=== PATIENT | male | born 1950 | race Caucasian/White ===

== ENCOUNTER 2016-10-09 10:40 | Inpatient (IN) | payer OTHER ==
[~2016-10-09] VITALS: Ht 177.8 cm; Wt 94.7 kg
[~2016-10-09 10:40] MED LIST: ALBUAER2 INH
[2016-10-09] MEDS ORDERED: FURO-85 PO (10:58)
[2016-10-09] MEDS ORDERED: MAGN400T6 PO (10:58)
[2016-10-09] MEDS ORDERED: ATEN-173 PO (10:58)
[2016-10-09] MEDS ORDERED: SIMV5TAB2 PO (10:58)
[2016-10-09] MEDS ORDERED: FENTANYL CITRATE INJ 50 MCG/1 ML 2 ML VIAL IV STA ×2 (11:09→13:35)
[2016-10-09 11:56] LABS: POINT OF CARE TROPONIN I < 0.030 ng/ml (0-0.045)
[2016-10-09 12:09] LABS: BASO % 0.2 %; BASO ABS # 0.02 K/uL (0-0.2); COMPLETE YES; IG% 0.2 %; LYMPH % 12.8 %; LYMPH ABS # 1.29 K/uL (1.2-3.4); MEAN CELL VOLUME 97.2 fL (80-100); MEAN CORPUSCULAR HEMOGLOBIN 29.9 pg (25-34); MEAN CORPUSCULAR HGB CONC 30.7 g/dl (32-36); MEAN PLATELET VOLUME 9.1 fL (7.4-10.4); MONO % 9.9 %; NEUT % 75.9 %; PLATELET COUNT 262 K/uL (130-400); RED BLOOD COUNT 4.32 M/uL (4.7-6.1); WHITE BLOOD COUNT 10.08 K/uL (4.8-10.8)
--- NOTE | 2016-10-09 12:13 | DIAGNOSTIC IMAGING REPORT ---
RIGHT RIBS UNILATERAL WITH PA CHEST CLINICAL HISTORY: ] Pain status post trauma COMPARISON STUDY: Chest x-ray dated 08/17/2009 FINDINGS: The erect chest reveals no pneumothorax. There is mild right hilar fullness. There are multiple bilateral pulmonary nodules. CT scanning is recommended in follow-up. No acute fractures are visualized. There is an old deformity the right sixth rib anteriorly. IMPRESSION: 1. No acute rib fractures identified 2. No evidence of pneumothorax 3. Multiple bilateral pulmonary nodules. CT scanning is recommended in follow-up. Electronically signed by: Sam Bradley M.D. 10/09/2016 12:12 PM Dictated Date/Time: 10/09/2016 12:08 PM
[2016-10-09 12:18] LABS: INR 1.2 (0.9-1.1); PARTIAL THROMBOPLASTIN RATIO 1.2; PROTHROMBIN TIME (PATIENT) 12.4 SECONDS (9.0-12.0)
[2016-10-09 12:42] LABS: CREATININE 0.58 mg/dl (0.60-1.40)
[2016-10-09 12:43] LABS: BUN/CREATININE RATIO 27.9 (10-20); CALCIUM 9.6 mg/dl (8.5-10.1); POTASSIUM 4.3 mmol/L (3.5-5.1)
[2016-10-09] MEDS ORDERED: OPTIRAY 320 IV PRN (12:45)
--- NOTE | 2016-10-09 15:14 | DIAGNOSTIC IMAGING REPORT ---
CT ANGIOGRAM OF THE CHEST CLINICAL HISTORY: Dyspnea. Fall with right-sided chest pain. COMPARISON STUDY: Chest CT dated 05/02/2010. TECHNIQUE: Following the IV administration of 93 cc of Optiray 320, CT angiogram of the chest was performed from the upper abdomen to the thoracic inlet utilizing the pulmonary embolus protocol. Images are reviewed in the axial, sagittal, and coronal planes. 3-D MIPS images are created and assessed. IV contrast was administered without complication. CT DOSE: 568.43 mGy.cm FINDINGS: Thyroid: Imaged portions of the thyroid gland are normal in size and attenuation. Thoracic aorta: There is atherosclerotic calcification of the thoracic aorta, which is normal in caliber and demonstrates standard 3-vessel arch anatomy. No dissection is seen. Pulmonary vasculature: The pulmonary trunk is markedly dilated, measuring 4.6 cm in diameter. This suggests pulmonary artery hypertension. There are filling defects within the left lower lobar pulmonary artery which extend in the segmental and subsegmental branches. This is consistent with pulmonary embolus. Segmental pulmonary emboli are also seen in the right lower lobe pulmonary artery on image #103. Heart: The heart is enlarged and without pericardial effusion. The coronary arteries are densely calcified. Lungs and pleural spaces: Emphysema is noted. Patchy airspace opacities are present in the left lower lobe. No pleural effusion is identified. Minimal secretions are seen in the trachea. There are numerous (greater than 30) irregular pulmonary and pleural-based nodules consistent with multifocal pulmonary metastatic disease. The largest lesion is present in the anterior right upper lobe adjacent to the pleura on image #209. This measures 3.8 x 1.9 cm adnexa appears to extend through the pleura. A pleural based lesion in the right upper lobe on image #217 measures 2.7 cm. Mediastinum: There are mildly enlarged mediastinal lymph nodes. The largest is seen in the AP window on image #193 and measures up to 1.3 cm in short axis. Annette: A right hilar lymph node/mass is seen on image #172 and measures 4.6 x 3.1 cm. No left hilar adenopathy is seen. Lower neck: There is no supraclavicular lymphadenopathy. Axillae: There is no axillary lymphadenopathy. Upper abdomen: A 1.9 cm cyst is seen in the upper pole of the right kidney. 1.5 cm cyst is seen in the upper pole of the left kidney. There is mild nodularity of the left adrenal gland. Skeletal structures: The skeletal structures are osteopenic. Degenerative changes seen throughout the thoracic spine. There is a permeative osteolytic lesion identified in the body of T5 with a mild pathologic fracture at this site. Tumor extends posteriorly from the T5 vertebral body and causes acquired compromise of the central canal. Osteolytic lesion is seen within the left transverse process of L1. There are osteolytic lesions with pathologic fracture seen involving the right posterior 11th rib and the left lateral 8th rib. Additional smaller osteolytic lesions are seen. IMPRESSION: 1. Findings are positive for pulmonary embolus. Small pulmonary emboli are seen within the distal left lower lobar pulmonary artery extending into segmental branches. A segmental pulmonary embolus is also seen within a branch of the right lower lobe pulmonary artery. 2. Cardiomegaly and advanced emphysema with evidence of pulmonary artery hypertension. 3. There are patchy airspace opacities at the left lung base. This could represent atelectasis versus a mild infectious/inflammatory pneumonitis. Clinical correlation will be required. 4. There are numerous (greater than 30) pulmonary and pleural-based lesions as above. The appearance is consistent with multifocal metastatic disease. 5. There is a 4.6 cm right hilar lymph node/perihilar mass. This could represent metastatic disease or a primary lesion. 6. Mildly enlarged mediastinal nodes are identified. 7. There are multiple osteolytic lesions identified consistent with metastatic disease. 8. A permeative osteolytic lesion is identified within the posterior aspect of T5. There is a mild pathologic compression fracture of T5, and tumor extends posteriorly from the T5 vertebral body with encroachment upon the central canal. 9. There are pathologic fractures of the right posterior 11th and the left lateral 8th ribs. 10. Additional findings as above. Electronically signed by: Marquez Cha M.D. 10/09/2016 3:13 PM Dictated Date/Time: 10/09/2016 2:52 PM
--- NOTE | 2016-10-09 17:02 | DIAGNOSTIC IMAGING REPORT ---
ULTRASOUND BILATERAL LOWER EXTREMITY VENOUS CLINICAL HISTORY: Hypoxia. COMPARISON STUDY: No priors. TECHNIQUE: Real-time, grayscale, and color Doppler sonography of the deep veins of the right and left lower extremity was performed from the inguinal crease to the calf. Compression and augmentation were utilized. FINDINGS: There is no sonographic evidence of acute deep venous thrombosis identified in the right or left lower extremity. Trace echogenic chronic thrombus is identified within the common femoral vein bilaterally. The common femoral, superficial femoral, and popliteal veins are patent and normally compressible bilaterally. The greater saphenous vein and the profunda femoris vein at the junction with the common femoral vein are clear in both legs. The visualized calf veins are patent bilaterally. There is a multiloculated popliteal cyst on the right. The loculations measure 3.6 x 1.6 x 3.3 cm and 3.1 x 1.5 x 2.4 cm. IMPRESSION: 1. There is no sonographic evidence of acute deep venous thrombosis identified in the right or left lower extremity. 2. Trace echogenic chronic thrombus is seen within the common femoral vein bilaterally. 3. Multiloculated right popliteal cyst. Electronically signed by: Marquez Cha M.D. 10/09/2016 5:01 PM Dictated Date/Time: 10/09/2016 4:59 PM
[2016-10-09] MEDS ORDERED: ONDANSETRON INJ 2 MG/ML 2 ML VIAL IV PRN (17:45)
[2016-10-09] MEDS ORDERED: ALUMINUM/MAGNESIUM/SIMETH (MAALOX MAX) 30 ML UDC PO PRN (17:45)
[2016-10-09] MEDS ORDERED: MAGNESIUM HYDROXIDE SUSP 30 ML UDC PO PRN (17:45)
[2016-10-09] MEDS ORDERED: POLYETHYLENE (MIRALAX) 17 GM PACK PO PRN (17:45)
[2016-10-09] MEDS ORDERED: ACETAMINOPHEN 325 MG TAB PO PRN (17:45)
[2016-10-09 17:51] VITALS: BP 131/80; PULSE 81; TEMP 36.9; O2SAT 87
--- NOTE | 2016-10-09 17:52 | EMERGENCY ROOM VISIT NOTE ---
History Report prepared by Elayneibdavid: Essie Wesley Under the Supervision of: Dr. Moo Aleman M.D. First contact with patient: 11:00 Chief Complaint: CHEST INJURY Stated Complaint: FELL-CHEST INJURIES, BREATHING/LOW OXYGEN History of Present Illness The patient is a 66 year old male who presents to the Emergency Room with complaints of constant right sided rib pain beginning a month and a half ago. The patient states that he fell a month and a half ago ago and hit his right side and his ribs on the wooden armrest of a love seat. The patient notes that the rib pain started right after the fall and it worsens when he moves. He states that 1 week ago he saw his doctor and had X-Rays that revealed no fractures. He reports that it did show early stage pneumonia in his left lung and he was put on Azithromycin. He complains of a productive cough with white phlegm that is sometimes yellow or green and labored breathing that he reports is secondary to rib pain. He denies any fever, chest tightness, chest pain, abdominal pain, vomiting, leg swelling, and leg pain. The patient states that he is on oxygen at home for COPD. Source of History: patient Onset: 1.5 months ago Position: other (right sided ribs) Timing: constant Modifying Factors (Worsening): movement Associated Symptoms: + cough, No fevers, No chest pain, No vomiting, No abdominal pain Note: He complains of labored breathing that he reports is secondary to rib pain. He denies any leg swelling, and leg pain. Review of Systems See HPI for pertinent positives & negatives. A total of 10 systems reviewed and were otherwise negative. Past Medical & Surgical Medical Problems: (1) COPD (chronic obstructive pulmonary disease) (2) Pneumonia (3) Pulmonary embolism, bilateral Family History No pertinent family history stated. Social History Smoking Status: Former Smoker Marital Status: Housing Status: lives with significant other Occupation Status: employed Current/Historical Medications Scheduled Atenolol (Tenormin), Unknown Dose PO DAILY Furosemide (Lasix), Unknown Dose PO DAILY Magnesium Oxide (Mag-Ox), 400 MG PO DAILY Simvastatin (Zocor), Unknown Dose PO DAILY Allergies Coded Allergies: No Known Allergies (Verified , 10/09/16) Physical Exam Vital Signs Date Time Temp Pulse Resp B/P (MAP) Pulse Ox O2 Delivery O2 Flow Rate FiO2 10/09/16 14:45 69 18 116/47 91 Nasal Cannula 4.0 10/09/16 13:49 71 18 101/67 91 Nasal Cannula 3.0 10/09/16 13:33 67 10/09/16 13:18 67 18 115/64 93 Nasal Cannula 3.0 10/09/16 11:30 95 Nasal Cannula 3.0 10/09/16 11:30 96 10/09/16 10:46 36.7 95 20 91/59 99 Nasal Cannula 3.0 Physical Exam Constitutional: Vital signs reviewed. Eyes: Pupils are equal round reactive to light. Conjunctiva are noninjected. ENT: Pharynx is clear without erythema or exudate. Mucous membranes are moist. Neck supple without meningeal signs. Respiratory: Clear to auscultation bilaterally. Breath sounds are equal bilaterally. Cardiovascular: Regular rate and rhythm. No rubs or gallops. GI: Soft, nondistended and nontender. Bowel sounds are present. Musculoskeletal: No peripheral edema. No lower extremity tenderness. Right lower anterior rib tenderness, no crepitus or flail segment. Integumentary: No cyanosis. Neurological: The patient is awake and alert. No focal deficits. Psychiatric: Normal affect. Medical Decision & Procedures ER Provider Diagnostic Interpretation: Radiology results as stated below per my review and the radiologist's interpretation: RIGHT RIBS UNILATERAL WITH PA CHEST FINDINGS: The erect chest reveals no pneumothorax. There is mild right hilar fullness. There are multiple bilateral pulmonary nodules. CT scanning is recommended in follow-up. No acute fractures are visualized. There is an old deformity the right sixth rib anteriorly. IMPRESSION: 1. No acute rib fractures identified 2. No evidence of pneumothorax 3. Multiple bilateral pulmonary nodules. CT scanning is recommended in follow-up. Electronically signed by: Sam Bradley M.D. 10/09/2016 12:12 PM Dictated Date/Time: 10/09/2016 12:[address] ANGIOGRAM OF THE CHEST FINDINGS: Thyroid: Imaged portions of the thyroid gland are normal in size and attenuation. Thoracic aorta: There is atherosclerotic calcification of the thoracic aorta, which is normal in caliber and demonstrates standard 3-vessel arch anatomy. No dissection is seen. Pulmonary vasculature: The pulmonary trunk is markedly dilated, measuring 4.6 cm in diameter. This suggests pulmonary artery hypertension. There are filling defects within the left lower lobar pulmonary artery which extend in the segmental and subsegmental branches. This is consistent with pulmonary embolus. Segmental pulmonary emboli are also seen in the right lower lobe pulmonary artery on image #103. Heart: The heart is enlarged and without pericardial effusion. The coronary arteries are densely calcified. Lungs and pleural spaces: Emphysema is noted. Patchy airspace opacities are present in the left lower lobe. No pleural effusion is identified. Minimal secretions are seen in the trachea. There are numerous (greater than 30) irregular pulmonary and pleural-based nodules consistent with multifocal pulmonary metastatic disease. The largest lesion is present in the anterior right upper lobe adjacent to the pleura on image #209. This measures 3.8 x 1.9 cm adnexa appears to extend through the pleura. A pleural based lesion in the right upper lobe on image #217 measures 2.7 cm. Mediastinum: There are mildly enlarged mediastinal lymph nodes. The largest is seen in the AP window on image #193 and measures up to 1.3 cm in short axis. Annette: A right hilar lymph node/mass is seen on image #172 and measures 4.6 x 3.1 cm. No left hilar adenopathy is seen. Lower neck: There is no supraclavicular lymphadenopathy. Axillae: There is no axillary lymphadenopathy. Upper abdomen: A 1.9 cm cyst is seen in the upper pole of the right kidney. 1.5 cm cyst is seen in the upper pole of the left kidney. There is mild nodularity of the left adrenal gland. Skeletal structures: The skeletal structures are osteopenic. Degenerative changes seen throughout the thoracic spine. There is a permeative osteolytic lesion identified in the body of T5 with a mild pathologic fracture at this site. Tumor extends posteriorly from the T5 vertebral body and causes acquired compromise of the central canal. Osteolytic lesion is seen within the left transverse process of L1. There are osteolytic lesions with pathologic fracture seen involving the right posterior 11th rib and the left lateral 8th rib. Additional smaller osteolytic lesions are seen. IMPRESSION: 1. Findings are positive for pulmonary embolus. Small pulmonary emboli are seen within the distal left lower lobar pulmonary artery extending into segmental branches. A segmental pulmonary embolus is also seen within a branch of the right lower lobe pulmonary artery. 2. Cardiomegaly and advanced emphysema with evidence of pulmonary artery hypertension. 3. There are patchy airspace opacities at the left lung base. This could represent atelectasis versus a mild infectious/inflammatory pneumonitis. Clinical correlation will be required. 4. There are numerous (greater than 30) pulmonary and pleural-based lesions as above. The appearance is consistent with multifocal metastatic disease. 5. There is a 4.6 cm right hilar lymph node/perihilar mass. This could represent metastatic disease or a primary lesion. 6. Mildly enlarged mediastinal nodes are identified. 7. There are multiple osteolytic lesions identified consistent with metastatic disease. 8. A permeative osteolytic lesion is identified within the posterior aspect of T5. There is a mild pathologic compression fracture of T5, and tumor extends posteriorly from the T5 vertebral body with encroachment upon the central canal. 9. There are pathologic fractures of the right posterior 11th and the left lateral 8th ribs. 10. Additional findings as above. Electronically signed by: Marquez Cha M.D. 10/09/2016 3:13 PM Dictated Date/Time: 10/09/2016 2:52 PM ULTRASOUND BILATERAL LOWER EXTREMITY VENOUS TECHNIQUE: Real-time, grayscale, and color Doppler sonography of the deep veins of the right and left lower extremity was performed from the inguinal crease to the calf. Compression and augmentation were utilized. FINDINGS: There is no sonographic evidence of acute deep venous thrombosis identified in the right or left lower extremity. Trace echogenic chronic thrombus is identified within the common femoral vein bilaterally. The common femoral, superficial femoral, and popliteal veins are patent and normally compressible bilaterally. The greater saphenous vein and the profunda femoris vein at the junction with the common femoral vein are clear in both legs. The visualized calf veins are patent bilaterally. There is a multiloculated popliteal cyst on the right. The loculations measure 3.6 x 1.6 x 3.3 cm and 3.1 x 1.5 x 2.4 cm. IMPRESSION: 1. There is no sonographic evidence of acute deep venous thrombosis identified in the right or left lower extremity. 2. Trace echogenic chronic thrombus is seen within the common femoral vein bilaterally. 3. Multiloculated right popliteal cyst. Electronically signed by: Marquez Cha M.D. 10/09/2016 5:01 PM Dictated Date/Time: 10/09/2016 4:59 PM Laboratory Results 10/09/16 11:30 Red Blood Count 4.32, Mean Corpuscular Volume 97.2, Mean Corpuscular Hemoglobin 29.9, Mean Corpuscular Hemoglobin Concent 30.7, Mean Platelet Volume 9.1, Neutrophils (%) (Auto) 75.9, Lymphocytes (%) (Auto) 12.8, Monocytes (%) (Auto) 9.9, Eosinophils (%) (Auto) 1.0, Basophils (%) (Auto) 0.2, Neutrophils # (Auto) 7.65, Lymphocytes # (Auto) 1.29, Monocytes # (Auto) 1.00, Eosinophils # (Auto) 0.10, Basophils # (Auto) 0.02 10/09/16 11:30 Test 10/09/16 11:30 10/09/16 11:37 10/09/16 13:22 White Blood Count 10.08 K/uL (4.8-10.8) Red Blood Count 4.32 M/uL (4.7-6.1) Hemoglobin 12.9 g/dL (14.0-18.0) Hematocrit 42.0 % (42-52) Mean Corpuscular Volume 97.2 fL (80-100) Mean Corpuscular Hemoglobin 29.9 pg (25-34) Mean Corpuscular Hemoglobin Concent 30.7 g/dl (32-36) Platelet Count 262 K/uL (130-400) Mean Platelet Volume 9.1 fL (7.4-10.4) Neutrophils (%) (Auto) 75.9 % Lymphocytes (%) (Auto) 12.8 % Monocytes (%) (Auto) 9.9 % Eosinophils (%) (Auto) 1.0 % Basophils (%) (Auto) 0.2 % Neutrophils # (Auto) 7.65 K/uL (1.4-6.5) Lymphocytes # (Auto) 1.29 K/uL (1.2-3.4) Monocytes # (Auto) 1.00 K/uL (0.11-0.59) Eosinophils # (Auto) 0.10 K/uL (0-0.5) Basophils # (Auto) 0.02 K/uL (0-0.2) RDW Standard Deviation 46.2 fL (36.4-46.3) RDW Coefficient of Variation 13.0 % (11.5-14.5) Immature Granulocyte % (Auto) 0.2 % Immature Granulocyte # (Auto) 0.02 K/uL (0.00-0.02) Prothrombin Time 12.4 SECONDS (9.0-12.0) Prothromb Time International Ratio 1.2 (0.9-1.1) Activated Partial Thromboplast Time 31.7 SECONDS (21.0-31.0) Partial Thromboplastin Ratio 1.2 Anion Gap 5.0 mmol/L (3-11) Est Creatinine Clear Calc Drug Dose 147.4 ml/min Estimated GFR () 123.1 Estimated GFR (Non- 106.2 BUN/Creatinine Ratio 27.9 (10-20) Calcium Level 9.6 mg/dl (8.5-10.1) Prostate Specific Antigen 1.450 ng/ml (0.000-4.000) Bedside D-Dimer > 450 ng/mlFEU (0-450) Bedside Troponin I < 0.030 ng/ml (0-0.045) Laboratory results as reviewed by me. Medications Administered Medications (Trade) Dose Ordered Sig/Abbi Route Start Time Stop Time Status Last Admin Dose Admin Fentanyl Citrate (Fentanyl Inj) 50 mcg NOW STAT IV 10/09/16 11:09 10/09/16 11:12 DC 10/09/16 11:36 50 MCG Fentanyl Citrate (Fentanyl Inj) 50 mcg NOW STAT IV 10/09/16 13:35 10/09/16 13:36 DC 10/09/16 13:51 50 MCG ECG Indication: other (chest injury) Rate (beats per minute): 67 Rhythm: sinus rhythm Findings: PAC, T-wave inversion (V1-V4), ST elevation (<1mm in the inferior leads) Comparison ECG Date: 08/17/09 Change: T wave inversion present on previous. EKG#2: Sinus Rhythm, 68, PAC, Persistent T wave inversions, Minimal ST elevation in inferior leads ED Course 1100: The patient was evaluated in room A2. A complete history and physical exam was performed. 1109: Fentanyl Inj 50mcg IV. 1211: I reevaluated the patient. He states that his ribs are feeling better after the pain medications. He denies having any chest discomfort other than the rib pain and has no pressure or tightness. I discussed his test results. 1330: I reevaluated the patient. He would like more pain medication. 1335: Fentanyl Inj 50mcg IV. 1540: I discussed the test results with the patient. 1544: [place] [facility] [place] discussed the patient and his results. The patient will be further evaluated by Dr. Palacios. He would like to hold off on Heparin and he requested that the patient gets a doppler. Medical Decision This is a 66-year-old male presents with chest pain and shortness of breath after a fall. Differential diagnosis includes rib fracture, contusion, pneumothorax, hemothorax, pulmonary embolism, [place]. I did perform a limited focused review of portions of the patient's old chart on the electronic medical record. The patient has had no recent pertinent visits to this hospital. Medication Reconciliation: I attest that I have personally reviewed the patient' s current medication list. Blood Pressure Screening: Patient was found to have hypotensive blood pressure on screening and does not require follow-up. I did evaluate the patient as noted above. He is presenting with right-sided rib pain after falling several weeks ago. He has persistent pain and increased shortness of breath despite being on antibiotics recently for presumed pneumonia. IV access was established. The patient was placed on a continuous rn cardiac rehab. He is slightly hypotensive but his pressure improved without any direct intervention. He was given IV fentanyl for his pain. I did order and personally review the patient's 12-lead EKG and chest x-ray as described above. His 12-lead EKG was concerning for some slight ST elevations in the inferior leads. He does not complain of any worrisome chest pain to suggest acute ischemia. His pain is sharp and reproducible on the right side. I did repeat another twelve-lead EKG which continues to show the slight ST elevations. I did order and review the patient's blood work as noted in the electronic medical record. Troponin is negative 2. I was concerned about a pulmonary embolism and ordered a d-dimer which was elevated. I did order a CT of the chest. I did review the images myself as well as the radiology report as described above. Unfortunately he has bilateral PEs as well as what appears to be metastatic disease to his lungs and his thoracic spine and ribs. I did discuss the test results with the patient and his and offered my condolences. I did recommend admission and treatment with IV blood thinners. I did discuss the case with Dr. Kaur and the case management assistant. He did wish for me to hold off on the anticoagulation at this time. He did request Dopplers of lower extremities which I ordered. He was admitted to the hospital. Vital signs remained stable in the emergency department. Consults Time Called: 1544 Consulting Physician: Dr. Palac[place] [facility] [place]ed Call: [address] [place]ac[place] of [facility] [place] We discussed the patient and his results. The patient will be further evaluated by Dr. Palacios. He would like to hold off on Heparin and he requested that the patient gets a doppler. Impression Primary Impression: Bilateral pulmonary embolism Additional Impressions: Pathological fracture of rib of right side Non-traumatic compression fracture of T5 thoracic vertebra Osteolytic 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 Pulmonary nodules Mediastinal lymphadenopathy Scribe Attestation The scribe's documentation has been prepared under my direct and personally reviewed by me in its entirety. I confirm that the note above accurately reflects all work, treatment, procedures, and medical decision making performed by me. Departure Information Dispostion Being Evaluated By Hospitalist Ann Gordon M.D. (PCP) Patient Instructions My [facility] Problem Qualifiers Additional Impressions: Non-traumatic compression fracture of T5 thoracic vertebra Encounter type: initial encounter Qualified Codes: M48.54XA - Collapsed vertebra, not elsewhere classified, thoracic region, initial encounter for fracture
[2016-10-09 17:53] VITALS: BP 131/80; PULSE 81; TEMP 36.9; O2SAT 89; Ht 177.8 cm; Wt 94.7 kg
[2016-10-09] MEDS ORDERED: SODIUM CHLORIDE 0.9% 1000ML 1,000 ML IV SCH (18:00)
[2016-10-09] MEDS ORDERED: CEFTRIAXONE SOD INJ 1,000 MG in DEXTROSE 5% 50ML 50 ML IV SCH (18:30)
[2016-10-09] MEDS ORDERED: HEPARIN IV BOLUS 6,000 UNIT in SYRINGE 0 ML IV ONE (18:45)
--- NOTE | 2016-10-09 18:47 | History and Physical ---
History & Physical Date & Time of Service: Oct 09, 2016 at 18:13 Chief Complaint: Pulmonary Embolism, Bilateral Primary Care Physician: Ann Olivas M.D. History of Present Illness Source: patient, spouse, hospital records This is a 66 y/o male with a history of COPD, NJ s/p stents (3), HLD, and CHF who presented to the ED on 10/09 with right rib pain and shortness of breath. Patient states that he fell on the armrest of a love seat back in August, hurting his right side. Patient has complained of right rib pain ever since the fall. He saw his primary care provider 1 week ago and obtained a chest x- ray that apparently did not show any fractures but did show pneumonia. Patient was treated with a Z-Rubén which he has since completed, although he still complains of productive cough and shortness of breath. The patient states that the pain in his right lateral ribs is constant. He rates the pain as 6 or 7 out of 10 dull pain at rest, and the pain becomes more severe and sharp with certain movements, deep breaths, or coughing. The pain radiates anteriorly towards the center of his chest. The patient denies fevers, chills, sweats, palpitations, claudication, wheezing, nausea, vomiting, abdominal pain, dysuria , hematuria, urinary retention, paralysis, weakness, numbness and tingling. Past Medical/Surgical History Medical Problems: (1) COPD (chronic obstructive pulmonary disease) Status: Chronic H/o NJ s/p stents. Pt had 1 stent placed at time of NJ, then later 2 additional stents in same artery during repeat cath. Pt unsure of which artery or what year this occurred. CHF HLD Family History Cancer Social History Smoking Status: Former Smoker (quit 2 years ago, smoked for about 40 years, about 1-1.5 packs a day) Smokeless Tobacco Use: No Alcohol Use: occasionally Drug Use: none Marital Status: Housing status: lives with significant other Occupational Status: employed Immunizations History of Influenza Vaccine: No History of Tetanus Vaccine?: No History of Pneumococcal: No History of Hepatitis B Vaccine: No Multi-Drug Resistant Organisms History of MDRO: No Allergies Coded Allergies: No Known Allergies (Verified , 10/09/16) Home Medications Scheduled Atenolol (Tenormin), Unknown Dose PO DAILY Furosemide (Lasix), Unknown Dose PO DAILY Magnesium Oxide (Mag-Ox), 400 MG PO DAILY Simvastatin (Zocor), Unknown Dose PO DAILY Review of Systems Constitutional: No fever, No chills, No sweats Eyes: No worsening of vision, No eye pain, No diplopia ENT: No hearing loss, No sore throat, No trouble swallowing Respiratory: + cough, + sputum, + shortness of breath, No wheezing Cardiovascular: + chest pain, No claudication, No palpitations Abdomen: No pain, No nausea, No vomiting Musculoskeletal: + joint pain (right lateral ribs), No muscle pain, No calf pain Genitourinary - Male: No hematuria, No dysuria, No urinary retention Neurologic: No paralysis, No weakness, No numbness/tingling Integumentary: No rash, No itch, No color change Physical Exam Vital Signs Date Time Temp Pulse Resp B/P (MAP) Pulse Ox O2 Delivery O2 Flow Rate FiO2 10/09/16 17:51 36.9 81 21 131/80 (97) 87 Nasal Cannula 3.0 10/09/16 17:25 73 16 114/57 92 Nasal Cannula 3.0 10/09/16 16:40 72 19 102/55 90 Room Air 3.0 10/09/16 14:45 69 18 116/47 91 Nasal Cannula 4.0 10/09/16 13:49 71 18 101/67 91 Nasal Cannula 3.0 10/09/16 13:33 67 10/09/16 13:18 67 18 115/64 93 Nasal Cannula 3.0 10/09/16 11:30 95 Nasal Cannula 3.0 10/09/16 11:30 96 10/09/16 10:46 36.7 95 20 91/59 99 Nasal Cannula 3.0 General appearance: Well-developed, well-nourished, no apparent distress Head: Normocephalic, atraumatic Eyes: Normal inspection, PERRL, EOMI ENT: Normal ENT inspection, hearing grossly normal, pharynx normal Neck: Supple, no JVD, trachea midline Respiratory/Chest: +Diminished breath sounds throughout. wheezing in bases. Lungs clear to auscultation, no respiratory distress Cardiovascular: Regular rate & rhythm, no gallop, no murmur Abdomen/GI: Normal bowel sounds, non-tender, soft Extremities/Musculoskeletal: +Chronic venous stasis changes. No calf tenderness, no pedal edema Neurological/Psych: Alert, normal mood/affect, oriented x 3 Skin: Normal color, warm/dry, no rash Diagnostics Laboratory Results Results Past 24 Hours Test 10/09/16 11:30 10/09/16 11:37 10/09/16 13:22 Range/Units White Blood Count 10.08 4.8-10.8 K/uL Red Blood Count 4.32 4.7-6.1 M/uL Hemoglobin 12.9 14.0-18.0 g/dL Hematocrit 42.0 42-52 % Mean Corpuscular Volume 97.2 80-100 fL Mean Corpuscular Hemoglobin 29.9 25-34 pg Mean Corpuscular Hemoglobin Concent 30.7 32-36 g/dl Platelet Count 262 130-400 K/uL Mean Platelet Volume 9.1 7.4-10.4 fL Neutrophils (%) (Auto) 75.9 % Lymphocytes (%) (Auto) 12.8 % Monocytes (%) (Auto) 9.9 % Eosinophils (%) (Auto) 1.0 % Basophils (%) (Auto) 0.2 % Neutrophils # (Auto) 7.65 1.4-6.5 K/uL Lymphocytes # (Auto) 1.29 1.2-3.4 K/uL Monocytes # (Auto) 1.00 0.11-0.59 K/uL Eosinophils # (Auto) 0.10 0-0.5 K/uL Basophils # (Auto) 0.02 0-0.2 K/uL RDW Standard Deviation 46.2 36.4-46.3 fL RDW Coefficient of Variation 13.0 11.5-14.5 % Immature Granulocyte % (Auto) 0.2 % Immature Granulocyte # (Auto) 0.02 0.00-0.02 K/uL Prothrombin Time 12.4 9.0-12.0 SECONDS Prothromb Time International Ratio 1.2 0.9-1.1 Activated Partial Thromboplast Time 31.7 21.0-31.0 SECONDS Partial Thromboplastin Ratio 1.2 Sodium Level 138 136-145 mmol/L Potassium Level 4.3 3.5-5.1 mmol/L Chloride Level 92 98-107 mmol/L Carbon Dioxide Level 41 21-32 mmol/L Anion Gap 5.0 3-11 mmol/L Blood Urea Nitrogen 16 7-18 mg/dl Creatinine 0.58 0.60-1.40 mg/dl Est Creatinine Clear Calc Drug Dose 147.4 ml/min Estimated GFR () 123.1 Estimated GFR (Non- 106.2 BUN/Creatinine Ratio 27.9 10-20 Random Glucose 93 70-99 mg/dl Calcium Level 9.6 8.5-10.1 mg/dl Prostate Specific Antigen 1.450 0.000-4.000 ng/ml Bedside D-Dimer > 450 0-450 ng/mlFEU Bedside Troponin I < 0.030 < 0.030 0-0.045 ng/ml Diagnostic Radiology Reviewed the following studies and agree with interpretation as follows: Patient Name: CHELSEA LEVY Unit Number: [id number] Dictated: 10/09/161207 Transcribed: 10/09/161207 ARG Printed Date/Time: [~ rep prt dt]/[~ rep prt tm] [~ rep ct labl] - [~ rep ct ivnm] [facility] Radiology Department [place] [id number] Dictated: 10/09/161207 Transcribed: 10/09/161207 ARG Printed Date/Time: [~ rep prt dt]/[~ rep prt tm] [~ rep ct labl] - [~ rep ct ivnm] Patient: CHELSEA LEVY Address1: [address] [place] [address] Rec: [id number] Address2: Acct ID: [id number] [facility] Zip: [place] [address] Date: 1950 Sex: M Room/Bed: Ref Phy: Ann Olivas M.D. SC: ROXANN Sousa Phy: Report #: [id number] Collette Phy: Ann Olivas M.D. Test: [facility] Admit Phy: [employer] Repairer: TEODORA Interpreting Phy: Sam Bradley M.D. Diagnosis: FELL-CHEST INJURIES, BREATHING/LOW OXYGEN Ordering Phy: Moo Aleman MD Service Date: 10/09/16 Admit Date: 10/09/16 MNE: PWRSCRIBE CONF: DICTATED BY: Sam Bradley M.D.]] CC: Moo Aleman M.D. Ann Olivas M.D. Endcc: [~ rep ct add3]] RIGHT RIBS UNILATERAL WITH PA CHEST CLINICAL HISTORY: ] Pain status post trauma COMPARISON STUDY: Chest x-ray dated 08/17/2009 FINDINGS: The erect chest reveals no pneumothorax. There is mild right hilar fullness. There are multiple bilateral pulmonary nodules. CT scanning is recommended in follow-up. No acute fractures are visualized. There is an old deformity the right sixth rib anteriorly. IMPRESSION: 1. No acute rib fractures identified 2. No evidence of pneumothorax 3. Multiple bilateral pulmonary nodules. CT scanning is recommended in follow-up. Electronically signed by: Sam Bradley M.D. 10/09/2016 12:12 PM Dictated Date/Time: 10/09/2016 12:08 PM The status of this report is Signed. Draft = Not yet reviewed or approved by Radiologist. Signed = Reviewed and approved by Radiologist. <AttendingPhy></AttendingPhy> <FamilyPhy>Ann Olivas M.D.</FamilyPhy> <PrimaryPhy>Ann Olivas M.D.</PrimaryPhy> <UnitNumber>[id number]</ UnitNumber> <VisitNumber>[id number]</VisitNumber> <PatientName>CHELSEA LEVY </PatientName> <DateOfBirth>1950</DateOfBirth> <Location>[facility]</Location> <ServiceDate>10/09/16</ServiceDate> <MNE>ESINDI</MNE> <OrderingPhy>Moo Aleman MD</OrderingPhy> <OrderingPhyMNE>f rep ord dr harper</OrderingPhyMNE> < DictatingPhyMNE>f rep dict dr harper</DictatingPhyMNE> <CCListMNE>f rep ct mne</ CCListMNE> <AdmittingPhyMNE>f pt admit dr harper</AdmittingPhyMNE> <AttendingPhyMNE >f pt attend dr harper</AttendingPhyMNE> <ConsultingPhyMNE>f pt consult dr harper</ConsultingPhyMNE> <FamilyPhyMNE>f pt fam dr harper</FamilyPhyMNE> <OtherPhyMNE>f pt other dr harper</OtherPhyMNE> < PrimaryPhyMNE>f pt prim care dr harper</PrimaryPhyMNE> <ReferringPhyMNE>f pt referring dr harper</ReferringPhyMNE> Patient Name: CHELSEA LEVY Unit Number: [id number] Dictated: 10/09/161451 Transcribed: 10/09/161451 EV Printed Date/Time: [~ rep prt dt]/[~ rep prt tm] [~ rep ct labl] - [~ rep ct ivnm] [facility] [place] [address] Dictated: 10/09/161451 Transcribed: 10/09/161451 EV Printed Date/Time: [~ rep prt dt]/[~ rep prt tm] [~ rep ct labl] - [~ rep ct ivnm] Patient: CHELSEA LEVY Address1: [address] [place] [address] Rec: [id number] Address2: Acct ID: [id number] [facility] Zip: [place] [address] Date: 1950 Sex: M Room/Bed: Ref Phy: Ann Olivas M.D. SC: ROXANN Sousa Phy: Report #: [id number] Collette Phy: Ann Olivas M.D. Test: [facility] Admit Phy: [employer] Repairer: ELIZABETH Interpreting Phy: Marquez Cha M.D. Diagnosis: FELL-CHEST INJURIES, BREATHING/LOW OXYGEN Ordering Phy: Moo Aleman MD Service Date: 10/09/16 Admit Date: 10/09/16 MNE: PWRSCRIBE CONF: DICTATED BY: Marquez Cah M.D.]] CC: Moo Aleman M.D. Delozier, Jennifer L., M.D. Endcc: [~ rep ct add3]] CT ANGIOGRAM OF THE CHEST CLINICAL HISTORY: Dyspnea. Fall with right-sided chest pain. COMPARISON STUDY: Chest CT dated 05/02/2010. TECHNIQUE: Following the IV administration of 93 cc of Optiray 320, CT angiogram of the chest was performed from the upper abdomen to the thoracic inlet utilizing the pulmonary embolus protocol. Images are reviewed in the axial, sagittal, and coronal planes. 3-D MIPS images are created and assessed. IV contrast was administered without complication. CT DOSE: 568.43 mGy.cm FINDINGS: Thyroid: Imaged portions of the thyroid gland are normal in size and attenuation. Thoracic aorta: There is atherosclerotic calcification of the thoracic aorta, which is normal in caliber and demonstrates standard 3-vessel arch anatomy. No dissection is seen. Pulmonary vasculature: The pulmonary trunk is markedly dilated, measuring 4.6 cm in diameter. This suggests pulmonary artery hypertension. There are filling defects within the left lower lobar pulmonary artery which extend in the segmental and subsegmental branches. This is consistent with pulmonary embolus. Segmental pulmonary emboli are also seen in the right lower lobe pulmonary artery on image #103. Heart: The heart is enlarged and without pericardial effusion. The coronary arteries are densely calcified. Lungs and pleural spaces: Emphysema is noted. Patchy airspace opacities are present in the left lower lobe. No pleural effusion is identified. Minimal secretions are seen in the trachea. There are numerous (greater than 30) irregular pulmonary and pleural-based nodules consistent with multifocal pulmonary metastatic disease. The largest lesion is present in the anterior right upper lobe adjacent to the pleura on image #209. This measures 3.8 x 1.9 cm adnexa appears to extend through the pleura. A pleural based lesion in the right upper lobe on image #217 measures 2.7 cm. Mediastinum: There are mildly enlarged mediastinal lymph nodes. The largest is seen in the AP window on image #193 and measures up to 1.3 cm in short axis. Annette: A right hilar lymph node/mass is seen on image #172 and measures 4.6 x 3.1 cm. No left hilar adenopathy is seen. Lower neck: There is no supraclavicular lymphadenopathy. Axillae: There is no axillary lymphadenopathy. Upper abdomen: A 1.9 cm cyst is seen in the upper pole of the right kidney. 1.5 cm cyst is seen in the upper pole of the left kidney. There is mild nodularity of the left adrenal gland. Skeletal structures: The skeletal structures are osteopenic. Degenerative changes seen throughout the thoracic spine. There is a permeative osteolytic lesion identified in the body of T5 with a mild pathologic fracture at this site. Tumor extends posteriorly from the T5 vertebral body and causes acquired compromise of the central canal. Osteolytic lesion is seen within the left transverse process of L1. There are osteolytic lesions with pathologic fracture seen involving the right posterior 11th rib and the left lateral 8th rib. Additional smaller osteolytic lesions are seen. IMPRESSION: 1. Findings are positive for pulmonary embolus. Small pulmonary emboli are seen within the distal left lower lobar pulmonary artery extending into segmental branches. A segmental pulmonary embolus is also seen within a branch of the right lower lobe pulmonary artery. 2. Cardiomegaly and advanced emphysema with evidence of pulmonary artery hypertension. 3. There are patchy airspace opacities at the left lung base. This could represent atelectasis versus a mild infectious/inflammatory pneumonitis. Clinical correlation will be required. 4. There are numerous (greater than 30) pulmonary and pleural-based lesions as above. The appearance is consistent with multifocal metastatic disease. 5. There is a 4.6 cm right hilar lymph node/perihilar mass. This could represent metastatic disease or a primary lesion. 6. Mildly enlarged mediastinal nodes are identified. 7. There are multiple osteolytic lesions identified consistent with metastatic disease. 8. A permeative osteolytic lesion is identified within the posterior aspect of T5. There is a mild pathologic compression fracture of T5, and tumor extends posteriorly from the T5 vertebral body with encroachment upon the central canal. 9. There are pathologic fractures of the right posterior 11th and the left lateral 8th ribs. 10. Additional findings as above. Electronically signed by: Marquez Cha M.D. 10/09/2016 3:13 PM Dictated Date/Time: 10/09/2016 2:52 PM The status of this report is Signed. Draft = Not yet reviewed or approved by Radiologist. Signed = Reviewed and approved by Radiologist. <AttendingPhy></AttendingPhy> <FamilyPhy>Ann Olivas M.D.</FamilyPhy> <PrimaryPhy>Ann Olivas M.D.</PrimaryPhy> <UnitNumber>[id number]</ UnitNumber> <VisitNumber>[id number]</VisitNumber> <PatientName>CHELSEA LEVY </PatientName> <DateOfBirth>1950</DateOfBirth> <Location>[facility]</Location> <ServiceDate>10/09/16</ServiceDate> <MNE>ESINDI</MNE> <OrderingPhy>Moo Aleman MD</OrderingPhy> <OrderingPhyMNE>f rep ord dr harper</OrderingPhyMNE> < DictatingPhyMNE>f rep dict dr harper</DictatingPhyMNE> <CCListMNE>f rep ct mne</ CCListMNE> <AdmittingPhyMNE>f pt admit dr harper</AdmittingPhyMNE> <AttendingPhyMNE >f pt attend dr harper</AttendingPhyMNE> <ConsultingPhyMNE>f pt consult dr harper</ConsultingPhyMNE> <FamilyPhyMNE>f pt fam dr harper</FamilyPhyMNE> <OtherPhyMNE>f pt other dr harper</OtherPhyMNE> < PrimaryPhyMNE>f pt prim care dr harper</PrimaryPhyMNE> <ReferringPhyMNE>f pt referring dr harper</ReferringPhyMNE> Patient Name: CHELSEA LEVY Unit Number: [id number] Dictated: 10/09/161658 Transcribed: 10/09/161658 EV Printed Date/Time: [~ rep prt dt]/[~ rep prt tm] [~ rep ct labl] - [~ rep ct ivnm] [facility] [place] [address] Dictated: 10/09/161658 Transcribed: 10/09/161658 EV Printed Date/Time: [~ rep prt dt]/[~ rep prt tm] [~ rep ct labl] - [~ rep ct ivnm] Patient: CHELSEA LEVY Address1: [address] [facility] [facility] Rec: [id number] Address2: Acct ID: [id number] [facility] Zip: [place] [address] Date: 1950 Sex: M Room/Bed: Ref Phy: Ann Olivas M.D. SC: ROXANN Att Phy: Report #: [id number] Collette Phy: Ann Olivas M.D. Test: [facility] Admit Phy: [employer]ed [employer] Repairer: DORIS Interpreting Phy: Marquez Cha M.D. Diagnosis: FELL-CHEST INJURIES, BREATHING/LOW OXYGEN Ordering Phy: Moo Aleman MD Service Date: 10/09/16 Admit Date: 10/09/16 MNE: PWRSCRIBE CONF: DICTATED BY: Marquez Cha M.D.]] CC: Moo Aleman M.D. Delozier, Jennifer L., M.D. Endcc: [~ rep ct add3]] ULTRASOUND BILATERAL LOWER EXTREMITY VENOUS CLINICAL HISTORY: Hypoxia. COMPARISON STUDY: No priors. TECHNIQUE: Real-time, grayscale, and color Doppler sonography of the deep veins of the right and left lower extremity was performed from the inguinal crease to the calf. Compression and augmentation were utilized. FINDINGS: There is no sonographic evidence of acute deep venous thrombosis identified in the right or left lower extremity. Trace echogenic chronic thrombus is identified within the common femoral vein bilaterally. The common femoral, superficial femoral, and popliteal veins are patent and normally compressible bilaterally. The greater saphenous vein and the profunda femoris vein at the junction with the common femoral vein are clear in both legs. The visualized calf veins are patent bilaterally. There is a multiloculated popliteal cyst on the right. The loculations measure 3.6 x 1.6 x 3.3 cm and 3.1 x 1.5 x 2.4 cm. IMPRESSION: 1. There is no sonographic evidence of acute deep venous thrombosis identified in the right or left lower extremity. 2. Trace echogenic chronic thrombus is seen within the common femoral vein bilaterally. 3. Multiloculated right popliteal cyst. Electronically signed by: Marquez Cha M.D. 10/09/2016 5:01 PM Dictated Date/Time: 10/09/2016 4:59 PM The status of this report is Signed. Draft = Not yet reviewed or approved by Radiologist. Signed = Reviewed and approved by Radiologist. <AttendingPhy></AttendingPhy> <FamilyPhy>Ann Olivas M.D.</FamilyPhy> <PrimaryPhy>Ann Olivas M.D.</PrimaryPhy> <UnitNumber>[id number]</ UnitNumber> <VisitNumber>[id number]</VisitNumber> <PatientName>CHELSEA LEVY </PatientName> <DateOfBirth>1950</DateOfBirth> <Location>[facility]</Location> <ServiceDate>10/09/16</ServiceDate> <MNE>ESINDI</MNE> <OrderingPhy>Moo Aleman MD</OrderingPhy> <OrderingPhyMNE>f rep ord dr harper</OrderingPhyMNE> < DictatingPhyMNE>f rep dict dr harper</DictatingPhyMNE> <CCListMNE>f rep ct sulye</ CCListMNE> <AdmittingPhyMNE>f pt admit dr harper</AdmittingPhyMNE> <AttendingPhyMNE >f pt attend dr harper</AttendingPhyMNE> <ConsultingPhyMNE>f pt consult dr harper</ConsultingPhyMNE> <FamilyPhyMNE>f pt fam dr harper</FamilyPhyMNE> <OtherPhyMNE>f pt other dr harper</OtherPhyMNE> < PrimaryPhyMNE>f pt prim care dr harper</PrimaryPhyMNE> <ReferringPhyMNE>f pt referring dr harper</ReferringPhyMNE> EKG Reviewed EKG and agree with interpretation as follows: 67 bpm, sinus rhythm, PACs, T wave inversions V1-V4 (old), inferior ST elevations Impression Assessment and Plan 66 y/o male with a history of COPD, NJ s/p stents (3), HLD, and CHF who presented to the ED on 10/09 with right rib pain and shortness of breath. Patient is not a tachycardia and hypertension. D-dimer check which was elevated. CTA revealed bilateral PEs, LLL pneumonia, pathological rib fractures and other findings that are concerning for metastatic disease. Venous doppler of lower extremities showed no acute DVTs however there is a chronic thrombus in the common femoral vein bilaterally. EKG showed persistent T-wave inversions and inferior ST elevations. POC troponin negative x 2. Bilateral PE -Admit to telemetry -Heparin drip -O2 by protocol -ST elevations likely secondary to heart strain due to PE. Troponins negative -Repeat 3rd troponin in 8 hours -EKG prn with chest pain and q am LLL PNA -Rocephin 1 gm IV qd and azithromycin 500 mg IV qd -Duonebs QIDR and q2h prn SOB/wheezing Hypotension -IVF with NSS at 125 cc/hr x 1 liter. Use IVF with caution due to h/o CHF. Lung/bone metastasis, unknown primary -Consult pulmonary, appreciate recs -PSA WNL -Check liver profile -Check CT abdomen/pelvis to look for primary source COPD--pt uses 3L NC continuous oxygen at home -O2 by protocol H/o NJ and stents -Continue atenolol 25 mg PO qd. Pt is unsure of dosage. No pharmacy listed and could not access outpt records ([facility]). Meds will need reconciliation. will bring in pill bottles tomorrow HLD -Continue simvastatin 5 mg PO qd. Pt is unsure of dosage, needs rec as above CHF, unknown systolic vs diastolic -Hold Lasix for now DVT prophylaxis -Heparin drip Code Status -Level I, FULL RESUSCITATION STATUS Level of Care Telemetry Resuscitation Status FULL RESUSCITATION VTE Prophylaxis VTE Risk Assessment Done? Y/N: Yes Risk Level: Moderate Given or contraindicated: Other Anticoagulation (heparin drip) Assessment and Plan Attending Addendum: I have physically seen and examined this patient, directed their medical care, supervised the Physician Medical Insurance Coding Specialist's activity, and agree with the H&P as noted above, with the following changes: NONE.
[2016-10-09] MEDS ORDERED: AZITHROMYCIN IV 500 MG in DEXTROSE 5% 250ML 250 ML IV SCH (19:00)
[2016-10-09 19:17] VITALS: BP_SYST 108; BP_SYST 110; BP_DIAS 41; BP_DIAS 67; PULSE 78; TEMP 36.9; O2SAT 92
[2016-10-09] MEDS: HEPARIN 25,000 UNIT/500ML D5W 500 ML IV PRN (19:27)
[2016-10-09] MEDS: MoRPHine SULFATE 2 MG/ML CARP IV PRN ×2 (19:53→23:50)
[2016-10-09] MEDS: ALBUT/IPRATROP 3MG/0.5MG NEB 3 ML VIAL INH SCH (20:00)
[2016-10-09 20:36] VITALS: PULSE 80; O2SAT 95
[2016-10-09] MEDS: SIMVASTATIN 5 MG TAB PO SCH (20:51)
[2016-10-09] MEDS: MAGNESIUM OXIDE 400 MG TAB PO SCH (20:51)
[2016-10-09 23:29] VITALS: BP 109/64; PULSE 67; TEMP 36.8; O2SAT 91
[2016-10-10] VITALS (10 sets, daily range): BP systolic 100–131; BP diastolic 48–72; PULSE 58–88; TEMP 36.4–36.8; O2SAT 90–99
[2016-10-10 01:54] LABS: PARTIAL THROMBOPLASTIN RATIO 1.9
[2016-10-10] MEDS: MoRPHine SULFATE 2 MG/ML CARP IV PRN (05:38)
[2016-10-10 05:52] LABS: HEMATOCRIT 35.3 % (42-52); MEAN CELL VOLUME 97.5 fL (80-100); MEAN CORPUSCULAR HEMOGLOBIN 30.9 pg (25-34); MEAN CORPUSCULAR HGB CONC 31.7 g/dl (32-36); PLATELET COUNT 198 K/uL (130-400); RED BLOOD COUNT 3.62 M/uL (4.7-6.1); WHITE BLOOD COUNT 8.97 K/uL (4.8-10.8)
[2016-10-10 06:27] LABS: BUN/CREATININE RATIO 29.7 (10-20); CALCIUM 8.7 mg/dl (8.5-10.1); CREATININE 0.43 mg/dl (0.60-1.40); POTASSIUM 3.9 mmol/L (3.5-5.1)
[2016-10-10] MEDS: ALBUT/IPRATROP 3MG/0.5MG NEB 3 ML VIAL INH SCH ×4 (07:01→19:17)
[2016-10-10] MEDS: METHYLPREDNISOLONE IV 40 MG in SYRINGE 0 ML IV SCH ×2 (09:53→13:16)
[2016-10-10] MEDS: MoRPHine SULFATE 4 MG/ML 1 ML CARP\\VIAL IV PRN ×5 (09:54→20:58)
[2016-10-10] MEDS: HEPARIN 25,000 UNIT/500ML D5W 500 ML IV PRN (11:19)
[2016-10-10] MEDS ORDERED: OPTIRAY 320 IV PRN (12:00)
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
[2016-10-10] MEDS ORDERED: ENOXAPARIN 1 MG/KG SQ SCH (15:00)
[2016-10-10] MEDS: KETOROLAC TROMETHAMINE 15 MG/ML VIAL IV. SCH ×2 (15:29→22:16)
[2016-10-10] MEDS: ENOXAPARIN 100 MG/1ML SYR SQ SCH (15:33)
[2016-10-10] MEDS: LEVOFLOXACIN 750 MG TAB PO SCH (15:33)
[2016-10-10] MEDS ORDERED: ALBUAER INH (15:58)
[2016-10-10] MEDS ORDERED: ALBUAER2 INH (15:58)
[2016-10-10] MEDS ORDERED: SYMIN/8045 INH (16:00)
[2016-10-10] MEDS ORDERED: ASPI81TA28 PO (16:00)
[2016-10-10] MEDS ORDERED: SYMIN160 INH (16:01)
--- NOTE | 2016-10-10 17:01 | Radiation Oncology Consult ---
Radiation Oncology Consult Date / Reason Oct 10, 2016. Dr. Moo Breaux has been kind enough to ask us to see his patient Mr. Hagan for evaluation and discussion of the role of palliative radiation. History of Present Illness Mr. Hagan is a 66-year-old male who has a one to one and a half pack smoking history for 40 years. He quit smoking 2 years ago. He has a history of chronic obstructive pulmonary disease and is on chronic oxygen. On August 21 the patient fell in his house and his right ribs hit the wooden arm of a loveseat causing right sided rib pain. This pain has gradually increased and was worsened by cough or deep respiration. Because of a attempt to avoid deep respiration the patient is also noted increasing shortness of breath. Approximate 1 week ago the patient presented to the [facility] with these complaints. A chest x-ray was reportedly taken which did not show any fractures but did show pneumonia. The patient was treated with a Z-Rubén which was completed. Unfortunately the patient continued to have cough and shortness of breath. The pain was in the right side of his chest and ribs and was constant. He rated the pain as a 6-7 out of 10. More recently the pain has become more severe and more sharp especially with certain movements or breathing patterns. The pain occasionally radiated towards the center of his chest. He therefore again presented to the [facility] yesterday and spoke with the a nurse practitioner who recommended the patient go to the emergency department. In the emergency department he underwent x-rays of the right ribs. No acute fractures were identified, no evidence of pneumothorax were noted. However multiple pulmonary nodules were appreciated and CT scan was recommended. Patient therefore underwent a CT angiogram of the chest. There were filling defects within the left lower lobe pulmonary artery which extended into the segmental and subsegmental bronchi. This was consistent with pulmonary embolus. A segmental pulmonary embolus was also seen in the right lower lobe pulmonary artery. Emphysema was noted in the lungs with no pleural effusion. There were numerous (greater than 30) irregular pulmonary and pleural-based nodules consistent with multifocal pulmonary metastatic disease. The largest lesion was present in the anterior right upper lobe adjacent to the pleura measuring 3.8 x 1.9 cm and appears to extend through the pleura. A pleural- based lesion was noted in the right upper lobe measuring 2.7 cm. In the mediastinum there were mildly enlarged mediastinal lymph nodes. The largest was in the AP window measuring 1.3 cm. A right hilar lymph node/mass was seen measuring 4.6 x 3.1 cm with no left hilar adenopathy. There was no axillary or supraclavicular adenopathy. The skeletal structures were osteopenic with degenerative changes seen throughout the thoracic spine. There was a permeative osteolytic lesion identified in the body of T5 with a mild pathologic fracture at this site. The tumor extended posteriorly from the T5 vertebral body and caused mild compromise of the central canal. Osteolytic lesion was also seen within the left transverse process of L1. There were osteolytic lesions with pathologic fractures seen involving the right posterior 11th rib and the left lateral eighth rib. Additional smaller osteolytic lesions are seen. Dr. Moo Breaux was called to see the patient in referral and he discussed the CT findings with the patient. He will evaluate the role of pathologic verification of what clearly appears to be a lung primary with metastatic disease. He also suggested that we see this patient in referral for evaluation and discussion of role of palliative radiation to the area of painful bony metastatic site. It is for this reason the patient was seen in referral. Past History Past Medical/Surgical History: [place], Angioplasty/Stent, Pulmonary Emboli, Cancer , CHF, COPD Social History Smoking Status: Former Smoker (quit 2 years ago, smoked for about 40 years, about 1-1.5 packs a day) Hx Tobacco Use In Past Year?: No (quit 2 years ago ) Do You Dip or Chew Tobacco: No Hx Alcohol Use: Yes (occasionally ) Hx Substance Use : No Allergies Coded Allergies: No Known Allergies (Verified , 10/09/16) Home Medications Scheduled Aspirin (Aspirin Ec), 81 MG PO DAILY Atenolol (Tenormin), Unknown Dose PO DAILY Budesonide/Formoterol Fumarate (Symbicort 160/4.5 Inhaler ), 2 PUFFS INH BID Furosemide (Lasix), Unknown Dose PO DAILY Magnesium Oxide (Mag-Ox), 400 MG PO DAILY Simvastatin (Zocor), Unknown Dose PO DAILY Scheduled PRN Albuterol Sulfate (Proventil Hfa), 2 PUFFS INH QID PRN for Wheezing Review of Systems Ear/Hearing: Ear Side: Bilateral Hearing Ability: Normal Hearing Aid: None Edema: Present?: Yes Location Body Site Modifier: Bilateral Type: Pitting Degree: Trace Pain Management Side: Right Pain Location: Chest Patient Preferred Pain Scale: 0 - 10 (patient states the pain is a level V but with certain movement or cough can be up to a level X.) Initial Pain Intensity: 50.0 Pain Description: Dull, Sharp Physical Exam Height: 5 (Feet) 10.00 (Inches) 177.8 (Centimeters) 1.7780 (Meters) Weight: 205 (Pounds) 7.5 (Ounces) 93.200 (Kilograms) 89878.000 (Grams) Date Time Temp Pulse Resp B/P (MAP) Pulse Ox O2 Delivery O2 Flow Rate FiO2 10/10/16 15:37 36.8 61 18 101/54 (70) 90 Nasal Cannula 3.0 10/10/16 15:17 88 16 90 Nasal Cannula 3.0 10/10/16 12:18 36.7 60 18 129/66 (87) 99 10/10/16 12:00 Nasal Cannula 3.0 10/10/16 11:24 58 16 90 Nasal Cannula 3.0 10/10/16 08:00 Nasal Cannula 3.0 10/10/16 07:56 36.8 68 18 131/64 (86) 96 10/10/16 07:02 78 16 92 Nasal Cannula 3.0 10/10/16 04:06 36.6 65 17 120/72 (88) 93 Nasal Cannula 3.0 10/10/16 04:00 Nasal Cannula 3.0 10/10/16 00:00 Nasal Cannula 3.0 10/09/16 23:29 36.8 67 20 109/64 (79) 91 Nasal Cannula 3.0 10/09/16 20:36 80 16 95 Nasal Cannula 3.0 10/09/16 20:00 Nasal Cannula 3.0 10/09/16 19:17 36.9 78 20 110/41 (64) 92 Nasal Cannula 3.0 108/67 (81) 10/09/16 17:53 36.9 81 21 131/80 89 Nasal Cannula 4.0 10/09/16 17:51 36.9 81 21 131/80 (97) 87 Nasal Cannula 3.0 10/09/16 17:25 73 16 114/57 92 Nasal Cannula 3.0 10/09/16 16:40 72 19 102/55 90 Room Air 3.0 General Appearance: + mild distress Head: normocephalic, atraumatic Eyes: normal inspection ENT: normal ENT inspection Neck: supple, no adenopathy Respiratory/Chest: + decreased breath sounds, + rhonchi, + pertinent finding ( there was tenderness to percussion and palpation of the right anterior lateral ribs.) Cardiovascular: regular rate, rhythm, no murmur Abdomen/GI: non tender, soft, no organomegaly Back: normal inspection, no CVA tenderness Extremities: normal inspection, no calf tenderness Neurologic/Psych: patrol guard II-XII nml as tested, no motor/sensory deficits, alert, normal mood/affect, oriented x 3 Skin: normal color Lymphatic: no adenopathy Imaging Imaging Comments ULTRASOUND BILATERAL LOWER EXTREMITY VENOUS CLINICAL HISTORY: Hypoxia. COMPARISON STUDY: No priors. TECHNIQUE: Real-time, grayscale, and color Doppler sonography of the deep veins of the right and left lower extremity was performed from the inguinal crease to the calf. Compression and augmentation were utilized. FINDINGS: There is no sonographic evidence of acute deep venous thrombosis identified in the right or left lower extremity. Trace echogenic chronic thrombus is identified within the common femoral vein bilaterally. The common femoral, superficial femoral, and popliteal veins are patent and normally compressible bilaterally. The greater saphenous vein and the profunda femoris vein at the junction with the common femoral vein are clear in both legs. The visualized calf veins are patent bilaterally. There is a multiloculated popliteal cyst on the right. The loculations measure 3.6 x 1.6 x 3.3 cm and 3.1 x 1.5 x 2.4 cm. IMPRESSION: 1. There is no sonographic evidence of acute deep venous thrombosis identified in the right or left lower extremity. 2. Trace echogenic chronic thrombus is seen within the common femoral vein bilaterally. 3. Multiloculated right popliteal cyst. CT ANGIOGRAM OF THE CHEST CLINICAL HISTORY: Dyspnea. Fall with right-sided chest pain. COMPARISON STUDY: Chest CT dated 05/02/2010. TECHNIQUE: Following the IV administration of 93 cc of Optiray 320, CT angiogram of the chest was performed from the upper abdomen to the thoracic inlet utilizing the pulmonary embolus protocol. Images are reviewed in the axial, sagittal, and coronal planes. 3-D MIPS images are created and assessed. IV contrast was administered without complication. CT DOSE: 568.43 mGy.cm FINDINGS: Thyroid: Imaged portions of the thyroid gland are normal in size and attenuation. Thoracic aorta: There is atherosclerotic calcification of the thoracic aorta, which is normal in caliber and demonstrates standard 3-vessel arch anatomy. No dissection is seen. Pulmonary vasculature: The pulmonary trunk is markedly dilated, measuring 4.6 cm in diameter. This suggests pulmonary artery hypertension. There are filling defects within the left lower lobar pulmonary artery which extend in the segmental and subsegmental branches. This is consistent with pulmonary embolus. Segmental pulmonary emboli are also seen in the right lower lobe pulmonary artery on image #103. Heart: The heart is enlarged and without pericardial effusion. The coronary arteries are densely calcified. Lungs and pleural spaces: Emphysema is noted. Patchy airspace opacities are present in the left lower lobe. No pleural effusion is identified. Minimal secretions are seen in the trachea. There are numerous (greater than 30) irregular pulmonary and pleural-based nodules consistent with multifocal pulmonary metastatic disease. The largest lesion is present in the anterior right upper lobe adjacent to the pleura on image #209. This measures 3.8 x 1.9 cm adnexa appears to extend through the pleura. A pleural based lesion in the right upper lobe on image #217 measures 2.7 cm. Mediastinum: There are mildly enlarged mediastinal lymph nodes. The largest is seen in the AP window on image #193 and measures up to 1.3 cm in short axis. Annette: A right hilar lymph node/mass is seen on image #172 and measures 4.6 x 3.1 cm. No left hilar adenopathy is seen. Lower neck: There is no supraclavicular lymphadenopathy. Axillae: There is no axillary lymphadenopathy. Upper abdomen: A 1.9 cm cyst is seen in the upper pole of the right kidney. 1.5 cm cyst is seen in the upper pole of the left kidney. There is mild nodularity of the left adrenal gland. Skeletal structures: The skeletal structures are osteopenic. Degenerative changes seen throughout the thoracic spine. There is a permeative osteolytic lesion identified in the body of T5 with a mild pathologic fracture at this site. Tumor extends posteriorly from the T5 vertebral body and causes acquired compromise of the central canal. Osteolytic lesion is seen within the left transverse process of L1. There are osteolytic lesions with pathologic fracture seen involving the right posterior 11th rib and the left lateral 8th rib. Additional smaller osteolytic lesions are seen. IMPRESSION: 1. Findings are positive for pulmonary embolus. Small pulmonary emboli are seen within the distal left lower lobar pulmonary artery extending into segmental branches. A segmental pulmonary embolus is also seen within a branch of the right lower lobe pulmonary artery. 2. Cardiomegaly and advanced emphysema with evidence of pulmonary artery hypertension. 3. There are patchy airspace opacities at the left lung base. This could represent atelectasis versus a mild infectious/inflammatory pneumonitis. Clinical correlation will be required. 4. There are numerous (greater than 30) pulmonary and pleural-based lesions as above. The appearance is consistent with multifocal metastatic disease. 5. There is a 4.6 cm right hilar lymph node/perihilar mass. This could represent metastatic disease or a primary lesion. 6. Mildly enlarged mediastinal nodes are identified. 7. There are multiple osteolytic lesions identified consistent with metastatic disease. 8. A permeative osteolytic lesion is identified within the posterior aspect of T5. There is a mild pathologic compression fracture of T5, and tumor extends posteriorly from the T5 vertebral body with encroachment upon the central canal. 9. There are pathologic fractures of the right posterior 11th and the left lateral 8th ribs. 10. Additional findings as above. Treatment Options I discussed the following treatment options with Mr. Hagan. 1. I discussed the need for histologic verification of his presumed cancer. I will discuss this with Dr. Breaux the best method to obtain verification of cancer and histologic subtyping. 2. I discussed palliative radiation to the 2 pleural based lesions in the right chest wall that appeared to be the source of his pain. I also discussed palliative radiation to the T5 vertebral body. I included the vertebral body due to the extension of the disease causing compromise of the central canal. 3. I would recommend an MRI of the brain for staging purposes. 4. I would recommend medical oncology consultation for discussion of the role of palliative systemic chemotherapy. 5. I would recommend histologic verification of malignancy. Assessment & Recommendations In summary Mr. Hagan is a 66-year-old male who smoke for 40 years from 1-1-1/ 2 pack per day. He quit 2 years ago. He has a history of chronic obstructive pulmonary disease and is on baseline oxygen at home. Recently he fell at home hitting his ribs on a piece of furniture. He has had rib pain since then. Because this was causing pain with deep breathing he also developed progressive shortness of breath. He was seen in the [facility] approximate 1 week ago with complaint of progressive pain. Chest x-rays reportedly showed a pneumonia and antibiotics were started. When these did not improve his status he returned and was counseled to go to the emergency department. He presented there recently. A CT angiogram showed evidence of pulmonary emboli along with innumerable lung nodules consistent with metastatic pulmonary disease. There was also enlarged mediastinal and right hilar adenopathy as well as 2 pleural based nodules involving the right second and right third rib causing bony rib destruction. There were other areas of metastatic bony disease in the ribs and a lesion in the T5 vertebral body posteriorly causing compromise of the central canal. In discussion with the patient his pain has a pleuritic component and is exacerbated by movement, deep breath or cough. It is also elicited with percussion over the area of the ribs. He does not appear to have pain related to his T5 vertebral body as there is no radiating pain around his chest bilateral and there is no pain to percussion over the T5 vertebral body. I spoke with the patient about the need to obtain histologic verification of his cancer diagnosis. I also suggested that we proceed with a CT simulation necessary prior to starting palliative radiation. I suggested that we treat the 2 pleural based areas as well as the T5 vertebral body. Although I do not believe this is causing symptoms if there is evidence of canal compromise and thus is likely to cause symptoms in the near future if left untreated. I reviewed with the patient briefly the anticipated course of treatment. The patient verbally agreed to come down for a simulation which we will schedule for tomorrow. The patient will also be seen by medical oncology and will undoubtedly undergo systemic chemotherapy for palliation. I will discuss this with Dr. Breaux and with medical oncology prior to initiation of therapy. Thank you for allowing us to participate in the care of this patient. This chart was completed in part utilizing [employer] Speech Voice Recognition software. Attempts were made to minimize the grammatical errors, random word insertions, pronoun errors and incomplete sentences. Any formal questions or concerns about the content, text or information contained within the body of this dictation should be directly addressed to the provider for clarification. Sam Her MD Department of Radiation Oncology [facility] Total Time In Consultation I spent 20 minutes in examination and discussion of the role of radiation with this patient and 30 minutes reviewing his x-rays and discussion with his referring physicians and preparation of this document. YANETH Copy To Rey Yanez D.O.; Ann Olivas M.D.; Justin Palacios M.D.; Moo Breaux MD
--- NOTE | 2016-10-10 17:38 | Family Medicine Progress Note ---
Progress Note Date of Service Oct 10, 2016. Subjective Pt evaluation today including: conversation w/ patient, physical exam, chart review, lab review Pain: Right rib pain PO Intake: Good Voiding: no voiding problems, no incontinence Notes right rib pain per h&P 40-60 pack year smoker; denies occupational exposure Never had CT chest before, [facility]; notes he saw [facility] in [facility] but records are not available to us. No other issues since admission. Additional Comments: A 10 point review of systems was negative unless stated above. Medications Current Inpatient Medications Medications (Trade) Dose Ordered Sig/Abbi Route Start Time Stop Time Status Last Admin Dose Admin Ioversol (Optiray 320) 100 ml UD PRN IV 10/09/16 12:45 10/13/16 12:44 Acetaminophen (Tylenol Tab) 650 mg Q4H PRN PO 10/09/16 17:45 11/08/16 17:44 Al Hydrox/Mg Hydrox/Simethicone (Maalox Max Susp) 15 ml Q4H PRN PO 10/09/16 17:45 11/08/16 17:44 Magnesium Hydroxide (Milk Of Magnesia Susp) 30 ml Q12H PRN PO 10/09/16 17:45 11/08/16 17:44 Ondansetron HCl (Zofran Inj) 4 mg Q6H PRN IV 10/09/16 17:45 11/08/16 17:44 Polyethylene (Miralax Powder Packet) 17 gm DAILY PRN PO 10/09/16 17:45 11/08/16 17:44 Magnesium Oxide (Mag-Ox Tab) 400 mg DAILY PO 10/10/16 09:00 11/09/16 08:59 10/09/16 20:51 400 MG Atenolol (Tenormin Tab) 25 mg DAILY PO 10/10/16 09:00 11/09/16 08:59 10/09/16 20:51 25 MG Simvastatin (Zocor Tab) 5 mg DAILY PO 10/10/16 09:00 11/09/16 08:59 10/09/16 20:51 5 MG Albuterol/ Ipratropium (Duoneb) 3 ml QIDR INH 10/09/16 20:00 11/08/16 19:59 10/10/16 15:16 3 ML Morphine Sulfate (MoRPHine SULFATE INJ) 4 mg Q2H PRN IV 10/10/16 08:52 10/23/16 19:44 10/10/16 15:25 4 MG Ioversol (Optiray 320) 100 ml UD PRN IV 10/10/16 12:00 10/14/16 11:59 Ketorolac Tromethamine (Toradol Inj) 15 mg Q6H IV. 10/10/16 16:00 10/13/16 15:59 10/10/16 15:29 15 MG Levofloxacin (Levaquin Tab) 750 mg DAILY@11 PO 10/10/16 16:00 10/17/16 15:59 10/10/16 15:33 750 MG Budesonide/ Formoterol Fumarate (Symbicort 160/ 4.5 Inh) 2 puffs BID INH 10/10/16 21:00 11/09/16 20:59 Tiotropium [place] (Spiriva Handihaler Inhaler) 1 puff QAM INH 10/11/16 09:00 11/10/16 08:59 Enoxaparin Sodium (Lovenox Inj) 90 mg Q12@0600,1800 SQ 10/10/16 16:00 11/09/16 15:59 10/10/16 15:33 90 MG Objective Vital Signs Date Time Temp Pulse Resp B/P (MAP) Pulse Ox O2 Delivery O2 Flow Rate FiO2 10/10/16 16:00 Nasal Cannula 3.0 10/10/16 15:37 36.8 61 18 101/54 (70) 90 Nasal Cannula 3.0 10/10/16 15:17 88 16 90 Nasal Cannula 3.0 10/10/16 12:18 36.7 60 18 129/66 (87) 99 10/10/16 12:00 Nasal Cannula 3.0 10/10/16 11:24 58 16 90 Nasal Cannula 3.0 10/10/16 08:00 Nasal Cannula 3.0 10/10/16 07:56 36.8 68 18 131/64 (86) 96 10/10/16 07:02 78 16 92 Nasal Cannula 3.0 10/10/16 04:06 36.6 65 17 120/72 (88) 93 Nasal Cannula 3.0 10/10/16 04:00 Nasal Cannula 3.0 10/10/16 00:00 Nasal Cannula 3.0 10/09/16 23:29 36.8 67 20 109/64 (79) 91 Nasal Cannula 3.0 10/09/16 20:36 80 16 95 Nasal Cannula 3.0 10/09/16 20:00 Nasal Cannula 3.0 10/09/16 19:17 36.9 78 20 110/41 (64) 92 Nasal Cannula 3.0 108/67 (81) 10/09/16 17:53 36.9 81 21 131/80 89 Nasal Cannula 4.0 10/09/16 17:51 36.9 81 21 131/80 (97) 87 Nasal Cannula 3.0 Physical Exam General Appearance: WD/WN, no apparent distress Eyes: normal inspection, EOMI ENT: hearing grossly normal, pharynx normal Neck: supple, no adenopathy, no JVD Respiratory/Chest: + pertinent finding (coarse breath sounds with wheezing; right chest wall tenderness) Cardiovascular: regular rate, rhythm, no gallop, no murmur Abdomen: normal bowel sounds, non tender, soft Extremities: non-tender, no pedal edema 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: alert, normal mood/affect, oriented x 3 Laboratory Results Last 24 Hours Test 10/09/16 21:35 10/10/16 01:33 10/10/16 05:32 Troponin I < 0.015 ng/ml Activated Partial Thromboplast Time 50.2 SECONDS Partial Thromboplastin Ratio 1.9 White Blood Count 8.97 K/uL Red Blood Count 3.62 M/uL Hemoglobin 11.2 g/dL Hematocrit 35.3 % Mean Corpuscular Volume 97.5 fL Mean Corpuscular Hemoglobin 30.9 pg Mean Corpuscular Hemoglobin Concent 31.7 g/dl RDW Standard Deviation 47.3 fL RDW Coefficient of Variation 13.2 % Platelet Count 198 K/uL Mean Platelet Volume 9.0 fL Sodium Level 137 mmol/L Potassium Level 3.9 mmol/L Chloride Level 95 mmol/L Carbon Dioxide Level 39 mmol/L Anion Gap 3.0 mmol/L Blood Urea Nitrogen 13 mg/dl Creatinine 0.43 mg/dl Est Creatinine Clear Calc Drug Dose 192.3 ml/min Estimated GFR () 139.3 Estimated GFR (Non- 120.2 BUN/Creatinine Ratio 29.7 Random Glucose 87 mg/dl Calcium Level 8.7 mg/dl Assessment and Plan 66 year old male with history of COPD. Presenting with bilateral PE and right rib pain 2/2 pathological fracture from suspected metastatic malignancy. Primary source is currently being determined. Our plan for him is as follows: Bilateral PE - Suspected 2/2 malignancy - Started on heparin infusion; changed to Therapeutic Lovenox 1 mg/kg BID - Goal Sat with Hx of COPD > 88-90% Metastatic Malignancy of Unknown Primary - Multiple pulmonary and pleural based nodules on CT - Pulmonary consulted for recommendations for possible bronchoscopic evaluation - Tissue required for definitive identification - CT abdomen/pelvis ordered on admission; result pending Pneumonia vs Pneumonitis - Infiltrate on CXR suspected to be reactive to nodule rather than infection - IV antibiotics de-escalated to PO Levaquin x 5 days COPD - Exacerbation unlikely at this time - Nebulizers Discontinued - Resume home meds: Symbicort and Spiriva - Duoneb PRN Coronary Artery Disease - Continue ASA in case patient to go for procedure - Continue Atenolol and Simvastatin Pathological Right Rib Fracture - Morphine 4 mg q 4h - Toradol QID - Will monitor pain needs overnight titrate to minimal narcs balancing patient comfort DVT prophylaxis - Lovenox - SCD Disposition - Med/Surg Resident Physician Supervision Note: I was present with PGY2 Dr. Duane Chawla during the history and exam. I discussed the case with the resident and agree with the findings and plan as documented in the note. Any exceptions or clarifications are listed here: none. Pt anxious about everything that has been told to him. He understands that his clinical picture is c/w met cancer. Denies back pain. Continues with right chest wall pain - pleuritic in nature. Some cough, no fever. Tele stable. VSS O2 sats acceptable gen - NAD neck - no JVD heart - RRR lungs - diffuse wheezing b/l, course BS with crackle LLL abd - soft, NT, no masses ext - no edema CTA chest reviewed venous dopplers reviewed A/P: 1. b/l pulmonary emboli likely due to metastatic cancer 2. right-sided rib fractures - pathologic 3. T5 compression fracture - pathologic 4. LLL pneumonia 5. widespread apparent metastatic cancer 6. COPD with possible exacerbation pain control - may need fentanyl patch with prn meds for breakthrough; consider lidoderm for rib fractures continue steroids/abx for #4 and #6 agree with pulmonary consultation agree with rad onc and heme/onc consultations agree he needs tissue dx will need lovenox 1mg/kg q12h at discharge; would continue heparin for ease of stopping such for procedures updated Documented By: Awais Griffin MD Continued [facility] stay due to: abnormal vital signs Discharge planning: uncertain
[2016-10-10] MEDS: BUDESONIDE/FORMOTEROL FUMARATE 160/4.5 60 PUFFS/INHALER INH SCH (19:18)
[2016-10-11] VITALS (11 sets, daily range): BP systolic 97–118; BP diastolic 45–65; PULSE 48–77; TEMP 36.4–36.8; O2SAT 91–99
[2016-10-11] MEDS: MoRPHine SULFATE 4 MG/ML 1 ML CARP\\VIAL IV PRN ×6 (00:20→18:29)
[2016-10-11] MEDS: KETOROLAC TROMETHAMINE 15 MG/ML VIAL IV. SCH ×4 (03:43→22:08)
[2016-10-11] MEDS: ENOXAPARIN 100 MG/1ML SYR SQ SCH ×2 (05:52→16:16)
[2016-10-11 06:12] LABS: HEMATOCRIT 35.4 % (42-52); MEAN CELL VOLUME 94.7 fL (80-100); MEAN CORPUSCULAR HEMOGLOBIN 29.7 pg (25-34); MEAN CORPUSCULAR HGB CONC 31.4 g/dl (32-36); MEAN PLATELET VOLUME 8.7 fL (7.4-10.4); PLATELET COUNT 214 K/uL (130-400); RED BLOOD COUNT 3.74 M/uL (4.7-6.1); WHITE BLOOD COUNT 9.06 K/uL (4.8-10.8)
[2016-10-11 06:28] LABS: PARTIAL THROMBOPLASTIN RATIO 1.3
--- NOTE | 2016-10-11 06:36 | Clinical Documentation Query ---
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 Patient maintains a significant smoking history and diagnosis of COPD. H&P notes the use of 3L NC continuously at home. As appropriate, consider clarification as suggested below. In your clinical opinion is this patient being managed for: ( x ) Chronic respiratory failure with hypoxia ( ) Other explanation of clinical findings (Please Explain) ( ) Unable to determine (Please Define) ( ) Need to Discuss ( ) Not Agree The medical record reflects the following clinical findings, treatment, and risk factors. Clinical Indicators: As above Treatment: Supplemental O2 Risk Factors: COPD, smoking history QUERY 2 OF 2 H&P notes a history of CHF, stated as "unknown if systolic vs diastolic". Per prior echo: Cardiac Echo (11/2009) LV: EF=60-65%, LVH RV: moderately dilated, mild RVH, mildly reduced systolic function RA: mild dilation --Possible PH In your clinical opinion is this patient being managed for: ( ) Chronic systolic CHF (x ) Other explanation of clinical findings (Please Explain) - chronic cor pumonale / chronic pulmonary HTN ( ) Unable to determine (Please Define) ( ) Need to Discuss ( ) Not Agree The medical record reflects the following clinical findings, treatment, and risk factors. Clinical Indicators: As above Treatment: Home regimen includes Lasix, supplemental O2, Atenolol. Risk Factors: COPD, smoking, pulmonary hypertension Please clarify and document your clinical opinion in the progress notes and discharge summary. Terms such as "probable", "suspected", "likely", "questionable", "possible", or "still to be ruled out" are acceptable. IF IN AGREEMENT, YOU MUST DOCUMENT ABOVE DIAGNOSTIC STATEMENT IN DAILY PROGRESS NOTES AND DISCHARGE SUMMARY. This document is not part of the patient's record. Thank You, Magan Fiore, RN [phone]
[2016-10-11 06:39] LABS: BUN/CREATININE RATIO 35.4 (10-20); CREATININE 0.7 mg/dl (0.60-1.40); POTASSIUM 4.3 mmol/L (3.5-5.1)
[2016-10-11 06:46] LABS: CALCIUM 9.2 mg/dl (8.5-10.1)
[2016-10-11] MEDS: ALBUT/IPRATROP 3MG/0.5MG NEB 3 ML VIAL INH SCH ×4 (07:12→19:07)
--- NOTE | 2016-10-11 07:51 | Clinical Documentation Query ---
Dr. 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 Patient maintains a significant smoking history and diagnosis of COPD. H&P notes the use of 3L NC continuously at home. As appropriate, consider clarification as suggested below. In your clinical opinion is this patient being managed for: ( ) Chronic respiratory failure with hypoxia ( ) Other explanation of clinical findings (Please Explain) ( ) Unable to determine (Please Define) ( ) Need to Discuss ( ) Not Agree The medical record reflects the following clinical findings, treatment, and risk factors. Clinical Indicators: As above Treatment: Supplemental O2 Risk Factors: COPD, smoking history QUERY 2 OF 2 H&P notes a history of CHF, stated as "unknown if systolic vs diastolic". Per prior echo: Cardiac Echo (11/2009) LV: EF=60-65%, LVH RV: moderately dilated, mild RVH, mildly reduced systolic function RA: mild dilation --Possible PH In your clinical opinion is this patient being managed for: ( ) Chronic systolic CHF ( ) Other explanation of clinical findings (Please Explain) ( ) Unable to determine (Please Define) ( ) Need to Discuss ( ) Not Agree The medical record reflects the following clinical findings, treatment, and risk factors. Clinical Indicators: As above Treatment: Home regimen includes Lasix, supplemental O2, Atenolol. Risk Factors: COPD, smoking, pulmonary hypertension Please clarify and document your clinical opinion in the progress notes and discharge summary. Terms such as "probable", "suspected", "likely", "questionable", "possible", or "still to be ruled out" are acceptable. IF IN AGREEMENT, YOU MUST DOCUMENT ABOVE DIAGNOSTIC STATEMENT IN DAILY PROGRESS NOTES AND DISCHARGE SUMMARY. This document is not part of the patient's record. Thank You, Magan Fiore, RN [phone]
[2016-10-11] MEDS: TIOTROPIUM BROMIDE 5 PUFF/90 MCG INH INH SCH (08:19)
[2016-10-11] MEDS: BUDESONIDE/FORMOTEROL FUMARATE 160/4.5 60 PUFFS/INHALER INH SCH ×2 (08:19→20:20)
[2016-10-11] MEDS: MAGNESIUM OXIDE 400 MG TAB PO SCH (08:20)
[2016-10-11] MEDS: SIMVASTATIN 5 MG TAB PO SCH (08:20)
--- NOTE | 2016-10-11 09:44 | Progress Note ---
Progress Note Date of Service Oct 11, 2016. Progress Note Mr. Hagan was brought to our department today for a CT simulation. We are planning to treat the painful areas on his ribs and the T5 vertebral body. When he placed the patient on the CT simulator table the brought his arms above his head. This exacerbated the chest wall pain on the right. The patient was unable to maintain this position. We got him off the table. I spoke to him about obtaining pain medication and after an appropriate interval to attempt a repeat simulation. The patient did not wish to wait in the department. I then offered to bring him down later in the day after appropriate premedication. He again deferred. We therefore will plan to bring him down if possible this Friday for CT simulation after appropriate premedication. I also spoke to the patient about the need for an MRI of the brain to complete his staging workup. He stated he has tried MRIs in the past and is unable to perform this study due to anxiety. I asked him if he thought he could undergo the procedure with appropriate premedication. He said this is been tried in the past and has been unsuccessful. It would therefore be reasonable to proceed with a CT scan of the head with IV contrast as an alternative. Sam Her M.D.
[2016-10-11] MEDS: LIDODERM (LIDOCAINE) PATCH 5% TD SCH (09:48)
[2016-10-11] MEDS: OXYCODONE/ACETAMINOPHEN 5-325 TAB PO PRN ×2 (09:54→18:30)
[2016-10-11] MEDS: LEVOFLOXACIN 750 MG TAB PO SCH (09:55)
--- NOTE | 2016-10-11 10:09 | CONSULTATION REPORT ---
DATE OF CONSULTATION: 10/11/2016 DATE OF CONSULTATION: 10/11/2016. Plan of care discussed with Dr. Padilla. CHIEF COMPLAINT: Right lateral and anterior chest wall x6 weeks. HISTORY OF PRESENT ILLNESS: Mr. Hagan is a 66-year-old white male who was admitted secondary to right-sided chest wall pain with discovery of bilateral pulmonary embolism. The patient is reporting pain in the right lateral and anterior chest wall x6 weeks' duration. The patient reported a fall striking his right chest wall on a chair approximately 6 weeks prior at the time of onset. The patient indicates the pain is episodic but constant at a 4/10 escalating to an 8-9/10 with deep breathing, coughing, sneezing or movements. He reports the pain is at that time episodic and sharp. He has also been experiencing difficulties with coughing with mucous and some progressive shortness of breath. The patient at this time denies midline axial back pain or a true thoracic radicular component to his symptoms. The patient denies pain elsewhere at this time. PAST MEDICAL HISTORY: 1. History of UT, status post stent placement. 2. Congestive heart failure. 3. Dyslipidemia. 4. Chronic obstructive pulmonary disease. 5. History of chronic tobacco use -- quit in 2014. PAST SURGICAL HISTORY: 1. Lumbar spine surgery. 2. Stent placement. SOCIAL HISTORY: The patient is a former smoker, quitting approximately 2 years ago. The patient has a 40-60 pack year history. The patient reports occasional alcohol consumption. He denies illicit drug use. The patient is , currently living with significant other. The patient is employed. FAMILY HISTORY: Cancer -- unknown type. ALLERGIES: No known drug allergies. CURRENT MEDICATIONS: Refer to EHR for current listing. REVIEW OF SYSTEMS: The patient denies complaints related to cardiac, pulmonary, GI, , endocrine, neurologic, hepatic, renal, ENT, dermatologic other than described above in the HPI. PHYSICAL EXAMINATION: VITAL SIGNS: Temperature 36.7 degree Celsius, pulse 53, respirations 16, BP 97/57, pulse ox 91 on 3 liters of oxygen via nasal cannula. GENERAL: Mr. Hagan is sleeping upon entering the room. He was awakened and arousable. His speech and thought process are appropriate. His cognition was intact. CHEST: The patient has no visible abnormalities. The patient is tender over the right lateral and anterior chest wall with AP as well as lateral compression. The patient is tender to palpation in the intercostal space between the 4th-5th versus 5th-6th rib extending from the posterior axillary line through the mid clavicular line. He has no palpable abnormalities along the rib. He has no evidence of allodynia, hyperpathia, or hyperalgesic response. There is no evidence of skin rash or breakdown. ABDOMEN: Soft and nondistended. BACK AND SPINE: Loss of lordosis. He has a well-healed midline surgical incision status post prior lumbar laminectomy. He has no limitations of range of motion, although range of motion is guarded over the thoracolumbar spine. He has normal thoracic kyphosis. He is nontender over the midline to palpation or percussion. LOWER EXTREMITIES: Strength 5/5 and equal with dorsiflexion, plantar flexion and hip flexion/extension. Sensation intact without deficit. NEUROLOGIC: Cranial nerves grossly intact. Ambulatory function was not witnessed. IMAGING: Chest/thoracic CTA revealed positive for pulmonary embolism. Small pulmonary emboli are seen within the distal left lower pulmonary artery extending into segmental branches. A segmental pulmonary embolus is also seen within the branch of the right lower lobe artery. Cardiomegaly and advanced emphysema with evidence of pulmonary artery hypertension. There are patchy airspace opacities at the left lung base. This could represent atelectasis versus a mild infectious/inflammatory pneumonitis. There are numerous greater than 30 pulmonary and pleural-based lesions consistent with multifocal metastatic disease. There is a 4.6 cm right hilar lymph node/perihilar mass. This could represent metastatic disease of a primary lesion. Mildly enlarged mediastinal lymph nodes are identified. Multiple osteolytic lesions identified consistent with metastatic disease. A permeative osteolytic lesion is identified within the posterior aspect of T5. There is mild pathologic compression fracture of T5 and tumor extends posteriorly from T5 vertebral body with encroachment upon the central canal. There are pathologic fractures of the right posterior 11th and left lateral 8th ribs. Right rib unilateral with PA chest 10/09/2016 no acute rib fracture identified. No evidence of pneumothorax. Multiple bilateral pulmonary nodules. Venous Doppler dated 10/09/2016 revealed no sonographic evidence of acute DVT in the right or left lower extremity. Trace echogenic chronic thrombus is seen within the common femoral vein. Multiloculated right popliteal cysts. ASSESSMENT: 1. Right pleuritic chest pain. 2. Pulmonary embolism. 3. Emphysema. 4. Pathologic compression fracture of T5 with tumor extending posteriorly from T5 vertebral body with encroachment upon the central canal. 5. Pathologic fracture of the right posterior 11th and left lateral 8th ribs. 6. 4.6 cm right hilar lymph node/perihilar mass. 7. Advanced emphysema. 8. Cardiomegaly. TREATMENT AND RECOMMENDATIONS: 1. We discussed the potential etiologies of the right chest wall pain of pleuritic nature relating to costochondritis versus intercostal neuralgia. The patient is currently a poor candidate for a diagnostic intercostal nerve block due to his anticoagulation status, uncertain status regarding cancer as well as infection. The patient may be a candidate in the future for intercostal nerve block with persisting pain complaints. 2. Would recommend a dedicated MRI of the thoracic spine, which is currently nonurgent to evaluate the T5 mass to determine potential impact on the spinal cord region. 3. There appears to be no correlation with his current pain and the findings of osteolytic pathological fractures of the ribs/chest wall. 4. Will initiate Percocet 5/325 one tablet p.o. q. 6 on a p.r.n. basis for breakthrough pain to assess efficacy. The patient may continue with IV morphine for breakthrough pain not well controlled with Percocet. 5. Will initiate gabapentin 300 mg at bedtime progressing to t.i.d. over the next 3 days. 6. Will initiate Lidoderm patch to apply to the right lateral and anterior chest wall location on for 12 hours and off for 12 hours daily. 7. Further recommendations will be made pending response. 8. Will continue to follow during inpatient hospital stay. Thank you for consultation on Mr. Hagan. ALDAIR
--- NOTE | 2016-10-11 14:57 | Pulmonology Progress Note ---
Pulmonary Progress Note Date of Service Oct 11, 2016. Attending Dr. Breaux Subjective The patient continues to note pleurisy as well as back pain. No acute respiratory insufficiency. Objective Patient is doing well able to sit in bed complete full sentences no signs of respiratory insufficiency Vital signs: Stable on 2-3 L nasal cannula Respiratory: Minimal rhonchi appreciated bilaterally Cardiac: S1 and S2 distant heart sounds regular rate and rhythm Abdomen: Positive bowel sounds soft nontender Thorax: Notable tenderness to palpation especially on the sternal region Back: Notable tenderness to palpation of the thoracic region Assessment & Plan 6-year-old gentleman admitted with bilateral pulmonary nodule/hilar adenopathy, COPD and bilateral pulmonary emboli: #1 Pulmonary Emboli: As this patient's pulmonary emboli are most likely secondary to carcinoma continuation on Lovenox is appropriate at this time. #2 COPD: Continue on current oxygen support, inhaler regimen and nebulizers. This is not a COPD exacerbation. #3 Acute Bronchitis: Patient with possible bronchitis continue on Levaquin 750 mg daily for total of 5 days. #4 Pain: The pain management team is currently involved with a further management. I do agree with radiation oncology that introduction of radiation to the patient's plan would greatly benefit his discomfort. #5 Pulmonary Nodules: Patient is high likelihood of having underlying carcinoma but is unable to be fully worked up at this time is is notably in tremendous discomfort. I agree with aggressive pain management and then further evaluation and workup on Friday if possible. I've spoken to interventional radiology Dr. Cha, he feels that is possible to transthoracic needle for biopsy confirmation. This patient is a poor candidate for bronchoscopy as he is signs of pulmonary hypertension and recent pulmonary emboli requiring anticoagulation at this time. If interventional radiology is unable to obtain a sample within we 'll proceed forward with bronchoscopy for diagnosis. Data Medications: Current Inpatient Medications Medications (Trade) Dose Ordered Sig/Abbi Route Start Time Stop Time Status Last Admin Dose Admin Ioversol (Optiray 320) 100 ml UD PRN IV 10/09/16 12:45 10/13/16 12:44 Acetaminophen (Tylenol Tab) 650 mg Q4H PRN PO 10/09/16 17:45 11/08/16 17:44 Al Hydrox/Mg Hydrox/Simethicone (Maalox Max Susp) 15 ml Q4H PRN PO 10/09/16 17:45 11/08/16 17:44 Magnesium Hydroxide (Milk Of Magnesia Susp) 30 ml Q12H PRN PO 10/09/16 17:45 11/08/16 17:44 Ondansetron HCl (Zofran Inj) 4 mg Q6H PRN IV 10/09/16 17:45 11/08/16 17:44 Polyethylene (Miralax Powder Packet) 17 gm DAILY PRN PO 10/09/16 17:45 11/08/16 17:44 Magnesium Oxide (Mag-Ox Tab) 400 mg DAILY PO 10/10/16 09:00 11/09/16 08:59 10/11/16 08:20 400 MG Atenolol (Tenormin Tab) 25 mg DAILY PO 10/10/16 09:00 11/09/16 08:59 10/09/16 20:51 25 MG Simvastatin (Zocor Tab) 5 mg DAILY PO 10/10/16 09:00 11/09/16 08:59 10/11/16 08:20 5 MG Albuterol/ Ipratropium (Duoneb) 3 ml QIDR INH 10/09/16 20:00 11/08/16 19:59 10/11/16 11:30 3 ML Morphine Sulfate (MoRPHine SULFATE INJ) 4 mg Q2H PRN IV 10/10/16 08:52 10/23/16 19:44 10/11/16 14:23 4 MG Ioversol (Optiray 320) 100 ml UD PRN IV 10/10/16 12:00 10/14/16 11:59 Ketorolac Tromethamine (Toradol Inj) 15 mg Q6H IV. 10/10/16 16:00 10/13/16 15:59 10/11/16 09:50 15 MG Levofloxacin (Levaquin Tab) 750 mg DAILY@11 PO 10/10/16 16:00 10/17/16 15:59 10/11/16 09:55 750 MG Budesonide/ Formoterol Fumarate (Symbicort 160/ 4.5 Inh) 2 puffs BID INH 10/10/16 21:00 11/09/16 20:59 10/11/16 08:19 2 PUFFS Tiotropium [place] (Spiriva Handihaler Inhaler) 1 puff QAM INH 10/11/16 09:00 11/10/16 08:59 10/11/16 08:19 1 PUFF Enoxaparin Sodium (Lovenox Inj) 90 mg Q12@0600,1800 SQ 10/10/16 16:00 11/09/16 15:59 10/11/16 05:52 90 MG Oxycodone/ Acetaminophen (Percocet 5-325mg Tab) 1 tab Q4H PRN PO 10/11/16 08:30 10/25/16 08:29 10/11/16 09:54 1 TAB Gabapentin (Neurontin Cap) 300 mg Taper BID PO 10/12/16 09:00 11/12/16 08:59 Lidocaine (Lidoderm Patch 5%) 1 patch QAM TD 10/11/16 09:00 11/10/16 08:59 10/11/16 09:48 1 PATCH Miscellaneous (Remove Lidoderm Patch) 1 ea DAILY@21 N/A 10/11/16 21:00 11/10/16 20:59 Gabapentin (Neurontin Cap) 300 mg HS PO 10/11/16 21:00 10/11/16 21:01 I & O: 24-Hour Column 10/12/16 08:00 Output Total 300 ml Balance -300 ml Vital Signs: Date Time Temp Pulse Resp B/P (MAP) Pulse Ox O2 Delivery O2 Flow Rate FiO2 10/11/16 12:00 Nasal Cannula 3.0 10/11/16 11:33 36.4 50 20 100/57 (71) 99 3.0 10/11/16 11:30 77 12 94 Nasal Cannula 2.0 10/11/16 08:00 Nasal Cannula 3.0 10/11/16 07:36 36.7 53 16 97/57 (70) 91 10/11/16 07:13 74 16 96 Nasal Cannula 4.0 10/11/16 03:38 36.6 68 17 105/56 (72) 91 Nasal Cannula 3.0 10/11/16 00:00 Room Air 10/10/16 23:05 36.6 60 18 104/58 (73) 92 Nasal Cannula 2.0 10/10/16 20:00 Nasal Cannula 3.0 10/10/16 19:58 36.4 67 18 100/48 (65) 90 Nasal Cannula 3.0 10/10/16 19:17 62 16 93 Nasal Cannula 3.0 10/10/16 16:00 Nasal Cannula 3.0 10/10/16 15:37 36.8 61 18 101/54 (70) 90 Nasal Cannula 3.0 10/10/16 15:17 88 16 90 Nasal Cannula 3.0 Laboratory Results: Last 24 Hours Test 10/11/16 05:55 White Blood Count 9.06 K/uL Red Blood Count 3.74 M/uL Hemoglobin 11.1 g/dL Hematocrit 35.4 % Mean Corpuscular Volume 94.7 fL Mean Corpuscular Hemoglobin 29.7 pg Mean Corpuscular Hemoglobin Concent 31.4 g/dl RDW Standard Deviation 44.3 fL RDW Coefficient of Variation 12.8 % Platelet Count 214 K/uL Mean Platelet Volume 8.7 fL Activated Partial Thromboplast Time 33.3 SECONDS Partial Thromboplastin Ratio 1.3 Sodium Level 139 mmol/L Potassium Level 4.3 mmol/L Chloride Level 97 mmol/L Carbon Dioxide Level 38 mmol/L Anion Gap 4.0 mmol/L Blood Urea Nitrogen 25 mg/dl Creatinine 0.70 mg/dl Est Creatinine Clear Calc Drug Dose 119.0 ml/min Estimated GFR () 114.0 Estimated GFR (Non- 98.3 BUN/Creatinine Ratio 35.4 Random Glucose 126 mg/dl Calcium Level 9.2 mg/dl
--- NOTE | 2016-10-11 18:58 | Family Medicine Progress Note ---
Progress Note Date of Service Oct 11, 2016. Subjective Pt evaluation today including: conversation w/ patient, physical exam, chart review, lab review Pain: Right rib pain, improving with Morphine PO Intake: Good Voiding: no voiding problems, no incontinence Pain slightly improved Did not tolerate getting CT abdomen done yesterday; notes that he wasn't able to get arms of his head No issues overnight otherwise Patient states he would like to move forward with diagnostic work-up as he would want to see what treatment options are available Additional Comments: A 10 point review of systems was negative unless stated above. Medications Current Inpatient Medications Medications (Trade) Dose Ordered Sig/Abbi Route Start Time Stop Time Status Last Admin Dose Admin Ioversol (Optiray 320) 100 ml UD PRN IV 10/09/16 12:45 10/13/16 12:44 Acetaminophen (Tylenol Tab) 650 mg Q4H PRN PO 10/09/16 17:45 11/08/16 17:44 Al Hydrox/Mg Hydrox/Simethicone (Maalox Max Susp) 15 ml Q4H PRN PO 10/09/16 17:45 11/08/16 17:44 Magnesium Hydroxide (Milk Of Magnesia Susp) 30 ml Q12H PRN PO 10/09/16 17:45 11/08/16 17:44 Ondansetron HCl (Zofran Inj) 4 mg Q6H PRN IV 10/09/16 17:45 11/08/16 17:44 Polyethylene (Miralax Powder Packet) 17 gm DAILY PRN PO 10/09/16 17:45 11/08/16 17:44 Magnesium Oxide (Mag-Ox Tab) 400 mg DAILY PO 10/10/16 09:00 11/09/16 08:59 10/11/16 08:20 400 MG Atenolol (Tenormin Tab) 25 mg DAILY PO 10/10/16 09:00 11/09/16 08:59 10/09/16 20:51 25 MG Simvastatin (Zocor Tab) 5 mg DAILY PO 10/10/16 09:00 11/09/16 08:59 10/11/16 08:20 5 MG Albuterol/ Ipratropium (Duoneb) 3 ml QIDR INH 10/09/16 20:00 11/08/16 19:59 10/11/16 15:27 3 ML Morphine Sulfate (MoRPHine SULFATE INJ) 4 mg Q2H PRN IV 10/10/16 08:52 10/23/16 19:44 10/11/16 18:29 4 MG Ioversol (Optiray 320) 100 ml UD PRN IV 10/10/16 12:00 10/14/16 11:59 Ketorolac Tromethamine (Toradol Inj) 15 mg Q6H IV. 10/10/16 16:00 10/13/16 15:59 10/11/16 16:16 15 MG Levofloxacin (Levaquin Tab) 750 mg DAILY@11 PO 10/10/16 16:00 10/17/16 15:59 10/11/16 09:55 750 MG Budesonide/ Formoterol Fumarate (Symbicort 160/ 4.5 Inh) 2 puffs BID INH 10/10/16 21:00 11/09/16 20:59 10/11/16 08:19 2 PUFFS Tiotropium [place] (Spiriva Handihaler Inhaler) 1 puff QAM INH 10/11/16 09:00 11/10/16 08:59 10/11/16 08:19 1 PUFF Enoxaparin Sodium (Lovenox Inj) 90 mg Q12@0600,1800 SQ 10/10/16 16:00 11/09/16 15:59 10/11/16 16:16 90 MG Oxycodone/ Acetaminophen (Percocet 5-325mg Tab) 1 tab Q4H PRN PO 10/11/16 08:30 10/25/16 08:29 10/11/16 18:30 1 TAB Gabapentin (Neurontin Cap) 300 mg Taper BID PO 10/12/16 09:00 11/12/16 08:59 Lidocaine (Lidoderm Patch 5%) 1 patch QAM TD 10/11/16 09:00 11/10/16 08:59 10/11/16 09:48 1 PATCH Miscellaneous (Remove Lidoderm Patch) 1 ea DAILY@21 N/A 10/11/16 21:00 11/10/16 20:59 Gabapentin (Neurontin Cap) 300 mg HS PO 10/11/16 21:00 10/11/16 21:01 Objective Vital Signs Date Time Temp Pulse Resp B/P (MAP) Pulse Ox O2 Delivery O2 Flow Rate FiO2 10/11/16 16:00 Nasal Cannula 3.0 10/11/16 15:28 36.7 48 18 117/62 (80) 95 Nasal Cannula 3.0 10/11/16 15:28 50 16 95 Nasal Cannula 3.0 10/11/16 12:00 Nasal Cannula 3.0 10/11/16 11:33 36.4 50 20 100/57 (71) 99 3.0 10/11/16 11:30 77 12 94 Nasal Cannula 2.0 10/11/16 08:00 Nasal Cannula 3.0 10/11/16 07:36 36.7 53 16 97/57 (70) 91 10/11/16 07:13 74 16 96 Nasal Cannula 4.0 10/11/16 03:38 36.6 68 17 105/56 (72) 91 Nasal Cannula 3.0 10/11/16 00:00 Room Air 10/10/16 23:05 36.6 60 18 104/58 (73) 92 Nasal Cannula 2.0 10/10/16 20:00 Nasal Cannula 3.0 10/10/16 19:58 36.4 67 18 100/48 (65) 90 Nasal Cannula 3.0 10/10/16 19:17 62 16 93 Nasal Cannula 3.0 Physical Exam General Appearance: WD/WN, no apparent distress Eyes: normal inspection, EOMI ENT: hearing grossly normal, pharynx normal Neck: supple, no adenopathy, no JVD Respiratory/Chest: + pertinent finding (rigth chest wall tenderness; coarse breath sounds bilaterally mild expiratory wheezing) Cardiovascular: regular rate, rhythm, no gallop, no murmur Abdomen: normal bowel sounds, non tender, soft Extremities: non-tender, no pedal edema 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: alert, normal mood/affect, oriented x 3 Skin: normal color, warm/dry, no rash Lymphatic: no adenopathy Laboratory Results Last 24 Hours Test 10/11/16 05:55 White Blood Count 9.06 K/uL Red Blood Count 3.74 M/uL Hemoglobin 11.1 g/dL Hematocrit 35.4 % Mean Corpuscular Volume 94.7 fL Mean Corpuscular Hemoglobin 29.7 pg Mean Corpuscular Hemoglobin Concent 31.4 g/dl RDW Standard Deviation 44.3 fL RDW Coefficient of Variation 12.8 % Platelet Count 214 K/uL Mean Platelet Volume 8.7 fL Activated Partial Thromboplast Time 33.3 SECONDS Partial Thromboplastin Ratio 1.3 Sodium Level 139 mmol/L Potassium Level 4.3 mmol/L Chloride Level 97 mmol/L Carbon Dioxide Level 38 mmol/L Anion Gap 4.0 mmol/L Blood Urea Nitrogen 25 mg/dl Creatinine 0.70 mg/dl Est Creatinine Clear Calc Drug Dose 119.0 ml/min Estimated GFR () 114.0 Estimated GFR (Non- 98.3 BUN/Creatinine Ratio 35.4 Random Glucose 126 mg/dl Calcium Level 9.2 mg/dl Assessment and Plan 66 year old male with history of COPD and new PE, 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 Currently attempting to work-up for primary site, but still is in too much pain. Discussed case with pulmonary who recommends pleural biopsy via CT guidance. Evidence of pulmonary hypertension contra-indicates EBUS/ bronchoscopic approach. Our plan for him is as follows: Bilateral PE - Suspected 2/2 malignancy; work up for primary source as below - Continue Therapeutic Lovenox - Goal Sat with Hx of COPD > 88-90% Pulmonary Metastatic Malignancy of Unknown Primary - Multiple pulmonary and pleural based nodules on CT - Pulmonary recommendations appreciated - Tissue required for definitive identification; will aim for CT guided pleural biopsy; radiology consultation placed - CT abdomen/pelvis ordered but patient did not tolerate due to positioning - Pain management consulted; recommendations appreciated - Patient needs to have adequate pain management in order to have any pleural biopsy done Pneumonia vs Pneumonitis - Levaquin day 2/5 COPD - Exacerbation unlikely at this time - Resume home meds: Symbicort and Spiriva - Duoneb PRN Coronary Artery Disease - Continue ASA in case patient to go for procedure - Continue Atenolol and Simvastatin Pathological Right Rib Fracture - Morphine 4 mg q 4h - Pain management recommendations appreciated Gabapentin 300 TID Lidoderm patch Toradol 15 mg q6h DVT prophylaxis - Lovenox - SCD Disposition - Transfer to Med/Surg today Resident Physician Supervision Note: I was present with PGY2 Dr. Duane Chawla during the history and exam. I discussed the case with the resident and agree with the findings and plan as documented in the note. Any exceptions or clarifications are listed here: none. Pt still with considerable pain in chest, especially on right. Cough/breathing more comfortable today. Eating ok. at bedside. VSS O2 sats acceptable gen - NAD neck - no JVD heart - RRR lungs - wheezing much improved today, mild fine rales both bases abd - soft, NT, no masses ext - no edema CBC, BMP stable A/P: 1. b/l pulmonary emboli likely due to metastatic cancer 2. right-sided rib fractures - pathologic 3. T5 compression fracture - pathologic 4. LLL pneumonia vs atelectasis - pulmonary favoring latter 5. widespread apparent metastatic cancer 6. COPD with possible exacerbation - resolved 7. significant chest wall/musculoskeletal pain pain control - may need fentanyl patch with prn meds for breakthrough appreciate pain management consult - lidoderm patches & gabapentin initiated steroids stopped abx now PO appreciate pulmonary consultation appreciate rad onc consultation agree he needs tissue dx agree with d/c of heparin and changing to lovenox 1mg/kg q12h for PEs updated once again to med/surg today Documented By: Awais Griffin MD Continued [facility] stay due to: other (needs biopsy) Discharge planning: uncertain
[2016-10-11] MEDS ORDERED: GABAPENTIN 300 MG CAP PO SCH (21:00)
[2016-10-12] VITALS (7 sets, daily range): BP systolic 108–136; BP diastolic 58–64; PULSE 49–85; TEMP 36.5–36.9; O2SAT 95–96
[2016-10-12] MEDS: MoRPHine SULFATE 4 MG/ML 1 ML CARP\\VIAL IV PRN ×6 (00:12→23:21)
[2016-10-12] MEDS: KETOROLAC TROMETHAMINE 15 MG/ML VIAL IV. SCH ×4 (03:45→22:00)
[2016-10-12] MEDS: ENOXAPARIN 100 MG/1ML SYR SQ SCH ×2 (05:42→18:03)
[2016-10-12] MEDS: ALBUT/IPRATROP 3MG/0.5MG NEB 3 ML VIAL INH SCH ×2 (06:49→10:57)
[2016-10-12 07:10] LABS: HEMATOCRIT 35.3 % (42-52); MEAN CELL VOLUME 96.2 fL (80-100); MEAN CORPUSCULAR HEMOGLOBIN 28.6 pg (25-34); MEAN CORPUSCULAR HGB CONC 29.7 g/dl (32-36); MEAN PLATELET VOLUME 8.7 fL (7.4-10.4); PLATELET COUNT 220 K/uL (130-400); RED BLOOD COUNT 3.67 M/uL (4.7-6.1); WHITE BLOOD COUNT 10.08 K/uL (4.8-10.8)
[2016-10-12] MEDS: TIOTROPIUM BROMIDE 5 PUFF/90 MCG INH INH SCH (07:35)
[2016-10-12] MEDS: BUDESONIDE/FORMOTEROL FUMARATE 160/4.5 60 PUFFS/INHALER INH SCH ×2 (07:35→20:09)
[2016-10-12] MEDS: SIMVASTATIN 5 MG TAB PO SCH (07:36)
[2016-10-12] MEDS: MAGNESIUM OXIDE 400 MG TAB PO SCH (07:36)
[2016-10-12] MEDS: LIDODERM (LIDOCAINE) PATCH 5% TD SCH (07:40)
[2016-10-12 07:44] LABS: CALCIUM 8.8 mg/dl (8.5-10.1); CREATININE 0.64 mg/dl (0.60-1.40); POTASSIUM 3.9 mmol/L (3.5-5.1)
--- NOTE | 2016-10-12 09:14 | Family Medicine Progress Note ---
Progress Note Date of Service Oct 12, 2016. Subjective Pt evaluation today including: conversation w/ patient, conversation w/ family Pain: 5/10 pain, localized right lateral chest PO Intake: Good appetite. Tolerating diet Voiding: no voiding problems Patient denies acute overnight events. Says that pain has improved somewhat, but is ongoing. He is getting some scheduled pain meds, but still requiring PRN morphine quite frequently. His breathing is well on supplemental oxygen. He is keen on trying to ambulate today, although he is currently on fall precautions. Constitutional: No fever, No chills Respiratory: No cough, No wheezing, No shortness of breath Cardiovascular: No chest pain, No orthopnea, No PND, No palpitations Abdomen: + constipation, No pain, No nausea, No vomiting, No diarrhea Musculoskeletal: + problem reported (Right-sided chest wall pain) Male : No dysuria, No hematuria Skin: No rash, No itch, No new/changing skin lesions Objective Vital Signs Date Time Temp Pulse Resp B/P (MAP) Pulse Ox O2 Delivery O2 Flow Rate FiO2 10/12/16 07:41 62 10/12/16 07:25 36.5 85 20 136/58 (84) 95 10/12/16 06:49 58 16 95 Nasal Cannula 3.0 10/12/16 00:00 Nasal Cannula 3.0 10/11/16 23:33 36.8 48 20 115/56 (75) 98 Nasal Cannula 3.0 10/11/16 21:29 36.7 54 16 118/65 (82) 91 Nasal Cannula 3.0 10/11/16 20:45 36.7 52 20 96 3.0 10/11/16 20:00 96 Nasal Cannula 10/11/16 19:27 36.7 52 20 101/45 (63) 96 Nasal Cannula 3.0 10/11/16 19:07 57 16 97 Nasal Cannula 3.0 10/11/16 16:00 Nasal Cannula 3.0 10/11/16 15:28 36.7 48 18 117/62 (80) 95 Nasal Cannula 3.0 10/11/16 15:28 50 16 95 Nasal Cannula 3.0 10/11/16 12:00 Nasal Cannula 3.0 10/11/16 11:33 36.4 50 20 100/57 (71) 99 3.0 10/11/16 11:30 77 12 94 Nasal Cannula 2.0 Physical Exam General Appearance: WD/WN, no apparent distress Eyes: normal inspection ENT: hearing grossly normal, TMs normal Neck: supple, no adenopathy, no JVD Respiratory/Chest: no respiratory distress, no accessory muscle use, + crackles (bibasilar), + pertinent finding (Chest wall tendermess on right lateral chest and axillary region worsens with palpation) Cardiovascular: regular rate, rhythm, no edema, no murmur Abdomen: normal bowel sounds, non tender, soft Extremities: normal inspection, no pedal edema, no calf tenderness, + pertinent finding (ROM in right shoulder reduced in flexion due to pain) 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: alert, normal mood/affect, oriented x 3 Skin: normal color, warm/dry, no rash Laboratory Results Results Past 24 Hours Test 10/12/16 06:17 Range/Units White Blood Count 10.08 4.8-10.8 K/uL Red Blood Count 3.67 4.7-6.1 M/uL Hemoglobin 10.5 14.0-18.0 g/dL Hematocrit 35.3 42-52 % Mean Corpuscular Volume 96.2 80-100 fL Mean Corpuscular Hemoglobin 28.6 25-34 pg Mean Corpuscular Hemoglobin Concent 29.7 32-36 g/dl RDW Standard Deviation 45.7 36.4-46.3 fL RDW Coefficient of Variation 13.2 11.5-14.5 % Platelet Count 220 130-400 K/uL Mean Platelet Volume 8.7 7.4-10.4 fL Sodium Level 142 136-145 mmol/L Potassium Level 3.9 3.5-5.1 mmol/L Chloride Level 101 98-107 mmol/L Carbon Dioxide Level 35 21-32 mmol/L Anion Gap 6.0 3-11 mmol/L Blood Urea Nitrogen 30 7-18 mg/dl Creatinine 0.64 0.60-1.40 mg/dl Est Creatinine Clear Calc Drug Dose 130.1 ml/min Estimated GFR () 118.3 Estimated GFR (Non- 102.0 BUN/Creatinine Ratio 47.0 10-20 Random Glucose 77 70-99 mg/dl Calcium Level 8.8 8.5-10.1 mg/dl Assessment and Plan 66 year old male with history of COPD admitted with dyspnea and R rib pain 2/2 trauma 1 month ago, and found to have new PE and pathological rib fractures, 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 Currently attempting to work-up for primary site, but still is in too much pain. Case has been discussed with pulmonology, radiology, radiation oncology. General plan includes pain management prior to transthoracic biopsy ideally via CT guidance, since evidence of pulmonary hypertension contra-indicates EBUS/ bronchoscopic approach Bilateral PE - Noted on CXR and chest CT. Suspected 2/2 malignancy; work up for primary source as below. - Continue therapeutic Lovenox for today. (Will hold on Friday for possible procedure on Friday.) - Supplemental oxygen, aiming sats > 88-90% given h/o COPD Pulmonary Metastatic Malignancy of Unknown Primary - Multiple pulmonary and pleural based nodules on CT - Pulmonary consulted, recommendations appreciated - Tissue required for definitive identification; will aim for CT guided pleural biopsy; radiology consulted - CT abdomen/pelvis ordered but patient did not tolerate due to positioning - Pain management consulted; recommendations appreciated - Patient needs to have adequate pain management in order to have any pleural biopsy done Pain management - Morphine 4 mg q 4h - Pain management recommendations appreciated Gabapentin 300 TID Lidoderm patch Toradol 15 mg q6h - Added fentanyl patch 12mcg Pneumonia vs Pneumonitis - Levaquin day 3 COPD - Exacerbation unlikely at this time - Continue home meds: Symbicort and Spiriva - Duoneb PRN Coronary Artery Disease - ASA held since 10/10/16 in view of potential procedure - Continue Atenolol and Simvastatin DVT prophylaxis - Lovenox - SCD Disposition - Med/Surg FULL RESUSCITATION Resident Physician Supervision Note: I was present with PGY1 Dr. Sabine Daniel during the history and exam. I discussed the case with the resident and agree with the findings and plan as documented in the note. Any exceptions or clarifications are listed here: none. Pt still with considerable pain in chest, especially on right. Eating is normal. Still no BM. VSS O2 sats acceptable gen - NAD neck - no JVD heart - RRR lungs - mild fine rales both bases; scant scattered wheeze b/l abd - soft, NT, no masses ext - no edema CBC, BMP stable A/P: 1. b/l pulmonary emboli likely due to metastatic cancer 2. right-sided rib fractures - pathologic 3. T5 compression fracture - pathologic 4. LLL pneumonia vs atelectasis - pulmonary team favoring latter 5. widespread apparent metastatic cancer 6. COPD with possible exacerbation - resolved 7. significant chest wall/musculoskeletal pain pain control - add fentanyl patch with prn meds for breakthrough appreciate pain management consult - lidoderm patches & gabapentin initiated finish abx course for bronchitis/COPD appreciate pulmonary consultation appreciate rad onc consultation agree he needs tissue dx cont lovenox 1mg/kg q12h for PEs Awais Griffin MD Continued [facility] stay due to: inadequate oral pain control, ambulation difficulties Discharge planning: uncertain Resident Tracking Resident Involvement: Resident Care Provided Care Provided: Adult Hospital Medicine
[2016-10-12] MEDS: LEVOFLOXACIN 750 MG TAB PO SCH (10:16)
[2016-10-12] MEDS ORDERED: BISACODYL 5 MG TABEC PO PRN (12:45)
[2016-10-12] MEDS: FENTANYL 12 MCG/HR TDSY TD SCH (13:48)
[2016-10-12] MEDS: IPRATROPIUM BROMIDE/ALBUTEROL respimat INH INH SCH ×2 (15:53→20:09)
[2016-10-12] MEDS: CHECK FENTANYL PATCH PLACEMENT SCH ×2 (15:56→23:23)
[2016-10-12] MEDS: GABAPENTIN 300 MG CAP PO SCH (20:10)
[2016-10-12] MEDS: DOCUSATE SODIUM 100 MG CAP PO SCH (20:10)
[2016-10-13] MEDS: KETOROLAC TROMETHAMINE 15 MG/ML VIAL IV. SCH ×2 (04:26→10:11)
[2016-10-13 07:02] VITALS: BP 114/67; PULSE 55; TEMP 36.7; O2SAT 92
[2016-10-13] MEDS: IPRATROPIUM BROMIDE/ALBUTEROL respimat INH INH SCH ×4 (07:19→19:31)
[2016-10-13] MEDS: MoRPHine SULFATE 4 MG/ML 1 ML CARP\\VIAL IV PRN ×2 (07:19→14:34)
[2016-10-13] MEDS: BUDESONIDE/FORMOTEROL FUMARATE 160/4.5 60 PUFFS/INHALER INH SCH ×2 (07:20→19:31)
[2016-10-13] MEDS: CHECK FENTANYL PATCH PLACEMENT SCH ×2 (07:20→16:00)
[2016-10-13] MEDS: SIMVASTATIN 5 MG TAB PO SCH (07:20)
[2016-10-13] MEDS: TIOTROPIUM BROMIDE 5 PUFF/90 MCG INH INH SCH (07:20)
[2016-10-13] MEDS: POLYETHYLENE (MIRALAX) 17 GM PACK PO SCH (07:21)
[2016-10-13] MEDS: DOCUSATE SODIUM 100 MG CAP PO SCH ×2 (07:21→19:31)
[2016-10-13] MEDS: GABAPENTIN 300 MG CAP PO SCH ×3 (07:21→19:32)
[2016-10-13] MEDS: MAGNESIUM OXIDE 400 MG TAB PO SCH (07:21)
[2016-10-13] MEDS: LIDODERM (LIDOCAINE) PATCH 5% TD SCH (07:22)
--- NOTE | 2016-10-13 08:54 | Family Medicine Progress Note ---
Progress Note Date of Service Oct 13, 2016. Subjective Pt evaluation today including: conversation w/ patient Patient denies acute overnight events. Says that pain has improved somewhat, but is ongoing. He rates severity as 4/10. Along with scheduled Toradol and the fentanyl patch, patient is requiring regular morphine q4h. There is hope that morphine frequency will diminish as fentanyl bioavailability increases. He is breathing is well on supplemental oxygen. He is keen on trying to ambulate today , although he is currently on fall precautions. Awaiting OT and PT evaluation. All Other Systems: Reviewed and Negative Objective Vital Signs Date Time Temp Pulse Resp B/P (MAP) Pulse Ox O2 Delivery O2 Flow Rate FiO2 10/13/16 07:02 36.7 55 18 114/67 (83) 92 Room Air 10/12/16 23:59 Nasal Cannula 3.0 10/12/16 23:44 36.9 53 18 117/60 (79) 96 Nasal Cannula 3.0 10/12/16 19:38 36.6 49 18 116/64 (81) 96 Nasal Cannula 3.0 10/12/16 16:03 36.8 49 20 108/58 (75) 95 10/12/16 16:00 Nasal Cannula 3.0 10/12/16 10:58 53 16 95 Nasal Cannula 3.0 Physical Exam General Appearance: WD/WN, no apparent distress Eyes: normal inspection ENT: hearing grossly normal, pharynx normal Neck: supple, no adenopathy, no JVD Respiratory/Chest: no respiratory distress, no accessory muscle use, + rales, + pertinent finding (right lateral chest wall tenderness on palpation) Cardiovascular: regular rate, rhythm, no edema, no murmur Abdomen: normal bowel sounds, non tender, soft Extremities: normal inspection, no pedal edema, no calf tenderness 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: alert, normal mood/affect, oriented x 3 Skin: normal color, warm/dry, no rash Assessment and Plan 66 year old male with history of COPD admitted with dyspnea and R rib pain 2/2 trauma 1 month ago, and found to have new PE and pathological rib fractures, 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 Currently attempting to work-up for primary site, but still is in too much pain. Case has been discussed with pulmonology, radiology, radiation oncology. General plan includes pain management prior to transthoracic biopsy ideally via CT guidance, since evidence of pulmonary hypertension contra-indicates EBUS/ bronchoscopic approach Bilateral PE - Noted on CXR and chest CT. Suspected 2/2 malignancy; work up for primary source as below. -Therapeutic Lovenox for today in view of procedure tomorrow. - Supplemental oxygen, aiming sats > 88-90% given h/o COPD Pulmonary Metastatic Malignancy of Unknown Primary - Multiple pulmonary and pleural based nodules on CT. Patient needs to have adequate pain management in order to have any diagnostic testing done. Pain management consulted; recommendations appreciated - Pulmonary consulted, recommendations appreciated - Tissue required for definitive identification; will aim for CT guided transthoracic pleural biopsy; radiology consulted - Lovenox held and patient NPO after midnight. Restart therapeutic dosing and diet as appropriate post biopsy on 10/14/16. - CT abdomen/pelvis ordered but patient did not tolerate due to positioning - Aiming to re-try attaining CT scans on 10/14/16 Pain management - Morphine 4 mg q4h PRN pain - Pain management recommendations appreciated Gabapentin 300 TID Lidoderm patch Toradol 15 mg q6h - discontinue in view of reaching 5 days, switched to topical Voltaren gel - Added long-acting fentanyl patch 12mcg Pneumonia vs Pneumonitis - Levaquin day 4/ COPD - Exacerbation unlikely at this time - Continue home meds: Symbicort and Spiriva - Duoneb PRN Coronary Artery Disease - ASA held since 10/10/16 in view of potential procedure - Continue Atenolol and Simvastatin DVT prophylaxis - Lovenox (held temporarily) - SCD Disposition - Med/Surg FULL RESUSCITATION Resident Physician Supervision Note: I was present with PGY1 Dr. Sabine Daniel during the history and exam. I discussed the case with the resident and agree with the findings and plan as documented in the note. Any exceptions or clarifications are listed here: none. Pt still with considerable pain in chest, especially on right, despite toradol IV, recent addition of fentanyl patch, copious morphine IV prn, and gabapentin. He has been refusing lidoderm because "I don't see that it helps." he was quite frustrated during my visit - he "can't understand why he hurts so much." Eating is normal. Still no BM. VSS O2 sats acceptable gen - NAD neck - no JVD heart - RRR lungs - mild fine rales both bases abd - soft, NT, no masses ext - no edema A/P: 1. b/l pulmonary emboli likely due to metastatic cancer 2. right-sided rib fractures - pathologic - with severe pain from such 3. T5 compression fracture - pathologic - no symptoms, but imaging showed central canal compromise 4. LLL pneumonia vs atelectasis - pulmonary team favoring latter, but finishing course of antibiotics for possible pneumonia 5. widespread apparent metastatic cancer 6. COPD with possible exacerbation - resolved 7. significant chest wall/musculoskeletal pain pain control - cont fentanyl patch; cont gabapentin; approaching 5 days of toradol use; stop such - change to voltaren gel qid topically (he is refusing lidoderms) change IV morphine to dilaudid IV prn to see if this helps him more consider increasing fentanyl patch to 25mcg in a few days if needed finish abx course for bronchitis/COPD appreciate pulmonary consultation appreciate rad onc consultation - T5 radiation to occur in the near future agree he needs tissue dx - plan for lung bx by radiology on FRIDAY cont lovenox 1mg/kg q12h for PEs but hold tonight in anticipation of bx tomorrow supportive therapy given to patient in light of his numerous problems and 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
[2016-10-13] MEDS: LEVOFLOXACIN 750 MG TAB PO SCH (10:11)
[2016-10-13 15:55] VITALS: BP 120/62; PULSE 62; TEMP 37; O2SAT 91
[2016-10-13] MEDS: OXYCODONE/ACETAMINOPHEN 5-325 TAB PO PRN (16:02)
[2016-10-13] MEDS: DICLOFENAC SOD 1% GEL 100 GM TUBE EXT SCH ×3 (17:03→21:27)
[2016-10-13 19:36] VITALS: BP 146/72; PULSE 77; TEMP 36.9; O2SAT 91
[2016-10-13 23:06] VITALS: BP 130/74; PULSE 71; TEMP 36.9; O2SAT 91
[2016-10-14] MEDS: CHECK FENTANYL PATCH PLACEMENT SCH ×4 (00:15→23:03)
[2016-10-14] MEDS: HYDROmorphone INJ 1 MG/ML SYR IV PRN ×4 (00:15→15:12)
[2016-10-14 04:00] VITALS: BP 138/77; PULSE 71; TEMP 36.9; O2SAT 92
[2016-10-14 06:00] LABS: HEMATOCRIT 42.2 % (42-52); MEAN CORPUSCULAR HEMOGLOBIN 29.9 pg (25-34); MEAN CORPUSCULAR HGB CONC 30.8 g/dl (32-36); MEAN PLATELET VOLUME 8.8 fL (7.4-10.4); PLATELET COUNT 230 K/uL (130-400); RED BLOOD COUNT 4.35 M/uL (4.7-6.1)
[2016-10-14 06:08] LABS: PARTIAL THROMBOPLASTIN RATIO 1.2
[2016-10-14 06:39] LABS: BUN/CREATININE RATIO 26.2 (10-20); CALCIUM 9.3 mg/dl (8.5-10.1); CREATININE 0.65 mg/dl (0.60-1.40); POTASSIUM 4.2 mmol/L (3.5-5.1)
[2016-10-14 07:28] VITALS: BP 105/65; PULSE 73; TEMP 36.9; O2SAT 93
--- NOTE | 2016-10-14 07:44 | Family Medicine Progress Note ---
Progress Note Date of Service Oct 14, 2016. Subjective Pt evaluation today including: conversation w/ patient, physical exam, chart review, lab review The patient was seen and examined at bedside. Pt could not tolerate palliative radiation therapy. Will order 2mg IV Dilautid PRN for pleural biopsy tomorrow. Pt did not want to try again. The difficulty is raising the arms above the head. Patient is eating and urinating well. Plan of care was described to the patient and all questions were answered. ROS: No fevers, no chest pain, no SOB, no rash, good appetite, no diarrhea. Objective Physical Exam Notes: General Appearance: WD/WN, no apparent distress Respiratory/Chest: lungs clear, normal breath sounds, no respiratory distress, no accessory muscle use, + pertinent finding (chest is tender to palpation in the right axial area) Cardiovascular: regular rate, rhythm, no edema, no gallop, no JVD, no murmur Abdomen: normal bowel sounds, non tender, soft, no organomegaly, no pulsatile mass Extremities: non-tender, no pedal edema, no calf tenderness Assessment and Plan 66M with history of COPD admitted with dyspnea and R rib pain 2/2 trauma 1 month ago, and found to have new PE and pathological rib fractures, suspected 2/ 2 metastatic carcinoma of unknown primary source. Currently attempting to work-up for primary site, but still is in too much pain. Case has been discussed with pulmonology, radiology, radiation oncology. General plan includes pain management prior to transthoracic biopsy ideally via CT guidance, since evidence of pulmonary hypertension contra-indicates EBUS/ bronchoscopic approach Bilateral PE - Noted on CXR and chest CT. Suspected 2/2 malignancy; work up for primary source as below. - Therapeutic Lovenox for today in view of procedure tomorrow. - Supplemental oxygen, aiming sats > 88-90% given h/o COPD Pulmonary Metastatic Malignancy of Unknown Primary - Multiple pulmonary and pleural based nodules on CT. Patient needs to have adequate pain management in order to have any diagnostic testing done. Pain management consulted; recommendations appreciated - Pulmonary consulted, recommendations appreciated - Tissue required for definitive identification; will aim for CT guided transthoracic pleural biopsy; radiology consulted - One dose of Lovenox 90mg given today, will put on 2mg IV Dilautid prior to procedure in hopes of controlling pt's pain. Restart therapeutic dosing and diet as appropriate post biopsy. - CT abdomen/pelvis ordered but patient did not tolerate due to positioning - Aiming to re-try attaining CT scans on 10/15/16 Pain management - c/w Morphine 4 mg q4h PRN pain - Pain management recommendations appreciated Gabapentin 300 TID Lidoderm patch Toradol 15 mg q6h - discontinue in view of reaching 5 days, switched to topical Voltaren gel - Added long-acting fentanyl patch 12mcg Pneumonia vs Pneumonitis - Levaquin day 09/06 COPD - Exacerbation unlikely at this time - Continue home meds: Symbicort and Spiriva - Duoneb PRN Coronary Artery Disease - ASA held since 10/10/16 in view of potential procedure - Continue Atenolol and Simvastatin DVT prophylaxis - Lovenox (held temporarily) - SCD Disposition - Med/Surg FULL RESUSCITATION Resident Physician Supervision Note: I interviewed and examined the patient. Discussed with Dr. Bernabe and agree with findings and plan as documented in the note. Any exceptions or clarifications are listed here: None Documented By: Santiago Benitez pain with reaching up above head - couldnt do for XRT, doesn't want to for bx yet ROS otherwise negative except for as above vitals noted nad breathing unlabored no pallor or icterus metastatic malignancy - pain control, supportive care, work towards definitive dx PE - lovenox otherwise as above Resident Involvement: Resident Care Provided Care Provided: Adult Hospital Medicine
[2016-10-14] MEDS: DICLOFENAC SOD 1% GEL 100 GM TUBE EXT SCH ×4 (07:53→20:05)
[2016-10-14] MEDS: BUDESONIDE/FORMOTEROL FUMARATE 160/4.5 60 PUFFS/INHALER INH SCH ×2 (07:53→20:05)
[2016-10-14] MEDS: IPRATROPIUM BROMIDE/ALBUTEROL respimat INH INH SCH ×4 (07:53→20:06)
[2016-10-14] MEDS: MAGNESIUM OXIDE 400 MG TAB PO SCH (07:54)
[2016-10-14] MEDS: TIOTROPIUM BROMIDE 5 PUFF/90 MCG INH INH SCH (07:54)
[2016-10-14] MEDS: DOCUSATE SODIUM 100 MG CAP PO SCH ×2 (07:54→20:05)
[2016-10-14] MEDS: GABAPENTIN 300 MG CAP PO SCH ×3 (07:54→20:05)
[2016-10-14] MEDS: SIMVASTATIN 5 MG TAB PO SCH (07:55)
[2016-10-14] MEDS: LIDODERM (LIDOCAINE) PATCH 5% TD SCH (07:55)
[2016-10-14] MEDS: POLYETHYLENE (MIRALAX) 17 GM PACK PO SCH (07:56)
[2016-10-14] MEDS: OXYCODONE/ACETAMINOPHEN 5-325 TAB PO PRN (08:06)
[2016-10-14 08:30] VITALS: O2SAT 93
[2016-10-14] MEDS: LEVOFLOXACIN 750 MG TAB PO SCH (10:59)
--- NOTE | 2016-10-14 11:32 | PULMONARY PROGRESS NOTE ---
DATE: 10/14/2016 TIME: 10:40 a.m. SUBJECTIVE: The patient continues to have significant pain. This morning he states he was sent to the CAT scan Department, where they attempted to do another CAT scan. He had too much pain when he had to lift his arms above shoulder length. He was unable to complete the CAT scan. He is uncertain if he is having a biopsy of the chest today. He has not had significant shortness of breath. His breathing at rest is fairly comfortable. The biggest issue for the patient is the pain. The patient relates that he really felt well until he started with the pain in the chest about 6 weeks ago. He did not notice any significant problems before that. OBJECTIVE: GENERAL: The patient was comfortable appearing at rest. VITAL SIGNS: Temperature is 36.9. Respiratory rate was 18 breaths per minute. Saturations were 93% on 3 liters. Blood pressure this morning 105/65. HEENT: His pupils were reactive to light and equal in size. Mouth exam showed no acute findings. NECK: Palpation of the neck reveals no lymph nodes or masses. CHEST: Normal expansion and development. HEART: Heart rate was 73. Occasional extrasystoles were heard. LUNGS: Auscultation of the lung clay reveals mild wheeze on inspiration and expiration bilaterally. He was in no distress with this. ABDOMEN: Soft. Bowel sounds were normal. There was no tenderness to palpation. EXTREMITIES: Reveals brown skin discoloration of both lower extremities. There was no cyanosis, clubbing or edema. LABORATORY DATA: White count today was 11.9. Hemoglobin is 13. Platelets are 230,000. PTT today was 31.7. Electrolytes show sodium 137, potassium 4.2, chloride 98, bicarb 36. The elevated CO2 on the lights could well suggest elevation of pCO2. His BUN was 17 with a creatinine of 0.65. Blood sugar was 90. Calcium was 9.3. ASSESSMENT: 1. Pulmonary embolism-bilaterally. 2. Mass, right upper lobe-likely malignant. 3. Multiple lung nodules likely representing metastatic disease. 4. Right hilar adenopathy-likely malignant. 5. Emphysema. 6. Metastatic disease to T5 and L1. 7. Metastatic disease to the right 11th rib and left 8th rib. COMMENTS AND RECOMMENDATIONS: The patient needs optimum pain management such that he could tolerate having a biopsy done as well as further CAT scans. Pain management apparently is involved. He may well need to have some IV Dilaudid just prior to the procedure or CAT scan. The patient's respiratory status seems stable, although he has some wheezes on exam and he has an elevated pCO2 on his electrolytes. For now, he is receiving Combivent Respimat as well as tiotropium and Symbicort. He does not complain of dyspnea even though he has findings that were abnormal. The biopsy needs to be done obviously for planning his treatment. The decision will need to be made about his biopsy, so that the Lovenox could be resumed if he is not going to have it.
[2016-10-14 11:44] VITALS: BP 100/52; PULSE 63; TEMP 36.8; O2SAT 94
[2016-10-14] MEDS ORDERED: HYDROmorphone INJ 2 MG/ML SYR/VIAL IV PRN (13:00)
[2016-10-14] MEDS ORDERED: ENOXAPARIN 1 MG/KG SQ SCH (13:45)
[2016-10-14] MEDS ORDERED: ENOXAPARIN 100 MG/1ML SYR SQ STA (14:06)
[2016-10-14 15:37] VITALS: BP 101/64; PULSE 74; TEMP 37.1; O2SAT 92
[2016-10-14 20:25] VITALS: BP 100/61; PULSE 69; TEMP 36.9; O2SAT 91
[2016-10-15 00:09] VITALS: BP 111/65; PULSE 69; TEMP 36.9; O2SAT 91
[2016-10-15] MEDS: HYDROmorphone INJ 1 MG/ML SYR IV PRN ×3 (03:06→23:11)
[2016-10-15 05:51] LABS: HEMATOCRIT 37.1 % (42-52); MEAN CELL VOLUME 96.9 fL (80-100); MEAN CORPUSCULAR HEMOGLOBIN 30.8 pg (25-34); MEAN CORPUSCULAR HGB CONC 31.8 g/dl (32-36); MEAN PLATELET VOLUME 8.9 fL (7.4-10.4); PLATELET COUNT 196 K/uL (130-400); RED BLOOD COUNT 3.83 M/uL (4.7-6.1)
[2016-10-15 06:23] LABS: CALCIUM 8.9 mg/dl (8.5-10.1); CREATININE 0.53 mg/dl (0.60-1.40); POTASSIUM 4.2 mmol/L (3.5-5.1)
--- NOTE | 2016-10-15 07:16 | Family Medicine Progress Note ---
Progress Note Date of Service Oct 15, 2016. Subjective Pt evaluation today including: conversation w/ patient, physical exam, chart review, lab review Pt was seen and examined at bedside. NPO for pleural guided biopsy today. Will be premedicated with Dilautid 2mg IV before procedure. Possible radiology imaging afterwards with proper premedication. Pt reports continued left rib pain. Otherwise no new complaints. ROS: Denies SOB, denies chest pain, denies ankle pian, pt was ambulating well with OT and PT. Pt understands plan and goals of care. Objective Physical Exam General Appearance: WD/WN, no apparent distress Respiratory/Chest: chest non-tender, lungs clear, normal breath sounds, no respiratory distress, no accessory muscle use Cardiovascular: no JVD, no murmur, + irregularly irregular Abdomen: normal bowel sounds, non tender, soft, no organomegaly Extremities: normal range of motion, non-tender, normal inspection, no pedal edema, no calf tenderness, + pertinent finding (Tenderness over right chest, pt cannot put hands over head w extended period of time while supine. ) 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: alert, normal mood/affect, oriented x [address] OF THE ABDOMEN AND PELVIS WITH CONTRAST CLINICAL HISTORY: Lung metastases. Unknown primary. COMPARISON STUDY: None. TECHNIQUE: Following IV administration of 118 mL of Optiray-320, axial images of the abdomen and pelvis were obtained from the lung bases to the proximal femurs. Images were reviewed in the axial, sagittal, and coronal planes. IV contrast was administered without complication. CT DOSE: 1051.42 mGycm FINDINGS: Visualized portions of the lower chest demonstrate interval development of near complete right lower lobe collapse with a trace right pleural effusion. Left lower lobe atelectasis is present. There are extensive secretions within visualized portions of the right tracheobronchial tree. Innumerable nodules are noted within visualized portions of the lungs. Note is made of a 2.3 cm segment 4/8 hepatic lesion and a 1.5 cm segment 4 lesion. These are consistent with metastases. The spleen, adrenal glands and pancreas are unremarkable. There is no biliary or pancreatic ductal dilatation. Numerous water attenuation renal lesions reflect cysts. There are numerous subcentimeter renal lesions which are too small to characterize. There is no abdominal or pelvic lymphadenopathy. There is a moderate amount of stool within the colon. Images of the pelvis are degraded by streak artifact from right hip arthroplasty. There is a colonic diverticulosis without evidence for acute diverticulitis. Note is made of a saccular 3.5 x 2.4 cm infrarenal abdominal aortic aneurysm with plaque. There is extensive atherosclerotic plaque within the abdominal aorta. There are numerous lytic lesions within visualized skeletal structures, including a 2.8 cm lesion within the medial left iliac bone. There are numerous lumbar spine lytic lesions. There is also a 2.7 cm lesion within the intertrochanteric portion of the right femur adjacent to a right hip arthroplasty. IMPRESSION: 1. Findings consistent with extensive metastatic disease with several liver metastases, innumerable pulmonary nodules and numerous lytic skeletal lesions, including lumbar spine metastases and a 2.7 cm right femoral intertrochanteric lesion adjacent to the right hip arthroplasty. 2. 3.5 x 2.4 cm infrarenal saccular abdominal aortic aneurysm. 3. Interval development of near complete right lower lobe collapse with extensive secretions within visualized portions of the tracheobronchial tree. HEAD CT NONCONTRAST CT DOSE: 788.63 mGycm HISTORY: Metastases and focal neurologic findings (weakness) TECHNIQUE: Multiaxial CT images of the head were performed without the use of intravenous contrast. Automated exposure control was utilized for this study. Of note, there is residual contrast within the brain from the recent abdomen and pelvis CT. Comparison: None. Findings: The paranasal sinuses and mastoid air cells are clear. The calvarium and skull base are intact. The ventricles and sulci are within normal limits. There is no mass, hematoma, midline shift, or acute infarct. No abnormal enhancement identified. There are few small hypodense foci within the periventricular white matter. This suggests mild microvascular ischemic change. Impression: No acute intracranial abnormality. No evidence for intracranial metastatic disease. ULTRASOUND BILATERAL LOWER EXTREMITY VENOUS CLINICAL HISTORY: Hypoxia. COMPARISON STUDY: No priors. TECHNIQUE: Real-time, grayscale, and color Doppler sonography of the deep veins of the right and left lower extremity was performed from the inguinal crease to the calf. Compression and augmentation were utilized. FINDINGS: There is no sonographic evidence of acute deep venous thrombosis identified in the right or left lower extremity. Trace echogenic chronic thrombus is identified within the common femoral vein bilaterally. The common femoral, superficial femoral, and popliteal veins are patent and normally compressible bilaterally. The greater saphenous vein and the profunda femoris vein at the junction with the common femoral vein are clear in both legs. The visualized calf veins are patent bilaterally. There is a multiloculated popliteal cyst on the right. The loculations measure 3.6 x 1.6 x 3.3 cm and 3.1 x 1.5 x 2.4 cm. IMPRESSION: 1. There is no sonographic evidence of acute deep venous thrombosis identified in the right or left lower extremity. 2. Trace echogenic chronic thrombus is seen within the common femoral vein bilaterally. 3. Multiloculated right popliteal cyst. CT ANGIOGRAM OF THE CHEST CLINICAL HISTORY: Dyspnea. Fall with right-sided chest pain. COMPARISON STUDY: Chest CT dated 05/02/2010. TECHNIQUE: Following the IV administration of 93 cc of Optiray 320, CT angiogram of the chest was performed from the upper abdomen to the thoracic inlet utilizing the pulmonary embolus protocol. Images are reviewed in the axial, sagittal, and coronal planes. 3-D MIPS images are created and assessed. IV contrast was administered without complication. CT DOSE: 568.43 mGy.cm FINDINGS: Thyroid: Imaged portions of the thyroid gland are normal in size and attenuation. Thoracic aorta: There is atherosclerotic calcification of the thoracic aorta, which is normal in caliber and demonstrates standard 3-vessel arch anatomy. No dissection is seen. Pulmonary vasculature: The pulmonary trunk is markedly dilated, measuring 4.6 cm in diameter. This suggests pulmonary artery hypertension. There are filling defects within the left lower lobar pulmonary artery which extend in the segmental and subsegmental branches. This is consistent with pulmonary embolus. Segmental pulmonary emboli are also seen in the right lower lobe pulmonary artery on image #103. Heart: The heart is enlarged and without pericardial effusion. The coronary arteries are densely calcified. Lungs and pleural spaces: Emphysema is noted. Patchy airspace opacities are present in the left lower lobe. No pleural effusion is identified. Minimal secretions are seen in the trachea. There are numerous (greater than 30) irregular pulmonary and pleural-based nodules consistent with multifocal pulmonary metastatic disease. The largest lesion is present in the anterior right upper lobe adjacent to the pleura on image #209. This measures 3.8 x 1.9 cm adnexa appears to extend through the pleura. A pleural based lesion in the right upper lobe on image #217 measures 2.7 cm. Mediastinum: There are mildly enlarged mediastinal lymph nodes. The largest is seen in the AP window on image #193 and measures up to 1.3 cm in short axis. Annette: A right hilar lymph node/mass is seen on image #172 and measures 4.6 x 3.1 cm. No left hilar adenopathy is seen. Lower neck: There is no supraclavicular lymphadenopathy. Axillae: There is no axillary lymphadenopathy. Upper abdomen: A 1.9 cm cyst is seen in the upper pole of the right kidney. 1.5 cm cyst is seen in the upper pole of the left kidney. There is mild nodularity of the left adrenal gland. Skeletal structures: The skeletal structures are osteopenic. Degenerative changes seen throughout the thoracic spine. There is a permeative osteolytic lesion identified in the body of T5 with a mild pathologic fracture at this site. Tumor extends posteriorly from the T5 vertebral body and causes acquired compromise of the central canal. Osteolytic lesion is seen within the left transverse process of L1. There are osteolytic lesions with pathologic fracture seen involving the right posterior 11th rib and the left lateral 8th rib. Additional smaller osteolytic lesions are seen. IMPRESSION: 1. Findings are positive for pulmonary embolus. Small pulmonary emboli are seen within the distal left lower lobar pulmonary artery extending into segmental branches. A segmental pulmonary embolus is also seen within a branch of the right lower lobe pulmonary artery. 2. Cardiomegaly and advanced emphysema with evidence of pulmonary artery hypertension. 3. There are patchy airspace opacities at the left lung base. This could represent atelectasis versus a mild infectious/inflammatory pneumonitis. Clinical correlation will be required. 4. There are numerous (greater than 30) pulmonary and pleural-based lesions as above. The appearance is consistent with multifocal metastatic disease. 5. There is a 4.6 cm right hilar lymph node/perihilar mass. This could represent metastatic disease or a primary lesion. 6. Mildly enlarged mediastinal nodes are identified. 7. There are multiple osteolytic lesions identified consistent with metastatic disease. 8. A permeative osteolytic lesion is identified within the posterior aspect of T5. There is a mild pathologic compression fracture of T5, and tumor extends posteriorly from the T5 vertebral body with encroachment upon the central canal. 9. There are pathologic fractures of the right posterior 11th and the left lateral 8th ribs. 10. Additional findings as above. Assessment and Plan 66M with history of COPD admitted with dyspnea and R rib pain 2/2 trauma 1 month ago, and found to have new PE and pathological rib fractures, suspected 2/ 2 metastatic carcinoma of unknown primary source. CT Abdo and Pelvis w contrast today showed extensive mets, pleural biopsy today, CT Head w/o contrast showed no brain mets. Pt is on schedule for 2:30pm radiology staging today. Bilateral PE - Requires oxygen when supine for extended periods, otherwise in room air and asymptomatic. - Lovenox 1gm/kg BID. Restarted after pleural biopsy. Pulmonary Metastatic Malignancy of Unknown Primary - CT guided pleural biopsy today. Awaiting results. CT Abdo and Pelvis showed extensive mets. - f/u Pulm recs tomorrow. - Radiological staging. - Adequate PO Pain control is the goal so pt can follow up with Heme/Onc as outpatient. Pain management - Will discuss PO pain meds with Dr. Marquis. - Pain management recs: Dilautid 1mg Q4 PRN Percocet PRN Q4H PRN - Long-acting fentanyl patch 24mcg Pneumonia vs Pneumonitis - s/p 5 days of Levaquin COPD - Exacerbation unlikely at this time - Continue home meds: Symbicort and Spiriva - Duoneb PRN Coronary Artery Disease - Resuming Aspirin 81mg daily. - Continue Atenolol and Simvastatin DVT prophylaxis - Lovenox as above. Disposition - Med/Surg FULL RESUSCITATION Resident Physician Supervision Note: I interviewed and examined the patient. Discussed with Dr. Nguyễn and agree with findings and plan as documented in the note. Any exceptions or clarifications are listed here: None Documented By: Santiago Marquis feeling better overall but still too much pain to put arms above head, able to lay down a ltitle more. still definitely having a decent amount of pain, though. ROS otherwise negative except for as above vitals noted nad breathing unlabored no pallor or icterus metastatic lung CA - bx obtained, working on getting XRT started - pain control is an issue. increase fentanyl, percocet prn breakthrough, dilauded if needed for severe/refractory. anticipate home once pain better controlled w ongoing close f/u and treatment as outpt PE - lovenox Resident Involvement: Resident Care Provided Care Provided: Adult Hospital Medicine
[2016-10-15 08:04] VITALS: BP 103/64; PULSE 52; TEMP 36.6; O2SAT 94
[2016-10-15] MEDS: DICLOFENAC SOD 1% GEL 100 GM TUBE EXT SCH ×4 (08:14→19:39)
[2016-10-15] MEDS: BUDESONIDE/FORMOTEROL FUMARATE 160/4.5 60 PUFFS/INHALER INH SCH ×2 (08:14→19:38)
[2016-10-15] MEDS: IPRATROPIUM BROMIDE/ALBUTEROL respimat INH INH SCH ×4 (08:14→19:38)
[2016-10-15] MEDS: TIOTROPIUM BROMIDE 5 PUFF/90 MCG INH INH SCH (08:15)
[2016-10-15] MEDS: LIDODERM (LIDOCAINE) PATCH 5% TD SCH (08:15)
[2016-10-15] MEDS: CHECK FENTANYL PATCH PLACEMENT SCH ×3 (08:16→23:29)
[2016-10-15 08:42] LABS: INR 1.1 (0.9-1.1); PROTHROMBIN TIME (PATIENT) 12.2 SECONDS (9.0-12.0)
[2016-10-15] MEDS: SIMVASTATIN 5 MG TAB PO SCH (09:05)
[2016-10-15] MEDS: MAGNESIUM OXIDE 400 MG TAB PO SCH (09:05)
[2016-10-15] MEDS: LEVOFLOXACIN 750 MG TAB PO SCH (09:06)
[2016-10-15] MEDS: DOCUSATE SODIUM 100 MG CAP PO SCH ×2 (09:06→19:40)
[2016-10-15] MEDS: GABAPENTIN 300 MG CAP PO SCH ×3 (09:06→19:40)
[2016-10-15] MEDS: POLYETHYLENE (MIRALAX) 17 GM PACK PO SCH (09:06)
--- NOTE | 2016-10-15 10:16 | Pulmonology Progress Note ---
Pulmonary Progress Note Date of Service Oct 15, 2016. Attending Dr Denia James Just returned from CT and biopsy. Reports pain is controlled at this time. Some minimal cough. Denies any dyspnea. Objective 66-yo male admitted through [facility] ER 10/09/16 with 6-week h/o right sided rib/ chest pain and dyspnea describing s/p h/o fall and recent dx left sided pneumonia. Prior records were reviewed. PMHx includes: O2-dependent COPD, CAD s/p PTCA/BMS RCA, CHF. Former tobacco: 1-1.5ppd x 40-years, quit - 2014. In the ER CXR consistent with multiple bilateral pulmonary nodules. CTA notable for bilateral pulmonary emboli and findings concerning for metastatic process through the chest with bony involvement (as below). He was treated with anticoagulation/enoxaparin, levafloxacin, and pain control. Radiation/oncology and pain management were consulted. He was felt to be a poor candidate for EBUS /Bronchoscopy with preference for IR biposy completed of the 11th right rib . CTA 10/09/16 Impression: 1. findings consistent with pulmonary emboli in distal left lower lobar pulmonary artery extending into segmental branches. A segmental pulmonary embolus is also seen within a branch of the RLL pulmonary artery 2. Cardiomegaly and advanced emphysema with evidence of pulmonary artery hypertension. 3. Patchy airspace opacities in the left lung base. 4. Numerous > 30 pulmonary and pleural - based lesions. Appearance consistent with multifocal metastatic disease 5. 4.6cm right hilar lymph node/perihilar mass. 6. Mildly enlarged mediastinal nodes identified 7. Multiple osteolytic lesions consistent with metastatic disease 8. Permeative osteolytic lesion within the posterior aspect of T5 with encroachment on the central canal 9. Pathologic fractures of the right posterior 11th and left lateral 8th ribs 10/09/16: Bilateral LE doppler: No DVT bilaterally. Trace echogenic chronic thrombus in the common femoral vein bilaterally. Multiloculated right popliteal cyst. Today: - 91-94% - 3LPM O2, afebrile - Levaquin 750 day #8 - WBC: 10, Hgb/Hct/Plts: 11.8/37.1/196 - Co2: 33, Cr: 0.53 - CT guided IR biopsy of Rib #11 completed today - preliminary with malignant cells - CT abd/pelvis and head: pending Physical Exam: Constitutional: Well developed, well nourished male sitting in bed. No acute distress. Head: + facial symmetry Eyes: EOMi, PERRLA, no conjunctival injection Mouth: Moist mucous membranes No erythema, exudate, or post nasal gtt Neck: Trachea midline. No adenopathy or masses Respiratory: Non-labored respirations. Absent BS right base. No wheeze. Band- Aid posterior chest on the right. Cardiovascular: RRR, no MRG. +2 radial pulses. <1s capillary refill. Abdomen: soft, active bowel sounds Integumentary: no rashes, or ecchymosis MSK/Extremities: Moving and developed symmetrically. No peripheral edema. No calf tenderness. Venous stasis changes bilaterally Neurologic: A&O, data recall in-tact. Appropriate affect. Assessment & Plan 66-year-old gentleman admitted with bilateral pulmonary nodule/hilar adenopathy , COPD and bilateral pulmonary emboli: 1. Pulmonary Emboli in setting of suspected malignancy: - Continue enoxaparin as prescribed 2. O2- dependent COPD: - O2 titration: 89-94% - Continue Symbicort, Spiriva and Q-6-hour PRN albuterol-ipratropium either in the form of Combivent vs nebulizer 3. Acute Bronchitis: - Levofloxacin day #6 - discontinue after tomorrow's dose - CT abd/pelvis today - review captured lung clay in the setting of abnormal physical exam. 4. Pulmonary Nodules and hilar adenopathy with osteolytic lesions: - Per IR and pain management for biopsy - today, pathology pending Data Medications: Current Inpatient Medications Medications (Trade) Dose Ordered Sig/Abbi Route Start Time Stop Time Status Last Admin Dose Admin Acetaminophen (Tylenol Tab) 650 mg Q4H PRN PO 10/09/16 17:45 11/08/16 17:44 Al Hydrox/Mg Hydrox/Simethicone (Maalox Max Susp) 15 ml Q4H PRN PO 10/09/16 17:45 11/08/16 17:44 Magnesium Hydroxide (Milk Of Magnesia Susp) 30 ml Q12H PRN PO 10/09/16 17:45 11/08/16 17:44 10/13/16 20:02 30 ML Ondansetron HCl (Zofran Inj) 4 mg Q6H PRN IV 10/09/16 17:45 11/08/16 17:44 Polyethylene (Miralax Powder Packet) 17 gm DAILY PRN PO 10/09/16 17:45 11/08/16 17:44 Magnesium Oxide (Mag-Ox Tab) 400 mg DAILY PO 10/10/16 09:00 11/09/16 08:59 10/15/16 09:05 400 MG Atenolol (Tenormin Tab) 25 mg DAILY PO 10/10/16 09:00 11/09/16 08:59 10/15/16 09:06 25 MG Simvastatin (Zocor Tab) 5 mg DAILY PO 10/10/16 09:00 11/09/16 08:59 10/15/16 09:05 5 MG Levofloxacin (Levaquin Tab) 750 mg DAILY@11 PO 10/10/16 16:00 10/17/16 15:59 10/15/16 09:06 750 MG Budesonide/ Formoterol Fumarate (Symbicort 160/ 4.5 Inh) 2 puffs BID INH 10/10/16 21:00 11/09/16 20:59 10/15/16 08:14 2 PUFFS Tiotropium [place] (Spiriva Handihaler Inhaler) 1 puff QAM INH 10/11/16 09:00 11/10/16 08:59 10/15/16 08:15 1 PUFF Enoxaparin Sodium (Lovenox Inj) 90 mg Q12@0600,1800 SQ 10/10/16 16:00 11/09/16 15:59 Future Hold 10/12/16 18:03 90 MG Oxycodone/ Acetaminophen (Percocet 5-325mg Tab) 1 tab Q4H PRN PO 10/11/16 08:30 10/25/16 08:29 10/14/16 08:06 1 TAB Gabapentin (Neurontin Cap) 300 mg Taper TID PO 10/12/16 08:00 11/12/16 08:59 10/15/16 09:06 300 MG Lidocaine (Lidoderm Patch 5%) 1 patch QAM TD 10/11/16 09:00 11/10/16 08:59 10/15/16 08:15 1 PATCH Miscellaneous (Remove Lidoderm Patch) 1 ea DAILY@21 N/A 10/11/16 21:00 11/10/16 20:59 10/11/16 20:20 1 EA Albuterol/ Ipratropium (Combivent Respimat Inh) 1 puffs QIDR INH 10/12/16 16:00 11/11/16 15:59 10/15/16 08:14 1 PUFFS Fentanyl (Duragesic Patch) 12 mcg Q72H TD 10/12/16 13:00 10/26/16 12:59 10/12/16 13:48 12 MCG Miscellaneous (Fentanyl Patch Remove & Waste) 1 ea Q3D N/A 10/15/16 12:59 11/14/16 12:58 Miscellaneous Information (Check Fentanyl Patch Placement) 1 ea QS N/A 10/12/16 16:00 11/11/16 15:59 10/15/16 08:16 1 EA Docusate Sodium (coLACE CAP) 100 mg BID PO 10/12/16 20:00 11/11/16 19:59 10/15/16 09:06 100 MG Polyethylene (Miralax Powder Packet) 17 gm DAILY PO 10/13/16 08:00 11/12/16 07:59 10/15/16 09:06 17 GM Bisacodyl (Dulcolax Tab) 5 mg BID PRN PO 10/12/16 12:45 11/11/16 12:44 Diclofenac Sodium (Voltaren 1% Top Gel) 1 appln QID EXT 10/13/16 17:00 11/12/16 16:59 10/15/16 08:14 1 APPLN Hydromorphone HCl (Dilaudid Inj) 1 mg Q4H PRN IV 10/13/16 19:45 10/27/16 19:44 10/15/16 08:13 0.25 MG Hydromorphone HCl (Dilaudid Inj) 2 mg DAILY PRN IV 10/14/16 13:00 10/28/16 12:59 Vital Signs: Date Time Temp Pulse Resp B/P (MAP) Pulse Ox O2 Delivery O2 Flow Rate FiO2 10/15/16 08:50 Nasal Cannula 3.0 10/15/16 08:04 36.6 52 18 103/64 (77) 94 2.0 10/15/16 03:54 10/15/16 00:09 36.9 69 18 111/65 (80) 91 Nasal Cannula 3.0 10/15/16 00:00 Nasal Cannula 3.0 10/14/16 20:25 36.9 69 18 100/61 (74) 91 Nasal Cannula 3.0 10/14/16 20:15 Nasal Cannula 3.0 10/14/16 16:00 Nasal Cannula 3.0 10/14/16 15:37 37.1 74 18 101/64 (76) 92 Nasal Cannula 3.0 10/14/16 11:44 36.8 63 18 100/52 (68) 94 Nasal Cannula 3.0 Laboratory Results: Last 24 Hours Test 10/15/16 05:20 10/15/16 08:24 White Blood Count 10.00 K/uL Red Blood Count 3.83 M/uL Hemoglobin 11.8 g/dL Hematocrit 37.1 % Mean Corpuscular Volume 96.9 fL Mean Corpuscular Hemoglobin 30.8 pg Mean Corpuscular Hemoglobin Concent 31.8 g/dl RDW Standard Deviation 47.9 fL RDW Coefficient of Variation 13.5 % Platelet Count 196 K/uL Mean Platelet Volume 8.9 fL Sodium Level 138 mmol/L Potassium Level 4.2 mmol/L Chloride Level 99 mmol/L Carbon Dioxide Level 33 mmol/L Anion Gap 6.0 mmol/L Blood Urea Nitrogen 17 mg/dl Creatinine 0.53 mg/dl Est Creatinine Clear Calc Drug Dose 159.4 ml/min Estimated GFR () 127.8 Estimated GFR (Non- 110.3 BUN/Creatinine Ratio 32.0 Random Glucose 99 mg/dl Calcium Level 8.9 mg/dl Prothrombin Time 12.2 SECONDS Prothromb Time International Ratio 1.1
[2016-10-15] MEDS ORDERED: OPTIRAY 320 IV PRN (10:30)
--- NOTE | 2016-10-15 10:34 | DIAGNOSTIC IMAGING REPORT ---
CT GUIDED FINE NEEDLE ASPIRATION OF RIGHT POSTERIOR 11TH RIB L[address] DOSE: 367.16 mGycm CLINICAL HISTORY: Multiple thoracic lesions. Request for biopsy. COMPARISON STUDY: Chest CT October 09 2016. PROCEDURE: The procedure, risks and benefits were discussed with the patient including the risk of bleeding, infection and pneumothorax. The patient agreed to the procedure and informed written consent was obtained. The procedure was performed by Dr. Casanova following a timeout. The patient was placed on the CT scanner in the left lateral decubitus position. The pathologic right 11th rib fracture with associated lesion was targeted. Skin was prepped and draped in sterile fashion and local anesthesia was achieved with 1% lidocaine. Under intermittent CT guidance, two 22-gauge fine needle aspirations utilizing Lakesha needles were performed within the right 11th rib lesion. Malignant cells were noted on preliminary pathology. The patient tolerated the procedure well and no immediate complications were evident. IMPRESSION: CT-guided fine needle aspiration of the right 11th rib lesion. Electronically signed by: Thom Casanova M.D. 10/15/2016 10:33 AM Dictated Date/Time: 10/15/2016 10:30 AM
--- NOTE | 2016-10-15 10:49 | DIAGNOSTIC IMAGING REPORT ---
HEAD CT NONCONTRAST CT DOSE: 788.63 mGycm HISTORY: Metastases and focal neurologic findings (weakness) TECHNIQUE: Multiaxial CT images of the head were performed without the use of intravenous contrast. Automated exposure control was utilized for this study. Of note, there is residual contrast within the brain from the recent abdomen and pelvis CT. Comparison: None. Findings: The paranasal sinuses and mastoid air cells are clear. The calvarium and skull base are intact. The ventricles and sulci are within normal limits. There is no mass, hematoma, midline shift, or acute infarct. No abnormal enhancement identified. There are few small hypodense foci within the periventricular white matter. This suggests mild microvascular ischemic change. Impression: No acute intracranial abnormality. No evidence for intracranial metastatic disease. Electronically signed by: Josue Peterson M.D. 10/15/2016 10:48 AM Dictated Date/Time: 10/15/2016 10:45 AM
--- NOTE | 2016-10-15 10:54 | DIAGNOSTIC IMAGING REPORT ---
CT OF THE ABDOMEN AND PELVIS WITH CONTRAST CLINICAL HISTORY: Lung metastases. Unknown primary. COMPARISON STUDY: None. TECHNIQUE: Following IV administration of 118 mL of Optiray-320, axial images of the abdomen and pelvis were obtained from the lung bases to the proximal femurs. Images were reviewed in the axial, sagittal, and coronal planes. IV contrast was administered without complication. CT DOSE: 1051.42 mGycm FINDINGS: Visualized portions of the lower chest demonstrate interval development of near complete right lower lobe collapse with a trace right pleural effusion. Left lower lobe atelectasis is present. There are extensive secretions within visualized portions of the right tracheobronchial tree. Innumerable nodules are noted within visualized portions of the lungs. Note is made of a 2.3 cm segment 4/8 hepatic lesion and a 1.5 cm segment 4 lesion. These are consistent with metastases. The spleen, adrenal glands and pancreas are unremarkable. There is no biliary or pancreatic ductal dilatation. Numerous water attenuation renal lesions reflect cysts. There are numerous subcentimeter renal lesions which are too small to characterize. There is no abdominal or pelvic lymphadenopathy. There is a moderate amount of stool within the colon. Images of the pelvis are degraded by streak artifact from right hip arthroplasty. There is a colonic diverticulosis without evidence for acute diverticulitis. Note is made of a saccular 3.5 x 2.4 cm infrarenal abdominal aortic aneurysm with plaque. There is extensive atherosclerotic plaque within the abdominal aorta. There are numerous lytic lesions within visualized skeletal structures, including a 2.8 cm lesion within the medial left iliac bone. There are numerous lumbar spine lytic lesions. There is also a 2.7 cm lesion within the intertrochanteric portion of the right femur adjacent to a right hip arthroplasty. IMPRESSION: 1. Findings consistent with extensive metastatic disease with several liver metastases, innumerable pulmonary nodules and numerous lytic skeletal lesions, including lumbar spine metastases and a 2.7 cm right femoral intertrochanteric lesion adjacent to the right hip arthroplasty. 2. 3.5 x 2.4 cm infrarenal saccular abdominal aortic aneurysm. 3. Interval development of near complete right lower lobe collapse with extensive secretions within visualized portions of the tracheobronchial tree. Electronically signed by: Thom Casanova M.D. 10/15/2016 10:53 AM Dictated Date/Time: 10/15/2016 10:38 AM
[2016-10-15] MEDS ORDERED: ENOXAPARIN 1 MG/KG SQ SCH (11:15)
[2016-10-15 11:44] VITALS: BP 95/56; PULSE 90; TEMP 36.8; O2SAT 92
[2016-10-15] MEDS: FENTANYL 12 MCG/HR TDSY TD SCH (12:19)
[2016-10-15] MEDS ORDERED: FENTANYL PATCH REMOVE & WASTE SCH (12:59)
[2016-10-15] MEDS ORDERED: FENTANYL 12 MCG/HR TDSY TD STA (13:14)
[2016-10-15] MEDS ORDERED: HYDROmorphone INJ 2 MG/ML SYR/VIAL IV PRN (13:15)
[2016-10-15] MEDS: ENOXAPARIN 100 MG/1ML SYR SQ SCH ×2 (13:49→23:04)
[2016-10-15 16:03] VITALS: BP 91/55; PULSE 63; TEMP 36.5; O2SAT 93
[2016-10-15] MEDS: OXYCODONE/ACETAMINOPHEN 5-325 TAB PO PRN (19:37)
[2016-10-15 20:20] VITALS: BP 97/57; PULSE 62; TEMP 36.5; O2SAT 90
[2016-10-15 23:26] VITALS: BP 93/59; PULSE 56; TEMP 37.1; O2SAT 92
[2016-10-16] VITALS (7 sets, daily range): BP systolic 95–106; BP diastolic 54–61; PULSE 50–92; TEMP 36.5–36.8; O2SAT 90–94
[2016-10-16] MEDS: HYDROmorphone INJ 1 MG/ML SYR IV PRN ×2 (03:10→11:00)
[2016-10-16 06:18] LABS: HEMATOCRIT 38.5 % (42-52); MEAN CORPUSCULAR HGB CONC 30.9 g/dl (32-36); MEAN PLATELET VOLUME 8.8 fL (7.4-10.4); PLATELET COUNT 239 K/uL (130-400); RED BLOOD COUNT 3.97 M/uL (4.7-6.1)
[2016-10-16 07:02] LABS: BUN/CREATININE RATIO 27.5 (10-20); CREATININE 0.57 mg/dl (0.60-1.40); POTASSIUM 4.1 mmol/L (3.5-5.1)
[2016-10-16] MEDS: OXYCODONE/ACETAMINOPHEN 5-325 TAB PO PRN ×2 (07:39→14:12)
[2016-10-16] MEDS: DICLOFENAC SOD 1% GEL 100 GM TUBE EXT SCH ×2 (07:40→14:08)
[2016-10-16] MEDS: DOCUSATE SODIUM 100 MG CAP PO SCH (07:41)
[2016-10-16] MEDS: CHECK FENTANYL PATCH PLACEMENT SCH ×2 (07:41→16:41)
[2016-10-16] MEDS: GABAPENTIN 300 MG CAP PO SCH ×2 (07:42→14:09)
[2016-10-16] MEDS: SIMVASTATIN 5 MG TAB PO SCH (07:45)
[2016-10-16] MEDS: IPRATROPIUM BROMIDE/ALBUTEROL respimat INH INH SCH ×2 (07:46→14:08)
[2016-10-16] MEDS: BUDESONIDE/FORMOTEROL FUMARATE 160/4.5 60 PUFFS/INHALER INH SCH (07:46)
[2016-10-16] MEDS: MAGNESIUM OXIDE 400 MG TAB PO SCH (07:47)
[2016-10-16] MEDS: LIDODERM (LIDOCAINE) PATCH 5% TD SCH (07:47)
[2016-10-16] MEDS: POLYETHYLENE (MIRALAX) 17 GM PACK PO SCH (07:48)
[2016-10-16] MEDS ORDERED: ASPIRIN 81 MG ECTAB PO SCH (08:00)
[2016-10-16] MEDS: TIOTROPIUM BROMIDE 5 PUFF/90 MCG INH INH SCH (09:10)
[2016-10-16] MEDS ORDERED: OXYC-59 PO (10:37)
[2016-10-16] MEDS ORDERED: DRGTP12 TD (10:37)
--- NOTE | 2016-10-16 10:42 | Discharge Instructions ---
Discharge Instructions Date of Service Oct 16, 2016. Admission Reason for Admission: Pulmonary Embolism, Bilateral Discharge Discharge Diagnosis / Problem: Metastatic Cancer Discharge Goals Goal(s): Decrease discomfort, Improve function, Increase independence, Improve disease control, Improve nutritional status, Learn about illness Activity Recommendations Activity Limitations: resume your previous activity . Instructions / Follow-Up Instructions / Follow-Up Someone from our hematology oncology and our radiation oncology department will contact you for follow appointments. This will likely happen next week as we are awaiting the results of your pathology (biopsy) report. If you do not hear from our cancer center within the next 2-3 days please give us a call. [phone] You have been prescribed Percocet Tablets for pain. Take one tablet every 4 hours as needed for pain. You have also been given a prescription for Lovenox. You are to take this medication every 12 hours. It is a blood thinners and it is to treat the blood clots that have developed in your lung. This medication is an injection medication. Please follow up with your Primary Care Doctor within one week for your pain control. Our renal social worker will try to arrange this appointment for you. If you do not hear from Dr. Ramesh's office within the next 1-2 days please give her office a call. You have also been prescribed transdermal Fentanyl patches. You are to change these patches every day days. Current Hospital Diet Patient's current hospital diet: AHA Diet (Heart Healthy) Discharge Diet Recommended Diet: Regular Diet Pending Studies Studies pending at discharge: no Medical Emergencies . Who to Call and When: Medical Emergencies: If at any time you feel your situation is an emergency, please call 911 immediately. . Non-Emergent Contact Non-Emergency issues call your: Primary Care Provider, Oncologist . . "Provider Documentation" section prepared by Colby Bernabe. . VTE Core Measure Inpt VTE Proph given/why not?: Other Anticoagulation (heparin drip) Resident Involvement: Resident Care Provided Care Provided: Adult Hospital Medicine
[2016-10-16] MEDS: ENOXAPARIN 100 MG/1ML SYR SQ SCH (10:56)
[2016-10-16] MEDS: LEVOFLOXACIN 750 MG TAB PO SCH (10:56)
[2016-10-16] MEDS ORDERED: LVNIS100 SQ (11:36)
[2016-10-16] MEDS ORDERED: ENOXAPARIN 100 MG/1ML SYR SQ SCH (12:15)
--- NOTE | 2016-10-16 15:13 | Discharge Summary ---
Discharge Summary Date of Service Oct 16, 2016. (Colby Bernabe M.D.) Discharge Summary Admission Date: Oct 09, 2016 at 16:17 Discharge Date: Oct 16, 2016 Discharge Disposition: Home Principal Diagnosis: Metastatic Cancer Immunizations: Have You Had Influenza Vaccine: No History of Tetanus Vaccine?: No History of Pneumococcal: No History of Hepatitis B Vaccine: No Procedures: CT OF THE ABDOMEN AND PELVIS WITH CONTRAST CLINICAL HISTORY: Lung metastases. Unknown primary. COMPARISON STUDY: None. TECHNIQUE: Following IV administration of 118 mL of Optiray-320, axial images of the abdomen and pelvis were obtained from the lung bases to the proximal femurs. Images were reviewed in the axial, sagittal, and coronal planes. IV contrast was administered without complication. CT DOSE: 1051.42 mGycm FINDINGS: Visualized portions of the lower chest demonstrate interval development of near complete right lower lobe collapse with a trace right pleural effusion. Left lower lobe atelectasis is present. There are extensive secretions within visualized portions of the right tracheobronchial tree. Innumerable nodules are noted within visualized portions of the lungs. Note is made of a 2.3 cm segment 4/8 hepatic lesion and a 1.5 cm segment 4 lesion. These are consistent with metastases. The spleen, adrenal glands and pancreas are unremarkable. There is no biliary or pancreatic ductal dilatation. Numerous water attenuation renal lesions reflect cysts. There are numerous subcentimeter renal lesions which are too small to characterize. There is no abdominal or pelvic lymphadenopathy. There is a moderate amount of stool within the colon. Images of the pelvis are degraded by streak artifact from right hip arthroplasty. There is a colonic diverticulosis without evidence for acute diverticulitis. Note is made of a saccular 3.5 x 2.4 cm infrarenal abdominal aortic aneurysm with plaque. There is extensive atherosclerotic plaque within the abdominal aorta. There are numerous lytic lesions within visualized skeletal structures, including a 2.8 cm lesion within the medial left iliac bone. There are numerous lumbar spine lytic lesions. There is also a 2.7 cm lesion within the intertrochanteric portion of the right femur adjacent to a right hip arthroplasty. IMPRESSION: 1. Findings consistent with extensive metastatic disease with several liver metastases, innumerable pulmonary nodules and numerous lytic skeletal lesions, including lumbar spine metastases and a 2.7 cm right femoral intertrochanteric lesion adjacent to the right hip arthroplasty. 2. 3.5 x 2.4 cm infrarenal saccular abdominal aortic aneurysm. 3. Interval development of near complete right lower lobe collapse with extensive secretions within visualized portions of the tracheobronchial tree. HEAD CT NONCONTRAST CT DOSE: 788.63 mGycm HISTORY: Metastases and focal neurologic findings (weakness) TECHNIQUE: Multiaxial CT images of the head were performed without the use of intravenous contrast. Automated exposure control was utilized for this study. Of note, there is residual contrast within the brain from the recent abdomen and pelvis CT. Comparison: None. Findings: The paranasal sinuses and mastoid air cells are clear. The calvarium and skull base are intact. The ventricles and sulci are within normal limits. There is no mass, hematoma, midline shift, or acute infarct. No abnormal enhancement identified. There are few small hypodense foci within the periventricular white matter. This suggests mild microvascular ischemic change. Impression: No acute intracranial abnormality. No evidence for intracranial metastatic disease. ULTRASOUND BILATERAL LOWER EXTREMITY VENOUS CLINICAL HISTORY: Hypoxia. COMPARISON STUDY: No priors. TECHNIQUE: Real-time, grayscale, and color Doppler sonography of the deep veins of the right and left lower extremity was performed from the inguinal crease to the calf. Compression and augmentation were utilized. FINDINGS: There is no sonographic evidence of acute deep venous thrombosis identified in the right or left lower extremity. Trace echogenic chronic thrombus is identified within the common femoral vein bilaterally. The common femoral, superficial femoral, and popliteal veins are patent and normally compressible bilaterally. The greater saphenous vein and the profunda femoris vein at the junction with the common femoral vein are clear in both legs. The visualized calf veins are patent bilaterally. There is a multiloculated popliteal cyst on the right. The loculations measure 3.6 x 1.6 x 3.3 cm and 3.1 x 1.5 x 2.4 cm. IMPRESSION: 1. There is no sonographic evidence of acute deep venous thrombosis identified in the right or left lower extremity. 2. Trace echogenic chronic thrombus is seen within the common femoral vein bilaterally. 3. Multiloculated right popliteal cyst. CT ANGIOGRAM OF THE CHEST CLINICAL HISTORY: Dyspnea. Fall with right-sided chest pain. COMPARISON STUDY: Chest CT dated 05/02/2010. TECHNIQUE: Following the IV administration of 93 cc of Optiray 320, CT angiogram of the chest was performed from the upper abdomen to the thoracic inlet utilizing the pulmonary embolus protocol. Images are reviewed in the axial, sagittal, and coronal planes. 3-D MIPS images are created and assessed. IV contrast was administered without complication. CT DOSE: 568.43 mGy.cm FINDINGS: Thyroid: Imaged portions of the thyroid gland are normal in size and attenuation. Thoracic aorta: There is atherosclerotic calcification of the thoracic aorta, which is normal in caliber and demonstrates standard 3-vessel arch anatomy. No dissection is seen. Pulmonary vasculature: The pulmonary trunk is markedly dilated, measuring 4.6 cm in diameter. This suggests pulmonary artery hypertension. There are filling defects within the left lower lobar pulmonary artery which extend in the segmental and subsegmental branches. This is consistent with pulmonary embolus. Segmental pulmonary emboli are also seen in the right lower lobe pulmonary artery on image #103. Heart: The heart is enlarged and without pericardial effusion. The coronary arteries are densely calcified. Lungs and pleural spaces: Emphysema is noted. Patchy airspace opacities are present in the left lower lobe. No pleural effusion is identified. Minimal secretions are seen in the trachea. There are numerous (greater than 30) irregular pulmonary and pleural-based nodules consistent with multifocal pulmonary metastatic disease. The largest lesion is present in the anterior right upper lobe adjacent to the pleura on image #209. This measures 3.8 x 1.9 cm adnexa appears to extend through the pleura. A pleural based lesion in the right upper lobe on image #217 measures 2.7 cm. Mediastinum: There are mildly enlarged mediastinal lymph nodes. The largest is seen in the AP window on image #193 and measures up to 1.3 cm in short axis. Annette: A right hilar lymph node/mass is seen on image #172 and measures 4.6 x 3.1 cm. No left hilar adenopathy is seen. Lower neck: There is no supraclavicular lymphadenopathy. Axillae: There is no axillary lymphadenopathy. Upper abdomen: A 1.9 cm cyst is seen in the upper pole of the right kidney. 1.5 cm cyst is seen in the upper pole of the left kidney. There is mild nodularity of the left adrenal gland. Skeletal structures: The skeletal structures are osteopenic. Degenerative changes seen throughout the thoracic spine. There is a permeative osteolytic lesion identified in the body of T5 with a mild pathologic fracture at this site. Tumor extends posteriorly from the T5 vertebral body and causes acquired compromise of the central canal. Osteolytic lesion is seen within the left transverse process of L1. There are osteolytic lesions with pathologic fracture seen involving the right posterior 11th rib and the left lateral 8th rib. Additional smaller osteolytic lesions are seen. IMPRESSION: 1. Findings are positive for pulmonary embolus. Small pulmonary emboli are seen within the distal left lower lobar pulmonary artery extending into segmental branches. A segmental pulmonary embolus is also seen within a branch of the right lower lobe pulmonary artery. 2. Cardiomegaly and advanced emphysema with evidence of pulmonary artery hypertension. 3. There are patchy airspace opacities at the left lung base. This could represent atelectasis versus a mild infectious/inflammatory pneumonitis. Clinical correlation will be required. 4. There are numerous (greater than 30) pulmonary and pleural-based lesions as above. The appearance is consistent with multifocal metastatic disease. 5. There is a 4.6 cm right hilar lymph node/perihilar mass. This could represent metastatic disease or a primary lesion. 6. Mildly enlarged mediastinal nodes are identified. 7. There are multiple osteolytic lesions identified consistent with metastatic disease. 8. A permeative osteolytic lesion is identified within the posterior aspect of T5. There is a mild pathologic compression fracture of T5, and tumor extends posteriorly from the T5 vertebral body with encroachment upon the central canal. 9. There are pathologic fractures of the right posterior 11th and the left lateral 8th ribs. 10. Additional findings as above. (Colby Bernabe M.D.) Medication Reconciliation New Medications: Oxycodone/Acetaminophen 10MG/325MG (Percocet 10MG/325MG) 1 Tab Tab 1 TAB PO QID for 30 Days, #120 TAB Enoxaparin (Enoxaparin Sodium) 100 Mg/Ml Inj 90 MG SQ Q12 for 30 Days, #60 PEN Fentanyl (Fentanyl) 12 Mcg Tdsy 25 MCG TD Q72H for 30 Days, #10 Change patch every 3 days. Next change is 10/17/16. Continued Medications: Albuterol Sulfate (Proventil Hfa) 108 Mcg/Act Aer 2 PUFFS INH QID PRN for Wheezing Aspirin (Aspirin Ec) 81 Mg Tab 81 MG PO DAILY Atenolol (Tenormin) 25 Mg Tab Unknown Dose PO DAILY, TAB Budesonide/Formoterol Fumarate (Symbicort 160/4.5 Inhaler ) Aero 2 PUFFS INH BID, INHALER Furosemide (Lasix) 20 Mg Tab Unknown Dose PO DAILY, TAB Magnesium Oxide (Mag-Ox) 400 Mg Tab 400 MG PO DAILY, TAB Simvastatin (Zocor) 5 Mg Tab Unknown Dose PO DAILY, TAB Discharge Exam Subjective Pt evaluation today including: conversation w/ patient, physical exam, chart review, lab review Pt was seen and examined at bedside. Pt was doing well. Discharge instructions were reviewed with patient. Patient had 4/10 pain in upper chest after moving. Physical Exam General Appearance: WD/WN, no apparent distress Respiratory/Chest: chest non-tender, lungs clear, normal breath sounds, no respiratory distress, no accessory muscle use Cardiovascular: no JVD, no murmur, + irregularly irregular Abdomen: normal bowel sounds, non tender, soft, no organomegaly Extremities: normal range of motion, non-tender, normal inspection, no pedal edema, no calf tenderness, + pertinent finding (Tenderness over right chest, pt cannot put hands over head w extended period of time while supine. ) 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: alert, normal mood/affect, oriented x 3 (Colby Bernabe M.D.) Hospital Course 66M with history of COPD admitted with dyspnea and R rib pain 2/2 trauma 1 month ago, and found to have new PE and pathological rib fractures, suspected 2/ 2 metastatic carcinoma of unknown primary source. CT Abdo and Pelvis w contrast showed extensive mets, pleural biopsy while in hospital, CT Head w/o contrast showed no brain mets. Bilateral PE - Lovenox 1gm/kg BID. Restarted after pleural biopsy. Discharged with an Rx for 30 days. Pulmonary Metastatic Malignancy of Unknown Primary - Pending pathology result. [facility] Center will follow up with patient as outpatient. Pain management Discharged on Percocet 10mg/325mg, 1 tab Q4H PRN , 120 tabs. Fentanyl 25mcg patch Q3days. Other home meds were resume on discharged. Total Time Spent: Greater than 30 minutes This includes examination of the patient, discharge planning, medication reconciliation, and communication with other providers. (Colby Bernabe M.D.) Resident Physician Supervision Note: I interviewed and examined the patient. Discussed with Dr. Benrabe and agree with findings and plan as documented in the note. Any exceptions or clarifications are listed here: None Documented By: Santiago Marquis feeling better pain better controlled answered all questions to best of our ability and to pt's satisfaction stable for home ROS otherwise negative except for as above vitals noted nad breathing unlabored no appearance of pain no pallor or icterus new dx metastatic lung CA - pain controlled, bx obtained, for close outpt f/u and treatment w heme/onc and rads/onc. stable for home (Santiago Marquis, D.O.) Discharge Instructions Please refer to the electronic Patient Visit Report (Discharge Instructions) for additional information. (Colby Bernabe M.D.) Additional Copies To Ann Olivas M.D.; Roberto Ball D.O.; Veeral. Terrazas MD Resident Involvement: Resident Care Provided Care Provided: [facility] (Colby Bernabe M.D.)
[2016-10-18] MEDS ORDERED: FENTANYL PATCH REMOVE & WASTE ONE (13:30)
[2016-10-28] MEDS ORDERED: IPRA1AER2 INH (19:19)
[2016-11-19] MEDS ORDERED: IPRA1AER2 INH (06:55)
[2016-12-18] MEDS ORDERED: ONDA8TAB6 PO (15:38)
[2016-12-18] MEDS ORDERED: ACET-1311 PO (15:39)
[2016-12-18] MEDS ORDERED: ENOX30IN4 SQ (16:12)
[2016-12-18] MEDS ORDERED: FENT100D10 TOP (16:12)
[2017-01-03] MEDS ORDERED: ENOX80IN SQ (07:35)
[2017-01-15] MEDS ORDERED: KFL500 PO (10:19)
[2017-01-15] MEDS ORDERED: FLM4 PO (10:19)
[2017-04-04] MEDS ORDERED: LVQ750 PO (09:51)
[2017-04-04] MEDS ORDERED: PRED10TA PO (09:51)
== END 2016-10-16 17:25 | disposition home or self-care (01) | DRG 180 ==
LOC: C.EDB 10:41 → C.2T 16:17 → ENRESERV 17:05 → C.4E 10-11 21:25
PROVIDERS: ADMIT Hospitalist; ATTEND Family Medicine
DX: C78.00 Secondary malignant neoplasm of unspecified lung (principal); I26.99 Other pulmonary embolism without acute cor pulmonale; J18.9 Pneumonia, unspecified organism; C79.51 Secondary malignant neoplasm of bone; M84.58XA Pathological fracture in neoplastic disease, other specified site, initial encounter for fracture; J96.11 Chronic respiratory failure with hypoxia; J44.0 Chronic obstructive pulmonary disease with (acute) lower respiratory infection; J44.9 Chronic obstructive pulmonary disease, unspecified; E78.5 Hyperlipidemia, unspecified; I50.9 Heart failure, unspecified; Z79.899 Other long term (current) drug therapy; Z99.81 Dependence on supplemental oxygen; J20.9 Acute bronchitis, unspecified; I25.2 Old myocardial infarction; Z95.5 Presence of coronary angioplasty implant and graft; Z87.891 Personal history of nicotine dependence; I25.10 Atherosclerotic heart disease of native coronary artery without angina pectoris; I87.8 Other specified disorders of veins; I95.9 Hypotension, unspecified; I27.2 Other secondary pulmonary hypertension; Z96.643 Presence of artificial hip joint, bilateral

== ENCOUNTER 2016-10-31 13:36 | Emergency (ER) | payer OTHER ==
[~2016-10-31] VITALS: Ht 177.8 cm; Wt 89.0 kg
[~2016-10-31 13:36] MED LIST changes: +ALBUAER INH; -ALBUAER2 INH; +ASPI81TA28 PO; +ATEN-173 PO; +DRGTP12 TD; +FURO-85 PO; +IPRA1AER2 INH; +LVNIS100 SQ; +MAGN400T6 PO; +OXYC-59 PO; +SYMIN160 INH
[2016-10-31 13:38] VITALS: TEMP 36.7; Ht 177.8 cm; Wt 89.0 kg
--- NOTE | 2016-10-31 14:17 | EMERGENCY ROOM VISIT NOTE ---
History First contact with patient: 13:53 Chief Complaint: HEMATURIA Stated Complaint: BLOOD IN URINE-COUMADIN PATIENT History of Present Illness The patient is a 66 year old male who presents to the Emergency Room with complaints of hematuria. He was recently admitted from to 16 October for new onset bilateral pulmonary embolisms with a new diagnosis of metastatic adenocarcinoma with unknown primary. He was discharged on Lovenox 90mg Q12H. He first noticed a brown tinge intermittently of his urine over the last 2 days but at the time thought nothing of it. This afternoon he first noticed red blood in his urine. He is currently undergoing radiation to his spine and lung metastatic disease by Dr Terrazas which started this Friday. His last dose of Lovenox was this morning around 5am. He denies any light headedness, chest pain or new shortness of breath. He constantly feels somewhat short of breath, but actually feels this is a little better since radiation treatments. He is on 3L O2 at baseline due to COPD. Review of Systems See HPI for pertinent positives & negatives. A total of 10 systems reviewed and were otherwise negative. Past Medical/Surgical History Medical Problems: (1) Adenocarcinoma of unknown primary (2) COPD (chronic obstructive pulmonary disease) (3) Coronary artery disease (4) Pneumonia (5) Pulmonary embolism, bilateral Surgical Problems: (1) History of total replacement of right hip Family History Cancer Social History Smoking Status: Former Smoker Smokeless Tobacco Use: No Drug Use: none Marital Status: Housing Status: lives with significant other Occupation Status: employed Current/Historical Medications Scheduled Aspirin (Aspirin Ec), 81 MG PO DAILY Atenolol (Tenormin), Unknown Dose PO DAILY Budesonide/Formoterol Fumarate (Symbicort 160/4.5 Inhaler ), 2 PUFFS INH BID Enoxaparin (Enoxaparin Sodium), 90 MG SQ Q12 Fentanyl (Fentanyl), 75 MCG TD Q72H Furosemide (Lasix), Unknown Dose PO DAILY Ipratropium-Albuterol (Combivent Respimat), 1 PUFFS INH QID Magnesium Oxide (Mag-Ox), 400 MG PO DAILY Scheduled PRN Albuterol Sulfate (Proventil Hfa), 2 PUFFS INH QID PRN for Wheezing Oxycodone Ir (Roxicodone Ir), 10 MG PO Q6H PRN for Pain Allergies Coded Allergies: No Known Allergies (Verified , 6/29/17) Physical Exam Vital Signs Date Time Temp Pulse Resp B/P (MAP) Pulse Ox O2 Delivery O2 Flow Rate FiO2 10/31/16 19:10 78 20 128/57 95 Nasal Cannula 3.0 10/31/16 17:56 85 20 114/72 94 Nasal Cannula 3.0 10/31/16 17:54 78 10/31/16 16:05 74 20 116/59 99 Nasal Cannula 6.0 10/31/16 14:02 93 10/31/16 13:38 36.7 86 18 94/55 78 Nasal Cannula 3.0 Physical Exam VITAL SIGNS: were reviewed as above GENERAL: no acute distress SKIN: Warm dry and pink, subcutaneous hematoma due to Lovenox injections on lower abdomen HEAD: Normocephalic and atraumatic EYES: Extraocular muscles intact, pupils equal and reactive to light OROPHARYNX: non erythematous, clear and moist NECK: Supple, no adenopathy or meningismus LUNGS: No respiratory distress, bilateral coarse crackles throughout (worse on left side), no accessory muscle use HEART: Regular rate and rhythm, heart sounds 1+2, soft systolic murmur ABDOMEN: Soft and nontender (specifically no suprapubic tenderness or bladder distension), bowel sounds normal, subcutaneous hematoma noted over abdominal wall BACK: no CVA tenderness EXTREMITIES: Warm and well perfused, no calf tenderness/swelling, b/l 1+ pedal edema at ankles. NEUROLOGICALLY: Awake alert and oriented without focal deficit. Cranial nerves 2 -12 intact. Cerebellar testing is within normal limits. There is no nystagmus. There is no facial droop. Speech is clear. Vision is grossly normal. Upper and lower extremity motor and sensory examination normal. MUSCULOSKELETAL: Good muscle tone. No evidence of trauma Medical Decision & Procedures ER Provider Diagnostic Interpretation: SINGLE VIEW CHEST CLINICAL HISTORY: Dyspnea. FINDINGS: An AP, portable, upright chest radiograph is compared to study dated 08/17/2009. Correlation is made with chest CT dated 10/09/2016. The examination is degraded by portable technique and patient rotation. The heart is enlarged and there is atherosclerotic calcification of the thoracic aorta. Pulmonary vasculature is noncongested. Emphysema and chronic interstitial thickening are similar to previous. Numerous foci of pulmonary and pleural-based metastatic disease are again noted. There is right hilar adenopathy. No superimposed airspace consolidation or pleural effusion is identified. No pneumothorax is seen. The skeletal structures are osteopenic. Degenerative change is noted throughout the thoracic spine. Calcific tendinopathy is noted in the right shoulder. IMPRESSION: 1. Cardiomegaly and emphysema. 2. Multifocal pulmonary and pleural-based metastatic disease is again noted. This was better characterized on the 10/09/[address] 3. There is no evidence of superimposed airspace consolidation or pleural effusion. Electronically signed by: Marquez Cha M.D. 10/31/2016 2:54 PM Dictated Date/Time: 10/31/2016 2:52 PM RENAL ULTRASOUND HISTORY: hematuria ?cause ?obstruction COMPARISON: Abdomen and pelvis CT 10/15/2016. FINDINGS: Right kidney: 12.5 cm. No hydronephrosis. A few small cysts with the largest in the upper pole measuring 2.5 cm. Left kidney: 12.2 cm. No hydronephrosis. A few cysts with the largest measuring 1.5 cm. Medial to the left kidney there is a 5.4 cm indeterminate cystic focus. This was not present on the 10/15/[address] Bladder: No bladder wall thickening. The bilateral ureteral jets were identified. IMPRESSION: 1. Bilateral renal cysts. 2. No hydronephrosis. 3. Medial to the left kidney there is a 5.4 cm indeterminate cystic focus. This was not present on the prior examination. This could represent an adjacent bowel loop or small fluid collection. Consider CT for further evaluation. Electronically signed by: Josue Peterson M.D. 10/31/2016 5:05 PM Dictated Date/Time: 10/31/2016 5:02 PM Laboratory Results 10/31/16 14:12 10/31/16 14:12 Test 10/31/16 14:12 10/31/16 17:33 Red Blood Count 3.84 M/uL (4.7-6.1) Mean Corpuscular Volume 92.7 fL (80-100) Mean Corpuscular Hemoglobin 29.7 pg (25-34) Mean Corpuscular Hemoglobin Concent 32.0 g/dl (32-36) RDW Standard Deviation 45.5 fL (36.4-46.3) RDW Coefficient of Variation 13.4 % (11.5-14.5) Mean Platelet Volume 8.4 fL (7.4-10.4) Prothrombin Time 12.1 SECONDS (9.0-12.0) Prothromb Time International Ratio 1.1 (0.9-1.1) Activated Partial Thromboplast Time 38.1 SECONDS (21.0-31.0) Partial Thromboplastin Ratio 1.5 Anion Gap 9.0 mmol/L (3-11) Est Creatinine Clear Calc Drug Dose 111.8 ml/min Estimated GFR () 112.0 Estimated GFR (Non- 96.7 BUN/Creatinine Ratio 28.4 (10-20) Calcium Level 9.9 mg/dl (8.5-10.1) Total Bilirubin 0.2 mg/dl (0.2-1) Aspartate Amino Transf (AST/SGOT) 15 U/L (15-37) Alanine Aminotransferase (ALT/SGPT) 17 U/L (12-78) Alkaline Phosphatase 153 U/L (45-117) Total Protein 7.9 gm/dl (6.4-8.2) Albumin 2.6 gm/dl (3.4-5.0) Globulin 5.3 gm/dl (2.5-4.0) Albumin/Globulin Ratio 0.5 (0.9-2) Urine Color RED Urine Appearance TURBID (CLEAR) Urine pH 6.0 (4.5-7.5) Urine Specific Herod 1.025 (1.000-1.030) Urine Protein 2+ (NEG) Urine Glucose (UA) NEG (NEG) Urine Ketones NEG (NEG) Urine Occult Blood 3+ (NEG) Urine Nitrite NEG (NEG) Urine Bilirubin NEG (NEG) Urine Urobilinogen NEG (NEG) Urine Leukocyte Esterase NEG (NEG) Urine RBC >30 /hpf (0-4) Urine WBC 1-5 /hpf (0-5) Urine Epithelial Cells 0-5 /lpf (0-5) Urine Bacteria NEG (NEG) Medications Administered Medications (Trade) Dose Ordered Sig/Abbi Route Start Time Stop Time Status Last Admin Dose Admin Oxycodone HCl (Roxicodone Immediate Rel Tab) 10 mg NOW STAT PO 10/31/16 17:41 10/31/16 17:42 DC 10/31/16 17:55 10 MG ED Course 13:56 Complete history and physical performed 14:50 The patient was discussed with Dr Pond who separately performed history and physical, recommended US retroperitoneal to rule out obstruction 17:30 Patient was reassessed, given US findings discussed getting a CT A/P to assess cystic structure further 18:23 Patient was reassessed unable to undergo CT scan due to shortness of breath. Discussed benefits and risks of continuing aspirin and Lovenox and reasons for returning to ER. Demonstrated understanding. Medical Decision Prior records/ancillary studies reviewed. Triage Nursing notes reviewed. Additional history obtained from the patient and his . The patient's history was concerning for hematuria. Differential diagnosis: Etiologies such as bladder cancer, hemorrhagic cystitis, radiation induced cystitis, infection (UTI, pyelonephritis), bleeding diathesis, urethral trauma, urinary retention as well as others were entertained. Physical exam: As above. The patients vital signs showed hypoxia and hypotension in triage. ER treatment provided: Oxycodone 10mg PO On reassessment the patient felt better. Diagnostics interpreted by me: The labs revealed mild anemia (stable Hgb since discharge) Imaging studies: CXR no acute pathology US renal as above - no sign of obstruction. Multiple cysts, including one adjacent to his kidney (possible bowel loop or fluid collection). CT was attempted but the patient was unable to tolerate the investigation due to shortness of breath with pain. 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 The cause for his hematuria is unspecified at this time but he has plenty of reasons to have this given treatment dose Lovenox and aspirin use with recent radiation and metastatic disease. By the evaluation outlined above emergent etiologies such as infections and urinary obstruction as well as others were deemed relatively unlikely. His hypoxia and hypotension in triage resolved without treatment to his baseline. He was asymptomatic with the hypotension. His hypoxia was likely related to his exertion on coming to the ER as he does become short of breath on exertion, however this is not an acute issue and he actually feels this is improving. The patient and his were informed about the findings as listed above. All questions were answered and they were pleased with the treatment. Return instructions were outlined and the patient was discharged in stable condition. The importance of returning for increased bleeding, symptoms of urinary retention or symptoms of anemia were stressed to the patient and his . He was recommended to continue with his Lovenox and aspirin at this present time given his anemia is mild, no sign of urinary obstruction and the risk of discontinuing in terms of coronary artery disease and pulmonary embolism outweighs that of the benefit of stopping. Referral: The patient was referred back to their primary care physician for follow-up in 2 to 3 days for a recheck of the current condition. Recommended repeating his H& H at this appointment. Impression Primary Impression: Hematuria Additional Impression: Anemia Departure Information Dispostion Home / Self-Care Condition FAIR Referrals Ann Olivas M.D. (PCP) Patient Instructions My [facility] Additional Instructions You were evaluated today for blood in your urine. Your doctor did not find any serious cause to warrant an admission to the hospital. It is not uncommon for minor bleeding to be discharged for outpatient testing and follow up visits. You were not found to be significantly anemic. The risks and benefits of continued anticoagulation were discussed and it is recommended you continue the Lovenox at this time. Ultrasound did not show any obstruction. Continue current medications. Return to the ER immediately for abdominal pain, back pain, worsening hematuria , passing out or feeling like you may pass out, vomiting, fevers, chest pains, increased difficulty breathing, worsening of your condition, or as needed. Follow up with your primary physician's office in the next 2-3 days for a recheck of your current condition and consideration of referral to urology if persistent. Resident Tracking Resident Involvement: Resident Care Provided Care Provided: Adult ED Problem Qualifiers Additional Impression: Anemia Anemia type: unspecified type Qualified Codes: D64.9 - Anemia, unspecified
[2016-10-31 14:27] LABS: HEMATOCRIT 35.6 % (42-52); MEAN CELL VOLUME 92.7 fL (80-100); MEAN CORPUSCULAR HEMOGLOBIN 29.7 pg (25-34); MEAN PLATELET VOLUME 8.4 fL (7.4-10.4); PLATELET COUNT 300 K/uL (130-400); RED BLOOD COUNT 3.84 M/uL (4.7-6.1); WHITE BLOOD COUNT 9.43 K/uL (4.8-10.8)
[2016-10-31] MEDS ORDERED: OXYC1TAB3 PO (14:31)
[2016-10-31] MEDS ORDERED: FENT75DI2 TD (14:31)
[2016-10-31 14:40] LABS: INR 1.1 (0.9-1.1); PARTIAL THROMBOPLASTIN RATIO 1.5; PROTHROMBIN TIME (PATIENT) 12.1 SECONDS (9.0-12.0)
[2016-10-31 14:41] LABS: BUN/CREATININE RATIO 28.4 (10-20); CALCIUM 9.9 mg/dl (8.5-10.1); CREATININE 0.73 mg/dl (0.60-1.40); POTASSIUM 3.9 mmol/L (3.5-5.1)
[2016-10-31 14:44] LABS: ALB/GLOB RATIO 0.5 (0.9-2)
--- NOTE | 2016-10-31 14:55 | DIAGNOSTIC IMAGING REPORT ---
SINGLE VIEW CHEST CLINICAL HISTORY: Dyspnea. FINDINGS: An AP, portable, upright chest radiograph is compared to study dated 08/17/2009. Correlation is made with chest CT dated 10/09/2016. The examination is degraded by portable technique and patient rotation. The heart is enlarged and there is atherosclerotic calcification of the thoracic aorta. Pulmonary vasculature is noncongested. Emphysema and chronic interstitial thickening are similar to previous. Numerous foci of pulmonary and pleural-based metastatic disease are again noted. There is right hilar adenopathy. No superimposed airspace consolidation or pleural effusion is identified. No pneumothorax is seen. The skeletal structures are osteopenic. Degenerative change is noted throughout the thoracic spine. Calcific tendinopathy is noted in the right shoulder. IMPRESSION: 1. Cardiomegaly and emphysema. 2. Multifocal pulmonary and pleural-based metastatic disease is again noted. This was better characterized on the 10/09/[address] 3. There is no evidence of superimposed airspace consolidation or pleural effusion. Electronically signed by: Marquez Cha M.D. 10/31/2016 2:54 PM Dictated Date/Time: 10/31/2016 2:52 PM
--- NOTE | 2016-10-31 17:06 | DIAGNOSTIC IMAGING REPORT ---
RENAL ULTRASOUND HISTORY: hematuria ?cause ?obstruction COMPARISON: Abdomen and pelvis CT 10/15/2016. FINDINGS: Right kidney: 12.5 cm. No hydronephrosis. A few small cysts with the largest in the upper pole measuring 2.5 cm. Left kidney: 12.2 cm. No hydronephrosis. A few cysts with the largest measuring 1.5 cm. Medial to the left kidney there is a 5.4 cm indeterminate cystic focus. This was not present on the 10/15/[address] Bladder: No bladder wall thickening. The bilateral ureteral jets were identified. IMPRESSION: 1. Bilateral renal cysts. 2. No hydronephrosis. 3. Medial to the left kidney there is a 5.4 cm indeterminate cystic focus. This was not present on the prior examination. This could represent an adjacent bowel loop or small fluid collection. Consider CT for further evaluation. Electronically signed by: Josue Peterson M.D. 10/31/2016 5:05 PM Dictated Date/Time: 10/31/2016 5:02 PM
[2016-10-31] MEDS ORDERED: OXYCODONE HCL IR 5 MG TAB (IMMEDIATE RELEASE) PO STA (17:41)
[2016-10-31] MEDS ORDERED: OPTIRAY 320 IV PRN (17:45)
[2016-10-31 17:49] LABS: MANUAL MICROSCOPIC REQUIRED? YES; URINE APPEARANCE TURBID (CLEAR); URINE COLOR RED; URINE NITRITE NEG (NEG); URINE SPECIFIC GRAVITY 1.025 (1.000-1.030); UROBILINOGEN NEG (NEG)
[2016-10-31 17:50] LABS: REVIEW REQ? NO; URINE BILIRUBIN NEG (NEG)
[2016-10-31 17:53] LABS: URINE BACTERIA NEG (NEG); URINE RBC >30 /hpf (0-4); ZZUR CULT IF INDIC CLEAN CATCH NO
[2016-10-31 19:10] VITALS: BP 128/57; PULSE 78; O2SAT 95
--- NOTE | 2016-10-31 20:22 | EMERGENCY ROOM VISIT NOTE ---
ED Visit Note First contact with patient: 13:45 Resident Physician Supervision Note: I interviewed and examined the patient. Discussed with Dr. Subramanian and agree with findings and plan as documented in the note. Any exceptions or clarifications are listed here: [None] Patient was evaluated and seemed to be in no significant distress. He is urinating without difficulty. Ultrasound was performed and is read as a medial to the left kidney there is a 5.4 cm indeterminate cystic focus. A follow-up CT scan was ordered however the patient was unable to lie flat secondary to his difficulty breathing and rib pain. The patient was discharged follow-up with PCP and possibly urology for evaluation. Bleeding is likely secondary to his aspirin and Lovenox therapy. Please see Dr. Subramanian's notes for further details. Documented By: Ema Pond
[2016-11-19] MEDS ORDERED: IPRA1AER2 INH (06:55)
[2016-12-18] MEDS ORDERED: ONDA8TAB6 PO (15:38)
[2016-12-18] MEDS ORDERED: ACET-1311 PO (15:39)
[2016-12-18] MEDS ORDERED: ENOX30IN4 SQ (16:12)
[2016-12-18] MEDS ORDERED: FENT100D10 TOP (16:12)
[2017-01-03] MEDS ORDERED: ENOX80IN SQ (07:35)
[2017-01-15] MEDS ORDERED: KFL500 PO (10:19)
[2017-01-15] MEDS ORDERED: FLM4 PO (10:19)
== END 2016-10-31 19:28 | disposition home or self-care (01) ==
LOC: C.EDB 13:38 → C.EDC 19:28
DX: R31.9 Hematuria, unspecified (principal); D64.9 Anemia, unspecified; J44.9 Chronic obstructive pulmonary disease, unspecified; I25.10 Atherosclerotic heart disease of native coronary artery without angina pectoris; Z87.891 Personal history of nicotine dependence; Z79.82 Long term (current) use of aspirin

== ENCOUNTER 2016-11-12 18:11 | Inpatient (IN) | payer OTHER ==
[~2016-11-12] VITALS: Ht 177.8 cm; Wt 91.3 kg
[~2016-11-12 18:11] MED LIST changes: -DRGTP12 TD; +FENT75DI2 TD; -OXYC-59 PO; +OXYC1TAB3 PO
[2016-11-12] MEDS ORDERED: ALBUT/IPRATROP 3MG/0.5MG NEB 3 ML VIAL INH STA (18:29)
[2016-11-12] MEDS ORDERED: SODIUM CHLORIDE 0.9% 1000ML 2,000 ML IV STA (18:29)
[2016-11-12] MEDS ORDERED: METHYLPREDNISOLONE 125 MG VIAL IV STA (18:29)
[2016-11-12] MEDS ORDERED: ACETAMINOPHEN 500 MG TAB PO STA (18:29)
--- NOTE | 2016-11-12 18:52 | EMERGENCY ROOM VISIT NOTE ---
History Report prepared by Deo: Win Tadeo Under the Supervision of: Dr. Domo Mendenhall M.D. First contact with patient: 18:25 Chief Complaint: FEVER Stated Complaint: FEVER- LUNG CA History of Present Illness The patient is a 66 year old male who presents to the Emergency Room with complaints of chest congestion beginning a few days ago. The patient states that he sometimes coughs up yellow mucous. He reports that he has had a decreased appetite, chest pain, and fevers. The patient notes that he is on 3L of oxygen at home, and his O2Sat was 75% en route to the ED. He states that he uses inhalers at home, and he has a history of COPD. He reports that he has stopped taken Tylenol because it had him experience hematuria. The patient denies edema to his legs, abdominal pain, and a history of liver problems. The patient's states that he has been confused lately. The patient's records note he is being treated with radiation for lung cancer. Source of History: patient Onset: few days ago Position: chest Quality: other (congestion) Timing: constant Associated Symptoms: + fevers, + chest pain, No abdominal pain Note: Associated symptoms: decreased appetite and confusion The patient denies edema to his legs and a history of liver problems. Review of Systems See HPI for pertinent positives & negatives. A total of 10 systems reviewed and were otherwise negative. Past Medical & Surgical Medical Problems: (1) Adenocarcinoma of unknown primary (2) COPD (chronic obstructive pulmonary disease) (3) Coronary artery disease (4) Pneumonia (5) Pulmonary embolism, bilateral Surgical Problems: (1) History of total replacement of right hip Family History Cancer Social History Smoking Status: Former Smoker Drug Use: none Marital Status: Housing Status: lives with significant other Occupation Status: employed Current/Historical Medications Scheduled Aspirin (Aspirin Ec), 81 MG PO DAILY Atenolol (Tenormin), Unknown Dose PO DAILY Budesonide/Formoterol Fumarate (Symbicort 160/4.5 Inhaler ), 2 PUFFS INH BID Enoxaparin (Enoxaparin Sodium), 90 MG SQ Q12 Fentanyl (Fentanyl), 75 MCG TD Q72H Furosemide (Lasix), Unknown Dose PO DAILY Ipratropium-Albuterol (Combivent Respimat), 1 PUFFS INH QID Magnesium Oxide (Mag-Ox), 400 MG PO DAILY Scheduled PRN Albuterol Sulfate (Proventil Hfa), 2 PUFFS INH QID PRN for Wheezing Oxycodone Ir (Roxicodone Ir), 10 MG PO Q6H PRN for Pain Allergies Coded Allergies: No Known Allergies (Verified , 11/12/16) Physical Exam Vital Signs Date Time Temp Pulse Resp B/P (MAP) Pulse Ox O2 Delivery O2 Flow Rate FiO2 11/12/16 23:15 71 11/12/16 22:32 78 22 105/53 92 Nasal Cannula 4.0 11/12/16 21:22 82 22 106/53 94 Nasal Cannula 4.0 11/12/16 19:59 97 24 103/57 94 Nasal Cannula 4.0 11/12/16 19:19 105 11/12/16 18:27 87 Nasal Cannula 3.0 11/12/16 18:19 38.3 110 20 90/60 75 Nasal Cannula 3.0 Physical Exam GENERAL: Patient is ill appearing and in no acute distress. Dehydrated appearing. HEENT: No acute trauma, normocephalic atraumatic, mucous membranes moist, no nasal congestion, no scleral icterus. NECK: No stridor, no adenopathy, no meningismus, trachea is midline. LUNGS: Dyspneic. Tachypneic. Decreased breath sounds to auscultation throughout. HEART: Regular rate and rhythm. No murmurs, rubs, gallops appreciated. ABDOMEN: Soft, nontender, bowel sounds positive, no masses appreciated, no peritonitis. BACK: No midline tenderness, no CVA tenderness EXTREMITIES: Normal motion all extremities, no cyanosis, no edema. NEUROLOGIC: Alert and oriented, no acute motor or sensory deficits, no focal weakness, cranial nerves grossly intact. SKIN: No rash, no jaundice, no diaphoresis. Medical Decision & Procedures ER Provider Diagnostic Interpretation: X ray results are stated below per my interpretation and the radiologist's interpretation. CHEST ONE VIEW PORTABLE CLINICAL HISTORY: Fever. Lung cancer. COMPARISON STUDY: Chest CT October 09, 2016 and chest radiograph October 31, 2016. FINDINGS: There is no pneumothorax or pleural effusion. Cardiomediastinal silhouette is stable. Right hilar enlargement is unchanged. Innumerable pulmonary nodules are again noted, as shown on prior chest CT of October 09, 2016. Several of these have likely increased in size. Linear left basilar opacities are suggestive of atelectasis. There is no consolidation to suggest pneumonia. A small lytic lesion within the proximal shaft of the right humerus may reflect a metastasis. Several pleural-based metastases are again noted. IMPRESSION: 1. Suspected increase in size of numerous pulmonary metastases since prior exam. Redemonstration of right hilar enlargement, better depicted on prior chest CT. 2. Linear bibasilar opacities which favor atelectasis. No lobar consolidation. Electronically signed by: Thom Casanova M.D. 11/12/2016 7:24 PM Dictated Date/Time: 11/12/2016 7:19 PM Laboratory Results 11/12/16 18:55 Red Blood Count 3.55, Mean Corpuscular Volume 93.8, Mean Corpuscular Hemoglobin 29.6, Mean Corpuscular Hemoglobin Concent 31.5, Mean Platelet Volume 8.3, Neutrophils (%) (Auto) 78.0, Lymphocytes (%) (Auto) 10.4, Monocytes (%) (Auto) 10.3, Eosinophils (%) (Auto) 0.9, Basophils (%) (Auto) 0.1, Neutrophils # (Auto ) 5.47, Lymphocytes # (Auto) 0.73, Monocytes # (Auto) 0.72, Eosinophils # (Auto ) 0.06, Basophils # (Auto) 0.01 11/12/16 18:55 Test 11/12/16 18:55 11/12/16 19:02 11/12/16 23:00 White Blood Count 7.01 K/uL (4.8-10.8) Red Blood Count 3.55 M/uL (4.7-6.1) Hemoglobin 10.5 g/dL (14.0-18.0) Hematocrit 33.3 % (42-52) Mean Corpuscular Volume 93.8 fL (80-100) Mean Corpuscular Hemoglobin 29.6 pg (25-34) Mean Corpuscular Hemoglobin Concent 31.5 g/dl (32-36) Platelet Count 216 K/uL (130-400) Mean Platelet Volume 8.3 fL (7.4-10.4) Neutrophils (%) (Auto) 78.0 % Lymphocytes (%) (Auto) 10.4 % Monocytes (%) (Auto) 10.3 % Eosinophils (%) (Auto) 0.9 % Basophils (%) (Auto) 0.1 % Neutrophils # (Auto) 5.47 K/uL (1.4-6.5) Lymphocytes # (Auto) 0.73 K/uL (1.2-3.4) Monocytes # (Auto) 0.72 K/uL (0.11-0.59) Eosinophils # (Auto) 0.06 K/uL (0-0.5) Basophils # (Auto) 0.01 K/uL (0-0.2) RDW Standard Deviation 46.3 fL (36.4-46.3) RDW Coefficient of Variation 13.5 % (11.5-14.5) Immature Granulocyte % (Auto) 0.3 % Immature Granulocyte # (Auto) 0.02 K/uL (0.00-0.02) Prothrombin Time 12.1 SECONDS (9.0-12.0) Prothromb Time International Ratio 1.1 (0.9-1.1) Anion Gap 7.0 mmol/L (3-11) Est Creatinine Clear Calc Drug Dose 104.1 ml/min Estimated GFR () 109.0 Estimated GFR (Non- 94.1 BUN/Creatinine Ratio 23.8 (10-20) Calcium Level 9.8 mg/dl (8.5-10.1) Magnesium Level 1.8 mg/dl (1.8-2.4) Total Bilirubin 0.3 mg/dl (0.2-1) Direct Bilirubin 0.1 mg/dl (0-0.2) Aspartate Amino Transf (AST/SGOT) 15 U/L (15-37) Alanine Aminotransferase (ALT/SGPT) 13 U/L (12-78) Alkaline Phosphatase 130 U/L (45-117) Total Creatine Kinase 19 U/L (39-308) Creatine Kinase MB < 0.5 ng/ml (0.5-3.6) Creatine Kinase MB Ratio (0-3.0) Troponin I < 0.015 ng/ml (0-0.045) Total Protein 7.9 gm/dl (6.4-8.2) Albumin 2.4 gm/dl (3.4-5.0) Bedside Lactic Acid Venous 1.78 mmol/L (0.90-1.70) Lactic Acid Level 0.8 mmol/L (0.4-2.0) Laboratory results as reviewed by me. Medications Administered Medications (Trade) Dose Ordered Sig/Abbi Route Start Time Stop Time Status Last Admin Dose Admin Sodium Chloride 2,000 ml @ 999 mls/hr Q2H1M STAT IV 11/12/16 18:29 11/12/16 20:29 DC 11/12/16 19:10 999 MLS/HR Acetaminophen (Tylenol Tab) 1,000 mg NOW STAT PO 11/12/16 18:29 11/12/16 18:31 DC 11/12/16 18:38 1,000 MG Albuterol/ Ipratropium (Duoneb) 3 ml NOW STAT INH 11/12/16 18:29 11/12/16 18:31 DC 11/12/16 18:39 3 ML Methylprednisolone Sodium Succinate (Solu-Medrol IV) 125 mg NOW STAT IV 11/12/16 18:29 11/12/16 18:31 DC 11/12/16 19:10 125 MG Levofloxacin (Levaquin / D5W) 500 mg NOW ONCE IV 11/12/16 19:30 11/12/16 19:31 DC 11/12/16 19:49 500 MG Cefepime HCl 1000 mg/Dextrose 111.3 ml @ 200 mls/hr NOW STAT IV 11/12/16 19:25 11/12/16 19:58 DC 11/12/16 20:17 200 MLS/HR Vancomycin HCl 2200 mg/Sodium Chloride 544 ml @ 200 mls/hr 1925 IV 11/12/16 19:25 11/12/16 22:09 DC 11/12/16 19:15 200 MLS/HR Sodium Chloride 1,000 ml @ 750 mls/hr Q1H20M STAT IV 11/12/16 19:58 11/12/16 21:17 DC 11/12/16 20:07 750 MLS/HR Hydromorphone HCl (Dilaudid Inj) 1 mg NOW STAT IV 11/12/16 19:58 11/12/16 19:59 DC 11/12/16 20:16 1 MG Oxycodone HCl (Roxicodone Immediate Rel Tab) 10 mg Q6H PRN PO 11/12/16 23:15 11/26/16 23:14 11/13/16 01:10 10 MG ECG Indication: chest pain Rate (beats per minute): 106 Rhythm: sinus tachycardia Findings: nonspecific-ST abn, no ectopy, other (No STEMI) ED Course 1824: The patient was evaluated in room A02. A complete history and physical exam was performed. 1828: Ordered Solu-Medrol IV 125 mg IV, Duoneb 3 ml INH, Tylenol Tab 1000 mg PO , Sodium Chloride 2000 ml @ 999 mls/hr IV 1924: Ordered Vancomycin HCl 2200 mg/Sodium Chloride 544 ml @ 200 mls/hr IV, Cefepime HCl 1000 mg/Dextrose 111.3 ml @ 200 mls/hr IV 1929: Ordered Levofloxacin 500 mg IV 1949: I reevaluated the patient, and he is breathing better. He received 2L of fluid and says he is feeling better. The patient reports that he is having pain and wants medication. 1957: Ordered Dilaudid Inj 1 mg IV, Sodium Chloride 1000 ml @ 750 mls/hr IV 2024: I discussed the patient's case with Dr. Palacios [facility] Hospitalist. He will evaluated the patient for further treatment. Medical Decision Differential: Viral, Pharyngitis, Cellulitis, Pneumonia, Influenza, Meningitis, Sepsis, Bacteremia, UTI/Pyelonephritis, Endocrine, Toxicologic, amongst other pathologies entertained. Medication Reconciliation: I attest that I have personally reviewed the patient 's current medication list. 66 yr old male arrives with complaint of shortness of breath and weakness. Tachycardic, hypoxic, mildly hypotensive and febrile on arrival even on his base [place] O2. Sepsis protocol with total 30ml/kg fluid (reassessed after half way ) and broad spectrum abx begun. CXR, cultures obtained. CXR with diffuse increase in cancer though I suspect much of this may be pneumonia. Labs remarkable for his mild bump in bicarb consistent with respiratory issues. Steroids/duoneb given as well. Dilaudid for cancer pain. Multiple re- evaluations of patient and doing better. Will come in for further treatment and evaluation on hospitalist service. Consults Time Called: 2022 Consulting Physician: Dr. Palacios [facility] Hospitalist Returned Call: 2024 I discussed the patient's case with Dr. Palacios [facility] Hospitalist. He will evaluated the patient for further treatment. Impression Primary Impression: Sepsis Additional Impressions: Pneumonia Lung cancer Hypoxia Critical Care I have personally spent greater than 45 minutes of critical care time in the direct management of this patient. This was a life/limb threatening event. This includes time spent evaluating patient, direct bedside care, chart review, placing orders, interpretation of diagnostic studies, discussion with consultants, patient, and family members, as well as other required patient management activities. This 45 minutes is in excess of all separately billable procedures. Scribe Attestation The scribe's documentation has been prepared under my direction and personally reviewed by me in its entirety. I confirm that the note above accurately reflects all work, treatment, procedures, and medical decision making performed by me. Departure Information Dispostion Being Evaluated By Hospitalist Ann Gordon M.D. (PCP) Patient Instructions My [facility] Problem Qualifiers
[2016-11-12 19:18] LABS: BASO % 0.1 %; BASO ABS # 0.01 K/uL (0-0.2); COMPLETE YES; EOS % 0.9 %; HEMATOCRIT 33.3 % (42-52); IG% 0.3 %; LYMPH % 10.4 %; LYMPH ABS # 0.73 K/uL (1.2-3.4); MEAN CELL VOLUME 93.8 fL (80-100); MEAN CORPUSCULAR HEMOGLOBIN 29.6 pg (25-34); MEAN CORPUSCULAR HGB CONC 31.5 g/dl (32-36); MEAN PLATELET VOLUME 8.3 fL (7.4-10.4); MONO % 10.3 %; PLATELET COUNT 216 K/uL (130-400); RED BLOOD COUNT 3.55 M/uL (4.7-6.1); WHITE BLOOD COUNT 7.01 K/uL (4.8-10.8)
[2016-11-12 19:24] LABS: INR 1.1 (0.9-1.1); PROTHROMBIN TIME (PATIENT) 12.1 SECONDS (9.0-12.0)
[2016-11-12] MEDS ORDERED: CEFEPIME IV 1,000 MG in DEXTROSE 5% 100ML 100 ML IV STA (19:25)
[2016-11-12] MEDS ORDERED: VANCOMYCIN INJ 2,200 MG in SODIUM CHLORIDE 0.9% 250ML 250 ML IV STA (19:25)
[2016-11-12] MEDS ORDERED: VANCOMYCIN INJ 2,200 MG in SODIUM CHLORIDE 0.9% 500ML 500 ML IV SCH (19:25)
--- NOTE | 2016-11-12 19:25 | DIAGNOSTIC IMAGING REPORT ---
CHEST ONE VIEW PORTABLE CLINICAL HISTORY: Fever. Lung cancer. COMPARISON STUDY: Chest CT October 09, 2016 and chest radiograph October 31, 2016. FINDINGS: There is no pneumothorax or pleural effusion. Cardiomediastinal silhouette is stable. Right hilar enlargement is unchanged. Innumerable pulmonary nodules are again noted, as shown on prior chest CT of October 09, 2016. Several of these have likely increased in size. Linear left basilar opacities are suggestive of atelectasis. There is no consolidation to suggest pneumonia. A small lytic lesion within the proximal shaft of the right humerus may reflect a metastasis. Several pleural-based metastases are again noted. IMPRESSION: 1. Suspected increase in size of numerous pulmonary metastases since prior exam. Redemonstration of right hilar enlargement, better depicted on prior chest CT. 2. Linear bibasilar opacities which favor atelectasis. No lobar consolidation. Electronically signed by: Thom Casanova M.D. 11/12/2016 7:24 PM Dictated Date/Time: 11/12/2016 7:19 PM
[2016-11-12] MEDS ORDERED: LEVAQUIN 500MG / 100ML D5W IV ONE (19:30)
[2016-11-12 19:41] LABS: ALT/SGPT 13 U/L (12-78); BLOOD UREA NITROGEN 19 mg/dl (7-18); BUN/CREATININE RATIO 23.8 (10-20); CALCIUM 9.8 mg/dl (8.5-10.1); CARBON DIOXIDE 38 mmol/L (21-32); CHLORIDE 89 mmol/L (98-107); CREATININE 0.78 mg/dl (0.60-1.40); GLUCOSE 111 mg/dl (70-99); MAGNESIUM 1.8 mg/dl (1.8-2.4); POTASSIUM 4.3 mmol/L (3.5-5.1); SODIUM 134 mmol/L (136-145)
[2016-11-12 19:47] LABS: ALKALINE PHOSPHATASE 130 U/L (45-117); AST/SGOT 15 U/L (15-37)
[2016-11-12] MEDS ORDERED: HYDROmorphone INJ 1 MG/ML SYR IV STA (19:58)
[2016-11-12] MEDS ORDERED: SODIUM CHLORIDE 0.9% 1000ML 1,000 ML IV STA (19:58)
[2016-11-12] MEDS ORDERED: ACETAMINOPHEN 325 MG TAB PO PRN (23:15)
[2016-11-12] MEDS ORDERED: ONDANSETRON INJ 2 MG/ML 2 ML VIAL IV PRN (23:15)
[2016-11-12] MEDS ORDERED: LEVALBUTEROL/IPRATROPIUM NEB INH PRN (23:15)
[2016-11-12] MEDS ORDERED: POLYETHYLENE (MIRALAX) 17 GM PACK PO PRN (23:15)
[2016-11-12] MEDS ORDERED: NON-FORMULARY MEDICATION (Fentanyl 75 MCG) TD SCH (23:15)
--- NOTE | 2016-11-12 23:25 | History and Physical ---
History & Physical Date & Time of Service: Nov 12, 2016 at 23:24 Chief Complaint: Fever- Lung Ca Primary Care Physician: Ann Olivas M.D. History of Present Illness 66-year-old male with past medical history of unknown primary adenocarcinoma with pulmonary metastasis, COPD, coronary artery disease, bilateral pulmonary emboli presented to the ER with complaints of chest congestion with started about a day ago. He also complained of a cough with yellowish sputum and had fevers, chills and sweats at night. He has a history of COPD and uses 3 L of oxygen continuously. He was scheduled for radiation therapy this morning and and his sats had dropped to the 70s. He was recommended to go to the ER. Denies any chest pain, palpitations. Past Medical/Surgical History Medical Problems: (1) Adenocarcinoma of unknown primary Permanent Comment: Metastatic disease to bone, liver, lungs Status: Chronic (2) COPD (chronic obstructive pulmonary disease) Status: Chronic (3) Coronary artery disease Status: Chronic (4) Pulmonary embolism, bilateral Status: Chronic Family History Cancer Social History Smoking Status: Former Smoker Drug Use: none Marital Status: Housing status: lives with significant other Occupational Status: employed Immunizations History of Influenza Vaccine: No History of Tetanus Vaccine?: No History of Pneumococcal: No History of Hepatitis B Vaccine: No Multi-Drug Resistant Organisms History of MDRO: No Allergies Coded Allergies: No Known Allergies (Verified , 11/12/16) Home Medications Scheduled Aspirin (Aspirin Ec), 81 MG PO DAILY Atenolol (Tenormin), Unknown Dose PO DAILY Budesonide/Formoterol Fumarate (Symbicort 160/4.5 Inhaler ), 2 PUFFS INH BID Enoxaparin (Enoxaparin Sodium), 90 MG SQ Q12 Fentanyl (Fentanyl), 75 MCG TD Q72H Fentanyl (Fentanyl), 100 MCG TD Q3D@0530 Furosemide (Lasix), Unknown Dose PO DAILY Ipratropium-Albuterol (Combivent Respimat), 1 PUFFS INH QID Levofloxacin (Levofloxacin), 750 MG PO DAILY@11 Magnesium Oxide (Mag-Ox), 400 MG PO DAILY Prednisone (Prednisone), 20 MG PO DIRECTED Sulfamethoxazole-Trimethoprim (Smz-Tmp Ds), 1 TAB PO Q12 Scheduled PRN Albuterol Sulfate (Proventil Hfa), 2 PUFFS INH QID PRN for Wheezing Oxycodone Ir (Roxicodone Ir), 10 MG PO Q6H PRN for Pain Review of Systems Constitutional: + fever, + chills, + sweats Eyes: No worsening of vision ENT: No hearing loss Respiratory: + cough, + sputum, + shortness of breath Cardiovascular: No chest pain Abdomen: No pain, No nausea, No vomiting Musculoskeletal: No joint pain Neurologic: No memory loss Psychiatric: No depression symptoms Endocrine: No fatigue Hematologic / Lymphatic: No abnormal bleeding/bruising Physical Exam Vital Signs Date Time Temp Pulse Resp B/P (MAP) Pulse Ox O2 Delivery O2 Flow Rate FiO2 11/12/16 23:15 71 11/12/16 22:32 78 22 105/53 92 Nasal Cannula 4.0 11/12/16 21:22 82 22 106/53 94 Nasal Cannula 4.0 11/12/16 19:59 97 24 103/57 94 Nasal Cannula 4.0 11/12/16 19:19 105 11/12/16 18:27 87 Nasal Cannula 3.0 11/12/16 18:19 38.3 110 20 90/60 75 Nasal Cannula 3.0 General Appearance: WD/WN, no apparent distress Head: normocephalic Eyes: normal inspection ENT: hearing grossly normal Neck: supple Respiratory/Chest: chest non-tender, + crackles (especially at the bases) Cardiovascular: regular rate, rhythm Abdomen/GI: normal bowel sounds, non tender, soft Extremities/Musculoskelatal: no pedal edema Neurologic/Psych: alert, normal mood/affect, oriented x 3 Diagnostics Laboratory Results Results Past 24 Hours Test 11/12/16 18:55 11/12/16 19:02 11/12/16 23:00 Range/Units White Blood Count 7.01 4.8-10.8 K/uL Red Blood Count 3.55 4.7-6.1 M/uL Hemoglobin 10.5 14.0-18.0 g/dL Hematocrit 33.3 42-52 % Mean Corpuscular Volume 93.8 80-100 fL Mean Corpuscular Hemoglobin 29.6 25-34 pg Mean Corpuscular Hemoglobin Concent 31.5 32-36 g/dl Platelet Count 216 130-400 K/uL Mean Platelet Volume 8.3 7.4-10.4 fL Neutrophils (%) (Auto) 78.0 % Lymphocytes (%) (Auto) 10.4 % Monocytes (%) (Auto) 10.3 % Eosinophils (%) (Auto) 0.9 % Basophils (%) (Auto) 0.1 % Neutrophils # (Auto) 5.47 1.4-6.5 K/uL Lymphocytes # (Auto) 0.73 1.2-3.4 K/uL Monocytes # (Auto) 0.72 0.11-0.59 K/uL Eosinophils # (Auto) 0.06 0-0.5 K/uL Basophils # (Auto) 0.01 0-0.2 K/uL RDW Standard Deviation 46.3 36.4-46.3 fL RDW Coefficient of Variation 13.5 11.5-14.5 % Immature Granulocyte % (Auto) 0.3 % Immature Granulocyte # (Auto) 0.02 0.00-0.02 K/uL Prothrombin Time 12.1 9.0-12.0 SECONDS Prothromb Time International Ratio 1.1 0.9-1.1 Sodium Level 134 136-145 mmol/L Potassium Level 4.3 3.5-5.1 mmol/L Chloride Level 89 98-107 mmol/L Carbon Dioxide Level 38 21-32 mmol/L Anion Gap 7.0 3-11 mmol/L Blood Urea Nitrogen 19 7-18 mg/dl Creatinine 0.78 0.60-1.40 mg/dl Est Creatinine Clear Calc Drug Dose 104.1 ml/min Estimated GFR () 109.0 Estimated GFR (Non- 94.1 BUN/Creatinine Ratio 23.8 10-20 Random Glucose 111 70-99 mg/dl Calcium Level 9.8 8.5-10.1 mg/dl Magnesium Level 1.8 1.8-2.4 mg/dl Total Bilirubin 0.3 0.2-1 mg/dl Direct Bilirubin 0.1 0-0.2 mg/dl Aspartate Amino Transf (AST/SGOT) 15 15-37 U/L Alanine Aminotransferase (ALT/SGPT) 13 12-78 U/L Alkaline Phosphatase 130 45-117 U/L Total Creatine Kinase 19 39-308 U/L Creatine Kinase MB < 0.5 0.5-3.6 ng/ml Creatine Kinase MB Ratio 0-3.0 Troponin I < 0.015 0-0.045 ng/ml Total Protein 7.9 6.4-8.2 gm/dl Albumin 2.4 3.4-5.0 gm/dl Bedside Lactic Acid Venous 1.78 0.90-1.70 mmol/L Microbiology Results 11/12/16 Blood Culture, Received Pending 11/12/16 Blood Culture, Received Pending Diagnostic Radiology CHEST ONE VIEW PORTABLE CLINICAL HISTORY: Fever. Lung cancer. COMPARISON STUDY: Chest CT October 09, 2016 and chest radiograph October 31, 2016. FINDINGS: There is no pneumothorax or pleural effusion. Cardiomediastinal silhouette is stable. Right hilar enlargement is unchanged. Innumerable pulmonary nodules are again noted, as shown on prior chest CT of October 09, 2016. Several of these have likely increased in size. Linear left basilar opacities are suggestive of atelectasis. There is no consolidation to suggest pneumonia. A small lytic lesion within the proximal shaft of the right humerus may reflect a metastasis. Several pleural-based metastases are again noted. IMPRESSION: 1. Suspected increase in size of numerous pulmonary metastases since prior exam. Redemonstration of right hilar enlargement, better depicted on prior chest CT. 2. Linear bibasilar opacities which favor atelectasis. No lobar consolidation. Electronically signed by: Thom Casanova M.D. 11/12/2016 7:24 PM Dictated Date/Time: 11/12/2016 7:19 PM EKG Sinus tachycardia Possible Left atrial enlargement Incomplete right bundle branch block Right ventricular hypertrophy with repolarization abnormality Possible Inferior infarct , age undetermined Abnormal ECG When compared with ECG of 11-OCT-2016 06:41, [place] interval has decreased Vent. rate has increased BY 57 BPM Incomplete right bundle branch block is now Present ... Impression Assessment and Plan 66-year-old male with past medical history of unknown primary adenocarcinoma with pulmonary metastasis, COPD, coronary artery disease, bilateral pulmonary emboli presented to the ER with complaints of chest congestion with started about a day ago. He also complained of a cough with yellowish sputum and had fevers, chills and sweats at night. Sepsis likely secondary to pneumonia: meets criteria with tachycardia, fever, hypotension - Chest x-ray:1. Suspected increase in size of numerous pulmonary metastases since prior exam. Redemonstration of right hilar enlargement, better depicted on prior chest CT. 2. Linear bibasilar opacities which favor atelectasis. No lobar consolidation. - Lactic acid initially at 1.78, recheck lactic acid - Continue vancomycin, Zosyn, Levaquin Respiratory distress with underlying history of COPD: - Likely secondary to pneumonia - Continue oxygen per protocol - Received 125 mg of Solu-Medrol in the ER - Continue Solu-Medrol 60 mg every 6 hours - Xopenex/Atrovent every 6 hours, every 3 hours when necessary - Continue home inhalers - Was scheduled for bronchoscopy next week for biopsy of suspected lesion in lungs - Pulmonology consult Pulmonary metastases, pathological rib fractures suspected to be secondary to metastases - Unknown primary - Follows with Dr. Biggs - Consider oncology consult - Undergoes radiation therapy for spine metastases- consult radiation oncology History of pulmonary embolism - Continue Lovenox DVT prophylaxis: Lovenox Full code Disposition: Admitted to telemetry Attending Addendum: I physically seen and examined this patient, have supervised the medical residents activities, and agree with the H&P as noted above with the following exceptions: NONE The patient is awake, well-developed and adequately nourished, alert and oriented 3, normocephalic and atraumatic, lying in bed and in mild acute distress. HEENT--PERRL, EOMI, mucous membranes and oropharynx dry. Neck--supple, no JVD or bruits, thyroid normal, trachea midline, no adenopathy. Heart--normal S1 and S2, no extra beats, no murmurs, rubs or gallops. Lungs--coarse rhonchi bilaterally, mild respiratory distress, no accessory muscle use. Abdomen--normal bowel sounds and soft, nontender and nondistended, no hernias or masses, no organomegaly. Extremities--no cyanosis, clubbing or edema. There are good distal pulses b/l. Dermatologic--normal skin turgor, normal color, warm and dry, no abnormal lymph nodes, no rash. Neurologic--cranial nerves II through XII grossly intact. Rheumatologic--normal range of motion. Psychiatric--normal affect. Assessment and Plan: 1. Pneumonia/SIRS/respiratory distress--the patient will be admitted to monitored bed. Place on Solu-Medrol 60 mg IV every 6 hours. Vancomycin IV per renal dosing, Zosyn 3.375 mg IV every 8 hours, and levofloxacin 500 mg IV daily. Xopenex/Atrovent nebulizers every 6 hours while awake and every 2 hours when necessary. Nasal cannula 2 L of oxygen, titrate to keep pulse ox greater than or equal to 92%. Consult pulmonology earlier bronchoscopy as he was scheduled next week. Unknown primary adenocarcinoma with pulmonary metastases-bronchoscopy as above, consult his oncologist Dr. Biggs. Level of Care Telemetry Resuscitation Status FULL RESUSCITATION VTE Prophylaxis VTE Risk Assessment Done? Y/N: Yes Risk Level: Moderate Given or contraindicated: Enoxaparin (Lovenox)SQ
[2016-11-13] VITALS (13 sets, daily range): BP systolic 103–113; BP diastolic 56–64; PULSE 64–93; TEMP 36.5–37.2; O2SAT 90–96; Ht 177.8 cm; Wt 91.3 kg
[2016-11-13] MEDS ORDERED: IPRATROPIUM BROMIDE NEB SOLN 0.02% 2.5 ML VIAL INH PRN (00:15)
[2016-11-13] MEDS ORDERED: LEVALBUTEROL 1.25MG/0.5ML NEB INH PRN (00:15)
[2016-11-13] MEDS: OXYCODONE HCL IR 5 MG TAB (IMMEDIATE RELEASE) PO PRN ×2 (01:10→07:32)
[2016-11-13] MEDS: METHYLPREDNISOLONE IV 60 MG in SYRINGE 0 ML IV SCH ×4 (01:34→19:43)
[2016-11-13] MEDS: IPRATROPIUM BROMIDE NEB SOLN 0.02% 2.5 ML VIAL INH SCH ×4 (01:40→18:44)
[2016-11-13] MEDS: LEVALBUTEROL 1.25MG/0.5ML NEB INH SCH ×4 (01:40→18:44)
[2016-11-13] MEDS ORDERED: NURSING VERBAL MED ORDER ONE ×3 (02:30→17:45)
[2016-11-13] MEDS ORDERED: MoRPHine SULFATE 2 MG/ML CARP IV STA (02:34)
[2016-11-13] MEDS ORDERED: LEVALBUTEROL/IPRATROPIUM NEB INH SCH (03:00)
[2016-11-13 05:45] LABS: HEMATOCRIT 31.3 % (42-52); MEAN CELL VOLUME 93.7 fL (80-100); MEAN CORPUSCULAR HEMOGLOBIN 29.3 pg (25-34); MEAN CORPUSCULAR HGB CONC 31.3 g/dl (32-36); MEAN PLATELET VOLUME 8.5 fL (7.4-10.4); PLATELET COUNT 214 K/uL (130-400); RED BLOOD COUNT 3.34 M/uL (4.7-6.1)
[2016-11-13 06:03] LABS: CREATININE 0.61 mg/dl (0.60-1.40)
[2016-11-13] MEDS: FUROSEMIDE 20 MG TAB PO SCH (08:14)
[2016-11-13] MEDS: MAGNESIUM OXIDE 400 MG TAB PO SCH (08:14)
[2016-11-13] MEDS: ENOXAPARIN 100 MG/1ML SYR SQ SCH ×2 (08:14→19:44)
[2016-11-13] MEDS: BUDESONIDE/FORMOTEROL FUMARATE 160/4.5 60 PUFFS/INHALER INH SCH ×2 (08:15→19:43)
[2016-11-13] MEDS: ASPIRIN 81 MG ECTAB PO SCH (08:15)
[2016-11-13] MEDS: CHECK FENTANYL PATCH PLACEMENT SCH ×2 (08:26→16:25)
--- NOTE | 2016-11-13 08:35 | Oncology Consultation ---
Oncology/Heme Consultation Date of Consultation: Nov 13, 2016. Attending Physician: Justin Palacios M.D. Reason for Consultation: Continuum of care for this pleasant 66-year-old gentleman with metastatic adenocarcinoma primary unclear. History of Present Illness Mr. Camp is a very pleasant but unfortunate 66-year-old gentleman who is currently under the care of Dr. Gaudencio Biggs with a diagnosis of metastatic adenocarcinoma primary unknown. He was first evaluated by Dr. Biggs back on 22/07/2016. Apparently he suffers from multiple comorbid issues and suffered a fall back in August 2016 which resulted in no acute right chest wall pain. He did not seek medical attention for several weeks but after developing shortness breath presented to the ER in early October 2016. CT scan done at that time revealed widespread metastatic disease particularly a large right hilar mass. He underwent CT-guided biopsy of a right-sided rib lesion on 613 which revealed adenocarcinoma. Unfortunately the specimen was limited and therefore primary could not be identified. He was receiving palliative radiation therapy to the chest wall at the time of his admission. Apparently over the past 2448 hrs. developed low-grade fever and on admission temperature was 102. Chest x-ray was performed revealing disease progression. No definitive evidence of pneumonia. Blood cultures have been drawn and are currently pending. According to Kevin, Dr. Biggs had considered further diagnostics including bronchoscopy to confirm diagnosis in essence to establish a therapeutic plan for salvage chemotherapy. Specifically CT scan results dated 10/09/16 revealed bilateral pulmonary emboli, and irregular pulmonary and pleural-based nodules very dominant right hilar mass 4.6 x 3.1 cm and an osteolytic lesion involving T5 as well as osteolytic lesions of the right posterior 11th and left lateral eighth ribs. Past Medical/Surgical History Medical Problems: (1) Anemia Status: Acute (2) Bilateral pulmonary embolism Status: Acute (3) Hematuria Status: Acute (4) Hypoxia Status: Acute (5) Lung cancer Status: Acute (6) Mediastinal lymphadenopathy Status: Acute (7) Non-traumatic compression fracture of T5 thoracic vertebra Status: Acute (8) Osteolytic 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 Status: Acute (9) Pathological fracture of rib of right side Status: Acute (10) Pulmonary nodules Status: Acute (11) Sepsis Status: Acute Family History Cancer Mother had undetermined metastatic disease and succumbed to [employer] metastatic type unknown Social History Retired, reformed smoker, nondrinker. Smoking Status: Former Smoker Drug Use: none Marital Status: Housing Status: lives with significant other Occupation Status: employed Allergies Coded Allergies: No Known Allergies (Verified , 11/12/16) Home Medications Scheduled Aspirin (Aspirin Ec), 81 MG PO DAILY Atenolol (Tenormin), Unknown Dose PO DAILY Budesonide/Formoterol Fumarate (Symbicort 160/4.5 Inhaler ), 2 PUFFS INH BID Enoxaparin (Enoxaparin Sodium), 90 MG SQ Q12 Fentanyl (Fentanyl), 75 MCG TD Q72H Furosemide (Lasix), Unknown Dose PO DAILY Ipratropium-Albuterol (Combivent Respimat), 1 PUFFS INH QID Magnesium Oxide (Mag-Ox), 400 MG PO DAILY Scheduled PRN Albuterol Sulfate (Proventil Hfa), 2 PUFFS INH QID PRN for Wheezing Oxycodone Ir (Roxicodone Ir), 10 MG PO Q6H PRN for Pain Current Inpatient Medications Current Inpatient Medications Medications (Trade) Dose Ordered Sig/Abbi Route Start Time Stop Time Status Last Admin Dose Admin Acetaminophen (Tylenol Tab) 650 mg Q4H PRN PO 11/12/16 23:15 12/12/16 23:14 Ondansetron HCl (Zofran Inj) 4 mg Q6H PRN IV 11/12/16 23:15 12/12/16 23:14 Polyethylene (Miralax Powder Packet) 17 gm DAILY PRN PO 11/12/16 23:15 12/12/16 23:14 Methylprednisolone Sodium Succinate 60 mg/Syringe 0.96 ml @ 1.5 mls/min Q6H IV 11/13/16 02:00 12/13/16 01:59 11/13/16 07:33 1.5 MLS/MIN Aspirin (Ecotrin Tab) 81 mg DAILY PO 11/13/16 09:00 12/13/16 08:59 Budesonide/ Formoterol Fumarate (Symbicort 160/ 4.5 Inh) 2 puffs BID INH 11/13/16 09:00 12/13/16 08:59 Enoxaparin Sodium (Lovenox Inj) 90 mg Q12 SQ 11/13/16 09:00 12/13/16 08:59 Furosemide (Lasix Tab) 20 mg DAILY PO 11/13/16 09:00 12/13/16 08:59 Magnesium Oxide (Mag-Ox Tab) 400 mg DAILY PO 11/13/16 09:00 12/13/16 08:59 Oxycodone HCl (Roxicodone Immediate Rel Tab) 10 mg Q6H PRN PO 11/12/16 23:15 11/26/16 23:14 11/13/16 07:32 10 MG Atenolol (Tenormin Tab) 25 mg DAILY PO 11/13/16 09:00 12/13/16 08:59 Ipratropium [place] (Atrovent 0.02% 0.5MG/2.5ML Neb) 0.5 mg Q6R INH 11/13/16 03:00 12/13/16 02:59 11/13/16 07:04 0.5 MG Levalbuterol (Xopenex 1.25MG/ 0.5ML Neb) 1.25 mg Q6R INH 11/13/16 03:00 12/13/16 02:59 11/13/16 07:04 1.25 MG Ipratropium [place] (Atrovent 0.02% 0.5MG/2.5ML Neb) 0.5 mg Q3H PRN INH 11/13/16 00:15 12/13/16 00:14 Levalbuterol (Xopenex 1.25MG/ 0.5ML Neb) 1.25 mg Q3H PRN INH 11/13/16 00:15 12/13/16 00:14 Fentanyl (Duragesic Patch) 75 mcg Q3D TD 11/15/16 05:30 11/29/16 05:29 Miscellaneous (Fentanyl Patch Remove & Waste) 1 ea Q3D N/A 11/15/16 05:29 12/15/16 05:28 Miscellaneous Information (Check Fentanyl Patch Placement) 1 ea QS N/A 11/13/16 08:00 12/13/16 07:59 Review of Systems Constitutional: + fever, + chills Eyes: No worsening of vision, No eye pain, No redness, No discharge, No diplopia, No problem reported ENT: No hearing loss, No unusual epistaxis, No nasal symptoms, No sore throat, No tinnitus, No dental problems, No trouble swallowing, No problem reported Respiratory: + shortness of breath Cardiovascular: No chest pain, No orthopnea, No PND, No edema, No claudication , No palpitations, No problem reported Abdomen: No pain, No nausea, No vomiting, No diarrhea, No constipation, No GI bleeding, No problem reported Musculoskeletal: + problem reported (chronic pain secondary to metastatic disease currently receiving palliative radiation therapy to right chest wall.) Genitourinary - Male: No hematuria, No dysuria, No urinary frequency, No urinary urgency, No urinary hesitancy, No urinary retention, No urinary incontinence, No penile discharge, No lesions, No impotence, No problem reported Psychiatric: No depression symptoms, No anhedonism, No anxiety, No insomnia, No substance abuse, No problem reported Endocrine: No fatigue, No excessive thirst, No excessive urination, No problem reported Hematologic / Lymphatic: No abnormal bleeding/bruising, No clotting problems, No swollen lymph nodes, No night sweats, No problem reported Integumentary: No rash, No itch, No new/changing skin lesions, No color change , No bleeding, No problem reported Physical Exam Date Time Temp Pulse Resp B/P (MAP) Pulse Ox O2 Delivery O2 Flow Rate FiO2 11/13/16 07:29 36.6 69 22 113/64 (80) 91 Nasal Cannula 3.0 11/13/16 07:04 64 18 95 Nasal Cannula 4.0 11/13/16 04:00 93 Nasal Cannula 4.0 11/13/16 04:00 37.2 68 110/57 (74) 93 Nasal Cannula 4.0 11/13/16 01:40 71 18 92 Nasal Cannula 4.0 11/13/16 00:52 36.5 79 112/60 95 Nasal Cannula 4.0 11/13/16 00:17 36.7 64 18 111/53 95 Nasal Cannula 4.0 11/12/16 23:15 71 11/12/16 22:32 78 22 105/53 92 Nasal Cannula 4.0 11/12/16 21:22 82 22 106/53 94 Nasal Cannula 4.0 11/12/16 19:59 97 24 103/57 94 Nasal Cannula 4.0 11/12/16 19:19 105 11/12/16 18:27 87 Nasal Cannula 3.0 11/12/16 18:19 38.3 110 20 90/60 75 Nasal Cannula 3.0 General Appearance: WD/WN Head: normocephalic, atraumatic Eyes: normal inspection, PERRL, EOMI ENT: normal ENT inspection Neck: supple Respiratory/Chest: + rhonchi (right posterior base.) Cardiovascular: regular rate, rhythm, no JVD, no murmur Abdomen/GI: normal bowel sounds, non tender, soft Extremities/Musculoskelatal: normal inspection, no calf tenderness, no pedal edema 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 Skin: normal color, warm/dry, no rash Laboratory Results Last 24 Hours Test 11/12/16 18:55 11/12/16 19:02 11/12/16 23:00 11/13/16 05:20 White Blood Count 7.01 K/uL 4.10 K/uL Red Blood Count 3.55 M/uL 3.34 M/uL Hemoglobin 10.5 g/dL 9.8 g/dL Hematocrit 33.3 % 31.3 % Mean Corpuscular Volume 93.8 fL 93.7 fL Mean Corpuscular Hemoglobin 29.6 pg 29.3 pg Mean Corpuscular Hemoglobin Concent 31.5 g/dl 31.3 g/dl Platelet Count 216 K/uL 214 K/uL Mean Platelet Volume 8.3 fL 8.5 fL Neutrophils (%) (Auto) 78.0 % Lymphocytes (%) (Auto) 10.4 % Monocytes (%) (Auto) 10.3 % Eosinophils (%) (Auto) 0.9 % Basophils (%) (Auto) 0.1 % Neutrophils # (Auto) 5.47 K/uL Lymphocytes # (Auto) 0.73 K/uL Monocytes # (Auto) 0.72 K/uL Eosinophils # (Auto) 0.06 K/uL Basophils # (Auto) 0.01 K/uL RDW Standard Deviation 46.3 fL 47.0 fL RDW Coefficient of Variation 13.5 % 13.7 % Immature Granulocyte % (Auto) 0.3 % Immature Granulocyte # (Auto) 0.02 K/uL Prothrombin Time 12.1 SECONDS Prothromb Time International Ratio 1.1 Sodium Level 134 mmol/L 137 mmol/L Potassium Level 4.3 mmol/L 4.0 mmol/L Chloride Level 89 mmol/L 97 mmol/L Carbon Dioxide Level 38 mmol/L 34 mmol/L Anion Gap 7.0 mmol/L 6.0 mmol/L Blood Urea Nitrogen 19 mg/dl 17 mg/dl Creatinine 0.78 mg/dl 0.61 mg/dl Est Creatinine Clear Calc Drug Dose 104.1 ml/min 135.3 ml/min Estimated GFR () 109.0 120.6 Estimated GFR (Non- 94.1 104.1 BUN/Creatinine Ratio 23.8 28.0 Random Glucose 111 mg/dl 142 mg/dl Calcium Level 9.8 mg/dl 9.0 mg/dl Magnesium Level 1.8 mg/dl Total Bilirubin 0.3 mg/dl Direct Bilirubin 0.1 mg/dl Aspartate Amino Transf (AST/SGOT) 15 U/L Alanine Aminotransferase (ALT/SGPT) 13 U/L Alkaline Phosphatase 130 U/L Total Creatine Kinase 19 U/L Creatine Kinase MB < 0.5 ng/ml Creatine Kinase MB Ratio Troponin I < 0.015 ng/ml Total Protein 7.9 gm/dl Albumin 2.4 gm/dl Bedside Lactic Acid Venous 1.78 mmol/L Lactic Acid Level 0.8 mmol/L Assessment & Plan 1. fever etiology unclear. 2. Metastatic adenocarcinoma primary unknown. 3. Chronic pain syndrome secondary to osseous metastatic disease. In summary, Kevin is a very pleasant but unfortunate 66-year-old gentleman with metastatic carcinoma primary unknown. He was diagnosed back in early October is currently under the care of Dr. Genaro Biggs. Dr. Biggs's initial consultation from 10/25/2016 outlines plans to confirm diagnosis. He had suggested consulting pulmonary specifically Dr. Breaux to attempt bronchoscopy to biopsy the dominant right hilar mass. Obviously, with potential infectious issues would hold off on any such procedure until patient is medically stable. Suggest consulting radiation oncology for continuity of care. Agree with current medical management and have nothing further to add. Dr. Biggs is aware of the patient's admission to hospital and will ensure appropriate outpatient follow-up is scheduled prior to patient's discharge. Thank you for assisting us in the care of this very pleasant gentleman.
[2016-11-13] MEDS ORDERED: MoRPHine SULFATE 2 MG/ML CARP IV SCH (09:35)
--- NOTE | 2016-11-13 11:34 | Family Medicine Progress Note ---
Progress Note Date of Service Nov 13, 2016. Subjective Pt evaluation today including: conversation w/ patient, conversation w/ family , conversation w/ advertising consultant, review of inpatient medication list Pain: moderate 6/10 PO Intake: poor Voiding: no voiding problems Patient says that systemic symptoms have subsided including fevers, chills and sweats. Still having some pleuritic chest pain with deep breath he is feeling fatigued but his appetite is improving this morning Constitutional: + fatigue, No fever, No chills, No sweats Respiratory: + cough, + sputum, + dyspnea on exertion, No wheezing, No dyspnea at rest Cardiovascular: + chest pain, No palpitations Abdomen: No pain, No nausea, No vomiting, No diarrhea Musculoskeletal: + joint pain, + muscle pain (back) Medications Current Inpatient Medications Medications (Trade) Dose Ordered Sig/Abbi Route Start Time Stop Time Status Last Admin Dose Admin Acetaminophen (Tylenol Tab) 650 mg Q4H PRN PO 11/12/16 23:15 12/12/16 23:14 Ondansetron HCl (Zofran Inj) 4 mg Q6H PRN IV 11/12/16 23:15 12/12/16 23:14 Polyethylene (Miralax Powder Packet) 17 gm DAILY PRN PO 11/12/16 23:15 12/12/16 23:14 Methylprednisolone Sodium Succinate 60 mg/Syringe 0.96 ml @ 1.5 mls/min Q6H IV 11/13/16 02:00 12/13/16 01:59 11/13/16 07:33 1.5 MLS/MIN Aspirin (Ecotrin Tab) 81 mg DAILY PO 11/13/16 09:00 12/13/16 08:59 11/13/16 08:15 81 MG Budesonide/ Formoterol Fumarate (Symbicort 160/ 4.5 Inh) 2 puffs BID INH 11/13/16 09:00 12/13/16 08:59 11/13/16 08:15 2 PUFFS Enoxaparin Sodium (Lovenox Inj) 90 mg Q12 SQ 11/13/16 09:00 12/13/16 08:59 11/13/16 08:14 90 MG Furosemide (Lasix Tab) 20 mg DAILY PO 11/13/16 09:00 12/13/16 08:59 11/13/16 08:14 20 MG Magnesium Oxide (Mag-Ox Tab) 400 mg DAILY PO 11/13/16 09:00 12/13/16 08:59 11/13/16 08:14 400 MG Oxycodone HCl (Roxicodone Immediate Rel Tab) 10 mg Q6H PRN PO 11/12/16 23:15 11/26/16 23:14 11/13/16 07:32 10 MG Atenolol (Tenormin Tab) 25 mg DAILY PO 11/13/16 09:00 12/13/16 08:59 11/13/16 08:15 25 MG Ipratropium [place] (Atrovent 0.02% 0.5MG/2.5ML Neb) 0.5 mg Q6R INH 11/13/16 03:00 12/13/16 02:59 11/13/16 07:04 0.5 MG Levalbuterol (Xopenex 1.25MG/ 0.5ML Neb) 1.25 mg Q6R INH 11/13/16 03:00 12/13/16 02:59 11/13/16 07:04 1.25 MG Ipratropium [place] (Atrovent 0.02% 0.5MG/2.5ML Neb) 0.5 mg Q3H PRN INH 11/13/16 00:15 12/13/16 00:14 Levalbuterol (Xopenex 1.25MG/ 0.5ML Neb) 1.25 mg Q3H PRN INH 11/13/16 00:15 12/13/16 00:14 Fentanyl (Duragesic Patch) 75 mcg Q3D TD 11/15/16 05:30 11/29/16 05:29 Miscellaneous (Fentanyl Patch Remove & Waste) 1 ea Q3D N/A 11/15/16 05:29 12/15/16 05:28 Miscellaneous Information (Check Fentanyl Patch Placement) 1 ea QS N/A 11/13/16 08:00 12/13/16 07:59 11/13/16 08:26 1 EA Objective Vital Signs Date Time Temp Pulse Resp B/P (MAP) Pulse Ox O2 Delivery O2 Flow Rate FiO2 11/13/16 08:00 Nasal Cannula 4.0 11/13/16 07:29 36.6 69 22 113/64 (80) 91 Nasal Cannula 3.0 11/13/16 07:04 64 18 95 Nasal Cannula 4.0 11/13/16 04:00 93 Nasal Cannula 4.0 11/13/16 04:00 37.2 68 110/57 (74) 93 Nasal Cannula 4.0 11/13/16 01:40 71 18 92 Nasal Cannula 4.0 11/13/16 00:52 36.5 79 112/60 95 Nasal Cannula 4.0 11/13/16 00:17 36.7 64 18 111/53 95 Nasal Cannula 4.0 11/12/16 23:15 71 11/12/16 22:32 78 22 105/53 92 Nasal Cannula 4.0 11/12/16 21:22 82 22 106/53 94 Nasal Cannula 4.0 11/12/16 19:59 97 24 103/57 94 Nasal Cannula 4.0 11/12/16 19:19 105 11/12/16 18:27 87 Nasal Cannula 3.0 11/12/16 18:19 38.3 110 20 90/60 75 Nasal Cannula 3.0 Physical Exam General Appearance: WD/WN, no apparent distress ENT: hearing grossly normal, pharynx normal Neck: no JVD, no carotid bruits, + pertinent finding (submandibular lymphadenopathy) Respiratory/Chest: chest non-tender, no respiratory distress, no accessory muscle use, + crackles (LLL crackles) Cardiovascular: regular rate, rhythm, + systolic murmur (3/6 systolic murmur radiating to carotids) Abdomen: normal bowel sounds, non tender, soft Extremities: non-tender, no calf tenderness, normal capillary refill 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: no motor/sensory deficits, normal mood/affect, oriented x 3 Laboratory Results Results Past 24 Hours Test 11/12/16 18:55 11/12/16 19:02 11/12/16 23:00 11/13/16 05:20 Range/Units White Blood Count 7.01 4.10 4.8-10.8 K/uL Red Blood Count 3.55 3.34 4.7-6.1 M/uL Hemoglobin 10.5 9.8 14.0-18.0 g/dL Hematocrit 33.3 31.3 42-52 % Mean Corpuscular Volume 93.8 93.7 80-100 fL Mean Corpuscular Hemoglobin 29.6 29.3 25-34 pg Mean Corpuscular Hemoglobin Concent 31.5 31.3 32-36 g/dl Platelet Count 216 214 130-400 K/uL Mean Platelet Volume 8.3 8.5 7.4-10.4 fL Neutrophils (%) (Auto) 78.0 % Lymphocytes (%) (Auto) 10.4 % Monocytes (%) (Auto) 10.3 % Eosinophils (%) (Auto) 0.9 % Basophils (%) (Auto) 0.1 % Neutrophils # (Auto) 5.47 1.4-6.5 K/uL Lymphocytes # (Auto) 0.73 1.2-3.4 K/uL Monocytes # (Auto) 0.72 0.11-0.59 K/uL Eosinophils # (Auto) 0.06 0-0.5 K/uL Basophils # (Auto) 0.01 0-0.2 K/uL RDW Standard Deviation 46.3 47.0 36.4-46.3 fL RDW Coefficient of Variation 13.5 13.7 11.5-14.5 % Immature Granulocyte % (Auto) 0.3 % Immature Granulocyte # (Auto) 0.02 0.00-0.02 K/uL Prothrombin Time 12.1 9.0-12.0 SECONDS Prothromb Time International Ratio 1.1 0.9-1.1 Sodium Level 134 137 136-145 mmol/L Potassium Level 4.3 4.0 3.5-5.1 mmol/L Chloride Level 89 97 98-107 mmol/L Carbon Dioxide Level 38 34 21-32 mmol/L Anion Gap 7.0 6.0 3-11 mmol/L Blood Urea Nitrogen 19 17 7-18 mg/dl Creatinine 0.78 0.61 0.60-1.40 mg/dl Est Creatinine Clear Calc Drug Dose 104.1 135.3 ml/min Estimated GFR () 109.0 120.6 Estimated GFR (Non- 94.1 104.1 BUN/Creatinine Ratio 23.8 28.0 10-20 Random Glucose 111 142 70-99 mg/dl Calcium Level 9.8 9.0 8.5-10.1 mg/dl Magnesium Level 1.8 1.8-2.4 mg/dl Total Bilirubin 0.3 0.2-1 mg/dl Direct Bilirubin 0.1 0-0.2 mg/dl Aspartate Amino Transf (AST/SGOT) 15 15-37 U/L Alanine Aminotransferase (ALT/SGPT) 13 12-78 U/L Alkaline Phosphatase 130 45-117 U/L Total Creatine Kinase 19 39-308 U/L Creatine Kinase MB < 0.5 0.5-3.6 ng/ml Creatine Kinase MB Ratio 0-3.0 Troponin I < 0.015 0-0.045 ng/ml Total Protein 7.9 6.4-8.2 gm/dl Albumin 2.4 3.4-5.0 gm/dl Bedside Lactic Acid Venous 1.78 0.90-1.70 mmol/L Lactic Acid Level 0.8 0.4-2.0 mmol/L Microbiology Results 11/12/16 Blood Culture, Received Pending 11/12/16 Blood Culture, Received Pending Assessment and Plan 66-year-old male with past medical history of unknown primary adenocarcinoma with pulmonary metastasis, COPD, coronary artery disease, bilateral pulmonary emboli presented to the ER with complaints of chest congestion with started about a day ago. He also complained of a cough with yellowish sputum and had fevers, chills and sweats at night. Sepsis likely secondary to pneumonia: meets criteria with tachycardia, fever, hypotension - Chest x-ray with LLL consolidation and increase in size of pulm nodules - Lactic acid initially at 1.78, and 0.8 on recheck - Continue vancomycin, Zosyn, Levaquin Respiratory distress with underlying history of COPD: - Likely secondary to pneumonia - Continue oxygen per protocol - Continue Solu-Medrol 60 mg every 6 hours - Xopenex/Atrovent every 6 hours, every 3 hours when necessary - Continue home inhalers - Was scheduled for bronchoscopy next week for biopsy of suspected lesion in lungs - Will defer bronchoscopy until patients is feeling better and hemodynamically stable Pulmonary metastases, pathological rib fractures suspected to be secondary to metastases - Unknown primary - Follows with Dr. Biggs - Seen by oncology this morning and will f/u patient as outpatient when he is better - Undergoes radiation therapy for spine metastases- consult radiation oncology- will get radiation today History of pulmonary embolism - Continue Lovenox DVT prophylaxis: Lovenox Full code Disposition: stable for transfer to med/surg Resident Physician Supervision Note: I interviewed and examined the patient. Discussed with Dr. Denney and agree with findings and plan as documented in the note. Any exceptions or clarifications are listed here: None Documented By: Santiago Marquis feeling better no f/c/s. breathing improving. uses O2 at home as well all other ROS otherwise negative except for as above vitals noted nad breathing unlabored L base rales, R base harsh wheeze HAP - improving - hypoxia improving as well. has baseline chronic respiratory failure. streamline abx to vanco and levaquin. stable for med surg, home if ongoing improvement Continued [facility] stay due to: multiple IV medications needed
--- NOTE | 2016-11-13 13:14 | Radiation Oncology Follow-Up ---
Radiation Oncology Follow-Up Date of Visit Nov 13, 2016. (Kristi Ibanez PA-C) Reason For Visit Currently an inpatient. Admitted with pneumonia and sepsis. Has been receiving radiation therapy for palliation of pain. He had received 8 of a planned 10 fractions of treatment prior to his admission. 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 Hagan is a 66-year-old male who has a one to one and a half pack smoking history for 40 years. He quit smoking 2 years ago. He has a history of chronic obstructive pulmonary disease and is on chronic oxygen. On August 21 the patient fell in his house and his right ribs hit the wooden arm of a loveseat causing right sided rib pain. This pain has gradually increased and was worsened by cough or deep respiration. Because of a attempt to avoid deep respiration the patient is also noted increasing shortness of breath. Approximate 1 week ago the patient presented to the [facility] with these complaints. A chest x-ray was reportedly taken which did not show any fractures but did show pneumonia. The patient was treated with a Z-Rubén which was completed. Unfortunately the patient continued to have cough and shortness of breath. The pain was in the right side of his chest and ribs and was constant. He rated the pain as a 6-7 out of 10. More recently the pain has become more severe and more sharp especially with certain movements or breathing patterns. The pain occasionally radiated towards the center of his chest. He therefore again presented to the [facility] clinic yesterday and spoke with the a nurse practitioner who recommended the patient go to the emergency department. In the emergency department he underwent x-rays of the right ribs. No acute fractures were identified, no evidence of pneumothorax were noted. However multiple pulmonary nodules were appreciated and CT scan was recommended. Patient therefore underwent a CT angiogram of the chest. There were filling defects within the left lower lobe pulmonary artery which extended into the segmental and subsegmental bronchi. This was consistent with pulmonary embolus. A segmental pulmonary embolus was also seen in the right lower lobe pulmonary artery. Emphysema was noted in the lungs with no pleural effusion. There were numerous (greater than 30) irregular pulmonary and pleural-based nodules consistent with multifocal pulmonary metastatic disease. The largest lesion was present in the anterior right upper lobe adjacent to the pleura measuring 3.8 x 1.9 cm and appears to extend through the pleura. A pleural- based lesion was noted in the right upper lobe measuring 2.7 cm. In the mediastinum there were mildly enlarged mediastinal lymph nodes. The largest was in the AP window measuring 1.3 cm. A right hilar lymph node/mass was seen measuring 4.6 x 3.1 cm with no left hilar adenopathy. There was no axillary or supraclavicular adenopathy. The skeletal structures were osteopenic with degenerative changes seen throughout the thoracic spine. There was a permeative osteolytic lesion identified in the body of T5 with a mild pathologic fracture at this site. The tumor extended posteriorly from the T5 vertebral body and caused mild compromise of the central canal. Osteolytic lesion was also seen within the left transverse process of L1. There were osteolytic lesions with pathologic fractures seen involving the right posterior 11th rib and the left lateral eighth rib. Additional smaller osteolytic lesions are seen. Dr. Moo Breaux was called to see the patient in referral and he discussed the CT findings with the patient. He will evaluate the role of pathologic verification of what clearly appears to be a lung primary with metastatic disease. He also suggested that we see this patient in referral for evaluation and discussion of role of palliative radiation to the area of painful bony metastatic site. It is for this reason the patient was seen in referral. (Kristi Ibanez PA-C) Interim History He underwent CT simulation and began radiation therapy. He has received a total of 8 fractions of a planned 10 treatments. He was seen yesterday for his on treatment visit. He had a temperature of 102. He had been having fever and chills. He had a cough which is productive of yellow sputum. He had noticed wheezing and increasing shortness of breath. He has had a response to treatment in that his pain level has decreased. Initially his pain level was 7. At his on treatment visit yesterday the pain level was 5. Due to his symptoms it was recommended that he presented to the emergency room. He was evaluated and admitted with a working diagnosis of pneumonia and sepsis. (Kristi Ibanez PA-C) Allergies Coded Allergies: No Known Allergies (Verified , 11/12/16) Home Medications Scheduled Aspirin (Aspirin Ec), 81 MG PO DAILY Atenolol (Tenormin), Unknown Dose PO DAILY Budesonide/Formoterol Fumarate (Symbicort 160/4.5 Inhaler ), 2 PUFFS INH BID Enoxaparin (Enoxaparin Sodium), 90 MG SQ Q12 Fentanyl (Fentanyl), 75 MCG TD Q72H Furosemide (Lasix), Unknown Dose PO DAILY Ipratropium-Albuterol (Combivent Respimat), 1 PUFFS INH QID Magnesium Oxide (Mag-Ox), 400 MG PO DAILY Scheduled PRN Albuterol Sulfate (Proventil Hfa), 2 PUFFS INH QID PRN for Wheezing Oxycodone Ir (Roxicodone Ir), 10 MG PO Q6H PRN for Pain Physical Exam Vital Signs Date Time Temp Pulse Resp B/P (MAP) Pulse Ox O2 Delivery O2 Flow Rate FiO2 11/13/16 12:00 Nasal Cannula 4.0 11/13/16 11:27 36.6 93 20 107/63 (78) 93 Nasal Cannula 3.0 11/13/16 08:00 Nasal Cannula 4.0 11/13/16 07:29 36.6 69 22 113/64 (80) 91 Nasal Cannula 3.0 11/13/16 07:04 64 18 95 Nasal Cannula 4.0 11/13/16 04:00 93 Nasal Cannula 4.0 11/13/16 04:00 37.2 68 110/57 (74) 93 Nasal Cannula 4.0 11/13/16 01:40 71 18 92 Nasal Cannula 4.0 11/13/16 00:52 36.5 79 112/60 95 Nasal Cannula 4.0 11/13/16 00:17 36.7 64 18 111/53 95 Nasal Cannula 4.0 11/12/16 23:15 71 11/12/16 22:32 78 22 105/53 92 Nasal Cannula 4.0 11/12/16 21:22 82 22 106/53 94 Nasal Cannula 4.0 11/12/16 19:59 97 24 103/57 94 Nasal Cannula 4.0 11/12/16 19:19 105 11/12/16 18:27 87 Nasal Cannula 3.0 11/12/16 18:19 38.3 110 20 90/60 75 Nasal Cannula 3.0 Pain: Side: Right Patient Pain Scale: 0 - 10 Initial Pain Intensity: 6.0 Pain Description: Sharp Fatigue: None General Appearance: no apparent distress Eyes: normal inspection, EOMI ENT: normal ENT inspection, hearing grossly normal Neck: no adenopathy, thyroid normal Respiratory/Chest: no respiratory distress, no accessory muscle use, + decreased breath sounds, + wheezing (lung sounds are improved compared to yesterday. There is less congestion and wheezing.) Cardiovascular: regular rate, rhythm, no gallop, no murmur Abdomen: non tender Extremities: no pedal edema 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: no motor/sensory deficits, alert, normal mood/affect Skin: warm/dry (Kristi Ibanez PA-C) Laboratory Studies Test 10/09/16 11:30 10/09/16 11:37 10/09/16 13:22 10/09/16 21:35 Immature Granulocyte % (Auto) 0.2 % White Blood Count 10.08 K/uL (4.8-10.8) Red Blood Count 4.32 M/uL (4.7-6.1) Hemoglobin 12.9 g/dL (14.0-18.0) Hematocrit 42.0 % (42-52) Mean Corpuscular Volume 97.2 fL (80-100) Mean Corpuscular Hemoglobin 29.9 pg (25-34) Mean Corpuscular Hemoglobin Concent 30.7 g/dl (32-36) Platelet Count 262 K/uL (130-400) Mean Platelet Volume 9.1 fL (7.4-10.4) Neutrophils (%) (Auto) 75.9 % Lymphocytes (%) (Auto) 12.8 % Monocytes (%) (Auto) 9.9 % Eosinophils (%) (Auto) 1.0 % Basophils (%) (Auto) 0.2 % Neutrophils # (Auto) 7.65 K/uL (1.4-6.5) Lymphocytes # (Auto) 1.29 K/uL (1.2-3.4) Monocytes # (Auto) 1.00 K/uL (0.11-0.59) Eosinophils # (Auto) 0.10 K/uL (0-0.5) Basophils # (Auto) 0.02 K/uL (0-0.2) Immature Granulocyte # (Auto) 0.02 K/uL (0.00-0.02) Direct Bilirubin 0.1 mg/dl (0-0.2) Prostate Specific Antigen 1.450 ng/ml (0.000-4.000) Hepatitis C Antibody Screen NEG (NEG) POC D-Dimer > 450 ng/mlFEU (0-450) POC Troponin I < 0.030 ng/ml (0-0.045) < 0.030 ng/ml (0-0.045) Troponin I < 0.015 ng/ml (0-0.045) Test 10/14/16 05:20 10/31/16 14:12 10/31/16 17:33 11/12/16 18:55 PTT 31.7 SECONDS (21.0-31.0) 38.1 SECONDS (21.0-31.0) Partial Thromboplastin Ratio 1.2 1.5 Prothrombin Time 12.1 SECONDS (9.0-12.0) 12.1 SECONDS (9.0-12.0) Prothrombin Time INR 1.1 (0.9-1.1) 1.1 (0.9-1.1) Total Bilirubin 0.2 mg/dl (0.2-1) 0.3 mg/dl (0.2-1) Aspartate Amino Transferase (AST) 15 U/L (15-37) 15 U/L (15-37) Alanine Aminotransferase (ALT) 17 U/L (12-78) 13 U/L (12-78) Alkaline Phosphatase 153 U/L (45-117) 130 U/L (45-117) Total Protein 7.9 gm/dl (6.4-8.2) 7.9 gm/dl (6.4-8.2) Albumin 2.6 gm/dl (3.4-5.0) 2.4 gm/dl (3.4-5.0) Globulin 5.3 gm/dl (2.5-4.0) Albumin/Globulin Ratio 0.5 (0.9-2) Urine Color RED Urine Appearance TURBID (CLEAR) Urine pH 6.0 (4.5-7.5) Urine Specific [place] 1.025 (1.000-1.030) Urine Protein 2+ (NEG) Urine Glucose (UA) NEG (NEG) Urine Ketones NEG (NEG) Urine Occult Blood 3+ (NEG) Urine Nitrite NEG (NEG) Urine Bilirubin NEG (NEG) Urine Urobilinogen NEG (NEG) Urine Leukocyte Esterase NEG (NEG) Urine RBC >30 /hpf (0-4) Urine WBC 1-5 /hpf (0-5) Urine Epithelial Cells 0-5 /lpf (0-5) Urine Bacteria NEG (NEG) White Blood Count 7.01 K/uL (4.8-10.8) Red Blood Count 3.55 M/uL (4.7-6.1) Hemoglobin 10.5 g/dL (14.0-18.0) Hematocrit 33.3 % (42-52) Mean Corpuscular Volume 93.8 fL (80-100) Mean Corpuscular Hemoglobin 29.6 pg (25-34) Mean Corpuscular Hemoglobin Concent 31.5 g/dl (32-36) Platelet Count 216 K/uL (130-400) Mean Platelet Volume 8.3 fL (7.4-10.4) Neutrophils (%) (Auto) 78.0 % Lymphocytes (%) (Auto) 10.4 % Monocytes (%) (Auto) 10.3 % Eosinophils (%) (Auto) 0.9 % Basophils (%) (Auto) 0.1 % Neutrophils # (Auto) 5.47 K/uL (1.4-6.5) Lymphocytes # (Auto) 0.73 K/uL (1.2-3.4) Monocytes # (Auto) 0.72 K/uL (0.11-0.59) Eosinophils # (Auto) 0.06 K/uL (0-0.5) Basophils # (Auto) 0.01 K/uL (0-0.2) RDW Standard Deviation 46.3 fL (36.4-46.3) RDW Coefficient of Variation 13.5 % (11.5-14.5) Immature Granulocyte % (Auto) 0.3 % Immature Granulocyte # (Auto) 0.02 K/uL (0.00-0.02) Sodium Level 134 mmol/L (136-145) Potassium Level 4.3 mmol/L (3.5-5.1) Chloride Level 89 mmol/L (98-107) Carbon Dioxide Level 38 mmol/L (21-32) Anion Gap 7.0 mmol/L (3-11) Blood Urea Nitrogen 19 mg/dl (7-18) Creatinine 0.78 mg/dl (0.60-1.40) Est Creatinine Clear Calc Drug Dose 104.1 ml/min Estimated GFR () 109.0 Estimated GFR (Non- 94.1 BUN/Creatinine Ratio 23.8 (10-20) Random Glucose 111 mg/dl (70-99) Calcium Level 9.8 mg/dl (8.5-10.1) Magnesium Level 1.8 mg/dl (1.8-2.4) Direct Bilirubin 0.1 mg/dl (0-0.2) Total Creatine Kinase 19 U/L (39-308) Creatine Kinase MB < 0.5 ng/ml (0.5-3.6) Creatine Kinase MB Ratio (0-3.0) Troponin I < 0.015 ng/ml (0-0.045) Test 11/12/16 19:02 11/12/16 23:00 11/13/16 05:20 POC Lactic Acid Venous 1.78 mmol/L (0.90-1.70) Lactic Acid Level 0.8 mmol/L (0.4-2.0) White Blood Count 4.10 K/uL (4.8-10.8) Red Blood Count 3.34 M/uL (4.7-6.1) Hemoglobin 9.8 g/dL (14.0-18.0) Hematocrit 31.3 % (42-52) Mean Corpuscular Volume 93.7 fL (80-100) Mean Corpuscular Hemoglobin 29.3 pg (25-34) Mean Corpuscular Hemoglobin Concent 31.3 g/dl (32-36) RDW Standard Deviation 47.0 fL (36.4-46.3) RDW Coefficient of Variation 13.7 % (11.5-14.5) Platelet Count 214 K/uL (130-400) Mean Platelet Volume 8.5 fL (7.4-10.4) Sodium Level 137 mmol/L (136-145) Potassium Level 4.0 mmol/L (3.5-5.1) Chloride Level 97 mmol/L (98-107) Carbon Dioxide Level 34 mmol/L (21-32) Anion Gap 6.0 mmol/L (3-11) Blood Urea Nitrogen 17 mg/dl (7-18) Creatinine 0.61 mg/dl (0.60-1.40) Est Creatinine Clear Calc Drug Dose 135.3 ml/min Estimated GFR () 120.6 Estimated GFR (Non- 104.1 BUN/Creatinine Ratio 28.0 (10-20) Random Glucose 142 mg/dl (70-99) Calcium Level 9.0 mg/dl (8.5-10.1) (Kristi Ibanez PA-C) Additional Studies CHEST ONE VIEW PORTABLE CLINICAL HISTORY: Fever. Lung cancer. COMPARISON STUDY: Chest CT October 09, 2016 and chest radiograph October 31, 2016. FINDINGS: There is no pneumothorax or pleural effusion. Cardiomediastinal silhouette is stable. Right hilar enlargement is unchanged. Innumerable pulmonary nodules are again noted, as shown on prior chest CT of October 09, 2016. Several of these have likely increased in size. Linear left basilar opacities are suggestive of atelectasis. There is no consolidation to suggest pneumonia. A small lytic lesion within the proximal shaft of the right humerus may reflect a metastasis. Several pleural-based metastases are again noted. IMPRESSION: 1. Suspected increase in size of numerous pulmonary metastases since prior exam. Redemonstration of right hilar enlargement, better depicted on prior chest CT. 2. Linear bibasilar opacities which favor atelectasis. No lobar consolidation. Electronically signed by: Thom Casanova M.D. 11/12/2016 7:24 PM (Kristi Ibanez PA-C) Assessment & Plan Blood cultures are pending. He is undergoing treatment with antibiotics, steroids, and respiratory treatments. He does feel improved today compared to yesterday. Vital signs show that the temperature is remaining normal. Dr. Her spoke with the hospitalist. Kadeem reviewed his case and was felt the patient could come down today for his 9th treatment. He will complete radiation therapy tomorrow. Patient is in agreement and would like to be treated today and continue his radiation therapy. We will continue to follow his information in the electronic medical record. (Kristi Ibanez PA-C) Total Time In Follow-Up I spent 20 minutes speaking to the patient performing examination. I spent 15 minutes reviewing information in completing this note. (Kristi Ibanez PA-C) Copy To Ann Olivas M.D.; Genaro Biggs MD
--- NOTE | 2016-11-13 14:34 | Pulmonary Consultation ---
History General Date of Service: Nov 13, 2016. Stated Complaint: Pneumonia, Sepsis HPI The patient is a 66 year old male who presents to [facility] with complaints of Pneumonia, Sepsis. The patient's primary care provider is Ann Olivas M.D.. Mr. 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 He was recently diagnosed s/p FNA of right 11th rib on 10/15/2016 s/p recent hospitalization after a fall. Patient states that was at scheduled for radiation therapy yesterday, but had episode of desaturation to the 70's and labored breathing that was associated with documented fever of 102. He was transferred to the [facility] for further evaluation. On further questioning, he has had generalized fatigue, subjective fever and chills associated with infrequent cough and yellowish productive sputum. He denies any chest pain or palpitations. He states that he has chronic anterior rib pain on the right and left back pain. He states that he has orthopnea and usually sleeps in chair. His ET is about 50 feet. Patient has been following with [facility] with Drs. Pulido and Saeid, who had scheduled a bronchoscopy on 11/19--to obtain more tissue for immunochemistry as patient has right hilar enlargement, which would make him a candidate for EBUS. His pulmonary medications include symbicort 160/4.5 2 puffs BID, Lovenox 90mg SQ Q12h, Combivent Respimat Q4h and proventil 2 puffs q4h prn. Initial VS were significant for T 38.3, P 110, RR 20, SaO2 75% on 3L NC which improved to 92-94% on 4L. CT chest was done that showed increased in sized of pulmonary metastases since prior exam on 11/08/2016. Left linear based opacities suggestive of atelectasis, and several pleural based metastates are were seen. He was admitted to the medical floor for Sepsis secondary to pneumonia. He was started on vancomycin, cefipime and Levaquin for empiric antibiotic coverage. He has been evaluated by hematology and oncology and s/p / radiation treatments. Historian: patient Onset: just prior to arrival Severity: moderate Complaint Status: intermittent Quality of Pain: aching Modifying Factors: exertion, pain medication Review of Systems Constitutional: reports: as stated in HPI, chills, diaphoresis, fever, malaise , weakness Eyes: reports: no symptoms ENT: reports: no symptoms Cardiovascular: reports: no symptoms Respiratory: reports: as stated in HPI, cough, orthopnea, shortness of breath, sputum production, cyanosis, TSE, denies: stridor, wheezing, PND, hemoptysis Gastrointestinal: reports: no symptoms Musculoskeletal: reports: back pain, other (rib pain) Integumentary: reports: dryness (erythema on ears) Neurologic: reports: no symptoms Psychiatric: reports: no symptoms, as stated in HPI Endocrine: no symptoms Hematologic / Lymphatic: no symptoms Allergic / Immunologic: no symptoms Past Medical History Past Medical History: Adenocarcinoma with unknown primary Pulmonary metastatic disease COPD on LTOT VTE on lovenox CAD Past Surgical History: s/p biopsy of 11th left rib Family History Cancer Social History Hx Tobacco Use In Past Year?: No Smoking Status: Former Smoker (40 pk year history; quit to years ago) Marital status: Housing status: lives with significant other Occupational Status: employed Immunizations History of Influenza Vaccine: No History of Tetanus Vaccine?: No History of Pneumococcal: No History of Hepatitis B Vaccine: No History of MDRO History of MDRO: No Allergies Coded Allergies: No Known Allergies (Verified , 11/12/16) Current Medications Reported Home Medications Medications Dose Route/Sig Max Daily Dose Days Date Category Fentanyl 75 Mcg/Hr Dis 75 Mcg TD Q72H 10/31/16 Reported Roxicodone Ir (Oxycodone HCl) 5 Mg Tab 10 Mg PO Q6H PRN 10/31/16 Reported Combivent Respimat (Ipratropium-Albuterol) 1 Aer Aer 1 Puffs INH QID 10/28/16 Reported Enoxaparin Sodium (Enoxaparin) 100 Mg/Ml Inj 90 Mg SQ Q12 30 10/16/16 Rx Symbicort 160/4.5 Inhaler (Budesonide/Formoterol Fumarate) Aero 2 Puffs INH BID 10/10/16 Reported Aspirin Ec (Aspirin) 81 Mg Tab 81 Mg PO DAILY 10/10/16 Reported Proventil Hfa (Albuterol Sulfate) 108 Mcg/Act Aer 2 Puffs INH QID PRN 10/10/16 Reported Mag-Ox (Magnesium Oxide) 400 Mg Tab 400 Mg PO DAILY 10/09/16 Reported Tenormin (Atenolol) 25 Mg Tab Unknown Dose PO DAILY 10/09/16 Reported Lasix (Furosemide) 20 Mg Tab Unknown Dose PO DAILY 10/09/16 Reported Physical Physical Exam Vital Signs: Date Time Temp Pulse Resp B/P (MAP) Pulse Ox O2 Delivery O2 Flow Rate FiO2 11/13/16 12:00 Nasal Cannula 4.0 11/13/16 11:27 36.6 93 20 107/63 (78) 93 Nasal Cannula 3.0 11/13/16 08:00 Nasal Cannula 4.0 11/13/16 07:29 36.6 69 22 113/64 (80) 91 Nasal Cannula 3.0 11/13/16 07:04 64 18 95 Nasal Cannula 4.0 11/13/16 04:00 93 Nasal Cannula 4.0 11/13/16 04:00 37.2 68 110/57 (74) 93 Nasal Cannula 4.0 11/13/16 01:40 71 18 92 Nasal Cannula 4.0 11/13/16 00:52 36.5 79 112/60 95 Nasal Cannula 4.0 11/13/16 00:17 36.7 64 18 111/53 95 Nasal Cannula 4.0 11/12/16 23:15 71 11/12/16 22:32 78 22 105/53 92 Nasal Cannula 4.0 11/12/16 21:22 82 22 106/53 94 Nasal Cannula 4.0 11/12/16 19:59 97 24 103/57 94 Nasal Cannula 4.0 11/12/16 19:19 105 11/12/16 18:27 87 Nasal Cannula 3.0 11/12/16 18:19 38.3 110 20 90/60 75 Nasal Cannula 3.0 General Appearance: WELL-APPEARING, NO APPARENT DISTRESS Head: NORMOCEPHALIC, ATRAUMATIC Eyes: PERRLA, NO DISCHARGE, EOMI ENT: NORMAL EAR EXAM, other (erythema of ears) Neck: NORMAL RANGE OF MOTION, NO TENDERNESS, TRACHEA MIDLINE, NO STRIDOR, SUPPLE Respiratory: NO RESPIRATORY DISTRESS, other (bibasilar crackes, good air entry bilaterally.) Cardiovasular: REGULAR RATE/RHYTHM, NORMAL S1S2, NORMAL PERIPHERAL PULSES Abdomen: NON TENDER, NORMAL BOWEL SOUNDS, NO REBOUND, NO GUARDING Back: NORMAL INSPECTION, NO MIDLINE TENDERNESS Upper Extremities: NO EDEMA Lower Extremities: NO EDEMA Neuro: ALERT, ORIENTED x 3, NORMAL MOTOR EXAM, NORMAL SENSATION Psychiatric: NORMAL AFFECT, NO SUICIDAL IDEATION Diagnostics Labs Results Past 24 Hours Test 11/12/16 18:55 11/12/16 19:02 11/12/16 23:00 11/13/16 05:20 Range/Units White Blood Count 7.01 4.10 4.8-10.8 K/uL Red Blood Count 3.55 3.34 4.7-6.1 M/uL Hemoglobin 10.5 9.8 14.0-18.0 g/dL Hematocrit 33.3 31.3 42-52 % Mean Corpuscular Volume 93.8 93.7 80-100 fL Mean Corpuscular Hemoglobin 29.6 29.3 25-34 pg Mean Corpuscular Hemoglobin Concent 31.5 31.3 32-36 g/dl Platelet Count 216 214 130-400 K/uL Mean Platelet Volume 8.3 8.5 7.4-10.4 fL Neutrophils (%) (Auto) 78.0 % Lymphocytes (%) (Auto) 10.4 % Monocytes (%) (Auto) 10.3 % Eosinophils (%) (Auto) 0.9 % Basophils (%) (Auto) 0.1 % Neutrophils # (Auto) 5.47 1.4-6.5 K/uL Lymphocytes # (Auto) 0.73 1.2-3.4 K/uL Monocytes # (Auto) 0.72 0.11-0.59 K/uL Eosinophils # (Auto) 0.06 0-0.5 K/uL Basophils # (Auto) 0.01 0-0.2 K/uL RDW Standard Deviation 46.3 47.0 36.4-46.3 fL RDW Coefficient of Variation 13.5 13.7 11.5-14.5 % Immature Granulocyte % (Auto) 0.3 % Immature Granulocyte # (Auto) 0.02 0.00-0.02 K/uL Prothrombin Time 12.1 9.0-12.0 SECONDS Prothromb Time International Ratio 1.1 0.9-1.1 Sodium Level 134 137 136-145 mmol/L Potassium Level 4.3 4.0 3.5-5.1 mmol/L Chloride Level 89 97 98-107 mmol/L Carbon Dioxide Level 38 34 21-32 mmol/L Anion Gap 7.0 6.0 3-11 mmol/L Blood Urea Nitrogen 19 17 7-18 mg/dl Creatinine 0.78 0.61 0.60-1.40 mg/dl Est Creatinine Clear Calc Drug Dose 104.1 135.3 ml/min Estimated GFR () 109.0 120.6 Estimated GFR (Non- 94.1 104.1 BUN/Creatinine Ratio 23.8 28.0 10-20 Random Glucose 111 142 70-99 mg/dl Calcium Level 9.8 9.0 8.5-10.1 mg/dl Magnesium Level 1.8 1.8-2.4 mg/dl Total Bilirubin 0.3 0.2-1 mg/dl Direct Bilirubin 0.1 0-0.2 mg/dl Aspartate Amino Transf (AST/SGOT) 15 15-37 U/L Alanine Aminotransferase (ALT/SGPT) 13 12-78 U/L Alkaline Phosphatase 130 45-117 U/L Total Creatine Kinase 19 39-308 U/L Creatine Kinase MB < 0.5 0.5-3.6 ng/ml Creatine Kinase MB Ratio 0-3.0 Troponin I < 0.015 0-0.045 ng/ml Total Protein 7.9 6.4-8.2 gm/dl Albumin 2.4 3.4-5.0 gm/dl Bedside Lactic Acid Venous 1.78 0.90-1.70 mmol/L Lactic Acid Level 0.8 0.4-2.0 mmol/L Microbiology Results 11/12/16 Blood Culture, Received Pending 11/12/16 Blood Culture, Received Pending Diagnostic Radiology CT chest: 11/12/2016 FINDINGS: There is no pneumothorax or pleural effusion. Cardiomediastinal silhouette is stable. Right hilar enlargement is unchanged. Innumerable pulmonary nodules are again noted, as shown on prior chest CT of October 09, 2016. Several of these have likely increased in size. Linear left basilar opacities are suggestive of atelectasis. There is no consolidation to suggest pneumonia. A small lytic lesion within the proximal shaft of the right humerus may reflect a metastasis. Several pleural-based metastases are again noted. IMPRESSION: 1. Suspected increase in size of numerous pulmonary metastases since prior exam. Redemonstration of right hilar enlargement, better depicted on prior chest CT. 2. Linear bibasilar opacities which favor atelectasis. No lobar consolidation. Impression Assessment and Plan 66 year old male for acute on chronic hypoxic respiratory failure. Problems: Hypoxia Pneumonia COPD on LTOT Metastatic cancer with metastatis to bone, liver and lungs VTE -Agree with empiric abx -obtain sputum cx -c/w O2 to maintain SaO2 btw 88-92% -use incentive spirometry to assist with atelectasis -continue with bronchodilators, inhaled corticosteroids -Taper solumedrol as tolerated. -Patient was scheduled for bronchoscopy as an outpatient for 11/19. Will hold off on doing inpatient until patient is medically optimized respiratory status is more stable. Patient has pleural based nodule that may possible biopsied by radiology under CT guidance. -Patient is being followed Oncology and Radiation oncology while inpatient. Scheduled for last dose or RT -Continue with Lovenox for VTE treatment -Recommend palliative care consult to discuss goals of care as patient's declining and likely to spiral with this terminal disease. I appreciate the consult.
[2016-11-13] MEDS ORDERED: VANCOMYCIN CONSULT ACTIVE PRN (14:45)
--- NOTE | 2016-11-13 15:47 | Pharmacy Progress Note ---
Pharmacy Abx Initial Consult Date of Service Nov 13, 2016. Pharmacy Dosing Scope Date of Consult: 11/13/16 Consultation requested by: Dr. Domo Denney Pharmacy is consulted to initiate Vancomycin IV dosing therapy, order appropriate labs and adjust drug dose/frequency. Subjective The patient is a 66 year old male admitted on Nov 12, 2016 at 23:24. * For possible LLL pneumonia * Empirically starting broad spectrum antibiotics. Objective Height (Feet): 5 Height (Inches): 10.00 Weight (Kilograms): 91.300 Vital Signs (Past 12Hrs) Vital Signs Past 12 Hours Date Time Temp Pulse Resp B/P (MAP) Pulse Ox O2 Delivery O2 Flow Rate FiO2 11/13/16 14:49 64 16 96 Nasal Cannula 4.0 11/13/16 14:29 64 18 96 Nasal Cannula 4.0 11/13/16 12:00 Nasal Cannula 4.0 11/13/16 11:27 36.6 93 20 107/63 (78) 93 Nasal Cannula 3.0 11/13/16 08:00 Nasal Cannula 4.0 11/13/16 07:29 36.6 69 22 113/64 (80) 91 Nasal Cannula 3.0 11/13/16 07:04 64 18 95 Nasal Cannula 4.0 11/13/16 04:00 93 Nasal Cannula 4.0 11/13/16 04:00 37.2 68 110/57 (74) 93 Nasal Cannula 4.0 Lab Results (24Hrs) Laboratory Tests (24 Hours) Test 11/12/16 18:55 11/12/16 23:00 11/13/16 05:20 White Blood Count 7.01 K/uL (4.8-10.8) 4.10 K/uL (4.8-10.8) L Red Blood Count 3.55 M/uL (4.7-6.1) L Hemoglobin 10.5 g/dL (14.0-18.0) L Hematocrit 33.3 % (42-52) L Mean Corpuscular Volume 93.8 fL (80-100) Mean Corpuscular Hemoglobin 29.6 pg (25-34) Mean Corpuscular Hemoglobin Concent 31.5 g/dl (32-36) L Platelet Count 216 K/uL (130-400) Mean Platelet Volume 8.3 fL (7.4-10.4) Neutrophils (%) (Auto) 78.0 % Lymphocytes (%) (Auto) 10.4 % Monocytes (%) (Auto) 10.3 % Eosinophils (%) (Auto) 0.9 % Basophils (%) (Auto) 0.1 % Neutrophils # (Auto) 5.47 K/uL (1.4-6.5) Lymphocytes # (Auto) 0.73 K/uL (1.2-3.4) L Monocytes # (Auto) 0.72 K/uL (0.11-0.59) H Eosinophils # (Auto) 0.06 K/uL (0-0.5) Basophils # (Auto) 0.01 K/uL (0-0.2) Total Creatine Kinase 19 U/L (39-308) L Lactic Acid Level 0.8 mmol/L (0.4-2.0) Micro Results Date/Time Source Procedure Growth Status 11/12/16 19:15 Blood Blood Culture Pending Received 11/12/16 18:55 Blood Blood Culture Pending Received Risk Factors for Resistance * Immunocompromised (oncology radiation therapy) Assessment & Plan Assessment 66 year old male admitted 11/12/16 via emergency room visit. Patient received empiric antibiotic therapy in the emergency department with levaquin 500mg, cefepime 1 gram, and a loading dose of vancomycin 2,200mg (24mg/kg). Patient has a recent diagnosis of lung cancer. Plan Patient admitted for treatment of possible LLL pneumonia. Vancomycin IV * Modified Loading dose: 2000 mg (22 mg/kg) today @ 16:00. Second load given since approximately 17 hours since loading dose provided in ED. * Maintenance dose: 1350 mg IV (15 mg/kg) every 8 hours to begin 11/14/16 @ 04: 00 * Goal trough level for pulmonary : 15 to 20 mcg/mL * Trough level ordered for 11/15/16 @03:30 Pharmacy will continue to follow and will adjust dose/frequency as necessary. Thank you.
[2016-11-13] MEDS ORDERED: VANCOMYCIN INJ 2,000 MG in SODIUM CHLORIDE 0.9% 500ML 500 ML IV ONE (16:00)
[2016-11-13] MEDS ORDERED: MoRPHine SULFATE 2 MG/ML CARP IV PRN (17:00)
[2016-11-13] MEDS ORDERED: LEVOFLOXACIN / D5W 750 MG in PREMIXED IN D5W 150 ML IV SCH (20:00)
[2016-11-13] MEDS: MoRPHine SULFATE 2 MG/ML CARP IV PRN (22:52)
[2016-11-14] VITALS (8 sets, daily range): BP systolic 99–110; BP diastolic 58–69; PULSE 59–91; TEMP 36.4–36.6; O2SAT 92–96
[2016-11-14] MEDS: CHECK FENTANYL PATCH PLACEMENT SCH ×4 (00:25→23:39)
[2016-11-14] MEDS: IPRATROPIUM BROMIDE NEB SOLN 0.02% 2.5 ML VIAL INH SCH ×4 (01:57→19:12)
[2016-11-14] MEDS: LEVALBUTEROL 1.25MG/0.5ML NEB INH SCH ×4 (01:57→19:12)
[2016-11-14] MEDS: METHYLPREDNISOLONE IV 60 MG in SYRINGE 0 ML IV SCH ×3 (02:56→14:08)
[2016-11-14] MEDS: VANCOMYCIN INJ 1,350 MG in SODIUM CHLORIDE 0.9% 250ML 250 ML IV SCH ×2 (03:08→12:14)
[2016-11-14 05:39] LABS: COMPLETE YES; HEMATOCRIT 28.8 % (42-52); IG% 0.4 %; LYMPH % 3.7 %; LYMPH ABS # 0.29 K/uL (1.2-3.4); MEAN CELL VOLUME 91.7 fL (80-100); MEAN CORPUSCULAR HEMOGLOBIN 29.3 pg (25-34); MEAN CORPUSCULAR HGB CONC 31.9 g/dl (32-36); MEAN PLATELET VOLUME 8.2 fL (7.4-10.4); MONO % 4.9 %; PLATELET COUNT 212 K/uL (130-400); RED BLOOD COUNT 3.14 M/uL (4.7-6.1)
[2016-11-14 05:51] LABS: INR 1.2 (0.9-1.1); PROTHROMBIN TIME (PATIENT) 12.6 SECONDS (9.0-12.0)
[2016-11-14 06:32] LABS: ALB/GLOB RATIO 0.5 (0.9-2); BUN/CREATININE RATIO 26.7 (10-20); CREATININE 0.58 mg/dl (0.60-1.40); POTASSIUM 3.3 mmol/L (3.5-5.1)
[2016-11-14] MEDS ORDERED: POTASSIUM CHLORIDE 10 MEQ TABCR PO ONE (09:00)
[2016-11-14] MEDS: FUROSEMIDE 20 MG TAB PO SCH (09:20)
[2016-11-14] MEDS: BUDESONIDE/FORMOTEROL FUMARATE 160/4.5 60 PUFFS/INHALER INH SCH ×2 (09:21→20:09)
[2016-11-14] MEDS: MAGNESIUM OXIDE 400 MG TAB PO SCH (09:21)
[2016-11-14] MEDS: ASPIRIN 81 MG ECTAB PO SCH (09:21)
[2016-11-14] MEDS: ENOXAPARIN 100 MG/1ML SYR SQ SCH ×2 (09:22→20:09)
[2016-11-14] MEDS: MoRPHine SULFATE 2 MG/ML CARP IV PRN ×3 (09:29→23:40)
--- NOTE | 2016-11-14 15:11 | Family Medicine Progress Note ---
Progress Note Date of Service Nov 14, 2016. Subjective Pt evaluation today including: conversation w/ patient, physical exam Pain: minimal PO Intake: improved Patient feeling much better today. Shortness of breath improved Appetite improved No fevers, night sweats or productive cough overnight Morphine has helped with pain of cancer Constitutional: No fever, No chills Respiratory: + cough (dry), + dyspnea on exertion, No shortness of breath Cardiovascular: No chest pain, No palpitations Abdomen: No pain, No nausea, No diarrhea, No constipation Skin: + rash, + itch, + new/changing skin lesions Medications Current Inpatient Medications Medications (Trade) Dose Ordered Sig/Abbi Route Start Time Stop Time Status Last Admin Dose Admin Acetaminophen (Tylenol Tab) 650 mg Q4H PRN PO 11/12/16 23:15 12/12/16 23:14 Ondansetron HCl (Zofran Inj) 4 mg Q6H PRN IV 11/12/16 23:15 12/12/16 23:14 Polyethylene (Miralax Powder Packet) 17 gm DAILY PRN PO 11/12/16 23:15 12/12/16 23:14 Aspirin (Ecotrin Tab) 81 mg DAILY PO 11/13/16 09:00 12/13/16 08:59 11/14/16 09:21 81 MG Budesonide/ Formoterol Fumarate (Symbicort 160/ 4.5 Inh) 2 puffs BID INH 11/13/16 09:00 12/13/16 08:59 11/14/16 09:21 2 PUFFS Enoxaparin Sodium (Lovenox Inj) 90 mg Q12 SQ 11/13/16 09:00 12/13/16 08:59 11/14/16 09:22 90 MG Furosemide (Lasix Tab) 20 mg DAILY PO 11/13/16 09:00 12/13/16 08:59 11/14/16 09:20 20 MG Magnesium Oxide (Mag-Ox Tab) 400 mg DAILY PO 11/13/16 09:00 12/13/16 08:59 11/14/16 09:21 400 MG Oxycodone HCl (Roxicodone Immediate Rel Tab) 10 mg Q6H PRN PO 11/12/16 23:15 11/26/16 23:14 11/13/16 07:32 10 MG Atenolol (Tenormin Tab) 25 mg DAILY PO 11/13/16 09:00 12/13/16 08:59 11/14/16 09:21 25 MG Ipratropium [place] (Atrovent 0.02% 0.5MG/2.5ML Neb) 0.5 mg Q6R INH 11/13/16 03:00 12/13/16 02:59 11/14/16 14:26 0.5 MG Levalbuterol (Xopenex 1.25MG/ 0.5ML Neb) 1.25 mg Q6R INH 11/13/16 03:00 12/13/16 02:59 11/14/16 14:26 1.25 MG Ipratropium [place] (Atrovent 0.02% 0.5MG/2.5ML Neb) 0.5 mg Q3H PRN INH 11/13/16 00:15 12/13/16 00:14 Levalbuterol (Xopenex 1.25MG/ 0.5ML Neb) 1.25 mg Q3H PRN INH 11/13/16 00:15 12/13/16 00:14 Fentanyl (Duragesic Patch) 75 mcg Q3D TD 11/15/16 05:30 11/29/16 05:29 Miscellaneous (Fentanyl Patch Remove & Waste) 1 ea Q3D N/A 11/15/16 05:29 12/15/16 05:28 Miscellaneous Information (Check Fentanyl Patch Placement) 1 ea QS N/A 11/13/16 08:00 12/13/16 07:59 11/14/16 09:23 1 EA Morphine Sulfate (MoRPHine SULFATE INJ) 2 mg Q4H PRN IV 11/13/16 21:30 11/27/16 21:29 11/14/16 14:08 2 MG Prednisone (PredniSONE TAB) 60 mg DAILY PO 11/15/16 08:00 12/15/16 07:59 Trimethoprim/ Sulfamethoxazole (Septra Ds 800/ 160MG Tab) 1 tab Q12 PO 11/14/16 21:00 11/21/16 20:59 Levofloxacin (Levaquin Tab) 750 mg DAILY@11 PO 11/14/16 16:00 11/21/16 15:59 Objective Vital Signs Date Time Temp Pulse Resp B/P (MAP) Pulse Ox O2 Delivery O2 Flow Rate FiO2 11/14/16 09:15 Nasal Cannula 3.0 11/14/16 08:09 36.5 59 20 110/58 (75) 94 Nasal Cannula 3.0 11/14/16 07:09 72 18 94 Nasal Cannula 3.0 11/14/16 01:58 72 18 95 Nasal Cannula 3.0 11/14/16 00:00 95 Nasal Cannula 3.0 11/14/16 00:00 36.6 60 20 103/66 (78) 95 2.0 11/13/16 20:00 95 Nasal Cannula 3.0 11/13/16 18:44 68 18 95 Nasal Cannula 3.0 11/13/16 17:57 Nasal Cannula 3.0 11/13/16 16:32 36.8 67 18 92 2.0 11/13/16 16:25 36.8 67 18 103/56 (72) 92 Nasal Cannula 2.0 11/13/16 16:00 Nasal Cannula 3.0 11/13/16 15:23 36.6 65 16 106/61 (76) 90 Nasal Cannula 3.0 Physical Exam Notes: General Appearance: WD/WN, no apparent distress ENT: hearing grossly normal, pharynx normal Neck: no JVD, no carotid bruits, + pertinent finding (submandibular lymphadenopathy) Respiratory/Chest: chest non-tender, no respiratory distress, RLL wheezing, no accessory muscle use, + crackles (LLL crackles improved since yesterday) Cardiovascular: regular rate, rhythm, + systolic murmur (3/6 systolic murmur radiating to carotids) Abdomen: normal bowel sounds, non tender, soft Extremities: non-tender, no calf tenderness, normal capillary refill 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: no motor/sensory deficits, normal mood/affect, oriented x 3 Laboratory Results Results Past 24 Hours Test 11/14/16 05:12 Range/Units White Blood Count 7.90 4.8-10.8 K/uL Red Blood Count 3.14 4.7-6.1 M/uL Hemoglobin 9.2 14.0-18.0 g/dL Hematocrit 28.8 42-52 % Mean Corpuscular Volume 91.7 80-100 fL Mean Corpuscular Hemoglobin 29.3 25-34 pg Mean Corpuscular Hemoglobin Concent 31.9 32-36 g/dl Platelet Count 212 130-400 K/uL Mean Platelet Volume 8.2 7.4-10.4 fL Neutrophils (%) (Auto) 91.0 % Lymphocytes (%) (Auto) 3.7 % Monocytes (%) (Auto) 4.9 % Eosinophils (%) (Auto) 0.0 % Basophils (%) (Auto) 0.0 % Neutrophils # (Auto) 7.19 1.4-6.5 K/uL Lymphocytes # (Auto) 0.29 1.2-3.4 K/uL Monocytes # (Auto) 0.39 0.11-0.59 K/uL Eosinophils # (Auto) 0.00 0-0.5 K/uL Basophils # (Auto) 0.00 0-0.2 K/uL RDW Standard Deviation 44.9 36.4-46.3 fL RDW Coefficient of Variation 13.5 11.5-14.5 % Immature Granulocyte % (Auto) 0.4 % Immature Granulocyte # (Auto) 0.03 0.00-0.02 K/uL Prothrombin Time 12.6 9.0-12.0 SECONDS Prothromb Time International Ratio 1.2 0.9-1.1 Sodium Level 141 136-145 mmol/L Potassium Level 3.3 3.5-5.1 mmol/L Chloride Level 102 98-107 mmol/L Carbon Dioxide Level 35 21-32 mmol/L Anion Gap 4.0 3-11 mmol/L Blood Urea Nitrogen 16 7-18 mg/dl Creatinine 0.58 0.60-1.40 mg/dl Est Creatinine Clear Calc Drug Dose 142.3 ml/min Estimated GFR () 123.1 Estimated GFR (Non- 106.2 BUN/Creatinine Ratio 26.7 10-20 Random Glucose 130 70-99 mg/dl Calcium Level 9.0 8.5-10.1 mg/dl Total Bilirubin 0.2 0.2-1 mg/dl Aspartate Amino Transf (AST/SGOT) 14 15-37 U/L Alanine Aminotransferase (ALT/SGPT) 14 12-78 U/L Alkaline Phosphatase 98 45-117 U/L Total Protein 6.6 6.4-8.2 gm/dl Albumin 2.1 3.4-5.0 gm/dl Globulin 4.5 2.5-4.0 gm/dl Albumin/Globulin Ratio 0.5 0.9-2 Microbiology Results 11/14/16 Gram Stain, Received Pending 11/14/16 Sputum Culture, Received Pending Assessment and Plan 66-year-old male with past medical history of unknown primary adenocarcinoma with pulmonary metastasis, COPD, coronary artery disease, bilateral pulmonary emboli presented to the ER with complaints of chest congestion with started about a day ago. He also complained of a cough with yellowish sputum and had fevers, chills and sweats at night. Sepsis likely secondary to pneumonia: - Chest x-ray with LLL consolidation and increase in size of pulm nodules - Switch to levaquin, and bactrim PO Respiratory distress with underlying history of COPD: - Likely secondary to pneumonia - Continue oxygen per protocol - decrease oxygen to 40 mg prednisone q12 PO - Xopenex/Atrovent every 6 hours, every 3 hours when necessary - Addition of incentive spirometry and sputum cultures ordered - Continue home inhalers - Was scheduled for bronchoscopy next week for biopsy of suspected lesion in lungs - Will defer bronchoscopy until patients is feeling better and hemodynamically stable Pulmonary metastases, pathological rib fractures suspected to be secondary to metastases - Unknown primary - Follows with Dr. Biggs - Seen by oncology this morning and will f/u patient as outpatient when he is better - Undergoes radiation therapy for spine metastases- consult radiation oncology- will get radiation today History of pulmonary embolism - Continue Lovenox DVT prophylaxis: Lovenox Full code Disposition: Resident Physician Supervision Note: I interviewed and examined the patient. Discussed with Dr. Denney and agree with findings and plan as documented in the note. Any exceptions or clarifications are listed here: None Documented By: Santiago Marquis feeling better breathing better present wonders if he had the ssame pneumonia for the last month explained that pneumonias tend to almost always be very acute illnesses that more likely suppressed immune system and poor lungs are why he's having repeated pneumonias all other ROS otherwise negative except for as above vitals noted nad breathing unlabored no pallor or icterus HAP w acute on chronic hypoxic respiratory failure on admission - improving. transition to PO abx, hopefully home tomorrow Continued [facility] stay due to: multiple IV medications needed
[2016-11-14] MEDS: LEVOFLOXACIN 750 MG TAB PO SCH (17:06)
[2016-11-14] MEDS: SULFAMETHOXAZOLE/TRIMETHOPRIM DS 800/160MG TAB PO SCH (20:08)
[2016-11-15] MEDS: IPRATROPIUM BROMIDE NEB SOLN 0.02% 2.5 ML VIAL INH SCH ×3 (01:46→14:38)
[2016-11-15] MEDS: LEVALBUTEROL 1.25MG/0.5ML NEB INH SCH ×3 (01:47→14:38)
[2016-11-15] MEDS ORDERED: VANCOMYCIN TROUGH SCH (03:30)
[2016-11-15] MEDS ORDERED: FENTANYL PATCH REMOVE & WASTE SCH (05:29)
[2016-11-15] MEDS ORDERED: FENTANYL 75 MCG/HR TDSY TD SCH (05:30)
[2016-11-15 05:59] LABS: COMPLETE YES; HEMATOCRIT 30.4 % (42-52); IG% 0.5 %; LYMPH ABS # 0.57 K/uL (1.2-3.4); MEAN CELL VOLUME 93.5 fL (80-100); MEAN CORPUSCULAR HEMOGLOBIN 29.2 pg (25-34); MEAN CORPUSCULAR HGB CONC 31.3 g/dl (32-36); MEAN PLATELET VOLUME 8.5 fL (7.4-10.4); MONO % 5.4 %; NEUT % 88.1 %; PLATELET COUNT 201 K/uL (130-400); RED BLOOD COUNT 3.25 M/uL (4.7-6.1); WHITE BLOOD COUNT 9.55 K/uL (4.8-10.8)
[2016-11-15 06:06] LABS: INR 1.2 (0.9-1.1); PROTHROMBIN TIME (PATIENT) 12.5 SECONDS (9.0-12.0)
[2016-11-15] MEDS: MoRPHine SULFATE 2 MG/ML CARP IV PRN (06:37)
[2016-11-15 06:38] LABS: BUN/CREATININE RATIO 38.2 (10-20); CALCIUM 9.4 mg/dl (8.5-10.1); CREATININE 0.55 mg/dl (0.60-1.40)
[2016-11-15 06:41] LABS: ALB/GLOB RATIO 0.5 (0.9-2)
[2016-11-15 07:24] VITALS: PULSE 56; O2SAT 98
[2016-11-15 07:35] VITALS: BP 120/74; PULSE 58; TEMP 36.7; O2SAT 94
[2016-11-15] MEDS: SULFAMETHOXAZOLE/TRIMETHOPRIM DS 800/160MG TAB PO SCH (09:11)
[2016-11-15] MEDS: FUROSEMIDE 20 MG TAB PO SCH (09:11)
[2016-11-15] MEDS: BUDESONIDE/FORMOTEROL FUMARATE 160/4.5 60 PUFFS/INHALER INH SCH (09:12)
[2016-11-15] MEDS: ENOXAPARIN 100 MG/1ML SYR SQ SCH (09:12)
[2016-11-15] MEDS: MAGNESIUM OXIDE 400 MG TAB PO SCH (09:12)
[2016-11-15] MEDS: ASPIRIN 81 MG ECTAB PO SCH (09:12)
[2016-11-15] MEDS: CHECK FENTANYL PATCH PLACEMENT SCH ×2 (09:13→16:04)
[2016-11-15] MEDS: LEVOFLOXACIN 750 MG TAB PO SCH (10:59)
[2016-11-15] MEDS: OXYCODONE/ACETAMINOPHEN 10/325MG TAB PO PRN ×2 (10:59→16:03)
[2016-11-15] MEDS ORDERED: FENTANYL 25 MCG/HR TDSY TD SCH (11:00)
--- NOTE | 2016-11-15 11:24 | Discharge Instructions ---
Discharge Instructions Date of Service Nov 15, 2016. Admission Reason for Admission: Pneumonia, Sepsis Discharge Discharge Diagnosis / Problem: Pneumonia Discharge Goals Goal(s): Improve disease control Activity Recommendations Activity Limitations: per Instructions/Follow-up section . Instructions / Follow-Up Instructions / Follow-Up You were diagnosed with a pneumonia while you were in the hospital We will be sending you home with antibiotics and we will be making changes to your pain medications. Please see your PCP on Friday If you have any worsening shortness of breath, chest pain or fevers then please come back to the emergency department Current Hospital Diet Patient's current hospital diet: Regular Diet Discharge Diet Recommended Diet: Regular Diet Pending Studies Studies pending at discharge: no Medical Emergencies . Who to Call and When: Medical Emergencies: If at any time you feel your situation is an emergency, please call 911 immediately. . Non-Emergent Contact Non-Emergency issues call your: Primary Care Provider, Oncologist . . "Provider Documentation" section prepared by Domo Denney. . VTE Core Measure Inpt VTE Proph given/why not?: Enoxaparin (Lovenox)SQ
[2016-11-15] MEDS ORDERED: LVQ750 PO (13:28)
[2016-11-15] MEDS ORDERED: SULF-183 PO (13:28)
[2016-11-15] MEDS ORDERED: DRGTP100 TD (13:28)
[2016-11-15] MEDS ORDERED: PRD20 PO (13:30)
[2016-11-15 14:28] VITALS: BP 120/74; TEMP 36.7; O2SAT 94
[2016-11-15 14:40] VITALS: PULSE 65; O2SAT 98
--- NOTE | 2016-11-15 16:26 | Pulmonology Progress Note ---
Pulmonary Progress Note Date of Service Nov 15, 2016. Attending Dr. Mccarty Subjective Patient seen and examined today. States shes feeling much better. He is about to go home. She denies any further episodes of fevers, chills, or shortness of breath. Objective Vital signs: Afebrile, blood pressure 124/74, pulse 65, respiratory rate 18, and pulse ox 98% on 3 L nasal cannula. General: Awake, alert and oriented 3, no acute respiratory distress, speaking in full sentences. CVS: S1,S2, regular rate and rhythm Lungs: Good air entry bilaterally, bibasilar crackles Abdomen: Soft, nontender, bowel sounds positive Extremities: No edema bilaterally, no cyanosis, no clubbing Laboratory data and most recent imaging was reviewed. Assessment & Plan Acute on chronic hypoxemic respiratory failure Lung cancer COPD Pneumonia Bilateral pulmonary embolism Continue with oxygen to maintain SaO2 between 88-92%. Continue with prednisone taper. Continue with antibiotics to complete a total of 7 days. Continue with continue with inhaled bronchodilator and inhaled corticosteroids. Patient can follow up as outpatient pulmonology for repeat imaging in 4-6 weeks as well as bronchoscopy for more tissue sampling. Continue with full dose anticoagulation. Appreciate the consult. Data Medications: Current Inpatient Medications Medications (Trade) Dose Ordered Sig/Abbi Route Start Time Stop Time Status Last Admin Dose Admin Acetaminophen (Tylenol Tab) 650 mg Q4H PRN PO 11/12/16 23:15 12/12/16 23:14 Ondansetron HCl (Zofran Inj) 4 mg Q6H PRN IV 11/12/16 23:15 12/12/16 23:14 Polyethylene (Miralax Powder Packet) 17 gm DAILY PRN PO 11/12/16 23:15 12/12/16 23:14 Aspirin (Ecotrin Tab) 81 mg DAILY PO 11/13/16 09:00 12/13/16 08:59 11/15/16 09:12 81 MG Budesonide/ Formoterol Fumarate (Symbicort 160/ 4.5 Inh) 2 puffs BID INH 11/13/16 09:00 12/13/16 08:59 11/15/16 09:12 2 PUFFS Enoxaparin Sodium (Lovenox Inj) 90 mg Q12 SQ 11/13/16 09:00 12/13/16 08:59 11/15/16 09:12 90 MG Furosemide (Lasix Tab) 20 mg DAILY PO 11/13/16 09:00 12/13/16 08:59 11/15/16 09:11 20 MG Magnesium Oxide (Mag-Ox Tab) 400 mg DAILY PO 11/13/16 09:00 12/13/16 08:59 11/15/16 09:12 400 MG Atenolol (Tenormin Tab) 25 mg DAILY PO 11/13/16 09:00 12/13/16 08:59 11/15/16 09:12 25 MG Ipratropium [place] (Atrovent 0.02% 0.5MG/2.5ML Neb) 0.5 mg Q6R INH 11/13/16 03:00 12/13/16 02:59 11/15/16 14:38 0.5 MG Levalbuterol (Xopenex 1.25MG/ 0.5ML Neb) 1.25 mg Q6R INH 11/13/16 03:00 12/13/16 02:59 11/15/16 14:38 1.25 MG Ipratropium [place] (Atrovent 0.02% 0.5MG/2.5ML Neb) 0.5 mg Q3H PRN INH 11/13/16 00:15 12/13/16 00:14 Levalbuterol (Xopenex 1.25MG/ 0.5ML Neb) 1.25 mg Q3H PRN INH 11/13/16 00:15 12/13/16 00:14 Fentanyl (Duragesic Patch) 75 mcg Q3D TD 11/15/16 05:30 11/18/16 02:00 11/15/16 05:59 75 MCG Miscellaneous (Fentanyl Patch Remove & Waste) 1 ea Q3D N/A 11/15/16 05:29 12/15/16 05:28 11/15/16 05:58 1 EA Miscellaneous Information (Check Fentanyl Patch Placement) 1 ea QS N/A 11/13/16 08:00 12/13/16 07:59 11/15/16 16:04 1 EA Morphine Sulfate (MoRPHine SULFATE INJ) 2 mg Q4H PRN IV 11/13/16 21:30 11/27/16 21:29 11/15/16 06:37 2 MG Prednisone (PredniSONE TAB) 60 mg DAILY PO 11/15/16 08:00 12/15/16 07:59 11/15/16 09:11 60 MG Trimethoprim/ Sulfamethoxazole (Septra Ds 800/ 160MG Tab) 1 tab Q12 PO 11/14/16 21:00 11/21/16 20:59 11/15/16 09:11 1 TAB Levofloxacin (Levaquin Tab) 750 mg DAILY@11 PO 11/14/16 16:00 11/21/16 15:59 11/15/16 10:59 750 MG Fentanyl (Duragesic Patch) 100 mcg Q3D@0530 TD 11/18/16 05:30 12/02/16 05:29 Oxycodone/ Acetaminophen (Percocet 10-325MG Tab) 1 tab Q4H PRN PO 11/15/16 10:45 11/29/16 10:44 11/15/16 16:03 1 TAB Fentanyl (Duragesic Patch) 25 mcg Q3D@1100 TD 11/15/16 11:00 11/18/16 02:00 11/15/16 10:54 25 MCG I & O: 24-Hour Column 11/16/16 08:00 Intake Total 720 ml Output Total 450 ml Balance 270 ml Vital Signs: Date Time Temp Pulse Resp B/P (MAP) Pulse Ox O2 Delivery O2 Flow Rate FiO2 11/15/16 14:40 65 18 98 Nasal Cannula 3.0 11/15/16 14:28 36.7 58 18 94 Nasal Cannula 11/15/16 09:00 Nasal Cannula 3.0 11/15/16 07:35 36.7 58 18 120/74 (89) 94 3.0 11/15/16 07:24 56 18 98 Nasal Cannula 3.0 11/15/16 00:00 Nasal Cannula 3.0 11/14/16 22:38 36.6 90 16 110/69 (83) 93 Nasal Cannula 1.0 11/14/16 19:12 91 18 96 Nasal Cannula 3.0 11/14/16 16:27 36.4 88 20 99/62 (74) 92 3.0 Laboratory Results: Last 24 Hours Test 11/15/16 05:30 White Blood Count 9.55 K/uL Red Blood Count 3.25 M/uL Hemoglobin 9.5 g/dL Hematocrit 30.4 % Mean Corpuscular Volume 93.5 fL Mean Corpuscular Hemoglobin 29.2 pg Mean Corpuscular Hemoglobin Concent 31.3 g/dl Platelet Count 201 K/uL Mean Platelet Volume 8.5 fL Neutrophils (%) (Auto) 88.1 % Lymphocytes (%) (Auto) 6.0 % Monocytes (%) (Auto) 5.4 % Eosinophils (%) (Auto) 0.0 % Basophils (%) (Auto) 0.0 % Neutrophils # (Auto) 8.41 K/uL Lymphocytes # (Auto) 0.57 K/uL Monocytes # (Auto) 0.52 K/uL Eosinophils # (Auto) 0.00 K/uL Basophils # (Auto) 0.00 K/uL RDW Standard Deviation 47.5 fL RDW Coefficient of Variation 13.9 % Immature Granulocyte % (Auto) 0.5 % Immature Granulocyte # (Auto) 0.05 K/uL Prothrombin Time 12.5 SECONDS Prothromb Time International Ratio 1.2 Sodium Level 140 mmol/L Potassium Level 4.0 mmol/L Chloride Level 101 mmol/L Carbon Dioxide Level 33 mmol/L Anion Gap 6.0 mmol/L Blood Urea Nitrogen 21 mg/dl Creatinine 0.55 mg/dl Est Creatinine Clear Calc Drug Dose 150.1 ml/min Estimated GFR () 125.9 Estimated GFR (Non- 108.6 BUN/Creatinine Ratio 38.2 Random Glucose 108 mg/dl Calcium Level 9.4 mg/dl Total Bilirubin 0.2 mg/dl Aspartate Amino Transf (AST/SGOT) 17 U/L Alanine Aminotransferase (ALT/SGPT) 16 U/L Alkaline Phosphatase 95 U/L Total Protein 6.4 gm/dl Albumin 2.2 gm/dl Globulin 4.2 gm/dl Albumin/Globulin Ratio 0.5
--- NOTE | 2016-11-15 17:19 | Discharge Summary ---
Discharge Summary Date of Service Nov 15, 2016. (Domo Denney MD) Discharge Summary Admission Date: Nov 12, 2016 at 23:24 Discharge Date: Nov 15, 2016 Discharge Disposition: Home Principal Diagnosis: Hospital Acquired Pneumonia Immunizations: Have You Had Influenza Vaccine: No History of Tetanus Vaccine?: No History of Pneumococcal: No History of Hepatitis B Vaccine: No Consultations: Pulm Haem Oncology Radiation Oncology (Domo Denney MD) Medication Reconciliation New Medications: Fentanyl (Fentanyl) 100 Mcg Tdsy 100 MCG TD Q3D@0530 for 30 Days, #30 Levofloxacin (Levofloxacin) 750 Mg Tab 750 MG PO DAILY@11 for 5 Days, #5 TAB Prednisone (Prednisone) 20 Mg Tab 20 MG PO DIRECTED, #12 TAB take 3 pills for day 1 and 2 take 2 pills for day 3 an 4 take 1 pill for day 5 and 6 Sulfamethoxazole-Trimethoprim (Smz-Tmp Ds) 1 Tab Tab 1 TAB PO Q12 for 5 Days, #11 TAB Continued Medications: Albuterol Sulfate (Proventil Hfa) 108 Mcg/Act Aer 2 PUFFS INH QID PRN for Wheezing Aspirin (Aspirin Ec) 81 Mg Tab 81 MG PO DAILY Atenolol (Tenormin) 25 Mg Tab Unknown Dose PO DAILY, TAB Budesonide/Formoterol Fumarate (Symbicort 160/4.5 Inhaler ) Aero 2 PUFFS INH BID, INHALER Enoxaparin (Enoxaparin Sodium) 100 Mg/Ml Inj 90 MG SQ Q12 for 30 Days, #60 PEN Fentanyl (Fentanyl) 75 Mcg/Hr Dis 75 MCG TD Q72H Furosemide (Lasix) 20 Mg Tab Unknown Dose PO DAILY, TAB Ipratropium-Albuterol (Combivent Respimat) 1 Aer Aer 1 PUFFS INH QID, INH Magnesium Oxide (Mag-Ox) 400 Mg Tab 400 MG PO DAILY, TAB Oxycodone Ir (Roxicodone Ir) 5 Mg Tab 10 MG PO Q6H PRN for Pain, TAB Discharge Exam Patient having some pain across his ribs. Otherwise feeling much better. Discussed that he was planning on increasing the dose of his fentanyl patch to 100mcg as outpatient Review of Systems: Constitutional: No fever, No chills, No sweats Respiratory: + cough (dry), No sputum, No wheezing, No shortness of breath Cardiovascular: No chest pain Abdomen: No pain, No nausea, No vomiting, No diarrhea, No constipation Physical Exam: General Appearance: WD/WN, no apparent distress Respiratory/Chest: no respiratory distress, no accessory muscle use, + crackles (left lower lobe), + wheezing (bilateral wheeze) Cardiovascular: no edema, no murmur, normal peripheral pulses, + irregularly irregular Abdomen / GI: normal bowel sounds, non tender, soft (Domo Denney MD) Hospital Course Mr. 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 He was recently diagnosed s/p FNA of right 11th rib on 10/15/2016 s/p recent hospitalization after a fall. Patient was scheduled for radiation treatment however he says that he started having labored breathing, had his sats in the 70's and a fever of 102. He then came to the hospital for further evaluation. In the hospital he said he had been having fevers and chills with cough and yellow sputum production On further questioning, he has had generalized fatigue, subjective fever and chills associated with infrequent cough and yellowish productive sputum. He denies any chest pain or palpitations. He states that he has chronic anterior rib pain on the right and left back pain. Initial VS were significant for T 38.3, P 110, RR 20, SaO2 75% on 3L NC which improved to 92-94% on 4L. CT chest was done that showed increased in sized of pulmonary metastases since prior exam on 11/08/2016. Left linear based opacities suggestive of atelectasis, and several pleural based metastates were seen. He was admitted to the medical floor for Sepsis secondary to pneumonia. He was started on vancomycin, cefipime and Levaquin for empiric antibiotic coverage. Pulmonology, Haem Onc and Radiation Oncology were consulted on the patient. While on the inpatient service he was started on methylprednisolone IV, pulmonary toilet and on 11/14 he was transitioned to PO antibiotics of levaquin and bactrim. During his hospital stay he continued his radiation treatments. On 11/15 he was hemodynamically stable for discharge and was discharged on PO levaquin and bactrim for 5 more days to finish and 7 day course and he was also discharged on a 6 day taper of PO steroids. He plans to have his bronchoscopy on Friday therefore we stopped his aspirin and lovenox until after his procedure. He was also having worsening rib pain while in the hospital so we therefore increased his fentanyl dose to 100mcg. He is to follow with his PCP next week for further management Total Time Spent: Less than 30 minutes This includes examination of the patient, discharge planning, medication reconciliation, and communication with other providers. (Domo Denney MD) Resident Physician Supervision Note: I interviewed and examined the patient. Discussed with Dr. Denney and agree with findings and plan as documented in the note. Any exceptions or clarifications are listed here: None Documented By: Santiago Marquis feeling better pain better controlled wants to go home. breathing better. all other ROS otherwise negative except for as above vitals noted nad breathing unlabored no pallor or icterus healthcare associated pneumonia w acute on chronic hypoxia -- improving. stable for home metastatic malignancy w uncontrolled pain - increase fentanyl, add APAP to oxycodone - PCP will then transition Rx to percocet (teacher education director coordinated with [facility]) safe/stable for home Total Time Spent: Less than 30 minutes (Santiago Marquis, D.Lester.) Discharge Instructions Please refer to the electronic Patient Visit Report (Discharge Instructions) for additional information. (Domo Denney MD) Additional Copies To Ann Olivas M.D.
[2016-11-18] MEDS ORDERED: FENTANYL 100 MCG/HR TDSY TD SCH (05:30)
[2016-11-19] MEDS ORDERED: IPRA1AER2 INH (06:55)
== END 2016-11-15 16:45 | disposition home or self-care (01) | DRG 871 ==
LOC: C.EDB 18:12 → C.2T 23:24 → ENRESERV 11-13 00:11 → CANRESERV 11-13 15:04 → ENRESERV 11-13 15:25 → C.4E 11-13 16:23
PROVIDERS: ADMIT Family Medicine; ATTEND Family Medicine
DX: A41.9 Sepsis, unspecified organism (principal); J18.9 Pneumonia, unspecified organism; J96.21 Acute and chronic respiratory failure with hypoxia; C78.00 Secondary malignant neoplasm of unspecified lung; C79.51 Secondary malignant neoplasm of bone; M84.48XA Pathological fracture, other site, initial encounter for fracture; C80.1 Malignant (primary) neoplasm, unspecified; G89.3 Neoplasm related pain (acute) (chronic); J44.9 Chronic obstructive pulmonary disease, unspecified; I25.10 Atherosclerotic heart disease of native coronary artery without angina pectoris; Z79.82 Long term (current) use of aspirin; Z79.899 Other long term (current) drug therapy; Z86.711 Personal history of pulmonary embolism; Z87.891 Personal history of nicotine dependence; Z92.3 Personal history of irradiation; X58.XXXA Exposure to other specified factors, initial encounter

== ENCOUNTER → 2016-11-19 | Day surgery (SDC) | payer OTHER ==
[2016-11-19] VITALS (7 sets, daily range): BP systolic 98–114; BP diastolic 34–56; PULSE 66–73; TEMP 36.6–37; O2SAT 93–95; Ht 177.8 cm; Wt 87.7 kg
[~2016-11-19] VITALS: Ht 177.8 cm; Wt 87.7 kg
[~2016-11-19] MED LIST changes: +ACET-1311 PO; +ACETAMINOPHEN 325 MG TAB PO PRN; +DRGTP100 TD; +ENOX30IN4 SQ; +ENOX80IN SQ; +FENT100D10 TOP; +FLM4 PO; +KFL500 PO; +LVQ750 PO; +MRP15 PO; +NF656 TOP; +NURSING VERBAL MED ORDER ONE; +ONDA8TAB6 PO; +OXYCODONE HCL 10 MG TABCR (OXYCONTIN) PO ONE; +PRD20 PO; +PRS5 PO; +SULF-183 PO
[2016-11-19 09:47] LABS: INR 1.1 (0.9-1.1); PARTIAL THROMBOPLASTIN RATIO 1.2; PROTHROMBIN TIME (PATIENT) 11.8 SECONDS (9.0-12.0)
--- NOTE | 2016-11-19 11:15 | History & Physical Bridge Note ---
H&P Re-Evaluation Bridge Note: I have examined the patient, reviewed the History & Physical and in the interval since the performance of the History & Physical I have noted the following changes of clinical significance: No changes noted Patient was examined and recent history was reviewed. Patient was hospitalized from 11/12/2016 to 11/15/2016 and was seen by Dr. Yane Mccarty from Pulmonary Medicine. Patient was felt to be septic and presented hypotensive in moderate respiratory distress. The decision was made to stabilize patient and if additional tissue for genomic markers were needed then a CT-guided needle biopsy of the most anterior sternal lytic lesion was advisable. That procedure was deferred and patient arrived today schedule for fiberoptic bronchoscopy. He was hypotensive with a systolic blood pressure in the 90s and in mild respiratory distress at rest. I determined that the risk of conscious sedation and for patient to undergo fiberoptic bronchoscopy with transbronchial biopsy with significant and I arranged for patient to undergo CT-guided needle biopsy/ core biopsy of the sternal lesion with Radiology. Patient's Lovenox has been on hold since yesterday morning and has normal coagulation profile. He will be recovered in same-day surgery following the procedure and a palliative medicine consult with Mary Skinner has been placed. Patient's pain is not under good control despite the use of 100 mcg daily of fentanyl supplemented with OxyContin for breakthrough pain. There is no break through pain according to the patient as he has pain across his sternum continually. Bronchoscopy has been canceled. Test 11/19/16 09:23 Prothrombin Time 11.8 Prothrombin Time INR 1.1 PTT 31.7 Partial Thromboplastin Ratio 1.2
--- NOTE | 2016-11-19 13:07 | Discharge Instructions ---
Discharge Instructions Procedure Procedure Date: Nov 19, 2016. Reason for visit: Pe, Lung Ca, Copd. Discharge Discharge Date: Nov 19, 2016. Discharge Diagnosis: Successful lung biopsy of right anterior lung nodule. Medications Restart Stopped Medication(s): Resume home meds Instructions Activity Recommendations: No limitations Return to School/Work: no limitations Recommended Home Diet: No Limitations Provider Instructions: CT guided needle biopsy Performed of [right anterior subcostal pulmonary ] lesion with [ 18G core] needle x 2 passes. Allergies Coded Allergies: No Known Allergies (Verified , 11/19/16) Kevin Dealrosa Recommendations: Call your doctor if: * Temperature above 101 degrees * Pain not relieved by pain medicine ordered * There is increased drainage or redness from any incision * You have any unanswered questions or concerns. Your Doctors Instructions noted above were prepared by provider Db Sibley. Patient Signature Section: Patient Instructions Signature Page Kevin Hagan Patient (or Guardian) Signature/Date: I have read and understand the instructions given to me by my caregivers. Caregiver/RN/Doctor Signature/Date: The above-named patient and/or guardian has received patient instructions on this date. + Original Patient Signature Page (only) stays with chart. Please make copy for patient.
--- NOTE | 2016-11-19 13:14 | DIAGNOSTIC IMAGING REPORT ---
GUIDANCE NEEDLE PLACEMENT CLINICAL HISTORY: 66 years-old Male presenting with lung nodule, need for additional tissue for treatment planning. TECHNIQUE: Multidetector CT guided biopsy of the chest was performed without the use of intravenous contrast. IV contrast: None. COMPARISON: CT from 10/15/2016. CT DOSE: The estimated cumulative dose is 779.09 mGycm. FINDINGS: [facility] topogram: Right anterior chest wall marker in place. PROCEDURE: The risks, benefits, and alternatives were discussed and informed consent was obtained. Patient was positioned supine on the CT table. The right anterior chest wall was prepped and draped in the usual aseptic fashion. [place] Protocol steps were performed to confirm the patient's identity, planned procedure(s), and all personnel in the room. After local anesthesia was administered with Lidocaine 1%, the right anterior subcostal pulmonary nodule was targeted using an 18-gauge core biopsy needle with a 1 cm throw. 2 passes were made. A touch prep was performed to confirm adequate sample. The core biopsy needle was removed and postprocedural imaging demonstrated no pneumothorax. No new pulmonary opacity to suggest hemorrhage. The patient tolerated the procedure well and was maintained on 3 to 4 L of oxygen by nasal cannula throughout. There were no immediate complications. IMPRESSION: Successful CT-guided right lung biopsy. Electronically signed by: Db Sibley M.D. 11/19/2016 1:13 PM Dictated Date/Time: 11/19/2016 1:08 PM
--- NOTE | 2016-11-19 13:58 | Palliative Care Consultation ---
Consultation Date of Consultation: Nov 19, 2016. Requesting Physician: Dr. 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 Patient recently admitted in October 2016 for right rib pain/ fractures after a fall he sustained in August, which is when his widespread metastatic disease was discovered. Today, the bronchoscopy could not be performed due to risk of procedure and patient's increased pain. He is currently undergoing XRT. Tissue biopsy is needed to confirm cancer diagnosis in order to plan for systemic therapy, so patient went for needle biopsy today in radiology department. Palliative care consulted to help with pain management. I met with the patient and his in [place] [facility] in [facility]. Patient awake alert and oriented x4. He currently c/o pain 6-7/10 in his right chest wall at the axillary line at the 4-5th intercostal space, radiating the whole way across his chest and to his back right under left scapula. He describes the pain as constant and sharp. The pain gets so severe when he is moving or trying to walk that he becomes short of breath and is unable to tolerate much activity. He has a 100mcg/hr fentanyl patch and takes oxycodone IR 10mg q6h PRN- takes it regularly. Patient said the pain did improve slightly after the increase in fentanyl patch, and briefly improved from 7 to 5 after radiation treatments. In the last couple weeks, though, pain has increased again. Patient states, "The oxy doesn't even touch the pain." He stated when he was here in the beginning of November that morphine worked quite well for him. I looked back in old record and saw that patient received 2mg IV morphine x4 doses in 24 hour period and his pain was well controlled. I will recommend switching to PO morphine. See plan below. Past Medical/Surgical History Medical History: CAD COPD PE, bilateral Metastatic carcinoma to liver, lungs, spine and ribs Social History Smoking Status: Former Smoker History of Alcohol Use: Yes (moderate a couple a week) Drug Use: none Marital Status: Housing Status: lives with significant other Occupation Status: employed Review of Systems Constitutional: + problem reported (activity intolverance due to pain and SOB) , No weakness ENT: No trouble swallowing Respiratory: + dyspnea on exertion, No cough, No wheezing, No dyspnea at rest Cardiac: + edema (BLE), No chest pain Abdomen: No pain, No nausea, No vomiting Psychiatric: No depression symptoms, No anxiety Allergies Coded Allergies: No Known Allergies (Verified , 11/19/16) Medications Current Inpatient Medications Medications (Trade) Dose Ordered Sig/Abbi Route Start Time Stop Time Status Last Admin Dose Admin Acetaminophen (Tylenol Tab) 1,000 mg Q6H PRN PO 11/19/16 13:15 12/19/16 13:14 UNV Physical Exam Date Time Temp Pulse Resp B/P (MAP) Pulse Ox O2 Delivery O2 Flow Rate FiO2 11/19/16 13:04 66 20 114/45 93 Nasal Cannula 3 11/19/16 12:21 37 68 20 98/56 93 Nasal Cannula 3 11/19/16 08:09 36.6 71 22 99/34 Nasal Cannula 3.0 11/19/16 08:03 Room Air 11/19/16 06:56 36.6 71 22 99/34 (55) 95 Nasal Cannula 3 General Appearance: WD/WN, no apparent distress ENT: hearing grossly normal Neck: supple, no JVD Respiratory: no respiratory distress, no accessory muscle use, + decreased breath sounds (bilateral bases), + pertinent finding (right chest wall tender) Cardiovascular: regular rate, rhythm, + normal peripheral pulses, + pertinent finding (trace BLE extremity pitting edema) Abdomen: normal bowel sounds, non tender, soft 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: alert, normal mood/affect, oriented x 3 Skin: normal color Laboratory Results Last 24 Hours Test 11/19/16 09:23 Prothrombin Time 11.8 SECONDS Prothromb Time International Ratio 1.1 Activated Partial Thromboplast Time 31.7 SECONDS Partial Thromboplastin Ratio 1.2 Assessment & Plan Problem list: Pain- right lateral chest wall, radiating to left side and to left posterior rib cage. Dyspnea on exertion Metastatic adenocarcinoma, unknown primary, with mets to ribs, spine and lungs. S/p needle biopsy today 11/19/2016 Palliative care recommendations: -Discontinue Oxycodone IR 10mg Q6. -Start morphine extended release 15mg PO BID scheduled. -Encouraged patient to continue to use Lidoderm patches as he reported they do help. We talked about ways to get them to stick better. -Continue fentanyl 100mcg/hr TD Q72h. Can increased to 125mcg if needed. -Patient denies any other symptoms at this time. Should be on bowel regimen. Thank you for allowing me to participate in the care of this patient. Please contact me with any further palliative care needs.
--- NOTE | 2016-11-19 14:13 | DIAGNOSTIC IMAGING REPORT ---
INSPIRATION AND EXPIRATION CHEST RADIOGRAPHS CLINICAL HISTORY: Lung cancer post biopsy. COMPARISON STUDY: Chest radiograph November 12, 2016. FINDINGS: No pneumothorax is identified. Asymmetric right hilar fullness is due to the mass/adenopathy shown on prior exam. Innumerable pulmonary nodules are noted. Cardiomediastinal silhouette is stable. IMPRESSION: 1. No pneumothorax following biopsy. 2. Redemonstration of the right hilar mass/adenopathy and innumerable pulmonary nodules. Electronically signed by: Thom Casanova M.D. 11/19/2016 2:11 PM Dictated Date/Time: 11/19/2016 2:08 PM
== END | disposition home or self-care (01) ==
LOC: C.ACU 06:21
PROVIDERS: ATTEND Internal Medicine Pulmonary Disease
DX: C80.1 Malignant (primary) neoplasm, unspecified (principal); C78.7 Secondary malignant neoplasm of liver and intrahepatic bile duct; C78.00 Secondary malignant neoplasm of unspecified lung; C78.01 Secondary malignant neoplasm of right lung; C78.02 Secondary malignant neoplasm of left lung; C79.51 Secondary malignant neoplasm of bone; Z87.891 Personal history of nicotine dependence; I25.10 Atherosclerotic heart disease of native coronary artery without angina pectoris; J44.9 Chronic obstructive pulmonary disease, unspecified; Z86.711 Personal history of pulmonary embolism; R06.02 Shortness of breath

== ENCOUNTER 2016-11-29 14:33 | Emergency (ER) | payer OTHER ==
[~2016-11-29] VITALS: Ht 177.8 cm; Wt 86.0 kg
[~2016-11-29 14:33] MED LIST changes: -ACET-1311 PO; -ACETAMINOPHEN 325 MG TAB PO PRN; -ENOX30IN4 SQ; -ENOX80IN SQ; -FENT100D10 TOP; -FENT75DI2 TD; -FLM4 PO; -KFL500 PO; -MRP15 PO; -NF656 TOP; -NURSING VERBAL MED ORDER ONE; -ONDA8TAB6 PO; -OXYCODONE HCL 10 MG TABCR (OXYCONTIN) PO ONE; -PRS5 PO
[2016-11-29 14:38] VITALS: TEMP 37.1; Ht 177.8 cm; Wt 86.0 kg
[2016-11-29 14:47] VITALS: O2SAT 95
[2016-11-29] MEDS ORDERED: SODIUM CHLORIDE 0.9% 1000ML 1,000 ML IV STA ×2 (14:50→14:57)
--- NOTE | 2016-11-29 15:07 | EMERGENCY ROOM VISIT NOTE ---
History Report prepared by Deo: Henrique Cutler Under the Supervision of: Dr. Domo Mendenhall M.D. First contact with patient: 14:36 Chief Complaint: HYPOTENSION Stated Complaint: LOW BLOOD PRESSURE History of Present Illness The patient is a 66 year old male who presents to the Emergency Room with complaints of constant hypotension for the past week. The patient states that he was at the cancer center this morning for his lung cancer, and they noticed his blood pressure was 82/52. He states that he does not have any current symptoms. He states that he has fell two days ago onto his left side, and he is having left sided pain. Additionally, the patient was having intermittent fevers a few days ago, and Tylenol helped. The patient states that he is short of breath, though this is chronic. The patient states that he is not on antibiotics or chemotherapy. Source of History: patient Onset: a week ago Position: other (global) Quality: other (hypotension) Timing: constant Associated Symptoms: + fevers, + SOB Note: Associated symptoms: Left sided pain Review of Systems See HPI for pertinent positives & negatives. A total of 10 systems reviewed and were otherwise negative. Past Medical & Surgical Medical Problems: (1) Adenocarcinoma of unknown primary (2) COPD (chronic obstructive pulmonary disease) (3) Coronary artery disease (4) Hypoxia (5) Pneumonia (6) Pulmonary embolism, bilateral (7) Sepsis Surgical Problems: (1) History of total replacement of right hip Family History Cancer Social History Smoking Status: Former Smoker Drug Use: none Marital Status: Housing Status: lives with significant other Occupation Status: employed Current/Historical Medications Scheduled Budesonide/Formoterol Fumarate (Symbicort 160/4.5 Inhaler ), 2 PUFFS INH BID Enoxaparin (Enoxaparin Sodium), 90 MG SQ Q12 Fentanyl (Fentanyl), 100 MCG TD Q3D@0530 Ipratropium-Albuterol (Combivent Respimat), 1 PUFFS INH QID Lidocaine (Lidoderm Patch 5%), 1 PATCH TOP Q12 Morphine Sulfate (Morphine Sulfate), 15 MG PO BID Scheduled PRN Albuterol Sulfate (Proventil Hfa), 2 PUFFS INH QID PRN for Wheezing Allergies Coded Allergies: No Known Allergies (Verified , 11/29/16) Physical Exam Vital Signs Date Time Temp Pulse Resp B/P (MAP) Pulse Ox O2 Delivery O2 Flow Rate FiO2 11/29/16 18:02 98 20 136/52 94 11/29/16 17:49 98 20 136/52 94 Nasal Cannula 2.0 11/29/16 17:03 97 18 128/53 95 Nasal Cannula 3.0 11/29/16 15:19 96 11/29/16 14:47 95 Nasal Cannula 3.0 11/29/16 14:47 97 20 103/60 95 Nasal Cannula 3.0 11/29/16 14:38 37.1 85 20 80/46 92 Nasal Cannula 3.0 Physical Exam GENERAL: Patient is chronically unwell appearing. Dehydrated HEENT: No acute trauma, normocephalic atraumatic, mucous membranes dry, no nasal congestion, no scleral icterus. NECK: No stridor, no adenopathy, no meningismus, trachea is midline. LUNGS: Diffuse crackles in all lung clay. No dyspnea. No wheeze, no rhonchi. HEART: Regular rate and rhythm. No murmurs, rubs, gallops appreciated. ABDOMEN: Tenderness to paplpation over the left lower ribs. Abdomen is soft, nontender, bowel sounds positive, no masses appreciated, no peritonitis. BACK: No midline tenderness, no CVA tenderness EXTREMITIES: Normal motion all extremities, no cyanosis, no edema. NEUROLOGIC: Alert and oriented, no acute motor or sensory deficits, no focal weakness, cranial nerves grossly intact. SKIN: Poor turgor. Fentanyl patch on the left chest. Lidocaine patch on the left lower chest. No rash, no jaundice, no diaphoresis. Medical Decision & Procedures ER Provider Diagnostic Interpretation: Radiology results and stated below per my review and radiologist interpretation: CHEST ONE VIEW PORTABLE HISTORY: 66 years-old Male acute fever and hypotension. Right chest wall mass. COMPARISON: Chest radiographs 11/19/2016, TECHNIQUE: Portable upright AP view of the chest FINDINGS: Right hilar mass and/or adenopathy is again seen. Innumerable pulmonary nodules throughout the bilateral lungs are redemonstrated. There is no pneumothorax. There is blunting of the bilateral costophrenic angles suggesting small pleural effusions with bibasilar consolidation which appears slightly progressed. Cardiac silhouette is within normal limits. There is atherosclerosis of the aorta. Calcifications about the left shoulder suggest calcific tendinosis or alternatively calcific bursitis. IMPRESSION: 1. Redemonstration of right hilar mass and/or adenopathy with multiple bilateral pulmonary nodules. 2. Unchanged small bilateral pleural effusions with slightly progressive bibasilar consolidations suggesting atelectasis or pneumonia. The above report was generated using voice recognition software. It may contain grammatical, syntax or spelling errors. Electronically signed by: Jesus Tomlinson M.D. 11/29/2016 3:30 PM Dictated Date/Time: 11/29/2016 3:27 PM (CHEST) THORAX WITH HISTORY: 66 years-old Male fall, left chest/abdominal pain with hypotension on lovenox . History of pulmonary and bony metastatic disease. Prior pathologic fractures of T5 as well as the right 11th and left eighth ribs. COMPARISON: CT abdomen and pelvis of same day, CTA of the chest 10/09/2016, CT guided right chest wall mass biopsy 11/19/2016 TECHNIQUE: Multiple axial CT images of the chest were obtained following the intravenous administration of 94 mL Optiray 320. A dose lowering technique was used consistent with the principals of HECTOR. FINDINGS: Thyroid is homogeneous. There is a 4.2 x 2.4 cm spiculated right hilar mass again seen, unchanged. No new thoracic adenopathy identified. There is moderate atherosclerosis of the aorta. There is dilation of the pulmonary artery compatible with pulmonary arterial hypertension. The previously noted pulmonary emboli within the left lower lobe are not clearly seen on today's study. Heart is mildly enlarged with coronary arterial calcifications. There is no pneumothorax. Advanced upper lobe predominant paraseptal and centrilobular emphysematous changes are noted. No large pleural effusion. There is mild bibasilar atelectasis. Innumerable pulmonary metastasis are again seen throughout the lungs bilaterally. Additionally, there are multiple pleural metastasis seen including the recently biopsied anterior right pleural metastases extending into the chest wall, 3.1 x 1.5 cm. Most of the metastasis measuring the 10 to 15 mm range. Appearance of the diffuse metastatic foci appears similar from comparison. Scattered areas of low attenuation throughout the hepatic parenchyma compatible with metastasis. Multifocal lytic metastasis again seen with pathologic compression deformity redemonstrated involving the T5 vertebral body. Metastatic lesion extends into the posterior elements at this interspace. Additional pathologic fracture involves the left eighth rib, unchanged as well as the right 11th rib. There is an acute nondisplaced fracture of the left ninth rib laterally. IMPRESSION: 1. Acute nondisplaced fracture of the lateral left ninth rib. 2. Pathologic fractures of the right 11th and left eighth ribs are redemonstrated along with pathologic compression deformity of T5. These are secondary to the diffuse lytic osseous metastatic foci as previously described. 3. Innumerable pulmonary and pleural metastatic lesions are again seen as well as right hilar mass and probable hepatic metastasis. 4. Evidence of pulmonary arterial hypertension. 5. No pneumothorax. The above report was generated using voice recognition software. It may contain grammatical, syntax or spelling errors. Electronically signed by: Jesus Tomlinson M.D. 11/29/2016 5:20 PM Dictated Date/Time: 11/29/2016 5:06 PM ABD/PELVIS IV CONTRAST ONLY CT DOSE: HISTORY: Trauma fall, left chest/abdominal pain with hypotension on Lovenox TECHNIQUE: Multiaxial CT images of the abdomen and pelvis were performed following the use of intravenous contrast. A dose lowering technique was utilized adhering to the principles of ALARA. COMPARISON STUDY: 10/15/2016 FINDINGS: Improved aeration of the lung bases compared to the prior study. Multiple pulmonary nodules again noted consistent with metastatic disease. These potentially are somewhat progressive. Hepatic metastatic disease considered generally stable to slightly progressive. Right renal cyst unchanged. Several small bilateral subcentimeter renal cysts also stable. Bilateral hip arthroplasties considered unchanged. Bony metastatic change is stable to slightly progressive. Unchanged aneurysmal dilatation of the distal abdominal aorta. No evidence for a vertebral compression deformity. Nondisplaced cortical fracture left ninth rib.. IMPRESSION: 1. Nondisplaced cortical fracture left ninth rib. 2. Metastatic change throughout the abdomen and pelvis mildly progressive from the prior exam. 3. Improved bibasilar pleural effusions with no significant residual. 4. Unchanging aneurysm of the distal abdominal aorta. The above report was generated using voice recognition software. It may contain grammatical, syntax or spelling errors. Electronically signed by: Colby Martinez M.D. 11/29/2016 5:10 PM Dictated Date/Time: 11/29/2016 5:04 PM Laboratory Results 11/29/16 15:38 Red Blood Count 3.55, Mean Corpuscular Volume 93.8, Mean Corpuscular Hemoglobin 29.3, Mean Corpuscular Hemoglobin Concent 31.2, Mean Platelet Volume 8.7, Neutrophils (%) (Auto) 83.7, Lymphocytes (%) (Auto) 7.3, Monocytes (%) (Auto) 7.7, Eosinophils (%) (Auto) 0.9, Basophils (%) (Auto) 0.1, Neutrophils # (Auto) 6.64, Lymphocytes # (Auto) 0.58, Monocytes # (Auto) 0.61, Eosinophils # (Auto) 0.07, Basophils # (Auto) 0.01 11/29/16 15:38 Test 11/29/16 15:38 11/29/16 15:50 11/29/16 15:52 White Blood Count 7.93 K/uL (4.8-10.8) Red Blood Count 3.55 M/uL (4.7-6.1) Hemoglobin 10.4 g/dL (14.0-18.0) Hematocrit 33.3 % (42-52) Mean Corpuscular Volume 93.8 fL (80-100) Mean Corpuscular Hemoglobin 29.3 pg (25-34) Mean Corpuscular Hemoglobin Concent 31.2 g/dl (32-36) Platelet Count 204 K/uL (130-400) Mean Platelet Volume 8.7 fL (7.4-10.4) Neutrophils (%) (Auto) 83.7 % Lymphocytes (%) (Auto) 7.3 % Monocytes (%) (Auto) 7.7 % Eosinophils (%) (Auto) 0.9 % Basophils (%) (Auto) 0.1 % Neutrophils # (Auto) 6.64 K/uL (1.4-6.5) Lymphocytes # (Auto) 0.58 K/uL (1.2-3.4) Monocytes # (Auto) 0.61 K/uL (0.11-0.59) Eosinophils # (Auto) 0.07 K/uL (0-0.5) Basophils # (Auto) 0.01 K/uL (0-0.2) RDW Standard Deviation 49.2 fL (36.4-46.3) RDW Coefficient of Variation 14.2 % (11.5-14.5) Immature Granulocyte % (Auto) 0.3 % Immature Granulocyte # (Auto) 0.02 K/uL (0.00-0.02) Prothrombin Time 11.9 SECONDS (9.0-12.0) Prothromb Time International Ratio 1.1 (0.9-1.1) Est Creatinine Clear Calc Drug Dose 127.2 ml/min Estimated GFR () 122.3 Estimated GFR (Non- 105.5 BUN/Creatinine Ratio 25.1 (10-20) Calcium Level 9.5 mg/dl (8.5-10.1) Magnesium Level 1.8 mg/dl (1.8-2.4) Total Bilirubin 0.3 mg/dl (0.2-1) Direct Bilirubin 0.1 mg/dl (0-0.2) Aspartate Amino Transf (AST/SGOT) 16 U/L (15-37) Alanine Aminotransferase (ALT/SGPT) 14 U/L (12-78) Alkaline Phosphatase 209 U/L (45-117) Troponin I < 0.015 ng/ml (0-0.045) Total Protein 7.1 gm/dl (6.4-8.2) Albumin 2.2 gm/dl (3.4-5.0) Bedside Hemoglobin 11.2 g/dl (14.0-18.0) Bedside Hematocrit 33 % (42-52) Bedside Sodium 134 mEq/L (135-144) Bedside Potassium 3.8 mEq/L (3.3-5.0) Bedside Chloride 89 mEq/L (101-112) Bedside Total CO2 35 mEq/l (24-31) Anion Gap 15.0 mmol/L (16-25) Bedside Blood Urea Nitrogen 16 mg/dl (7-18) Bedside Creatinine 0.7 mg/dl (0.6-1.3) Bedside Glucose (other) 104 mg/dl (70-99) Bedside Ionized Calcium (Cat) 1.17 mmol/l (1.12-1.32) Bedside Lactic Acid Venous 0.88 mmol/L (0.90-1.70) Laboratory results as reviewed by me. Medications Administered Medications (Trade) Dose Ordered Sig/Abbi Route Start Time Stop Time Status Last Admin Dose Admin Sodium Chloride 1,000 ml @ 999 mls/hr Q1H1M STAT IV 11/29/16 14:50 11/29/16 15:50 DC 11/29/16 15:43 999 MLS/HR Sodium Chloride 1,000 ml @ 999 mls/hr Q1H1M STAT IV 11/29/16 14:57 11/29/16 15:57 DC 11/29/16 15:43 999 MLS/HR ECG Indication: other (hypotension) Rate (beats per minute): 86 Rhythm: normal sinus Findings: no acute ischemic change, no ectopy ED Course 1436: The patient was evaluated in room C5. A complete history and physical exam was performed. 1450: Sodium Chloride 1000 ml @ 999 mls/hr IV 1457: Sodium Chloride 1000 ml @ 999 mls/hr IV 1740: I reevaluated the patient, and he states that he is feeling much better. His blood pressure improved, and he has better color in his face. He wishes to go home. Medical Decision Differential: Sepsis, Infectious (UTI/Pneumonia/Meningitis/etc), Metabolic/ Electrolyte Abnormality, Cardiac, Hepatic, Endocrine, Toxicologic, Neurologic, amongst other pathologies entertained. 66 yr old male known to me from a few weeks ago when admitted for sepsis ( likely pulm source). He has known diagnosis metastatic lung CA though not yet on Chemo due to poor health status thus far. He and admit he essentially has not been eating over the last few weeks due to lack of appetite and inability to force himself to eat. Was at Onc appt and noted to be hypotensive thus sent to ED for furhter evaluation. Clearly dehydrated by examination. No clear evidence infection. Given recent sepsis I did opt to do cultures though I feel that his poor nutrition/hydration status is cause of hypotension. BP vastly improved with IV fluids and patient clearly looks much improved. Patient with clear TTP over left lower ribs and with being on blood thinner, hypotension and recent fall I felt no option other than to do imaging to rule out any bleed which fortunately CT showing 9th rib fracture as sole acute injury. However CT does reveal diffuse cancer which was known. I had long discussion with pt/ regarding imaging. I did voice my concerns that he has quite severe disease. I made it clear that if at any time they feel he requires further evaluation, pain control or other concerns the ED is always available to them. Medication Reconcilliation Current Medication List: was personally reviewed by me Blood Pressure Screening Patient's blood pressure: Low blood pressure Impression Primary Impression: Hypotension Additional Impressions: Dehydration Generalized weakness Metastatic lung cancer (metastasis from lung to other site) Left rib fracture Scribe Attestation The scribe's documentation has been prepared under my direction and personally reviewed by me in its entirety. I confirm that the note above accurately reflects all work, treatment, procedures, and medical decision making performed by me. Departure Information Dispostion Home / Self-Care Referrals Ann Olivas M.D. (PCP) Forms HOME CARE DOCUMENTATION FORM, IMPORTANT VISIT INFORMATION Patient Instructions Dehydration, ED Fx Rib, My [facility] Health Problem Qualifiers
[2016-11-29] MEDS ORDERED: OPTIRAY 320 IV PRN (15:30)
--- NOTE | 2016-11-29 15:31 | DIAGNOSTIC IMAGING REPORT ---
CHEST ONE VIEW PORTABLE HISTORY: 66 years-old Male acute fever and hypotension. Right chest wall mass. COMPARISON: Chest radiographs 11/19/2016, TECHNIQUE: Portable upright AP view of the chest FINDINGS: Right hilar mass and/or adenopathy is again seen. Innumerable pulmonary nodules throughout the bilateral lungs are redemonstrated. There is no pneumothorax. There is blunting of the bilateral costophrenic angles suggesting small pleural effusions with bibasilar consolidation which appears slightly progressed. Cardiac silhouette is within normal limits. There is atherosclerosis of the aorta. Calcifications about the left shoulder suggest calcific tendinosis or alternatively calcific bursitis. IMPRESSION: 1. Redemonstration of right hilar mass and/or adenopathy with multiple bilateral pulmonary nodules. 2. Unchanged small bilateral pleural effusions with slightly progressive bibasilar consolidations suggesting atelectasis or pneumonia. The above report was generated using voice recognition software. It may contain grammatical, syntax or spelling errors. Electronically signed by: Jesus Tomlinson M.D. 11/29/2016 3:30 PM Dictated Date/Time: 11/29/2016 3:27 PM
[2016-11-29] MEDS ORDERED: MRP15 PO (15:32)
[2016-11-29] MEDS ORDERED: NF656 TOP (15:32)
[2016-11-29 16:02] LABS: ISTAT CREATININE 0.7 mg/dl (0.6-1.3); ISTAT HEMOGLOBIN 11.2 g/dl (14.0-18.0); ISTAT IONIZED CALCIUM 1.17 mmol/l (1.12-1.32)
[2016-11-29 16:08] LABS: BASO % 0.1 %; BASO ABS # 0.01 K/uL (0-0.2); COMPLETE YES; EOS % 0.9 %; HEMATOCRIT 33.3 % (42-52); IG% 0.3 %; LYMPH % 7.3 %; LYMPH ABS # 0.58 K/uL (1.2-3.4); MEAN CELL VOLUME 93.8 fL (80-100); MEAN CORPUSCULAR HEMOGLOBIN 29.3 pg (25-34); MEAN CORPUSCULAR HGB CONC 31.2 g/dl (32-36); MEAN PLATELET VOLUME 8.7 fL (7.4-10.4); MONO % 7.7 %; NEUT % 83.7 %; PLATELET COUNT 204 K/uL (130-400); RED BLOOD COUNT 3.55 M/uL (4.7-6.1); WHITE BLOOD COUNT 7.93 K/uL (4.8-10.8)
[2016-11-29 16:14] LABS: INR 1.1 (0.9-1.1); PROTHROMBIN TIME (PATIENT) 11.9 SECONDS (9.0-12.0)
[2016-11-29 16:32] LABS: ALT/SGPT 14 U/L (12-78); AST/SGOT 16 U/L (15-37); BLOOD UREA NITROGEN 15 mg/dl (7-18); BUN/CREATININE RATIO 25.1 (10-20); CALCIUM 9.5 mg/dl (8.5-10.1); CARBON DIOXIDE 37 mmol/L (21-32); CHLORIDE 94 mmol/L (98-107); CREATININE 0.59 mg/dl (0.60-1.40); GLUCOSE 98 mg/dl (70-99); MAGNESIUM 1.8 mg/dl (1.8-2.4); POTASSIUM 3.8 mmol/L (3.5-5.1); SODIUM 135 mmol/L (136-145)
[2016-11-29 16:40] LABS: ALKALINE PHOSPHATASE 209 U/L (45-117)
--- NOTE | 2016-11-29 17:11 | DIAGNOSTIC IMAGING REPORT ---
ABD/PELVIS IV CONTRAST ONLY CT DOSE: HISTORY: Trauma fall, left chest/abdominal pain with hypotension on Lovenox TECHNIQUE: Multiaxial CT images of the abdomen and pelvis were performed following the use of intravenous contrast. A dose lowering technique was utilized adhering to the principles of ALARA. COMPARISON STUDY: 10/15/2016 FINDINGS: Improved aeration of the lung bases compared to the prior study. Multiple pulmonary nodules again noted consistent with metastatic disease. These potentially are somewhat progressive. Hepatic metastatic disease considered generally stable to slightly progressive. Right renal cyst unchanged. Several small bilateral subcentimeter renal cysts also stable. Bilateral hip arthroplasties considered unchanged. Bony metastatic change is stable to slightly progressive. Unchanged aneurysmal dilatation of the distal abdominal aorta. No evidence for a vertebral compression deformity. Nondisplaced cortical fracture left ninth rib.. IMPRESSION: 1. Nondisplaced cortical fracture left ninth rib. 2. Metastatic change throughout the abdomen and pelvis mildly progressive from the prior exam. 3. Improved bibasilar pleural effusions with no significant residual. 4. Unchanging aneurysm of the distal abdominal aorta. The above report was generated using voice recognition software. It may contain grammatical, syntax or spelling errors. Electronically signed by: Colby Martinez M.D. 11/29/2016 5:10 PM Dictated Date/Time: 11/29/2016 5:04 PM
--- NOTE | 2016-11-29 17:21 | DIAGNOSTIC IMAGING REPORT ---
(CHEST) THORAX WITH HISTORY: 66 years-old Male fall, left chest/abdominal pain with hypotension on lovenox . History of pulmonary and bony metastatic disease. Prior pathologic fractures of T5 as well as the right 11th and left eighth ribs. COMPARISON: CT abdomen and pelvis of same day, CTA of the chest 10/09/2016, CT guided right chest wall mass biopsy 11/19/2016 TECHNIQUE: Multiple axial CT images of the chest were obtained following the intravenous administration of 94 mL Optiray 320. A dose lowering technique was used consistent with the principals of HECTOR. FINDINGS: Thyroid is homogeneous. There is a 4.2 x 2.4 cm spiculated right hilar mass again seen, unchanged. No new thoracic adenopathy identified. There is moderate atherosclerosis of the aorta. There is dilation of the pulmonary artery compatible with pulmonary arterial hypertension. The previously noted pulmonary emboli within the left lower lobe are not clearly seen on today's study. Heart is mildly enlarged with coronary arterial calcifications. There is no pneumothorax. Advanced upper lobe predominant paraseptal and centrilobular emphysematous changes are noted. No large pleural effusion. There is mild bibasilar atelectasis. Innumerable pulmonary metastasis are again seen throughout the lungs bilaterally. Additionally, there are multiple pleural metastasis seen including the recently biopsied anterior right pleural metastases extending into the chest wall, 3.1 x 1.5 cm. Most of the metastasis measuring the 10 to 15 mm range. Appearance of the diffuse metastatic foci appears similar from comparison. Scattered areas of low attenuation throughout the hepatic parenchyma compatible with metastasis. Multifocal lytic metastasis again seen with pathologic compression deformity redemonstrated involving the T5 vertebral body. Metastatic lesion extends into the posterior elements at this interspace. Additional pathologic fracture involves the left eighth rib, unchanged as well as the right 11th rib. There is an acute nondisplaced fracture of the left ninth rib laterally. IMPRESSION: 1. Acute nondisplaced fracture of the lateral left ninth rib. 2. Pathologic fractures of the right 11th and left eighth ribs are redemonstrated along with pathologic compression deformity of T5. These are secondary to the diffuse lytic osseous metastatic foci as previously described. 3. Innumerable pulmonary and pleural metastatic lesions are again seen as well as right hilar mass and probable hepatic metastasis. 4. Evidence of pulmonary arterial hypertension. 5. No pneumothorax. The above report was generated using voice recognition software. It may contain grammatical, syntax or spelling errors. Electronically signed by: Jesus Tomlinson M.D. 11/29/2016 5:20 PM Dictated Date/Time: 11/29/2016 5:06 PM
[2016-11-29 18:02] VITALS: BP 136/52; PULSE 98; O2SAT 94
[2016-12-18] MEDS ORDERED: ONDA8TAB6 PO (15:38)
[2016-12-18] MEDS ORDERED: ACET-1311 PO (15:39)
[2016-12-18] MEDS ORDERED: ENOX30IN4 SQ (16:12)
[2016-12-18] MEDS ORDERED: FENT100D10 TOP (16:12)
[2017-01-03] MEDS ORDERED: ENOX80IN SQ (07:35)
[2017-01-15] MEDS ORDERED: KFL500 PO (10:19)
[2017-01-15] MEDS ORDERED: FLM4 PO (10:19)
== END 2016-11-29 18:02 | disposition home or self-care (01) ==
LOC: C.EDB 14:35 → C.EDC 18:02
DX: I10 Essential (primary) hypertension (principal); E86.0 Dehydration; R42 Dizziness and giddiness; C34.90 Malignant neoplasm of unspecified part of unspecified bronchus or lung; S22.32XA Fracture of one rib, left side, initial encounter for closed fracture; X58.XXXA Exposure to other specified factors, initial encounter; J44.9 Chronic obstructive pulmonary disease, unspecified; I25.10 Atherosclerotic heart disease of native coronary artery without angina pectoris; R09.02 Hypoxemia; Z87.891 Personal history of nicotine dependence

== ENCOUNTER → 2016-12-23 | Day surgery (SDC) | payer OTHER ==
[2016-12-18 15:40] VITALS: BMI 26.0
[~2016-12-23] VITALS: Ht 177.8 cm; Wt 81.8 kg
[~2016-12-23] MED LIST changes: +ACET-1311 PO; +ALBUT/IPRATROP 3MG/0.5MG NEB 3 ML VIAL INH ONE; -ASPI81TA28 PO; -ATEN-173 PO; +ATROPINE SULFATE 0.1 MG/ML 5ML SYR IV PRN; +CEFAZOLIN 2000 MG/60 ML D5W IV SCH; +CEFAZOLIN SOD 1 GM VIAL ONE; -DRGTP100 TD; +ENOX30IN4 SQ; +ENOX80IN SQ; +EpHEDrine SULFATE INJ 50 MG/ML AMP IV PRN; +FENT100D10 TOP; +FENTANYL CITRATE INJ 50 MCG/1 ML 2 ML VIAL IV PRN; +FENTANYL CITRATE INJ 50 MCG/1 ML 2 ML VIAL ONE; +FLM4 PO; +FLUMAZENIL 0.1 MG/1 ML 10 ML VIAL IV PRN; -FURO-85 PO; +HEPARIN SOD (PORCINE) 1000 UNIT/ML 10 ML VIAL ONE; +HYDROCODONE/ACETAMOPHEN 5/325MG TAB PO PRN; +HYDROmorphone INJ 2 MG/ML SYR/VIAL IV PRN; -IPRA1AER2 INH; +KFL500 PO; +LABETALOL HCL IV 5 MG/ML 20ML IV PRN; +LACTATED RINGER'S 1000ML 1,000 ML IV SCH; +LIDOCAINE HCL 1% 20 ML VIAL ONE; +LIDOCAINE HCL 2% 2 ML VIAL (20MG/ML) ONE; -LVNIS100 SQ; -LVQ750 PO; -MAGN400T6 PO; +MEPERIDINE HCL 25 MG/ML CARP IV PRN; +MIDAZOLAM HCL 1 MG/ML 2ML VIAL ONE; +MRP15 PO; +MoRPHine SULFATE 2 MG/ML CARP IV PRN; +NALOXONE HCL 0.4 MG/1 ML VIAL/CARP IV PRN; +NF656 TOP; +ONDA8TAB6 PO; +ONDANSETRON INJ 2 MG/ML 2 ML VIAL IV PRN; -OXYC1TAB3 PO; +OXYCODONE/ACETAMINOPHEN 5-325 TAB PO PRN; +PHENYLEPHRINE 100MCG/ML 5ML SYR IV PRN; -PRD20 PO; +PROPOFOL IV EMULSION 10 MG/ML 20 ML VIAL IV ONE; +PRS5 PO; -SULF-183 PO; +THROMBIN FOR SOLN 20000 UNIT KIT ONE
[2016-12-23 07:34] VITALS: BP 107/58; PULSE 100; TEMP 37.5; O2SAT 97; Ht 177.8 cm; Wt 81.8 kg
--- NOTE | 2016-12-23 08:18 | History & Physical Bridge Note ---
H&P Re-Evaluation Bridge Note: I have examined the patient, reviewed the History & Physical and in the interval since the performance of the History & Physical I have noted the following changes of clinical significance: No changes noted
[2016-12-23 08:27] VITALS: PULSE 93; O2SAT 94
--- NOTE | 2016-12-23 08:51 | Discharge Instructions ---
Discharge Instructions Date of Service Dec 23, 2016. Visit Reason for Visit: Lung Adenocarcinoma Discharge Discharge Diagnosis / Problem: A-port placement Discharge Goals Goal(s): Improve disease control Activity Recommendations Activity Limitations: as noted below Shower/Bathe: keep incision dry (for 2 days) Driving or Machine Use: resume 1 day after discharge Anesthesia . Post Anesthesia Instructions: If you have had General Anesthesia or IV Sedation: * Do not drive today. * Resume driving when surgeon permits. * Do not make important decisions or sign legal documents today. * Call surgeon for: 1. Temperature elevations greater than 101 degrees F. 2. Uncontrollable pain. 3. Excessive bleeding. 4. Persistent nausea and vomiting. 5. Medication intolerance (nausea, vomiting or rash). * For nausea and vomiting use only clear liquids such as: tea, soda, bouillon until nausea subsides, then gradually increase diet as tolerated. * If you have any concerns or questions, call your surgeon's office. If physician is unavailable and it is an emergency, call 911 or go to the nearest emergency room. . Instructions / Follow-Up Instructions / Follow-Up Dr. Patton's office in 2 weeks for suture removal, [phone] Restart Lovenox Friday per Dr. Patton's instructions Diet Recommendations Recommended Home Diet: no limitations Pending Studies Studies pending at discharge: no Medical Emergencies . Who to Call and When: Medical Emergencies: If at any time you feel your situation is an emergency, please call 911 immediately. . Non-Emergent Contact Non-Emergency issues call your: Surgeon Call Non-Emergent contact if: you have a fever, temperature is above 101.5, your pain is not controlled, wound has increased redness . . "Provider Documentation" section prepared by Geovanny Camp. .
--- NOTE | 2016-12-23 09:33 | [facility] Operative Report ---
Operative Report Operative Date Dec 23, 2016. Pre-Operative Diagnosis Lung Adenocarcinoma Post-Operative Diagnosis Lung Adenocarcinoma Procedure(s) Performed Insertion of A-port Surgeon Dr. Patton Technical Account Executive Surgeon(s) Eileen Lakhani, MS3 Findings placed via Lt cephalic vein Specimens None per surgeon Anesthesia local/ sedation Complication(s) None Disposition Recovery Room / PACU I attest to the content of the Intraoperative Record and any orders documented therein. Any exceptions are noted below.
--- NOTE | 2016-12-23 10:02 | OPERATIVE REPORT ---
DATE OF OPERATION: 12/23/2016 NAME OF OPERATION: Port placement. PREOPERATIVE DIAGNOSIS: Lung cancer. POSTOPERATIVE DIAGNOSIS: Same. STAFF SURGEON: Dr. Patton. ANESTHESIA: 1% plain lidocaine with sedation. PROCEDURE: The patient was brought in the operating room and placed on the operating table in supine position. His left chest was prepped and draped in usual fashion. Using 1% plain lidocaine, skin and subcutaneous tissue over the left deltopectoral groove were anesthetized. Incision made carrying dissection down identifying the cephalic vein which was ligated distally then opened. A catheter was passed into the distal superior vena cava under fluoroscopy, positioned in place, aspirated and flushed with heparinized solution and then secured using 2-0 silk suture. A pocket was fashioned in the chest wall. The port was attached to the catheter, placed into the pocket and secured to the chest wall using 3-0 Prolene suture. The port was aspirated and flushed with heparinized solution. The wound was irrigated with antibiotic solution and the subcutaneous tissue was reapproximated using 2-0 chromic catgut suture then the skin reapproximated using 4-0 nylon suture. Dressing was applied and the patient transferred to recovery room in stable condition. I attest to the content of the Intraoperative Record and any orders documented therein. Any exception s are noted below.
--- NOTE | 2016-12-23 10:08 | DIAGNOSTIC IMAGING REPORT ---
CHEST ONE VIEW PORTABLE CLINICAL HISTORY: 66 years-old Male presenting with port placement. TECHNIQUE: Portable upright AP view of the chest was obtained. COMPARISON: Chest x-ray from 11/29/[address] from 11/29/2016. FINDINGS: Left subclavian Mediport terminates at the superior cavoatrial junction. Density over the right hilar region consistent with known mass. Multifocal bilateral ulnar nodules with a mid to basilar predominance are best visualized on chest CT, although several of the larger nodules are apparent. Persistent bandlike opacities at the right base and left mid to lower lung. No new infiltrate. No large effusion. Possible trace left apical pneumothorax. Degenerative changes of the right glenohumeral joint. Cortical irregularity of the right anterolateral sixth rib may suggest prior fracture. Upper abdomen normal. IMPRESSION: 1. Interval placement of left subclavian Mediport. Trace left apical pneumothorax may be present. Follow-up right lateral decubitus could be obtained for further confirmation. 2. No significant change in the appearance of the right hilar mass and bilateral pulmonary nodules. 3. Persistent bibasilar atelectasis or scarring. No new infiltrate. Electronically signed by: Db Sibley M.D. 12/23/2016 10:07 AM Dictated Date/Time: 12/23/2016 10:02 AM
--- NOTE | 2016-12-23 10:09 | Anesthesiology Progress Note ---
Anesthesia Post Op Note Date & Time Dec 23, 2016 at 10:08 Vital Signs Pain Intensity: 0 Vital Signs Past 12 Hours Date Time Temp Pulse Resp B/P (MAP) Pulse Ox O2 Delivery O2 Flow Rate FiO2 12/23/16 10:00 92 24 12/23/16 10:00 92 24 106/54 97 12/23/16 10:00 36.6 91 20 105/47 98 Nasal Cannula 4 12/23/16 09:56 105/47 12/23/16 09:55 89 20 12/23/16 09:55 95 20 97 12/23/16 09:51 93/52 12/23/16 09:50 100 18 100 12/23/16 09:50 95 18 12/23/16 09:45 100 23 81 12/23/16 09:45 96 23 12/23/16 09:40 95 22 107/64 99 12/23/16 09:40 92 22 12/23/16 09:35 98 25 12/23/16 09:35 97 25 108/66 97 12/23/16 09:33 102/55 12/23/16 09:33 36.5 99 16 102/55 98 Mask 10 12/23/16 08:27 93 18 94 Nasal Cannula 3.0 12/23/16 07:34 37.5 100 20 107/58 (74) 97 Nasal Cannula 4 Notes Mental Status: alert / awake / arousable, participated in evaluation Pt Amnestic to Procedure: Yes Nausea / Vomiting: adequately controlled Pain: adequately controlled Airway Patency, RR, SpO2: stable & adequate BP & HR: stable & adequate Hydration State: stable & adequate Anesthetic Complications: no major complications apparent The patient has had L chest pain since his rib fracture. He ran out of morphine several days ago and was having a lot of pain prior to the procedure. He feels better now in PACU then he did preoperatively.
[2016-12-23 10:10] VITALS: BP 90/55; PULSE 85; TEMP 37.3; O2SAT 97
[2016-12-23 10:40] VITALS: BP 95/48; PULSE 94; TEMP 37; O2SAT 98
== END | disposition home or self-care (01) ==
LOC: C.ACU 06:41
PROVIDERS: ATTEND Surgery
DX: C34.90 Malignant neoplasm of unspecified part of unspecified bronchus or lung (principal); I25.10 Atherosclerotic heart disease of native coronary artery without angina pectoris; I50.9 Heart failure, unspecified; I25.2 Old myocardial infarction; Z86.711 Personal history of pulmonary embolism; Z96.649 Presence of unspecified artificial hip joint

== ENCOUNTER 2017-01-10 13:55 | Inpatient (IN) | payer OTHER ==
[~2017-01-10] VITALS: Ht 177.8 cm; Wt 80.5 kg
[~2017-01-10 13:55] MED LIST changes: -ALBUT/IPRATROP 3MG/0.5MG NEB 3 ML VIAL INH ONE; -ATROPINE SULFATE 0.1 MG/ML 5ML SYR IV PRN; -CEFAZOLIN 2000 MG/60 ML D5W IV SCH; -CEFAZOLIN SOD 1 GM VIAL ONE; -ENOX30IN4 SQ; -EpHEDrine SULFATE INJ 50 MG/ML AMP IV PRN; -FENTANYL CITRATE INJ 50 MCG/1 ML 2 ML VIAL IV PRN; -FENTANYL CITRATE INJ 50 MCG/1 ML 2 ML VIAL ONE; -FLM4 PO; -FLUMAZENIL 0.1 MG/1 ML 10 ML VIAL IV PRN; -HEPARIN SOD (PORCINE) 1000 UNIT/ML 10 ML VIAL ONE; -HYDROCODONE/ACETAMOPHEN 5/325MG TAB PO PRN; -HYDROmorphone INJ 2 MG/ML SYR/VIAL IV PRN; -KFL500 PO; -LABETALOL HCL IV 5 MG/ML 20ML IV PRN; -LACTATED RINGER'S 1000ML 1,000 ML IV SCH; -LIDOCAINE HCL 1% 20 ML VIAL ONE; -LIDOCAINE HCL 2% 2 ML VIAL (20MG/ML) ONE; -MEPERIDINE HCL 25 MG/ML CARP IV PRN; -MIDAZOLAM HCL 1 MG/ML 2ML VIAL ONE; -MoRPHine SULFATE 2 MG/ML CARP IV PRN; -NALOXONE HCL 0.4 MG/1 ML VIAL/CARP IV PRN; -NF656 TOP; -ONDANSETRON INJ 2 MG/ML 2 ML VIAL IV PRN; -OXYCODONE/ACETAMINOPHEN 5-325 TAB PO PRN; -PHENYLEPHRINE 100MCG/ML 5ML SYR IV PRN; -PROPOFOL IV EMULSION 10 MG/ML 20 ML VIAL IV ONE; -PRS5 PO; -THROMBIN FOR SOLN 20000 UNIT KIT ONE
[2017-01-10] MEDS ORDERED: SODIUM CHLORIDE 0.9% 1000ML 500 ML IV STA (14:10)
--- NOTE | 2017-01-10 14:18 | EMERGENCY ROOM VISIT NOTE ---
History Report prepared by Deo: Win Tadeo Under the Supervision of: Dr. Marquez Barnes M.D. First contact with patient: 14:06 Chief Complaint: URINARY SYMPTOMS Stated Complaint: UTI ISSUES,BLOOD IN URINE History of Present Illness The patient is a 66 year old male who presents to the Emergency Room with complaints of intermittent urinary retention beginning a few days ago. The patient states that for the past couple days, he has not been able to void easily, and when he does, he experiences hematuria and dysuria. He reports that it feels like he is able to empty his bladder, but it takes a long time. The patient denies a history of a UTIs, bladder issues, and prostate issues. He notes that he received his second dose of chemotherapy three days ago for metastatic lung and bone cancer. The patient states he does not know the source of the cancer. He reports that he has not had urinary symptoms before with the chemotherapy. The patient notes that he has a history of COPD and is on 3-4L of oxygen at home. He denies vomiting, fevers, new shortness of breath, and bladder pain. The patient states that he is currently taking Lovenox injections for a history of a PE. He notes that his blood pressure occasionally runs low. Source of History: patient Onset: few days ago Position: other (bladder) Quality: other (urinary retention) Timing: intermittent Associated Symptoms: No fevers, No SOB (new), No vomiting Note: Associated symptoms: hematuria and dysuria Denies: bladder pain Review of Systems See HPI for pertinent positives & negatives. A total of 10 systems reviewed and were otherwise negative. Past Medical & Surgical Medical Problems: (1) Adenocarcinoma of unknown primary (2) COPD (chronic obstructive pulmonary disease) (3) Coronary artery disease (4) History of metastatic neoplastic disease (5) Hypoxia (6) Pneumonia (7) Pulmonary embolism, bilateral (8) Sepsis Surgical Problems: (1) History of total replacement of right hip Family History Cancer Social History Smoking Status: Never Smoker Drug Use: none Marital Status: Housing Status: lives with significant other Occupation Status: employed Current/Historical Medications Scheduled Acetaminophen (Tylenol), 650 MG PO PRN Budesonide/Formoterol Fumarate (Symbicort 160/4.5 Inhaler ), 2 PUFFS INH BID Enoxaparin (Lovenox), 80 MG SQ Q12H Fentanyl (Duragesic), 100-112 MCG TOP Q72HRS Scheduled PRN Albuterol Sulfate (Proventil Hfa), 2 PUFFS INH QID PRN for Wheezing Morphine Sulfate (Morphine Sulfate), 15 MG PO Q4H PRN for Pain Ondansetron Hcl (Zofran), 8 MG PO PRN PRN for Nausea Allergies Coded Allergies: No Known Allergies (Verified , 12/23/16) Physical Exam Vital Signs Date Time Temp Pulse Resp B/P (MAP) Pulse Ox O2 Delivery O2 Flow Rate FiO2 01/10/17 18:23 88 20 116/56 99 01/10/17 17:31 95 20 107/65 98 Nasal Cannula 3.0 01/10/17 15:44 85 20 116/50 97 Nasal Cannula 3.0 01/10/17 14:37 98 01/10/17 14:36 87 20 98/50 97 Nasal Cannula 3.0 99 87/45 01/10/17 14:30 95 Nasal Cannula 3.0 01/10/17 13:59 36.8 99 20 90/55 94 Nasal Cannula 3.0 Physical Exam GENERAL: Patient is in no acute distress. HEENT: No acute trauma, normocephalic atraumatic, mucous membranes dry, no nasal congestion, no scleral icterus. NECK: No stridor, no adenopathy, no meningismus, trachea is midline. LUNGS: Scattered crackles with diminished breath sounds bilaterally, breath sounds equal, no wheezing. HEART: 3/6 systolic murmur with an occasional extra beat, normal rate. ABDOMEN: Soft, nontender, bowel sounds positive, no hernias, no peritonitis. EXTREMITIES: No cyanosis or edema, full range of motion of all the joints without pain or difficulty, no signs for acute trauma. NEUROLOGIC: Oriented x 3, no acute motor or sensory deficits, no focal weakness. SKIN: No rash, no jaundice, no diaphoresis. Medical Decision & Procedures Laboratory Results 01/10/17 14:30 Red Blood Count 3.19, Mean Corpuscular Volume 91.8, Mean Corpuscular Hemoglobin 28.2, Mean Corpuscular Hemoglobin Concent 30.7, Mean Platelet Volume 8.1, Neutrophils (%) (Auto) 89.3, Lymphocytes (%) (Auto) 9.1, Monocytes (%) (Auto) 1.3, Eosinophils (%) (Auto) 0.0, Basophils (%) (Auto) 0.1, Neutrophils # (Auto) 7.53, Lymphocytes # (Auto) 0.77, Monocytes # (Auto) 0.11, Eosinophils # (Auto) 0.00, Basophils # (Auto) 0.01 01/10/17 14:30 Test 01/10/17 14:30 01/10/17 15:40 White Blood Count 8.44 K/uL (4.8-10.8) Red Blood Count 3.19 M/uL (4.7-6.1) Hemoglobin 9.0 g/dL (14.0-18.0) Hematocrit 29.3 % (42-52) Mean Corpuscular Volume 91.8 fL (80-100) Mean Corpuscular Hemoglobin 28.2 pg (25-34) Mean Corpuscular Hemoglobin Concent 30.7 g/dl (32-36) Platelet Count 234 K/uL (130-400) Mean Platelet Volume 8.1 fL (7.4-10.4) Neutrophils (%) (Auto) 89.3 % Lymphocytes (%) (Auto) 9.1 % Monocytes (%) (Auto) 1.3 % Eosinophils (%) (Auto) 0.0 % Basophils (%) (Auto) 0.1 % Neutrophils # (Auto) 7.53 K/uL (1.4-6.5) Lymphocytes # (Auto) 0.77 K/uL (1.2-3.4) Monocytes # (Auto) 0.11 K/uL (0.11-0.59) Eosinophils # (Auto) 0.00 K/uL (0-0.5) Basophils # (Auto) 0.01 K/uL (0-0.2) RDW Standard Deviation 52.8 fL (36.4-46.3) RDW Coefficient of Variation 16.2 % (11.5-14.5) Immature Granulocyte % (Auto) 0.2 % Immature Granulocyte # (Auto) 0.02 K/uL (0.00-0.02) Prothrombin Time 12.0 SECONDS (9.0-12.0) Prothromb Time International Ratio 1.1 (0.9-1.1) Activated Partial Thromboplast Time 38.6 SECONDS (21.0-31.0) Partial Thromboplastin Ratio 1.5 Anion Gap 4.0 mmol/L (3-11) Est Creatinine Clear Calc Drug Dose 153.1 ml/min Estimated GFR () 132.0 Estimated GFR (Non- 113.9 BUN/Creatinine Ratio 25.2 (10-20) Calcium Level 8.7 mg/dl (8.5-10.1) Total Bilirubin 0.4 mg/dl (0.2-1) Aspartate Amino Transf (AST/SGOT) 20 U/L (15-37) Alanine Aminotransferase (ALT/SGPT) 18 U/L (12-78) Alkaline Phosphatase 182 U/L (45-117) Total Protein 6.4 gm/dl (6.4-8.2) Albumin 2.1 gm/dl (3.4-5.0) Globulin 4.3 gm/dl (2.5-4.0) Albumin/Globulin Ratio 0.5 (0.9-2) Urine Color YELLOW Urine Appearance CLEAR (CLEAR) Urine pH 7.0 (4.5-7.5) Urine Specific [place] 1.013 (1.000-1.030) Urine Protein TRACE (NEG) Urine Glucose (UA) NEG (NEG) Urine Ketones NEG (NEG) Urine Occult Blood 3+ (NEG) Urine Nitrite NEG (NEG) Urine Bilirubin NEG (NEG) Urine Urobilinogen NEG (NEG) Urine Leukocyte Esterase NEG (NEG) Urine WBC (Auto) 5-10 /hpf (0-5) Urine RBC (Auto) >30 /hpf (0-4) Urine Hyaline Casts (Auto) 1-5 /lpf (0-5) Urine Epithelial Cells (Auto) >30 /lpf (0-5) Urine Bacteria (Auto) NEG (NEG) Urine Renal Epithelial Cells 0-5 /lpf (0-5) Laboratory results reviewed by me. Medications Administered Medications (Trade) Dose Ordered Sig/Abbi Route Start Time Stop Time Status Last Admin Dose Admin Sodium Chloride 500 ml @ 999 mls/hr Q31M STAT IV 01/10/17 14:10 01/10/17 14:40 DC 01/10/17 14:30 999 MLS/HR Sodium Chloride 500 ml @ 999 mls/hr Q31M STAT IV 01/10/17 16:54 01/10/17 17:24 DC 01/10/17 16:54 999 MLS/HR Sodium Chloride 1,000 ml @ 125 mls/hr Q8H STAT IV 01/10/17 16:54 01/10/17 19:36 DC 01/10/17 16:54 125 MLS/HR Sodium Chloride 1,000 ml @ 75 mls/hr [id number] IV 01/10/17 18:00 02/09/17 17:59 01/10/17 19:40 75 MLS/HR ED Course 1407: The patient was evaluated in room A09B. A complete history and physical exam was performed. Orthostatic vital signs show a drop in blood pressure slightly. 1410: Ordered Sodium Chloride 500 ml @ 999 mls/hr IV 1602: Bladder scan post-void showed 83 mL of fluid, no significant retention. 1648: Upon reexamination the patient is still hypotensive. I discussed results and treatment plan with the patient. He verbalizes agreement and understanding. The patient will be evaluated for further management. 1654: Ordered Sodium Chloride 1000 ml @ 125 mls/hr IV, Sodium Chloride 500 ml @ 999 mls/hr IV 1700: I discussed the patient's case with Dr. Abdalla, [facility] Hospitalist. The patient will be evaluated for further management. Medical Decision The patient is a 66 year old male who presents to the ED with complaints of urinary symptoms. Differential diagnoses considered include urinary retention, renal failure, dehydration, neutropenia, electrolyte imbalance, prostatitis. There is no leukocytosis. The patient is anemic and his values today are lower than they have been in the past-hemoglobin was 9. No significant electrolyte abnormality or kidney failure. No hepatitis. Bladder scan shows some mild urinary retention, nothing requiring a Mccarty catheter placement. Urinalysis shows some hematuria, no obvious infection. Urine culture and blood cultures are pending. Orthostatic vital signs did show a drop in the blood pressure. The patient received IV saline, he remains hypotensive. I do think he is somewhat dehydrated. His presentation today may be related to dehydration, his chemotherapy, certainly, a prostate infection is a possible compounding factor. Given the hypotension that is persisting, I did think a hospital stay was warranted. I spoke to the patient and the casework supervisor. The on-call hospitalist was consulted. Medication Reconcilliation Current Medication List: was personally reviewed by me Blood Pressure Screening Patient's blood pressure: Low blood pressure Monitored by hospitalist Consults Time Called: 1656 Consulting Physician: Dr. Abdalla, [facility] Hospitalist Returned Call: 1700 I discussed the patient's case with Dr. Abdalla [facility] Hospitalist. The patient will be evaluated for further management. Impression Primary Impression: Hypotension Additional Impressions: Dehydration Dysuria Hematuria Scribe Attestation The scribe's documentation has been prepared under my direction and personally reviewed by me in its entirety. I confirm that the note above accurately reflects all work, treatment, procedures, and medical decision making performed by me. Departure Information Dispostion Being Evaluated By Hospitalist Referrals Ann Olivas M.D. (PCP) Patient Instructions My [facility] Problem Qualifiers
[2017-01-10 15:00] LABS: BASO % 0.1 %; BASO ABS # 0.01 K/uL (0-0.2); COMPLETE YES; HEMATOCRIT 29.3 % (42-52); IG% 0.2 %; LYMPH % 9.1 %; LYMPH ABS # 0.77 K/uL (1.2-3.4); MEAN CELL VOLUME 91.8 fL (80-100); MEAN CORPUSCULAR HEMOGLOBIN 28.2 pg (25-34); MEAN CORPUSCULAR HGB CONC 30.7 g/dl (32-36); MEAN PLATELET VOLUME 8.1 fL (7.4-10.4); MONO % 1.3 %; NEUT % 89.3 %; PLATELET COUNT 234 K/uL (130-400); RED BLOOD COUNT 3.19 M/uL (4.7-6.1); WHITE BLOOD COUNT 8.44 K/uL (4.8-10.8)
[2017-01-10 15:08] LABS: INR 1.1 (0.9-1.1); PARTIAL THROMBOPLASTIN RATIO 1.5
[2017-01-10 15:13] LABS: BUN/CREATININE RATIO 25.2 (10-20); CALCIUM 8.7 mg/dl (8.5-10.1); CREATININE 0.49 mg/dl (0.60-1.40); POTASSIUM 4.2 mmol/L (3.5-5.1)
[2017-01-10 15:15] LABS: ALB/GLOB RATIO 0.5 (0.9-2)
[2017-01-10 15:54] LABS: URINE APPEARANCE CLEAR (CLEAR); URINE BILIRUBIN NEG (NEG); URINE COLOR YELLOW; URINE EPITHELIAL CELL AUTO >30 /lpf (0-5); URINE NITRITE NEG (NEG); URINE SPECIFIC GRAVITY 1.013 (1.000-1.030); UROBILINOGEN NEG (NEG); ZZUR CULT IF INDIC CLEAN CATCH NO
[2017-01-10 16:15] LABS: MANUAL MICROSCOPIC REQUIRED? NO; REVIEW REQ? YES
[2017-01-10] MEDS ORDERED: SODIUM CHLORIDE 0.9% 1000ML 1,000 ML IV STA (16:54)
[2017-01-10] MEDS ORDERED: SODIUM CHLORIDE 0.9% 500ML 500 ML IV STA (16:54)
[2017-01-10] MEDS ORDERED: MAGNESIUM HYDROXIDE SUSP 30 ML UDC PO PRN (17:45)
[2017-01-10] MEDS ORDERED: ALUMINUM/MAGNESIUM/SIMETH (MAALOX MAX) 30 ML UDC PO PRN (17:45)
[2017-01-10] MEDS ORDERED: ONDANSETRON INJ 2 MG/ML 2 ML VIAL IV PRN (17:45)
[2017-01-10] MEDS ORDERED: ENOXAPARIN 80 MG/0.8 ML SYR SQ SCH (18:00)
[2017-01-10] MEDS ORDERED: ALBUTEROL HFA 8 GM INHALER INH PRN (18:00)
[2017-01-10] MEDS ORDERED: ONDANSETRON 8 MG TAB PO PRN (18:00)
--- NOTE | 2017-01-10 18:27 | History and Physical ---
History & Physical Date & Time of Service: Jan 10, 2017 at 18:02 Chief Complaint: Uti Issues,Blood In Urine Primary Care Physician: Ann Olivas M.D. History of Present Illness Source: patient, family, clinic records, hospital records This is a 66 yo m currently being treated for chemo for adenocarcinoma of unknown source and a h/o FL with stent placement x 3, CAD, PE ( recent and currently on lovenox), CHF and presenting to us with dysuria and hematuria x 2 days. The patient notes that approx 2 days prior he started to suffer from acute onset difficulty with urination. He states that he even has to bear down to urinate and it will only be a dribble. He is also suffering from frequency. He grew concerned today when he started to suffer from some hematuria. He called the cancer centre and their recommendation was evaluation in the ED. He was found to have positive blood in the UA but no gross blood. He was also hypotensive and received 2L of NSS in the ED. He had recently underwent chemotherapy for his adenocarcinoma. This was on Jan 07 2017 and this was the second round of chemo. He is being followed by Dr Lester Ray and chemo is done with Carboplatin and Pemetrexed. He also received radiation of the chest prior to receiving chemo. He was diagnosed a few months prior. He does have a history of COPD and does use 3 L of oxygen on a regular basis. He also had a recent diagnosis of PE in Oct and has been on lovenox 80 mg bid Past Medical/Surgical History Medical Problems: (1) Adenocarcinoma of unknown primary Permanent Comment: Metastatic disease to bone, liver, lungs Status post completion of radiation therapy to T5, right second and third ribs. Completed 11/14/2016. He received 3000 cGy. Status: Chronic (2) COPD (chronic obstructive pulmonary disease) Status: Chronic (3) Coronary artery disease Status: Chronic (4) Hypoxia Status: Chronic (5) Pulmonary embolism, bilateral Status: Chronic (6) Sepsis Status: Resolved Family History Cancer Social History Smoking Status: Former Smoker (40 pack year, quit 2 year prior) Smokeless Tobacco Use: No Alcohol Use: socially Drug Use: none Marital Status: Housing status: lives with significant other Occupational Status: retired Immunizations History of Influenza Vaccine: No History of Tetanus Vaccine?: No History of Pneumococcal: No History of Hepatitis B Vaccine: No Multi-Drug Resistant Organisms History of MDRO: No Allergies Coded Allergies: No Known Allergies (Verified , 12/23/16) Home Medications Scheduled Acetaminophen (Tylenol), 650 MG PO PRN Budesonide/Formoterol Fumarate (Symbicort 160/4.5 Inhaler ), 2 PUFFS INH BID Enoxaparin (Lovenox), 80 MG SQ Q12H Fentanyl (Duragesic), 100-112 MCG TOP Q72HRS Scheduled PRN Albuterol Sulfate (Proventil Hfa), 2 PUFFS INH QID PRN for Wheezing Morphine Sulfate (Morphine Sulfate), 15 MG PO Q4H PRN for Pain Ondansetron Hcl (Zofran), 8 MG PO PRN PRN for Nausea Review of Systems Constitutional: No fever Eyes: No worsening of vision ENT: No hearing loss Respiratory: No cough, No sputum, No wheezing, No shortness of breath, No dyspnea on exertion, No dyspnea at rest Cardiovascular: No chest pain Abdomen: No pain, No nausea, No vomiting, No diarrhea, No constipation Musculoskeletal: No joint pain, No muscle pain Genitourinary - Male: + hematuria, + dysuria, + urinary frequency, + urinary urgency Neurologic: + weakness, No numbness/tingling, No balance problems Psychiatric: No depression symptoms Endocrine: + fatigue Hematologic / Lymphatic: No abnormal bleeding/bruising Integumentary: No rash Physical Exam Vital Signs Date Time Temp Pulse Resp B/P (MAP) Pulse Ox O2 Delivery O2 Flow Rate FiO2 01/10/17 17:31 95 20 107/65 98 Room Air 01/10/17 15:44 85 20 116/50 97 Room Air 01/10/17 14:37 98 01/10/17 14:36 87 20 98/50 97 Room Air 99 87/45 01/10/17 14:30 95 Room Air 01/10/17 13:59 36.8 99 20 90/55 94 Nasal Cannula 3.0 General Appearance: no apparent distress, + cachetic Head: normocephalic, atraumatic Eyes: normal inspection ENT: normal ENT inspection Neck: supple Respiratory/Chest: + decreased breath sounds (very quiet breath sounds throughout), + pertinent finding (no wheezing noted no crackles at bases, uses abdominal muscles to breath) Cardiovascular: regular rate, rhythm, no murmur, normal peripheral pulses Abdomen/GI: normal bowel sounds, non tender, soft Genitourinary - Male: + pertinent finding (no prostate enlargement or tenderness) Back: normal inspection, + pertinent finding (scar from discectomy noted on lower back) Extremities/Musculoskelatal: normal inspection, no calf tenderness, normal capillary refill, no pedal edema Neurologic/Psych: alert, normal mood/affect, oriented x 3 Skin: normal color, warm/dry, no rash Lymphatic: no adenopathy Diagnostics Laboratory Results Results Past 24 Hours Test 01/10/17 14:30 01/10/17 15:40 Range/Units White Blood Count 8.44 4.8-10.8 K/uL Red Blood Count 3.19 4.7-6.1 M/uL Hemoglobin 9.0 14.0-18.0 g/dL Hematocrit 29.3 42-52 % Mean Corpuscular Volume 91.8 80-100 fL Mean Corpuscular Hemoglobin 28.2 25-34 pg Mean Corpuscular Hemoglobin Concent 30.7 32-36 g/dl Platelet Count 234 130-400 K/uL Mean Platelet Volume 8.1 7.4-10.4 fL Neutrophils (%) (Auto) 89.3 % Lymphocytes (%) (Auto) 9.1 % Monocytes (%) (Auto) 1.3 % Eosinophils (%) (Auto) 0.0 % Basophils (%) (Auto) 0.1 % Neutrophils # (Auto) 7.53 1.4-6.5 K/uL Lymphocytes # (Auto) 0.77 1.2-3.4 K/uL Monocytes # (Auto) 0.11 0.11-0.59 K/uL Eosinophils # (Auto) 0.00 0-0.5 K/uL Basophils # (Auto) 0.01 0-0.2 K/uL RDW Standard Deviation 52.8 36.4-46.3 fL RDW Coefficient of Variation 16.2 11.5-14.5 % Immature Granulocyte % (Auto) 0.2 % Immature Granulocyte # (Auto) 0.02 0.00-0.02 K/uL Prothrombin Time 12.0 9.0-12.0 SECONDS Prothromb Time International Ratio 1.1 0.9-1.1 Activated Partial Thromboplast Time 38.6 21.0-31.0 SECONDS Partial Thromboplastin Ratio 1.5 Sodium Level 134 136-145 mmol/L Potassium Level 4.2 3.5-5.1 mmol/L Chloride Level 93 98-107 mmol/L Carbon Dioxide Level 37 21-32 mmol/L Anion Gap 4.0 3-11 mmol/L Blood Urea Nitrogen 12 7-18 mg/dl Creatinine 0.49 0.60-1.40 mg/dl Est Creatinine Clear Calc Drug Dose 153.1 ml/min Estimated GFR () 132.0 Estimated GFR (Non- 113.9 BUN/Creatinine Ratio 25.2 10-20 Random Glucose 97 70-99 mg/dl Calcium Level 8.7 8.5-10.1 mg/dl Total Bilirubin 0.4 0.2-1 mg/dl Aspartate Amino Transf (AST/SGOT) 20 15-37 U/L Alanine Aminotransferase (ALT/SGPT) 18 12-78 U/L Alkaline Phosphatase 182 45-117 U/L Total Protein 6.4 6.4-8.2 gm/dl Albumin 2.1 3.4-5.0 gm/dl Globulin 4.3 2.5-4.0 gm/dl Albumin/Globulin Ratio 0.5 0.9-2 Urine Color YELLOW Urine Appearance CLEAR CLEAR Urine pH 7.0 4.5-7.5 Urine Specific [place] 1.013 1.000-1.030 Urine Protein TRACE NEG Urine Glucose (UA) NEG NEG Urine Ketones NEG NEG Urine Occult Blood 3+ NEG Urine Nitrite NEG NEG Urine Bilirubin NEG NEG Urine Urobilinogen NEG NEG Urine Leukocyte Esterase NEG NEG Urine WBC (Auto) 5-10 0-5 /hpf Urine RBC (Auto) >30 0-4 /hpf Urine Hyaline Casts (Auto) 1-5 0-5 /lpf Urine Epithelial Cells (Auto) >30 0-5 /lpf Urine Bacteria (Auto) NEG NEG Urine Renal Epithelial Cells 0-5 0-5 /lpf Microbiology Results 01/10/17 Blood Culture, Received Pending 01/10/17 Blood Culture, Ordered Pending 01/10/17 Urine Culture, Received Pending EKG NSR rate 86 QTc 426 Impression Assessment and Plan This is a 66 yo m with a h/o adenocarcinoma of unknown origin, COPD, CAD, FL, CHF, distal AAA that is presenting to us with hematuria and dysuria while on lovenox for recently diagnosed PE Hematuria with a history of PE on lovenox and possible UTI (abnormal UA) - No gross hematuria in the ED however will hold Lovenox overnight - if remains without hematuria to restart lovenox in the am - Repeat HH in am - Treat empirically with Rocephin - Prostate was not enlarged and post void in the ED was 83 cc - consider addition of tamsulosin if no improvement in urine stream Anemia, possibly of chronic disease? - BL seems to be approx 10, has been slowly lowering from 12 - Will check Iron levels in the am - Will check Vit B12 and Folate in the am Hyponatremia - NSS @ 80cc/h - did receive 2 L in the ED and unsure of current CHF status Adenocarcinoma of unknown origin - Stable at this time so will hold on Hem/ onc consult - Continue pain control with morphine and fentanyl COPD with chronic hypoxic/ hypercapnic resp failure - continue albuterol PRN - continue Symbicort - consider addition of anticholinergic such as Spiriva - BL O2 3L CAD/ H/O FL/ diastolic CHF Echo last done was in 2009 - EF 60-65% - Mild LVH - RV mod dilated with mod RV hypertrophy - Intake and outpt - daily weights DVT Prophylaxis SCD and currently on Lovenox Full code Level of Care Med/Surg Resuscitation Status FULL RESUSCITATION VTE Prophylaxis VTE Risk Assessment Done? Y/N: Yes Risk Level: High Given or contraindicated: Enoxaparin (Lovenox)SQ, SCD's Social Service Consult Cancer Patient Under [place] Note Total Time: Critical Care 30 - 74 minutes Additional Copies To Ann Olivas M.D. Reviewed: Pt Seen/Exam by Me History Pt states decreased UOP, straining, dysuria, and hematuria are new issues for him. He also states he had a blood transfusion last Friday, but that there was no urinary bleeding at that time. It was assumed at that time that his decreased Hb was related to chemo. He has a poor appetite on chemo, but tolerates what he does manage. feels he is not eating and drinking enough. Agree with HPI/ROS as noted. General Appearance: WD/WN, no apparent distress Respiratory: no respiratory distress, wheezing (expiratory) Cardiovascular: normal peripheral pulses, regular rate, rhythm Gastrointestinal: non tender, soft Extremities: non-tender, no pedal edema 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: alert, oriented x 3 Skin Characteristics: normal color, warm/dry Assessment/Plan Agree with plan as outlined above Gross hematuria with decreased UOP and dysuria, UA + only for blood Urine cx pending Bladder US pending Resident prostate exam neg for enlarged prostate, holding of flomax for now, but t/c if ongoing issues Monitor h/h Mild wheezing in an O2 dependent COPD pt, will add nebs but can hold on steroids
[2017-01-10 19:30] VITALS: BP 119/68; PULSE 90; TEMP 36.8; O2SAT 96
[2017-01-10] MEDS: SODIUM CHLORIDE 0.9% 1000ML 1,000 ML IV SCH (19:40)
[2017-01-10] MEDS ORDERED: IV FLUIDS COMPLETED PRN (20:00)
[2017-01-10] MEDS: FENTANYL PATCH REMOVE & WASTE SCH (20:44)
[2017-01-10] MEDS: FENTANYL 100 MCG/HR TDSY TD SCH (20:48)
[2017-01-10 20:49] VITALS: BP 119/68; PULSE 90; TEMP 36.8; Ht 177.8 cm; Wt 80.5 kg
[2017-01-10] MEDS: CEFTRIAXONE SOD INJ 1 GM in DEXTROSE 5% ADD-VANTAGE 50ML 50 ML IV SCH (20:57)
[2017-01-10 21:24] VITALS: O2SAT 96
[2017-01-10] MEDS: BUDESONIDE/FORMOTEROL FUMARATE 160/4.5 60 PUFFS/INHALER INH SCH (22:04)
[2017-01-11] VITALS (11 sets, daily range): BP systolic 93–119; BP diastolic 56–68; PULSE 66–98; TEMP 36.6–37.3; O2SAT 89–97
[2017-01-11] MEDS ORDERED: NURSING VERBAL MED ORDER ONE (00:45)
--- NOTE | 2017-01-11 05:44 | DIAGNOSTIC IMAGING REPORT ---
([facility]) [facility] CLINICAL HISTORY: hematuria TECHNIQUE: Ultrasound COMPARISON STUDY: None FINDINGS: Normal appearance to the bladder. Post void residual was not obtained as patient was unable to void. IMPRESSION: Negative study The above report was generated using voice recognition software. It may contain grammatical, syntax or spelling errors. Electronically signed by: Colby Martinez M.D. 01/11/2017 5:42 AM Dictated Date/Time: 01/11/2017 5:41 AM
[2017-01-11 06:02] LABS: IG% 0.4 %; LYMPH % 10.1 %; LYMPH ABS # 0.79 K/uL (1.2-3.4); MEAN CORPUSCULAR HEMOGLOBIN 27.2 pg (25-34); MEAN CORPUSCULAR HGB CONC 29.3 g/dl (32-36); MEAN PLATELET VOLUME 8.4 fL (7.4-10.4); MONO % 1.1 %; NEUT % 88.4 %; PLATELET COUNT 191 K/uL (130-400); RED BLOOD COUNT 3.01 M/uL (4.7-6.1); WHITE BLOOD COUNT 7.84 K/uL (4.8-10.8)
[2017-01-11 06:08] LABS: INR 1.1 (0.9-1.1); PARTIAL THROMBOPLASTIN RATIO 1.4; PROTHROMBIN TIME (PATIENT) 11.9 SECONDS (9.0-12.0)
[2017-01-11 06:25] LABS: BUN/CREATININE RATIO 25.1 (10-20); CALCIUM 8.5 mg/dl (8.5-10.1); CREATININE 0.41 mg/dl (0.60-1.40); POTASSIUM 3.9 mmol/L (3.5-5.1)
[2017-01-11 06:32] LABS: ALB/GLOB RATIO 0.5 (0.9-2); FERRITIN 1108.4 ng/ml (8.0-388.0)
[2017-01-11] MEDS: SODIUM CHLORIDE 0.9% 1000ML 1,000 ML IV SCH ×2 (06:34→19:28)
[2017-01-11 06:44] LABS: COMPLETE YES
[2017-01-11] MEDS: ALBUT/IPRATROP 3MG/0.5MG NEB 3 ML VIAL INH SCH ×4 (07:21→19:11)
--- NOTE | 2017-01-11 07:37 | Progress Note ---
Subjective Date of Service: Jan 11, 2017. Subjective Patient has persistent problems avoiding voiding lower amounts but his post void residuals have been acceptable his pain is mostly suprapubic and he is not exhibiting any gross hematuria since admission and attempted Mccarty catheterization Problem List Medical Problems: (1) Anemia Status: Acute (2) Bilateral pulmonary embolism Status: Acute (3) Dehydration Status: Acute (4) Dehydration Status: Acute (5) Dysuria Status: Acute (6) Generalized weakness Status: Acute (7) Hematuria Status: Acute (8) Hematuria Status: Acute (9) Hypotension Status: Acute (10) Hypotension Status: Acute (11) Hypoxia Status: Chronic (12) Left rib fracture Status: Acute (13) Lung cancer Status: Acute (14) Mediastinal lymphadenopathy Status: Acute (15) Metastatic lung cancer (metastasis from lung to other site) Status: Acute (16) Non-traumatic compression fracture of T5 thoracic vertebra Status: Acute (17) Osteolytic 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 Status: Acute (18) Pathological fracture of rib of right side Status: Acute (19) Pulmonary nodules Status: Acute (20) SVT (supraventricular tachycardia) Status: Acute Review of Systems Constitutional: No fever, No chills Cardiac: No chest pain, No orthopnea Abdomen: + pain, No nausea Male : + dysuria, + hematuria Objective Vital Signs Date Time Temp Pulse Resp B/P (MAP) Pulse Ox O2 Delivery O2 Flow Rate FiO2 01/11/17 07:27 86 20 110/56 (74) 89 Nasal Cannula 2.0 01/11/17 03:59 36.6 66 18 119/68 (85) 95 Nasal Cannula 3.0 01/11/17 00:05 96 Nasal Cannula 3.0 01/10/17 21:24 96 Nasal Cannula 3.0 01/10/17 20:49 36.8 90 18 119/68 01/10/17 19:30 36.8 90 18 119/68 (85) 96 Nasal Cannula 3.0 01/10/17 18:23 88 20 116/56 99 01/10/17 17:31 95 20 107/65 98 Nasal Cannula 3.0 01/10/17 15:44 85 20 116/50 97 Nasal Cannula 3.0 01/10/17 14:37 98 01/10/17 14:36 87 20 98/50 97 Nasal Cannula 3.0 99 87/45 01/10/17 14:30 95 Nasal Cannula 3.0 01/10/17 13:59 36.8 99 20 90/55 94 Nasal Cannula 3.0 Physical Exam General Appearance: WD/WN, + moderate distress Neck: supple, no JVD Respiratory/Chest: chest non-tender, lungs clear, normal breath sounds Cardiovascular: regular rate, rhythm, no murmur Abdomen: normal bowel sounds, no organomegaly, + tenderness Extremities: no pedal edema, no calf tenderness 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: alert, oriented x 3 Laboratory Results Last 24 Hours Test 01/10/17 14:30 01/10/17 15:40 01/11/17 05:34 White Blood Count 8.44 K/uL 7.84 K/uL Red Blood Count 3.19 M/uL 3.01 M/uL Hemoglobin 9.0 g/dL 8.2 g/dL Hematocrit 29.3 % 28.0 % Mean Corpuscular Volume 91.8 fL 93.0 fL Mean Corpuscular Hemoglobin 28.2 pg 27.2 pg Mean Corpuscular Hemoglobin Concent 30.7 g/dl 29.3 g/dl Platelet Count 234 K/uL 191 K/uL Mean Platelet Volume 8.1 fL 8.4 fL Neutrophils (%) (Auto) 89.3 % 88.4 % Lymphocytes (%) (Auto) 9.1 % 10.1 % Monocytes (%) (Auto) 1.3 % 1.1 % Eosinophils (%) (Auto) 0.0 % 0.0 % Basophils (%) (Auto) 0.1 % 0.0 % Neutrophils # (Auto) 7.53 K/uL 6.93 K/uL Lymphocytes # (Auto) 0.77 K/uL 0.79 K/uL Monocytes # (Auto) 0.11 K/uL 0.09 K/uL Eosinophils # (Auto) 0.00 K/uL 0.00 K/uL Basophils # (Auto) 0.01 K/uL 0.00 K/uL RDW Standard Deviation 52.8 fL 54.4 fL RDW Coefficient of Variation 16.2 % 16.3 % Immature Granulocyte % (Auto) 0.2 % 0.4 % Immature Granulocyte # (Auto) 0.02 K/uL 0.03 K/uL Prothrombin Time 12.0 SECONDS 11.9 SECONDS Prothromb Time International Ratio 1.1 1.1 Activated Partial Thromboplast Time 38.6 SECONDS 36.6 SECONDS Partial Thromboplastin Ratio 1.5 1.4 Sodium Level 134 mmol/L 136 mmol/L Potassium Level 4.2 mmol/L 3.9 mmol/L Chloride Level 93 mmol/L 96 mmol/L Carbon Dioxide Level 37 mmol/L 36 mmol/L Anion Gap 4.0 mmol/L 4.0 mmol/L Blood Urea Nitrogen 12 mg/dl 10 mg/dl Creatinine 0.49 mg/dl 0.41 mg/dl Est Creatinine Clear Calc Drug Dose 153.1 ml/min 183.0 ml/min Estimated GFR () 132.0 142.0 Estimated GFR (Non- 113.9 122.5 BUN/Creatinine Ratio 25.2 25.1 Random Glucose 97 mg/dl 89 mg/dl Calcium Level 8.7 mg/dl 8.5 mg/dl Total Bilirubin 0.4 mg/dl 0.3 mg/dl Aspartate Amino Transf (AST/SGOT) 20 U/L 15 U/L Alanine Aminotransferase (ALT/SGPT) 18 U/L 14 U/L Alkaline Phosphatase 182 U/L 160 U/L Total Protein 6.4 gm/dl 5.8 gm/dl Albumin 2.1 gm/dl 1.9 gm/dl Globulin 4.3 gm/dl 3.9 gm/dl Albumin/Globulin Ratio 0.5 0.5 Urine Color YELLOW Urine Appearance CLEAR Urine pH 7.0 Urine Specific [place] 1.013 Urine Protein TRACE Urine Glucose (UA) NEG Urine Ketones NEG Urine Occult Blood 3+ Urine Nitrite NEG Urine Bilirubin NEG Urine Urobilinogen NEG Urine Leukocyte Esterase NEG Urine WBC (Auto) 5-10 /hpf Urine RBC (Auto) >30 /hpf Urine Hyaline Casts (Auto) 1-5 /lpf Urine Epithelial Cells (Auto) >30 /lpf Urine Bacteria (Auto) NEG Urine Renal Epithelial Cells 0-5 /lpf Red Blood Cell Morphology Unremarkable Iron Level 143 mcg/dl Total Iron Binding Capacity 140 mcg/dl Transferrin 108 mg/dl Transferrin % Saturation 95 % Ferritin 1108.4 ng/ml Assessment and Plan This is a 66 yo m with a h/o adenocarcinoma of unknown origin, COPD, CAD, [place], CHF, distal AAA that is presenting to us with hematuria and dysuria while on lovenox for recently diagnosed PE Hematuria with a history of PE on lovenox and possible UTI (abnormal UA), hold Lovenox overnight iv rocephin, add flomax, offered urology consult pt wishes to milla Anemia, of chronic disease Adenocarcinoma, stable at this point but maybe nearing jose from chemo Hyponatremia COPD with chronic hypoxic/ hypercapnic resp failure, seems stable, Symbicort O2 3L CAD/ H/O [place]/ diastolic CHF EF 60-65% DVT Prophylaxis SCD Full code
[2017-01-11] MEDS: BUDESONIDE/FORMOTEROL FUMARATE 160/4.5 60 PUFFS/INHALER INH SCH ×2 (09:04→20:25)
[2017-01-11] MEDS: CHECK FENTANYL PATCH PLACEMENT SCH ×4 (09:05→23:39)
[2017-01-11] MEDS ORDERED: TAMSULOSIN HCL 0.4 MG CAP PO ONE (15:00)
[2017-01-11] MEDS: MoRPHine SULFATE IR 15 MG TAB (IMMEDIATE RELEASE) PO PRN (16:29)
[2017-01-11] MEDS: TAMSULOSIN HCL 0.4 MG CAP PO SCH (20:25)
[2017-01-11] MEDS: CEFTRIAXONE SOD INJ 1 GM in DEXTROSE 5% ADD-VANTAGE 50ML 50 ML IV SCH (20:25)
[2017-01-12] VITALS (9 sets, daily range): BP systolic 98–112; BP diastolic 57–63; PULSE 64–97; TEMP 36–37.1; O2SAT 94–97
[2017-01-12] MEDS: ALBUT/IPRATROP 3MG/0.5MG NEB 3 ML VIAL INH SCH ×4 (07:23→20:00)
[2017-01-12] MEDS: BUDESONIDE/FORMOTEROL FUMARATE 160/4.5 60 PUFFS/INHALER INH SCH ×2 (08:39→19:55)
[2017-01-12] MEDS: CHECK FENTANYL PATCH PLACEMENT SCH ×2 (08:41→15:01)
[2017-01-12] MEDS: SODIUM CHLORIDE 0.9% 1000ML 1,000 ML IV SCH ×2 (08:42→22:25)
[2017-01-12] MEDS: MoRPHine SULFATE IR 15 MG TAB (IMMEDIATE RELEASE) PO PRN (08:42)
--- NOTE | 2017-01-12 16:09 | Progress Note ---
Subjective Date of Service: Jan 12, 2017. Subjective this pt is concerned about continued dysuria, he has had less hematuria and is also worried about his lower bp that maybe encouraged by the flomax Problem List Medical Problems: (1) Anemia Status: Acute (2) Bilateral pulmonary embolism Status: Acute (3) Dehydration Status: Acute (4) Dehydration Status: Acute (5) Dysuria Status: Acute (6) Generalized weakness Status: Acute (7) Hematuria Status: Acute (8) Hematuria Status: Acute (9) Hypotension Status: Acute (10) Hypotension Status: Acute (11) Hypoxia Status: Chronic (12) Left rib fracture Status: Acute (13) Lung cancer Status: Acute (14) Mediastinal lymphadenopathy Status: Acute (15) Metastatic lung cancer (metastasis from lung to other site) Status: Acute (16) Non-traumatic compression fracture of T5 thoracic vertebra Status: Acute (17) Osteolytic 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 Status: Acute (18) Pathological fracture of rib of right side Status: Acute (19) Pulmonary nodules Status: Acute (20) SVT (supraventricular tachycardia) Status: Acute Review of Systems Constitutional: No fever, No chills Cardiac: No chest pain, No orthopnea Male : + dysuria, + slowing stream, No incontinence, No hematuria Objective Vital Signs Date Time Temp Pulse Resp B/P (MAP) Pulse Ox O2 Delivery O2 Flow Rate FiO2 01/12/17 15:06 82 16 96 Nasal Cannula 3.0 01/12/17 15:03 Nasal Cannula 3.0 01/12/17 11:51 36.8 64 18 99/63 (75) 97 01/12/17 11:24 85 16 96 Nasal Cannula 3.0 01/12/17 08:40 Nasal Cannula 3.0 01/12/17 07:23 80 16 96 Nasal Cannula 3.0 01/12/17 07:21 36.7 89 18 99/58 (72) 96 3.0 01/12/17 04:16 36.5 67 18 112/62 (79) 95 01/12/17 00:00 Nasal Cannula 3.0 01/11/17 23:19 36.9 68 18 112/64 (80) 96 Nasal Cannula 3.0 01/11/17 20:00 Nasal Cannula 3.0 01/11/17 19:11 94 16 96 Nasal Cannula 3.0 01/11/17 19:10 36.6 89 18 105/59 (74) 96 01/11/17 16:38 Nasal Cannula 3.0 Physical Exam General Appearance: WD/WN, + mild distress Eyes: PERRL, EOMI Respiratory/Chest: chest non-tender, lungs clear, normal breath sounds Cardiovascular: regular rate, rhythm, no murmur Abdomen: normal bowel sounds, non tender, soft Extremities: no pedal edema, no calf tenderness 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: alert, oriented x 3 Assessment and Plan This is a 66 yo m with a h/o adenocarcinoma of unknown origin, COPD, CAD, CT, CHF, distal AAA that is presenting to us with hematuria and dysuria while on lovenox for recently diagnosed PE, he had a traumatic attempt at hoffmann insertion that likely exacerbated his dysuria Hematuria with a history of PE on lovenox and possible UTI (abnormal UA), held Lovenox urine cleared, restarted in [place] of 01/12, if hematuria returns will need Urology consult continue iv rocephin but culture is negative ( it was collected after antibiotics started) , added flomax that maybe lowering blood pressure Anemia, of chronic disease stable Adenocarcinoma, follow as is s/p recent chemo, no leukopenia, or platelet issues Hyponatremia resolved as was minor COPD with chronic hypoxic/ hypercapnic resp failure, seems stable, Symbicort O2 3L CAD/ H/O CT/ diastolic CHF EF 60-65% DVT Prophylaxis SCD restarting lovenox Full code
[2017-01-12] MEDS: ENOXAPARIN 80 MG/0.8 ML SYR SQ SCH (19:55)
[2017-01-12] MEDS: CEFTRIAXONE SOD INJ 1 GM in DEXTROSE 5% ADD-VANTAGE 50ML 50 ML IV SCH (19:55)
[2017-01-12] MEDS: TAMSULOSIN HCL 0.4 MG CAP PO SCH (19:56)
[2017-01-13] VITALS (21 sets, daily range): BP systolic 98–122; BP diastolic 55–72; PULSE 78–97; TEMP 36.4–38.1; O2SAT 80–99
[2017-01-13] MEDS: CHECK FENTANYL PATCH PLACEMENT SCH ×4 (00:46→23:24)
[2017-01-13] MEDS: ALBUT/IPRATROP 3MG/0.5MG NEB 3 ML VIAL INH SCH ×4 (07:15→20:10)
[2017-01-13] MEDS: BUDESONIDE/FORMOTEROL FUMARATE 160/4.5 60 PUFFS/INHALER INH SCH ×2 (08:32→21:06)
[2017-01-13] MEDS: ACETAMINOPHEN 325 MG TAB PO PRN (08:33)
[2017-01-13] MEDS: ENOXAPARIN 80 MG/0.8 ML SYR SQ SCH ×2 (08:33→21:06)
[2017-01-13 08:44] LABS: BLOOD UREA NITROGEN 9 mg/dl (7-18); BUN/CREATININE RATIO 32.7 (10-20); CALCIUM 8.6 mg/dl (8.5-10.1); CARBON DIOXIDE 34 mmol/L (21-32); CHLORIDE 98 mmol/L (98-107); CREATININE 0.26 mg/dl (0.60-1.40); GLUCOSE 89 mg/dl (70-99); POTASSIUM 3.7 mmol/L (3.5-5.1); SODIUM 135 mmol/L (136-145)
[2017-01-13 08:53] LABS: MEAN CELL VOLUME 90.9 fL (80-100); MEAN CORPUSCULAR HGB CONC 30.8 g/dl (32-36); MEAN PLATELET VOLUME 8.6 fL (7.4-10.4); PLATELET COUNT 113 K/uL (130-400); RED BLOOD COUNT 2.64 M/uL (4.7-6.1); WHITE BLOOD COUNT 3.58 K/uL (4.8-10.8)
--- NOTE | 2017-01-13 10:30 | Clinical Documentation Query ---
Dr. CORDERO SOCORRO : CLINICAL DOCUMENTATION QUERIES QUERY 1 OF 2 Patient is a 66 year old male admitted with hematuria in the setting of Lovenox therapy for history of PE. Lovenox was held and the urine cleared. Documentation includes "Hematuria with a history of PE on lovenox". As clinically appropriate, consider clarification as suggested below. That is, if you feel the hematuria was or likely was DUE TO Lovenox therapy. Thank you. In your clinical opinion is this patient being managed for: (x ) Hematuria, (likely/possibly) due to Lovenox therapy ( ) Not Agree ( ) Other explanation of clinical findings (Please Explain) ( ) Unable to determine (Please Define) ( ) Need to Discuss The medical record reflects the following clinical findings, treatment, and risk factors. Clinical Indicators: As above Treatment: Hold Lovenox, serial hematology Risk Factors: Lovenox therapy QUERY 2 OF 2 Patient with known adenocarcinoma of unknown origin. Second round of chemotherapy with Carboplatin and Pemetrexed recieved on 01/07/17. Pancytopenia noted on a.m. labs. Please clarify as clinically appropriate. In your clinical opinion is this patient being managed for: ( x ) Chemotherapy induced pancytopenia ( ) Not Agree ( ) Other explanation of clinical findings (Please Explain) ( ) Unable to determine (Please Define) ( ) Need to Discuss The medical record reflects the following clinical findings, treatment, and risk factors. Clinical Indicators: As above Treatment: Serial hematology Risk Factors: Chemotherapy administration Please clarify and document your clinical opinion in the progress notes and discharge summary. Terms such as "probable", "suspected", "likely", "questionable", "possible", or "still to be ruled out" are acceptable. IF IN AGREEMENT, YOU MUST DOCUMENT ABOVE DIAGNOSTIC STATEMENT IN DAILY PROGRESS NOTES AND DISCHARGE SUMMARY. This document is not part of the patient's record. Thank You, Magan Fiore, RN [phone]
[2017-01-13] MEDS: SODIUM CHLORIDE 0.9% 1000ML 1,000 ML IV SCH (11:13)
--- NOTE | 2017-01-13 15:08 | Progress Note ---
Subjective Date of Service: Jan 13, 2017. Subjective Pt evaluation today including: conversation w/ patient, conversation w/ corporate consultant Pt feeling overall improved from [employer]TER, but still having burning with urination. No further bleeding. Still with decreased stream but improved. Pt denies fever, SOB, chest pain, abd pain, n/v/c/d, LE pain or swelling. Tolerating PO without issue. Problem List Medical Problems: (1) Anemia Status: Acute (2) Bilateral pulmonary embolism Status: Acute (3) Dehydration Status: Acute (4) Dehydration Status: Acute (5) Dysuria Status: Acute (6) Generalized weakness Status: Acute (7) Hematuria Status: Acute (8) Hematuria Status: Acute (9) Hypotension Status: Acute (10) Hypotension Status: Acute (11) Hypoxia Status: Chronic (12) Left rib fracture Status: Acute (13) Lung cancer Status: Acute (14) Mediastinal lymphadenopathy Status: Acute (15) Metastatic lung cancer (metastasis from lung to other site) Status: Acute (16) Non-traumatic compression fracture of T5 thoracic vertebra Status: Acute (17) Osteolytic 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 Status: Acute (18) Pathological fracture of rib of right side Status: Acute (19) Pulmonary nodules Status: Acute (20) SVT (supraventricular tachycardia) Status: Acute Review of Systems All Other Systems: Reviewed and Negative Objective Vital Signs Date Time Temp Pulse Resp B/P (MAP) Pulse Ox O2 Delivery O2 Flow Rate FiO2 01/13/17 11:41 Nasal Cannula 3.0 01/13/17 11:27 36.4 78 20 98/59 (72) 96 Nasal Cannula 3.0 01/13/17 11:14 36.4 01/13/17 11:12 88 16 96 Nasal Cannula 3.0 01/13/17 07:18 38.1 79 20 113/71 (85) 95 01/13/17 07:17 79 16 80 Room Air 01/13/17 04:30 36.5 90 18 112/69 (83) 94 Nasal Cannula 3.0 01/13/17 00:00 Nasal Cannula 3.0 01/12/17 23:34 36.6 95 16 103/63 (76) 95 Nasal Cannula 3.0 01/12/17 20:00 Nasal Cannula 3.0 01/12/17 19:54 37.1 97 18 100/63 (75) 95 Nasal Cannula 3.0 01/12/17 16:00 36.0 96 18 98/57 (71) 94 Nasal Cannula 3.0 01/12/17 15:06 82 16 96 Nasal Cannula 3.0 Physical Exam General Appearance: WD/WN, no apparent distress Eyes: normal inspection, EOMI ENT: hearing grossly normal Respiratory/Chest: normal breath sounds, no respiratory distress Cardiovascular: regular rate, rhythm, no edema Abdomen: non tender, soft Extremities: non-tender, no pedal edema 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: alert, normal mood/affect, oriented x 3 Skin: normal color, warm/dry Laboratory Results Last 24 Hours Test 01/13/17 08:15 White Blood Count 3.58 K/uL Red Blood Count 2.64 M/uL Hemoglobin 7.4 g/dL Hematocrit 24.0 % Mean Corpuscular Volume 90.9 fL Mean Corpuscular Hemoglobin 28.0 pg Mean Corpuscular Hemoglobin Concent 30.8 g/dl RDW Standard Deviation 52.7 fL RDW Coefficient of Variation 16.1 % Platelet Count 113 K/uL Mean Platelet Volume 8.6 fL Sodium Level 135 mmol/L Potassium Level 3.7 mmol/L Chloride Level 98 mmol/L Carbon Dioxide Level 34 mmol/L Anion Gap 3.0 mmol/L Blood Urea Nitrogen 9 mg/dl Creatinine 0.26 mg/dl Est Creatinine Clear Calc Drug Dose 288.6 ml/min Estimated GFR () > 150.0 Estimated GFR (Non- 147.8 BUN/Creatinine Ratio 32.7 Random Glucose 89 mg/dl Calcium Level 8.6 mg/dl Assessment and Plan This is a 66 yo m with a h/o adenocarcinoma of unknown origin, COPD, CAD, [place], CHF, distal AAA that is presenting to us with hematuria and dysuria while on lovenox for recently diagnosed PE, he had a traumatic attempt at hoffmann insertion that likely exacerbated his dysuria Hematuria with a history of PE on lovenox and possible UTI (abnormal UA) held Lovenox and urine cleared, now restarted in [place] of 01/12--bleeding has not restarted, however Hb has dropped Transfuse 2 units PRBC If hematuria returns will need Urology consult continue iv rocephin but culture is negative ( it was collected after antibiotics started) added flomax, likely lowering blood pressure Pt 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
--- NOTE | 2017-01-13 16:33 | Oncology Consultation ---
Oncology/Heme Consultation Date of Consultation: Jan 13, 2017. Attending Physician: Diane Abdalla DO Reason for Consultation: Adenocarcinoma of unknown primary Anemia History of Present Illness Mr. Hagan is a delightful 66-year-old gentleman that presented in August of this year with pain in his right chest wall with x-rays that revealed bilateral pulmonary emboli as well as irregular pulmonary and pleural-based nodules in the right hilar mass. In mid October he underwent a CT-guided FNA of the right 11th rib mass and it revealed findings consistent with metastatic adenocarcinoma. In addition CT scans of the abdomen and pelvis revealed several hypodense liver lesions and numerous lytic skeletal lesions. He has received palliative radiation therapy to the 11th rib as well as the thoracic spine at T5. Bronchoscopy done in mid November revealed a subpleural right upper lobe mass that revealed biopsies consistent with poorly differential showed adenocarcinoma. This tumor is biomarker negative. He has received pemetrexed with carboplatinum now on 2 occasions with the last treatment being last Friday. He presents now after having difficulty urinating. He has been on Lovenox for pulmonary emboli. He is now able to urinate. It was felt that perhaps he may have had blockage secondary to urinary hemorrhage from a traumatic catheter placement. He states he is able to urinate now. Along the way however his hemoglobin was noted to be drifting down and we are asked to comment concerning that. He is currently being transfused. Past Medical/Surgical History Medical Problems: (1) Anemia Status: Acute (2) Bilateral pulmonary embolism Status: Acute (3) Dehydration Status: Acute (4) Dehydration Status: Acute (5) Dysuria Status: Acute (6) Generalized weakness Status: Acute (7) Hematuria Status: Acute (8) Hematuria Status: Acute (9) Hypotension Status: Acute (10) Hypotension Status: Acute (11) Hypoxia Status: Chronic (12) Left rib fracture Status: Acute (13) Lung cancer Status: Acute (14) Mediastinal lymphadenopathy Status: Acute (15) Metastatic lung cancer (metastasis from lung to other site) Status: Acute (16) Non-traumatic compression fracture of T5 thoracic vertebra Status: Acute (17) Osteolytic 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 Status: Acute (18) Pathological fracture of rib of right side Status: Acute (19) Pulmonary nodules Status: Acute (20) SVT (supraventricular tachycardia) Status: Acute Family History Cancer Social History Smoking Status: Never Smoker Smokeless Tobacco Use: No Alcohol Use: socially Drug Use: none Marital Status: Housing Status: lives with significant other Occupation Status: retired Allergies Coded Allergies: No Known Allergies (Verified , 12/23/16) Home Medications Scheduled Acetaminophen (Tylenol), 650 MG PO PRN Budesonide/Formoterol Fumarate (Symbicort 160/4.5 Inhaler ), 2 PUFFS INH BID Enoxaparin (Lovenox), 80 MG SQ Q12H Fentanyl (Duragesic), 100-112 MCG TOP Q72HRS Scheduled PRN Albuterol Sulfate (Proventil Hfa), 2 PUFFS INH QID PRN for Wheezing Morphine Sulfate (Morphine Sulfate), 15 MG PO Q4H PRN for Pain Ondansetron Hcl (Zofran), 8 MG PO PRN PRN for Nausea Current Inpatient Medications Current Inpatient Medications Medications (Trade) Dose Ordered Sig/Abbi Route Start Time Stop Time Status Last Admin Dose Admin Acetaminophen (Tylenol Tab) 650 mg Q4H PRN PO 01/10/17 17:45 02/09/17 17:44 01/13/17 08:33 650 MG Al Hydrox/Mg Hydrox/Simethicone (Maalox Max Susp) 15 ml Q4H PRN PO 01/10/17 17:45 02/09/17 17:44 Magnesium Hydroxide (Milk Of Magnesia Susp) 30 ml Q6H PRN PO 01/10/17 17:45 02/09/17 17:44 Ondansetron HCl (Zofran Inj) 4 mg Q6H PRN IV 01/10/17 17:45 02/09/17 17:44 Albuterol (Ventolin Hfa Inhaler) 2 puffs QID PRN INH 01/10/17 18:00 02/09/17 17:59 Budesonide/ Formoterol Fumarate (Symbicort 160/ 4.5 Inh) 2 puffs BID INH 01/10/17 20:00 02/09/17 20:59 01/13/17 08:32 2 PUFFS Fentanyl (Duragesic Patch) 100 mcg Q3D@1999 TD 01/10/17 20:00 01/24/17 19:59 01/10/17 20:48 100 MCG Morphine Sulfate (MoRPHine SULFATE IR TAB) 15 mg Q4H PRN PO 01/10/17 18:00 01/24/17 17:59 01/12/17 08:42 15 MG Ondansetron HCl (Zofran Tab) 8 mg PRN PRN PO 01/10/17 18:00 02/09/17 17:59 Sodium Chloride 1,000 ml @ 75 mls/hr [id number] IV 01/10/17 18:00 02/09/17 17:59 01/13/17 11:13 75 MLS/HR Ceftriaxone Sodium 1 gm/ Dextrose 50 ml @ 100 mls/hr Q24H IV 01/10/17 20:00 01/20/17 19:59 01/12/17 19:55 100 MLS/HR Miscellaneous (Fentanyl Patch Remove & Waste) 1 ea Q3D@1959 N/A 01/10/17 19:59 02/09/17 19:58 01/10/17 20:44 1 EA Miscellaneous Information (Check Fentanyl Patch Placement) 1 ea QS N/A 01/11/17 00:00 02/10/17 00:00 01/13/17 08:32 1 EA Miscellaneous (Iv Fluids Completed) 1 ea PRN PRN N/A 01/10/17 20:00 01/10/18 19:59 Albuterol/ Ipratropium (Duoneb) 3 ml QIDR INH 01/11/17 08:00 02/10/17 07:59 01/13/17 15:27 3 ML Heparin Sodium (Porcine) (Heparin 100 Unit/ml 5ml Flush) 5 ml PRN PRN IV 01/11/17 00:30 02/10/17 00:29 Tamsulosin HCl (Flomax Cap) 0.4 mg HS PO 01/11/17 21:00 02/10/17 20:59 01/12/17 19:56 0.4 MG Enoxaparin Sodium (Lovenox Inj) 80 mg Q12H SQ 01/12/17 20:00 02/11/17 19:59 01/13/17 08:33 80 MG Review of Systems Constitutional: Negative for weight loss, night sweats, or fever Eyes: Negative for event change of vision ENT: Negative for epistaxis, nasal discharge, sore throat, or deafness Cardiovascular: Negative for chest pain, palpitations, dizziness, diaphoresis Respiratory: Negative for new shortness of breath,hemoptysis, or purulent cough Gastrointestinal: Negative for diarrhea, hematemesis, melena, nausea, vomiting , or dyspepsia Integumentary (skin): Negative for rash or jaundice discoloration Genitourinary: Negative for urinary frequency, he has had hematuria but he states that has resolved Neurological: Negative for weakness, seizure activity, headache, or dizziness Lymphatic/Hematologic: Negative for petechiae, bleeding or new adenopathy Musculoskeletal: Negative for new joint or back pain Allergic/Immunologic: Negative for unusual rash or pruritis. Physical Exam Date Time Temp Pulse Resp B/P (MAP) Pulse Ox O2 Delivery O2 Flow Rate FiO2 01/13/17 15:54 85 16 96 Nasal Cannula 3.0 01/13/17 15:09 36.6 92 18 118/64 (82) 96 Nasal Cannula 3.0 01/13/17 15:00 36.6 92 18 118/64 01/13/17 11:41 Nasal Cannula 3.0 01/13/17 11:27 36.4 78 20 98/59 (72) 96 Nasal Cannula 3.0 01/13/17 11:14 36.4 01/13/17 11:12 88 16 96 Nasal Cannula 3.0 01/13/17 07:18 38.1 79 20 113/71 (85) 95 01/13/17 07:17 79 16 80 Room Air 01/13/17 04:30 36.5 90 18 112/69 (83) 94 Nasal Cannula 3.0 01/13/17 00:00 Nasal Cannula 3.0 01/12/17 23:34 36.6 95 16 103/63 (76) 95 Nasal Cannula 3.0 01/12/17 20:00 Nasal Cannula 3.0 01/12/17 19:54 37.1 97 18 100/63 (75) 95 Nasal Cannula 3.0 Constitutional: vitals are stable. Eyes: Eyes are EVE EOMI without conjuctival erythema or icterus. ENT: External examination was negative for masses. Neck: Negative for masses or palpable thyromegaly Respiratory: Lung sounds were generally clear bilaterally but with decreased sounds bilaterally. Cardiovascular: Heart was RRR without significant murmur, gallops aoe rubs Gastrointestinal: No palpable hepatic or splenomegaly. The abdomen was soft with normal bowel sounds. Lymphatic system: there was no palpable peripheral lymphadenopathy Musculoskeletal System: The musculoskeletal system seemed concordant with age. Skin: The skin was negative for jaundice. Neurologic exam: The exam was negative for any focal findings. Deep tendon reflexes were equal and symmetrical. Psychiatric exam: Was essentially negative with normal mood and effect. Extremities: Negative for edema erythema Laboratory Results Last 24 Hours Test 01/13/17 08:15 White Blood Count 3.58 K/uL Red Blood Count 2.64 M/uL Hemoglobin 7.4 g/dL Hematocrit 24.0 % Mean Corpuscular Volume 90.9 fL Mean Corpuscular Hemoglobin 28.0 pg Mean Corpuscular Hemoglobin Concent 30.8 g/dl RDW Standard Deviation 52.7 fL RDW Coefficient of Variation 16.1 % Platelet Count 113 K/uL Mean Platelet Volume 8.6 fL Sodium Level 135 mmol/L Potassium Level 3.7 mmol/L Chloride Level 98 mmol/L Carbon Dioxide Level 34 mmol/L Anion Gap 3.0 mmol/L Blood Urea Nitrogen 9 mg/dl Creatinine 0.26 mg/dl Est Creatinine Clear Calc Drug Dose 288.6 ml/min Estimated GFR () > 150.0 Estimated GFR (Non- 147.8 BUN/Creatinine Ratio 32.7 Random Glucose 89 mg/dl Calcium Level 8.6 mg/dl Assessment & Plan There is been no overt bleeding recently. His abdomen is soft. I suspect the hemoglobin drifting down is a result of hydration along with the effects of recent chemotherapy. His platelet count has also drifted 113,000. He is currently being transfused. I do suspect that his marrow is also involved with this disease. Subsequently marrow recovery may be somewhat sluggish. I also suspect that since he is now urinating and back on anticoagulation that he can probably be discharged in the very near future.
[2017-01-13] MEDS: FENTANYL PATCH REMOVE & WASTE SCH (19:59)
[2017-01-13] MEDS: FENTANYL 100 MCG/HR TDSY TD SCH (21:06)
[2017-01-13] MEDS: CEFTRIAXONE SOD INJ 1 GM in DEXTROSE 5% ADD-VANTAGE 50ML 50 ML IV SCH (21:06)
[2017-01-13] MEDS: TAMSULOSIN HCL 0.4 MG CAP PO SCH (21:07)
[2017-01-14] VITALS (9 sets, daily range): BP systolic 103–110; BP diastolic 56–67; PULSE 70–91; TEMP 36.4–38.4; O2SAT 91–97
[2017-01-14] MEDS: SODIUM CHLORIDE 0.9% 1000ML 1,000 ML IV SCH ×2 (03:21→15:39)
[2017-01-14 06:17] LABS: HEMATOCRIT 26.3 % (42-52)
[2017-01-14] MEDS: ALBUT/IPRATROP 3MG/0.5MG NEB 3 ML VIAL INH SCH ×2 (07:09→11:03)
[2017-01-14] MEDS: CHECK FENTANYL PATCH PLACEMENT SCH ×2 (08:17→15:40)
[2017-01-14] MEDS: BUDESONIDE/FORMOTEROL FUMARATE 160/4.5 60 PUFFS/INHALER INH SCH ×2 (08:18→19:48)
[2017-01-14] MEDS: ENOXAPARIN 80 MG/0.8 ML SYR SQ SCH ×2 (08:38→19:53)
[2017-01-14 14:56] LABS: HEMATOCRIT 25.7 % (42-52)
[2017-01-14] MEDS ORDERED: ALBUT/IPRATROP 3MG/0.5MG NEB 3 ML VIAL INH PRN (16:15)
--- NOTE | 2017-01-14 17:10 | Progress Note ---
Subjective Date of Service: Jan 14, 2017. Subjective Pt evaluation today including: conversation w/ patient Pt feels his stream continues to improve. Ongoing burning with urination. No further bleeding. Tolerating PO without issue. Pt denies fever, SOB, chest pain, abd pain, n/v/c/d, LE pain or swelling. Problem List Medical Problems: (1) Anemia Status: Acute (2) Bilateral pulmonary embolism Status: Acute (3) Dehydration Status: Acute (4) Dehydration Status: Acute (5) Dysuria Status: Acute (6) Generalized weakness Status: Acute (7) Hematuria Status: Acute (8) Hematuria Status: Acute (9) Hypotension Status: Acute (10) Hypotension Status: Acute (11) Hypoxia Status: Chronic (12) Left rib fracture Status: Acute (13) Lung cancer Status: Acute (14) Mediastinal lymphadenopathy Status: Acute (15) Metastatic lung cancer (metastasis from lung to other site) Status: Acute (16) Non-traumatic compression fracture of T5 thoracic vertebra Status: Acute (17) Osteolytic 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 Status: Acute (18) Pathological fracture of rib of right side Status: Acute (19) Pulmonary nodules Status: Acute (20) SVT (supraventricular tachycardia) Status: Acute Review of Systems All Other Systems: Reviewed and Negative Objective Vital Signs Date Time Temp Pulse Resp B/P (MAP) Pulse Ox O2 Delivery O2 Flow Rate FiO2 01/14/17 16:00 Nasal Cannula 3.0 01/14/17 15:32 88 97 01/14/17 15:20 82 18 95 Nasal Cannula 3.0 01/14/17 15:07 36.4 74 20 103/64 (77) 96 Nasal Cannula 3.0 01/14/17 11:03 87 16 96 Nasal Cannula 3.0 01/14/17 08:41 91 Nasal Cannula 3.0 01/14/17 08:14 36.8 86 16 105/56 (72) 95 Nasal Cannula 3.0 01/14/17 07:10 79 16 94 Nasal Cannula 3.0 01/14/17 04:21 37.0 70 18 110/62 (78) 97 Nasal Cannula 3.0 01/13/17 23:35 36.9 90 20 111/65 (80) 94 Nasal Cannula 3.0 01/13/17 23:29 Nasal Cannula 3.0 01/13/17 20:15 84 16 94 Nasal Cannula 3.0 01/13/17 19:00 37.3 97 18 109/56 01/13/17 18:30 36.7 93 18 122/58 01/13/17 18:15 36.4 87 18 115/66 01/13/17 18:00 36.7 85 18 114/63 01/13/17 17:59 36.7 85 18 119/63 99 3.5 01/13/17 17:30 37.3 89 18 112/65 Physical Exam Comments: General Appearance: WD/WN, no apparent distress Eyes: normal inspection, EOMI ENT: hearing grossly normal Respiratory/Chest: normal breath sounds, no respiratory distress Cardiovascular: regular rate, rhythm, no edema Abdomen: non tender, soft Extremities: non-tender, no pedal edema 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: alert, normal mood/affect, oriented x 3 Skin: normal color, warm/dry Laboratory Results Last 24 Hours Test 01/14/17 05:52 01/14/17 14:41 Hemoglobin 8.2 g/dL 8.4 g/dL Hematocrit 26.3 % 25.7 % Assessment and Plan This is a 66 yo m with a h/o adenocarcinoma of unknown origin, COPD, CAD, [place], CHF, distal AAA that is presenting to us with hematuria and dysuria while on lovenox for recently diagnosed PE, he had a traumatic attempt at hoffmann insertion that likely exacerbated his dysuria Hematuria with a history of PE on lovenox and possible UTI (abnormal UA) held Lovenox and urine cleared, now restarted in [place] of 01/12--bleeding has not restarted Transfuse 2 units PRBC 01/13 If hematuria returns will need Urology consult Rocephin but culture is negative ( it was collected after antibiotics started ) -> keflex added flomax, likely lowering blood pressure 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 Hem/onc feels bone marrow is slow to respond given underlying cancer process Stool pending for heme Hx of PE: 10/2016 Will need ongoing lovenox, which is likely exacerbating hematuria Anemia, of chronic disease stable Likely chemo induced pancytopenia Slight improvement this AM and again this afternoon, however not as much as anticipated Repeat in AM and if ongoing improvement, will likely be able to d/c home Adenocarcinoma, follow as is s/p recent chemo, no leukopenia, or platelet issues Hyponatremia resolved as was minor COPD with chronic hypoxic/ hypercapnic resp failure, seems stable, Symbicort O2 3L CAD/ H/O [place]/ diastolic CHF EF 60-65% DVT Prophylaxis SCD, lovenox Full code
[2017-01-14] MEDS: ACETAMINOPHEN 325 MG TAB PO PRN (19:47)
[2017-01-14] MEDS: IPRATROPIUM BROMIDE/ALBUTEROL respimat INH INH SCH (19:49)
[2017-01-14] MEDS: CEPHALEXIN MONOHYDRATE 500 MG CAP PO SCH (19:52)
[2017-01-14] MEDS: TAMSULOSIN HCL 0.4 MG CAP PO SCH (21:08)
[2017-01-15] MEDS: CHECK FENTANYL PATCH PLACEMENT SCH ×2 (00:13→08:30)
[2017-01-15 01:03] VITALS: BP 109/67; PULSE 70; TEMP 36.7; O2SAT 97
[2017-01-15 04:35] VITALS: BP 108/58; PULSE 86; TEMP 36.4; O2SAT 97
[2017-01-15 06:43] LABS: BLOOD UREA NITROGEN 10 mg/dl (7-18); BUN/CREATININE RATIO 31.6 (10-20); CALCIUM 8.4 mg/dl (8.5-10.1); CARBON DIOXIDE 36 mmol/L (21-32); CHLORIDE 97 mmol/L (98-107); CREATININE 0.31 mg/dl (0.60-1.40); GLUCOSE 84 mg/dl (70-99); POTASSIUM 3.7 mmol/L (3.5-5.1); SODIUM 136 mmol/L (136-145)
[2017-01-15 07:15] VITALS: BP 111/66; PULSE 77; TEMP 36.3; O2SAT 96
[2017-01-15 07:21] LABS: HEMATOCRIT 26.2 % (42-52); MEAN CELL VOLUME 88.2 fL (80-100); MEAN CORPUSCULAR HEMOGLOBIN 27.9 pg (25-34); MEAN CORPUSCULAR HGB CONC 31.7 g/dl (32-36); MEAN PLATELET VOLUME 8.2 fL (7.4-10.4); PLATELET COUNT 51 K/uL (130-400); RED BLOOD COUNT 2.97 M/uL (4.7-6.1); WHITE BLOOD COUNT 0.88 K/uL (4.8-10.8)
[2017-01-15 07:22] LABS: PLT ESTIMATE DECREASED
[2017-01-15 08:07] VITALS: O2SAT 96
[2017-01-15] MEDS: CEPHALEXIN MONOHYDRATE 500 MG CAP PO SCH (08:27)
[2017-01-15] MEDS: IPRATROPIUM BROMIDE/ALBUTEROL respimat INH INH SCH (08:28)
[2017-01-15] MEDS: ENOXAPARIN 80 MG/0.8 ML SYR SQ SCH (08:28)
[2017-01-15] MEDS: BUDESONIDE/FORMOTEROL FUMARATE 160/4.5 60 PUFFS/INHALER INH SCH (08:29)
[2017-01-15 08:56] LABS: HEMATOCRIT 26.4 % (42-52); MEAN CELL VOLUME 89.2 fL (80-100); MEAN CORPUSCULAR HEMOGLOBIN 28.7 pg (25-34); MEAN CORPUSCULAR HGB CONC 32.2 g/dl (32-36); MEAN PLATELET VOLUME 7.9 fL (7.4-10.4); PLATELET COUNT 47 K/uL (130-400); RED BLOOD COUNT 2.96 M/uL (4.7-6.1); WHITE BLOOD COUNT 0.89 K/uL (4.8-10.8)
[2017-01-15] MEDS ORDERED: KFL500 PO (10:19)
[2017-01-15] MEDS ORDERED: FLM4 PO (10:19)
--- NOTE | 2017-01-15 10:21 | Discharge Instructions ---
Discharge Instructions Date of Service Jan 15, 2017. Admission Reason for Admission: Hematuria, History Of Metastatic Neoplastic Discharge Discharge Diagnosis / Problem: Hematuria Discharge Goals Goal(s): Decrease discomfort, Improve function, Increase independence Activity Recommendations Activity Limitations: resume your previous activity . Instructions / Follow-Up Instructions / Follow-Up You were started on flomax to help with your urinary retention and this can cause your blood pressure to drop. You should check your blood pressure if you feel dizzy or lightheaded. You should be seen by the cancer center if you develop a fever. Dr. Olivas in [address] Biggs in 2 weeks as scheduled prior Current Hospital Diet Patient's current hospital diet: Regular Diet Discharge Diet Recommended Diet: Regular Diet Pending Studies Studies pending at discharge: no Work Instructions Return To Work: 1 day Medical Emergencies . Who to Call and When: Medical Emergencies: If at any time you feel your situation is an emergency, please call 911 immediately. . Non-Emergent Contact Non-Emergency issues call your: Primary Care Provider, Oncologist . . "Provider Documentation" section prepared by Diane Abdalla. . VTE Core Measure Inpt VTE Proph given/why not?: Enoxaparin (Lovenox)SQ, SCD's
--- NOTE | 2017-01-15 10:24 | Discharge Summary ---
Discharge Summary Date of Service Jan 15, 2017. Discharge Summary Admission Date: Jan 10, 2017 at 18:39 Discharge Date: Jan 15, 2017 Discharge Disposition: Home Principal Diagnosis: Hematuria Problems/Secondary Diagnoses: Metastatic cancer with unknown primary, currently undergoing chemo COPD, home O2 3L at baseline PE 10/2016, on lovenox CAD Immunizations: Have You Had Influenza Vaccine: No History of Tetanus Vaccine?: No History of Pneumococcal: No History of Hepatitis B Vaccine: No Consultations: Hem/onc Medication Reconciliation New Medications: Cephalexin Monohydrate (Cephalexin) 500 Mg Cap 500 MG PO TID for 9 Days, #27 CAP Tamsulosin HCl (Tamsulosin HCl) 0.4 Mg Cap 0.4 MG PO HS for 30 Days, #30 CAP Continued Medications: Acetaminophen (Tylenol) 325 Mg Tab 650 MG PO PRN, TAB Albuterol Sulfate (Proventil Hfa) 108 Mcg/Act Aer 2 PUFFS INH QID PRN for Wheezing Budesonide/Formoterol Fumarate (Symbicort 160/4.5 Inhaler ) Aero 2 PUFFS INH BID, INHALER Enoxaparin (Lovenox) 80 Mg/0.8 Ml Inj 80 MG SQ Q12H, SYR Fentanyl (Duragesic) 100 Mcg/Hr Dis 100-112 MCG TOP Q72HRS Morphine Sulfate (Morphine Sulfate) 15 Mg Tab 15 MG PO Q4H PRN for Pain, TAB Ondansetron Hcl (Zofran) 8 Mg Tab 8 MG PO PRN PRN for Nausea, TAB Discharge Exam Pt is doing well. No further blood in his urine. 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 Still with burning with urination. Tolerating PO without issue. Pt denies fever, SOB, chest pain, abd pain, n/v/c/d, LE pain or swelling. Physical Exam: General Appearance: WD/WN, no apparent distress Respiratory/Chest: normal breath sounds, no respiratory distress Cardiovascular: regular rate, rhythm, no edema Abdomen / GI: non tender, soft Extremities: no calf tenderness, no pedal edema 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: alert, normal mood/affect, oriented x 3 Skin: normal color, warm/dry Hospital Course This is a 66 yo m with a h/o adenocarcinoma of unknown origin, COPD, CAD, [place], CHF, distal AAA that is presenting to us with hematuria and dysuria while on lovenox for recently diagnosed PE, he had a traumatic attempt at hoffmann insertion that likely exacerbated his dysuria Hematuria with a history of PE on lovenox and possible UTI (abnormal UA) held Lovenox and urine cleared, now restarted in [place] of 01/12--bleeding has not restarted Transfuse 2 units PRBC 01/13 If hematuria returns will need Urology consult Rocephin but culture is negative ( it was collected after antibiotics started ) -> keflex added flomax, likely lowering blood pressure and advised to get a BP cuff. 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 Hem/onc feels bone marrow is slow to respond given underlying cancer process Burning is ongoing and likely related to trauma Hx of PE: 10/2016 Ongoing lovenox, which is likely exacerbating hematuria Advised that bleeding could recur and likely that lovenox caused bleeding, but cannot stop lovenox due recent dx and further risk due to cancer Anemia, of chronic disease stable Likely chemo induced pancytopenia Hb stable Drop in WBC and platelets discussed with oncology who feel this is to be expected given timing related to last chemo tx Will monitor as outpt as needed Adenocarcinoma, follow as is s/p recent chemo, no leukopenia, or platelet issues Hyponatremia resolved as was minor COPD with chronic hypoxic/ hypercapnic resp failure, seems stable, Symbicort Stable on baseline home O2 3L CAD/ H/O [place]/ diastolic CHF EF 60-65% Total Time Spent: Greater than 30 minutes This includes examination of the patient, discharge planning, medication reconciliation, and communication with other providers. Discharge Instructions Please refer to the electronic Patient Visit Report (Discharge Instructions) for additional information. Follow-Up Dr. Olivas in [address] Biggs in 2 weeks as scheduled prior Additional Copies To Ann Olivas M.D.
[2017-01-15 10:55] VITALS: BP 105/61; PULSE 80; TEMP 36.7; O2SAT 94
[2017-01-15 11:03] VITALS: BP 105/61; PULSE 80; TEMP 36.7; O2SAT 94
== END 2017-01-15 12:20 | disposition home or self-care (01) | DRG 813 ==
LOC: C.EDB 13:58 → ENRESERV 18:05 → C.4E 18:39
PROVIDERS: ADMIT Family Medicine; ATTEND Family Medicine
DX: D68.32 Hemorrhagic disorder due to extrinsic circulating anticoagulants (principal); T45.515A Adverse effect of anticoagulants, initial encounter; D61.810 Antineoplastic chemotherapy induced pancytopenia; C79.51 Secondary malignant neoplasm of bone; C78.00 Secondary malignant neoplasm of unspecified lung; E87.1 Hypo-osmolality and hyponatremia; J96.11 Chronic respiratory failure with hypoxia; J96.12 Chronic respiratory failure with hypercapnia; I50.32 Chronic diastolic (congestive) heart failure; N39.0 Urinary tract infection, site not specified; S37.30XA Unspecified injury of urethra, initial encounter; R31.9 Hematuria, unspecified; N99.89 Other postprocedural complications and disorders of genitourinary system; C80.1 Malignant (primary) neoplasm, unspecified; J44.9 Chronic obstructive pulmonary disease, unspecified; I25.10 Atherosclerotic heart disease of native coronary artery without angina pectoris; I25.2 Old myocardial infarction; Z79.899 Other long term (current) drug therapy; Z79.01 Long term (current) use of anticoagulants; Z79.891 Long term (current) use of opiate analgesic; Z86.711 Personal history of pulmonary embolism; Z99.81 Dependence on supplemental oxygen; Z87.891 Personal history of nicotine dependence; Y84.6 Urinary catheterization as the cause of abnormal reaction of the patient, or of later complication, without mention of misadventure at the time of the procedure

== ENCOUNTER 2017-01-18 17:02 | Inpatient (IN) | payer OTHER ==
[~2017-01-18] VITALS: Ht 177.8 cm; Wt 80.9 kg
[~2017-01-18 17:02] MED LIST changes: +FLM4 PO; +KFL500 PO
[2017-01-18] MEDS ORDERED: SODIUM CHLORIDE 0.9% 1000ML 250 ML IV STA (17:26)
[2017-01-18] MEDS ORDERED: SODIUM CHLORIDE 0.9% 1000ML 1,000 ML IV STA (17:26)
--- NOTE | 2017-01-18 17:32 | EMERGENCY ROOM VISIT NOTE ---
History Report prepared by Deo: Ahsan Short Under the Supervision of: Dr. Magan Felix M.D. First contact with patient: 17:12 Chief Complaint: HEMATURIA Stated Complaint: HEMATURIA History of Present Illness The patient is a 66 year old male who presents to the Emergency Room with complaints of hematuria that occurred again yesterday. He was recently treated as an inpatient at [facility] 7 days ago for hematuria and inability to void. He was discharged 3 days ago without any symptoms. Over his hospital stay , he received multiple Mccarty catheters to relieve his bladder. Yesterday morning , he noticed blood in his urine again. He denies any urinary burning at this time. He is not passing clots. He called his PCP today and told him that he should stop taking his blood thinner and to go to the ER. He denies any fevers, chest pain, shortness of breath, back pain, neck pain, melena, diarrhea, or hematochezia. He has a current medical history of lung, liver, and bone cancer. His most recent chemotherapy was 2 weeks ago. Source of History: patient Onset: yesterday morning Position: other () Symptom Intensity: moderate Quality: other (Hematuria) Timing: intermittent Modifying Factors (Worsening): urination Associated Symptoms: No fevers, No chest pain, No SOB, No back pain, No melena, No hematochezia, No diarrhea Review of Systems See HPI for pertinent positives & negatives. A total of 10 systems reviewed and were otherwise negative. Past Medical & Surgical Medical Problems: (1) Adenocarcinoma of unknown primary (2) COPD (chronic obstructive pulmonary disease) (3) Coronary artery disease (4) Hematuria (5) History of metastatic neoplastic disease (6) Hypoxia (7) Pneumonia (8) Pulmonary embolism, bilateral (9) Sepsis Surgical Problems: (1) History of total replacement of right hip Old medical records were reviewed. Nurse's notes were reviewed and I agree with. Family History Cancer Social History Smoking Status: Never Smoker Smokeless Tobacco Use: No Drug Use: none Marital Status: Housing Status: lives with significant other Occupation Status: retired Current/Historical Medications Scheduled Acetaminophen (Tylenol), 650 MG PO PRN Budesonide/Formoterol Fumarate (Symbicort 160/4.5 Inhaler ), 2 PUFFS INH BID Enoxaparin (Lovenox), 80 MG SQ Q12H Fentanyl (Duragesic), 100-112 MCG TOP Q72HRS Tamsulosin HCl (Tamsulosin HCl), 0.4 MG PO HS Scheduled PRN Albuterol Sulfate (Proventil Hfa), 2 PUFFS INH QID PRN for Wheezing Morphine Sulfate (Morphine Sulfate), 15 MG PO Q4H PRN for Pain Ondansetron Hcl (Zofran), 8 MG PO PRN PRN for Nausea Allergies Coded Allergies: No Known Allergies (Verified , 01/18/17) Physical Exam Vital Signs Date Time Temp Pulse Resp B/P (MAP) Pulse Ox O2 Delivery O2 Flow Rate FiO2 01/18/17 19:07 87 22 106/60 98 Nasal Cannula 3.0 01/18/17 17:05 36.8 82 18 124/78 98 Room Air Physical Exam General: Non-ill appearing older male, well developed well nourished in no acute distress, on baseline supplemental oxygen. Normal speech HEENT: Normal cephalic atraumatic. Pupils are equal round and reactive to light. Extraocular movements are intact. Oropharynx is pink with moist mucous membranes. No swelling of the mouth lips or tongue. Neck: Supple with a midline trachea. No meningeal signs or stiffness, no JVD or bruits. No Stridor. Chest: Clear to auscultation bilaterally. No wheezes or rhonchi. No increased work of breathing. Heart: regular rate and rhythm. Abdomen: Soft nontender, nondistended without rebound guarding or rigidity. Extremities: No cyanosis clubbing or edema. No calf tenderness or assymetry Spine/Back. Non tender to palpation. No CVA tenderness Skin: Good turgor without rashes. Neurologic exam: Cranial nerves two through 12 are intact. Motor and sensation are intact and symmetrical throughout. Medical Decision & Procedures Laboratory Results 01/18/17 18:00 Test 01/18/17 18:00 Immature Granulocyte % (Auto) 0.0 % White Blood Count 0.61 K/uL (4.8-10.8) Red Blood Count 2.91 M/uL (4.7-6.1) Hemoglobin 8.3 g/dL (14.0-18.0) Hematocrit 25.7 % (42-52) Mean Corpuscular Volume 88.3 fL (80-100) Mean Corpuscular Hemoglobin 28.5 pg (25-34) Mean Corpuscular Hemoglobin Concent 32.3 g/dl (32-36) Platelet Count 16 K/uL (130-400) Mean Platelet Volume 9.3 fL (7.4-10.4) Neutrophils (%) (Auto) 14.8 % Lymphocytes (%) (Auto) 67.2 % Monocytes (%) (Auto) 18.0 % Eosinophils (%) (Auto) 0.0 % Basophils (%) (Auto) 0.0 % Neutrophils # (Auto) 0.09 K/uL (1.4-6.5) Lymphocytes # (Auto) 0.41 K/uL (1.2-3.4) Monocytes # (Auto) 0.11 K/uL (0.11-0.59) Eosinophils # (Auto) 0.00 K/uL (0-0.5) Basophils # (Auto) 0.00 K/uL (0-0.2) Immature Granulocyte # (Auto) 0.00 K/uL (0.00-0.02) Platelet Estimate SIGNIFIC DECREASED Red Blood Cell Morphology Unremarkable Prothrombin Time 11.4 SECONDS (9.0-12.0) Prothromb Time International Ratio 1.1 (0.9-1.1) Activated Partial Thromboplast Time 40.7 SECONDS (21.0-31.0) Partial Thromboplastin Ratio 1.6 Anion Gap 3.0 mmol/L (3-11) Estimated GFR () > 150.0 Estimated GFR (Non- 137.4 BUN/Creatinine Ratio 43.9 (10-20) Calcium Level 9.3 mg/dl (8.5-10.1) Total Bilirubin 0.4 mg/dl (0.2-1) Direct Bilirubin 0.2 mg/dl (0-0.2) Aspartate Amino Transf (AST/SGOT) 22 U/L (15-37) Alanine Aminotransferase (ALT/SGPT) 29 U/L (12-78) Alkaline Phosphatase 180 U/L (45-117) Total Protein 6.6 gm/dl (6.4-8.2) Albumin 2.3 gm/dl (3.4-5.0) Lipase 60 U/L (73-393) Laboratory studies as stated above per my review. Medications Administered Medications (Trade) Dose Ordered Sig/Abbi Route Start Time Stop Time Status Last Admin Dose Admin Sodium Chloride 250 ml @ 999 mls/hr Q16M STAT IV 01/18/17 17:26 01/18/17 17:41 DC 01/18/17 17:26 999 MLS/HR Sodium Chloride 1,000 ml @ 100 mls/hr Q10H STAT IV 01/18/17 17:26 01/19/17 03:25 01/18/17 17:26 100 MLS/HR ED Course 171: Past medical records reviewed. The patient was evaluated in room B7, and a complete history and physical examination were performed. 172: Ordered Sodium Chloride 1000 ml @ 100 mls/hr IV, Sodium Chloride 250 ml @ 999 mls/hr IV 1856: I spoke with Dr. Biggs of Oncology at this time. We discussed the patient's case. He agrees with the plan to give the patient platelets and for him to be evaluated as an inpatient for further care and management. 190: Upon reevaluation, the patient is resting. I discussed the results and treatment plan with the patient. He verbalized agreement of the treatment plan. The patient will be evaluated by Dr. Feng HILL, for further management. 1916: The patient consented to receive platelets. Medical Decision Differentials include, but are not limited to; hematuria, infection, cancer complication, thrombocytopenia, and PE. This patient comes in as described above. He has had some hematuria last 2 days. He's had this before. He is on Lovenox for a PE history. He also has a history of being pancytopenic related to chemotherapy. He seems to be passing urine. He says he does not have any obstructive symptoms. I did order bladder scan. IV access established was hydrated with IV normal saline. Blood work was obtained. He was reassessed frequently. He is afebrile and normotensive. His platelets came back significantly low at 17,000. He has chronic anemia with a stable hemoglobin of 8.3. He was also found to be neutropenic however he is not febrile. We did put him on neutropenic precautions. He has no acute electrolyte or metabolic abnormalities. Given the fact that he is passing urine and has low platelets, I do not think he needs a catheter immediately. I did discuss the case with Dr. Biggs who is his on for oncology. He did recommend giving him platelets which I did order and the patient consented. I ordered irradiated platelets. I do think he needs to be admitted for monitoring of his hematologic parameters as well as his hematuria and urologic consult as well. I did consult Dr. Novak who saw him in the ER and will admit him for these measures., Medication Reconcilliation Current Medication List: was personally reviewed by me Blood Pressure Screening Patient's blood pressure: Normal blood pressure Blood pressure disposition: Did not require urgent referral Consults Time Called: 1849 Consulting Physician: Dr. Biggs - Oncology Returned Call: [phone] We discussed the patient's case at this time. He agrees with the plan to give the patient platelets and to having him evaluated as an inpatient for further management and care. Additional Consults: Time Called: 1904 Consulted Physician: Dr. Toney - [facility] [place] Returned Call: 1908 Additional Comments: Discussed the patient's case. The patient will be evaluated for further management. Impression Primary Impression: Hematuria Additional Impressions: Thrombocytopenia Neutropenia Scribe Attestation The scribe's documentation has been prepared under my direction and personally reviewed by me in its entirety. I confirm that the note above accurately reflects all work, treatment, procedures, and medical decision making performed by me. Departure Information Dispostion Being Evaluated By Hospitalist Ann Gordon M.D. (PCP) Patient Instructions My [facility] Problem Qualifiers
[2017-01-18 18:23] LABS: INR 1.1 (0.9-1.1); PARTIAL THROMBOPLASTIN RATIO 1.6; PROTHROMBIN TIME (PATIENT) 11.4 SECONDS (9.0-12.0)
[2017-01-18 18:29] LABS: ALT/SGPT 29 U/L (12-78); AST/SGOT 22 U/L (15-37); BLOOD UREA NITROGEN 14 mg/dl (7-18); BUN/CREATININE RATIO 43.9 (10-20); CALCIUM 9.3 mg/dl (8.5-10.1); CARBON DIOXIDE 36 mmol/L (21-32); CHLORIDE 95 mmol/L (98-107); CREATININE 0.31 mg/dl (0.60-1.40); GLUCOSE 93 mg/dl (70-99); POTASSIUM 4.2 mmol/L (3.5-5.1); SODIUM 134 mmol/L (136-145)
[2017-01-18 18:32] LABS: ALKALINE PHOSPHATASE 180 U/L (45-117)
[2017-01-18 18:36] LABS: HEMATOCRIT 25.7 % (42-52); MEAN CELL VOLUME 88.3 fL (80-100); MEAN CORPUSCULAR HEMOGLOBIN 28.5 pg (25-34); MEAN CORPUSCULAR HGB CONC 32.3 g/dl (32-36); MEAN PLATELET VOLUME 9.3 fL (7.4-10.4); PLATELET COUNT 16 K/uL (130-400); RED BLOOD COUNT 2.91 M/uL (4.7-6.1); WHITE BLOOD COUNT 0.61 K/uL (4.8-10.8)
[2017-01-18 18:46] LABS: COMPLETE YES; LYMPH % 67.2 %; LYMPH ABS # 0.41 K/uL (1.2-3.4); NEUT % 14.8 %
[2017-01-18 18:49] LABS: PLT ESTIMATE SIGNIFIC DECREASED
[2017-01-18] MEDS ORDERED: MAGNESIUM HYDROXIDE SUSP 30 ML UDC PO PRN (19:30)
[2017-01-18] MEDS ORDERED: MoRPHine SULFATE 2 MG/ML CARP IV PRN (19:30)
[2017-01-18] MEDS ORDERED: POLYETHYLENE (MIRALAX) 17 GM PACK PO PRN (19:30)
[2017-01-18] MEDS ORDERED: ZOLPIDEM TARTRATE 5 MG TAB PO PRN (19:30)
[2017-01-18] MEDS ORDERED: ONDANSETRON INJ 2 MG/ML 2 ML VIAL IV PRN (19:30)
[2017-01-18] MEDS ORDERED: ALUMINUM/MAGNESIUM/SIMETH (MAALOX MAX) 30 ML UDC PO PRN (19:30)
[2017-01-18] MEDS ORDERED: ACETAMINOPHEN 325 MG TAB PO PRN (19:30)
[2017-01-18] MEDS ORDERED: IV FLUIDS COMPLETED PRN (20:00)
[2017-01-18 20:02] VITALS: BP 93/57; PULSE 88; TEMP 37.6; O2SAT 96
--- NOTE | 2017-01-18 20:49 | History and Physical ---
History & Physical Date & Time of Service: Jan 18, 2017 at 20:43 Chief Complaint: Hematuria Primary Care Physician: Ann Olivas M.D. 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 Currently receiving chemo with Pemetrexed and Carboplatinum. Pt recently placed on Lovenox for PEs. Presents with a primary complaint of hematuria. Initial labs reveal severe pancytopenia - platelet count of 16, WBC .61. Denies fevers, CP, SOB. Admits to weakness which is chronic. Past Medical/Surgical History Medical Problems: (1) Adenocarcinoma of unknown primary Permanent Comment: Metastatic disease to bone, liver, lungs - current chemotherapy - pemetrexed with Carboplatinum Status post completion of radiation therapy to T5, right second and third ribs. Completed 11/14/2016. He received 3000 cGy. Status: Chronic (2) COPD (chronic obstructive pulmonary disease) Status: Chronic (3) Coronary artery disease Status: Chronic (4) Pulmonary emboli b/l 5) SVT Family History Cancer Social History Smoking Status: Former Smoker Smokeless Tobacco Use: No Drug Use: none Marital Status: Housing status: lives with significant other Occupational Status: retired Immunizations History of Influenza Vaccine: No History of Tetanus Vaccine?: No History of Pneumococcal: No History of Hepatitis B Vaccine: No Multi-Drug Resistant Organisms History of MDRO: No Allergies Coded Allergies: No Known Allergies (Verified , 01/18/17) Home Medications Scheduled Acetaminophen (Tylenol), 650 MG PO PRN Budesonide/Formoterol Fumarate (Symbicort 160/4.5 Inhaler ), 2 PUFFS INH BID Enoxaparin (Lovenox), 80 MG SQ Q12H Fentanyl (Duragesic), 100-112 MCG TOP Q72HRS Tamsulosin HCl (Tamsulosin HCl), 0.4 MG PO HS Scheduled PRN Albuterol Sulfate (Proventil Hfa), 2 PUFFS INH QID PRN for Wheezing Morphine Sulfate (Morphine Sulfate), 15 MG PO Q4H PRN for Pain Ondansetron Hcl (Zofran), 8 MG PO PRN PRN for Nausea Review of Systems Constitutional: + weakness, + fatigue, No fever, No chills, No sweats Eyes: No worsening of vision ENT: No hearing loss, No nasal symptoms Respiratory: No cough, No sputum, No wheezing, No shortness of breath Cardiovascular: No chest pain, No orthopnea, No PND Abdomen: No pain, No nausea Musculoskeletal: No joint pain Genitourinary - Male: + hematuria, No dysuria Neurologic: No memory loss, No paralysis, No weakness Psychiatric: No depression symptoms Endocrine: + fatigue Hematologic / Lymphatic: + abnormal bleeding/bruising Integumentary: No rash Allergic / Immunologic: No environmental allergies Physical Exam Vital Signs Date Time Temp Pulse Resp B/P (MAP) Pulse Ox O2 Delivery O2 Flow Rate FiO2 01/18/17 20:02 37.6 88 20 93/57 96 3.0 01/18/17 19:07 87 22 106/60 98 Nasal Cannula 3.0 01/18/17 17:05 36.8 82 18 124/78 98 Room Air General Appearance: WD/WN, no apparent distress, + thin Head: normocephalic Eyes: normal inspection ENT: normal ENT inspection, hearing grossly normal Neck: supple, no JVD Respiratory/Chest: chest non-tender, lungs clear, normal breath sounds Cardiovascular: regular rate, rhythm Abdomen/GI: normal bowel sounds, non tender, soft Back: normal inspection, no CVA tenderness, no muscle spasm Extremities/Musculoskelatal: normal inspection, no calf tenderness 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, no motor/sensory deficits, alert, oriented x 3 Skin: normal color, warm/dry, no rash, + pallor Diagnostics Laboratory Results Results Past 24 Hours Test 01/18/17 18:00 01/18/17 20:41 Range/Units White Blood Count 0.61 4.8-10.8 K/uL Red Blood Count 2.91 4.7-6.1 M/uL Hemoglobin 8.3 14.0-18.0 g/dL Hematocrit 25.7 42-52 % Mean Corpuscular Volume 88.3 80-100 fL Mean Corpuscular Hemoglobin 28.5 25-34 pg Mean Corpuscular Hemoglobin Concent 32.3 32-36 g/dl Platelet Count 16 130-400 K/uL Mean Platelet Volume 9.3 7.4-10.4 fL Neutrophils (%) (Auto) 14.8 % Lymphocytes (%) (Auto) 67.2 % Monocytes (%) (Auto) 18.0 % Eosinophils (%) (Auto) 0.0 % Basophils (%) (Auto) 0.0 % Neutrophils # (Auto) 0.09 1.4-6.5 K/uL Lymphocytes # (Auto) 0.41 1.2-3.4 K/uL Monocytes # (Auto) 0.11 0.11-0.59 K/uL Eosinophils # (Auto) 0.00 0-0.5 K/uL Basophils # (Auto) 0.00 0-0.2 K/uL RDW Standard Deviation 46.8 36.4-46.3 fL RDW Coefficient of Variation 14.6 11.5-14.5 % Immature Granulocyte % (Auto) 0.0 % Immature Granulocyte # (Auto) 0.00 0.00-0.02 K/uL Platelet Estimate SIGNIFIC DECREASED Red Blood Cell Morphology Unremarkable Prothrombin Time 11.4 9.0-12.0 SECONDS Prothromb Time International Ratio 1.1 0.9-1.1 Activated Partial Thromboplast Time 40.7 21.0-31.0 SECONDS Partial Thromboplastin Ratio 1.6 Sodium Level 134 136-145 mmol/L Potassium Level 4.2 3.5-5.1 mmol/L Chloride Level 95 98-107 mmol/L Carbon Dioxide Level 36 21-32 mmol/L Anion Gap 3.0 3-11 mmol/L Blood Urea Nitrogen 14 7-18 mg/dl Creatinine 0.31 0.60-1.40 mg/dl Estimated GFR () > 150.0 Estimated GFR (Non- 137.4 BUN/Creatinine Ratio 43.9 10-20 Random Glucose 93 70-99 mg/dl Calcium Level 9.3 8.5-10.1 mg/dl Total Bilirubin 0.4 0.2-1 mg/dl Direct Bilirubin 0.2 0-0.2 mg/dl Aspartate Amino Transf (AST/SGOT) 22 15-37 U/L Alanine Aminotransferase (ALT/SGPT) 29 12-78 U/L Alkaline Phosphatase 180 45-117 U/L Total Protein 6.6 6.4-8.2 gm/dl Albumin 2.3 3.4-5.0 gm/dl Lipase 60 73-393 U/L Impression Assessment and Plan 66 y/o M 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 Currently receiving chemo with Pemetrexed and Carboplatinum. Pt recently placed on Lovenox for PEs. Presents with a primary complaint of hematuria. Initial labs reveal severe pancytopenia - platelet count of 16, WBC .61. Denies fevers, CP, SOB. Admits to weakness which is chronic. 1) Hematuria - likely related to his low platelet count although he should follow-up with urology considering his met disease. Pt is receiving a platelet transfusion and Lovenox is held. 2) Pancytopenia - Pt receiving platelets and scheduled to receive a unit of PRBCs - will consult heme/onc reg Neupogen use and trend CBC. 3) PEs - As Lovenox is held, we will start IV Heparin AM if hematuria has resolved - can go back on Lovenox if his bleeding martino not recur, otherwise we may need an inpatient urology consult. 4) CODP - no evidence of exacerbation - cont inhalers as prescribed. 5) CAD - No evidence of ACS - no related treatment at present. 6) Met CA - f/u with heme onc Full code - SCDs Total time for this admit including review of labs, meds, imaging, records - discussion with pt and ER attending - 39 min Level of Care Telemetry Resuscitation Status FULL RESUSCITATION VTE Prophylaxis VTE Risk Assessment Done? Y/N: Yes Risk Level: High Given or contraindicated: SCD's
[2017-01-18 20:55] VITALS: BP 118/63; PULSE 94; TEMP 36.9; O2SAT 96; Ht 177.8 cm; Wt 80.9 kg
[2017-01-18 20:59] LABS: URINE APPEARANCE CLOUDY (CLEAR); URINE BILIRUBIN NEG (NEG); URINE EPITHELIAL CELL AUTO >30 /lpf (0-5); URINE NITRITE NEG (NEG); URINE SPECIFIC GRAVITY 1.018 (1.000-1.030); UROBILINOGEN NEG (NEG)
[2017-01-18 21:00] VITALS: BP 118/63; PULSE 93; TEMP 36.9; O2SAT 96
[2017-01-18 21:16] LABS: MANUAL MICROSCOPIC REQUIRED? NO; REVIEW REQ? YES; URINE COLOR DARK YELLOW
[2017-01-18 21:17] LABS: SULFASALICYLIC ACID NEG (NEG)
[2017-01-18 21:18] LABS: URINE MUCUS PRESENT (NONE PRSENT)
[2017-01-18 21:58] LABS: HEMATOCRIT 22.6 % (42-52); MEAN CORPUSCULAR HGB CONC 31.4 g/dl (32-36); MEAN PLATELET VOLUME 9.1 fL (7.4-10.4); PLATELET COUNT 87 K/uL (130-400); RED BLOOD COUNT 2.54 M/uL (4.7-6.1); WHITE BLOOD COUNT 0.71 K/uL (4.8-10.8)
[2017-01-18] MEDS ORDERED: NURSING VERBAL MED ORDER ONE (22:45)
[2017-01-18 23:09] VITALS: BP 111/66; PULSE 90; TEMP 38.9; O2SAT 96
[2017-01-18 23:28] VITALS: BP_SYST 112; BP_SYST 116; BP_DIAS 60; BP_DIAS 65; PULSE 83; PULSE 84
[2017-01-19] VITALS (12 sets, daily range): BP systolic 91–125; BP diastolic 52–71; PULSE 59–89; TEMP 36.8–36.9; O2SAT 95–99
[2017-01-19] MEDS ORDERED: ALBUT/IPRATROP 3MG/0.5MG NEB 3 ML VIAL INH SCH (03:00)
[2017-01-19] MEDS ORDERED: NURSING VERBAL MED ORDER ONE (03:45)
[2017-01-19] MEDS ORDERED: ALBUT/IPRATROP 3MG/0.5MG NEB 3 ML VIAL INH PRN (04:00)
[2017-01-19 06:29] LABS: HEMATOCRIT 24.4 % (42-52); MEAN CELL VOLUME 87.8 fL (80-100); MEAN CORPUSCULAR HEMOGLOBIN 28.8 pg (25-34); MEAN CORPUSCULAR HGB CONC 32.8 g/dl (32-36); MEAN PLATELET VOLUME 9.4 fL (7.4-10.4); PLATELET COUNT 55 K/uL (130-400); RED BLOOD COUNT 2.78 M/uL (4.7-6.1); WHITE BLOOD COUNT 0.71 K/uL (4.8-10.8)
[2017-01-19] MEDS ORDERED: HEPARIN IV LOW DOSE NO BOLUS SCH (07:00)
--- NOTE | 2017-01-19 08:14 | Family Medicine Progress Note ---
Progress Note Date of Service Jan 19, 2017. Subjective Pt evaluation today including: conversation w/ patient, physical exam, chart review, lab review, review of studies, conversation w/ marine engineering consultant, review of inpatient medication list Patient well currently. Denies any symptoms of anemia - no dizziness, chest pain, dyspnea, palpitations, weakness. He does state he has shortness of breath on exertion and does wear 3 L oxygen via nasal cannula at home at baseline. He states he was admitted for hematuria last week and sent home 2 days ago with mild improvement in hematuria, however the symptoms have recurred and he was advised by Dr. Biggs to return to hospital for further evaluation. Patient denies symptoms of UTI - no dysuria, urgency, frequency, Foul-smelling urine. He notes that he has blood in his urine upon initiating voiding, and some hematuria noted at the end. He denies any clots in his urine this time. He has been having regular bowel movements and not noted any blood or dark tarry stools. He also denies any bruising. He has been taking Lovenox for his pulmonary embolisms since October without issue. ROS unremarkable except as noted above. Objective Vital Signs Date Time Temp Pulse Resp B/P (MAP) Pulse Ox O2 Delivery O2 Flow Rate FiO2 01/19/17 07:46 36.9 77 16 112/60 (77) 99 01/19/17 05:04 Room Air 01/19/17 03:44 73 101/58 01/19/17 02:44 86 119/52 01/19/17 02:14 77 114/67 01/19/17 02:03 83 16 98 Nasal Cannula 3.0 01/19/17 01:56 36.9 81 16 122/55 97 3.0 01/19/17 01:28 80 125/71 99 01/19/17 00:28 88 116/65 97 01/18/17 23:59 Room Air 01/18/17 23:28 84 116/65 01/18/17 23:28 83 112/60 01/18/17 23:09 38.9 90 16 111/66 96 01/18/17 21:00 36.9 93 18 118/63 96 01/18/17 20:59 113/63 01/18/17 20:55 36.9 94 16 118/63 96 Nasal Cannula 3.0 01/18/17 20:02 37.6 88 20 93/57 96 3.0 01/18/17 19:07 87 22 106/60 98 Nasal Cannula 3.0 01/18/17 17:05 36.8 82 18 124/78 98 Room Air Physical Exam General Appearance: WD/WN, no apparent distress Eyes: normal inspection ENT: hearing grossly normal Neck: supple, no adenopathy Respiratory/Chest: lungs clear, normal breath sounds, no respiratory distress, no accessory muscle use Cardiovascular: regular rate, rhythm, no murmur, + normal peripheral pulses Abdomen: normal bowel sounds, non tender, soft Extremities: normal inspection, no pedal edema, no calf tenderness, normal capillary refill 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: alert, normal mood/affect, oriented x 3 Skin: normal color, warm/dry, no rash Laboratory Results Results Past 24 Hours Test 01/19/17 05:46 Range/Units White Blood Count 0.71 4.8-10.8 K/uL Red Blood Count 2.78 4.7-6.1 M/uL Hemoglobin 8.0 14.0-18.0 g/dL Hematocrit 24.4 42-52 % Mean Corpuscular Volume 87.8 80-100 fL Mean Corpuscular Hemoglobin 28.8 25-34 pg Mean Corpuscular Hemoglobin Concent 32.8 32-36 g/dl RDW Standard Deviation 46.5 36.4-46.3 fL RDW Coefficient of Variation 14.7 11.5-14.5 % Platelet Count 55 130-400 K/uL Mean Platelet Volume 9.4 7.4-10.4 fL Assessment and Plan 66 year old male with PMHx metastatic non small cell lung cancer (mets to liver , bone) currently receiving chemo with Pemetrexed and Carboplatinum, with pancytopenia, bilateral PEs with Lovenox treatment ongoing since October, SVT, AAA , COPD, CAD. Presents with a primary complaint of hematuria. Initial labs reveal severe pancytopenia - platelet count of 16, WBC 0.61. Hematuria - Likely related to low platelet count. - Hold enoxaparin - s/p transfusion of 2 units platelets, with some improvement in platelets - Urology consulted, believe hematuria related to prostate. Recommend starting finasteride to current tamsulosin regimen, and outpatient cystoscopy and cytology in 1 week. Pancytopenia - Likely secondary to chemotherapy - s/p transfusion of 1 unit pRBC, with some improvement in WBC - Heme/onc consulted regarding Neupogen use, recs appreciated - Trend CBC PEs - Lovenox is held. - Given no current urology interventions, and improvement in hematuria, low dose heparin without bolus started - Heme/onc consulted, home management to be discussed/determined. Metastatic non-small cell lung cancer - Management as per heme/onc COPD - No evidence of exacerbation, continue home inhalers as prescribed. CAD - No evidence of ACS - no related treatment at present. VTE PPx - SCDs - Trial heparin drip Full code Continued [facility] stay due to: other Resident Tracking Resident Involvement: Resident Care Provided Care Provided: Adult Hospital Medicine History Resident Physician Supervision Note: I was present with Dr. Daniel during the history and exam. I discussed the case with the resident and agree with the findings and plan as documented in the note. Any exceptions or clarifications are listed here. Pt seen and examined at bedside. Reports gradual improvement of hematuria to presently at start and termination of urination. Reports no bleeding/bruising otherwise, lightheadedness, melena, hematochezia, nausea. General Appearance: no apparent distress, thin Respiratory: chest non-tender, lungs clear, normal breath sounds, no respiratory distress Cardiovascular: normal peripheral pulses, regular rate, rhythm, systolic murmur (06/10) Assessment/Plan 66 y/o male h/o adenocarcinoma w/ recent admission for hematuria presents w/ hematuria and pancytopenia Hematuria - resolving, urology consulted - s/p 2U platelets - likely source prostate - start finasteride atop tamsulosin Anemia - s/p 1U PRBC, source hematuria/pancytopenia - daily CBC Pancytopenia - hematology consulted, recommendations appreciated - daily CBC PE - continue heparin, d/w heme/onc in AM Metastatic non-small cell lung cancer - hematology/oncology consulted COPD - continue present regimen h/o CAD
[2017-01-19] MEDS ORDERED: ACETAMINOPHEN 325 MG TAB PO SCH (10:45)
[2017-01-19] MEDS ORDERED: MoRPHine SULFATE IR 15 MG TAB (IMMEDIATE RELEASE) PO PRN (10:45)
[2017-01-19] MEDS ORDERED: ALBUTEROL HFA 8 GM INHALER INH PRN (10:45)
[2017-01-19] MEDS ORDERED: ONDANSETRON 8 MG TAB PO PRN (10:45)
--- NOTE | 2017-01-19 10:52 | Oncology Consultation ---
Oncology/Heme Consultation Date of Consultation: Jan 19, 2017. Attending Physician: Brayan Treviño MD Reason for Consultation: Metastatic non-small cell lung cancer Pancytopenia Hematuria History of Present Illness Mr. Hagan is a 66 year old man with metastatic lung cancer. He received his second dose of palliative carboplatin/pemetrexed on 01/07/17. He was admitted here from 01/10 - 01/15 for gross hematuria with urinary retention. It eventually improved and he was discharged, though he was not seen by urology and a definitive explanation was not found. He called me yesterday afternoon noting that the bleeding had resumed, though he denied any urinary retention or difficulty starting his stream. Given that we did not know why he was bleeding, I directed him back to the ER. There, he was found to be pancytopenic (WBC 0.6, Hbg 8.6, Plts 16). He was transfused platelets and his count is up to ~50K today. His hematuria also resolved when his platelets were replaced. He does not recall a prior history of hematuria and denies any flank pain, fevers, chills, or sweats. Past Medical/Surgical History Medical Problems: (1) Anemia Status: Acute (2) Bilateral pulmonary embolism Status: Acute (3) Dehydration Status: Acute (4) Dehydration Status: Acute (5) Dysuria Status: Acute (6) Generalized weakness Status: Acute (7) Hematuria Status: Acute (8) Hematuria Status: Acute (9) Hematuria Status: Acute (10) Hypotension Status: Acute (11) Hypotension Status: Acute (12) Hypoxia Status: Chronic (13) Left rib fracture Status: Acute (14) Lung cancer Status: Acute (15) Mediastinal lymphadenopathy Status: Acute (16) Metastatic lung cancer (metastasis from lung to other site) Status: Acute (17) Neutropenia Status: Acute (18) Non-traumatic compression fracture of T5 thoracic vertebra Status: Acute (19) Osteolytic 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 Status: Acute (20) Pathological fracture of rib of right side Status: Acute (21) Pulmonary nodules Status: Acute (22) SVT (supraventricular tachycardia) Status: Acute (23) Thrombocytopenia Status: Acute Family History Cancer Social History Smoking Status: Former Smoker Smokeless Tobacco Use: No Drug Use: none Marital Status: Housing Status: lives with significant other Occupation Status: retired Allergies Coded Allergies: No Known Allergies (Verified , 01/18/17) Home Medications Scheduled Acetaminophen (Tylenol), 650 MG PO PRN Budesonide/Formoterol Fumarate (Symbicort 160/4.5 Inhaler ), 2 PUFFS INH BID Enoxaparin (Lovenox), 80 MG SQ Q12H Fentanyl (Duragesic), 100-112 MCG TOP Q72HRS Tamsulosin HCl (Tamsulosin HCl), 0.4 MG PO HS Scheduled PRN Albuterol Sulfate (Proventil Hfa), 2 PUFFS INH QID PRN for Wheezing Morphine Sulfate (Morphine Sulfate), 15 MG PO Q4H PRN for Pain Ondansetron Hcl (Zofran), 8 MG PO PRN PRN for Nausea Current Inpatient Medications Current Inpatient Medications Medications (Trade) Dose Ordered Sig/Abbi Route Start Time Stop Time Status Last Admin Dose Admin Acetaminophen (Tylenol Tab) 650 mg Q4H PRN PO 01/18/17 19:30 02/17/17 19:29 Al Hydrox/Mg Hydrox/Simethicone (Maalox Max Susp) 15 ml Q4H PRN PO 01/18/17 19:30 02/17/17 19:29 Magnesium Hydroxide (Milk Of Magnesia Susp) 30 ml Q12H PRN PO 01/18/17 19:30 02/17/17 19:29 Zolpidem Tartrate (Ambien Tab) 5 mg HSZ PRN PO 01/18/17 19:30 02/17/17 19:29 Ondansetron HCl (Zofran Inj) 4 mg Q6H PRN IV 01/18/17 19:30 02/17/17 19:29 Morphine Sulfate (MoRPHine SULFATE INJ) 2 mg Q30M PRN IV 01/18/17 19:30 02/01/17 19:29 Polyethylene (Miralax Powder Packet) 17 gm DAILY PRN PO 01/18/17 19:30 02/17/17 19:29 Miscellaneous (Iv Fluids Completed) 1 ea PRN PRN N/A 01/18/17 20:00 01/18/18 19:59 Albuterol/ Ipratropium (Duoneb) 3 ml Q6R PRN INH 01/19/17 04:00 02/18/17 03:59 Heparin Sodium (Porcine) (Heparin 100 Unit/ml 5ml Flush) 5 ml PRN PRN IV 01/19/17 04:15 02/18/17 04:14 Acetaminophen (Tylenol Tab) 650 mg PRN PO 01/19/17 10:45 02/18/17 10:44 UNV Albuterol (Ventolin Hfa Inhaler) 2 puffs QID PRN INH 01/19/17 10:45 02/18/17 10:44 UNV Budesonide/ Formoterol Fumarate (Symbicort 160/ 4.5 Inh) 2 puffs BID INH 01/19/17 21:00 02/18/17 20:59 UNV Fentanyl (Duragesic Patch) 100 mcg Q72H TD 01/19/17 10:45 02/02/17 10:44 UNV Morphine Sulfate (MoRPHine SULFATE IR TAB) 15 mg Q4H PRN PO 01/19/17 10:45 02/02/17 10:44 UNV Ondansetron HCl (Zofran Tab) 8 mg PRN PRN PO 01/19/17 10:45 02/18/17 10:44 UNV Tamsulosin HCl (Flomax Cap) 0.4 mg HS PO 01/19/17 21:00 02/18/17 20:59 UNV Miscellaneous (Fentanyl Patch Remove & Waste) 1 ea Q3D N/A 01/22/17 10:45 02/21/17 10:44 UNV Miscellaneous Information (Check Fentanyl Patch Placement) 1 ea QS N/A 01/19/17 16:00 02/18/17 15:59 UNV Review of Systems Constitutional: No fever, No chills, No sweats ENT: No unusual epistaxis Respiratory: No cough, No hemoptysis Cardiovascular: No chest pain Abdomen: No pain, No nausea, No GI bleeding Musculoskeletal: No joint pain, No muscle pain Genitourinary - Male: + hematuria, + dysuria, No urinary hesitancy Hematologic / Lymphatic: No abnormal bleeding/bruising Physical Exam Date Time Temp Pulse Resp B/P (MAP) Pulse Ox O2 Delivery O2 Flow Rate FiO2 01/19/17 08:00 Nasal Cannula 01/19/17 07:46 36.9 77 16 112/60 (77) 99 01/19/17 05:04 Room Air 01/19/17 03:44 73 101/58 01/19/17 02:44 86 119/52 01/19/17 02:14 77 114/67 01/19/17 02:03 83 16 98 Nasal Cannula 3.0 01/19/17 01:56 36.9 81 16 122/55 97 3.0 01/19/17 01:28 80 125/71 99 01/19/17 00:28 88 116/65 97 01/18/17 23:59 Room Air 01/18/17 23:28 84 116/65 01/18/17 23:28 83 112/60 01/18/17 23:09 38.9 90 16 111/66 96 01/18/17 21:00 36.9 93 18 118/63 96 01/18/17 20:59 113/63 01/18/17 20:55 36.9 94 16 118/63 96 Nasal Cannula 3.0 01/18/17 20:02 37.6 88 20 93/57 96 3.0 01/18/17 19:07 87 22 106/60 98 Nasal Cannula 3.0 01/18/17 17:05 36.8 82 18 124/78 98 Room Air General Appearance: WD/WN, no apparent distress Eyes: EOMI, sclerae normal (anicteric) ENT: pharynx normal, + pertinent finding (no purpura) Respiratory/Chest: lungs clear Cardiovascular: regular rate, rhythm Abdomen/GI: non tender, soft Extremities/Musculoskelatal: no pedal edema Neurologic/Psych: alert, oriented x 3 Skin: no rash Laboratory Results Last 24 Hours Test 01/18/17 18:00 01/18/17 20:45 01/18/17 21:26 01/19/17 05:46 White Blood Count 0.61 K/uL 0.71 K/uL 0.71 K/uL Red Blood Count 2.91 M/uL 2.54 M/uL 2.78 M/uL Hemoglobin 8.3 g/dL 7.1 g/dL 8.0 g/dL Hematocrit 25.7 % 22.6 % 24.4 % Mean Corpuscular Volume 88.3 fL 89.0 fL 87.8 fL Mean Corpuscular Hemoglobin 28.5 pg 28.0 pg 28.8 pg Mean Corpuscular Hemoglobin Concent 32.3 g/dl 31.4 g/dl 32.8 g/dl Platelet Count 16 K/uL 87 K/uL 55 K/uL Mean Platelet Volume 9.3 fL 9.1 fL 9.4 fL Neutrophils (%) (Auto) 14.8 % Lymphocytes (%) (Auto) 67.2 % Monocytes (%) (Auto) 18.0 % Eosinophils (%) (Auto) 0.0 % Basophils (%) (Auto) 0.0 % Neutrophils # (Auto) 0.09 K/uL Lymphocytes # (Auto) 0.41 K/uL Monocytes # (Auto) 0.11 K/uL Eosinophils # (Auto) 0.00 K/uL Basophils # (Auto) 0.00 K/uL RDW Standard Deviation 46.8 fL 47.9 fL 46.5 fL RDW Coefficient of Variation 14.6 % 14.8 % 14.7 % Immature Granulocyte % (Auto) 0.0 % Immature Granulocyte # (Auto) 0.00 K/uL Platelet Estimate SIGNIFIC DECREASED Red Blood Cell Morphology Unremarkable Prothrombin Time 11.4 SECONDS Prothromb Time International Ratio 1.1 Activated Partial Thromboplast Time 40.7 SECONDS Partial Thromboplastin Ratio 1.6 Sodium Level 134 mmol/L Potassium Level 4.2 mmol/L Chloride Level 95 mmol/L Carbon Dioxide Level 36 mmol/L Anion Gap 3.0 mmol/L Blood Urea Nitrogen 14 mg/dl Creatinine 0.31 mg/dl Estimated GFR () > 150.0 Estimated GFR (Non- 137.4 BUN/Creatinine Ratio 43.9 Random Glucose 93 mg/dl Calcium Level 9.3 mg/dl Total Bilirubin 0.4 mg/dl Direct Bilirubin 0.2 mg/dl Aspartate Amino Transf (AST/SGOT) 22 U/L Alanine Aminotransferase (ALT/SGPT) 29 U/L Alkaline Phosphatase 180 U/L Total Protein 6.6 gm/dl Albumin 2.3 gm/dl Lipase 60 U/L Urine Color DARK YELLOW Urine Appearance CLOUDY Urine pH 8.0 Urine Specific [place] 1.018 Urine Protein NEG Urine Glucose (UA) NEG Urine Ketones NEG Urine Occult Blood 3+ Urine Nitrite NEG Urine Bilirubin NEG Urine Urobilinogen NEG Urine Leukocyte Esterase TRACE Urine WBC (Auto) 5-10 /hpf Urine RBC (Auto) >30 /hpf Urine Hyaline Casts (Auto) 5-10 /lpf Urine Epithelial Cells (Auto) >30 /lpf Urine Bacteria (Auto) 1+ Urine Renal Epithelial Cells /lpf Urine Mucus PRESENT Assessment & Plan Mr. Hagan's counts are lower than I would have anticipated at this point in his cycle. He's nearly 2 weeks out from treatment and should be on the uptrend by now. While spontaneous mucosal bleeding is certainly possible with a platelet count below 20K, given that this is the second presentation for gross hematuria and that his platelets were totally normal during the last stay, I would favor him being evaluated by urology during this stay. His platelet count should be adequate for a cystoscopy if one is indicated. If they fall again, which I anticipate they might (platelets do not last long in circulation), we could give him another transfusion prior to a procedure. I would not give him any GCSF or a PRBC transfusion at this point. We will definitely need to lower his doses of chemo moving forward.
[2017-01-19] MEDS ORDERED: FENTANYL PATCH REMOVE & WASTE ONE (11:59)
[2017-01-19] MEDS ORDERED: FENTANYL 100 MCG/HR TDSY TD SCH (12:00)
--- NOTE | 2017-01-19 14:23 | GENITOURINARY CONSULTATION ---
DATE OF CONSULTATION: 01/19/2017 REASON FOR THE CONSULT: Gross hematuria. 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 He was admitted a week ago after having some hematuria and then transiently some difficulty voiding. While in the Emergency Room, three attempts were made by the nursing staff to place a catheter because he was unable to void, but after these attempts, which were painful, the patient was able to void and has been able to void since then. He has been placed on an alpha chandrika, tamsulosin and has been voiding slightly better. Prior to this, the patient had nocturia 2-3 times, slightly decreased flow, did have a history in the past of a urinary tract infection. During his last admission, he had a bladder ultrasound because the CT scan is difficult to interpret his bladder because of hip surgery. The bladder ultrasound did not show any wall abnormalities. His prostate is moderately enlarged. He had a normal PSA of 1.45 in October of 2016. Denies ever having seen an urologist before. Denies having hematuria in the past. The patient was discharged 3-4 days ago and came back yesterday with recurrent gross hematuria. He is not having clots. His urine has cleared today. The patient states that when he sees the blood, it is usually bloody in the beginning and then clears during the middle and then may be a little bit of trickle of blood at the end. This sounds consistent with blood from the prostate and/or urethral area. PAST MEDICAL HISTORY: Medical problems include adenocarcinoma, primary unknown, getting chemotherapy Currently; COPD, the patient does have a long history of smoking, but quit 2 years ago; coronary artery disease; and history of pulmonary emboli. ALLERGIES: The patient has no known drug allergies. MEDICATIONS: Include Lovenox, Duragesic, tamsulosin, Symbicort, Tylenol, and also takes p.r.n. morphine, albuterol and Zofran. REVIEW OF SYSTEMS: Please refer to the admission review of systems. There has been no change since he is hospitalized. PHYSICAL EXAMINATION: GENERAL APPEARANCE: The patient is a pale, thin male in no apparent distress. He is wearing oxygen. HEAD: Within normal limits. EYES: Normal. ENT: Grossly normal. NECK: Without obvious abnormality. ABDOMEN: Benign. The abdomen is soft and nontender. BACK: Normal. No CVA tenderness. MUSCULOSKELETAL: Normal. PSYCHOLOGICAL: Normal. GENITOURINARY: Normal male phallus. Testes are normal. Prostate exam is 40 grams and benign. NEUROLOGIC: He is alert and oriented without obvious focal or sensory deficits. LABORATORY DATA: The patient has a low white blood cell count on admission. His platelet count was 16. His PTT was 40. ASSESSMENT AND PLAN: The patient's urine has cleared since he has been admitted. He has not had problems with clot retention except for the questionable admission 10 days ago. Discussed the issue with the patient. We would start the patient on finasteride. He also needs to have an outpatient cystoscopy and a cytology. Do not suspect that the patient has significant bladder cancer, although he could have a small bladder tumor, suspect this is probably from the prostate. He could have a stricture given that the difficulty placing the catheter. Trauma from the catheter did not help, but given his low platelet count and Lovenox use, hopefully starting him on finasteride will begin to help. Obviously, his other problems far outweigh these problems with hematuria . No reason to emergently address this situation today given that there is no gross hematuria at this time and given that his low platelet count and coagulation make addressing a tumor impossible. We will again assess as an outpatient. I reassured them that small amount of bleeding is not significantly a problem, although with his low hematocrit if he has ongoing bleeding, will have to be monitored. Assumed that because he is getting chemotherapy, his blood counts are being monitored on a regular basis. Again without significant hematuria throughout his entire stream with clots, I do not think that it is likely that the hematuria is going to cause worsening of his anemia. I would be glad to see the patient further, but otherwise we will have him call our office on Friday to arrange a cystoscopy in the next week to 10 days. ALDAIR
[2017-01-19] MEDS: CHECK FENTANYL PATCH PLACEMENT SCH ×2 (16:00→21:44)
[2017-01-19] MEDS: BUDESONIDE/FORMOTEROL FUMARATE 160/4.5 60 PUFFS/INHALER INH SCH (19:19)
[2017-01-19] MEDS: FINASTERIDE 5 MG TAB PO SCH (21:22)
[2017-01-19] MEDS: TAMSULOSIN HCL 0.4 MG CAP PO SCH (21:44)
[2017-01-20] VITALS (9 sets, daily range): BP systolic 98–113; BP diastolic 52–69; PULSE 67–88; TEMP 36.5–37.2; O2SAT 96–98
[2017-01-20] MEDS ORDERED: NURSING VERBAL MED ORDER ONE (05:15)
[2017-01-20 06:43] LABS: INR 1.1 (0.9-1.1); PARTIAL THROMBOPLASTIN RATIO 1.5; PROTHROMBIN TIME (PATIENT) 11.7 SECONDS (9.0-12.0)
[2017-01-20 06:49] LABS: HEMATOCRIT 25.1 % (42-52); MEAN CELL VOLUME 89.6 fL (80-100); MEAN CORPUSCULAR HEMOGLOBIN 28.6 pg (25-34); MEAN CORPUSCULAR HGB CONC 31.9 g/dl (32-36); MEAN PLATELET VOLUME 8.8 fL (7.4-10.4); PLATELET COUNT 50 K/uL (130-400); WHITE BLOOD COUNT 0.75 K/uL (4.8-10.8)
[2017-01-20 07:05] LABS: BLOOD UREA NITROGEN 11 mg/dl (7-18); BUN/CREATININE RATIO 40.3 (10-20); CALCIUM 8.9 mg/dl (8.5-10.1); CARBON DIOXIDE 35 mmol/L (21-32); CHLORIDE 97 mmol/L (98-107); CREATININE 0.27 mg/dl (0.60-1.40); GLUCOSE 85 mg/dl (70-99); POTASSIUM 3.8 mmol/L (3.5-5.1); SODIUM 136 mmol/L (136-145)
[2017-01-20] MEDS: HEPARIN IV LOW DOSE NO BOLUS SCH (07:36)
[2017-01-20 08:14] LABS: COMPLETE YES; LYMPH ABS # 0.56 K/uL (1.2-3.4)
[2017-01-20] MEDS: FINASTERIDE 5 MG TAB PO SCH (08:26)
[2017-01-20] MEDS: BUDESONIDE/FORMOTEROL FUMARATE 160/4.5 60 PUFFS/INHALER INH SCH ×2 (08:26→19:44)
[2017-01-20] MEDS: CHECK FENTANYL PATCH PLACEMENT SCH ×3 (08:27→23:52)
--- NOTE | 2017-01-20 08:48 | Progress Note ---
Subjective Date of Service: Jan 20, 2017. Subjective Pt evaluation today including: conversation w/ patient, chart review, lab review 66 yo male with metastatic lung cancer to prostate. Admitted with gross hematuria. Pt reports a small amount of blood at start of stream this morning, but urine has remained mostly clear. Denies difficulty voiding. UC&S preliminarily negative. Urine cytology pending. H&H stable. Problem List Medical Problems: (1) Anemia Status: Acute (2) Bilateral pulmonary embolism Status: Acute (3) Dehydration Status: Acute (4) Dehydration Status: Acute (5) Dysuria Status: Acute (6) Generalized weakness Status: Acute (7) Hematuria Status: Acute (8) Hematuria Status: Acute (9) Hematuria Status: Acute (10) Hypotension Status: Acute (11) Hypotension Status: Acute (12) Hypoxia Status: Chronic (13) Left rib fracture Status: Acute (14) Lung cancer Status: Acute (15) Mediastinal lymphadenopathy Status: Acute (16) Metastatic lung cancer (metastasis from lung to other site) Status: Acute (17) Neutropenia Status: Acute (18) Non-traumatic compression fracture of T5 thoracic vertebra Status: Acute (19) Osteolytic 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 Status: Acute (20) Pathological fracture of rib of right side Status: Acute (21) Pulmonary nodules Status: Acute (22) SVT (supraventricular tachycardia) Status: Acute (23) Thrombocytopenia Status: Acute Review of Systems Constitutional: No fever, No chills Respiratory: No shortness of breath Cardiac: No chest pain Abdomen: No pain, No nausea, No vomiting Male : No hematuria Heme: No abnormal bleeding/bruising Objective Vital Signs Date Time Temp Pulse Resp B/P (MAP) Pulse Ox O2 Delivery O2 Flow Rate FiO2 01/20/17 08:07 36.8 67 17 98/52 (67) 97 Nasal Cannula 3.0 01/20/17 04:00 Room Air 01/20/17 03:50 36.8 71 20 106/58 (74) 97 Nasal Cannula 3.0 01/20/17 00:00 Room Air 01/20/17 00:00 37.1 84 18 102/53 (69) 96 Room Air 01/19/17 20:00 Room Air 01/19/17 19:40 36.8 68 18 91/53 (66) 95 01/19/17 19:32 59 16 98 Nasal Cannula 3.0 01/19/17 16:12 36.9 89 16 101/59 (73) 96 01/19/17 16:00 Nasal Cannula 01/19/17 12:00 Nasal Cannula 01/19/17 11:30 36.8 81 16 98/57 (71) 96 Physical Exam General Appearance: no apparent distress Eyes: normal inspection ENT: hearing grossly normal Neck: no JVD Respiratory/Chest: no respiratory distress, no accessory muscle use, + pertinent finding (nasal cannula O2 in place) Cardiovascular: no JVD Extremities: normal inspection 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: alert, normal mood/affect, oriented x 3 Skin: normal color Laboratory Results Last 24 Hours Test 01/20/17 05:49 White Blood Count 0.75 K/uL Red Blood Count 2.80 M/uL Hemoglobin 8.0 g/dL Hematocrit 25.1 % Mean Corpuscular Volume 89.6 fL Mean Corpuscular Hemoglobin 28.6 pg Mean Corpuscular Hemoglobin Concent 31.9 g/dl RDW Standard Deviation 47.5 fL RDW Coefficient of Variation 14.6 % Platelet Count 50 K/uL Mean Platelet Volume 8.8 fL Neutrophils % (Manual) 15.0 % Lymphocytes % (Manual) 74.0 % Monocytes % (Manual) 11.0 % Neutrophils # (Manual) 0.11 K/uL Total Absolute Neutrophils 0.11 K/uL Lymphocytes # (Manual) 0.56 K/uL Total Absolute Lymphocytes 0.56 K/uL Monocytes # (Manual) 0.08 K/uL Prothrombin Time 11.7 SECONDS Prothromb Time International Ratio 1.1 Activated Partial Thromboplast Time 38.1 SECONDS Partial Thromboplastin Ratio 1.5 Sodium Level 136 mmol/L Potassium Level 3.8 mmol/L Chloride Level 97 mmol/L Carbon Dioxide Level 35 mmol/L Anion Gap 4.0 mmol/L Blood Urea Nitrogen 11 mg/dl Creatinine 0.27 mg/dl Est Creatinine Clear Calc Drug Dose 277.9 ml/min Estimated GFR () > 150.0 Estimated GFR (Non- 145.5 BUN/Creatinine Ratio 40.3 Random Glucose 85 mg/dl Calcium Level 8.9 mg/dl Assessment and Plan A/P: Gross hematuria Hematuria improved. Continue tamsulosin and finasteride. Will plan for outpatient cysto with Dr. Shepherd in the next 10 days. No further management at this time. Recall PRN issues. Thank you for allowing us to participate in this pt's care. Continued [facility] stay due to: other
--- NOTE | 2017-01-20 11:44 | Hematology/Oncology Prog Note ---
Hematology/Onc Progress Note Date of Service Jan 20, 2017. Diagnoses metastatic adenocarcinoma probable lung primary Pancytopenia presumably secondary to chemotherapy Medications Medications Administered Medications (Trade) Dose Ordered Sig/Abbi Route Start Time Stop Time Status Last Admin Dose Admin Sodium Chloride 250 ml @ 999 mls/hr Q16M STAT IV 01/18/17 17:26 01/18/17 17:41 DC 01/18/17 17:26 999 MLS/HR Sodium Chloride 1,000 ml @ 100 mls/hr Q10H STAT IV 01/18/17 17:26 01/19/17 03:25 DC 01/18/17 17:26 100 MLS/HR Albuterol/ Ipratropium (Duoneb) 3 ml Q6R INH 01/19/17 03:00 01/19/17 03:49 DC 01/19/17 02:03 3 ML Albuterol/ Ipratropium (Duoneb) 3 ml Q6R PRN INH 01/19/17 04:00 02/18/17 03:59 01/19/17 19:32 3 ML Budesonide/ Formoterol Fumarate (Symbicort 160/ 4.5 Inh) 2 puffs BID INH 01/19/17 21:00 02/18/17 20:59 01/20/17 08:26 2 PUFFS Tamsulosin HCl (Flomax Cap) 0.4 mg HS PO 01/19/17 21:00 02/18/17 20:59 01/19/17 21:44 0.4 MG Miscellaneous Information (Check Fentanyl Patch Placement) 1 ea QS N/A 01/19/17 16:00 02/18/17 15:59 01/20/17 08:27 1 EA Finasteride (Proscar Tab) 5 mg QAM PO 01/20/17 09:00 02/19/17 08:59 01/20/17 08:26 5 MG Subjective Seems to be doing fairly well. Has a history of pulmonary emboli. Currently is off anticoagulation as his platelets are recovering. Today's platelet number is 50,000. There has been no overt bleeding that he can see. The urine that he states that he had this morning seem to be free of blood. He Remains afebrile. Review of Systems: Constitutional: Negative for weight loss, night sweats, or fever Eyes: Negative for event change of vision ENT: Negative for epistaxis, nasal discharge, sore throat, or deafness Cardiovascular: Negative for chest pain, palpitations, dizziness, diaphoresis Respiratory: Negative for new shortness of breath,hemoptysis, or purulent cough Gastrointestinal: Negative for diarrhea, hematemesis, melena, nausea, vomiting , or dyspepsia Integumentary (skin): Negative for rash or jaundice discoloration Genitourinary: Negative for urinary frequency, hematuria today, or dysuria Neurological: Negative for weakness, seizure activity, headache, or dizziness Lymphatic/Hematologic: Negative for petechiae, bleeding or new adenopathy Musculoskeletal: Negative for new joint or back pain Allergic/Immunologic: Negative for unusual rash or pruritis. Vital Signs Vital Signs Past 12 Hours Date Time Temp Pulse Resp B/P (MAP) Pulse Ox O2 Delivery O2 Flow Rate FiO2 01/20/17 11:20 36.9 81 18 109/60 (76) 96 Nasal Cannula 2.0 01/20/17 08:07 36.8 67 17 98/52 (67) 97 Nasal Cannula 3.0 01/20/17 08:00 Room Air 01/20/17 04:00 Room Air 01/20/17 03:50 36.8 71 20 106/58 (74) 97 Nasal Cannula 3.0 01/20/17 00:00 Room Air 01/20/17 00:00 37.1 84 18 102/53 (69) 96 Room Air Physical Exam Constitutional: vitals are stable. Eyes: Eyes are EVE EOMI without conjuctival erythema or icterus. ENT: External examination was negative for masses. Neck: Negative for masses or palpable thyromegaly Respiratory: Lung sounds were generally clear bilaterally Cardiovascular: Heart was RRR without significant murmur, gallops aoe rubs Gastrointestinal: No palpable hepatic or splenomegaly. The abdomen was soft with normal bowel sounds. Lymphatic system: there was no palpable peripheral lymphadenopathy Musculoskeletal System: The musculoskeletal system seemed concordant with age. Skin: The skin was negative for jaundice. Neurologic exam: The exam was negative for any focal findings. Deep tendon reflexes were equal and symmetrical. Psychiatric exam: Was essentially negative with normal mood and effect. Laboratory Last 24 Hours Test 01/20/17 05:49 White Blood Count 0.75 K/uL Red Blood Count 2.80 M/uL Hemoglobin 8.0 g/dL Hematocrit 25.1 % Mean Corpuscular Volume 89.6 fL Mean Corpuscular Hemoglobin 28.6 pg Mean Corpuscular Hemoglobin Concent 31.9 g/dl RDW Standard Deviation 47.5 fL RDW Coefficient of Variation 14.6 % Platelet Count 50 K/uL Mean Platelet Volume 8.8 fL Neutrophils % (Manual) 15.0 % Lymphocytes % (Manual) 74.0 % Monocytes % (Manual) 11.0 % Neutrophils # (Manual) 0.11 K/uL Total Absolute Neutrophils 0.11 K/uL Lymphocytes # (Manual) 0.56 K/uL Total Absolute Lymphocytes 0.56 K/uL Monocytes # (Manual) 0.08 K/uL Prothrombin Time 11.7 SECONDS Prothromb Time International Ratio 1.1 Activated Partial Thromboplast Time 38.1 SECONDS Partial Thromboplastin Ratio 1.5 Sodium Level 136 mmol/L Potassium Level 3.8 mmol/L Chloride Level 97 mmol/L Carbon Dioxide Level 35 mmol/L Anion Gap 4.0 mmol/L Blood Urea Nitrogen 11 mg/dl Creatinine 0.27 mg/dl Est Creatinine Clear Calc Drug Dose 277.9 ml/min Estimated GFR () > 150.0 Estimated GFR (Non- 145.5 BUN/Creatinine Ratio 40.3 Random Glucose 85 mg/dl Calcium Level 8.9 mg/dl Assessment & Plan Hopefully his blood counts are recovering now. White cell number is climbing albeit slowly. At this juncture I believe we could avoid G-CSF. Platelet count is 50,000 today. We not transfuse the platelets or begin Lovenox just yet. Let us see what tomorrow's counts are. If greater than 50,000 then I believe Lovenox can be resumed. We will continue to follow along with you. He is aware that a cystoscopy as an outpatient would be warranted.
--- NOTE | 2017-01-20 14:23 | Family Medicine Progress Note ---
Progress Note Date of Service Jan 20, 2017. Subjective Pt evaluation today including: conversation w/ patient, physical exam, chart review, lab review, conversation w/ application consultant, review of inpatient medication list Pain: none PO Intake: good Voiding: no voiding problems Patient with very minimal hematuria at the beginning of urination Denies any fevers, night sweats or chills Denies any bleeding elsewhere on his body Constitutional: No fever, No chills, No sweats Respiratory: No cough, No sputum, No shortness of breath Cardiovascular: No chest pain, No edema, No palpitations Abdomen: No pain, No nausea, No vomiting, No diarrhea Male : + hematuria, No dysuria Heme: No abnormal bleeding/bruising Medications Current Inpatient Medications Medications (Trade) Dose Ordered Sig/Abbi Route Start Time Stop Time Status Last Admin Dose Admin Acetaminophen (Tylenol Tab) 650 mg Q4H PRN PO 01/18/17 19:30 02/17/17 19:29 Al Hydrox/Mg Hydrox/Simethicone (Maalox Max Susp) 15 ml Q4H PRN PO 01/18/17 19:30 02/17/17 19:29 Magnesium Hydroxide (Milk Of Magnesia Susp) 30 ml Q12H PRN PO 01/18/17 19:30 02/17/17 19:29 Zolpidem Tartrate (Ambien Tab) 5 mg HSZ PRN PO 01/18/17 19:30 02/17/17 19:29 Ondansetron HCl (Zofran Inj) 4 mg Q6H PRN IV 01/18/17 19:30 02/17/17 19:29 Morphine Sulfate (MoRPHine SULFATE INJ) 2 mg Q30M PRN IV 01/18/17 19:30 02/01/17 19:29 Polyethylene (Miralax Powder Packet) 17 gm DAILY PRN PO 01/18/17 19:30 02/17/17 19:29 Miscellaneous (Iv Fluids Completed) 1 ea PRN PRN N/A 01/18/17 20:00 01/18/18 19:59 Albuterol/ Ipratropium (Duoneb) 3 ml Q6R PRN INH 01/19/17 04:00 02/18/17 03:59 01/19/17 19:32 3 ML Heparin Sodium (Porcine) (Heparin 100 Unit/ml 5ml Flush) 5 ml PRN PRN IV 01/19/17 04:15 02/18/17 04:14 Albuterol (Ventolin Hfa Inhaler) 2 puffs QID PRN INH 01/19/17 10:45 02/18/17 10:44 Budesonide/ Formoterol Fumarate (Symbicort 160/ 4.5 Inh) 2 puffs BID INH 01/19/17 21:00 02/18/17 20:59 01/20/17 08:26 2 PUFFS Morphine Sulfate (MoRPHine SULFATE IR TAB) 15 mg Q4H PRN PO 01/19/17 10:45 02/02/17 10:44 Tamsulosin HCl (Flomax Cap) 0.4 mg HS PO 01/19/17 21:00 02/18/17 20:59 01/19/17 21:44 0.4 MG Miscellaneous Information (Check Fentanyl Patch Placement) 1 ea QS N/A 01/19/17 16:00 02/18/17 15:59 01/20/17 08:27 1 EA Miscellaneous (Fentanyl Patch Remove & Waste) 1 ea Q3D@0859 N/A 01/21/17 08:59 02/20/17 08:58 Fentanyl (Duragesic Patch) 100 mcg Q3D@0900 TD 01/21/17 09:00 02/04/17 08:59 Finasteride (Proscar Tab) 5 mg QAM PO 01/20/17 09:00 02/19/17 08:59 01/20/17 08:26 5 MG Heparin Sodium/ Dextrose 1 ea Q15M N/A 01/20/17 04:02 02/19/17 04:01 Future Hold Objective Vital Signs Date Time Temp Pulse Resp B/P (MAP) Pulse Ox O2 Delivery O2 Flow Rate FiO2 01/20/17 12:00 Room Air 01/20/17 11:20 36.9 81 18 109/60 (76) 96 Nasal Cannula 2.0 01/20/17 08:07 36.8 67 17 98/52 (67) 97 Nasal Cannula 3.0 01/20/17 08:00 Room Air 01/20/17 04:00 Room Air 01/20/17 03:50 36.8 71 20 106/58 (74) 97 Nasal Cannula 3.0 01/20/17 00:00 Room Air 01/20/17 00:00 37.1 84 18 102/53 (69) 96 Room Air 01/19/17 20:00 Room Air 01/19/17 19:40 36.8 68 18 91/53 (66) 95 01/19/17 19:32 59 16 98 Nasal Cannula 3.0 01/19/17 16:12 36.9 89 16 101/59 (73) 96 01/19/17 16:00 Nasal Cannula Physical Exam General Appearance: WD/WN, no apparent distress Neck: supple, no JVD, no carotid bruits Respiratory/Chest: lungs clear, no respiratory distress, no accessory muscle use Cardiovascular: regular rate, rhythm, no JVD, no murmur Abdomen: normal bowel sounds, non tender, soft Extremities: non-tender, no calf tenderness, normal capillary refill, + pertinent finding (chronic venous changes in both extremities bilaterally, good peripheral pulses) 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: alert, normal mood/affect, oriented x 3 Skin: normal color, warm/dry, no rash Laboratory Results Results Past 24 Hours Test 01/20/17 05:49 Range/Units White Blood Count 0.75 4.8-10.8 K/uL Red Blood Count 2.80 4.7-6.1 M/uL Hemoglobin 8.0 14.0-18.0 g/dL Hematocrit 25.1 42-52 % Mean Corpuscular Volume 89.6 80-100 fL Mean Corpuscular Hemoglobin 28.6 25-34 pg Mean Corpuscular Hemoglobin Concent 31.9 32-36 g/dl RDW Standard Deviation 47.5 36.4-46.3 fL RDW Coefficient of Variation 14.6 11.5-14.5 % Platelet Count 50 130-400 K/uL Mean Platelet Volume 8.8 7.4-10.4 fL Neutrophils % (Manual) 15.0 % Lymphocytes % (Manual) 74.0 % Monocytes % (Manual) 11.0 % Neutrophils # (Manual) 0.11 1.4-6.5 K/uL Total Absolute Neutrophils 0.11 1.4-6.5 K/uL Lymphocytes # (Manual) 0.56 1.2-3.4 K/uL Total Absolute Lymphocytes 0.56 1.2-3.4 K/uL Monocytes # (Manual) 0.08 0.11-0.59 K/uL Prothrombin Time 11.7 9.0-12.0 SECONDS Prothromb Time International Ratio 1.1 0.9-1.1 Activated Partial Thromboplast Time 38.1 21.0-31.0 SECONDS Partial Thromboplastin Ratio 1.5 Sodium Level 136 136-145 mmol/L Potassium Level 3.8 3.5-5.1 mmol/L Chloride Level 97 98-107 mmol/L Carbon Dioxide Level 35 21-32 mmol/L Anion Gap 4.0 3-11 mmol/L Blood Urea Nitrogen 11 7-18 mg/dl Creatinine 0.27 0.60-1.40 mg/dl Est Creatinine Clear Calc Drug Dose 277.9 ml/min Estimated GFR () > 150.0 Estimated GFR (Non- 145.5 BUN/Creatinine Ratio 40.3 10-20 Random Glucose 85 70-99 mg/dl Calcium Level 8.9 8.5-10.1 mg/dl Assessment and Plan 66 year old male with PMHx metastatic non small cell lung cancer (mets to liver , bone) currently receiving chemo with Pemetrexed and Carboplatinum, with pancytopenia, bilateral PEs with Lovenox treatment ongoing since October, SVT, AAA , COPD, CAD. Presents with a primary complaint of hematuria. Initial labs reveal severe pancytopenia Hematuria - Likely related to low platelet count---> continues to trend down - s/p transfusion of 2 units platelets, with some improvement in platelets - No further bleeding - Urology consulted, believe hematuria related to prostate. Recommend starting finasteride to current tamsulosin regimen, and outpatient cystoscopy and cytology in 1 week. - Will continue to follow daily cbc and start enoxaparin when platelet count stable - Hold enoxaparin for now Pancytopenia - Likely secondary to chemotherapy - s/p transfusion of 1 unit pRBC, with some improvement in WBC - Heme/onc consulted regarding Neupogen use--> decided to hold off on neupogen for now - Trend CBC Hx of PEs - Lovenox is held. - Given no current urology interventions, and improvement in hematuria, low dose heparin without bolus started - Heme/onc consulted, home management to be discussed/determined. Metastatic non-small cell lung cancer - Management as per heme/onc COPD - No evidence of exacerbation, continue home inhalers as prescribed. CAD - No evidence of ACS - no related treatment at present. VTE PPx - SCDs - Trial heparin drip Full code Continued [facility] stay due to: multiple IV medications needed Reviewed: Pt Seen/Exam by Me History no blood in urine Constitutional: denies: fever Respiratory: negative: short of breath Cardiovascular: denies chest pain General Appearance: no apparent distress Respiratory: lungs clear, no respiratory distress Cardiovascular: regular rate, rhythm 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: alert, oriented x 3 Assessment/Plan Resident Physician Supervision Note: I was present with Dr. Denney in bedside. I verified the thurman history and physical, reviewed labs and image studies, discussed the case with the resident and agree with the findings and care plan.
[2017-01-20] MEDS: TAMSULOSIN HCL 0.4 MG CAP PO SCH (19:32)
[2017-01-21] VITALS (8 sets, daily range): BP systolic 89–118; BP diastolic 49–73; PULSE 66–85; TEMP 36.7–36.9; O2SAT 94–98
[2017-01-21 06:46] LABS: BLOOD UREA NITROGEN 9 mg/dl (7-18); BUN/CREATININE RATIO 27.5 (10-20); CALCIUM 8.9 mg/dl (8.5-10.1); CARBON DIOXIDE 36 mmol/L (21-32); CHLORIDE 97 mmol/L (98-107); CREATININE 0.33 mg/dl (0.60-1.40); GLUCOSE 87 mg/dl (70-99); POTASSIUM 3.8 mmol/L (3.5-5.1); SODIUM 137 mmol/L (136-145)
[2017-01-21 06:54] LABS: HEMATOCRIT 25.7 % (42-52); MEAN CELL VOLUME 89.5 fL (80-100); MEAN CORPUSCULAR HEMOGLOBIN 28.6 pg (25-34); MEAN CORPUSCULAR HGB CONC 31.9 g/dl (32-36); MEAN PLATELET VOLUME 9.5 fL (7.4-10.4); PLATELET COUNT 57 K/uL (130-400); RED BLOOD COUNT 2.87 M/uL (4.7-6.1); WHITE BLOOD COUNT 0.99 K/uL (4.8-10.8)
[2017-01-21 07:40] LABS: COMPLETE YES; LYMPH % 63.6 %; LYMPH ABS # 0.63 K/uL (1.2-3.4); MONO % 25.3 %; NEUT % 9.1 %
[2017-01-21] MEDS: BUDESONIDE/FORMOTEROL FUMARATE 160/4.5 60 PUFFS/INHALER INH SCH ×2 (08:38→20:15)
[2017-01-21] MEDS: CHECK FENTANYL PATCH PLACEMENT SCH ×3 (08:38→23:43)
[2017-01-21] MEDS: FINASTERIDE 5 MG TAB PO SCH (08:39)
[2017-01-21] MEDS ORDERED: FENTANYL PATCH REMOVE & WASTE SCH (08:59)
[2017-01-21] MEDS ORDERED: FENTANYL 100 MCG/HR TDSY TD SCH (09:00)
--- NOTE | 2017-01-21 10:00 | Hematology/Oncology Prog Note ---
Hematology/Onc Progress Note Date of Service Jan 21, 2017. Diagnoses metastatic adenocarcinoma probable lung primary Pancytopenia presumably secondary to chemotherapy Medications Medications Administered Medications (Trade) Dose Ordered Sig/Abbi Route Start Time Stop Time Status Last Admin Dose Admin Sodium Chloride 250 ml @ 999 mls/hr Q16M STAT IV 01/18/17 17:26 01/18/17 17:41 DC 01/18/17 17:26 999 MLS/HR Sodium Chloride 1,000 ml @ 100 mls/hr Q10H STAT IV 01/18/17 17:26 01/19/17 03:25 DC 01/18/17 17:26 100 MLS/HR Albuterol/ Ipratropium (Duoneb) 3 ml Q6R INH 01/19/17 03:00 01/19/17 03:49 DC 01/19/17 02:03 3 ML Albuterol/ Ipratropium (Duoneb) 3 ml Q6R PRN INH 01/19/17 04:00 02/18/17 03:59 01/19/17 19:32 3 ML Heparin Sodium (Porcine) (Heparin 100 Unit/ml 5ml Flush) 5 ml PRN PRN IV 01/19/17 04:15 02/18/17 04:14 01/21/17 05:46 5 ML Budesonide/ Formoterol Fumarate (Symbicort 160/ 4.5 Inh) 2 puffs BID INH 01/19/17 21:00 02/18/17 20:59 01/21/17 08:38 2 PUFFS Tamsulosin HCl (Flomax Cap) 0.4 mg HS PO 01/19/17 21:00 02/18/17 20:59 01/20/17 19:32 0.4 MG Miscellaneous Information (Check Fentanyl Patch Placement) 1 ea QS N/A 01/19/17 16:00 02/18/17 15:59 01/21/17 08:38 1 EA Miscellaneous (Fentanyl Patch Remove & Waste) 1 ea Q3D@0859 N/A 01/21/17 08:59 02/20/17 08:58 01/21/17 08:49 1 EA Fentanyl (Duragesic Patch) 100 mcg Q3D@0900 TD 01/21/17 09:00 02/04/17 08:59 01/21/17 08:48 100 MCG Finasteride (Proscar Tab) 5 mg QAM PO 01/20/17 09:00 02/19/17 08:59 01/21/17 08:39 5 MG Subjective Seems to be doing well. Remains afebrile. Does not see or report of any further evidence of hematuria. Review of Systems: Constitutional: Negative for night sweats, or fever Eyes: Negative for event change of vision ENT: Negative for epistaxis, nasal discharge, sore throat, or deafness Cardiovascular: Negative for chest pain, palpitations, dizziness, diaphoresis Respiratory: Negative for new shortness of breath,hemoptysis, or purulent cough Gastrointestinal: Negative for diarrhea, hematemesis, melena, nausea, vomiting , or dyspepsia Integumentary (skin): Negative for rash or jaundice discoloration Genitourinary: Negative for urinary frequency, hematuria, or dysuria Neurological: Negative for weakness, seizure activity, headache, or dizziness Lymphatic/Hematologic: Negative for petechiae, bleeding or new adenopathy Musculoskeletal: Negative for new joint or back pain Allergic/Immunologic: Negative for unusual rash or pruritis. Vital Signs Vital Signs Past 12 Hours Date Time Temp Pulse Resp B/P (MAP) Pulse Ox O2 Delivery O2 Flow Rate FiO2 01/21/17 09:00 Nasal Cannula 3.0 01/21/17 08:30 98 Nasal Cannula 2.0 01/21/17 06:37 36.7 66 18 108/67 (81) 96 Nasal Cannula 3.0 01/21/17 00:26 36.9 77 18 106/69 (81) 95 Room Air 01/21/17 00:00 Nasal Cannula 3.0 Physical Exam Constitutional: vitals are stable. Eyes: Eyes are EVE EOMI without conjuctival erythema or icterus. ENT: External examination was negative for masses. Neck: Negative for masses or palpable thyromegaly Respiratory: Lung sounds were generally clear bilaterally Cardiovascular: Heart was RRR without significant murmur, gallops aoe rubs Gastrointestinal: No palpable hepatic or splenomegaly. The abdomen was soft with normal bowel sounds. Lymphatic system: there was no palpable peripheral lymphadenopathy Musculoskeletal System: The musculoskeletal system seemed concordant with age. Skin: The skin was negative for jaundice. Neurologic exam: The exam was negative for any focal findings. Deep tendon reflexes were equal and symmetrical. Psychiatric exam: Was essentially negative with normal mood and effect. Extremities: Negative for edema erythema Assessment & Plan Platelet count of 57,000 and absolute granulocyte number improving. I believe it safe now to begin therapeutic doses of Lovenox with his history of pulmonary emboli at 1 mg/kg subcu twice daily or 1.5 mg/kg subcu daily. I would hold onto them 1 more day with check of tomorrow's CBC. If all is well tomorrow that I suspect he can be discharged and we will arrange for follow-up in our clinic. Thank you for all your help
--- NOTE | 2017-01-21 10:54 | Family Medicine Progress Note ---
Progress Note Date of Service Jan 21, 2017. Subjective Pt evaluation today including: conversation w/ patient, physical exam, chart review, conversation w/ data integrity consultant, review of inpatient medication list Pain: none PO Intake: good Voiding: no voiding problems Patient without any hematuria overnight Patient with no other complaints. feels well and [place] [address] and will restart lovenox today with plan to monitor for bleeding and continue to monitor CBC Constitutional: No fever, No chills, No sweats Respiratory: No cough, No sputum, No shortness of breath Cardiovascular: No chest pain, No edema, No palpitations Abdomen: No pain, No nausea, No vomiting, No diarrhea, No constipation Male : No dysuria, No urinary frequency, No hematuria Heme: No abnormal bleeding/bruising Medications Current Inpatient Medications Medications (Trade) Dose Ordered Sig/Abbi Route Start Time Stop Time Status Last Admin Dose Admin Acetaminophen (Tylenol Tab) 650 mg Q4H PRN PO 01/18/17 19:30 02/17/17 19:29 Al Hydrox/Mg Hydrox/Simethicone (Maalox Max Susp) 15 ml Q4H PRN PO 01/18/17 19:30 02/17/17 19:29 Magnesium Hydroxide (Milk Of Magnesia Susp) 30 ml Q12H PRN PO 01/18/17 19:30 02/17/17 19:29 Zolpidem Tartrate (Ambien Tab) 5 mg HSZ PRN PO 01/18/17 19:30 02/17/17 19:29 Ondansetron HCl (Zofran Inj) 4 mg Q6H PRN IV 01/18/17 19:30 02/17/17 19:29 Morphine Sulfate (MoRPHine SULFATE INJ) 2 mg Q30M PRN IV 01/18/17 19:30 02/01/17 19:29 Polyethylene (Miralax Powder Packet) 17 gm DAILY PRN PO 01/18/17 19:30 02/17/17 19:29 Miscellaneous (Iv Fluids Completed) 1 ea PRN PRN N/A 01/18/17 20:00 01/18/18 19:59 Albuterol/ Ipratropium (Duoneb) 3 ml Q6R PRN INH 01/19/17 04:00 02/18/17 03:59 01/19/17 19:32 3 ML Heparin Sodium (Porcine) (Heparin 100 Unit/ml 5ml Flush) 5 ml PRN PRN IV 01/19/17 04:15 02/18/17 04:14 01/21/17 05:46 5 ML Albuterol (Ventolin Hfa Inhaler) 2 puffs QID PRN INH 01/19/17 10:45 02/18/17 10:44 Budesonide/ Formoterol Fumarate (Symbicort 160/ 4.5 Inh) 2 puffs BID INH 01/19/17 21:00 02/18/17 20:59 01/21/17 08:38 2 PUFFS Morphine Sulfate (MoRPHine SULFATE IR TAB) 15 mg Q4H PRN PO 01/19/17 10:45 02/02/17 10:44 Tamsulosin HCl (Flomax Cap) 0.4 mg HS PO 01/19/17 21:00 02/18/17 20:59 01/20/17 19:32 0.4 MG Miscellaneous Information (Check Fentanyl Patch Placement) 1 ea QS N/A 01/19/17 16:00 02/18/17 15:59 01/21/17 08:38 1 EA Miscellaneous (Fentanyl Patch Remove & Waste) 1 ea Q3D@0859 N/A 01/21/17 08:59 02/20/17 08:58 01/21/17 08:49 1 EA Fentanyl (Duragesic Patch) 100 mcg Q3D@0900 TD 01/21/17 09:00 02/04/17 08:59 01/21/17 08:48 100 MCG Finasteride (Proscar Tab) 5 mg QAM PO 01/20/17 09:00 02/19/17 08:59 01/21/17 08:39 5 MG Heparin Sodium/ Dextrose 1 ea Q15M N/A 01/20/17 04:02 02/19/17 04:01 Future Hold Objective Vital Signs Date Time Temp Pulse Resp B/P (MAP) Pulse Ox O2 Delivery O2 Flow Rate FiO2 01/21/17 09:00 Nasal Cannula 3.0 01/21/17 08:30 98 Nasal Cannula 2.0 01/21/17 06:37 36.7 66 18 108/67 (81) 96 Nasal Cannula 3.0 01/21/17 00:26 36.9 77 18 106/69 (81) 95 Room Air 01/21/17 00:00 Nasal Cannula 3.0 01/20/17 20:00 Nasal Cannula 3.0 01/20/17 19:30 37.0 82 18 107/69 (82) 98 Nasal Cannula 3.0 01/20/17 17:21 37.2 77 20 98 2.0 01/20/17 16:50 36.5 88 20 112/63 (79) 98 Nasal Cannula 3.0 01/20/17 16:40 98 Nasal Cannula 2.0 01/20/17 16:10 37.2 77 20 113/55 (74) 98 Nasal Cannula 2.0 01/20/17 16:00 Room Air 01/20/17 12:00 Room Air 01/20/17 11:20 36.9 81 18 109/60 (76) 96 Nasal Cannula 2.0 Physical Exam General Appearance: WD/WN, no apparent distress, + pertinent finding (on nasal cannula) ENT: hearing grossly normal Neck: supple, no JVD, no carotid bruits Respiratory/Chest: lungs clear, no respiratory distress, no accessory muscle use Cardiovascular: no murmur Abdomen: normal bowel sounds, non tender, soft Extremities: no pedal edema, no calf tenderness, normal capillary refill, + pertinent finding (chronic venous changes in lower extremities bilaterally) 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: alert, normal mood/affect, oriented x 3 Skin: normal color, warm/dry, no rash Laboratory Results Results Past 24 Hours Test 01/21/17 05:45 Range/Units White Blood Count 0.99 4.8-10.8 K/uL Red Blood Count 2.87 4.7-6.1 M/uL Hemoglobin 8.2 14.0-18.0 g/dL Hematocrit 25.7 42-52 % Mean Corpuscular Volume 89.5 80-100 fL Mean Corpuscular Hemoglobin 28.6 25-34 pg Mean Corpuscular Hemoglobin Concent 31.9 32-36 g/dl Platelet Count 57 130-400 K/uL Mean Platelet Volume 9.5 7.4-10.4 fL Neutrophils (%) (Auto) 9.1 % Lymphocytes (%) (Auto) 63.6 % Monocytes (%) (Auto) 25.3 % Eosinophils (%) (Auto) 1.0 % Basophils (%) (Auto) 0.0 % Neutrophils # (Auto) 0.09 1.4-6.5 K/uL Lymphocytes # (Auto) 0.63 1.2-3.4 K/uL Monocytes # (Auto) 0.25 0.11-0.59 K/uL Eosinophils # (Auto) 0.01 0-0.5 K/uL Basophils # (Auto) 0.00 0-0.2 K/uL RDW Standard Deviation 47.1 36.4-46.3 fL RDW Coefficient of Variation 14.4 11.5-14.5 % Immature Granulocyte % (Auto) 1.0 % Immature Granulocyte # (Auto) 0.01 0.00-0.02 K/uL Red Blood Cell Morphology Unremarkable Sodium Level 137 136-145 mmol/L Potassium Level 3.8 3.5-5.1 mmol/L Chloride Level 97 98-107 mmol/L Carbon Dioxide Level 36 21-32 mmol/L Anion Gap 4.0 3-11 mmol/L Blood Urea Nitrogen 9 7-18 mg/dl Creatinine 0.33 0.60-1.40 mg/dl Est Creatinine Clear Calc Drug Dose 227.4 ml/min Estimated GFR () > 150.0 Estimated GFR (Non- 134.0 BUN/Creatinine Ratio 27.5 10-20 Random Glucose 87 70-99 mg/dl Calcium Level 8.9 8.5-10.1 mg/dl Assessment and Plan 66 year old male with PMHx metastatic non small cell lung cancer (mets to liver , bone) currently receiving chemo with Pemetrexed and Carboplatinum, with pancytopenia, bilateral PEs with Lovenox treatment ongoing since October, SVT, AAA , COPD, CAD. Presents with a primary complaint of hematuria. Initial labs reveaed pancytopenia Hematuria - Likely related to low platelet count---> [place] [address] - s/p transfusion of 2 units platelets, with some improvement in platelets - No further bleeding - Urology consulted, believe hematuria related to prostate. Recommend starting finasteride to current tamsulosin regimen, and outpatient cystoscopy and cytology in 1 week. - Will start enoxaparin today at 1mg/kg bid. Will monitor for bleeding and follow platelet count Pancytopenia - Likely secondary to chemotherapy - s/p transfusion of 1 unit pRBC, with some improvement in WBC - Heme/onc consulted regarding Neupogen use--> decided to hold off on neupogen for now - Trend CBC Hx of PEs - Resume lovenox today - Given no current urology interventions, and improvement in hematuria, low dose heparin without bolus started - Heme/onc consulted, home management to be discussed/determined. Metastatic non-small cell lung cancer - Management as per heme/onc - follow up as outpatient. Dr. Yanez following patient COPD - No evidence of exacerbation, continue home inhalers as prescribed. CAD - No evidence of ACS - no related treatment at present. VTE PPx - SCDs - resume lovenox Full code Continued [facility] stay due to: other Reviewed: Pt Seen/Exam by Me History no new concerns Constitutional: denies: fever Gastrointestinal/Abdominal: negative: abdominal pain Genitourinary: negative hematuria General Appearance: no apparent distress Respiratory: no respiratory distress 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: alert, oriented x 3 Skin Characteristics: warm/dry Assessment/Plan Resident Physician Supervision Note: I was present with Dr. Denney in bedside. I verified the thurman history and physical, reviewed labs and image studies, discussed the case with the resident and agree with the findings and care plan.
[2017-01-21] MEDS: ENOXAPARIN 80 MG/0.8 ML SYR SQ SCH ×2 (12:05→22:20)
[2017-01-21] MEDS: TAMSULOSIN HCL 0.4 MG CAP PO SCH (20:15)
[2017-01-22] VITALS (11 sets, daily range): BP systolic 92–113; BP diastolic 53–70; PULSE 68–80; TEMP 36.4–36.9; O2SAT 96–99
[2017-01-22 06:05] LABS: CREATININE 0.38 mg/dl (0.60-1.40)
[2017-01-22 06:17] LABS: HEMATOCRIT 24.4 % (42-52); MEAN CELL VOLUME 88.7 fL (80-100); MEAN CORPUSCULAR HGB CONC 31.6 g/dl (32-36); MEAN PLATELET VOLUME 8.5 fL (7.4-10.4); PLATELET COUNT 62 K/uL (130-400); RED BLOOD COUNT 2.75 M/uL (4.7-6.1); WHITE BLOOD COUNT 0.98 K/uL (4.8-10.8)
[2017-01-22 06:20] LABS: COMPLETE YES; LYMPH % 63.3 %; LYMPH ABS # 0.62 K/uL (1.2-3.4); MONO % 26.5 %; NEUT % 10.2 %
[2017-01-22] MEDS: HEPARIN IV LOW DOSE NO BOLUS SCH ×2 (07:44→07:45)
[2017-01-22] MEDS: FINASTERIDE 5 MG TAB PO SCH (08:00)
[2017-01-22] MEDS: BUDESONIDE/FORMOTEROL FUMARATE 160/4.5 60 PUFFS/INHALER INH SCH (08:01)
[2017-01-22] MEDS: CHECK FENTANYL PATCH PLACEMENT SCH ×2 (08:01→15:48)
--- NOTE | 2017-01-22 09:20 | Hematology/Oncology Prog Note ---
Hematology/Onc Progress Note Date of Service Jan 22, 2017. Diagnoses metastatic adenocarcinoma probable lung primary Pancytopenia presumably secondary to chemotherapy Medications Medications Administered Medications (Trade) Dose Ordered Sig/Abbi Route Start Time Stop Time Status Last Admin Dose Admin Sodium Chloride 250 ml @ 999 mls/hr Q16M STAT IV 01/18/17 17:26 01/18/17 17:41 DC 01/18/17 17:26 999 MLS/HR Sodium Chloride 1,000 ml @ 100 mls/hr Q10H STAT IV 01/18/17 17:26 01/19/17 03:25 DC 01/18/17 17:26 100 MLS/HR Albuterol/ Ipratropium (Duoneb) 3 ml Q6R INH 01/19/17 03:00 01/19/17 03:49 DC 01/19/17 02:03 3 ML Albuterol/ Ipratropium (Duoneb) 3 ml Q6R PRN INH 01/19/17 04:00 02/18/17 03:59 01/19/17 19:32 3 ML Heparin Sodium (Porcine) (Heparin 100 Unit/ml 5ml Flush) 5 ml PRN PRN IV 01/19/17 04:15 02/18/17 04:14 01/22/17 05:20 5 ML Budesonide/ Formoterol Fumarate (Symbicort 160/ 4.5 Inh) 2 puffs BID INH 01/19/17 21:00 02/18/17 20:59 01/22/17 08:01 2 PUFFS Tamsulosin HCl (Flomax Cap) 0.4 mg HS PO 01/19/17 21:00 02/18/17 20:59 01/21/17 20:15 0.4 MG Miscellaneous Information (Check Fentanyl Patch Placement) 1 ea QS N/A 01/19/17 16:00 02/18/17 15:59 01/22/17 08:01 1 EA Miscellaneous (Fentanyl Patch Remove & Waste) 1 ea Q3D@0859 N/A 01/21/17 08:59 02/20/17 08:58 01/21/17 08:49 1 EA Fentanyl (Duragesic Patch) 100 mcg Q3D@0900 TD 01/21/17 09:00 02/04/17 08:59 01/21/17 08:48 100 MCG Finasteride (Proscar Tab) 5 mg QAM PO 01/20/17 09:00 02/19/17 08:59 01/22/17 08:00 5 MG Enoxaparin Sodium (Lovenox Inj) 80 mg Q12H SQ 01/21/17 11:00 02/20/17 10:59 01/21/17 22:20 80 MG Subjective Seems to be doing well. Remains afebrile. Again no further hematuria. Lovenox has begun. Platelet count is 62,000. Hemoglobin 7.7. White cell number is also recovering although slowly. Review of Systems: Constitutional: Negative for night sweats, or fever Eyes: Negative for event change of vision ENT: Negative for epistaxis, nasal discharge, sore throat, or deafness Cardiovascular: Negative for chest pain, palpitations, dizziness, diaphoresis Respiratory: Negative for new shortness of breath,hemoptysis, or purulent cough Gastrointestinal: Negative for diarrhea, hematemesis, melena, nausea, vomiting , or dyspepsia Integumentary (skin): Negative for rash or jaundice discoloration Genitourinary: Negative for urinary frequency, hematuria, or dysuria Neurological: Negative for weakness, seizure activity, headache, or dizziness Lymphatic/Hematologic: Negative for petechiae, bleeding or new adenopathy Musculoskeletal: Negative for new joint or back pain Allergic/Immunologic: Negative for unusual rash or pruritis. Vital Signs Vital Signs Past 12 Hours Date Time Temp Pulse Resp B/P (MAP) Pulse Ox O2 Delivery O2 Flow Rate FiO2 01/22/17 08:00 Nasal Cannula 3.0 01/22/17 07:32 36.6 73 17 113/70 (84) 97 Nasal Cannula 3.0 01/22/17 04:05 36.6 68 18 98/56 (70) 99 Nasal Cannula 3.0 01/22/17 00:01 Nasal Cannula 3.0 01/21/17 23:27 36.7 76 20 106/66 (79) 98 Nasal Cannula 3.0 Physical Exam Constitutional: vitals are stable.O2 ongoing Eyes: Eyes are EVE EOMI without conjuctival erythema or icterus. ENT: External examination was negative for masses. Neck: Negative for masses or palpable thyromegaly Respiratory: Lung sounds were generally clear bilaterally Cardiovascular: Heart was RRR without significant murmur, gallops aoe rubs Gastrointestinal: No palpable hepatic or splenomegaly. The abdomen was soft with normal bowel sounds. Lymphatic system: there was no palpable peripheral lymphadenopathy Musculoskeletal System: The musculoskeletal system seemed concordant with age. Skin: The skin was negative for jaundice. Neurologic exam: The exam was negative for any focal findings. Deep tendon reflexes were equal and symmetrical. Psychiatric exam: Was essentially negative with normal mood and effect. Extremities: Negative for edema erythema Assessment & Plan Seems to be doing well on Lovenox with no further hematuria and platelet count of 62,000. Hemoglobin is 7.7 and perhaps another unit of red blood cells prior to discharge would be warranted. He has a follow-up in our clinic on January 27. Again thank you for your help.
[2017-01-22] MEDS: ENOXAPARIN 80 MG/0.8 ML SYR SQ SCH (10:32)
[2017-01-22] MEDS ORDERED: FENTANYL PATCH REMOVE & WASTE SCH (11:59)
[2017-01-22] MEDS ORDERED: PRS5 PO (13:40)
--- NOTE | 2017-01-22 13:45 | Discharge Instructions ---
Discharge Instructions Date of Service Jan 22, 2017. Admission Reason for Admission: Hematuria Discharge Discharge Diagnosis / Problem: Hematuria / Pancytopenia Discharge Goals Goal(s): Learn about illness, Prevent Disease Progression Activity Recommendations Activity Limitations: per Instructions/Follow-up section . Instructions / Follow-Up Instructions / Follow-Up You presented to the hospital due to the fact that there was blood in your urine. Your blood counts were low and this is the likely reason you were bleeding. Urology came to see you and they started a medication called finasteride. You can pick this up from your pharmacy. They suggested that you follow up with them in their office in 1 week in order to get a cystoscopy to have a look into your bladder. We continued to monitor your blood levels which slowly jewel through your hospital stay. They were deemed to be at a safe enough level to restart your lovenox. We did this and you did not continue to have significant bleeding. You will need to follow up with Dr. Yanez next week for further management of your cancer. If you experience any worsening bleeding, fevers/chills or severe fatigue then please come back to the emergency department Current Hospital Diet Patient's current hospital diet: AHA Diet (Heart Healthy) Discharge Diet Recommended Diet: AHA Diet (Heart Healthy) Pending Studies Studies pending at discharge: no Medical Emergencies . Who to Call and When: Medical Emergencies: If at any time you feel your situation is an emergency, please call 911 immediately. . Non-Emergent Contact Non-Emergency issues call your: Primary Care Provider, Oncologist . . "Provider Documentation" section prepared by Domo Denney. . VTE Core Measure Inpt VTE Proph given/why not?: SCD's
--- NOTE | 2017-01-22 13:54 | Discharge Summary ---
Discharge Summary Date of Service Jan 22, 2017. (Domo Denney MD) Discharge Summary Admission Date: Jan 18, 2017 at 19:40 Discharge Date: Jan 22, 2017 Discharge Disposition: Home Principal Diagnosis: Hematuria Problems/Secondary Diagnoses: (1) Hypoxia Status: Chronic Immunizations: Have You Had Influenza Vaccine: No History of Tetanus Vaccine?: No History of Pneumococcal: No History of Hepatitis B Vaccine: No Consultations: Haem/Onc (Domo Denney MD) Medication Reconciliation New Medications: Finasteride (Finasteride) 5 Mg Tab 5 MG PO QAM for 14 Days, #14 TAB Continued Medications: Acetaminophen (Tylenol) 325 Mg Tab 650 MG PO PRN, TAB Albuterol Sulfate (Proventil Hfa) 108 Mcg/Act Aer 2 PUFFS INH QID PRN for Wheezing Budesonide/Formoterol Fumarate (Symbicort 160/4.5 Inhaler ) Aero 2 PUFFS INH BID, INHALER Enoxaparin (Lovenox) 80 Mg/0.8 Ml Inj 80 MG SQ Q12H, SYR Fentanyl (Duragesic) 100 Mcg/Hr Dis 100-112 MCG TOP Q72HRS Morphine Sulfate (Morphine Sulfate) 15 Mg Tab 15 MG PO Q4H PRN for Pain, TAB Ondansetron Hcl (Zofran) 8 Mg Tab 8 MG PO PRN PRN for Nausea, TAB Tamsulosin HCl (Tamsulosin HCl) 0.4 Mg Cap 0.4 MG PO HS for 30 Days, #30 CAP Discharge Exam Patient feeling well and without any complaints overnight Had very minimal bleeding during urination, no blood in stool, no coughing up of blood, no vomiting of blood, no fevers, chills or sweats Review of Systems: Constitutional: No fever, No chills, No sweats Respiratory: No cough, No hemoptysis Cardiovascular: No chest pain, No palpitations Abdomen: No pain, No nausea, No vomiting, No diarrhea, No constipation, No GI bleeding Genitourinary - Male: No hematuria, No dysuria Hematologic / Lymphatic: No abnormal bleeding/bruising, No clotting problems Integumentary: No rash, No new/changing skin lesions Physical Exam: General Appearance: WD/WN, no apparent distress, + pertinent finding (nasal cannula in place) Eyes: normal inspection Respiratory/Chest: lungs clear, no respiratory distress, no accessory muscle use Cardiovascular: regular rate, rhythm, no murmur, normal peripheral pulses Abdomen / GI: normal bowel sounds, non tender, soft Extremities: no calf tenderness, no pedal edema, non-tender, + pertinent finding (chronic venous changes in both legs bilaterally) 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: alert, normal mood/affect, oriented x 3 (Domo Denney MD) Review of Systems: Constitutional: No fever Respiratory: No shortness of breath Cardiovascular: No chest pain Abdomen: No pain Genitourinary - Male: No hematuria Physical Exam: General Appearance: no apparent distress Respiratory/Chest: lungs clear, no respiratory distress Cardiovascular: regular rate, rhythm Abdomen / GI: normal bowel sounds, non tender, soft 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: alert, oriented x 3 Skin: warm/dry (Tracy Howard M.D.) Hospital Course 66 year old male with PMHx metastatic non small cell lung cancer (mets to liver , bone) currently receiving chemo with Pemetrexed and Carboplatinum, with pancytopenia, bilateral PEs with Lovenox treatment ongoing since October, SVT, AAA , COPD, CAD. Presents with a primary complaint of hematuria. Initial labs reveaed pancytopenia Hematuria - Likely related to low platelet count---> [place] [address] - s/p transfusion of 2 units platelets, with some improvement in platelets - No further bleeding - Urology consulted, believe hematuria related to prostate. Recommend starting finasteride to current tamsulosin regimen, and outpatient cystoscopy and cytology in 1 week. - Restarted enoxaparin yesterday and patient with minimal haematuria Pancytopenia - Likely secondary to chemotherapy - s/p transfusion of 1 unit pRBC, with some improvement in WBC - Patient received another unit of PRBC prior to discharge; therefore 2 units total in hospital - Heme/onc consulted regarding Neupogen use--> decided to hold off on neupogen for now - Will follow heme/onc as outpatient Hx of PEs - Resume lovenox yesterday Metastatic non-small cell lung cancer - Management as per heme/onc - follow up as outpatient. Dr. Yanez following patient COPD - No evidence of exacerbation, continue home inhalers as prescribed. CAD - No evidence of ACS - no related treatment at present. VTE PPx - resume lovenox Total Time Spent: Less than 30 minutes This includes examination of the patient, discharge planning, medication reconciliation, and communication with other providers. (Domo Denney MD) Resident Physician Supervision Note: I was present with Dr. Denney in bedside. I verified the thurman history and physical, reviewed labs and image studies, discussed the case with the resident and agree with the findings and care plan. Total Time Spent: Greater than 30 minutes (35) (Tracy Howard M.D.) Discharge Instructions Please refer to the electronic Patient Visit Report (Discharge Instructions) for additional information. (Domo Denney MD) Additional Copies To Ann Olivas M.D.
== END 2017-01-22 17:32 | disposition home or self-care (01) | DRG 695 ==
LOC: C.EDB 17:02 → C.2E 19:40 → OBSVTOIN 19:40 → ENRESERV 20:05 → C.4E 01-20 16:42
PROVIDERS: ADMIT Internal Medicine; ATTEND Family Medicine
DX: R31.0 Gross hematuria (principal); D61.810 Antineoplastic chemotherapy induced pancytopenia; C79.51 Secondary malignant neoplasm of bone; C78.7 Secondary malignant neoplasm of liver and intrahepatic bile duct; C78.00 Secondary malignant neoplasm of unspecified lung; C80.1 Malignant (primary) neoplasm, unspecified; J44.9 Chronic obstructive pulmonary disease, unspecified; I25.10 Atherosclerotic heart disease of native coronary artery without angina pectoris; Z79.01 Long term (current) use of anticoagulants; Z79.899 Other long term (current) drug therapy; Z92.3 Personal history of irradiation; Z86.711 Personal history of pulmonary embolism; Z87.891 Personal history of nicotine dependence; Z99.81 Dependence on supplemental oxygen

== ENCOUNTER → 2017-03-18 | Outpatient (CLI) | payer OTHER ==
[~2017-03-18] MED LIST changes: -ENOX80IN SQ; -KFL500 PO; +OPTIRAY 320 IV PRN; +PRS5 PO
--- NOTE | 2017-03-18 10:22 | DIAGNOSTIC IMAGING REPORT ---
CT OF THE CHEST WITH IV CONTRAST CLINICAL HISTORY: LUNG ADENOCARCINOMA COMPARISON STUDY: 11/29/2016 TECHNIQUE: Following the IV administration of 94 mL of Optiray-320, CT of the thorax was performed from the thoracic inlet to the lung bases. Images are reviewed in the axial, sagittal, and coronal planes. IV contrast was administered without complication. A dose lowering technique was utilized adhering to the principles of ALARA. CT DOSE: 1572.44 mGy.cm FINDINGS: Thyroid: Imaged portions of the thyroid gland are normal in appearance. Thoracic aorta: The thoracic aorta is normal in course and caliber, noting standard 3-vessel arch anatomy. No aneurysm or dissection is seen. Pulmonary vasculature: The pulmonary trunk is normal in caliber. There are no central filling defects identified to suggest pulmonary embolus. Note that this examination was not protocoled for the evaluation of pulmonary emboli. HEART: There are mild to moderate coronary artery calcifications present. Lungs and pleural spaces: There is pulmonary emphysema. There are multiple bilateral pulmonary nodules. These nodules have decreased in size when compared the preceding examination. For example a 9 mm nodule within the superior segment of the right lower lobe, previously measured 14 mm. Mediastinum: There is no mediastinal lymphadenopathy. Annette: There is been interval decrease in the size the right hilar mass which currently measures 26 mm. Axilla: There is no evidence of pathologic axillary lymphadenopathy Upper abdomen: Bilateral renal hypodensities likely represent cysts. Skeletal structures: There are extensive mixed lytic and blastic skeletal lesions, consistent with metastatic disease. These appear progressive. There is a severe T5 compression fracture. IMPRESSION: 1. Interval decrease in the size the right hilar mass which currently measures 26 mm 2. Interval decrease in the size of the multiple bilateral pulmonary nodules consistent with metastatic disease 3. Emphysema 4. Progressive skeletal metastasis Electronically signed by: Sam Bradley M.D. 03/18/2017 10:20 AM Dictated Date/Time: 03/18/2017 10:12 AM
--- NOTE | 2017-03-18 10:33 | DIAGNOSTIC IMAGING REPORT ---
ABDOMEN AND PELVIS CT WITH IV AND ORAL CONTRAST HISTORY: Follow-up study in a patient with lung adenocarcinoma. Subsequent treatment strategy LUNG ADENOCARCINOMA history of metastatic disease within the liver and bones. TECHNIQUE: Multiaxial CT images of the abdomen and pelvis were performed following the use of intravenous and oral contrast. 94 mL Optiray 320 IV contrast was administered. A dose lowering technique was utilized adhering to the principles of ALARA. COMPARISON STUDY: CT abdomen and pelvis 11/29/2016, CT chest of same day. FINDINGS: Exam is limited secondary to beam hardening artifact from patient arm placement. There are multiple spiculated pulmonary nodules throughout the lung bases bilaterally, largest measuring up to approximate 7 mm. These findings are compatible with metastatic disease and appear slightly decreased in size from comparison CT abdomen 11/29/2016. For example, 10 mm nodule of the right lower lobe on image 11 series 7 previously measured 1.6 cm. A millimeter nodule of the medial segment right middle lobe previously measured 1.3 cm. There is no pneumoperitoneum identified. Imaged inferior cardiac chambers are mildly enlarged. Coronary arterial calcifications are present. There is mild bilateral gynecomastia. Multiple ill-defined areas of low-attenuation throughout the hepatic parenchyma are again seen compatible with metastatic disease. Subserosal lesion within segment 4A of the liver on image 24 series 5 measures 1.4 x 0.9 cm the previously 2.6 x 2.2 cm. 11 mm ill-defined low attenuating lesion is seen within segment IVb of the liver. Spleen, pancreas, gallbladder and adrenal glands are unremarkable. Multiple low attenuating lesions of the kidneys bilaterally suggests renal cysts, largest of which measures 1.6 cm within the superior pole left kidney. Mild nonspecific bilateral perinephric stranding. Ureters are unremarkable. Pelvic structures are not well seen secondary to streak artifact from bilateral hip arthroplasty. Urinary bladder appears to be partially collapsed. There is moderate mixed plaquing of the abdominal aorta. There is mild fusiform aneurysmal dilation of the infrarenal abdominal aorta, 2.7 x 3.6 cm for a length of 3.0 cm. No bulky adenopathy identified. There is no bowel obstruction or focal bowel wall thickening identified. Colonic diverticulosis without CT evidence of acute diverticulitis. The appendix appears normal. Soft tissue nodularity of the subcutaneous anterior abdominal wall at level the pelvis is seen with areas of nodularity measuring up to 1.7 cm, appearing similar from prior study suggesting injection granulomas. Multiple lytic metastasis are again seen throughout. Additionally, there is increased sclerotic lesions diffusely. Metastatic lesions are seen throughout the spine, pelvis and also within multiple ribs. Multiple healing rib fractures are seen on the left. IMPRESSION: 1. Decreased size of metastatic pulmonary nodules throughout the lung bases as above, further described on comparison CT of same day. Metastatic hepatic lesions have also slightly decreased in size. 2. Multiple sclerotic metastatic foci seen diffusely throughout the bones may reflect healing sclerosis with positive treatment response, however progressive mixed lytic and blastic metastatic disease is an additional differential consideration. Attention at follow-up recommended. 3. No acute intra-abdominal or intrapelvic abnormality identified. 4. Fusiform aneurysmal dilation of the infrarenal abdominal aorta, 2.7 x 3.6 cm for a length of 3.0 cm. 5. Colonic diverticulosis without diverticulitis. Electronically signed by: Jesus Tomlinson M.D. 03/18/2017 10:31 AM Dictated Date/Time: 03/18/2017 10:11 AM
== END | disposition home or self-care (01) ==
LOC: C.CTS 09:49
PROVIDERS: ATTEND Nurse Practitioner Family
DX: C34.80 Malignant neoplasm of overlapping sites of unspecified bronchus and lung (principal)

== ENCOUNTER 2017-03-31 11:13 | Inpatient (IN) | payer OTHER ==
[~2017-03-31] VITALS: Ht 177.8 cm; Wt 83.2 kg
[~2017-03-31 11:13] MED LIST changes: -OPTIRAY 320 IV PRN
[2017-03-31] MEDS ORDERED: LEVAQUIN 750MG / 150ML D5W IV STA (11:29)
[2017-03-31] MEDS ORDERED: SODIUM CHLORIDE 0.9% 1000ML 1,000 ML IV STA (11:29)
[2017-03-31] MEDS ORDERED: ALBUT/IPRATROP 3MG/0.5MG NEB 3 ML VIAL INH STA (11:29)
[2017-03-31] MEDS ORDERED: METHYLPREDNISOLONE 125 MG VIAL IV STA (11:29)
--- NOTE | 2017-03-31 11:55 | DIAGNOSTIC IMAGING REPORT ---
CHEST ONE VIEW PORTABLE CLINICAL HISTORY: EVALUATE RESPIRATORY DISTRESS.DYSPNEA dyspnea COMPARISON STUDY: 12/23/2016 FINDINGS: Mild Baseline emphysematous change. Central catheter in superior vena cava. Interstitial change throughout both hemithoraces stable to slightly diminished from the prior study. Improving basilar atelectasis. Fullness stable from the prior exam. IMPRESSION: Chronic and postprocedural change. Moderate emphysematous change. No new or acute process. The above report was generated using voice recognition software. It may contain grammatical, syntax or spelling errors. Electronically signed by: Colby Martinez M.D. 03/31/2017 11:54 AM Dictated Date/Time: 03/31/2017 11:53 AM
[2017-03-31] MEDS ORDERED: OPTIRAY 320 IV PRN (12:00)
[2017-03-31] MEDS ORDERED: ENOX80IN SQ (12:04)
[2017-03-31] MEDS ORDERED: FENT75DI2 TD (12:04)
[2017-03-31 12:40] LABS: INR 1.1 (0.9-1.1); PARTIAL THROMBOPLASTIN RATIO 1.3; PROTHROMBIN TIME (PATIENT) 12.1 SECONDS (9.0-12.0)
[2017-03-31 12:49] LABS: ALT/SGPT 15 U/L (12-78); BLOOD UREA NITROGEN 20 mg/dl (7-18); BUN/CREATININE RATIO 51.5 (10-20); CARBON DIOXIDE 39 mmol/L (21-32); CHLORIDE 94 mmol/L (98-107); CREATININE 0.39 mg/dl (0.60-1.40); GLUCOSE 94 mg/dl (70-99); POTASSIUM 4.4 mmol/L (3.5-5.1); SODIUM 136 mmol/L (136-145)
[2017-03-31 12:54] LABS: ALB/GLOB RATIO 0.7 (0.9-2); ALKALINE PHOSPHATASE 105 U/L (45-117); AST/SGOT 18 U/L (15-37)
[2017-03-31 13:08] LABS: HEMATOCRIT 26.1 % (42-52); MEAN CORPUSCULAR HEMOGLOBIN 32.4 pg (25-34); MEAN CORPUSCULAR HGB CONC 31.8 g/dl (32-36); MEAN PLATELET VOLUME 9.3 fL (7.4-10.4); PLATELET COUNT 41 K/uL (130-400); RED BLOOD COUNT 2.56 M/uL (4.7-6.1); WHITE BLOOD COUNT 1.41 K/uL (4.8-10.8)
[2017-03-31 13:10] LABS: ANISOCYTOSIS PRESENT; DOHLE BODIES 1+; GIANT PLATELETS 1+; HYPERSEGMENTED POLYS 1+; HYPOCHROMIA PRESENT; PLT ESTIMATE DECREASED; STOMATOCYTE 1+; TOXIC GRANULATION 1+
[2017-03-31 13:11] LABS: BASO ABS # 0.02 K/uL (0-0.2); BASOPHIL % 1.7 % (0-2); COMPLETE YES; EOSINOPHIL % 0.9 %; LYMPH ABS # 0.29 K/uL (1.2-3.4); LYMPHOCYTE % 20.9 %; MYELOCYTE % 0.9 %; NEUTROPHILS % 66.9 %
--- NOTE | 2017-03-31 14:12 | DIAGNOSTIC IMAGING REPORT ---
(CHEST FOR PE) ANGIO WITH CT DOSE: 628.74 mGy.cm HISTORY: 66 years-old Male presents with acute respiratory distress. History of lung adenocarcinoma with pulmonary and skeletal metastasis. TECHNIQUE: Multiple CTA images of the chest were obtained after the intravenous administration of 96 ml Optiray 320. Coronal and sagittal MIPS were obtained from the axial data set and were submitted for review. A dose lowering technique was utilized adhering to the principles of ALARA. COMPARISON: Chest CT 03/18/2017, CT abdomen and pelvis 03/18/2017. FINDINGS: CTA: Mild cardiomegaly without pericardial effusion. Coronary arterial calcifications are noted. There is moderate atherosclerotic plaquing of the thoracic aorta. Imaged proximal great vessels are patent. There is no aortic dissection or aneurysm identified. There is unchanged mild dilation of the aortic isthmus, 3.2 centers transversely. There is dilation of the main pulmonary artery, 3.6 cm. No focal filling defects identified within the pulmonary arterial tree to suggest pulmonary thromboembolic disease. The distal segmental and subsegmental branches however are not well-seen secondary to respiratory motion. No central pulmonary embolus. CT CHEST: No dominant thyroid nodule identified. Multiple nonenlarged AP window and paratracheal lymph nodes are seen which are nonspecific. 2.5 x 1.6 cm right hilar lesion is unchanged from prior study as seen on image 166 series 4. No pneumothorax or pleural effusion. Mild to moderate upper lobe predominant paraseptal and centrilobular emphysematous changes redemonstrated. No pneumothorax or pleural effusion. Linear subsegmental bibasilar opacities suggest areas of atelectasis and/or scarring. Bilateral bronchial wall thickening is also noted suggesting bronchitis. Multiple bilateral multilobar pulmonary metastasis redemonstrated index metastatic lesion measuring 7 mm is seen on image 121 series 4, previously 7 mm. 10 mm metastatic lesion of the left lower lobe on image 108 series 4. The measured 10 mm. No acute abnormality of the imaged upper abdomen. Nonspecific stranding is again seen adjacent to the bilateral adrenal glands. Extensive mixed lytic and sclerotic metastatic lesions of the spine, bilateral ribs and shoulders redemonstrated. Severe compression deformity of T5 redemonstrated. IMPRESSION: 1. No evidence of pulmonary thromboembolic disease. 2. Stable appearance of the right hilar mass with multiple bilateral multilobar pulmonary metastasis which also appears stable. 3. Extensive mixed lytic and sclerotic skeletal metastasis redemonstrated. 4. Emphysema with suggested pulmonary arterial hypertension. The above report was generated using voice recognition software. It may contain grammatical, syntax or spelling errors. Electronically signed by: Jesus Tomlinson M.D. 03/31/2017 2:11 PM Dictated Date/Time: 03/31/2017 2:00 PM
[2017-03-31] MEDS ORDERED: PIPERACILLIN/TAZOBACTAM 4.5 GM/100ML D5W IV STA (14:13)
[2017-03-31 14:40] VITALS: BP 100/49; PULSE 88; TEMP 37; O2SAT 94; Ht 177.8 cm; Wt 83.2 kg
[2017-03-31] MEDS ORDERED: MAGNESIUM HYDROXIDE SUSP 30 ML UDC PO PRN (15:15)
[2017-03-31] MEDS ORDERED: ALUMINUM/MAGNESIUM/SIMETH (MAALOX MAX) 30 ML UDC PO PRN (15:15)
[2017-03-31] MEDS ORDERED: MoRPHine SULFATE IR 15 MG TAB (IMMEDIATE RELEASE) PO PRN (15:15)
[2017-03-31] MEDS ORDERED: POLYETHYLENE (MIRALAX) 17 GM PACK PO PRN (15:15)
[2017-03-31] MEDS ORDERED: ALBUT/IPRATROP 3MG/0.5MG NEB 3 ML VIAL INH PRN (15:15)
[2017-03-31] MEDS ORDERED: ONDANSETRON INJ 2 MG/ML 2 ML VIAL IV PRN (15:15)
[2017-03-31] MEDS ORDERED: ACETAMINOPHEN 325 MG TAB PO PRN (15:15)
[2017-03-31] MEDS ORDERED: CEFEPIME IV 2,000 MG in DEXTROSE 5% 100ML 100 ML IV SCH (15:15)
--- NOTE | 2017-03-31 15:23 | History and Physical ---
History & Physical Date & Time of Service: Mar 31, 2017 at 15:15 Chief Complaint: Lungs Sound Bad, [place] Primary Care Physician: Ann Olivas M.D. History of Present Illness Source: patient Mr. 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 Patient reports a gradual onset of a productive cough of clear to white sputum with occasional green sputum. He does not report a chronic cough with his COPD. He also associates a sore throat and rhinorrhea, however his sore throat has resolved. He reports chest tightness and congestion. He also complains of progressive shortness of breath and generalized fatigue. He has noticed vague chills but no fever. He has tried [id number] medications such as Mucinex and cold medicine without relief. He wears 3 L of oxygen at baseline. at bedside reports that she recently had a URI that is resolving. He is undergoing chemotherapy with last treatment on 03/25. He is currently on Lovenox due to a PE in October. He has had intermittent issues with hematuria and was stopped on Lovenox during his previous admission. He states he resumed the Lovenox but stopped this 2 days ago due to further hematuria. He does associate mild burning on urination however states this has been present since starting chemotherapy. He also has issues with urinary retention. He denies fever, chest pain, nausea/vomiting, abdominal pain, diarrhea, or melena/hematochezia. Past Medical/Surgical History Medical Problems: (1) Adenocarcinoma of unknown primary Permanent Comment: Metastatic disease to bone, liver, lungs Status post completion of radiation therapy to T5, right second and third ribs. Completed 11/14/2016. He received 3000 cGy. Status: Chronic (2) COPD (chronic obstructive pulmonary disease) Status: Chronic (3) Coronary artery disease Status: Chronic (4) Hypoxia Status: Chronic (5) Pulmonary embolism, bilateral Status: Chronic (6) Sepsis Status: Resolved Family History Cancer Social History Smoking Status: Former Smoker Smokeless Tobacco Use: No Alcohol Use: none Drug Use: none Marital Status: in relationship Housing status: lives with significant other Occupational Status: retired Immunizations History of Influenza Vaccine: No History of Tetanus Vaccine?: No History of Pneumococcal: No History of Hepatitis B Vaccine: No Multi-Drug Resistant Organisms History of MDRO: No Allergies Coded Allergies: No Known Allergies (Verified , 03/31/17) Home Medications Scheduled Budesonide/Formoterol Fumarate (Symbicort 160/4.5 Inhaler ), 2 PUFFS INH BID Enoxaparin (Lovenox), 80 MG SQ Q12H Fentanyl (Fentanyl), 75 MCG TD [id number] Finasteride (Finasteride), 5 MG PO QAM Tamsulosin HCl (Tamsulosin HCl), 0.4 MG PO HS Scheduled PRN Albuterol Sulfate (Proventil Hfa), 2 PUFFS INH QID PRN for Wheezing Morphine Sulfate (Morphine Sulfate), 15 MG PO Q4H PRN for Pain Review of Systems Constitutional: + chills, + weakness, + fatigue, No fever, No sweats ENT: + nasal symptoms (rhinorrhea), + sore throat (RESOLVED - 2 days ago) Respiratory: + cough, + sputum (clear to white, occasionally green), + shortness of breath, No hemoptysis Cardiovascular: No chest pain Abdomen: No pain, No nausea, No vomiting, No diarrhea, No constipation Musculoskeletal: No swelling, No calf pain Genitourinary - Male: + hematuria, + dysuria, + urinary retention Hematologic / Lymphatic: No abnormal bleeding/bruising Integumentary: + rash (right mid back 2/2 scratching), + itch (right mid back) Physical Exam Vital Signs Date Time Temp Pulse Resp B/P (MAP) Pulse Ox O2 Delivery O2 Flow Rate FiO2 03/31/17 14:54 89 16 100/49 92 Nasal Cannula 5.0 03/31/17 14:40 37.0 88 15 100/49 94 Nasal Cannula 3.0 03/31/17 13:23 89 Nasal Cannula 4.0 03/31/17 13:15 87 15 102/40 88 Nasal Cannula 3.0 03/31/17 12:18 90 23 105/56 98 Room Air 3.0 03/31/17 12:11 92 03/31/17 11:35 85 Nasal Cannula 3.0 03/31/17 11:35 85 Nasal Cannula 3.0 03/31/17 11:30 Nasal Cannula 3.0 85 03/31/17 11:18 37.0 92 24 96/57 83 Nasal Cannula 3.0 General Appearance: no apparent distress, + thin Head: normocephalic, atraumatic Eyes: sclerae normal ENT: hearing grossly normal, + pharyngeal erythema (mild without exudates) Neck: supple, no JVD, trachea midline Respiratory/Chest: no respiratory distress, no accessory muscle use, + wheezing (diffuse bilateral), + pertinent finding (poor airflow diffusely) Cardiovascular: regular rate, rhythm, no gallop, no murmur Abdomen/GI: normal bowel sounds, non tender, soft Extremities/Musculoskelatal: no calf tenderness, no pedal edema Neurologic/Psych: alert, oriented x 3 Skin: warm/dry, + pallor, + pertinent finding (pruritus of right mid back with mild erythema due to scratching with no evidence of breaks in skin) Diagnostics Laboratory Results Results Past 24 Hours Test 03/31/17 12:10 Range/Units White Blood Count 1.41 4.8-10.8 K/uL Red Blood Count 2.56 4.7-6.1 M/uL Hemoglobin 8.3 14.0-18.0 g/dL Hematocrit 26.1 42-52 % Mean Corpuscular Volume 102.0 80-100 fL Mean Corpuscular Hemoglobin 32.4 25-34 pg Mean Corpuscular Hemoglobin Concent 31.8 32-36 g/dl Platelet Count 41 130-400 K/uL Mean Platelet Volume 9.3 7.4-10.4 fL RDW Standard Deviation 72.1 36.4-46.3 fL RDW Coefficient of Variation 19.5 11.5-14.5 % Neutrophils % (Manual) 66.9 % Lymphocytes % (Manual) 20.9 % Monocytes % (Manual) 8.7 % Eosinophils % (Manual) 0.9 % Basophils % (Manual) 1.7 0-2 % Myelocytes % 0.9 % Neutrophils # (Manual) 0.94 1.4-6.5 K/uL Total Absolute Neutrophils 0.94 1.4-6.5 K/uL Lymphocytes # (Manual) 0.29 1.2-3.4 K/uL Total Absolute Lymphocytes 0.29 1.2-3.4 K/uL Monocytes # (Manual) 0.12 0.11-0.59 K/uL Eosinophils # (Manual) 0.01 0-0.5 K/uL Basophils # (Manual) 0.02 0-0.2 K/uL Myelocytes # 0.01 0-0 K/uL Hypersegmented Polys 1+ Toxic Granulation 1+ Dohle Bodies 1+ Platelet Estimate DECREASED Giant Platelets 1+ Hypochromasia PRESENT Anisocytosis PRESENT Macrocytosis PRESENT Stomatocytes 1+ Prothrombin Time 12.1 9.0-12.0 SECONDS Prothromb Time International Ratio 1.1 0.9-1.1 Activated Partial Thromboplast Time 35.0 21.0-31.0 SECONDS Partial Thromboplastin Ratio 1.3 Sodium Level 136 136-145 mmol/L Potassium Level 4.4 3.5-5.1 mmol/L Chloride Level 94 98-107 mmol/L Carbon Dioxide Level 39 21-32 mmol/L Anion Gap 4.0 3-11 mmol/L Blood Urea Nitrogen 20 7-18 mg/dl Creatinine 0.39 0.60-1.40 mg/dl Est Creatinine Clear Calc Drug Dose 192.4 ml/min Estimated GFR () 145.0 Estimated GFR (Non- 125.1 BUN/Creatinine Ratio 51.5 10-20 Random Glucose 94 70-99 mg/dl Calcium Level 9.0 8.5-10.1 mg/dl Total Bilirubin 0.4 0.2-1 mg/dl Aspartate Amino Transf (AST/SGOT) 18 15-37 U/L Alanine Aminotransferase (ALT/SGPT) 15 12-78 U/L Alkaline Phosphatase 105 45-117 U/L Troponin I < 0.015 0-0.045 ng/ml Pro-B-Type Natriuretic Peptide 299 0-900 pg/ml Total Protein 6.6 6.4-8.2 gm/dl Albumin 2.8 3.4-5.0 gm/dl Globulin 3.8 2.5-4.0 gm/dl Albumin/Globulin Ratio 0.7 0.9-2 Diagnostic Radiology (CHEST FOR PE) ANGIO WITH FINDINGS: CTA: Mild cardiomegaly without pericardial effusion. Coronary arterial calcifications are noted. There is moderate atherosclerotic plaquing of the thoracic aorta. Imaged proximal great vessels are patent. There is no aortic dissection or aneurysm identified. There is unchanged mild dilation of the aortic isthmus, 3.2 centers transversely. There is dilation of the main pulmonary artery, 3.6 cm. No focal filling defects identified within the pulmonary arterial tree to suggest pulmonary thromboembolic disease. The distal segmental and subsegmental branches however are not well-seen secondary to respiratory motion. No central pulmonary embolus. CT CHEST: No dominant thyroid nodule identified. Multiple nonenlarged AP window and paratracheal lymph nodes are seen which are nonspecific. 2.5 x 1.6 cm right hilar lesion is unchanged from prior study as seen on image 166 series 4. No pneumothorax or pleural effusion. Mild to moderate upper lobe predominant paraseptal and centrilobular emphysematous changes redemonstrated. No pneumothorax or pleural effusion. Linear subsegmental bibasilar opacities suggest areas of atelectasis and/or scarring. Bilateral bronchial wall thickening is also noted suggesting bronchitis. Multiple bilateral multilobar pulmonary metastasis redemonstrated index metastatic lesion measuring 7 mm is seen on image 121 series 4, previously 7 mm. 10 mm metastatic lesion of the left lower lobe on image 108 series 4. The measured 10 mm. No acute abnormality of the imaged upper abdomen. Nonspecific stranding is again seen adjacent to the bilateral adrenal glands. Extensive mixed lytic and sclerotic metastatic lesions of the spine, bilateral ribs and shoulders redemonstrated. Severe compression deformity of T5 redemonstrated. IMPRESSION: 1. No evidence of pulmonary thromboembolic disease. 2. Stable appearance of the right hilar mass with multiple bilateral multilobar pulmonary metastasis which also appears stable. 3. Extensive mixed lytic and sclerotic skeletal metastasis redemonstrated. 4. Emphysema with suggested pulmonary arterial hypertension. EKG Sinus rhythm with Premature supraventricular complexes Right ventricular hypertrophy with repolarization abnormality ST & T wave abnormality, consider lateral ischemia Prolonged QT Abnormal ECG When compared with ECG of 04-MAR-2017 18:16, ST now depressed in Anterior leads Impression Assessment and Plan Mr. 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 Acute on Chronic Hypoxic Respiratory Failure 2/2 COPD Exacerbation: Baseline O2 of 3 L - Admit to telemetry and obtain serial cardiac enzymes - Cefepime 2 g IV Q12H and Levaquin 750 mg IV daily - Methylprednisolone 60 mg IV Q8H - Mucinex 1200 mg BID - Duo nebs ANNE-MARIE and PRN with Symbicort 2 puffs BID - NSS at 80 mL/hr Hematuria: Likely from Thrombocytopenia and Lovenox: - Patient has stopped Lovenox x 2 days due to hematuria - will resume if hematuria resolved Neutropenia and Pancytopenia 2/2 Chemotherapy: - Neutropenic precautions - Hemoglobin at 8.3 with baseline around 7.5-9.2 - will repeat on next troponin Metastatic Adenocarcinoma of Lung (Liver and Bone Mets): Follows with Dr. Kory Ray/Beau - Pain management with Fentanyl patch 75 mcg Q72H and morphine 15 mg Q4H PRN - Poor appetite due to chemotherapy - consult nutrition for dietary recommendations -- Will place regular diet to allow more tasteful options CAD S/P LA and S/P Stents: STABLE - Denies anginal symptoms - echo from 2009 with normal EF H/O Pulmonary Embolism: - Currently on Lovenox however has not taken 2 days due to hematuria - Discussed risks of holding Lovenox treatment to include risk of pulmonary embolism that could ultimately lead to - patient plans to resume Lovenox when hematuria resolves - patient does have thrombocytopenia with platelets of 41 that will have an element of protection HLD: No current medications Urinary Retention/BPH: - Finasteride 5 mg daily and Flomax 0.4 mg daily - Bladder scan and straight cath when necessary - patient reports if difficulty with [place] placement in the past DVT Prophylaxis: SCDs - Hold chemical prophylaxis at this time due to thrombocytopenia and reported hematuria Code Status: FULL RESUSCITATION Disposition: - From home - If stable on monitor overnight - likely transfer to Med/Surg tomorrow Level of Care Telemetry Advanced Directives Existing Living Will: No Existing Power of Tower Cleaner: No Resuscitation Status FULL RESUSCITATION VTE Prophylaxis VTE Risk Assessment Done? Y/N: Yes Risk Level: Moderate Given or contraindicated: SCD's Social Service Consult Cancer Patient Under [place]
[2017-03-31 16:26] LABS: URINE APPEARANCE CLEAR (CLEAR); URINE BILIRUBIN NEG (NEG); URINE COLOR YELLOW; URINE EPITHELIAL CELL AUTO 20-30 /lpf (0-5); URINE NITRITE NEG (NEG); URINE PH 6.5 (4.5-7.5); URINE SPECIFIC GRAVITY 1.041 (1.000-1.030); UROBILINOGEN NEG (NEG)
[2017-03-31 16:31] LABS: REVIEW REQ? NO
[2017-03-31 16:32] LABS: MANUAL MICROSCOPIC REQUIRED? NO
[2017-03-31] MEDS: SODIUM CHLORIDE 0.9% 1000ML 1,000 ML IV SCH (16:37)
[2017-03-31 16:40] VITALS: BP 106/52; PULSE 88; TEMP 36.9; O2SAT 94
[2017-03-31] MEDS: FENTANYL PATCH REMOVE & WASTE SCH (17:32)
[2017-03-31] MEDS: FENTANYL 75 MCG/HR TDSY TD SCH (17:32)
[2017-03-31] MEDS: METHYLPREDNISOLONE IV 60 MG in SYRINGE 0 ML IV SCH (17:34)
[2017-03-31 18:28] LABS: HEMATOCRIT 25.6 % (42-52)
--- NOTE | 2017-03-31 19:05 | EMERGENCY ROOM VISIT NOTE ---
History Report prepared by Deo: Ahsan Short Under the Supervision of: Dr. Santiago Gregory D.O. First contact with patient: 11:21 Chief Complaint: RESPIRATORY PROBLEMS Stated Complaint: LUNGS SOUND BAD, PNUMIA History of Present Illness The patient is a 66 year old male who presents to the Emergency Room with complaints of respiratory problems that began four days ago. He has a history of COPD, PE's, and metastatic lung cancer with metastasis to his bones and liver. He denies any history of asthma. He is on 3L of oxygen at all times. His most recent chemotherapy treatment was 6 days ago. A couple of days ago, the patient began to have a cough, rhinorrhea, chest tightness, and chest congestion. He is having an increased difficulty breathing as well as fatigue. He notes that he is having some mild burning with urination as well. Pt denies headache, change in vision, fevers, chest pain, nausea, vomiting, abdominal pain , diarrhea, and melena. He was taken off of his Lovenox two days ago and notes that he did not miss any dosages prior to that. He denies any recent steroid use. Source of History: patient Onset: four days ago Position: other (Respiratory problems) Symptom Intensity: moderate Quality: other (Shortness of breath) Timing: constant Associated Symptoms: + cough, + urinary symptoms (burning with urination), + fatigue, No fevers, No chest pain, No nausea, No vomiting, No abdominal pain, No diarrhea Review of Systems See HPI for pertinent positives & negatives. A total of 10 systems reviewed and were otherwise negative. Past Medical & Surgical Medical Problems: (1) Acute on chronic respiratory failure with hypoxia (2) Adenocarcinoma of unknown primary (3) COPD (chronic obstructive pulmonary disease) (4) Coronary artery disease (5) Hematuria (6) History of metastatic neoplastic disease (7) Hypoxia (8) Pancytopenia (9) Pneumonia (10) Pulmonary embolism, bilateral (11) Sepsis Surgical Problems: (1) History of total replacement of right hip Family History Cancer Social History Smoking Status: Former Smoker Drug Use: none Marital Status: in relationship Housing Status: lives with significant other Occupation Status: retired Current/Historical Medications Scheduled Budesonide/Formoterol Fumarate (Symbicort 160/4.5 Inhaler ), 2 PUFFS INH BID Enoxaparin (Lovenox), 80 MG SQ Q12H Fentanyl (Fentanyl), 75 MCG TD [id number] Finasteride (Finasteride), 5 MG PO QAM Tamsulosin HCl (Tamsulosin HCl), 0.4 MG PO HS Scheduled PRN Albuterol Sulfate (Proventil Hfa), 2 PUFFS INH QID PRN for Wheezing Morphine Sulfate (Morphine Sulfate), 15 MG PO Q4H PRN for Pain Allergies Coded Allergies: No Known Allergies (Verified , 03/31/17) Physical Exam Vital Signs Date Time Temp Pulse Resp B/P (MAP) Pulse Ox O2 Delivery O2 Flow Rate FiO2 03/31/17 14:54 89 16 100/49 92 Nasal Cannula 5.0 03/31/17 14:40 37.0 88 15 100/49 94 Nasal Cannula 3.0 03/31/17 13:23 89 Nasal Cannula 4.0 03/31/17 13:15 87 15 102/40 88 Nasal Cannula 3.0 03/31/17 12:18 90 23 105/56 98 Room Air 3.0 03/31/17 12:11 92 03/31/17 11:35 85 Nasal Cannula 3.0 03/31/17 11:35 85 Nasal Cannula 3.0 03/31/17 11:30 Nasal Cannula 3.0 85 03/31/17 11:18 37.0 92 24 96/57 83 Nasal Cannula 3.0 Physical Exam GENERAL: Sitting up in bed, alert, ill appearing, well nourished, moderate distress, non-toxic, dyspneic with conversation. EYE EXAM: normal conjunctiva. OROPHARYNX: no exudate, no erythema, lips, buccal mucosa, and tongue normal and mucous membranes are moist NECK: supple, no nuchal rigidity, no adenopathy, non-tender LUNGS: Diffuse wheezing bilaterally. HEART: no murmurs, S1 normal and S2 normal ABDOMEN: abdomen soft, non-tender, normo-active bowel sounds, no masses, no rebound or guarding. BACK: Back is symmetrical on inspection and there is no deformity, no midline tenderness, no CVA tenderness. SKIN: no rashes and no bruising UPPER EXTREMITIES: upper extremities are grossly normal. LOWER EXTREMITIES: Calves are equal bilaterally. NEURO EXAM: Normal sensorium, cranial nerves II-XII grossly intact, normal speech, no gross weakness of arms, no gross weakness of legs. Medical Decision & Procedures ER Provider Diagnostic Interpretation: Radiology results as stated below per my review and the radiologist's interpretation: (CHEST FOR PE) ANGIO WITH CT DOSE: 628.74 mGy.cm HISTORY: 66 years-old Male presents with acute respiratory distress. History of lung adenocarcinoma with pulmonary and skeletal metastasis. TECHNIQUE: Multiple CTA images of the chest were obtained after the intravenous administration of 96 ml Optiray 320. Coronal and sagittal MIPS were obtained from the axial data set and were submitted for review. A dose lowering technique was utilized adhering to the principles of ALARA. COMPARISON: Chest CT 03/18/2017, CT abdomen and pelvis 03/18/2017. FINDINGS: CTA: Mild cardiomegaly without pericardial effusion. Coronary arterial calcifications are noted. There is moderate atherosclerotic plaquing of the thoracic aorta. Imaged proximal great vessels are patent. There is no aortic dissection or aneurysm identified. There is unchanged mild dilation of the aortic isthmus, 3.2 centers transversely. There is dilation of the main pulmonary artery, 3.6 cm. No focal filling defects identified within the pulmonary arterial tree to suggest pulmonary thromboembolic disease. The distal segmental and subsegmental branches however are not well-seen secondary to respiratory motion. No central pulmonary embolus. CT CHEST: No dominant thyroid nodule identified. Multiple nonenlarged AP window and paratracheal lymph nodes are seen which are nonspecific. 2.5 x 1.6 cm right hilar lesion is unchanged from prior study as seen on image 166 series 4. No pneumothorax or pleural effusion. Mild to moderate upper lobe predominant paraseptal and centrilobular emphysematous changes redemonstrated. No pneumothorax or pleural effusion. Linear subsegmental bibasilar opacities suggest areas of atelectasis and/or scarring. Bilateral bronchial wall thickening is also noted suggesting bronchitis. Multiple bilateral multilobar pulmonary metastasis redemonstrated index metastatic lesion measuring 7 mm is seen on image 121 series 4, previously 7 mm. 10 mm metastatic lesion of the left lower lobe on image 108 series 4. The measured 10 mm. No acute abnormality of the imaged upper abdomen. Nonspecific stranding is again seen adjacent to the bilateral adrenal glands. Extensive mixed lytic and sclerotic metastatic lesions of the spine, bilateral ribs and shoulders redemonstrated. Severe compression deformity of T5 redemonstrated. IMPRESSION: 1. No evidence of pulmonary thromboembolic disease. 2. Stable appearance of the right hilar mass with multiple bilateral multilobar pulmonary metastasis which also appears stable. 3. Extensive mixed lytic and sclerotic skeletal metastasis redemonstrated. 4. Emphysema with suggested pulmonary arterial hypertension. The above report was generated using voice recognition software. It may contain grammatical, syntax or spelling errors. Electronically signed by: Jesus Tomlinson M.D. 03/31/2017 2:11 PM Dictated Date/Time: 03/31/2017 2:00 PM CHEST ONE VIEW PORTABLE CLINICAL HISTORY: EVALUATE RESPIRATORY DISTRESS.DYSPNEA dyspnea COMPARISON STUDY: 12/23/2016 FINDINGS: Mild Baseline emphysematous change. Central catheter in superior vena cava. Interstitial change throughout both hemithoraces stable to slightly diminished from the prior study. Improving basilar atelectasis. Fullness stable from the prior exam. IMPRESSION: Chronic and postprocedural change. Moderate emphysematous change. No new or acute process. The above report was generated using voice recognition software. It may contain grammatical, syntax or spelling errors. Electronically signed by: Colby Martinez M.D. 03/31/2017 11:54 AM Dictated Date/Time: 03/31/2017 11:53 AM Laboratory Results 03/31/17 12:10 Red Blood Count 2.56, Mean Corpuscular Volume 102.0, Mean Corpuscular Hemoglobin 32.4, Mean Corpuscular Hemoglobin Concent 31.8, Mean Platelet Volume 9.3 03/31/17 12:10 Test 03/31/17 00:00 03/31/17 12:10 Urine Color YELLOW Urine Appearance CLEAR (CLEAR) Urine pH 6.5 (4.5-7.5) Urine Specific [place] 1.041 (1.000-1.030) Urine Protein TRACE (NEG) Urine Glucose (UA) NEG (NEG) Urine Ketones NEG (NEG) Urine Occult Blood TRACE (NEG) Urine Nitrite NEG (NEG) Urine Bilirubin NEG (NEG) Urine Urobilinogen NEG (NEG) Urine Leukocyte Esterase NEG (NEG) Urine WBC (Auto) 1-5 /hpf (0-5) Urine RBC (Auto) 5-10 /hpf (0-4) Urine Hyaline Casts (Auto) 1-5 /lpf (0-5) Urine Epithelial Cells (Auto) 20-30 /lpf (0-5) Urine Bacteria (Auto) NEG (NEG) White Blood Count 1.41 K/uL (4.8-10.8) Red Blood Count 2.56 M/uL (4.7-6.1) Hemoglobin 8.3 g/dL (14.0-18.0) Hematocrit 26.1 % (42-52) Mean Corpuscular Volume 102.0 fL (80-100) Mean Corpuscular Hemoglobin 32.4 pg (25-34) Mean Corpuscular Hemoglobin Concent 31.8 g/dl (32-36) Platelet Count 41 K/uL (130-400) Mean Platelet Volume 9.3 fL (7.4-10.4) RDW Standard Deviation 72.1 fL (36.4-46.3) RDW Coefficient of Variation 19.5 % (11.5-14.5) Neutrophils % (Manual) 66.9 % Lymphocytes % (Manual) 20.9 % Monocytes % (Manual) 8.7 % Eosinophils % (Manual) 0.9 % Basophils % (Manual) 1.7 % (0-2) Myelocytes % 0.9 % Neutrophils # (Manual) 0.94 K/uL (1.4-6.5) Total Absolute Neutrophils 0.94 K/uL (1.4-6.5) Lymphocytes # (Manual) 0.29 K/uL (1.2-3.4) Total Absolute Lymphocytes 0.29 K/uL (1.2-3.4) Monocytes # (Manual) 0.12 K/uL (0.11-0.59) Eosinophils # (Manual) 0.01 K/uL (0-0.5) Basophils # (Manual) 0.02 K/uL (0-0.2) Myelocytes # 0.01 K/uL (0-0) Hypersegmented Polys 1+ Toxic Granulation 1+ Dohle Bodies 1+ Platelet Estimate DECREASED Giant Platelets 1+ Hypochromasia PRESENT Anisocytosis PRESENT Macrocytosis PRESENT Stomatocytes 1+ Prothrombin Time 12.1 SECONDS (9.0-12.0) Prothromb Time International Ratio 1.1 (0.9-1.1) Activated Partial Thromboplast Time 35.0 SECONDS (21.0-31.0) Partial Thromboplastin Ratio 1.3 Anion Gap 4.0 mmol/L (3-11) Est Creatinine Clear Calc Drug Dose 192.4 ml/min Estimated GFR () 145.0 Estimated GFR (Non- 125.1 BUN/Creatinine Ratio 51.5 (10-20) Calcium Level 9.0 mg/dl (8.5-10.1) Total Bilirubin 0.4 mg/dl (0.2-1) Aspartate Amino Transf (AST/SGOT) 18 U/L (15-37) Alanine Aminotransferase (ALT/SGPT) 15 U/L (12-78) Alkaline Phosphatase 105 U/L (45-117) Pro-B-Type Natriuretic Peptide 299 pg/ml (0-900) Total Protein 6.6 gm/dl (6.4-8.2) Albumin 2.8 gm/dl (3.4-5.0) Globulin 3.8 gm/dl (2.5-4.0) Albumin/Globulin Ratio 0.7 (0.9-2) Laboratory results per my review. Medications Administered Medications (Trade) Dose Ordered Sig/Abbi Route Start Time Stop Time Status Last Admin Dose Admin Albuterol/ Ipratropium (Duoneb) 3 ml NOW STAT INH 03/31/17 11:29 03/31/17 11:32 DC 03/31/17 12:14 3 ML Levofloxacin (Levaquin / D5W) 750 mg NOW STAT IV 03/31/17 11:29 03/31/17 11:32 DC 03/31/17 12:14 750 MG Methylprednisolone Sodium Succinate (Solu-Medrol IV) 125 mg NOW STAT IV 03/31/17 11:29 03/31/17 11:32 DC 03/31/17 12:14 125 MG Sodium Chloride 1,000 ml @ 999 mls/hr Q1H1M STAT IV 03/31/17 11:29 03/31/17 12:29 DC 03/31/17 12:18 999 MLS/HR Piperacillin Sod/ Tazobactam Sod (Zosyn Iv) 4.5 gm NOW STAT IV 03/31/17 14:13 03/31/17 14:14 DC 03/31/17 16:05 4.5 GM ECG Indication: SOB/dyspnea Rate (beats per minute): 88 Rhythm: sinus rhythm Findings: ST depression (Anterior), ST elevation (Inferior) Comparison ECG Date: 04 March 2017 Change: no significant change ED Course ED COURSE: Vital signs were reviewed and showed hypoxia and hypertension. The patients medical record was reviewed The above diagnostic studies were performed and reviewed. ED treatments and interventions as stated above. 1121: The patient was evaluated in room C9. A complete history and physical examination was performed. 1129: Ordered Sodium Chloride 1000 ml @ 999 mls/hr IV, Solu-Medrol IV 125 mg IV , Levofloxacin 750 mg IV, DuoNeb 3 ml INH 1218: The patient feels a little better at this time. They are trying to get a blood draw. 1413: Ordered Zosyn Iv 4.5 gm IV 1417: Upon reevaluation, the patient is resting. I discussed my findings with the patient and he understands and agrees with the treatment plan. Based on the patients age, coexisting illnesses, exam and lab findings the decision to treat as an inpatient was made. The patient remained stable while under my care. The patient will be evaluated by Dr. Rebekah HILL, for further management. Medical Decision Differential diagnoses includes but is not limited to pneumonia, bronchitis, COPD/Asthma exacerbation, pneumothorax, pulmonary embolism, congestive heart failure, acute coronary syndrome. Patient is a 66-year-old male who presents to ER for shortness of breath which has been worsening over the past 24 hours. He was referred in by oncology. Last chemotherapy was Friday. He did stop taking Lovenox this past Friday. CBC shows a pancytopenia with a mild neutropenia. BMP all LFTs, troponin was unremarkable. UA was negative. INR was normal. CT of the chest shows no acute PEs. Chest x-ray was unremarkable. EKG looked fairly unchanged from previous although there was elevations. Symptoms to improve with nasal cannula. He was admitted to internal medicine following nebulizer treatment, steroids and antibiotics. I favor this is likely a combination of COPD and bronchitis. Medication Reconcilliation Current Medication List: was personally reviewed by me Blood Pressure Screening Patient's blood pressure: Low blood pressure Consults Time Called: 1412 Consulting Physician: Dr. Rebekah HILL Returned Call: [phone] I reviewed the patient's case with him. He will evaluate the patient for further management. Impression Primary Impression: Hypoxia Additional Impressions: Pancytopenia Neutropenia Bronchitis Scribe Attestation The scribe's documentation has been prepared under my direction and personally reviewed by me in its entirety. I confirm that the note above accurately reflects all work, treatment, procedures, and medical decision making performed by me. Departure Information Dispostion Being Evaluated By Hospitalist Referrals Ann Olivas M.D. (PCP) Patient Instructions My [facility] Problem Qualifiers Additional Impressions: Neutropenia Neutropenia type: unspecified Qualified Codes: D70.9 - Neutropenia, unspecified
[2017-03-31 19:19] VITALS: BP 119/54; PULSE 65; TEMP 36.9; O2SAT 94
[2017-03-31 20:00] VITALS: O2SAT 94
[2017-03-31 20:49] VITALS: PULSE 70; O2SAT 94
[2017-03-31] MEDS: ALBUT/IPRATROP 3MG/0.5MG NEB 3 ML VIAL NEB SCH (20:49)
[2017-03-31] MEDS: CEFEPIME IV 2,000 MG in SYRINGE 7.5 ML IV SCH (20:58)
[2017-03-31] MEDS: BUDESONIDE/FORMOTEROL FUMARATE 160/4.5 60 PUFFS/INHALER INH SCH (20:59)
[2017-03-31] MEDS: TAMSULOSIN HCL 0.4 MG CAP PO SCH (21:00)
[2017-03-31] MEDS: GUAIFENESIN 600 MG TABCR PO SCH (21:01)
[2017-03-31 23:33] VITALS: BP 102/56; PULSE 72; TEMP 36.4; O2SAT 97
[2017-04-01] VITALS (21 sets, daily range): BP systolic 93–119; BP diastolic 47–65; PULSE 58–80; TEMP 36.3–37; O2SAT 91–97
[2017-04-01] MEDS: METHYLPREDNISOLONE IV 60 MG in SYRINGE 0 ML IV SCH ×3 (01:21→16:38)
[2017-04-01] MEDS: ALBUT/IPRATROP 3MG/0.5MG NEB 3 ML VIAL NEB SCH ×4 (02:18→19:13)
[2017-04-01] MEDS: SODIUM CHLORIDE 0.9% 1000ML 1,000 ML IV SCH (05:56)
[2017-04-01] MEDS: FINASTERIDE 5 MG TAB PO SCH (07:43)
[2017-04-01] MEDS: BUDESONIDE/FORMOTEROL FUMARATE 160/4.5 60 PUFFS/INHALER INH SCH ×2 (07:44→20:47)
[2017-04-01] MEDS: CHECK FENTANYL PATCH PLACEMENT SCH ×3 (07:44→15:37)
[2017-04-01] MEDS: GUAIFENESIN 600 MG TABCR PO SCH ×2 (07:44→20:48)
[2017-04-01] MEDS: CEFEPIME IV 2,000 MG in SYRINGE 7.5 ML IV SCH ×2 (07:54→20:48)
[2017-04-01 08:21] LABS: BUN/CREATININE RATIO 37.6 (10-20); CREATININE 0.51 mg/dl (0.60-1.40); MAGNESIUM 1.4 mg/dl (1.8-2.4); POTASSIUM 4.2 mmol/L (3.5-5.1)
[2017-04-01 08:22] LABS: MEAN CELL VOLUME 99.1 fL (80-100); MEAN CORPUSCULAR HEMOGLOBIN 31.9 pg (25-34); MEAN CORPUSCULAR HGB CONC 32.2 g/dl (32-36); MEAN PLATELET VOLUME 8.5 fL (7.4-10.4); PLATELET COUNT 24 K/uL (130-400); RED BLOOD COUNT 2.32 M/uL (4.7-6.1)
[2017-04-01 08:26] LABS: ANISOCYTOSIS PRESENT; COMPLETE YES; DOHLE BODIES 1+; IG% 1.8 %; LYMPH % 16.4 %; LYMPH ABS # 0.18 K/uL (1.2-3.4); MONO % 10.9 %; NEUT % 70.9 %; PLT ESTIMATE DECREASED; TOXIC GRANULATION 1+
[2017-04-01] MEDS ORDERED: ACETAMINOPHEN 325 MG TAB PO STA (09:05)
--- NOTE | 2017-04-01 09:12 | Clinical Documentation Query ---
CLINICAL VALIDATION QUERY Dr. CHAVARRIA, Thank you for the documentation of Acute on Chronic respiratory failure noted on 03/31/17 in the H/P. Due to recent RAC audit denials and stringent requirements passed on by our coding department, clear clinical indicators and treatment must be present. Please include the clinical support and treatment in your next progress note. Our coding department is requiring at least 2 of the indicators below or they will not code this diagnosis: Acute Respiratory Failure indicators include: * Respirations >28 or tachypnea * Air hunger * Use of accessory muscles of respiration * Inability to speak in full sentences *Cyanosis * Pulse ox <90% RA or <95% on O2 In your clinical opinion is this patient being managed for: ( x ) Acute and chronic hypoxic respiratory failure evidenced by tachypnea and O2 sat of 83% on 3L ( ) Not Agree ( ) Other explanation of clinical findings (Please Explain) ( ) Unable to determine (Please Define) ( ) Need to Discuss Please clarify and document your clinical opinion in the progress notes and discharge summary. Terms such as "probable", "suspected", "likely", "questionable", "possible", or "still to be ruled out" are acceptable. IF IN AGREEMENT, YOU MUST DOCUMENT ABOVE DIAGNOSTIC STATEMENT IN DAILY PROGRESS NOTES AND DISCHARGE SUMMARY. This document is not part of the patient's record. Thank You, Iman Ovalles RN [phone]
[2017-04-01] MEDS: MAGNESIUM SULFATE 1GM / D5W 1 GM in PREMIXED IN D5W 100 ML IV SCH ×2 (09:41→10:54)
--- NOTE | 2017-04-01 10:41 | Hospitalist Progress Note ---
Hospitalist Progress Note Date of Service Apr 01, 2017. Subjective Pt evaluation today including: conversation w/ patient, conversation w/ solutions architect consultant (Oncology) Pt feels his breathing is a bit better than yesterday, still TSE and not back to baseline. Coughgin excess sputum but not able to bring it all the way up. When he does, it's yellow-green, no hemoptysis. Denies any further hematuria since 2 days ago, no urinary retention Constitutional: No fever, No chills Abdomen: No diarrhea, No constipation All Other Systems: Reviewed and Negative Objective Vital Signs Date Time Temp Pulse Resp B/P (MAP) Pulse Ox O2 Delivery O2 Flow Rate FiO2 04/01/17 08:36 70 16 93 Nasal Cannula 4.0 04/01/17 08:00 93 Nasal Cannula 4.0 04/01/17 07:56 37.0 65 16 100/48 (65) 93 Nasal Cannula 4.5 04/01/17 04:00 97 Nasal Cannula 5.0 04/01/17 03:45 36.5 71 22 111/54 (73) 96 Nasal Cannula 5.0 04/01/17 00:01 97 Nasal Cannula 5.0 03/31/17 23:33 36.4 72 22 102/56 (71) 97 Nasal Cannula 5.0 03/31/17 20:49 70 16 94 Nasal Cannula 5.0 03/31/17 20:00 94 Nasal Cannula 03/31/17 19:19 36.9 65 21 119/54 (75) 94 Nasal Cannula 5.0 03/31/17 16:40 36.9 88 22 106/52 (70) 94 Nasal Cannula 5.0 03/31/17 16:06 83 22 109/61 96 Nasal Cannula 03/31/17 14:54 89 16 100/49 92 Nasal Cannula 5.0 03/31/17 14:40 37.0 88 15 100/49 94 Nasal Cannula 3.0 03/31/17 13:23 89 Nasal Cannula 4.0 03/31/17 13:15 87 15 102/40 88 Nasal Cannula 3.0 03/31/17 12:18 90 23 105/56 98 Room Air 3.0 03/31/17 12:11 92 03/31/17 11:35 85 Nasal Cannula 3.0 03/31/17 11:35 85 Nasal Cannula 3.0 03/31/17 11:30 Nasal Cannula 3.0 85 03/31/17 11:18 37.0 92 24 96/57 83 Nasal Cannula 3.0 Physical Exam General Appearance: WD/WN, no apparent distress Eyes: sclerae normal, + pertinent finding (pale conjunctiva) ENT: hearing grossly normal, pharynx normal (no thrush) Neck: supple, trachea midline Respiratory/Chest: no respiratory distress, no accessory muscle use, + wheezing (diffusely, +scattered rhonchi) Cardiovascular: regular rate, rhythm, no edema, no murmur Abdomen: normal bowel sounds, non tender, soft, no organomegaly Extremities: non-tender, normal inspection, no pedal edema, no calf tenderness 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: alert, normal mood/affect, oriented x 3 Skin: warm/dry, no rash, + pallor Lymphatic: no adenopathy Laboratory Results Last 24 Hours Test 03/31/17 12:10 03/31/17 18:10 04/01/17 00:25 04/01/17 07:35 White Blood Count 1.41 K/uL 1.10 K/uL Red Blood Count 2.56 M/uL 2.32 M/uL Hemoglobin 8.3 g/dL 8.1 g/dL 7.4 g/dL Hematocrit 26.1 % 25.6 % 23.0 % Mean Corpuscular Volume 102.0 fL 99.1 fL Mean Corpuscular Hemoglobin 32.4 pg 31.9 pg Mean Corpuscular Hemoglobin Concent 31.8 g/dl 32.2 g/dl Platelet Count 41 K/uL 24 K/uL Mean Platelet Volume 9.3 fL 8.5 fL RDW Standard Deviation 72.1 fL 68.7 fL RDW Coefficient of Variation 19.5 % 19.0 % Neutrophils % (Manual) 66.9 % Lymphocytes % (Manual) 20.9 % Monocytes % (Manual) 8.7 % Eosinophils % (Manual) 0.9 % Basophils % (Manual) 1.7 % Myelocytes % 0.9 % Neutrophils # (Manual) 0.94 K/uL Total Absolute Neutrophils 0.94 K/uL Lymphocytes # (Manual) 0.29 K/uL Total Absolute Lymphocytes 0.29 K/uL Monocytes # (Manual) 0.12 K/uL Eosinophils # (Manual) 0.01 K/uL Basophils # (Manual) 0.02 K/uL Myelocytes # 0.01 K/uL Hypersegmented Polys 1+ Toxic Granulation 1+ 1+ Dohle Bodies 1+ 1+ Platelet Estimate DECREASED DECREASED Giant Platelets 1+ Hypochromasia PRESENT Anisocytosis PRESENT PRESENT Macrocytosis PRESENT Stomatocytes 1+ Prothrombin Time 12.1 SECONDS Prothromb Time International Ratio 1.1 Activated Partial Thromboplast Time 35.0 SECONDS Partial Thromboplastin Ratio 1.3 Sodium Level 136 mmol/L 136 mmol/L Potassium Level 4.4 mmol/L 4.2 mmol/L Chloride Level 94 mmol/L 96 mmol/L Carbon Dioxide Level 39 mmol/L 39 mmol/L Anion Gap 4.0 mmol/L 1.0 mmol/L Blood Urea Nitrogen 20 mg/dl 19 mg/dl Creatinine 0.39 mg/dl 0.51 mg/dl Est Creatinine Clear Calc Drug Dose 192.4 ml/min 147.1 ml/min Estimated GFR () 145.0 129.8 Estimated GFR (Non- 125.1 112.0 BUN/Creatinine Ratio 51.5 37.6 Random Glucose 94 mg/dl 136 mg/dl Calcium Level 9.0 mg/dl 9.0 mg/dl Total Bilirubin 0.4 mg/dl Aspartate Amino Transf (AST/SGOT) 18 U/L Alanine Aminotransferase (ALT/SGPT) 15 U/L Alkaline Phosphatase 105 U/L Troponin I < 0.015 ng/ml < 0.015 ng/ml < 0.015 ng/ml Pro-B-Type Natriuretic Peptide 299 pg/ml Total Protein 6.6 gm/dl Albumin 2.8 gm/dl Globulin 3.8 gm/dl Albumin/Globulin Ratio 0.7 Neutrophils (%) (Auto) 70.9 % Lymphocytes (%) (Auto) 16.4 % Monocytes (%) (Auto) 10.9 % Eosinophils (%) (Auto) 0.0 % Basophils (%) (Auto) 0.0 % Neutrophils # (Auto) 0.78 K/uL Lymphocytes # (Auto) 0.18 K/uL Monocytes # (Auto) 0.12 K/uL Eosinophils # (Auto) 0.00 K/uL Basophils # (Auto) 0.00 K/uL Immature Granulocyte % (Auto) 1.8 % Immature Granulocyte # (Auto) 0.02 K/uL Magnesium Level 1.4 mg/dl Assessment and Plan Mr. Hagan is a 66 y/o male with PMHx of Metastatic Adenocarcinoma of Lung ( Liver and Bone), COPD, CAD S/P [place] and S/P Stents, PE (October 2016), hematuria, HLD , and Urinary Retention who presents to the ED c/o SOB and cold-like symptoms x 4 days. No PNA on CT, here with acute COPD exacerbation/acute bronchitis and pancytopenia Acute on Chronic Hypoxic Respiratory Failure 2/2 Acute COPD Exacerbation: Baseline O2 of 3 L, currently requiring 4-5LNC. Continues with wheezing, increased sputum production, remains afebrile. CT no PNA but has lung mets No events on tele -ok to transfer to medical after blood transfusion today - continue Cefepime 2 g IV Q12H and Levaquin 750 mg IV daily while neutropenic and recent hospital stay for broad coverage - continue Methylprednisolone 60 mg IV Q8H and taper down when improving - continue Mucinex 1200 mg BID -continue Duo nebs ANNE-MARIE and PRN with Symbicort 2 puffs BID -continue supplemental O2 and wean back to home O2 as able to Gross Hematuria/H/o urinary retention: Likely from Thrombocytopenia and Lovenox. Was seen by Urol and offered cystoscopy in past but declined. 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 No difficulty with urinary retention so far - continue ot hold Lovenox given hematuria and thrombocytopenia -declines further Urology eval at this time -continue FLomax and finasteride -bladder scan prn Neutropenia and Pancytopenia 2/2 Chemotherapy: ANC 780 today, plts down to 24k, Hgb down to 7.4, no evidence of bleeding currently - Neutropenic precautions -d/w Oncology--> transfuse 1 unit PRBCs today -no plt transfusion for now as no active bleeding -continue to hold Lovenox -follow CBC with diff Metastatic Adenocarcinoma of Lung (Liver and Bone Mets): Follows with Dr. Kory Ray, has received XRT and currently on chemo - Pain management with Fentanyl patch 75 mcg Q72H and morphine 15 mg Q4H PRN for pain - Poor appetite due to chemotherapy - consult nutrition for dietary recommendations -d/w Oncology-plan is no more chemo for now due to repeated hospitalizations and low counts -f/u Oncology after dc CAD S/P [place] and S/P Stents: STABLE. 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
[2017-04-01] MEDS: LEVOFLOXACIN / D5W 750 MG in PREMIXED IN D5W 150 ML IV SCH (16:38)
--- NOTE | 2017-04-01 16:57 | Oncology Consultation ---
Oncology/Heme Consultation Date of Consultation: Apr 01, 2017. Attending Physician: Domo Welch MD, PhD Reason for Consultation: Pancytopenia Metastatic NSCLC History of Present Illness Mr. Hagan is a 66 year old gentleman well-known to me with metastatic NSCLC. He's been receiving chemotherapy for the last few months, which has been complicated by multiple admissions for low blood counts and hematuria. He contacted my office yesterday due to shortness of breath. He came in and was hypoxic to the high 80s on his usual 3L nasal cannula, so we sent him to the ER. There, he was found to have a COPD exacerbation. He is now on steroids and antibiotics and is improving. However, his counts are falling. He had a couple episodes of scant hematuria, but is not bleeding now. He denies any hemoptysis or pain. He has no other infectious symptoms, but has increased sputum production. Past Medical/Surgical History Medical Problems: (1) Anemia Status: Acute (2) Bilateral pulmonary embolism Status: Acute (3) Bronchitis Status: Acute (4) Dehydration Status: Acute (5) Dehydration Status: Acute (6) Dysuria Status: Acute (7) Generalized weakness Status: Acute (8) Hematuria Status: Acute (9) Hematuria Status: Acute (10) Hematuria Status: Acute (11) Hypotension Status: Acute (12) Hypotension Status: Acute (13) Hypoxia Status: Chronic (14) Hypoxia Status: Acute (15) Left rib fracture Status: Acute (16) Lung cancer Status: Acute (17) Mediastinal lymphadenopathy Status: Acute (18) Metastatic lung cancer (metastasis from lung to other site) Status: Acute (19) Neutropenia Status: Acute (20) Neutropenia Status: Acute (21) Non-traumatic compression fracture of T5 thoracic vertebra Status: Acute (22) Osteolytic 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 Status: Acute (23) Pathological fracture of rib of right side Status: Acute (24) Pulmonary nodules Status: Acute (25) SVT (supraventricular tachycardia) Status: Acute (26) Thrombocytopenia Status: Acute Family History Cancer Social History Smoking Status: Former Smoker Smokeless Tobacco Use: No Alcohol Use: none Drug Use: none Marital Status: in relationship Housing Status: lives with significant other Occupation Status: retired Allergies Coded Allergies: No Known Allergies (Verified , 03/31/17) Home Medications Scheduled Budesonide/Formoterol Fumarate (Symbicort 160/4.5 Inhaler ), 2 PUFFS INH BID Enoxaparin (Lovenox), 80 MG SQ Q12H Fentanyl (Fentanyl), 75 MCG TD [id number] Finasteride (Finasteride), 5 MG PO QAM Tamsulosin HCl (Tamsulosin HCl), 0.4 MG PO HS Scheduled PRN Albuterol Sulfate (Proventil Hfa), 2 PUFFS INH QID PRN for Wheezing Morphine Sulfate (Morphine Sulfate), 15 MG PO Q4H PRN for Pain Current Inpatient Medications Current Inpatient Medications Medications (Trade) Dose Ordered Sig/Abbi Route Start Time Stop Time Status Last Admin Dose Admin Ioversol (Optiray 320) 100 ml UD PRN IV 03/31/17 12:00 04/04/17 11:59 Acetaminophen (Tylenol Tab) 650 mg Q6H PRN PO 03/31/17 15:15 04/30/17 15:14 Al Hydrox/Mg Hydrox/Simethicone (Maalox Max Susp) 15 ml Q4H PRN PO 03/31/17 15:15 04/30/17 15:14 Magnesium Hydroxide (Milk Of Magnesia Susp) 30 ml Q12H PRN PO 03/31/17 15:15 04/30/17 15:14 Ondansetron HCl (Zofran Inj) 4 mg Q6H PRN IV 03/31/17 15:15 04/30/17 15:14 Polyethylene (Miralax Powder Packet) 17 gm DAILY PRN PO 03/31/17 15:15 04/30/17 15:14 Albuterol/ Ipratropium (Duoneb) 3 ml Q6R NEB 03/31/17 21:00 04/30/17 20:59 04/01/17 14:02 3 ML Albuterol/ Ipratropium (Duoneb) 3 ml Q2H PRN INH 03/31/17 15:15 04/30/17 15:14 Budesonide/ Formoterol Fumarate (Symbicort 160/ 4.5 Inh) 2 puffs BID INH 03/31/17 21:00 04/30/17 20:59 04/01/17 07:44 2 PUFFS Finasteride (Proscar Tab) 5 mg QAM PO 04/01/17 09:00 05/01/17 08:59 04/01/17 07:43 5 MG Morphine Sulfate (MoRPHine SULFATE IR TAB) 15 mg Q4H PRN PO 03/31/17 15:15 04/14/17 15:14 Tamsulosin HCl (Flomax Cap) 0.4 mg HS PO 03/31/17 21:00 04/30/17 20:59 03/31/17 21:00 0.4 MG Fentanyl (Duragesic Patch) 75 mcg Q3D TD 03/31/17 16:46 04/14/17 16:45 03/31/17 17:32 75 MCG Levofloxacin 750 mg/Prmx 150 ml @ 100 mls/hr Q24H IV 04/01/17 12:00 04/08/17 11:59 04/01/17 16:38 100 MLS/HR Methylprednisolone Sodium Succinate 60 mg/Syringe 0.96 ml @ 1.5 mls/min Q8H IV 03/31/17 17:00 04/30/17 16:59 04/01/17 16:38 1.5 MLS/MIN Guaifenesin (Mucinex Contr Rel Tab) 1,200 mg Q12 PO 03/31/17 21:00 04/30/17 20:59 04/01/17 07:44 1,200 MG Cefepime HCl 2000 mg/Syringe 20 ml @ 5 mls/min Q12H IV 03/31/17 20:00 04/07/17 19:59 04/01/17 07:54 5 MLS/MIN Miscellaneous (Fentanyl Patch Remove & Waste) 1 ea Q72H N/A 03/31/17 16:45 04/30/17 16:44 03/31/17 17:32 1 EA Miscellaneous Information (Check Fentanyl Patch Placement) 1 ea QS N/A 04/01/17 00:00 05/01/17 00:00 04/01/17 15:37 1 EA Review of Systems Constitutional: + weakness, + fatigue, No fever, No chills ENT: No unusual epistaxis Respiratory: + cough, + sputum, + wheezing, + shortness of breath Cardiovascular: No chest pain Abdomen: No pain, No nausea, No vomiting Musculoskeletal: No joint pain, No muscle pain Genitourinary - Male: + hematuria, No dysuria Hematologic / Lymphatic: No abnormal bleeding/bruising Integumentary: No rash Physical Exam Date Time Temp Pulse Resp B/P (MAP) Pulse Ox O2 Delivery O2 Flow Rate FiO2 04/01/17 16:02 Nasal Cannula 4.0 04/01/17 15:08 36.8 61 16 110/56 04/01/17 14:27 36.7 65 16 99/49 04/01/17 14:02 65 16 92 Nasal Cannula 4.0 04/01/17 13:24 36.8 80 16 93/56 93 4.0 04/01/17 12:47 36.3 61 16 102/49 04/01/17 12:24 36.9 66 18 103/53 92 4.0 04/01/17 12:00 93 Nasal Cannula 4.0 04/01/17 11:56 36.7 73 18 107/47 93 4.0 04/01/17 11:54 () 04/01/17 11:54 04/01/17 11:52 37.0 63 14 110/54 (72) 92 Nasal Cannula 4.5 04/01/17 11:40 36.7 73 20 109/53 91 4.0 04/01/17 08:36 70 16 93 Nasal Cannula 4.0 04/01/17 08:00 93 Nasal Cannula 4.0 04/01/17 07:56 37.0 65 16 100/48 (65) 93 Nasal Cannula 4.5 04/01/17 04:00 97 Nasal Cannula 5.0 04/01/17 03:45 36.5 71 22 111/54 (73) 96 Nasal Cannula 5.0 04/01/17 00:01 97 Nasal Cannula 5.0 03/31/17 23:33 36.4 72 22 102/56 (71) 97 Nasal Cannula 5.0 03/31/17 20:49 70 16 94 Nasal Cannula 5.0 03/31/17 20:00 94 Nasal Cannula 03/31/17 19:19 36.9 65 21 119/54 (75) 94 Nasal Cannula 5.0 General Appearance: no apparent distress, + pertinent finding (chronically ill and weak appearing) Eyes: EOMI ENT: pharynx normal (no bleeding) Respiratory/Chest: no accessory muscle use, + wheezing (in all clay) Cardiovascular: regular rate, rhythm Abdomen/GI: non tender, soft Extremities/Musculoskelatal: no calf tenderness, no pedal edema Neurologic/Psych: alert, oriented x 3 Skin: no rash Laboratory Results Last 24 Hours Test 03/31/17 18:10 04/01/17 00:25 04/01/17 07:35 Hemoglobin 8.1 g/dL 7.4 g/dL Hematocrit 25.6 % 23.0 % Troponin I < 0.015 ng/ml < 0.015 ng/ml White Blood Count 1.10 K/uL Red Blood Count 2.32 M/uL Mean Corpuscular Volume 99.1 fL Mean Corpuscular Hemoglobin 31.9 pg Mean Corpuscular Hemoglobin Concent 32.2 g/dl Platelet Count 24 K/uL Mean Platelet Volume 8.5 fL Neutrophils (%) (Auto) 70.9 % Lymphocytes (%) (Auto) 16.4 % Monocytes (%) (Auto) 10.9 % Eosinophils (%) (Auto) 0.0 % Basophils (%) (Auto) 0.0 % Neutrophils # (Auto) 0.78 K/uL Lymphocytes # (Auto) 0.18 K/uL Monocytes # (Auto) 0.12 K/uL Eosinophils # (Auto) 0.00 K/uL Basophils # (Auto) 0.00 K/uL RDW Standard Deviation 68.7 fL RDW Coefficient of Variation 19.0 % Immature Granulocyte % (Auto) 1.8 % Immature Granulocyte # (Auto) 0.02 K/uL Toxic Granulation 1+ Dohle Bodies 1+ Platelet Estimate DECREASED Anisocytosis PRESENT Sodium Level 136 mmol/L Potassium Level 4.2 mmol/L Chloride Level 96 mmol/L Carbon Dioxide Level 39 mmol/L Anion Gap 1.0 mmol/L Blood Urea Nitrogen 19 mg/dl Creatinine 0.51 mg/dl Est Creatinine Clear Calc Drug Dose 147.1 ml/min Estimated GFR () 129.8 Estimated GFR (Non- 112.0 BUN/Creatinine Ratio 37.6 Random Glucose 136 mg/dl Calcium Level 9.0 mg/dl Magnesium Level 1.4 mg/dl Assessment & Plan Mr. Hagan is pancytopenic from chemotherapy. His last dose was a week ago, so this is appropriate timing for his jose (usually days 7-10). His hemoglobin is in the 7s, so I would give him one unit of PRBCs. His platelets are in the 20s, but he is not actively bleeding. Platelets have a short half-life and so, unless he is actively bleeding, I would not transfuse him platelets. We will plan on stopping his chemotherapy, as his counts are clearly not tolerating treatment. I would continue other supportive care for his pulmonary issues as indicated.
[2017-04-01] MEDS: TAMSULOSIN HCL 0.4 MG CAP PO SCH (20:48)
[2017-04-02] VITALS (11 sets, daily range): BP systolic 97–111; BP diastolic 40–64; PULSE 49–85; TEMP 36.6–37.1; O2SAT 90–98
[2017-04-02] MEDS: ALBUT/IPRATROP 3MG/0.5MG NEB 3 ML VIAL NEB SCH ×5 (01:23→19:26)
[2017-04-02] MEDS: METHYLPREDNISOLONE IV 60 MG in SYRINGE 0 ML IV SCH ×3 (01:38→16:35)
[2017-04-02] MEDS: CHECK FENTANYL PATCH PLACEMENT SCH ×3 (01:45→16:00)
[2017-04-02] MEDS: CEFEPIME IV 2,000 MG in SYRINGE 7.5 ML IV SCH ×2 (08:01→20:28)
[2017-04-02] MEDS: BUDESONIDE/FORMOTEROL FUMARATE 160/4.5 60 PUFFS/INHALER INH SCH ×2 (08:01→20:28)
[2017-04-02] MEDS: FINASTERIDE 5 MG TAB PO SCH (08:02)
[2017-04-02 08:41] LABS: BUN/CREATININE RATIO 38.9 (10-20); CALCIUM 9.1 mg/dl (8.5-10.1); CREATININE 0.5 mg/dl (0.60-1.40); MAGNESIUM 1.6 mg/dl (1.8-2.4); POTASSIUM 4.3 mmol/L (3.5-5.1)
[2017-04-02 08:46] LABS: ANISOCYTOSIS PRESENT; COMPLETE YES; DOHLE BODIES 1+; HEMATOCRIT 25.5 % (42-52); LYMPH ABS # 0.32 K/uL (1.2-3.4); LYMPHOCYTE % 7.9 %; MEAN CELL VOLUME 97.3 fL (80-100); MEAN CORPUSCULAR HEMOGLOBIN 32.1 pg (25-34); MEAN CORPUSCULAR HGB CONC 32.9 g/dl (32-36); NEUTROPHILS % 81.6 %; PLATELET COUNT 22 K/uL (130-400); PLT ESTIMATE SIGNIFIC DECREASED; RED BLOOD COUNT 2.62 M/uL (4.7-6.1); TOXIC GRANULATION 1+; WHITE BLOOD COUNT 4.04 K/uL (4.8-10.8)
[2017-04-02] MEDS ORDERED: MAGNESIUM SULFATE 1GM / D5W 1 GM in PREMIXED IN D5W 100 ML IV STA (08:52)
[2017-04-02] MEDS: GUAIFENESIN 600 MG TABCR PO SCH ×2 (08:54→20:29)
[2017-04-02] MEDS: LEVOFLOXACIN / D5W 750 MG in PREMIXED IN D5W 150 ML IV SCH (12:12)
--- NOTE | 2017-04-02 14:44 | Progress Note ---
Subjective Date of Service: Apr 02, 2017. Subjective Pt evaluation today including: conversation w/ patient, physical exam, chart review, lab review, review of studies, review of inpatient medication list Pt resting in bed comfortably States still not at baseline Dry cough at this time No acute events overnight Problem List Medical Problems: (1) Anemia Status: Acute (2) Bilateral pulmonary embolism Status: Acute (3) Bronchitis Status: Acute (4) Dehydration Status: Acute (5) Dehydration Status: Acute (6) Dysuria Status: Acute (7) Generalized weakness Status: Acute (8) Hematuria Status: Acute (9) Hematuria Status: Acute (10) Hematuria Status: Acute (11) Hypotension Status: Acute (12) Hypotension Status: Acute (13) Hypoxia Status: Chronic (14) Hypoxia Status: Acute (15) Left rib fracture Status: Acute (16) Lung cancer Status: Acute (17) Mediastinal lymphadenopathy Status: Acute (18) Metastatic lung cancer (metastasis from lung to other site) Status: Acute (19) Neutropenia Status: Acute (20) Neutropenia Status: Acute (21) Non-traumatic compression fracture of T5 thoracic vertebra Status: Acute (22) Osteolytic 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 Status: Acute (23) Pathological fracture of rib of right side Status: Acute (24) Pulmonary nodules Status: Acute (25) SVT (supraventricular tachycardia) Status: Acute (26) Thrombocytopenia Status: Acute Review of Systems Constitutional: No fever, No chills, No sweats, No weight loss Eyes: No worsening of vision, No eye pain, No redness, No discharge ENT: No hearing loss, No unusual epistaxis, No nasal symptoms, No sore throat Respiratory: + cough, + shortness of breath, + dyspnea at rest, No sputum, No wheezing, No dyspnea on exertion Cardiac: No chest pain, No orthopnea, No PND, No edema Abdomen: No pain, No nausea, No vomiting, No diarrhea, No constipation Musculoskeletal: No joint pain, No muscle pain, No swelling, No calf pain Male : No dysuria, No urinary frequency, No incontinence, No nocturia more than once/night, No slowing stream Neurologic: No memory loss, No paralysis, No weakness, No numbness/tingling Psychiatric: No depression symptoms, No anhedonism, No anxiety, No insomnia Endo: No fatigue, No excessive thirst Skin: No rash, No itch Objective Vital Signs Date Time Temp Pulse Resp B/P (MAP) Pulse Ox O2 Delivery O2 Flow Rate FiO2 04/02/17 14:11 58 16 95 Nasal Cannula 3.0 04/02/17 09:44 94 Nasal Cannula 4.0 04/02/17 09:00 Nasal Cannula 4.0 04/02/17 07:26 37.0 61 20 111/64 (80) 96 Nasal Cannula 3.0 04/02/17 07:19 60 16 92 Nasal Cannula 3.0 04/02/17 04:21 36.7 55 18 97/45 (62) 93 Nasal Cannula 3.0 04/02/17 03:16 Nasal Cannula 4.0 04/02/17 02:17 54 16 98 Nasal Cannula 4.0 04/01/17 23:14 37.0 58 18 104/53 (70) 96 Nasal Cannula 4.0 04/01/17 21:00 Nasal Cannula 4.0 04/01/17 19:13 71 16 93 Nasal Cannula 4.0 04/01/17 18:49 37.0 77 18 119/55 (76) 93 Nasal Cannula 4.0 04/01/17 17:24 36.8 61 16 92 4.0 04/01/17 16:02 Nasal Cannula 4.0 04/01/17 15:08 36.8 61 16 110/56 Physical Exam General Appearance: WD/WN, no apparent distress Eyes: normal inspection, PERRL, EOMI, sclerae normal Neck: supple, no adenopathy, thyroid normal, no JVD Respiratory/Chest: chest non-tender, no accessory muscle use, + decreased breath sounds, + wheezing Cardiovascular: no edema, no gallop, no JVD Abdomen: normal bowel sounds, non tender, soft, no organomegaly Extremities: normal range of motion, non-tender, normal inspection, no pedal edema 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: no motor/sensory deficits, alert, normal mood/affect, oriented x 3 Skin: normal color, warm/dry, no rash Lymphatic: no adenopathy Laboratory Results Last 24 Hours Test 04/02/17 07:48 White Blood Count 4.04 K/uL Red Blood Count 2.62 M/uL Hemoglobin 8.4 g/dL Hematocrit 25.5 % Mean Corpuscular Volume 97.3 fL Mean Corpuscular Hemoglobin 32.1 pg Mean Corpuscular Hemoglobin Concent 32.9 g/dl Platelet Count 22 K/uL Mean Platelet Volume 9.0 fL RDW Standard Deviation 67.2 fL RDW Coefficient of Variation 19.0 % Neutrophils % (Manual) 81.6 % Lymphocytes % (Manual) 7.9 % Monocytes % (Manual) 10.5 % Neutrophils # (Manual) 3.30 K/uL Total Absolute Neutrophils 3.30 K/uL Lymphocytes # (Manual) 0.32 K/uL Total Absolute Lymphocytes 0.32 K/uL Monocytes # (Manual) 0.42 K/uL Toxic Granulation 1+ Dohle Bodies 1+ Platelet Estimate SIGNIFIC DECREASED Anisocytosis PRESENT Sodium Level 136 mmol/L Potassium Level 4.3 mmol/L Chloride Level 97 mmol/L Carbon Dioxide Level 35 mmol/L Anion Gap 4.0 mmol/L Blood Urea Nitrogen 20 mg/dl Creatinine 0.50 mg/dl Est Creatinine Clear Calc Drug Dose 150.1 ml/min Estimated GFR () 130.9 Estimated GFR (Non- 112.9 BUN/Creatinine Ratio 38.9 Random Glucose 119 mg/dl Calcium Level 9.1 mg/dl Magnesium Level 1.6 mg/dl Assessment and Plan Mr. 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 No PNA on CT, here with acute COPD exacerbation/acute bronchitis and pancytopenia Acute on Chronic Hypoxic Respiratory Failure 2/2 Acute COPD Exacerbation: Baseline O2 of 3 L, currently requiring 4-5LNC. Continues with wheezing, increased sputum production, remains afebrile. CT no PNA but has lung mets No events on tele - continue Cefepime 2 g IV Q12H and Levaquin 750 mg IV daily, neutropenia resolved - continue Methylprednisolone 60 mg IV Q8H - continue Mucinex 1200 mg BID, start on tessalon perles as well -continue Duo nebs ANNE-MARIE and PRN with Symbicort 2 puffs BID -continue supplemental O2 and wean back to home O2 as able to Gross Hematuria/H/o urinary retention: Likely from Thrombocytopenia and Lovenox. Was seen by Urol and offered cystoscopy in past but declined. Says prior to admission, it was just a scant amount, none further since stopping his Lovenox 2 days [employer]. No difficulty with urinary retention so far - continue to hold Lovenox given hematuria and thrombocytopenia -declines further Urology eval at this time -continue Flomax and finasteride -bladder scan prn Neutropenia and Pancytopenia 2/2 Chemotherapy: <o evidence of bleeding currently - Neutropenic precautions can be dced as resolved - s/p 1 unit PRBC transfusion on 04/01 - no plt transfusion for now as no active bleeding - continue to hold Lovenox - follow CBC with diff Metastatic Adenocarcinoma of Lung (Liver and Bone Mets): Follows with Dr. Kory Ray, has received XRT and currently on chemo - Pain management with Fentanyl patch 75 mcg Q72H and morphine 15 mg Q4H PRN for pain - Poor appetite due to chemotherapy - consult nutrition for dietary recommendations -d/w Oncology-plan is no more chemo for now due to repeated hospitalizations and low counts -f/u Oncology after dc CAD S/P AK and S/P Stents: STABLE. Troponin neg x 3 - Denies anginal symptoms - echo from 2009 with normal EF -on no meds for this (no ASA, statin,beta chandrika) H/O Pulmonary Embolism 10/2016: - Currently on Lovenox however has not taken 2 days [employer] due to hematuria - Discussed risks of holding Lovenox treatment to include risk of pulmonary embolism that could ultimately lead to - patient plans to resume Lovenox when hematuria resolves - patient does have thrombocytopenia as wlel -resume Lovenox when plts improve and if remains without bleeding HLD: No current medications DVT Prophylaxis: SCDs - Hold chemical prophylaxis at this time due to thrombocytopenia and reported hematuria Code Status: FULL RESUSCITATION
[2017-04-02] MEDS: TAMSULOSIN HCL 0.4 MG CAP PO SCH (20:29)
[2017-04-03] VITALS (10 sets, daily range): BP systolic 105–122; BP diastolic 47–64; PULSE 56–85; TEMP 36.6–37.3; O2SAT 90–99
[2017-04-03] MEDS: CHECK FENTANYL PATCH PLACEMENT SCH ×3 (00:12→15:44)
[2017-04-03] MEDS: METHYLPREDNISOLONE IV 60 MG in SYRINGE 0 ML IV SCH ×2 (00:12→08:14)
[2017-04-03] MEDS: ALBUT/IPRATROP 3MG/0.5MG NEB 3 ML VIAL NEB SCH ×4 (02:11→19:27)
[2017-04-03 06:35] LABS: CREATININE 0.58 mg/dl (0.60-1.40)
[2017-04-03 06:36] LABS: BUN/CREATININE RATIO 37.8 (10-20); CALCIUM 9.1 mg/dl (8.5-10.1); MAGNESIUM 1.7 mg/dl (1.8-2.4); POTASSIUM 3.9 mmol/L (3.5-5.1)
[2017-04-03 06:53] LABS: MEAN CORPUSCULAR HGB CONC 32.7 g/dl (32-36)
[2017-04-03 07:12] LABS: ANISOCYTOSIS PRESENT; BASO % 0.1 %; BASO ABS # 0.01 K/uL (0-0.2); COMPLETE YES; HEMATOCRIT 27.5 % (42-52); LYMPH % 2.6 %; MEAN CORPUSCULAR HEMOGLOBIN 32.7 pg (25-34); MONO % 4.5 %; NEUT % 91.8 %; PLATELET COUNT 19 K/uL (130-400); PLT ESTIMATE SIGNIFIC DECREASED; RED BLOOD COUNT 2.75 M/uL (4.7-6.1); TOXIC GRANULATION 1+; WHITE BLOOD COUNT 10.94 K/uL (4.8-10.8)
[2017-04-03] MEDS: BUDESONIDE/FORMOTEROL FUMARATE 160/4.5 60 PUFFS/INHALER INH SCH ×2 (08:13→20:32)
[2017-04-03] MEDS: FINASTERIDE 5 MG TAB PO SCH (08:14)
[2017-04-03] MEDS: GUAIFENESIN 600 MG TABCR PO SCH ×2 (08:14→20:32)
[2017-04-03] MEDS: BENZONATATE 100MG CAP PO SCH ×3 (08:18→20:32)
[2017-04-03] MEDS: CEFEPIME IV 2,000 MG in SYRINGE 7.5 ML IV SCH ×2 (08:18→20:32)
[2017-04-03] MEDS ORDERED: LEVOFLOXACIN 750 MG TAB PO SCH (13:00)
[2017-04-03] MEDS: FENTANYL PATCH REMOVE & WASTE SCH (15:45)
[2017-04-03] MEDS: FENTANYL 75 MCG/HR TDSY TD SCH (16:47)
[2017-04-03] MEDS: METHYLPREDNISOLONE IV 40 MG in SYRINGE 0 ML IV SCH (17:02)
--- NOTE | 2017-04-03 18:06 | Progress Note ---
Subjective Date of Service: Apr 03, 2017. Subjective Pt evaluation today including: conversation w/ patient, physical exam, chart review, lab review, review of studies, review of inpatient medication list Reports feeling slightly better Still not at baseline Dry cough No events overnight Problem List Medical Problems: (1) Anemia Status: Acute (2) Bilateral pulmonary embolism Status: Acute (3) Bronchitis Status: Acute (4) Dehydration Status: Acute (5) Dehydration Status: Acute (6) Dysuria Status: Acute (7) Generalized weakness Status: Acute (8) Hematuria Status: Acute (9) Hematuria Status: Acute (10) Hematuria Status: Acute (11) Hypotension Status: Acute (12) Hypotension Status: Acute (13) Hypoxia Status: Chronic (14) Hypoxia Status: Acute (15) Left rib fracture Status: Acute (16) Lung cancer Status: Acute (17) Mediastinal lymphadenopathy Status: Acute (18) Metastatic lung cancer (metastasis from lung to other site) Status: Acute (19) Neutropenia Status: Acute (20) Neutropenia Status: Acute (21) Non-traumatic compression fracture of T5 thoracic vertebra Status: Acute (22) Osteolytic 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 Status: Acute (23) Pathological fracture of rib of right side Status: Acute (24) Pulmonary nodules Status: Acute (25) SVT (supraventricular tachycardia) Status: Acute (26) Thrombocytopenia Status: Acute Review of Systems Constitutional: No see HPI, No fever, No chills, No sweats, No weight loss, No weakness, No fatigue, No problem reported ENT: No see HPI, No hearing loss, No unusual epistaxis, No nasal symptoms, No sore throat, No tinnitus, No dental problems, No trouble swallowing, No problem reported Respiratory: + cough, + shortness of breath, + dyspnea at rest, No see HPI, No sputum, No wheezing, No dyspnea on exertion, No hemoptysis, No problem reported Cardiac: No see HPI, No chest pain, No orthopnea, No PND, No edema, No claudication, No palpitations, No problem reported Abdomen: No see HPI, No pain, No nausea, No vomiting, No diarrhea, No constipation, No GI bleeding, No problem reported Musculoskeletal: No see HPI, No joint pain, No muscle pain, No swelling, No calf pain, No problem reported Male : No see HPI, No dysuria, No urinary frequency, No incontinence, No nocturia more than once/night, No slowing stream, No hematuria, No sexual dysfunction, No problem reported Neurologic: No see HPI, No memory loss, No paralysis, No weakness, No numbness/ tingling, No vertigo, No balance problems, No problem reported Psychiatric: No see HPI, No depression symptoms, No anhedonism, No anxiety, No insomnia, No substance abuse, No problem reported Skin: No see HPI, No rash, No itch, No new/changing skin lesions, No color change, No bleeding, No problem reported Objective Vital Signs Date Time Temp Pulse Resp B/P (MAP) Pulse Ox O2 Delivery O2 Flow Rate FiO2 04/03/17 16:00 92 Nasal Cannula 4.0 04/03/17 15:11 37.3 63 16 105/54 (71) 92 Nasal Cannula 4.0 04/03/17 14:29 70 14 95 Nasal Cannula 4.0 04/03/17 11:18 36.6 62 14 108/55 (72) 92 Room Air 4.0 04/03/17 09:00 85 16 90 Nasal Cannula 3.0 04/03/17 08:15 Nasal Cannula 4.0 04/03/17 07:29 36.9 56 16 115/62 (79) 99 Nasal Cannula 4.0 04/03/17 04:06 36.7 57 18 113/64 (80) 98 Nasal Cannula 4.0 04/03/17 00:00 Nasal Cannula 4.0 04/02/17 23:42 36.9 71 20 105/53 (70) 91 Nasal Cannula 4.0 04/02/17 19:38 37.1 67 18 103/40 (61) 90 Nasal Cannula 3.0 04/02/17 19:26 85 16 90 Nasal Cannula 3.0 Physical Exam General Appearance: WD/WN, no apparent distress Eyes: normal inspection, PERRL, EOMI, sclerae normal Neck: supple, no adenopathy, thyroid normal, no JVD Respiratory/Chest: chest non-tender, no accessory muscle use, + decreased breath sounds, + wheezing Cardiovascular: regular rate, rhythm, no edema, no gallop, no JVD, no murmur Abdomen: normal bowel sounds, non tender, soft, no organomegaly, no pulsatile mass Extremities: normal range of motion, non-tender, normal inspection, no pedal edema 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: no motor/sensory deficits, alert, normal mood/affect, oriented x 3 Skin: normal color, warm/dry, no rash Lymphatic: no adenopathy Laboratory Results Last 24 Hours Test 04/03/17 05:29 White Blood Count 10.94 K/uL Red Blood Count 2.75 M/uL Hemoglobin 9.0 g/dL Hematocrit 27.5 % Mean Corpuscular Volume 100.0 fL Mean Corpuscular Hemoglobin 32.7 pg Mean Corpuscular Hemoglobin Concent 32.7 g/dl Platelet Count 19 K/uL Mean Platelet Volume 10.0 fL Neutrophils (%) (Auto) 91.8 % Lymphocytes (%) (Auto) 2.6 % Monocytes (%) (Auto) 4.5 % Eosinophils (%) (Auto) 0.0 % Basophils (%) (Auto) 0.1 % Neutrophils # (Auto) 10.53 K/uL Lymphocytes # (Auto) 0.30 K/uL Monocytes # (Auto) 0.52 K/uL Eosinophils # (Auto) 0.00 K/uL Basophils # (Auto) 0.01 K/uL RDW Standard Deviation 69.4 fL RDW Coefficient of Variation 19.2 % Immature Granulocyte % (Auto) 1.0 % Immature Granulocyte # (Auto) 0.12 K/uL Toxic Granulation 1+ Platelet Estimate SIGNIFIC DECREASED Anisocytosis PRESENT Sodium Level 135 mmol/L Potassium Level 3.9 mmol/L Chloride Level 97 mmol/L Carbon Dioxide Level 40 mmol/L Anion Gap -2.0 mmol/L Blood Urea Nitrogen 22 mg/dl Creatinine 0.58 mg/dl Est Creatinine Clear Calc Drug Dose 129.4 ml/min Estimated GFR () 123.1 Estimated GFR (Non- 106.2 BUN/Creatinine Ratio 37.8 Random Glucose 118 mg/dl Calcium Level 9.1 mg/dl Magnesium Level 1.7 mg/dl Assessment and Plan Mr. 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 No PNA on CT, here with acute COPD exacerbation/acute bronchitis and pancytopenia Acute on Chronic Hypoxic Respiratory Failure 2/2 Acute COPD Exacerbation: Baseline O2 of 3 L, currently requiring 4-5LNC. Continues with wheezing, increased sputum production, remains afebrile. CT no PNA but has lung mets No events on tele - continue Cefepime 2 g IV Q12H and Levaquin 750 mg IV daily, neutropenia resolved - continue Methylprednisolone 60 mg IV Q8H - continue Mucinex 1200 mg BID, start on tessalon perles as well -continue Duo nebs ANNE-MARIE and PRN with Symbicort 2 puffs BID -continue supplemental O2 and wean back to home O2 as able to Gross Hematuria/H/o urinary retention: Likely from Thrombocytopenia and Lovenox. Was seen by Urol and offered cystoscopy in past but declined. 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 No difficulty with urinary retention so far - continue to hold Lovenox given hematuria and thrombocytopenia -declines further Urology eval at this time -continue Flomax and finasteride -bladder scan prn Neutropenia and Pancytopenia 2/2 Chemotherapy: <o evidence of bleeding currently - Neutropenic precautions can be dced as resolved - s/p 1 unit PRBC transfusion on 04/01 - no plt transfusion for now as no active bleeding - continue to hold Lovenox - follow CBC with diff Metastatic Adenocarcinoma of Lung (Liver and Bone Mets): Follows with Dr. Kory Ray, has received XRT and currently on chemo - Pain management with Fentanyl patch 75 mcg Q72H and morphine 15 mg Q4H PRN for pain - Poor appetite due to chemotherapy - consult nutrition for dietary recommendations -d/w Oncology-plan is no more chemo for now due to repeated hospitalizations and low counts -f/u Oncology after dc CAD S/P [place] and S/P Stents: STABLE. 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
[2017-04-03] MEDS: TAMSULOSIN HCL 0.4 MG CAP PO SCH (20:32)
[2017-04-04] MEDS: METHYLPREDNISOLONE IV 40 MG in SYRINGE 0 ML IV SCH ×2 (00:12→08:56)
[2017-04-04] MEDS: CHECK FENTANYL PATCH PLACEMENT SCH ×2 (00:12→09:13)
[2017-04-04] MEDS: ALBUT/IPRATROP 3MG/0.5MG NEB 3 ML VIAL NEB SCH ×2 (01:45→07:15)
[2017-04-04 04:06] VITALS: BP 111/48; PULSE 65; TEMP 36.7; O2SAT 97
[2017-04-04 07:15] VITALS: BP 126/65; PULSE 57; PULSE 64; TEMP 37.3; O2SAT 92; O2SAT 97
[2017-04-04 08:00] VITALS: O2SAT 92
[2017-04-04] MEDS: CEFEPIME IV 2,000 MG in SYRINGE 7.5 ML IV SCH (08:56)
[2017-04-04] MEDS: BENZONATATE 100MG CAP PO SCH (08:56)
[2017-04-04] MEDS: FINASTERIDE 5 MG TAB PO SCH (08:57)
[2017-04-04] MEDS: GUAIFENESIN 600 MG TABCR PO SCH (08:57)
[2017-04-04] MEDS: BUDESONIDE/FORMOTEROL FUMARATE 160/4.5 60 PUFFS/INHALER INH SCH (08:57)
[2017-04-04] MEDS ORDERED: LVQ750 PO (09:51)
[2017-04-04] MEDS ORDERED: PRED10TA PO (09:51)
--- NOTE | 2017-04-04 11:09 | Discharge Instructions ---
Discharge Instructions Date of Service Apr 04, 2017. Admission Reason for Admission: Acute On Chronic Respiratory Failure W/ Hypoxia Discharge Discharge Diagnosis / Problem: COPD exacerbation Discharge Goals Goal(s): Decrease discomfort Activity Recommendations Activity Limitations: resume your previous activity Exercise/Sports Limitations: as tolerated . Instructions / Follow-Up Instructions / Follow-Up Patient to be discharged home Admitted with COPD exacerbation Will need to be discharged with antibiotic levaquin to take once daily for 5 more days in addition to prednisone (sterapred) taper to take as directed If worsening fevers, shortness of breath please report to ER Follow up with Ann Olivas in 1-2 weeks Current Hospital Diet Patient's current hospital diet: Regular Diet Discharge Diet Recommended Diet: Regular Diet Pending Studies Studies pending at discharge: no Medical Emergencies . Who to Call and When: Medical Emergencies: If at any time you feel your situation is an emergency, please call 911 immediately. . Non-Emergent Contact Non-Emergency issues call your: Primary Care Provider Call Non-Emergent contact if: you have a fever, you have any medication questions . . "Provider Documentation" section prepared by Dirk Toney. . VTE Core Measure Inpt VTE Proph given/why not?: SCD's
[2017-04-04 11:11] VITALS: BP 126/65; PULSE 64; TEMP 37.3; O2SAT 92
--- NOTE | 2017-04-04 15:00 | Discharge Summary ---
Discharge Summary Date of Service Apr 04, 2017. Discharge Summary Admission Date: Mar 31, 2017 at 15:13 Discharge Date: Apr 04, 2017 Discharge Disposition: Home Principal Diagnosis: COPD exacerbation Problems/Secondary Diagnoses: (1) Hypoxia Status: Chronic Immunizations: Have You Had Influenza Vaccine: No History of Tetanus Vaccine?: No History of Pneumococcal: No History of Hepatitis B Vaccine: No Medication Reconciliation New Medications: Prednisone (Prednisone) 10 Mg Tab 0 PO UD, #1 PKT STERAPRED 10MG 12 DAY Levofloxacin (Levofloxacin) 750 Mg Tab 750 MG PO DAILY@1300 for 5 Days, #5 TAB Continued Medications: Albuterol Sulfate (Proventil Hfa) 108 Mcg/Act Aer 2 PUFFS INH QID PRN for Wheezing Budesonide/Formoterol Fumarate (Symbicort 160/4.5 Inhaler ) Aero 2 PUFFS INH BID, INHALER Enoxaparin (Lovenox) 80 Mg/0.8 Ml Inj 80 MG SQ Q12H, SYR Fentanyl (Fentanyl) 75 Mcg/Hr Dis 75 MCG TD [id number] Finasteride (Finasteride) 5 Mg Tab 5 MG PO QAM for 14 Days, #14 TAB Morphine Sulfate (Morphine Sulfate) 15 Mg Tab 15 MG PO Q4H PRN for Pain, TAB Tamsulosin HCl (Tamsulosin HCl) 0.4 Mg Cap 0.4 MG PO HS for 30 Days, #30 CAP Discharge Exam Review of Systems: Constitutional: No fever, No chills, No sweats, No weight loss, No weakness ENT: No hearing loss, No unusual epistaxis, No nasal symptoms, No sore throat Respiratory: + cough, No sputum, No wheezing, No shortness of breath, No dyspnea on exertion, No dyspnea at rest Cardiovascular: No chest pain, No orthopnea, No PND, No edema Abdomen: No pain, No nausea, No vomiting, No diarrhea Musculoskeletal: No joint pain, No muscle pain, No swelling, No calf pain Genitourinary - Female: No dysuria, No urinary frequency, No urinary urgency , No urinary incontinence Neurologic: No memory loss, No paralysis, No weakness, No numbness/tingling Psychiatric: No depression symptoms, No anhedonism, No anxiety, No insomnia Endocrine: No fatigue, No excessive thirst, No excessive urination Integumentary: No rash, No itch Physical Exam: General Appearance: WD/WN, no apparent distress Eyes: normal inspection, PERRL, EOMI, sclerae normal Neck: supple, no adenopathy, thyroid normal, no JVD Respiratory/Chest: chest non-tender, no accessory muscle use, + decreased breath sounds, + wheezing Cardiovascular: regular rate, rhythm, no edema, no gallop, no JVD Abdomen / GI: normal bowel sounds, non tender, soft, no organomegaly 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: no motor/sensory deficits, alert, normal mood/affect , oriented x 3 Skin: normal color, warm/dry, no rash Lymphatic: no adenopathy Hospital Course Mr. Hagan is a 66 y/o male with PMHx of Metastatic Adenocarcinoma of Lung ( Liver and Bone), COPD, CAD S/P [place] and S/P Stents, PE (October 2016), hematuria, HLD , and Urinary Retention who presents to the ED c/o SOB and cold-like symptoms x 4 days. No PNA on CT, here with acute COPD exacerbation/acute bronchitis and pancytopenia Acute on Chronic Hypoxic Respiratory Failure 2/2 Acute COPD Exacerbation: Baseline O2 of 3 L, currently requiring 4-5LNC. Continues with wheezing, increased sputum production, remains afebrile. CT no PNA but has lung mets No events on tele - continue Cefepime 2 g IV Q12H and Levaquin 750 mg IV daily, DC on levaquin for 5 more days in addition to sterapred taper - continue Methylprednisolone 60 mg IV Q8H - continue Mucinex 1200 mg BID, start on tessalon perles as well -continue Duo nebs ANNE-MARIE and PRN with Symbicort 2 puffs BID -continue supplemental O2 and wean back to home O2 as able to Gross Hematuria/H/o urinary retention: Likely from Thrombocytopenia and Lovenox. Was seen by Urol and offered cystoscopy in past but declined. 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 No difficulty with urinary retention so far - continue to hold Lovenox given hematuria and thrombocytopenia -declines further Urology eval at this time -continue Flomax and finasteride -bladder scan prn Neutropenia and Pancytopenia 2/2 Chemotherapy: <o evidence of bleeding currently - Neutropenic precautions can be dced as resolved - s/p 1 unit PRBC transfusion on 04/01 - no plt transfusion for now as no active bleeding - continue to hold Lovenox - follow CBC with diff Metastatic Adenocarcinoma of Lung (Liver and Bone Mets): Follows with Dr. Kory Ray, has received XRT and currently on chemo - Pain management with Fentanyl patch 75 mcg Q72H and morphine 15 mg Q4H PRN for pain - Poor appetite due to chemotherapy - consult nutrition for dietary recommendations -d/w Oncology-plan is no more chemo for now due to repeated hospitalizations and low counts -f/u Oncology after dc CAD S/P [place] and S/P Stents: STABLE. 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 - Discussed risks of holding Lovenox treatment to include risk of pulmonary embolism that could ultimately lead to - patient plans to resume Lovenox when hematuria resolves - patient does have thrombocytopenia as wlel -resume Lovenox when plts improve and if remains without bleeding HLD: No current medications DVT Prophylaxis: SCDs - Hold chemical prophylaxis at this time due to thrombocytopenia and reported hematuria Code Status: FULL RESUSCITATION Total Time Spent: Greater than 30 minutes This includes examination of the patient, discharge planning, medication reconciliation, and communication with other providers. Discharge Instructions Please refer to the electronic Patient Visit Report (Discharge Instructions) for additional information. Additional Copies To Ann Olivas M.D.
== END 2017-04-04 12:22 | disposition home or self-care (01) | DRG 189 ==
LOC: C.EDB 11:16 → C.2T 15:13 → ENRESERV 15:36 → C.4E 04-01 18:39
PROVIDERS: ADMIT Hospitalist; ATTEND Hospitalist
DX: J96.21 Acute and chronic respiratory failure with hypoxia (principal); J44.0 Chronic obstructive pulmonary disease with (acute) lower respiratory infection; J44.1 Chronic obstructive pulmonary disease with (acute) exacerbation; C34.90 Malignant neoplasm of unspecified part of unspecified bronchus or lung; C78.7 Secondary malignant neoplasm of liver and intrahepatic bile duct; C79.51 Secondary malignant neoplasm of bone; D61.810 Antineoplastic chemotherapy induced pancytopenia; T45.515A Adverse effect of anticoagulants, initial encounter; J20.9 Acute bronchitis, unspecified; Z86.711 Personal history of pulmonary embolism; Z99.81 Dependence on supplemental oxygen; I25.10 Atherosclerotic heart disease of native coronary artery without angina pectoris; Z87.891 Personal history of nicotine dependence; I25.2 Old myocardial infarction; R31.9 Hematuria, unspecified; Y92.009 Unspecified place in unspecified non-institutional (private) residence as the place of occurrence of the external cause; Z92.3 Personal history of irradiation; Z79.01 Long term (current) use of anticoagulants

== ENCOUNTER 2017-04-15 06:34 | Inpatient (IN) | payer OTHER ==
[2017-04-15] VITALS (26 sets, daily range): BP systolic 86–130; BP diastolic 32–62; PULSE 57–113; TEMP 36.7–37.4; O2SAT 92–99; Ht 177.8 cm; Wt 82.9 kg
[~2017-04-15] VITALS: Ht 177.8 cm; Wt 82.9 kg
[~2017-04-15 06:34] MED LIST changes: -ACET-1311 PO; +ENOX80IN SQ; -FENT100D10 TOP; +FENT75DI2 TD; +LVQ750 PO; -ONDA8TAB6 PO; +PRED10TA PO
[2017-04-15] MEDS ORDERED: ALBUT/IPRATROP 3MG/0.5MG NEB 3 ML VIAL INH STA (07:07)
[2017-04-15] MEDS ORDERED: ACETAMINOPHEN 325 MG TAB PO STA (07:10)
[2017-04-15] MEDS ORDERED: SODIUM CHLORIDE 0.9% 250ML 250 ML IV STA (07:10)
[2017-04-15] MEDS ORDERED: SODIUM CHLORIDE 0.9% 1000ML 1,000 ML IV STA (07:10)
[2017-04-15] MEDS ORDERED: PIPERACILLIN/TAZOBACTAM 4.5 GM/100ML D5W IV STA (07:15)
[2017-04-15] MEDS ORDERED: VANCOMYCIN INJ 2,000 MG in SODIUM CHLORIDE 0.9% 500ML 500 ML IV STA (07:24)
--- NOTE | 2017-04-15 07:25 | EMERGENCY ROOM VISIT NOTE ---
History Report prepared by Deo: Pebbles Vaz Under the Supervision of: Dr. Ema Pond M.D. First contact with patient: 06:55 Chief Complaint: SHORTNESS OF BREATH Stated Complaint: OXYGEN LEVEL VERY LOW History of Present Illness The patient is a 66 year old male who presents to the Emergency Room with complaints of persistent difficulty breathing that began prior to arrival. The patient reports a history of metastatic lung cancer to his bone and liver. He additionally reports a history of COPD, 3 stents, DVTs, and PEs. The patient states that he is chronically on 3.5 liters of nasal cannula oxygen at home. He states that his pulse ox was in the 70s at home on the nasal cannula oxygen. The patient states that he has had difficulty catching his breath and chest pain. He denies any fever. The patient denies getting a flu shot this year. He states that he is on Lovenox shots. He states that is currently on antibiotics. Source of History: patient Onset: prior to arrival Position: other (global) Quality: other (difficulty breathing) Timing: other (persistent) Associated Symptoms: + chest pain, No fevers Review of Systems See HPI for pertinent positives & negatives. A total of 10 systems reviewed and were otherwise negative. Past Medical & Surgical Medical Problems: (1) Acute on chronic respiratory failure with hypoxia (2) Adenocarcinoma of unknown primary (3) COPD (chronic obstructive pulmonary disease) (4) Coronary artery disease (5) Hematuria (6) History of metastatic neoplastic disease (7) Hypoxia (8) Pancytopenia (9) Pneumonia (10) Pulmonary embolism, bilateral (11) Sepsis Surgical Problems: (1) History of total replacement of right hip Family History Cancer Social History Smoking Status: Former Smoker Drug Use: none Marital Status: in relationship Housing Status: lives with significant other Occupation Status: retired Current/Historical Medications Scheduled Budesonide/Formoterol Fumarate (Symbicort 160/4.5 Inhaler ), 2 PUFFS INH BID Enoxaparin (Lovenox), 80 MG SQ Q12H Fentanyl (Fentanyl), 75 MCG TD [id number] Finasteride (Finasteride), 5 MG PO QAM Levofloxacin (Levofloxacin), 750 MG PO DAILY@1300 Prednisone (Prednisone), 0 PO UD Tamsulosin HCl (Tamsulosin HCl), 0.4 MG PO HS Scheduled PRN Albuterol Sulfate (Proventil Hfa), 2 PUFFS INH QID PRN for Wheezing Ipratropium-Albuterol (Combivent Respimat), 1 PUFFS INH QID PRN for SOB/Wheezing Allergies Coded Allergies: No Known Allergies (Verified , 04/15/17) Physical Exam Vital Signs Date Time Temp Pulse Resp B/P (MAP) Pulse Ox O2 Delivery O2 Flow Rate FiO2 04/15/17 10:31 76 18 103/47 96 Nasal Cannula 4.0 04/15/17 10:12 73 04/15/17 09:57 105/46 04/15/17 09:45 99 Mask 6.0 04/15/17 09:41 04/15/17 09:36 82 15 96 Mask 6.0 04/15/17 09:31 95/37 04/15/17 09:06 83 18 99 Mask 6.0 04/15/17 09:01 109/42 04/15/17 08:36 85 17 94 Mask 6.0 04/15/17 08:31 37.1 84 16 109/47 04/15/17 08:19 79 13 98 Mask 6.0 04/15/17 08:14 97 Mask 04/15/17 08:09 97 Mask 04/15/17 08:04 91 15 95 Mask 6.0 04/15/17 08:01 103/36 04/15/17 07:34 99 18 96 Mask 6.0 04/15/17 07:32 116/47 04/15/17 07:04 89 12 97 Mask 6.0 04/15/17 07:01 111/54 04/15/17 06:53 78 22 111/55 96 Mask 6.0 04/15/17 06:53 96 Room Air 6.0 04/15/17 06:52 112/49 04/15/17 06:52 102 04/15/17 06:48 96 Mask 6.0 04/15/17 06:47 89 Nasal Cannula 4.0 04/15/17 06:41 37.8 110 28 96/57 74 Nasal Cannula 4.0 Physical Exam Vital signs reviewed. General: Chronically ill-appearing male, in no significant distress. HEENT: No scleral icterus, PERRLA, neck supple. Atraumatic. Cardiovascular: Regular rate and rhythm, no extra sounds. Pulmonary: Diffuse rhonchi throughout, moist cough. Abdomen: Soft, nontender, nondistended, positive bowel sounds. Musculoskeletal: Atraumatic, no peripheral edema. Neurologic: Patient awake alert and oriented x 3, full strength in all 4 extremities. Cranial nerves 2 through 12 grossly intact. Skin: Warm, dry, no rash. Cyanotic to lips and ears. Medical Decision & Procedures ER Provider Diagnostic Interpretation: X-ray results as stated below per interpretation by me and the radiologist: CHEST ONE VIEW PORTABLE CLINICAL HISTORY: 66 years-old Male presenting with SOB, COPD, Lung CA. TECHNIQUE: Portable upright AP view of the chest was obtained. COMPARISON: 03/31/2017. FINDINGS: Left subclavian Mediport has been accessed and terminates in the lower SVC. Atherosclerosis of the aortic arch. Cardiac silhouette mildly enlarged allowing for AP technique. Prominence of the main pulmonary artery. Prominence of the right hilum consistent with known right hilar mass. Multifocal nodular and patchy opacities in the lungs bilaterally consistent with known pulmonary metastases, however, these have overall increased in prominence most pronounced in the left mid to lower lung. Trace pleural effusions may be present. No pneumothorax. Degenerative changes of the thoracic spine. Known osseous metastatic disease better demonstrated on prior CT from 03/31/2017. Upper abdomen normal. IMPRESSION: 1. Interval increase in nodular and patchy bilateral pulmonary opacities most pronounced in the left mid and lower lung. This could represent progression of known pulmonary metastatic disease versus a superimposed infectious etiology. 2. Right hilar mass. 3. Evidence of pulmonary hypertension. Electronically signed by: Db Sibley M.D. 04/15/2017 7:34 AM Dictated Date/Time: 04/15/2017 7:30 AM Laboratory Results Test 04/15/17 07:05 04/15/17 07:12 04/15/17 07:13 04/15/17 07:29 RDW Standard Deviation 78.2 fL (36.4-46.3) RDW Coefficient of Variation 20.0 % (11.5-14.5) White Blood Count 14.39 K/uL (4.8-10.8) Red Blood Count 2.50 M/uL (4.7-6.1) Hemoglobin 8.7 g/dL (14.0-18.0) Hematocrit 27.2 % (42-52) Mean Corpuscular Volume 108.8 fL (80-100) Mean Corpuscular Hemoglobin 34.8 pg (25-34) Mean Corpuscular Hemoglobin Concent 32.0 g/dl (32-36) Platelet Count 56 K/uL (130-400) Mean Platelet Volume 9.9 fL (7.4-10.4) Neutrophils (%) (Auto) 87.6 % Lymphocytes (%) (Auto) 4.0 % Monocytes (%) (Auto) 7.9 % Eosinophils (%) (Auto) 0.1 % Basophils (%) (Auto) 0.0 % Neutrophils # (Auto) 12.61 K/uL (1.4-6.5) Lymphocytes # (Auto) 0.57 K/uL (1.2-3.4) Monocytes # (Auto) 1.13 K/uL (0.11-0.59) Eosinophils # (Auto) 0.02 K/uL (0-0.5) Basophils # (Auto) 0.00 K/uL (0-0.2) Immature Granulocyte % (Auto) 0.4 % Immature Granulocyte # (Auto) 0.06 K/uL (0.00-0.02) Anisocytosis PRESENT Prothrombin Time 11.7 SECONDS (9.0-12.0) Prothromb Time International Ratio 1.1 (0.9-1.1) Activated Partial Thromboplast Time 36.3 SECONDS (21.0-31.0) Partial Thromboplastin Ratio 1.4 Total Bilirubin 0.6 mg/dl (0.2-1) Direct Bilirubin 0.1 mg/dl (0-0.2) Aspartate Amino Transf (AST/SGOT) 9 U/L (15-37) Alanine Aminotransferase (ALT/SGPT) 16 U/L (12-78) Alkaline Phosphatase 81 U/L (45-117) Total Creatine Kinase 23 U/L (39-308) Creatine Kinase MB 0.9 ng/ml (0.5-3.6) Creatine Kinase MB Ratio 3.9 (0-3.0) Total Protein 6.2 gm/dl (6.4-8.2) Albumin 2.7 gm/dl (3.4-5.0) Bedside Lactic Acid Venous 0.79 mmol/L (0.90-1.70) Bedside Troponin I < 0.030 ng/ml (0-0.045) Influenza Type A (RT-PCR) Neg for Influ A (NEG) Influenza Type B (RT-PCR) Neg for Influ B (NEG) Laboratory results per my review. Medications Administered Medications (Trade) Dose Ordered Sig/Abbi Route Start Time Stop Time Status Last Admin Dose Admin Albuterol/ Ipratropium (Duoneb) 3 ml NOW STAT INH 04/15/17 07:07 04/15/17 07:10 DC 04/15/17 07:29 3 ML Acetaminophen (Tylenol Tab) 650 mg NOW STAT PO 04/15/17 07:10 04/15/17 07:11 DC 04/15/17 07:28 650 MG Sodium Chloride 250 ml @ 999 mls/hr Q16M STAT IV 04/15/17 07:10 04/15/17 07:25 DC 04/15/17 07:29 999 MLS/HR Sodium Chloride 1,000 ml @ 125 mls/hr Q8H STAT IV 04/15/17 07:10 04/15/17 13:04 DC 04/15/17 07:29 125 MLS/HR Piperacillin Sod/ Tazobactam Sod (Zosyn Iv) 4.5 gm NOW STAT IV 04/15/17 07:15 04/15/17 07:17 DC 04/15/17 07:29 4.5 GM Vancomycin HCl 2000 mg/Sodium Chloride 540 ml @ 200 mls/hr ONE STAT IV 04/15/17 07:24 04/15/17 10:05 DC 04/15/17 08:01 200 MLS/HR Sodium Chloride 500 ml @ 999 mls/hr Q31M STAT IV 04/15/17 09:42 04/15/17 10:12 DC 04/15/17 10:00 999 MLS/HR ECG Indication: SOB/dyspnea Rate (beats per minute): 100 Rhythm: sinus rhythm Findings: nonspecific-ST abn (Anterolateral), other (fusion complex vs PAC, RVH ) Comparison ECG Date: 04/01/17 Change: When compared to EKG done on 04/01/17, ST changes in inferior and anterior leads are not significantly changed. ED Course 0713: Past medical records reviewed. The patient was evaluated in room A2. A complete history and physical examination was performed. 0707: Ordered DuoNeb 3 ml INH. 0710: Ordered Sodium Chloride 1000 ml @ 125 mls/hr IV, Sodium Chloride 250 ml @ 999 mls/hr IV, Tylenol Tab 650 mg PO. 15: Ordered Zosyn IV 4.5 gm IV. 24: Ordered Vancomycin HCl 2000 mg/Sodium Chloride 540 ml @ 200 mls/hr IV. 44: I discussed the patient's case with SERGIO Joseph. He is going to evaluate the patient for further treatment. 0950: I reevaluated the patient and he is resting comfortably. I discussed the test results with him and I discussed the treatment plan. He verbalized complete understanding and agreement. He is going to be evaluated for further treatment. Medical Decision Differential diagnosis: Etiologies such as infections, reactive airway disease, pneumonia, pneumothorax , COPD, CHF, cardiac ischemia, pulmonary embolism, musculoskeletal, gastrointestinal, as well as others were entertained. This patient was evaluated and appeared to be in no significant distress. IV access was obtained and laboratory work was drawn. Patient was given a DuoNeb treatment. Chest x-ray was performed and reveals changes as described above. Patient does have metastatic lung cancer therefore it is difficult to interpret. Patient is noted to have a low-grade temp, blood cultures were performed. Lactic acid is normal. He was hydrated with normal saline solution due to a relative hypotension. He was given IV Zosyn and vancomycin as he is currently taking Levaquin. There is concern over a postobstructive pneumonia. He did seem to feel improved after the above interventions. Case was discussed with the hospitalist service will evaluate the patient for further management. Medication Reconcilliation Current Medication List: was personally reviewed by me Blood Pressure Screening Patient's blood pressure: Normal blood pressure Blood pressure disposition: Did not require urgent referral Consults Time Called: [phone] Consulting Physician: SERGIO Joseph Returned Call: [phone] I discussed the patient's case with SREGIO Joseph. He is going to evaluate the patient for further treatment. Impression Primary Impression: Pneumonia Additional Impression: Hypoxia Scribe Attestation The scribe's documentation has been prepared under my direction and personally reviewed by me in its entirety. I confirm that the note above accurately reflects all work, treatment, procedures, and medical decision making performed by me. Departure Information Dispostion Being Evaluated By Hospitalist Referrals Ann Olivas M.D. (PCP) Problem Qualifiers
[2017-04-15 07:27] LABS: HEMATOCRIT 27.2 % (42-52); MEAN CELL VOLUME 108.8 fL (80-100); MEAN CORPUSCULAR HEMOGLOBIN 34.8 pg (25-34); WHITE BLOOD COUNT 14.39 K/uL (4.8-10.8)
--- NOTE | 2017-04-15 07:36 | DIAGNOSTIC IMAGING REPORT ---
CHEST ONE VIEW PORTABLE CLINICAL HISTORY: 66 years-old Male presenting with SOB, COPD, Lung CA. TECHNIQUE: Portable upright AP view of the chest was obtained. COMPARISON: 03/31/2017. FINDINGS: Left subclavian Mediport has been accessed and terminates in the lower SVC. Atherosclerosis of the aortic arch. Cardiac silhouette mildly enlarged allowing for AP technique. Prominence of the main pulmonary artery. Prominence of the right hilum consistent with known right hilar mass. Multifocal nodular and patchy opacities in the lungs bilaterally consistent with known pulmonary metastases, however, these have overall increased in prominence most pronounced in the left mid to lower lung. Trace pleural effusions may be present. No pneumothorax. Degenerative changes of the thoracic spine. Known osseous metastatic disease better demonstrated on prior CT from 03/31/2017. Upper abdomen normal. IMPRESSION: 1. Interval increase in nodular and patchy bilateral pulmonary opacities most pronounced in the left mid and lower lung. This could represent progression of known pulmonary metastatic disease versus a superimposed infectious etiology. 2. Right hilar mass. 3. Evidence of pulmonary hypertension. Electronically signed by: Db Sibley M.D. 04/15/2017 7:34 AM Dictated Date/Time: 04/15/2017 7:30 AM
[2017-04-15 07:44] LABS: ALT/SGPT 16 U/L (12-78); BLOOD UREA NITROGEN 17 mg/dl (7-18); BUN/CREATININE RATIO 47.8 (10-20); CALCIUM 8.4 mg/dl (8.5-10.1); CARBON DIOXIDE 40 mmol/L (21-32); CHLORIDE 91 mmol/L (98-107); CREATININE 0.35 mg/dl (0.60-1.40); GLUCOSE 96 mg/dl (70-99); MAGNESIUM 1.4 mg/dl (1.8-2.4); SODIUM 135 mmol/L (136-145)
[2017-04-15 07:47] LABS: MEAN PLATELET VOLUME 9.9 fL (7.4-10.4); PLATELET COUNT 56 K/uL (130-400)
[2017-04-15 07:49] LABS: ALKALINE PHOSPHATASE 81 U/L (45-117); AST/SGOT 9 U/L (15-37); CKMB/CK RATIO 3.9 (0-3.0)
[2017-04-15 07:50] LABS: ANISOCYTOSIS PRESENT; COMPLETE YES; EOS % 0.1 %; IG% 0.4 %; LYMPH ABS # 0.57 K/uL (1.2-3.4); MONO % 7.9 %; NEUT % 87.6 %
[2017-04-15 07:52] LABS: INR 1.1 (0.9-1.1); PARTIAL THROMBOPLASTIN RATIO 1.4; PROTHROMBIN TIME (PATIENT) 11.7 SECONDS (9.0-12.0)
[2017-04-15] MEDS ORDERED: SODIUM CHLORIDE 0.9% 500ML 500 ML IV STA (09:42)
[2017-04-15 09:44] LABS: INFLUENZA A PCR Neg for Influ A (NEG); INFLUENZA B PCR Neg for Influ B (NEG)
[2017-04-15] MEDS ORDERED: IPRA1AER2 INH (10:51)
[2017-04-15] MEDS ORDERED: MAGNESIUM HYDROXIDE SUSP 30 ML UDC PO PRN (11:00)
[2017-04-15] MEDS ORDERED: LEVOFLOXACIN / D5W 750 MG in PREMIXED IN D5W 150 ML IV SCH (11:00)
[2017-04-15] MEDS ORDERED: ONDANSETRON INJ 2 MG/ML 2 ML VIAL IV PRN (11:00)
[2017-04-15] MEDS ORDERED: ACETAMINOPHEN 325 MG TAB PO PRN (11:00)
[2017-04-15] MEDS ORDERED: ALUMINUM/MAGNESIUM/SIMETH (MAALOX MAX) 30 ML UDC PO PRN (11:00)
[2017-04-15] MEDS ORDERED: POLYETHYLENE (MIRALAX) 17 GM PACK PO PRN (11:00)
--- NOTE | 2017-04-15 11:27 | History and Physical ---
History & Physical Date & Time of Service: Apr 15, 2017 at 10:59 Chief Complaint: Oxygen Level Very Low Primary Care Physician: Ann Olivas M.D. History of Present Illness Source: patient, spouse ( at bedside), clinic records, hospital records This is a 66 y/o male with a history of metastatic lung cancer to liver and bone , COPD, CAD, h/o NC s/p stents x3, HLD, h/o PE, and h/o urinary retention who presented to the ED on 04/15 with worsening shortness of breath and hypoxia. The patient was recently admitted to [facility] on 03/31 with acute on chronic respiratory. He was diagnosed with a COPD exacerbation and discharged with Prednisone and Levaquin, which the patient is still taking now. The patient's breathing had been feeling better on discharge, but starting around 04/11 he began to again develop worsening shortness of breath and dyspnea on exertion. 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 The patient had previously been on 3L chronically, but last admission this was increased to 4L. Despite the oxygen, the patient's O2 sats at home have been fluctuating between 64 and 92%. The patient denies cough but does admit to wheezing as well as generalized weakness and fatigue. The patient states he felt feverish on arrival with alternating chills and sweats. The patient denies chest pain, palpitations, claudication, cough, nausea, vomiting, abdominal pain, dysuria, hematuria, urinary retention, paralysis, weakness, numbness and tingling. Past Medical/Surgical History Medical Problems: (1) Adenocarcinoma of unknown primary Permanent Comment: Metastatic disease to bone, liver, lungs Status post completion of radiation therapy to T5, right second and third ribs. Completed 11/14/2016. He received 3000 cGy. Status: Chronic (2) COPD (chronic obstructive pulmonary disease) Status: Chronic (3) Coronary artery disease Status: Chronic (4) Hypoxia Status: Chronic (5) Pulmonary embolism, bilateral Status: Chronic (6) Sepsis Status: Resolved H/o NC s/p stents x 3 HLD Family History CABG Cancer Social History Smoking Status: Former Smoker (quit 2014) Smokeless Tobacco Use: No Alcohol Use: none Drug Use: none Marital Status: Housing status: lives with significant other Occupational Status: retired Immunizations History of Influenza Vaccine: No History of Tetanus Vaccine?: No History of Pneumococcal: No History of Hepatitis B Vaccine: No Multi-Drug Resistant Organisms History of MDRO: No Allergies Coded Allergies: No Known Allergies (Verified , 04/15/17) Home Medications Scheduled Budesonide/Formoterol Fumarate (Symbicort 160/4.5 Inhaler ), 2 PUFFS INH BID Enoxaparin (Lovenox), 80 MG SQ Q12H Fentanyl (Fentanyl), 75 MCG TD [id number] Finasteride (Finasteride), 5 MG PO QAM Levofloxacin (Levofloxacin), 750 MG PO DAILY@1300 Prednisone (Prednisone), 0 PO UD Tamsulosin HCl (Tamsulosin HCl), 0.4 MG PO HS Scheduled PRN Albuterol Sulfate (Proventil Hfa), 2 PUFFS INH QID PRN for Wheezing Ipratropium-Albuterol (Combivent Respimat), 1 PUFFS INH QID PRN for SOB/Wheezing Review of Systems Constitutional: +Fever, chills, sweats. Trouble sleeping Eyes: No worsening of vision, No eye pain, No diplopia ENT: No hearing loss, No nasal symptoms, No trouble swallowing Respiratory: +Wheezing, SOB, TSE. No cough Cardiovascular: No chest pain, No claudication, No palpitations Abdomen: No pain, No nausea, No vomiting Musculoskeletal: No joint pain, No muscle pain, No swelling Genitourinary - Male: No dysuria, No urinary retention, No hematuria Neurologic: +Confusion. No paralysis, No weakness, No numbness/tingling Integumentary: No rash, No itch, No color change Physical Exam Vital Signs Date Time Temp Pulse Resp B/P (MAP) Pulse Ox O2 Delivery O2 Flow Rate FiO2 04/15/17 10:12 73 04/15/17 09:57 105/46 04/15/17 09:45 99 Mask 6.0 04/15/17 09:41 04/15/17 09:36 82 15 96 Mask 6.0 04/15/17 09:31 95/37 04/15/17 09:06 83 18 99 Mask 6.0 04/15/17 09:01 109/42 04/15/17 08:36 85 17 94 Mask 6.0 04/15/17 08:31 37.1 84 16 109/47 04/15/17 08:19 79 13 98 Mask 6.0 04/15/17 08:14 97 Mask 04/15/17 08:09 97 Mask 04/15/17 08:04 91 15 95 Mask 6.0 04/15/17 08:01 103/36 04/15/17 07:34 99 18 96 Mask 6.0 04/15/17 07:32 116/47 04/15/17 07:04 89 12 97 Mask 6.0 04/15/17 07:01 111/54 04/15/17 06:53 78 22 111/55 96 Mask 6.0 04/15/17 06:53 96 Room Air 6.0 04/15/17 06:52 112/49 04/15/17 06:52 102 04/15/17 06:48 96 Mask 6.0 04/15/17 06:47 89 Nasal Cannula 4.0 04/15/17 06:41 37.8 110 28 96/57 74 Nasal Cannula 4.0 General appearance: +Appears fatigued, chronically ill. Well-developed, well- nourished, no apparent distress Head: Normocephalic, atraumatic Eyes: Normal inspection, PERRL, EOMI ENT: Normal ENT inspection, hearing grossly normal, pharynx normal Neck: Supple, no JVD, trachea midline Respiratory/Chest: +Wheezing heard anteriorly but not posteriorly. Decreased breath sounds. Fine crackles in bases. No respiratory distress Cardiovascular: Regular rate & rhythm, no gallop, no murmur Abdomen/GI: Normal bowel sounds, non-tender, soft Extremities/Musculoskeletal: Normal inspection, no calf tenderness, no pedal edema Neurological/Psych: Alert, normal mood/affect, oriented x 3 Skin: +Damp, pt broke sweats few minutes prior to my exam. Normal color, warm/ dry, no rash Diagnostics Laboratory Results Results Past 24 Hours Test 04/15/17 07:05 04/15/17 07:12 04/15/17 07:13 04/15/17 07:29 Range/Units White Blood Count 14.39 4.8-10.8 K/uL Red Blood Count 2.50 4.7-6.1 M/uL Hemoglobin 8.7 14.0-18.0 g/dL Hematocrit 27.2 42-52 % Mean Corpuscular Volume 108.8 80-100 fL Mean Corpuscular Hemoglobin 34.8 25-34 pg Mean Corpuscular Hemoglobin Concent 32.0 32-36 g/dl Platelet Count 56 130-400 K/uL Mean Platelet Volume 9.9 7.4-10.4 fL Neutrophils (%) (Auto) 87.6 % Lymphocytes (%) (Auto) 4.0 % Monocytes (%) (Auto) 7.9 % Eosinophils (%) (Auto) 0.1 % Basophils (%) (Auto) 0.0 % Neutrophils # (Auto) 12.61 1.4-6.5 K/uL Lymphocytes # (Auto) 0.57 1.2-3.4 K/uL Monocytes # (Auto) 1.13 0.11-0.59 K/uL Eosinophils # (Auto) 0.02 0-0.5 K/uL Basophils # (Auto) 0.00 0-0.2 K/uL RDW Standard Deviation 78.2 36.4-46.3 fL RDW Coefficient of Variation 20.0 11.5-14.5 % Immature Granulocyte % (Auto) 0.4 % Immature Granulocyte # (Auto) 0.06 0.00-0.02 K/uL Anisocytosis PRESENT Prothrombin Time 11.7 9.0-12.0 SECONDS Prothromb Time International Ratio 1.1 0.9-1.1 Activated Partial Thromboplast Time 36.3 21.0-31.0 SECONDS Partial Thromboplastin Ratio 1.4 Sodium Level 135 136-145 mmol/L Potassium Level 4.0 3.5-5.1 mmol/L Chloride Level 91 98-107 mmol/L Carbon Dioxide Level 40 21-32 mmol/L Anion Gap 4.0 3-11 mmol/L Blood Urea Nitrogen 17 7-18 mg/dl Creatinine 0.35 0.60-1.40 mg/dl Est Creatinine Clear Calc Drug Dose 214.4 ml/min Estimated GFR () > 150.0 Estimated GFR (Non- 130.8 BUN/Creatinine Ratio 47.8 10-20 Random Glucose 96 70-99 mg/dl Calcium Level 8.4 8.5-10.1 mg/dl Magnesium Level 1.4 1.8-2.4 mg/dl Total Bilirubin 0.6 0.2-1 mg/dl Direct Bilirubin 0.1 0-0.2 mg/dl Aspartate Amino Transf (AST/SGOT) 9 15-37 U/L Alanine Aminotransferase (ALT/SGPT) 16 12-78 U/L Alkaline Phosphatase 81 45-117 U/L Total Creatine Kinase 23 39-308 U/L Creatine Kinase MB 0.9 0.5-3.6 ng/ml Creatine Kinase MB Ratio 3.9 0-3.0 Total Protein 6.2 6.4-8.2 gm/dl Albumin 2.7 3.4-5.0 gm/dl Bedside Lactic Acid Venous 0.79 0.90-1.70 mmol/L Bedside Troponin I < 0.030 0-0.045 ng/ml Influenza Type A (RT-PCR) Neg for Influ A NEG Influenza Type B (RT-PCR) Neg for Influ B NEG Microbiology Results 04/15/17 Blood Culture, Received Pending 04/15/17 Blood Culture, Received Pending Diagnostic Radiology Reviewed the following studies and agree with interpretation as follows: CHEST ONE VIEW PORTABLE CLINICAL HISTORY: 66 years-old Male presenting with SOB, COPD, Lung CA. TECHNIQUE: Portable upright AP view of the chest was obtained. COMPARISON: 03/31/2017. FINDINGS: Left subclavian Mediport has been accessed and terminates in the lower SVC. Atherosclerosis of the aortic arch. Cardiac silhouette mildly enlarged allowing for AP technique. Prominence of the main pulmonary artery. Prominence of the right hilum consistent with known right hilar mass. Multifocal nodular and patchy opacities in the lungs bilaterally consistent with known pulmonary metastases, however, these have overall increased in prominence most pronounced in the left mid to lower lung. Trace pleural effusions may be present. No pneumothorax. Degenerative changes of the thoracic spine. Known osseous metastatic disease better demonstrated on prior CT from 03/31/2017. Upper abdomen normal. IMPRESSION: 1. Interval increase in nodular and patchy bilateral pulmonary opacities most pronounced in the left mid and lower lung. This could represent progression of known pulmonary metastatic disease versus a superimposed infectious etiology. 2. Right hilar mass. 3. Evidence of pulmonary hypertension. EKG Reviewed EKG and agree with interpretation as follows: 100 bpm, sinus rhythm with fusion complexes, anterior TWI Impression Assessment and Plan 66 y/o male with a history of metastatic lung cancer to liver and bone, COPD, CAD, h/o NC s/p stents x3, HLD, h/o PE, and h/o urinary retention who presented to the ED on 04/15 with worsening shortness of breath and hypoxia. Pt with low grade temp of 37.8 on arrival with chills and sweats. Pt also tachycardic, tachypneic and hypotensive on arrival and hypoxic with pulse ox of 74% on 4L. Temperature improved with Tylenol in ED. Pt also received total of 1.25L NSS boluses in ED and BP improving. No longer tachycardic. CXR shows left PNA vs progressive of metastatic lung disease. EKG with anterior TWI, pt denies CP and trop negative. WBC 14.39. POC lactic acid negative. Sepsis/septic shock secondary to HCAP -Admit to telemetry -O2 by protocol -Check ABG, may need BiPAP if hypercarbic -Blood cultures pending -Vancomycin and Zosyn IV. Hold off on Levaquin as pt has been taking full course outpt -DuoNebs QIDR and q2h prn SOB/wheezing -NSS at 100 cc/hr -Pt remains hypotensive despite receiving around 3L NSS. Will transfer to ICU and start Levophed -Recently on Prednisone. Start stress dose steroids hydrocortisone 100 mg IV q8h Hypomagnesemia -Magnesium 1.4 on admission -Mg sulfate 1 gm IV x 1 now Metastatic lung cancer to liver and bone, anemia -Check noncontrast head CT to r/o brain mets as cause of recent confusion -Hgb 8.7 on arrival, around baseline -Finished last chemo about 3 weeks ago, currently no active tx -Continue fentanyl patch 75 mcg TD q72h COPD--no acute exacerbation -Hold off on steroids for now -Nebs as above -Continue Symbicort BID CAD, h/o NC s/p stents x 3, HLD--stable -TWI on EKG but denies CP -Trend troponin q8h x 3, first negative H/o PE -Continue Lovenox 80 mg SC q12h H/o urinary retention -Continue Proscar 5 mg PO qd and Flomax 0.4 mg PO hs DVT prophylaxis -Enoxaparin 80 mg SC q12h -VIGNESH Broderick Code Status -Level I, FULL RESUSCITATION STATUS Level of Care Telemetry Advanced Directives Existing Living Will: No Existing 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 Y/N: Yes Risk Level: High Given or contraindicated: Enoxaparin (Lovenox)SQ, T.E.D. Stockings, SCD's Note Attending Admission note & attestation: Pt seen/examined, chart reviewed, care plan d/w DANETTE Dalton. I agree w/ the thurman components of her documentation. 66yo male with chronic hypoxic/hypercarbic respiratory failure on home O2, COPD , stage 4 lung cancer with extensive metastatic disease (bones, liver, etc), and DVT/PE on lovenox who presented with worsening dyspnea, cough, wheezing, poor appetite, fatigue, and fever/chills. At presentation today had mildly low BP, borderline fever of 37.8, and chest x-ray showing probable pneumonia with likely progression of lung ca. Received 30cc/kg fluid bolus in ER along with blood cx's/broad-spectrum IV antibiotic therapy. During my assessment on the telemetry unit his SBP was about 110 and he was eating lunch. However, over the course of the early afternoon - despite ongoing hydration - his systolic BPs were 80s/low 90s at best. Additional fluid bolus was given for such. In light of ongoing hypotension presumably from septic shock we contacted the ICU and initiated ICU status with institution of pressors & IV hydrocortisone. PMH, PSH, allergies, meds, sochx, famhx, ros - reviewed vitals - hypotensive, HRs nl, afebrile now, RR nl, O2 sats low 90s on supplemental NC O2 gen - chronically ill appearing, NAD, ashen color neck - no JVD mouth - MMM heart - RRR, s1, s2 lungs - crackles b/l, worse on right, with decreased BS bases, no respiratory distress abd - soft, NT, ND, BS+ ext - no edema, pulses 2+ b/l labs - WBC 14 Hb 8.7 platelets 50s Cr 0.3 mag 1.4 trop 0 alb 2.7 cxr - right hilar mass, b/l infiltrates lactate normal A/P: 1. septic shock - likely source is pneumonia. Cannot rule out element of adrenal insufficiency contributing to shock. 2. acute/chronic hypoxic/hypercarbic resp failure - acute component already better after Rx in the ER. 3. anemia of chronic disease. 4. thrombocytopenia - chronic. 5. severe protein calorie malnutrition with weight loss of 40 pounds in the last few months. 6. COPD with probable exacerbation. 7. stage 4 lung cancer - progressive. 8. h/o DVT/PE on chronic lovenox Rx. change tele status to ICU status. start levophed - titrate to keep MAP>65. Hydrocortisone 100mg IV q8h. Cortisol level wouldn't be helpful since he was just on steroids in the last few weeks. recheck lactate. replace mag. u/a, urine cx. follow cx's. sputum cx if able. broad-spectrum IV abx (cefepime/vanco for now); defer on levaquin - just completed full course of such prior to admission. copious hydration. care d/w DANETTE Domínguez and DANETTE Javier (ICU). critical care time about 75 minutes. pt is level 1 full code - in light of advanced stage 4 lung ca and progressive health issues need to address Awais Griffin MD
[2017-04-15 11:31] LABS: ARTERIAL BLD GAS O2 SATURATION 94.4 % (90-95); ARTERIAL BLOOD GAS BASE EXCESS 12.7 mEq/L (-9-1.8); ARTERIAL BLOOD GAS HCO3 40 mmol/L (19-24); ARTERIAL BLOOD GAS PO2 86 mm/Hg (80-95); ARTERIAL BLOOD GAS pH 7.36 (7.35-7.45)
[2017-04-15 11:32] LABS: ALLEN TEST POS (POS); O2 ADMINISTRATION 6 L
[2017-04-15] MEDS: ALBUT/IPRATROP 3MG/0.5MG NEB 3 ML VIAL INH SCH ×3 (12:00→19:07)
[2017-04-15] MEDS ORDERED: PIPERACILL/TAZOBAC IV 3.375 GM in DEXTROSE 5% 100ML 100 ML IV SCH (12:00)
[2017-04-15] MEDS ORDERED: VANCOMYCIN CONSULT ACTIVE PRN (12:45)
[2017-04-15] MEDS ORDERED: CEFEPIME CONSULT ACTIVE PRN ×2 (12:45)
[2017-04-15] MEDS: FENTANYL PATCH REMOVE & WASTE SCH (13:29)
[2017-04-15] MEDS ORDERED: MAGNESIUM SULFATE 1GM / D5W 1 GM in PREMIXED IN D5W 100 ML IV ONE (13:30)
[2017-04-15] MEDS: SODIUM CHLORIDE 0.9% 1000ML 1,000 ML IV SCH ×2 (13:58→16:36)
[2017-04-15] MEDS: FENTANYL 75 MCG/HR TDSY TD SCH (13:59)
[2017-04-15] MEDS ORDERED: SODIUM CHLORIDE 0.9% 1000ML 1,000 ML IV SCH (14:00)
[2017-04-15] MEDS ORDERED: CEFEPIME IV 2,000 MG in SYRINGE 7.5 ML IV STA (14:17)
--- NOTE | 2017-04-15 14:50 | Pharmacy Progress Note ---
Pharmacy Abx Dose Short Note Date of Service Apr 15, 2017. Assessment & Plan Assessment 66 year old male receiving Vancomycin/cefepime for treatment of HAP. Unsure is serum creatinine is falsely low. Will get a level early to ensure this dose isn' t overshooting. Day # 05/14 of antimicrobial therapy. Plan Vancomycin * 2000mg load given in ED * Initiate dose of 1000 mg IV every 8 hours * Goal trough level for: 15 to 20 mcg/mL * Trough or random level ordered for: 04/16/17 @0730 Pharmacy will continue to follow and will adjust dose/frequency as necessary. Thank you.
[2017-04-15] MEDS: CHECK FENTANYL PATCH PLACEMENT SCH ×2 (15:32→23:33)
[2017-04-15] MEDS: ENOXAPARIN 80 MG/0.8 ML SYR SQ SCH ×2 (15:51→20:32)
[2017-04-15] MEDS ORDERED: NOREPINEPHRINE BIT INJ 8 MG in DEXTROSE 5% 500ML 500 ML IV PRN (15:56)
[2017-04-15] MEDS ORDERED: HYDROCORTISONE IV 100 MG in SYRINGE 0 ML IV SCH ×2 (16:00→16:15)
[2017-04-15] MEDS: VANCOMYCIN INJ 1,000 MG in SODIUM CHLORIDE 0.9% 250ML 250 ML IV SCH ×2 (16:00→23:29)
[2017-04-15 16:58] LABS: C-REACTIVE PROTEIN 9.69 mg/dl (0-0.29); MAGNESIUM 1.6 mg/dl (1.8-2.4)
[2017-04-15] MEDS: MAGNESIUM SULFATE 1GM / D5W 1 GM in PREMIXED IN D5W 100 ML IV SCH ×2 (17:19→18:22)
[2017-04-15 17:26] LABS: URINE APPEARANCE CLEAR (CLEAR); URINE BILIRUBIN NEG (NEG); URINE COLOR YELLOW; URINE NITRITE NEG (NEG); UROBILINOGEN NEG (NEG)
[2017-04-15 17:29] LABS: MANUAL MICROSCOPIC REQUIRED? NO; REVIEW REQ? NO
[2017-04-15] MEDS: BUDESONIDE/FORMOTEROL FUMARATE 160/4.5 60 PUFFS/INHALER INH SCH (20:32)
[2017-04-15] MEDS: TAMSULOSIN HCL 0.4 MG CAP PO SCH (20:32)
[2017-04-15] MEDS ORDERED: VANCOMYCIN INJ 1,000 MG in SODIUM CHLORIDE 0.9% 250ML 250 ML IV SCH (21:00)
--- NOTE | 2017-04-15 21:36 | Critical Care Consultation ---
Critical Care Consultation Date of Consultation: Apr 15, 2017. Attending Physician: Awais Griffin MD Reason for Consultation: Sepsis. History of Present Illness Dear Dr. Griffin: Thank you for your kind referral of Mr. Camp to critical care service. This is 66-year-old gentleman with a history of severe COPD, home O2 dependent, Gold level III, history of non-small cell lung CA stage IV status post chemotherapy and SBRT, has been in his usual status of health however his course was complicated with sepsis after each round of chemotherapy. The patient was at home when he noted increasing shortness of breath and cough with sputum production. The patient presented to the hospital where he was started empirically on broad-spectrum antibiotic. The patient blood pressure was borderline and was admitted to the ICU started on norepinephrine drip. Patient has increasing shortness of breath accompanied with wheezing. His exercise capacity less than 50 feet. He denies using a walker but he uses oxygen all the time. At home he measured his oxygen level which showed 70% on 3 L and did not respond to increasing his flow rates. Benign to review the patient, he denies any dizziness, he is mentating very well , he denies any chest pain, no nausea or vomiting reported recently. He does have purulent looking sputum. No increased swelling in his ankles. And no weight loss. The rest of his review of system was unremarkable. Past Medical/Surgical History As above, in addition the patient has history of PE, coronary artery disease status post stent placement recently. Family History CABG Cancer Social History Smoking Status: Former Smoker (quit 2014) Smokeless Tobacco Use: No Alcohol Use: none Drug Use: none Marital Status: Housing Status: lives with significant other Occupation Status: retired Allergies Coded Allergies: No Known Allergies (Verified , 04/15/17) Home Medications Scheduled Budesonide/Formoterol Fumarate (Symbicort 160/4.5 Inhaler ), 2 PUFFS INH BID Enoxaparin (Lovenox), 80 MG SQ Q12H Fentanyl (Fentanyl), 75 MCG TD [id number] Finasteride (Finasteride), 5 MG PO QAM Levofloxacin (Levofloxacin), 750 MG PO DAILY@1300 Prednisone (Prednisone), 0 PO UD Tamsulosin HCl (Tamsulosin HCl), 0.4 MG PO HS Scheduled PRN Albuterol Sulfate (Proventil Hfa), 2 PUFFS INH QID PRN for Wheezing Ipratropium-Albuterol (Combivent Respimat), 1 PUFFS INH QID PRN for SOB/Wheezing Current Inpatient Medications Current Inpatient Medications Medications (Trade) Dose Ordered Sig/Abbi Route Start Time Stop Time Status Last Admin Dose Admin Acetaminophen (Tylenol Tab) 650 mg Q4H PRN PO 04/15/17 11:00 05/15/17 10:59 Al Hydrox/Mg Hydrox/Simethicone (Maalox Max Susp) 15 ml Q4H PRN PO 04/15/17 11:00 05/15/17 10:59 Magnesium Hydroxide (Milk Of Magnesia Susp) 30 ml Q12H PRN PO 04/15/17 11:00 05/15/17 10:59 Ondansetron HCl (Zofran Inj) 4 mg Q6H PRN IV 04/15/17 11:00 05/15/17 10:59 Polyethylene (Miralax Powder Packet) 17 gm DAILY PRN PO 04/15/17 11:00 05/15/17 10:59 Budesonide/ Formoterol Fumarate (Symbicort 160/ 4.5 Inh) 2 puffs BID INH 04/15/17 21:00 05/15/17 20:59 04/15/17 20:32 2 PUFFS Enoxaparin Sodium (Lovenox Inj) 80 mg Q12 SQ 04/15/17 13:30 05/15/17 13:29 04/15/17 20:32 80 MG Finasteride (Proscar Tab) 5 mg QAM PO 04/16/17 09:00 05/16/17 08:59 Tamsulosin HCl (Flomax Cap) 0.4 mg HS PO 04/15/17 21:00 05/15/17 20:59 04/15/17 20:32 0.4 MG Fentanyl (Duragesic Patch) 75 mcg Q3D@0900 TD 04/15/17 13:30 04/29/17 13:29 04/15/17 13:59 75 MCG Albuterol/ Ipratropium (Duoneb) 3 ml QIDR INH 04/15/17 12:00 05/15/17 11:59 04/15/17 19:07 3 ML Sodium Chloride 1,000 ml @ 100 mls/hr Q10H IV 04/15/17 12:30 05/15/17 12:29 04/15/17 16:36 100 MLS/HR Cefepime HCl (Consult) 1 ea UD PRN N/A 04/15/17 12:45 05/15/17 12:44 Vancomycin HCl (Consult) 1 ea UD PRN N/A 04/15/17 12:45 05/15/17 12:44 Miscellaneous (Fentanyl Patch Remove & Waste) 1 ea Q3D@0859 N/A 04/15/17 13:29 05/15/17 13:28 04/15/17 13:29 1 EA Miscellaneous Information (Check Fentanyl Patch Placement) 1 ea QS N/A 04/15/17 16:00 05/15/17 15:59 04/15/17 15:32 1 EA Cefepime HCl 2000 mg/Syringe 20 ml @ 5 mls/min Q8@0600,1400,2200 IV 04/15/17 22:00 04/22/17 21:59 Vancomycin HCl 1000 mg/Sodium Chloride 270 ml @ 125 mls/hr Q8H IV 04/15/17 16:00 04/22/17 15:59 04/15/17 16:00 125 MLS/HR Norepinephrine Bitartrate 8 mg/ Dextrose 508 ml @ 0 mls/hr Q0M PRN IV 04/15/17 15:56 05/15/17 15:55 04/15/17 16:39 15.4 MLS/HR Hydrocortisone Sodium Succinate 100 mg/Syringe 2 ml @ 4 mls/min Q8H IV 04/15/17 16:00 05/15/17 15:59 04/15/17 16:25 4 MLS/MIN Review of Systems Constitutional: + fever, + chills ENT: No hearing loss, No unusual epistaxis, No nasal symptoms, No sore throat, No tinnitus, No dental problems, No trouble swallowing, No problem reported Respiratory: + cough, + sputum, + wheezing, + shortness of breath Cardiovascular: No chest pain, No orthopnea, No PND, No edema, No claudication , No palpitations, No problem reported Abdomen: No pain, No nausea, No vomiting, No diarrhea, No constipation, No GI bleeding, No problem reported Musculoskeletal: No joint pain, No muscle pain, No swelling, No calf pain, No problem reported Genitourinary - Male: No hematuria, No dysuria, No urinary frequency, No urinary urgency, No urinary hesitancy, No urinary retention, No urinary incontinence, No penile discharge, No lesions, No impotence, No problem reported Psychiatric: No depression symptoms, No anhedonism, No anxiety, No insomnia, No substance abuse, No problem reported Hematologic / Lymphatic: No abnormal bleeding/bruising, No clotting problems, No swollen lymph nodes, No night sweats, No problem reported Allergic / Immunologic: No environmental allergies, No seasonal allergies, No pet sensitivities, No food allergies, No hives, No frequent infections, No poor healing, No prolonged convalescence, No problem reported Physical Exam Date Time Temp Pulse Resp B/P (MAP) Pulse Ox O2 Delivery O2 Flow Rate FiO2 04/15/17 21:01 87 26 111/54 (73) 94 04/15/17 20:31 82 19 97/44 (61) 94 04/15/17 20:01 37.4 89 15 107/53 (71) 94 04/15/17 20:00 94 Nasal Cannula 4.0 04/15/17 19:07 77 22 93 Nasal Cannula 4.0 04/15/17 19:01 74 19 126/45 (72) 94 04/15/17 18:46 76 20 124/46 (72) 94 04/15/17 17:46 69 17 116/55 (75) 96 04/15/17 17:31 83 14 107/62 (77) 95 04/15/17 17:16 57 18 113/46 (68) 93 04/15/17 17:16 92 23 113/46 (68) 04/15/17 17:15 63 15 04/15/17 17:02 83 21 105/39 (61) 92 04/15/17 17:00 76 18 04/15/17 16:52 98 Nasal Cannula 4.0 04/15/17 16:47 113 27 110/49 (69) 04/15/17 16:45 100 26 04/15/17 16:36 70 18 101/32 (55) 93 04/15/17 16:30 90 13 04/15/17 16:00 Nasal Cannula 04/15/17 15:52 86/39 (55) 04/15/17 15:26 72 98 Nasal Cannula 4.0 04/15/17 14:58 37.3 66 18 89/45 (60) 97 Nasal Cannula 5.0 100/47 (64) 04/15/17 12:42 37.1 64 15 99/42 99 04/15/17 12:31 99/42 04/15/17 12:06 64 15 99 Mask 6.0 04/15/17 12:01 99/43 Mask 6.0 04/15/17 11:36 62 19 93 Mask 6.0 04/15/17 11:31 94/42 04/15/17 11:27 61 16 93 Nasal Cannula 4.0 04/15/17 11:22 61 17 94/42 96 Nasal Cannula 4.0 04/15/17 11:02 106 20 103/42 94 Nasal Cannula 4.0 04/15/17 10:31 76 18 103/47 96 Nasal Cannula 4.0 04/15/17 10:12 73 04/15/17 09:57 105/46 04/15/17 09:45 99 Mask 6.0 04/15/17 09:41 04/15/17 09:36 82 15 96 Mask 6.0 04/15/17 09:31 95/37 04/15/17 09:06 83 18 99 Mask 6.0 04/15/17 09:01 109/42 04/15/17 08:36 85 17 94 Mask 6.0 04/15/17 08:31 37.1 84 16 109/47 04/15/17 08:19 79 13 98 Mask 6.0 04/15/17 08:14 97 Mask 04/15/17 08:09 97 Mask 04/15/17 08:04 91 15 95 Mask 6.0 04/15/17 08:01 103/36 04/15/17 07:34 99 18 96 Mask 6.0 04/15/17 07:32 116/47 04/15/17 07:04 89 12 97 Mask 6.0 04/15/17 07:01 111/54 04/15/17 06:53 78 22 111/55 96 Mask 6.0 04/15/17 06:53 96 Room Air 6.0 04/15/17 06:52 112/49 04/15/17 06:52 102 04/15/17 06:48 96 Mask 6.0 04/15/17 06:47 89 Nasal Cannula 4.0 04/15/17 06:41 37.8 110 28 96/57 74 Nasal Cannula 4.0 General Appearance: uncomfortable Eyes: PERRLA, EOMI ENT: normal mouth exam Neck: no tenderness, trachea midline Respiratory: rhonchi, wheezing Cardiovasular: regular rate/rhythm, normal S1S2, no M/G/R, no murmur Abdomen: non tender, normal bowel sounds, no rebound Upper Extremities: no edema Lower Extremities: no edema Neuro: alert, oriented x 3, normal motor exam, normal sensation Psychiatric: normal affect Laboratory Results Last 24 Hours Test 04/15/17 07:05 04/15/17 07:12 04/15/17 07:13 04/15/17 07:29 White Blood Count 14.39 K/uL Red Blood Count 2.50 M/uL Hemoglobin 8.7 g/dL Hematocrit 27.2 % Mean Corpuscular Volume 108.8 fL Mean Corpuscular Hemoglobin 34.8 pg Mean Corpuscular Hemoglobin Concent 32.0 g/dl Platelet Count 56 K/uL Mean Platelet Volume 9.9 fL Neutrophils (%) (Auto) 87.6 % Lymphocytes (%) (Auto) 4.0 % Monocytes (%) (Auto) 7.9 % Eosinophils (%) (Auto) 0.1 % Basophils (%) (Auto) 0.0 % Neutrophils # (Auto) 12.61 K/uL Lymphocytes # (Auto) 0.57 K/uL Monocytes # (Auto) 1.13 K/uL Eosinophils # (Auto) 0.02 K/uL Basophils # (Auto) 0.00 K/uL RDW Standard Deviation 78.2 fL RDW Coefficient of Variation 20.0 % Immature Granulocyte % (Auto) 0.4 % Immature Granulocyte # (Auto) 0.06 K/uL Anisocytosis PRESENT Prothrombin Time 11.7 SECONDS Prothromb Time International Ratio 1.1 Activated Partial Thromboplast Time 36.3 SECONDS Partial Thromboplastin Ratio 1.4 Sodium Level 135 mmol/L Potassium Level 4.0 mmol/L Chloride Level 91 mmol/L Carbon Dioxide Level 40 mmol/L Anion Gap 4.0 mmol/L Blood Urea Nitrogen 17 mg/dl Creatinine 0.35 mg/dl Est Creatinine Clear Calc Drug Dose 214.4 ml/min Estimated GFR () > 150.0 Estimated GFR (Non- 130.8 BUN/Creatinine Ratio 47.8 Random Glucose 96 mg/dl Calcium Level 8.4 mg/dl Magnesium Level 1.4 mg/dl Total Bilirubin 0.6 mg/dl Direct Bilirubin 0.1 mg/dl Aspartate Amino Transf (AST/SGOT) 9 U/L Alanine Aminotransferase (ALT/SGPT) 16 U/L Alkaline Phosphatase 81 U/L Total Creatine Kinase 23 U/L Creatine Kinase MB 0.9 ng/ml Creatine Kinase MB Ratio 3.9 Total Protein 6.2 gm/dl Albumin 2.7 gm/dl Bedside Lactic Acid Venous 0.79 mmol/L Bedside Troponin I < 0.030 ng/ml Influenza Type A (RT-PCR) Neg for Influ A Influenza Type B (RT-PCR) Neg for Influ B Test 04/15/17 11:21 04/15/17 15:12 04/15/17 16:07 04/15/17 17:05 Arterial Blood pH 7.36 Arterial Blood Partial Pressure CO2 72 mmHg Arterial Blood Partial Pressure O2 86 mm/Hg Arterial Blood HCO3 40 mmol/L Arterial Blood Oxygen Saturation 94.4 % Arterial Blood Base Excess 12.7 mEq/L Arterial Blood Gas Delivery 6 L [place] Test POS Troponin I < 0.015 ng/ml Erythrocyte Sedimentation Rate 18 mm/hr Lactic Acid Level 0.8 mmol/L Magnesium Level 1.6 mg/dl C-Reactive Protein 9.69 mg/dl Procalcitonin 0.11 ng/ml Urine Color YELLOW Urine Appearance CLEAR Urine pH 6.0 Urine Specific [place] 1.020 Urine Protein NEG Urine Glucose (UA) NEG Urine Ketones NEG Urine Occult Blood NEG Urine Nitrite NEG Urine Bilirubin NEG Urine Urobilinogen NEG Urine Leukocyte Esterase NEG Test 04/15/17 18:00 Bedside Glucose 149 mg/dl Diagnostic Results Chest x-ray showed increased infiltrate in the right lower lobe, hyperinflated lungs, borderline increased cardiac silhouette. Assessment & Plan #1 sepsis, not in septic shock. #2 acute exacerbation of COPD. #3 right lower lobe pneumonia. Likely in immunocompromised patient with multiple admissions to the hospital representing healthcare acquired pneumonia. #4 history of PE. #5 pulmonary hypertension. #6 history of coronary artery disease. #7 history of peripheral arterial disease, it'll be difficult to accomplish map of 65. Plan: #1 change hydrocortisone to Solu-Medrol 40 mg IV every 8 hours. #2 continue broad-spectrum antibiotics. #3 agree with bronchodilators on standing basis. Including short-acting and long-acting beta agonist. #4 the patient is a small dose of norepinephrine which can be stopped. #5 IV fluid. Caution should be paid to the presence of pulmonary hypertension. #6 continue Lovenox for PE. #7 agree with aggressive management. Discussed with the patient, the staff, critical care time spent with the patient was 35 minutes.
[2017-04-15] MEDS: CEFEPIME IV 2,000 MG in SYRINGE 7.5 ML IV SCH (22:06)
[2017-04-15] MEDS: METHYLPREDNISOLONE IV 40 MG in SYRINGE 0 ML IV SCH (22:06)
[2017-04-15] MEDS ORDERED: GLUCAGON FOR INJ 1 MG VIAL SQ PRN (22:45)
[2017-04-15] MEDS ORDERED: ICU PROTOCOL FOR HYPERGLYCEMIA PRN (22:45)
[2017-04-15] MEDS ORDERED: GLUCOSE 10 TABS/TUBE PO PRN (22:45)
[2017-04-15] MEDS ORDERED: GLUCOSE 40% GEL 15 GM TUBE PO PRN (22:45)
[2017-04-15] MEDS ORDERED: DEXTROSE 50% 50 ML SYR IV PRN (22:45)
[2017-04-15] MEDS ORDERED: PHARMACY GLYCEMIC MGMT CONSULT PRN (22:59)
[2017-04-15] MEDS ORDERED: INSULIN ASPART 100 UNITS/ML 3 ML PEN SC STA (23:09)
[2017-04-15] MEDS ORDERED: LANTUS PER UNIT CHARGE SQ STA (23:10)
[2017-04-16] VITALS (37 sets, daily range): BP systolic 98–128; BP diastolic 40–58; PULSE 50–100; TEMP 36.5–37.3; O2SAT 91–100
[2017-04-16] MEDS ORDERED: INSULIN ASPART 100 UNITS/ML 3 ML PEN SC SCH (02:00)
[2017-04-16] MEDS: CEFEPIME IV 2,000 MG in SYRINGE 7.5 ML IV SCH ×3 (05:43→20:43)
[2017-04-16] MEDS: METHYLPREDNISOLONE IV 40 MG in SYRINGE 0 ML IV SCH ×3 (05:43→20:43)
[2017-04-16] MEDS: SODIUM CHLORIDE 0.9% 1000ML 1,000 ML IV SCH ×2 (05:43→13:33)
[2017-04-16] MEDS: ALBUT/IPRATROP 3MG/0.5MG NEB 3 ML VIAL INH SCH ×4 (06:23→18:58)
[2017-04-16] MEDS ORDERED: VANCOMYCIN TROUGH ONE (07:30)
[2017-04-16] MEDS: INSULIN ASPART 100 UNITS/ML 3 ML PEN SC SCH ×4 (08:02→20:24)
[2017-04-16] MEDS: BUDESONIDE/FORMOTEROL FUMARATE 160/4.5 60 PUFFS/INHALER INH SCH ×2 (08:03→19:18)
[2017-04-16] MEDS: CHECK FENTANYL PATCH PLACEMENT SCH ×2 (08:04→15:27)
[2017-04-16] MEDS: FINASTERIDE 5 MG TAB PO SCH (08:04)
[2017-04-16] MEDS: ENOXAPARIN 80 MG/0.8 ML SYR SQ SCH ×2 (08:04→19:17)
[2017-04-16] MEDS: VANCOMYCIN INJ 1,000 MG in SODIUM CHLORIDE 0.9% 250ML 250 ML IV SCH (08:28)
[2017-04-16 08:33] LABS: HEMATOCRIT 24.3 % (42-52); MEAN CELL VOLUME 106.1 fL (80-100); MEAN CORPUSCULAR HEMOGLOBIN 34.9 pg (25-34); MEAN CORPUSCULAR HGB CONC 32.9 g/dl (32-36); RED BLOOD COUNT 2.29 M/uL (4.7-6.1); WHITE BLOOD COUNT 9.89 K/uL (4.8-10.8)
[2017-04-16 08:34] LABS: MEAN PLATELET VOLUME 9.5 fL (7.4-10.4); PLATELET COUNT 42 K/uL (130-400)
[2017-04-16 09:08] LABS: BUN/CREATININE RATIO 30.3 (10-20); CALCIUM 8.4 mg/dl (8.5-10.1); CREATININE 0.42 mg/dl (0.60-1.40); MAGNESIUM 1.7 mg/dl (1.8-2.4); POTASSIUM 3.2 mmol/L (3.5-5.1)
[2017-04-16 09:24] LABS: ESTIMATED AVERAGE GLUCOSE 100 mg/dl; HA1C FLAG Normal (Normal)
[2017-04-16] MEDS ORDERED: POTASSIUM CHLORIDE 20 MEQ TABCR PO ONE (09:45)
--- NOTE | 2017-04-16 09:49 | Hospitalist Progress Note ---
Hospitalist Progress Note Date of Service Apr 16, 2017. (Cady Dalton ., DANETTE-C) Subjective Pt evaluation today including: conversation w/ patient, physical exam, chart review, lab review, review of inpatient medication list Pain: None PO Intake: Tolerating PO diet Voiding: no voiding problems The patient reports feeling a little bit better today. He denies any shortness of breath at rest but still complains of dyspnea with any minimal activity. He also reports a wet but non-productive cough and wheezing. His weakness and fatigue is a little bit improved. His chills and sweats have also improved, and he has not experienced either of those so far today, but did have a lot of sweats last night. The patient denies fevers, chest pain, palpitations, claudication, nausea, vomiting, abdominal pain, dysuria, hematuria, urinary retention, paralysis, weakness, numbness and tingling. Additional Comments: See HPI for pertinent positives and negatives. All other systems reviewed and negative. (Cady Dalton ., DANETTE-C) Objective Vital Signs Date Time Temp Pulse Resp B/P (MAP) Pulse Ox O2 Delivery O2 Flow Rate FiO2 04/16/17 09:00 123/53 (76) 04/16/17 08:30 124/51 (75) 04/16/17 08:29 108/52 (70) 04/16/17 08:05 36.8 80 22 110/52 (71) 96 Nasal Cannula 4.0 04/16/17 06:23 50 22 100 Nasal Cannula 4.0 04/16/17 06:02 86 17 116/42 (66) 94 Nasal Cannula 4.0 04/16/17 05:01 36.6 56 14 104/54 (71) 97 Nasal Cannula 4.0 04/16/17 04:01 60 17 99/50 (66) 97 Nasal Cannula 4.0 04/16/17 04:00 94 Nasal Cannula 4.0 04/16/17 03:31 58 14 98/49 (65) 97 Nasal Cannula 4.0 04/16/17 03:01 57 13 112/58 (76) 100 Nasal Cannula 4.0 04/16/17 02:01 100 18 99/55 (70) 96 Nasal Cannula 4.0 04/16/17 01:01 70 15 100/50 (67) 95 Nasal Cannula 4.0 04/16/17 00:01 68 13 102/51 (68) 96 Nasal Cannula 4.0 04/15/17 23:59 94 Nasal Cannula 5.0 04/15/17 23:01 36.7 77 18 109/44 (65) 96 Nasal Cannula 4.0 04/15/17 22:31 86 24 108/51 (70) 96 Nasal Cannula 4.0 04/15/17 22:01 88 20 130/56 (80) 96 Nasal Cannula 4.0 04/15/17 21:01 87 26 111/54 (73) 94 04/15/17 20:31 82 19 97/44 (61) 94 04/15/17 20:01 37.4 89 15 107/53 (71) 94 04/15/17 20:00 94 Nasal Cannula 4.0 04/15/17 19:07 77 22 93 Nasal Cannula 4.0 04/15/17 19:01 74 19 126/45 (72) 94 04/15/17 18:46 76 20 124/46 (72) 94 04/15/17 17:46 69 17 116/55 (75) 96 04/15/17 17:31 83 14 107/62 (77) 95 04/15/17 17:16 57 18 113/46 (68) 93 04/15/17 17:16 92 23 113/46 (68) 04/15/17 17:15 63 15 04/15/17 17:02 83 21 105/39 (61) 92 04/15/17 17:00 76 18 04/15/17 16:52 98 Nasal Cannula 4.0 04/15/17 16:47 113 27 110/49 (69) 04/15/17 16:45 100 26 04/15/17 16:36 70 18 101/32 (55) 93 04/15/17 16:30 90 13 04/15/17 16:00 Nasal Cannula 04/15/17 15:52 86/39 (55) 04/15/17 15:26 72 98 Nasal Cannula 4.0 04/15/17 14:58 37.3 66 18 89/45 (60) 97 Nasal Cannula 5.0 100/47 (64) 04/15/17 12:42 37.1 64 15 99/42 99 04/15/17 12:31 99/42 04/15/17 12:06 64 15 99 Mask 6.0 04/15/17 12:01 99/43 Mask 6.0 04/15/17 11:36 62 19 93 Mask 6.0 04/15/17 11:31 94/42 04/15/17 11:27 61 16 93 Nasal Cannula 4.0 04/15/17 11:22 61 17 94/42 96 Nasal Cannula 4.0 04/15/17 11:02 106 20 103/42 94 Nasal Cannula 4.0 04/15/17 10:31 76 18 103/47 96 Nasal Cannula 4.0 04/15/17 10:12 73 04/15/17 09:57 105/46 04/15/17 09:45 99 Mask 6.0 04/15/17 09:41 (Cady Dalton ., PA-C) Physical Exam Notes: General appearance: +Appears fatigued, chronically ill. Well-developed, well- nourished, no apparent distress Head: Normocephalic, atraumatic Eyes: Normal inspection, PERRL, EOMI ENT: Normal ENT inspection, hearing grossly normal, pharynx normal Neck: Supple, no JVD, trachea midline Respiratory/Chest: +Wheezing. Decreased breath sounds. Fine crackles in bases. No respiratory distress Cardiovascular: Regular rate & rhythm, no gallop, no murmur Abdomen/GI: Normal bowel sounds, non-tender, soft Extremities/Musculoskeletal: Normal inspection, no calf tenderness, no pedal edema Neurological/Psych: Alert, normal mood/affect, oriented x 3 Skin: Normal color, warm/dry, no rash (Cady Dalton ., PA-C) Laboratory Results Last 24 Hours Test 04/15/17 11:21 04/15/17 15:12 04/15/17 16:07 04/15/17 17:05 Arterial Blood pH 7.36 Arterial Blood Partial Pressure CO2 72 mmHg Arterial Blood Partial Pressure O2 86 mm/Hg Arterial Blood HCO3 40 mmol/L Arterial Blood Oxygen Saturation 94.4 % Arterial Blood Base Excess 12.7 mEq/L Arterial Blood Gas Delivery 6 L [place] Test POS Troponin I < 0.015 ng/ml Erythrocyte Sedimentation Rate 18 mm/hr Lactic Acid Level 0.8 mmol/L Magnesium Level 1.6 mg/dl C-Reactive Protein 9.69 mg/dl Procalcitonin 0.11 ng/ml Urine Color YELLOW Urine Appearance CLEAR Urine pH 6.0 Urine Specific [place] 1.020 Urine Protein NEG Urine Glucose (UA) NEG Urine Ketones NEG Urine Occult Blood NEG Urine Nitrite NEG Urine Bilirubin NEG Urine Urobilinogen NEG Urine Leukocyte Esterase NEG Test 04/15/17 18:00 04/15/17 21:54 04/15/17 22:56 04/15/17 23:26 Bedside Glucose 149 mg/dl 197 mg/dl 167 mg/dl Troponin I < 0.015 ng/ml Test 04/16/17 01:56 04/16/17 08:22 Bedside Glucose 151 mg/dl Sodium Level 139 mmol/L Potassium Level 3.2 mmol/L Chloride Level 97 mmol/L Carbon Dioxide Level 37 mmol/L Anion Gap 5.0 mmol/L Blood Urea Nitrogen 13 mg/dl Creatinine 0.42 mg/dl Est Creatinine Clear Calc Drug Dose 178.6 ml/min Estimated GFR () 140.6 Estimated GFR (Non- 121.3 BUN/Creatinine Ratio 30.3 Random Glucose 209 mg/dl Estimated Average Glucose 100 mg/dl Hemoglobin A1c 5.1 % Calcium Level 8.4 mg/dl Magnesium Level 1.7 mg/dl Vancomycin Level Trough 13.3 mcg/ml (Cady Dalton ., PAOfeliaC) Assessment and Plan 66 y/o male with a history of metastatic lung cancer to liver and bone, COPD, CAD, h/o MD s/p stents x3, HLD, h/o PE, and h/o urinary retention who presented to the ED on 04/15 with worsening shortness of breath and hypoxia. Pt with low grade temp of 37.8 on arrival with chills and sweats. Pt also tachycardic, tachypneic and hypotensive on arrival and hypoxic with pulse ox of 74% on 4L. Temperature improved with Tylenol in ED. Pt also received total of 1.25L NSS boluses in ED and BP improving. No longer tachycardic. CXR shows left PNA vs progressive of metastatic lung disease. EKG with anterior TWI, pt denies CP and trop negative. WBC 14.39. POC lactic acid negative. Sepsis/septic shock secondary to HCAP -Admit to telemetry, transferred to ICU soon after due to persistent hypotension despite IVF. Pt largely in SR overnight but did flip in and out of a-flutter. Pt had 2.3s pause around 23:30. -Blood pressure improving, will wean off Levophed and see if BP remains stable. If stable off Levophed can transfer back to [facility] status -Hydrocortisone changed to Solu-Medrol 40 mg IV q8h per ICU -ESR and CRP elevated at 18 and 9.69 respectively. Procalcitonin WNL. Lactic acid negative. -O2 by protocol. Pt currently on baseline 4L -ABG shows compensated hypercarbia likely due to COPD -Blood cultures pending -Vancomycin and Zosyn IV. Hold off on Levaquin as pt has been taking full course outpt -DuoNebs QIDR and q2h prn SOB/wheezing -NSS at 100 cc/hr Hypomagnesemia, hypokalemia--ongoing -Magnesium 1.4 on admission -Received 2 gm mg sulfate yesterday. Mag 1.7 on 04/16 -Mg sulfate 1 gm IV x 1 now -Pt flipping in and out of a-flutter last night, goal mg >2, goal K+ >4 -Potassium 3.2 on 04/16. KCl 40 mEq PO and 40 mEq IV Metastatic lung cancer to liver and bone, anemia -Check noncontrast head CT to r/o brain mets as cause of recent confusion -Hgb 8.7 on arrival, around baseline -Finished last chemo about 3 weeks ago, currently no active tx -Continue fentanyl patch 75 mcg TD q72h COPD--possible exacerbation vs PNA, wheezing on exam -IV steroids as above -Nebs as above -Continue Symbicort BID CAD, h/o MD s/p stents x 3, HLD--stable -Troponin negative x 3 -EKG this am shows possible inferior ST elevations, however I do not believe these truly meet criteria. Anterior TWI persist. H/o PE -Continue Lovenox 80 mg SC q12h H/o urinary retention -Continue Proscar 5 mg PO qd and Flomax 0.4 mg PO hs DVT prophylaxis -Enoxaparin 80 mg SC q12h -VIGNESH Broderick Code Status -Level I, FULL RESUSCITATION STATUS -Attempted to speak to pt about code status and possible palliative care consult , but pt is not receptive to either right now and did not want to discuss either topic. He would rather discuss this at a later time, perhaps when he is feeling better from his current acute illness. (Cady Dalton ., PAOfeliaC) Attending Attestation: Pt seen/examined, chart reviewed, care plan d/w DANETTE Dalton. I agree w/ the thurman components of her documentation. Tele overnight - runs of a fib/flutter. O/w NSR with ectopy. Feels "a little better" today with improved appetite. Cough/dyspnea unchanged. No obvious melena - last stool yesterday. Levophed weaned this AM. BPs stable overnight afebrile O2 sats acceptable gen - chronically ill-appearing, no distress neck - no JVD mouth - MMM heart - RRR, extra beats, s1, s2 lungs - extensive wheezing all segments, no distress abd - soft ext - no edema Hb 8 Cr <1 Mag/K low platelets <50 A/P: 1. septic shock - improved. Levophed weaned off this AM. Cont fluids, broad-spectrum IV abx, IV steroids, etc. 2. acute/chronic anemia - check hemoccult. Tx 2 units PRBCs. CBC in am. Was folate deficient earlier this fall - recheck AM. 3. acute/chronic hypoxic/hypercarbic resp failure 4. post-obstructive pneumonia - covering for gram negatives. 5. advanced, progressive stage 4 lung ca 6. thrombocytopenia - chronic - no indication for platelet Tx unless there is active bleeding, procedure, or <20,000 7. COPD w/ exacerbation - steroids, abx, nebs, etc 8. h/o DVT/PE - lovenox 1mg/kg q12h need to address code status, long-term care plan in light of poor prognosis, etc Awais Griffin MD (Awais Griffin MD)
[2017-04-16] MEDS ORDERED: MAGNESIUM SULFATE 1GM / D5W 1 GM in PREMIXED IN D5W 100 ML IV ONE (10:00)
--- NOTE | 2017-04-16 10:30 | Pharmacy Progress Note ---
Pharmacy Abx Dose Short Note Date of Service Apr 16, 2017. Assessment & Plan Assessment 66 year old male receiving vanco/cefepime for treatment of HAP Day # 2 of antimicrobial therapy. Plan Vancomycin * Trough level of 13.3 mcg/mL is slightly subtherapeutic * Change to 1250 mg IV every 8 hours * Goal trough level for : 15 to 20 mcg/mL * Trough or random level ordered for: 04/17/17 @0730 Pharmacy will continue to follow and will adjust dose/frequency as necessary. Thank you.
[2017-04-16] MEDS: POTASSIUM CHLR 10 MEQ / WTR 10 MEQ in PREMIXED WATER 100 ML IV SCH ×4 (10:45→14:32)
[2017-04-16] MEDS ORDERED: INSULIN GLARGINE SOLOSTAR 100 UNITS/ML 3 ML PEN SC ONE (11:45)
--- NOTE | 2017-04-16 13:51 | Pharmacy Progress Note ---
Glycemic Control Intl Consult Date of Service Apr 16, 2017. Scope Glycemic Pharmacist consulted by Contreras Cunha PA-C on 04/15/17 for glycemic control and to write orders per [facility] inpatient glycemic control protocol Objective Weight (Kilograms): 82.500 Accuchecks BSG (last 24hrs): Test 04/15/17 18:00 04/15/17 21:54 04/15/17 23:26 04/16/17 01:56 Bedside Glucose 149 mg/dl (70-99) 197 mg/dl (70-99) 167 mg/dl (70-99) 151 mg/dl (70-99) Test 04/16/17 06:32 04/16/17 08:22 04/16/17 11:16 Bedside Glucose 130 mg/dl (70-99) 212 mg/dl (70-99) Random Glucose 209 mg/dl (70-99) Laboratory Data (last 24hrs) Test 04/16/17 08:22 Anion Gap 5.0 mmol/L BUN/Creatinine Ratio 30.3 Blood Urea Nitrogen 13 mg/dl Creatinine 0.42 mg/dl Hemoglobin A1c 5.1 % Potassium Level 3.2 mmol/L Sodium Level 139 mmol/L White Blood Count 9.89 K/uL HbA1c Test 04/16/17 08:22 Hemoglobin A1c 5.1 % (4.5-5.6) Recent Pertinent Medications Outpatient Anti-diabetic Regimen: * N/A The patient is currently receiving: * Basal insulin: Lantus 14 units yesterday evening * Correctional Insulin: Novolog Correction per scale ACHS Goal Range: Low 140 mg/dL - High 180 mg/dL Correction Factor: 30 mg/dL/unit * Prandial insulin: Per carb ratio of 1 unit per 10 grams CHO consumed Risk Factors for Insulin Resistance: * Steroids: Solu-Medrol 40 mg IV q8 hours * Infection: COPD exacerbation on vancomycin and Zosyn * Pressors: Levophed - attempting to wean off * IVF: NS @ 100 cc/hr * Diet: type 2 diabetic diet Assessment & Plan ASSESSMENT: * ADA & AACE recommend a goal blood sugar range 140-180 mg/dl for the majority of critically ill & non-critically ill patients. However, more stringent targets may be selected in individual cases. Will utilize more stringent goal of 110-140mg/dl based on patient age & comorbidities. Additionally, tighter glycemic control is warranted to facilitate infection healing. * Mr Hagan is a 66 y/o M with a PMH of severe COPD and metastatic lung CA who is attempted with pneumonia. He is currently receiving high dose steroids. Overnight, the patient received Lantus 14 units and then no coverage. His fasting blood sugar was 130 mg/dL. This increased to 212 mg/dL at lunch. The patient is not a diabetic. * Started weight-based stress of 3 parameters for Novolog after lunch (slightly looser than stress of 3 at breakfast) secondary to the dose of Solu-Medrol. For Lantus, dosing was held off due to the decrease in blood sugars from yesterday evening to this morning. However, with the lunch blood sugar, a weight-based stress of 2 was started this morning with a scale available in the evening. PLAN FOR INPATIENT GLYCEMIC CONTROL: * Basal insulin with LANTUS 14 units SQ x 1 then 14-20 units SQ BID based on blood sugars * Correctional Insulin with NOVOLOG / REGULAR per scale ACHS or Q6hrs while NPO * Goal Range: Low 110 mg/dL - High 140 mg/dL * Correction Factor: 20 mg/dL/unit * Nutritional / Prandial insulin per carb ratio of 1 unit per 7 grams CHO consumed * Please note that the plan above was derived based on current level of insulin resistance and hospital stress. These recommendations are appropriate for inpatient admission only. Plan of care upon discharge will need to be reassessed to avoid potential outpatient hypo/hyperglycemia. Thank you.
[2017-04-16] MEDS: VANCOMYCIN INJ 1,250 MG in SODIUM CHLORIDE 0.9% 250ML 250 ML IV SCH (15:12)
[2017-04-16 16:17] LABS: HEMATOCRIT 22.2 % (42-52); MEAN CELL VOLUME 106.7 fL (80-100); MEAN CORPUSCULAR HEMOGLOBIN 34.6 pg (25-34); MEAN CORPUSCULAR HGB CONC 32.4 g/dl (32-36); RED BLOOD COUNT 2.08 M/uL (4.7-6.1); WHITE BLOOD COUNT 6.76 K/uL (4.8-10.8)
[2017-04-16 16:24] LABS: MEAN PLATELET VOLUME 9.9 fL (7.4-10.4); PLATELET COUNT 35 K/uL (130-400)
--- NOTE | 2017-04-16 16:28 | Critical Care Progress Note ---
Critical Care Progress Note Date of Service Apr 16, 2017. Attending Dr. Arreola Subjective The patient feels better today, he denies any chest pain, shortness of breath has been better. The patient slept throughout the night. Continue to have cough mainly in the morning. Sputum production is persistent as well. Wheezing also diminished but remains audible on the left side. Objective No events overnight. Current SOFA Score SOFA Score Response (Comments) Value PaO2/FiO2 (mmHg) < 400 1 SaO2 / FIO2 221 - 301 1 Platelets (x10) > 150 0 Bilirubin (mg/dL) < 1.2 0 Gal Coma Score 15 0 Level of Hypotension MAP less than 70 1 Creatinine (mg/dL) < 1.2 0 Total 3 Assessment & Plan #1 healthcare acquired pneumonia. Right lower lobe. #2 non-small cell lung CA status post chemoradiation, stage IV. #3 COPD exacerbation. #4 PE. #5 peripheral arterial disease. #6 resolving sepsis. Plan: #1 continue current antibiotics. #2 continue Lovenox. #3 titrates norepinephrine to systolic blood pressure of 90 rather than map of 65. The patient has peripheral arterial disease which will make it difficult to control his pulse pressure. #4 continue steroids and taper accordingly as a patient improves. #5 bronchodilators. #6 palliative care, address CODE STATUS. Thank you. Case discussed with the staff on rounds and details. Consults & Procedures Consultants: Pulmonary and oncology. Procedures: None Data Medications: Current Inpatient Medications Medications (Trade) Dose Ordered Sig/Abbi Route Start Time Stop Time Status Last Admin Dose Admin Acetaminophen (Tylenol Tab) 650 mg Q4H PRN PO 04/15/17 11:00 05/15/17 10:59 Al Hydrox/Mg Hydrox/Simethicone (Maalox Max Susp) 15 ml Q4H PRN PO 04/15/17 11:00 05/15/17 10:59 Magnesium Hydroxide (Milk Of Magnesia Susp) 30 ml Q12H PRN PO 04/15/17 11:00 05/15/17 10:59 Ondansetron HCl (Zofran Inj) 4 mg Q6H PRN IV 04/15/17 11:00 05/15/17 10:59 Polyethylene (Miralax Powder Packet) 17 gm DAILY PRN PO 04/15/17 11:00 05/15/17 10:59 Budesonide/ Formoterol Fumarate (Symbicort 160/ 4.5 Inh) 2 puffs BID INH 04/15/17 21:00 05/15/17 20:59 04/16/17 08:03 2 PUFFS Enoxaparin Sodium (Lovenox Inj) 80 mg Q12 SQ 04/15/17 13:30 05/15/17 13:29 04/16/17 08:04 80 MG Finasteride (Proscar Tab) 5 mg QAM PO 04/16/17 09:00 05/16/17 08:59 04/16/17 08:04 5 MG Tamsulosin HCl (Flomax Cap) 0.4 mg HS PO 04/15/17 21:00 05/15/17 20:59 04/15/17 20:32 0.4 MG Fentanyl (Duragesic Patch) 75 mcg Q3D@0900 TD 04/15/17 13:30 04/29/17 13:29 04/15/17 13:59 75 MCG Albuterol/ Ipratropium (Duoneb) 3 ml QIDR INH 04/15/17 12:00 05/15/17 11:59 04/16/17 15:17 3 ML Sodium Chloride 1,000 ml @ 100 mls/hr Q10H IV 04/15/17 12:30 05/15/17 12:29 04/16/17 13:33 100 MLS/HR Cefepime HCl (Consult) 1 ea UD PRN N/A 04/15/17 12:45 05/15/17 12:44 Vancomycin HCl (Consult) 1 ea UD PRN N/A 04/15/17 12:45 05/15/17 12:44 Miscellaneous (Fentanyl Patch Remove & Waste) 1 ea Q3D@0859 N/A 04/15/17 13:29 05/15/17 13:28 04/15/17 13:29 1 EA Miscellaneous Information (Check Fentanyl Patch Placement) 1 ea QS N/A 04/15/17 16:00 05/15/17 15:59 04/16/17 15:27 1 EA Cefepime HCl 2000 mg/Syringe 20 ml @ 5 mls/min Q8@0600,1400,2200 IV 04/15/17 22:00 04/22/17 21:59 04/16/17 13:33 5 MLS/MIN Methylprednisolone Sodium Succinate 40 mg/Syringe 0.64 ml @ 1.5 mls/min Q8H IV 04/15/17 22:00 05/15/17 21:59 04/16/17 13:33 1.5 MLS/MIN Miscellaneous Information (Icu Protocol For Hyperglycemia) 1 ea PRN PRN N/A 04/15/17 22:45 04/17/17 22:44 Insulin Aspart (novoLOG ASPART) SLIDING SCALE If C... ACHS SC 04/16/17 07:00 05/16/17 06:59 04/16/17 11:36 10 UNITS Glucose (Glucose 40% Gel) 15-30 GRAMS 15 GRAMS... UD PRN PO 04/15/17 22:45 05/15/17 22:44 Glucose (Glucose Chew Tab) 4-8 Tablets 4 Tabl... UD PRN PO 04/15/17 22:45 05/15/17 22:44 Dextrose (Dextrose 50% 50ML Syringe) 25-50ML OF 50% DW IV FOR... UD PRN IV 04/15/17 22:45 05/15/17 22:44 Glucagon (Glucagon Inj) 1 mg UD PRN SQ 04/15/17 22:45 05/15/17 22:44 Miscellaneous Information (Consult Glycemic Management Pharmacy) 1 ea DAILY PRN N/A 04/15/17 22:59 05/15/17 22:58 Heparin Sodium (Porcine) (Heparin 100 Unit/ml 5ml Flush) 5 ml PRN PRN IV 04/16/17 01:45 05/16/17 01:44 Vancomycin HCl 1250 mg/Sodium Chloride 275 ml @ 125 mls/hr Q8H IV 04/16/17 16:00 04/23/17 15:59 04/16/17 15:12 125 MLS/HR Insulin Glargine (Lantus Solostar Pen) SEE PROTOCOL TEXT BID SC 04/16/17 21:00 05/16/17 20:59 I & O: 24-Hour Column 04/17/17 07:59 Intake Total 2503 ml Balance 2503 ml Vital Signs: Date Time Temp Pulse Resp B/P (MAP) Pulse Ox O2 Delivery O2 Flow Rate FiO2 04/16/17 16:00 Room Air 04/16/17 15:19 70 18 96 Nasal Cannula 4.0 04/16/17 15:07 36.8 69 18 99/47 (64) 94 Nasal Cannula 4.0 04/16/17 13:37 74 107/52 (70) 96 Nasal Cannula 4.0 04/16/17 12:20 84 101/49 (66) 94 Nasal Cannula 4.0 04/16/17 12:00 Nasal Cannula 4.0 04/16/17 11:23 50 18 98 Nasal Cannula 4.0 04/16/17 11:18 36.8 88 22 106/40 (62) 95 Nasal Cannula 4.0 04/16/17 11:00 128/50 (76) 04/16/17 10:30 107/49 (68) 04/16/17 10:00 64 109/49 (69) 04/16/17 09:30 74 113/47 (69) 04/16/17 09:00 123/53 (76) 04/16/17 08:30 124/51 (75) 04/16/17 08:29 108/52 (70) 04/16/17 08:05 36.8 80 22 110/52 (71) 96 Nasal Cannula 4.0 04/16/17 08:00 Nasal Cannula 4.0 04/16/17 08:00 Nasal Cannula 04/16/17 06:23 50 22 100 Nasal Cannula 4.0 04/16/17 06:02 86 17 116/42 (66) 94 Nasal Cannula 4.0 04/16/17 05:01 36.6 56 14 104/54 (71) 97 Nasal Cannula 4.0 04/16/17 04:01 60 17 99/50 (66) 97 Nasal Cannula 4.0 04/16/17 04:00 94 Nasal Cannula 4.0 04/16/17 03:31 58 14 98/49 (65) 97 Nasal Cannula 4.0 04/16/17 03:01 57 13 112/58 (76) 100 Nasal Cannula 4.0 04/16/17 02:01 100 18 99/55 (70) 96 Nasal Cannula 4.0 04/16/17 01:01 70 15 100/50 (67) 95 Nasal Cannula 4.0 04/16/17 00:01 68 13 102/51 (68) 96 Nasal Cannula 4.0 04/15/17 23:59 94 Nasal Cannula 5.0 04/15/17 23:01 36.7 77 18 109/44 (65) 96 Nasal Cannula 4.0 04/15/17 22:31 86 24 108/51 (70) 96 Nasal Cannula 4.0 04/15/17 22:01 88 20 130/56 (80) 96 Nasal Cannula 4.0 04/15/17 21:01 87 26 111/54 (73) 94 04/15/17 20:31 82 19 97/44 (61) 94 04/15/17 20:01 37.4 89 15 107/53 (71) 94 04/15/17 20:00 94 Nasal Cannula 4.0 04/15/17 19:07 77 22 93 Nasal Cannula 4.0 04/15/17 19:01 74 19 126/45 (72) 94 04/15/17 18:46 76 20 124/46 (72) 94 04/15/17 17:46 69 17 116/55 (75) 96 04/15/17 17:31 83 14 107/62 (77) 95 04/15/17 17:16 57 18 113/46 (68) 93 04/15/17 17:16 92 23 113/46 (68) 04/15/17 17:15 63 15 04/15/17 17:02 83 21 105/39 (61) 92 04/15/17 17:00 76 18 04/15/17 16:52 98 Nasal Cannula 4.0 04/15/17 16:47 113 27 110/49 (69) 04/15/17 16:45 100 26 04/15/17 16:36 70 18 101/32 (55) 93 04/15/17 16:30 90 13 Laboratory Results: Last 24 Hours Test 04/15/17 17:05 04/15/17 18:00 04/15/17 21:54 04/15/17 22:56 Urine Color YELLOW Urine Appearance CLEAR Urine pH 6.0 Urine Specific [place] 1.020 Urine Protein NEG Urine Glucose (UA) NEG Urine Ketones NEG Urine Occult Blood NEG Urine Nitrite NEG Urine Bilirubin NEG Urine Urobilinogen NEG Urine Leukocyte Esterase NEG Bedside Glucose 149 mg/dl 197 mg/dl Troponin I < 0.015 ng/ml Test 04/15/17 23:26 04/16/17 01:56 04/16/17 06:32 04/16/17 08:22 Bedside Glucose 167 mg/dl 151 mg/dl 130 mg/dl White Blood Count 9.89 K/uL Red Blood Count 2.29 M/uL Hemoglobin 8.0 g/dL Hematocrit 24.3 % Mean Corpuscular Volume 106.1 fL Mean Corpuscular Hemoglobin 34.9 pg Mean Corpuscular Hemoglobin Concent 32.9 g/dl RDW Standard Deviation 75.8 fL RDW Coefficient of Variation 19.5 % Platelet Count 42 K/uL Mean Platelet Volume 9.5 fL Nucleated RBC Absolute Count (auto) 0.00 K/uL Nucleated Red Blood Cells % 0.0 % Sodium Level 139 mmol/L Potassium Level 3.2 mmol/L Chloride Level 97 mmol/L Carbon Dioxide Level 37 mmol/L Anion Gap 5.0 mmol/L Blood Urea Nitrogen 13 mg/dl Creatinine 0.42 mg/dl Est Creatinine Clear Calc Drug Dose 178.6 ml/min Estimated GFR () 140.6 Estimated GFR (Non- 121.3 BUN/Creatinine Ratio 30.3 Random Glucose 209 mg/dl Estimated Average Glucose 100 mg/dl Hemoglobin A1c 5.1 % Calcium Level 8.4 mg/dl Magnesium Level 1.7 mg/dl Vancomycin Level Trough 13.3 mcg/ml Test 04/16/17 11:16 04/16/17 15:56 04/16/17 15:57 Bedside Glucose 212 mg/dl 78 mg/dl White Blood Count 6.76 K/uL Red Blood Count 2.08 M/uL Hemoglobin 7.2 g/dL Hematocrit 22.2 % Mean Corpuscular Volume 106.7 fL Mean Corpuscular Hemoglobin 34.6 pg Mean Corpuscular Hemoglobin Concent 32.4 g/dl RDW Standard Deviation 76.8 fL RDW Coefficient of Variation 19.8 %
[2017-04-16] MEDS: TAMSULOSIN HCL 0.4 MG CAP PO SCH (19:18)
[2017-04-16] MEDS: INSULIN GLARGINE SOLOSTAR 100 UNITS/ML 3 ML PEN SC SCH (20:46)
[2017-04-16] MEDS ORDERED: INSULIN GLARGINE SOLOSTAR 100 UNITS/ML 3 ML PEN SC SCH (21:00)
[2017-04-17] VITALS (13 sets, daily range): BP systolic 95–166; BP diastolic 54–82; PULSE 54–89; TEMP 36.5–37; O2SAT 91–96
[2017-04-17] MEDS: VANCOMYCIN INJ 1,250 MG in SODIUM CHLORIDE 0.9% 250ML 250 ML IV SCH ×4 (01:00→23:36)
[2017-04-17] MEDS ORDERED: TRAMADOL HCL 50 MG TAB PO STA (02:44)
[2017-04-17 05:43] LABS: BLOOD UREA NITROGEN 15 mg/dl (7-18); BUN/CREATININE RATIO 46.6 (10-20); CALCIUM 8.6 mg/dl (8.5-10.1); CARBON DIOXIDE 37 mmol/L (21-32); CHLORIDE 101 mmol/L (98-107); CREATININE 0.33 mg/dl (0.60-1.40); GLUCOSE 111 mg/dl (70-99); MAGNESIUM 1.6 mg/dl (1.8-2.4); POTASSIUM 3.8 mmol/L (3.5-5.1); SODIUM 139 mmol/L (136-145)
[2017-04-17] MEDS: CEFEPIME IV 2,000 MG in SYRINGE 7.5 ML IV SCH ×3 (06:35→22:16)
[2017-04-17 06:36] LABS: HEMATOCRIT 24.3 % (42-52); MEAN CELL VOLUME 101.3 fL (80-100); MEAN CORPUSCULAR HEMOGLOBIN 33.8 pg (25-34); MEAN CORPUSCULAR HGB CONC 33.3 g/dl (32-36); MEAN PLATELET VOLUME 9.9 fL (7.4-10.4); PLATELET COUNT 39 K/uL (130-400); WHITE BLOOD COUNT 8.85 K/uL (4.8-10.8)
[2017-04-17] MEDS: METHYLPREDNISOLONE IV 40 MG in SYRINGE 0 ML IV SCH ×3 (06:36→22:16)
[2017-04-17] MEDS: ALBUT/IPRATROP 3MG/0.5MG NEB 3 ML VIAL INH SCH ×4 (06:58→19:06)
[2017-04-17] MEDS ORDERED: VANCOMYCIN TROUGH ONE (07:30)
[2017-04-17] MEDS: MAGNESIUM SULFATE 1GM / D5W 1 GM in PREMIXED IN D5W 100 ML IV SCH ×2 (07:34→08:36)
[2017-04-17] MEDS: CHECK FENTANYL PATCH PLACEMENT SCH ×4 (07:35→23:36)
[2017-04-17] MEDS: FINASTERIDE 5 MG TAB PO SCH (07:35)
[2017-04-17] MEDS: ENOXAPARIN 80 MG/0.8 ML SYR SQ SCH ×2 (07:35→19:59)
[2017-04-17] MEDS: BUDESONIDE/FORMOTEROL FUMARATE 160/4.5 60 PUFFS/INHALER INH SCH ×2 (07:36→21:46)
[2017-04-17] MEDS: INSULIN ASPART 100 UNITS/ML 3 ML PEN SC SCH ×4 (07:38→21:00)
[2017-04-17] MEDS: INSULIN GLARGINE SOLOSTAR 100 UNITS/ML 3 ML PEN SC SCH ×2 (07:38→20:00)
[2017-04-17] MEDS ORDERED: POTASSIUM CHLORIDE 20 MEQ TABCR PO ONE (08:45)
[2017-04-17] MEDS: PANTOprazole SOD 40 MG TAB PO SCH (09:22)
--- NOTE | 2017-04-17 09:54 | Pharmacy Progress Note ---
Pharmacy Glycemic Short Note 2 Date of Service Apr 17, 2017. OUTPATIENT ANTIDIABETIC REGIMEN: * N/A ASSESSMENT: * Mr Hagan is a 66 y/o M with a complicated PMH who presents with HAP currently on vancomycin and cefepime. He continues to received Solu-Medrol 40 mg IV [id number]. Yesterday, he received 36 units of insulin (22 units of basal) - his blood sugars ranged from 78-212 mg/dL. Currently, his fasting blood sugar was 117 mg/dL (decreased from 136 mg/dL last night). Patient may require higher doses of Lantus in the morning and less or none in the evening as the patient retains the ability to correct overnight. * For post-prandial blood sugars, weight-based stress of 3 appeared to be too effective after lunch (decreased from 212 mg/dL to 78 mg/dL then increased to 136 mg/dL at bedtime. I believe this would have been lower had the pre-dinner lunch blood sugar been higher). Loosened slightly today to slightly looser then weight-based stress of 3. This should provide more consistent blood sugars. PLAN FOR INPATIENT GLYCEMIC CONTROL: * Basal insulin * Lantus 8 units SQ BID if blood sugar greater than 120 mg/dL * Bolus insulin * NovoLog per scale ACHS or Q6hrs while NPO * Goal Range: Low 110 mg/dL - High 140 mg/dL * Correction Factor: 25 mg/dL/unit * Nutritional / Prandial insulin per carb ratio of 1 unit per 9 grams CHO consumed PLAN FOR DISCHARGE: * If steroids are not continued at discharge, it is reasonable for patient to not have any insulin or diabetes medications at that time.
--- NOTE | 2017-04-17 11:07 | Hospitalist Progress Note ---
Hospitalist Progress Note Date of Service Apr 17, 2017. (Cady Dalton ., LINOC) Subjective Pt evaluation today including: conversation w/ patient, physical exam, chart review, lab review, review of inpatient medication list Pain: None PO Intake: Tolerating PO diet Voiding: no voiding problems Patient reports that his breathing feels somewhat improved but is still short of breath and dyspneic on exertion. He is still coughing and this is sometimes productive. He also reports wheezing. He denies any hematochezia, melena or conor bleeding. The patient denies fevers, chills, sweats, chest pain, palpitations, claudication, nausea, vomiting, abdominal pain, dysuria, hematuria , urinary retention, paralysis, weakness, numbness and tingling. Additional Comments: See HPI for pertinent positives and negatives. All other systems reviewed and negative. (Cady Dalton ., DANETTE-C) Objective Vital Signs Date Time Temp Pulse Resp B/P (MAP) Pulse Ox O2 Delivery O2 Flow Rate FiO2 04/17/17 08:00 Nasal Cannula 3.0 04/17/17 07:59 36.7 54 19 102/61 (75) 95 3.0 04/17/17 06:59 55 14 96 Nasal Cannula 3.0 04/17/17 04:00 Nasal Cannula 2.0 04/17/17 02:57 36.7 59 20 95/56 (69) 96 Humidified Air 3.0 04/17/17 00:55 36.6 58 22 117/56 94 2.0 04/17/17 00:46 36.6 60 18 125/57 91 2.0 04/16/17 23:59 Nasal Cannula 2.0 04/16/17 23:45 37.3 74 18 99/48 93 2.0 04/16/17 22:45 36.5 60 20 107/50 95 04/16/17 22:20 36.8 62 20 105/50 92 3.0 04/16/17 22:01 61 18 102/54 94 3.0 04/16/17 21:52 36.8 63 20 104/54 97 04/16/17 21:43 71 98/56 04/16/17 21:25 36.7 67 113/53 95 04/16/17 20:30 71 20 113/50 95 04/16/17 20:00 Room Air 04/16/17 19:45 36.9 73 18 104/51 92 04/16/17 19:15 36.9 76 18 102/50 93 4.0 04/16/17 19:00 68 20 103/52 95 04/16/17 19:00 77 14 94 Nasal Cannula 4.0 04/16/17 18:50 36.8 83 20 113/56 95 4.0 04/16/17 17:50 74 20 112/40 (64) 91 Nasal Cannula 4.0 04/16/17 16:00 Room Air 04/16/17 15:19 70 18 96 Nasal Cannula 4.0 04/16/17 15:07 36.8 69 18 99/47 (64) 94 Nasal Cannula 4.0 04/16/17 13:37 74 107/52 (70) 96 Nasal Cannula 4.0 04/16/17 12:20 84 101/49 (66) 94 Nasal Cannula 4.0 04/16/17 12:00 Nasal Cannula 4.0 04/16/17 11:23 50 18 98 Nasal Cannula 4.0 04/16/17 11:18 36.8 88 22 106/40 (62) 95 Nasal Cannula 4.0 04/16/17 11:00 128/50 (76) (Cady Dalton ., PA-C) Physical Exam Notes: General appearance: +Appears fatigued, chronically ill. Well-developed, well- nourished, no apparent distress Head: Normocephalic, atraumatic Eyes: Normal inspection, PERRL, EOMI ENT: Normal ENT inspection, hearing grossly normal, pharynx normal Neck: Supple, no JVD, trachea midline Respiratory/Chest: +Wheezing, poor air movement. Decreased breath sounds. No respiratory distress Cardiovascular: Regular rate & rhythm, no gallop, no murmur Abdomen/GI: Normal bowel sounds, non-tender, soft Extremities/Musculoskeletal: Normal inspection, no calf tenderness, no pedal edema Neurological/Psych: Alert, normal mood/affect, oriented x 3 Skin: Normal color, warm/dry, no rash (Cady Dalton ., PA-C) Laboratory Results Last 24 Hours Test 04/16/17 11:16 04/16/17 15:56 04/16/17 15:57 04/16/17 19:59 Bedside Glucose 212 mg/dl 78 mg/dl 136 mg/dl White Blood Count 6.76 K/uL Red Blood Count 2.08 M/uL Hemoglobin 7.2 g/dL Hematocrit 22.2 % Mean Corpuscular Volume 106.7 fL Mean Corpuscular Hemoglobin 34.6 pg Mean Corpuscular Hemoglobin Concent 32.4 g/dl RDW Standard Deviation 76.8 fL RDW Coefficient of Variation 19.8 % Platelet Count 35 K/uL Mean Platelet Volume 9.9 fL Test 04/17/17 04:56 04/17/17 05:24 04/17/17 07:51 White Blood Count 8.85 K/uL Red Blood Count 2.40 M/uL Hemoglobin 8.1 g/dL Hematocrit 24.3 % Mean Corpuscular Volume 101.3 fL Mean Corpuscular Hemoglobin 33.8 pg Mean Corpuscular Hemoglobin Concent 33.3 g/dl RDW Standard Deviation 84.1 fL RDW Coefficient of Variation 23.1 % Platelet Count 39 K/uL Mean Platelet Volume 9.9 fL Sodium Level 139 mmol/L Potassium Level 3.8 mmol/L Chloride Level 101 mmol/L Carbon Dioxide Level 37 mmol/L Anion Gap 1.0 mmol/L Blood Urea Nitrogen 15 mg/dl Creatinine 0.33 mg/dl Est Creatinine Clear Calc Drug Dose 227.4 ml/min Estimated GFR () > 150.0 Estimated GFR (Non- 134.0 BUN/Creatinine Ratio 46.6 Random Glucose 111 mg/dl Calcium Level 8.6 mg/dl Magnesium Level 1.6 mg/dl Folate 2.35 ng/mL Bedside Glucose 117 mg/dl Vancomycin Level Trough 19.5 mcg/ml (Cady Dalton ., PA-C) Assessment and Plan 66 y/o male with a history of metastatic lung cancer to liver and bone, COPD, CAD, h/o TN s/p stents x3, HLD, h/o PE, and h/o urinary retention who presented to the ED on 04/15 with worsening shortness of breath and hypoxia. Pt with low grade temp of 37.8 on arrival with chills and sweats. Pt also tachycardic, tachypneic and hypotensive on arrival and hypoxic with pulse ox of 74% on 4L. Temperature improved with Tylenol in ED. Pt also received total of 1.25L NSS boluses in ED and BP improving. No longer tachycardic. CXR shows left PNA vs progressive of metastatic lung disease. EKG with anterior TWI, pt denies CP and trop negative. WBC 14.39. POC lactic acid negative. Sepsis/septic shock secondary to HCAP--improving -Admit to telemetry, transferred to ICU soon after due to persistent hypotension despite IVF. Pt in sinus rhythm/sinus bradycardia overnight with HR 50s-60s -Levophed stopped 04/16, BP remaining stable. Transferred to [facility] status -Hydrocortisone changed to Solu-Medrol 40 mg IV q8h per ICU -ESR and CRP elevated at 18 and 9.69 respectively. Procalcitonin WNL. Lactic acid negative. -O2 by protocol. Pt currently on 3L, less than his home requirement -ABG shows compensated hypercarbia likely due to COPD -Blood cultures NGTD x2 -Vancomycin and Zosyn IV. Day #3 of abx. Hold off on Levaquin as pt has been taking full course outpt. -DuoNebs QIDR and q2h prn SOB/wheezing -D/C IVF Acute on chronic anemia, concern for acute blood loss -Hgb down to 7.2, received 2 units PRBC on 04/16 -Hgb only up to 8.1 on 04/17. Recheck CBC at 1100 -Check fecal occult blood -Folate low, start folic acid 1 mg PO qd, one dose now -Start Protonix 40 mg PO qd Hypomagnesemia, hypokalemia--improving -Magnesium 1.4 on admission -Magnesium 1.6 on 04/17, give mg sulfate 1 gm IV -Potassium 3.8 on 04/17, up from 3.2. Give KCl 20 mEq PO x 1. No a-flutter last night Metastatic lung cancer to liver and bone -Check noncontrast head CT to r/o brain mets as cause of recent confusion -Finished last chemo about 3 weeks ago, currently no active tx -Continue fentanyl patch 75 mcg TD q72h COPD--possible exacerbation vs PNA, wheezing on exam -IV steroids as above -Nebs as above -Continue Symbicort BID CAD, h/o TN s/p stents x 3, HLD--stable -Troponin negative x 3 -EKG this am shows possible inferior ST elevations, however I do not believe these truly meet criteria. Anterior TWI persist. H/o PE -Continue Lovenox 80 mg SC q12h H/o urinary retention -Continue Proscar 5 mg PO qd and Flomax 0.4 mg PO hs DVT prophylaxis -Enoxaparin 80 mg SC q12h -VIGNESH ton and SCDs Code Status -Level I, FULL RESUSCITATION STATUS -Attempted to speak to pt about code status and possible palliative care consult , but pt is not receptive to either right now and did not want to discuss either topic. He would rather discuss this at a later time, perhaps when he is feeling better from his current acute illness. (Cady Dalton ., PAOfeliaC) Attending Attestation: Pt seen/examined, chart reviewed, care plan d/w DANETTE Dalton. I agree w/ the thurman components of her documentation. Pt reports he gets anxious at night-time when he has dyspnea. The dyspnea sometimes wakes him at night. He also has night-time cough that wakes him. He requests after d/c to have the small, portable O2 tank that is in a purse ( rather than large green tank on wheels). BPs stable overnight afebrile gen - chronically ill-appearing, no distress neck - no JVD mouth - MMM; slight early thrush heart - RRR, extra beats, s1, s2 lungs - extensive wheezing all segments, no distress, slight rales bases abd - soft ext - no edema Hb 8.1 Cr <1 platelets <34 A/P: 1. septic shock -resolved. Presumed 2nd to pulmonary source. 2. acute/chronic anemia - check hemoccult. Tx 2 units PRBCs yesterday with only mild improvement; repeat CBC later today for stability. CBC in am. Folate def may be playing a role as well. 3. acute/chronic hypoxic/hypercarbic resp failure 4. post-obstructive pneumonia - covering for gram negatives. day #3 of broad- spectrum IV abx therapy. 5. advanced, progressive stage 4 lung ca 6. thrombocytopenia - chronic - no indication for platelet Tx unless there is active bleeding, procedure, or <20,000; he remains on lovenox 1mg/kg q12h and if platelets worsen need to weigh benefits of lovenox vs risks CBC in am 7. COPD w/ exacerbation - steroids, abx, nebs, etc; consider wean steroids tomorrow 8. h/o DVT/PE - lovenox 1mg/kg q12h; see above 9. thrush - nystatin 10. anxiety - ativan 0.25mg q8h prn 11. night-time cough - schedule tessalon 100mg at HS 12. folic acid def - 1mg daily supplementation Dr. Biggs, his primary oncologist, spoke with patient today. he encouraged him to think about code status and overall care plan in light of declining status. Pt at this time is full code despite his chemo being stopped earlier this fall ( was stopped due to intolerance to chemo) ok to go to med/surg Awais Griffin MD (Awais Griffin MD)
[2017-04-17 12:18] LABS: HEMATOCRIT 26.3 % (42-52); MEAN CELL VOLUME 101.2 fL (80-100); MEAN CORPUSCULAR HEMOGLOBIN 33.1 pg (25-34); MEAN CORPUSCULAR HGB CONC 32.7 g/dl (32-36); WHITE BLOOD COUNT 8.83 K/uL (4.8-10.8)
[2017-04-17 12:25] LABS: MEAN PLATELET VOLUME 9.4 fL (7.4-10.4); PLATELET COUNT 34 K/uL (130-400)
--- NOTE | 2017-04-17 14:40 | Pharmacy Progress Note ---
Pharmacy Abx Dose Short Note Date of Service Apr 17, 2017. Assessment & Plan Assessment 66 year old male receiving vanc/cefepime for treatment of HAP Day # 3 of antimicrobial therapy. Plan Vancomycin * Trough level of 19.5 mcg/mL is therapeutic. * Continue dose of 1250 mg IV every 8 hours, may consider dropping dose to 1250mg q10 in anticpiation of accumulation if to continue * Goal trough level : 15 to 20 mcg/mL * Trough or random level ordered as clinically indicated. Pharmacy will continue to follow and will adjust dose/frequency as necessary. Thank you.
[2017-04-17] MEDS ORDERED: LORAZEPAM 0.5 MG TAB PO PRN (17:00)
[2017-04-17] MEDS: BENZONATATE 100MG CAP PO SCH (19:58)
[2017-04-17] MEDS: TAMSULOSIN HCL 0.4 MG CAP PO SCH (19:59)
[2017-04-17] MEDS: NYSTATIN SUSP 500,000 U/5 ML UDC PO SCH (21:11)
[2017-04-17] MEDS ORDERED: LORAZEPAM 2 MG/ML 1 ML VIAL IV STA (23:13)
[2017-04-17] MEDS ORDERED: LORAZEPAM INJ 0.5 MG in SYRINGE 0.75 ML IV STA (23:15)
[2017-04-18] VITALS (11 sets, daily range): BP systolic 107–142; BP diastolic 51–71; PULSE 50–74; TEMP 36.2–36.8; O2SAT 92–100
[2017-04-18 05:48] LABS: HEMATOCRIT 25.8 % (42-52); MEAN CORPUSCULAR HEMOGLOBIN 32.8 pg (25-34); MEAN CORPUSCULAR HGB CONC 32.2 g/dl (32-36); RED BLOOD COUNT 2.53 M/uL (4.7-6.1); WHITE BLOOD COUNT 7.81 K/uL (4.8-10.8)
[2017-04-18 05:50] LABS: MEAN PLATELET VOLUME 9.5 fL (7.4-10.4); PLATELET COUNT 30 K/uL (130-400)
[2017-04-18] MEDS: CEFEPIME IV 2,000 MG in SYRINGE 7.5 ML IV SCH ×3 (06:19→23:38)
[2017-04-18] MEDS: METHYLPREDNISOLONE IV 40 MG in SYRINGE 0 ML IV SCH ×2 (06:19→20:56)
[2017-04-18 06:22] LABS: BUN/CREATININE RATIO 35.9 (10-20); CALCIUM 8.6 mg/dl (8.5-10.1); CREATININE 0.51 mg/dl (0.60-1.40); MAGNESIUM 1.7 mg/dl (1.8-2.4)
[2017-04-18] MEDS: ALBUT/IPRATROP 3MG/0.5MG NEB 3 ML VIAL INH SCH ×4 (07:09→18:57)
[2017-04-18] MEDS: INSULIN GLARGINE SOLOSTAR 100 UNITS/ML 3 ML PEN SC SCH (08:00)
[2017-04-18] MEDS: NYSTATIN SUSP 500,000 U/5 ML UDC PO SCH ×4 (08:22→21:06)
[2017-04-18] MEDS: BUDESONIDE/FORMOTEROL FUMARATE 160/4.5 60 PUFFS/INHALER INH SCH ×2 (08:22→20:56)
[2017-04-18] MEDS: FINASTERIDE 5 MG TAB PO SCH (08:23)
[2017-04-18] MEDS: PANTOprazole SOD 40 MG TAB PO SCH (08:23)
[2017-04-18] MEDS: CHECK FENTANYL PATCH PLACEMENT SCH ×3 (08:26→23:38)
[2017-04-18] MEDS: ENOXAPARIN 80 MG/0.8 ML SYR SQ SCH ×2 (08:27→21:06)
[2017-04-18] MEDS: INSULIN ASPART 100 UNITS/ML 3 ML PEN SC SCH ×4 (08:31→21:00)
[2017-04-18] MEDS ORDERED: MAGNESIUM SULFATE 1GM / D5W 1 GM in PREMIXED IN D5W 100 ML IV ONE (09:00)
[2017-04-18] MEDS: VANCOMYCIN INJ 1,250 MG in SODIUM CHLORIDE 0.9% 250ML 250 ML IV SCH (09:09)
[2017-04-18] MEDS: FENTANYL 75 MCG/HR TDSY TD SCH (09:16)
[2017-04-18] MEDS: FENTANYL PATCH REMOVE & WASTE SCH (09:19)
--- NOTE | 2017-04-18 11:36 | Pharmacy Progress Note ---
Pharmacy Glycemic Short Note 2 Date of Service Apr 18, 2017. OUTPATIENT ANTIDIABETIC REGIMEN: * N/A - normal A1c ASSESSMENT: * 66yo male (no diabetes) with steroid induced hyperglycemia * AM fasting BSGs are in range at 117 yesterday, 112 today. No basal insulin needed * Pt is receiving NovoLog per scale for post-prandial hyperglycemia secondary to steroids, levophed, infection * Levophed stopped 2 days ago * Infection is being adequately treated * Steroid dose tapered from Q8hrs to Q12hrs * Likely aggressive insulin dosing not needed with improvement in patient status and step down in steroid dosing - will decrease/loosen regimen accordingly PLAN FOR INPATIENT GLYCEMIC CONTROL: * Basal insulin * None Needed * Bolus insulin: loosen parameters * NovoLog per scale ACHS or Q6hrs while NPO * Goal Range: Low 110 mg/dL - High 140 mg/dL * Correction Factor: 25 mg/dL/unit * Nutritional / Prandial insulin per carb ratio of 1 unit per 15 grams CHO consumed PLAN FOR DISCHARGE: * A1c = 5.1% * this is normal * no changes/antidiabetic medications needed at discharge.
--- NOTE | 2017-04-18 11:58 | Hospitalist Progress Note ---
Hospitalist Progress Note Date of Service Apr 18, 2017. (Cady Dalton ., MAKSIM) Subjective Pt evaluation today including: conversation w/ patient, physical exam, chart review, lab review, review of inpatient medication list Pain: None PO Intake: Tolerating PO diet, reports fair appetite Voiding: no voiding problems Patient reports feeling a bit better. Still complains of shortness of breath, dyspnea on exertion, and wheezing. He has a cough that is sometimes productive. He feels weak and fatigued. The patient denies fevers, chills, sweats, chest pain, palpitations, claudication, nausea, vomiting, abdominal pain , dysuria, hematuria, urinary retention, paralysis, weakness, numbness and tingling. Additional Comments: See HPI for pertinent positives and negatives. All other systems reviewed and negative. (Cady Dalton ., LINOC) Objective Vital Signs Date Time Temp Pulse Resp B/P (MAP) Pulse Ox O2 Delivery O2 Flow Rate FiO2 04/18/17 11:13 69 16 97 Nasal Cannula 3.0 04/18/17 11:13 36.7 71 20 107/51 (69) 92 04/18/17 08:30 100 Nasal Cannula 3.0 04/18/17 07:38 36.2 53 18 118/66 (83) 100 04/18/17 07:09 66 16 97 Nasal Cannula 3.0 04/18/17 04:58 60 04/18/17 04:37 36.4 50 18 142/58 (86) 98 Nasal Cannula 3.0 04/18/17 00:00 Nasal Cannula 4.0 04/17/17 23:11 36.5 60 18 114/63 (80) 95 Nasal Cannula 3.0 04/17/17 20:00 Nasal Cannula 4.0 04/17/17 19:12 69 16 96 Nasal Cannula 3.0 04/17/17 16:30 95 Nasal Cannula 4.0 04/17/17 15:50 36.9 65 14 4.0 04/17/17 15:01 65 14 95 Nasal Cannula 3.0 04/17/17 14:55 36.9 61 20 102/54 (70) 95 Nasal Cannula 4.0 04/17/17 12:00 Nasal Cannula 3.0 04/17/17 11:46 36.9 58 20 123/54 (77) 91 Nasal Cannula 3.0 (Cady Dalton ., PA-C) Physical Exam Notes: General appearance: +Appears fatigued, chronically ill. Well-developed, well- nourished, no apparent distress Head: Normocephalic, atraumatic Eyes: Normal inspection, PERRL, EOMI ENT: Normal ENT inspection, hearing grossly normal, pharynx normal Neck: Supple, no JVD, trachea midline Respiratory/Chest: +Wheezing throughout although less tight than yesterday. Fine crackles in bases. No respiratory distress Cardiovascular: Regular rate & rhythm, no gallop, no murmur Abdomen/GI: Normal bowel sounds, non-tender, soft Extremities/Musculoskeletal: Normal inspection, no calf tenderness, no pedal edema Neurological/Psych: Alert, normal mood/affect, oriented x 3 Skin: Normal color, warm/dry, no rash (Cady Dalton ., PA-C) Laboratory Results Last 24 Hours Test 04/17/17 11:53 04/17/17 16:02 04/17/17 21:04 04/18/17 05:23 White Blood Count 8.83 K/uL 7.81 K/uL Red Blood Count 2.60 M/uL 2.53 M/uL Hemoglobin 8.6 g/dL 8.3 g/dL Hematocrit 26.3 % 25.8 % Mean Corpuscular Volume 101.2 fL 102.0 fL Mean Corpuscular Hemoglobin 33.1 pg 32.8 pg Mean Corpuscular Hemoglobin Concent 32.7 g/dl 32.2 g/dl RDW Standard Deviation 85.4 fL 81.0 fL RDW Coefficient of Variation 23.4 % 22.4 % Platelet Count 34 K/uL 30 K/uL Mean Platelet Volume 9.4 fL 9.5 fL Bedside Glucose 88 mg/dl 103 mg/dl Sodium Level 141 mmol/L Potassium Level 4.0 mmol/L Chloride Level 101 mmol/L Carbon Dioxide Level 37 mmol/L Anion Gap 3.0 mmol/L Blood Urea Nitrogen 18 mg/dl Creatinine 0.51 mg/dl Est Creatinine Clear Calc Drug Dose 147.1 ml/min Estimated GFR () 129.8 Estimated GFR (Non- 112.0 BUN/Creatinine Ratio 35.9 Random Glucose 93 mg/dl Calcium Level 8.6 mg/dl Magnesium Level 1.7 mg/dl Test 04/18/17 07:43 12/15/17 11:27 Bedside Glucose 112 mg/dl 140 mg/dl (Cady Dalton ., MAKSIM) Assessment and Plan 66 y/o male with a history of metastatic lung cancer to liver and bone, COPD, CAD, h/o CO s/p stents x3, HLD, h/o PE, and h/o urinary retention who presented to the ED on 04/15 with worsening shortness of breath and hypoxia. Pt with low grade temp of 37.8 on arrival with chills and sweats. Pt also tachycardic, tachypneic and hypotensive on arrival and hypoxic with pulse ox of 74% on 4L. Temperature improved with Tylenol in ED. Pt also received total of 1.25L NSS boluses in ED and BP improving. No longer tachycardic. CXR shows left PNA vs progressive of metastatic lung disease. EKG with anterior TWI, pt denies CP and trop negative. WBC 14.39. POC lactic acid negative. Sepsis/septic shock secondary to HCAP--improving -Admit to telemetry, transferred to ICU soon after due to persistent hypotension despite IVF. -Levophed stopped 04/16, BP remaining stable. Hgb also stable, transferred to med/surg 04/17 -Decrease steroids to Solu-Medrol 40 mg IV q12h -ESR and CRP elevated at 18 and 9.69 respectively. Procalcitonin WNL. Lactic acid negative. -O2 by protocol. Pt currently on 3L, less than his home requirement -ABG shows compensated hypercarbia likely due to COPD -Blood cultures NGTD x2 -Vancomycin and Zosyn IV. Day #4 of abx. Hold off on Levaquin as pt has been taking full course outpt. -DuoNebs QIDR and q2h prn SOB/wheezing Acute on chronic anemia, concern for acute blood loss--improving -Hgb down to 7.2, received 2 units PRBC on 04/16 -Hgb 8.3 on 04/18 -Fecal occult blood negative -Folate low, start folic acid 1 mg PO qd -Start Protonix 40 mg PO qd Hypomagnesemia, hypokalemia--improving -Magnesium 1.4 on admission -Magnesium 1.7 on 04/18, give mg sulfate 1 gm IV -Potassium 4.0 on 04/18 Metastatic lung cancer to liver and bone -Check noncontrast head CT to r/o brain mets as cause of recent confusion -Finished last chemo about 3 weeks ago, currently no active tx -Continue fentanyl patch 75 mcg TD q72h COPD exacerbation--ongoing -Taper IV steroids as above -Nebs as above -Continue Symbicort BID CAD, h/o CO s/p stents x 3, HLD--stable -Troponin negative x 3 -EKG this am shows possible inferior ST elevations, however I do not believe these truly meet criteria. Anterior TWI persist. H/o PE -Continue Lovenox 80 mg SC q12h H/o urinary retention -Continue Proscar 5 mg PO qd and Flomax 0.4 mg PO hs DVT prophylaxis -Enoxaparin 80 mg SC q12h -VIGNESH camilo and DEVONs Code Status -Level I, FULL RESUSCITATION STATUS -Attempted to speak to pt about code status and possible palliative care consult , but pt is not receptive to either right now and did not want to discuss either topic. He would rather discuss this at a later time, perhaps when he is feeling better from his current acute illness. Dr. Biggs spoke to pt encouraging him to think about code status. Dispo -From home, reports weakness -PT/OT evaluate and treat (Cady Dalton ., PA-C) PA Physician Supervision Note: I interviewed and examined the patient. Discussed with Cady Dalton PAC and agree with findings and plan as documented in the note. Any exceptions or clarifications are listed here: None 66 y/o male with a history of metastatic lung cancer to liver and bone, presented to the ER with concerns for sepsis as a CXR shows left PNA vs progressive of metastatic lung disease. pt states he feels improved from admission but not near his baseline is having issues sleeping due to concerns for feeling SOB vitals show continued need for oxygen supplementation Sepsis/septic shock secondary to HCAP--concern for gram negative organisms brief ICU stay and need for levaphed -Blood cultures NGTD x2 -Vancomycin and Zosyn IV. -DuoNebs QIDR and q2h prn SOB/wheezing Acute on chronic anemia, concern for acute blood loss, stable after transfusion of 2 units PRBC on 04/16 -Started Protonix 40 mg PO qd Hypomagnesemia, hypokalemia--replete Metastatic lung cancer to liver and bone last chemo about 3 weeks ago, currently no active tx -Continue fentanyl patch 75 mcg TD q72h for pain control from shiraz metastasis COPD exacerbation, improved taper steroids as able -Nebs Symbicort BID CAD, h/o [place] s/p stents x 3, HLD--stable -Troponin negative x 3, ecg non acute H/o PE Lovenox 80 mg SC q12h H/o urinary retention Proscar 5 mg PO qd and Flomax 0.4 mg PO hs DVT prophylaxis-Enoxaparin 80 mg SC q12h Code Status -Level I, FULL RESUSCITATION STATUS Documented By: Moo Anne (Moo Anne M.D.)
[2017-04-18] MEDS ORDERED: LORAZEPAM 2 MG/ML 1 ML VIAL IV PRN (16:30)
[2017-04-18] MEDS ORDERED: LORAZEPAM 0.5 MG TAB PO PRN (16:30)
[2017-04-18] MEDS ORDERED: VANCOMYCIN INJ 1,250 MG in SODIUM CHLORIDE 0.9% 250ML 250 ML IV SCH (18:00)
[2017-04-18] MEDS ORDERED: QUETIAPINE FUMARATE 25 MG TAB PO SCH (21:00)
[2017-04-18] MEDS: TAMSULOSIN HCL 0.4 MG CAP PO SCH (21:01)
[2017-04-18] MEDS: BENZONATATE 100MG CAP PO SCH (21:03)
[2017-04-19] VITALS (10 sets, daily range): BP systolic 113–151; BP diastolic 60–80; PULSE 55–76; TEMP 36.4–36.7; O2SAT 93–98
[2017-04-19 06:02] LABS: HEMATOCRIT 25.5 % (42-52); MEAN CELL VOLUME 102.8 fL (80-100); MEAN CORPUSCULAR HEMOGLOBIN 33.9 pg (25-34); MEAN CORPUSCULAR HGB CONC 32.9 g/dl (32-36); MEAN PLATELET VOLUME 9.2 fL (7.4-10.4); PLATELET COUNT 26 K/uL (130-400); RED BLOOD COUNT 2.48 M/uL (4.7-6.1); WHITE BLOOD COUNT 6.64 K/uL (4.8-10.8)
[2017-04-19] MEDS: CEFEPIME IV 2,000 MG in SYRINGE 7.5 ML IV SCH ×3 (06:03→22:14)
[2017-04-19 06:26] LABS: BLOOD UREA NITROGEN 17 mg/dl (7-18); BUN/CREATININE RATIO 49.9 (10-20); CALCIUM 8.7 mg/dl (8.5-10.1); CARBON DIOXIDE 40 mmol/L (21-32); CHLORIDE 100 mmol/L (98-107); CREATININE 0.35 mg/dl (0.60-1.40); GLUCOSE 97 mg/dl (70-99); MAGNESIUM 1.6 mg/dl (1.8-2.4); POTASSIUM 4.1 mmol/L (3.5-5.1); SODIUM 141 mmol/L (136-145)
[2017-04-19] MEDS: ALBUT/IPRATROP 3MG/0.5MG NEB 3 ML VIAL INH SCH ×4 (07:13→19:13)
[2017-04-19] MEDS ORDERED: FONDAPARINUX 2.5 MG/0.5 ML SYR SQ SCH (08:00)
[2017-04-19] MEDS: INSULIN ASPART 100 UNITS/ML 3 ML PEN SC SCH ×4 (08:09→20:19)
[2017-04-19] MEDS ORDERED: MAGNESIUM SULFATE 1GM / D5W 1 GM in PREMIXED IN D5W 100 ML IV ONE (08:15)
[2017-04-19] MEDS: FINASTERIDE 5 MG TAB PO SCH (08:28)
[2017-04-19] MEDS: PANTOprazole SOD 40 MG TAB PO SCH (08:28)
[2017-04-19] MEDS: METHYLPREDNISOLONE IV 40 MG in SYRINGE 0 ML IV SCH ×2 (08:28→20:23)
[2017-04-19] MEDS: BUDESONIDE/FORMOTEROL FUMARATE 160/4.5 60 PUFFS/INHALER INH SCH ×2 (08:28→19:44)
[2017-04-19] MEDS: FONDAPARINUX 2.5 MG/0.5 ML SYR SQ SCH (08:28)
[2017-04-19] MEDS: NYSTATIN SUSP 500,000 U/5 ML UDC PO SCH ×4 (08:29→19:44)
[2017-04-19] MEDS: CHECK FENTANYL PATCH PLACEMENT SCH ×2 (08:54→16:00)
--- NOTE | 2017-04-19 12:56 | Pharmacy Progress Note ---
Pharmacy Glycemic Sign Off Nt Date of Service Apr 19, 2017. Assessment & Plan ASSESSMENT: * Pharmacy was consulted by Dr Blanton on 04/15/17 for glycemic control and to write orders per [facility] inpatient glycemic control protocol. * Major changes made by pharmacy include: * Initiating weight based SQ basal bolus insulin regimen for stress/infection/ steroid induced hyperglycemia on 04/15 - 04/17 * Have been tapering regimen over the last 24hrs (04/18-04/19) as patient is not a diabetic and steroids/stress tapering. * Patient has been receiving/requiring 0 units of insulin per day for adequate glycemic control * BSGs ranging 92 - 140 mg/dl * Regimen has only required minor adjustments over the past 48hrs to achieve this level of control PLAN FOR INPATIENT GLYCEMIC CONTROL: No changes needed to current regimen. * No basal insulin needed * Continue NovoLog per scale ACHS/Q6hrs while NPO * Goal range = 110 - 140 mg/dl * CF = 40 mg/dl/unit * CR = 1 unit for ever -- g CHO consumed * Pharmacy is signing off of glycemic consult and will no longer be making adjustments to inpatient regimen. Please feel free to re-consult if needed. Thank you. DISCHARGE RECOMMENDATIONS: * A1c 5.1 % on 04/16/17 * This is normal. Pt is not diabetic. Hyperglycemia secondary to stress/ infection/steroids. Now resolved.
--- NOTE | 2017-04-19 16:13 | Progress Note ---
Subjective Date of Service: Apr 19, 2017. Subjective pt states he is feeling somewhat improved, he has no physical signs of thrombocytopenia. His breathing is improved, still feeling ativan works best for sleep, cough not yet productive Problem List Medical Problems: (1) Anemia Status: Acute (2) Bilateral pulmonary embolism Status: Acute (3) Bronchitis Status: Acute (4) Dehydration Status: Acute (5) Dehydration Status: Acute (6) Dysuria Status: Acute (7) Generalized weakness Status: Acute (8) Hematuria Status: Acute (9) Hematuria Status: Acute (10) Hematuria Status: Acute (11) Hypotension Status: Acute (12) Hypotension Status: Acute (13) Hypoxia Status: Chronic (14) Hypoxia Status: Acute (15) Hypoxia Status: Acute (16) Left rib fracture Status: Acute (17) Lung cancer Status: Acute (18) Mediastinal lymphadenopathy Status: Acute (19) Metastatic lung cancer (metastasis from lung to other site) Status: Acute (20) Neutropenia Status: Acute (21) Neutropenia Status: Acute (22) Non-traumatic compression fracture of T5 thoracic vertebra Status: Acute (23) Osteolytic 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 Status: Acute (24) Pathological fracture of rib of right side Status: Acute (25) Pulmonary nodules Status: Acute (26) SVT (supraventricular tachycardia) Status: Acute (27) Thrombocytopenia Status: Acute Review of Systems Constitutional: + weakness, No fever, No chills Respiratory: + cough, + shortness of breath, + dyspnea on exertion, No sputum Cardiac: No chest pain, No edema Abdomen: No pain, No nausea, No vomiting, No constipation Musculoskeletal: No joint pain, No muscle pain Male : No dysuria, No urinary frequency Psychiatric: + depression symptoms, No anhedonism Objective Vital Signs Date Time Temp Pulse Resp B/P (MAP) Pulse Ox O2 Delivery O2 Flow Rate FiO2 04/19/17 11:50 66 16 95 Nasal Cannula 3.0 04/19/17 11:49 36.5 70 18 121/71 (88) 94 3.0 04/19/17 09:30 Nasal Cannula 3.0 04/19/17 07:33 36.4 59 18 124/72 (89) 96 2.0 04/19/17 07:13 68 16 98 Nasal Cannula 3.0 04/19/17 03:39 36.7 60 18 130/67 (88) 94 Room Air 04/19/17 00:00 93 Nasal Cannula 4.0 04/18/17 23:02 36.7 74 20 136/71 (92) 92 Nasal Cannula 2.0 04/18/17 18:57 65 14 93 Nasal Cannula 3.0 04/18/17 18:56 36.6 65 19 125/61 (82) 93 Nasal Cannula 2.0 Physical Exam General Appearance: WD/WN, + mild distress Eyes: normal inspection, sclerae normal Neck: supple, no JVD Respiratory/Chest: + decreased breath sounds, + accessory muscle use, + rhonchi Cardiovascular: regular rate, rhythm, no murmur Abdomen: normal bowel sounds, non tender, soft Extremities: no pedal edema, no calf tenderness 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: alert, oriented x 3 Laboratory Results Last 24 Hours Test 04/18/17 16:13 04/18/17 20:49 04/19/17 05:44 04/19/17 07:41 Bedside Glucose 124 mg/dl 101 mg/dl 92 mg/dl White Blood Count 6.64 K/uL Red Blood Count 2.48 M/uL Hemoglobin 8.4 g/dL Hematocrit 25.5 % Mean Corpuscular Volume 102.8 fL Mean Corpuscular Hemoglobin 33.9 pg Mean Corpuscular Hemoglobin Concent 32.9 g/dl RDW Standard Deviation 79.0 fL RDW Coefficient of Variation 21.4 % Platelet Count 26 K/uL Mean Platelet Volume 9.2 fL Sodium Level 141 mmol/L Potassium Level 4.1 mmol/L Chloride Level 100 mmol/L Carbon Dioxide Level 40 mmol/L Anion Gap 0.0 mmol/L Blood Urea Nitrogen 17 mg/dl Creatinine 0.35 mg/dl Est Creatinine Clear Calc Drug Dose 214.4 ml/min Estimated GFR () > 150.0 Estimated GFR (Non- 130.8 BUN/Creatinine Ratio 49.9 Random Glucose 97 mg/dl Calcium Level 8.7 mg/dl Magnesium Level 1.6 mg/dl Test 04/19/17 08:36 04/19/17 11:47 Heparin-PF4 Antibody Screen NEG Bedside Glucose 99 mg/dl Assessment and Plan 66M with metastatic cancer, here with sepsis, pneumonia, anemia and thrombocytopenia Sepsis/septic shock secondary to HCAP--concern for gram negative organisms brief ICU stay and need for levaphed -Blood cultures negative-Vancomycin and cefipime IV. will deescalate to just cefipime 04/19 -DuoNebs QIDR and q2h prn SOB/wheezing Acute on chronic anemia, concern for acute blood loss, remains stable after transfusion of 2 units PRBC on 04/16 -Started Protonix 40 mg PO qd, Hypomagnesemia, hypokalemia--replete Metastatic lung cancer to liver and bone last chemo about 3 weeks ago, currently no active tx -Continue fentanyl patch 75 mcg TD q72h for pain control from shiraz metastasis COPD exacerbation, improved taper steroids as able -Nebs Symbicort BID CAD, h/o [place] s/p stents x 3, HLD--stable -Troponin negative x 3, ecg non acute H/o PE diagnosed 10/09/16, with low platelets did stop Lovenox 80 mg SC q12h, changed to prophylactic fondaparinux, but hit screen is negative, will keep fondaparinux H/o urinary retention no current symptoms Proscar 5 mg PO qd and Flomax 0.4 mg PO hs DVT prophylaxis-fondaparinux 2.5 mg sc daily Code Status -Level I, FULL RESUSCITATION STATUS
[2017-04-19] MEDS ORDERED: LORAZEPAM 1 MG TAB PO PRN (16:30)
[2017-04-19] MEDS: TAMSULOSIN HCL 0.4 MG CAP PO SCH (20:19)
[2017-04-19] MEDS: BENZONATATE 100MG CAP PO SCH (20:19)
[2017-04-19] MEDS ORDERED: TRAMADOL HCL 50 MG TAB PO ONE (20:30)
[2017-04-19] MEDS: LORAZEPAM INJ 0.5 MG in SYRINGE 0.75 ML IV PRN (22:14)
[2017-04-20] VITALS (11 sets, daily range): BP systolic 113–146; BP diastolic 63–81; PULSE 58–75; TEMP 36.3–36.8; O2SAT 93–100
[2017-04-20] MEDS: CEFEPIME IV 2,000 MG in SYRINGE 7.5 ML IV SCH ×3 (05:50→21:54)
[2017-04-20 06:27] LABS: BUN/CREATININE RATIO 37.7 (10-20); CALCIUM 8.4 mg/dl (8.5-10.1); CREATININE 0.44 mg/dl (0.60-1.40); MAGNESIUM 1.5 mg/dl (1.8-2.4)
[2017-04-20 06:30] LABS: HEMATOCRIT 27.7 % (42-52); MEAN CELL VOLUME 104.1 fL (80-100); MEAN CORPUSCULAR HEMOGLOBIN 33.5 pg (25-34); MEAN CORPUSCULAR HGB CONC 32.1 g/dl (32-36); MEAN PLATELET VOLUME 10.4 fL (7.4-10.4); PLATELET COUNT 27 K/uL (130-400); RED BLOOD COUNT 2.66 M/uL (4.7-6.1); WHITE BLOOD COUNT 6.12 K/uL (4.8-10.8)
[2017-04-20] MEDS: ALBUT/IPRATROP 3MG/0.5MG NEB 3 ML VIAL INH SCH ×4 (07:41→19:14)
[2017-04-20] MEDS: NYSTATIN SUSP 500,000 U/5 ML UDC PO SCH ×4 (08:13→20:13)
[2017-04-20] MEDS: METHYLPREDNISOLONE IV 40 MG in SYRINGE 0 ML IV SCH (08:13)
[2017-04-20] MEDS: FINASTERIDE 5 MG TAB PO SCH (08:13)
[2017-04-20] MEDS: PANTOprazole SOD 40 MG TAB PO SCH (08:13)
[2017-04-20] MEDS: BUDESONIDE/FORMOTEROL FUMARATE 160/4.5 60 PUFFS/INHALER INH SCH ×2 (08:13→20:13)
[2017-04-20] MEDS: FONDAPARINUX 2.5 MG/0.5 ML SYR SQ SCH (08:14)
[2017-04-20] MEDS: CHECK FENTANYL PATCH PLACEMENT SCH ×4 (08:19→23:06)
[2017-04-20] MEDS: INSULIN ASPART 100 UNITS/ML 3 ML PEN SC SCH ×4 (08:19→20:13)
--- NOTE | 2017-04-20 11:51 | Progress Note ---
Subjective Date of Service: Apr 20, 2017. Subjective Pt states he feels about 50% back to normal, has some martino and weakness with some cough, sleeping is better. Problem List Medical Problems: (1) Anemia Status: Acute (2) Bilateral pulmonary embolism Status: Acute (3) Bronchitis Status: Acute (4) Dehydration Status: Acute (5) Dehydration Status: Acute (6) Dysuria Status: Acute (7) Generalized weakness Status: Acute (8) Hematuria Status: Acute (9) Hematuria Status: Acute (10) Hematuria Status: Acute (11) Hypotension Status: Acute (12) Hypotension Status: Acute (13) Hypoxia Status: Chronic (14) Hypoxia Status: Acute (15) Hypoxia Status: Acute (16) Left rib fracture Status: Acute (17) Lung cancer Status: Acute (18) Mediastinal lymphadenopathy Status: Acute (19) Metastatic lung cancer (metastasis from lung to other site) Status: Acute (20) Neutropenia Status: Acute (21) Neutropenia Status: Acute (22) Non-traumatic compression fracture of T5 thoracic vertebra Status: Acute (23) Osteolytic 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 Status: Acute (24) Pathological fracture of rib of right side Status: Acute (25) Pulmonary nodules Status: Acute (26) SVT (supraventricular tachycardia) Status: Acute (27) Thrombocytopenia Status: Acute Review of Systems Constitutional: + weakness, + fatigue, No fever, No chills Respiratory: + cough, + sputum, + shortness of breath, + dyspnea on exertion Cardiac: No chest pain, No PND, No edema Abdomen: No pain, No nausea, No vomiting, No diarrhea Male : No dysuria, No urinary frequency Objective Vital Signs Date Time Temp Pulse Resp B/P (MAP) Pulse Ox O2 Delivery O2 Flow Rate FiO2 04/20/17 11:12 66 16 94 Nasal Cannula 3.0 04/20/17 11:06 36.6 69 16 118/68 (85) 95 Nasal Cannula 3.0 04/20/17 09:00 Nasal Cannula 3.0 04/20/17 07:41 60 16 93 Nasal Cannula 3.0 04/20/17 07:15 36.3 72 18 146/81 (102) 100 Nasal Cannula 3.0 04/20/17 04:44 36.5 58 19 117/72 (87) 98 Nasal Cannula 3.0 04/20/17 00:00 Nasal Cannula 3.0 04/19/17 23:20 36.7 76 20 151/80 (103) 94 Nasal Cannula 3.0 04/19/17 19:41 36.7 55 18 117/60 (79) 97 Nasal Cannula 4.0 04/19/17 19:15 68 16 96 Nasal Cannula 3.0 04/19/17 16:00 36.7 67 18 113/62 (79) 93 Nasal Cannula 4.0 04/19/17 16:00 93 Nasal Cannula 3.0 04/19/17 11:50 66 16 95 Nasal Cannula 3.0 04/19/17 11:49 36.5 70 18 121/71 (88) 94 3.0 Physical Exam General Appearance: WD/WN, + mild distress Eyes: normal inspection, sclerae normal Neck: supple, no JVD Respiratory/Chest: chest non-tender, + decreased breath sounds, + rhonchi Cardiovascular: regular rate, rhythm, no murmur Abdomen: normal bowel sounds, non tender, soft Extremities: no pedal edema, no calf tenderness 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: alert, oriented x 3 Laboratory Results Last 24 Hours Test 04/19/17 16:31 04/19/17 19:59 04/20/17 05:35 04/20/17 07:38 Bedside Glucose 139 mg/dl 113 mg/dl 83 mg/dl White Blood Count 6.12 K/uL Red Blood Count 2.66 M/uL Hemoglobin 8.9 g/dL Hematocrit 27.7 % Mean Corpuscular Volume 104.1 fL Mean Corpuscular Hemoglobin 33.5 pg Mean Corpuscular Hemoglobin Concent 32.1 g/dl RDW Standard Deviation 77.6 fL RDW Coefficient of Variation 20.9 % Platelet Count 27 K/uL Mean Platelet Volume 10.4 fL Sodium Level 136 mmol/L Potassium Level 4.0 mmol/L Chloride Level 95 mmol/L Carbon Dioxide Level 41 mmol/L Anion Gap 0.0 mmol/L Blood Urea Nitrogen 17 mg/dl Creatinine 0.44 mg/dl Est Creatinine Clear Calc Drug Dose 170.5 ml/min Estimated GFR () 137.9 Estimated GFR (Non- 119.0 BUN/Creatinine Ratio 37.7 Random Glucose 113 mg/dl Calcium Level 8.4 mg/dl Magnesium Level 1.5 mg/dl Assessment and Plan 66M with metastatic cancer, here with sepsis, pneumonia, anemia and thrombocytopenia Sepsis/septic shock secondary to HCAP--concern for gram negative organisms brief ICU stay and need for levaphed -Blood cultures negative-Vancomycin and Cefepime IV. will deescalate to just Cefepime 04/19 -DuoNebs QIDR and q2h prn SOB/wheezing Acute on chronic anemia, initial concern for acute blood loss, transfusion of 2 units PRBC on 04/16, hgb is hovering in the high 8's with lower platelets also but no active signs of bleeding -Started Protonix 40 mg PO qd, Thrombocytopenia concern for bone marrow involvement, will follow counts Hypomagnesemia additional iv repletion 04/20, hypokalemia--replete Metastatic lung cancer to liver and bone last chemo about 3 weeks ago, currently no active tx -Continue fentanyl patch 75 mcg TD q72h for pain control from shiraz metastasis COPD exacerbation,continue to taper steroids as able -Nebs Symbicort BID CAD, h/o [place] s/p stents x 3, HLD--stable -Troponin negative x 3, ecg non acute H/o PE diagnosed 10/09/16, with low platelets did stop Lovenox 80 mg SC q12h, changed to prophylactic fondaparinux, but hit screen is negative, will keep fondaparinux H/o urinary retention no current symptoms Proscar 5 mg PO qd and Flomax 0.4 mg PO hs DVT prophylaxis-fondaparinux 2.5 mg sc daily Code Status -Level I, FULL RESUSCITATION STATUS
[2017-04-20] MEDS ORDERED: TRAMADOL HCL 50 MG TAB PO PRN (14:00)
[2017-04-20] MEDS: TAMSULOSIN HCL 0.4 MG CAP PO SCH (20:13)
[2017-04-20] MEDS: BENZONATATE 100MG CAP PO SCH (20:13)
[2017-04-20] MEDS: LORAZEPAM INJ 0.5 MG in SYRINGE 0.75 ML IV PRN (23:06)
[2017-04-21] VITALS (7 sets, daily range): BP systolic 100–137; BP diastolic 61–75; PULSE 61–75; TEMP 36.3–36.6; O2SAT 92–100
[2017-04-21] MEDS: CEFEPIME IV 2,000 MG in SYRINGE 7.5 ML IV SCH (06:01)
[2017-04-21] MEDS: ALBUT/IPRATROP 3MG/0.5MG NEB 3 ML VIAL INH SCH ×2 (06:55→11:11)
[2017-04-21] MEDS ORDERED: ARXIS25 SQ (07:37)
[2017-04-21] MEDS ORDERED: PRED10TA PO (07:37)
[2017-04-21] MEDS ORDERED: ATV1 PO (07:37)
[2017-04-21] MEDS ORDERED: ULT50X PO (07:37)
[2017-04-21] MEDS ORDERED: CEFU500T16 PO (07:37)
--- NOTE | 2017-04-21 07:38 | Discharge Instructions ---
Discharge Instructions Date of Service Apr 21, 2017. Admission Reason for Admission: Acute On Chronic Respiratory Failure With.. Discharge Discharge Diagnosis / Problem: pneumonia, sepsis, copd Discharge Goals Goal(s): Diagnostic testing, Therapeutic intervention Activity Recommendations Activity Limitations: as noted below Lifting Limitations: gradually increase as tolerated . Current Hospital Diet Patient's current hospital diet: Diabetes Type 2 Diet Discharge Diet Recommended Diet: Regular Diet Pending Studies Studies pending at discharge: no Laboratory Results Hemoglobin A1c Test 04/16/17 08:22 Range/Units Estimated Average Glucose 100 mg/dl Hemoglobin A1c 5.1 4.5-5.6 % Medical Emergencies . Who to Call and When: Medical Emergencies: If at any time you feel your situation is an emergency, please call 911 immediately. . Non-Emergent Contact Non-Emergency issues call your: Primary Care Provider Call Non-Emergent contact if: temperature is above 101, your pain is unusual for you . . "Provider Documentation" section prepared by Moo Anne. . VTE Core Measure Inpt VTE Proph given/why not?: Other Anticoagulation, T.E.D. Stockings, SCD's
[2017-04-21] MEDS: NYSTATIN SUSP 500,000 U/5 ML UDC PO SCH ×2 (07:55→11:40)
[2017-04-21] MEDS: FONDAPARINUX 2.5 MG/0.5 ML SYR SQ SCH (07:55)
[2017-04-21] MEDS: PANTOprazole SOD 40 MG TAB PO SCH (07:55)
[2017-04-21] MEDS: BUDESONIDE/FORMOTEROL FUMARATE 160/4.5 60 PUFFS/INHALER INH SCH (07:55)
[2017-04-21] MEDS: FINASTERIDE 5 MG TAB PO SCH (07:55)
[2017-04-21] MEDS: CHECK FENTANYL PATCH PLACEMENT SCH (07:56)
[2017-04-21] MEDS: INSULIN ASPART 100 UNITS/ML 3 ML PEN SC SCH ×2 (08:01→11:32)
[2017-04-21] MEDS: FENTANYL 75 MCG/HR TDSY TD SCH (08:01)
[2017-04-21] MEDS: MAGNESIUM SULFATE 1GM / D5W 1 GM in PREMIXED IN D5W 100 ML IV SCH ×2 (08:09→09:00)
[2017-04-21 08:18] LABS: HEMATOCRIT 27.5 % (42-52); MEAN CELL VOLUME 104.6 fL (80-100); MEAN CORPUSCULAR HEMOGLOBIN 33.1 pg (25-34); MEAN CORPUSCULAR HGB CONC 31.6 g/dl (32-36); RED BLOOD COUNT 2.63 M/uL (4.7-6.1)
[2017-04-21 08:20] LABS: MEAN PLATELET VOLUME 10.9 fL (7.4-10.4); PLATELET COUNT 30 K/uL (130-400)
[2017-04-21 08:36] LABS: ANISOCYTOSIS PRESENT; EOS % 0.2 %; IG% 0.7 %; LARGE PLATELETS 1+; LYMPH % 6.1 %; LYMPH ABS # 0.37 K/uL (1.2-3.4); MONO % 6.7 %; NEUT % 86.3 %
[2017-04-21 08:37] LABS: COMPLETE YES
[2017-04-21] MEDS: FENTANYL PATCH REMOVE & WASTE SCH (08:41)
--- NOTE | 2017-04-21 09:07 | Discharge Instructions ---
Discharge Instructions Date of Service Apr 21, 2017. Admission Reason for Admission: Acute On Chronic Respiratory Failure With.. Discharge Discharge Diagnosis / Problem: pneumonia, sepsis, thrombocytopenia Discharge Goals Goal(s): Diagnostic testing, Therapeutic intervention Activity Recommendations Activity Limitations: as noted below Lifting Limitations: gradually increase as tolerated . Current Hospital Diet Patient's current hospital diet: Diabetes Type 2 Diet Discharge Diet Recommended Diet: Regular Diet Pending Studies Studies pending at discharge: no Laboratory Results Hemoglobin A1c Test 04/16/17 08:22 Range/Units Estimated Average Glucose 100 mg/dl Hemoglobin A1c 5.1 4.5-5.6 % Medical Emergencies . Who to Call and When: Medical Emergencies: If at any time you feel your situation is an emergency, please call 911 immediately. . Non-Emergent Contact Non-Emergency issues call your: Primary Care Provider, Oncologist Call Non-Emergent contact if: temperature is above 101, your pain is unusual for you . . "Provider Documentation" section prepared by Moo Anne. . VTE Core Measure Inpt VTE Proph given/why not?: Enoxaparin (Lovenox)SQ, Other Anticoagulation, T.E.D. Stockings, SCD's
--- NOTE | 2017-04-21 09:11 | Discharge Summary ---
Discharge Summary Date of Service Apr 21, 2017. Discharge Summary Admission Date: Apr 15, 2017 at 10:59 Discharge Date: Apr 21, 2017 Discharge Disposition: Home with services (follow up pneumonia and low platelet counts) Principal Diagnosis: pneumonia, sepsis, thrombocytopenia, metastatic adenocarcinoma of lung Problems/Secondary Diagnoses: (1) Hypoxia Status: Chronic Immunizations: Have You Had Influenza Vaccine: No History of Tetanus Vaccine?: No History of Pneumococcal: No History of Hepatitis B Vaccine: No Medication Reconciliation New Medications: Cefuroxime Axetil (Ceftin) 500 Mg Tab 500 MG PO BID, #10 TAB Enoxaparin (Lovenox) 40 Mg/0.4 Ml Inj 0.4 ML SQ DAILY for 365 Days, #30 SYR Prednisone Tab (Prednisone) 10 Mg Tab 10 MG PO UD, #42 TAB 4 a day x 4 days then 3 a day x 4 days then 2 a day x 4 days then 1 a day Lorazepam (Lorazepam) 1 Mg Tab 1 MG PO HS PRN for insomnia/anxiety, #30 TAB Tramadol HCl (Tramadol HCl) 50 Mg Tab 50 MG PO Q4H PRN for Pain, #20 TAB Continued Medications: Albuterol Sulfate (Proventil Hfa) 108 Mcg/Act Aer 2 PUFFS INH QID PRN for Wheezing Budesonide/Formoterol Fumarate (Symbicort 160/4.5 Inhaler ) Aero 2 PUFFS INH BID, INHALER Fentanyl (Fentanyl) 75 Mcg/Hr Dis 75 MCG TD CQ72HR Finasteride (Finasteride) 5 Mg Tab 5 MG PO QAM for 14 Days, #14 TAB Ipratropium-Albuterol (Combivent Respimat) 1 Aer Aer 1 PUFFS INH QID PRN for SOB/Wheezing, INH Tamsulosin HCl (Tamsulosin HCl) 0.4 Mg Cap 0.4 MG PO HS for 30 Days, #30 CAP Discontinued Medications: Enoxaparin (Lovenox) 80 Mg/0.8 Ml Inj 80 MG SQ Q12H, SYR Levofloxacin (Levofloxacin) 750 Mg Tab 750 MG PO DAILY@1300 for 5 Days, #5 TAB Prednisone (Prednisone) 10 Mg Tab 0 PO UD, #1 PKT STERAPRED 10MG 12 DAY Discharge Exam Review of Systems: Constitutional: No fever, No chills Respiratory: + cough, + sputum, + dyspnea on exertion, No wheezing, No shortness of breath, No dyspnea at rest Cardiovascular: No chest pain, No orthopnea, No edema Abdomen: No pain, No nausea, No diarrhea Physical Exam: General Appearance: WD/WN, + mild distress Eyes: normal inspection, sclerae normal Respiratory/Chest: chest non-tender, + rhonchi (few at bases that clear with cough) Cardiovascular: regular rate, rhythm, no murmur 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: alert, oriented x 3 Hospital Course 66M with metastatic cancer, here with sepsis, pneumonia, anemia and thrombocytopenia Sepsis/septic shock secondary to HCAP--concern for gram negative organisms brief ICU stay and need for levaphed -Blood cultures negative-Vancomycin and Cefepime IV.did deescalate to just Cefepime 04/19, has been improving will go home on ceftin bid -DuoNebs QIDR and q2h prn SOB/wheezing Acute on chronic anemia, initial concern for acute blood loss, transfusion of 2 units PRBC on 04/16, hgb is hovering in the high 8's with lower platelets also but no active signs of bleeding -Started Protonix 40 mg PO qd, Thrombocytopenia concern for bone marrow involvement, changed to prophylactic dose of fondoparinaux in the hospital but did not prove to be HIT, since is >6 months from PE but does have hypercoagulability of malignancy I phoned the pt to inform him to reduce lovenox to 40 mg a day once we could not Rx fondaparinux as an outpt. He will see Dr romano 04/22 and discuss Hypomagnesemia additional iv repletion, hypokalemia--replete Metastatic lung cancer to liver and bone last chemo about 3 weeks ago, currently no active tx -Continue fentanyl patch 75 mcg TD q72h for pain control from shiraz metastasis COPD exacerbation,continue to taper steroids as able -Nebs Symbicort BID CAD, h/o SD s/p stents x 3, HLD--stable -Troponin negative x 3, ecg non acute H/o PE diagnosed 10/09/16, with low platelets did stop Lovenox 80 mg SC q12h, changed to prophylactic fondaparinux, but hit screen is negative, will keep fondaparinux H/o urinary retention no current symptoms Proscar 5 mg PO qd and Flomax 0.4 mg PO hs DVT prophylaxis-fondaparinux 2.5 mg sc daily, pt states he gives injections at home -Level I, FULL RESUSCITATION STATUS Total Time Spent: Greater than 30 minutes This includes examination of the patient, discharge planning, medication reconciliation, and communication with other providers. Discharge Instructions Please refer to the electronic Patient Visit Report (Discharge Instructions) for additional information.
[2017-04-21] MEDS ORDERED: ENOX40IN SQ (18:30)
== END 2017-04-21 12:56 | disposition home health service (06) | DRG 871 ==
LOC: C.EDB 06:35 → C.2E 10:59 → ENRESERV 11:20 → EDBEDREQ 04-16 14:39 → CMPBEDREQ 04-16 14:47 → EDBEDREQ 04-17 14:12 → ENRESERV 04-17 14:46 → C.4E 04-17 16:30
PROVIDERS: ADMIT Internal Medicine; ATTEND Internal Medicine
DX: A41.9 Sepsis, unspecified organism (principal); J18.9 Pneumonia, unspecified organism; J96.21 Acute and chronic respiratory failure with hypoxia; J96.22 Acute and chronic respiratory failure with hypercapnia; E43 Unspecified severe protein-calorie malnutrition; J44.1 Chronic obstructive pulmonary disease with (acute) exacerbation; C34.90 Malignant neoplasm of unspecified part of unspecified bronchus or lung; D62 Acute posthemorrhagic anemia; C78.7 Secondary malignant neoplasm of liver and intrahepatic bile duct; C79.51 Secondary malignant neoplasm of bone; I25.10 Atherosclerotic heart disease of native coronary artery without angina pectoris; I25.2 Old myocardial infarction; E78.5 Hyperlipidemia, unspecified; Z86.718 Personal history of other venous thrombosis and embolism; Z87.891 Personal history of nicotine dependence; Z95.1 Presence of aortocoronary bypass graft; Z79.01 Long term (current) use of anticoagulants; Z79.52 Long term (current) use of systemic steroids; E83.42 Hypomagnesemia; Z95.5 Presence of coronary angioplasty implant and graft; D63.8 Anemia in other chronic diseases classified elsewhere; D69.6 Thrombocytopenia, unspecified; Z82.49 Family history of ischemic heart disease and other diseases of the circulatory system; I27.20 Pulmonary hypertension, unspecified; E87.6 Hypokalemia

== ENCOUNTER 2017-05-12 15:18 | Inpatient (IN) | payer OTHER ==
[2017-05-12] VITALS (7 sets, daily range): BP systolic 101–126; BP diastolic 50–60; PULSE 82–94; TEMP 36.7; O2SAT 93–95; BMI 26.6
[~2017-05-12] VITALS: Ht 177.8 cm; Wt 84.7 kg
[~2017-05-12 15:18] MED LIST changes: +ATV1 PO; +ENOX40IN SQ; -ENOX80IN SQ; +IPRA1AER2 INH; -LVQ750 PO; -MRP15 PO; +ULT50X PO
[2017-05-12] MEDS ORDERED: LEVALBUTEROL 1.25MG/3ML NEB INH ONE (16:00)
[2017-05-12] MEDS ORDERED: CEFEPIME IV 2,000 MG in DEXTROSE 5% 100ML 100 ML IV ONE (16:00)
[2017-05-12] MEDS ORDERED: LEVALBUTEROL 1.25MG/0.5ML NEB INH ONE ×2 (16:14→17:47)
--- NOTE | 2017-05-12 16:22 | EMERGENCY ROOM VISIT NOTE ---
History First contact with patient: 15:26 Chief Complaint: RESPIRATORY PROBLEMS Stated Complaint: CONGESTION, RESP. ISSUES Nursing Triage Summary: pt c/o sob and feeling congested. states he was here over Beti for PNA. pt states he is feeling foggy. per ALS, pt was dx w/ sepsis this Beti. History of Present Illness The patient is a 67 year old male who presents to the Emergency Room with complaints of fatigue, lethargy, shortness of breath and a cough. He has a history of metastatic lung cancer to his liver and bones, COPD, and CHF. His reported he was just admitted to the hospital a few weeks ago for pneumonia and finished his antibiotics and prednisone taper on Friday. She reports he was doing well on these medications, but over the weekend, he declined substantially. He states he feels short of breath, and has a cough, but states he is unable to bring up much phlegm, but denies the presence of blood in his phlegm. He is chronically on 3-3.5L of oxygen at home, and is generally able to ambulate and carry out ADLs by himself at baseline. He denies fever, chills, but states he has felt hot/cold over the last few days. He denies chest pain, n/v, leg swelling. He generally sleeps in a recliner as he is SOB lying flat. With regards to his lung cancer, he is not currently receiving chemotherapy. His last chemo was 1.5 months ago, and they stopped treating him because his hemoglobin and WCC counts would drop too low. He has had 3 stents placed in his heart in the past and has a history of CHF. Review of Systems See HPI for pertinent positives & negatives. A total of 10 systems reviewed and were otherwise negative. Past Medical/Surgical History Medical Problems: (1) Acute on chronic respiratory failure with hypoxia (2) Adenocarcinoma of unknown primary (3) COPD (chronic obstructive pulmonary disease) (4) Coronary artery disease (5) Hematuria (6) History of metastatic neoplastic disease (7) Hypoxia (8) Pancytopenia (9) Pneumonia (10) Pulmonary embolism, bilateral (11) Sepsis Surgical Problems: (1) History of total replacement of right hip Family History CABG Cancer Social History Smoking Status: Former Smoker Drug Use: none Marital Status: Housing Status: lives with significant other Occupation Status: retired Current/Historical Medications Scheduled Budesonide/Formoterol Fumarate (Symbicort 160/4.5 Inhaler ), 2 PUFFS INH BID Enoxaparin (Lovenox), 0.4 ML SQ DAILY Fentanyl (Fentanyl), 75 MCG TD CQ72HR Finasteride (Finasteride), 5 MG PO QAM Tamsulosin HCl (Tamsulosin HCl), 0.4 MG PO HS Scheduled PRN Albuterol Sulfate (Proventil Hfa), 2 PUFFS INH QID PRN for Wheezing Ipratropium-Albuterol (Combivent Respimat), 1 PUFFS INH QID PRN for SOB/Wheezing Lorazepam (Lorazepam), 1 MG PO HS PRN for insomnia/anxiety Tramadol HCl (Tramadol HCl), 50 MG PO Q4H PRN for Pain Physical Exam Vital Signs Date Time Temp Pulse Resp B/P (MAP) Pulse Ox O2 Delivery O2 Flow Rate FiO2 05/12/17 21:01 71 26 138/52 94 BiPAP 05/12/17 20:59 89 93 05/12/17 20:42 76 05/12/17 19:39 82 17 115/59 90 BiPAP 05/12/17 19:24 79 18 88 BiPAP 40 05/12/17 18:54 80 05/12/17 18:06 92 16 124/51 92 BiPAP 05/12/17 18:05 84 93 05/12/17 17:55 91 20 93 Nasal Cannula 3.0 05/12/17 17:48 93 Nasal Cannula 4.0 05/12/17 16:56 37.0 85 20 117/47 99 Oxymask 6.0 05/12/17 16:20 82 20 95 Mask 6.0 05/12/17 15:32 90 Oxymask 6.0 05/12/17 15:32 37.0 102 18 116/47 90 Oxymask 6.0 05/12/17 15:29 92 05/12/17 15:29 95 Oxymask 6.0 Physical Exam General: Ill appearing, on 6L of oxygen via oxymask HEENT: Head - normocephalic and atraumatic. Pupils are equal, round, and reactive to light. Extraocular eye muscles are intact and sclera are anicteric. Ears - bilaterally patent canals with noninjected tympanic membranes and no evidence of hemotympanum. Nose - moist nasal mucosa without discharge. Mouth - moist buccal mucosa. Oropharynx is nonerythematous and there is no tonsillar exudate or edema noted. Neck: Supple; no JVD, nuchal rigidity, cervical lymphadenopathy, or auscultated bruits. Heart: Regular rate and rhythm. There is a normal S1 and S2 with no murmurs, clicks, or gallops appreciated. Port present on left side of chest. Lungs: Decreased breath sounds bilaterally with rhonchi and wheezing present.. Abdomen: Soft, completely nontender, nondistended, with good bowel sounds. There is no guarding, rigidity, or rebound noted. Extremities: No evidence of cyanosis, clubbing, or edema. There are easily palpable peripheral pulses. Neuro:The patient is awake and alert, oriented to day, time, and place. Medical Decision & Procedures ER Provider Diagnostic Interpretation: SINGLE VIEW CHEST CLINICAL HISTORY: Cough. History of lung cancer. FINDINGS: 2 AP, portable, upright chest radiographs are compared to study dated 04/15/2017. Correlation is made with chest CT dated 03/31/2017. The examination is degraded by portable technique and patient rotation. A left subclavian central venous infusion port is unchanged in position. The heart is enlarged and there is atherosclerotic calcification of the thoracic aorta. The pulmonary vasculature is noncongested. Emphysema and chronic interstitial thickening are similar to previous. Numerous foci of pulmonary and pleural-based metastatic disease are again noted. 4 cine right hilum suggests adenopathy. No superimposed airspace consolidation or pleural effusion is identified. No pneumothorax is seen. The skeletal structures are osteopenic. Degenerative change is noted throughout the thoracic spine. Calcific tendinopathy is present in the right shoulder. IMPRESSION: 1. Cardiomegaly and emphysema. 2. Multifocal pulmonary and pleural-based metastatic disease is again noted. This was better characterized on the 03/31/[address] 3. There is no evidence of superimposed airspace consolidation or pleural effusion. Laboratory Results 05/12/17 16:30 Red Blood Count 2.53, Mean Corpuscular Volume 111.9, Mean Corpuscular Hemoglobin 34.8, Mean Corpuscular Hemoglobin Concent 31.1, Mean Platelet Volume 8.9, Neutrophils (%) (Auto) 62.8, Lymphocytes (%) (Auto) 14.9, Monocytes (%) ( Auto) 22.0, Eosinophils (%) (Auto) 0.0, Basophils (%) (Auto) 0.0, Neutrophils # (Auto) 2.06, Lymphocytes # (Auto) 0.49, Monocytes # (Auto) 0.72, Eosinophils # ( Auto) 0.00, Basophils # (Auto) 0.00 05/12/17 16:30 Test 05/12/17 16:30 05/12/17 18:17 05/12/17 20:25 White Blood Count 3.28 K/uL (4.8-10.8) Red Blood Count 2.53 M/uL (4.7-6.1) Hemoglobin 8.8 g/dL (14.0-18.0) Hematocrit 28.3 % (42-52) Mean Corpuscular Volume 111.9 fL (80-100) Mean Corpuscular Hemoglobin 34.8 pg (25-34) Mean Corpuscular Hemoglobin Concent 31.1 g/dl (32-36) Platelet Count 57 K/uL (130-400) Mean Platelet Volume 8.9 fL (7.4-10.4) Neutrophils (%) (Auto) 62.8 % Lymphocytes (%) (Auto) 14.9 % Monocytes (%) (Auto) 22.0 % Eosinophils (%) (Auto) 0.0 % Basophils (%) (Auto) 0.0 % Neutrophils # (Auto) 2.06 K/uL (1.4-6.5) Lymphocytes # (Auto) 0.49 K/uL (1.2-3.4) Monocytes # (Auto) 0.72 K/uL (0.11-0.59) Eosinophils # (Auto) 0.00 K/uL (0-0.5) Basophils # (Auto) 0.00 K/uL (0-0.2) RDW Standard Deviation 69.5 fL (36.4-46.3) RDW Coefficient of Variation 17.0 % (11.5-14.5) Immature Granulocyte % (Auto) 0.3 % Immature Granulocyte # (Auto) 0.01 K/uL (0.00-0.02) Platelet Estimate DECREASED Macrocytosis PRESENT Stomatocytes 2+ Prothrombin Time 11.1 SECONDS (9.0-12.0) Prothromb Time International Ratio 1.1 (0.9-1.1) Activated Partial Thromboplast Time 33.1 SECONDS (21.0-31.0) Partial Thromboplastin Ratio 1.3 Anion Gap -1.0 mmol/L (3-11) Est Creatinine Clear Calc Drug Dose 246.7 ml/min Estimated GFR () > 150.0 Estimated GFR (Non- 138.3 BUN/Creatinine Ratio 50.2 (10-20) Lactic Acid Level 0.3 mmol/L (0.4-2.0) Calcium Level 9.1 mg/dl (8.5-10.1) Total Bilirubin 0.4 mg/dl (0.2-1) Aspartate Amino Transf (AST/SGOT) 13 U/L (15-37) Alanine Aminotransferase (ALT/SGPT) 21 U/L (12-78) Alkaline Phosphatase 91 U/L (45-117) Troponin I < 0.015 ng/ml (0-0.045) Total Protein 6.4 gm/dl (6.4-8.2) Albumin 2.8 gm/dl (3.4-5.0) Globulin 3.6 gm/dl (2.5-4.0) Albumin/Globulin Ratio 0.8 (0.9-2) Influenza Type A Antigen Neg for Influ A (NEG) Influenza Type B Antigen Neg for Influ B (NEG) Arterial Blood pH 7.27 (7.35-7.45) Arterial Blood Partial Pressure CO2 104 mmHg (35-46) Arterial Blood Partial Pressure O2 54 mm/Hg (80-95) Arterial Blood HCO3 47 mmol/L (19-24) Arterial Blood Oxygen Saturation 83.0 % (90-95) Arterial Blood Base Excess 17.1 mEq/L (-9-1.8) Arterial Blood Gas Delivery 30% [place] Test POS (POS) Pass Blood Gas Sample Site R Radial Bedside Blood Gas pH (LAB) 7.26 (7.35-7.45) Bedside Blood Gas pCO2 (LAB) > 115 mmHg (35-46) Bedside Blood Gas pO2 (LAB) 60 mmHg (80-95) Bedside Blood Gas HCO3 (LAB) 53 meq/L (19-24) Bedside Blood Gas Total CO2 < 5 mEq/l (24-31) Bedside Blood Gas Base Excess (LAB) 26.0 meq/L (-9-1.8) Bedside Blood Gas O2 Saturation 83.0 % (90-95) Oxygen Delivery Device BIPAP Bedside Oxygen Rate (breaths/min) 12 Bedside FiO2 40 % Blood Gas IPAP 12 Medications Administered Medications (Trade) Dose Ordered Sig/Abbi Route Start Time Stop Time Status Last Admin Dose Admin Cefepime HCl 2000 mg/Dextrose 112.5 ml @ 200 mls/hr NOW ONCE IV 05/12/17 16:00 05/12/17 16:33 DC 05/12/17 16:59 200 MLS/HR Levalbuterol (Xopenex 1.25MG/ 3ML Neb) 1.25 mg ONE ONCE INH 05/12/17 16:00 05/12/17 16:01 DC 05/12/17 16:19 1.25 MG Levalbuterol (Xopenex 1.25MG/ 0.5ML Neb) 1.25 mg STK-MED ONCE INH 05/12/17 17:47 05/12/17 17:48 DC 05/12/17 17:55 1.25 MG ECG Indication: SOB/dyspnea Rate (beats per minute): 93 Rhythm: normal sinus Findings: no acute ischemic change ED Course 15:35: The patient was evaluated in room C2. A complete history and physical exam was performed. 15:50: The case was discussed with the attending, Dr. Barnes. 16:00: 2g IV cefepime and Xopenex nebulizers ordered 16:45: The patient was reassessed. He reports his breathing is slightly better after the nebulizers. 17:20: The patient was reassessed. He is stable. 17:45: I discussed the case with Dr. Cerrato, [facility] hospitalist who will evaluate the patient for admission. Medical Decision Etiologies such as pneumonia, COPD, bronchitis, CHF, cardiac ischemia, pneumothorax, infections, as well as others were entertained. Mr. Hagan is a 67 year old male with a history of metastatic lung cancer, COPD , and CHF who presents to the Emergency Room with complaints of fatigue, lethargy, shortness of breath and a cough. He received IV cefepime, Xopenex nebulizers, and was placed on 6L of oxygen via oxymask as his oxygen saturations dropped to 70s when on his regular home dose of 3L of oxygen. He did develop confusion whilst in the ED, and this resolved once he was placed on bipap and his oxygen level was titrated to 88-92%. His acute confusion was likely secondary to his chronic CO2 retention and over-oxygenation compared to his baseline. His acute on chronic hypoxic respiratory failure is likely multifactorial, related to his cancer, COPD, and possibly a viral bronchitis as well. He warrants admission and this was discussed with him and his . They were both in agreement. Impression Primary Impression: Acute on chronic respiratory failure with hypoxia Additional Impressions: Acute bronchitis Weakness Departure Information Dispostion Being Evaluated By Hospitalist Referrals Ann Olivas M.D. (PCP) Patient Instructions My [facility] Resident Tracking Resident Involvement: Resident Care Provided Care Provided: Adult ED Problem Qualifiers Additional Impressions: Acute bronchitis Bronchitis organism: unspecified organism Qualified Codes: J20.9 - Acute bronchitis, unspecified
--- NOTE | 2017-05-12 16:27 | EMERGENCY ROOM VISIT NOTE ---
History Report prepared by Deo: Eli Grimaldo Under the Supervision of: Dr. Marquez Barnes M.D. First contact with patient: 15:26 Chief Complaint: RESPIRATORY PROBLEMS Stated Complaint: CONGESTION, RESP. ISSUES Nursing Triage Summary: pt c/o sob and feeling congested. states he was here over Bet[facility] for PNA. pt states he is feeling foggy. per ALS, pt was dx w/ sepsis this Beti. History of Present Illness The patient is a 67 year old male who presents to the Emergency Room with complaints of worsening SOB starting 3 days ago. He presents to the ED by EMS. He had a duoneb on the way in. The patient has a history of lung cancer with metastases to the liver and brain. He was treated for pneumonia 2 weeks ago. He finished the antibiotics and prednisone 3 days ago. Since then, he has been declining. He seems confused and tired. He has been coughing and wheezing. He reports alternating between feeling hot and cold. He denies any hemoptysis, nausea, vomiting, abdominal pain, leg swelling, fever, or chills. He is normally on 3-3.5 L of oxygen at home. He is usually able to ambulate, but has been unable to recently. He is sleeping in a recliner due to his SOB. He has a history of COPD, CHF, and PE. He has 3 stents in his heart. He did not have a flu shot this year. He denies any history of arrhythmia. He currently is not on chemo. Of note, the patient was noted to be hypoxic by our nurses with his typical 3 L of O2. He was placed on a mask to supplement his low O2 value. Source of History: patient, spouse/significant other Onset: 3 days ago Position: other (global) Quality: other (SOB) Timing: worsening Associated Symptoms: + cough, + fatigue, No fevers, No chills, No nausea, No vomiting, No abdominal pain Note: Pt is confused, wheezing. Pt denies hemoptysis, leg swelling. Review of Systems See HPI for pertinent positives & negatives. A total of 10 systems reviewed and were otherwise negative. Past Medical & Surgical Medical Problems: (1) Acute on chronic respiratory failure with hypoxia (2) Adenocarcinoma of unknown primary (3) COPD (chronic obstructive pulmonary disease) (4) Coronary artery disease (5) Hematuria (6) History of metastatic neoplastic disease (7) Hypoxia (8) Pancytopenia (9) Pneumonia (10) Pulmonary embolism, bilateral (11) Sepsis Surgical Problems: (1) History of total replacement of right hip Family History CABG Cancer Social History Smoking Status: Former Smoker Drug Use: none Marital Status: Housing Status: lives with significant other Occupation Status: retired Current/Historical Medications Scheduled Budesonide/Formoterol Fumarate (Symbicort 160/4.5 Inhaler ), 2 PUFFS INH BID Enoxaparin (Lovenox), 0.4 ML SQ DAILY Fentanyl (Fentanyl), 75 MCG TD [id number] Finasteride (Finasteride), 5 MG PO QAM Tamsulosin HCl (Tamsulosin HCl), 0.4 MG PO HS Scheduled PRN Albuterol Sulfate (Proventil Hfa), 2 PUFFS INH QID PRN for Wheezing Ipratropium-Albuterol (Combivent Respimat), 1 PUFFS INH QID PRN for SOB/Wheezing Lorazepam (Lorazepam), 1 MG PO HS PRN for insomnia/anxiety Tramadol HCl (Tramadol HCl), 50 MG PO Q4H PRN for Pain Allergies Coded Allergies: No Known Allergies (Verified , 05/12/17) Physical Exam Vital Signs Date Time Temp Pulse Resp B/P (MAP) Pulse Ox O2 Delivery O2 Flow Rate FiO2 05/12/17 19:24 79 18 88 BiPAP 40 05/12/17 18:54 80 05/12/17 18:06 92 16 124/51 92 BiPAP 05/12/17 18:05 84 93 05/12/17 17:55 91 20 93 Nasal Cannula 3.0 05/12/17 17:48 93 Nasal Cannula 4.0 05/12/17 16:56 37.0 85 20 117/47 99 Oxymask 6.0 05/12/17 16:20 82 20 95 Mask 6.0 05/12/17 15:32 90 Oxymask 6.0 05/12/17 15:32 37.0 102 18 116/47 90 Oxymask 6.0 05/12/17 15:29 92 05/12/17 15:29 95 Oxymask 6.0 Physical Exam GENERAL: Patient is in no acute distress. HEENT: No acute trauma, normocephalic atraumatic, mucous membranes moist, no nasal congestion, no scleral icterus. NECK: No stridor, no adenopathy, no meningismus, trachea is midline. LUNGS: Significantly diminished breath sounds bilaterally, breath sounds equal, wheezing and rhonchi bilaterally. HEART: 3/6 systolic murmur with a slightly irregular rhythm and normal rate. ABDOMEN: Soft, nontender, bowel sounds positive, no hernias, no peritonitis. EXTREMITIES: No cyanosis or edema, full range of motion of all the joints without pain or difficulty, no signs for acute trauma. NEUROLOGIC: Oriented x 3, no acute motor or sensory deficits, no focal weakness. SKIN: No rash, no jaundice, no diaphoresis. Medical Decision & Procedures ER Provider Diagnostic Interpretation: X-ray results as stated below per interpretation by me and the radiologist: SINGLE VIEW CHEST CLINICAL HISTORY: Cough. History of lung cancer. FINDINGS: 2 AP, portable, upright chest radiographs are compared to study dated 04/15/2017. Correlation is made with chest CT dated 03/31/2017. The examination is degraded by portable technique and patient rotation. A left subclavian central venous infusion port is unchanged in position. The heart is enlarged and there is atherosclerotic calcification of the thoracic aorta. The pulmonary vasculature is noncongested. Emphysema and chronic interstitial thickening are similar to previous. Numerous foci of pulmonary and pleural-based metastatic disease are again noted. 4 cine right hilum suggests adenopathy. No superimposed airspace consolidation or pleural effusion is identified. No pneumothorax is seen. The skeletal structures are osteopenic. Degenerative change is noted throughout the thoracic spine. Calcific tendinopathy is present in the right shoulder. IMPRESSION: 1. Cardiomegaly and emphysema. 2. Multifocal pulmonary and pleural-based metastatic disease is again noted. This was better characterized on the 03/31/[address] 3. There is no evidence of superimposed airspace consolidation or pleural effusion. Electronically signed by: Marquez Cha M.D. 05/12/2017 4:29 PM Dictated Date/Time: 05/12/2017 4:27 PM Laboratory Results 05/12/17 16:30 Red Blood Count 2.53, Mean Corpuscular Volume 111.9, Mean Corpuscular Hemoglobin 34.8, Mean Corpuscular Hemoglobin Concent 31.1, Mean Platelet Volume 8.9, Neutrophils (%) (Auto) 62.8, Lymphocytes (%) (Auto) 14.9, Monocytes (%) ( Auto) 22.0, Eosinophils (%) (Auto) 0.0, Basophils (%) (Auto) 0.0, Neutrophils # (Auto) 2.06, Lymphocytes # (Auto) 0.49, Monocytes # (Auto) 0.72, Eosinophils # ( Auto) 0.00, Basophils # (Auto) 0.00 05/12/17 16:30 Test 05/12/17 16:30 05/12/17 18:17 White Blood Count 3.28 K/uL (4.8-10.8) Red Blood Count 2.53 M/uL (4.7-6.1) Hemoglobin 8.8 g/dL (14.0-18.0) Hematocrit 28.3 % (42-52) Mean Corpuscular Volume 111.9 fL (80-100) Mean Corpuscular Hemoglobin 34.8 pg (25-34) Mean Corpuscular Hemoglobin Concent 31.1 g/dl (32-36) Platelet Count 57 K/uL (130-400) Mean Platelet Volume 8.9 fL (7.4-10.4) Neutrophils (%) (Auto) 62.8 % Lymphocytes (%) (Auto) 14.9 % Monocytes (%) (Auto) 22.0 % Eosinophils (%) (Auto) 0.0 % Basophils (%) (Auto) 0.0 % Neutrophils # (Auto) 2.06 K/uL (1.4-6.5) Lymphocytes # (Auto) 0.49 K/uL (1.2-3.4) Monocytes # (Auto) 0.72 K/uL (0.11-0.59) Eosinophils # (Auto) 0.00 K/uL (0-0.5) Basophils # (Auto) 0.00 K/uL (0-0.2) RDW Standard Deviation 69.5 fL (36.4-46.3) RDW Coefficient of Variation 17.0 % (11.5-14.5) Immature Granulocyte % (Auto) 0.3 % Immature Granulocyte # (Auto) 0.01 K/uL (0.00-0.02) Platelet Estimate DECREASED Macrocytosis PRESENT Stomatocytes 2+ Prothrombin Time 11.1 SECONDS (9.0-12.0) Prothromb Time International Ratio 1.1 (0.9-1.1) Activated Partial Thromboplast Time 33.1 SECONDS (21.0-31.0) Partial Thromboplastin Ratio 1.3 Anion Gap -1.0 mmol/L (3-11) Est Creatinine Clear Calc Drug Dose 246.7 ml/min Estimated GFR () > 150.0 Estimated GFR (Non- 138.3 BUN/Creatinine Ratio 50.2 (10-20) Lactic Acid Level 0.3 mmol/L (0.4-2.0) Calcium Level 9.1 mg/dl (8.5-10.1) Total Bilirubin 0.4 mg/dl (0.2-1) Aspartate Amino Transf (AST/SGOT) 13 U/L (15-37) Alanine Aminotransferase (ALT/SGPT) 21 U/L (12-78) Alkaline Phosphatase 91 U/L (45-117) Troponin I < 0.015 ng/ml (0-0.045) Total Protein 6.4 gm/dl (6.4-8.2) Albumin 2.8 gm/dl (3.4-5.0) Globulin 3.6 gm/dl (2.5-4.0) Albumin/Globulin Ratio 0.8 (0.9-2) Influenza Type A Antigen Neg for Influ A (NEG) Influenza Type B Antigen Neg for Influ B (NEG) Arterial Blood pH 7.27 (7.35-7.45) Arterial Blood Partial Pressure CO2 104 mmHg (35-46) Arterial Blood Partial Pressure O2 54 mm/Hg (80-95) Arterial Blood HCO3 47 mmol/L (19-24) Arterial Blood Oxygen Saturation 83.0 % (90-95) Arterial Blood Base Excess 17.1 mEq/L (-9-1.8) Arterial Blood Gas Delivery 30% [place] Test POS (POS) Laboratory results reviewed by me. Medications Administered Medications (Trade) Dose Ordered Sig/Abbi Route Start Time Stop Time Status Last Admin Dose Admin Cefepime HCl 2000 mg/Dextrose 112.5 ml @ 200 mls/hr NOW ONCE IV 05/12/17 16:00 05/12/17 16:33 DC 05/12/17 16:59 200 MLS/HR Levalbuterol (Xopenex 1.25MG/ 3ML Neb) 1.25 mg ONE ONCE INH 1/8/18 16:00 05/12/17 16:01 DC 05/12/17 16:19 1.25 MG Levalbuterol (Xopenex 1.25MG/ 0.5ML Neb) 1.25 mg STK-MED ONCE INH 05/12/17 17:47 05/12/17 17:48 DC 05/12/17 17:55 1.25 MG ECG Indication: SOB/dyspnea Rate (beats per minute): 93 Rhythm: sinus rhythm Findings: PAC, no acute ischemic change ED Course 1554: The patient was evaluated in room C2B. A complete history and physical exam was performed. 1600: Levalbuterol 1.25 mg INH, Cefepime HCl 2000 mg/Dextrose 112.5 ml @ 200 mls /hr IV. 1743: Upon reexamination the patient is stable. I discussed results and treatment plan with the patient. He verbalizes agreement and understanding. The patient will be evaluated for further management. 1745: Discussed the patient's case [place] [facility] [place] The patient will be evaluated for further management. 1830: I reevaluated the patient. He is tolerating BiPAP. Medical Decision Differential diagnoses considered include pneumonia, bronchitis, CHF, cardiac ischemia, influenza, anemia, [place], electrolyte imbalance. There is a pancytopenia which is baseline for the patient. Renal panel testing shows an elevation to the CO2 consistent with respiratory failure-the patient does have a history of an elevation to the CO2. No kidney failure. Lactic acid level is not elevated making sepsis less likely. EKG shows a sinus rhythm with PACs, no acute ischemia. Cardiac enzyme testing times one is not consistent with acute cardiac injury. Influenza testing is negative. Chest x- ray shows chronic findings, no pneumonia or CHF. Blood cultures are pending. ABG shows evidence for a respiratory acidosis, CO2 was over 100. The patient presents with hypoxia, shortness of breath and fatigue. He received a Xopenex neb while in the ED. He was eventually placed on BiPAP and his oxygen saturation was titrated to around 88-90% to help with the CO2 retention. The patient received IV cefepime as antibiotic coverage. The patient has been aggressively cared for while in the ED. The patient presents hypoxic, short of breath. He is retaining CO2. He did develop a little confusion while here in the ED, likely from the high CO2 value. I do think a hospital stay is warranted. 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 The on-call hospitalist was consulted. I suspect the patient's hypoxia and dyspnea is multifactorial. Medication Reconcilliation Current Medication List: was personally reviewed by me Blood Pressure Screening Patient's blood pressure: Normal blood pressure Blood pressure disposition: Did not require urgent referral Consults Time Called: 174 Consulting Physician: Dr. Cerrato [facility] [place] Returned Call: [phone] Discussed the patient's case. The patient will be evaluated for further management. Impression Primary Impression: Hypoxia Additional Impressions: Weakness Acute bronchitis Metastatic lung cancer (metastasis from lung to other site) Critical Care I have personally spent greater than 38 minutes of critical care time in the direct management of this patient. This includes bedside care, interpretation of diagnostic studies, and testing, discussion with consultants, patient, and family members, and other required patient management activities. This 38 minutes is in excess of all separately billable procedures. Scribe Attestation The scribe's documentation has been prepared under my direction and personally reviewed by me in its entirety. I confirm that the note above accurately reflects all work, treatment, procedures, and medical decision making performed by me. Departure Information Dispostion Being Evaluated By Hospitalist Referrals Ann Olivas M.D. (PCP) Patient Instructions My [facility] Problem Qualifiers Additional Impressions: Acute bronchitis Bronchitis organism: unspecified organism Qualified Codes: J20.9 - Acute bronchitis, unspecified
--- NOTE | 2017-05-12 16:31 | DIAGNOSTIC IMAGING REPORT ---
SINGLE VIEW CHEST CLINICAL HISTORY: Cough. History of lung cancer. FINDINGS: 2 AP, portable, upright chest radiographs are compared to study dated 04/15/2017. Correlation is made with chest CT dated 03/31/2017. The examination is degraded by portable technique and patient rotation. A left subclavian central venous infusion port is unchanged in position. The heart is enlarged and there is atherosclerotic calcification of the thoracic aorta. The pulmonary vasculature is noncongested. Emphysema and chronic interstitial thickening are similar to previous. Numerous foci of pulmonary and pleural-based metastatic disease are again noted. 4 cine right hilum suggests adenopathy. No superimposed airspace consolidation or pleural effusion is identified. No pneumothorax is seen. The skeletal structures are osteopenic. Degenerative change is noted throughout the thoracic spine. Calcific tendinopathy is present in the right shoulder. IMPRESSION: 1. Cardiomegaly and emphysema. 2. Multifocal pulmonary and pleural-based metastatic disease is again noted. This was better characterized on the 03/31/[address] 3. There is no evidence of superimposed airspace consolidation or pleural effusion. Electronically signed by: Marquez Cha M.D. 05/12/2017 4:29 PM Dictated Date/Time: 05/12/2017 4:27 PM
[2017-05-12 16:41] LABS: HEMATOCRIT 28.3 % (42-52); HEMOGLOBIN 8.8 g/dL (14.0-18.0); MEAN CELL VOLUME 111.9 fL (80-100); MEAN CORPUSCULAR HEMOGLOBIN 34.8 pg (25-34); MEAN CORPUSCULAR HGB CONC 31.1 g/dl (32-36); RED CELL DISTRIBUTION WIDTH SD 69.5 fL (36.4-46.3); WHITE BLOOD COUNT 3.28 K/uL (4.8-10.8)
[2017-05-12 16:56] LABS: INR 1.1 (0.9-1.1); PTT PATIENT 33.1 SECONDS (21.0-31.0)
[2017-05-12 16:57] LABS: ALBUMIN 2.8 gm/dl (3.4-5.0); ALT/SGPT 21 U/L (12-78); AST/SGOT 13 U/L (15-37); BLOOD UREA NITROGEN 15 mg/dl (7-18); CALCIUM 9.1 mg/dl (8.5-10.1); GLUCOSE 104 mg/dl (70-99); POTASSIUM 4.5 mmol/L (3.5-5.1); SODIUM 136 mmol/L (136-145)
[2017-05-12 17:01] LABS: ALKALINE PHOSPHATASE 91 U/L (45-117); TOTAL PROTEIN 6.4 gm/dl (6.4-8.2)
[2017-05-12 17:07] LABS: CARBON DIOXIDE 47 mmol/L (21-32); IG# 0.01 K/uL (0.00-0.02); LYMPH % 14.9 %; LYMPH ABS # 0.49 K/uL (1.2-3.4); MEAN PLATELET VOLUME 8.9 fL (7.4-10.4); MONO ABS # 0.72 K/uL (0.11-0.59); NEUT % 62.8 %; NEUT ABS # 2.06 K/uL (1.4-6.5); PLATELET COUNT 57 K/uL (130-400)
[2017-05-12 17:19] LABS: INFLUENZA B ANTIGEN Neg for Influ B (NEG)
[2017-05-12] MEDS ORDERED: ALBUTEROL HFA 8 GM INHALER INH PRN (21:45)
[2017-05-12] MEDS ORDERED: IPRATROPIUM BROMIDE/ALBUTEROL respimat INH INH PRN (21:45)
[2017-05-12] MEDS ORDERED: ICU PROTOCOL FOR HYPERGLYCEMIA PRN (21:45)
[2017-05-12] MEDS ORDERED: ONDANSETRON INJ 2 MG/ML 2 ML VIAL IV PRN (21:45)
[2017-05-12] MEDS ORDERED: ALBUT/IPRATROP 3MG/0.5MG NEB 3 ML VIAL INH PRN (21:45)
--- NOTE | 2017-05-12 21:52 | History and Physical ---
History & Physical Date & Time of Service: May 12, 2017 at 21:52 Chief Complaint: Congestion, Resp. Issues Primary Care Physician: Ann Olivas M.D. History of Present Illness Source: patient, partner, hospital records The patient is a 67-year-old male with PMH including metastatic lung cancer to liver and bones, COPD and CHF, who presents to the emergency room with fatigue, lethargy, shortness of breath and a cough. He's had a recent hospital admission for pneumonia and has needed outpatient antibiotics and prednisone taper 4 days ago. His significant other reports that after the medications were completed, he progressively worsened the next few days, which was over the weekend, in spite of his usual 3 to 3 1/2 liters of oxygen at home, and was having difficulty performing his ADLs, was repeatedly falling asleep during the day, and thus was brought into the ED for assessment. During the examination, the patient continually falls asleep, he is able to be awoken with prompting and is able to converse intermittently. Past Medical/Surgical History Medical Problems: (1) Adenocarcinoma of unknown primary Permanent Comment: Metastatic disease to bone, liver, lungs Status post completion of radiation therapy to T5, right second and third ribs. Completed 11/14/2016. He received 3000 cGy. Status: Chronic (2) COPD (chronic obstructive pulmonary disease) Status: Chronic (3) Coronary artery disease Status: Chronic (4) Hypoxia Status: Chronic (5) Pulmonary embolism, bilateral Status: Chronic (6) Sepsis Status: Resolved Family History CABG Cancer Social History Smoking Status: Former Smoker Smokeless Tobacco Use: No Alcohol Use: none Drug Use: none Marital Status: Housing status: lives with significant other Occupational Status: retired Immunizations History of Influenza Vaccine: No History of Tetanus Vaccine?: No History of Pneumococcal: No History of Hepatitis B Vaccine: No Multi-Drug Resistant Organisms History of MDRO: No Allergies Coded Allergies: No Known Allergies (Verified , 05/12/17) Home Medications Scheduled Budesonide/Formoterol Fumarate (Symbicort 160/4.5 Inhaler ), 2 PUFFS INH BID Enoxaparin (Lovenox), 0.4 ML SQ DAILY Fentanyl (Fentanyl), 75 MCG TD [id number] Finasteride (Finasteride), 5 MG PO QAM Tamsulosin HCl (Tamsulosin HCl), 0.4 MG PO HS Scheduled PRN Albuterol Sulfate (Proventil Hfa), 2 PUFFS INH QID PRN for Wheezing Ipratropium-Albuterol (Combivent Respimat), 1 PUFFS INH QID PRN for SOB/Wheezing Lorazepam (Lorazepam), 1 MG PO HS PRN for insomnia/anxiety Tramadol HCl (Tramadol HCl), 50 MG PO Q4H PRN for Pain Review of Systems The patient denies chest pain, palpitations, lower extremity swelling, vision change, hearing change, sore throat, fevers, chills, sweats, weight change, fatigue, nausea, vomiting, diarrhea or constipation, abdominal pain, pelvic pain, blood in urine or stool, dysuria, urinary frequency or urgency, rash, abnormal bruising or bleeding, focal or generalized weakness, generalized arthralgias or myalgias, back or neck pain, or night sweats. The review of systems is otherwise negative other than for that already noted above, and at least 10 systems have been reviewed. Physical Exam Vital Signs Date Time Temp Pulse Resp B/P (MAP) Pulse Ox O2 Delivery O2 Flow Rate FiO2 05/12/17 21:01 71 26 138/52 94 BiPAP 05/12/17 20:59 89 93 05/12/17 20:42 76 05/12/17 19:39 82 17 115/59 90 BiPAP 05/12/17 19:24 79 18 88 BiPAP 40 05/12/17 18:54 80 05/12/17 18:06 92 16 124/51 92 BiPAP 05/12/17 18:05 84 93 05/12/17 17:55 91 20 93 Nasal Cannula 3.0 05/12/17 17:48 93 Nasal Cannula 4.0 05/12/17 16:56 37.0 85 20 117/47 99 Oxymask 6.0 05/12/17 16:20 82 20 95 Mask 6.0 05/12/17 15:32 90 Oxymask 6.0 05/12/17 15:32 37.0 102 18 116/47 90 Oxymask 6.0 05/12/17 15:29 92 05/12/17 15:29 95 Oxymask 6.0 The patient is intermittently awake, alert and oriented 3, but falls asleep easily, normocephalic and atraumatic, lying in bed and in no acute distress. HEENT--PERRL, EOMI, mucous membranes and oropharynx dry. Neck--supple, no JVD or bruits, thyroid normal, trachea midline, no adenopathy. Heart--normal S1 and S2, no extra beats, no murmurs, rubs or gallops. Lungs--decreased breath sounds at the bases bilaterally, no respiratory distress , no accessory muscle use. Abdomen--normal bowel sounds and soft, nontender and nondistended, no hernias or masses, no organomegaly. Extremities--no cyanosis, clubbing or edema. There are good distal pulses b/l. Dermatologic--normal skin turgor, normal color, warm and dry, no abnormal lymph nodes, no rash. Neurologic--cranial nerves II through XII grossly intact. Rheumatologic--normal range of motion. Psychiatric--normal affect. Diagnostics Laboratory Results Results Past 24 Hours Test 05/12/17 16:30 05/12/17 18:17 05/12/17 20:25 Range/Units White Blood Count 3.28 4.8-10.8 K/uL Red Blood Count 2.53 4.7-6.1 M/uL Hemoglobin 8.8 14.0-18.0 g/dL Hematocrit 28.3 42-52 % Mean Corpuscular Volume 111.9 80-100 fL Mean Corpuscular Hemoglobin 34.8 25-34 pg Mean Corpuscular Hemoglobin Concent 31.1 32-36 g/dl Platelet Count 57 130-400 K/uL Mean Platelet Volume 8.9 7.4-10.4 fL Neutrophils (%) (Auto) 62.8 % Lymphocytes (%) (Auto) 14.9 % Monocytes (%) (Auto) 22.0 % Eosinophils (%) (Auto) 0.0 % Basophils (%) (Auto) 0.0 % Neutrophils # (Auto) 2.06 1.4-6.5 K/uL Lymphocytes # (Auto) 0.49 1.2-3.4 K/uL Monocytes # (Auto) 0.72 0.11-0.59 K/uL Eosinophils # (Auto) 0.00 0-0.5 K/uL Basophils # (Auto) 0.00 0-0.2 K/uL RDW Standard Deviation 69.5 36.4-46.3 fL RDW Coefficient of Variation 17.0 11.5-14.5 % Immature Granulocyte % (Auto) 0.3 % Immature Granulocyte # (Auto) 0.01 0.00-0.02 K/uL Platelet Estimate DECREASED Macrocytosis PRESENT Stomatocytes 2+ Prothrombin Time 11.1 9.0-12.0 SECONDS Prothromb Time International Ratio 1.1 0.9-1.1 Activated Partial Thromboplast Time 33.1 21.0-31.0 SECONDS Partial Thromboplastin Ratio 1.3 Sodium Level 136 136-145 mmol/L Potassium Level 4.5 3.5-5.1 mmol/L Chloride Level 90 98-107 mmol/L Carbon Dioxide Level 47 21-32 mmol/L Anion Gap -1.0 3-11 mmol/L Blood Urea Nitrogen 15 7-18 mg/dl Creatinine 0.30 0.60-1.40 mg/dl Est Creatinine Clear Calc Drug Dose 246.7 ml/min Estimated GFR () > 150.0 Estimated GFR (Non- 138.3 BUN/Creatinine Ratio 50.2 10-20 Random Glucose 104 70-99 mg/dl Lactic Acid Level 0.3 0.4-2.0 mmol/L Calcium Level 9.1 8.5-10.1 mg/dl Total Bilirubin 0.4 0.2-1 mg/dl Aspartate Amino Transf (AST/SGOT) 13 15-37 U/L Alanine Aminotransferase (ALT/SGPT) 21 12-78 U/L Alkaline Phosphatase 91 45-117 U/L Troponin I < 0.015 0-0.045 ng/ml Total Protein 6.4 6.4-8.2 gm/dl Albumin 2.8 3.4-5.0 gm/dl Globulin 3.6 2.5-4.0 gm/dl Albumin/Globulin Ratio 0.8 0.9-2 Influenza Type A Antigen Neg for Influ A NEG Influenza Type B Antigen Neg for Influ B NEG Arterial Blood pH 7.27 7.35-7.45 Arterial Blood Partial Pressure CO2 104 35-46 mmHg Arterial Blood Partial Pressure O2 54 80-95 mm/Hg Arterial Blood HCO3 47 19-24 mmol/L Arterial Blood Oxygen Saturation 83.0 90-95 % Arterial Blood Base Excess 17.1 -9-1.8 mEq/L Arterial Blood Gas Delivery 30% [place] Test POS Pass Blood Gas Sample Site R Radial Bedside Blood Gas pH (LAB) 7.26 7.35-7.45 Bedside Blood Gas pCO2 (LAB) > 115 35-46 mmHg Bedside Blood Gas pO2 (LAB) 60 80-95 mmHg Bedside Blood Gas HCO3 (LAB) 53 19-24 meq/L Bedside Blood Gas Total CO2 < 5 24-31 mEq/l Bedside Blood Gas Base Excess (LAB) 26.0 -9-1.8 meq/L Bedside Blood Gas O2 Saturation 83.0 90-95 % Oxygen Delivery Device BIPAP Bedside Oxygen Rate (breaths/min) 12 Bedside FiO2 40 % Blood Gas IPAP 12 Microbiology Results 05/12/17 Blood Culture, Received Pending 05/12/17 Blood Culture, Received Pending Diagnostic Radiology SINGLE VIEW CHEST CLINICAL HISTORY: Cough. History of lung cancer. FINDINGS: 2 AP, portable, upright chest radiographs are compared to study dated 04/15/2017. Correlation is made with chest CT dated 03/31/2017. The examination is degraded by portable technique and patient rotation. A left subclavian central venous infusion port is unchanged in position. The heart is enlarged and there is atherosclerotic calcification of the thoracic aorta. The pulmonary vasculature is noncongested. Emphysema and chronic interstitial thickening are similar to previous. Numerous foci of pulmonary and pleural-based metastatic disease are again noted. 4 cine right hilum suggests adenopathy. No superimposed airspace consolidation or pleural effusion is identified. No pneumothorax is seen. The skeletal structures are osteopenic. Degenerative change is noted throughout the thoracic spine. Calcific tendinopathy is present in the right shoulder. IMPRESSION: 1. Cardiomegaly and emphysema. 2. Multifocal pulmonary and pleural-based metastatic disease is again noted. This was better characterized on the 03/31/[address] 3. There is no evidence of superimposed airspace consolidation or pleural effusion. Electronically signed by: Marquez Cha M.D. 05/12/2017 4:29 PM Dictated Date/Time: 05/12/2017 4:27 PM The status of this report is Signed. Draft = Not yet reviewed or approved by Radiologist. Signed = Reviewed and approved by Radiologist. EKG EKG #1 shows atrial fibrillation at 99 beats minute, with nonspecific ST-T changes EKG #2 shows normal sinus rhythm at 93 bpm, with no acute ST-T changes Impression Assessment and Plan Acute on chronic respiratory failure with hypoxia and hypercapnia-- The patient will be admitted to the ICU due to worsening hypercapnia with PCO2 of 104 worsening to 116 in spite of being on BiPAP. His significant other who is with him, does not have the already to determine his CODE STATUS, this will need to be decided by conversation with family including daughter and brother. Place on Solu-Medrol IV, vancomycin IV and Zosyn IV, and do nebs Continue BiPAP with increasing IPAP/EPAP and continue the FiO2 at a relative minimum. Consults filenet admin. Cardiac rhythm-- Initial EKG shows atrial fibrillation, with follow-up showing normal sinus rhythm. CT of head has not yet been performed, followed medically stable should be considered for an MRI of the brain Would consult cardiology regarding appropriate prophylaxis in his current situation Metastatic lung disease to liver and bones-- Treatment on hold during acute process. Pain management-- Continue fentanyl 75 g a 72 hour intervals BPH-- Resume finasteride and tamsulosin when patient is more alert, and the need for monitor for urinary retention, he may require a [place] Level of Care Critical Care Advanced Directives Existing Advance Directive: No Existing Living Will: No Existing Power of Political Director: No Resuscitation Status FULL NO MECH VENTILATION VTE Prophylaxis VTE Risk Assessment Done? Y/N: Yes Risk Level: Moderate Given or contraindicated: SCD's Social Service Consult Cancer Patient Under [place]
[2017-05-12] MEDS ORDERED: PIPERACILLIN/TAZOBACTAM 4.5 GM/100ML D5W IV STA (22:03)
[2017-05-12] MEDS ORDERED: VANCOMYCIN 1GM/270ML NSS IV ONE (22:30)
[2017-05-12] MEDS ORDERED: VANCOMYCIN CONSULT ACTIVE PRN (22:45)
[2017-05-12] MEDS ORDERED: PIPERACILL/TAZOBAC CONSULT ACTIVE PRN (22:45)
--- NOTE | 2017-05-12 22:48 | Critical Care Consultation ---
Critical Care Consultation Date of Consultation: May 12, 2017. Attending Physician: Justin Palacios M.D. Reason for Consultation: 67-year-old male with acute on chronic hypercapnic respiratory failure and CO2 narcosis requiring noninvasive ventilatory techniques with concerns for progressing to invasive ventilatory support. History of Present Illness Patient is a 67-year-old male admitted to the ICU for concerns of acute on chronic hypercapnic respiratory failure with CO2 narcosis requiring noninvasive ventilatory techniques with close monitoring for progression to need for invasive ventilation. Per ED documentation and records, patient noted to have progressively worsening shortness of breath since Friday. He was unable to wake for most of the day on Friday. On Friday, his breathing was felt to have improved. He had a doctor's appointment with his oncologist on Friday and his "numbers" were felt to be within normal limits. He had scheduled an appointment with his primary care provider this coming Friday. Today, he was scheduled to have an appointment with an oral surgeon, but had to cancel and come to the emergency department secondary to worsening shortness of breath. He was unable to ambulate from the couch to the truck as he became too short of breath. EMS was contacted the patient was brought emergently to the emergency department. On presentation, the patient is leukopenic. He has a stable H&H from prior visits. His platelet count is 57,000 which appears to be up from his baseline. Initial ABG was concerning with a pH of 7.27, PCO2 104, PO2 54, bicarbonate of 47. His O2 saturations remained in the low 80s. Patient was placed on BiPAP and repeat ABGs had not improved. Patient was felt to have declined mentally secondary to CO2 narcosis. On evaluation, majority of history is provided by the patient's significant other. She reports that the patient was recently diagnosed with adenocarcinoma of the lung. He had underwent chemotherapy, however due to a recent episode of sepsis secondary to pneumonia, he has foregone recent treatments. Had recent appointment with Dr. Biggs, the patient's oncologist, a lengthy discussion was had in regards to CODE STATUS. This has not been discussed per patient's significant other. She does report that his health has declined since Friday. He has been lethargic and sleeping most of the day. She did increase his home oxygen 5 L secondary to increasing work of breathing. She reports that he was too short of breath to walk into the truck so EMS was contacted. Upon arrival, she reports that he was communicative, however shortly after, he began sleeping and minimally responsive. She reports that they live together, but are unmarried. She is not designated as his DURABLE POWER OF COAL HAULER OPERATOR at this point. Patient's daughter and brother are the closest members of family to make these decisions. Patient is a former smoker. No chronic alcohol use noted. No recent long- distance travel. No noted hemoptysis, nausea, vomiting, fevers, productive cough, complete chest pain, or recent exposures to upper respiratory illnesses. Past Medical/Surgical History Medical Problems: (1) Acute on chronic respiratory failure with hypoxia (2) Acute respiratory failure with hypoxia and hypercapnia (3) Adenocarcinoma of unknown primary (4) COPD (chronic obstructive pulmonary disease) (5) Coronary artery disease (6) Hematuria (7) History of metastatic neoplastic disease (8) Hypoxia (9) Pancytopenia (10) Pneumonia (11) Pulmonary embolism, bilateral (12) Sepsis Surgical Problems: (1) History of total replacement of right hip Family History CABG Cancer Noncontributory Social History Smoking Status: Former Smoker Alcohol Use: none Drug Use: none Marital Status: in relationship Housing Status: lives with significant other Occupation Status: retired Allergies Coded Allergies: No Known Allergies (Verified , 05/12/17) Home Medications Scheduled Budesonide/Formoterol Fumarate (Symbicort 160/4.5 Inhaler ), 2 PUFFS INH BID Enoxaparin (Lovenox), 0.4 ML SQ DAILY Fentanyl (Fentanyl), 75 MCG TD [id number] Finasteride (Finasteride), 5 MG PO QAM Tamsulosin HCl (Tamsulosin HCl), 0.4 MG PO HS Scheduled PRN Albuterol Sulfate (Proventil Hfa), 2 PUFFS INH QID PRN for Wheezing Ipratropium-Albuterol (Combivent Respimat), 1 PUFFS INH QID PRN for SOB/Wheezing Lorazepam (Lorazepam), 1 MG PO HS PRN for insomnia/anxiety Tramadol HCl (Tramadol HCl), 50 MG PO Q4H PRN for Pain Current Inpatient Medications Current Inpatient Medications Medications (Trade) Dose Ordered Sig/Abbi Route Start Time Stop Time Status Last Admin Dose Admin Enoxaparin Sodium (Lovenox Inj) 40 mg Q24H SQ 05/12/17 23:00 06/11/17 22:59 UNV Sodium Chloride 1,000 ml @ 50 mls/hr Q20H IV 05/12/17 21:42 06/11/17 21:41 Ondansetron HCl (Zofran Inj) 4 mg Q6H PRN IV 05/12/17 21:45 06/11/17 21:44 Pantoprazole Sodium 40 mg/ Syringe 10 ml @ 5 mls/min DAILY@1100 IV 05/13/17 11:00 05/16/17 11:01 Albuterol/ Ipratropium (Duoneb) 3 ml Q6R PRN INH 05/12/17 21:45 06/11/17 21:44 Miscellaneous Information (Icu Protocol For Hyperglycemia) 1 ea PRN PRN N/A 05/12/17 21:45 05/14/17 21:44 Albuterol (Ventolin Hfa Inhaler) 2 puffs QID PRN INH 05/12/17 21:45 06/11/17 21:44 Budesonide/ Formoterol Fumarate (Symbicort 160/ 4.5 Inh) 2 puffs BID INH 05/13/17 09:00 06/12/17 08:59 Finasteride (Proscar Tab) 5 mg QAM PO 05/13/17 09:00 06/12/17 08:59 Albuterol/ Ipratropium (Combivent Respimat Inh) 1 puffs QID PRN INH 05/12/17 21:45 06/11/17 21:44 Tamsulosin HCl (Flomax Cap) 0.4 mg HS PO 05/13/17 21:00 06/12/17 20:59 Methylprednisolone Sodium Succinate 40 mg/Syringe 0.64 ml @ 1.5 mls/min Q8 IV 05/12/17 23:00 06/11/17 22:59 Vancomycin HCl 1250 mg/Sodium Chloride 275 ml @ 125 mls/hr Q10H IV 05/13/17 08:00 05/19/17 23:59 Levofloxacin 750 mg/Prmx 150 ml @ 100 mls/hr Q24H IV 05/13/17 01:00 05/20/17 00:59 Vancomycin HCl 2000 mg/Sodium Chloride 500 ml @ 200 mls/hr NOW ONCE IV 05/12/17 23:00 05/13/17 01:29 Piperacillin Sod/ Tazobactam Sod 4.5 gm/Dextrose 120 ml @ 200 mls/hr TODAY@2300 IV 05/12/17 23:00 05/13/17 02:00 Piperacillin Sod/ Tazobactam Sod 4.5 gm/Dextrose 120 ml @ 30 mls/hr Q8H IV 05/13/17 04:00 05/19/17 23:59 Vancomycin HCl (Consult) 1 ea UD PRN N/A 05/12/17 22:45 06/11/17 22:44 Piperacillin Sod/ Tazobactam Sod (Consult) 1 ea UD PRN N/A 05/12/17 22:45 06/11/17 22:44 Review of Systems A complete 10-point Review of Systems was discussed with the patient, with pertinent positives and negatives listed in the History of Present Illness. All remaining Review of Systems questions can be considered negative unless otherwise specified. Physical Exam Date Time Temp Pulse Resp B/P (MAP) Pulse Ox O2 Delivery O2 Flow Rate FiO2 05/12/17 21:55 84 20 127/69 89 Room Air 05/12/17 21:01 71 26 138/52 94 BiPAP 05/12/17 20:59 89 93 05/12/17 20:42 76 05/12/17 19:39 82 17 115/59 90 BiPAP 05/12/17 19:24 79 18 88 BiPAP 40 05/12/17 18:54 80 05/12/17 18:06 92 16 124/51 92 BiPAP 05/12/17 18:05 84 93 05/12/17 17:55 91 20 93 Nasal Cannula 3.0 05/12/17 17:48 93 Nasal Cannula 4.0 05/12/17 16:56 37.0 85 20 117/47 99 Oxymask 6.0 05/12/17 16:20 82 20 95 Mask 6.0 05/12/17 15:32 90 Oxymask 6.0 05/12/17 15:32 37.0 102 18 116/47 90 Oxymask 6.0 05/12/17 15:29 92 05/12/17 15:29 95 Oxymask 6.0 VITAL SIGNS - Vital signs and nursing notes were reviewed. GENERAL - 67-year-old male appearing his stated age who is in mild distress. Lethargic and sleeping, but does rouse and carry on conversations when stimulated. HEAD - NC/AT. EYES - PERRL with EOMI bilaterally. Sclera anicteric. Palpebral conjunctiva pink and moist with no injection noted. EARS - No deformities of external structures noted on gross examination bilaterally. NOSE - Midline and without cyanosis. MOUTH/OROPHARYNX - Without perioral cyanosis. Buccal mucosa pink and moist and without leukoplakia. NECK - Neck with FROM. Supple to palpation. LUNGS - Chest wall symmetric without accessory muscle use, intercostals retractions, or central cyanosis. Distant breath sounds bilaterally. No wheezes , rales, or rhonchi noted. CARDIAC - RRR with S1/S2. No murmur, rubs, or gallops appreciated. No reproducible tenderness to palpation appreciated over the anterior chest wall. ABDOMEN - Abdominal contour obese and without pulsations or visible masses. BS normoactive all four quadrants. No tenderness, palpable masses, hepatosplenomegaly, or ascites noted. EXTREMITIES - +3/5 radial and dorsalis pedis pulses palpated throughout. +5/5 strength noted in UE/LE bilaterally. NEUROLOGIC - Cranial nerves II through XII grossly intact. Sensory intact to light touch throughout. PSYCH - A&Ox3 and cooperates fully with examiner. Lethargic, but dose respond and carry on appropriate conversation after painful stimuli. Laboratory Results Last 24 Hours Test 05/12/17 16:30 05/12/17 18:17 05/12/17 20:25 05/12/17 21:42 White Blood Count 3.28 K/uL Red Blood Count 2.53 M/uL Hemoglobin 8.8 g/dL Hematocrit 28.3 % Mean Corpuscular Volume 111.9 fL Mean Corpuscular Hemoglobin 34.8 pg Mean Corpuscular Hemoglobin Concent 31.1 g/dl Platelet Count 57 K/uL Mean Platelet Volume 8.9 fL Neutrophils (%) (Auto) 62.8 % Lymphocytes (%) (Auto) 14.9 % Monocytes (%) (Auto) 22.0 % Eosinophils (%) (Auto) 0.0 % Basophils (%) (Auto) 0.0 % Neutrophils # (Auto) 2.06 K/uL Lymphocytes # (Auto) 0.49 K/uL Monocytes # (Auto) 0.72 K/uL Eosinophils # (Auto) 0.00 K/uL Basophils # (Auto) 0.00 K/uL RDW Standard Deviation 69.5 fL RDW Coefficient of Variation 17.0 % Immature Granulocyte % (Auto) 0.3 % Immature Granulocyte # (Auto) 0.01 K/uL Platelet Estimate DECREASED Macrocytosis PRESENT Stomatocytes 2+ Prothrombin Time 11.1 SECONDS Prothromb Time International Ratio 1.1 Activated Partial Thromboplast Time 33.1 SECONDS Partial Thromboplastin Ratio 1.3 Sodium Level 136 mmol/L Potassium Level 4.5 mmol/L Chloride Level 90 mmol/L Carbon Dioxide Level 47 mmol/L Anion Gap -1.0 mmol/L Blood Urea Nitrogen 15 mg/dl Creatinine 0.30 mg/dl Est Creatinine Clear Calc Drug Dose 246.7 ml/min Estimated GFR () > 150.0 Estimated GFR (Non- 138.3 BUN/Creatinine Ratio 50.2 Random Glucose 104 mg/dl Lactic Acid Level 0.3 mmol/L Calcium Level 9.1 mg/dl Total Bilirubin 0.4 mg/dl Aspartate Amino Transf (AST/SGOT) 13 U/L Alanine Aminotransferase (ALT/SGPT) 21 U/L Alkaline Phosphatase 91 U/L Troponin I < 0.015 ng/ml Total Protein 6.4 gm/dl Albumin 2.8 gm/dl Globulin 3.6 gm/dl Albumin/Globulin Ratio 0.8 Influenza Type A Antigen Neg for Influ A Influenza Type B Antigen Neg for Influ B Arterial Blood pH 7.27 Arterial Blood Partial Pressure CO2 104 mmHg Arterial Blood Partial Pressure O2 54 mm/Hg Arterial Blood HCO3 47 mmol/L Arterial Blood Oxygen Saturation 83.0 % Arterial Blood Base Excess 17.1 mEq/L Arterial Blood Gas Delivery 30% [place] Test POS Pass Blood Gas Sample Site R Radial Bedside Blood Gas pH (LAB) 7.26 Bedside Blood Gas pCO2 (LAB) > 115 mmHg Bedside Blood Gas pO2 (LAB) 60 mmHg Bedside Blood Gas HCO3 (LAB) 53 meq/L Bedside Blood Gas Total CO2 < 5 mEq/l Bedside Blood Gas Base Excess (LAB) 26.0 meq/L Bedside Blood Gas O2 Saturation 83.0 % Oxygen Delivery Device BIPAP Bedside Oxygen Rate (breaths/min) 12 Bedside FiO2 40 % Blood Gas IPAP 12 Test 05/12/17 22:00 Diagnostic Results Radiological imaging and reports were reviewed by myself. Radiologist's Interpretation as follows: SINGLE VIEW CHEST CLINICAL HISTORY: Cough. History of lung cancer. FINDINGS: 2 AP, portable, upright chest radiographs are compared to study dated 04/15/2017. Correlation is made with chest CT dated 03/31/2017. The examination is degraded by portable technique and patient rotation. A left subclavian central venous infusion port is unchanged in position. The heart is enlarged and there is atherosclerotic calcification of the thoracic aorta. The pulmonary vasculature is noncongested. Emphysema and chronic interstitial thickening are similar to previous. Numerous foci of pulmonary and pleural-based metastatic disease are again noted. 4 cine right hilum suggests adenopathy. No superimposed airspace consolidation or pleural effusion is identified. No pneumothorax is seen. The skeletal structures are osteopenic. Degenerative change is noted throughout the thoracic spine. Calcific tendinopathy is present in the right shoulder. IMPRESSION: 1. Cardiomegaly and emphysema. 2. Multifocal pulmonary and pleural-based metastatic disease is again noted. This was better characterized on the 03/31/[address] 3. There is no evidence of superimposed airspace consolidation or pleural effusion. Assessment & Plan (1) CO2 narcosis (2) Acute respiratory failure with hypoxia and hypercapnia (3) Metastatic lung cancer (metastasis from lung to other site) (4) Acute on chronic respiratory failure with hypoxia (5) Weakness (6) Pulmonary embolism, bilateral Reason Critically Ill: 67-year-old male with acute on chronic hypercapnic respiratory failure and CO2 narcosis requiring noninvasive ventilatory techniques with concerns for progressing to invasive ventilatory support. Neuro - * CAM ICU: NEGATIVE * CO2 Narcosis - improving w/ correction of respiratory failure. * Will hold Ultram/Ativan and any other sedating mediations in the setting of narcosis. Cardiac - * h/o CAD, HTN: * EKG w/ NSR@93bpm & QTc of 432ms. * Continue home Rx. * EKGs for Chest Pain. * Monitor on telemetry. * Trend troponins. Respiratory - * Acute on Chronic Hypercapnic Respiratory Failure with Hypoxia and CO2 Narcosis : * BiPAP - 16/5/40% * Serial ABGs. * Consider Intubation if not improving. * Aggressive Pulmonary toilet. * Recent Pneumonia/Sepsis - will cover with antibiotics in the acutely ill setting for possible early pneumonia. * Serial CXRs. * IV Steroids. * Nebs. * Adenocarcinoma of the Lungs: * Poor prognosis w/ underlying disease states. * Appreciate Oncology input. * h/o PEs: * Currently on Lovenox 40mg sq daily - will continue. * Patient's responsiveness and lack of acuity of symptoms does not lend itself to PE, however f/u CTA could be considered if s/s not improving. GI - * Prophylaxis w/ Protonix. * NPO while requiring BiPAP RENAL/LYTES - * Monitor electrolytes, replace appropriately. - * No Mccarty Catheter at this time. ENDO - * No h/o DM or Tyroid Disease. * BSGs per protocol w/ ISS/gtt per protocols. HEME - * Stable anemia - likely of chronic disease. * Will monitor for drop in H&H in the setting of hypoxia. * Consider transfusion for added oxygen stores in the acutely ill phase. ID - * Acute Bronchitis w/ concerns for recent Pneumonia w/ Sepsis: * Cover aggressively w/ Vanc, Zosyn, Levaquin in the acutely ill phase - scale down as s/s improve. * Serial CXRs. * Will trend Lactate/ProCal * Blood Cxs pending. * Will add sputum cultures. LINES/IV ACCESS - * PIVs intact. DVT PROPHYLAXIS - * Continue Lovenox 40mg sq daily per home dose. * SCDs CODE STATUS - * After admission, the patient had significantly improved with aggressive noninvasive ventilatory techniques. He was able to contribute to conversation. At this point, the patient recognizes the gravity of his condition and worsening state with significant underlying lung pathology. Family including daughter (Mabel Hagan), brother (Ming Hagan) and significant other (Julita Wong) are present and contribute to discussion as well. At this point, the patient does not wish to undergo intubation with mechanical ventilation in the event that his condition were to worsen. In addition, the patient would not want to have compressions performed or have medications provided in the event that his heart were to stop. He would electively go cardioversion only. At this point, the patient was made FULL CODE NO MECHANICAL VENTILATION or CARDIOVASCULAR DRUGS. At this point, I might encourage Palliative care consultation/referral. I have personally spent 45 minutes of critical care time in the direct management of this patient. This is a life/limb threatening event. This includes time spent evaluating patient, direct bedside care, chart review, placing orders, interpretation of diagnostic studies, discussion with consultants, patient, and family members, as well as other required patient management activities. This time is exclusive of all separately billable procedures, and teaching time and separate from and in addition to any other critical care service time. Thank you for this consultation allow us to be part of this patient's care. Please refer to my attending physician's documentation for any further recommendations. Resident Physician Supervision Note: I was present with Contreras Cunha PA-C during the history and exam. I discussed the case with him and agree with the findings and plan as documented in the note. Any exceptions or clarifications are listed here: Patient with metastatic lung adenocarcinoma, admitted for acute on chronic respiratory failure with hypoxia and hypercapnia. 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 Continue steroids, bronchodilators Empiric Abx for 48 hours, de-escalate/discontinue if no evidence of an infectious process. Procalcitonin is negative CT chest reviewed, shows worsening pulmonary metastatic disease and possibly liver involvement as well. DVT prophylaxis: Lovenox Documented By: Berto Hines MD
--- NOTE | 2017-05-12 22:51 | Pharmacy Progress Note ---
Pharmacy Abx Initial Consult Date of Service May 12, 2017. Pharmacy Dosing Scope Date of Consult: 05/12/17 Consultation requested by: Contreras Cunha Pharmacy is consulted to initiate Zosyn/Vancomycin IV dosing therapy, order appropriate labs and adjust drug dose/frequency. Subjective The patient is a 67 year old male admitted on May 12, 2017 at 21:36. Objective Height (Feet): 5 Height (Inches): 10.00 Weight (Kilograms): 84.100 Vital Signs (Past 12Hrs) Vital Signs Past 12 Hours Date Time Temp Pulse Resp B/P (MAP) Pulse Ox O2 Delivery O2 Flow Rate FiO2 05/12/17 21:55 84 20 127/69 89 Room Air 05/12/17 21:01 71 26 138/52 94 BiPAP 05/12/17 20:59 89 93 05/12/17 20:42 76 05/12/17 19:39 82 17 115/59 90 BiPAP 05/12/17 19:24 79 18 88 BiPAP 40 05/12/17 18:54 80 05/12/17 18:06 92 16 124/51 92 BiPAP 05/12/17 18:05 84 93 05/12/17 17:55 91 20 93 Nasal Cannula 3.0 05/12/17 17:48 93 Nasal Cannula 4.0 05/12/17 16:56 37.0 85 20 117/47 99 Oxymask 6.0 05/12/17 16:20 82 20 95 Mask 6.0 05/12/17 15:32 90 Oxymask 6.0 05/12/17 15:32 37.0 102 18 116/47 90 Oxymask 6.0 05/12/17 15:29 92 05/12/17 15:29 95 Oxymask 6.0 Lab Results (24Hrs) Laboratory Tests (24 Hours) Test 05/12/17 16:30 05/12/17 21:42 White Blood Count 3.28 K/uL (4.8-10.8) L Red Blood Count 2.53 M/uL (4.7-6.1) L Hemoglobin 8.8 g/dL (14.0-18.0) L Hematocrit 28.3 % (42-52) L Mean Corpuscular Volume 111.9 fL (80-100) H Mean Corpuscular Hemoglobin 34.8 pg (25-34) H Mean Corpuscular Hemoglobin Concent 31.1 g/dl (32-36) L Platelet Count 57 K/uL (130-400) L Mean Platelet Volume 8.9 fL (7.4-10.4) Neutrophils (%) (Auto) 62.8 % Lymphocytes (%) (Auto) 14.9 % Monocytes (%) (Auto) 22.0 % Eosinophils (%) (Auto) 0.0 % Basophils (%) (Auto) 0.0 % Neutrophils # (Auto) 2.06 K/uL (1.4-6.5) Lymphocytes # (Auto) 0.49 K/uL (1.2-3.4) L Monocytes # (Auto) 0.72 K/uL (0.11-0.59) H Eosinophils # (Auto) 0.00 K/uL (0-0.5) Basophils # (Auto) 0.00 K/uL (0-0.2) Micro Results Date/Time Source Procedure Growth Status 05/12/17 16:43 Blood Blood Culture Pending Received 05/12/17 16:30 Blood Blood Culture Pending Received 05/12/17 22:45 Nasal MRSA DNA Surveillance Screen Pending Received Risk Factors for Resistance * Hospitalization for 48 hours or more within the past 90 days * Immunocompromised (cancer) * Antimicrobial use within the last 90 days Assessment & Plan Assessment 67 year old male with a PMH of cancer, COPD, and CAD admitted with worsening pulmonary function Plan vancomycin/Zosyn for treatment of pulmonary infection Vancomycin IV * Loading dose: 2000 mg (25 mg/kg) * Maintenance dose: 1250 mg IV (14.88 mg/kg) every 10 hours (based upon previous patient specific pharmacokinetics) * Goal trough level for pulmonary function : 15 to 20 mcg/mL * Trough ordered for 05/14/17 prior to 0400 dose Piperacillin/tazobactam * 4.5 g bolus administered over 30 minutes, then 4.5 g IV extended infusion every 8 hours for CrCl greater than 20 mL/min * Aggressive dosing selected due to critically ill status. Pharmacy will continue to follow and will adjust dose/frequency as necessary. Thank you.
[2017-05-12] MEDS ORDERED: PIPERACILL/TAZOBAC IV 4.5 GM in DEXTROSE 5% 100ML 100 ML IV SCH (23:00)
[2017-05-12] MEDS ORDERED: VANCOMYCIN INJ 2,000 MG in SODIUM CHLORIDE 0.9% 500ML 500 ML IV ONE (23:00)
[2017-05-12 23:10] LABS: ISTAT POTASSIUM 4.5 mEq/L (3.3-5.0); ISTAT SODIUM 137 mEq/L (135-144)
[2017-05-12 23:40] LABS: PHOSPHORUS 2.9 mg/dl (2.5-4.9)
[2017-05-12] MEDS: METHYLPREDNISOLONE IV 40 MG in SYRINGE 0 ML IV SCH (23:41)
[2017-05-12] MEDS: SODIUM CHLORIDE 0.9% 1000ML 1,000 ML IV SCH (23:45)
[2017-05-13] VITALS (25 sets, daily range): BP systolic 90–126; BP diastolic 47–75; PULSE 57–91; TEMP 36.4–36.8; O2SAT 90–100; Ht 177.8 cm; Wt 84.7 kg
[2017-05-13] MEDS ORDERED: MAGNESIUM SULFATE 1GM / D5W 1 GM in PREMIXED IN D5W 100 ML IV STA ×2 (00:03→08:40)
[2017-05-13] MEDS: LEVOFLOXACIN / D5W 750 MG in PREMIXED IN D5W 150 ML IV SCH (00:44)
[2017-05-13 00:51] LABS: INFLUENZA A PCR Neg for Influ A (NEG); INFLUENZA B PCR Neg for Influ B (NEG)
[2017-05-13] MEDS: PIPERACILL/TAZOBAC IV 4.5 GM in DEXTROSE 5% 100ML 100 ML IV SCH ×3 (03:46→20:09)
[2017-05-13 06:02] LABS: HEMOGLOBIN 8.3 g/dL (14.0-18.0); MEAN CELL VOLUME 110.2 fL (80-100); MEAN CORPUSCULAR HEMOGLOBIN 35.2 pg (25-34); MEAN CORPUSCULAR HGB CONC 31.9 g/dl (32-36); RED CELL DISTRIBUTION WIDTH SD 68.4 fL (36.4-46.3)
[2017-05-13 06:03] LABS: MEAN PLATELET VOLUME 9.2 fL (7.4-10.4); PLATELET COUNT 48 K/uL (130-400)
[2017-05-13] MEDS: METHYLPREDNISOLONE IV 40 MG in SYRINGE 0 ML IV SCH ×3 (06:07→22:21)
[2017-05-13 06:09] LABS: INR 1.1 (0.9-1.1); PTT PATIENT 31.2 SECONDS (21.0-31.0)
[2017-05-13 06:35] LABS: BLOOD UREA NITROGEN 16 mg/dl (7-18); CALCIUM 9.1 mg/dl (8.5-10.1); CREATININE 0.41 mg/dl (0.60-1.40); GLUCOSE 136 mg/dl (70-99); POTASSIUM 4.8 mmol/L (3.5-5.1); SODIUM 135 mmol/L (136-145)
[2017-05-13 06:41] LABS: IG# 0.01 K/uL (0.00-0.02); LYMPH % 8.8 %; LYMPH ABS # 0.23 K/uL (1.2-3.4); MONO ABS # 0.13 K/uL (0.11-0.59); NEUT % 85.8 %; NEUT ABS # 2.23 K/uL (1.4-6.5); PHOSPHORUS 3.2 mg/dl (2.5-4.9)
--- NOTE | 2017-05-13 07:18 | DIAGNOSTIC IMAGING REPORT ---
CHEST ONE VIEW PORTABLE CLINICAL HISTORY: lung CA/hypoxia dyspnea COMPARISON STUDY: 05/12/2017 FINDINGS: Bilateral metastatic disease is similar. Central catheter remains this. Vena cava. Potential superimposed infiltrative process right base. Diaphragms are suboptimally seen. IMPRESSION: 1. Diffuse metastatic disease considered stable. 2. Probable parenchymal infiltrate right base. The above report was generated using voice recognition software. It may contain grammatical, syntax or spelling errors. Electronically signed by: Colby Martinez M.D. 05/13/2017 7:16 AM Dictated Date/Time: 05/13/2017 7:16 AM
[2017-05-13] MEDS: VANCOMYCIN INJ 1,250 MG in SODIUM CHLORIDE 0.9% 250ML 250 ML IV SCH ×2 (07:55→18:22)
[2017-05-13] MEDS: FINASTERIDE 5 MG TAB PO SCH (07:56)
[2017-05-13] MEDS: BUDESONIDE/FORMOTEROL FUMARATE 160/4.5 60 PUFFS/INHALER INH SCH ×2 (07:56→20:10)
[2017-05-13] MEDS: ENOXAPARIN 40 MG/0.4 ML SYR SQ SCH (07:57)
[2017-05-13] MEDS ORDERED: DEXTROSE 50% 50 ML SYR IV PRN (09:45)
[2017-05-13] MEDS ORDERED: GLUCAGON FOR INJ 1 MG VIAL SQ PRN (09:45)
[2017-05-13] MEDS ORDERED: GLUCOSE 40% GEL 15 GM TUBE PO PRN (09:45)
[2017-05-13] MEDS ORDERED: GLUCOSE 10 TABS/TUBE PO PRN (09:45)
[2017-05-13] MEDS ORDERED: OPTIRAY 320 IV PRN (10:15)
--- NOTE | 2017-05-13 10:23 | Progress Note ---
Subjective Date of Service: May 13, 2017. Subjective Pt evaluation today including: conversation w/ patient, conversation w/ family , physical exam, lab review, review of studies, conversation w/ senior internet sales consultant, review of inpatient medication list Pain: denies pain PO Intake: ready to eat breakfast Voiding: no voiding problems patient doing much better this morning compared to admission, alert, conversive no respiratory distress discussed with dairy laboratory technician and Dr. Biggs going to give a trial off of BIPAP for breakfast Dr. Biggs recommends a CT chest, likely leaning towards hospice right now his COPD is so severe and more problematic than his cancer reviewed labs, pH improved to 7.33, CO2 trending down slowly, Cr stable, CBC stable (chronic pancytopenia) Problem List Medical Problems: (1) Acute bronchitis Status: Acute (2) Acute on chronic respiratory failure with hypoxia Status: Acute (3) Acute respiratory failure with hypoxia and hypercapnia Status: Acute (4) Anemia Status: Acute (5) Bilateral pulmonary embolism Status: Acute (6) Bronchitis Status: Acute (7) CO2 narcosis Status: Acute (8) Dehydration Status: Acute (9) Dehydration Status: Acute (10) Dysuria Status: Acute (11) Generalized weakness Status: Acute (12) Hematuria Status: Acute (13) Hematuria Status: Acute (14) Hematuria Status: Acute (15) Hypotension Status: Acute (16) Hypotension Status: Acute (17) Hypoxia Status: Chronic (18) Hypoxia Status: Acute (19) Hypoxia Status: Acute (20) Hypoxia Status: Acute (21) Left rib fracture Status: Acute (22) Lung cancer Status: Acute (23) Mediastinal lymphadenopathy Status: Acute (24) Metastatic lung cancer (metastasis from lung to other site) Status: Acute (25) Metastatic lung cancer (metastasis from lung to other site) Status: Chronic (26) Neutropenia Status: Acute (27) Neutropenia Status: Acute (28) Non-traumatic compression fracture of T5 thoracic vertebra Status: Acute (29) Osteolytic 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 Status: Acute (30) Pathological fracture of rib of right side Status: Acute (31) Pulmonary embolism, bilateral Status: Chronic (32) Pulmonary nodules Status: Acute (33) SVT (supraventricular tachycardia) Status: Acute (34) Thrombocytopenia Status: Acute (35) Weakness Status: Acute Review of Systems Constitutional: + weakness, + fatigue Respiratory: + shortness of breath, + dyspnea on exertion Neurologic: + weakness All Other Systems: Reviewed and Negative Medications Current Inpatient Medications Medications (Trade) Dose Ordered Sig/Abbi Route Start Time Stop Time Status Last Admin Dose Admin Enoxaparin Sodium (Lovenox Inj) 40 mg Q24H SQ 05/13/17 09:00 06/12/17 08:59 05/13/17 07:57 40 MG Sodium Chloride 1,000 ml @ 50 mls/hr Q20H IV 05/12/17 21:42 06/11/17 21:41 05/12/17 23:45 50 MLS/HR Ondansetron HCl (Zofran Inj) 4 mg Q6H PRN IV 05/12/17 21:45 06/11/17 21:44 Pantoprazole Sodium 40 mg/ Syringe 10 ml @ 5 mls/min DAILY@1100 IV 05/13/17 11:00 05/16/17 11:01 Albuterol/ Ipratropium (Duoneb) 3 ml Q6R PRN INH 05/12/17 21:45 06/11/17 21:44 Miscellaneous Information (Icu Protocol For Hyperglycemia) 1 ea PRN PRN N/A 05/12/17 21:45 05/14/17 21:44 Albuterol (Ventolin Hfa Inhaler) 2 puffs QID PRN INH 05/12/17 21:45 06/11/17 21:44 Budesonide/ Formoterol Fumarate (Symbicort 160/ 4.5 Inh) 2 puffs BID INH 05/13/17 09:00 06/12/17 08:59 05/13/17 07:56 2 PUFFS Finasteride (Proscar Tab) 5 mg QAM PO 05/13/17 09:00 06/12/17 08:59 Albuterol/ Ipratropium (Combivent Respimat Inh) 1 puffs QID PRN INH 05/12/17 21:45 06/11/17 21:44 Tamsulosin HCl (Flomax Cap) 0.4 mg HS PO 05/13/17 21:00 06/12/17 20:59 Methylprednisolone Sodium Succinate 40 mg/Syringe 0.64 ml @ 1.5 mls/min Q8 IV 05/12/17 23:00 06/11/17 22:59 05/13/17 06:07 1.5 MLS/MIN Vancomycin HCl 1250 mg/Sodium Chloride 275 ml @ 125 mls/hr Q10H IV 05/13/17 08:00 05/19/17 23:59 05/13/17 07:55 125 MLS/HR Levofloxacin 750 mg/Prmx 150 ml @ 100 mls/hr Q24H IV 05/13/17 01:00 05/20/17 00:59 05/13/17 00:44 100 MLS/HR Piperacillin Sod/ Tazobactam Sod 4.5 gm/Dextrose 120 ml @ 30 mls/hr Q8H IV 05/13/17 04:00 05/19/17 23:59 05/13/17 03:46 30 MLS/HR Vancomycin HCl (Consult) 1 ea UD PRN N/A 05/12/17 22:45 06/11/17 22:44 Piperacillin Sod/ Tazobactam Sod (Consult) 1 ea UD PRN N/A 05/12/17 22:45 06/11/17 22:44 Heparin Sodium (Porcine) (Heparin 100 Unit/ml 5ml Flush) 5 ml PRN PRN IV 05/13/17 03:00 06/12/17 02:59 Insulin Aspart (novoLOG ASPART) SLIDING SCALE ACHS SC 05/13/17 11:00 06/12/17 10:59 Glucose (Glucose 40% Gel) 15-30 GRAMS 15 GRAMS... UD PRN PO 05/13/17 09:45 06/12/17 09:44 Glucose (Glucose Chew Tab) 4-8 Tablets 4 Tabl... UD PRN PO 05/13/17 09:45 06/12/17 09:44 Dextrose (Dextrose 50% 50ML Syringe) 25-50ML OF 50% DW IV FOR... UD PRN IV 05/13/17 09:45 06/12/17 09:44 Glucagon (Glucagon Inj) 1 mg UD PRN SQ 05/13/17 09:45 06/12/17 09:44 Objective Vital Signs Date Time Temp Pulse Resp B/P (MAP) Pulse Ox O2 Delivery O2 Flow Rate FiO2 05/13/17 08:00 36.4 59 21 102/63 (76) 96 BiPAP 45 05/13/17 08:00 Oxymask 6.0 1/9/18 07:09 57 93 05/13/17 05:31 58 10 95/57 (70) 99 05/13/17 05:01 64 20 113/62 (79) 100 BiPAP 45 05/13/17 04:31 63 17 101/52 (68) 99 BiPAP 45 05/13/17 04:09 36.6 66 18 102/59 (73) 100 BiPAP 05/13/17 04:01 66 17 102/59 (73) 98 BiPAP 45 05/13/17 04:00 93 BiPAP 45 05/13/17 03:31 65 17 119/54 (75) 97 BiPAP 45 05/13/17 03:01 68 17 114/52 (72) 95 BiPAP 45 05/13/17 02:31 71 19 113/56 (75) 90 BiPAP 45 05/13/17 02:01 71 16 101/57 (72) 100 BiPAP 45 05/13/17 01:31 86 16 90/51 (64) 98 BiPAP 45 05/13/17 01:01 91 24 105/50 (68) 95 BiPAP 40 05/13/17 00:40 85 20 101/75 (84) 99 BiPAP 40 05/13/17 00:01 93 BiPAP 40 05/13/17 00:01 90 17 99/62 (74) 93 BiPAP 40 05/12/17 23:31 91 22 103/54 (70) 95 BiPAP 40 05/12/17 23:01 88 17 101/50 (67) 94 BiPAP 40 05/12/17 22:40 36.7 94 24 126/60 94 Mask 6.0 05/12/17 21:55 84 20 127/69 89 Room Air 05/12/17 21:01 71 26 138/52 94 BiPAP 05/12/17 20:59 89 93 05/12/17 20:42 76 05/12/17 19:39 82 17 115/59 90 BiPAP 05/12/17 19:24 79 18 88 BiPAP 40 05/12/17 18:54 80 05/12/17 18:06 92 16 124/51 92 BiPAP 05/12/17 18:05 84 93 05/12/17 17:55 91 20 93 Nasal Cannula 3.0 05/12/17 17:48 93 Nasal Cannula 4.0 1/8/18 16:56 37.0 85 20 117/47 99 Oxymask 6.0 05/12/17 16:20 82 20 95 Mask 6.0 05/12/17 15:32 90 Oxymask 6.0 05/12/17 15:32 37.0 102 18 116/47 90 Oxymask 6.0 05/12/17 15:29 92 05/12/17 15:29 95 Oxymask 6.0 Physical Exam General Appearance: WD/WN, no apparent distress Eyes: normal inspection, EOMI, sclerae normal ENT: normal ENT inspection, hearing grossly normal, pharynx normal Neck: supple, no adenopathy, no JVD, trachea midline Respiratory/Chest: chest non-tender, no respiratory distress, no accessory muscle use, + decreased breath sounds, + rhonchi Cardiovascular: regular rate, rhythm, no edema, no gallop, no JVD, no murmur Abdomen: normal bowel sounds, non tender, soft, no organomegaly Extremities: normal range of motion, non-tender, normal inspection, no pedal edema, no calf tenderness, normal capillary refill, pelvis stable 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: floor clerk II-XII nml as tested, alert, normal mood/affect, oriented x 3, + motor weakness Skin: normal color, warm/dry, no rash Laboratory Results Last 24 Hours Test 05/12/17 16:30 05/12/17 18:17 05/12/17 20:25 05/12/17 22:56 White Blood Count 3.28 K/uL Red Blood Count 2.53 M/uL Hemoglobin 8.8 g/dL Hematocrit 28.3 % Mean Corpuscular Volume 111.9 fL Mean Corpuscular Hemoglobin 34.8 pg Mean Corpuscular Hemoglobin Concent 31.1 g/dl Platelet Count 57 K/uL Mean Platelet Volume 8.9 fL Neutrophils (%) (Auto) 62.8 % Lymphocytes (%) (Auto) 14.9 % Monocytes (%) (Auto) 22.0 % Eosinophils (%) (Auto) 0.0 % Basophils (%) (Auto) 0.0 % Neutrophils # (Auto) 2.06 K/uL Lymphocytes # (Auto) 0.49 K/uL Monocytes # (Auto) 0.72 K/uL Eosinophils # (Auto) 0.00 K/uL Basophils # (Auto) 0.00 K/uL RDW Standard Deviation 69.5 fL RDW Coefficient of Variation 17.0 % Immature Granulocyte % (Auto) 0.3 % Immature Granulocyte # (Auto) 0.01 K/uL Platelet Estimate DECREASED Macrocytosis PRESENT Stomatocytes 2+ Prothrombin Time 11.1 SECONDS Prothromb Time International Ratio 1.1 Activated Partial Thromboplast Time 33.1 SECONDS Partial Thromboplastin Ratio 1.3 Sodium Level 136 mmol/L Potassium Level 4.5 mmol/L Chloride Level 90 mmol/L Carbon Dioxide Level 47 mmol/L Anion Gap -1.0 mmol/L Blood Urea Nitrogen 15 mg/dl Creatinine 0.30 mg/dl Est Creatinine Clear Calc Drug Dose 246.7 ml/min Estimated GFR () > 150.0 Estimated GFR (Non- 138.3 BUN/Creatinine Ratio 50.2 Random Glucose 104 mg/dl Lactic Acid Level 0.3 mmol/L Calcium Level 9.1 mg/dl Total Bilirubin 0.4 mg/dl Aspartate Amino Transf (AST/SGOT) 13 U/L Alanine Aminotransferase (ALT/SGPT) 21 U/L Alkaline Phosphatase 91 U/L Troponin I < 0.015 ng/ml Total Protein 6.4 gm/dl Albumin 2.8 gm/dl Globulin 3.6 gm/dl Albumin/Globulin Ratio 0.8 Influenza Type A Antigen Neg for Influ A Influenza Type B Antigen Neg for Influ B Arterial Blood pH 7.27 Arterial Blood Partial Pressure CO2 104 mmHg Arterial Blood Partial Pressure O2 54 mm/Hg Arterial Blood HCO3 47 mmol/L Arterial Blood Oxygen Saturation 83.0 % Arterial Blood Base Excess 17.1 mEq/L Arterial Blood Gas Delivery 30% [place] Test POS Pass Blood Gas Sample Site R Radial Bedside Blood Gas pH (LAB) 7.26 7.35 Bedside Blood Gas pCO2 (LAB) > 115 mmHg 98 mmHg Bedside Blood Gas pO2 (LAB) 60 mmHg 80 mmHg Bedside Blood Gas HCO3 (LAB) 53 meq/L 54 meq/L Bedside Blood Gas Total CO2 < 5 mEq/l < 5 mEq/l Bedside Blood Gas Base Excess (LAB) 26.0 meq/L 28.0 meq/L Bedside Blood Gas O2 Saturation 83.0 % 94.0 % Oxygen Delivery Device BIPAP Bedside Oxygen Rate (breaths/min) 12 Bedside FiO2 40 % Blood Gas IPAP 12 Bedside Hemoglobin 8.5 g/dl Bedside Hematocrit 25 % Bedside Sodium 137 mEq/L Bedside Potassium 4.5 mEq/L Test 1/8/18 23:06 05/13/17 00:40 05/13/17 01:15 05/13/17 03:29 Lactic Acid Level 0.5 mmol/L Phosphorus Level 2.9 mg/dl Magnesium Level 1.6 mg/dl Procalcitonin < 0.05 ng/ml Urine Color YELLOW Urine Appearance CLEAR Urine pH 5.5 Urine Specific [place] 1.022 Urine Protein 1+ Urine Glucose (UA) NEG Urine Ketones NEG Urine Occult Blood 1+ Urine Nitrite NEG Urine Bilirubin NEG Urine Urobilinogen NEG Urine Leukocyte Esterase NEG Urine WBC (Auto) 1-5 /hpf Urine RBC (Auto) 5-10 /hpf Urine Hyaline Casts (Auto) 1-5 /lpf Urine Epithelial Cells (Auto) 20-30 /lpf Urine Bacteria (Auto) NEG Urine Opiates Screen NEG Urine Methadone, Qualitative NEG Urine Barbiturates NEG Urine Phencyclidine (PCP) Level NEG Ur Amphetamine/Methamphetamine NEG MDMA (Ecstasy) Screen NEG Urine Benzodiazepines Screen NEG Urine Cocaine Metabolite NEG Urine Marijuana (THC) NEG Blood Gas Sample Site R Radial R Radial Bedside Blood Gas pH (LAB) 7.37 7.33 Bedside Blood Gas pCO2 (LAB) 92 mmHg 96 mmHg Bedside Blood Gas pO2 (LAB) 66 mmHg 81 mmHg Bedside Blood Gas HCO3 (LAB) 53 meq/L 51 meq/L Bedside Blood Gas Total CO2 < 5 mEq/l < 5 mEq/l Bedside Blood Gas Base Excess (LAB) 28.0 meq/L 25.0 meq/L Bedside Blood Gas O2 Saturation 90.0 % 94.0 % [place] Test Pass Pass Oxygen Delivery Device BIPAP BIPAP Bedside Oxygen Rate (breaths/min) 20 20 Bedside FiO2 40 % 45 % Blood Gas IPAP 16 16 Test 05/13/17 05:14 05/13/17 05:25 05/13/17 05:44 05/13/17 08:10 Bedside Glucose 158 mg/dl Blood Gas Sample Site R Radial Bedside Blood Gas pH (LAB) 7.33 Bedside Blood Gas pCO2 (LAB) 94 mmHg Bedside Blood Gas pO2 (LAB) 89 mmHg Bedside Blood Gas HCO3 (LAB) 50 meq/L Bedside Blood Gas Total CO2 < 5 mEq/l Bedside Blood Gas Base Excess (LAB) 24.0 meq/L Bedside Blood Gas O2 Saturation 95.0 % [place] Test Pass Oxygen Delivery Device BIPAP Bedside Oxygen Rate (breaths/min) 20 Bedside FiO2 45 % Blood Gas IPAP 16 White Blood Count 2.60 K/uL Red Blood Count 2.36 M/uL Hemoglobin 8.3 g/dL Hematocrit 26.0 % Mean Corpuscular Volume 110.2 fL Mean Corpuscular Hemoglobin 35.2 pg Mean Corpuscular Hemoglobin Concent 31.9 g/dl Platelet Count 48 K/uL Mean Platelet Volume 9.2 fL Neutrophils (%) (Auto) 85.8 % Lymphocytes (%) (Auto) 8.8 % Monocytes (%) (Auto) 5.0 % Eosinophils (%) (Auto) 0.0 % Basophils (%) (Auto) 0.0 % Neutrophils # (Auto) 2.23 K/uL Lymphocytes # (Auto) 0.23 K/uL Monocytes # (Auto) 0.13 K/uL Eosinophils # (Auto) 0.00 K/uL Basophils # (Auto) 0.00 K/uL RDW Standard Deviation 68.4 fL RDW Coefficient of Variation 17.0 % Immature Granulocyte % (Auto) 0.4 % Immature Granulocyte # (Auto) 0.01 K/uL Large Platelets 1+ Basophilic Stippling 1+ Macrocytosis PRESENT Stomatocytes 1+ Prothrombin Time 11.4 SECONDS Prothromb Time International Ratio 1.1 Activated Partial Thromboplast Time 31.2 SECONDS Partial Thromboplastin Ratio 1.2 Sodium Level 135 mmol/L Potassium Level 4.8 mmol/L Chloride Level 89 mmol/L Carbon Dioxide Level mmol/L 48 mmol/L Anion Gap mmol/L Blood Urea Nitrogen 16 mg/dl Creatinine 0.41 mg/dl Est Creatinine Clear Calc Drug Dose 180.5 ml/min Estimated GFR () 141.0 Estimated GFR (Non- 121.7 BUN/Creatinine Ratio 38.0 Random Glucose 136 mg/dl Calcium Level 9.1 mg/dl Phosphorus Level 3.2 mg/dl Magnesium Level 1.7 mg/dl Troponin I < 0.015 ng/ml Assessment and Plan 67 yo male with severe COPD and lung adenocarcinoma with diffuse metastases, presented with lethargy, dyspnea, acute on chronic ventilatory failure - Acute on chronic hypercapnic respiratory failure responding slowly to BiPAP, pH improving, CO2 coming down will give breaks off the BiPAP to allow to eat but will likely be on the BiPAP majority of the day due to severe COPD patient does NOT want to be intubated if he would deteriorate, only use non- invasive measures - Acute on chronic hypoxic respiratory failure due to COPD and possible pneumonia, wean back O2, saturation goal is 90% due to hypercapnia management per ICU - Possible pneumonia: cover with Vancomycin and Zosyn for now, no fever, no cough - 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 Dr. Biggs following, holding on chemotherapy if there is any progression he would recommend hospice, could not tolerate further chemo with his severe COPD - Chronic pancytopenia: counts stable, due to chemotherapy - Paroxysmal afib initial EKG showed afib, now in sinus rhythm likely due to acute illness continue to monitor on tele, hold on further treatment given his other co- morbidities and potential hospice Pain management-- Continue fentanyl 75 g a 72 hour intervals BPH-- Resume finasteride and tamsulosin when patient is more alert, and the need for monitor for urinary retention CODE STATUS: no full ventilation, no compressions, no medications, he is okay with cardioversion if needed
[2017-05-13] MEDS: PANTOprazole INJ 40 MG in SYRINGE 0 ML IV SCH (11:27)
[2017-05-13] MEDS: INSULIN ASPART 100 UNITS/ML 3 ML PEN SC SCH ×3 (11:29→20:17)
--- NOTE | 2017-05-13 11:44 | DIAGNOSTIC IMAGING REPORT ---
CHEST CT WITH CONTRAST CT DOSE: 814.68 mGy.cm HISTORY: Lung adenocarcinoma follow up, COPD exacerbation TECHNIQUE: Multiaxial CT images of the chest were performed following the intravenous administration of contrast. A dose lowering technique was utilized adhering to the principles of ALARA. COMPARISON: Chest CTA 03/24/1717. FINDINGS: No pneumothorax. Emphysema. Trace bilateral pleural effusions which have developed. Interval increase in size and number of the multiple bilateral pulmonary nodules consistent with metastatic disease. The heart remains mildly enlarged. Prominent AP window lymph nodes are again noted. Right hilar mass/lymph node measuring 2.5 cm in size is similar to the prior study. Increase in size in a 1.9 cm right infrahilar lymph node best in image 198. A 1.5 cm hypodense lesion within the liver which is highly suspicious for a metastatic lesion. Extensive mixed lytic and blastic osseous lesions seen throughout the visit osseous osseous structures are again noted and appear to slightly progressed. Stable T5 severe compression deformity. Left subclavian Port-A-Cath terminates in the SVC. There is also mild interlobular septal thickening seen within the right upper lobe and right lower lobe raising the possibility of lymphangitic spread of disease. Nonspecific groundglass density within the right lower lobe. IMPRESSION: Interval progression of metastatic disease within the chest as described above including a 1.5 cm lesion within the liver which also likely represents a metastatic focus. Electronically signed by: Josue Peterson M.D. 05/13/2017 11:43 AM Dictated Date/Time: 05/13/2017 11:31 AM
[2017-05-13] MEDS: SODIUM CHLORIDE 0.9% 1000ML 1,000 ML IV SCH (18:11)
--- NOTE | 2017-05-13 18:50 | Critical Care Progress Note ---
Critical Care Progress Note Date of Service May 13, 2017. Attending Dr. Hines Subjective Off BIPAP today Awake and alert tolerating diet Objective General: NAD, awake, alert Lungs: clear to auscultation b/l, breathing unlabored CVS: S1S2 reg Abd: non-tender Ext: no edema MAYONNAISE MIXER: AAO x 3, no focal deficit, no lethargy Assessment & Plan Patient with metastatic lung adenocarcinoma, admitted for acute on chronic respiratory failure with hypoxia and hypercapnia. Recommend nocturnal BIPAP senior living, should be discharged on home BIPAP as well. Continue steroids, bronchodilators Empiric Abx for 48 hours, de-escalate/discontinue if no evidence of an infectious process. Procalcitonin is negative CT chest reviewed, shows worsening pulmonary metastatic disease and possibly liver involvement as well. Refusing AHA diet. May have regular diet, I don't think it will impact his senior living outcome DVT prophylaxis: Lovenox Documented By: Berto Hines MD Critical care time spent 25 minutes Data Medications: Current Inpatient Medications Medications (Trade) Dose Ordered Sig/Abbi Route Start Time Stop Time Status Last Admin Dose Admin Enoxaparin Sodium (Lovenox Inj) 40 mg Q24H SQ 05/13/17 09:00 06/12/17 08:59 05/13/17 07:57 40 MG Sodium Chloride 1,000 ml @ 50 mls/hr Q20H IV 05/12/17 21:42 06/11/17 21:41 05/13/17 18:11 50 MLS/HR Ondansetron HCl (Zofran Inj) 4 mg Q6H PRN IV 05/12/17 21:45 06/11/17 21:44 Pantoprazole Sodium 40 mg/ Syringe 10 ml @ 5 mls/min DAILY@1100 IV 05/13/17 11:00 05/16/17 11:01 05/13/17 11:27 5 MLS/MIN Albuterol/ Ipratropium (Duoneb) 3 ml Q6R PRN INH 05/12/17 21:45 06/11/17 21:44 Miscellaneous Information ([facility] Protocol For Hyperglycemia) 1 ea PRN PRN N/A 05/12/17 21:45 05/14/17 21:44 Albuterol (Ventolin Hfa Inhaler) 2 puffs QID PRN INH 05/12/17 21:45 06/11/17 21:44 Budesonide/ Formoterol Fumarate (Symbicort 160/ 4.5 Inh) 2 puffs BID INH 05/13/17 09:00 06/12/17 08:59 05/13/17 07:56 2 PUFFS Finasteride (Proscar Tab) 5 mg QAM PO 05/13/17 09:00 06/12/17 08:59 Albuterol/ Ipratropium (Combivent Respimat Inh) 1 puffs QID PRN INH 05/12/17 21:45 06/11/17 21:44 Tamsulosin HCl (Flomax Cap) 0.4 mg HS PO 05/13/17 21:00 06/12/17 20:59 Methylprednisolone Sodium Succinate 40 mg/Syringe 0.64 ml @ 1.5 mls/min Q8 IV 05/12/17 23:00 06/11/17 22:59 05/13/17 16:25 1.5 MLS/MIN Vancomycin HCl 1250 mg/Sodium Chloride 275 ml @ 125 mls/hr Q10H IV 05/13/17 08:00 05/19/17 23:59 05/13/17 18:22 125 MLS/HR Levofloxacin 750 mg/Prmx 150 ml @ 100 mls/hr Q24H IV 05/13/17 01:00 05/20/17 00:59 05/13/17 00:44 100 MLS/HR Piperacillin Sod/ Tazobactam Sod 4.5 gm/Dextrose 120 ml @ 30 mls/hr Q8H IV 05/13/17 04:00 05/19/17 23:59 05/13/17 11:27 30 MLS/HR Vancomycin HCl (Consult) 1 ea UD PRN N/A 05/12/17 22:45 06/11/17 22:44 Piperacillin Sod/ Tazobactam Sod (Consult) 1 ea UD PRN N/A 05/12/17 22:45 06/11/17 22:44 Heparin Sodium (Porcine) (Heparin 100 Unit/ml 5ml Flush) 5 ml PRN PRN IV 05/13/17 03:00 06/12/17 02:59 Insulin Aspart (novoLOG ASPART) SLIDING SCALE ACHS SC 05/13/17 11:00 06/12/17 10:59 05/13/17 11:29 1 UNITS Glucose (Glucose 40% Gel) 15-30 GRAMS 15 GRAMS... UD PRN PO 05/13/17 09:45 06/12/17 09:44 Glucose (Glucose Chew Tab) 4-8 Tablets 4 Tabl... UD PRN PO 05/13/17 09:45 06/12/17 09:44 Dextrose (Dextrose 50% 50ML Syringe) 25-50ML OF 50% DW IV FOR... UD PRN IV 05/13/17 09:45 06/12/17 09:44 Glucagon (Glucagon Inj) 1 mg UD PRN SQ 05/13/17 09:45 06/12/17 09:44 Ioversol (Optiray 320) 100 ml UD PRN IV 05/13/17 10:15 05/17/17 10:14 I & O: 24-Hour Column 05/14/17 08:00 Intake Total 1095 ml Output Total 375 ml Balance 720 ml Vital Signs: Date Time Temp Pulse Resp B/P (MAP) Pulse Ox O2 Delivery O2 Flow Rate FiO2 05/13/17 18:00 65 16 113/57 (75) 96 Nasal Cannula 6.0 05/13/17 16:00 36.8 72 15 106/52 (70) 96 Nasal Cannula 6.0 05/13/17 16:00 Nasal Cannula 6.0 05/13/17 14:00 65 18 117/64 (81) 96 Nasal Cannula 6.0 05/13/17 12:00 Oxymask 6.0 05/13/17 12:00 36.7 91 22 126/68 (87) 95 Nasal Cannula 6.0 05/13/17 10:00 67 20 114/50 (71) 93 Nasal Cannula 4.0 05/13/17 08:00 36.4 59 21 102/63 (76) 96 BiPAP 45 05/13/17 08:00 Oxymask 6.0 05/13/17 08:00 BiPAP 45 05/13/17 07:09 57 93 05/13/17 05:31 58 10 95/57 (70) 99 05/13/17 05:01 64 20 113/62 (79) 100 BiPAP 45 05/13/17 04:31 63 17 101/52 (68) 99 BiPAP 45 05/13/17 04:09 36.6 66 18 102/59 (73) 100 BiPAP 05/13/17 04:01 66 17 102/59 (73) 98 BiPAP 45 05/13/17 04:00 93 BiPAP 45 05/13/17 03:31 65 17 119/54 (75) 97 BiPAP 45 05/13/17 03:01 68 17 114/52 (72) 95 BiPAP 45 05/13/17 02:31 71 19 113/56 (75) 90 BiPAP 45 05/13/17 02:01 71 16 101/57 (72) 100 BiPAP 45 05/13/17 01:31 86 16 90/51 (64) 98 BiPAP 45 05/13/17 01:01 91 24 105/50 (68) 95 BiPAP 40 05/13/17 00:40 85 20 101/75 (84) 99 BiPAP 40 05/13/17 00:01 93 BiPAP 40 05/13/17 00:01 90 17 99/62 (74) 93 BiPAP 40 05/12/17 23:31 91 22 103/54 (70) 95 BiPAP 40 05/12/17 23:01 88 17 101/50 (67) 94 BiPAP 40 05/12/17 22:40 36.7 94 24 126/60 94 Mask 6.0 05/12/17 21:55 84 20 127/69 89 Room Air 05/12/17 21:01 71 26 138/52 94 BiPAP 05/12/17 20:59 89 93 05/12/17 20:42 76 05/12/17 19:39 82 17 115/59 90 BiPAP 05/12/17 19:24 79 18 88 BiPAP 40 05/12/17 18:54 80 Laboratory Results: Last 24 Hours Test 05/12/17 20:25 05/12/17 22:56 05/12/17 23:06 05/13/17 00:40 Blood Gas Sample Site R Radial Bedside Blood Gas pH (LAB) 7.26 7.35 Bedside Blood Gas pCO2 (LAB) > 115 mmHg 98 mmHg Bedside Blood Gas pO2 (LAB) 60 mmHg 80 mmHg Bedside Blood Gas HCO3 (LAB) 53 meq/L 54 meq/L Bedside Blood Gas Total CO2 < 5 mEq/l < 5 mEq/l Bedside Blood Gas Base Excess (LAB) 26.0 meq/L 28.0 meq/L Bedside Blood Gas O2 Saturation 83.0 % 94.0 % [place] Test Pass Oxygen Delivery Device BIPAP Bedside Oxygen Rate (breaths/min) 12 Bedside FiO2 40 % Blood Gas IPAP 12 Bedside Hemoglobin 8.5 g/dl Bedside Hematocrit 25 % Bedside Sodium 137 mEq/L Bedside Potassium 4.5 mEq/L Lactic Acid Level 0.5 mmol/L Phosphorus Level 2.9 mg/dl Magnesium Level 1.6 mg/dl Procalcitonin < 0.05 ng/ml Urine Color YELLOW Urine Appearance CLEAR Urine pH 5.5 Urine Specific [place] 1.022 Urine Protein 1+ Urine Glucose (UA) NEG Urine Ketones NEG Urine Occult Blood 1+ Urine Nitrite NEG Urine Bilirubin NEG Urine Urobilinogen NEG Urine Leukocyte Esterase NEG Urine WBC (Auto) 1-5 /hpf Urine RBC (Auto) 5-10 /hpf Urine Hyaline Casts (Auto) 1-5 /lpf Urine Epithelial Cells (Auto) 20-30 /lpf Urine Bacteria (Auto) NEG Urine Opiates Screen NEG Urine Methadone, Qualitative NEG Urine Barbiturates NEG Urine Phencyclidine (PCP) Level NEG Ur Amphetamine/Methamphetamine NEG MDMA (Ecstasy) Screen NEG Urine Benzodiazepines Screen NEG Urine Cocaine Metabolite NEG Urine Marijuana (THC) NEG Test 05/13/17 01:15 05/13/17 03:29 05/13/17 05:14 05/13/17 05:25 Blood Gas Sample Site R Radial R Radial R Radial Bedside Blood Gas pH (LAB) 7.37 7.33 7.33 Bedside Blood Gas pCO2 (LAB) 92 mmHg 96 mmHg 94 mmHg Bedside Blood Gas pO2 (LAB) 66 mmHg 81 mmHg 89 mmHg Bedside Blood Gas HCO3 (LAB) 53 meq/L 51 meq/L 50 meq/L Bedside Blood Gas Total CO2 < 5 mEq/l < 5 mEq/l < 5 mEq/l Bedside Blood Gas Base Excess (LAB) 28.0 meq/L 25.0 meq/L 24.0 meq/L Bedside Blood Gas O2 Saturation 90.0 % 94.0 % 95.0 % [place] Test Pass Pass Pass Oxygen Delivery Device BIPAP BIPAP BIPAP Bedside Oxygen Rate (breaths/min) 20 20 20 Bedside FiO2 40 % 45 % 45 % Blood Gas IPAP 16 16 16 Bedside Glucose 158 mg/dl Test 05/13/17 05:44 05/13/17 08:10 05/13/17 13:42 05/13/17 16:11 White Blood Count 2.60 K/uL Red Blood Count 2.36 M/uL Hemoglobin 8.3 g/dL Hematocrit 26.0 % Mean Corpuscular Volume 110.2 fL Mean Corpuscular Hemoglobin 35.2 pg Mean Corpuscular Hemoglobin Concent 31.9 g/dl Platelet Count 48 K/uL Mean Platelet Volume 9.2 fL Neutrophils (%) (Auto) 85.8 % Lymphocytes (%) (Auto) 8.8 % Monocytes (%) (Auto) 5.0 % Eosinophils (%) (Auto) 0.0 % Basophils (%) (Auto) 0.0 % Neutrophils # (Auto) 2.23 K/uL Lymphocytes # (Auto) 0.23 K/uL Monocytes # (Auto) 0.13 K/uL Eosinophils # (Auto) 0.00 K/uL Basophils # (Auto) 0.00 K/uL RDW Standard Deviation 68.4 fL RDW Coefficient of Variation 17.0 % Immature Granulocyte % (Auto) 0.4 % Immature Granulocyte # (Auto) 0.01 K/uL Large Platelets 1+ Basophilic Stippling 1+ Macrocytosis PRESENT Stomatocytes 1+ Prothrombin Time 11.4 SECONDS Prothromb Time International Ratio 1.1 Activated Partial Thromboplast Time 31.2 SECONDS Partial Thromboplastin Ratio 1.2 Sodium Level 135 mmol/L Potassium Level 4.8 mmol/L Chloride Level 89 mmol/L Carbon Dioxide Level mmol/L 48 mmol/L Anion Gap mmol/L Blood Urea Nitrogen 16 mg/dl Creatinine 0.41 mg/dl Est Creatinine Clear Calc Drug Dose 180.5 ml/min Estimated GFR () 141.0 Estimated GFR (Non- 121.7 BUN/Creatinine Ratio 38.0 Random Glucose 136 mg/dl Calcium Level 9.1 mg/dl Phosphorus Level 3.2 mg/dl Magnesium Level 1.7 mg/dl Troponin I < 0.015 ng/ml < 0.015 ng/ml Bedside Glucose 132 mg/dl
[2017-05-13] MEDS: TAMSULOSIN HCL 0.4 MG CAP PO SCH (20:10)
[2017-05-14] VITALS (19 sets, daily range): BP systolic 89–123; BP diastolic 44–65; PULSE 51–80; TEMP 36.7–36.9; O2SAT 92–100
[2017-05-14] MEDS: LEVOFLOXACIN / D5W 750 MG in PREMIXED IN D5W 150 ML IV SCH (01:14)
[2017-05-14] MEDS ORDERED: VANCOMYCIN TROUGH ONE (03:30)
[2017-05-14] MEDS: PIPERACILL/TAZOBAC IV 4.5 GM in DEXTROSE 5% 100ML 100 ML IV SCH (04:00)
[2017-05-14] MEDS: VANCOMYCIN INJ 1,250 MG in SODIUM CHLORIDE 0.9% 250ML 250 ML IV SCH (04:00)
[2017-05-14 04:03] LABS: HEMATOCRIT 23.5 % (42-52); HEMOGLOBIN 7.6 g/dL (14.0-18.0); MEAN CELL VOLUME 106.8 fL (80-100); MEAN CORPUSCULAR HEMOGLOBIN 34.5 pg (25-34); MEAN CORPUSCULAR HGB CONC 32.3 g/dl (32-36); RED CELL DISTRIBUTION WIDTH CV 16.7 % (11.5-14.5); RED CELL DISTRIBUTION WIDTH SD 64.5 fL (36.4-46.3); WHITE BLOOD COUNT 2.73 K/uL (4.8-10.8)
[2017-05-14 04:09] LABS: MEAN PLATELET VOLUME 8.8 fL (7.4-10.4); PLATELET COUNT 61 K/uL (130-400)
[2017-05-14 04:17] LABS: INR 1.1 (0.9-1.1); PTT PATIENT 31.1 SECONDS (21.0-31.0)
[2017-05-14 04:26] LABS: CALCIUM 8.8 mg/dl (8.5-10.1); CREATININE 0.46 mg/dl (0.60-1.40); POTASSIUM 4.2 mmol/L (3.5-5.1)
[2017-05-14 04:29] LABS: PHOSPHORUS 2.4 mg/dl (2.5-4.9)
[2017-05-14 04:47] LABS: IG# 0.01 K/uL (0.00-0.02); LYMPH % 8.8 %; LYMPH ABS # 0.24 K/uL (1.2-3.4); MONO % 7.7 %; MONO ABS # 0.21 K/uL (0.11-0.59); NEUT % 83.1 %; NEUT ABS # 2.27 K/uL (1.4-6.5)
[2017-05-14] MEDS: METHYLPREDNISOLONE IV 40 MG in SYRINGE 0 ML IV SCH ×3 (06:14→21:46)
[2017-05-14] MEDS: INSULIN ASPART 100 UNITS/ML 3 ML PEN SC SCH ×4 (06:32→21:45)
[2017-05-14 07:36] LABS: HEMOGLOBIN 7.9 g/dL (14.0-18.0)
--- NOTE | 2017-05-14 08:10 | DIAGNOSTIC IMAGING REPORT ---
SINGLE VIEW CHEST CLINICAL HISTORY: Hypoxia. History of lung cancer. FINDINGS: An AP, portable, upright chest radiograph is compared to chest x-ray and chest CT dated 05/13/2017. The examination is degraded by portable technique and patient rotation. A left subclavian central venous infusion port is unchanged in position. The heart is enlarged and there is atherosclerotic calcification of the thoracic aorta. The pulmonary vasculature is noncongested. Emphysema and chronic interstitial thickening are similar to previous. Numerous foci of pulmonary and pleural-based metastatic disease are again noted. Fullness of the right hilum suggests adenopathy. No superimposed airspace consolidation or pleural effusion is clearly identified. No pneumothorax is seen. The skeletal structures are osteopenic. Degenerative change is noted throughout the thoracic spine. IMPRESSION: 1. Cardiomegaly and emphysema. 2. Multifocal pulmonary and pleural-based metastatic disease is again noted. This was better characterized on yesterday's chest CT. 3. There is no convincing evidence of superimposed airspace consolidation or large pleural effusion. Electronically signed by: Marquez Cha M.D. 05/14/2017 8:08 AM Dictated Date/Time: 05/14/2017 8:06 AM
[2017-05-14] MEDS ORDERED: DOCUSATE SODIUM 100 MG CAP PO PRN (08:45)
[2017-05-14] MEDS ORDERED: MAGNESIUM SULFATE 1GM / D5W 1 GM in PREMIXED IN D5W 100 ML IV ONE (09:00)
[2017-05-14] MEDS: FINASTERIDE 5 MG TAB PO SCH (09:03)
[2017-05-14] MEDS: ENOXAPARIN 40 MG/0.4 ML SYR SQ SCH (09:03)
[2017-05-14] MEDS: BUDESONIDE/FORMOTEROL FUMARATE 160/4.5 60 PUFFS/INHALER INH SCH ×2 (09:03→21:44)
[2017-05-14] MEDS: PANTOprazole INJ 40 MG in SYRINGE 0 ML IV SCH (09:04)
[2017-05-14] MEDS: GUAIFENESIN 600 MG TABCR PO SCH ×2 (15:49→21:45)
[2017-05-14] MEDS: ALBUT/IPRATROP 3MG/0.5MG NEB 3 ML VIAL INH SCH ×2 (15:53→19:15)
--- NOTE | 2017-05-14 16:30 | DIAGNOSTIC IMAGING REPORT ---
LEFT LOWER EXTREMITY VENOUS DOPPLER CLINICAL HISTORY: Lung cancer. Left leg edema. Evaluate for deep venous thrombus. COMPARISON STUDY: Bilateral lower extremity venous Doppler October 09 2016. TECHNIQUE: Sonography of the deep venous system of the left lower extremity was performed. Compression and augmentation were evaluated. FINDINGS: The common femoral, superficial femoral and popliteal veins were compressible. Note is made of minimal echogenic material along the wall of the left common femoral vein which is similar to exam of October 09, 2016. This represents minimal chronic thrombus. No additional sites of deep venous thrombus within the left lower media production operator present. IMPRESSION: 1. No evidence of acute deep venous thrombus within the left lower extremity. 2. No change in minimal chronic thrombus within the left common femoral vein since study of October 09, 2016. Electronically signed by: Thom Casanova M.D. 05/14/2017 4:29 PM Dictated Date/Time: 05/14/2017 4:25 PM
--- NOTE | 2017-05-14 19:04 | Progress Note ---
Subjective Date of Service: May 14, 2017. Subjective Pt evaluation today including: conversation w/ patient, conversation w/ family (significant other at bedside), physical exam, chart review, lab review, review of studies (CT chest), conversation w/ personnel consultant (critical care), review of inpatient medication list Pain: denies PO Intake: fair Voiding: no voiding problems tele stable overnight no new issues c/o cough but "can't get anything out" reports he was "doing ok" over the holiday season but got "sick really fast" denies dyspnea at rest denies abd pain or chest pain Problem List Medical Problems: (1) Acute bronchitis Status: Acute (2) Acute on chronic respiratory failure with hypoxia Status: Acute (3) Acute respiratory failure with hypoxia and hypercapnia Status: Acute (4) Anemia Status: Acute (5) Bilateral pulmonary embolism Status: Acute (6) Bronchitis Status: Acute (7) CO2 narcosis Status: Acute (8) Dehydration Status: Acute (9) Dehydration Status: Acute (10) Dysuria Status: Acute (11) Generalized weakness Status: Acute (12) Hematuria Status: Acute (13) Hematuria Status: Acute (14) Hematuria Status: Acute (15) Hypotension Status: Acute (16) Hypotension Status: Acute (17) Hypoxia Status: Chronic (18) Hypoxia Status: Acute (19) Hypoxia Status: Acute (20) Hypoxia Status: Acute (21) Left rib fracture Status: Acute (22) Lung cancer Status: Acute (23) Mediastinal lymphadenopathy Status: Acute (24) Metastatic lung cancer (metastasis from lung to other site) Status: Acute (25) Metastatic lung cancer (metastasis from lung to other site) Status: Chronic (26) Neutropenia Status: Acute (27) Neutropenia Status: Acute (28) Non-traumatic compression fracture of T5 thoracic vertebra Status: Acute (29) Osteolytic 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 Status: Acute (30) Pathological fracture of rib of right side Status: Acute (31) Pulmonary embolism, bilateral Status: Chronic (32) Pulmonary nodules Status: Acute (33) SVT (supraventricular tachycardia) Status: Acute (34) Thrombocytopenia Status: Acute (35) Weakness Status: Acute Review of Systems Constitutional: No fever, No chills Respiratory: + cough, + wheezing, No sputum, No dyspnea at rest, No hemoptysis Cardiac: No chest pain, No orthopnea Abdomen: No pain, No constipation Objective Vital Signs Date Time Temp Pulse Resp B/P (MAP) Pulse Ox O2 Delivery O2 Flow Rate FiO2 05/14/17 18:00 36.8 62 20 89/53 (65) 92 Nasal Cannula 4.0 05/14/17 18:00 Nasal Cannula 4.0 05/14/17 16:20 36.9 60 16 100 4.0 05/14/17 16:01 60 16 121/44 (69) 100 Nebulizer 05/14/17 16:00 Nasal Cannula 4.0 05/14/17 15:53 62 18 96 Nasal Cannula 5.0 05/14/17 14:00 61 16 106/53 (70) 98 Nasal Cannula 4.0 05/14/17 12:00 36.9 60 20 103/49 (67) 95 Nasal Cannula 4.0 05/14/17 12:00 Nasal Cannula 4.0 05/14/17 10:00 60 18 99/45 (63) 94 Nasal Cannula 4.0 05/14/17 09:01 59 16 107/56 (73) 97 Nasal Cannula 4.0 05/14/17 08:01 36.7 58 18 93/46 (62) 95 Nasal Cannula 4.0 05/14/17 08:00 Nasal Cannula 05/14/17 08:00 Nasal Cannula 4.0 05/14/17 07:01 55 16 106/56 (73) 97 Nasal Cannula 4.0 05/14/17 06:00 51 16 107/54 (71) 93 Nasal Cannula 6.0 05/14/17 05:01 53 20 91/58 (69) 97 Nasal Cannula 6.0 05/14/17 04:01 36.7 57 123/58 (79) 97 Nasal Cannula 6.0 05/14/17 04:00 Nasal Cannula 6.0 05/14/17 03:01 70 90/50 (63) 93 Nasal Cannula 6.0 05/14/17 02:01 62 18 94/53 (67) 92 Nasal Cannula 6.0 05/14/17 01:01 57 22 108/59 (75) 98 Nasal Cannula 6.0 05/14/17 00:01 BiPAP 45 05/14/17 00:01 36.8 60 18 104/52 (69) 97 BiPAP 45 05/13/17 23:01 68 21 110/47 (68) 93 BiPAP 45 05/13/17 22:05 66 18 98/48 (65) 96 BiPAP 45 05/13/17 22:01 66 18 98/48 (65) 94 Nasal Cannula 6.0 05/13/17 20:01 36.8 61 18 119/57 (77) 96 Nasal Cannula 6.0 05/13/17 20:00 Nasal Cannula 6.0 Physical Exam General Appearance: no apparent distress ENT: pharynx normal Neck: no JVD Respiratory/Chest: no respiratory distress, no accessory muscle use, + decreased breath sounds, + wheezing Cardiovascular: regular rate, rhythm, no gallop, no murmur, + pertinent finding (heart tones distant) Abdomen: normal bowel sounds, non tender, soft, no organomegaly Extremities: no pedal edema (but left leg is noticably larger than right leg ) 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: alert, oriented x 3 Laboratory Results Last 24 Hours Test 05/13/17 20:13 05/14/17 03:26 05/14/17 06:31 05/14/17 07:25 Bedside Glucose 196 mg/dl 140 mg/dl White Blood Count 2.73 K/uL Red Blood Count 2.20 M/uL Hemoglobin 7.6 g/dL 7.9 g/dL Hematocrit 23.5 % 24.0 % Mean Corpuscular Volume 106.8 fL Mean Corpuscular Hemoglobin 34.5 pg Mean Corpuscular Hemoglobin Concent 32.3 g/dl Platelet Count 61 K/uL Mean Platelet Volume 8.8 fL Neutrophils (%) (Auto) 83.1 % Lymphocytes (%) (Auto) 8.8 % Monocytes (%) (Auto) 7.7 % Eosinophils (%) (Auto) 0.0 % Basophils (%) (Auto) 0.0 % Neutrophils # (Auto) 2.27 K/uL Lymphocytes # (Auto) 0.24 K/uL Monocytes # (Auto) 0.21 K/uL Eosinophils # (Auto) 0.00 K/uL Basophils # (Auto) 0.00 K/uL RDW Standard Deviation 64.5 fL RDW Coefficient of Variation 16.7 % Immature Granulocyte % (Auto) 0.4 % Immature Granulocyte # (Auto) 0.01 K/uL Basophilic Stippling 1+ Prothrombin Time 11.1 SECONDS Prothromb Time International Ratio 1.1 Activated Partial Thromboplast Time 31.1 SECONDS Partial Thromboplastin Ratio 1.2 Sodium Level 138 mmol/L Potassium Level 4.2 mmol/L Chloride Level 93 mmol/L Carbon Dioxide Level 47 mmol/L Anion Gap -2.0 mmol/L Blood Urea Nitrogen 18 mg/dl Creatinine 0.46 mg/dl Est Creatinine Clear Calc Drug Dose 160.9 ml/min Estimated GFR () 134.5 Estimated GFR (Non- 116.0 BUN/Creatinine Ratio 39.7 Random Glucose 122 mg/dl Calcium Level 8.8 mg/dl Phosphorus Level 2.4 mg/dl Magnesium Level 1.7 mg/dl Vancomycin Level Trough 13.8 mcg/ml Test 05/14/17 11:29 05/14/17 15:47 Bedside Glucose 146 mg/dl 123 mg/dl Assessment and Plan 67 yo male with: 1. Acute/chronic hypercapnic & hypoxic respiratory failure - acute component 2nd to COPD exacerbation. No obvious pneumonia on imaging and thus broadspectrum IV abx discontinued. No evidence of complicating CHF. Cont IV steroids, abx. Add duonebs q6h. Add mucinex BID. Incentive spirometry. 2. COPD with severe exacerbation - slowly improving as above. Cont NC O2, keep sats 90-92%. No wean on steroids today. Agree with levaquin x 7 days. 3. stage 4 & progressive lung cancer - CT chest with progressive disease. Dr. Biggs to speak with patient today about results and desires for future care (ongoing chemo vs hospice). 4. hypomagnesemia - replace, repeat mag level AM. 5. pancytopenia - chronic, due to chemotherapy, no intervention at this time. 6. h/o DVT/PE - since left leg is larger than right leg will obtain doppler of left leg, r/o new DVT. cont lovenox 40mg once daily for DVT proph until study has returned. 7. PAF - now in NSR. Poor candidate for anticoagulation given his thrombocytopenia and other comorbidities. 8. 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 9. BPH - continue finasteride and tamsulosin. 10. code status - no mech ventilation, no compressions, no medications, he is okay with cardioversion if needed PT, OT if needed ok to move from ICU to med/surg (oncology wing) Continued [facility] stay due to: multiple IV medications needed Discharge planning: uncertain
[2017-05-14] MEDS: TAMSULOSIN HCL 0.4 MG CAP PO SCH (21:44)
[2017-05-15] VITALS (20 sets, daily range): BP systolic 98–134; BP diastolic 38–77; PULSE 48–80; TEMP 36.5–37; O2SAT 89–99
[2017-05-15] MEDS: LEVOFLOXACIN / D5W 750 MG in PREMIXED IN D5W 150 ML IV SCH (00:56)
[2017-05-15 05:31] LABS: HEMATOCRIT 22.9 % (42-52); HEMOGLOBIN 7.4 g/dL (14.0-18.0); MEAN CELL VOLUME 109.6 fL (80-100); MEAN CORPUSCULAR HEMOGLOBIN 35.4 pg (25-34); MEAN CORPUSCULAR HGB CONC 32.3 g/dl (32-36); RED CELL DISTRIBUTION WIDTH CV 17.4 % (11.5-14.5); RED CELL DISTRIBUTION WIDTH SD 69.1 fL (36.4-46.3); WHITE BLOOD COUNT 3.71 K/uL (4.8-10.8)
[2017-05-15 05:52] LABS: MEAN PLATELET VOLUME 8.8 fL (7.4-10.4); PLATELET COUNT 56 K/uL (130-400)
[2017-05-15 05:57] LABS: CALCIUM 8.8 mg/dl (8.5-10.1); CREATININE 0.43 mg/dl (0.60-1.40); POTASSIUM 4.4 mmol/L (3.5-5.1)
[2017-05-15 05:58] LABS: LYMPH % 8.4 %; LYMPH ABS # 0.31 K/uL (1.2-3.4); MONO % 11.9 %; MONO ABS # 0.44 K/uL (0.11-0.59); NEUT % 79.7 %; NEUT ABS # 2.96 K/uL (1.4-6.5)
[2017-05-15] MEDS: METHYLPREDNISOLONE IV 40 MG in SYRINGE 0 ML IV SCH ×3 (06:16→21:43)
[2017-05-15] MEDS: ALBUT/IPRATROP 3MG/0.5MG NEB 3 ML VIAL INH SCH ×4 (07:06→19:29)
[2017-05-15] MEDS: INSULIN ASPART 100 UNITS/ML 3 ML PEN SC SCH ×4 (08:01→21:41)
[2017-05-15] MEDS: FINASTERIDE 5 MG TAB PO SCH (08:12)
[2017-05-15] MEDS: GUAIFENESIN 600 MG TABCR PO SCH ×2 (08:12→21:37)
[2017-05-15] MEDS: FENTANYL 75 MCG/HR TDSY TD SCH (08:12)
[2017-05-15] MEDS: BUDESONIDE/FORMOTEROL FUMARATE 160/4.5 60 PUFFS/INHALER INH SCH ×2 (08:12→21:37)
[2017-05-15] MEDS: ENOXAPARIN 40 MG/0.4 ML SYR SQ SCH (08:13)
[2017-05-15] MEDS: FENTANYL PATCH REMOVE & WASTE SCH (08:18)
[2017-05-15] MEDS ORDERED: FUROSEMIDE INJ 20 MG in SYRINGE 0 ML IV ONE (11:15)
--- NOTE | 2017-05-15 15:24 | Palliative Care Consultation ---
Consultation Date of Consultation: May 15, 2017. Requesting Physician: Dr. Griffin Attending Physician: Dr. Griffin Reason for Consultation: Goals of care History of Present Illness This 67 year old male patient with PMH lung adenocarcinoma with spread to liver and bone, COPD, CHF, chronic respiratory failure, PE, and others listed below, presented to the ED three days ago with worsening SOB. Patient has had multiple admissions recently, eight times in as many months, for similar complaints related to his COPD and lung cancer. Patient has had radiation and is currently receiving chemotherapy. Last chemo was March. Patient also experiences pancytopenia related to the chemo, was seen by oncology office on Friday and reports his numbers were okay. Initially upon arrival, patient was admitted to the ICU requiring Bipap for respiratory acidosis and respiratory failure. Patient did quickly improve is now on regular medical floor. Dr. Biggs, patient's oncologist, spoke with him yesterday about his cancer and the fact that he is too ill at this time to receive further chemotherapy. Palliative care is consulted to assist in establishing goals of care. I met with the patient in room 401. He is pleasant, awake, alert and oriented x4. He has no pain or c/o SOB now while at rest. We had a lengthy discussion about goals of care. Patient stated to me, "Well, I know I'm dying, but I'm not ready to give up yet." He states that he has had multiple readmissions to the hospital recently, but when he goes home he feels well, is still totally independent and able to drive. His s/o Julita feels like he gets worse when his prednisone taper ends. Patient said that Dr. Biggs spoke with him and said he could not receive further chemo unless his COPD is better-controlled and he is able to improve. Patient states he still wants to try and get better so he can possibly receive more treatment for the lung cancer. We did discuss the option of having hospice see him at home and that their goal is to keep him comfortable, out of the hospital and eventually peacefully. He is willing to talk more about this, but would like to wait for his s/o Julita. Past Medical/Surgical History Medical History: Lung cancer with mets to liver and bone Chronic respiratory failure COPD CAD Hematuria Hypoxia Pancytopenia Pneumonia PE Sepsis Social History Smoking Status: Former Smoker History of Alcohol Use: No Drug Use: none Marital Status: in relationship Housing Status: lives with significant other Occupation Status: retired Review of Systems Constitutional: No fever, No chills, No weakness ENT: No trouble swallowing Respiratory: + cough, + wheezing, + dyspnea on exertion, No sputum, No dyspnea at rest Cardiac: No chest pain, No edema Abdomen: No pain, No nausea, No vomiting Male : No problem reported Psychiatric: No depression symptoms, No anxiety Allergies Coded Allergies: No Known Allergies (Verified , 05/12/17) Medications Current Inpatient Medications Medications (Trade) Dose Ordered Sig/Abbi Route Start Time Stop Time Status Last Admin Dose Admin Enoxaparin Sodium (Lovenox Inj) 40 mg Q24H SQ 05/13/17 09:00 06/12/17 08:59 05/15/17 08:13 40 MG Ondansetron HCl (Zofran Inj) 4 mg Q6H PRN IV 05/12/17 21:45 06/11/17 21:44 Albuterol (Ventolin Hfa Inhaler) 2 puffs QID PRN INH 05/12/17 21:45 06/11/17 21:44 Budesonide/ Formoterol Fumarate (Symbicort 160/ 4.5 Inh) 2 puffs BID INH 05/13/17 09:00 06/12/17 08:59 05/15/17 08:12 2 PUFFS Finasteride (Proscar Tab) 5 mg QAM PO 05/13/17 09:00 06/12/17 08:59 05/15/17 08:12 5 MG Albuterol/ Ipratropium (Combivent Respimat Inh) 1 puffs QID PRN INH 05/12/17 21:45 06/11/17 21:44 Tamsulosin HCl (Flomax Cap) 0.4 mg HS PO 05/13/17 21:00 06/12/17 20:59 05/14/17 21:44 0.4 MG Methylprednisolone Sodium Succinate 40 mg/Syringe 0.64 ml @ 1.5 mls/min Q8 IV 05/12/17 23:00 06/11/17 22:59 05/15/17 14:14 1.5 MLS/MIN Heparin Sodium (Porcine) (Heparin 100 Unit/ml 5ml Flush) 5 ml PRN PRN IV 05/13/17 03:00 06/12/17 02:59 05/15/17 05:04 5 ML Insulin Aspart (novoLOG ASPART) SLIDING SCALE ACHS SC 05/13/17 11:00 06/12/17 10:59 05/15/17 12:38 1 UNITS Glucose (Glucose 40% Gel) 15-30 GRAMS 15 GRAMS... UD PRN PO 05/13/17 09:45 06/12/17 09:44 Glucose (Glucose Chew Tab) 4-8 Tablets 4 Tabl... UD PRN PO 05/13/17 09:45 06/12/17 09:44 Dextrose (Dextrose 50% 50ML Syringe) 25-50ML OF 50% DW IV FOR... UD PRN IV 05/13/17 09:45 06/12/17 09:44 Glucagon (Glucagon Inj) 1 mg UD PRN SQ 05/13/17 09:45 06/12/17 09:44 Ioversol (Optiray 320) 100 ml UD PRN IV 05/13/17 10:15 05/17/17 10:14 Docusate Sodium (coLACE CAP) 100 mg BID PRN PO 05/14/17 08:45 06/13/17 08:44 Albuterol/ Ipratropium (Duoneb) 3 ml QIDR INH 05/14/17 16:00 06/13/17 15:59 05/15/17 11:18 3 ML Guaifenesin (Mucinex Contr Rel Tab) 1,200 mg Q12 PO 05/14/17 16:00 06/13/17 15:59 05/15/17 08:12 1,200 MG Fentanyl (Duragesic Patch) 75 mcg Q72H TD 05/15/17 08:00 05/29/17 07:59 05/15/17 08:12 75 MCG Miscellaneous Information (Check Fentanyl Patch Placement) 1 ea QS N/A 05/15/17 16:00 06/14/17 15:59 Miscellaneous (Fentanyl Patch Remove & Waste) 1 ea Q3D N/A 05/15/17 08:30 06/14/17 08:29 05/15/17 08:18 1 EA Acetylcysteine (Mucomyst 20% Inh Soln) 3 ml TIDR INH 05/15/17 15:00 06/14/17 14:59 Levofloxacin (Levaquin Tab) 750 mg HS PO 05/15/17 21:00 05/20/17 20:59 Physical Exam Date Time Temp Pulse Resp B/P (MAP) Pulse Ox O2 Delivery O2 Flow Rate FiO2 05/15/17 14:31 36.9 58 20 114/64 92 4.0 05/15/17 13:15 36.7 55 24 119/58 92 3.0 05/15/17 12:17 36.8 61 16 108/57 89 3.0 05/15/17 11:46 37.0 62 16 98/38 90 4.0 05/15/17 11:35 36.9 61 16 100/39 95 4.0 05/15/17 11:18 55 18 95 Nasal Cannula 4.0 05/15/17 11:08 36.8 54 18 103/50 92 4.0 05/15/17 11:05 Nasal Cannula 5.0 05/15/17 07:08 36.7 48 20 111/53 (72) 96 Nasal Cannula 5.0 05/15/17 07:06 51 18 94 Nasal Cannula 4.0 05/15/17 04:12 36.7 49 18 104/60 (75) 99 Nasal Cannula 5.0 05/15/17 00:01 96 Nasal Cannula 4.0 05/14/17 23:30 36.8 61 20 105/61 (76) 98 Nasal Cannula 5.0 05/14/17 19:18 36.8 80 20 115/65 (82) 92 Nasal Cannula 4.0 05/14/17 19:18 56 18 95 Nasal Cannula 4.0 05/14/17 18:00 36.8 62 20 89/53 (65) 92 Nasal Cannula 4.0 05/14/17 18:00 Nasal Cannula 4.0 05/14/17 16:20 36.9 60 16 100 4.0 05/14/17 16:01 60 16 121/44 (69) 100 Nebulizer 05/14/17 16:00 Nasal Cannula 4.0 05/14/17 15:53 62 18 96 Nasal Cannula 5.0 General Appearance: WD/WN, no apparent distress ENT: hearing grossly normal Neck: supple, no JVD Respiratory: no respiratory distress, no accessory muscle use, + decreased breath sounds (bilateral bases), + rhonchi (very coarse throughout), + wheezing (expiratory) Cardiovascular: regular rate, rhythm, no edema, + normal peripheral pulses Abdomen: normal bowel sounds, non tender, soft Musculoskeletal: normal 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: alert, normal mood/affect, oriented x 3 Skin: normal color Laboratory Results Last 24 Hours Test 05/14/17 15:47 05/14/17 19:59 05/15/17 05:06 05/15/17 07:45 Bedside Glucose 123 mg/dl 168 mg/dl 113 mg/dl White Blood Count 3.71 K/uL Red Blood Count 2.09 M/uL Hemoglobin 7.4 g/dL Hematocrit 22.9 % Mean Corpuscular Volume 109.6 fL Mean Corpuscular Hemoglobin 35.4 pg Mean Corpuscular Hemoglobin Concent 32.3 g/dl Platelet Count 56 K/uL Mean Platelet Volume 8.8 fL Neutrophils (%) (Auto) 79.7 % Lymphocytes (%) (Auto) 8.4 % Monocytes (%) (Auto) 11.9 % Eosinophils (%) (Auto) 0.0 % Basophils (%) (Auto) 0.0 % Neutrophils # (Auto) 2.96 K/uL Lymphocytes # (Auto) 0.31 K/uL Monocytes # (Auto) 0.44 K/uL Eosinophils # (Auto) 0.00 K/uL Basophils # (Auto) 0.00 K/uL RDW Standard Deviation 69.1 fL RDW Coefficient of Variation 17.4 % Immature Granulocyte % (Auto) 0.0 % Immature Granulocyte # (Auto) 0.00 K/uL Red Blood Cell Morphology Unremarkable Sodium Level 140 mmol/L Potassium Level 4.4 mmol/L Chloride Level 96 mmol/L Carbon Dioxide Level 47 mmol/L Anion Gap -3.0 mmol/L Blood Urea Nitrogen 23 mg/dl Creatinine 0.43 mg/dl Est Creatinine Clear Calc Drug Dose 172.1 ml/min Estimated GFR () 138.3 Estimated GFR (Non- 119.3 BUN/Creatinine Ratio 54.0 Random Glucose 104 mg/dl Calcium Level 8.8 mg/dl Magnesium Level 1.8 mg/dl Test 05/15/17 11:17 Bedside Glucose 164 mg/dl Assessment & Plan Problem list: TSE Pain, chronic- well-controlled at this time with fentanyl patch Respiratory failure, acute on chronic COPD exacerbation Lung cancer- worsening/progressive disease per CT chest Anemia requiring blood transfusion Goals of care (Z51.5) Palliative care recs: -Patient confirmed he is DNR/DNI. -For now, wants to continue current medical management. Will be ongoing discussion about goals of care. -Patient's family is the most important thing to him, and he states they are what keeps him fighting. Patient feels that he still has a very good quality of life when he is at home. He is not debilitated and is able to live a good life when he is not in hospital. -Had lengthy discussion about hospice- their philosophy, service they offer, etc. Patient is willing to discuss this further when his significant other, Julita, is present. He requests I come back tomorrow as his s/o and grandson will be coming this evening to visit him this evening and he wants to have a good visit with them. -Continue fentanyl patch 75mcg/hr TD Q72h for his chronic pain. It is well- controlled with this. -May need daily prednisone indefinitely to keep COPD at bay. Will defer that decision to hospitalist/pulmonary. Thank you for allowing me to participate in the care of this patient. I will follow as needed.
[2017-05-15] MEDS: ACETYLCYSTEINE 20% INHAL SOLN ***DISPENSED BY RESP. INH SCH ×2 (15:47→19:29)
[2017-05-15] MEDS: CHECK FENTANYL PATCH PLACEMENT SCH ×2 (16:27→23:36)
--- NOTE | 2017-05-15 20:16 | Progress Note ---
Subjective Date of Service: May 15, 2017. Subjective Pt evaluation today including: conversation w/ patient, physical exam, chart review, lab review, conversation w/ edi consultant (palliative care), review of inpatient medication list Pain: none during the visit today PO Intake: fair Voiding: no voiding problems patient tired today we had a lengthy discussion about his current status including the progressive cancer he asks if pulmonary can be involved so that his COPD can be controlled as best as possible still feels he has sputum in his chest that simply won't "come up" still coughing and dyspneic at times Problem List Medical Problems: (1) Acute bronchitis Status: Acute (2) Acute on chronic respiratory failure with hypoxia Status: Acute (3) Acute respiratory failure with hypoxia and hypercapnia Status: Acute (4) Anemia Status: Acute (5) Bilateral pulmonary embolism Status: Acute (6) Bronchitis Status: Acute (7) CO2 narcosis Status: Acute (8) Dehydration Status: Acute (9) Dehydration Status: Acute (10) Dysuria Status: Acute (11) Generalized weakness Status: Acute (12) Hematuria Status: Acute (13) Hematuria Status: Acute (14) Hematuria Status: Acute (15) Hypotension Status: Acute (16) Hypotension Status: Acute (17) Hypoxia Status: Chronic (18) Hypoxia Status: Acute (19) Hypoxia Status: Acute (20) Hypoxia Status: Acute (21) Left rib fracture Status: Acute (22) Lung cancer Status: Acute (23) Mediastinal lymphadenopathy Status: Acute (24) Metastatic lung cancer (metastasis from lung to other site) Status: Acute (25) Metastatic lung cancer (metastasis from lung to other site) Status: Chronic (26) Neutropenia Status: Acute (27) Neutropenia Status: Acute (28) Non-traumatic compression fracture of T5 thoracic vertebra Status: Acute (29) Osteolytic 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 Status: Acute (30) Pathological fracture of rib of right side Status: Acute (31) Pulmonary embolism, bilateral Status: Chronic (32) Pulmonary nodules Status: Acute (33) SVT (supraventricular tachycardia) Status: Acute (34) Thrombocytopenia Status: Acute (35) Weakness Status: Acute Review of Systems Constitutional: No fever Respiratory: No dyspnea at rest Cardiac: No chest pain Abdomen: No pain Objective Vital Signs Date Time Temp Pulse Resp B/P (MAP) Pulse Ox O2 Delivery O2 Flow Rate FiO2 05/15/17 19:46 36.7 55 18 134/77 (96) 98 Nasal Cannula 3.5 05/15/17 19:30 60 16 95 Nasal Cannula 3.0 05/15/17 17:56 37.0 80 20 122/67 89 4.0 05/15/17 17:06 36.7 63 20 127/64 89 3.0 05/15/17 16:05 36.5 68 20 130/68 91 3.0 05/15/17 16:00 89 Nasal Cannula 3.0 05/15/17 15:47 36.9 61 20 104/50 (68) 92 Nasal Cannula 3.0 05/15/17 15:47 57 18 94 Nasal Cannula 3.0 05/15/17 15:05 36.9 61 20 104/50 92 3.0 05/15/17 14:31 36.9 58 20 114/64 92 4.0 05/15/17 13:15 36.7 55 24 119/58 92 3.0 05/15/17 12:17 36.8 61 16 108/57 89 3.0 05/15/17 11:46 37.0 62 16 98/38 90 4.0 05/15/17 11:35 36.9 61 16 100/39 95 4.0 05/15/17 11:18 55 18 95 Nasal Cannula 4.0 05/15/17 11:08 36.8 54 18 103/50 92 4.0 05/15/17 11:05 Nasal Cannula 5.0 05/15/17 07:08 36.7 48 20 111/53 (72) 96 Nasal Cannula 5.0 05/15/17 07:06 51 18 94 Nasal Cannula 4.0 05/15/17 04:12 36.7 49 18 104/60 (75) 99 Nasal Cannula 5.0 05/15/17 00:01 96 Nasal Cannula 4.0 05/14/17 23:30 36.8 61 20 105/61 (76) 98 Nasal Cannula 5.0 Physical Exam General Appearance: no apparent distress ENT: pharynx normal Neck: no JVD Respiratory/Chest: no respiratory distress, no accessory muscle use, + rales ( minimal - bases), + rhonchi, + wheezing Cardiovascular: regular rate, rhythm, no gallop, + pertinent finding (heart tones distant) Abdomen: normal bowel sounds, non tender, soft, no organomegaly Extremities: no pedal edema 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: alert, oriented x 3 Skin: + pallor Laboratory Results Last 24 Hours Test 05/15/17 05:06 05/15/17 07:45 05/15/17 11:17 05/15/17 16:31 White Blood Count 3.71 K/uL Red Blood Count 2.09 M/uL Hemoglobin 7.4 g/dL Hematocrit 22.9 % Mean Corpuscular Volume 109.6 fL Mean Corpuscular Hemoglobin 35.4 pg Mean Corpuscular Hemoglobin Concent 32.3 g/dl Platelet Count 56 K/uL Mean Platelet Volume 8.8 fL Neutrophils (%) (Auto) 79.7 % Lymphocytes (%) (Auto) 8.4 % Monocytes (%) (Auto) 11.9 % Eosinophils (%) (Auto) 0.0 % Basophils (%) (Auto) 0.0 % Neutrophils # (Auto) 2.96 K/uL Lymphocytes # (Auto) 0.31 K/uL Monocytes # (Auto) 0.44 K/uL Eosinophils # (Auto) 0.00 K/uL Basophils # (Auto) 0.00 K/uL RDW Standard Deviation 69.1 fL RDW Coefficient of Variation 17.4 % Immature Granulocyte % (Auto) 0.0 % Immature Granulocyte # (Auto) 0.00 K/uL Red Blood Cell Morphology Unremarkable Sodium Level 140 mmol/L Potassium Level 4.4 mmol/L Chloride Level 96 mmol/L Carbon Dioxide Level 47 mmol/L Anion Gap -3.0 mmol/L Blood Urea Nitrogen 23 mg/dl Creatinine 0.43 mg/dl Est Creatinine Clear Calc Drug Dose 172.1 ml/min Estimated GFR () 138.3 Estimated GFR (Non- 119.3 BUN/Creatinine Ratio 54.0 Random Glucose 104 mg/dl Calcium Level 8.8 mg/dl Magnesium Level 1.8 mg/dl Bedside Glucose 113 mg/dl 164 mg/dl 125 mg/dl Test 05/15/17 19:55 Bedside Glucose 190 mg/dl Assessment and Plan 67 yo male with: 1. Acute/chronic hypercapnic & hypoxic respiratory failure - acute component 2nd to COPD exacerbation. No obvious pneumonia on imaging and thus broadspectrum IV abx discontinued. No evidence of complicating CHF. Cont IV steroids, abx, duonebs, mucinex. Add mucomyst to nebs TID x 2 days. Pulmonary toilet w/ incentive tianna. Cont daily inhalers; adding spiriva as well. 2. COPD with severe exacerbation - slowly improving as above. Cont NC O2, keep sats 90-92%. No wean on steroids today but hopefully tomorrow. Levaquin x 7 days. Will request pulmonary consult tomorrow. Adding mucomyst as noted above. 3. stage 4 & progressive lung cancer - CT chest with progressive disease. Dr. Biggs spoke with patient yesterday; hospice was broached. Palliative care consult today. 4. hypomagnesemia - replaced. 5. pancytopenia - chronic, due to chemotherapy, with H/H slowly dropping. Tx 2 units PRBCs today. Lasix in between units. 6. h/o DVT/PE - LLE doppler neg for DVT. cont lovenox 40mg once daily for DVT proph. 7. PAF - now in NSR. Poor candidate for anticoagulation given his thrombocytopenia and other comorbidities. 8. 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 9. BPH - continue finasteride and tamsulosin. 10. code status - no mech ventilation, no compressions, no medications, he is okay with cardioversion if needed PT, OT consults to be requested to help w/ disposition repeat labs in AM cont novolog coverage while on steroids Continued [facility] stay due to: multiple IV medications needed Discharge planning: uncertain
[2017-05-15] MEDS: LEVOFLOXACIN 750 MG TAB PO SCH (21:37)
[2017-05-15] MEDS: TAMSULOSIN HCL 0.4 MG CAP PO SCH (21:37)
[2017-05-16] VITALS (9 sets, daily range): BP systolic 101–143; BP diastolic 52–72; PULSE 50–94; TEMP 36.6–36.9; O2SAT 92–98
[2017-05-16] MEDS: METHYLPREDNISOLONE IV 40 MG in SYRINGE 0 ML IV SCH (05:53)
[2017-05-16 06:50] LABS: HEMATOCRIT 28.7 % (42-52); HEMOGLOBIN 9.4 g/dL (14.0-18.0); MEAN CELL VOLUME 104.4 fL (80-100); MEAN CORPUSCULAR HEMOGLOBIN 34.2 pg (25-34); MEAN CORPUSCULAR HGB CONC 32.8 g/dl (32-36); MEAN PLATELET VOLUME 9.2 fL (7.4-10.4); PLATELET COUNT 60 K/uL (130-400); RED CELL DISTRIBUTION WIDTH CV 20.9 % (11.5-14.5); RED CELL DISTRIBUTION WIDTH SD 78.2 fL (36.4-46.3); WHITE BLOOD COUNT 4.34 K/uL (4.8-10.8)
[2017-05-16] MEDS: ACETYLCYSTEINE 20% INHAL SOLN ***DISPENSED BY RESP. INH SCH ×3 (06:56→19:01)
[2017-05-16] MEDS: ALBUT/IPRATROP 3MG/0.5MG NEB 3 ML VIAL INH SCH ×4 (06:56→19:01)
[2017-05-16 07:01] LABS: CALCIUM 8.9 mg/dl (8.5-10.1); CREATININE 0.37 mg/dl (0.60-1.40); POTASSIUM 4.2 mmol/L (3.5-5.1)
[2017-05-16] MEDS: INSULIN ASPART 100 UNITS/ML 3 ML PEN SC SCH ×4 (08:17→20:29)
[2017-05-16] MEDS: BUDESONIDE/FORMOTEROL FUMARATE 160/4.5 60 PUFFS/INHALER INH SCH ×2 (08:23→20:29)
[2017-05-16] MEDS: CHECK FENTANYL PATCH PLACEMENT SCH ×2 (08:23→16:27)
[2017-05-16] MEDS: ENOXAPARIN 40 MG/0.4 ML SYR SQ SCH (08:24)
[2017-05-16] MEDS: GUAIFENESIN 600 MG TABCR PO SCH ×2 (08:24→20:31)
[2017-05-16] MEDS: FINASTERIDE 5 MG TAB PO SCH (08:24)
[2017-05-16] MEDS: TIOTROPIUM BROMIDE 5 PUFF/90 MCG INH INH SCH (08:25)
[2017-05-16] MEDS: MAGNESIUM SULFATE 1GM / D5W 1 GM in PREMIXED IN D5W 100 ML IV SCH ×2 (10:31→11:43)
--- NOTE | 2017-05-16 16:07 | Hematology/Oncology Prog Note ---
Hematology/Onc Progress Note Date of Service May 16, 2017. Diagnoses Metastatic non-small cell lung cancer COPD Hypercapneic respiratory failure Medications Medications Administered Medications (Trade) Dose Ordered Sig/Abbi Route Start Time Stop Time Status Last Admin Dose Admin Cefepime HCl 2000 mg/Dextrose 112.5 ml @ 200 mls/hr NOW ONCE IV 05/12/17 16:00 05/12/17 16:33 DC 05/12/17 16:59 200 MLS/HR Levalbuterol (Xopenex 1.25MG/ 3ML Neb) 1.25 mg ONE ONCE INH 05/12/17 16:00 05/12/17 16:01 DC 05/12/17 16:19 1.25 MG Levalbuterol (Xopenex 1.25MG/ 0.5ML Neb) 1.25 mg STK-MED ONCE INH 05/12/17 17:47 05/12/17 17:48 DC 05/12/17 17:55 1.25 MG Enoxaparin Sodium (Lovenox Inj) 40 mg Q24H SQ 05/13/17 09:00 06/12/17 08:59 05/16/17 08:24 40 MG Sodium Chloride 1,000 ml @ 50 mls/hr Q20H IV 05/12/17 21:42 05/14/17 08:44 DC 05/13/17 18:11 50 MLS/HR Pantoprazole Sodium 40 mg/ Syringe 10 ml @ 5 mls/min DAILY@1100 IV 05/13/17 11:00 05/14/17 15:11 DC 05/14/17 09:04 5 MLS/MIN Budesonide/ Formoterol Fumarate (Symbicort 160/ 4.5 Inh) 2 puffs BID INH 05/13/17 09:00 06/12/17 08:59 05/16/17 08:23 2 PUFFS Finasteride (Proscar Tab) 5 mg QAM PO 05/13/17 09:00 06/12/17 08:59 05/16/17 08:24 5 MG Tamsulosin HCl (Flomax Cap) 0.4 mg HS PO 05/13/17 21:00 06/12/17 20:59 05/15/17 21:37 0.4 MG Methylprednisolone Sodium Succinate 40 mg/Syringe 0.64 ml @ 1.5 mls/min Q8 IV 05/12/17 23:00 05/16/17 15:03 DC 05/16/17 05:53 1.5 MLS/MIN Vancomycin HCl 1250 mg/Sodium Chloride 275 ml @ 125 mls/hr Q10H IV 05/13/17 08:00 05/14/17 08:42 DC 05/14/17 04:00 125 MLS/HR Levofloxacin 750 mg/Prmx 150 ml @ 100 mls/hr Q24H IV 05/13/17 01:00 05/15/17 10:48 DC 05/15/17 00:56 100 MLS/HR Vancomycin HCl 2000 mg/Sodium Chloride 500 ml @ 200 mls/hr NOW ONCE IV 05/12/17 23:00 05/13/17 01:29 DC 05/12/17 23:41 200 MLS/HR Piperacillin Sod/ Tazobactam Sod 4.5 gm/Dextrose 120 ml @ 200 mls/hr TODAY@2300 IV 05/12/17 23:00 05/13/17 02:00 DC 05/12/17 23:41 200 MLS/HR Piperacillin Sod/ Tazobactam Sod 4.5 gm/Dextrose 120 ml @ 30 mls/hr Q8H IV 05/13/17 04:00 05/14/17 08:42 DC 05/14/17 04:00 30 MLS/HR Magnesium Sulfate 1 gm/Prmx 100 ml @ 100 mls/hr NOW STAT IV 05/13/17 00:03 05/13/17 01:02 DC 05/13/17 00:44 100 MLS/HR Heparin Sodium (Porcine) (Heparin 100 Unit/ml 5ml Flush) 5 ml PRN PRN IV 05/13/17 03:00 06/12/17 02:59 05/16/17 13:01 5 ML Magnesium Sulfate 1 gm/Prmx 100 ml @ 100 mls/hr NOW STAT IV 05/13/17 08:40 05/13/17 09:39 DC 05/13/17 11:26 100 MLS/HR Insulin Aspart (novoLOG ASPART) SLIDING SCALE ACHS SC 05/13/17 11:00 06/12/17 10:59 05/15/17 21:41 2 UNITS Magnesium Sulfate 1 gm/Prmx 100 ml @ 100 mls/hr TODAY@0900 ONCE IV 05/14/17 09:00 05/14/17 09:59 DC 05/14/17 09:03 100 MLS/HR Albuterol/ Ipratropium (Duoneb) 3 ml QIDR INH 05/14/17 16:00 06/13/17 15:59 05/16/17 06:56 3 ML Guaifenesin (Mucinex Contr Rel Tab) 1,200 mg Q12 PO 05/14/17 16:00 06/13/17 15:59 05/16/17 08:24 1,200 MG Fentanyl (Duragesic Patch) 75 mcg Q72H TD 05/15/17 08:00 05/29/17 07:59 05/15/17 08:12 75 MCG Miscellaneous Information (Check Fentanyl Patch Placement) 1 ea QS N/A 05/15/17 16:00 06/14/17 15:59 05/16/17 08:23 1 EA Miscellaneous (Fentanyl Patch Remove & Waste) 1 ea Q3D N/A 05/15/17 08:30 06/14/17 08:29 05/15/17 08:18 1 EA Acetylcysteine (Mucomyst 20% Inh Soln) 3 ml TIDR INH 05/15/17 15:00 06/14/17 14:59 05/16/17 06:56 3 ML Furosemide 20 mg/ Syringe 2 ml @ 4 mls/min ONE ONCE IV 05/15/17 11:15 05/15/17 11:16 DC 05/15/17 14:15 4 MLS/MIN Levofloxacin (Levaquin Tab) 750 mg HS PO 05/15/17 21:00 05/20/17 20:59 05/15/17 21:37 750 MG Tiotropium Errol (Spiriva Handihaler Inhaler) 1 puff QAM INH 05/16/17 08:00 06/15/17 07:59 05/16/17 08:25 1 PUFF Folic Acid (Folvite Tab) 1 mg QAM PO 05/16/17 09:30 06/15/17 09:29 05/16/17 11:42 1 MG Magnesium Sulfate 1 gm/Prmx 100 ml @ 100 mls/hr Q1H IV 05/16/17 10:00 05/16/17 11:59 DC 05/16/17 11:43 100 MLS/HR Subjective Mr. Hagan is comfortable in bed. His breathing continues to very slowly improve. His energy also seems up a bit. He received 2 units of PRBCs yesterday for a hemoglobin in the 7s. He responded appropriately. Review of Systems: Constitutional: + weakness, + fatigue, No fever ENT: No unusual epistaxis Respiratory: + shortness of breath Cardiovascular: No chest pain Abdomen: No pain, No nausea Musculoskeletal: No joint pain, No muscle pain Heme: No abnormal bleeding/bruising Vital Signs Vital Signs Past 12 Hours Date Time Temp Pulse Resp B/P (MAP) Pulse Ox O2 Delivery O2 Flow Rate FiO2 05/16/17 11:47 36.8 72 20 121/62 (81) 05/16/17 09:48 4.0 05/16/17 08:13 36.6 55 18 143/72 (95) 93 Nasal Cannula 3.0 05/16/17 06:57 50 16 98 Nasal Cannula 4.0 05/16/17 04:03 36.6 52 20 113/55 (74) 93 Nasal Cannula 4.0 Physical Exam Constitutional: Level of Distress: NAD, chronically ill Psychiatric: Orientation: oriented except where noted Lungs: Auscuitation: pertinent finding (coarse breath sounds in all clay) Cardiovascular: Heart Auscultation: RRR Abdomen: Inspection & Palpation: soft, no tenderness, guarding & rebound Extremities: no edema Laboratory Last 24 Hours Test 05/15/17 16:31 05/15/17 19:55 05/16/17 05:55 05/16/17 07:58 Bedside Glucose 125 mg/dl 190 mg/dl 111 mg/dl White Blood Count 4.34 K/uL Red Blood Count 2.75 M/uL Hemoglobin 9.4 g/dL Hematocrit 28.7 % Mean Corpuscular Volume 104.4 fL Mean Corpuscular Hemoglobin 34.2 pg Mean Corpuscular Hemoglobin Concent 32.8 g/dl RDW Standard Deviation 78.2 fL RDW Coefficient of Variation 20.9 % Platelet Count 60 K/uL Mean Platelet Volume 9.2 fL Sodium Level 140 mmol/L Potassium Level 4.2 mmol/L Chloride Level 95 mmol/L Carbon Dioxide Level 43 mmol/L Anion Gap 2.0 mmol/L Blood Urea Nitrogen 21 mg/dl Creatinine 0.37 mg/dl Est Creatinine Clear Calc Drug Dose 200.0 ml/min Estimated GFR () 147.1 Estimated GFR (Non- 126.9 BUN/Creatinine Ratio 58.0 Random Glucose 94 mg/dl Calcium Level 8.9 mg/dl Magnesium Level 1.6 mg/dl Test 05/16/17 11:44 Bedside Glucose 85 mg/dl Assessment & Plan Mr. Hagan continues to recover from his COPD exacerbation. His recent CT also revealed progressive disease. I had discussed the possibility of hospice with him and asked that palliative care see him as well. He met with them yesterday and was pleased with the conversation overall. He wasn't ready to make a decision about this transition yet, though he seemed open to the idea. If he does not want to proceed with hospice, he has a long road ahead of him before we could consider more treatment for his lung cancer. His PS has declined and his frequent hospitalizations make treating his cancer difficult and impractical. However, we can discuss this in more depth later. He is also pancytopenic. However, he hasn't received chemotherapy since mid- March. I had suggested to Dr. Griffin that we perform an anemia workup, but he looked back at recent labs and found a low folate level. We will start folic acid supplementation today. This is likely related to his pemetrexed treatment, which alters folate levels.
--- NOTE | 2017-05-16 18:56 | Progress Note ---
Subjective Date of Service: May 16, 2017. Subjective Pt evaluation today including: conversation w/ patient, conversation w/ family (, others - at bedside), physical exam, chart review, lab review, conversation w/ databases computer consultant (heme/onc) Pain: none reported today PO Intake: fair Voiding: no voiding problems he feels "a little better" with his breathing today cough is slightly less but still not productive he feels modestly stronger following PRBCs yesterday and reports no worsening dyspnea following PRBCs Problem List Medical Problems: (1) Acute bronchitis Status: Acute (2) Acute on chronic respiratory failure with hypoxia Status: Acute (3) Acute respiratory failure with hypoxia and hypercapnia Status: Acute (4) Anemia Status: Acute (5) Bilateral pulmonary embolism Status: Acute (6) Bronchitis Status: Acute (7) CO2 narcosis Status: Acute (8) Dehydration Status: Acute (9) Dehydration Status: Acute (10) Dysuria Status: Acute (11) Generalized weakness Status: Acute (12) Hematuria Status: Acute (13) Hematuria Status: Acute (14) Hematuria Status: Acute (15) Hypotension Status: Acute (16) Hypotension Status: Acute (17) Hypoxia Status: Chronic (18) Hypoxia Status: Acute (19) Hypoxia Status: Acute (20) Hypoxia Status: Acute (21) Left rib fracture Status: Acute (22) Lung cancer Status: Acute (23) Mediastinal lymphadenopathy Status: Acute (24) Metastatic lung cancer (metastasis from lung to other site) Status: Acute (25) Metastatic lung cancer (metastasis from lung to other site) Status: Chronic (26) Neutropenia Status: Acute (27) Neutropenia Status: Acute (28) Non-traumatic compression fracture of T5 thoracic vertebra Status: Acute (29) Osteolytic 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 Status: Acute (30) Pathological fracture of rib of right side Status: Acute (31) Pulmonary embolism, bilateral Status: Chronic (32) Pulmonary nodules Status: Acute (33) SVT (supraventricular tachycardia) Status: Acute (34) Thrombocytopenia Status: Acute (35) Weakness Status: Acute Review of Systems Constitutional: No fever, No chills Respiratory: + cough, + wheezing, No sputum Cardiac: No chest pain Abdomen: No pain, No constipation Objective Vital Signs Date Time Temp Pulse Resp B/P (MAP) Pulse Ox O2 Delivery O2 Flow Rate FiO2 05/16/17 16:37 36.6 94 18 101/61 (74) 93 Nasal Cannula 05/16/17 16:17 36.8 57 18 117/52 (73) 93 Nasal Cannula 3.5 05/16/17 16:00 Nasal Cannula 4.0 05/16/17 11:47 36.8 72 20 121/62 (81) 05/16/17 09:48 4.0 05/16/17 08:13 36.6 55 18 143/72 (95) 93 Nasal Cannula 3.0 05/16/17 06:57 50 16 98 Nasal Cannula 4.0 05/16/17 04:03 36.6 52 20 113/55 (74) 93 Nasal Cannula 4.0 05/16/17 00:00 Nasal Cannula 4.0 05/15/17 23:33 36.9 65 20 118/55 (76) 91 Nasal Cannula 4.0 05/15/17 19:46 36.7 55 18 134/77 (96) 98 Nasal Cannula 3.5 05/15/17 19:30 60 16 95 Nasal Cannula 3.0 Physical Exam General Appearance: no apparent distress ENT: pharynx normal (no thrush) Neck: no JVD Respiratory/Chest: no respiratory distress, no accessory muscle use, + crackles (bases), + wheezing (extensive b/l ) Cardiovascular: regular rate, rhythm, no gallop, no murmur Abdomen: normal bowel sounds, non tender, soft, no organomegaly Extremities: no pedal edema 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: alert, oriented x 3 Skin: + pallor Laboratory Results Last 24 Hours Test 05/15/17 19:55 05/16/17 05:55 05/16/17 07:58 05/16/17 11:44 Bedside Glucose 190 mg/dl 111 mg/dl 85 mg/dl White Blood Count 4.34 K/uL Red Blood Count 2.75 M/uL Hemoglobin 9.4 g/dL Hematocrit 28.7 % Mean Corpuscular Volume 104.4 fL Mean Corpuscular Hemoglobin 34.2 pg Mean Corpuscular Hemoglobin Concent 32.8 g/dl RDW Standard Deviation 78.2 fL RDW Coefficient of Variation 20.9 % Platelet Count 60 K/uL Mean Platelet Volume 9.2 fL Sodium Level 140 mmol/L Potassium Level 4.2 mmol/L Chloride Level 95 mmol/L Carbon Dioxide Level 43 mmol/L Anion Gap 2.0 mmol/L Blood Urea Nitrogen 21 mg/dl Creatinine 0.37 mg/dl Est Creatinine Clear Calc Drug Dose 200.0 ml/min Estimated GFR () 147.1 Estimated GFR (Non- 126.9 BUN/Creatinine Ratio 58.0 Random Glucose 94 mg/dl Calcium Level 8.9 mg/dl Magnesium Level 1.6 mg/dl Test 05/16/17 16:50 Bedside Glucose 95 mg/dl Assessment and Plan 67 yo male with: 1. Acute/chronic hypercapnic & hypoxic respiratory failure - acute component 2nd to COPD exacerbation. Slowly improving. No evidence of complicating CHF or pneumonia. Cont IV steroids, abx, duonebs, mucinex, mucomyst nebs. Pulmonary toilet w/ incentive tianna. Cont daily inhalers. 2. COPD with severe exacerbation - slowly improving. lower steroids to q12h. Will request pulmonary consult tomorrow. 1 more of mucomyst nebs. day 5/7 of levaquin. 3. stage 4 & progressive lung cancer - CT chest with progressive disease. Dr. Biggs and palliative care have both discussed hospice with patient; patient is not ready to initiate such. 4. hypomagnesemia - replace, repeat level in AM. 5. pancytopenia - chronic, previously thought due to chemotherapy, but folate def may also be playing a role. start folic acid 1mg daily x 1-2 months. recent b12 and iron studies w/o deficiencies. s/p 2 units PRBCs yesterday - tolerated well. 6. h/o DVT/PE - LLE doppler neg for DVT. cont lovenox 40mg once daily for DVT proph. 7. PAF - now in NSR. Poor candidate for anticoagulation given his thrombocytopenia and other comorbidities. 8. 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 Controlled. 9. BPH - continue finasteride and tamsulosin. 10. code status - no mech ventilation, no compressions, no medications, he is okay with cardioversion if needed cont novolog coverage while on steroids dispo - cleared for home by therapy, perhaps home on Friday? Continued [facility] stay due to: multiple IV medications needed Discharge planning: home
[2017-05-16] MEDS: TAMSULOSIN HCL 0.4 MG CAP PO SCH (20:31)
[2017-05-16] MEDS: LEVOFLOXACIN 750 MG TAB PO SCH (20:31)
[2017-05-17] VITALS (10 sets, daily range): BP systolic 116–128; BP diastolic 61–69; PULSE 52–80; TEMP 36.6–36.7; O2SAT 91–99
[2017-05-17] MEDS: MAGNESIUM SULFATE 1GM / D5W 1 GM in PREMIXED IN D5W 100 ML IV SCH ×3 (00:54→11:16)
[2017-05-17] MEDS: CHECK FENTANYL PATCH PLACEMENT SCH ×3 (00:54→15:48)
[2017-05-17] MEDS: METHYLPREDNISOLONE IV 40 MG in SYRINGE 0 ML IV SCH ×2 (01:31→12:23)
[2017-05-17] MEDS: INSULIN ASPART 100 UNITS/ML 3 ML PEN SC SCH ×2 (06:30→11:00)
[2017-05-17 06:50] LABS: CALCIUM 8.9 mg/dl (8.5-10.1); CREATININE 0.49 mg/dl (0.60-1.40); POTASSIUM 4.4 mmol/L (3.5-5.1)
[2017-05-17] MEDS: ACETYLCYSTEINE 20% INHAL SOLN ***DISPENSED BY RESP. INH SCH ×3 (07:00→19:09)
[2017-05-17] MEDS: ALBUT/IPRATROP 3MG/0.5MG NEB 3 ML VIAL INH SCH ×4 (07:00→19:09)
[2017-05-17] MEDS: BUDESONIDE/FORMOTEROL FUMARATE 160/4.5 60 PUFFS/INHALER INH SCH ×2 (08:05→20:12)
[2017-05-17] MEDS: TIOTROPIUM BROMIDE 5 PUFF/90 MCG INH INH SCH (08:05)
[2017-05-17] MEDS: FINASTERIDE 5 MG TAB PO SCH (08:07)
[2017-05-17] MEDS: GUAIFENESIN 600 MG TABCR PO SCH ×2 (08:07→20:13)
[2017-05-17] MEDS: ENOXAPARIN 40 MG/0.4 ML SYR SQ SCH (08:08)
[2017-05-17] MEDS ORDERED: NURSING VERBAL MED ORDER ONE (15:30)
[2017-05-17] MEDS: NYSTATIN SUSP 500,000 U/5 ML UDC PO SCH ×2 (17:07→20:12)
--- NOTE | 2017-05-17 17:30 | Pulmonary Consultation ---
History General Date of Service: May 17, 2017. Chief Complaint: Multiple admissions for COPD Stated Complaint: Acute Respiratory Failure With Hypoxia,Hypercapnia HPI The patient is a 67 year old male who presents to [facility] with complaints of Acute Respiratory Failure With Hypoxia,Hypercapnia. The patient's primary care provider is Ann Olivas M.D.. This is a 67-year-old male with a history of metastatic non-small cell lung cancer in his end-stage. The patient has severe COPD with emphysema and was admitted this time for hypercapnic, hypoxemic respiratory failure. The patient was originally in the intensive care unit and subsequently transferred to the medical floor for further care. He follows with Dr. Genaro Biggs. His note reveals that the patient is ineligible for further chemotherapy until his COPD is well controlled. He also noted that the recent CT revealed progressive disease. Hospice was discussed with the patient by Dr. Biggs as well as with Mary Skinner from palliative care. At this point the patient would like to continue with treatment if possible. He is realistic and realizes that his disease is terminal and that he will in spite of any intervention including chemotherapy and treatment of his severe COPD. The patient is a previous smoker who quit approximately two years ago. He smoked 1 to 1 1/2 packs per day for 47 years. The patient has had eight admissions in his money months for COPD exacerbation. At home he has Symbicort, Proventil for his COPD. He does not have a nebulizer and currently does not have BiPAP or CPAP available at home. He is on chronic oxygen and has a concentrator at home. He has a pulse oximeter and maintains his SaO2 above 90%. He does report that often his SaO2 will approach 98 or 99%. Most of his admissions were due to exacerbation was progressed over two or three days. He has also noticed that in spite of his increasing shortness of breath his pulse ox as indicated an SaO2 in the high 90s. We discussed hypoxic drive and CO2 retention and discussed the need to keep SaO2 between 88 and 92%. He seemed to understand this. The patient denies any fever, chills, sweats, rigors. He has no chest pain or chest tightness. He has no back pain. He is able to ambulate and reposition himself without difficulty and bed. He feels as though he is typically where he would be at home regarding his respiratory status. Review of Systems A total of 12 systems was reviewed and is negative other than as listed above in the HPI All Other Symptoms All Other Systems: Reviewed and Negative Past Medical History Past Medical History: Medical Problems: (1) Adenocarcinoma - non-small cell lung cancer (2) COPD (chronic obstructive pulmonary disease) (3) Coronary artery disease (4) Hematuria (5) History of metastatic neoplastic disease (6) Hypoxia (7) Metastatic lung cancer (metastasis from lung to other site) (8) Pancytopenia (9) Pneumonia (10) Pulmonary embolism, bilateral (11) Hx Sepsis (12) chronic supplemental oxygen 2 - 4 L/min via nasal cannula with a home concentrator Past Surgical History: Surgical Problems: (1) History of total replacement of right hip Family History CABG Cancer Social History Hx Tobacco Use In Past Year?: No (Quit 2 years ago.) Smoking Status: Former Smoker Drug Use: none Marital status: in relationship (significant other Julita for many years) Housing status: lives with significant other Occupational Status: retired Immunizations History of Influenza Vaccine: No History of Tetanus Vaccine?: No History of Pneumococcal: No History of Hepatitis B Vaccine: No History of MDRO History of MDRO: No Allergies Coded Allergies: No Known Allergies (Verified , 05/12/17) Current Medications Reported Home Medications Medications Dose Route/Sig Max Daily Dose Days Date Category Lovenox (Enoxaparin Sodium) 40 Mg/0.4 Ml Inj 0.4 Ml SQ DAILY 365 04/21/17 Rx Tramadol HCl 50 Mg Tab 50 Mg PO Q4H PRN 04/21/17 Rx Lorazepam 1 Mg Tab 1 Mg PO HS PRN 04/21/17 Rx Combivent Respimat (Ipratropium-Albuterol) 1 Aer Aer 1 Puffs INH QID PRN 04/15/17 Reported Fentanyl 75 Mcg/Hr Dis 75 Mcg TD [id number] 03/31/17 Reported Finasteride 5 Mg Tab 5 Mg PO QAM 14 01/22/17 Rx Tamsulosin HCl 0.4 Mg Cap 0.4 Mg PO HS 30 01/15/17 Rx Symbicort 160/4.5 Inhaler (Budesonide/Formoterol Fumarate) Aero 2 Puffs INH BID 10/10/16 Reported Proventil Hfa (Albuterol Sulfate) 108 Mcg/Act Aer 2 Puffs INH QID PRN 10/10/16 Reported Physical Physical Exam Vital Signs: Date Time Temp Pulse Resp B/P (MAP) Pulse Ox O2 Delivery O2 Flow Rate FiO2 05/17/17 16:00 Nasal Cannula 3.0 05/17/17 15:42 69 16 96 Nasal Cannula 3.0 05/17/17 15:08 36.6 73 18 126/63 (84) 92 Nasal Cannula 3.0 05/17/17 11:22 68 16 93 Nasal Cannula 3.0 05/17/17 08:00 91 Nasal Cannula 3.0 05/17/17 07:33 36.7 71 18 117/64 (81) 96 Nasal Cannula 3.0 05/17/17 07:02 56 16 97 Nasal Cannula 3.0 05/17/17 03:54 36.6 52 16 116/69 (85) 92 Nasal Cannula 3.0 05/17/17 00:00 Nasal Cannula 3.0 05/16/17 23:56 36.7 62 18 132/67 (88) 94 Nasal Cannula 3.0 05/16/17 19:46 36.9 66 18 126/68 (87) 92 Nasal Cannula 3.0 05/16/17 19:01 64 16 95 Nasal Cannula 3.0 Weight in Kilograms: 84.1 GENERAL : No acute distress. Pleasant EYES: No icterus, gaze conjugate NOSE: No evidence of epistaxis. Nasal cannula in place MOUTH: No lesions or candidiasis NECK: Supple LUNGS: CTA B/L, no wheezes, rales. Breath sounds are equal bilaterally. Rhonchi in the upper lung clay HEART: Regular, rate controlled ABDOMEN: Soft, NT, ND, BS Present EXTREMITIES: No LE edema, pedal pulses intact NEURO: [facility] Labs Results Past 24 Hours Test 05/16/17 20:27 05/17/17 06:00 05/17/17 07:48 05/17/17 11:33 Range/Units Bedside Glucose 91 97 115 70-99 mg/dl Sodium Level 139 136-145 mmol/L Potassium Level 4.4 3.5-5.1 mmol/L Chloride Level 95 98-107 mmol/L Carbon Dioxide Level 42 21-32 mmol/L Anion Gap 3.0 3-11 mmol/L Blood Urea Nitrogen 19 7-18 mg/dl Creatinine 0.49 0.60-1.40 mg/dl Est Creatinine Clear Calc Drug Dose 151.0 ml/min Estimated GFR () 131.1 Estimated GFR (Non- 113.1 BUN/Creatinine Ratio 39.4 10-20 Random Glucose 96 70-99 mg/dl Calcium Level 8.9 8.5-10.1 mg/dl Magnesium Level 1.6 1.8-2.4 mg/dl Diagnostic Radiology CHEST CT WITH CONTRAST CT DOSE: 814.68 mGy.cm HISTORY: Lung adenocarcinoma follow up, COPD exacerbation TECHNIQUE: Multiaxial CT images of the chest were performed following the intravenous administration of contrast. A dose lowering technique was utilized adhering to the principles of ALARA. COMPARISON: Chest CTA 03/24/1717. FINDINGS: No pneumothorax. Emphysema. Trace bilateral pleural effusions which have developed. Interval increase in size and number of the multiple bilateral pulmonary nodules consistent with metastatic disease. The heart remains mildly enlarged. Prominent AP window lymph nodes are again noted. Right hilar mass/lymph node measuring 2.5 cm in size is similar to the prior study. Increase in size in a 1.9 cm right infrahilar lymph node best in image 198. A 1.5 cm hypodense lesion within the liver which is highly suspicious for a metastatic lesion. Extensive mixed lytic and blastic osseous lesions seen throughout the visit osseous osseous structures are again noted and appear to slightly progressed. Stable T5 severe compression deformity. Left subclavian Port-A-Cath terminates in the SVC. There is also mild interlobular septal thickening seen within the right upper lobe and right lower lobe raising the possibility of lymphangitic spread of disease. Nonspecific groundglass density within the right lower lobe. IMPRESSION: Interval progression of metastatic disease within the chest as described above including a 1.5 cm lesion within the liver which also likely represents a metastatic focus. Electronically signed by: Josue Peterson M.D. Impression Assessment and Plan COPD EXACERBATION * Recurrent admissions with eight readmissions within eight months * Will optimize treatment as an outpatient * He has Flovent and Proventil at home. He would benefit from a nebulizer machine * Patient assuredly would benefit from a home BiPAP to be used nocturnally as well as when necessary to avoid readmission * Patient seems to improve with steroids and then has relapsed with steroids are stopped * Based on prognosis it was seem reasonable to taper patient on suppressive steroids to 5 mg daily and titrate as needed in outpatient office DISPOSITION * Will leave prognostication up to the oncology service * Patient follows with Dr. Pulido * Will contact the pulmonary outpatient office on Friday morning and Make an appointment for late next week to be seen in the office * Patient should have contact to call office for modification of treatment to avoid inpatient readmission * Will also ask outpatient pulmonary to make sure that BiPAP and nebulizer machines are in place * Patient and significant other Julita in agreement to work with pulmonary office for closer management Thank you for including us in the care of this patient. We will sign off at this time.
[2017-05-17] MEDS: TAMSULOSIN HCL 0.4 MG CAP PO SCH (20:13)
[2017-05-17] MEDS: LEVOFLOXACIN 750 MG TAB PO SCH (20:13)
--- NOTE | 2017-05-17 20:15 | DIAGNOSTIC IMAGING REPORT ---
CHEST 2 VIEWS ROUTINE CLINICAL HISTORY: severe copd, lung ca, bibasilar rales; eval for pulmonary edema dyspnea COMPARISON STUDY: 05/14/2017 FINDINGS: Moderate stable cardiomegaly. Mildly progressive right to lesser extent left basilar infiltrative-type change. Mid and upper lungs are considered clear. IMPRESSION: Mildly progressive basilar infiltrative-type changes suggesting a superimposed inflammatory process in addition to the additional findings described previously The above report was generated using voice recognition software. It may contain grammatical, syntax or spelling errors. Electronically signed by: Colby Martinez M.D. 05/17/2017 8:13 PM Dictated Date/Time: 05/17/2017 8:12 PM
--- NOTE | 2017-05-17 21:49 | Progress Note ---
Subjective Date of Service: May 17, 2017. Subjective Pt evaluation today including: conversation w/ patient, conversation w/ family ( at bedside), physical exam, chart review, lab review, review of studies ( cxr), conversation w/ golf tournament consultant (pulmonary), review of inpatient medication list Pain: none PO Intake: fair Voiding: no voiding problems feels "a little better" with his breathing today cough is modestly more productive not as dyspneic no new complaints Problem List Medical Problems: (1) Acute bronchitis Status: Acute (2) Acute on chronic respiratory failure with hypoxia Status: Acute (3) Acute respiratory failure with hypoxia and hypercapnia Status: Acute (4) Anemia Status: Acute (5) Bilateral pulmonary embolism Status: Acute (6) Bronchitis Status: Acute (7) CO2 narcosis Status: Acute (8) Dehydration Status: Acute (9) Dehydration Status: Acute (10) Dysuria Status: Acute (11) Generalized weakness Status: Acute (12) Hematuria Status: Acute (13) Hematuria Status: Acute (14) Hematuria Status: Acute (15) Hypotension Status: Acute (16) Hypotension Status: Acute (17) Hypoxia Status: Chronic (18) Hypoxia Status: Acute (19) Hypoxia Status: Acute (20) Hypoxia Status: Acute (21) Left rib fracture Status: Acute (22) Lung cancer Status: Acute (23) Mediastinal lymphadenopathy Status: Acute (24) Metastatic lung cancer (metastasis from lung to other site) Status: Acute (25) Metastatic lung cancer (metastasis from lung to other site) Status: Chronic (26) Neutropenia Status: Acute (27) Neutropenia Status: Acute (28) Non-traumatic compression fracture of T5 thoracic vertebra Status: Acute (29) Osteolytic 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 Status: Acute (30) Pathological fracture of rib of right side Status: Acute (31) Pulmonary embolism, bilateral Status: Chronic (32) Pulmonary nodules Status: Acute (33) SVT (supraventricular tachycardia) Status: Acute (34) Thrombocytopenia Status: Acute (35) Weakness Status: Acute Review of Systems Constitutional: No fever, No chills Respiratory: + cough, + sputum, + wheezing, + shortness of breath, + dyspnea on exertion Cardiac: No chest pain, No orthopnea Abdomen: No pain, No nausea, No vomiting, No diarrhea, No constipation Objective Vital Signs Date Time Temp Pulse Resp B/P (MAP) Pulse Ox O2 Delivery O2 Flow Rate FiO2 05/17/17 19:11 36.6 80 18 128/61 (83) 91 Nasal Cannula 3.0 05/17/17 19:09 68 16 95 Nasal Cannula 3.0 05/17/17 16:00 Nasal Cannula 3.0 05/17/17 15:42 69 16 96 Nasal Cannula 3.0 05/17/17 15:08 36.6 73 18 126/63 (84) 92 Nasal Cannula 3.0 05/17/17 11:22 68 16 93 Nasal Cannula 3.0 05/17/17 08:00 91 Nasal Cannula 3.0 05/17/17 07:33 36.7 71 18 117/64 (81) 96 Nasal Cannula 3.0 05/17/17 07:02 56 16 97 Nasal Cannula 3.0 05/17/17 03:54 36.6 52 16 116/69 (85) 92 Nasal Cannula 3.0 05/17/17 00:00 Nasal Cannula 3.0 05/16/17 23:56 36.7 62 18 132/67 (88) 94 Nasal Cannula 3.0 Physical Exam General Appearance: no apparent distress ENT: + pertinent finding (early thrush plaques on buccal mucosa) Neck: no JVD Respiratory/Chest: no respiratory distress, no accessory muscle use, + crackles (bibasilar), + wheezing (minimal today) Cardiovascular: regular rate, rhythm, no gallop, no murmur Abdomen: normal bowel sounds, non tender, soft, no organomegaly Extremities: no pedal edema 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: alert, oriented x 3 Skin: + pertinent finding (port, left chest, clean) Laboratory Results Last 24 Hours Test 05/17/17 06:00 05/17/17 07:48 05/17/17 11:33 Sodium Level 139 mmol/L Potassium Level 4.4 mmol/L Chloride Level 95 mmol/L Carbon Dioxide Level 42 mmol/L Anion Gap 3.0 mmol/L Blood Urea Nitrogen 19 mg/dl Creatinine 0.49 mg/dl Est Creatinine Clear Calc Drug Dose 151.0 ml/min Estimated GFR () 131.1 Estimated GFR (Non- 113.1 BUN/Creatinine Ratio 39.4 Random Glucose 96 mg/dl Calcium Level 8.9 mg/dl Magnesium Level 1.6 mg/dl Bedside Glucose 97 mg/dl 115 mg/dl Assessment and Plan 67 yo male with: 1. Acute/chronic hypercapnic & hypoxic respiratory failure - acute component 2nd to COPD exacerbation +/- pneumonia. Slowly improving. He is back to his home O2 amount of 3 liters continuously. Cont IV steroids, abx, duonebs, mucinex, mucomyst nebs. Pulmonary toilet w/ incentive tianna. Cont daily inhalers. 2. COPD with severe exacerbation - again improved. Wheezing markedly improved today but had bibasilar crackles, somewhat new from prior exams. Chest x-ray obtained to exclude pulmonary edema. No evidence of such but "progressive infiltrative changes." I suspect this could be either pneumonia vs lymphangetic spread of his cancer. I think his IV steroids can be transitioned to PO prednisone tomorrow, 05/18. would give him a slow taper of steroids at d/c, and consider he stay on a low- dose of 5 or 10mg daily indefinitely. Today is day #6 of levaquin. Would go with 10 day course. 3. stage 4 & progressive lung cancer - CT chest with progressive disease. Dr. Biggs and palliative care have both discussed hospice with patient; patient is not ready to initiate such. 4. hypomagnesemia - replace once again, repeat level in AM. 5. pancytopenia - chronic, previously thought due to chemotherapy, but folate def may also be playing a role. start folic acid 1mg daily x 1-2 months. recent b12 and iron studies w/o deficiencies. s/p 2 units PRBCs this admission and tolerated well. Needs folic acid 1mg daily x 1-2 months at discharge. repeat CBC in am for stability. 6. h/o DVT/PE - LLE doppler neg for DVT. cont lovenox 40mg once daily for DVT proph. he was taking this at home prior to admission. 7. PAF - now in NSR. Poor candidate for anticoagulation given his thrombocytopenia and other comorbidities. 8. 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 Controlled. 9. BPH - continue finasteride and tamsulosin. 10. code status - no mech ventilation, no compressions, no medications, he is okay with cardioversion if needed 11. thrush - nystatin swish QID x 7-10 days BSG's have been normal x 48 hours with tapering of steroids stop BSG's and novolog SSI appreciate pulmonary consult they will follow him up next week in clinic and perhaps weekly NEEDS NEB MACHINE & DUONEBS AT DISCHARGE HE DOES NOT HAVE NEB MACHINE updated Continued [facility] stay due to: multiple IV medications needed Discharge planning: home with home health
[2017-05-18] MEDS: CHECK FENTANYL PATCH PLACEMENT SCH ×2 (00:05→07:57)
[2017-05-18] MEDS: METHYLPREDNISOLONE IV 40 MG in SYRINGE 0 ML IV SCH (02:27)
[2017-05-18 03:51] VITALS: BP 113/66; PULSE 65; TEMP 36.5; O2SAT 97
[2017-05-18 06:07] LABS: HEMATOCRIT 33.6 % (42-52); HEMOGLOBIN 10.5 g/dL (14.0-18.0); MEAN CORPUSCULAR HEMOGLOBIN 33.1 pg (25-34); MEAN CORPUSCULAR HGB CONC 31.3 g/dl (32-36); RED CELL DISTRIBUTION WIDTH CV 18.4 % (11.5-14.5); RED CELL DISTRIBUTION WIDTH SD 71.3 fL (36.4-46.3)
[2017-05-18 06:41] LABS: MEAN PLATELET VOLUME 8.6 fL (7.4-10.4); PLATELET COUNT 73 K/uL (130-400)
[2017-05-18] MEDS: ACETYLCYSTEINE 20% INHAL SOLN ***DISPENSED BY RESP. INH SCH (07:05)
[2017-05-18 07:16] VITALS: BP 119/68; PULSE 58; TEMP 36.9; O2SAT 93
[2017-05-18 07:39] VITALS: PULSE 63; O2SAT 95
[2017-05-18] MEDS: ALBUT/IPRATROP 3MG/0.5MG NEB 3 ML VIAL INH SCH ×2 (07:39→11:26)
[2017-05-18] MEDS: NYSTATIN SUSP 500,000 U/5 ML UDC PO SCH (07:46)
[2017-05-18] MEDS: BUDESONIDE/FORMOTEROL FUMARATE 160/4.5 60 PUFFS/INHALER INH SCH (07:46)
[2017-05-18] MEDS: TIOTROPIUM BROMIDE 5 PUFF/90 MCG INH INH SCH (07:46)
[2017-05-18] MEDS: FINASTERIDE 5 MG TAB PO SCH (07:47)
[2017-05-18] MEDS: GUAIFENESIN 600 MG TABCR PO SCH (07:47)
[2017-05-18] MEDS: ENOXAPARIN 40 MG/0.4 ML SYR SQ SCH (07:50)
[2017-05-18] MEDS: FENTANYL PATCH REMOVE & WASTE SCH (07:57)
[2017-05-18] MEDS: FENTANYL 75 MCG/HR TDSY TD SCH (07:57)
[2017-05-18] MEDS ORDERED: FENTANYL PATCH REMOVE & WASTE SCH (08:00)
--- NOTE | 2017-05-18 09:53 | Progress Note ---
Subjective Date of Service: May 18, 2017. Problem List Medical Problems: (1) Acute bronchitis Status: Acute (2) Acute on chronic respiratory failure with hypoxia Status: Acute (3) Acute respiratory failure with hypoxia and hypercapnia Status: Acute (4) Anemia Status: Acute (5) Bilateral pulmonary embolism Status: Acute (6) Bronchitis Status: Acute (7) CO2 narcosis Status: Acute (8) Dehydration Status: Acute (9) Dehydration Status: Acute (10) Dysuria Status: Acute (11) Generalized weakness Status: Acute (12) Hematuria Status: Acute (13) Hematuria Status: Acute (14) Hematuria Status: Acute (15) Hypotension Status: Acute (16) Hypotension Status: Acute (17) Hypoxia Status: Chronic (18) Hypoxia Status: Acute (19) Hypoxia Status: Acute (20) Hypoxia Status: Acute (21) Left rib fracture Status: Acute (22) Lung cancer Status: Acute (23) Mediastinal lymphadenopathy Status: Acute (24) Metastatic lung cancer (metastasis from lung to other site) Status: Acute (25) Metastatic lung cancer (metastasis from lung to other site) Status: Chronic (26) Neutropenia Status: Acute (27) Neutropenia Status: Acute (28) Non-traumatic compression fracture of T5 thoracic vertebra Status: Acute (29) Osteolytic 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 Status: Acute (30) Pathological fracture of rib of right side Status: Acute (31) Pulmonary embolism, bilateral Status: Chronic (32) Pulmonary nodules Status: Acute (33) SVT (supraventricular tachycardia) Status: Acute (34) Thrombocytopenia Status: Acute (35) Weakness Status: Acute Objective Vital Signs Date Time Temp Pulse Resp B/P (MAP) Pulse Ox O2 Delivery O2 Flow Rate FiO2 05/18/17 08:00 Nasal Cannula 3.0 05/18/17 07:39 63 16 95 Nasal Cannula 3.0 05/18/17 07:16 36.9 58 18 119/68 (85) 93 Nasal Cannula 3.0 05/18/17 03:51 36.5 65 18 113/66 (82) 97 Room Air 05/18/17 00:00 Nasal Cannula 3.0 05/17/17 23:18 36.7 67 16 123/69 (87) 99 Room Air 05/17/17 19:11 36.6 80 18 128/61 (83) 91 Nasal Cannula 3.0 05/17/17 19:09 68 16 95 Nasal Cannula 3.0 05/17/17 16:00 Nasal Cannula 3.0 05/17/17 15:42 69 16 96 Nasal Cannula 3.0 05/17/17 15:08 36.6 73 18 126/63 (84) 92 Nasal Cannula 3.0 05/17/17 11:22 68 16 93 Nasal Cannula 3.0 Laboratory Results Last 24 Hours Test 05/17/17 11:33 05/18/17 05:39 Bedside Glucose 115 mg/dl White Blood Count 5.60 K/uL Red Blood Count 3.17 M/uL Hemoglobin 10.5 g/dL Hematocrit 33.6 % Mean Corpuscular Volume 106.0 fL Mean Corpuscular Hemoglobin 33.1 pg Mean Corpuscular Hemoglobin Concent 31.3 g/dl RDW Standard Deviation 71.3 fL RDW Coefficient of Variation 18.4 % Platelet Count 73 K/uL Mean Platelet Volume 8.6 fL Magnesium Level 1.7 mg/dl Assessment and Plan 67 yo male with acute on chronic respiratory failure secondary to pneumonia poa , copd and metastatic lung cancer Acute/chronic hypercapnic & hypoxic respiratory failure - acute component secondary to COPD exacerbation +/- pneumonia. home O2 amount of 3 liters continuously. taper steroids as able, levauin last dose05/21, duonebs, mucinex, mucomyst nebs, may need nebs at discharge COPD with severe exacerbation - clinically improved. Chest x-ray "progressive infiltrative changes." either pneumonia vs lymphangetic spread of his cancer. stage 4 & progressive lung cancer - CT chest with progressive disease. Dr. Kory Ray and palliative care have both discussed hospice with patient; patient is not ready to initiate such. hypomagnesemia - replete Chronic pancytopenia -folic acid found to be low, started folic acid 1mg daily recent b12 and iron studies w/o deficiencies. s/p 2 units PRBCs this admission and tolerated well. . h/o DVT/PE - LLE doppler neg for DVT. cont lovenox 40mg once daily for DVT proph. he was taking this at home prior to admission. PAF - now in NSR. Poor candidate for anticoagulation given his thrombocytopenia and other comorbidities. 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 Controlled. BPH - voiding well, finasteride and tamsulosin. code status - no mech ventilation, no compressions, no medications, he is okay with cardioversion if needed thrush - nystatin swish QID x 7-10 days Continued [facility] stay due to: multiple IV medications needed Discharge planning: home with home health
--- NOTE | 2017-05-18 10:00 | Hematology/Oncology Prog Note ---
Hematology/Onc Progress Note Date of Service May 18, 2017. Diagnoses Metastatic non-small cell lung cancer COPD Hypercapneic respiratory failure Medications Medications Administered Medications (Trade) Dose Ordered Sig/Abbi Route Start Time Stop Time Status Last Admin Dose Admin Cefepime HCl 2000 mg/Dextrose 112.5 ml @ 200 mls/hr NOW ONCE IV 05/12/17 16:00 05/12/17 16:33 DC 05/12/17 16:59 200 MLS/HR Levalbuterol (Xopenex 1.25MG/ 3ML Neb) 1.25 mg ONE ONCE INH 05/12/17 16:00 05/12/17 16:01 DC 05/12/17 16:19 1.25 MG Levalbuterol (Xopenex 1.25MG/ 0.5ML Neb) 1.25 mg STK-MED ONCE INH 05/12/17 17:47 05/12/17 17:48 DC 05/12/17 17:55 1.25 MG Enoxaparin Sodium (Lovenox Inj) 40 mg Q24H SQ 05/13/17 09:00 06/12/17 08:59 05/18/17 07:50 40 MG Sodium Chloride 1,000 ml @ 50 mls/hr Q20H IV 05/12/17 21:42 05/14/17 08:44 DC 05/13/17 18:11 50 MLS/HR Pantoprazole Sodium 40 mg/ Syringe 10 ml @ 5 mls/min DAILY@1100 IV 05/13/17 11:00 05/14/17 15:11 DC 05/14/17 09:04 5 MLS/MIN Budesonide/ Formoterol Fumarate (Symbicort 160/ 4.5 Inh) 2 puffs BID INH 05/13/17 09:00 06/12/17 08:59 05/18/17 07:46 2 PUFFS Finasteride (Proscar Tab) 5 mg QAM PO 05/13/17 09:00 06/12/17 08:59 05/18/17 07:47 5 MG Tamsulosin HCl (Flomax Cap) 0.4 mg HS PO 05/13/17 21:00 06/12/17 20:59 05/17/17 20:13 0.4 MG Methylprednisolone Sodium Succinate 40 mg/Syringe 0.64 ml @ 1.5 mls/min Q8 IV 05/12/17 23:00 05/16/17 15:03 DC 05/16/17 05:53 1.5 MLS/MIN Vancomycin HCl 1250 mg/Sodium Chloride 275 ml @ 125 mls/hr Q10H IV 05/13/17 08:00 05/14/17 08:42 DC 05/14/17 04:00 125 MLS/HR Levofloxacin 750 mg/Prmx 150 ml @ 100 mls/hr Q24H IV 05/13/17 01:00 05/15/17 10:48 DC 05/15/17 00:56 100 MLS/HR Vancomycin HCl 2000 mg/Sodium Chloride 500 ml @ 200 mls/hr NOW ONCE IV 05/12/17 23:00 05/13/17 01:29 DC 05/12/17 23:41 200 MLS/HR Piperacillin Sod/ Tazobactam Sod 4.5 gm/Dextrose 120 ml @ 200 mls/hr TODAY@2300 IV 05/12/17 23:00 05/13/17 02:00 DC 05/12/17 23:41 200 MLS/HR Piperacillin Sod/ Tazobactam Sod 4.5 gm/Dextrose 120 ml @ 30 mls/hr Q8H IV 05/13/17 04:00 05/14/17 08:42 DC 05/14/17 04:00 30 MLS/HR Magnesium Sulfate 1 gm/Prmx 100 ml @ 100 mls/hr NOW STAT IV 05/13/17 00:03 05/13/17 01:02 DC 05/13/17 00:44 100 MLS/HR Heparin Sodium (Porcine) (Heparin 100 Unit/ml 5ml Flush) 5 ml PRN PRN IV 05/13/17 03:00 06/12/17 02:59 05/18/17 05:36 5 ML Magnesium Sulfate 1 gm/Prmx 100 ml @ 100 mls/hr NOW STAT IV 05/13/17 08:40 05/13/17 09:39 DC 05/13/17 11:26 100 MLS/HR Insulin Aspart (novoLOG ASPART) SLIDING SCALE ACHS SC 05/13/17 11:00 05/17/17 15:28 DC 05/15/17 21:41 2 UNITS Magnesium Sulfate 1 gm/Prmx 100 ml @ 100 mls/hr TODAY@0900 ONCE IV 05/14/17 09:00 05/14/17 09:59 DC 05/14/17 09:03 100 MLS/HR Albuterol/ Ipratropium (Duoneb) 3 ml QIDR INH 05/14/17 16:00 06/13/17 15:59 05/18/17 07:39 3 ML Guaifenesin (Mucinex Contr Rel Tab) 1,200 mg Q12 PO 05/14/17 16:00 06/13/17 15:59 05/18/17 07:47 1,200 MG Fentanyl (Duragesic Patch) 75 mcg Q72H TD 05/15/17 08:00 05/29/17 07:59 05/18/17 07:57 75 MCG Miscellaneous Information (Check Fentanyl Patch Placement) 1 ea QS N/A 05/15/17 16:00 06/14/17 15:59 05/18/17 07:57 1 EA Miscellaneous (Fentanyl Patch Remove & Waste) 1 ea Q3D N/A 05/15/17 08:30 06/14/17 08:29 05/18/17 07:57 1 EA Acetylcysteine (Mucomyst 20% Inh Soln) 3 ml TIDR INH 05/15/17 15:00 06/14/17 14:59 05/17/17 19:09 3 ML Furosemide 20 mg/ Syringe 2 ml @ 4 mls/min ONE ONCE IV 05/15/17 11:15 05/15/17 11:16 DC 05/15/17 14:15 4 MLS/MIN Levofloxacin (Levaquin Tab) 750 mg HS PO 05/15/17 21:00 05/20/17 20:59 05/17/17 20:13 750 MG Tiotropium [place] (Spiriva Handihaler Inhaler) 1 puff QAM INH 05/16/17 08:00 06/15/17 07:59 05/18/17 07:46 1 PUFF Folic Acid (Folvite Tab) 1 mg QAM PO 05/16/17 09:30 06/15/17 09:29 05/18/17 07:48 1 MG Magnesium Sulfate 1 gm/Prmx 100 ml @ 100 mls/hr Q1H IV 05/16/17 10:00 05/16/17 11:59 DC 05/17/17 00:54 100 MLS/HR Methylprednisolone Sodium Succinate 40 mg/Syringe 0.64 ml @ 1.5 mls/min Q12H IV 05/17/17 02:00 06/11/17 22:59 05/18/17 02:27 1.5 MLS/MIN Magnesium Sulfate 1 gm/Prmx 100 ml @ 100 mls/hr Q1H IV 05/17/17 09:00 05/17/17 10:59 DC 05/17/17 11:16 100 MLS/HR Nystatin (Mycostatin Susp) 5 ml QID PO 05/17/17 17:00 05/27/17 16:59 05/18/17 07:46 5 ML Subjective Mr. Hagan is comfortable in bed. His breathing continues to very slowly improve. His energy also seems up a bit. He received 2 units of PRBCs yesterday for a hemoglobin in the 7s. He responded appropriately. Review of Systems: Constitutional: No fever, No chills Respiratory: + cough, + shortness of breath Cardiovascular: No chest pain Abdomen: No pain, No nausea Musculoskeletal: No joint pain, No muscle pain Heme: No abnormal bleeding/bruising Vital Signs Vital Signs Past 12 Hours Date Time Temp Pulse Resp B/P (MAP) Pulse Ox O2 Delivery O2 Flow Rate FiO2 05/18/17 08:00 Nasal Cannula 3.0 05/18/17 07:39 63 16 95 Nasal Cannula 3.0 05/18/17 07:16 36.9 58 18 119/68 (85) 93 Nasal Cannula 3.0 05/18/17 03:51 36.5 65 18 113/66 (82) 97 Room Air 05/18/17 00:00 Nasal Cannula 3.0 05/17/17 23:18 36.7 67 16 123/69 (87) 99 Room Air Physical Exam Constitutional: Level of Distress: NAD, chronically ill Psychiatric: Orientation: oriented except where noted Lungs: Auscuitation: pertinent finding (coarse breath sounds in all clay) Cardiovascular: Heart Auscultation: RRR Abdomen: Inspection & Palpation: soft, no tenderness, guarding & rebound Extremities: no edema Laboratory Last 24 Hours Test 05/17/17 11:33 05/18/17 05:39 Bedside Glucose 115 mg/dl White Blood Count 5.60 K/uL Red Blood Count 3.17 M/uL Hemoglobin 10.5 g/dL Hematocrit 33.6 % Mean Corpuscular Volume 106.0 fL Mean Corpuscular Hemoglobin 33.1 pg Mean Corpuscular Hemoglobin Concent 31.3 g/dl RDW Standard Deviation 71.3 fL RDW Coefficient of Variation 18.4 % Platelet Count 73 K/uL Mean Platelet Volume 8.6 fL Magnesium Level 1.7 mg/dl Assessment & Plan Mr. Hagan is feeling better and appears on track for discharge today. I will have my office set him up to return in a week or two to discuss next steps. His counts are recovering nicely with the folic acid. It appears he wasn't taking the supplements he was prescribed during chemo. Pemetrexed depletes folic acid and B12 and so we supplement patients during treatment. Those counts should continue to recover. His WBCs may rise out of the normal range and you may see some immature bone marrow forms in his periphery. This is due to overstimulation of the marrow in patients with hematinic deficiencies and is normal. We will sign off for now, but would be happy to return if he ends up staying in-house and additional issues arise.
[2017-05-18] MEDS ORDERED: FLV1 PO (10:28)
[2017-05-18] MEDS ORDERED: PRED10TA PO (10:28)
[2017-05-18] MEDS ORDERED: GFNSR600 PO (10:28)
[2017-05-18] MEDS ORDERED: IPRASOL4 INH (10:28)
[2017-05-18] MEDS ORDERED: LVQ750 PO (10:28)
[2017-05-18] MEDS ORDERED: SPRIN INH (10:28)
[2017-05-18] MEDS ORDERED: NEBMAC (10:28)
--- NOTE | 2017-05-18 10:31 | Discharge Instructions ---
Discharge Instructions Date of Service May 18, 2017. Admission Reason for Admission: Acute Respiratory Failure With Hypoxia,Hypercapnia Discharge Discharge Diagnosis / Problem: copd flare and pneumonia, low folic acid Discharge Goals Goal(s): Diagnostic testing, Therapeutic intervention Activity Recommendations Activity Limitations: as noted below Lifting Limitations: gradually increase as tolerated . Instructions / Follow-Up Instructions / Follow-Up It is very important that you take your folic acid it will help your blood counts and energy levels You should use your nebulizer unless instructed otherwise by pulmonary or primary doctor Take your prednisone as tapering dose but stay at 10 mg, one pill, a day unless told otherwise by pulmonary or primary doctor Current Hospital Diet Patient's current hospital diet: Regular Diet Discharge Diet Recommended Diet: Regular Diet Pending Studies Studies pending at discharge: no Laboratory Results Hemoglobin A1c Test 04/16/17 08:22 Range/Units Estimated Average Glucose 100 mg/dl Hemoglobin A1c 5.1 4.5-5.6 % Medical Emergencies . Who to Call and When: Medical Emergencies: If at any time you feel your situation is an emergency, please call 911 immediately. . Non-Emergent Contact Non-Emergency issues call your: Primary Care Provider, Oncologist Call Non-Emergent contact if: temperature is above 101, your pain is unusual for you . . "Provider Documentation" section prepared by Moo Anne. . VTE Core Measure Inpt VTE Proph given/why not?: SCD's
[2017-05-18] MEDS ORDERED: OXGN (10:32)
[2017-05-18 11:02] VITALS: BP 119/68; PULSE 63; TEMP 36.9; O2SAT 95
[2017-05-18 11:26] VITALS: PULSE 90; O2SAT 92
--- NOTE | 2017-05-18 16:09 | Discharge Summary ---
Discharge Summary Date of Service May 18, 2017. Discharge Summary Admission Date: May 12, 2017 at 21:36 Discharge Date: May 18, 2017 Discharge Disposition: Home Principal Diagnosis: copd exacerbation, metastatic lung cancer, pneumonia Problems/Secondary Diagnoses: (1) Hypoxia Status: Chronic (2) Metastatic lung cancer (metastasis from lung to other site) Status: Chronic (3) Pulmonary embolism, bilateral Status: Chronic Immunizations: Have You Had Influenza Vaccine: No History of Tetanus Vaccine?: No History of Pneumococcal: No History of Hepatitis B Vaccine: No Medication Reconciliation New Medications: Home O2 Therapy (Oxygen) Gas 3 LITERS NA CONTINOUS for 365 Days, #1 UNIT Nebulizer Machine (Home Use) (Nebulizer Machine (Home Use) ) Mis EA N/A UD for SOB/Wheezing, #1 Prednisone (Prednisone) 10 Mg Tab 10 MG PO UD, #42 TAB 4 Refills 4 a day x 4 days then 3 a day x 4 days then 2 a day x 4 days then 1 a day unless stopped by pulmonary doctor Folic Acid (Folic Acid) 1 Mg Tab 1 MG PO QAM, #90 TAB 3 Refills Guaifenesin Ext Rel (Mucinex Ext Rel) 600 Mg Tabcr 1200 MG PO Q12, #28 DOSE Ipratropium-Albuterol (Duoneb) 3 Ml Nebu 3 ML INH QIDR, #120 DOSE 6 Refills if improved may change from nebulized to respimat Levofloxacin (Levofloxacin) 750 Mg Tab 750 MG PO HS, #3 TAB Tiotropium [place] (Spiriva Handihaler) 5 Puff/90 Mcg Aerp 1 PUFF INH QAM, #1 INHALER 6 Refills Continued Medications: Albuterol Sulfate (Proventil Hfa) 108 Mcg/Act Aer 2 PUFFS INH QID PRN for Wheezing Budesonide/Formoterol Fumarate (Symbicort 160/4.5 Inhaler ) Aero 2 PUFFS INH BID, INHALER Enoxaparin (Lovenox) 40 Mg/0.4 Ml Inj 0.4 ML SQ DAILY for 365 Days, #30 SYR Fentanyl (Fentanyl) 75 Mcg/Hr Dis 75 MCG TD [id number] Finasteride (Finasteride) 5 Mg Tab 5 MG PO QAM for 14 Days, #14 TAB Lorazepam (Lorazepam) 1 Mg Tab 1 MG PO HS PRN for insomnia/anxiety, #30 TAB Tamsulosin HCl (Tamsulosin HCl) 0.4 Mg Cap 0.4 MG PO HS for 30 Days, #30 CAP Tramadol HCl (Tramadol HCl) 50 Mg Tab 50 MG PO Q4H PRN for Pain, #20 TAB Discontinued Medications: Ipratropium-Albuterol (Combivent Respimat) 1 Aer Aer 1 PUFFS INH QID PRN for SOB/Wheezing, INH Discharge Exam Review of Systems: Constitutional: No fever, No chills Respiratory: + shortness of breath, + dyspnea on exertion, No cough, No dyspnea at rest Cardiovascular: No chest pain, No edema Abdomen: No pain, No nausea, No vomiting, No diarrhea Musculoskeletal: No joint pain, No muscle pain, No swelling Physical Exam: General Appearance: WD/WN, + mild distress Eyes: normal inspection, sclerae normal Respiratory/Chest: no respiratory distress, + decreased breath sounds Cardiovascular: regular rate, rhythm, no murmur Abdomen / GI: normal bowel sounds, non tender, soft 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: alert, oriented x 3 Hospital Course 67 yo male with acute on chronic respiratory failure secondary to pneumonia poa , copd and metastatic lung cancer Acute/chronic hypercapnic & hypoxic respiratory failure - acute component secondary to COPD exacerbation +/- pneumonia. home O2 amount of 3 liters continuously. taper steroids as able, levauin last dose05/21, duonebs, mucinex, mucomyst nebs, Rx nebs at discharge COPD with severe exacerbation - clinically improved. Chest x-ray "progressive infiltrative changes." either pneumonia vs lymphangetic spread of his cancer pt is aware if this. stage 4 & progressive lung cancer - CT chest with progressive disease. Dr. Kory Ray and palliative care have both discussed hospice with patient; patient is not ready to initiate such. hypomagnesemia - replete Chronic pancytopenia -folic acid found to be low, started folic acid 1mg daily , verbally instructed to take folic acid daily, pt voiced understanding recent b12 and iron studies w/o deficiencies. s/p 2 units PRBCs this admission and tolerated well. . h/o DVT/PE - LLE doppler neg for DVT. cont lovenox 40mg once daily for DVT proph. he was taking this at home prior to admission. PAF - now in NSR. Poor candidate for anticoagulation given his thrombocytopenia and other comorbidities. 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 Controlled. BPH - voiding well, finasteride and tamsulosin. code status - no mech ventilation, no compressions, no medications, he is okay with cardioversion if needed thrush - has cleared will not have on discharges Total Time Spent: Greater than 30 minutes This includes examination of the patient, discharge planning, medication reconciliation, and communication with other providers. Discharge Instructions Please refer to the electronic Patient Visit Report (Discharge Instructions) for additional information.
== END 2017-05-18 11:52 | disposition home health service (06) | DRG 193 ==
LOC: C.EDC 15:18 → EDBD 15:18 → C.MSICU 21:36 → ENRESERV 21:40 → C.4E 05-14 17:36
PROVIDERS: ADMIT Hospitalist; ATTEND Internal Medicine
DX: J18.9 Pneumonia, unspecified organism (principal); J96.21 Acute and chronic respiratory failure with hypoxia; J96.22 Acute and chronic respiratory failure with hypercapnia; D61.810 Antineoplastic chemotherapy induced pancytopenia; J44.1 Chronic obstructive pulmonary disease with (acute) exacerbation; C34.90 Malignant neoplasm of unspecified part of unspecified bronchus or lung; C78.7 Secondary malignant neoplasm of liver and intrahepatic bile duct; C79.31 Secondary malignant neoplasm of brain; J44.0 Chronic obstructive pulmonary disease with (acute) lower respiratory infection; I50.9 Heart failure, unspecified; N40.0 Benign prostatic hyperplasia without lower urinary tract symptoms; E83.42 Hypomagnesemia; G89.4 Chronic pain syndrome; Z51.5 Encounter for palliative care; Z79.899 Other long term (current) drug therapy; Z87.891 Personal history of nicotine dependence; Z86.711 Personal history of pulmonary embolism; Z86.718 Personal history of other venous thrombosis and embolism

== ENCOUNTER → 2017-05-22 | Outpatient (CLI) | payer OTHER ==
[~2017-05-22] MED LIST changes: +FLV1 PO; +GFNSR600 PO; -IPRA1AER2 INH; +IPRASOL4 INH; +LVQ750 PO; +NEBMAC; +OPTIRAY 320 IV PRN; +OXGN; +SPRIN INH
--- NOTE | 2017-05-22 11:55 | DIAGNOSTIC IMAGING REPORT ---
(CHEST) THORAX WITH CT DOSE: 714.77 mGycm HISTORY: Metastatic disease LUNG ADENOCARCINOMA TECHNIQUE: Multiaxial CT images of the chest were performed following the intravenous administration of contrast. A dose lowering technique was utilized adhering to the principles of ALARA. COMPARISON: 05/13/2017 FINDINGS: Generally the examination is stable compared to the prior study. Diffuse bilateral pulmonary nodularity is unaltered. Mild improvement in infiltrative and minimal effusion-type changes at both lung bases. Stable blastic metastatic change involving the osseous structures. Central catheter remains in superior vena cava. Cortical scarring of liver is unchanged. Hyperdense nodule peripheral right hepatic lobe is unaltered. Hyperplastic and cystic change of the left adrenal and left kidney are similar. IMPRESSION: 1. Stable metastatic change throughout the lungs. 2. Slight improvement in aeration both lung bases with a mild improvement of the basilar infiltrative change. 3. Stable bilateral pleural thickening. The above report was generated using voice recognition software. It may contain grammatical, syntax or spelling errors. Electronically signed by: Colby Martinez M.D. 05/22/2017 11:54 AM Dictated Date/Time: 05/22/2017 11:48 AM
== END | disposition home or self-care (01) ==
LOC: C.CTS 11:15
PROVIDERS: ATTEND Internal Medicine Hematology & Oncology
DX: C34.80 Malignant neoplasm of overlapping sites of unspecified bronchus and lung (principal)

== ENCOUNTER 2017-06-14 17:22 | Inpatient (IN) | payer OTHER ==
[~2017-06-14] VITALS: Ht 170.2 cm; Wt 80.7 kg
[2017-06-14 00:02] VITALS: BP 112/57; PULSE 70; TEMP 37.4; O2SAT 90
[~2017-06-14 17:22] MED LIST changes: -NEBMAC; -OPTIRAY 320 IV PRN
[2017-06-14] MEDS ORDERED: ALBUTEROL 0.083% NEBU SOLN 3 ML VIAL INH STA (17:32)
[2017-06-14 17:56] LABS: HEMATOCRIT 33.9 % (42-52); HEMOGLOBIN 10.7 g/dL (14.0-18.0); MEAN CELL VOLUME 105.9 fL (80-100); MEAN CORPUSCULAR HEMOGLOBIN 33.4 pg (25-34); MEAN CORPUSCULAR HGB CONC 31.6 g/dl (32-36); RED CELL DISTRIBUTION WIDTH CV 14.9 % (11.5-14.5); WHITE BLOOD COUNT 5.39 K/uL (4.8-10.8)
--- NOTE | 2017-06-14 18:03 | DIAGNOSTIC IMAGING REPORT ---
CHEST ONE VIEW PORTABLE CLINICAL HISTORY: 67 years-old Male presenting with EVALUATE RESPIRATORY DISTRESS.DYSPNEA. TECHNIQUE: Portable upright AP view of the chest was obtained. COMPARISON: 05/17/2017. FINDINGS: Left subclavian Mediport terminates in the lower SVC. Atherosclerosis of the aortic arch. Vertex silhouette mildly enlarged, unchanged. Prominence of the hilar shadows, which may be vascular in origin. Interval decrease in patchy reticular nodular opacities at the right lung base. Scattered linear opacities in the left lung decreased from prior. Additional nodular opacities better appreciated on prior CT. Trace right pleural effusion may be present. No pneumothorax. Degenerative changes of the shoulders and spine. IMPRESSION: 1. Interval decrease in right reticulonodular opacities consistent with evolving/resolving inflammatory or infectious etiology. 2. Interval decrease in left basilar atelectasis or similar inflammatory or infectious changes. 3. No new focal infiltrate. 4. Metastatic disease better demonstrated on prior CT from 05/22/2017. 5. Prominence of the kamini likely relates to prominent right and left pulmonary arteries best seen on prior CT. Electronically signed by: Db Sibely M.D. 06/14/2017 6:02 PM Dictated Date/Time: 06/14/2017 5:58 PM
--- NOTE | 2017-06-14 18:05 | DIAGNOSTIC IMAGING REPORT ---
R SHOULDER MIN 2 VIEWS ROUTINE CLINICAL HISTORY: 67 years-old Male presenting with r shoulder pain . TECHNIQUE: Frontal and transscapular Y views of the right shoulder were obtained. COMPARISON: Chest x-ray from 05/17/2017. FINDINGS: Multifocal lucencies in the proximal right humerus and potentially in the distal clavicle. Nondisplaced fracture plane may be present in the distal clavicle. Glenohumeral and acromioclavicular joints congruent. No acute displaced fracture or malalignment. No radiographic soft tissue abnormality. Multifocal opacities in the right lung. IMPRESSION: Multiple lytic lesions suggested in the clavicle and proximal humerus concerning for metastatic disease. A pathologic nondisplaced fracture of the distal right clavicle is difficult to exclude. Electronically signed by: Db Sibley M.D. 06/14/2017 6:04 PM Dictated Date/Time: 06/14/2017 6:02 PM
[2017-06-14 18:06] LABS: INR 1.1 (0.9-1.1); PTT PATIENT 32.3 SECONDS (21.0-31.0)
[2017-06-14 18:17] LABS: ALBUMIN 2.6 gm/dl (3.4-5.0); ALKALINE PHOSPHATASE 92 U/L (45-117); ALT/SGPT 11 U/L (12-78); AST/SGOT 10 U/L (15-37); BLOOD UREA NITROGEN 24 mg/dl (7-18); CALCIUM 9.4 mg/dl (8.5-10.1); CREATININE 0.46 mg/dl (0.60-1.40); GLUCOSE 107 mg/dl (70-99); POTASSIUM 3.7 mmol/L (3.5-5.1); SODIUM 137 mmol/L (136-145)
[2017-06-14] MEDS ORDERED: IPRA1AER2 INH (18:23)
[2017-06-14] MEDS ORDERED: MORP15TA PO (18:25)
[2017-06-14 18:35] LABS: MEAN PLATELET VOLUME 8.2 fL (7.4-10.4); PLATELET COUNT 80 K/uL (130-400)
[2017-06-14 18:48] LABS: EOS % 0.2 %; EOS ABS # 0.01 K/uL (0-0.5); IG# 0.03 K/uL (0.00-0.02); LYMPH % 9.1 %; LYMPH ABS # 0.49 K/uL (1.2-3.4); MONO % 13.9 %; MONO ABS # 0.75 K/uL (0.11-0.59); NEUT % 76.2 %; NEUT ABS # 4.11 K/uL (1.4-6.5)
[2017-06-14 19:33] LABS: CARBON DIOXIDE 50 mmol/L (21-32)
[2017-06-14] MEDS ORDERED: METHYLPREDNISOLONE IV 40 MG in SYRINGE 0 ML IV SCH (19:45)
[2017-06-14] MEDS ORDERED: MoRPHine SULFATE 4 MG/ML 1 ML CARP\\VIAL IV STA (20:18)
[2017-06-14 20:23] VITALS: PULSE 100; O2SAT 92
[2017-06-14 20:41] VITALS: O2SAT 96
[2017-06-14] MEDS ORDERED: POLYETHYLENE (MIRALAX) 17 GM PACK PO PRN (21:00)
[2017-06-14] MEDS ORDERED: ALUMINUM/MAGNESIUM/SIMETH (MAALOX MAX) 30 ML UDC PO PRN (21:00)
[2017-06-14] MEDS ORDERED: MAGNESIUM HYDROXIDE SUSP 30 ML UDC PO PRN (21:00)
[2017-06-14] MEDS ORDERED: ONDANSETRON INJ 2 MG/ML 2 ML VIAL IV PRN (21:00)
--- NOTE | 2017-06-14 21:05 | EMERGENCY ROOM VISIT NOTE ---
History Report prepared by Deo: Matteo Campo Under the Supervision of: Dr. Santiago Gregory D.O. First contact with patient: 17:23 Stated Complaint: R SHOULDER PAIN History of Present Illness The patient is a 67 year old male who presents to the Emergency Room with complaints of persistent right shoulder pain four days ago and shortness of breath. He currently rates his pain a 7/10 in severity. He was seen by his PCP two days ago for similar symptoms. He was given an XR, which showed inconclusive. The patient was recently seen in the ED May 12, 2017 for hypercarbia. He notes baseline shortness of breath, though it is worse than normal. He has a baseline cough, though denies any changes in sputum. He has a history of COPD, CHF, CAD, PE, three cardiac stents, and metastatic lung cancer. His lung cancer has metastasized to his brain and liver. He is on Lovenox twice daily. 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 He states his hydroelectric station operator prefers his oxygen saturation stay between 88% and 92%. Patient notes that shortness of breath has been slightly worse for the past several days. His notes that he has been intermittently confused over the past 24 hours. This happened and is similar to his previous presentation. Pt denies headache, change in vision, fevers, chest pain, abdominal pain, nausea, vomiting, diarrhea, or pain with urination. The patient declined when asked if would like CPR or intubation if necessary. Source of History: patient Onset: four days Position: shoulder (right) Symptom Intensity: 7/0 Timing: other (persistent) Associated Symptoms: + cough (no change in sputum), + SOB, No fevers, No headache, No chest pain, No nausea, No vomiting, No abdominal pain, No diarrhea , No urinary symptoms (pain with urination) Note: He denies any change in vision. Review of Systems See HPI for pertinent positives & negatives. A total of 10 systems reviewed and were otherwise negative. Past Medical & Surgical Medical Problems: (1) Adenocarcinoma of unknown primary (2) COPD (chronic obstructive pulmonary disease) (3) Coronary artery disease (4) Hematuria (5) History of metastatic neoplastic disease (6) Hypoxia (7) Metastatic lung cancer (metastasis from lung to other site) (8) Pancytopenia (9) Pneumonia (10) Pulmonary embolism, bilateral (11) Sepsis (12) Shortness of breath Surgical Problems: (1) History of total replacement of right hip Family History CABG Cancer Social History Smoking Status: Former Smoker Drug Use: none Marital Status: in relationship Housing Status: lives with significant other Occupation Status: retired Current/Historical Medications Scheduled Budesonide/Formoterol Fumarate (Symbicort 160/4.5 Inhaler ), 2 PUFFS INH BID Enoxaparin (Lovenox), 0.4 ML SQ DAILY Fentanyl (Fentanyl), 75 MCG TD [id number] Finasteride (Finasteride), 5 MG PO QAM Folic Acid (Folic Acid), 1 MG PO QAM Guaifenesin Ext Rel (Mucinex Ext Rel), 1,200 MG PO Q12 Home O2 Therapy (Oxygen), 3 LITERS NA CONTINOUS Ipratropium-Albuterol (Duoneb), 3 ML INH QIDR Prednisone (Prednisone), 10 MG PO UD Tamsulosin HCl (Tamsulosin HCl), 0.4 MG PO HS Scheduled PRN Albuterol Sulfate (Proventil Hfa), 2 PUFFS INH QID PRN for Wheezing Ipratropium-Albuterol (Combivent Respimat), 1 PUFFS INH TID PRN for SOB/Wheezing Morphine Sulfate Ir (Morphine Sulfate Ir), 15 MG PO Q12 PRN for Pain Allergies Coded Allergies: No Known Allergies (Verified , 06/14/17) Physical Exam Vital Signs Date Time Temp Pulse Resp B/P (MAP) Pulse Ox O2 Delivery O2 Flow Rate FiO2 06/14/17 20:40 94 19 107/56 94 BiPAP 06/14/17 17:41 91 06/14/17 17:40 37.5 96 22 107/46 Nasal Cannula 5.0 97 06/14/17 17:40 85 Nasal Cannula 5.0 06/14/17 17:40 90 Nasal Cannula 6.0 Physical Exam GENERAL: Sitting up in bed, alert, chronically-ill and disheveled appearing, non -toxic EYE EXAM: normal conjunctiva. OROPHARYNX: no exudate, no erythema, lips, buccal mucosa, and tongue normal and mucous membranes are dry NECK: supple, no nuchal rigidity, no adenopathy, non-tender LUNGS: coarse breath sounds bilaterally with diffuse wheezing. Normal chest wall mechanics HEART: no murmurs, S1 normal and S2 normal ABDOMEN: abdomen soft, non-tender, normo-active bowel sounds, no masses, no rebound or guarding. BACK: Back is symmetrical on inspection and there is no deformity, no midline tenderness, no CVA tenderness. SKIN: no rashes and no bruising UPPER EXTREMITIES: upper extremities are grossly normal. Acute reproducible tenderness over right humeral head/trapezius/clavicle. LOWER EXTREMITIES: No pitting edema. Calves are equal and bilateral. NEURO EXAM: Normal sensorium, cranial nerves II-XII grossly intact, normal speech, no gross weakness of arms, no gross weakness of legs. Medical Decision & Procedures ER Provider Diagnostic Interpretation: Radiology results as stated below per my review and the radiologist's interpretation: CHEST ONE VIEW PORTABLE CLINICAL HISTORY: 67 years-old Male presenting with EVALUATE RESPIRATORY DISTRESS.DYSPNEA. TECHNIQUE: Portable upright AP view of the chest was obtained. COMPARISON: 05/17/2017. FINDINGS: Left subclavian Mediport terminates in the lower SVC. Atherosclerosis of the aortic arch. Vertex silhouette mildly enlarged, unchanged. Prominence of the hilar shadows, which may be vascular in origin. Interval decrease in patchy reticular nodular opacities at the right lung base. Scattered linear opacities in the left lung decreased from prior. Additional nodular opacities better appreciated on prior CT. Trace right pleural effusion may be present. No pneumothorax. Degenerative changes of the shoulders and spine. IMPRESSION: 1. Interval decrease in right reticulonodular opacities consistent with evolving/resolving inflammatory or infectious etiology. 2. Interval decrease in left basilar atelectasis or similar inflammatory or infectious changes. 3. No new focal infiltrate. 4. Metastatic disease better demonstrated on prior CT from 05/22/2017. 5. Prominence of the kamini likely relates to prominent right and left pulmonary arteries best seen on prior CT. Electronically signed by: Db Sibley M.D. 06/14/2017 6:02 PM Dictated Date/Time: 06/14/2017 5:58 PM R SHOULDER MIN 2 VIEWS ROUTINE CLINICAL HISTORY: 67 years-old Male presenting with r shoulder pain . TECHNIQUE: Frontal and transscapular Y views of the right shoulder were obtained. COMPARISON: Chest x-ray from 05/17/2017. FINDINGS: Multifocal lucencies in the proximal right humerus and potentially in the distal clavicle. Nondisplaced fracture plane may be present in the distal clavicle. Glenohumeral and acromioclavicular joints congruent. No acute displaced fracture or malalignment. No radiographic soft tissue abnormality. Multifocal opacities in the right lung. IMPRESSION: Multiple lytic lesions suggested in the clavicle and proximal humerus concerning for metastatic disease. A pathologic nondisplaced fracture of the distal right clavicle is difficult to exclude. Electronically signed by: Db Sibley M.D. 06/14/2017 6:04 PM Dictated Date/Time: 06/14/2017 6:02 PM Laboratory Results 06/14/17 17:45 Red Blood Count 3.20, Mean Corpuscular Volume 105.9, Mean Corpuscular Hemoglobin 33.4, Mean Corpuscular Hemoglobin Concent 31.6, Mean Platelet Volume 8.2, Neutrophils (%) (Auto) 76.2, Lymphocytes (%) (Auto) 9.1, Monocytes (%) ( Auto) 13.9, Eosinophils (%) (Auto) 0.2, Basophils (%) (Auto) 0.0, Neutrophils # (Auto) 4.11, Lymphocytes # (Auto) 0.49, Monocytes # (Auto) 0.75, Eosinophils # ( Auto) 0.01, Basophils # (Auto) 0.00 06/14/17 17:45 Test 06/14/17 17:45 06/14/17 19:45 White Blood Count 5.39 K/uL (4.8-10.8) Red Blood Count 3.20 M/uL (4.7-6.1) Hemoglobin 10.7 g/dL (14.0-18.0) Hematocrit 33.9 % (42-52) Mean Corpuscular Volume 105.9 fL (80-100) Mean Corpuscular Hemoglobin 33.4 pg (25-34) Mean Corpuscular Hemoglobin Concent 31.6 g/dl (32-36) Platelet Count 80 K/uL (130-400) Mean Platelet Volume 8.2 fL (7.4-10.4) Neutrophils (%) (Auto) 76.2 % Lymphocytes (%) (Auto) 9.1 % Monocytes (%) (Auto) 13.9 % Eosinophils (%) (Auto) 0.2 % Basophils (%) (Auto) 0.0 % Neutrophils # (Auto) 4.11 K/uL (1.4-6.5) Lymphocytes # (Auto) 0.49 K/uL (1.2-3.4) Monocytes # (Auto) 0.75 K/uL (0.11-0.59) Eosinophils # (Auto) 0.01 K/uL (0-0.5) Basophils # (Auto) 0.00 K/uL (0-0.2) RDW Standard Deviation 58.0 fL (36.4-46.3) RDW Coefficient of Variation 14.9 % (11.5-14.5) Immature Granulocyte % (Auto) 0.6 % Immature Granulocyte # (Auto) 0.03 K/uL (0.00-0.02) Basophilic Stippling 1+ Prothrombin Time 11.7 SECONDS (9.0-12.0) Prothromb Time International Ratio 1.1 (0.9-1.1) Activated Partial Thromboplast Time 32.3 SECONDS (21.0-31.0) Partial Thromboplastin Ratio 1.2 Venous Blood pH 7.30 (7.36-7.41) Venous Blood Partial Pressure CO2 100 mmHg (38.0-50.0) Venous Blood Partial Pressure O2 22 mmHg Venous Blood HCO3 48 mmol/L Venous Blood Oxygen Saturation < 60.0 % Venous Blood Base Excess 17.7 mEq/L Anion Gap mmol/L (3-11) Est Creatinine Clear Calc Drug Dose 160.8 ml/min Estimated GFR () 134.5 Estimated GFR (Non- 116.0 BUN/Creatinine Ratio 51.4 (10-20) Calcium Level 9.4 mg/dl (8.5-10.1) Total Bilirubin 0.5 mg/dl (0.2-1) Aspartate Amino Transf (AST/SGOT) 10 U/L (15-37) Alanine Aminotransferase (ALT/SGPT) 11 U/L (12-78) Alkaline Phosphatase 92 U/L (45-117) Troponin I < 0.015 ng/ml (0-0.045) Pro-B-Type Natriuretic Peptide 238 pg/ml (0-900) Total Protein 7.0 gm/dl (6.4-8.2) Albumin 2.6 gm/dl (3.4-5.0) Globulin 4.4 gm/dl (2.5-4.0) Albumin/Globulin Ratio 0.6 (0.9-2) Urine Color DK YELLOW Urine Appearance CLEAR (CLEAR) Urine pH 5.0 (4.5-7.5) Urine Specific [place] 1.031 (1.000-1.030) Urine Protein 1+ (NEG) Urine Glucose (UA) NEG (NEG) Urine Ketones NEG (NEG) Urine Occult Blood 2+ (NEG) Urine Nitrite NEG (NEG) Urine Bilirubin NEG (NEG) Urine Urobilinogen NEG (NEG) Urine Leukocyte Esterase NEG (NEG) Urine WBC (Auto) 1-5 /hpf (0-5) Urine RBC (Auto) 10-30 /hpf (0-4) Urine Hyaline Casts (Auto) 1-5 /lpf (0-5) Urine Epithelial Cells (Auto) 10-20 /lpf (0-5) Urine Bacteria (Auto) NEG (NEG) Medications Administered Medications (Trade) Dose Ordered Sig/Abbi Route Start Time Stop Time Status Last Admin Dose Admin Albuterol Sulfate (Ventolin 0.083% 2.5MG/3ML Neb) 2.5 mg NOW STAT INH 06/14/17 17:32 06/14/17 17:34 DC 06/14/17 18:03 2.5 MG Morphine Sulfate (MoRPHine SULFATE INJ) 4 mg NOW STAT IV 06/14/17 20:18 06/14/17 20:19 DC 06/14/17 20:27 4 MG ECG Indication: SOB/dyspnea Rate (beats per minute): 96 Rhythm: sinus rhythm Findings: nonspecific-ST abn (Lateral), PAC, ST elevation (Inferior consistent with EKG from 05/14/2017), other (RAD) Change: Patient's electrocardiogram interpreted by me. ED Course ED COURSE: Vital signs were reviewed and showed hypoxic. The patients medical record was reviewed The above diagnostic studies were performed and reviewed. ED treatments and interventions as stated above. 1725: The patient was evaluated in room C3. A complete history and physical examination was performed. 1731: Ordered Albuterol Sulfate 2.5 mg INH 1805: I spoke with the patients and she states the patients pulse ox is going into the 70s while sitting. 8: I reassessed the patient at this time. He is doing better. 0: Upon reevaluation, I updated the patient. I discussed my findings with the patient and he understands and agrees with the treatment plan. Based on the patients age, coexisting illnesses, exam and lab findings the decision to treat as an inpatient was made. The patient remained stable while under my care. The patient will be evaluated for further management. 1934: I spoke with claudia Phillips. We discussed the patient's case. The patient will be evaluated by the [facility] for further management. 1944: Ordered Methylprednisone Sodium Succinate 40 mg/Syringe 0.64 ml @ 1.5 mls/ min IV Medical Decision Differential diagnoses includes but is not limited to pneumonia, bronchitis, COPD/Asthma exacerbation, pneumothorax, pulmonary embolism, congestive heart failure, acute coronary syndrome. Etiologies such as fracture, dislocation, neurovascular compromise, compartment syndrome, soft tissue injury, as well as others were entertained. Patient is a 67-year-old male who presents to ER for shortness of breath and right shoulder pain. Troponin has been present for the past 4 days and gradually worsening. X-rays were obtained today and show possible lytic lesion' s. I do favor this likely cause of symptoms. CBC was unremarkable. BMP shows a CO2 of 50. This is slightly more elevated than his previous. LFTs all bilirubin, troponin were all unremarkable. Chest x-ray appears to be improving. UA was unremarkable. His shortness breath has been gradually worsening. notes that has been intermittently confused. ABG was obtained and shows a CO2 of 100 and a pH of 7.3. also notes that he has been having oxygen saturation saturations in the 70s at home. He was placed on BiPAP to blow off some of the CO2. We did titrate down the oxygen for a pulse ox of 88-92%. Patient was given nebs and steroids as well. I did update the family at bedside. Patient was given a dose of morphine for his shoulder pain. EKG was unchanged from previous with slight elevations in the inferior leads which are not new. He has no chest pain at this time. He has no shortness of breath as long as he is not exerting himself. Patient family were updated bedside. I did discuss the case with internal medicine for further workup. Medication Reconcilliation Current Medication List: was personally reviewed by me Blood Pressure Screening Patient's blood pressure: Normal blood pressure Consults Time Called: 1909 Consulting Physician: claudia Phillips Returned Call: [address] Pasquariello, hospitalist. We discussed the patient's case. The patient will be evaluated by the [facility] for further management. Impression Primary Impression: Acute respiratory failure with hypoxia and hypercarbia Additional Impression: Right shoulder pain Critical Care I have personally spent 35 minutes of critical care time in the direct management of this patient. This includes bedside care, interpretation of diagnostic studies, and testing, discussion with consultants, patient, and family members, and other required patient management activities. This 35 minutes is in excess of all separately billable procedures. Scribe Attestation The scribe's documentation has been prepared under my direction and personally reviewed by me in its entirety. I confirm that the note above accurately reflects all work, treatment, procedures, and medical decision making performed by me. Departure Information Dispostion Being Evaluated By Hospitalist Referrals Magan Felix M.D. (PCP) Problem Qualifiers Additional Impression: Right shoulder pain Chronicity: acute Qualified Codes: M25.511 - Pain in right shoulder
[2017-06-14] MEDS ORDERED: IPRATROPIUM BROMIDE/ALBUTEROL respimat INH INH PRN (21:15)
[2017-06-14] MEDS ORDERED: ALBUTEROL HFA 8 GM INHALER INH PRN (21:15)
--- NOTE | 2017-06-14 21:20 | History and Physical ---
History & Physical Date & Time of Service: Jun 14, 2017 at 21:13 Chief Complaint: R Shoulder Pain Primary Care Physician: Magan Felix M.D. History of Present Illness Source: patient, spouse, hospital records Patient is a 67 year old male with a PMH of metastatic lung cancer, COPD, CAD, and PE who presents to [facility] due to SOB and worsening shoulder pain His noted that yesterday the patients oxygen level went down to 71% at home and would spontaneously come back to normal levels. He has been having worsening shortness of breath with exertion. His also notes that he has been slightly confused today. he has a chronic cough. He uses 3-4 L of oxygen at home. He was here for COPD exacerbation in May and was discharged with steroid taper and antibiotics. He has also been having worsening R shoulder pain. He is on a 75mcg fentanyl patch at home and was this week he was started on morphine 15mg PO bid. In the ED he was found to have a PCO2 of 100 on VBG and was 85% on 6-7 L of nasal cannula O2. CXR did not show any worsening acute changes. Shoulder Xray showed progressive metastatic disease. He was given 4mg of morphine in the ED and was started on BiPaP. Past Medical/Surgical History Medical Problems: (1) Adenocarcinoma of unknown primary Permanent Comment: Metastatic disease to bone, liver, lungs Status post completion of radiation therapy to T5, right second and third ribs. Completed 11/14/2016. He received 3000 cGy. Status: Chronic (2) COPD (chronic obstructive pulmonary disease) Status: Chronic (3) Coronary artery disease Status: Chronic (4) Hypoxia Status: Chronic (5) Metastatic lung cancer (metastasis from lung to other site) Status: Chronic (6) Pulmonary embolism, bilateral Status: Chronic (7) Sepsis Status: Resolved Family History CABG Cancer Social History Smoking Status: Former Smoker Drug Use: none Marital Status: in relationship Housing status: lives with significant other Occupational Status: retired Immunizations History of Influenza Vaccine: No History of Tetanus Vaccine?: No History of Pneumococcal: No History of Hepatitis B Vaccine: No Multi-Drug Resistant Organisms History of MDRO: No Allergies Coded Allergies: No Known Allergies (Verified , 06/14/17) Home Medications Scheduled Budesonide/Formoterol Fumarate (Symbicort 160/4.5 Inhaler ), 2 PUFFS INH BID Enoxaparin (Lovenox), 0.4 ML SQ DAILY Fentanyl (Fentanyl), 75 MCG TD [id number] Finasteride (Finasteride), 5 MG PO QAM Folic Acid (Folic Acid), 1 MG PO QAM Guaifenesin Ext Rel (Mucinex Ext Rel), 1,200 MG PO Q12 Home O2 Therapy (Oxygen), 3 LITERS NA CONTINOUS Ipratropium-Albuterol (Duoneb), 3 ML INH QIDR Prednisone (Prednisone), 10 MG PO UD Tamsulosin HCl (Tamsulosin HCl), 0.4 MG PO HS Scheduled PRN Albuterol Sulfate (Proventil Hfa), 2 PUFFS INH QID PRN for Wheezing Ipratropium-Albuterol (Combivent Respimat), 1 PUFFS INH TID PRN for SOB/Wheezing Morphine Sulfate Ir (Morphine Sulfate Ir), 15 MG PO Q12 PRN for Pain Review of Systems Constitutional: + fatigue, No fever, No chills Respiratory: + cough, + sputum, + shortness of breath, + dyspnea on exertion Cardiovascular: No chest pain, No edema, No palpitations Abdomen: No pain, No nausea, No vomiting, No diarrhea, No constipation Musculoskeletal: + joint pain, No calf pain Genitourinary - Male: + hematuria, No dysuria, No urinary frequency Integumentary: No rash, No itch, No new/changing skin lesions Physical Exam Vital Signs Date Time Temp Pulse Resp B/P (MAP) Pulse Ox O2 Delivery O2 Flow Rate FiO2 06/14/17 20:40 94 19 107/56 94 BiPAP 06/14/17 17:41 91 06/14/17 17:40 37.5 96 22 107/46 Nasal Cannula 5.0 97 06/14/17 17:40 85 Nasal Cannula 5.0 06/14/17 17:40 90 Nasal Cannula 6.0 General Appearance: WD/WN, no apparent distress, + pertinent finding (on BiPaP) Head: normocephalic, atraumatic ENT: hearing grossly normal, pharynx normal Neck: supple, no JVD, no carotid bruits, trachea midline Respiratory/Chest: chest non-tender, no respiratory distress, no accessory muscle use, + crackles (small LLL crackles), + pertinent finding (on BiPaP) Cardiovascular: regular rate, rhythm, no murmur, normal peripheral pulses Abdomen/GI: normal bowel sounds, non tender, soft Extremities/Musculoskelatal: normal inspection, no pedal edema, normal range of motion, + pertinent finding (R shoulder very painful to palpation, shoulder is being held in the flexed position) Neurologic/Psych: alert, normal mood/affect, oriented x 3 Skin: normal color, warm/dry, no rash Diagnostics Laboratory Results Results Past 24 Hours Test 06/14/17 17:45 06/14/17 19:45 Range/Units White Blood Count 5.39 4.8-10.8 K/uL Red Blood Count 3.20 4.7-6.1 M/uL Hemoglobin 10.7 14.0-18.0 g/dL Hematocrit 33.9 42-52 % Mean Corpuscular Volume 105.9 80-100 fL Mean Corpuscular Hemoglobin 33.4 25-34 pg Mean Corpuscular Hemoglobin Concent 31.6 32-36 g/dl Platelet Count 80 130-400 K/uL Mean Platelet Volume 8.2 7.4-10.4 fL Neutrophils (%) (Auto) 76.2 % Lymphocytes (%) (Auto) 9.1 % Monocytes (%) (Auto) 13.9 % Eosinophils (%) (Auto) 0.2 % Basophils (%) (Auto) 0.0 % Neutrophils # (Auto) 4.11 1.4-6.5 K/uL Lymphocytes # (Auto) 0.49 1.2-3.4 K/uL Monocytes # (Auto) 0.75 0.11-0.59 K/uL Eosinophils # (Auto) 0.01 0-0.5 K/uL Basophils # (Auto) 0.00 0-0.2 K/uL RDW Standard Deviation 58.0 36.4-46.3 fL RDW Coefficient of Variation 14.9 11.5-14.5 % Immature Granulocyte % (Auto) 0.6 % Immature Granulocyte # (Auto) 0.03 0.00-0.02 K/uL Basophilic Stippling 1+ Prothrombin Time 11.7 9.0-12.0 SECONDS Prothromb Time International Ratio 1.1 0.9-1.1 Activated Partial Thromboplast Time 32.3 21.0-31.0 SECONDS Partial Thromboplastin Ratio 1.2 Venous Blood pH 7.30 7.36-7.41 Venous Blood Partial Pressure CO2 100 38.0-50.0 mmHg Venous Blood Partial Pressure O2 22 mmHg Venous Blood HCO3 48 mmol/L Venous Blood Oxygen Saturation < 60.0 % Venous Blood Base Excess 17.7 mEq/L Sodium Level 137 136-145 mmol/L Potassium Level 3.7 3.5-5.1 mmol/L Chloride Level 89 98-107 mmol/L Carbon Dioxide Level 50 21-32 mmol/L Anion Gap 3-11 mmol/L Blood Urea Nitrogen 24 7-18 mg/dl Creatinine 0.46 0.60-1.40 mg/dl Est Creatinine Clear Calc Drug Dose 160.8 ml/min Estimated GFR () 134.5 Estimated GFR (Non- 116.0 BUN/Creatinine Ratio 51.4 10-20 Random Glucose 107 70-99 mg/dl Calcium Level 9.4 8.5-10.1 mg/dl Total Bilirubin 0.5 0.2-1 mg/dl Aspartate Amino Transf (AST/SGOT) 10 15-37 U/L Alanine Aminotransferase (ALT/SGPT) 11 12-78 U/L Alkaline Phosphatase 92 45-117 U/L Troponin I < 0.015 0-0.045 ng/ml Pro-B-Type Natriuretic Peptide 238 0-900 pg/ml Total Protein 7.0 6.4-8.2 gm/dl Albumin 2.6 3.4-5.0 gm/dl Globulin 4.4 2.5-4.0 gm/dl Albumin/Globulin Ratio 0.6 0.9-2 Urine Color DK YELLOW Urine Appearance CLEAR CLEAR Urine pH 5.0 4.5-7.5 Urine Specific [place] 1.031 1.000-1.030 Urine Protein 1+ NEG Urine Glucose (UA) NEG NEG Urine Ketones NEG NEG Urine Occult Blood 2+ NEG Urine Nitrite NEG NEG Urine Bilirubin NEG NEG Urine Urobilinogen NEG NEG Urine Leukocyte Esterase NEG NEG Urine WBC (Auto) 1-5 0-5 /hpf Urine RBC (Auto) 10-30 0-4 /hpf Urine Hyaline Casts (Auto) 1-5 0-5 /lpf Urine Epithelial Cells (Auto) 10-20 0-5 /lpf Urine Bacteria (Auto) NEG NEG Diagnostic Radiology CXR 1. Interval decrease in right reticulonodular opacities consistent with evolving/resolving inflammatory or infectious etiology. 2. Interval decrease in left basilar atelectasis or similar inflammatory or infectious changes. 3. No new focal infiltrate. 4. Metastatic disease better demonstrated on prior CT from 05/22/2017. 5. Prominence of the kamini likely relates to prominent right and left pulmonary arteries best seen on prior CT. Shoulder XRAY Multiple lytic lesions suggested in the clavicle and proximal humerus concerning for metastatic disease. A pathologic nondisplaced fracture of the distal right clavicle is difficult to exclude. EKG nonspecific-ST abn (Lateral), PAC, ST elevation (Inferior consistent with EKG from 05/14/2017), other (RAD) Impression Assessment and Plan 67 yo male with acute on chronic respiratory failure secondary COPD exacerbation and possible worsening lung cancer. Was also found to have metastatic disease to the R shoulder Acute/chronic hypercapnic & hypoxic respiratory failure - acute component secondary to COPD exacerbation -home O2 amount of 3 liters continuously. - VGB w Co2 of 100 - methylpred given in the ED 40mg, repeat 20mg solumedrol IV in the am - duonebs, continue home inhalers, mucomyst nebs Metastatic Progressive Lung Cancer - fentanyl patch increased to 100mcg from 75mcg - continue oral morphine 15mg bid and added dilaudid 0.5mg q2 PRN for pain while increase fentanyl patch dose kicks in - new metastatic lesions to the left shoulder, xray unable to visualize if there is a fracture - patient recently started on new chemo med called optiva - Dr. Biggs and palliative discussed hospice at last admission and patient not ready to initiate Chronic pancytopenia likely secondary to metastatic lung cancer - continue folic acid 1mg daily - hgb currently 10.7 which is higher than baseline - b12 and iron w.out deficiencies from previous labs Hx of DVT and PE - continue lovenox 40mg once daily Paroxysmal Atrial Fibrillation - poor candidate for anticoag due to thrombocytopenia and comorbidities BPH - voiding well - finasteride and tamsulosin. DNR Attending addendum: I have physically seen this patient, have supervised the medical residents activities, and agree with the H&P unless as otherwise noted. Assessment and Plan: Acute respiratory failure with hypoxia and hypercapnia/COPD exacerbation/ progressive metastatic lung cancer-- Solu-Medrol IV Nasal cannula 3 L O2, titrate to keep pulse ox greater than or equal to 92% Duonebs every 4 hours while awake and every 2 hours when necessary. Mucomyst Increase fentanyl patch from 75-100 mcg every 72 hours Continue morphine sulfate 15 mg twice daily Dilaudid 0.5 mg IV every 2 hours as needed breakthrough pain Level of Care Telemetry Advanced Directives Existing Advance Directive: Yes Existing Living Will: Yes Resuscitation Status DO NOT RESUSCITATE VTE Prophylaxis VTE Risk Assessment Done? Y/N: Yes Risk Level: High Given or contraindicated: Enoxaparin (Lovenox)SQ
[2017-06-14 21:22] VITALS: PULSE 100; O2SAT 92
[2017-06-14] MEDS: HYDROmorphone INJ 0.5 MG/0.5 ML SYR IV PRN (21:49)
[2017-06-14 21:50] VITALS: BP 116/69; PULSE 95; TEMP 37.8; O2SAT 89; Ht 170.2 cm; Wt 80.7 kg
[2017-06-14] MEDS: FENTANYL 100 MCG/HR TDSY TD SCH (22:53)
[2017-06-14] MEDS: TAMSULOSIN HCL 0.4 MG CAP PO SCH (23:21)
[2017-06-14] MEDS ORDERED: IV FLUIDS COMPLETED PRN (23:45)
[2017-06-14] MEDS ORDERED: NURSING VERBAL MED ORDER ONE (23:45)
[2017-06-15] VITALS (15 sets, daily range): BP systolic 100–123; BP diastolic 43–70; PULSE 60–77; TEMP 36.2–37; O2SAT 89–94
[2017-06-15] MEDS: CHECK FENTANYL PATCH PLACEMENT SCH ×3 (00:10→16:18)
[2017-06-15] MEDS: MoRPHine SULFATE IR 15 MG TAB (IMMEDIATE RELEASE) PO PRN (00:55)
[2017-06-15] MEDS: ALBUT/IPRATROP 3MG/0.5MG NEB 3 ML VIAL INH SCH ×4 (07:20→19:07)
[2017-06-15] MEDS: ACETYLCYSTEINE 20% INHAL SOLN ***DISPENSED BY RESP. INH SCH ×2 (07:20→19:07)
[2017-06-15 07:30] LABS: HEMATOCRIT 29.1 % (42-52); HEMOGLOBIN 9.5 g/dL (14.0-18.0); MEAN CELL VOLUME 103.6 fL (80-100); MEAN CORPUSCULAR HEMOGLOBIN 33.8 pg (25-34); MEAN CORPUSCULAR HGB CONC 32.6 g/dl (32-36); WHITE BLOOD COUNT 4.09 K/uL (4.8-10.8)
[2017-06-15 07:32] LABS: MEAN PLATELET VOLUME 8.8 fL (7.4-10.4); PLATELET COUNT 79 K/uL (130-400)
[2017-06-15] MEDS ORDERED: SODIUM CHLORIDE 0.9% IV STA (07:40)
[2017-06-15] MEDS ORDERED: VANCOMYCIN IV STA (07:40)
[2017-06-15] MEDS ORDERED: PIPERACILL/TAZOBAC CONSULT ACTIVE PRN (07:45)
[2017-06-15] MEDS ORDERED: VANCOMYCIN CONSULT ACTIVE PRN ×2 (07:45)
[2017-06-15] MEDS ORDERED: VANCOMYCIN INJ 2,000 MG in SODIUM CHLORIDE 0.9% 500ML 500 ML IV STA (07:49)
[2017-06-15 07:51] LABS: IG# 0.02 K/uL (0.00-0.02); LYMPH % 8.8 %; LYMPH ABS # 0.36 K/uL (1.2-3.4); MONO % 4.6 %; MONO ABS # 0.19 K/uL (0.11-0.59); NEUT % 86.1 %; NEUT ABS # 3.52 K/uL (1.4-6.5)
[2017-06-15] MEDS ORDERED: PIPERACILL/TAZOBAC IV 4.5 GM in DEXTROSE 5% 100ML IV STA (07:52)
[2017-06-15] MEDS: HYDROmorphone INJ 0.5 MG/0.5 ML SYR IV PRN ×6 (07:55→22:17)
[2017-06-15] MEDS: BUDESONIDE/FORMOTEROL FUMARATE 160/4.5 60 PUFFS/INHALER INH SCH ×2 (08:12→19:44)
[2017-06-15] MEDS: ENOXAPARIN 40 MG/0.4 ML SYR SQ SCH (08:13)
[2017-06-15] MEDS: FINASTERIDE 5 MG TAB PO SCH (08:14)
[2017-06-15] MEDS: GUAIFENESIN 600 MG TABCR PO SCH ×2 (08:14→19:45)
[2017-06-15 08:23] LABS: ALBUMIN 2.4 gm/dl (3.4-5.0); CALCIUM 9.1 mg/dl (8.5-10.1); CREATININE 0.39 mg/dl (0.60-1.40); TOTAL PROTEIN 6.3 gm/dl (6.4-8.2)
[2017-06-15] MEDS ORDERED: VANCOMYCIN INJ 1,000 MG in SODIUM CHLORIDE 0.9% 250ML 250 ML IV SCH (09:00)
[2017-06-15] MEDS ORDERED: METHYLPREDNISOLONE IV 20 MG in SYRINGE 0 ML IV SCH (09:00)
--- NOTE | 2017-06-15 09:14 | Pharmacy Progress Note ---
Pharmacy Abx Initial Consult Date of Service Jun 15, 2017. Pharmacy Dosing Scope Date of Consult: 06/15/17 Consultation requested by: Dr. Grigsby Pharmacy is consulted to initiate Vanco/Zosyn IV dosing therapy, order appropriate labs and adjust drug dose/frequency. Subjective The patient is a 67 year old male admitted on Jun 14, 2017 at 21:00. Objective Height (Feet): 5 Height (Inches): 7.00 Weight (Kilograms): 76.900 Vital Signs (Past 12Hrs) Vital Signs Past 12 Hours Date Time Temp Pulse Resp B/P (MAP) Pulse Ox O2 Delivery O2 Flow Rate FiO2 06/15/17 07:40 36.5 63 18 100/55 (70) 94 Nasal Cannula 4.0 06/15/17 07:20 63 16 93 Nasal Cannula 3.5 06/15/17 04:06 36.2 63 18 110/67 (81) 94 BiPAP 35 06/15/17 04:00 BiPAP 4.0 97 06/15/17 02:07 70 90 35 06/15/17 00:00 89 Nasal Cannula 4.0 97 BiPAP 06/14/17 21:50 37.8 95 20 116/69 89 Nasal Cannula 4.0 06/14/17 21:29 89 20 96/42 90 Lab Results (24Hrs) Laboratory Tests (24 Hours) Test 06/15/17 07:15 06/15/17 08:06 White Blood Count 4.09 K/uL (4.8-10.8) L Red Blood Count 2.81 M/uL (4.7-6.1) L Hemoglobin 9.5 g/dL (14.0-18.0) L Hematocrit 29.1 % (42-52) L Mean Corpuscular Volume 103.6 fL (80-100) H Mean Corpuscular Hemoglobin 33.8 pg (25-34) Mean Corpuscular Hemoglobin Concent 32.6 g/dl (32-36) Platelet Count 79 K/uL (130-400) L Mean Platelet Volume 8.8 fL (7.4-10.4) Neutrophils (%) (Auto) 86.1 % Lymphocytes (%) (Auto) 8.8 % Monocytes (%) (Auto) 4.6 % Eosinophils (%) (Auto) 0.0 % Basophils (%) (Auto) 0.0 % Neutrophils # (Auto) 3.52 K/uL (1.4-6.5) Lymphocytes # (Auto) 0.36 K/uL (1.2-3.4) L Monocytes # (Auto) 0.19 K/uL (0.11-0.59) Eosinophils # (Auto) 0.00 K/uL (0-0.5) Basophils # (Auto) 0.00 K/uL (0-0.2) Procalcitonin < 0.05 ng/ml (0-0.5) Assessment & Plan Assessment Mr. Hagan is known to the pharmacy kinetic team from previous admissions. Will initiate a dosing regimen similar to previous hospital stays. He is being empirically treated with Vancomycin and Zosyn. Will need to contact medical team if antbx are to continue beyond 48hrs. Plan Vanco: * Vancomycin 2000mg (26mg/kg) to achieve a peak of ~37mcg/mL * Then vancomycin 1250mg (16mg/kg) q8 hours * Goal trough for empiric indication: 15-20mcg/mL * Trough ordered for 06/16 @ 1330, this will be at true css Zosyn: * Zosyn 4.5g 30 min bolus then EI Zosyn 3.375g q8, appropriate for clinical status and eCrCl> 20cc/min Pharmacy will continue to follow and will adjust dose/frequency as necessary. Thank you.
[2017-06-15 09:44] LABS: POTASSIUM 4.4 mmol/L (3.5-5.1)
[2017-06-15 12:06] LABS: INFLUENZA A PCR Neg for Influ A (NEG); INFLUENZA B PCR Neg for Influ B (NEG)
--- NOTE | 2017-06-15 13:36 | Family Medicine Progress Note ---
Progress Note Date of Service Jun 15, 2017. Subjective Pt evaluation today including: conversation w/ patient, physical exam, chart review, lab review, review of studies Pain: 4 PO Intake: WNL Voiding: no voiding problems Patient states that he does not feel SOB however right shoulder pain is ongoing At BL the patient notes that he does have SOBOE and a non productive cough but this is unchanged Constitutional: No fever Eyes: No worsening of vision ENT: No hearing loss Respiratory: + cough, + wheezing, + shortness of breath, + dyspnea on exertion, + dyspnea at rest, No sputum Cardiovascular: No chest pain, No palpitations Abdomen: No pain, No nausea, No vomiting, No diarrhea, No constipation Musculoskeletal: + joint pain Male : No dysuria Neurologic: + weakness, No balance problems Psychiatric: No depression symptoms Heme: No abnormal bleeding/bruising Endo: + fatigue Skin: No rash Medications Medications Administered Medications (Trade) Dose Ordered Sig/Abbi Route Start Time Stop Time Status Last Admin Dose Admin Albuterol Sulfate (Ventolin 0.083% 2.5MG/3ML Neb) 2.5 mg NOW STAT INH 06/14/17 17:32 06/14/17 17:34 DC 06/14/17 18:03 2.5 MG Morphine Sulfate (MoRPHine SULFATE INJ) 4 mg NOW STAT IV 06/14/17 20:18 06/14/17 20:19 DC 06/14/17 20:27 4 MG Fentanyl (Duragesic Patch) 100 mcg Q72H TD 06/14/17 22:00 06/28/17 21:59 06/14/17 22:53 100 MCG Miscellaneous Information (Check Fentanyl Patch Placement) 1 ea QS N/A 06/15/17 00:00 07/15/17 00:00 06/15/17 08:10 1 EA Hydromorphone HCl (Dilaudid Inj) 0.5 mg Q2HWA PRN IV 06/14/17 21:15 06/15/17 11:32 DC 06/15/17 07:55 0.5 MG Methylprednisolone Sodium Succinate 20 mg/Syringe 0.32 ml @ 1.5 mls/min TODAY@0900 IV 06/15/17 09:00 06/15/17 10:00 DC 06/15/17 08:11 1.5 MLS/MIN Budesonide/ Formoterol Fumarate (Symbicort 160/ 4.5 Inh) 2 puffs BID INH 06/15/17 09:00 07/15/17 08:59 06/15/17 08:12 2 PUFFS Enoxaparin Sodium (Lovenox Inj) 40 mg DAILY SQ 06/15/17 09:00 07/15/17 08:59 06/15/17 08:13 40 MG Finasteride (Proscar Tab) 5 mg QAM PO 06/15/17 09:00 07/15/17 08:59 06/15/17 08:14 5 MG Folic Acid (Folvite Tab) 1 mg QAM PO 06/15/17 09:00 07/15/17 08:59 06/15/17 08:15 1 MG Guaifenesin (Mucinex Contr Rel Tab) 1,200 mg Q12 PO 06/15/17 09:00 07/15/17 08:59 06/15/17 08:14 1,200 MG Albuterol/ Ipratropium (Duoneb) 3 ml QIDR INH 06/15/17 08:00 07/15/17 07:59 06/15/17 11:16 3 ML Morphine Sulfate (MoRPHine SULFATE IR TAB) 15 mg Q12 PRN PO 06/14/17 21:15 06/28/17 21:14 06/15/17 00:55 15 MG Tamsulosin HCl (Flomax Cap) 0.4 mg HS PO 06/14/17 21:55 07/14/17 21:54 06/14/17 23:21 0.4 MG Methylprednisolone Sodium Succinate (Solu-Medrol IV) 40 mg STK-MED ONCE .ROUTE 06/14/17 21:16 06/14/17 21:17 DC 06/14/17 21:19 40 MG Acetylcysteine (Mucomyst 20% Inh Soln) 3 ml BIDR INH 06/15/17 08:00 07/15/17 07:59 06/15/17 07:20 3 ML Heparin Sodium (Porcine) (Heparin 100 Unit/ml 5ml Flush) 5 ml STK-MED ONCE .ROUTE 06/14/17 23:16 06/14/17 23:17 DC 06/15/17 00:09 5 ML Vancomycin HCl 2000 mg/Sodium Chloride 540 ml @ 200 mls/hr NOW STAT IV 06/15/17 07:49 2/11/18 10:30 DC 06/15/17 09:08 200 MLS/HR Piperacillin Sod/ Tazobactam Sod 4.5 gm/Dextrose 120 ml @ 200 mls/hr NOW STAT IV 06/15/17 07:52 06/15/17 08:27 DC 06/15/17 09:09 200 MLS/HR Hydromorphone HCl (Dilaudid Inj) 1 mg Q2HWA PRN IV 06/15/17 11:45 06/28/17 21:14 06/15/17 12:59 1 MG Objective Vital Signs Date Time Temp Pulse Resp B/P (MAP) Pulse Ox O2 Delivery O2 Flow Rate FiO2 06/15/17 13:10 37.0 72 20 91 4.0 06/15/17 11:36 37.0 72 20 112/69 (83) 91 4.0 06/15/17 11:16 60 16 92 Nasal Cannula 3.5 06/15/17 07:40 36.5 63 18 100/55 (70) 94 Nasal Cannula 4.0 06/15/17 07:20 63 16 93 Nasal Cannula 3.5 06/15/17 04:06 36.2 63 18 110/67 (81) 94 BiPAP 35 06/15/17 04:00 BiPAP 4.0 97 06/15/17 02:07 70 90 35 06/15/17 00:00 89 Nasal Cannula 4.0 97 BiPAP 06/14/17 21:50 37.8 95 20 116/69 89 Nasal Cannula 4.0 06/14/17 21:29 89 20 96/42 90 06/14/17 20:41 96 35 06/14/17 20:40 94 19 107/56 94 BiPAP 06/14/17 20:23 100 92 40 06/14/17 17:41 91 06/14/17 17:40 37.5 96 22 107/46 Nasal Cannula 5.0 97 06/14/17 17:40 85 Nasal Cannula 5.0 06/14/17 17:40 90 Nasal Cannula 6.0 Physical Exam General Appearance: no apparent distress, + cachetic Eyes: normal inspection ENT: normal ENT inspection Neck: supple Respiratory/Chest: + decreased breath sounds (throughout), + crackles (bases), + wheezing (expiratory ) Cardiovascular: regular rate, rhythm, no murmur Abdomen: normal bowel sounds, non tender, soft Extremities: normal range of motion, non-tender, normal inspection, no pedal edema, no calf tenderness 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: alert, normal mood/affect, oriented x 3 Skin: normal color, warm/dry, no rash Laboratory Results Results Past 24 Hours Test 06/14/17 17:45 06/14/17 19:45 06/14/17 23:16 06/15/17 00:00 Range/Units White Blood Count 5.39 4.8-10.8 K/uL Red Blood Count 3.20 4.7-6.1 M/uL Hemoglobin 10.7 14.0-18.0 g/dL Hematocrit 33.9 42-52 % Mean Corpuscular Volume 105.9 80-100 fL Mean Corpuscular Hemoglobin 33.4 25-34 pg Mean Corpuscular Hemoglobin Concent 31.6 32-36 g/dl Platelet Count 80 130-400 K/uL Mean Platelet Volume 8.2 7.4-10.4 fL Neutrophils (%) (Auto) 76.2 % Lymphocytes (%) (Auto) 9.1 % Monocytes (%) (Auto) 13.9 % Eosinophils (%) (Auto) 0.2 % Basophils (%) (Auto) 0.0 % Neutrophils # (Auto) 4.11 1.4-6.5 K/uL Lymphocytes # (Auto) 0.49 1.2-3.4 K/uL Monocytes # (Auto) 0.75 0.11-0.59 K/uL Eosinophils # (Auto) 0.01 0-0.5 K/uL Basophils # (Auto) 0.00 0-0.2 K/uL RDW Standard Deviation 58.0 36.4-46.3 fL RDW Coefficient of Variation 14.9 11.5-14.5 % Immature Granulocyte % (Auto) 0.6 % Immature Granulocyte # (Auto) 0.03 0.00-0.02 K/uL Basophilic Stippling 1+ Prothrombin Time 11.7 9.0-12.0 SECONDS Prothromb Time International Ratio 1.1 0.9-1.1 Activated Partial Thromboplast Time 32.3 21.0-31.0 SECONDS Partial Thromboplastin Ratio 1.2 Venous Blood pH 7.30 7.39 7.36-7.41 Venous Blood Partial Pressure CO2 100 78 38.0-50.0 mmHg Venous Blood Partial Pressure O2 22 34 mmHg Venous Blood HCO3 48 46 mmol/L Venous Blood Oxygen Saturation < 60.0 61.3 % Venous Blood Base Excess 17.7 18.1 mEq/L Sodium Level 137 136-145 mmol/L Potassium Level 3.7 3.5-5.1 mmol/L Chloride Level 89 98-107 mmol/L Carbon Dioxide Level 50 21-32 mmol/L Anion Gap 3-11 mmol/L Blood Urea Nitrogen 24 7-18 mg/dl Creatinine 0.46 0.60-1.40 mg/dl Est Creatinine Clear Calc Drug Dose 160.8 ml/min Estimated GFR () 134.5 Estimated GFR (Non- 116.0 BUN/Creatinine Ratio 51.4 10-20 Random Glucose 107 70-99 mg/dl Calcium Level 9.4 8.5-10.1 mg/dl Total Bilirubin 0.5 0.2-1 mg/dl Aspartate Amino Transf (AST/SGOT) 10 15-37 U/L Alanine Aminotransferase (ALT/SGPT) 11 12-78 U/L Alkaline Phosphatase 92 45-117 U/L Troponin I < 0.015 0-0.045 ng/ml Pro-B-Type Natriuretic Peptide 238 0-900 pg/ml Total Protein 7.0 6.4-8.2 gm/dl Albumin 2.6 3.4-5.0 gm/dl Globulin 4.4 2.5-4.0 gm/dl Albumin/Globulin Ratio 0.6 0.9-2 Urine Color DK YELLOW Urine Appearance CLEAR CLEAR Urine pH 5.0 4.5-7.5 Urine Specific [place] 1.031 1.000-1.030 Urine Protein 1+ NEG Urine Glucose (UA) NEG NEG Urine Ketones NEG NEG Urine Occult Blood 2+ NEG Urine Nitrite NEG NEG Urine Bilirubin NEG NEG Urine Urobilinogen NEG NEG Urine Leukocyte Esterase NEG NEG Urine WBC (Auto) 1-5 0-5 /hpf Urine RBC (Auto) 10-30 0-4 /hpf Urine Hyaline Casts (Auto) 1-5 0-5 /lpf Urine Epithelial Cells (Auto) 10-20 0-5 /lpf Urine Bacteria (Auto) NEG NEG Influenza Type A (RT-PCR) Neg for Influ A NEG Influenza Type B (RT-PCR) Neg for Influ B NEG Test 06/15/17 07:15 06/15/17 08:06 Range/Units White Blood Count 4.09 4.8-10.8 K/uL Red Blood Count 2.81 4.7-6.1 M/uL Hemoglobin 9.5 14.0-18.0 g/dL Hematocrit 29.1 42-52 % Mean Corpuscular Volume 103.6 80-100 fL Mean Corpuscular Hemoglobin 33.8 25-34 pg Mean Corpuscular Hemoglobin Concent 32.6 32-36 g/dl Platelet Count 79 130-400 K/uL Mean Platelet Volume 8.8 7.4-10.4 fL Neutrophils (%) (Auto) 86.1 % Lymphocytes (%) (Auto) 8.8 % Monocytes (%) (Auto) 4.6 % Eosinophils (%) (Auto) 0.0 % Basophils (%) (Auto) 0.0 % Neutrophils # (Auto) 3.52 1.4-6.5 K/uL Lymphocytes # (Auto) 0.36 1.2-3.4 K/uL Monocytes # (Auto) 0.19 0.11-0.59 K/uL Eosinophils # (Auto) 0.00 0-0.5 K/uL Basophils # (Auto) 0.00 0-0.2 K/uL RDW Standard Deviation 56.0 36.4-46.3 fL RDW Coefficient of Variation 15.0 11.5-14.5 % Immature Granulocyte % (Auto) 0.5 % Immature Granulocyte # (Auto) 0.02 0.00-0.02 K/uL Sodium Level 139 136-145 mmol/L Potassium Level 4.4 3.5-5.1 mmol/L Chloride Level 92 98-107 mmol/L Carbon Dioxide Level 43 21-32 mmol/L Anion Gap 3.0 3-11 mmol/L Blood Urea Nitrogen 24 7-18 mg/dl Creatinine 0.39 0.60-1.40 mg/dl Est Creatinine Clear Calc Drug Dose 171.9 ml/min Estimated GFR () 143.9 Estimated GFR (Non- 124.2 BUN/Creatinine Ratio 62.0 10-20 Random Glucose 130 70-99 mg/dl Calcium Level 9.1 8.5-10.1 mg/dl Total Bilirubin 0.4 0.2-1 mg/dl Aspartate Amino Transf (AST/SGOT) 9 15-37 U/L Alanine Aminotransferase (ALT/SGPT) 10 12-78 U/L Alkaline Phosphatase 75 45-117 U/L Total Protein 6.3 6.4-8.2 gm/dl Albumin 2.4 3.4-5.0 gm/dl Globulin 3.9 2.5-4.0 gm/dl Albumin/Globulin Ratio 0.6 0.9-2 Procalcitonin < 0.05 0-0.5 ng/ml Assessment and Plan 67 yo male with acute on chronic respiratory failure secondary COPD exacerbation and possible worsening lung cancer. 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 Has helped in past. - once patient has improved symptomatology to revisit if patient has assigned a POA Chronic pancytopenia likely secondary to metastatic lung cancer - continue folic acid 1mg daily - Hgb stable - b12 and iron w.out deficiencies from previous labs - follow Hx of DVT and PE - continue lovenox 40mg once daily Paroxysmal Atrial Fibrillation - no anticoag secondary to comorbidities - currently NSR, not on rate controlling medications BPH - finasteride 5 mg and tamsulosin 0.4 mg DNR- confirmed Continued [facility] stay due to: multiple IV medications needed Discharge planning: uncertain Reviewed: Pt Seen/Exam by Me History having severe pain in right shoulder area. pain medication not helping. at bedside - wondering if radiation could help. helped in past Constitutional: denies: fever Respiratory: negative: short of breath General Appearance: moderate distress Respiratory: no respiratory distress, decreased breath sounds, rhonchi Cardiovascular: regular rate, rhythm 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: alert, oriented x 3 Skin Characteristics: warm/dry Assessment/Plan Resident Physician Supervision Note: I independently interviewed and examined the patient and verified the thurman history and physical, reviewed labs and image studies, discussed the case with the resident Dr. Grigsby and agree with the findings and care plan.
[2017-06-15] MEDS ORDERED: PIPERACILL/TAZOBAC IV 3.375 GM in DEXTROSE 5% 100ML 100 ML IV SCH (14:00)
[2017-06-15] MEDS ORDERED: VANCOMYCIN INJ 1,250 MG in SODIUM CHLORIDE 0.9% 250ML 250 ML IV SCH (14:00)
[2017-06-15] MEDS: METHYLPREDNISOLONE IV 20 MG in SYRINGE 0 ML IV SCH ×2 (14:56→19:44)
[2017-06-15] MEDS: TAMSULOSIN HCL 0.4 MG CAP PO SCH (19:45)
[2017-06-16] VITALS (8 sets, daily range): BP systolic 108–150; BP diastolic 53–75; PULSE 60–75; TEMP 36.4–36.8; O2SAT 92–100
[2017-06-16] MEDS: CHECK FENTANYL PATCH PLACEMENT SCH ×3 (00:20→15:59)
[2017-06-16] MEDS: HYDROmorphone INJ 0.5 MG/0.5 ML SYR IV PRN ×4 (00:23→07:48)
[2017-06-16 06:11] LABS: HEMATOCRIT 28.4 % (42-52); HEMOGLOBIN 9.4 g/dL (14.0-18.0); MEAN CELL VOLUME 101.1 fL (80-100); MEAN CORPUSCULAR HEMOGLOBIN 33.5 pg (25-34); MEAN CORPUSCULAR HGB CONC 33.1 g/dl (32-36); RED CELL DISTRIBUTION WIDTH CV 14.9 % (11.5-14.5); RED CELL DISTRIBUTION WIDTH SD 55.2 fL (36.4-46.3); WHITE BLOOD COUNT 7.29 K/uL (4.8-10.8)
[2017-06-16 06:12] LABS: MEAN PLATELET VOLUME 9.1 fL (7.4-10.4); PLATELET COUNT 99 K/uL (130-400)
[2017-06-16 06:49] LABS: CALCIUM 9.1 mg/dl (8.5-10.1); CREATININE 0.41 mg/dl (0.60-1.40); POTASSIUM 4.1 mmol/L (3.5-5.1)
[2017-06-16 06:55] LABS: IG# 0.02 K/uL (0.00-0.02); LYMPH % 6.7 %; LYMPH ABS # 0.49 K/uL (1.2-3.4); MONO % 8.4 %; MONO ABS # 0.61 K/uL (0.11-0.59); NEUT % 84.6 %; NEUT ABS # 6.17 K/uL (1.4-6.5)
[2017-06-16] MEDS: ALBUT/IPRATROP 3MG/0.5MG NEB 3 ML VIAL INH SCH ×4 (07:12→20:10)
[2017-06-16] MEDS: ACETYLCYSTEINE 20% INHAL SOLN ***DISPENSED BY RESP. INH SCH ×2 (07:13→20:10)
[2017-06-16] MEDS: METHYLPREDNISOLONE IV 20 MG in SYRINGE 0 ML IV SCH ×3 (07:49→21:59)
[2017-06-16] MEDS: GUAIFENESIN 600 MG TABCR PO SCH ×2 (07:53→21:59)
[2017-06-16] MEDS: FINASTERIDE 5 MG TAB PO SCH (07:53)
[2017-06-16] MEDS: BUDESONIDE/FORMOTEROL FUMARATE 160/4.5 60 PUFFS/INHALER INH SCH ×2 (07:54→21:59)
[2017-06-16] MEDS: ENOXAPARIN 40 MG/0.4 ML SYR SQ SCH (07:55)
[2017-06-16] MEDS ORDERED: NURSING VERBAL MED ORDER ONE (09:30)
[2017-06-16] MEDS ORDERED: HYDROmorphone INJ 2 MG/ML SYR/VIAL IV PRN (09:45)
[2017-06-16] MEDS ORDERED: VANCOMYCIN TROUGH ONE (13:30)
[2017-06-16] MEDS: HYDROmorphone INJ 2 MG/ML SYR/VIAL IV PRN ×2 (13:41→18:20)
--- NOTE | 2017-06-16 18:34 | Radiation Oncology Consult ---
Radiation Oncology Consult Date / Reason Jun 16, 2017. Physicians Radiation Oncologist: Dr. Patrick Terrazas Diagnosis (1) Metastatic carcinoma to bone Permanent Comment: Metastatic disease to bone, liver, lungs Status post completion of radiation therapy to T5, right second and third ribs. Completed 11/14/2016. He received 3000 cGy Last Edited By: Patrick Terrazas on Jun 16, 2017 18:33 History of Present Illness Mr. Hagan is a 67-year-old gentleman initially diagnosed with metastatic cancer involving the bone, liver and lungs who is well-known to our service. In November 2016, the patient elected to undergo palliative radiation therapy to T5 in the right second/third ribs. In interim, the patient has been receiving systemic therapy underneath the supervision of Dr. Genaro Biggs. More recently, the patient received Opdivo underneath Dr. Biggs supervision. He did have a CT of the chest on May 22, 2017 which revealed: "IMPRESSION: 1. Stable metastatic change throughout the lungs. 2. Slight improvement in aeration both lung bases with a mild improvement of the basilar infiltrative change. 3. Stable bilateral pleural thickening." More recently, the patient complained of significant pain involving his right shoulder. He presented to the emergency room and was admitted to [facility]. He did have a right shoulder on June 14, 2017 which revealed: "IMPRESSION: Multiple lytic lesions suggested in the clavicle and proximal humerus concerning for metastatic disease. A pathologic nondisplaced fracture of the distal right clavicle is difficult to exclude." We have been asked to evaluate the patient for consideration of palliative external beam radiation therapy to the right shoulder. Currently, the patient continues to have significant pain involving the right shoulder. He has difficulty abducting the arm. Past History Past Medical/Surgical History: CT, Angioplasty/Stent, Fractures, Pulmonary Emboli, Cancer, High Cholesterol, CHF, Heart Disease, COPD, Hypertension, Thrombophlebitis Social History Smoking Status: Former Smoker Hx Tobacco Use In Past Year?: No (Quit 2 years ago.) Quit Date: Nov 13, 2014 Do You Dip or Chew Tobacco: No Hx Alcohol Use: No Hx Substance Use : No Allergies Coded Allergies: No Known Allergies (Verified , 06/14/17) Home Medications Scheduled Budesonide/Formoterol Fumarate (Symbicort 160/4.5 Inhaler ), 2 PUFFS INH BID Enoxaparin (Lovenox), 0.4 ML SQ DAILY Fentanyl (Fentanyl), 75 MCG TD [id number] Finasteride (Finasteride), 5 MG PO QAM Folic Acid (Folic Acid), 1 MG PO QAM Guaifenesin Ext Rel (Mucinex Ext Rel), 1,200 MG PO Q12 Home O2 Therapy (Oxygen), 3 LITERS NA CONTINOUS Ipratropium-Albuterol (Duoneb), 3 ML INH QIDR Prednisone (Prednisone), 10 MG PO UD Tamsulosin HCl (Tamsulosin HCl), 0.4 MG PO HS Scheduled PRN Albuterol Sulfate (Proventil Hfa), 2 PUFFS INH QID PRN for Wheezing Ipratropium-Albuterol (Combivent Respimat), 1 PUFFS INH TID PRN for SOB/Wheezing Morphine Sulfate Ir (Morphine Sulfate Ir), 15 MG PO Q12 PRN for Pain Review of Systems Ear/Hearing: Ear Side: Bilateral Hearing Ability: Normal Hearing Aid: None Edema: Present?: No Location Body Site Modifier: Bilateral Type: Non-pitting Degree: Trace Physical Exam Height: 5 (Feet) 7.00 (Inches) 170.2 (Centimeters) 1.7018 (Meters) Weight: 169 (Pounds) 8.5 (Ounces) 76.900 (Kilograms) 58650.000 (Grams) Date Time Temp Pulse Resp B/P (MAP) Pulse Ox O2 Delivery O2 Flow Rate FiO2 06/16/17 15:50 36.4 75 22 150/75 (100) 96 4.0 06/16/17 15:07 71 16 92 Nasal Cannula 4.0 06/16/17 08:00 Nasal Cannula 4.0 06/16/17 07:57 36.6 60 16 118/70 (86) 100 Nasal Cannula 4.0 06/16/17 07:16 74 18 93 Nasal Cannula 4.0 06/16/17 03:54 36.6 61 18 112/65 (81) 93 Nasal Cannula 2.0 06/16/17 00:12 Nasal Cannula 4.0 06/15/17 22:40 36.8 72 16 100/55 (70) 93 Nasal Cannula 4.0 06/15/17 19:28 36.7 64 16 123/70 (87) 94 Nasal Cannula 4.0 06/15/17 19:08 68 18 93 Nasal Cannula 4.0 General Appearance: + mild distress Head: normocephalic Eyes: normal inspection ENT: normal ENT inspection Neck: supple, no adenopathy Respiratory/Chest: chest non-tender, lungs clear, normal breath sounds, no respiratory distress Cardiovascular: regular rate, rhythm, no edema, no gallop, no JVD Back: normal inspection Extremities: + pertinent finding (Patient did not allow me to examine his right shoulder. He was very tender to palpation involving the right clavicle. ) Neurologic/Psych: dynamo tender II-XII nml as tested, alert, oriented x 3 Skin: normal color, warm/dry, no rash Pain Management Patient Reports Pain: Yes Side: Right Pain Location: Shoulder Patient Preferred Pain Scale: 0 - 10 Initial Pain Intensity: 8.0 Level of Consciousness: Spontaneously Alert Relief Measures: Repositioning, Medication - Injection Pain Intervention: See MAR Pain Management Plan Please refer to current inpatient medication management. Laboratory Laboratory Results: not applicable Pathology Pathology Results: were reviewed Imaging Imaging Studies: were reviewed, and pertinent findings noted in HPI Assessment & Recommendations Assessment: Mr. Hagan is a 67-year-old gentleman with metastatic non-small cell lung carcinoma. In the outpatient setting, the patient has been receiving Opdivo underneath supervision of Dr. Genaro Biggs. He has been admitted to the hospital due to pain control issues regarding his right shoulder. Radiographic studies have revealed a lytic lesion involving his right distal clavicle. We have been asked to evaluate the patient regarding palliative external beam radiation therapy to his right shoulder for pain control. Recommendation: Palliative external beam radiation therapy to the right clavicle. 3000 cGy in 10 fractions at 300 cGy per fraction. Plan: 1. CT simulation for treatment planning today. Plan to start radiation therapy tomorrow. 2. Continue with current pain regiment as per primary inpatient team. 3. Follow-up with medical oncology in the outpatient setting. Rationale/Explanation: We have explained the indications, alternatives, benefits , risks and side effects of radiation therapy to the right shoulder. We have explained the most common side effects which include but are not limited to skin erythema, skin break down, pulmonary fibrosis, adhesion development, radiation pneumonitis, rib fracture, heart failure and heart disease, esophagitis, development of fistula, bone fracture, decreased range of motion in the right shoulder, lymphedema, fatigue and development of secondary malignancy. We explained to the patient than any overlap from previous radiation therapy will increase the risk of all side effects. We have explained the CT simulation process and treatment planning. We explained what to expect before, during and after treatment on a regular basis. The patient understands and would be willing to consent to treatment. The patient had multiple questions which were answered to their full satisfaction. Thank you for allowing us to participate in the care of this patient. This chart was completed in part utilizing [employer] Speech Voice Recognition software. Attempts were made to minimize the grammatical errors, random word insertions, pronoun errors and incomplete sentences. Any formal questions or concerns about the content, text or information contained within the body of this dictation should be directly addressed to the provider for clarification. Patrick Terrazas MD Department of Radiation Oncology [facility] Total Time In Consultation I spent 30 minutes examining and counseling the patient. I spent 15 minutes completing this note. NIKO
[2017-06-16] MEDS ORDERED: LIDODERM (LIDOCAINE) PATCH 5% TD ONE (19:15)
--- NOTE | 2017-06-16 19:48 | Family Medicine Progress Note ---
Progress Note Date of Service Jun 16, 2017. Subjective Pt evaluation today including: conversation w/ patient, physical exam, chart review, lab review, review of studies Pain: 02/11 Pain over the right shoulder Voiding: no voiding problems, no incontinence Patient complaining of persistent right shoulder pain despite increase in fentanyl patch dose as well as frequent Dilaudid coverage. Patient states his breathing is now at his baseline. Constitutional: No fever, No chills, No sweats, No fatigue Respiratory: No cough, No sputum, No wheezing, No shortness of breath Cardiovascular: No chest pain, No palpitations Abdomen: No pain, No nausea, No vomiting, No diarrhea, No constipation Musculoskeletal: + joint pain, + problem reported (Right shoulder pain) Medications Current Inpatient Medications Medications (Trade) Dose Ordered Sig/Abbi Route Start Time Stop Time Status Last Admin Dose Admin Acetaminophen (Tylenol Tab) 650 mg Q4H PRN PO 06/14/17 21:00 07/14/17 20:59 Al Hydrox/Mg Hydrox/Simethicone (Maalox Max Susp) 15 ml Q4H PRN PO 06/14/17 21:00 07/14/17 20:59 Magnesium Hydroxide (Milk Of Magnesia Susp) 30 ml Q12H PRN PO 06/14/17 21:00 07/14/17 20:59 Ondansetron HCl (Zofran Inj) 4 mg Q6H PRN IV 06/14/17 21:00 07/14/17 20:59 Polyethylene (Miralax Powder Packet) 17 gm DAILY PRN PO 06/14/17 21:00 07/14/17 20:59 Fentanyl (Duragesic Patch) 100 mcg Q72H TD 06/14/17 22:00 06/28/17 21:59 06/14/17 22:53 100 MCG Miscellaneous (Fentanyl Patch Remove & Waste) 1 ea Q3D N/A 06/17/17 22:00 07/17/17 21:59 Miscellaneous Information (Check Fentanyl Patch Placement) 1 ea QS N/A 06/15/17 00:00 07/15/17 00:00 06/16/17 15:59 1 EA Albuterol (Ventolin Hfa Inhaler) 2 puffs QID PRN INH 06/14/17 21:15 07/14/17 21:14 Budesonide/ Formoterol Fumarate (Symbicort 160/ 4.5 Inh) 2 puffs BID INH 06/15/17 09:00 07/15/17 08:59 06/16/17 07:54 2 PUFFS Enoxaparin Sodium (Lovenox Inj) 40 mg DAILY SQ 06/15/17 09:00 07/15/17 08:59 06/16/17 07:55 40 MG Finasteride (Proscar Tab) 5 mg QAM PO 06/15/17 09:00 07/15/17 08:59 06/16/17 07:53 5 MG Folic Acid (Folvite Tab) 1 mg QAM PO 06/15/17 09:00 07/15/17 08:59 06/16/17 07:53 1 MG Guaifenesin (Mucinex Contr Rel Tab) 1,200 mg Q12 PO 06/15/17 09:00 07/15/17 08:59 06/16/17 07:53 1,200 MG Albuterol/ Ipratropium (Combivent Respimat Inh) 1 puffs TID PRN INH 06/14/17 21:15 07/14/17 21:14 Albuterol/ Ipratropium (Duoneb) 3 ml QIDR INH 06/15/17 08:00 07/15/17 07:59 06/16/17 15:07 3 ML Morphine Sulfate (MoRPHine SULFATE IR TAB) 15 mg Q12 PRN PO 06/14/17 21:15 06/28/17 21:14 06/15/17 00:55 15 MG Tamsulosin HCl (Flomax Cap) 0.4 mg HS PO 06/14/17 21:55 07/14/17 21:54 06/15/17 19:45 0.4 MG Acetylcysteine (Mucomyst 20% Inh Soln) 3 ml BIDR INH 06/15/17 08:00 07/15/17 07:59 06/16/17 07:13 3 ML Heparin Sodium (Porcine) (Heparin 100 Unit/ml 5ml Flush) 5 ml PRN PRN IV 06/14/17 23:45 07/14/17 23:44 06/16/17 18:21 5 ML Miscellaneous (Iv Fluids Completed) 1 ea PRN PRN N/A 06/14/17 23:45 06/14/18 23:44 Methylprednisolone Sodium Succinate 20 mg/Syringe 0.32 ml @ 1.5 mls/min TID IV 06/15/17 14:00 07/15/17 13:59 06/16/17 13:40 1.5 MLS/MIN Hydromorphone HCl (Dilaudid Inj) 2 mg Q3H PRN IV 06/16/17 13:00 06/30/17 12:59 06/16/17 18:20 2 MG Objective Vital Signs Date Time Temp Pulse Resp B/P (MAP) Pulse Ox O2 Delivery O2 Flow Rate FiO2 06/16/17 15:50 36.4 75 22 150/75 (100) 96 4.0 06/16/17 15:07 71 16 92 Nasal Cannula 4.0 06/16/17 08:00 Nasal Cannula 4.0 06/16/17 07:57 36.6 60 16 118/70 (86) 100 Nasal Cannula 4.0 06/16/17 07:16 74 18 93 Nasal Cannula 4.0 06/16/17 03:54 36.6 61 18 112/65 (81) 93 Nasal Cannula 2.0 06/16/17 00:12 Nasal Cannula 4.0 06/15/17 22:40 36.8 72 16 100/55 (70) 93 Nasal Cannula 4.0 06/15/17 19:28 36.7 64 16 123/70 (87) 94 Nasal Cannula 4.0 Physical Exam General Appearance: WD/WN, + moderate distress Eyes: normal inspection, sclerae normal Respiratory/Chest: chest non-tender, no respiratory distress, + decreased breath sounds Cardiovascular: regular rate, rhythm, no edema, no gallop Abdomen: normal bowel sounds, non tender, soft Extremities: + pertinent finding (Significan right ) 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: alert, normal mood/affect, oriented x 3 Laboratory Results Results Past 24 Hours Test 06/16/17 05:09 Range/Units White Blood Count 7.29 4.8-10.8 K/uL Red Blood Count 2.81 4.7-6.1 M/uL Hemoglobin 9.4 14.0-18.0 g/dL Hematocrit 28.4 42-52 % Mean Corpuscular Volume 101.1 80-100 fL Mean Corpuscular Hemoglobin 33.5 25-34 pg Mean Corpuscular Hemoglobin Concent 33.1 32-36 g/dl Platelet Count 99 130-400 K/uL Mean Platelet Volume 9.1 7.4-10.4 fL Neutrophils (%) (Auto) 84.6 % Lymphocytes (%) (Auto) 6.7 % Monocytes (%) (Auto) 8.4 % Eosinophils (%) (Auto) 0.0 % Basophils (%) (Auto) 0.0 % Neutrophils # (Auto) 6.17 1.4-6.5 K/uL Lymphocytes # (Auto) 0.49 1.2-3.4 K/uL Monocytes # (Auto) 0.61 0.11-0.59 K/uL Eosinophils # (Auto) 0.00 0-0.5 K/uL Basophils # (Auto) 0.00 0-0.2 K/uL RDW Standard Deviation 55.2 36.4-46.3 fL RDW Coefficient of Variation 14.9 11.5-14.5 % Immature Granulocyte % (Auto) 0.3 % Immature Granulocyte # (Auto) 0.02 0.00-0.02 K/uL Sodium Level 135 136-145 mmol/L Potassium Level 4.1 3.5-5.1 mmol/L Chloride Level 90 98-107 mmol/L Carbon Dioxide Level 40 21-32 mmol/L Anion Gap 5.0 3-11 mmol/L Blood Urea Nitrogen 21 7-18 mg/dl Creatinine 0.41 0.60-1.40 mg/dl Est Creatinine Clear Calc Drug Dose 163.5 ml/min Estimated GFR () 141.0 Estimated GFR (Non- 121.7 BUN/Creatinine Ratio 50.9 10-20 Random Glucose 110 70-99 mg/dl Calcium Level 9.1 8.5-10.1 mg/dl Assessment and Plan 67 yo male with acute on chronic respiratory failure secondary COPD exacerbation and possible worsening lung cancer. 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 Plan to start radiation therapy tomorrow. Chronic pancytopenia likely secondary to metastatic lung cancer - Continue folic acid 1mg daily - Hgb stable --> Daily CBC Hx of DVT and PE - Lovenox 40mg Daily Paroxysmal Atrial Fibrillation - No anticoagulation secondary to comorbidities - Currently NSR BPH - Finasteride 5 mg - Tamsulosin 0.4 mg PT/OT - Order Placed Code Status - Do Not Resuscitate Resident Tracking Resident Involvement: Resident Care Provided Care Provided: Adult Hospital Medicine
[2017-06-16] MEDS: TAMSULOSIN HCL 0.4 MG CAP PO SCH (21:59)
[2017-06-17] VITALS (9 sets, daily range): BP systolic 100–138; BP diastolic 46–67; PULSE 58–75; TEMP 36.5–37.4; O2SAT 93–100
[2017-06-17] MEDS: HYDROmorphone INJ 2 MG/ML SYR/VIAL IV PRN ×6 (00:28→14:38)
[2017-06-17] MEDS: CHECK FENTANYL PATCH PLACEMENT SCH ×4 (00:30→23:04)
[2017-06-17] MEDS: MoRPHine SULFATE IR 15 MG TAB (IMMEDIATE RELEASE) PO PRN (05:51)
[2017-06-17 06:10] LABS: HEMATOCRIT 28.2 % (42-52); HEMOGLOBIN 9.3 g/dL (14.0-18.0); MEAN CELL VOLUME 101.8 fL (80-100); MEAN CORPUSCULAR HEMOGLOBIN 33.6 pg (25-34); RED CELL DISTRIBUTION WIDTH CV 15.2 % (11.5-14.5); RED CELL DISTRIBUTION WIDTH SD 56.7 fL (36.4-46.3); WHITE BLOOD COUNT 8.35 K/uL (4.8-10.8)
[2017-06-17 06:14] LABS: MEAN PLATELET VOLUME 8.7 fL (7.4-10.4); PLATELET COUNT 98 K/uL (130-400)
[2017-06-17 06:45] LABS: CALCIUM 8.9 mg/dl (8.5-10.1); CREATININE 0.4 mg/dl (0.60-1.40); POTASSIUM 4.4 mmol/L (3.5-5.1)
[2017-06-17] MEDS: ALBUT/IPRATROP 3MG/0.5MG NEB 3 ML VIAL INH SCH ×4 (07:17→19:13)
[2017-06-17] MEDS: ACETYLCYSTEINE 20% INHAL SOLN ***DISPENSED BY RESP. INH SCH ×2 (07:17→19:13)
--- NOTE | 2017-06-17 08:06 | Clinical Documentation Query ---
CLINICAL DOCUMENTATION QUERY QUERY 1 OF 2 Patient is a 67 year old male with a PMH of metastatic lung cancer, COPD, CAD, and PE who presents to [facility] due to SOB and worsening shoulder pain. In your clinical opinion is this patient being managed for: ( x ) Encephalopathy, resolved ( ) Not Agree ( ) Other explanation of clinical findings (Please Explain) ( ) Unable to determine (Please Define) ( ) Need to Discuss The medical record reflects the following clinical findings, treatment, and risk factors. Clinical Indicators: states increased confusion, SPO2 71-85% Treatment: O2 BiPAP, Albuterol INH, methylpred IV Risk Factors: COPD exerbation, acute hypoxic respiratory failure QUERY 2 OF 2 In your clinical opinion is this patient being managed for: ( x ) Antineoplastic chemotherapy induced pancytopenia ( ) Not Agree ( ) Other explanation of clinical findings (Please Explain) ( ) Unable to determine (Please Define) ( ) Need to Discuss The medical record reflects the following clinical findings, treatment, and risk factors. Clinical Indicators: WBC 5.39, RBC 3.20, current chemotherapy treatment for lung CA Treatment: Folic acid, serial CBCs Risk Factors: Lung CA, Optiva treatment Please clarify and document your clinical opinion in the progress notes and discharge summary. Terms such as "probable", "suspected", "likely", "questionable", "possible", or "still to be ruled out" are acceptable. IF IN AGREEMENT, YOU MUST DOCUMENT ABOVE DIAGNOSTIC STATEMENT IN DAILY PROGRESS NOTES AND DISCHARGE SUMMARY. This document is not part of the patient's record. Thank You, Beba Durand RN [phone]
[2017-06-17] MEDS: GUAIFENESIN 600 MG TABCR PO SCH ×2 (09:23→20:00)
[2017-06-17] MEDS: BUDESONIDE/FORMOTEROL FUMARATE 160/4.5 60 PUFFS/INHALER INH SCH ×2 (09:24→19:59)
[2017-06-17] MEDS: FINASTERIDE 5 MG TAB PO SCH (09:24)
[2017-06-17] MEDS: LIDODERM (LIDOCAINE) PATCH 5% TD SCH (09:25)
[2017-06-17] MEDS: ENOXAPARIN 40 MG/0.4 ML SYR SQ SCH (09:26)
--- NOTE | 2017-06-17 15:45 | Palliative Care Consultation ---
Consultation Date of Consultation: Jun 17, 2017. Requesting Physician: Dr. Chawla Attending Physician: Dr. Chawla; Dr. Welch Reason for Consultation: Pain management, metastatic right shoulder pain History of Present Illness This 67 year old male patient with multiple problems including non-small cell lung carcinoma, advanced COPD, and others listed below, presented to the hospital with severe, intractable right shoulder pain from metastatic lesion. Palliative care is consulted for pain management. He underwent CT simulation and started radiation therapy today. Patient's pain is 10/10 with any movement of the right arm, is still 3-4/10 just at rest. His fentanyl patch was increased from 75mcg/hr to 100mcg/hr upon admission. He has received a total of 12mg IV Dilaudid and 15mg oral morphine in last 24 hours. The oral morphine did not help at all, the Dilaudid works to take edge off. See plan below. Past Medical/Surgical History Medical History: Metastatic lung adenocarcinoma- mets to bone, liver, lung Advanced/severe COPD CAD Chronic respiratory failure on 3LNC at home PE Sepsis Family History father- cancer, uncertain heart disease Social History Smoking Status: Former Smoker History of Alcohol Use: No Drug Use: none Marital Status: in relationship Housing Status: lives with significant other Occupation Status: retired Review of Systems Constitutional: No weakness ENT: No trouble swallowing Respiratory: + cough, + shortness of breath, + dyspnea on exertion, No sputum, No wheezing Cardiac: No chest pain, No edema Abdomen: No pain, No nausea, No vomiting Psychiatric: No depression symptoms, No anxiety Allergies Coded Allergies: No Known Allergies (Verified , 06/14/17) Medications Current Inpatient Medications Medications (Trade) Dose Ordered Sig/Abbi Route Start Time Stop Time Status Last Admin Dose Admin Acetaminophen (Tylenol Tab) 650 mg Q4H PRN PO 06/14/17 21:00 07/14/17 20:59 Al Hydrox/Mg Hydrox/Simethicone (Maalox Max Susp) 15 ml Q4H PRN PO 06/14/17 21:00 07/14/17 20:59 Magnesium Hydroxide (Milk Of Magnesia Susp) 30 ml Q12H PRN PO 06/14/17 21:00 07/14/17 20:59 Ondansetron HCl (Zofran Inj) 4 mg Q6H PRN IV 2/10/18 21:00 07/14/17 20:59 Polyethylene (Miralax Powder Packet) 17 gm DAILY PRN PO 06/14/17 21:00 07/14/17 20:59 Fentanyl (Duragesic Patch) 100 mcg Q72H TD 06/14/17 22:00 06/28/17 21:59 06/14/17 22:53 100 MCG Miscellaneous (Fentanyl Patch Remove & Waste) 1 ea Q3D N/A 06/17/17 22:00 07/17/17 21:59 Miscellaneous Information (Check Fentanyl Patch Placement) 1 ea QS N/A 06/15/17 00:00 07/15/17 00:00 06/17/17 15:17 1 EA Albuterol (Ventolin Hfa Inhaler) 2 puffs QID PRN INH 06/14/17 21:15 07/14/17 21:14 Budesonide/ Formoterol Fumarate (Symbicort 160/ 4.5 Inh) 2 puffs BID INH 06/15/17 09:00 07/15/17 08:59 06/17/17 09:24 2 PUFFS Enoxaparin Sodium (Lovenox Inj) 40 mg DAILY SQ 06/15/17 09:00 07/15/17 08:59 06/17/17 09:26 40 MG Finasteride (Proscar Tab) 5 mg QAM PO 06/15/17 09:00 07/15/17 08:59 06/17/17 09:24 5 MG Folic Acid (Folvite Tab) 1 mg QAM PO 06/15/17 09:00 07/15/17 08:59 06/17/17 09:24 1 MG Guaifenesin (Mucinex Contr Rel Tab) 1,200 mg Q12 PO 06/15/17 09:00 07/15/17 08:59 06/17/17 09:23 1,200 MG Albuterol/ Ipratropium (Combivent Respimat Inh) 1 puffs TID PRN INH 06/14/17 21:15 07/14/17 21:14 Albuterol/ Ipratropium (Duoneb) 3 ml QIDR INH 06/15/17 08:00 07/15/17 07:59 06/17/17 15:16 3 ML Morphine Sulfate (MoRPHine SULFATE IR TAB) 15 mg Q12 PRN PO 06/14/17 21:15 06/28/17 21:14 06/17/17 05:51 15 MG Tamsulosin HCl (Flomax Cap) 0.4 mg HS PO 06/14/17 21:55 07/14/17 21:54 06/16/17 21:59 0.4 MG Acetylcysteine (Mucomyst 20% Inh Soln) 3 ml BIDR INH 06/15/17 08:00 07/15/17 07:59 06/17/17 07:17 3 ML Heparin Sodium (Porcine) (Heparin 100 Unit/ml 5ml Flush) 5 ml PRN PRN IV 06/14/17 23:45 07/14/17 23:44 06/17/17 13:20 5 ML Miscellaneous (Iv Fluids Completed) 1 ea PRN PRN N/A 06/14/17 23:45 06/14/18 23:44 Hydromorphone HCl (Dilaudid Inj) 2 mg Q3H PRN IV 06/16/17 13:00 06/30/17 12:59 06/17/17 13:20 2 MG Lidocaine (Lidoderm Patch 5%) 1 patch DAILY TD 06/17/17 08:00 07/17/17 07:59 06/17/17 09:25 1 PATCH Miscellaneous (Remove Lidoderm Patch) 1 ea DAILY@21 N/A 06/16/17 21:00 07/16/17 20:59 Prednisone (PredniSONE TAB) 40 mg QAM PO 06/17/17 08:00 07/17/17 07:59 06/17/17 09:23 40 MG Physical Exam Date Time Temp Pulse Resp B/P (MAP) Pulse Ox O2 Delivery O2 Flow Rate FiO2 06/17/17 15:19 63 16 94 Nasal Cannula 4.0 06/17/17 15:14 Nasal Cannula 4.0 Humidified Oxygen 06/17/17 11:41 66 16 100 Nasal Cannula 5.0 06/17/17 09:30 Nasal Cannula 4.0 Humidified Oxygen 06/17/17 07:20 36.5 58 20 103/46 (65) 98 Nasal Cannula 4.0 06/17/17 07:18 75 16 99 Nasal Cannula 4.0 06/17/17 04:00 36.6 71 20 138/67 (90) 96 4.0 06/17/17 01:25 Nasal Cannula 4.0 06/17/17 01:24 36.5 65 20 125/66 (85) 94 4.0 06/16/17 20:10 66 16 93 Nasal Cannula 4.0 06/16/17 19:22 36.8 64 20 108/53 (71) 96 3.0 06/16/17 15:50 36.4 75 22 150/75 (100) 96 4.0 06/16/17 15:40 92 Nasal Cannula 4.0 General Appearance: no apparent distress ENT: hearing grossly normal Neck: supple, no JVD Respiratory: no respiratory distress, no accessory muscle use, + decreased breath sounds (bilateral bases), + pertinent finding (mild coarseness in bases, likely chronic) Cardiovascular: regular rate, rhythm, no edema Abdomen: normal bowel sounds, non tender, soft 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: alert, normal mood/affect, oriented x 3 Skin: + pertinent finding (purple discoloration of ankles/shins) Laboratory Results Last 24 Hours Test 06/17/17 05:37 White Blood Count 8.35 K/uL Red Blood Count 2.77 M/uL Hemoglobin 9.3 g/dL Hematocrit 28.2 % Mean Corpuscular Volume 101.8 fL Mean Corpuscular Hemoglobin 33.6 pg Mean Corpuscular Hemoglobin Concent 33.0 g/dl RDW Standard Deviation 56.7 fL RDW Coefficient of Variation 15.2 % Platelet Count 98 K/uL Mean Platelet Volume 8.7 fL Sodium Level 136 mmol/L Potassium Level 4.4 mmol/L Chloride Level 96 mmol/L Carbon Dioxide Level 39 mmol/L Anion Gap 1.0 mmol/L Blood Urea Nitrogen 17 mg/dl Creatinine 0.40 mg/dl Est Creatinine Clear Calc Drug Dose 167.6 ml/min Estimated GFR () 142.5 Estimated GFR (Non- 122.9 BUN/Creatinine Ratio 42.9 Random Glucose 128 mg/dl Calcium Level 8.9 mg/dl Assessment & Plan Palliative Performance Scale: 70 % Problem list: Severe pain of right shoulder 2/2 mets SOB/TSE COPD exacerbation/acute on chronic hypercapnic respiratory failure Metastatic lung cancer Right shoulder metastatic lesion Chronic pancytopenia Palliative care recs: -Received first dose of Opdivo on Friday under Dr. Biggs's care- seemed to tolerate well. -Is receiving radiation to right shoulder under Dr. Patrick Terrazas's care while here in hospital. Hoping to have pain control from this. In the meantime, will start INSIDE SALES REPRESENTATIVE pump and see what his needs are. -Discontinue oral morphine. -Discontinue PRN Dilaudid. -Start Dilaudid INSIDE SALES REPRESENTATIVE: 0.2mg/hr basal rate. 0.2mg IV Q30min INSIDE SALES REPRESENTATIVE dose. This recommendation is based on patient's 24-hour total of 255mg oral morphine equivalent, which converts to Dilaudid 0.4mg/hr IV with 25% reduction for cross-tolerance. With new dose, patient will be able to receive 0.6mg IV Dilaudid per hour. Patient has no sedation or respiratory depression with Dilaudid so far. -Of note, we did touch on goals of care as this patient is familiar to me from previous admission. He is level 5 DNR, but wishes to continue with cancer treatment at this time. Thank you kindly for this consult. I will follow. Total time spent 50 minutes with greater than 50% of time spent with patient counseling, coordinating care, and discussing plan of care.
[2017-06-17] MEDS ORDERED: NALOXONE HCL 0.4 MG/1 ML VIAL/CARP IV PRN (16:00)
[2017-06-17] MEDS: SODIUM CHLORIDE 0.9% 1000ML 1,000 ML IV SCH (16:39)
[2017-06-17] MEDS: HYDROmorphone HCL 0.5MG/ML 50 ML CASSETTE IV PRN (16:47)
[2017-06-17] MEDS: TAMSULOSIN HCL 0.4 MG CAP PO SCH (19:59)
[2017-06-17] MEDS: FENTANYL 100 MCG/HR TDSY TD SCH (21:45)
[2017-06-17] MEDS: FENTANYL PATCH REMOVE & WASTE SCH (21:51)
--- NOTE | 2017-06-17 22:33 | Family Medicine Progress Note ---
Progress Note Date of Service Jun 17, 2017. Subjective Pt evaluation today including: conversation w/ patient, physical exam, chart review, lab review, review of studies Pain: 02/11 pain over right shoulder Voiding: no voiding problems, no incontinence Patient complains of continued pain in the right shoulder this morning, and despite continuous Dilaudid, Fentanyl patch, and Lidocaine Patch it is not touching his pain. He denies any shortness of breath and states his cough has improved. Additional Comments: See HPI for pertinent positives and negatives. A total of ten systems were reviewed and were otherwise negative. Medications Current Inpatient Medications Medications (Trade) Dose Ordered Sig/Abbi Route Start Time Stop Time Status Last Admin Dose Admin Acetaminophen (Tylenol Tab) 650 mg Q4H PRN PO 06/14/17 21:00 07/14/17 20:59 Al Hydrox/Mg Hydrox/Simethicone (Maalox Max Susp) 15 ml Q4H PRN PO 06/14/17 21:00 07/14/17 20:59 Magnesium Hydroxide (Milk Of Magnesia Susp) 30 ml Q12H PRN PO 06/14/17 21:00 07/14/17 20:59 Ondansetron HCl (Zofran Inj) 4 mg Q6H PRN IV 06/14/17 21:00 07/14/17 20:59 Polyethylene (Miralax Powder Packet) 17 gm DAILY PRN PO 06/14/17 21:00 07/14/17 20:59 Fentanyl (Duragesic Patch) 100 mcg Q72H TD 06/14/17 22:00 06/28/17 21:59 06/17/17 21:45 100 MCG Miscellaneous (Fentanyl Patch Remove & Waste) 1 ea Q3D N/A 06/17/17 22:00 07/17/17 21:59 06/17/17 21:51 1 EA Miscellaneous Information (Check Fentanyl Patch Placement) 1 ea QS N/A 06/15/17 00:00 07/15/17 00:00 06/17/17 15:17 1 EA Albuterol (Ventolin Hfa Inhaler) 2 puffs QID PRN INH 06/14/17 21:15 07/14/17 21:14 Budesonide/ Formoterol Fumarate (Symbicort 160/ 4.5 Inh) 2 puffs BID INH 06/15/17 09:00 07/15/17 08:59 06/17/17 19:59 2 PUFFS Enoxaparin Sodium (Lovenox Inj) 40 mg DAILY SQ 06/15/17 09:00 07/15/17 08:59 06/17/17 09:26 40 MG Finasteride (Proscar Tab) 5 mg QAM PO 06/15/17 09:00 07/15/17 08:59 06/17/17 09:24 5 MG Folic Acid (Folvite Tab) 1 mg QAM PO 06/15/17 09:00 07/15/17 08:59 06/17/17 09:24 1 MG Guaifenesin (Mucinex Contr Rel Tab) 1,200 mg Q12 PO 06/15/17 09:00 07/15/17 08:59 06/17/17 20:00 1,200 MG Albuterol/ Ipratropium (Combivent Respimat Inh) 1 puffs TID PRN INH 06/14/17 21:15 07/14/17 21:14 Albuterol/ Ipratropium (Duoneb) 3 ml QIDR INH 06/15/17 08:00 07/15/17 07:59 06/17/17 19:13 3 ML Tamsulosin HCl (Flomax Cap) 0.4 mg HS PO 06/14/17 21:55 07/14/17 21:54 06/17/17 19:59 0.4 MG Acetylcysteine (Mucomyst 20% Inh Soln) 3 ml BIDR INH 06/15/17 08:00 07/15/17 07:59 06/17/17 19:13 3 ML Heparin Sodium (Porcine) (Heparin 100 Unit/ml 5ml Flush) 5 ml PRN PRN IV 06/14/17 23:45 07/14/17 23:44 06/17/17 13:20 5 ML Miscellaneous (Iv Fluids Completed) 1 ea PRN PRN N/A 06/14/17 23:45 06/14/18 23:44 Lidocaine (Lidoderm Patch 5%) 1 patch DAILY TD 06/17/17 08:00 07/17/17 07:59 06/17/17 09:25 1 PATCH Miscellaneous (Remove Lidoderm Patch) 1 ea DAILY@21 N/A 06/16/17 21:00 07/16/17 20:59 06/17/17 20:03 1 EA Prednisone (PredniSONE TAB) 40 mg QAM PO 06/17/17 08:00 07/17/17 07:59 06/17/17 09:23 40 MG Hydromorphone HCl (Dilaudid Commissioning Manager) *This must be entered using ... PRN PRN IV 06/17/17 15:30 07/01/17 15:29 06/17/17 16:47 25 MG Naloxone HCl (Narcan Inj) 0.1 mg Q5M PRN IV 06/17/17 16:00 07/01/17 15:59 Sodium Chloride 1,000 ml @ 15 mls/hr Q24H IV 06/17/17 16:00 07/17/17 15:59 06/17/17 16:39 30 MLS/HR Objective Vital Signs Date Time Temp Pulse Resp B/P (MAP) Pulse Ox O2 Delivery O2 Flow Rate FiO2 06/17/17 19:16 37.4 68 16 100/51 (67) 98 Nasal Cannula 4.0 06/17/17 19:14 69 16 98 Nasal Cannula 4.0 06/17/17 16:20 36.7 75 18 118/56 (76) 93 Nasal Cannula 4.0 06/17/17 15:19 63 16 94 Nasal Cannula 4.0 06/17/17 15:14 Nasal Cannula 4.0 Humidified Oxygen 06/17/17 11:41 66 16 100 Nasal Cannula 5.0 06/17/17 09:30 Nasal Cannula 4.0 Humidified Oxygen 06/17/17 07:20 36.5 58 20 103/46 (65) 98 Nasal Cannula 4.0 06/17/17 07:18 75 16 99 Nasal Cannula 4.0 06/17/17 04:00 36.6 71 20 138/67 (90) 96 4.0 06/17/17 01:25 Nasal Cannula 4.0 06/17/17 01:24 36.5 65 20 125/66 (85) 94 4.0 Physical Exam General Appearance: WD/WN, no apparent distress Eyes: normal inspection, sclerae normal Respiratory/Chest: chest non-tender, no respiratory distress, + decreased breath sounds, + plerual rub Cardiovascular: regular rate, rhythm, no edema, no gallop Abdomen: normal bowel sounds, non tender, soft 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: alert, normal mood/affect, oriented x 3 Laboratory Results Results Past 24 Hours Test 06/17/17 05:37 Range/Units White Blood Count 8.35 4.8-10.8 K/uL Red Blood Count 2.77 4.7-6.1 M/uL Hemoglobin 9.3 14.0-18.0 g/dL Hematocrit 28.2 42-52 % Mean Corpuscular Volume 101.8 80-100 fL Mean Corpuscular Hemoglobin 33.6 25-34 pg Mean Corpuscular Hemoglobin Concent 33.0 32-36 g/dl RDW Standard Deviation 56.7 36.4-46.3 fL RDW Coefficient of Variation 15.2 11.5-14.5 % Platelet Count 98 130-400 K/uL Mean Platelet Volume 8.7 7.4-10.4 fL Sodium Level 136 136-145 mmol/L Potassium Level 4.4 3.5-5.1 mmol/L Chloride Level 96 98-107 mmol/L Carbon Dioxide Level 39 21-32 mmol/L Anion Gap 1.0 3-11 mmol/L Blood Urea Nitrogen 17 7-18 mg/dl Creatinine 0.40 0.60-1.40 mg/dl Est Creatinine Clear Calc Drug Dose 167.6 ml/min Estimated GFR () 142.5 Estimated GFR (Non- 122.9 BUN/Creatinine Ratio 42.9 10-20 Random Glucose 128 70-99 mg/dl Calcium Level 8.9 8.5-10.1 mg/dl Assessment and Plan 67 yo male with acute on chronic respiratory failure secondary COPD exacerbation and possible worsening lung cancer. 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 Terrazas to target mets to the shoulder - Patient recently started on Optiva --> Chemotherapy medication Chronic pancytopenia likely secondary to metastatic lung cancer - Continue folic acid 1mg daily - Hgb stable --> Daily CBC Hx of DVT and PE - Lovenox 40mg Daily Paroxysmal Atrial Fibrillation - No anticoagulation secondary to comorbidities - Currently NSR BPH - Finasteride 5 mg - Tamsulosin 0.4 mg PT/OT - Order Placed Code Status - Do Not Resuscitate Resident Tracking Resident Involvement: Resident Care Provided Care Provided: Adult Hospital Medicine
[2017-06-18] VITALS (11 sets, daily range): BP systolic 104–120; BP diastolic 55–64; PULSE 63–101; TEMP 36.6–37.1; O2SAT 91–98
[2017-06-18 06:57] LABS: CALCIUM 9.1 mg/dl (8.5-10.1); CREATININE 0.55 mg/dl (0.60-1.40); POTASSIUM 3.7 mmol/L (3.5-5.1)
[2017-06-18] MEDS: ALBUT/IPRATROP 3MG/0.5MG NEB 3 ML VIAL INH SCH ×4 (07:17→19:05)
[2017-06-18] MEDS: ACETYLCYSTEINE 20% INHAL SOLN ***DISPENSED BY RESP. INH SCH ×2 (07:17→19:05)
[2017-06-18] MEDS: GUAIFENESIN 600 MG TABCR PO SCH ×2 (08:09→21:48)
[2017-06-18] MEDS: FINASTERIDE 5 MG TAB PO SCH (08:10)
[2017-06-18] MEDS: BUDESONIDE/FORMOTEROL FUMARATE 160/4.5 60 PUFFS/INHALER INH SCH ×2 (08:10→21:46)
[2017-06-18] MEDS: ENOXAPARIN 40 MG/0.4 ML SYR SQ SCH (08:10)
[2017-06-18] MEDS: LIDODERM (LIDOCAINE) PATCH 5% TD SCH (08:11)
[2017-06-18] MEDS: CHECK FENTANYL PATCH PLACEMENT SCH ×2 (08:11→15:49)
--- NOTE | 2017-06-18 13:28 | Palliative Care Progress Note ---
Palliative Care Progress Note Date of Service Jun 18, 2017. Subjective Pt evaluation today including: conversation w/ patient, physical exam, chart review, conversation w/ web development consultant (Dr. Colindres), review of inpatient medication list Pain: 3/10 at rest, 10/10 with movement PO Intake: tolerating diet Patient was resting when I entered room. He still has pain but it is not worse. Remains 3/10 at rest but states "it's not bad." Is going for radiation today at 1330. Review of Systems Constitutional: No weakness ENT: No trouble swallowing Respiratory: + dyspnea on exertion, No shortness of breath Cardiac: No chest pain, No edema Abdomen: No pain, No nausea, No vomiting Male : No problem reported Psychiatric: No depression symptoms, No anxiety Objective Vital Signs Date Time Temp Pulse Resp B/P (MAP) Pulse Ox O2 Delivery O2 Flow Rate FiO2 06/18/17 11:48 37.1 63 16 105/55 (72) 91 Nasal Cannula 4.0 06/18/17 11:21 68 16 96 Nasal Cannula 4.0 06/18/17 09:18 36.9 90 20 104/61 (75) 91 Nasal Cannula 4.0 06/18/17 09:15 Nasal Cannula 4.0 Humidified Oxygen 06/18/17 07:19 74 16 98 Nasal Cannula 4.0 06/18/17 03:54 36.9 89 20 119/64 (82) 97 4.0 06/18/17 00:32 37.0 95 20 112/62 (79) 96 4.0 06/18/17 00:00 Nasal Cannula 4.0 06/17/17 20:00 Nasal Cannula 4.0 06/17/17 19:16 37.4 68 16 100/51 (67) 98 Nasal Cannula 4.0 06/17/17 19:14 69 16 98 Nasal Cannula 4.0 06/17/17 16:20 36.7 75 18 118/56 (76) 93 Nasal Cannula 4.0 06/17/17 15:19 63 16 94 Nasal Cannula 4.0 06/17/17 15:14 Nasal Cannula 4.0 Humidified Oxygen Physical Exam General Appearance: no apparent distress ENT: hearing grossly normal Neck: supple, no JVD Respiratory/Chest: no respiratory distress, no accessory muscle use, + decreased breath sounds Cardiovascular: regular rate, rhythm, no edema Abdomen: normal bowel sounds, non tender, soft 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: alert, normal mood/affect, oriented x 3 Skin: normal color Laboratory Results Last 24 Hours Test 06/18/17 05:59 Sodium Level 137 mmol/L Potassium Level 3.7 mmol/L Chloride Level 95 mmol/L Carbon Dioxide Level 36 mmol/L Anion Gap 6.0 mmol/L Blood Urea Nitrogen 17 mg/dl Creatinine 0.55 mg/dl Est Creatinine Clear Calc Drug Dose 133.2 ml/min Estimated GFR () 125.0 Estimated GFR (Non- 107.8 BUN/Creatinine Ratio 31.6 Random Glucose 134 mg/dl Calcium Level 9.1 mg/dl Assessment and Plan Problem list: Severe pain of right shoulder 2/2 mets SOB/TSE COPD exacerbation/acute on chronic hypercapnic respiratory failure Metastatic lung cancer Right shoulder metastatic lesion Chronic pancytopenia Palliative care recs: -Continue Dilaudid ACCOUNTS RECEIVABLE SUPERVISOR pump. If patient does c/o increased pain at rest, would increase basal rate to 0.4mg/hr. Remains with 0.2mg Q30 min ACCOUNTS RECEIVABLE SUPERVISOR dose. Patient has not been using frequently. -Continuing to receive radiation therapy to right shoulder. Going today at 1330. Hoping to see benefit/pain relief after a few treatments. Will continue to follow. Total time spent 25 minutes with >50% of time spent with patient counseling and going over plan of care. Palliative Performance Scale: 70 % Continued [facility] stay due to: multiple IV medications needed Discharge planning: uncertain
[2017-06-18] MEDS: SODIUM CHLORIDE 0.9% 1000ML 1,000 ML IV SCH (15:49)
--- NOTE | 2017-06-18 20:30 | Family Medicine Progress Note ---
Progress Note Date of Service Jun 18, 2017. Subjective Pt evaluation today including: conversation w/ patient, physical exam, chart review, lab review, review of studies Pain: 7/10 pain in right shoulder Voiding: no voiding problems, no incontinence Patient is resting in bed this morning in no acute distress. The patient states he has been using the PLANE TENDER Dilaudid pump but when he wakes up from pain he is in pain. He states he continues to have severe pain that has not improved with any pain medications. He denies any shortness of breath, nausea, vomiting, or abdominal pain. Constitutional: No fever, No chills, No sweats, No fatigue Respiratory: No cough, No wheezing, No shortness of breath Cardiovascular: No chest pain, No palpitations Abdomen: No pain, No nausea, No vomiting Musculoskeletal: + joint pain (Significant right shoulder pain) Neurologic: No weakness, No numbness/tingling Medications Current Inpatient Medications Medications (Trade) Dose Ordered Sig/Abbi Route Start Time Stop Time Status Last Admin Dose Admin Acetaminophen (Tylenol Tab) 650 mg Q4H PRN PO 06/14/17 21:00 07/14/17 20:59 Al Hydrox/Mg Hydrox/Simethicone (Maalox Max Susp) 15 ml Q4H PRN PO 06/14/17 21:00 07/14/17 20:59 Magnesium Hydroxide (Milk Of Magnesia Susp) 30 ml Q12H PRN PO 06/14/17 21:00 07/14/17 20:59 Ondansetron HCl (Zofran Inj) 4 mg Q6H PRN IV 06/14/17 21:00 07/14/17 20:59 Polyethylene (Miralax Powder Packet) 17 gm DAILY PRN PO 06/14/17 21:00 07/14/17 20:59 Fentanyl (Duragesic Patch) 100 mcg Q72H TD 06/14/17 22:00 06/28/17 21:59 06/17/17 21:45 100 MCG Miscellaneous (Fentanyl Patch Remove & Waste) 1 ea Q3D N/A 06/17/17 22:00 07/17/17 21:59 06/17/17 21:51 1 EA Miscellaneous Information (Check Fentanyl Patch Placement) 1 ea QS N/A 06/15/17 00:00 07/15/17 00:00 06/18/17 15:49 1 EA Albuterol (Ventolin Hfa Inhaler) 2 puffs QID PRN INH 06/14/17 21:15 07/14/17 21:14 Budesonide/ Formoterol Fumarate (Symbicort 160/ 4.5 Inh) 2 puffs BID INH 06/15/17 09:00 07/15/17 08:59 06/18/17 08:10 2 PUFFS Enoxaparin Sodium (Lovenox Inj) 40 mg DAILY SQ 06/15/17 09:00 07/15/17 08:59 06/18/17 08:10 40 MG Finasteride (Proscar Tab) 5 mg QAM PO 06/15/17 09:00 07/15/17 08:59 06/18/17 08:10 5 MG Folic Acid (Folvite Tab) 1 mg QAM PO 06/15/17 09:00 07/15/17 08:59 06/18/17 08:09 1 MG Guaifenesin (Mucinex Contr Rel Tab) 1,200 mg Q12 PO 06/15/17 09:00 07/15/17 08:59 06/18/17 08:09 1,200 MG Albuterol/ Ipratropium (Combivent Respimat Inh) 1 puffs TID PRN INH 06/14/17 21:15 07/14/17 21:14 Albuterol/ Ipratropium (Duoneb) 3 ml QIDR INH 06/15/17 08:00 07/15/17 07:59 06/18/17 19:05 3 ML Tamsulosin HCl (Flomax Cap) 0.4 mg HS PO 06/14/17 21:55 07/14/17 21:54 06/17/17 19:59 0.4 MG Acetylcysteine (Mucomyst 20% Inh Soln) 3 ml BIDR INH 06/15/17 08:00 07/15/17 07:59 06/18/17 19:05 3 ML Heparin Sodium (Porcine) (Heparin 100 Unit/ml 5ml Flush) 5 ml PRN PRN IV 06/14/17 23:45 07/14/17 23:44 06/17/17 13:20 5 ML Miscellaneous (Iv Fluids Completed) 1 ea PRN PRN N/A 06/14/17 23:45 06/14/18 23:44 Lidocaine (Lidoderm Patch 5%) 1 patch DAILY TD 06/17/17 08:00 07/17/17 07:59 06/18/17 08:11 1 PATCH Miscellaneous (Remove Lidoderm Patch) 1 ea DAILY@21 N/A 06/16/17 21:00 07/16/17 20:59 06/17/17 20:03 1 EA Prednisone (PredniSONE TAB) 40 mg QAM PO 06/17/17 08:00 07/17/17 07:59 06/18/17 08:09 40 MG Hydromorphone HCl (Dilaudid Roller Pneumatic) *This must be entered using ... PRN PRN IV 06/17/17 15:30 07/01/17 15:29 06/17/17 16:47 25 MG Naloxone HCl (Narcan Inj) 0.1 mg Q5M PRN IV 06/17/17 16:00 07/01/17 15:59 Sodium Chloride 1,000 ml @ 15 mls/hr Q24H IV 06/17/17 16:00 07/17/17 15:59 06/18/17 15:49 15 MLS/HR Objective Vital Signs Date Time Temp Pulse Resp B/P (MAP) Pulse Ox O2 Delivery O2 Flow Rate FiO2 06/18/17 19:34 37.0 80 18 115/57 (76) 96 Nasal Cannula 4.0 06/18/17 19:08 101 16 96 Nasal Cannula 3.0 06/18/17 17:42 36.9 75 18 120/56 (77) 93 Nasal Cannula 3.0 06/18/17 16:00 Nasal Cannula 4.0 Humidified Oxygen 06/18/17 14:33 72 16 91 Nasal Cannula 3.0 06/18/17 11:48 37.1 63 16 105/55 (72) 91 Nasal Cannula 4.0 06/18/17 11:21 68 16 96 Nasal Cannula 4.0 06/18/17 09:18 36.9 90 20 104/61 (75) 91 Nasal Cannula 4.0 06/18/17 09:15 Nasal Cannula 4.0 Humidified Oxygen 06/18/17 07:19 74 16 98 Nasal Cannula 4.0 06/18/17 03:54 36.9 89 20 119/64 (82) 97 4.0 06/18/17 00:32 37.0 95 20 112/62 (79) 96 4.0 06/18/17 00:00 Nasal Cannula 4.0 Physical Exam General Appearance: WD/WN, no apparent distress Eyes: normal inspection, sclerae normal Neck: supple, no carotid bruits Respiratory/Chest: chest non-tender, + decreased breath sounds, + wheezing Cardiovascular: regular rate, rhythm, no edema, no gallop Abdomen: normal bowel sounds, non tender, soft Extremities: + pertinent finding (Right shoulder pain with palpation. Significant discomfort with movement in any direction or with any lifting of the arm) 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: alert, normal mood/affect, oriented x 3 Laboratory Results Results Past 24 Hours Test 06/18/17 05:59 Range/Units Sodium Level 137 136-145 mmol/L Potassium Level 3.7 3.5-5.1 mmol/L Chloride Level 95 98-107 mmol/L Carbon Dioxide Level 36 21-32 mmol/L Anion Gap 6.0 3-11 mmol/L Blood Urea Nitrogen 17 7-18 mg/dl Creatinine 0.55 0.60-1.40 mg/dl Est Creatinine Clear Calc Drug Dose 133.2 ml/min Estimated GFR () 125.0 Estimated GFR (Non- 107.8 BUN/Creatinine Ratio 31.6 10-20 Random Glucose 134 70-99 mg/dl Calcium Level 9.1 8.5-10.1 mg/dl Assessment and Plan 67 yo male with acute on chronic respiratory failure secondary COPD exacerbation and possible worsening lung cancer. Was also found to have metastatic disease to the R shoulder Acute on chronic hypercapnic/ hypoxic respiratory failure secondary to COPD exacerbation in an individual with metastatic lung adenocarcinoma - Currently requiring baseline home O2 of 3L - Clinically improving --> Denies shortness of breath or wheezing - Prednisone 40mg PO Daily (2/3) --> 40mg x 3 days. 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 Terrazas to target mets to the shoulder --> Second day of radiation therapy - Patient recently started on Optiva --> Chemotherapy medication Chronic pancytopenia likely secondary to metastatic lung cancer - Continue folic acid 1mg daily - Hgb stable --> Daily CBC Hx of DVT and PE - Lovenox 40mg Daily Paroxysmal Atrial Fibrillation - No anticoagulation secondary to comorbidities - Currently NSR BPH - Finasteride 5 mg - Tamsulosin 0.4 mg PT/OT - Order Placed Code Status - Do Not Resuscitate Resident Tracking Resident Involvement: Resident Care Provided Care Provided: Adult Hospital Medicine
[2017-06-18] MEDS: TAMSULOSIN HCL 0.4 MG CAP PO SCH (21:47)
[2017-06-19] VITALS (9 sets, daily range): BP systolic 100–122; BP diastolic 46–81; PULSE 60–76; TEMP 36.6–37.3; O2SAT 91–98
[2017-06-19] MEDS: CHECK FENTANYL PATCH PLACEMENT SCH ×3 (00:08→16:14)
[2017-06-19] MEDS: ACETYLCYSTEINE 20% INHAL SOLN ***DISPENSED BY RESP. INH SCH (07:15)
[2017-06-19] MEDS: ALBUT/IPRATROP 3MG/0.5MG NEB 3 ML VIAL INH SCH ×4 (07:15→19:08)
[2017-06-19] MEDS: FINASTERIDE 5 MG TAB PO SCH (08:15)
[2017-06-19] MEDS: BUDESONIDE/FORMOTEROL FUMARATE 160/4.5 60 PUFFS/INHALER INH SCH ×2 (08:15→20:20)
[2017-06-19] MEDS: LIDODERM (LIDOCAINE) PATCH 5% TD SCH (08:16)
[2017-06-19] MEDS: GUAIFENESIN 600 MG TABCR PO SCH ×2 (08:16→20:20)
[2017-06-19] MEDS: ENOXAPARIN 40 MG/0.4 ML SYR SQ SCH (08:16)
[2017-06-19] MEDS ORDERED: NURSING VERBAL MED ORDER ONE (09:15)
[2017-06-19] MEDS: SODIUM CHLORIDE 0.9% 1000ML 1,000 ML IV SCH (09:19)
--- NOTE | 2017-06-19 18:41 | Family Medicine Progress Note ---
Progress Note Date of Service Jun 19, 2017. Subjective Pt evaluation today including: conversation w/ patient, physical exam, chart review, lab review, review of studies Pain: No pain at rest, 10/10 pain with right arm movement Voiding: no voiding problems, no incontinence Patient is resting comfortably in bed this morning. He states that his pain appeared to be improving yesterday evening, but this morning was back to being severe pain. He has no pain at rest but severe pain with any arm movements. Constitutional: No fever, No chills, No fatigue Respiratory: + wheezing, No cough, No shortness of breath Cardiovascular: No chest pain, No palpitations Abdomen: No pain, No nausea, No vomiting, No diarrhea, No constipation Medications Current Inpatient Medications Medications (Trade) Dose Ordered Sig/Abbi Route Start Time Stop Time Status Last Admin Dose Admin Acetaminophen (Tylenol Tab) 650 mg Q4H PRN PO 06/14/17 21:00 07/14/17 20:59 Al Hydrox/Mg Hydrox/Simethicone (Maalox Max Susp) 15 ml Q4H PRN PO 06/14/17 21:00 07/14/17 20:59 Magnesium Hydroxide (Milk Of Magnesia Susp) 30 ml Q12H PRN PO 06/14/17 21:00 07/14/17 20:59 Ondansetron HCl (Zofran Inj) 4 mg Q6H PRN IV 06/14/17 21:00 07/14/17 20:59 Polyethylene (Miralax Powder Packet) 17 gm DAILY PRN PO 06/14/17 21:00 07/14/17 20:59 Fentanyl (Duragesic Patch) 100 mcg Q72H TD 06/14/17 22:00 06/28/17 21:59 06/17/17 21:45 100 MCG Miscellaneous (Fentanyl Patch Remove & Waste) 1 ea Q3D N/A 06/17/17 22:00 07/17/17 21:59 06/17/17 21:51 1 EA Miscellaneous Information (Check Fentanyl Patch Placement) 1 ea QS N/A 06/15/17 00:00 07/15/17 00:00 06/19/17 16:14 1 EA Albuterol (Ventolin Hfa Inhaler) 2 puffs QID PRN INH 06/14/17 21:15 07/14/17 21:14 Budesonide/ Formoterol Fumarate (Symbicort 160/ 4.5 Inh) 2 puffs BID INH 06/15/17 09:00 07/15/17 08:59 06/19/17 08:15 2 PUFFS Enoxaparin Sodium (Lovenox Inj) 40 mg DAILY SQ 06/15/17 09:00 07/15/17 08:59 06/19/17 08:16 40 MG Finasteride (Proscar Tab) 5 mg QAM PO 06/15/17 09:00 07/15/17 08:59 06/19/17 08:15 5 MG Folic Acid (Folvite Tab) 1 mg QAM PO 06/15/17 09:00 07/15/17 08:59 06/19/17 08:15 1 MG Guaifenesin (Mucinex Contr Rel Tab) 1,200 mg Q12 PO 06/15/17 09:00 07/15/17 08:59 06/19/17 08:16 1,200 MG Albuterol/ Ipratropium (Combivent Respimat Inh) 1 puffs TID PRN INH 06/14/17 21:15 07/14/17 21:14 Albuterol/ Ipratropium (Duoneb) 3 ml QIDR INH 06/15/17 08:00 07/15/17 07:59 06/19/17 11:47 3 ML Tamsulosin HCl (Flomax Cap) 0.4 mg HS PO 06/14/17 21:55 07/14/17 21:54 06/18/17 21:47 0.4 MG Heparin Sodium (Porcine) (Heparin 100 Unit/ml 5ml Flush) 5 ml PRN PRN IV 06/14/17 23:45 07/14/17 23:44 06/17/17 13:20 5 ML Miscellaneous (Iv Fluids Completed) 1 ea PRN PRN N/A 06/14/17 23:45 06/14/18 23:44 Lidocaine (Lidoderm Patch 5%) 1 patch DAILY TD 06/17/17 08:00 07/17/17 07:59 06/19/17 08:16 1 PATCH Miscellaneous (Remove Lidoderm Patch) 1 ea DAILY@21 N/A 06/16/17 21:00 3/14/18 20:59 06/18/17 21:00 1 EA Prednisone (PredniSONE TAB) 40 mg QAM PO 06/17/17 08:00 07/17/17 07:59 06/19/17 08:15 40 MG Hydromorphone HCl (Dilaudid Network Operations Center Engineer) *This must be entered using ... PRN PRN IV 06/17/17 15:30 07/01/17 15:29 06/17/17 16:47 25 MG Naloxone HCl (Narcan Inj) 0.1 mg Q5M PRN IV 06/17/17 16:00 07/01/17 15:59 Sodium Chloride 1,000 ml @ 15 mls/hr Q24H IV 06/17/17 16:00 07/17/17 15:59 06/19/17 09:19 15 MLS/HR Objective Vital Signs Date Time Temp Pulse Resp B/P (MAP) Pulse Ox O2 Delivery O2 Flow Rate FiO2 06/19/17 16:05 Nasal Cannula 3.0 Humidified Oxygen 06/19/17 11:48 72 15 91 Nasal Cannula 3.0 06/19/17 11:47 37.3 76 16 100/51 (67) 96 Nasal Cannula 4.0 06/19/17 10:25 Nasal Cannula 3.5 06/19/17 07:22 36.9 60 16 105/54 (71) 97 Nasal Cannula 3.5 06/19/17 07:20 71 16 96 Nasal Cannula 3.0 06/19/17 05:01 36.7 62 20 122/81 (95) 98 Room Air 06/19/17 00:00 Nasal Cannula 4.0 06/18/17 23:34 36.6 68 18 117/58 (77) 94 Nasal Cannula 4.0 06/18/17 20:05 Nasal Cannula 4.0 Humidified Oxygen 06/18/17 19:34 37.0 80 18 115/57 (76) 96 Nasal Cannula 4.0 06/18/17 19:08 101 16 96 Nasal Cannula 3.0 Physical Exam General Appearance: WD/WN, no apparent distress Eyes: normal inspection, sclerae normal Neck: supple, no carotid bruits Respiratory/Chest: chest non-tender, + decreased breath sounds, + wheezing Cardiovascular: regular rate, rhythm, no edema, no gallop Abdomen: normal bowel sounds, non tender, soft Extremities: no pedal edema, no calf tenderness, + pertinent finding (Severe right shoulder pain with any movements, direct pain to palpation over the distal right clavicle) 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: alert, normal mood/affect, oriented x 3 Assessment and Plan 67 yo male with acute on chronic respiratory failure secondary COPD exacerbation and possible worsening lung cancer. 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 Terrazas to target mets to the shoulder --> Third day of radiation therapy - Patient recently started on Optiva --> Chemotherapy medication Chronic pancytopenia likely secondary to metastatic lung cancer - Continue folic acid 1mg daily - Hgb stable --> Daily CBC Hx of DVT and PE - Lovenox 40mg Daily Paroxysmal Atrial Fibrillation - No anticoagulation secondary to comorbidities - Currently NSR BPH - Finasteride 5 mg - Tamsulosin 0.4 mg PT/OT - Patient refusing at this time due to severe pain Code Status - Do Not Resuscitate Resident Tracking Resident Involvement: Resident Care Provided Care Provided: Adult Hospital Medicine
[2017-06-19] MEDS: TAMSULOSIN HCL 0.4 MG CAP PO SCH (20:20)
[2017-06-20] VITALS (12 sets, daily range): BP systolic 102–121; BP diastolic 56–71; PULSE 56–105; TEMP 36.7–36.9; O2SAT 92–96
[2017-06-20] MEDS: CHECK FENTANYL PATCH PLACEMENT SCH ×3 (01:00→16:00)
[2017-06-20] MEDS: HYDROmorphone HCL 0.5MG/ML 50 ML CASSETTE IV PRN (01:40)
[2017-06-20 06:12] LABS: HEMATOCRIT 29.3 % (42-52); HEMOGLOBIN 9.6 g/dL (14.0-18.0); MEAN CELL VOLUME 102.4 fL (80-100); MEAN CORPUSCULAR HEMOGLOBIN 33.6 pg (25-34); MEAN CORPUSCULAR HGB CONC 32.8 g/dl (32-36); MEAN PLATELET VOLUME 8.6 fL (7.4-10.4); PLATELET COUNT 100 K/uL (130-400); RED CELL DISTRIBUTION WIDTH CV 15.3 % (11.5-14.5); RED CELL DISTRIBUTION WIDTH SD 56.8 fL (36.4-46.3); WHITE BLOOD COUNT 9.14 K/uL (4.8-10.8)
[2017-06-20 06:45] LABS: CREATININE 0.41 mg/dl (0.60-1.40)
[2017-06-20] MEDS: ALBUT/IPRATROP 3MG/0.5MG NEB 3 ML VIAL INH SCH ×4 (07:20→19:39)
[2017-06-20] MEDS: BUDESONIDE/FORMOTEROL FUMARATE 160/4.5 60 PUFFS/INHALER INH SCH ×2 (08:03→21:11)
[2017-06-20] MEDS: GUAIFENESIN 600 MG TABCR PO SCH ×2 (08:04→21:13)
[2017-06-20] MEDS: FINASTERIDE 5 MG TAB PO SCH (08:05)
[2017-06-20] MEDS: ENOXAPARIN 40 MG/0.4 ML SYR SQ SCH (08:06)
[2017-06-20] MEDS: LIDODERM (LIDOCAINE) PATCH 5% TD SCH (08:07)
--- NOTE | 2017-06-20 14:10 | Palliative Care Progress Note ---
Palliative Care Progress Note Date of Service Jun 20, 2017. Subjective Pt evaluation today including: conversation w/ patient, physical exam, chart review, conversation w/ internet sales consultant (Dr. Colindres), review of inpatient medication list Pain: none at this time while not moving arm PO Intake: tolerating diet Voiding: no voiding problems -Patient is awake, alert and oriented x4. Looks more comfortable. -Has more mobility of his right arm without so much pain. -Used 7.65mg IV Dilaudid in last 24 hours. Basal rate of SANDBLASTER GLASS is now at 0.4mg/hr. -Patient going for 4th radiation treatment now. Review of Systems Constitutional: No weakness ENT: No trouble swallowing Respiratory: No cough, No shortness of breath Cardiac: No chest pain, No edema Abdomen: No pain, No nausea, No vomiting Male : No problem reported Psychiatric: No depression symptoms, No anxiety Objective Vital Signs Date Time Temp Pulse Resp B/P (MAP) Pulse Ox O2 Delivery O2 Flow Rate FiO2 06/20/17 11:26 105 16 93 Nasal Cannula 3.0 06/20/17 11:10 36.8 56 20 113/62 (79) 95 06/20/17 08:00 95 Nasal Cannula 3.0 06/20/17 07:43 36.8 74 20 120/71 (87) 93 06/20/17 07:22 76 16 95 Nasal Cannula 3.0 06/20/17 03:54 36.7 78 16 121/56 (77) 94 Nasal Cannula 3.0 06/20/17 00:30 92 Nasal Cannula 3.0 06/19/17 23:46 36.7 69 16 121/46 (71) 95 Nasal Cannula 3.0 06/19/17 23:12 36.7 71 18 102/62 (75) 98 Nasal Cannula 3.0 Humidified Oxygen 06/19/17 19:29 36.6 68 19 121/64 (83) 96 Nasal Cannula 3.0 Humidified Oxygen 06/19/17 19:09 76 16 92 Nasal Cannula 3.0 06/19/17 16:05 Nasal Cannula 3.0 Humidified Oxygen Physical Exam General Appearance: no apparent distress ENT: hearing grossly normal Neck: supple, no JVD Respiratory/Chest: no respiratory distress, no accessory muscle use Cardiovascular: regular rate, rhythm, no edema Abdomen: normal bowel sounds, non tender, soft 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: alert, normal mood/affect, oriented x 3 Skin: normal color Laboratory Results Last 24 Hours Test 06/20/17 05:58 White Blood Count 9.14 K/uL Red Blood Count 2.86 M/uL Hemoglobin 9.6 g/dL Hematocrit 29.3 % Mean Corpuscular Volume 102.4 fL Mean Corpuscular Hemoglobin 33.6 pg Mean Corpuscular Hemoglobin Concent 32.8 g/dl RDW Standard Deviation 56.8 fL RDW Coefficient of Variation 15.3 % Platelet Count 100 K/uL Mean Platelet Volume 8.6 fL Creatinine 0.41 mg/dl Est Creatinine Clear Calc Drug Dose 180.2 ml/min Estimated GFR () 141.0 Estimated GFR (Non- 121.7 Assessment and Plan Problem list: Severe pain of right shoulder 2/2 mets SOB/TSE COPD exacerbation/acute on chronic hypercapnic respiratory failure Metastatic lung cancer Right shoulder metastatic lesion Chronic pancytopenia Palliative care recs: -Continue Dilaudid SANDBLASTER GLASS pump. Basal rate at 0.4mg/hr. Remains with 0.2mg Q30 min SANDBLASTER GLASS dose. Patient has not been using frequently. Used 7.65mg in last 24 hours. -Fentanyl patch at 100mcg/hr. -Continuing to receive radiation therapy to right shoulder. Fourth treatment today. -Can transition to PO Dilaudid, but would like to see if radiation is going to help with pain so we know what patient's needs will be. With current use, could do Dilaudid 4mg PO Q4h PRN pain. Will continue to follow. Total time spent 25 minutes with >50% of time spent with patient counseling and going over plan of care. Palliative Performance Scale: 70 % Continued [facility] stay due to: multiple IV medications needed Discharge planning: uncertain
--- NOTE | 2017-06-20 14:28 | Family Medicine Progress Note ---
Progress Note Date of Service Jun 20, 2017. Subjective Pt evaluation today including: chart review, lab review, review of studies Pain: 7/10 pain reported Voiding: no voiding problems, no incontinence Patient refused today to have the primary team examine him due to fatigue and pain and wanted to sleep. The nurse states that the patients pain has subjectively unchanged and states that his pain remains to be a 7 out of 10. The patient was seen by palliative care today, and despite stating that his pain remains constant, he does appear to have improved range of motion of the right shoulder and has also been shrugging his shoulders without any strain. The patient has been receiving radiation treatment, with his treatment this afternoon being his fourth treatment. Additional Comments: Unable to obtain review of systems Medications Current Inpatient Medications Medications (Trade) Dose Ordered Sig/Abbi Route Start Time Stop Time Status Last Admin Dose Admin Acetaminophen (Tylenol Tab) 650 mg Q4H PRN PO 06/14/17 21:00 07/14/17 20:59 Al Hydrox/Mg Hydrox/Simethicone (Maalox Max Susp) 15 ml Q4H PRN PO 06/14/17 21:00 07/14/17 20:59 Magnesium Hydroxide (Milk Of Magnesia Susp) 30 ml Q12H PRN PO 06/14/17 21:00 07/14/17 20:59 Ondansetron HCl (Zofran Inj) 4 mg Q6H PRN IV 06/14/17 21:00 07/14/17 20:59 Polyethylene (Miralax Powder Packet) 17 gm DAILY PRN PO 06/14/17 21:00 07/14/17 20:59 Fentanyl (Duragesic Patch) 100 mcg Q72H TD 06/14/17 22:00 06/28/17 21:59 06/17/17 21:45 100 MCG Miscellaneous (Fentanyl Patch Remove & Waste) 1 ea Q3D N/A 06/17/17 22:00 07/17/17 21:59 06/17/17 21:51 1 EA Miscellaneous Information (Check Fentanyl Patch Placement) 1 ea QS N/A 06/15/17 00:00 07/15/17 00:00 06/20/17 07:59 1 EA Albuterol (Ventolin Hfa Inhaler) 2 puffs QID PRN INH 06/14/17 21:15 07/14/17 21:14 Budesonide/ Formoterol Fumarate (Symbicort 160/ 4.5 Inh) 2 puffs BID INH 06/15/17 09:00 07/15/17 08:59 06/20/17 08:03 2 PUFFS Enoxaparin Sodium (Lovenox Inj) 40 mg DAILY SQ 06/15/17 09:00 07/15/17 08:59 06/20/17 08:06 40 MG Finasteride (Proscar Tab) 5 mg QAM PO 06/15/17 09:00 07/15/17 08:59 06/20/17 08:05 5 MG Folic Acid (Folvite Tab) 1 mg QAM PO 06/15/17 09:00 07/15/17 08:59 06/20/17 08:06 1 MG Guaifenesin (Mucinex Contr Rel Tab) 1,200 mg Q12 PO 06/15/17 09:00 07/15/17 08:59 06/20/17 08:04 1,200 MG Albuterol/ Ipratropium (Combivent Respimat Inh) 1 puffs TID PRN INH 06/14/17 21:15 07/14/17 21:14 Albuterol/ Ipratropium (Duoneb) 3 ml QIDR INH 06/15/17 08:00 07/15/17 07:59 06/20/17 11:25 3 ML Tamsulosin HCl (Flomax Cap) 0.4 mg HS PO 06/14/17 21:55 07/14/17 21:54 06/19/17 20:20 0.4 MG Heparin Sodium (Porcine) (Heparin 100 Unit/ml 5ml Flush) 5 ml PRN PRN IV 06/14/17 23:45 07/14/17 23:44 06/17/17 13:20 5 ML Miscellaneous (Iv Fluids Completed) 1 ea PRN PRN N/A 06/14/17 23:45 06/14/18 23:44 Lidocaine (Lidoderm Patch 5%) 1 patch DAILY TD 06/17/17 08:00 07/17/17 07:59 06/20/17 08:07 1 PATCH Miscellaneous (Remove Lidoderm Patch) 1 ea DAILY@21 N/A 06/16/17 21:00 07/16/17 20:59 06/19/17 20:20 1 EA Hydromorphone HCl (Dilaudid Adult Secondary Education Instructor) *This must be entered using ... PRN PRN IV 06/17/17 15:30 07/01/17 15:29 06/20/17 01:40 25 MG Naloxone HCl (Narcan Inj) 0.1 mg Q5M PRN IV 06/17/17 16:00 07/01/17 15:59 Sodium Chloride 1,000 ml @ 15 mls/hr Q24H IV 06/17/17 16:00 07/17/17 15:59 06/19/17 09:19 15 MLS/HR Prednisone (PredniSONE TAB) 30 mg QAM PO 06/20/17 08:00 07/20/17 07:59 06/20/17 08:05 30 MG Objective Vital Signs Date Time Temp Pulse Resp B/P (MAP) Pulse Ox O2 Delivery O2 Flow Rate FiO2 06/20/17 11:26 105 16 93 Nasal Cannula 3.0 06/20/17 11:10 36.8 56 20 113/62 (79) 95 06/20/17 08:00 95 Nasal Cannula 3.0 06/20/17 07:43 36.8 74 20 120/71 (87) 93 06/20/17 07:22 76 16 95 Nasal Cannula 3.0 06/20/17 03:54 36.7 78 16 121/56 (77) 94 Nasal Cannula 3.0 06/20/17 00:30 92 Nasal Cannula 3.0 06/19/17 23:46 36.7 69 16 121/46 (71) 95 Nasal Cannula 3.0 06/19/17 23:12 36.7 71 18 102/62 (75) 98 Nasal Cannula 3.0 Humidified Oxygen 06/19/17 19:29 36.6 68 19 121/64 (83) 96 Nasal Cannula 3.0 Humidified Oxygen 06/19/17 19:09 76 16 92 Nasal Cannula 3.0 06/19/17 16:05 Nasal Cannula 3.0 Humidified Oxygen Physical Exam Notes: No exam performed today on patient due to patient refusal to see primary care team Laboratory Results Results Past 24 Hours Test 06/20/17 05:58 Range/Units White Blood Count 9.14 4.8-10.8 K/uL Red Blood Count 2.86 4.7-6.1 M/uL Hemoglobin 9.6 14.0-18.0 g/dL Hematocrit 29.3 42-52 % Mean Corpuscular Volume 102.4 80-100 fL Mean Corpuscular Hemoglobin 33.6 25-34 pg Mean Corpuscular Hemoglobin Concent 32.8 32-36 g/dl RDW Standard Deviation 56.8 36.4-46.3 fL RDW Coefficient of Variation 15.3 11.5-14.5 % Platelet Count 100 130-400 K/uL Mean Platelet Volume 8.6 7.4-10.4 fL Creatinine 0.41 0.60-1.40 mg/dl Est Creatinine Clear Calc Drug Dose 180.2 ml/min Estimated GFR () 141.0 Estimated GFR (Non- 121.7 Assessment and Plan 67 yo male with acute on chronic respiratory failure secondary COPD exacerbation and possible worsening lung cancer. 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 Terrazas to target mets to the shoulder --> Day 4 of radiation - Patient recently started on Optiva --> Chemotherapy medication Chronic pancytopenia likely secondary to metastatic lung cancer - Continue folic acid 1mg daily - Hgb stable --> Daily CBC Hx of DVT and PE - Lovenox 40mg Daily Paroxysmal Atrial Fibrillation - No anticoagulation secondary to comorbidities - Currently NSR BPH - Finasteride 5 mg - Tamsulosin 0.4 mg PT/OT - Patient refusing at this time due to severe pain Code Status - Do Not Resuscitate Resident Tracking Resident Involvement: Resident Care Provided Care Provided: Adult [facility] Medicine
[2017-06-20] MEDS: SODIUM CHLORIDE 0.9% 1000ML 1,000 ML IV SCH (18:53)
[2017-06-20] MEDS: TAMSULOSIN HCL 0.4 MG CAP PO SCH (21:12)
[2017-06-20] MEDS: FENTANYL PATCH REMOVE & WASTE SCH (21:13)
[2017-06-20] MEDS: FENTANYL 100 MCG/HR TDSY TD SCH (21:21)
[2017-06-21] VITALS (12 sets, daily range): BP systolic 99–119; BP diastolic 55–64; PULSE 68–93; TEMP 36.5–37.1; O2SAT 92–98
[2017-06-21] MEDS: CHECK FENTANYL PATCH PLACEMENT SCH ×3 (00:36→16:11)
[2017-06-21] MEDS: ALBUT/IPRATROP 3MG/0.5MG NEB 3 ML VIAL INH SCH ×4 (07:00→19:37)
[2017-06-21] MEDS: ENOXAPARIN 40 MG/0.4 ML SYR SQ SCH (08:20)
[2017-06-21] MEDS: LIDODERM (LIDOCAINE) PATCH 5% TD SCH (08:21)
[2017-06-21] MEDS: GUAIFENESIN 600 MG TABCR PO SCH ×2 (08:22→20:34)
[2017-06-21] MEDS: FINASTERIDE 5 MG TAB PO SCH (08:22)
[2017-06-21] MEDS: BUDESONIDE/FORMOTEROL FUMARATE 160/4.5 60 PUFFS/INHALER INH SCH ×2 (08:23→20:34)
[2017-06-21] MEDS ORDERED: KETOROLAC TROMETHAMINE 15 MG/ML VIAL IV. STA (11:29)
[2017-06-21] MEDS ORDERED: GABAPENTIN 300 MG CAP PO ONE (11:29)
[2017-06-21] MEDS: GABAPENTIN 300 MG CAP PO SCH ×2 (13:50→20:34)
--- NOTE | 2017-06-21 15:04 | Family Medicine Progress Note ---
Progress Note Date of Service Jun 21, 2017. Subjective Pt evaluation today including: conversation w/ patient Complains of worsening right shoulder pain nothing seems to be "touching" his pain Constitutional: No fever, No chills Eyes: No worsening of vision Respiratory: + wheezing, + shortness of breath, + dyspnea on exertion, No cough, No sputum Cardiovascular: No chest pain Abdomen: No pain, No nausea Musculoskeletal: + joint pain Male : No dysuria, No urinary frequency Medications Medications Administered Medications (Trade) Dose Ordered Sig/Abbi Route Start Time Stop Time Status Last Admin Dose Admin Albuterol Sulfate (Ventolin 0.083% 2.5MG/3ML Neb) 2.5 mg NOW STAT INH 06/14/17 17:32 06/14/17 17:34 DC 06/14/17 18:03 2.5 MG Morphine Sulfate (MoRPHine SULFATE INJ) 4 mg NOW STAT IV 06/14/17 20:18 06/14/17 20:19 DC 06/14/17 20:27 4 MG Fentanyl (Duragesic Patch) 100 mcg Q72H TD 06/14/17 22:00 06/28/17 21:59 06/20/17 21:21 100 MCG Miscellaneous (Fentanyl Patch Remove & Waste) 1 ea Q3D N/A 06/17/17 22:00 07/17/17 21:59 06/20/17 21:13 1 EA Miscellaneous Information (Check Fentanyl Patch Placement) 1 ea QS N/A 06/15/17 00:00 07/15/17 00:00 06/21/17 08:23 1 EA Hydromorphone HCl (Dilaudid Inj) 0.5 mg Q2HWA PRN IV 06/14/17 21:15 06/15/17 11:32 DC 06/15/17 07:55 0.5 MG Methylprednisolone Sodium Succinate 20 mg/Syringe 0.32 ml @ 1.5 mls/min TODAY@0900 IV 06/15/17 09:00 06/15/17 10:00 DC 06/15/17 08:11 1.5 MLS/MIN Budesonide/ Formoterol Fumarate (Symbicort 160/ 4.5 Inh) 2 puffs BID INH 06/15/17 09:00 07/15/17 08:59 06/21/17 08:23 2 PUFFS Enoxaparin Sodium (Lovenox Inj) 40 mg DAILY SQ 06/15/17 09:00 07/15/17 08:59 06/21/17 08:20 40 MG Finasteride (Proscar Tab) 5 mg QAM PO 06/15/17 09:00 07/15/17 08:59 06/21/17 08:22 5 MG Folic Acid (Folvite Tab) 1 mg QAM PO 06/15/17 09:00 07/15/17 08:59 06/21/17 08:22 1 MG Guaifenesin (Mucinex Contr Rel Tab) 1,200 mg Q12 PO 06/15/17 09:00 07/15/17 08:59 06/21/17 08:22 1,200 MG Albuterol/ Ipratropium (Duoneb) 3 ml QIDR INH 06/15/17 08:00 07/15/17 07:59 06/21/17 14:47 3 ML Morphine Sulfate (MoRPHine SULFATE IR TAB) 15 mg Q12 PRN PO 06/14/17 21:15 06/17/17 15:33 DC 06/17/17 05:51 15 MG Tamsulosin HCl (Flomax Cap) 0.4 mg HS PO 06/14/17 21:55 07/14/17 21:54 06/20/17 21:12 0.4 MG Methylprednisolone Sodium Succinate (Solu-Medrol IV) 40 mg STK-MED ONCE .ROUTE 06/14/17 21:16 06/14/17 21:17 DC 06/14/17 21:19 40 MG Acetylcysteine (Mucomyst 20% Inh Soln) 3 ml BIDR INH 06/15/17 08:00 06/19/17 10:57 DC 06/19/17 07:15 3 ML Heparin Sodium (Porcine) (Heparin 100 Unit/ml 5ml Flush) 5 ml STK-MED ONCE .ROUTE 06/14/17 23:16 06/14/17 23:17 DC 06/15/17 00:09 5 ML Heparin Sodium (Porcine) (Heparin 100 Unit/ml 5ml Flush) 5 ml PRN PRN IV 06/14/17 23:45 07/14/17 23:44 06/17/17 13:20 5 ML Vancomycin HCl 2000 mg/Sodium Chloride 540 ml @ 200 mls/hr NOW STAT IV 06/15/17 07:49 06/15/17 10:30 DC 06/15/17 09:08 200 MLS/HR Piperacillin Sod/ Tazobactam Sod 4.5 gm/Dextrose 120 ml @ 200 mls/hr NOW STAT IV 06/15/17 07:52 06/15/17 08:27 DC 06/15/17 09:09 200 MLS/HR Hydromorphone HCl (Dilaudid Inj) 1 mg Q2HWA PRN IV 06/15/17 11:45 06/16/17 12:04 DC 06/16/17 07:48 1 MG Methylprednisolone Sodium Succinate 20 mg/Syringe 0.32 ml @ 1.5 mls/min TID IV 06/15/17 14:00 06/16/17 22:00 DC 06/16/17 21:59 1.5 MLS/MIN Hydromorphone HCl (Dilaudid Inj) 2 mg PRN PRN IV 06/16/17 09:45 06/16/17 09:47 DC 06/16/17 09:47 2 MG Hydromorphone HCl (Dilaudid Inj) 2 mg Q3H PRN IV 06/16/17 13:00 06/17/17 15:33 DC 06/17/17 13:20 2 MG Lidocaine (Lidoderm Patch 5%) 1 patch DAILY TD 06/17/17 08:00 07/17/17 07:59 06/21/17 08:21 1 PATCH Lidocaine (Lidoderm Patch 5%) 1 patch 1915 ONCE TD 06/16/17 19:15 06/16/17 19:28 DC 06/16/17 21:59 1 PATCH Miscellaneous (Remove Lidoderm Patch) 1 ea DAILY@21 N/A 06/16/17 21:00 07/16/17 20:59 06/20/17 21:12 1 EA Prednisone (PredniSONE TAB) 40 mg QAM PO 06/17/17 08:00 06/19/17 18:38 DC 06/19/17 08:15 40 MG Hydromorphone HCl (Dilaudid Electric Cell Tender) *This must be entered using ... PRN PRN IV 06/17/17 15:30 07/01/17 15:29 06/20/17 01:40 25 MG Sodium Chloride 1,000 ml @ 15 mls/hr Q24H IV 06/17/17 16:00 07/17/17 15:59 06/20/17 18:53 15 MLS/HR Prednisone (PredniSONE TAB) 30 mg QAM PO 06/20/17 08:00 07/20/17 07:59 06/21/17 08:21 30 MG Gabapentin (Neurontin Cap) 300 mg TID PO 06/21/17 14:00 07/21/17 13:59 06/21/17 13:50 300 MG Gabapentin (Neurontin Cap) 300 mg 1129 ONCE PO 06/21/17 11:29 06/21/17 11:32 DC 06/21/17 12:26 300 MG Ketorolac Tromethamine (Toradol Inj) 15 mg NOW STAT IV. 06/21/17 11:29 06/21/17 11:32 DC 06/21/17 11:42 15 MG Objective Vital Signs Vital Signs Past 12 Hours Date Time Temp Pulse Resp B/P (MAP) Pulse Ox O2 Delivery O2 Flow Rate FiO2 06/21/17 14:48 82 16 97 Nasal Cannula 3.0 06/21/17 11:30 82 16 97 Nasal Cannula 3.0 06/21/17 11:17 37.0 68 20 106/61 (76) 92 06/21/17 08:00 97 Nasal Cannula 3.0 06/21/17 07:35 36.5 73 20 114/55 (74) 97 06/21/17 07:00 82 16 97 Nasal Cannula 3.0 06/21/17 03:05 36.8 79 18 119/64 (82) 97 Nasal Cannula 3.0 Physical Exam General Appearance: no apparent distress Eyes: PERRL, EOMI ENT: hearing grossly normal Neck: supple, no JVD Respiratory/Chest: no respiratory distress, no accessory muscle use, + decreased breath sounds Cardiovascular: regular rate, rhythm, no edema Abdomen: normal bowel sounds, non tender, soft Extremities: + pertinent finding (minimal ROM of the right shoulder due to pain ) 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: + motor weakness Assessment and Plan 67 yo male with acute on chronic respiratory failure secondary to COPD exacerbation and possible worsening lung cancer. 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 Terrazas to target mets to the shoulder --> completed tx - Patient recently started on Optiva --> Chemotherapy medication - Pain management consulted Chronic pancytopenia likely secondary to metastatic lung cancer - Continue folic acid 1mg daily - Hgb stable --> Daily CBC Hx of DVT and PE - Lovenox 40mg Daily Paroxysmal Atrial Fibrillation - No anticoagulation secondary to comorbidities - Currently NSR BPH - Finasteride 5 mg - Tamsulosin 0.4 mg PT/OT - Patient refusing at this time due to severe pain Code Status - Do Not Resuscitate At patient's request, care has been transferred to Dr. Marquis. Resident Physician Supervision Note: I interviewed and examined the patient. Discussed with Dr. Aleman and agree with findings and plan as documented in the note. Any exceptions or clarifications are listed here: None Documented By: Santiago Marquis pain and anxiety are bad vitlas noted nad able to abduct arm to ~15 degrees before significant pain - notes this is actually better than before shoulder pain - from mets and pathologic fracture of clavicle -showed pt xrays, explained why he's having the pain he's having -PT or orthotics to fit with brace to minimize or support him in abduction -increase fentanyl patch (and reduce baseline HAND PLATE STACKER continues) -increase HAND PLATE STACKER click dose to 0.5 [id number] -add gabapentin -renal function adequate for toradol -venlafaxine for both pain and anxiety anxiety -venlafaxine spray applicator titrate to goal -short term ativan otherwise as above
[2017-06-21] MEDS ORDERED: VENLAFAXINE HCL XR 37.5 MG CAPXR PO ONE (17:13)
[2017-06-21] MEDS ORDERED: POLYETHYLENE (MIRALAX) 17 GM PACK PO PRN (17:30)
[2017-06-21] MEDS: FENTANYL 25 MCG/HR TDSY TD SCH (17:52)
[2017-06-21] MEDS: POLYETHYLENE (MIRALAX) 17 GM PACK PO SCH (17:53)
[2017-06-21] MEDS: FENTANYL 100 MCG/HR TDSY TD SCH (17:53)
[2017-06-21] MEDS: FENTANYL PATCH REMOVE & WASTE SCH (17:56)
[2017-06-21] MEDS: HYDROmorphone HCL 0.5MG/ML 50 ML CASSETTE IV PRN ×2 (17:58→21:23)
[2017-06-21] MEDS: TAMSULOSIN HCL 0.4 MG CAP PO SCH (20:34)
[2017-06-21] MEDS: DOCUSATE SODIUM 100 MG CAP PO SCH (20:34)
[2017-06-22] VITALS (10 sets, daily range): BP systolic 119–124; BP diastolic 50–63; PULSE 66–85; TEMP 36.5–36.8; O2SAT 90–96
[2017-06-22] MEDS: CHECK FENTANYL PATCH PLACEMENT SCH ×6 (00:27→15:29)
[2017-06-22] MEDS: SODIUM CHLORIDE 0.9% 1000ML 1,000 ML IV SCH (04:07)
[2017-06-22] MEDS: ALBUT/IPRATROP 3MG/0.5MG NEB 3 ML VIAL INH SCH ×4 (07:09→19:40)
[2017-06-22] MEDS ORDERED: VENLAFAXINE HCL XR 37.5 MG CAPXR PO SCH (08:00)
[2017-06-22] MEDS: BUDESONIDE/FORMOTEROL FUMARATE 160/4.5 60 PUFFS/INHALER INH SCH ×2 (08:21→21:14)
[2017-06-22] MEDS: POLYETHYLENE (MIRALAX) 17 GM PACK PO SCH (08:21)
[2017-06-22] MEDS: GUAIFENESIN 600 MG TABCR PO SCH ×2 (08:22→21:13)
[2017-06-22] MEDS: GABAPENTIN 300 MG CAP PO SCH ×3 (08:22→21:12)
[2017-06-22] MEDS: LIDODERM (LIDOCAINE) PATCH 5% TD SCH (08:23)
[2017-06-22] MEDS: FINASTERIDE 5 MG TAB PO SCH (08:23)
[2017-06-22] MEDS: ENOXAPARIN 40 MG/0.4 ML SYR SQ SCH (08:23)
[2017-06-22] MEDS: DOCUSATE SODIUM 100 MG CAP PO SCH ×2 (08:24→21:13)
--- NOTE | 2017-06-22 18:06 | Progress Note ---
Subjective Date of Service: Jun 22, 2017. Subjective Pt evaluation today including: conversation w/ patient, conversation w/ family , physical exam, chart review, lab review, review of inpatient medication list able to move more - still having a good deal of pain but feels like he's making progress no sob no groggy/confused concurs pleased with care pleased with progress pain still mostly in area of clavicle met - and worse w movement than anything else Problem List Medical Problems: (1) Acute bronchitis Status: Acute (2) Acute on chronic respiratory failure with hypoxia Status: Acute (3) Acute respiratory failure with hypoxia and hypercapnia Status: Acute (4) Acute respiratory failure with hypoxia and hypercarbia Status: Acute (5) Anemia Status: Acute (6) Bilateral pulmonary embolism Status: Acute (7) Bronchitis Status: Acute (8) CO2 narcosis Status: Acute (9) Dehydration Status: Acute (10) Dehydration Status: Acute (11) Dysuria Status: Acute (12) Generalized weakness Status: Acute (13) Hematuria Status: Acute (14) Hematuria Status: Acute (15) Hematuria Status: Acute (16) Hypotension Status: Acute (17) Hypotension Status: Acute (18) Hypoxia Status: Chronic (19) Hypoxia Status: Acute (20) Hypoxia Status: Acute (21) Hypoxia Status: Acute (22) Left rib fracture Status: Acute (23) Lung cancer Status: Acute (24) Mediastinal lymphadenopathy Status: Acute (25) Metastatic lung cancer (metastasis from lung to other site) Status: Acute (26) Metastatic lung cancer (metastasis from lung to other site) Status: Chronic (27) Neutropenia Status: Acute (28) Neutropenia Status: Acute (29) Non-traumatic compression fracture of T5 thoracic vertebra Status: Acute (30) Osteolytic 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 Status: Acute (31) Pathological fracture of rib of right side Status: Acute (32) Pulmonary nodules Status: Acute (33) Right shoulder pain Status: Acute (34) SVT (supraventricular tachycardia) Status: Acute (35) Thrombocytopenia Status: Acute (36) Weakness Status: Acute Review of Systems all other ROS otherwise negative except for as above Objective Vital Signs Date Time Temp Pulse Resp B/P (MAP) Pulse Ox O2 Delivery O2 Flow Rate FiO2 06/22/17 16:02 36.7 85 20 122/50 (74) 92 Nasal Cannula 3.0 06/22/17 16:00 92 Nasal Cannula 3.0 2/18/18 14:27 77 16 90 Nasal Cannula 3.0 06/22/17 11:17 73 16 93 Nasal Cannula 3.0 06/22/17 08:19 36.7 66 16 119/53 (75) 96 Nasal Cannula 3.0 06/22/17 08:00 96 Nasal Cannula 3.0 06/22/17 07:10 71 16 96 Nasal Cannula 3.0 06/22/17 00:00 Nasal Cannula 3.0 06/21/17 23:40 36.8 73 20 99/56 (70) 95 Room Air 06/21/17 20:00 Nasal Cannula 3.0 06/21/17 19:41 71 16 96 Nasal Cannula 3.0 06/21/17 19:32 36.9 80 20 106/58 (74) 98 Nasal Cannula 4.0 Physical Exam General Appearance: no apparent distress Eyes: EOMI ENT: hearing grossly normal Neck: trachea midline Respiratory/Chest: no respiratory distress, no accessory muscle use Extremities: + pertinent finding (able to abduct R arm to almost 90 degrees) 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: semiconductor engineer II-XII nml as tested, alert, normal mood/affect Assessment and Plan Acute on chronic hypercapnic/ hypoxic respiratory failure secondary to COPD exacerbation in an individual with metastatic lung adenocarcinoma - Currently requiring baseline home O2 of 3L - Clinically improving - Prednisone slow taper - Duonebs - Procalcitonin negative - Influenza negative 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 - multimodal pain management - narcotics - fentanyl patch and CONCRETE RUBBER --> trnasition to PO prn breakthrough - gabapentin - titrate up as tolerated - splint/sling - XRT to lesions - venlafaxine ER titrate up as tolerated anxiety -understandably related to current situation -venlafaxine titrate up as tolerated, ativan prn Chronic pancytopenia likely secondary to metastatic lung cancer - Continue folic acid 1mg daily - Hgb stable, follow periodically Hx of DVT and PE - Lovenox 40mg Daily proph Paroxysmal Atrial Fibrillation - No chronic anticoagulation secondary to comorbidities - Currently NSR BPH - Finasteride 5 mg - Tamsulosin 0.4 mg home once pain better controlled, on all meds workable at home, and able to do basics for self care Continued [facility] stay due to: multiple IV medications needed Discharge planning: uncertain
[2017-06-22] MEDS: TAMSULOSIN HCL 0.4 MG CAP PO SCH (21:14)
[2017-06-23] VITALS (10 sets, daily range): BP systolic 101–137; BP diastolic 49–88; PULSE 57–87; TEMP 36.6–37; O2SAT 90–99
[2017-06-23] MEDS: CHECK FENTANYL PATCH PLACEMENT SCH ×6 (00:14→15:51)
[2017-06-23] MEDS: KETOROLAC TROMETHAMINE 15 MG/ML VIAL IV. PRN ×2 (01:57→22:03)
[2017-06-23 05:41] LABS: HEMATOCRIT 27.4 % (42-52); HEMOGLOBIN 8.9 g/dL (14.0-18.0); MEAN CORPUSCULAR HEMOGLOBIN 33.5 pg (25-34); MEAN CORPUSCULAR HGB CONC 32.5 g/dl (32-36); MEAN PLATELET VOLUME 8.5 fL (7.4-10.4); PLATELET COUNT 117 K/uL (130-400); RED CELL DISTRIBUTION WIDTH CV 14.8 % (11.5-14.5); RED CELL DISTRIBUTION WIDTH SD 55.9 fL (36.4-46.3)
[2017-06-23 06:12] LABS: CREATININE 0.43 mg/dl (0.60-1.40)
[2017-06-23] MEDS: ALBUT/IPRATROP 3MG/0.5MG NEB 3 ML VIAL INH SCH ×4 (06:57→19:04)
[2017-06-23] MEDS: POLYETHYLENE (MIRALAX) 17 GM PACK PO SCH (07:53)
[2017-06-23] MEDS: VENLAFAXINE HCL XR 75 MG CAPXR PO SCH (07:53)
[2017-06-23] MEDS: DOCUSATE SODIUM 100 MG CAP PO SCH ×2 (07:54→21:13)
[2017-06-23] MEDS: GUAIFENESIN 600 MG TABCR PO SCH ×2 (07:54→21:15)
[2017-06-23] MEDS: FINASTERIDE 5 MG TAB PO SCH (07:55)
[2017-06-23] MEDS: LIDODERM (LIDOCAINE) PATCH 5% TD SCH (07:55)
[2017-06-23] MEDS: BUDESONIDE/FORMOTEROL FUMARATE 160/4.5 60 PUFFS/INHALER INH SCH ×2 (07:56→21:12)
[2017-06-23] MEDS: ENOXAPARIN 40 MG/0.4 ML SYR SQ SCH (07:57)
[2017-06-23] MEDS ORDERED: GABAPENTIN 300 MG CAP PO SCH (08:00)
[2017-06-23] MEDS: SODIUM CHLORIDE 0.9% 1000ML 1,000 ML IV SCH ×2 (08:02→15:49)
--- NOTE | 2017-06-23 09:47 | Progress Note ---
Subjective Date of Service: Jun 23, 2017. Subjective Pt evaluation today including: conversation w/ patient, physical exam, chart review, lab review, review of inpatient medication list slowly doing better, feels like he still has to make more progress before he can do OK at home, but definitely feels like he's improving with pain control and mobility. can move arm a lot more than he could before prior to pain limiting things. no nausea, eating OK a little groggy right now but notes it's more because he was about to fall asleep for a nap when i came in, doesn't feel like he's "overmedicated" notes that he thinks he's tolerating meds well no sob, does not feel that wrap around arm/chest is limiting breathing at all Problem List Medical Problems: (1) Acute bronchitis Status: Acute (2) Acute on chronic respiratory failure with hypoxia Status: Acute (3) Acute respiratory failure with hypoxia and hypercapnia Status: Acute (4) Acute respiratory failure with hypoxia and hypercarbia Status: Acute (5) Anemia Status: Acute (6) Bilateral pulmonary embolism Status: Acute (7) Bronchitis Status: Acute (8) CO2 narcosis Status: Acute (9) Dehydration Status: Acute (10) Dehydration Status: Acute (11) Dysuria Status: Acute (12) Generalized weakness Status: Acute (13) Hematuria Status: Acute (14) Hematuria Status: Acute (15) Hematuria Status: Acute (16) Hypotension Status: Acute (17) Hypotension Status: Acute (18) Hypoxia Status: Chronic (19) Hypoxia Status: Acute (20) Hypoxia Status: Acute (21) Hypoxia Status: Acute (22) Left rib fracture Status: Acute (23) Lung cancer Status: Acute (24) Mediastinal lymphadenopathy Status: Acute (25) Metastatic lung cancer (metastasis from lung to other site) Status: Acute (26) Metastatic lung cancer (metastasis from lung to other site) Status: Chronic (27) Neutropenia Status: Acute (28) Neutropenia Status: Acute (29) Non-traumatic compression fracture of T5 thoracic vertebra Status: Acute (30) Osteolytic 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 Status: Acute (31) Pathological fracture of rib of right side Status: Acute (32) Pulmonary nodules Status: Acute (33) Right shoulder pain Status: Acute (34) SVT (supraventricular tachycardia) Status: Acute (35) Thrombocytopenia Status: Acute (36) Weakness Status: Acute Review of Systems all other ROS otherwise negative except for as above Objective Vital Signs Date Time Temp Pulse Resp B/P (MAP) Pulse Ox O2 Delivery O2 Flow Rate FiO2 06/23/17 07:21 36.6 57 18 110/58 (75) 98 Nasal Cannula 3.0 06/23/17 06:57 67 16 97 Nasal Cannula 3.0 06/23/17 00:00 Nasal Cannula 3.0 06/22/17 22:53 36.5 72 20 124/63 (83) 96 Nasal Cannula 3.0 06/22/17 20:00 Nasal Cannula 3.0 06/22/17 19:43 77 16 93 Nasal Cannula 3.0 06/22/17 19:25 36.8 82 20 121/57 (78) 95 Nasal Cannula 3.0 06/22/17 16:02 36.7 85 20 122/50 (74) 92 Nasal Cannula 3.0 06/22/17 16:00 92 Nasal Cannula 3.0 06/22/17 14:27 77 16 90 Nasal Cannula 3.0 06/22/17 11:17 73 16 93 Nasal Cannula 3.0 Physical Exam General Appearance: no apparent distress Eyes: EOMI ENT: hearing grossly normal Respiratory/Chest: no respiratory distress, no accessory muscle use Extremities: + pertinent finding (able to abduct R arm to nearly 90 before limited by pain ) 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: 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 as tested, alert, normal mood/affect, oriented x 3 (slightly groggy but completely oriented/appropriate, does appear somewhat fatigued) Skin: normal color, warm/dry Laboratory Results Last 24 Hours Test 06/23/17 05:07 White Blood Count 7.50 K/uL Red Blood Count 2.66 M/uL Hemoglobin 8.9 g/dL Hematocrit 27.4 % Mean Corpuscular Volume 103.0 fL Mean Corpuscular Hemoglobin 33.5 pg Mean Corpuscular Hemoglobin Concent 32.5 g/dl RDW Standard Deviation 55.9 fL RDW Coefficient of Variation 14.8 % Platelet Count 117 K/uL Mean Platelet Volume 8.5 fL Creatinine 0.43 mg/dl Est Creatinine Clear Calc Drug Dose 170.7 ml/min Estimated GFR () 138.3 Estimated GFR (Non- 119.3 Assessment and Plan Acute on chronic hypercapnic/ hypoxic respiratory failure secondary to COPD exacerbation in an individual with metastatic lung adenocarcinoma - Currently requiring baseline home O2 of 3L - Clinically appears around baseline - Prednisone slow taper - Duonebs - Procalcitonin negative - Influenza negative 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 - multimodal pain management - narcotics - fentanyl patch and FIRE TECHNOLOGY INSTRUCTOR --> transition to PO prn breakthrough ( probably by tomorrow will dc executive wellness programs director) - gabapentin - titrate up as tolerated (increased to 300/300/600 last night, will increase to 600/300/600 tomorrow as long as still tolerating) - splint/sling (orthotics consult) - XRT to lesions to continue - venlafaxine ER titrate up as tolerated (increased to 75mg today no nausea) anxiety -understandably related to current situation -venlafaxine titrate up as tolerated, ativan prn -doing much better wtih better pain control Chronic pancytopenia likely secondary to metastatic lung cancer - Continue folic acid 1mg daily - Hgb stable, follow periodically Hx of DVT and PE - Lovenox 40mg Daily proph Paroxysmal Atrial Fibrillation - No chronic anticoagulation secondary to comorbidities - Currently NSR BPH - Finasteride 5 mg - Tamsulosin 0.4 mg home once pain better controlled, on all meds workable at home, and able to do basics for self care - showing [facility] Continued [facility] stay due to: multiple IV medications needed Discharge planning: uncertain
--- NOTE | 2017-06-23 14:08 | Palliative Care Progress Note ---
Palliative Care Progress Note Date of Service Jun 23, 2017. Subjective Pt evaluation today including: conversation w/ patient, physical exam, conversation w/ ergonomics consultant (Dr. Marquis), review of inpatient medication list Pain: 2/10 at rest, better PO Intake: tolerating diet Voiding: no voiding problems Patient looks well today. States he is a little tired but the pain is "better." When asking patient about pain, he states it's still "off the charts" when he lifts his right arm past about 80 degrees. However, he has much more range of motion of the arm. Radiation seems to be working. Review of Systems Constitutional: No weakness ENT: No trouble swallowing Respiratory: + wheezing (improved), + dyspnea on exertion, No cough, No shortness of breath Cardiac: No chest pain, No edema Abdomen: No pain, No nausea, No vomiting Male : No problem reported Psychiatric: No depression symptoms, No anxiety Objective Vital Signs Date Time Temp Pulse Resp B/P (MAP) Pulse Ox O2 Delivery O2 Flow Rate FiO2 06/23/17 12:05 36.6 87 20 101/88 (92) 99 Nasal Cannula 3.0 06/23/17 11:07 64 16 94 Nasal Cannula 3.0 06/23/17 08:30 98 Nasal Cannula 3.0 06/23/17 07:21 36.6 57 18 110/58 (75) 98 Nasal Cannula 3.0 06/23/17 06:57 67 16 97 Nasal Cannula 3.0 06/23/17 00:00 Nasal Cannula 3.0 06/22/17 22:53 36.5 72 20 124/63 (83) 96 Nasal Cannula 3.0 06/22/17 20:00 Nasal Cannula 3.0 06/22/17 19:43 77 16 93 Nasal Cannula 3.0 06/22/17 19:25 36.8 82 20 121/57 (78) 95 Nasal Cannula 3.0 06/22/17 16:02 36.7 85 20 122/50 (74) 92 Nasal Cannula 3.0 06/22/17 16:00 92 Nasal Cannula 3.0 06/22/17 14:27 77 16 90 Nasal Cannula 3.0 Physical Exam General Appearance: no apparent distress ENT: hearing grossly normal Neck: supple, thyroid normal Respiratory/Chest: no respiratory distress, no accessory muscle use, + wheezing (faint, expiratory) Cardiovascular: regular rate, rhythm, no edema, + normal peripheral pulses 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: alert, normal mood/affect, oriented x 3 Skin: normal color, + pertinent finding (some cyanosis of ears which is normal for patient) Laboratory Results Last 24 Hours Test 06/23/17 05:07 White Blood Count 7.50 K/uL Red Blood Count 2.66 M/uL Hemoglobin 8.9 g/dL Hematocrit 27.4 % Mean Corpuscular Volume 103.0 fL Mean Corpuscular Hemoglobin 33.5 pg Mean Corpuscular Hemoglobin Concent 32.5 g/dl RDW Standard Deviation 55.9 fL RDW Coefficient of Variation 14.8 % Platelet Count 117 K/uL Mean Platelet Volume 8.5 fL Creatinine 0.43 mg/dl Est Creatinine Clear Calc Drug Dose 170.7 ml/min Estimated GFR () 138.3 Estimated GFR (Non- 119.3 Assessment and Plan Problem list: Severe pain of right shoulder 2/2 mets SOB/TSE COPD exacerbation/acute on chronic hypercapnic respiratory failure Metastatic lung cancer Right shoulder metastatic lesion Chronic pancytopenia Palliative care recs: -Continue Dilaudid PURCHASING DIRECTOR pump. Basal rate at 0mg/hr. Was changed over weekend to 1mg Q30 min PURCHASING DIRECTOR dose. Patient used 16.3mg in last 24 hours from what is documented. This is a significantly higher number than what he was receiving last week. Recommend decreasing PRN dose to 0.5mg Q30min. -Fentanyl patch increased by Dr. Marquis to 125mcg/hr. Was also started on gabapentin. -Continuing to receive radiation therapy to right shoulder. Had fourth treatment on Friday, planned for 10. Will continue to follow. Total time spent 25 minutes with >50% of time spent with patient counseling and going over plan of care. Palliative Performance Scale: 70 % Continued [facility] stay due to: multiple IV medications needed Discharge planning: uncertain
[2017-06-23] MEDS: GABAPENTIN 300 MG CAP PO SCH ×2 (15:49→21:14)
[2017-06-23] MEDS: HYDROmorphone HCL 0.5MG/ML 50 ML CASSETTE IV PRN ×2 (18:51→18:58)
[2017-06-23] MEDS: TAMSULOSIN HCL 0.4 MG CAP PO SCH (21:15)
[2017-06-23] MEDS ORDERED: FENTANYL 100 MCG/HR TDSY TD SCH (22:00)
[2017-06-23] MEDS: LORAZEPAM 0.5 MG TAB PO PRN (22:03)
[2017-06-24] VITALS (8 sets, daily range): BP systolic 113–137; BP diastolic 56–70; PULSE 72–92; TEMP 36.8–37.5; O2SAT 89–94
[2017-06-24] MEDS: CHECK FENTANYL PATCH PLACEMENT SCH ×8 (00:05→23:57)
[2017-06-24] MEDS: ALBUT/IPRATROP 3MG/0.5MG NEB 3 ML VIAL INH SCH ×4 (07:03→19:16)
[2017-06-24] MEDS: POLYETHYLENE (MIRALAX) 17 GM PACK PO SCH (08:00)
[2017-06-24] MEDS: BUDESONIDE/FORMOTEROL FUMARATE 160/4.5 60 PUFFS/INHALER INH SCH ×2 (08:19→20:51)
[2017-06-24] MEDS: VENLAFAXINE HCL XR 75 MG CAPXR PO SCH (08:19)
[2017-06-24] MEDS: ENOXAPARIN 40 MG/0.4 ML SYR SQ SCH (08:21)
[2017-06-24] MEDS: FINASTERIDE 5 MG TAB PO SCH (08:22)
[2017-06-24] MEDS: DOCUSATE SODIUM 100 MG CAP PO SCH ×2 (08:22→20:53)
[2017-06-24] MEDS: GABAPENTIN 600 MG TAB PO SCH (08:23)
[2017-06-24] MEDS: LIDODERM (LIDOCAINE) PATCH 5% TD SCH (08:24)
[2017-06-24] MEDS: GUAIFENESIN 600 MG TABCR PO SCH ×2 (08:25→20:53)
[2017-06-24] MEDS: OXYCODONE HCL IR 5 MG TAB (IMMEDIATE RELEASE) PO PRN ×2 (12:52→17:18)
--- NOTE | 2017-06-24 13:00 | Progress Note ---
Subjective Date of Service: Jun 24, 2017. Subjective Pt evaluation today including: conversation w/ patient, physical exam, chart review, lab review, review of inpatient medication list pain improving same ROM w R arm but able to move more with less pain, and doesn't appear to have the severe intense pain with movement he had before doesnt' feel groggy or "overmedicated" eating well no other new complaints Problem List Medical Problems: (1) Acute bronchitis Status: Acute (2) Acute on chronic respiratory failure with hypoxia Status: Acute (3) Acute respiratory failure with hypoxia and hypercapnia Status: Acute (4) Acute respiratory failure with hypoxia and hypercarbia Status: Acute (5) Anemia Status: Acute (6) Bilateral pulmonary embolism Status: Acute (7) Bronchitis Status: Acute (8) CO2 narcosis Status: Acute (9) Dehydration Status: Acute (10) Dehydration Status: Acute (11) Dysuria Status: Acute (12) Generalized weakness Status: Acute (13) Hematuria Status: Acute (14) Hematuria Status: Acute (15) Hematuria Status: Acute (16) Hypotension Status: Acute (17) Hypotension Status: Acute (18) Hypoxia Status: Chronic (19) Hypoxia Status: Acute (20) Hypoxia Status: Acute (21) Hypoxia Status: Acute (22) Left rib fracture Status: Acute (23) Lung cancer Status: Acute (24) Mediastinal lymphadenopathy Status: Acute (25) Metastatic lung cancer (metastasis from lung to other site) Status: Acute (26) Metastatic lung cancer (metastasis from lung to other site) Status: Chronic (27) Neutropenia Status: Acute (28) Neutropenia Status: Acute (29) Non-traumatic compression fracture of T5 thoracic vertebra Status: Acute (30) Osteolytic 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 Status: Acute (31) Pathological fracture of rib of right side Status: Acute (32) Pulmonary nodules Status: Acute (33) Right shoulder pain Status: Acute (34) SVT (supraventricular tachycardia) Status: Acute (35) Thrombocytopenia Status: Acute (36) Weakness Status: Acute Review of Systems all other ROS otherwise negative except for as above Objective Vital Signs Date Time Temp Pulse Resp B/P (MAP) Pulse Ox O2 Delivery O2 Flow Rate FiO2 06/24/17 11:22 72 16 92 Nasal Cannula 3.0 06/24/17 11:19 36.9 88 18 113/61 (78) 91 Nasal Cannula 3.0 06/24/17 08:30 Nasal Cannula 3.0 06/24/17 08:00 Nasal Cannula 3.0 06/24/17 07:40 36.8 80 22 137/70 (92) 94 Nasal Cannula 3.0 06/24/17 07:06 78 16 94 Nasal Cannula 3.0 06/24/17 00:00 Nasal Cannula 3.0 06/23/17 23:12 36.7 80 18 117/49 (71) 95 2.0 06/23/17 20:00 Nasal Cannula 3.0 06/23/17 19:44 37.0 84 20 125/55 (78) 90 Nasal Cannula 3.0 06/23/17 19:05 79 16 90 Nasal Cannula 3.0 06/23/17 16:35 36.6 79 20 137/51 (79) 92 Nasal Cannula 3.0 06/23/17 16:00 Nasal Cannula 3.0 06/23/17 15:56 72 16 90 Nasal Cannula 3.0 06/23/17 14:34 3.0 Physical Exam General Appearance: no apparent distress Eyes: EOMI ENT: hearing grossly normal Neck: trachea midline Respiratory/Chest: no respiratory distress, no accessory muscle use Extremities: + pertinent finding (same ROM of R arm as yesterday but less painful within that ROM) 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: 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 II-XII nml as tested, alert, normal mood/affect Assessment and Plan Acute on chronic hypercapnic/ hypoxic respiratory failure secondary to COPD exacerbation in an individual with metastatic lung adenocarcinoma - Currently requiring baseline home O2 of 3L - Clinically appears around baseline - Prednisone slow taper - reduce again - Duonebs as ordered - Procalcitonin negative - Influenza negative 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 - multimodal pain management - narcotics - fentanyl patch and [employer] --> transition to PO prn today (dc [employer] and use 10mg oxycodone q4hr prn breakthrough) - gabapentin - titrate up as tolerated (increased to 600/300/600) - splint/sling (orthotics consult) - XRT to lesions to continue - venlafaxine ER titrate up as tolerated (increased to 75mg 06/23 no nausea) anxiety -understandably related to current situation -venlafaxine titrate up as tolerated, ativan prn -doing much better with better pain control Chronic pancytopenia likely secondary to metastatic lung cancer - Continue folic acid 1mg daily - Hgb stable, follow periodically Hx of DVT and PE - Lovenox 40mg Daily proph Paroxysmal Atrial Fibrillation - No chronic anticoagulation secondary to comorbidities - Currently NSR, rates good BPH - Finasteride 5 mg - Tamsulosin 0.4 mg hopefully home in ~24-48hrs w further progress Continued [facility] stay due to: multiple IV medications needed Discharge planning: uncertain
[2017-06-24] MEDS: GABAPENTIN 300 MG CAP PO SCH ×2 (13:01→20:53)
--- NOTE | 2017-06-24 13:28 | Palliative Care Progress Note ---
Palliative Care Progress Note Date of Service Jun 24, 2017. Subjective Pt evaluation today including: conversation w/ patient, physical exam, chart review, review of inpatient medication list Pain: 06/14 PO Intake: tolerating diet Voiding: no voiding problems patient seems groggy today. ROM in arm is still improved, pain is the same. Dilaudid FIELD SUPPORT REP pump to be discontinued today, starting oxycodone IR 10mg PO Q4h PRN pain. Review of Systems Constitutional: No weakness ENT: No trouble swallowing Respiratory: + dyspnea on exertion, No cough, No dyspnea at rest Cardiac: No chest pain, No edema Abdomen: No pain, No nausea, No vomiting Male : No problem reported Psychiatric: No depression symptoms, No anxiety Objective Vital Signs Date Time Temp Pulse Resp B/P (MAP) Pulse Ox O2 Delivery O2 Flow Rate FiO2 06/24/17 11:22 72 16 92 Nasal Cannula 3.0 06/24/17 11:19 36.9 88 18 113/61 (78) 91 Nasal Cannula 3.0 06/24/17 08:30 Nasal Cannula 3.0 06/24/17 08:00 Nasal Cannula 3.0 06/24/17 07:40 36.8 80 22 137/70 (92) 94 Nasal Cannula 3.0 06/24/17 07:06 78 16 94 Nasal Cannula 3.0 06/24/17 00:00 Nasal Cannula 3.0 06/23/17 23:12 36.7 80 18 117/49 (71) 95 2.0 06/23/17 20:00 Nasal Cannula 3.0 06/23/17 19:44 37.0 84 20 125/55 (78) 90 Nasal Cannula 3.0 06/23/17 19:05 79 16 90 Nasal Cannula 3.0 06/23/17 16:35 36.6 79 20 137/51 (79) 92 Nasal Cannula 3.0 06/23/17 16:00 Nasal Cannula 3.0 06/23/17 15:56 72 16 90 Nasal Cannula 3.0 06/23/17 14:34 3.0 Physical Exam General Appearance: no apparent distress ENT: hearing grossly normal Neck: supple, no JVD Respiratory/Chest: no respiratory distress, no accessory muscle use Cardiovascular: regular rate, rhythm, no edema Abdomen: normal bowel sounds, non tender, soft 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: normal mood/affect, oriented x 3 Skin: + pallor Assessment and Plan Problem list: Severe pain of right shoulder 2/2 mets SOB/TSE COPD exacerbation/acute on chronic hypercapnic respiratory failure Metastatic lung cancer Right shoulder metastatic lesion Chronic pancytopenia Palliative care recs: -FIELD SUPPORT REP pump has been discontinued. He is now ordered oxycodone IR 10mg PO Q4h PRN pain. Has not received a dose of that. -Is going to receive radiation today. Hopefully discharge home later in the week. -Patient seems groggy today. Hopefully this will improve without the Dilaudid. Narcotics do not seem to help the pain in right shoulder, but the XRT is helping. While patient states his pain is the same, he has much better ROM than he did upon admission. -Fentanyl patch is at 125mcg/hr TD Q72h. -Pain meds being managed by hospitalist team. I will sign off for now but please don't hesitate to contact me with any further palliative care needs. Total time spent 25 minutes with >50% of time spent with patient counseling and going over plan of care. Palliative Performance Scale: 70 % Continued [facility] stay due to: multiple IV medications needed Discharge planning: uncertain
[2017-06-24] MEDS: FENTANYL 100 MCG/HR TDSY TD SCH (17:20)
[2017-06-24] MEDS: FENTANYL 25 MCG/HR TDSY TD SCH (17:20)
[2017-06-24] MEDS: FENTANYL PATCH REMOVE & WASTE SCH ×2 (17:21)
[2017-06-24] MEDS: KETOROLAC TROMETHAMINE 15 MG/ML VIAL IV. PRN (19:36)
[2017-06-24] MEDS: TAMSULOSIN HCL 0.4 MG CAP PO SCH (20:52)
[2017-06-25] VITALS (12 sets, daily range): BP systolic 113–138; BP diastolic 62–78; PULSE 66–102; TEMP 36.9–37.7; O2SAT 87–97
[2017-06-25] MEDS: OXYCODONE HCL IR 5 MG TAB (IMMEDIATE RELEASE) PO PRN ×4 (02:36→17:50)
[2017-06-25] MEDS: ALBUT/IPRATROP 3MG/0.5MG NEB 3 ML VIAL INH SCH ×4 (07:14→20:11)
[2017-06-25] MEDS: VENLAFAXINE HCL XR 75 MG CAPXR PO SCH (08:39)
[2017-06-25] MEDS: GABAPENTIN 600 MG TAB PO SCH (08:39)
[2017-06-25] MEDS: GUAIFENESIN 600 MG TABCR PO SCH ×2 (08:39→20:23)
[2017-06-25] MEDS: FINASTERIDE 5 MG TAB PO SCH (08:40)
[2017-06-25] MEDS: LIDODERM (LIDOCAINE) PATCH 5% TD SCH (08:42)
[2017-06-25] MEDS: POLYETHYLENE (MIRALAX) 17 GM PACK PO SCH (08:43)
[2017-06-25] MEDS: BUDESONIDE/FORMOTEROL FUMARATE 160/4.5 60 PUFFS/INHALER INH SCH ×2 (08:43→20:22)
[2017-06-25] MEDS: DOCUSATE SODIUM 100 MG CAP PO SCH ×2 (08:43→20:22)
[2017-06-25] MEDS: ENOXAPARIN 40 MG/0.4 ML SYR SQ SCH (08:44)
[2017-06-25] MEDS: CHECK FENTANYL PATCH PLACEMENT SCH ×4 (08:45→15:33)
[2017-06-25] MEDS ORDERED: VENL150T33 PO (13:19)
[2017-06-25] MEDS ORDERED: DRGTP25 TD (13:19)
[2017-06-25] MEDS ORDERED: NRN600 PO (13:19)
[2017-06-25] MEDS ORDERED: DRGTP100 TD (13:19)
[2017-06-25] MEDS ORDERED: PRD10 PO (13:19)
[2017-06-25] MEDS ORDERED: RXC5 PO (13:19)
[2017-06-25] MEDS: GABAPENTIN 300 MG CAP PO SCH ×2 (13:34→20:24)
[2017-06-25] MEDS: KETOROLAC TROMETHAMINE 15 MG/ML VIAL IV. PRN ×2 (14:31→20:22)
--- NOTE | 2017-06-25 19:05 | Progress Note ---
Subjective Date of Service: Jun 25, 2017. Subjective Pt evaluation today including: conversation w/ patient, physical exam feeling better still worried about ROM of arm no BM but no pain not groggy no breathing issues Problem List Medical Problems: (1) Acute bronchitis Status: Acute (2) Acute on chronic respiratory failure with hypoxia Status: Acute (3) Acute respiratory failure with hypoxia and hypercapnia Status: Acute (4) Acute respiratory failure with hypoxia and hypercarbia Status: Acute (5) Anemia Status: Acute (6) Bilateral pulmonary embolism Status: Acute (7) Bronchitis Status: Acute (8) CO2 narcosis Status: Acute (9) Dehydration Status: Acute (10) Dehydration Status: Acute (11) Dysuria Status: Acute (12) Generalized weakness Status: Acute (13) Hematuria Status: Acute (14) Hematuria Status: Acute (15) Hematuria Status: Acute (16) Hypotension Status: Acute (17) Hypotension Status: Acute (18) Hypoxia Status: Chronic (19) Hypoxia Status: Acute (20) Hypoxia Status: Acute (21) Hypoxia Status: Acute (22) Left rib fracture Status: Acute (23) Lung cancer Status: Acute (24) Mediastinal lymphadenopathy Status: Acute (25) Metastatic lung cancer (metastasis from lung to other site) Status: Acute (26) Metastatic lung cancer (metastasis from lung to other site) Status: Chronic (27) Neutropenia Status: Acute (28) Neutropenia Status: Acute (29) Non-traumatic compression fracture of T5 thoracic vertebra Status: Acute (30) Osteolytic 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 Status: Acute (31) Pathological fracture of rib of right side Status: Acute (32) Pulmonary nodules Status: Acute (33) Right shoulder pain Status: Acute (34) SVT (supraventricular tachycardia) Status: Acute (35) Thrombocytopenia Status: Acute (36) Weakness Status: Acute Review of Systems all other ROS otherwise negative except for as above Objective Vital Signs Date Time Temp Pulse Resp B/P (MAP) Pulse Ox O2 Delivery O2 Flow Rate FiO2 06/25/17 18:55 37.3 76 19 121/62 (81) 92 Nasal Cannula 4.0 Humidified Oxygen 06/25/17 18:35 37.1 83 19 92 Nasal Cannula 4.0 06/25/17 16:00 87 Nasal Cannula 3.0 93 06/25/17 15:38 102 16 87 Nasal Cannula 3.0 06/25/17 14:39 37.7 93 18 117/67 (84) 93 06/25/17 11:29 37.0 85 20 129/62 (84) 94 Nasal Cannula 3.0 06/25/17 11:28 82 16 94 Nasal Cannula 3.0 06/25/17 09:00 Nasal Cannula 3.0 06/25/17 07:18 80 16 96 Nasal Cannula 3.0 06/25/17 07:07 36.9 66 22 138/75 (96) 97 Nasal Cannula 3.0 06/25/17 04:33 37.0 70 20 126/78 (94) 97 Nasal Cannula 3.0 06/25/17 01:29 36.9 68 20 113/69 (84) 95 Nasal Cannula 3.0 06/25/17 00:00 Nasal Cannula 3.0 Humidified Oxygen 06/24/17 20:46 37.5 89 20 122/56 (78) 90 Nasal Cannula 3.0 06/24/17 20:30 Nasal Cannula 3.0 06/24/17 19:16 75 16 94 Nasal Cannula 3.0 Physical Exam General Appearance: no apparent distress Eyes: EOMI ENT: hearing grossly normal Neck: trachea midline Respiratory/Chest: no respiratory distress, no accessory muscle use Extremities: normal range of motion, no pedal edema, no calf tenderness 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: 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 as tested, alert, normal mood/affect Skin: normal color Assessment and Plan Acute on chronic hypercapnic/ hypoxic respiratory failure secondary to COPD exacerbation in an individual with metastatic lung adenocarcinoma - Currently requiring baseline home O2 of 3L - Clinically appears around baseline - Prednisone slow taper - Duonebs as ordered - Procalcitonin negative - Influenza negative 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 and pathologic fracture - multimodal pain management - narcotics - fentanyl patch and CAD PROGRAMMER --> transition to PO prn today (dc CAD PROGRAMMER and use 10mg oxycodone q4hr prn breakthrough) - gabapentin - titrated up as tolerated (increased to 600/300/600) - splint/sling (orthotics consult appreciated) - XRT to lesions to continue - venlafaxine ER titrate up as tolerated (increased to 75mg 06/23 no nausea) - explaining expectations on healing of fracture etc anxiety -understandably related to current situation -venlafaxine titrate up as tolerated, ativan prn -appearing much better overall Chronic pancytopenia likely secondary to metastatic lung cancer - Continue folic acid 1mg daily - Hgb stable, follow periodically Hx of DVT and PE - Lovenox 40mg Daily prophylaxis Paroxysmal Atrial Fibrillation - No chronic anticoagulation secondary to comorbidities - Currently NSR, rates have been stable BPH - Finasteride 5 mg - Tamsulosin 0.4 mg - no sx hopefully home in ~24-48hrs w further progress
[2017-06-25] MEDS: TAMSULOSIN HCL 0.4 MG CAP PO SCH (20:23)
[2017-06-26] VITALS (10 sets, daily range): BP systolic 95–129; BP diastolic 52–71; PULSE 68–90; TEMP 36.5–36.9; O2SAT 90–99
[2017-06-26] MEDS: CHECK FENTANYL PATCH PLACEMENT SCH ×6 (01:34→16:54)
[2017-06-26] MEDS: LORAZEPAM 0.5 MG TAB PO PRN ×2 (03:03→23:23)
[2017-06-26] MEDS: OXYCODONE HCL IR 5 MG TAB (IMMEDIATE RELEASE) PO PRN ×4 (03:03→20:46)
[2017-06-26] MEDS: KETOROLAC TROMETHAMINE 15 MG/ML VIAL IV. PRN (03:37)
[2017-06-26 06:01] LABS: HEMATOCRIT 25.9 % (42-52); HEMOGLOBIN 8.5 g/dL (14.0-18.0); MEAN CELL VOLUME 103.2 fL (80-100); MEAN CORPUSCULAR HEMOGLOBIN 33.9 pg (25-34); MEAN CORPUSCULAR HGB CONC 32.8 g/dl (32-36); RED CELL DISTRIBUTION WIDTH SD 57.2 fL (36.4-46.3); WHITE BLOOD COUNT 6.52 K/uL (4.8-10.8)
[2017-06-26 06:05] LABS: MEAN PLATELET VOLUME 8.3 fL (7.4-10.4); PLATELET COUNT 88 K/uL (130-400)
[2017-06-26 06:44] LABS: CREATININE 0.41 mg/dl (0.60-1.40)
[2017-06-26] MEDS: ALBUT/IPRATROP 3MG/0.5MG NEB 3 ML VIAL INH SCH ×4 (07:12→18:51)
[2017-06-26] MEDS ORDERED: ERGOCALCIFEROL 50,000 INTER.UNIT CAP PO ONE (09:00)
[2017-06-26] MEDS: POLYETHYLENE (MIRALAX) 17 GM PACK PO SCH (09:10)
[2017-06-26] MEDS: GUAIFENESIN 600 MG TABCR PO SCH ×2 (09:10→20:38)
[2017-06-26] MEDS: LIDODERM (LIDOCAINE) PATCH 5% TD SCH (09:11)
[2017-06-26] MEDS: FINASTERIDE 5 MG TAB PO SCH (09:11)
[2017-06-26] MEDS: GABAPENTIN 600 MG TAB PO SCH (09:11)
[2017-06-26] MEDS: DOCUSATE SODIUM 100 MG CAP PO SCH ×2 (09:11→20:38)
[2017-06-26] MEDS: VENLAFAXINE HCL XR 75 MG CAPXR PO SCH (09:11)
[2017-06-26] MEDS: ENOXAPARIN 40 MG/0.4 ML SYR SQ SCH (09:12)
[2017-06-26] MEDS: BUDESONIDE/FORMOTEROL FUMARATE 160/4.5 60 PUFFS/INHALER INH SCH ×2 (09:13→20:38)
[2017-06-26] MEDS ORDERED: CALCITONIN SALMON NA 200 IU/AC 3.7 ML BTL ONE (09:56)
[2017-06-26] MEDS: GABAPENTIN 300 MG CAP PO SCH ×2 (14:13→20:39)
--- NOTE | 2017-06-26 19:24 | Progress Note ---
Subjective Date of Service: Jun 26, 2017. Subjective Pt evaluation today including: conversation w/ patient, physical exam, chart review, lab review, review of inpatient medication list pain better controlled but with limited ROM notes that he can't really push off things welll - worried about how he'll do at home otherwise pain better controlled not groggy still no abodminal pain no sob Problem List Medical Problems: (1) Acute bronchitis Status: Acute (2) Acute on chronic respiratory failure with hypoxia Status: Acute (3) Acute respiratory failure with hypoxia and hypercapnia Status: Acute (4) Acute respiratory failure with hypoxia and hypercarbia Status: Acute (5) Anemia Status: Acute (6) Bilateral pulmonary embolism Status: Acute (7) Bronchitis Status: Acute (8) CO2 narcosis Status: Acute (9) Dehydration Status: Acute (10) Dehydration Status: Acute (11) Dysuria Status: Acute (12) Generalized weakness Status: Acute (13) Hematuria Status: Acute (14) Hematuria Status: Acute (15) Hematuria Status: Acute (16) Hypotension Status: Acute (17) Hypotension Status: Acute (18) Hypoxia Status: Chronic (19) Hypoxia Status: Acute (20) Hypoxia Status: Acute (21) Hypoxia Status: Acute (22) Left rib fracture Status: Acute (23) Lung cancer Status: Acute (24) Mediastinal lymphadenopathy Status: Acute (25) Metastatic lung cancer (metastasis from lung to other site) Status: Acute (26) Metastatic lung cancer (metastasis from lung to other site) Status: Chronic (27) Neutropenia Status: Acute (28) Neutropenia Status: Acute (29) Non-traumatic compression fracture of T5 thoracic vertebra Status: Acute (30) Osteolytic 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 Status: Acute (31) Pathological fracture of rib of right side Status: Acute (32) Pulmonary nodules Status: Acute (33) Right shoulder pain Status: Acute (34) SVT (supraventricular tachycardia) Status: Acute (35) Thrombocytopenia Status: Acute (36) Weakness Status: Acute Review of Systems all other ROS otherwise negative except for as above Objective Vital Signs Date Time Temp Pulse Resp B/P (MAP) Pulse Ox O2 Delivery O2 Flow Rate FiO2 06/26/17 18:56 36.9 88 22 116/61 (79) 99 Nasal Cannula 3.5 06/26/17 18:51 77 18 95 Nasal Cannula 4.0 06/26/17 15:57 36.5 90 0 118/65 (82) 91 Nasal Cannula 4.0 06/26/17 15:33 75 18 94 Nasal Cannula 4.0 06/26/17 15:13 Nasal Cannula 4.0 Humidified Oxygen 06/26/17 12:16 36.7 88 18 95/52 (66) 92 Nasal Cannula 4.0 06/26/17 11:33 68 16 96 Nasal Cannula 4.0 06/26/17 10:30 Nasal Cannula 3.0 Humidified Oxygen 06/26/17 10:02 36.9 87 18 115/61 (79) 93 Nasal Cannula 4.0 06/26/17 08:01 Nasal Cannula 4.0 06/26/17 07:14 78 16 90 Nasal Cannula 4.0 06/26/17 04:09 36.7 70 20 124/71 (88) 99 Nasal Cannula 3.0 06/26/17 00:15 Nasal Cannula 3.0 Humidified Oxygen 06/26/17 00:05 36.6 74 20 129/67 (87) 97 Nasal Cannula 3.0 06/25/17 20:13 89 16 91 Nasal Cannula 3.0 Physical Exam General Appearance: no apparent distress Eyes: EOMI ENT: hearing grossly normal Neck: trachea midline Respiratory/Chest: no respiratory distress, no accessory muscle use Extremities: normal range of motion (R arm still limited but abotu the same as prior and no significant pain on movement) 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: receiver II-XII nml as tested, alert, normal mood/affect Skin: normal color, warm/dry Laboratory Results Last 24 Hours Test 06/26/17 05:45 White Blood Count 6.52 K/uL Red Blood Count 2.51 M/uL Hemoglobin 8.5 g/dL Hematocrit 25.9 % Mean Corpuscular Volume 103.2 fL Mean Corpuscular Hemoglobin 33.9 pg Mean Corpuscular Hemoglobin Concent 32.8 g/dl RDW Standard Deviation 57.2 fL RDW Coefficient of Variation 15.0 % Platelet Count 88 K/uL Mean Platelet Volume 8.3 fL Creatinine 0.41 mg/dl Est Creatinine Clear Calc Drug Dose 182.3 ml/min Estimated GFR () 141.0 Estimated GFR (Non- 121.7 25-Hydroxy Vitamin D Total 8.7 ng/ml Assessment and Plan Acute on chronic hypercapnic/ hypoxic respiratory failure secondary to COPD exacerbation in an individual with metastatic lung adenocarcinoma - Currently requiring baseline home O2 of 3L - Clinically appears around baseline - Prednisone slow taper - Duonebs as ordered - Procalcitonin negative - Influenza negative 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 and pathologic fracture - multimodal pain management is working well / expectations on improvement in ROM w pathologic fracture reiterated - replace vitamin D, calcium, micalcin nasal spray - narcotics - fentanyl patch and ADMIN PROG COORD --> transition to PO prn today (dc ADMIN PROG COORD and use 10mg oxycodone q4hr prn breakthrough) - gabapentin - titrated up as tolerated (increased to 600/300/600) - splint/sling (orthotics consult appreciated) - XRT to lesions to continue - venlafaxine ER titrate up as tolerated (increased to 75mg 06/23 no nausea) - explaining expectations on healing of fracture etc, will ask PT/OT to re-eval and assist w guidance on ADL/movement/etc vitamin D deficiency - replace aggressively anxiety -understandably related to current situation -venlafaxine titrated up, doing well, ativan prn -appearing much better overall Chronic pancytopenia likely secondary to metastatic lung cancer - Continue folic acid 1mg daily - Hgb stable, follow periodically Hx of DVT and PE - Lovenox 40mg Daily prophylaxis Paroxysmal Atrial Fibrillation - No chronic anticoagulation secondary to comorbidities - Currently NSR, rates controlled BPH - Finasteride 5 mg - Tamsulosin 0.4 mg - no problems home once able to do ADLs
[2017-06-26] MEDS: CALCIUM CARBONATE 500 MG CHEWABLE PO SCH (20:40)
[2017-06-26] MEDS: TAMSULOSIN HCL 0.4 MG CAP PO SCH (20:40)
[2017-06-27] MEDS: CHECK FENTANYL PATCH PLACEMENT SCH ×6 (00:17→15:54)
[2017-06-27] MEDS: OXYCODONE HCL IR 5 MG TAB (IMMEDIATE RELEASE) PO PRN ×4 (00:18→16:58)
[2017-06-27 00:19] VITALS: BP 137/65; PULSE 101; TEMP 36.7; O2SAT 92
[2017-06-27] MEDS: ALBUT/IPRATROP 3MG/0.5MG NEB 3 ML VIAL INH SCH ×2 (07:44→11:34)
[2017-06-27 07:45] VITALS: PULSE 68; O2SAT 96
[2017-06-27] MEDS: VENLAFAXINE HCL XR 75 MG CAPXR PO SCH (08:30)
[2017-06-27] MEDS: FINASTERIDE 5 MG TAB PO SCH (08:30)
[2017-06-27] MEDS: GABAPENTIN 600 MG TAB PO SCH (08:30)
[2017-06-27] MEDS: CHOLECALCIFEROL 1000 INTER.UNIT TAB PO SCH (08:31)
[2017-06-27] MEDS: DOCUSATE SODIUM 100 MG CAP PO SCH ×2 (08:31→20:08)
[2017-06-27] MEDS: GUAIFENESIN 600 MG TABCR PO SCH ×2 (08:31→20:10)
[2017-06-27] MEDS: CALCITONIN SALMON NA 200 IU/AC 3.7 ML BTL SCH (08:32)
[2017-06-27] MEDS: BUDESONIDE/FORMOTEROL FUMARATE 160/4.5 60 PUFFS/INHALER INH SCH ×2 (08:32→20:08)
[2017-06-27] MEDS: POLYETHYLENE (MIRALAX) 17 GM PACK PO SCH (08:32)
[2017-06-27] MEDS: CALCIUM CARBONATE 500 MG CHEWABLE PO SCH ×2 (08:46→20:11)
[2017-06-27] MEDS: ENOXAPARIN 40 MG/0.4 ML SYR SQ SCH (08:47)
[2017-06-27] MEDS: LIDODERM (LIDOCAINE) PATCH 5% TD SCH (08:49)
[2017-06-27] MEDS: GABAPENTIN 300 MG CAP PO SCH ×2 (14:24→20:11)
[2017-06-27 14:42] VITALS: BP 125/69; PULSE 83; TEMP 37.5; O2SAT 91
[2017-06-27 17:17] VITALS: O2SAT 91
[2017-06-27] MEDS: FENTANYL PATCH REMOVE & WASTE SCH ×2 (18:34→18:35)
[2017-06-27] MEDS: FENTANYL 100 MCG/HR TDSY TD SCH (18:35)
[2017-06-27 18:55] VITALS: PULSE 68; O2SAT 89
[2017-06-27 19:11] VITALS: BP 139/70; PULSE 85; TEMP 37.2; O2SAT 95
--- NOTE | 2017-06-27 19:49 | Progress Note ---
Subjective Date of Service: Jun 27, 2017. Subjective Pt evaluation today including: conversation w/ patient, conversation w/ family , physical exam, chart review, lab review, review of inpatient medication list more sleepy today - still wakes up and tlaks but definitely groggier shoulder pain seems improved Problem List Medical Problems: (1) Acute bronchitis Status: Acute (2) Acute on chronic respiratory failure with hypoxia Status: Acute (3) Acute respiratory failure with hypoxia and hypercapnia Status: Acute (4) Acute respiratory failure with hypoxia and hypercarbia Status: Acute (5) Anemia Status: Acute (6) Bilateral pulmonary embolism Status: Acute (7) Bronchitis Status: Acute (8) CO2 narcosis Status: Acute (9) Dehydration Status: Acute (10) Dehydration Status: Acute (11) Dysuria Status: Acute (12) Generalized weakness Status: Acute (13) Hematuria Status: Acute (14) Hematuria Status: Acute (15) Hematuria Status: Acute (16) Hypotension Status: Acute (17) Hypotension Status: Acute (18) Hypoxia Status: Chronic (19) Hypoxia Status: Acute (20) Hypoxia Status: Acute (21) Hypoxia Status: Acute (22) Left rib fracture Status: Acute (23) Lung cancer Status: Acute (24) Mediastinal lymphadenopathy Status: Acute (25) Metastatic lung cancer (metastasis from lung to other site) Status: Acute (26) Metastatic lung cancer (metastasis from lung to other site) Status: Chronic (27) Neutropenia Status: Acute (28) Neutropenia Status: Acute (29) Non-traumatic compression fracture of T5 thoracic vertebra Status: Acute (30) Osteolytic 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 Status: Acute (31) Pathological fracture of rib of right side Status: Acute (32) Pulmonary nodules Status: Acute (33) Right shoulder pain Status: Acute (34) SVT (supraventricular tachycardia) Status: Acute (35) Thrombocytopenia Status: Acute (36) Weakness Status: Acute Review of Systems all other ROS otherwise negative except for as above Objective Vital Signs Date Time Temp Pulse Resp B/P (MAP) Pulse Ox O2 Delivery O2 Flow Rate FiO2 06/27/17 19:11 37.2 85 19 139/70 (93) 95 Nasal Cannula 4.0 Humidified Oxygen 06/27/17 18:55 68 18 89 Nasal Cannula 3.0 06/27/17 17:17 91 Nasal Cannula 3.0 06/27/17 14:42 37.5 83 16 125/69 (87) 91 Nasal Cannula 3.0 06/27/17 08:30 Nasal Cannula 3.0 Humidified Oxygen 06/27/17 07:45 68 18 96 Nasal Cannula 4.0 06/27/17 00:43 Nasal Cannula 4.0 Humidified Oxygen 06/27/17 00:19 36.7 101 20 137/65 (89) 92 4.0 Physical Exam General Appearance: no apparent distress (sleepy) Eyes: EOMI ENT: hearing grossly normal Neck: trachea midline Respiratory/Chest: no respiratory distress, no accessory muscle use Extremities: normal range of motion 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, alert (but groggy), normal mood/affect Skin: normal color, warm/dry Laboratory Results Last 24 Hours Test 06/27/17 16:08 Venous Blood pH 7.29 Venous Blood Partial Pressure CO2 99 mmHg Venous Blood Partial Pressure O2 43 mmHg Venous Blood HCO3 46 mmol/L Venous Blood Oxygen Saturation 69.9 % Venous Blood Base Excess 15.7 mEq/L Assessment and Plan Acute on chronic hypercapnic/ hypoxic respiratory failure secondary to COPD exacerbation in an individual with metastatic lung adenocarcinoma - Currently requiring baseline home O2 of 3L - suspect today's grogginess relates to this - probably secondary to necessary pain meds due to severity of pain - but did show worsening agian. much more mentally intact than would be expected given his compensation to chronic respiratory failure - bipap again, have to reduce pain meds. (d/w nursing several times through the day - he was groggier than last few days but still appropriate/conversive, no respiratory distress) - Prednisone slow taper - Duonebs as ordered - Procalcitonin negative - Influenza negative 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 and pathologic fracture - multimodal pain management is working well / expectations on improvement in ROM w pathologic fracture reiterated - replace vitamin D, calcium, micalcin nasal spray - narcotics - fentanyl patch (reduce to 100 since above) and oxycodone (reduce to 7.5 due to above) - gabapentin - change down to 600 BID given above - splint/sling (orthotics consult appreciated) - XRT to lesions to continue - venlafaxine ER titrate up as tolerated (increased to 75mg 06/23 no nausea) - explaining expectations on healing of fracture etc, d/w who expresses better understanding vitamin D deficiency - replace aggressively ongoing anxiety -understandably related to current situation -venlafaxine titrated up, doing well, ativan prn (will hold for now) Chronic pancytopenia likely secondary to metastatic lung cancer - Continue folic acid 1mg daily - Hgb stable, follow periodically Hx of DVT and PE - Lovenox 40mg Daily prophylaxis Paroxysmal Atrial Fibrillation - No chronic anticoagulation secondary to comorbidities - Currently NSR, rates controlled BPH - Finasteride 5 mg - Tamsulosin 0.4 mg - no problems home once able to do ADLs oncology incidentally saw - recommended hospice
[2017-06-27] MEDS: TAMSULOSIN HCL 0.4 MG CAP PO SCH (20:10)
[2017-06-27] MEDS ORDERED: NURSING VERBAL MED ORDER ONE (21:15)
[2017-06-27] MEDS: LORAZEPAM 0.5 MG TAB PO PRN (22:04)
[2017-06-28] VITALS (13 sets, daily range): BP systolic 105–178; BP diastolic 56–87; PULSE 63–93; TEMP 36.6–37.7; O2SAT 90–97
[2017-06-28] MEDS: CHECK FENTANYL PATCH PLACEMENT SCH ×3 (00:19→15:33)
[2017-06-28] MEDS: OXYCODONE HCL IR 5 MG TAB (IMMEDIATE RELEASE) PO PRN ×3 (03:12→20:31)
[2017-06-28] MEDS: ALBUT/IPRATROP 3MG/0.5MG NEB 3 ML VIAL INH SCH ×4 (07:13→19:52)
[2017-06-28] MEDS: BUDESONIDE/FORMOTEROL FUMARATE 160/4.5 60 PUFFS/INHALER INH SCH ×2 (09:12→20:24)
[2017-06-28] MEDS: DOCUSATE SODIUM 100 MG CAP PO SCH ×2 (09:13→20:25)
[2017-06-28] MEDS: CALCITONIN SALMON NA 200 IU/AC 3.7 ML BTL SCH (09:13)
[2017-06-28] MEDS: FINASTERIDE 5 MG TAB PO SCH (09:14)
[2017-06-28] MEDS: VENLAFAXINE HCL XR 75 MG CAPXR PO SCH (09:14)
[2017-06-28] MEDS: CALCIUM CARBONATE 500 MG CHEWABLE PO SCH ×2 (09:14→20:24)
[2017-06-28] MEDS: CHOLECALCIFEROL 1000 INTER.UNIT TAB PO SCH (09:17)
[2017-06-28] MEDS: POLYETHYLENE (MIRALAX) 17 GM PACK PO SCH (09:17)
[2017-06-28] MEDS: LIDODERM (LIDOCAINE) PATCH 5% TD SCH (09:18)
[2017-06-28] MEDS: ENOXAPARIN 40 MG/0.4 ML SYR SQ SCH (09:19)
[2017-06-28] MEDS: GUAIFENESIN 600 MG TABCR PO SCH ×2 (09:19→20:27)
[2017-06-28] MEDS: GABAPENTIN 600 MG TAB PO SCH (09:24)
[2017-06-28] MEDS: ACETAMINOPHEN 325 MG TAB PO PRN (11:37)
--- NOTE | 2017-06-28 18:30 | Progress Note ---
Subjective Date of Service: Jun 28, 2017. Subjective Pt evaluation today including: conversation w/ patient, physical exam, chart review, review of inpatient medication list less groggy but a little more pain slept pretty well overall remembers all of yesterday with good mental acuity understands juan antonio recommends hospice "he talks a lot of doom and gloom" and would like to talk to dr william before making any clear decisions Problem List Medical Problems: (1) Acute bronchitis Status: Acute (2) Acute on chronic respiratory failure with hypoxia Status: Acute (3) Acute respiratory failure with hypoxia and hypercapnia Status: Acute (4) Acute respiratory failure with hypoxia and hypercarbia Status: Acute (5) Anemia Status: Acute (6) Bilateral pulmonary embolism Status: Acute (7) Bronchitis Status: Acute (8) CO2 narcosis Status: Acute (9) Dehydration Status: Acute (10) Dehydration Status: Acute (11) Dysuria Status: Acute (12) Generalized weakness Status: Acute (13) Hematuria Status: Acute (14) Hematuria Status: Acute (15) Hematuria Status: Acute (16) Hypotension Status: Acute (17) Hypotension Status: Acute (18) Hypoxia Status: Chronic (19) Hypoxia Status: Acute (20) Hypoxia Status: Acute (21) Hypoxia Status: Acute (22) Left rib fracture Status: Acute (23) Lung cancer Status: Acute (24) Mediastinal lymphadenopathy Status: Acute (25) Metastatic lung cancer (metastasis from lung to other site) Status: Acute (26) Metastatic lung cancer (metastasis from lung to other site) Status: Chronic (27) Neutropenia Status: Acute (28) Neutropenia Status: Acute (29) Non-traumatic compression fracture of T5 thoracic vertebra Status: Acute (30) Osteolytic 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 Status: Acute (31) Pathological fracture of rib of right side Status: Acute (32) Pulmonary nodules Status: Acute (33) Right shoulder pain Status: Acute (34) SVT (supraventricular tachycardia) Status: Acute (35) Thrombocytopenia Status: Acute (36) Weakness Status: Acute Review of Systems all other ROS otherwise negative except for as above Objective Vital Signs Date Time Temp Pulse Resp B/P (MAP) Pulse Ox O2 Delivery O2 Flow Rate FiO2 06/28/17 16:25 37.2 93 20 115/74 (88) 92 BiPAP 5.0 06/28/17 16:10 Humidified Oxygen 5.0 06/28/17 15:22 72 18 93 Nasal Cannula 5.0 06/28/17 13:32 63 93 40 06/28/17 11:25 78 18 94 Nasal Cannula 4.0 06/28/17 11:24 37.7 78 18 117/70 (86) 94 Nasal Cannula 4.0 Humidified Oxygen 06/28/17 10:11 Nasal Cannula 4.0 06/28/17 07:23 36.7 88 19 178/64 (102) 94 Nasal Cannula 4.0 06/28/17 07:16 69 18 95 Nasal Cannula 4.0 06/28/17 05:00 37.3 78 17 105/65 (78) 96 Nasal Cannula 4.0 06/28/17 00:23 Nasal Cannula 4.0 06/28/17 00:08 36.6 73 19 119/64 (82) 90 Nasal Cannula 4.0 06/27/17 19:11 37.2 85 19 139/70 (93) 95 Nasal Cannula 4.0 Humidified Oxygen 06/27/17 18:55 68 18 89 Nasal Cannula 3.0 Physical Exam General Appearance: no apparent distress Eyes: EOMI ENT: hearing grossly normal Neck: trachea midline Respiratory/Chest: no respiratory distress, no accessory muscle use 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: 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 as tested, alert, normal mood/affect Skin: normal color, warm/dry Laboratory Results Last 24 Hours Test 06/27/17 22:03 Venous Blood pH 7.29 Venous Blood Partial Pressure CO2 96 mmHg Venous Blood Partial Pressure O2 47 mmHg Venous Blood HCO3 45 mmol/L Venous Blood Oxygen Saturation 76.8 % Venous Blood Base Excess 15.0 mEq/L Assessment and Plan Acute on chronic hypercapnic/ hypoxic respiratory failure secondary to COPD exacerbation in an individual with metastatic lung adenocarcinoma - Currently requiring baseline home O2 of 3L - pain situation creating a delicate balance between not allowing suffering and not suppressing respirations. bipap helping balance this - may need for home - will ask dr william specifically to talk w pt if this is at all possible in regards to hospice - Prednisone slow taper - Duonebs as ordered - Procalcitonin negative - Influenza negative 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 and pathologic fracture - multimodal pain management is working well / expectations on improvement in ROM w pathologic fracture reiterated - replace vitamin D, calcium, micalcin nasal spray - narcotics - fentanyl patch (reduced to 100 since above) and oxycodone (reduce to 7.5 due to above) - gabapentin - changed down to 600 BID given above - splint/sling (orthotics consult appreciated) - XRT to lesions to continue - venlafaxine ER titrate up as tolerated (increased to 75mg 06/23 no nausea) - explaining expectations on healing of fracture etc, d/w who expresses better understanding - balance between pain and breathing as above vitamin D deficiency - replace ongoing anxiety -understandably related to current situation -venlafaxine titrated up, caution w ativan and breathing, use only when absolutely necessary given his overall situation Chronic pancytopenia likely secondary to metastatic lung cancer - Continue folic acid 1mg daily - Hgb stable, follow periodically Hx of DVT and PE - Lovenox 40mg Daily prophylaxis Paroxysmal Atrial Fibrillation - No chronic anticoagulation secondary to comorbidities - Currently NSR, rates controlled BPH - Finasteride 5 mg - Tamsulosin 0.4 mg - no problems home once able to do ADLs
[2017-06-28] MEDS: GABAPENTIN 300 MG CAP PO SCH (20:26)
[2017-06-28] MEDS: TAMSULOSIN HCL 0.4 MG CAP PO SCH (20:27)
[2017-06-29] VITALS (10 sets, daily range): BP systolic 116–130; BP diastolic 53–68; PULSE 62–94; TEMP 36.7–37.2; O2SAT 92–94
[2017-06-29] MEDS: CHECK FENTANYL PATCH PLACEMENT SCH ×4 (00:04→20:15)
[2017-06-29] MEDS: LORAZEPAM 0.5 MG TAB PO PRN (00:55)
[2017-06-29] MEDS: OXYCODONE HCL IR 5 MG TAB (IMMEDIATE RELEASE) PO PRN ×2 (04:14→19:12)
[2017-06-29] MEDS: ALBUT/IPRATROP 3MG/0.5MG NEB 3 ML VIAL INH SCH ×4 (07:08→19:18)
[2017-06-29] MEDS: CALCITONIN SALMON NA 200 IU/AC 3.7 ML BTL SCH (07:42)
[2017-06-29] MEDS: BUDESONIDE/FORMOTEROL FUMARATE 160/4.5 60 PUFFS/INHALER INH SCH ×2 (07:42→20:10)
[2017-06-29] MEDS: DOCUSATE SODIUM 100 MG CAP PO SCH ×2 (07:42→20:11)
[2017-06-29] MEDS: CHOLECALCIFEROL 1000 INTER.UNIT TAB PO SCH (07:43)
[2017-06-29] MEDS: FINASTERIDE 5 MG TAB PO SCH (07:44)
[2017-06-29] MEDS: GABAPENTIN 600 MG TAB PO SCH (07:44)
[2017-06-29] MEDS: CALCIUM CARBONATE 500 MG CHEWABLE PO SCH ×2 (07:45→20:11)
[2017-06-29] MEDS: LIDODERM (LIDOCAINE) PATCH 5% TD SCH (07:47)
[2017-06-29] MEDS: POLYETHYLENE (MIRALAX) 17 GM PACK PO SCH (07:48)
[2017-06-29] MEDS: GUAIFENESIN 600 MG TABCR PO SCH ×2 (07:48→20:14)
[2017-06-29] MEDS: VENLAFAXINE HCL XR 75 MG CAPXR PO SCH (07:48)
[2017-06-29] MEDS: ENOXAPARIN 40 MG/0.4 ML SYR SQ SCH (07:49)
--- NOTE | 2017-06-29 17:54 | Progress Note ---
Subjective Date of Service: Jun 29, 2017. Subjective Pt evaluation today including: conversation w/ patient, conversation w/ family , physical exam, chart review, lab review, review of studies, review of inpatient medication list brother present - extensive dsicussion with patient's permission, answered all questions and updated to the best of my ability pt with more pain today. notes that he's less groggy but hurting more would like to talk w dr william before deciding on hospice brother with many very insightful questions in regards to breathing ("will he progress to needing bipap all the time?") and with disposition ("if he can't get to where he's safe to be at home would we need to look at a home?") pt fairly quiet for most of discussion with brother but seemed to be getting good insights as well Problem List Medical Problems: (1) Acute bronchitis Status: Acute (2) Acute on chronic respiratory failure with hypoxia Status: Acute (3) Acute respiratory failure with hypoxia and hypercapnia Status: Acute (4) Acute respiratory failure with hypoxia and hypercarbia Status: Acute (5) Anemia Status: Acute (6) Bilateral pulmonary embolism Status: Acute (7) Bronchitis Status: Acute (8) CO2 narcosis Status: Acute (9) Dehydration Status: Acute (10) Dehydration Status: Acute (11) Dysuria Status: Acute (12) Generalized weakness Status: Acute (13) Hematuria Status: Acute (14) Hematuria Status: Acute (15) Hematuria Status: Acute (16) Hypotension Status: Acute (17) Hypotension Status: Acute (18) Hypoxia Status: Chronic (19) Hypoxia Status: Acute (20) Hypoxia Status: Acute (21) Hypoxia Status: Acute (22) Left rib fracture Status: Acute (23) Lung cancer Status: Acute (24) Mediastinal lymphadenopathy Status: Acute (25) Metastatic lung cancer (metastasis from lung to other site) Status: Acute (26) Metastatic lung cancer (metastasis from lung to other site) Status: Chronic (27) Neutropenia Status: Acute (28) Neutropenia Status: Acute (29) Non-traumatic compression fracture of T5 thoracic vertebra Status: Acute (30) Osteolytic 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 Status: Acute (31) Pathological fracture of rib of right side Status: Acute (32) Pulmonary nodules Status: Acute (33) Right shoulder pain Status: Acute (34) SVT (supraventricular tachycardia) Status: Acute (35) Thrombocytopenia Status: Acute (36) Weakness Status: Acute Review of Systems all other ROS otherwise negative except for as above Objective Vital Signs Date Time Temp Pulse Resp B/P (MAP) Pulse Ox O2 Delivery O2 Flow Rate FiO2 06/29/17 16:00 Nasal Cannula 5.0 06/29/17 15:37 36.7 72 19 116/68 (84) 93 Nasal Cannula 5.0 Humidified Oxygen 06/29/17 11:20 37.1 62 19 130/64 (86) 92 Nasal Cannula 5.0 Humidified Oxygen 06/29/17 11:08 90 18 92 Nasal Cannula 5.0 06/29/17 08:17 37.2 94 19 123/62 (82) 93 Nasal Cannula 5.0 Humidified Oxygen 06/29/17 08:00 Nasal Cannula 5.0 Humidified Oxygen 06/29/17 07:11 69 18 93 Nasal Cannula 5.0 06/29/17 04:45 37.2 91 18 119/68 (85) 93 Nasal Cannula 5.0 06/29/17 00:00 Nasal Cannula 5.0 Humidified Oxygen 06/28/17 23:57 36.8 76 18 132/56 (81) 95 Nasal Cannula 5.0 06/28/17 19:53 70 18 95 Nasal Cannula 5.0 06/28/17 19:25 37.0 65 20 112/57 (75) 95 Nasal Cannula 5.0 Physical Exam General Appearance: no apparent distress (but when moving does appear in pain again) Eyes: EOMI ENT: hearing grossly normal Neck: trachea midline Respiratory/Chest: no respiratory distress, no accessory muscle use Extremities: + pertinent finding (limited ROM R arm same as before cant' quite get to 90 degrees, but appearing more uncomfortable again with mvoement) 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 bipap helping balance this - has been set up for this from home but [facility] (therefore if he is able to get home should just need [facility]) - was much more sedated and hypercapnic a few days ago, reduction in meds has helped breathing improve, but of course unfortunately pain is now somewhat worse - will have to reach out to dr william to see if it's at all possible for him to have a discussion with patient in regards to appropriateness for hospice (if not possible in hospital, then at least expedited as outpt if he progresses to where discharge is feasible) - Prednisone slow taper - Duonebs as ordered - Procalcitonin negative - Influenza negative 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 and pathologic fracture - multimodal pain management is working well / expectations on improvement in ROM w pathologic fracture reiterated and outlined to brother including reviewing xrays - replacing vitamin D, calcium, micalcin nasal spray - narcotics - fentanyl patch (reduced to 100 with improvement in breathing but slight worsening of pain) and oxycodone (will increase this again to 10mg for breakthrough since pain worse, but shorter acting med shoudl have less long lasting effect on respiratory drive) - gabapentin - changed down to 600 BID given his worsening respiratory status - splint/sling (orthotics consult appreciated) - XRT to lesions to continue - venlafaxine ER titrate up as tolerated (increased to 75mg 06/23 no nausea) - explaining expectations on healing of fracture etc, d/w girlfriend previously , brother today - who both seem to have better understanding of realistic expectations wtih this problem than patient is able to accept - balance between pain and breathing as above vitamin D deficiency - replace aggressively in hopes of some early benefit with bone healing anxiety -understandably related to current situation -venlafaxine titrated up, caution w ativan due to breathing, use only when absolutely necessary given his overall situation - but he's noticed times where it is really helping Chronic pancytopenia likely secondary to metastatic lung cancer - Continue folic acid 1mg daily - Hgb stable, follow periodically Hx of DVT and PE - Lovenox 40mg Daily prophylaxis Paroxysmal Atrial Fibrillation - No chronic anticoagulation secondary to comorbidities - Currently NSR, rates controlled BPH - Finasteride 5 mg - Tamsulosin 0.4 mg - no problems dispo difficult due to all of above; ideally home (but would definitely need trilogy delivered, and would have to be accepting of difficult balance with breathign and pain, and would have to be able to live somewhat independently since he would be home alone ~40hrs / week) >30mins face to face >50% counselling/educating/discussing
[2017-06-29] MEDS: TAMSULOSIN HCL 0.4 MG CAP PO SCH (20:13)
[2017-06-29] MEDS: GABAPENTIN 300 MG CAP PO SCH (20:13)
[2017-06-30] VITALS (12 sets, daily range): BP systolic 105–146; BP diastolic 58–80; PULSE 56–100; TEMP 36.6–37.7; O2SAT 89–100
[2017-06-30] MEDS: ACETAMINOPHEN 325 MG TAB PO PRN ×2 (04:55→23:13)
[2017-06-30] MEDS: ALBUT/IPRATROP 3MG/0.5MG NEB 3 ML VIAL INH SCH ×4 (07:17→19:08)
[2017-06-30] MEDS: VENLAFAXINE HCL XR 75 MG CAPXR PO SCH (08:13)
[2017-06-30] MEDS: CHOLECALCIFEROL 1000 INTER.UNIT TAB PO SCH (08:14)
[2017-06-30] MEDS: GABAPENTIN 600 MG TAB PO SCH (08:14)
[2017-06-30] MEDS: GUAIFENESIN 600 MG TABCR PO SCH ×2 (08:14→20:18)
[2017-06-30] MEDS: FINASTERIDE 5 MG TAB PO SCH (08:15)
[2017-06-30] MEDS: BUDESONIDE/FORMOTEROL FUMARATE 160/4.5 60 PUFFS/INHALER INH SCH ×2 (08:15→20:14)
[2017-06-30] MEDS: CALCITONIN SALMON NA 200 IU/AC 3.7 ML BTL SCH (08:15)
[2017-06-30] MEDS: CALCIUM CARBONATE 500 MG CHEWABLE PO SCH ×2 (08:16→20:17)
[2017-06-30] MEDS: CHECK FENTANYL PATCH PLACEMENT SCH ×3 (08:16→23:13)
[2017-06-30] MEDS: DOCUSATE SODIUM 100 MG CAP PO SCH ×2 (08:16→20:16)
[2017-06-30] MEDS: POLYETHYLENE (MIRALAX) 17 GM PACK PO SCH (08:17)
[2017-06-30] MEDS: ENOXAPARIN 40 MG/0.4 ML SYR SQ SCH (08:17)
[2017-06-30] MEDS: LIDODERM (LIDOCAINE) PATCH 5% TD SCH (08:19)
--- NOTE | 2017-06-30 11:41 | Hospitalist Progress Note ---
Hospitalist Progress Note Date of Service Jun 30, 2017. (Smitha Mcnamara PA-C) Subjective Pt evaluation today including: conversation w/ patient, conversation w/ family (), physical exam, chart review, lab review, review of studies Pain: R shoulder PO Intake: Good Voiding: no voiding problems The patient was seen and examined this morning. Pt reports doing " about the same as yesterday". His is present at bedside and reports that he seems a lot better today compared to yesterday. He is using his right hand to eat lunch today, and she reports not seeing him do that for quite some time due to increased pain. He had radiation therapy earlier today as well. He has some fatigue but plans to work with PT/OT later this afternoon. Yesterday he was ambulating to the bathroom without much difficulty per the . He reports not other complaints at this time. All their questions and concerns were addressed. Constitutional: + fatigue, No fever, No chills, No sweats Eyes: No redness, No diplopia ENT: No nasal symptoms, No sore throat, No trouble swallowing Respiratory: + problem reported (wears 4 L typically, currently on 5L), No cough, No sputum, No wheezing Cardiovascular: No chest pain, No edema Abdomen: No pain, No nausea, No vomiting, No diarrhea, No constipation Musculoskeletal: + joint pain (R shoulder rated 3/10), No swelling Male : No dysuria Neurologic: + weakness (generalized but improving), No numbness/tingling ( Smitha Mcnamara, LINOC) Objective Vital Signs Date Time Temp Pulse Resp B/P (MAP) Pulse Ox O2 Delivery O2 Flow Rate FiO2 06/30/17 11:18 92 18 90 Nasal Cannula 5.0 06/30/17 11:12 36.7 83 20 146/74 (98) 93 Nasal Cannula 5.0 06/30/17 08:00 Nasal Cannula 5.0 06/30/17 07:37 36.9 100 20 120/70 (87) 96 5.0 06/30/17 07:20 74 18 95 Nasal Cannula 5.0 06/30/17 04:58 37.7 78 18 105/58 (74) 89 Nasal Cannula 5.0 06/30/17 00:00 94 Nasal Cannula 5.0 40 2/25/18 22:13 37.2 72 18 119/53 (75) 92 Nasal Cannula 5.0 06/29/17 20:00 94 Nasal Cannula 5.0 40 06/29/17 19:25 37.0 75 18 127/66 (86) 94 Nasal Cannula 5.0 06/29/17 19:18 79 18 93 Nasal Cannula 5.0 06/29/17 16:00 Nasal Cannula 5.0 06/29/17 15:37 36.7 72 19 116/68 (84) 93 Nasal Cannula 5.0 Humidified Oxygen (Smitha Mcnamara, MAKSIM) Physical Exam General Appearance: WD/WN, no apparent distress Eyes: PERRL, EOMI ENT: hearing grossly normal, pharynx normal Neck: no JVD Respiratory/Chest: no respiratory distress, no accessory muscle use, + pertinent finding (on 5L via NC, coarse breath sounds but dry, no wheeze rhonchi or rales.) Cardiovascular: regular rate, rhythm, no murmur Abdomen: normal bowel sounds, non tender Extremities: non-tender, no pedal edema, no calf tenderness 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: alert, normal mood/affect, oriented x 3 (Smitha Mcnamara, DANETTE-C) Assessment and Plan Acute on chronic hypercapnic/ hypoxic respiratory failure secondary to COPD exacerbation in an individual with metastatic lung adenocarcinoma - Currently requiring baseline home O2 of 3L - pain situation creating a delicate balance pain control and slow respirations. bipap helping balance this initially - overnight needed to wear CPAP. - [facility] initially set up but [facility] (therefore if he is able to get home should just need to [facility]) - was much more sedated and hypercapnic a few days ago, reduction in meds has helped breathing improve, pain control seems better at this point. - Would be beneficial for Dr Pulido to have a discussion with patient in regards to appropriateness for hospice (if not possible in hospital, then at least expedited as outpt if he progresses to where discharge is feasible) - Prednisone slow taper - 10 mg QAm now on for the 6th day. Finish tomorrow. 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 - gabapentin - decreased to 600 BID - splint/sling (orthotics consult appreciated) - XRT to lesions to continue - venlafaxine ER titrate up as tolerated (increased to 75mg 06/23 no nausea) vitamin D deficiency - replace aggressively in hopes of some early benefit with bone healing as above Anxiety - Situational anxiety, appears resolved currently. - venlafaxine titrated up, caution w ativan due to breathing, use only when absolutely necessary given his overall situation - but he's noticed times where it is really helping Chronic pancytopenia likely secondary to metastatic lung cancer - Continue folic acid 1mg daily - Hgb stable, follow periodically Hx of DVT and PE - Lovenox 40mg Daily prophylaxis Paroxysmal Atrial Fibrillation - No chronic anticoagulation secondary to comorbidities - Currently NSR, rates controlled BPH - Finasteride 5 mg - Tamsulosin 0.4 mg - no problems Dispo: difficult due to all of above; ideally home (but would definitely need trilogy delivered, and would have to be accepting of difficult balance with breathing and pain, and would have to be able to live somewhat independently since he would be home alone ~40hrs / week) Await PT/OT recs, CM assisting with discharge (Smitha Mcnamara PA-C) Supervising Note Dr. Cerrato I performed a history and physical examination on the patient. I reviewed above note and agree with it. I discussed plan with APC and patient. During my face to face encounter with the patient, I answered all of the patient's questions. (Uri Cerrato M.D.)
[2017-06-30] MEDS: FENTANYL PATCH REMOVE & WASTE SCH (18:19)
[2017-06-30] MEDS: FENTANYL 100 MCG/HR TDSY TD SCH (18:22)
[2017-06-30] MEDS: GABAPENTIN 300 MG CAP PO SCH (20:17)
[2017-06-30] MEDS: TAMSULOSIN HCL 0.4 MG CAP PO SCH (20:18)
[2017-06-30] MEDS: OXYCODONE HCL IR 5 MG TAB (IMMEDIATE RELEASE) PO PRN (20:21)
[2017-07-01] VITALS (10 sets, daily range): BP systolic 116–146; BP diastolic 54–74; PULSE 84–108; TEMP 36.5–37.5; O2SAT 90–98
[2017-07-01] MEDS: ALBUT/IPRATROP 3MG/0.5MG NEB 3 ML VIAL INH SCH ×4 (07:30→18:56)
[2017-07-01] MEDS: POLYETHYLENE (MIRALAX) 17 GM PACK PO SCH (08:00)
[2017-07-01] MEDS: BUDESONIDE/FORMOTEROL FUMARATE 160/4.5 60 PUFFS/INHALER INH SCH ×2 (08:11→21:01)
[2017-07-01] MEDS: CHECK FENTANYL PATCH PLACEMENT SCH ×3 (08:11→23:37)
[2017-07-01] MEDS: GABAPENTIN 600 MG TAB PO SCH (08:12)
[2017-07-01] MEDS: CHOLECALCIFEROL 1000 INTER.UNIT TAB PO SCH (08:12)
[2017-07-01] MEDS: GUAIFENESIN 600 MG TABCR PO SCH ×2 (08:12→21:01)
[2017-07-01] MEDS: ENOXAPARIN 40 MG/0.4 ML SYR SQ SCH (08:12)
[2017-07-01] MEDS: LIDODERM (LIDOCAINE) PATCH 5% TD SCH (08:12)
[2017-07-01] MEDS: VENLAFAXINE HCL XR 75 MG CAPXR PO SCH (08:12)
[2017-07-01] MEDS: FINASTERIDE 5 MG TAB PO SCH (08:12)
[2017-07-01] MEDS: CALCIUM CARBONATE 500 MG CHEWABLE PO SCH ×2 (08:13→21:00)
[2017-07-01] MEDS: CALCITONIN SALMON NA 200 IU/AC 3.7 ML BTL SCH (08:13)
[2017-07-01] MEDS: DOCUSATE SODIUM 100 MG CAP PO SCH ×2 (08:13→21:00)
[2017-07-01] MEDS: OXYCODONE HCL IR 5 MG TAB (IMMEDIATE RELEASE) PO PRN ×3 (13:36→23:36)
--- NOTE | 2017-07-01 13:51 | Hospitalist Progress Note ---
Hospitalist Progress Note Date of Service Jul 01, 2017. (Smihta Mcnamara PA-C) Subjective Pt evaluation today including: conversation w/ patient, physical exam, chart review, lab review, review of studies Pain: R shoulder pain, 3/10 PO Intake: good Voiding: no voiding problems The patient was seen and examined this morning. Pt reports his pain is fairly well controlled and that he is breathing without any difficulty. He was up and ambulated to the bathroom last evening and reports did this without much difficulty. He is slightly concerned about having 2 stairs to get into his living room and in his kitchen. He does not have stairs to get into the house from the driveway. He is also awaiting delivery of trilogy to his home. Discussion with CM was held and Trilogy can be delivered tomorrow. The patient needs to be present during trilogy delivery to have it fitted so will plan on discharge tomorrow morning. ROS: Constitutional: No fever, sweats or chills Eyes: No diplopia, no worsening or blurred vision ENT: normal hearing, no trouble swallowing Respiratory: No cough, sputum, dyspnea at rest or on exertion Cardiovascular: No chest pain, tightness or palpitations Abdomen: No pain, nausea, vomiting, diarrhea or constipation Musculoskeletal: No joint pain, calf pain, swelling Neurologic: No weakness, numbness/tingling, or balance problems Psychiatric: No anxiety or depression Skin: No rash or itch (Smitha Mcnamara PA-C) Objective Vital Signs Date Time Temp Pulse Resp B/P (MAP) Pulse Ox O2 Delivery O2 Flow Rate FiO2 07/01/17 11:48 37.1 84 16 116/54 (74) 98 Nasal Cannula 5.0 07/01/17 11:20 96 16 90 Nasal Cannula 4.0 07/01/17 08:00 98 Nasal Cannula 5.0 07/01/17 08:00 Nasal Cannula 4.0 07/01/17 07:31 85 16 94 Nasal Cannula 5.0 07/01/17 07:13 37.0 85 20 121/73 (89) 94 Nasal Cannula 5.0 07/01/17 04:41 36.5 85 19 146/74 (98) 91 Nasal Cannula 5.0 07/01/17 00:00 Nasal Cannula 5.0 Humidified Oxygen 06/30/17 23:04 37.5 100 20 128/64 (85) 96 Nasal Cannula 5.0 06/30/17 20:30 Nasal Cannula 5.0 Humidified Oxygen 06/30/17 19:48 36.6 74 18 121/59 (79) 100 Nasal Cannula 5.0 06/30/17 19:12 88 18 93 Nasal Cannula 5.0 06/30/17 15:54 Nasal Cannula 5.0 06/30/17 15:02 36.9 56 18 145/80 (101) 99 2.0 06/30/17 14:37 80 18 94 Nasal Cannula 5.0 (Smitha Mcnamara, MAKSIM) Physical Exam Notes: General Appearance: WD/WN, no apparent distress Eyes: PERRL, EOMI ENT: hearing grossly normal, pharynx normal Neck: no JVD Respiratory/Chest: no respiratory distress, no accessory muscle use, + pertinent finding (on 4L via NC, coarse breath sounds but dry, no wheeze rhonchi or rales.) Cardiovascular: regular rate, rhythm, no murmur Abdomen: normal bowel sounds, non tender Extremities: non-tender, no pedal edema, no calf tenderness 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: alert, normal mood/affect, oriented x 3 (Smtiha Mcnamara, LINOC) Assessment and Plan Acute on chronic hypercapnic/ hypoxic respiratory failure secondary to COPD exacerbation in an individual with metastatic lung adenocarcinoma - Currently requiring baseline home O2 of 3L - pain situation creating a delicate balance pain control and slow respirations. bipap helping balance this initially - overnight wearing CPAP. - Bipap initially set up but [facility] (therefore if he is able to get home should just need to [facility]) - was much more sedated and hypercapnic a few days ago, reduction in meds has helped breathing improve, pain control seems better at this point. - Trilogy to be delivered to the pt home tomorrow. - Would be beneficial for Dr Pulido to have a discussion with patient in regards to appropriateness for hospice (if not possible in hospital, then at least expedited as outpt if he progresses to where discharge is feasible) - Prednisone slow taper - 10 mg QAm now x 7 days, will dc. 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 - gabapentin - decreased to 600 BID - splint/sling (orthotics consult appreciated) - XRT to lesions to continue - venlafaxine ER titrate up as tolerated (increased to 75mg 06/23 no nausea) vitamin D deficiency - replace aggressively in hopes of some early benefit with bone healing as above Anxiety - Situational anxiety, appears resolved currently. - venlafaxine titrated up, caution w ativan due to breathing, use only when absolutely necessary given his overall situation - but he's noticed times where it is really helping Chronic pancytopenia likely secondary to metastatic lung cancer - Continue folic acid 1mg daily - Hgb stable, follow periodically Hx of DVT and PE - Lovenox 40mg Daily prophylaxis Paroxysmal Atrial Fibrillation - No chronic anticoagulation secondary to comorbidities - Currently NSR, rates controlled BPH - Finasteride 5 mg - Tamsulosin 0.4 mg - no problems Dispo: difficult due to all of above; planned discharge tomorrow with home health, planned trilogy delivery tomorrow. CM assisting with discharge (Smitha Mcnamara PA-C) Supervising Note Dr. Cerrato I performed a history and physical examination on the patient. I reviewed above note and agree with it. I discussed plan with APC and patient. During my face to face encounter with the patient, I answered all of the patient's questions. Aiming for discharge tomorrow as patient will likely have Trilogy set up at home by then. (Uri Cerrato M.D.)
[2017-07-01] MEDS: GABAPENTIN 300 MG CAP PO SCH (20:59)
[2017-07-01] MEDS: TAMSULOSIN HCL 0.4 MG CAP PO SCH (20:59)
[2017-07-02] VITALS (8 sets, daily range): BP systolic 121–122; BP diastolic 56–65; PULSE 66–106; TEMP 37–38.2; O2SAT 91–100
[2017-07-02] MEDS: ALBUT/IPRATROP 3MG/0.5MG NEB 3 ML VIAL INH SCH ×4 (07:05→19:11)
[2017-07-02] MEDS: POLYETHYLENE (MIRALAX) 17 GM PACK PO SCH (08:00)
[2017-07-02] MEDS: CHOLECALCIFEROL 1000 INTER.UNIT TAB PO SCH (08:52)
[2017-07-02] MEDS: GUAIFENESIN 600 MG TABCR PO SCH ×2 (08:53→21:15)
[2017-07-02] MEDS: FINASTERIDE 5 MG TAB PO SCH (08:53)
[2017-07-02] MEDS: GABAPENTIN 600 MG TAB PO SCH (08:53)
[2017-07-02] MEDS: CALCIUM CARBONATE 500 MG CHEWABLE PO SCH ×3 (08:53→21:15)
[2017-07-02] MEDS: LIDODERM (LIDOCAINE) PATCH 5% TD SCH (08:54)
[2017-07-02] MEDS: DOCUSATE SODIUM 100 MG CAP PO SCH ×2 (08:54→21:14)
[2017-07-02] MEDS: VENLAFAXINE HCL XR 75 MG CAPXR PO SCH (08:54)
[2017-07-02] MEDS: CALCITONIN SALMON NA 200 IU/AC 3.7 ML BTL SCH (08:55)
[2017-07-02] MEDS: ENOXAPARIN 40 MG/0.4 ML SYR SQ SCH (08:55)
[2017-07-02] MEDS: CHECK FENTANYL PATCH PLACEMENT SCH ×3 (08:56→23:38)
[2017-07-02] MEDS: BUDESONIDE/FORMOTEROL FUMARATE 160/4.5 60 PUFFS/INHALER INH SCH ×2 (08:56→20:00)
[2017-07-02] MEDS: OXYCODONE HCL IR 5 MG TAB (IMMEDIATE RELEASE) PO PRN (09:04)
--- NOTE | 2017-07-02 09:49 | Discharge Instructions ---
Discharge Instructions Date of Service July 03, 2017. Admission Reason for Admission: Shortness Of Breath Discharge Discharge Diagnosis / Problem: Acute on chronic respiratory failure, COPD Discharge Goals Goal(s): Decrease discomfort, Improve function, Increase independence, Improve disease control Activity Recommendations Activity Limitations: resume your previous activity Lifting Limitations: no more than 25 pounds Exercise/Sports Limitations: none May Resume Sexual Activity: when tolerated Shower/Bathe: no limitations Driving or Machine Use: Do Not Drive . Instructions / Follow-Up Instructions / Follow-Up You were admitted to [facility] with shortness of breath and diagnosed with Acute on chronic respiratory failure, COPD exacerbation, 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/clavicle. During your stay here you were treated with supportive care. Your pain medications were titrated to a level where your pain was manageable and your breathing was stable Continue PT/OT: You are being discharged home with home health services. Please contact the [facility] to have railing installed up the two stairs into multiple entrances to your home, as without it, this places you at risk for fall. Use a cane to assist with stability as needed. Continue working with physical therapy and occupational therapy to gain more mobility in your hips, and muscular strength. Medications: Continue taking your medications as prescribed. Continue to use the fentanyl patch 125 mcg every 3 days, , lidocaine patch daily , and oxycodone 10 mg every 4 hours as needed to control your pain in the right shoulder. Continue taking Vitamin D supplements as prescribed. Your effexor has been increased to 150 mg as this is known to help with chronic pain. You have been on an increased dose for about 1 week. This may take 2-4 weeks to show improvement. Appointments: Follow up with PCP within 1 week. Follow up with Dr. Pulido within 2 weeks Current Hospital Diet Patient's current hospital diet: Regular Diet Discharge Diet Recommended Diet: Regular Diet Pending Studies Studies pending at discharge: no Laboratory Results Hemoglobin A1c Test 04/16/17 08:22 Range/Units Estimated Average Glucose 100 mg/dl Hemoglobin A1c 5.1 4.5-5.6 % Medical Emergencies . Who to Call and When: Medical Emergencies: If at any time you feel your situation is an emergency, please call 911 immediately. . Non-Emergent Contact Non-Emergency issues call your: Primary Care Provider Call Non-Emergent contact if: you have a fever, temperature is above 100.5, your pain is not controlled, your pain is worsening, your pain is unusual for you, your pain is concerning you, you have any medication questions . 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 "Provider Documentation" section prepared by Stefany Mcnamara. . [place] Drug Monitoring Program Search Results: no issues identified
[2017-07-02] MEDS ORDERED: ERGO500011 PO (09:54)
[2017-07-02] MEDS ORDERED: VTMD1000 PO (09:54)
[2017-07-02] MEDS ORDERED: LDDP5 TD ×2 (09:54→14:20)
[2017-07-02] MEDS ORDERED: RXC5 PO (14:20)
[2017-07-02] MEDS ORDERED: DRGTP25 TD (14:20)
[2017-07-02] MEDS ORDERED: DRGTP100 TD (14:20)
--- NOTE | 2017-07-02 15:07 | Discharge Summary ---
Discharge Summary Date of Service July 03, 2017. Discharge Summary Admission Date: Jun 15, 2017 at 15:03 Discharge Date: Jul 03, 2017 Discharge Disposition: Home with services Principal Diagnosis: Acute on chronic hypercapnic/ hypoxic respiratory failure secondary to COPD Problems/Secondary Diagnoses: Medical Problems: (1) Adenocarcinoma of lung (2) Shortness of breath (3) COPD (chronic obstructive pulmonary disease) (4) Hx pulm embolism (5) Coronary artery disease (6) Hematuria (7) History of metastatic neoplastic disease (8) Hypoxia (9) Metastatic lung cancer (metastasis from lung to other site) (10) Pancytopenia Surgical Problems: (1) History of total replacement of right hip Immunizations: Have You Had Influenza Vaccine: No History of Tetanus Vaccine?: No History of Pneumococcal: No History of Hepatitis B Vaccine: No Procedures: R SHOULDER MIN 2 VIEWS ROUTINE 06/14/17 IMPRESSION: Multiple lytic lesions suggested in the clavicle and proximal humerus concerning for metastatic disease. A pathologic nondisplaced fracture of the distal right clavicle is difficult to exclude. CHEST ONE VIEW PORTABLE 06/14/17 IMPRESSION: 1. Interval decrease in right reticulonodular opacities consistent with evolving/resolving inflammatory or infectious etiology. 2. Interval decrease in left basilar atelectasis or similar inflammatory or infectious changes. 3. No new focal infiltrate. 4. Metastatic disease better demonstrated on prior CT from 05/22/2017. 5. Prominence of the kamini likely relates to prominent right and left pulmonary arteries best seen on prior CT. Consultations: Radiation/oncology Orthotic Wound Pain management Medication Reconciliation New Medications: Venlafaxine Hcl (Venlafaxine Hcl Er) 150 Mg Tab 1 TAB PO DAILY for 30 Days, #30 TAB 1 Refill Cholecalciferol (Vitamin D3) 1,000 Inter.unit Tab 4000 INTER.UNIT PO QAM for 30 Days, #120 TAB Ergocalciferol (Vitamin D 07916 Unit) 50,000 Unit Cap 08284 INTERUNIT PO Th@0900 for 30 Days, #4 CAP Fentanyl (Fentanyl) 100 Mcg Tdsy 100 MCG TD Q3D@1800, #10 PATCH Gabapentin (Gabapentin) 600 Mg Tab 600 MG PO TID, #90 TAB Lidocaine (Lidocaine) 1 Patch Tdsy 1 PATCH TD DAILY for 30 Days, #30 PATCH Oxycodone HCl (Oxycodone HCl) 5 Mg Tab 10 MG PO Q4 PRN for Pain, #120 TAB Prednisone (Prednisone) 10 Mg Tab 10 MG PO QAM, #30 TAB Continued Medications: Albuterol Sulfate (Proventil Hfa) 108 Mcg/Act Aer 2 PUFFS INH QID PRN for Wheezing Budesonide/Formoterol Fumarate (Symbicort 160/4.5 Inhaler ) Aero 2 PUFFS INH BID, INHALER Enoxaparin (Lovenox) 40 Mg/0.4 Ml Inj 0.4 ML SQ DAILY for 365 Days, #30 SYR Finasteride (Finasteride) 5 Mg Tab 5 MG PO QAM for 14 Days, #14 TAB Folic Acid (Folic Acid) 1 Mg Tab 1 MG PO QAM, #90 TAB 3 Refills Guaifenesin Ext Rel (Mucinex Ext Rel) 600 Mg Tabcr 1200 MG PO Q12, #28 DOSE Home O2 Therapy (Oxygen) Gas 3 LITERS NA CONTINOUS for 365 Days, #1 UNIT Ipratropium-Albuterol (Duoneb) 3 Ml Nebu 3 ML INH QIDR, #120 DOSE 6 Refills if improved may change from nebulized to respimat Ipratropium-Albuterol (Combivent Respimat) 1 Aer Aer 1 PUFFS INH TID PRN for SOB/Wheezing, INH Tamsulosin HCl (Tamsulosin HCl) 0.4 Mg Cap 0.4 MG PO HS for 30 Days, #30 CAP Discontinued Medications: Fentanyl (Fentanyl) 75 Mcg/Hr Dis 75 MCG TD [id number] Morphine Sulfate Ir (Morphine Sulfate Ir) 15 Mg Tab 15 MG PO Q12 PRN for Pain, TAB Prednisone (Prednisone) 10 Mg Tab 10 MG PO UD, #42 TAB 4 Refills 4 a day x 4 days then 3 a day x 4 days then 2 a day x 4 days then 1 a day unless stopped by pulmonary doctor Discharge Exam The patient was seen and examined this morning. Pt reports his shoulder is still painful, although he believes he will be able to manage at home. His is present with him this morning prior to discharge. Discussion was held regarding watching for signs of lethargy, confusion, increased fatigue, and decreased respiratory rate. They both understand and are in agreement with taking medication the way it is prescribed. I have asked him to come back to the ER if his pain gets worse. Follow up appointments will be arranged within 1 -2 weeks to make sure his pain control is maintained. He notes his breathing fine, and understands the fine balance between respiratory depression and pain control. Pt is anticipating trilogy delivery to his home today at noon, and will be fitted for it there. Pt does not have railing on the two steps to enter his home, but reports home health agency had sent in a proposal for railing installation 1.5-2 months ago, and he has been waiting a response. He does feel safe to go home today, as his and brother will both be at home to help him. He denies any other acute complaints. Physical Exam General Appearance: WD/WN, no apparent distress Eyes: PERRL, EOMI ENT: hearing grossly normal, pharynx normal Neck: no JVD Respiratory/Chest: no respiratory distress, no accessory muscle use, + pertinent finding (on 4L via NC, coarse breath sounds but dry, no wheeze rhonchi or rales.) Cardiovascular: regular rate, rhythm, no murmur Abdomen: normal bowel sounds, non tender Extremities: non-tender, no pedal edema, no calf tenderness. + right shoulder with pain with movement unchanged 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: alert, normal mood/affect, oriented x 3 Review of Systems: Constitutional: + fatigue, No fever, No chills, No sweats, No weight loss Eyes: No redness, No diplopia ENT: No sore throat Respiratory: No cough, No sputum, No wheezing, No shortness of breath Cardiovascular: No chest pain, No edema Abdomen: No pain, No nausea, No vomiting, No diarrhea, No constipation Musculoskeletal: + joint pain (right shoulder), No swelling Neurologic: No numbness/tingling, No balance problems Psychiatric: No depression symptoms, No anxiety Integumentary: No rash, No itch Hospital Course Acute on chronic hypercapnic/ hypoxic respiratory failure secondary to COPD exacerbation in an individual with metastatic lung adenocarcinoma - Currently requiring baseline home O2 of 3L - pain situation creating a delicate balance pain control and slow respirations. bipap helping balance this initially - overnight wearing CPAP. - [facility] set up but [facility] (therefore if he is able to get home should just need [facility]) - was much more sedated and hypercapnic a few days ago, reduction in meds has helped breathing improve, pain control seems stable at this point. - [facility] - Discussed with his regarding signs and symptoms of narcotic overdose including but not limited to: lethargy, confusion, increased fatigue and decreased respiratory rate. - Would be beneficial for Dr Pulido to have a discussion with patient in regards to appropriateness for hospice (if not possible in hospital, then at least expedited as outpt - Cm has set up) - Prednisone slow taper - 10 mg QAm now x 1 wk - continue upon discharge at 10 mg daily and will let pulmonary decide upon discontinuing. Possible that steriod is helping with inflammation for R shoulder pain as well as breathing. 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 - gabapentin - decreased to 600 BID - splint/sling (orthotics consult appreciated) - XRT to lesions finished x 10 treatments on 06/30. - venlafaxine ER titrate up as tolerated (increased to150 mg at this point) vitamin D deficiency - replace aggressively in hopes of some early benefit with bone healing as above Anxiety - Situational anxiety, appears resolved currently. - venlafaxine titrated up, caution w ativan due to breathing, use only when absolutely necessary given his overall situation - but he's noticed times where it is really helping Chronic pancytopenia likely secondary to metastatic lung cancer - Continue folic acid 1mg daily - Hgb stable, follow periodically Hx of DVT and PE - Lovenox 40mg Daily prophylaxis Paroxysmal Atrial Fibrillation - No chronic anticoagulation secondary to comorbidities - Currently NSR, rates controlled BPH - Finasteride 5 mg - Tamsulosin 0.4 mg - no problems Dispo: discharge today with home health services. Supervising Note Dr. Cerrato I performed a history and physical examination on the patient. I reviewed above note and agree with it. I discussed plan with APC and patient. During my face to face encounter with the patient, I answered all of the patient's questions. Patient at this time is not interested in palliative care. Will continue outpatient treatment as stated above. Total Time Spent: Greater than 30 minutes This includes examination of the patient, discharge planning, medication reconciliation, and communication with other providers. Discharge Instructions Please refer to the electronic Patient Visit Report (Discharge Instructions) for additional information. Follow-Up Follow up with your Primary Care Provider within 1 week. Follow up with pulmonary with Dr. Pulido within 2 weeks. Follow up with oncology as scheduled. Additional Copies To Ann Olivas M.D.
[2017-07-02] MEDS: TAMSULOSIN HCL 0.4 MG CAP PO SCH (21:15)
[2017-07-02] MEDS: GABAPENTIN 300 MG CAP PO SCH (21:15)
[2017-07-03 00:04] VITALS: BP 120/69; PULSE 84; TEMP 36.9; O2SAT 95
[2017-07-03 04:00] VITALS: BP 107/63; PULSE 71; TEMP 36.7; O2SAT 95
[2017-07-03 07:01] VITALS: BP 128/65; PULSE 88; TEMP 36.8; O2SAT 91
[2017-07-03] MEDS: ALBUT/IPRATROP 3MG/0.5MG NEB 3 ML VIAL INH SCH (07:21)
[2017-07-03 07:22] VITALS: PULSE 81; O2SAT 93
[2017-07-03] MEDS: CALCIUM CARBONATE 500 MG CHEWABLE PO SCH (07:35)
[2017-07-03] MEDS: CHOLECALCIFEROL 1000 INTER.UNIT TAB PO SCH (07:35)
[2017-07-03] MEDS: OXYCODONE HCL IR 5 MG TAB (IMMEDIATE RELEASE) PO PRN (07:35)
[2017-07-03] MEDS: FINASTERIDE 5 MG TAB PO SCH (07:36)
[2017-07-03] MEDS: VENLAFAXINE HCL XR 75 MG CAPXR PO SCH (07:36)
[2017-07-03] MEDS: DOCUSATE SODIUM 100 MG CAP PO SCH (07:36)
[2017-07-03] MEDS: GUAIFENESIN 600 MG TABCR PO SCH (07:37)
[2017-07-03] MEDS: GABAPENTIN 600 MG TAB PO SCH (07:37)
[2017-07-03] MEDS: BUDESONIDE/FORMOTEROL FUMARATE 160/4.5 60 PUFFS/INHALER INH SCH (07:39)
[2017-07-03] MEDS: CALCITONIN SALMON NA 200 IU/AC 3.7 ML BTL SCH (07:39)
[2017-07-03] MEDS: POLYETHYLENE (MIRALAX) 17 GM PACK PO SCH (07:40)
[2017-07-03] MEDS: ENOXAPARIN 40 MG/0.4 ML SYR SQ SCH (07:41)
[2017-07-03] MEDS: CHECK FENTANYL PATCH PLACEMENT SCH (07:41)
[2017-07-03] MEDS: LIDODERM (LIDOCAINE) PATCH 5% TD SCH (07:42)
[2017-07-03 08:00] VITALS: O2SAT 93
[2017-07-03] MEDS ORDERED: ERGOCALCIFEROL 50,000 INTER.UNIT CAP PO SCH (09:00)
--- NOTE | 2017-07-03 09:33 | Hospitalist Progress Note ---
Hospitalist Progress Note Date of Service Jul 02, 2017. (Smitha Mcnamara PA-C) Subjective Pt evaluation today including: conversation w/ patient, physical exam, chart review, lab review, review of studies The patient was seen and examined this morning. Pt reports doing ok this morning. He still has complaints of shoulder pain, and notes his pain is only slightly better today than when he came in. He notes his breathing is much more improved however and understands the fine balance between respiratory depression and pain control. Pt is anticipating trilogy delivery to his home today, and will be fitted for it there. Pt does not have railing on the two steps to enter his home, but reports home health agency had sent in a proposal for railing installation 1.5- 2 months ago, and he has been waiting a response. He does feel safe to go home , as his and brother will both be at home to help him. He denies any other acute complaints. Review of Systems: Constitutional: + fatigue, No fever, No chills, No sweats, No weight loss Eyes: No redness, No diplopia ENT: No sore throat Respiratory: No cough, No sputum, No wheezing, No shortness of breath Cardiovascular: No chest pain, No edema Abdomen: No pain, No nausea, No vomiting, No diarrhea, No constipation Musculoskeletal: + joint pain (right shoulder), No swelling Neurologic: No numbness/tingling, No balance problems Psychiatric: No depression symptoms, No anxiety Integumentary: No rash, No itch Physical Exam General Appearance: WD/WN, no apparent distress Eyes: PERRL, EOMI ENT: hearing grossly normal, pharynx normal Neck: no JVD Respiratory/Chest: no respiratory distress, no accessory muscle use, + pertinent finding (on 4L via NC, coarse breath sounds but dry, no wheeze rhonchi or rales.) Cardiovascular: regular rate, rhythm, no murmur Abdomen: normal bowel sounds, non tender Extremities: non-tender, no pedal edema, no calf tenderness. + right shoulder with pain with movement unchanged 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: alert, normal mood/affect, oriented x 3 (Smitha Mcnamara PA-C) Objective Vital Signs Date Time Temp Pulse Resp B/P (MAP) Pulse Ox O2 Delivery O2 Flow Rate FiO2 07/03/17 08:00 93 Nasal Cannula 4.0 07/03/17 07:22 81 16 93 Nasal Cannula 4.0 07/03/17 07:01 36.8 88 20 128/65 (86) 91 Nasal Cannula 4.0 07/03/17 04:00 36.7 71 20 107/63 (78) 95 Nasal Cannula 4.0 07/03/17 00:10 Nasal Cannula 4.0 07/03/17 00:04 36.9 84 20 120/69 (86) 95 Nasal Cannula 4.0 07/02/17 20:20 Nasal Cannula 4.0 07/02/17 19:11 89 16 93 Nasal Cannula 4.0 07/02/17 16:00 Nasal Cannula 4.0 07/02/17 15:11 106 16 93 Nasal Cannula 4.0 07/02/17 13:37 37.1 66 16 91 Nasal Cannula 07/02/17 11:19 66 16 91 Nasal Cannula 4.0 (Smitha Mcnamara, PAOfeliaC) Assessment and Plan Acute on chronic hypercapnic/ hypoxic respiratory failure secondary to COPD exacerbation in an individual with metastatic lung adenocarcinoma - Currently requiring baseline home O2 of 3L - pain situation creating a delicate balance pain control and slow respirations. bipap helping balance this initially - overnight wearing CPAP. - [facility] initially set up but [facility] (therefore if he is able to get home should just need [facility]) - was much more sedated and hypercapnic a few days ago, reduction in meds has helped breathing improve, pain control seems stable at this point. - [facility] - Would be beneficial for Dr Pulido to have a discussion with patient in regards to appropriateness for hospice (if not possible in hospital, then at least expedited as outpt - will ask CM to set up - Prednisone slow taper - 10 mg QAm now x 7 days - continue upon discharge at 10 mg daily and will let pulmonary decide upon discontinuing. Possible that steriod is helping with inflammation for R shoulder pain as well as breathing. 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 - gabapentin - decreased to 600 BID - splint/sling (orthotics consult appreciated) - XRT to lesions finished x 10 treatments on 06/30. - venlafaxine ER titrate up as tolerated (increased to150 mg at this point) vitamin D deficiency - replace aggressively in hopes of some early benefit with bone healing as above Anxiety - Situational anxiety, appears resolved currently. - venlafaxine titrated up, caution w ativan due to breathing, use only when absolutely necessary given his overall situation - but he's noticed times where it is really helping Chronic pancytopenia likely secondary to metastatic lung cancer - Continue folic acid 1mg daily - Hgb stable, follow periodically Hx of DVT and PE - Lovenox 40mg Daily prophylaxis Paroxysmal Atrial Fibrillation - No chronic anticoagulation secondary to comorbidities - Currently NSR, rates controlled BPH - Finasteride 5 mg - Tamsulosin 0.4 mg - no problems Dispo: discharge within 24 hours (Smitha Mcnamara, PAOfeliaC) Supervising Note Dr. Cerrato I performed a history and physical examination on the patient. I reviewed above note and agree with it. I discussed plan with APC and patient. During my face to face encounter with the patient, I answered all of the patient's questions. Discharge was held as equipment was not brought to house in time. Will discharge him likely on July 03. (Uri Cerrato M.D.)
[2017-07-03] MEDS ORDERED: VENL150T33 PO (15:09)
[2017-07-04] MEDS ORDERED: NRN600 PO (09:07)
[2017-07-04] MEDS ORDERED: FLM4 PO (09:07)
--- NOTE | 2017-07-04 11:46 | Radiation Onc End of Treatmnt ---
End of Treatment Documentation Date Jul 04, 2017. Diagnosis (1) Metastatic carcinoma to bone Location: Right shoulder Stage: IV Permanent Comment: Metastatic disease to bone, liver, lungs Status post completion of radiation therapy to T5, right second and third ribs. Completed 11/14/2016. He received 3000 cGy Right shoulder pain due to metastatic disease Status post completion of palliative radiation therapy to the right shoulder June 30, 2017. He received 3000 cGy Last Edited By: Kristi Ibanez on Jul 04, 2017 11:44 History Mr. Hagan is a 67-year-old gentleman initially diagnosed with metastatic cancer involving the bone, liver and lungs who is well-known to our service. In November 2016, the patient elected to undergo palliative radiation therapy to T5 in the right second/third ribs. In interim, the patient has been receiving systemic therapy underneath the supervision of Dr. Genaro Biggs. More recently, the patient received Opdivo underneath Dr. Biggs supervision. He did have a CT of the chest on May 22, 2017 which revealed: "IMPRESSION: 1. Stable metastatic change throughout the lungs. 2. Slight improvement in aeration both lung bases with a mild improvement of the basilar infiltrative change. 3. Stable bilateral pleural thickening." More recently, the patient complained of significant pain involving his right shoulder. He presented to the emergency room and was admitted to [facility]. He did have a right shoulder on June 14, 2017 which revealed: "IMPRESSION: Multiple lytic lesions suggested in the clavicle and proximal humerus concerning for metastatic disease. A pathologic nondisplaced fracture of the distal right clavicle is difficult to exclude." We have been asked to evaluate the patient for consideration of palliative external beam radiation therapy to the right shoulder. Currently, the patient continues to have significant pain involving the right shoulder. He has difficulty abducting the arm. Physics Course Treatment Site [employer] Start Date End Date Elapsed Days # TX Daily Dose (cGy) Total Dose (cGy) C1- Rt Shoulder Parallel Opposed 15X 06/17/2017 06/30/2017 14 10 300 3000 Do documented final doses agree with prescribed doses? Yes If not, explain: Is patients chart complete and accurate? Yes If not, explain: Notes/Comments: Previous radiation treatment to: - Chest: 30 Gy in 10 fractions, finishing on 11/14/2016. Systemic Therapy Chemotherapy not given Additional Notes He completed his course of palliative radiation therapy. He tolerated this well. He had been admitted with shortness of breath but had a complaint of severe right shoulder pain. Study showed metastatic disease. He did not develop any areas of skin irritation. Treatment was completed while he was an inpatient. He will continue regular follow-up with his primary care provider. A follow-up appointment was given for 1 month. He may call our office if he has any questions or concerns in the interim. Pain Management Please refer to current inpatient medication management. At the beginning of treatment he gave a pain level of 8. At the end of treatment he was given a pain level of 2-3. He felt that radiation did not help with his discomfort. He is discharged home with medication prescribed by the hospitalist. He did not require pain medications through our office. Copies To Ann Olivas M.D.; Genaro Biggs MD; Tracy Howard M.D.
== END 2017-07-03 10:12 | disposition home health service (06) | DRG 542 ==
LOC: EDBD 17:22 → C.EDC 17:23 → C.2T 21:00 → ENRESERV 21:18 → C.4E 06-15 13:23 → OBSVTOIN 06-15 15:03
PROVIDERS: ADMIT Hospitalist; ATTEND Internal Medicine Sports Medicine
DX: M84.511A Pathological fracture in neoplastic disease, right shoulder, initial encounter for fracture (principal); J96.21 Acute and chronic respiratory failure with hypoxia; J96.22 Acute and chronic respiratory failure with hypercapnia; J44.1 Chronic obstructive pulmonary disease with (acute) exacerbation; C79.51 Secondary malignant neoplasm of bone; C78.00 Secondary malignant neoplasm of unspecified lung; D61.818 Other pancytopenia; G89.3 Neoplasm related pain (acute) (chronic); I25.10 Atherosclerotic heart disease of native coronary artery without angina pectoris; E55.9 Vitamin D deficiency, unspecified; F41.9 Anxiety disorder, unspecified; I48.0 Paroxysmal atrial fibrillation; N40.0 Benign prostatic hyperplasia without lower urinary tract symptoms; Z79.899 Other long term (current) drug therapy; Z79.01 Long term (current) use of anticoagulants; Z79.52 Long term (current) use of systemic steroids; Z79.891 Long term (current) use of opiate analgesic; Z99.81 Dependence on supplemental oxygen; Z66 Do not resuscitate; Z86.711 Personal history of pulmonary embolism; Z86.718 Personal history of other venous thrombosis and embolism; Z95.5 Presence of coronary angioplasty implant and graft; Z87.01 Personal history of pneumonia (recurrent); Z87.891 Personal history of nicotine dependence

== ENCOUNTER 2017-07-07 01:23 | Inpatient (IN) | payer OTHER ==
[~2017-07-07] VITALS: Ht 170.2 cm; Wt 79.2 kg
[2017-07-07] VITALS (17 sets, daily range): BP systolic 98–115; BP diastolic 46–76; PULSE 66–119; TEMP 36.4–37.2; O2SAT 89–98; Ht 170.2 cm; Wt 79.2 kg
[~2017-07-07 01:23] MED LIST changes: -ATV1 PO; +DRGTP100 TD; +ERGO500011 PO; -FENT75DI2 TD; +IPRA1AER2 INH; +LDDP5 TD; -LVQ750 PO; +NRN600 PO; +PRD10 PO; -PRED10TA PO; +RXC5 PO; -SPRIN INH; -ULT50X PO; +VENL150T33 PO; +VTMD1000 PO
[2017-07-07] MEDS ORDERED: ACETAMINOPHEN 500 MG TAB PO STA (01:57)
[2017-07-07 02:03] LABS: BASO % 0.1 %; BASO ABS # 0.01 K/uL (0-0.2); EOS % 0.1 %; EOS ABS # 0.01 K/uL (0-0.5); HEMATOCRIT 30.7 % (42-52); HEMOGLOBIN 9.7 g/dL (14.0-18.0); IG# 0.02 K/uL (0.00-0.02); LYMPH % 9.9 %; LYMPH ABS # 0.71 K/uL (1.2-3.4); MEAN CELL VOLUME 102.7 fL (80-100); MEAN CORPUSCULAR HEMOGLOBIN 32.4 pg (25-34); MEAN CORPUSCULAR HGB CONC 31.6 g/dl (32-36); MEAN PLATELET VOLUME 8.4 fL (7.4-10.4); MONO % 8.8 %; MONO ABS # 0.63 K/uL (0.11-0.59); NEUT % 80.8 %; NEUT ABS # 5.77 K/uL (1.4-6.5); PLATELET COUNT 158 K/uL (130-400); RED CELL DISTRIBUTION WIDTH CV 13.9 % (11.5-14.5); WHITE BLOOD COUNT 7.15 K/uL (4.8-10.8)
--- NOTE | 2017-07-07 02:08 | EMERGENCY ROOM VISIT NOTE ---
History Report prepared by Deo: Genaro Shane Under the Supervision of: Dr. Martina Hammond D.O. First contact with patient: 01:37 Chief Complaint: RESPIRATORY PROBLEMS Stated Complaint: WEAK/CONFUSED/SHORT OF BREATH History of Present Illness The patient is a 67 year old male who presents to the Emergency Room with complaints of constant dyspnea beginning today. Per nurse, the patient typically takes 3-4L of oxygen at home. He notes that when the patient was brought into the emergency room today, he was saturating at 76% on 5L. He reports that the patient was given Solu-Medrol and neb treatments, as well as placed on BiPAP by EMS during arrival. The patient states that he typically takes breathing treatments, but did not today due to company. He notes that he went back to wearing his usual oxygen today but became confused and did not recall his family being there. He reports that when he tried to use his C-pap tonight, it did not seem to be working. The patient states that his family called the C-pap company and got no response. He notes that he then went to nasal oxygen and did not feel as though he was getting enough. He also complains of shoulder pain, fatigue, and has a fever. He notes that he has not been drinking liquids as much today as he "would have liked to." He reports that he has a history of COPD, lung cancer, [address], and previous blood clots. The patient states that he takes Lovenox. Pt denies any rashes, swelling, headache, change in vision, abdominal pain, chest pain, nausea, vomiting, diarrhea, pain with urination, and melena. Source of History: patient, nursing staff Onset: today Position: chest Symptom Intensity: 76% on oxygen Quality: other (dyspnea) Timing: constant Associated Symptoms: + fevers, No headache, No chest pain, No nausea, No vomiting, No abdominal pain, No melena, No diarrhea, No rash Note: The patient also complains of shoulder pain, confusion, and fatigue. He also denies any change in vision and pain with urination. Review of Systems See HPI for pertinent positives & negatives. A total of 10 systems reviewed and were otherwise negative. Past Medical & Surgical Medical Problems: (1) Adenocarcinoma of lung (2) Adenocarcinoma of unknown primary (3) COPD (chronic obstructive pulmonary disease) (4) COPD exacerbation (5) Coronary artery disease (6) HCAP (healthcare-associated pneumonia) (7) Hematuria (8) History of metastatic neoplastic disease (9) Hypoxia (10) Metastatic cancer (11) Metastatic lung cancer (metastasis from lung to other site) (12) Pancytopenia (13) Pneumonia (14) Pulmonary embolism, bilateral (15) Sepsis (16) Shortness of breath Surgical Problems: (1) History of total replacement of right hip Family History CABG Cancer Social History Smoking Status: Former Smoker Drug Use: none Marital Status: Occupation Status: retired Current/Historical Medications Scheduled Budesonide/Formoterol Fumarate (Symbicort 160/4.5 Inhaler ), 2 PUFFS INH BID Cholecalciferol (Vitamin D3), 4,000 UNITS PO QAM Cholecalciferol (Vitamin D3), 50,000 UNITS PO WK Enoxaparin (Lovenox), 40 MG SQ QAM Fentanyl (Fentanyl), 100 MCG TD Q72 HOURS. Finasteride (Finasteride), 5 MG PO QAM Folic Acid (Folic Acid), 1 MG PO QPM Gabapentin (Neurontin), 600 MG PO TID Guaifenesin Ext Rel (Mucinex Ext Rel), 1,200 MG PO Q12 Home O2 Therapy (Oxygen), 3 LITERS NA CONTINOUS Ipratropium-Albuterol (Duoneb), 1 TREATMENT INH QID Prednisone Tab (Prednisone), 10 MG PO QAM Tamsulosin Hcl (Flomax), 0.4 MG PO HS Venlafaxine Hcl (Effexor Extended Rel), 150 MG PO QPM Scheduled PRN Albuterol Sulfate (Proventil Hfa), 2 PUFFS INH QID PRN for Wheezing Ipratropium-Albuterol (Combivent Respimat), 1 PUFFS INH TID PRN for SOB/Wheezing Oxycodone Hcl (Oxycodone Hcl), 5 MG PO Q4H PRN for Pain Allergies Coded Allergies: No Known Allergies (Verified , 07/07/17) Physical Exam Vital Signs Date Time Temp Pulse Resp B/P (MAP) Pulse Ox O2 Delivery O2 Flow Rate FiO2 07/07/17 04:33 76 14 110/49 93 BiPAP 50 07/07/17 04:16 81 12 98/54 94 BiPAP 50 07/07/17 04:01 82 12 99/54 93 BiPAP 50 07/07/17 03:46 84 13 116/49 93 BiPAP 50 07/07/17 03:31 89 14 100/54 91 BiPAP 50 /09/19 03:25 37.1 88 14 112/54 93 BiPAP 50 /18 03:17 105 93 50 /09/19 03:01 88 19 107/61 92 BiPAP 50 // 02:46 100 16 122/48 93 BiPAP 50 /09/19 02:31 96 19 125/60 91 BiPAP 50 /09/19 02:16 80 21 85/47 93 BiPAP 50 // 02:15 98 18 85/47 94 BiPAP 07/07/17 02:01 96 21 122/62 94 /09/19 01:47 91 15 115/52 95 /18 01:42 102 07/07/17 01:35 119 94 50 /09/19 01:33 101 21 92/51 93 07/07/17 01:32 38.4 102 20 92/51 96 BiPAP Physical Exam GENERAL: alert, well appearing, well nourished, no distress, non-toxic, patient on BiPAP EYE EXAM: normal conjunctiva, PERRL and EOM's grossly intact OROPHARYNX: no exudate, no erythema, lips, buccal mucosa, and tongue normal and mucous membranes are moist NECK: supple, no nuchal rigidity, no adenopathy, non-tender LUNGS: Normal chest wall mechanics, coarse cough noted during exam, diminished breath sounds bilaterally, coarse breath sounds bilaterally, no obvious wheeze. HEART: no murmurs, S1 normal and S2 normal ABDOMEN: abdomen soft, non-tender, normo-active bowel sounds, no masses, no rebound or guarding. BACK: Back is symmetrical on inspection and there is no deformity, no midline tenderness, no CVA tenderness. SKIN: no rashes and no bruising UPPER EXTREMITIES: upper extremities are grossly normal, figure of eight sling in place across shoulders, fentanyl patch noted on chest wall. LOWER EXTREMITIES: No pitting edema. NEURO EXAM: Normal sensorium, cranial nerves II-XII grossly intact, normal speech, no gross weakness of arms, no gross weakness of legs. Medical Decision & Procedures ER Provider Diagnostic Interpretation: Radiology results have been interpreted and reviewed by me. CHEST X-RAY: Cardiomegaly. Port noted. Increased interstitial markings at the right base, slightly worse compared to prior. No overt pulmonary edema. Poor patient positioning. Right clavicular fracture noted. Laboratory Results 07/07/17 01:00 Red Blood Count 2.99, Mean Corpuscular Volume 102.7, Mean Corpuscular Hemoglobin 32.4, Mean Corpuscular Hemoglobin Concent 31.6, Mean Platelet Volume 8.4, Neutrophils (%) (Auto) 80.8, Lymphocytes (%) (Auto) 9.9, Monocytes (%) ( Auto) 8.8, Eosinophils (%) (Auto) 0.1, Basophils (%) (Auto) 0.1, Neutrophils # ( Auto) 5.77, Lymphocytes # (Auto) 0.71, Monocytes # (Auto) 0.63, Eosinophils # ( Auto) 0.01, Basophils # (Auto) 0.01 07/07/17 01:00 Test 07/07/17 00:00 07/07/17 01:00 07/07/17 02:23 Influenza Type A (RT-PCR) POS for Influ A (NEG) Influenza Type B (RT-PCR) Neg for Influ B (NEG) White Blood Count 7.15 K/uL (4.8-10.8) Red Blood Count 2.99 M/uL (4.7-6.1) Hemoglobin 9.7 g/dL (14.0-18.0) Hematocrit 30.7 % (42-52) Mean Corpuscular Volume 102.7 fL (80-100) Mean Corpuscular Hemoglobin 32.4 pg (25-34) Mean Corpuscular Hemoglobin Concent 31.6 g/dl (32-36) Platelet Count 158 K/uL (130-400) Mean Platelet Volume 8.4 fL (7.4-10.4) Neutrophils (%) (Auto) 80.8 % Lymphocytes (%) (Auto) 9.9 % Monocytes (%) (Auto) 8.8 % Eosinophils (%) (Auto) 0.1 % Basophils (%) (Auto) 0.1 % Neutrophils # (Auto) 5.77 K/uL (1.4-6.5) Lymphocytes # (Auto) 0.71 K/uL (1.2-3.4) Monocytes # (Auto) 0.63 K/uL (0.11-0.59) Eosinophils # (Auto) 0.01 K/uL (0-0.5) Basophils # (Auto) 0.01 K/uL (0-0.2) RDW Standard Deviation 52.0 fL (36.4-46.3) RDW Coefficient of Variation 13.9 % (11.5-14.5) Immature Granulocyte % (Auto) 0.3 % Immature Granulocyte # (Auto) 0.02 K/uL (0.00-0.02) Prothrombin Time 12.2 SECONDS (9.0-12.0) Prothromb Time International Ratio 1.2 (0.9-1.1) Anion Gap 0.0 mmol/L (3-11) Est Creatinine Clear Calc Drug Dose 192.7 ml/min Estimated GFR () 142.5 Estimated GFR (Non- 122.9 BUN/Creatinine Ratio 53.3 (10-20) Calcium Level 9.7 mg/dl (8.5-10.1) Total Bilirubin 0.3 mg/dl (0.2-1) Direct Bilirubin 0.1 mg/dl (0-0.2) Aspartate Amino Transf (AST/SGOT) 15 U/L (15-37) Alanine Aminotransferase (ALT/SGPT) 18 U/L (12-78) Alkaline Phosphatase 117 U/L (45-117) Troponin I < 0.015 ng/ml (0-0.045) Pro-B-Type Natriuretic Peptide 600 pg/ml (0-900) Total Protein 7.2 gm/dl (6.4-8.2) Albumin 2.5 gm/dl (3.4-5.0) Bedside Lactic Acid Venous 0.80 mmol/L (0.90-1.70) Laboratory results per my review. Medications Administered Medications (Trade) Dose Ordered Sig/Abbi Route Start Time Stop Time Status Last Admin Dose Admin Acetaminophen (Tylenol Tab) 1,000 mg NOW STAT PO 07/07/17 01:57 07/07/17 01:58 DC 07/07/17 02:33 1,000 MG Sodium Chloride 500 ml @ 999 mls/hr Q31M STAT IV 07/07/17 02:39 07/07/17 03:09 DC 07/07/17 02:43 999 MLS/HR Vancomycin HCl (Vancomycin 1gm/ 270ml Nss) 1 gm NOW STAT IV 07/07/17 03:18 07/07/17 03:19 DC 07/07/17 03:33 1 GM Piperacillin Sod/ Tazobactam Sod (Zosyn Iv) 4.5 gm NOW STAT IV 07/07/17 03:18 07/07/17 03:19 DC 07/07/17 03:52 4.5 GM Azithromycin 500 mg/Dextrose 255 ml @ 125 mls/hr ONE ONCE IV 07/07/17 03:30 07/07/17 05:32 DC 07/07/17 04:18 125 MLS/HR Oxycodone HCl (Roxicodone Immediate Rel Tab) 5 mg Q4H PRN PO 07/07/17 04:30 08/06/17 04:29 07/07/17 19:57 5 MG ECG Per My Interpretation Indication: SOB/dyspnea Rate (beats per minute): 100 Rhythm: sinus tachycardia Findings: T-wave inversion, other (rightward axis vs. limb lead reversal, no acute ST elevation) Comparison ECG Date: 06/14/2017 Change: no significant change ED Course 0140: The patient was evaluated in room A3. A complete history and physical exam was performed. 0157: Acetaminophen 1000mg PO 0238: I reevaluated and updated the patient. When they took off his mask to give him Tylenol, his oxygen saturation quickly dropped to 82%. His blood pressure also dropped low. 0239: Sodium Chloride 500 ml @ 999 mls/hr IV 0318: Zosyn Iv 4.5gm IV, Vancomycin HCl 1gm IV 0351: I rechecked the patient. His vital signs are stable and he is resting. I spoke to the patient's girlfriend at bedside. The patient's girlfriend and brother are joint POA. The patient does not want chest compressions but is unsure about intubation. 0438: I reevaluated and updated the patient. He is holding his blood pressure and looks comfortable on BiPAP. 0453: Upon reevaluation, the patient is stable. I discussed the findings and the treatment plan with the patient. He expresses agreement and understanding. I spoke with Dr. Whittaker of the [facility] Hospitalist Service. The patient will be evaluated for further management. Medical Decision Differential diagnosis: Etiologies such as infections, reactive airway disease, pneumonia, pneumothorax , COPD, CHF, cardiac ischemia, pulmonary embolism, musculoskeletal, gastrointestinal, as well as others were entertained. Difficulty evaluating the patient initially due to increased work of breathing, patient placed on BiPAP on arrival here as patient has been on CPAP from EMS. EMS gave the patient a DuoNeb treatment and 125 mg of Solu-Medrol IV prior to arrival. Patient had no wheezing on my initial exam at bedside but was diminished throughout. Patient was awake and alert answering questions, stated he did feel improved with the BiPAP in place. Oxygen saturations here were improved to the low to mid 90s other vital signs were stable. Patient with significant recent past medical history including a recent admission. Concern for possible increase in right lower lobe infiltrate noted on chest x-ray tonight compared to prior and given recent admission patient was covered for a healthcare associated pneumonia. Blood cultures were pending. Blood gas showed hypercapnia, however patient has had this previously, and appears to likely have a chronic component given that his pH was 7.3. I have a lower suspicion for pulmonary embolism given that the patient takes Lovenox injections daily, however this is still possible. Possible worsening of the patient's known lung malignancy also and additionally COPD exacerbation given his history. Patient with elevated serum bicarb level also, likely chronic and compensatory given his respiratory status. H&H stable compared to prior. Patient was noted to have a fever initially and Tylenol was given as a septic evaluation was initiated. Patient with intermittent borderline hypotension, initially felt to be due to the initiation of BiPAP, small aliquots of normal saline were given carefully given patient's description of prior coronary artery disease and congestive heart failure. I was unable to lay the patient flat due to his respiratory status to do a volume assessment under ultrasound of the patient's IVC. Patient received a total of 1 L of normal saline and was also receiving additional fluids with his antibiotics. Medication Reconcilliation Current Medication List: was personally reviewed by me Blood Pressure Screening Patient's blood pressure: Normal blood pressure Blood pressure disposition: Did not require urgent referral Consults Time Called: 035 Consulting Physician: SERIGO Munoz Returned Call: [phone] I reviewed the patient's case with SERGIO Munoz. He will evaluate the patient for further management. Impression Primary Impression: Dyspnea Additional Impressions: Hypoxia Sepsis Respiratory distress Hypercapnia Hypoalbuminemia Anemia COPD exacerbation Pneumonia Critical Care I have personally spent 45 minutes of critical care time in the direct management of this patient. This includes bedside care, interpretation of diagnostic studies, and testing, discussion with consultants, patient, and family members, and other required patient management activities. This 45 minutes is in excess of all separately billable procedures. Scribe Attestation The scribe's documentation has been prepared under my direction and personally reviewed by me in its entirety. I confirm that the note above accurately reflects all work, treatment, procedures, and medical decision making performed by me. Departure Information Dispostion Being Evaluated By Hospitalist Ann Gordon M.D. (PCP) Patient Instructions My [facility] Problem Qualifiers Primary Impression: Dyspnea Dyspnea type: shortness of breath Qualified Codes: R06.02 - Shortness of breath Additional Impressions: Sepsis Sepsis type: sepsis due to unspecified organism Qualified Codes: A41.9 - Sepsis, unspecified organism Anemia Anemia type: unspecified type Qualified Codes: D64.9 - Anemia, unspecified Pneumonia Pneumonia type: due to unspecified organism Laterality: right Lung location : lower lobe of lung Qualified Codes: J18.1 - Lobar pneumonia, unspecified organism
[2017-07-07 02:14] LABS: INR 1.2 (0.9-1.1)
[2017-07-07] MEDS ORDERED: OXGN (02:17)
[2017-07-07] MEDS ORDERED: ENOX40IN SQ (02:17)
[2017-07-07] MEDS ORDERED: GABA600T PO (02:17)
[2017-07-07] MEDS ORDERED: CHOL1000 PO (02:17)
[2017-07-07] MEDS ORDERED: PRED10TA PO (02:17)
[2017-07-07] MEDS ORDERED: CHOL1CAP95 PO (02:17)
[2017-07-07] MEDS ORDERED: FLV1 PO (02:17)
[2017-07-07] MEDS ORDERED: EFFSR150 PO (02:17)
[2017-07-07] MEDS ORDERED: TAMS0.4C38 PO (02:17)
[2017-07-07] MEDS ORDERED: PRS5 PO (02:17)
[2017-07-07] MEDS ORDERED: OXYC1CAP5 PO (02:17)
[2017-07-07] MEDS ORDERED: IPRASOL4 INH (02:17)
[2017-07-07] MEDS ORDERED: FNTTP100 TD (02:17)
[2017-07-07] MEDS ORDERED: GUAI1TAB55 PO (02:17)
[2017-07-07 02:36] LABS: ALBUMIN 2.5 gm/dl (3.4-5.0); BLOOD UREA NITROGEN 21 mg/dl (7-18); CALCIUM 9.7 mg/dl (8.5-10.1); GLUCOSE 110 mg/dl (70-99); POTASSIUM 4.6 mmol/L (3.5-5.1); SODIUM 135 mmol/L (136-145)
[2017-07-07] MEDS ORDERED: SODIUM CHLORIDE 0.9% 500ML 500 ML IV STA ×2 (02:39→04:37)
[2017-07-07 02:41] LABS: ALKALINE PHOSPHATASE 117 U/L (45-117); ALT/SGPT 18 U/L (12-78); AST/SGOT 15 U/L (15-37); TOTAL PROTEIN 7.2 gm/dl (6.4-8.2)
[2017-07-07 03:00] LABS: CARBON DIOXIDE 47 mmol/L (21-32)
[2017-07-07] MEDS ORDERED: VANCOMYCIN 1GM/270ML NSS IV STA (03:18)
[2017-07-07] MEDS ORDERED: PIPERACILLIN/TAZOBACTAM 4.5 GM/100ML D5W IV STA (03:18)
[2017-07-07] MEDS ORDERED: AZITHROMYCIN IV 500 MG in DEXTROSE 5% 250ML 250 ML IV ONE (03:30)
[2017-07-07] MEDS ORDERED: PIPERACILL/TAZOBAC CONSULT ACTIVE PRN (04:30)
[2017-07-07] MEDS ORDERED: VANCOMYCIN CONSULT ACTIVE PRN (04:30)
[2017-07-07] MEDS ORDERED: ALBUTEROL 0.083% NEBU SOLN 3 ML VIAL INH PRN (04:30)
[2017-07-07] MEDS ORDERED: MAGNESIUM HYDROXIDE SUSP 30 ML UDC PO PRN (04:45)
[2017-07-07] MEDS ORDERED: ALUMINUM/MAGNESIUM/SIMETH (MAALOX MAX) 30 ML UDC PO PRN (04:45)
[2017-07-07] MEDS ORDERED: ONDANSETRON INJ 2 MG/ML 2 ML VIAL IV PRN (04:45)
[2017-07-07] MEDS ORDERED: ACETAMINOPHEN 325 MG TAB PO PRN (04:45)
[2017-07-07] MEDS ORDERED: POLYETHYLENE (MIRALAX) 17 GM PACK PO PRN (04:45)
--- NOTE | 2017-07-07 04:50 | History and Physical ---
History & Physical Date & Time of Service: Jul 07, 2017 at 04:42 Chief Complaint: Weak/Confused/Short Of Breath Primary Care Physician: Ann Olivas M.D. 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 Multiple hospital visits due to hypoxic respiratory failure. Admitted 06/14 with hypoxia due to COPD exacerbation in addition to intractable pain due to bone metastasis. The pt presents with cough, fever and SOB. He was noted to have an 02 saturation in the mid 70s at home and sent to the hospital therefore. He denies acute CP, n/v , diarrhea or dysuria. His pain has been fairly well controlled. A CXR reveals B/L basilar infiltrates. It appears as though these are chronic although a R infiltrate may be worsening. the pt is requiring BiPAP at the time of admission. 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-dependent 3) BPH 4) Hypercapnea - denies Hx of JUAN - wears CPAP at night 5) Anemia of chronic disease - baseline Hb 8-10 6) CAD Family History CABG Cancer Social History Smoking Status: Former Smoker Drug Use: none Marital Status: Housing status: lives with significant other Occupational Status: retired Immunizations History of Influenza Vaccine: No History of Tetanus Vaccine?: No History of Pneumococcal: No History of Hepatitis B Vaccine: No Allergies Coded Allergies: No Known Allergies (Verified , 07/07/17) Home Medications Scheduled Budesonide/Formoterol Fumarate (Symbicort 160/4.5 Inhaler ), 2 PUFFS INH BID Cholecalciferol (Vitamin D3), 4,000 UNITS PO QAM Cholecalciferol (Vitamin D3), 50,000 UNITS PO WK Enoxaparin (Lovenox), 40 MG SQ QAM Fentanyl (Fentanyl), 100 MCG TD Q72 HOURS. Finasteride (Finasteride), 5 MG PO QAM Folic Acid (Folic Acid), 1 MG PO QPM Gabapentin (Neurontin), 600 MG PO TID Guaifenesin Ext Rel (Mucinex Ext Rel), 1,200 MG PO Q12 Home O2 Therapy (Oxygen), 3 LITERS NA CONTINOUS Ipratropium-Albuterol (Duoneb), 1 TREATMENT INH QID Prednisone Tab (Prednisone), 10 MG PO QAM Tamsulosin Hcl (Flomax), 0.4 MG PO HS Venlafaxine Hcl (Effexor Extended Rel), 150 MG PO QPM Scheduled PRN Albuterol Sulfate (Proventil Hfa), 2 PUFFS INH QID PRN for Wheezing Ipratropium-Albuterol (Combivent Respimat), 1 PUFFS INH TID PRN for SOB/Wheezing Oxycodone Hcl (Oxycodone Hcl), 5 MG PO Q4H PRN for Pain Review of Systems Constitutional: + fever, + chills, + weakness, + fatigue Eyes: No worsening of vision ENT: No hearing loss, No nasal symptoms Respiratory: + cough, + sputum, + wheezing, + shortness of breath, + dyspnea on exertion, + dyspnea at rest Cardiovascular: + orthopnea, No chest pain, No PND Abdomen: No pain, No nausea, No vomiting Musculoskeletal: No joint pain, No muscle pain Genitourinary - Male: No hematuria, No dysuria Neurologic: + weakness, No memory loss Psychiatric: No depression symptoms Endocrine: + fatigue Hematologic / Lymphatic: No abnormal bleeding/bruising Integumentary: No rash Allergic / Immunologic: No environmental allergies Physical Exam Vital Signs Date Time Temp Pulse Resp B/P (MAP) Pulse Ox O2 Delivery O2 Flow Rate FiO2 07/07/17 04:16 81 12 98/54 94 BiPAP 50 07/07/17 04:01 82 12 99/54 93 BiPAP 50 07/07/17 03:46 84 13 116/49 93 BiPAP 50 07/07/17 03:31 89 14 100/54 91 BiPAP 50 07/07/17 03:25 37.1 88 14 112/54 93 BiPAP 50 07/07/17 03:17 105 93 50 07/07/17 03:01 88 19 107/61 92 BiPAP 50 07/07/17 02:46 100 16 122/48 93 BiPAP 50 07/07/17 02:31 96 19 125/60 91 BiPAP 50 07/07/17 02:16 80 21 85/47 93 BiPAP 50 07/07/17 02:15 98 18 85/47 94 BiPAP 07/07/17 02:01 96 21 122/62 94 07/07/17 01:47 91 15 115/52 95 07/07/17 01:42 102 07/07/17 01:35 119 94 50 07/07/17 01:33 101 21 92/51 93 07/07/17 01:32 38.4 102 20 92/51 96 BiPAP General Appearance: WD/WN Head: normocephalic Eyes: normal inspection ENT: normal ENT inspection, pharynx normal Neck: supple, no JVD Respiratory/Chest: chest non-tender (Port in R chest - no inflammation), + pertinent finding (Crackles at right base - wheezing in R lung - reduced air at L base - otherwise clear on L - generally poor air movement) Cardiovascular: no edema, + irregularly irregular Abdomen/GI: normal bowel sounds, non tender, soft Back: normal inspection, no CVA tenderness Extremities/Musculoskelatal: normal inspection, no calf tenderness, normal capillary refill 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, no motor/sensory deficits, alert, oriented x 3 Skin: normal color, warm/dry Diagnostics Laboratory Results Results Past 24 Hours Test 07/07/17 01:00 07/07/17 02:23 07/07/17 02:31 Range/Units White Blood Count 7.15 4.8-10.8 K/uL Red Blood Count 2.99 4.7-6.1 M/uL Hemoglobin 9.7 14.0-18.0 g/dL Hematocrit 30.7 42-52 % Mean Corpuscular Volume 102.7 80-100 fL Mean Corpuscular Hemoglobin 32.4 25-34 pg Mean Corpuscular Hemoglobin Concent 31.6 32-36 g/dl Platelet Count 158 130-400 K/uL Mean Platelet Volume 8.4 7.4-10.4 fL Neutrophils (%) (Auto) 80.8 % Lymphocytes (%) (Auto) 9.9 % Monocytes (%) (Auto) 8.8 % Eosinophils (%) (Auto) 0.1 % Basophils (%) (Auto) 0.1 % Neutrophils # (Auto) 5.77 1.4-6.5 K/uL Lymphocytes # (Auto) 0.71 1.2-3.4 K/uL Monocytes # (Auto) 0.63 0.11-0.59 K/uL Eosinophils # (Auto) 0.01 0-0.5 K/uL Basophils # (Auto) 0.01 0-0.2 K/uL RDW Standard Deviation 52.0 36.4-46.3 fL RDW Coefficient of Variation 13.9 11.5-14.5 % Immature Granulocyte % (Auto) 0.3 % Immature Granulocyte # (Auto) 0.02 0.00-0.02 K/uL Prothrombin Time 12.2 9.0-12.0 SECONDS Prothromb Time International Ratio 1.2 0.9-1.1 Sodium Level 135 136-145 mmol/L Potassium Level 4.6 3.5-5.1 mmol/L Chloride Level 88 98-107 mmol/L Carbon Dioxide Level 47 21-32 mmol/L Anion Gap 0.0 3-11 mmol/L Blood Urea Nitrogen 21 7-18 mg/dl Creatinine 0.40 0.60-1.40 mg/dl Est Creatinine Clear Calc Drug Dose 192.7 ml/min Estimated GFR () 142.5 Estimated GFR (Non- 122.9 BUN/Creatinine Ratio 53.3 10-20 Random Glucose 110 70-99 mg/dl Calcium Level 9.7 8.5-10.1 mg/dl Total Bilirubin 0.3 0.2-1 mg/dl Direct Bilirubin 0.1 0-0.2 mg/dl Aspartate Amino Transf (AST/SGOT) 15 15-37 U/L Alanine Aminotransferase (ALT/SGPT) 18 12-78 U/L Alkaline Phosphatase 117 45-117 U/L Troponin I < 0.015 0-0.045 ng/ml Pro-B-Type Natriuretic Peptide 600 0-900 pg/ml Total Protein 7.2 6.4-8.2 gm/dl Albumin 2.5 3.4-5.0 gm/dl Bedside Lactic Acid Venous 0.80 0.90-1.70 mmol/L Arterial Blood pH 7.30 7.35-7.45 Arterial Blood Partial Pressure CO2 99 35-46 mmHg Arterial Blood Partial Pressure O2 82 80-95 mm/Hg Arterial Blood HCO3 47 19-24 mmol/L Arterial Blood Oxygen Saturation 92.9 90-95 % Arterial Blood Base Excess 17.4 -9-1.8 mEq/L Arterial Blood Gas Delivery FIO2 50% [place] Test POS POS Microbiology Results 07/07/17 Blood Culture, Received Pending 07/07/17 Blood Culture, Received Pending Diagnostic Radiology BL basilar infiltrates - R > L EKG Sinus - frequent PVCs - strain pattern Impression Assessment and Plan Patient is a 67 year old male with a PMH of metastatic lung adenocarcinoma, 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 Multiple hospital visits due to hypoxic respiratory failure. Admitted 06/14 with hypoxia due to COPD exacerbation in addition to intractable pain due to bone metastasis. The pt presents with cough, fever and SOB. He was noted to have an 02 saturation in the mid 70s at home and sent to the hospital therefore. He denies acute CP, n/v , diarrhea or dysuria. His pain has been fairly well controlled. A CXR reveals B/L basilar infiltrates. It appears as though these are chronic although a R infiltrate may be worsening. the pt is requiring BiPAP at the time of admission. 1) Hypoxic respiratory failure - requiring Bipap - suspect HCAP as he has a fever and productive cough - we will treat with Zosyn, Vanc, Zithro pending culture results. The pt exhibits orthopnea - he does not have significant JVD and his BP is borderline low. Diuresis should be considered if he cannot maintain his sat despite Bipap and high-flow 02. 2) Advanced COPD - wheezing is present and pt was markedly hypoxic on 3L 02 - nebs, Bipap and IV steroids provided. 3) CAD - no current evidence of ACS - trop and EKG do not support acute ischemia - does not take any related meds presently 4) Hx of DVT - cont daily Lovenox - receives 40mg daily at home 5) CA with mets and chronic pain - currently well controlled with narcotic reg and Lyric 6) Chronic anemia - Hb stable DNR - intubation OK - Lovenox prophylaxis Total time for this admit including review of labs, meds, imaging, records - discussion with pt and ER attending - 45 min Resuscitation Status VTE Prophylaxis Will order VTE Prophylaxis: Yes
[2017-07-07] MEDS ORDERED: SODIUM CHLORIDE 0.9% 1000ML 1,000 ML IV SCH (05:15)
[2017-07-07] MEDS: METHYLPREDNISOLONE IV 60 MG in SYRINGE 0 ML IV SCH ×4 (06:22→23:08)
--- NOTE | 2017-07-07 06:58 | DIAGNOSTIC IMAGING REPORT ---
CHEST ONE VIEW PORTABLE CLINICAL HISTORY: 67 years-old Male presenting with Evaluate Fever/Sepsis. TECHNIQUE: Portable upright AP view of the chest was obtained. COMPARISON: 06/14/[address] from 05/22/2017. FINDINGS: Left subclavian Mediport terminates at the superior cavoatrial junction. Atherosclerosis of aortic arch. Cardiac silhouette top normal in size. Stable prominence of the bilateral kamini. Slight interval increase in bibasilar opacities, right greater than left. Focal nodular opacities consistent with known metastatic disease. Increased small bilateral pleural effusions. No pneumothorax. Interval development of a pathologic fracture in the distal right clavicle. Degenerative changes of the spine. Upper abdomen normal. IMPRESSION: 1. Interval increase in bibasilar opacities, right greater than left. This could represent aspiration, progression of metastatic disease, edema or infection. 2. Small bilateral pleural effusions. 3. Interval development of a pathologic fracture of the distal right clavicle. The report will be called/faxed according to standard departmental protocol. Electronically signed by: Db Sibley M.D. 07/07/2017 6:56 AM Dictated Date/Time: 07/07/2017 6:54 AM
[2017-07-07] MEDS: CHECK FENTANYL PATCH PLACEMENT SCH ×3 (08:06→23:08)
[2017-07-07] MEDS: VANCOMYCIN IV 1,250 MG in SODIUM CHLORIDE 0.9% 250ML 250 ML IV SCH ×3 (08:07→23:08)
[2017-07-07] MEDS: GABAPENTIN 600 MG TAB PO SCH ×3 (08:08→19:55)
[2017-07-07] MEDS: CHOLECALCIFEROL 1000 INTER.UNIT TAB PO SCH (08:08)
[2017-07-07] MEDS: FINASTERIDE 5 MG TAB PO SCH (08:09)
[2017-07-07] MEDS: GUAIFENESIN 600 MG TABCR PO SCH ×2 (08:09→19:54)
[2017-07-07] MEDS: ENOXAPARIN 40 MG/0.4 ML SYR SQ SCH (08:10)
[2017-07-07] MEDS ORDERED: ALBUT/IPRATROP 3MG/0.5MG NEB 3 ML VIAL INH SCH (09:00)
--- NOTE | 2017-07-07 09:39 | Pharmacy Progress Note ---
Pharmacy Antibiotic Consult Date of Service: Jul 07, 2017. Pharmacy Dosing Scope Pharmacy is consulted to initiate vancomycin and Zosyn IV dosing therapy, order appropriate labs and adjust drug dose/frequency. Subjective The patient is a 67 year old male admitted on Jul 07, 2017 at 04:40 with possible HCAP. History of metastatic lung Ca, COPD, recent hospital admission. Objective Height (Feet): 5 Height (Inches): 7.00 Weight (Kilograms): 82.600 Lab Results (24hrs): Test 07/07/17 01:00 07/07/17 02:23 07/07/17 02:31 07/07/17 05:07 White Blood Count 7.15 K/uL (4.8-10.8) Red Blood Count 2.99 M/uL (4.7-6.1) Hemoglobin 9.7 g/dL (14.0-18.0) Hematocrit 30.7 % (42-52) Mean Corpuscular Volume 102.7 fL (80-100) Mean Corpuscular Hemoglobin 32.4 pg (25-34) Mean Corpuscular Hemoglobin Concent 31.6 g/dl (32-36) Platelet Count 158 K/uL (130-400) Mean Platelet Volume 8.4 fL (7.4-10.4) Neutrophils (%) (Auto) 80.8 % Lymphocytes (%) (Auto) 9.9 % Monocytes (%) (Auto) 8.8 % Eosinophils (%) (Auto) 0.1 % Basophils (%) (Auto) 0.1 % Neutrophils # (Auto) 5.77 K/uL (1.4-6.5) Lymphocytes # (Auto) 0.71 K/uL (1.2-3.4) Monocytes # (Auto) 0.63 K/uL (0.11-0.59) Eosinophils # (Auto) 0.01 K/uL (0-0.5) Basophils # (Auto) 0.01 K/uL (0-0.2) RDW Standard Deviation 52.0 fL (36.4-46.3) RDW Coefficient of Variation 13.9 % (11.5-14.5) Immature Granulocyte % (Auto) 0.3 % Immature Granulocyte # (Auto) 0.02 K/uL (0.00-0.02) Prothrombin Time 12.2 SECONDS (9.0-12.0) Prothromb Time International Ratio 1.2 (0.9-1.1) Sodium Level 135 mmol/L (136-145) Potassium Level 4.6 mmol/L (3.5-5.1) Chloride Level 88 mmol/L (98-107) Carbon Dioxide Level 47 mmol/L (21-32) Anion Gap 0.0 mmol/L (3-11) Blood Urea Nitrogen 21 mg/dl (7-18) Creatinine 0.40 mg/dl (0.60-1.40) Est Creatinine Clear Calc Drug Dose 192.7 ml/min Estimated GFR () 142.5 Estimated GFR (Non- 122.9 BUN/Creatinine Ratio 53.3 (10-20) Random Glucose 110 mg/dl (70-99) Calcium Level 9.7 mg/dl (8.5-10.1) Total Bilirubin 0.3 mg/dl (0.2-1) Direct Bilirubin 0.1 mg/dl (0-0.2) Aspartate Amino Transf (AST/SGOT) 15 U/L (15-37) Alanine Aminotransferase (ALT/SGPT) 18 U/L (12-78) Alkaline Phosphatase 117 U/L (45-117) Troponin I < 0.015 ng/ml (0-0.045) Pro-B-Type Natriuretic Peptide 600 pg/ml (0-900) Total Protein 7.2 gm/dl (6.4-8.2) Albumin 2.5 gm/dl (3.4-5.0) Bedside Lactic Acid Venous 0.80 mmol/L (0.90-1.70) Arterial Blood pH 7.30 (7.35-7.45) 7.30 (7.35-7.45) Arterial Blood Partial Pressure CO2 99 mmHg (35-46) 99 mmHg (35-46) Arterial Blood Partial Pressure O2 82 mm/Hg (80-95) 90 mm/Hg (80-95) Arterial Blood HCO3 47 mmol/L (19-24) 47 mmol/L (19-24) Arterial Blood Oxygen Saturation 92.9 % (90-95) 94.2 % (90-95) Arterial Blood Base Excess 17.4 mEq/L (-9-1.8) 16.9 mEq/L (-9-1.8) Arterial Blood Gas Delivery FIO2 50% 50% [place] Test POS (POS) POS (POS) Micro Results: 07/07 blood x2 pending 07/07 sputum pending Recent Pertinent Medications Item Value Date Time Azithromycin 500 255 ml @ 125 mls/hr 07/08/17 0600 mg/Dextrose Q24H/IV Piperacillin Sod/ 120 ml @ 30 mls/hr 07/07/17 1000 Tazobactam Sod Q8H/IV 4.5 gm/Dextrose Vancomycin HCl 275 ml @ 125 mls/hr 07/07/17 0800 1250 mg/Sodium Q8H/IV 07/07/17 0807 Chloride Azithromycin 500 255 ml @ 125 mls/hr 07/07/17 0330 mg/Dextrose ONE ONCE/IV 07/07/17 0418 Vancomycin HCl 1 gm 07/07/17 0318 (Vancomycin 1gm/ NOW STAT/IV 07/07/17 0333 270ml Nss) Piperacillin Sod/ 4.5 gm 07/07/17 0318 Tazobactam Sod NOW STAT/IV 07/07/17 0352 (Zosyn Iv) Assessment & Plan Modified loading dose: vancomycin 1000 mg IV X 1 dose (given in ED) then: vancomycin 1250 mg IV every 8 hours. Goal peak level estimate: between 25-40 mcg/mL. Goal trough level estimate: between 15-20 mcg/mL. Trough has been ordered for: 07/08/17 before 0800 dose. Zosyn 4.5 Gm IV over 30 minutes, then 4.5 Gm (infused over 4 hr) every 8 hours, for CrCl greater than 20 ml/min. Pharmacy will continue to follow and will adjust dose/frequency as necessary. Thank you
[2017-07-07 11:36] LABS: INFLUENZA A PCR POS for Influ A (NEG); INFLUENZA B PCR Neg for Influ B (NEG)
[2017-07-07] MEDS: PIPERACILL/TAZOBAC IV 4.5 GM in DEXTROSE 5% 100ML 100 ML IV SCH ×2 (11:41→19:13)
[2017-07-07] MEDS ORDERED: OSELTAMIVIR PHOSPHATE 75 MG CAP PO STA (12:44)
[2017-07-07] MEDS: ALBUT/IPRATROP 3MG/0.5MG NEB 3 ML VIAL INH SCH ×4 (14:12→23:12)
[2017-07-07] MEDS: VENLAFAXINE HCL XR 150 MG CAPXR PO SCH (19:54)
[2017-07-07] MEDS: TAMSULOSIN HCL 0.4 MG CAP PO SCH (19:54)
[2017-07-07] MEDS: OSELTAMIVIR PHOSPHATE 75 MG CAP PO SCH (19:55)
[2017-07-07] MEDS: OXYCODONE HCL IR 5 MG TAB (IMMEDIATE RELEASE) PO PRN (19:57)
--- NOTE | 2017-07-07 23:34 | Progress Note ---
Progress Note Date of Service Jul 07, 2017. Progress Note late entry for visit from earlier this AM - Pt noted to have fever overnight. PCR flu checked and patient found to have flu A infection. Started on tamiflu BID. Exam - gen - slightly confused neck - no JVD heart - RRR lungs - diffuse wheezes, course BS b/l, rales on right, no increased wob abd - soft ext - no edema Imp: acute/chronic hypercarbic/hypoxic respiratory failure 2nd to b/l pneumonia and flu A infection as well as COPD exacerbation Plan: tamiflu, broad-spectrum IV abx, IV steroids, supportive care; droplet isolation spoke with pt's significant other; gave update Awais Griffin MD
[2017-07-08] VITALS (14 sets, daily range): BP systolic 96–119; BP diastolic 47–69; PULSE 65–88; TEMP 36.5–36.9; O2SAT 82–99
[2017-07-08] MEDS: PIPERACILL/TAZOBAC IV 4.5 GM in DEXTROSE 5% 100ML 100 ML IV SCH ×3 (02:42→17:47)
[2017-07-08] MEDS: ALBUT/IPRATROP 3MG/0.5MG NEB 3 ML VIAL INH SCH ×6 (03:34→23:10)
[2017-07-08] MEDS: METHYLPREDNISOLONE IV 60 MG in SYRINGE 0 ML IV SCH ×3 (05:25→17:47)
[2017-07-08] MEDS ORDERED: AZITHROMYCIN IV 500 MG in DEXTROSE 5% 250ML 250 ML IV SCH (06:00)
[2017-07-08] MEDS ORDERED: VANCOMYCIN TROUGH ONE (07:30)
[2017-07-08] MEDS: VANCOMYCIN IV 1,250 MG in SODIUM CHLORIDE 0.9% 250ML 250 ML IV SCH ×3 (07:35→23:37)
[2017-07-08] MEDS: OSELTAMIVIR PHOSPHATE 75 MG CAP PO SCH ×2 (07:35→20:19)
[2017-07-08] MEDS: GUAIFENESIN 600 MG TABCR PO SCH ×2 (07:35→20:20)
[2017-07-08] MEDS: GABAPENTIN 600 MG TAB PO SCH ×3 (07:35→20:20)
[2017-07-08] MEDS: CHOLECALCIFEROL 1000 INTER.UNIT TAB PO SCH (07:36)
[2017-07-08] MEDS: FINASTERIDE 5 MG TAB PO SCH (07:36)
[2017-07-08] MEDS: ENOXAPARIN 40 MG/0.4 ML SYR SQ SCH (07:36)
[2017-07-08] MEDS: CHECK FENTANYL PATCH PLACEMENT SCH ×3 (07:37→23:40)
[2017-07-08 07:39] LABS: HEMATOCRIT 25.1 % (42-52); HEMOGLOBIN 7.9 g/dL (14.0-18.0); MEAN CELL VOLUME 101.6 fL (80-100); MEAN CORPUSCULAR HGB CONC 31.5 g/dl (32-36); MEAN PLATELET VOLUME 8.1 fL (7.4-10.4); PLATELET COUNT 105 K/uL (130-400); RED CELL DISTRIBUTION WIDTH CV 13.9 % (11.5-14.5); RED CELL DISTRIBUTION WIDTH SD 51.8 fL (36.4-46.3); WHITE BLOOD COUNT 4.65 K/uL (4.8-10.8)
[2017-07-08] MEDS: OXYCODONE HCL IR 5 MG TAB (IMMEDIATE RELEASE) PO PRN ×3 (07:47→20:21)
[2017-07-08 08:16] LABS: BLOOD UREA NITROGEN 15 mg/dl (7-18); CARBON DIOXIDE 44 mmol/L (21-32); CREATININE 0.33 mg/dl (0.60-1.40); GLUCOSE 160 mg/dl (70-99); SODIUM 136 mmol/L (136-145)
--- NOTE | 2017-07-08 10:03 | Pharmacy Progress Note ---
Pharmacy Antibiotic Prog Note Date of Service Jul 08, 2017. Subjective The patient is currently receiving vancomycin 1250 mg IV every 8 hours,and Zosyn 4.5Gm extended infusion q8h. The patient is currently on day # 2 of 7 of IV therapy. Objective Height (Feet): 5 Height (Inches): 7.00 Weight (Kilograms): 82.500 Levels: Item Value Date Time Vancomycin Level Trough 14.9 mcg/ml 07/08/17 0723 Previous dose hung 07/07 @0678. Lab Results (24hrs): Test 07/07/17 10:14 07/08/17 07:23 Urine Color DK YELLOW Urine Appearance CLEAR (CLEAR) Urine pH 5.5 (4.5-7.5) Urine Specific [place] 1.031 (1.000-1.030) Urine Protein 1+ (NEG) Urine Glucose (UA) NEG (NEG) Urine Ketones NEG (NEG) Urine Occult Blood NEG (NEG) Urine Nitrite NEG (NEG) Urine Bilirubin NEG (NEG) Urine Urobilinogen NEG (NEG) Urine Leukocyte Esterase NEG (NEG) Urine WBC (Auto) 1-5 /hpf (0-5) Urine RBC (Auto) 0-4 /hpf (0-4) Urine Hyaline Casts (Auto) 5-10 /lpf (0-5) Urine Epithelial Cells (Auto) >30 /lpf (0-5) Urine Bacteria (Auto) NEG (NEG) Urine Renal Epithelial Cells 0-5 /lpf (0-5) Urine Pathogenic Casts 0-3 GRANULAR CASTS /lpf (0) White Blood Count 4.65 K/uL (4.8-10.8) Red Blood Count 2.47 M/uL (4.7-6.1) Hemoglobin 7.9 g/dL (14.0-18.0) Hematocrit 25.1 % (42-52) Mean Corpuscular Volume 101.6 fL (80-100) Mean Corpuscular Hemoglobin 32.0 pg (25-34) Mean Corpuscular Hemoglobin Concent 31.5 g/dl (32-36) RDW Standard Deviation 51.8 fL (36.4-46.3) RDW Coefficient of Variation 13.9 % (11.5-14.5) Platelet Count 105 K/uL (130-400) Mean Platelet Volume 8.1 fL (7.4-10.4) Sodium Level 136 mmol/L (136-145) Potassium Level 4.0 mmol/L (3.5-5.1) Chloride Level 91 mmol/L (98-107) Carbon Dioxide Level 44 mmol/L (21-32) Anion Gap 1.0 mmol/L (3-11) Blood Urea Nitrogen 15 mg/dl (7-18) Creatinine 0.33 mg/dl (0.60-1.40) Est Creatinine Clear Calc Drug Dose 223.3 ml/min Estimated GFR () > 150.0 Estimated GFR (Non- 133.0 BUN/Creatinine Ratio 45.3 (10-20) Random Glucose 160 mg/dl (70-99) Calcium Level 9.0 mg/dl (8.5-10.1) Vancomycin Level Trough 14.9 mcg/ml (SEE COMMENT) Micro Results: 07/07 serology (+) influenza A 07/07 blood x2 NGTD 07/07 sputum pending Recent Pertinent Medications Item Value Date Time Azithromycin 500 255 ml @ 125 mls/hr 07/08/17 0600 mg/Dextrose Q24H/IV 07/08/17 0525 Oseltamivir 75 mg 07/07/17 2100 Phosphate BID/PO 07/08/17 0735 (Tamiflu Cap) Oseltamivir 75 mg 07/07/17 1244 Phosphate NOW STAT/PO 07/07/17 1409 (Tamiflu Cap) Piperacillin Sod/ 120 ml @ 30 mls/hr 07/07/17 1000 Tazobactam Sod Q8H/IV 07/08/17 0242 4.5 gm/Dextrose Vancomycin HCl 275 ml @ 125 mls/hr 07/07/17 0800 1250 mg/Sodium Q8H/IV 07/08/17 0735 Chloride Assessment & Plan This drug level is: slightly Subtherapeutic, however previous dose was hung a bit early. Continue vancomycin 1250 mg IV every 8 hours. Goal trough level estimate: between 15-20 mcg/mL. Trough will be rechecked in a few days if stable, to monitor for accumulation. Continue Zosyn 4.5 Gm V q8h for unchanged renal function. Pharmacy will continue to follow and will adjust dose/frequency as necessary. Thank you
[2017-07-08] MEDS ORDERED: FENTANYL 12 MCG/HR TDSY TD SCH (14:30)
[2017-07-08] MEDS ORDERED: CHECK FENTANYL PATCH PLACEMENT SCH (16:00)
[2017-07-08] MEDS: TAMSULOSIN HCL 0.4 MG CAP PO SCH (20:18)
[2017-07-08] MEDS: VENLAFAXINE HCL XR 150 MG CAPXR PO SCH (20:20)
--- NOTE | 2017-07-08 21:49 | Progress Note ---
Subjective Date of Service: Jul 08, 2017. Subjective Pt evaluation today including: conversation w/ patient, conversation w/ family (Julita, significant other), physical exam, chart review, lab review, conversation w/ [employer] consultant (heme/onc, social work), review of inpatient medication list Pain: right shoulder even despite fentanyl patch & oxy prn PO Intake: fair Voiding: no voiding problems patient very weak - has not been out of bed since hospital admission constant cough did not use BIPAP last pm he asks about hospice and "what do I think?" Julita confirms that just prior to admission he could not get up from the commode without significant help/assistance Julita also states she is worried to "leave him alone" at any time at home Problem List Medical Problems: (1) Acute bronchitis Status: Acute (2) Acute on chronic respiratory failure with hypoxia Status: Acute (3) Acute respiratory failure with hypoxia and hypercapnia Status: Acute (4) Acute respiratory failure with hypoxia and hypercarbia Status: Acute (5) Anemia Status: Acute (6) Bilateral pulmonary embolism Status: Acute (7) Bronchitis Status: Acute (8) CO2 narcosis Status: Acute (9) Dehydration Status: Acute (10) Dehydration Status: Acute (11) Dyspnea Status: Acute (12) Dysuria Status: Acute (13) Generalized weakness Status: Acute (14) Hematuria Status: Acute (15) Hematuria Status: Acute (16) Hematuria Status: Acute (17) Hypotension Status: Acute (18) Hypotension Status: Acute (19) Hypoxia Status: Chronic (20) Hypoxia Status: Acute (21) Hypoxia Status: Acute (22) Hypoxia Status: Acute (23) Hypoxia Status: Acute (24) Left rib fracture Status: Acute (25) Lung cancer Status: Acute (26) Mediastinal lymphadenopathy Status: Acute (27) Metastatic lung cancer (metastasis from lung to other site) Status: Acute (28) Metastatic lung cancer (metastasis from lung to other site) Status: Chronic (29) Neutropenia Status: Acute (30) Neutropenia Status: Acute (31) Non-traumatic compression fracture of T5 thoracic vertebra Status: Acute (32) Osteolytic 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 Status: Acute (33) Pathological fracture of rib of right side Status: Acute (34) Pulmonary nodules Status: Acute (35) Right shoulder pain Status: Acute (36) Sepsis Status: Acute (37) SVT (supraventricular tachycardia) Status: Acute (38) Thrombocytopenia Status: Acute (39) Weakness Status: Acute Review of Systems Constitutional: + fatigue, No fever, No chills Respiratory: + cough, + wheezing, + shortness of breath, + dyspnea on exertion Cardiac: No chest pain, No orthopnea Abdomen: No pain Musculoskeletal: + joint pain (right shoulder) Objective Vital Signs Date Time Temp Pulse Resp B/P (MAP) Pulse Ox O2 Delivery O2 Flow Rate FiO2 07/08/17 19:36 76 18 95 Mask 3.5 07/08/17 17:21 36.7 65 20 119/69 (86) 98 07/08/17 16:00 Nasal Cannula 4.0 07/08/17 15:23 68 20 95 Mask 3.5 07/08/17 12:20 36.9 75 18 96/62 (73) 96 07/08/17 12:00 Room Air 4.0 07/08/17 11:23 72 20 92 Nasal Cannula 3.5 07/08/17 08:00 Room Air 4.0 07/08/17 07:58 36.5 86 16 100/47 (64) 90 07/08/17 07:42 88 20 94 Mask 3.0 07/08/17 04:00 Oxymask 4.0 07/08/17 03:48 36.5 79 22 110/56 (74) 96 Oxymask 4.0 07/08/17 03:34 76 20 95 Mask 5.0 07/08/17 02:00 99 Oxymask 6.0 07/08/17 01:01 91 Oxymask 6.0 07/08/17 01:00 18 82 Nasal Cannula 3.0 07/08/17 00:46 36.6 85 21 104/49 (67) 86 Nasal Cannula 3.0 07/08/17 00:01 Nasal Cannula 4.0 07/07/17 23:12 73 20 93 Nasal Cannula 3.0 Physical Exam General Appearance: no apparent distress, + pertinent finding (coughing, chronically ill appearing) ENT: pharynx normal Neck: no JVD Respiratory/Chest: + crackles (b/l), + rhonchi, + wheezing, + pertinent finding (mild tachypnea but no retractions) Cardiovascular: regular rate, rhythm, no gallop, no murmur Abdomen: normal bowel sounds, non tender, soft, no organomegaly, + distended ( minimal) Extremities: no pedal edema 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: alert, oriented x 3 Skin: + pallor Laboratory Results Last 24 Hours Test 07/08/17 07:23 07/08/17 20:34 White Blood Count 4.65 K/uL Red Blood Count 2.47 M/uL Hemoglobin 7.9 g/dL Hematocrit 25.1 % Mean Corpuscular Volume 101.6 fL Mean Corpuscular Hemoglobin 32.0 pg Mean Corpuscular Hemoglobin Concent 31.5 g/dl RDW Standard Deviation 51.8 fL RDW Coefficient of Variation 13.9 % Platelet Count 105 K/uL Mean Platelet Volume 8.1 fL Sodium Level 136 mmol/L Potassium Level 4.0 mmol/L Chloride Level 91 mmol/L Carbon Dioxide Level 44 mmol/L Anion Gap 1.0 mmol/L Blood Urea Nitrogen 15 mg/dl Creatinine 0.33 mg/dl Est Creatinine Clear Calc Drug Dose 223.3 ml/min Estimated GFR () > 150.0 Estimated GFR (Non- 133.0 BUN/Creatinine Ratio 45.3 Random Glucose 160 mg/dl Calcium Level 9.0 mg/dl Vancomycin Level Trough 14.9 mcg/ml Bedside Glucose 176 mg/dl Assessment and Plan 67yo male - 1. acute/chronic hypercarbic/hypoxic respiratory failure - multifactorial including influenza A infection, recurrent pneumonia, end-stage COPD with probable exacerbation, and progressive lung cancer. Slight improvement from yesterday. 2. influenza A infection - day #2/5 tamiflu. Supportive care. 3. COPD with exacerbation - reduce steroids to q8h dosing. Cont nebs, inhalers , O2 (O2 sat goal 88-92%), night-time trilogy, etc. Julita did bring his home trilogy unit. She wants to ensure it is working properly. 4. progressive stage 4 lung cancer - I have asked Dr. Biggs to pay Mr. Hagan a visit. He is doing very poorly overall and his functional status has declined significantly since the last time I cared for. We spent 25+ minutes discussing the above issues and hospice. Strongly recommended hospice. Discussed with them that his frequent readmissions will simply continue and that preventing recurrent COPD flares, pneumonias, etc will be difficult if not impossible. Social work was asked to speak with him and Julita re: options. Strongly consider re-consulting palliative care. 5. recurrent b/l pneumonia - have to treat for gram negative etiology and MRSA in light of frequent healthcare exposures. Cont zosyn/vanco/zithromax; narrow if possible. 6. hyperglycemia - likely 2nd to stress & steroids; check BSG ac/hs and institute insulin if they trend up. 7. DVT proph - lovenox. 8. pancytopenia - 2nd to influenza? During this year's flu season I have seen other cases of flu with bone marrow suppression. Baseline Hb is about 8-9. Repeat CBC in am. Consider Tx only if Hb<7.5. 9. right pathological clavicular fracture - sling. Increase fentanyl patch to 112mcg q72h. Oxycodone prn. 10. constipation - bowel regimen with miralax + senna. 11. BPH - flomax. Voiding fine. 12. CAD - no ischemic sx's at this time. 13. folic acid def previously - cont folate supplementation. 14. nonsustained V-tach - patient had a single, 10-beat run of such yesterday. NO symptoms. K wnl. Check mag level. patient is partial code (ok with intubation but does not want chest compressions /cardioversion) need to address - if he ever ended up on vent he may not come off in light of multifactorial pulmonary processes (lung ca, COPD, flu, pneumonia, etc) ok to transfer to [facility] at his request social work to help with disposition - without 24/7 care at home it would be unsafe for him to return there Continued [facility] stay due to: abnormal vital signs, inadequate oral pain control , ambulation difficulties, multiple IV medications needed Discharge planning: uncertain
[2017-07-09] VITALS (10 sets, daily range): BP systolic 99–135; BP diastolic 42–76; PULSE 61–82; TEMP 36.5–37.2; O2SAT 91–99
[2017-07-09] MEDS: OXYCODONE HCL IR 5 MG TAB (IMMEDIATE RELEASE) PO PRN ×2 (00:28→08:59)
[2017-07-09] MEDS: PIPERACILL/TAZOBAC IV 4.5 GM in DEXTROSE 5% 100ML 100 ML IV SCH ×3 (02:16→18:14)
[2017-07-09] MEDS: METHYLPREDNISOLONE IV 60 MG in SYRINGE 0 ML IV SCH ×3 (02:16→18:13)
[2017-07-09] MEDS: ALBUT/IPRATROP 3MG/0.5MG NEB 3 ML VIAL INH SCH ×6 (03:14→23:15)
[2017-07-09 05:55] LABS: HEMATOCRIT 26.6 % (42-52); HEMOGLOBIN 8.3 g/dL (14.0-18.0); IG# 0.01 K/uL (0.00-0.02); LYMPH % 2.8 %; LYMPH ABS # 0.19 K/uL (1.2-3.4); MEAN CELL VOLUME 103.1 fL (80-100); MEAN CORPUSCULAR HEMOGLOBIN 32.2 pg (25-34); MEAN CORPUSCULAR HGB CONC 31.2 g/dl (32-36); MEAN PLATELET VOLUME 8.1 fL (7.4-10.4); NEUT % 91.1 %; PLATELET COUNT 127 K/uL (130-400); RED CELL DISTRIBUTION WIDTH SD 52.8 fL (36.4-46.3)
[2017-07-09 06:45] LABS: CALCIUM 9.2 mg/dl (8.5-10.1); CREATININE 0.36 mg/dl (0.60-1.40)
[2017-07-09] MEDS ORDERED: FENTANYL PATCH REMOVE & WASTE SCH (07:59)
[2017-07-09] MEDS ORDERED: FENTANYL 100 MCG/HR TDSY TD SCH (08:00)
[2017-07-09] MEDS: ENOXAPARIN 40 MG/0.4 ML SYR SQ SCH (08:00)
[2017-07-09] MEDS: VANCOMYCIN IV 1,250 MG in SODIUM CHLORIDE 0.9% 250ML 250 ML IV SCH ×2 (08:50→16:55)
[2017-07-09] MEDS: FENTANYL 100 MCG/HR TDSY TD SCH (08:51)
[2017-07-09] MEDS: FENTANYL PATCH REMOVE & WASTE SCH (08:52)
[2017-07-09] MEDS: FENTANYL 12 MCG/HR TDSY TD SCH (08:52)
[2017-07-09] MEDS: CHECK FENTANYL PATCH PLACEMENT SCH ×2 (08:53→16:56)
[2017-07-09] MEDS: FINASTERIDE 5 MG TAB PO SCH (08:54)
[2017-07-09] MEDS: GABAPENTIN 600 MG TAB PO SCH ×3 (08:54→21:20)
[2017-07-09] MEDS: POLYETHYLENE (MIRALAX) 17 GM PACK PO SCH (08:54)
[2017-07-09] MEDS: OSELTAMIVIR PHOSPHATE 75 MG CAP PO SCH ×2 (08:55→21:19)
[2017-07-09] MEDS: CHOLECALCIFEROL 1000 INTER.UNIT TAB PO SCH (08:56)
[2017-07-09] MEDS: SENNA 8.6 MG TAB PO SCH (08:57)
[2017-07-09] MEDS: AZITHROMYCIN 250 MG TAB PO SCH (08:57)
[2017-07-09] MEDS: GUAIFENESIN 600 MG TABCR PO SCH ×2 (08:58→21:20)
[2017-07-09] MEDS ORDERED: MAGNESIUM SULFATE 1GM / D5W 1 GM in PREMIXED IN D5W 100 ML IV ONE (09:30)
[2017-07-09] MEDS ORDERED: MoRPHine SULFATE 5 MG/0.25 ML UDP PO PRN (13:30)
--- NOTE | 2017-07-09 15:58 | Palliative Care Consultation ---
Consultation Date of Consultation: Jul 09, 2017. Requesting Physician: Dr. Pfeiffer Attending Physician: Dr. Pfeiffer Reason for Consultation: Goals of care, hospice History of Present Illness This 67 year old male patient with PMH severe COPD and metastatic adenocarcinoma of the lung, as well as others listed below, presented to the hospital with Influenza A and bilateral pneumonia. Patient has had several readmissions recently, with most recent one being for new metastatic bony lesion to right shoulder. 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 He was discharged to home. Palliative care has been involved with this patient on several occasions. Previously, he was not ready for hospice care and planned to get stronger/better so he could continue to receive palliative chemo. However, he was open to talking about end of life issues and hospice care. This admission , patient states he is ready to pursue hospice and is requesting to speak with palliative care again. I met with the patient in room 415. He appears weaker and deconditioned than previous admission. He still has pain in right shoulder but does have some range of motion after the radiation treatments. He rates his pain as 4/10 which is says is "okay." Patient confirmed that he wants to pursue hospice care and is accepting of his prognosis. He is just unsure of where he will go after discharge. We will have family meeting tomorrow afternoon, his family is to call me when they've arrived. See plan below. I also spoke with his significant other, Julita, on the phone. Past Medical/Surgical History Medical History: Metastatic lung adenocarcinoma- mets to bone, liver, lung Advanced/severe COPD CAD Chronic respiratory failure on 3LNC at home PE Sepsis Family History Father- cancer heart disease Social History Smoking Status: Former Smoker History of Alcohol Use: No Drug Use: none Marital Status: Occupation Status: retired Has significant other, Julita, and brother, Ming Hagan, who share POA. Review of Systems Constitutional: + weakness ENT: No trouble swallowing Respiratory: + cough, + shortness of breath, + dyspnea on exertion Cardiac: No chest pain, No edema Abdomen: No pain, No nausea, No vomiting Musculoskeletal: + problem reported (right shoulder pain) Psychiatric: No depression symptoms, No anxiety Allergies Coded Allergies: No Known Allergies (Verified , 07/07/17) Medications Current Inpatient Medications Medications (Trade) Dose Ordered Sig/Abbi Route Start Time Stop Time Status Last Admin Dose Admin Piperacillin Sod/ Tazobactam Sod 4.5 gm/Dextrose 120 ml @ 30 mls/hr Q8H IV 07/07/17 10:00 07/14/17 09:59 07/09/17 10:23 30 MLS/HR Miscellaneous Information (Consult) 1 ea UD PRN N/A 07/07/17 04:30 08/06/17 04:29 Vancomycin HCl 1250 mg/Sodium Chloride 275 ml @ 125 mls/hr Q8H IV 07/07/17 08:00 07/14/17 07:59 07/09/17 08:50 125 MLS/HR Miscellaneous Information (Consult) 1 ea UD PRN N/A 07/07/17 04:30 08/06/17 04:29 Cholecalciferol (Vitamin D Tab) 4,000 inter.unit QAM PO 07/07/17 09:00 08/06/17 08:59 07/09/17 08:56 4,000 INTER.UNIT Enoxaparin Sodium (Lovenox Inj) 40 mg QAM SQ 07/07/17 09:00 08/06/17 08:59 07/09/17 08:00 40 MG Finasteride (Proscar Tab) 5 mg QAM PO 07/07/17 09:00 08/06/17 08:59 07/09/17 08:54 5 MG Folic Acid (Folvite Tab) 1 mg QPM PO 07/07/17 21:00 08/06/17 20:59 07/08/17 20:18 1 MG Gabapentin (Neurontin Tab) 600 mg TID PO 07/07/17 09:00 08/06/17 08:59 07/09/17 14:14 600 MG Guaifenesin (Mucinex Contr Rel Tab) 1,200 mg Q12H PO 07/07/17 09:00 08/06/17 08:59 07/09/17 08:58 1,200 MG Tamsulosin HCl (Flomax Cap) 0.4 mg HS PO 07/07/17 21:00 08/06/17 20:59 07/08/17 20:18 0.4 MG Venlafaxine HCl (effeXOR EXTENDED REL CAP) 150 mg QPM PO 07/07/17 21:00 08/06/17 20:59 07/08/17 20:20 150 MG Oxycodone HCl (Roxicodone Immediate Rel Tab) 5 mg Q4H PRN PO 07/07/17 04:30 08/06/17 04:29 07/09/17 08:59 5 MG Albuterol Sulfate (Ventolin 0.083% 2.5MG/3ML Neb) 2.5 mg Q4H PRN INH 07/07/17 04:30 08/06/17 04:29 Acetaminophen (Tylenol Tab) 650 mg Q4H PRN PO 07/07/17 04:45 08/06/17 04:44 Al Hydrox/Mg Hydrox/Simethicone (Maalox Max Susp) 15 ml Q4H PRN PO 07/07/17 04:45 08/06/17 04:44 Magnesium Hydroxide (Milk Of Magnesia Susp) 30 ml Q12H PRN PO 07/07/17 04:45 08/06/17 04:44 Ondansetron HCl (Zofran Inj) 4 mg Q6H PRN IV 07/07/17 04:45 08/06/17 04:44 Oseltamivir Phosphate (Tamiflu Cap) 75 mg BID PO 07/07/17 21:00 07/11/17 21:01 07/09/17 08:55 75 MG Albuterol/ Ipratropium (Duoneb) 3 ml Q4R INH 07/07/17 14:00 08/06/17 08:59 07/09/17 15:27 3 ML Azithromycin (Zithromax Tab) 500 mg DAILY PO 07/09/17 08:00 07/14/17 08:59 07/09/17 08:57 500 MG Methylprednisolone Sodium Succinate 60 mg/Syringe 0.96 ml @ 1.5 mls/min Q8H IV 07/09/17 02:00 08/06/17 05:59 07/09/17 09:50 1.5 MLS/MIN Polyethylene (Miralax Powder Packet) 17 gm DAILY PO 07/09/17 08:00 08/06/17 04:44 07/09/17 08:54 17 GM Senna (Senokot Tab) 17.2 mg QAM PO 07/09/17 08:00 08/08/17 07:59 07/09/17 08:57 17.2 MG Heparin Sodium (Porcine) (Heparin 100 Unit/ml 5ml Flush) 5 ml PRN PRN IV 07/09/17 02:30 08/08/17 02:29 07/09/17 05:33 5 ML Fentanyl (Duragesic Patch) 100 mcg Q3D@0800 TD 07/09/17 08:00 07/23/17 07:59 07/09/17 08:51 100 MCG Miscellaneous (Fentanyl Patch Remove & Waste) 1 ea Q3D@0759 N/A 07/09/17 07:59 08/08/17 07:58 07/09/17 08:52 1 EA Miscellaneous Information (Check Fentanyl Patch Placement) 1 ea QS N/A 07/09/17 08:00 08/08/17 07:59 07/09/17 08:53 1 EA Fentanyl (Duragesic Patch) 12 mcg Q3D@0800 TD 07/09/17 08:00 07/23/17 07:59 07/09/17 08:52 12 MCG Morphine Sulfate (Roxanol Oral Soln) 10 mg Q2H PRN PO 07/09/17 15:45 07/23/17 13:29 Physical Exam Date Time Temp Pulse Resp B/P (MAP) Pulse Ox O2 Delivery O2 Flow Rate FiO2 07/09/17 15:27 75 18 93 Nasal Cannula 4.0 07/09/17 14:20 37.2 61 20 128/58 (81) 98 Nasal Cannula 5.0 07/09/17 11:25 65 18 91 BiPAP/CPAP 15.0 07/09/17 08:20 Nasal Cannula 5.0 07/09/17 07:50 99 Nasal Cannula 4.0 40 07/09/17 07:42 36.5 66 18 131/76 (94) 99 Nasal Cannula 4.0 07/09/17 07:21 71 18 95 Nasal Cannula 4.0 07/09/17 00:30 36.7 79 19 99/42 (61) 91 Nasal Cannula 3.0 07/09/17 00:00 Nasal Cannula 4.0 07/08/17 23:10 75 18 96 Mask 4.0 07/08/17 19:36 76 18 95 Mask 3.5 07/08/17 17:21 36.7 65 20 119/69 (86) 98 07/08/17 16:00 Nasal Cannula 4.0 General Appearance: no apparent distress, + pertinent finding (appears chronically ill and deconditioned) ENT: hearing grossly normal Neck: supple, no JVD Respiratory: no respiratory distress, no accessory muscle use, + decreased breath sounds, + rhonchi (coarse upper airways) Cardiovascular: regular rate, rhythm, no edema, + normal peripheral pulses Abdomen: normal bowel sounds, non tender, soft 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: alert, normal mood/affect, oriented x 3 Laboratory Results Last 24 Hours Test 07/08/17 20:34 07/09/17 05:35 Bedside Glucose 176 mg/dl White Blood Count 6.70 K/uL Red Blood Count 2.58 M/uL Hemoglobin 8.3 g/dL Hematocrit 26.6 % Mean Corpuscular Volume 103.1 fL Mean Corpuscular Hemoglobin 32.2 pg Mean Corpuscular Hemoglobin Concent 31.2 g/dl Platelet Count 127 K/uL Mean Platelet Volume 8.1 fL Neutrophils (%) (Auto) 91.1 % Lymphocytes (%) (Auto) 2.8 % Monocytes (%) (Auto) 6.0 % Eosinophils (%) (Auto) 0.0 % Basophils (%) (Auto) 0.0 % Neutrophils # (Auto) 6.10 K/uL Lymphocytes # (Auto) 0.19 K/uL Monocytes # (Auto) 0.40 K/uL Eosinophils # (Auto) 0.00 K/uL Basophils # (Auto) 0.00 K/uL RDW Standard Deviation 52.8 fL RDW Coefficient of Variation 14.0 % Immature Granulocyte % (Auto) 0.1 % Immature Granulocyte # (Auto) 0.01 K/uL Red Blood Cell Morphology Unremarkable Sodium Level 138 mmol/L Potassium Level 4.0 mmol/L Chloride Level 91 mmol/L Carbon Dioxide Level 45 mmol/L Anion Gap 2.0 mmol/L Blood Urea Nitrogen 16 mg/dl Creatinine 0.36 mg/dl Est Creatinine Clear Calc Drug Dose 204.7 ml/min Estimated GFR () 148.7 Estimated GFR (Non- 128.3 BUN/Creatinine Ratio 45.1 Random Glucose 117 mg/dl Calcium Level 9.2 mg/dl Magnesium Level 1.7 mg/dl Assessment & Plan Palliative Performance Scale: 40 % Problem list: Pain related to metastatic lesion of right shoulder SOB/TSE Influenza A Pneumonia Severe COPD Lung cancer, metastatic Goals of care Palliative care recs: Discussed with patient, significant other Julita, and Dr. Pfeiffer. -Patient is now DNR/DNI. He confirmed this with Dr. Pfeiffer and myself. -Goal is for hospice care either at home or at a facility. Case management working to help with discharge planning. -Patient has increased weakness and is not going to be able to care for himself at home. His significant other, Julita, works during the day and cannot be with him 25/11. -At this time, it sounds like the best option would be for patient to go to SNF skilled and apply for medical assistance to see if they could cover his room & board at a shelter wit hospice care after his skilled stay. -Julita is going to contact office of aging to see about waiver services, but that will take some time so I think patient will need to go to SNF after hospitalization regardless. -I will met tomorrow with patient, Julita, and patient's brother Ming. They will call me when they've arrived. -Patient is fairly opioid tolerant. Would increase his Roxanol to 10mg PO/SL Q2h PRN pain or SOB. Continue other medications as ordered. Thank you kindly for this consult. I will follow as needed. Total time spent 50 minutes with >50% of time spent counseling and discussing goals and plan of care.
[2017-07-09] MEDS: MoRPHine SULFATE 10 MG/0.5 ML UDP PO PRN ×2 (17:21→19:44)
--- NOTE | 2017-07-09 19:20 | Hospitalist Progress Note ---
Hospitalist Progress Note Date of Service Jul 09, 2017. Subjective Pt evaluation today including: conversation w/ patient, conversation w/ toy consultant (Palliative Care, Oncology) Pt had an episode of hypoxia and significant SOB earlier today and was on Trilogy for an hour, felt a sense of panic. Then improved. Currently much more comfortable and on nasal cannula. Afebrile. No CP. No abd pain. Had a long discussion with him about goals of care and d/w Oncology--> no further treatment for his cancer would be offered unless he remained out of the hospital. He has bad COPD whcih is likely going to end his life before his cancer will. Pt understands and wants to move towards Hospice. He is very interested in trying Roxanol for breathlessness and pain. All Other Systems: Reviewed and Negative Objective Vital Signs Date Time Temp Pulse Resp B/P (MAP) Pulse Ox O2 Delivery O2 Flow Rate FiO2 07/09/17 19:08 71 16 95 Nasal Cannula 4.0 07/09/17 15:27 75 18 93 Nasal Cannula 4.0 07/09/17 14:20 37.2 61 20 128/58 (81) 98 Nasal Cannula 5.0 07/09/17 11:25 65 18 91 BiPAP/CPAP 15.0 07/09/17 08:20 Nasal Cannula 5.0 07/09/17 07:50 99 Nasal Cannula 4.0 40 07/09/17 07:42 36.5 66 18 131/76 (94) 99 Nasal Cannula 4.0 07/09/17 07:21 71 18 95 Nasal Cannula 4.0 07/09/17 00:30 36.7 79 19 99/42 (61) 91 Nasal Cannula 3.0 07/09/17 00:00 Nasal Cannula 4.0 07/08/17 23:10 75 18 96 Mask 4.0 07/08/17 19:36 76 18 95 Mask 3.5 Physical Exam General Appearance: WD/WN, no apparent distress Eyes: normal inspection, sclerae normal ENT: hearing grossly normal, pharynx normal Neck: supple, trachea midline Respiratory/Chest: no respiratory distress, no accessory muscle use, + decreased breath sounds (throughout with diffuse crackles and wheezes) Cardiovascular: regular rate, rhythm, no edema, no murmur Abdomen: normal bowel sounds, non tender, soft, no organomegaly Extremities: no calf tenderness 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: alert, normal mood/affect, oriented x 3 Skin: normal color, warm/dry, no rash Laboratory Results Last 24 Hours Test 07/08/17 20:34 07/09/17 05:35 07/09/17 17:07 Bedside Glucose 176 mg/dl 113 mg/dl White Blood Count 6.70 K/uL Red Blood Count 2.58 M/uL Hemoglobin 8.3 g/dL Hematocrit 26.6 % Mean Corpuscular Volume 103.1 fL Mean Corpuscular Hemoglobin 32.2 pg Mean Corpuscular Hemoglobin Concent 31.2 g/dl Platelet Count 127 K/uL Mean Platelet Volume 8.1 fL Neutrophils (%) (Auto) 91.1 % Lymphocytes (%) (Auto) 2.8 % Monocytes (%) (Auto) 6.0 % Eosinophils (%) (Auto) 0.0 % Basophils (%) (Auto) 0.0 % Neutrophils # (Auto) 6.10 K/uL Lymphocytes # (Auto) 0.19 K/uL Monocytes # (Auto) 0.40 K/uL Eosinophils # (Auto) 0.00 K/uL Basophils # (Auto) 0.00 K/uL RDW Standard Deviation 52.8 fL RDW Coefficient of Variation 14.0 % Immature Granulocyte % (Auto) 0.1 % Immature Granulocyte # (Auto) 0.01 K/uL Red Blood Cell Morphology Unremarkable Sodium Level 138 mmol/L Potassium Level 4.0 mmol/L Chloride Level 91 mmol/L Carbon Dioxide Level 45 mmol/L Anion Gap 2.0 mmol/L Blood Urea Nitrogen 16 mg/dl Creatinine 0.36 mg/dl Est Creatinine Clear Calc Drug Dose 204.7 ml/min Estimated GFR () 148.7 Estimated GFR (Non- 128.3 BUN/Creatinine Ratio 45.1 Random Glucose 117 mg/dl Calcium Level 9.2 mg/dl Magnesium Level 1.7 mg/dl Assessment and Plan Patient is a 67 year old male with a PMH of metastatic lung adenocarcinoma, 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 Multiple hospital visits due to hypoxic respiratory failure. Admitted 06/14 with hypoxia due to COPD exacerbation in addition to intractable pain due to bone metastasis. He was discharged to home on Trilogy machine for nocturnal use on 07/03/17. The pt presents with cough, fever and SOB. He was noted to have an 02 saturation in the mid 70s at home and sent to the hospital therefore. He denies acute CP, n/v , diarrhea or dysuria. His pain has been fairly well controlled. A CXR reveals B/L basilar infiltrates. It appears as though these are chronic although a R infiltrate may be worsening. the pt is requiring BiPAP at the time of admission. He was febrile and tachycardic, with sepsis and Flu A +. Acute/chronic hypercarbic/hypoxic respiratory failure - multifactorial including influenza A infection, recurrent pneumonia, end-stage COPD with probable exacerbation, and progressive lung cancer. Slight improvement from yesterday. WIth intermittent air hunger and worsening hypoxia possibly due to bronchospasm and/or mucus plugging today. have to treat for gram negative etiology and MRSA in light of frequent healthcare exposures. Cont zosyn/vanco/zithromax -continue Trilogy prn and NC O2 otherwise -he no longer desires intubation given his low likelihood of weaning off the vent as discussed today -continue IV steroids and wean down as able to -continue broad spectrum abx for now and wean down tomorrow -check PCT in AM to guide therapy -continue bronchodilators -add Roxanol 10mg po q2h prn breathlessness -consulted Palliative Care and looking towards referral to Hospice likely tomorrow when family can be here for family discussion Influenza A infection - day #3/5 tamiflu. Supportive care. Stage 4 lung cancer - Dr. Biggs has seen the pt here and says treatment was actually completed and if he progressed, no further treatment would be done at this point given numerous hospitalizations for PNA, COPD exacerbations. He is doing very poorly overall and his functional status has declined significantly. -Palliaitve Care consult as above hyperglycemia - likely 2nd to stress & steroids; check BSG ac/hs and institute insulin if they trend up. Pancytopenia - 2nd to influenza vs cancer? Baseline Hb is about 8-9. follow CBC in am. Consider Tx only if Hb<7.5. right pathological clavicular fracture - sling. Increase fentanyl patch to 112mcg q72h. Oxycodone prn. adding Roxanol today constipation - bowel regimen with miralax + senna. BPH - flomax. Voiding fine. CAD - no ischemic sx's at this time. folic acid def previously - cont folate supplementation. nonsustained V-tach - patient had a single, 10-beat run of such. NO symptoms. Lytes ok, transferred to ast DVT proph - lovenox. Disposition-Palliative Care consulted-plans for family meeting tomorrow and will finalize plans for Hospice Changed to DNR/DNI today as per pt's request after discussion Spent 35 min discussing goals of care, end of life issues, prognosis, diagnosis , and coordinating care with other specialists
[2017-07-09] MEDS: VENLAFAXINE HCL XR 150 MG CAPXR PO SCH (21:18)
[2017-07-09] MEDS: TAMSULOSIN HCL 0.4 MG CAP PO SCH (21:18)
[2017-07-10] VITALS (10 sets, daily range): BP systolic 120–147; BP diastolic 55–77; PULSE 65–92; TEMP 36.5–36.8; O2SAT 89–96
[2017-07-10] MEDS: VANCOMYCIN IV 1,250 MG in SODIUM CHLORIDE 0.9% 250ML 250 ML IV SCH ×2 (00:01→08:36)
[2017-07-10] MEDS: CHECK FENTANYL PATCH PLACEMENT SCH ×3 (00:03→16:02)
[2017-07-10] MEDS: MoRPHine SULFATE 10 MG/0.5 ML UDP PO PRN ×6 (00:09→19:29)
[2017-07-10] MEDS: PIPERACILL/TAZOBAC IV 4.5 GM in DEXTROSE 5% 100ML 100 ML IV SCH (02:49)
[2017-07-10] MEDS: METHYLPREDNISOLONE IV 60 MG in SYRINGE 0 ML IV SCH ×2 (02:50→14:17)
[2017-07-10] MEDS: ALBUT/IPRATROP 3MG/0.5MG NEB 3 ML VIAL INH SCH ×6 (03:27→23:02)
[2017-07-10 06:03] LABS: BASO % 0.1 %; BASO ABS # 0.01 K/uL (0-0.2); HEMATOCRIT 28.5 % (42-52); HEMOGLOBIN 8.9 g/dL (14.0-18.0); IG# 0.04 K/uL (0.00-0.02); LYMPH % 3.4 %; LYMPH ABS # 0.27 K/uL (1.2-3.4); MEAN CELL VOLUME 104.4 fL (80-100); MEAN CORPUSCULAR HEMOGLOBIN 32.6 pg (25-34); MEAN CORPUSCULAR HGB CONC 31.2 g/dl (32-36); MEAN PLATELET VOLUME 8.3 fL (7.4-10.4); MONO % 5.5 %; MONO ABS # 0.44 K/uL (0.11-0.59); NEUT % 90.5 %; PLATELET COUNT 131 K/uL (130-400); RED CELL DISTRIBUTION WIDTH CV 14.3 % (11.5-14.5); RED CELL DISTRIBUTION WIDTH SD 54.4 fL (36.4-46.3); WHITE BLOOD COUNT 7.96 K/uL (4.8-10.8)
[2017-07-10 06:37] LABS: CREATININE 0.37 mg/dl (0.60-1.40); POTASSIUM 4.4 mmol/L (3.5-5.1)
[2017-07-10] MEDS: CHOLECALCIFEROL 1000 INTER.UNIT TAB PO SCH (08:37)
[2017-07-10] MEDS: GABAPENTIN 600 MG TAB PO SCH ×3 (08:37→20:38)
[2017-07-10] MEDS: ENOXAPARIN 40 MG/0.4 ML SYR SQ SCH (08:38)
[2017-07-10] MEDS: AZITHROMYCIN 250 MG TAB PO SCH (08:38)
[2017-07-10] MEDS: GUAIFENESIN 600 MG TABCR PO SCH ×2 (08:38→20:38)
[2017-07-10] MEDS: OSELTAMIVIR PHOSPHATE 75 MG CAP PO SCH ×2 (08:38→20:38)
[2017-07-10] MEDS: FINASTERIDE 5 MG TAB PO SCH (08:39)
[2017-07-10] MEDS: POLYETHYLENE (MIRALAX) 17 GM PACK PO SCH (08:56)
[2017-07-10] MEDS: SENNA 8.6 MG TAB PO SCH (08:56)
--- NOTE | 2017-07-10 11:01 | Hospitalist Progress Note ---
Hospitalist Progress Note Date of Service Jul 10, 2017. Subjective Pt evaluation today including: conversation w/ patient Voiding: no voiding problems Patient feels much less short of breath today. He is pleased with the Roxanol but does think that he could go up a little bit on the dose. The pain in his clavicle is not affected much, however it does help his breathlessness. He asked me questions about the process of dying that were answered to his satisfaction today. He reports a meeting planned for this afternoon with palliative care along with his girlfriend Julita, and his brother. RN reports he did wear his trilogy mask overnight for about 5 hours. Constitutional: No fever Eyes: No problem reported Respiratory: No shortness of breath Cardiovascular: No chest pain Abdomen: No pain Musculoskeletal: + joint pain (Right shoulder/clavicle) All Other Systems: Reviewed and Negative Objective Vital Signs Date Time Temp Pulse Resp B/P (MAP) Pulse Ox O2 Delivery O2 Flow Rate FiO2 07/10/17 08:30 93 Nasal Cannula 5.0 07/10/17 07:54 36.8 76 18 128/77 (94) 94 Nasal Cannula 2.0 07/10/17 07:00 72 16 92 Nasal Cannula 6.0 07/10/17 04:20 36.8 65 20 127/69 (88) 94 4.0 07/10/17 00:25 Nasal Cannula 6.0 07/10/17 00:00 36.5 70 20 120/62 (81) 96 4.0 07/09/17 23:15 68 16 93 Nasal Cannula 4.0 07/09/17 19:24 37.2 82 20 135/63 (87) 99 Nasal Cannula 6.0 07/09/17 19:08 71 16 95 Nasal Cannula 4.0 07/09/17 16:10 Nasal Cannula 6.0 07/09/17 15:27 75 18 93 Nasal Cannula 4.0 07/09/17 14:20 37.2 61 20 128/58 (81) 98 Nasal Cannula 5.0 07/09/17 11:25 65 18 91 BiPAP/CPAP 15.0 Physical Exam General Appearance: WD/WN, no apparent distress Eyes: normal inspection, sclerae normal ENT: hearing grossly normal Neck: trachea midline Respiratory/Chest: no respiratory distress, no accessory muscle use, + wheezing (Diffusely but faint), + pertinent finding (Some crackles at the bases) Cardiovascular: regular rate, rhythm, no edema, no murmur Abdomen: normal bowel sounds, non tender, soft Extremities: non-tender, normal inspection, no pedal edema, no calf tenderness 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: alert, normal mood/affect, oriented x 3 Skin: normal color, warm/dry, no rash Laboratory Results Last 24 Hours Test 07/09/17 17:07 07/09/17 20:08 07/10/17 05:34 07/10/17 08:05 Bedside Glucose 113 mg/dl 154 mg/dl 114 mg/dl White Blood Count 7.96 K/uL Red Blood Count 2.73 M/uL Hemoglobin 8.9 g/dL Hematocrit 28.5 % Mean Corpuscular Volume 104.4 fL Mean Corpuscular Hemoglobin 32.6 pg Mean Corpuscular Hemoglobin Concent 31.2 g/dl Platelet Count 131 K/uL Mean Platelet Volume 8.3 fL Neutrophils (%) (Auto) 90.5 % Lymphocytes (%) (Auto) 3.4 % Monocytes (%) (Auto) 5.5 % Eosinophils (%) (Auto) 0.0 % Basophils (%) (Auto) 0.1 % Neutrophils # (Auto) 7.20 K/uL Lymphocytes # (Auto) 0.27 K/uL Monocytes # (Auto) 0.44 K/uL Eosinophils # (Auto) 0.00 K/uL Basophils # (Auto) 0.01 K/uL RDW Standard Deviation 54.4 fL RDW Coefficient of Variation 14.3 % Immature Granulocyte % (Auto) 0.5 % Immature Granulocyte # (Auto) 0.04 K/uL Red Blood Cell Morphology Unremarkable Sodium Level 137 mmol/L Potassium Level 4.4 mmol/L Chloride Level 90 mmol/L Carbon Dioxide Level 43 mmol/L Anion Gap 3.0 mmol/L Blood Urea Nitrogen 13 mg/dl Creatinine 0.37 mg/dl Est Creatinine Clear Calc Drug Dose 198.4 ml/min Estimated GFR () 147.1 Estimated GFR (Non- 126.9 BUN/Creatinine Ratio 35.1 Random Glucose 109 mg/dl Calcium Level 9.0 mg/dl Magnesium Level 1.8 mg/dl Procalcitonin < 0.05 ng/ml Assessment and Plan Patient is a 67 year old male with a PMH of metastatic lung adenocarcinoma, 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 Multiple hospital visits due to hypoxic respiratory failure. Admitted 06/14 with hypoxia due to COPD exacerbation in addition to intractable pain due to bone metastasis. He was discharged to home on Trilogy machine for nocturnal use on 07/03/17. The pt presents with cough, fever and SOB. He was noted to have an 02 saturation in the mid 70s at home and sent to the hospital therefore. He denies acute CP, n/v , diarrhea or dysuria. His pain has been fairly well controlled. A CXR reveals B/L basilar infiltrates. It appears as though these are chronic although a R infiltrate may be worsening. the pt is requiring BiPAP at the time of admission. He was febrile and tachycardic, with sepsis and Flu A +. Acute/chronic hypercarbic/hypoxic respiratory failure - multifactorial including influenza A infection, recurrent pneumonia, end-stage COPD with probable exacerbation, and progressive lung cancer. With significant improvement from yesterday. Had intermittent air hunger and worsening hypoxia possibly due to bronchospasm and/or mucus plugging, now improved with IV steroids, initiation of Roxanol for breathlessness. Initially treated for gram negative etiology and MRSA in light of frequent healthcare exposures, but no history of MRSA in the past Pro calcitonin negative -Check MRSA swab and if positive, will restart vancomycin, but just received a dose first thing this morning -Discontinue vancomycin and Zosyn, continue azithromycin for 5 day course for severe COPD exacerbation -continue Trilogy prn and NC O2 otherwise -he no longer desires intubation given his low likelihood of weaning off the vent as discussed-changed to DNR/DNI -continue IV steroids and wean down to every 12 hours today -continue bronchodilators -Increase Roxanol to 15 mg po q2h prn breathlessness -consulted Palliative Care and looking towards referral to Hospice-family meeting to happen this afternoon Influenza A infection - day #4/5 tamiflu. Improved, afebrile -Supportive care. Stage 4 lung cancer - Dr. Biggs has seen the pt here and says treatment was actually completed and if he progressed, no further treatment would be done at this point given numerous hospitalizations for PNA, COPD exacerbations. He is doing very poorly overall and his functional status has declined significantly. -Palliative Care consult as above -Follow-up with oncology as an outpatient Hyperglycemia - likely 2nd to stress & steroids; blood glucose fairly well controlled, no diagnosis of diabetes-discontinue Accu-Cheks especially given moving towards hospice care Pancytopenia - 2nd to influenza vs cancer? Baseline Hb is about 8-9. Stable to improved today follow CBC Consider Tx only if Hb<7.5. right pathological clavicular fracture - sling. Increased fentanyl patch to 112mcg q72h. -Continue Roxanol and increased dose to 15 mg-is helping -Discontinue oxycodone constipation -continues -Continue bowel regimen with miralax + senna. BPH - flomax. Voiding fine. CAD - no ischemic sx's at this time. folic acid def previously - cont folate supplementation. nonsustained V-tach - patient had a single, 10-beat run of such. NO symptoms. Lytes ok, transferred to [facility] DVT proph [facility]. Disposition-Palliative Care consulted-plans for family meeting today and will finalize plans for Hospice either at home versus SNF Changed to DNR/DNI
--- NOTE | 2017-07-10 16:01 | Palliative Care Progress Note ---
Palliative Care Progress Note Date of Service Jul 10, 2017. Subjective Pt evaluation today including: conversation w/ patient, conversation w/ family , physical exam, chart review, conversation w/ solar sales consultant Pain: 4/10 PO Intake: tolerating diet Voiding: no voiding problems Patient is awake and oriented x4 but does seem to be a little "foggy-headed." Family meeting held with patient, patient's s/o Julita, brother Ming and Ming's Shreya. Discussion held about goals of care and DC planning. See plan below. Review of Systems Constitutional: + weakness ENT: No trouble swallowing Respiratory: + dyspnea on exertion, No shortness of breath Cardiac: No chest pain, No edema Abdomen: No pain, No nausea, No vomiting Male : No problem reported Psychiatric: No depression symptoms, No anxiety Objective Vital Signs Date Time Temp Pulse Resp B/P (MAP) Pulse Ox O2 Delivery O2 Flow Rate FiO2 07/10/17 14:33 70 16 91 Nasal Cannula 4.0 07/10/17 11:20 36.7 69 18 133/55 (81) 95 Nasal Cannula 5.0 07/10/17 08:30 93 Nasal Cannula 5.0 07/10/17 07:54 36.8 76 18 128/77 (94) 94 Nasal Cannula 2.0 07/10/17 07:00 72 16 92 Nasal Cannula 6.0 07/10/17 04:20 36.8 65 20 127/69 (88) 94 4.0 07/10/17 00:25 Nasal Cannula 6.0 07/10/17 00:00 36.5 70 20 120/62 (81) 96 4.0 07/09/17 23:15 68 16 93 Nasal Cannula 4.0 07/09/17 19:24 37.2 82 20 135/63 (87) 99 Nasal Cannula 6.0 07/09/17 19:08 71 16 95 Nasal Cannula 4.0 07/09/17 16:10 Nasal Cannula 6.0 Physical Exam General Appearance: no apparent distress, + pertinent finding (appears to be deconditioned) ENT: hearing grossly normal Neck: supple, no JVD Respiratory/Chest: no respiratory distress, no accessory muscle use, + pertinent finding (nasal cannula) Cardiovascular: regular rate, rhythm, no edema Abdomen: normal bowel sounds, non tender, soft 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: normal mood/affect, oriented x 3 Skin: + pallor Laboratory Results Last 24 Hours Test 07/09/17 17:07 07/09/17 20:08 07/10/17 05:34 07/10/17 08:05 Bedside Glucose 113 mg/dl 154 mg/dl 114 mg/dl White Blood Count 7.96 K/uL Red Blood Count 2.73 M/uL Hemoglobin 8.9 g/dL Hematocrit 28.5 % Mean Corpuscular Volume 104.4 fL Mean Corpuscular Hemoglobin 32.6 pg Mean Corpuscular Hemoglobin Concent 31.2 g/dl Platelet Count 131 K/uL Mean Platelet Volume 8.3 fL Neutrophils (%) (Auto) 90.5 % Lymphocytes (%) (Auto) 3.4 % Monocytes (%) (Auto) 5.5 % Eosinophils (%) (Auto) 0.0 % Basophils (%) (Auto) 0.1 % Neutrophils # (Auto) 7.20 K/uL Lymphocytes # (Auto) 0.27 K/uL Monocytes # (Auto) 0.44 K/uL Eosinophils # (Auto) 0.00 K/uL Basophils # (Auto) 0.01 K/uL RDW Standard Deviation 54.4 fL RDW Coefficient of Variation 14.3 % Immature Granulocyte % (Auto) 0.5 % Immature Granulocyte # (Auto) 0.04 K/uL Red Blood Cell Morphology Unremarkable Sodium Level 137 mmol/L Potassium Level 4.4 mmol/L Chloride Level 90 mmol/L Carbon Dioxide Level 43 mmol/L Anion Gap 3.0 mmol/L Blood Urea Nitrogen 13 mg/dl Creatinine 0.37 mg/dl Est Creatinine Clear Calc Drug Dose 198.4 ml/min Estimated GFR () 147.1 Estimated GFR (Non- 126.9 BUN/Creatinine Ratio 35.1 Random Glucose 109 mg/dl Calcium Level 9.0 mg/dl Magnesium Level 1.8 mg/dl Procalcitonin < 0.05 ng/ml Test 07/10/17 11:49 Bedside Glucose 131 mg/dl Assessment and Plan Problem list: Pain related to metastatic lesion of right shoulder SOB/TSE Influenza A Pneumonia Severe COPD Lung cancer, metastatic Goals of care Palliative care recs: -Patient would like to go to SNF, skilled initially. -He will use that time to decide whether he is strong enough to go home and be alone while his S/O is at work OR if he isn't well enough he will stay at SNF for extended care. -Will need to apply for medicaid while at SNF. -Talked about transitioning to hospice care after skilled stay. Patient and family agreeable but patient said, "I don't want everything to think I'm just going to a long term to ." -Continue Roxanol as ordered. -recruiting manager updated and will follow for DC planning. Patient requested to speak with case operator so referrals can be made. Total time spent 35 minutes with >50% of time spent with patient and family discussing goals of care and what to expect. Palliative Performance Scale: 40 % Continued [facility] stay due to: home environment unsafe for pt Discharge planning: residential facility
[2017-07-10] MEDS: MoRPHine SULFATE 5 MG/0.25 ML UDP PO PRN (19:30)
[2017-07-10] MEDS: VENLAFAXINE HCL XR 150 MG CAPXR PO SCH (20:38)
[2017-07-10] MEDS: TAMSULOSIN HCL 0.4 MG CAP PO SCH (20:38)
[2017-07-11] VITALS (12 sets, daily range): BP systolic 117–138; BP diastolic 66–78; PULSE 70–93; TEMP 36.6–37; O2SAT 90–97
[2017-07-11] MEDS: MoRPHine SULFATE 5 MG/0.25 ML UDP PO PRN ×5 (01:19→21:44)
[2017-07-11] MEDS: CHECK FENTANYL PATCH PLACEMENT SCH ×3 (01:22→15:56)
[2017-07-11] MEDS: MoRPHine SULFATE 10 MG/0.5 ML UDP PO PRN ×5 (01:22→21:43)
[2017-07-11] MEDS: METHYLPREDNISOLONE IV 60 MG in SYRINGE 0 ML IV SCH (01:56)
[2017-07-11] MEDS: ALBUT/IPRATROP 3MG/0.5MG NEB 3 ML VIAL INH SCH ×6 (03:24→23:09)
[2017-07-11 05:55] LABS: BASO % 0.1 %; BASO ABS # 0.01 K/uL (0-0.2); HEMATOCRIT 30.2 % (42-52); HEMOGLOBIN 9.3 g/dL (14.0-18.0); IG# 0.08 K/uL (0.00-0.02); LYMPH % 3.4 %; LYMPH ABS # 0.31 K/uL (1.2-3.4); MEAN CELL VOLUME 106.3 fL (80-100); MEAN CORPUSCULAR HEMOGLOBIN 32.7 pg (25-34); MEAN CORPUSCULAR HGB CONC 30.8 g/dl (32-36); MEAN PLATELET VOLUME 8.6 fL (7.4-10.4); MONO % 6.7 %; MONO ABS # 0.61 K/uL (0.11-0.59); NEUT % 88.9 %; NEUT ABS # 8.09 K/uL (1.4-6.5); NUCLEATED RED BLOOD CELL ABS 0.02 K/uL (0-0); PLATELET COUNT 154 K/uL (130-400); RED CELL DISTRIBUTION WIDTH CV 14.5 % (11.5-14.5); RED CELL DISTRIBUTION WIDTH SD 55.5 fL (36.4-46.3)
[2017-07-11 06:13] LABS: CALCIUM 9.2 mg/dl (8.5-10.1); CREATININE 0.4 mg/dl (0.60-1.40); POTASSIUM 4.5 mmol/L (3.5-5.1)
[2017-07-11] MEDS ORDERED: MAGNESIUM SULFATE 1GM / D5W 1 GM in PREMIXED IN D5W 100 ML IV ONE (08:30)
[2017-07-11] MEDS: CHOLECALCIFEROL 1000 INTER.UNIT TAB PO SCH (08:51)
[2017-07-11] MEDS: GABAPENTIN 600 MG TAB PO SCH ×3 (08:52→21:42)
[2017-07-11] MEDS: GUAIFENESIN 600 MG TABCR PO SCH ×2 (08:52→21:43)
[2017-07-11] MEDS: AZITHROMYCIN 250 MG TAB PO SCH (08:52)
[2017-07-11] MEDS: OSELTAMIVIR PHOSPHATE 75 MG CAP PO SCH ×2 (08:52→21:42)
[2017-07-11] MEDS: FINASTERIDE 5 MG TAB PO SCH (08:52)
[2017-07-11] MEDS: ENOXAPARIN 40 MG/0.4 ML SYR SQ SCH (08:53)
[2017-07-11] MEDS: SENNA 8.6 MG TAB PO SCH (08:53)
[2017-07-11] MEDS: POLYETHYLENE (MIRALAX) 17 GM PACK PO SCH (08:54)
--- NOTE | 2017-07-11 09:49 | Palliative Care Progress Note ---
Palliative Care Progress Note Date of Service Jul 11, 2017. Subjective Pt evaluation today including: conversation w/ patient, physical exam, chart review, conversation w/ design consultant (Dr. Pfeiffer) Pain: controlled PO Intake: tolerating diet Voiding: no voiding problems Met with patient this morning. His pain is well-controlled with the Roxanol and he feels it also helps him "calm down." Discussed POLST form in detail with patient. See below. Review of Systems Constitutional: + weakness ENT: No trouble swallowing Respiratory: + dyspnea on exertion, No cough, No dyspnea at rest Cardiac: No chest pain, No edema Abdomen: No pain, No nausea, No vomiting Male : No problem reported Psychiatric: No depression symptoms, No anxiety Objective Vital Signs Date Time Temp Pulse Resp B/P (MAP) Pulse Ox O2 Delivery O2 Flow Rate FiO2 07/11/17 08:30 Nasal Cannula 5.0 07/11/17 07:59 91 Nasal Cannula 4.0 07/11/17 07:51 36.8 74 18 120/70 (87) 91 Nasal Cannula 4.0 07/11/17 07:09 78 16 97 Nasal Cannula 4.0 07/11/17 05:41 90 Nasal Cannula 5.0 07/11/17 04:29 36.9 70 18 120/68 (85) 90 Nasal Cannula 4.0 07/11/17 01:28 Nasal Cannula 4.0 07/11/17 00:00 36.7 77 19 117/66 (83) 91 Nasal Cannula 4.0 07/10/17 19:40 77 16 90 Nasal Cannula 4.0 07/10/17 17:20 Nasal Cannula 4.0 07/10/17 15:51 36.7 92 20 147/70 (95) 89 Nasal Cannula 4.0 07/10/17 15:50 36.7 69 16 133/55 (81) 91 Nasal Cannula 4.0 40 07/10/17 14:33 70 16 91 Nasal Cannula 4.0 07/10/17 11:20 36.7 69 18 133/55 (81) 95 Nasal Cannula 5.0 Physical Exam General Appearance: no apparent distress ENT: hearing grossly normal Neck: supple, no JVD Respiratory/Chest: no respiratory distress, no accessory muscle use, + rhonchi (coarse) Cardiovascular: regular rate, rhythm, no edema Abdomen: normal bowel sounds, non tender, soft 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: alert, normal mood/affect, oriented x 3 Skin: + pertinent finding (bilateral ears are chronically emilio/cyanotic) Laboratory Results Last 24 Hours Test 07/10/17 11:49 07/11/17 05:02 Bedside Glucose 131 mg/dl White Blood Count 9.10 K/uL Red Blood Count 2.84 M/uL Hemoglobin 9.3 g/dL Hematocrit 30.2 % Mean Corpuscular Volume 106.3 fL Mean Corpuscular Hemoglobin 32.7 pg Mean Corpuscular Hemoglobin Concent 30.8 g/dl Platelet Count 154 K/uL Mean Platelet Volume 8.6 fL Neutrophils (%) (Auto) 88.9 % Lymphocytes (%) (Auto) 3.4 % Monocytes (%) (Auto) 6.7 % Eosinophils (%) (Auto) 0.0 % Basophils (%) (Auto) 0.1 % Neutrophils # (Auto) 8.09 K/uL Lymphocytes # (Auto) 0.31 K/uL Monocytes # (Auto) 0.61 K/uL Eosinophils # (Auto) 0.00 K/uL Basophils # (Auto) 0.01 K/uL RDW Standard Deviation 55.5 fL RDW Coefficient of Variation 14.5 % Immature Granulocyte % (Auto) 0.9 % Immature Granulocyte # (Auto) 0.08 K/uL Nucleated RBC Absolute Count (auto) 0.02 K/uL Nucleated Red Blood Cells % 0.2 % Sodium Level 137 mmol/L Potassium Level 4.5 mmol/L Chloride Level 87 mmol/L Carbon Dioxide Level 53 mmol/L Anion Gap -3.0 mmol/L Blood Urea Nitrogen 16 mg/dl Creatinine 0.40 mg/dl Est Creatinine Clear Calc Drug Dose 183.6 ml/min Estimated GFR () 142.5 Estimated GFR (Non- 122.9 BUN/Creatinine Ratio 40.8 Random Glucose 92 mg/dl Calcium Level 9.2 mg/dl Magnesium Level 1.7 mg/dl Assessment and Plan Problem list: Pain related to metastatic lesion of right shoulder SOB/TSE Influenza A Pneumonia Severe COPD Lung cancer, metastatic Goals of care POLST form Palliative care recs: -Patient would like to go to SNF, skilled initially. -He will use that time to decide whether he is strong enough to go home and be alone while his S/O is at work OR if he isn't well enough he will stay at SNF for extended care. -Will need to apply for medicaid while at SNF. -Patient states he and family are meeting with keycase assembler this afternoon. -Talked about transitioning to hospice care after skilled stay. Patient and family agreeable but patient said, "I don't want everything to think I'm just going to a shelter to ." -Continue Roxanol as ordered. Pain is well-controlled. -POLST form explained in detail with patient. He tentatively has filled it out as follows, but wants to wait to finalize his signature until his s/o Julita is here: DNR, limited additional interventions, limited use of abx with comfort as the goal, no artificial hydration/nutrition. Total time spent 25 minutes with >50% of time spent with patient discussing goals of care and POLST form. Palliative Performance Scale: 40 % Continued [facility] stay due to: home environment unsafe for pt Discharge planning: retirement facility
--- NOTE | 2017-07-11 11:51 | Hospitalist Progress Note ---
Hospitalist Progress Note Date of Service Jul 11, 2017. Subjective Pt evaluation today including: conversation w/ patient Voiding: no voiding problems Patient reports feeling much better with his breathing since starting Roxanol. He did not wear his trilogy all night and we discussed his rising serum bicarbonate and its significance. He is mentating well this morning. He moved his bowels 2 days ago. He is eating. He is still feeling weak with getting out of bed and worked with OT this morning, but not PT yet. He is concerned and does not feel he is ready to go to SNF yet. Constitutional: No fever Respiratory: + cough All Other Systems: Reviewed and Negative Objective Vital Signs Date Time Temp Pulse Resp B/P (MAP) Pulse Ox O2 Delivery O2 Flow Rate FiO2 07/11/17 10:55 89 16 95 Nasal Cannula 5.0 07/11/17 08:30 Nasal Cannula 5.0 07/11/17 07:59 91 Nasal Cannula 4.0 07/11/17 07:51 36.8 74 18 120/70 (87) 91 Nasal Cannula 4.0 07/11/17 07:09 78 16 97 Nasal Cannula 4.0 07/11/17 05:41 90 Nasal Cannula 5.0 07/11/17 04:29 36.9 70 18 120/68 (85) 90 Nasal Cannula 4.0 07/11/17 01:28 Nasal Cannula 4.0 07/11/17 00:00 36.7 77 19 117/66 (83) 91 Nasal Cannula 4.0 07/10/17 19:40 77 16 90 Nasal Cannula 4.0 07/10/17 17:20 Nasal Cannula 4.0 07/10/17 15:51 36.7 92 20 147/70 (95) 89 Nasal Cannula 4.0 07/10/17 15:50 36.7 69 16 133/55 (81) 91 Nasal Cannula 4.0 40 07/10/17 14:33 70 16 91 Nasal Cannula 4.0 Physical Exam General Appearance: WD/WN, no apparent distress Eyes: normal inspection, sclerae normal ENT: hearing grossly normal Neck: trachea midline Respiratory/Chest: no respiratory distress, no accessory muscle use, + decreased breath sounds (Diminished throughout with diffuse rhonchi and expiratory wheezes) Cardiovascular: regular rate, rhythm, no edema, no murmur Abdomen: normal bowel sounds, non tender, soft Extremities: non-tender, normal inspection, no pedal edema, no calf tenderness 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: alert, normal mood/affect, oriented x 3 Skin: normal color, warm/dry, no rash Laboratory Results Last 24 Hours Test 07/10/17 11:49 07/11/17 05:02 Bedside Glucose 131 mg/dl White Blood Count 9.10 K/uL Red Blood Count 2.84 M/uL Hemoglobin 9.3 g/dL Hematocrit 30.2 % Mean Corpuscular Volume 106.3 fL Mean Corpuscular Hemoglobin 32.7 pg Mean Corpuscular Hemoglobin Concent 30.8 g/dl Platelet Count 154 K/uL Mean Platelet Volume 8.6 fL Neutrophils (%) (Auto) 88.9 % Lymphocytes (%) (Auto) 3.4 % Monocytes (%) (Auto) 6.7 % Eosinophils (%) (Auto) 0.0 % Basophils (%) (Auto) 0.1 % Neutrophils # (Auto) 8.09 K/uL Lymphocytes # (Auto) 0.31 K/uL Monocytes # (Auto) 0.61 K/uL Eosinophils # (Auto) 0.00 K/uL Basophils # (Auto) 0.01 K/uL RDW Standard Deviation 55.5 fL RDW Coefficient of Variation 14.5 % Immature Granulocyte % (Auto) 0.9 % Immature Granulocyte # (Auto) 0.08 K/uL Nucleated RBC Absolute Count (auto) 0.02 K/uL Nucleated Red Blood Cells % 0.2 % Sodium Level 137 mmol/L Potassium Level 4.5 mmol/L Chloride Level 87 mmol/L Carbon Dioxide Level 53 mmol/L Anion Gap -3.0 mmol/L Blood Urea Nitrogen 16 mg/dl Creatinine 0.40 mg/dl Est Creatinine Clear Calc Drug Dose 183.6 ml/min Estimated GFR () 142.5 Estimated GFR (Non- 122.9 BUN/Creatinine Ratio 40.8 Random Glucose 92 mg/dl Calcium Level 9.2 mg/dl Magnesium Level 1.7 mg/dl Assessment and Plan Patient is a 67 year old male with a PMH of metastatic lung adenocarcinoma, 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 Multiple hospital visits due to hypoxic respiratory failure. Admitted 06/14 with hypoxia due to COPD exacerbation in addition to intractable pain due to bone metastasis. He was discharged to home on Trilogy machine for nocturnal use on 07/03/17. The pt presents with cough, fever and SOB. He was noted to have an 02 saturation in the mid 70s at home and sent to the hospital therefore. He denies acute CP, n/v , diarrhea or dysuria. His pain has been fairly well controlled. A CXR reveals B/L basilar infiltrates. It appears as though these are chronic although a R infiltrate may be worsening. the pt is requiring BiPAP at the time of admission. He was febrile and tachycardic, with sepsis and Flu A +. Acute/chronic hypercarbic/hypoxic respiratory failure/severe end-stage COPD multifactorial including influenza A infection, recurrent pneumonia, end-stage COPD with probable exacerbation, and progressive lung cancer. Remained stable to improved today. Metabolic alkalosis compensatory for chronic hypercapnic respiratory failure- bicarb up to 53 today His previous air hunger is significantly improved with the addition of Roxanol as needed. Initially treated for gram negative etiology and MRSA in light of frequent healthcare exposures, but no history of MRSA in the past and MRSA swab. Negative Pro calcitonin negative -Discontinued vancomycin and Zosyn after 2 days -Continue azithromycin but change to to 50 mg p.o. daily for total 5 day course for severe COPD exacerbation-today #4/ -continue Trilogy prn during the day and nightly and NC O2 otherwise-reinforced that if he does not use this, it will hasten his with hypercapnic respiratory failure -he no longer desires intubation given his low likelihood of weaning off the vent as discussed-changed to DNR/DNI -Switch to p.o. prednisone today to see if he will be okay on this for discharge tomorrow -continue bronchodilators -Continue Roxanol 15 mg po q2h prn breathlessness and/or pain -consulted Palliative Care and after family meeting, decision is made to go to SNF until strong enough to go home with possible referral to home hospice at that point Influenza A infection - day #5 tamiflu. Improved, afebrile -Supportive care. Stage 4 lung cancer - Dr. Biggs has seen the pt here and says treatment was actually completed and if he progressed, no further treatment would be done at this point given numerous hospitalizations for PNA, COPD exacerbations. He is doing very poorly overall and his functional status has declined significantly. -Palliative Care consult as above -Follow-up with oncology as an outpatient Hyperglycemia - likely 2nd to stress & steroids; blood glucose fairly well controlled, no diagnosis of diabetes-discontinued Accu-Cheks Pancytopenia - 2nd to influenza vs cancer? Baseline Hb is about 8-9. Stable to improved today follow CBC periodically Consider Tx only if Hb<7.5. right pathological clavicular fracture - sling. Increased fentanyl patch to 112mcg q72h. -Continue Roxanol which is helping -Discontinued oxycodone constipation -continues, likely opioid induced -Continue bowel regimen with miralax + senna. BPH - flomax. Voiding fine. CAD - no ischemic sx's at this time. folic acid def previously - cont folate supplementation. nonsustained V-tach - patient had a single, 10-beat run of such. NO symptoms. Vania ok, transferred to [facility] DVT proph -with history of previous DVT/PE, continue Lovenox at prophylactic dose which he was on at home Disposition-plan for discharge to SNF hopefully tomorrow, POLST form filled out with palliative care today with plans for limited interventions with possible return to hospital if needed DNR/DNI
[2017-07-11] MEDS ORDERED: FENTANYL PATCH REMOVE & WASTE SCH (14:29)
[2017-07-11] MEDS: TAMSULOSIN HCL 0.4 MG CAP PO SCH (21:42)
[2017-07-11] MEDS: VENLAFAXINE HCL XR 150 MG CAPXR PO SCH (21:42)
[2017-07-12] VITALS (13 sets, daily range): BP systolic 91–122; BP diastolic 54–75; PULSE 67–90; TEMP 36.5–37.3; O2SAT 86–98
[2017-07-12] MEDS: CHECK FENTANYL PATCH PLACEMENT SCH ×3 (01:39→15:37)
[2017-07-12] MEDS: MoRPHine SULFATE 5 MG/0.25 ML UDP PO PRN (01:40)
[2017-07-12] MEDS: MoRPHine SULFATE 10 MG/0.5 ML UDP PO PRN (01:40)
[2017-07-12] MEDS: ALBUT/IPRATROP 3MG/0.5MG NEB 3 ML VIAL INH SCH ×5 (03:23→19:55)
[2017-07-12 06:25] LABS: CALCIUM 9.2 mg/dl (8.5-10.1); CREATININE 0.37 mg/dl (0.60-1.40); POTASSIUM 4.3 mmol/L (3.5-5.1)
[2017-07-12] MEDS: FENTANYL PATCH REMOVE & WASTE SCH (07:59)
[2017-07-12] MEDS: SENNA 8.6 MG TAB PO SCH (08:00)
[2017-07-12] MEDS: GABAPENTIN 600 MG TAB PO SCH ×3 (08:44→21:49)
[2017-07-12] MEDS: CHOLECALCIFEROL 1000 INTER.UNIT TAB PO SCH (08:45)
[2017-07-12] MEDS: GUAIFENESIN 600 MG TABCR PO SCH ×2 (08:46→21:49)
[2017-07-12] MEDS: ENOXAPARIN 40 MG/0.4 ML SYR SQ SCH (08:47)
[2017-07-12] MEDS: FINASTERIDE 5 MG TAB PO SCH (08:47)
[2017-07-12] MEDS: AZITHROMYCIN 250 MG TAB PO SCH (08:48)
[2017-07-12] MEDS: POLYETHYLENE (MIRALAX) 17 GM PACK PO SCH (08:48)
[2017-07-12] MEDS: FENTANYL 12 MCG/HR TDSY TD SCH (09:01)
[2017-07-12] MEDS: FENTANYL 100 MCG/HR TDSY TD SCH (09:02)
[2017-07-12] MEDS: MAGNESIUM SULFATE 1GM / D5W 1 GM in PREMIXED IN D5W 100 ML IV SCH ×2 (10:11→11:11)
--- NOTE | 2017-07-12 19:25 | Hospitalist Progress Note ---
Hospitalist Progress Note Date of Service Jul 12, 2017. Subjective Pt evaluation today including: conversation w/ patient, conversation w/ family Voiding: no voiding problems Breathing feels okay today. He was curious if his trilogy machine was helping his carbon dioxide levels so he requested a repeat ABG today. He did wear the trilogy for a few hours last night and a couple of hours during the daytime today. I reviewed the results of the ABG with him. He otherwise has no complaints. He has not been out of bed yet today. Still no bowel movement yet. Constitutional: No fever All Other Systems: Reviewed and Negative Objective Vital Signs Date Time Temp Pulse Resp B/P (MAP) Pulse Ox O2 Delivery O2 Flow Rate FiO2 07/12/17 18:51 37.3 67 20 104/66 (79) 93 5.0 07/12/17 16:00 96 Nasal Cannula 5.0 07/12/17 16:00 Nasal Cannula 5.0 07/12/17 14:44 36.6 75 20 98/60 (73) 86 CPAP 07/12/17 14:41 84 20 90 BiPAP/CPAP 8.0 07/12/17 12:00 36.6 77 18 109/55 (73) 90 Nasal Cannula 4.0 07/12/17 11:34 90 20 96 Nasal Cannula 5.0 07/12/17 08:00 97 Nasal Cannula 5.0 07/12/17 07:39 36.6 83 20 122/75 (91) 97 5.0 07/12/17 07:34 85 20 97 Nasal Cannula 5.0 07/12/17 00:07 36.6 81 19 91/54 (66) 91 CPAP 5.0 07/12/17 00:00 Nasal Cannula 5.0 07/11/17 19:40 86 16 96 Nasal Cannula 4.0 Physical Exam General Appearance: WD/WN, no apparent distress Eyes: normal inspection, sclerae normal ENT: hearing grossly normal Neck: trachea midline Respiratory/Chest: no respiratory distress, no accessory muscle use, + pertinent finding (Diffuse rhonchi, wheezes, and diminished breath sounds throughout, breathing unlabored) Cardiovascular: regular rate, rhythm, no edema, no gallop, no murmur Abdomen: normal bowel sounds, non tender, soft Extremities: normal inspection, no pedal edema, no calf tenderness 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: alert, normal mood/affect, oriented x 3 Skin: normal color, warm/dry, no rash Laboratory Results Last 24 Hours Test 07/12/17 05:45 07/12/17 15:06 Sodium Level 135 mmol/L Potassium Level 4.3 mmol/L Chloride Level 86 mmol/L Carbon Dioxide Level 50 mmol/L Anion Gap -1.0 mmol/L Blood Urea Nitrogen 18 mg/dl Creatinine 0.37 mg/dl Est Creatinine Clear Calc Drug Dose 198.4 ml/min Estimated GFR () 147.1 Estimated GFR (Non- 126.9 BUN/Creatinine Ratio 48.7 Random Glucose 86 mg/dl Calcium Level 9.2 mg/dl Magnesium Level 1.6 mg/dl Arterial Blood pH 7.35 Arterial Blood Partial Pressure CO2 94 mmHg Arterial Blood Partial Pressure O2 66 mm/Hg Arterial Blood HCO3 51 mmol/L Arterial Blood Oxygen Saturation 89.9 % Arterial Blood Base Excess 21.5 mEq/L Arterial Blood Gas Delivery 8L O2 [place] Test POS Assessment and Plan Patient is a 67 year old male with a PMH of metastatic lung adenocarcinoma, 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 Multiple hospital visits due to hypoxic respiratory failure. Admitted 06/14 with hypoxia due to COPD exacerbation in addition to intractable pain due to bone metastasis. He was discharged to home on Trilogy machine for nocturnal use on 07/03/17. The pt presents with cough, fever and SOB. He was noted to have an 02 saturation in the mid 70s at home and sent to the hospital therefore. He denies acute CP, n/v , diarrhea or dysuria. His pain has been fairly well controlled. A CXR reveals B/L basilar infiltrates. It appears as though these are chronic although a R infiltrate may be worsening. the pt is requiring BiPAP at the time of admission. He was febrile and tachycardic, with sepsis and Flu A +. Acute/chronic hypercarbic/hypoxic respiratory failure/severe end-stage COPD multifactorial including influenza A infection, recurrent pneumonia, end-stage COPD with probable exacerbation, and progressive lung cancer. Remains stable Metabolic alkalosis compensatory for chronic hypercapnic respiratory failure- bicarb up to 53 but now down to 50 after using his trilogy ventilator overnight , ABG shows he is well compensated with pH is 7.35/PaCO2 94/PaO2 66 His previous air hunger is significantly improved with the addition of Roxanol as needed. Initially treated for gram negative etiology and MRSA in light of frequent healthcare exposures, but no history of MRSA in the past and MRSA swab. Negative Pro calcitonin negative -Discontinued vancomycin and Zosyn after 2 days -Continue azithromycin but change to 250 mg p.o. daily for total 5 day course for severe COPD exacerbation-today #4/5 -continue Trilogy prn during the day and nightly and NC O2 otherwise-reinforced that if he does not use this, it will hasten his with hypercapnic respiratory failure -he no longer desires intubation given his low likelihood of weaning off the vent as discussed-changed to DNR/DNI -Continue p.o. prednisone and taper down as able to-long slow taper -continue bronchodilators -Continue Roxanol 15 mg po q2h prn breathlessness and/or pain -consulted Palliative Care and after family meeting, decision is made to go to SNF until strong enough to go home with possible referral to home hospice at that point Influenza A infection -completed 5 days of Tamiflu. Improved, afebrile -Supportive care. Stage 4 lung cancer - Dr. Biggs has seen the pt here and says treatment was actually completed and if he progressed, no further treatment would be done at this point given numerous hospitalizations for PNA, COPD exacerbations. He is doing very poorly overall and his functional status has declined significantly. -Palliative Care consult as above -Follow-up with oncology as an outpatient Hyperglycemia - likely 2nd to stress & steroids; blood glucose fairly well controlled, no diagnosis of diabetes-discontinued Accu-Cheks Pancytopenia - 2nd to influenza vs cancer? Baseline Hb is about 8-9. Stable during this admission follow CBC periodically Consider Tx only if Hb<7.5. right pathological clavicular fracture -still with some pain, he is in a sling. -Initially increased fentanyl patch to 112mcg q72h. -Continue Roxanol which is helping -Discontinued oxycodone constipation -continues, likely opioid induced -Continue bowel regimen with miralax + senna although he has been refusing the senna BPH - flomax. Voiding fine. CAD - no ischemic sx's at this time. folic acid def previously - cont folate supplementation. nonsustained V-tach - patient had a single, 10-beat run of such. NO symptoms. Lytes ok, transferred to [facility] DVT proph -with history of previous DVT/PE, continue Lovenox at prophylactic dose which he was on at home Disposition-plan for discharge to SNF on Friday as no bed available for the weekend, POLST form filled out with palliative care today with plans for limited interventions with possible return to hospital if needed DNR/DNI
[2017-07-12] MEDS: VENLAFAXINE HCL XR 150 MG CAPXR PO SCH (21:49)
[2017-07-12] MEDS: TAMSULOSIN HCL 0.4 MG CAP PO SCH (21:50)
[2017-07-13] VITALS (19 sets, daily range): BP systolic 92–115; BP diastolic 54–69; PULSE 74–147; TEMP 36.9–37.5; O2SAT 6–99
[2017-07-13] MEDS: CHECK FENTANYL PATCH PLACEMENT SCH ×4 (00:25→23:23)
[2017-07-13] MEDS: ALBUT/IPRATROP 3MG/0.5MG NEB 3 ML VIAL INH SCH ×7 (03:10→23:29)
[2017-07-13 05:33] LABS: BASO % 0.1 %; BASO ABS # 0.01 K/uL (0-0.2); HEMATOCRIT 28.5 % (42-52); HEMOGLOBIN 8.8 g/dL (14.0-18.0); IG# 0.07 K/uL (0.00-0.02); LYMPH % 8.1 %; MEAN CELL VOLUME 104.8 fL (80-100); MEAN CORPUSCULAR HEMOGLOBIN 32.4 pg (25-34); MEAN CORPUSCULAR HGB CONC 30.9 g/dl (32-36); MEAN PLATELET VOLUME 8.4 fL (7.4-10.4); MONO % 8.5 %; MONO ABS # 0.73 K/uL (0.11-0.59); NEUT % 82.5 %; NEUT ABS # 7.09 K/uL (1.4-6.5); PLATELET COUNT 117 K/uL (130-400); RED CELL DISTRIBUTION WIDTH CV 14.7 % (11.5-14.5); RED CELL DISTRIBUTION WIDTH SD 55.4 fL (36.4-46.3)
[2017-07-13 06:00] LABS: BLOOD UREA NITROGEN 19 mg/dl (7-18); CALCIUM 8.8 mg/dl (8.5-10.1); CREATININE 0.32 mg/dl (0.60-1.40); GLUCOSE 93 mg/dl (70-99); POTASSIUM 4.3 mmol/L (3.5-5.1); SODIUM 136 mmol/L (136-145)
[2017-07-13 06:21] LABS: CARBON DIOXIDE 51 mmol/L (21-32)
[2017-07-13] MEDS: MoRPHine SULFATE 5 MG/0.25 ML UDP PO PRN (07:57)
[2017-07-13] MEDS: POLYETHYLENE (MIRALAX) 17 GM PACK PO SCH (07:58)
[2017-07-13] MEDS: CHOLECALCIFEROL 1000 INTER.UNIT TAB PO SCH (07:59)
[2017-07-13] MEDS: GUAIFENESIN 600 MG TABCR PO SCH ×2 (07:59→20:05)
[2017-07-13] MEDS: SENNA 8.6 MG TAB PO SCH (07:59)
[2017-07-13] MEDS: GABAPENTIN 600 MG TAB PO SCH ×3 (07:59→20:05)
[2017-07-13] MEDS: ENOXAPARIN 40 MG/0.4 ML SYR SQ SCH (08:00)
[2017-07-13] MEDS: AZITHROMYCIN 250 MG TAB PO SCH (08:00)
[2017-07-13] MEDS: FINASTERIDE 5 MG TAB PO SCH (08:00)
[2017-07-13] MEDS ORDERED: MAGNESIUM SULFATE 1GM / D5W 1 GM in PREMIXED IN D5W 100 ML IV ONE (09:15)
[2017-07-13] MEDS ORDERED: DILTIAZEM HCL 30 MG TAB PO ONE (09:40)
[2017-07-13] MEDS ORDERED: ENOXAPARIN 80 MG/0.8 ML SYR SQ ONE (09:45)
--- NOTE | 2017-07-13 09:58 | Cardiology Consultation ---
Cardiology Consultation Date of Consultation: Jul 13, 2017. Requesting Physician: Dr. Pfeiffer Reason for Consultation: New onset atrial fibrillation Pt evaluation today including: conversation w/ patient, conversation w/ family , physical exam, lab review, review of studies, review of inpatient medication list, conversation w/ attending History of Present Illness This is a very pleasant 67-year-old gentleman who has a long history of lung disease including COPD and metastatic lung cancer. He also has influenza A currently. He has bony metastases from his cancer. He does have a history of coronary artery disease for which he has had stent placement in the past, he does not recall following up with a director of distance learning recently and does not apparently have recent cardiac testing other than electrocardiography. He is not aware of having an arrhythmia in the past and he is not currently having anginal symptoms. He does not recognize the term atrial fibrillation and does not recall having palpitations, however he is currently asymptomatic. He was noted to have a rapid irregular heart rate this morning, electrocardiography confirmed atrial fibrillation. He was hypoxic, he was placed on a mask and his oxygenation is better. Heart rate was elevated to the 140s. He would prefer not to go to the intensive care unit or telemetry. Hemodynamically he has been stable. He is currently on Lovenox for DVT prophylaxis, this is an outpatient medication as well with his cancer. Past Medical/Surgical History (1) COPD (chronic obstructive pulmonary disease) (2) Coronary artery disease (3) Metastatic carcinoma to bone (4) History of total replacement of right hip Family History CABG Cancer Social History Smoking Status: Former Smoker History of Alcohol Use: No Review of Systems Respiratory: + cough, + shortness of breath Cardiac: No chest pain, No edema All Other Systems: Reviewed and Negative Allergies Coded Allergies: No Known Allergies (Verified , 07/07/17) Medications Current Inpatient Medications Medications (Trade) Dose Ordered Sig/Abbi Route Start Time Stop Time Status Last Admin Dose Admin Cholecalciferol (Vitamin D Tab) 4,000 inter.unit QAM PO 07/07/17 09:00 08/06/17 08:59 07/13/17 07:59 4,000 INTER.UNIT Finasteride (Proscar Tab) 5 mg QAM PO 07/07/17 09:00 08/06/17 08:59 07/13/17 08:00 5 MG Folic Acid (Folvite Tab) 1 mg QPM PO 07/07/17 21:00 08/06/17 20:59 07/12/17 21:50 1 MG Gabapentin (Neurontin Tab) 600 mg TID PO 07/07/17 09:00 08/06/17 08:59 07/13/17 07:59 600 MG Guaifenesin (Mucinex Contr Rel Tab) 1,200 mg Q12H PO 07/07/17 09:00 08/06/17 08:59 07/13/17 07:59 1,200 MG Tamsulosin HCl (Flomax Cap) 0.4 mg HS PO 07/07/17 21:00 08/06/17 20:59 07/12/17 21:50 0.4 MG Venlafaxine HCl (effeXOR EXTENDED REL CAP) 150 mg QPM PO 07/07/17 21:00 08/06/17 20:59 07/12/17 21:49 150 MG Albuterol Sulfate (Ventolin 0.083% 2.5MG/3ML Neb) 2.5 mg Q4H PRN INH 07/07/17 04:30 08/06/17 04:29 Acetaminophen (Tylenol Tab) 650 mg Q4H PRN PO 07/07/17 04:45 08/06/17 04:44 Al Hydrox/Mg Hydrox/Simethicone (Maalox Max Susp) 15 ml Q4H PRN PO 07/07/17 04:45 08/06/17 04:44 Magnesium Hydroxide (Milk Of Magnesia Susp) 30 ml Q12H PRN PO 07/07/17 04:45 08/06/17 04:44 Ondansetron HCl (Zofran Inj) 4 mg Q6H PRN IV 07/07/17 04:45 08/06/17 04:44 Albuterol/ Ipratropium (Duoneb) 3 ml Q4R INH 07/07/17 14:00 08/06/17 08:59 07/13/17 07:17 3 ML Polyethylene (Miralax Powder Packet) 17 gm DAILY PO 07/09/17 08:00 08/06/17 04:44 07/12/17 08:48 17 GM Senna (Senokot Tab) 17.2 mg QAM PO 07/09/17 08:00 08/08/17 07:59 07/13/17 07:59 17.2 MG Heparin Sodium (Porcine) (Heparin 100 Unit/ml 5ml Flush) 5 ml PRN PRN IV 07/09/17 02:30 08/08/17 02:29 07/13/17 04:57 5 ML Fentanyl (Duragesic Patch) 100 mcg Q3D@0800 TD 07/09/17 08:00 07/23/17 07:59 07/12/17 09:02 100 MCG Miscellaneous (Fentanyl Patch Remove & Waste) 1 ea Q3D@0759 N/A 07/09/17 07:59 08/08/17 07:58 07/12/17 07:59 1 EA Miscellaneous Information (Check Fentanyl Patch Placement) 1 ea QS N/A 07/09/17 08:00 08/08/17 07:59 07/13/17 07:58 1 EA Fentanyl (Duragesic Patch) 12 mcg Q3D@0800 TD 07/09/17 08:00 07/23/17 07:59 07/12/17 09:01 12 MCG Morphine Sulfate (Roxanol Oral Soln) 10 mg Q2H PRN PO 07/10/17 16:30 07/24/17 16:29 07/12/17 01:40 10 MG Morphine Sulfate (Roxanol Oral Soln) 5 mg Q2H PRN PO 07/10/17 16:30 07/24/17 16:29 07/13/17 07:57 5 MG Prednisone (PredniSONE TAB) 60 mg QAM PO 07/12/17 08:00 08/11/17 07:59 07/13/17 08:00 60 MG Magnesium Sulfate 1 gm/Prmx 100 ml @ 100 mls/hr TODAY@0915 ONCE IV 07/13/17 09:15 07/13/17 10:14 Enoxaparin Sodium (Lovenox Inj) 120 mg QAM SQ 07/14/17 08:00 08/06/17 08:59 UNV Diltiazem HCl (Cardizem Tab) 30 mg TID PO 07/13/17 14:00 08/12/17 13:59 UNV Diltiazem HCl (Cardizem Tab) 30 mg 0940 ONCE PO 07/13/17 09:40 07/13/17 09:41 UNV Enoxaparin Sodium (Lovenox Inj) 80 mg NOW ONCE SQ 07/13/17 09:45 07/13/17 09:46 UNV Physical Exam Vital Signs Past 12 Hours Date Time Temp Pulse Resp B/P (MAP) Pulse Ox O2 Delivery O2 Flow Rate FiO2 07/13/17 09:26 92/59 (70) 07/13/17 09:24 92/59 (70) 07/13/17 09:17 78 96 40 07/13/17 08:47 147 84 Nasal Cannula 6.0 07/13/17 08:35 37.2 96 20 108/57 (74) 84 Nasal Cannula 5.0 07/13/17 08:00 84 Nasal Cannula 6.0 07/13/17 07:18 86 20 93 Nasal Cannula 5.0 07/13/17 04:59 36.9 78 18 115/69 (84) 94 Nasal Cannula 5.0 07/13/17 00:00 98 Nasal Cannula 5.0 40 07/12/17 23:31 36.5 70 20 104/65 (78) 97 Nasal Cannula 5.0 Constitutional: Level of Distress: moderate distress Psychiatric: Mental Status: active & alert Head: normocephalic Eyes: EOM: EOMI ENMT: normal ENT inspection, hearing grossly normal Neck: supple, no masses Lungs: Respiratory effort: dyspneic Auscultation: inspiratory wheezing Cardiovascular: Heart Auscultation: no murmurs, no rubs, no gallops, tachycardia, irregular rate rhythm Peripheral Pulses: Bruits: none appreciated Abdomen: Bowel Sounds: normal Inspection & Palpation: soft, no tenderness, guarding & rebound, no masses Musculoskeletal: normal strength (5/5 throughout) Extremities: no edema Neurologic: Cranial Nerves: grossly intact Sensation: grossly intact Data Laboratory Results: Last 24 Hours Test 07/12/17 15:06 07/13/17 04:54 Arterial Blood pH 7.35 Arterial Blood Partial Pressure CO2 94 mmHg Arterial Blood Partial Pressure O2 66 mm/Hg Arterial Blood HCO3 51 mmol/L Arterial Blood Oxygen Saturation 89.9 % Arterial Blood Base Excess 21.5 mEq/L Arterial Blood Gas Delivery 8L O2 [place] Test POS White Blood Count 8.60 K/uL Red Blood Count 2.72 M/uL Hemoglobin 8.8 g/dL Hematocrit 28.5 % Mean Corpuscular Volume 104.8 fL Mean Corpuscular Hemoglobin 32.4 pg Mean Corpuscular Hemoglobin Concent 30.9 g/dl Platelet Count 117 K/uL Mean Platelet Volume 8.4 fL Neutrophils (%) (Auto) 82.5 % Lymphocytes (%) (Auto) 8.1 % Monocytes (%) (Auto) 8.5 % Eosinophils (%) (Auto) 0.0 % Basophils (%) (Auto) 0.1 % Neutrophils # (Auto) 7.09 K/uL Lymphocytes # (Auto) 0.70 K/uL Monocytes # (Auto) 0.73 K/uL Eosinophils # (Auto) 0.00 K/uL Basophils # (Auto) 0.01 K/uL RDW Standard Deviation 55.4 fL RDW Coefficient of Variation 14.7 % Immature Granulocyte % (Auto) 0.8 % Immature Granulocyte # (Auto) 0.07 K/uL Basophilic Stippling 1+ Sodium Level 136 mmol/L Potassium Level 4.3 mmol/L Chloride Level 85 mmol/L Carbon Dioxide Level 51 mmol/L Anion Gap 0.0 mmol/L Blood Urea Nitrogen 19 mg/dl Creatinine 0.32 mg/dl Est Creatinine Clear Calc Drug Dose 229.4 ml/min Estimated GFR () > 150.0 Estimated GFR (Non- 134.7 BUN/Creatinine Ratio 59.6 Random Glucose 93 mg/dl Calcium Level 8.8 mg/dl Magnesium Level 1.7 mg/dl EKG: Atrial fibrillation with a rapid ventricular response at 147 bpm. Assessment & Plan 1. Atrial fibrillation with a rapid ventricular response: He developed atrial fibrillation this morning, this may be a new arrhythmia but he is asymptomatic so it is possible he has had this before and been unaware of it. In any case the rate was very fast, in part probably due to hypoxia and high catecholamine state. He would prefer not to be transferred to telemetry. Since he is hemodynamically stable and his oxygenation is improving on oxygen mask I think that is acceptable for the moment. We discussed treatment of AV chidi blocking medications as well as therapeutic doses of anticoagulation and he is agreeable. I would recommend starting diltiazem 30 mg (short acting so we can make more rapid changes and if we use long-acting) every 8 hours, we can increase this or change to daily dosing in the future. I would also recommend increasing him to therapeutic doses of Lovenox, either 120 mg daily or 80 mg twice daily (he weighs 80 kg). 2. Coronary disease: He has a history of coronary disease however that does not seem to be active now, under the circumstances I would not pursue evaluation. I do not think there is any reason to draw cardiac enzymes. Thank you for allowing me to participate in his care.
--- NOTE | 2017-07-13 10:44 | Hospitalist Progress Note ---
Hospitalist Progress Note Date of Service Jul 13, 2017. Subjective Pt evaluation today including: conversation w/ patient, conversation w/ distributed energy systems consultant (Cardiology) Called by RN this morning for acute decompensation. Patient was satting with a pulse ox in the 70s despite being on his trilogy vent. He also had a rapid irregular heartbeat. He was found to be in atrial fibrillation with a heart rate in the 130s-140s. He denied chest pain or heart palpitations, denied shortness of breath despite his profound hypoxia, denied lightheadedness. Denied abdominal pain. EKG confirmed atrial fibrillation, no ischemic changes. He was switched from his trilogy to BiPAP and increase his FiO2 and had improvement in his oxygenation. With this, his heart rate did come down to the high 90s low 100s but remained in A. fib. Patient again confirms he is a DNR/ DNI, and does not want to be transferred to telemetry for heart monitoring at this time. He is agreeable to increasing his dose of Lovenox to full dose for CVA prevention and starting p.o. diltiazem for rate control. Blood pressures remained low normal as per his usual. Constitutional: No fever Abdomen: No GI bleeding All Other Systems: Reviewed and Negative Objective Vital Signs Date Time Temp Pulse Resp B/P (MAP) Pulse Ox O2 Delivery O2 Flow Rate FiO2 07/13/17 09:26 92/59 (70) 07/13/17 09:24 92/59 (70) 07/13/17 09:17 78 96 40 07/13/17 08:47 147 84 Nasal Cannula 6.0 07/13/17 08:35 37.2 96 20 108/57 (74) 84 Nasal Cannula 5.0 07/13/17 08:00 84 Nasal Cannula 6.0 07/13/17 07:18 86 20 93 Nasal Cannula 5.0 07/13/17 04:59 36.9 78 18 115/69 (84) 94 Nasal Cannula 5.0 07/13/17 00:00 98 Nasal Cannula 5.0 40 07/12/17 23:31 36.5 70 20 104/65 (78) 97 Nasal Cannula 5.0 07/12/17 20:00 98 Nasal Cannula 5.0 40 07/12/17 19:58 88 20 98 Nasal Cannula 5.0 07/12/17 18:51 37.3 67 20 104/66 (79) 93 5.0 07/12/17 16:00 96 Nasal Cannula 5.0 07/12/17 16:00 Nasal Cannula 5.0 07/12/17 14:44 36.6 75 20 98/60 (73) 86 CPAP 07/12/17 14:41 84 20 90 BiPAP/CPAP 8.0 07/12/17 12:00 36.6 77 18 109/55 (73) 90 Nasal Cannula 4.0 07/12/17 11:34 90 20 96 Nasal Cannula 5.0 Physical Exam General Appearance: no apparent distress, + pertinent finding (With BiPAP mask in place) Eyes: normal inspection, sclerae normal ENT: hearing grossly normal Neck: trachea midline Respiratory/Chest: no respiratory distress, no accessory muscle use, + decreased breath sounds (Diminished throughout with diffuse wheezes and rhonchi unchanged from previous) Cardiovascular: no edema, + tachycardia, + irregularly irregular (With tachycardia, fairly strong radial pulse on the right) Abdomen: normal bowel sounds, non tender, soft Extremities: non-tender, normal inspection, no pedal edema, no calf tenderness 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: no motor/sensory deficits, alert, normal mood/affect, oriented x 3 Skin: warm/dry, no rash, + cyanosis (Cyanotic in the perioral region and in the ears) Laboratory Results Last 24 Hours Test 07/12/17 15:06 07/13/17 04:54 Arterial Blood pH 7.35 Arterial Blood Partial Pressure CO2 94 mmHg Arterial Blood Partial Pressure O2 66 mm/Hg Arterial Blood HCO3 51 mmol/L Arterial Blood Oxygen Saturation 89.9 % Arterial Blood Base Excess 21.5 mEq/L Arterial Blood Gas Delivery 8L O2 [place] Test POS White Blood Count 8.60 K/uL Red Blood Count 2.72 M/uL Hemoglobin 8.8 g/dL Hematocrit 28.5 % Mean Corpuscular Volume 104.8 fL Mean Corpuscular Hemoglobin 32.4 pg Mean Corpuscular Hemoglobin Concent 30.9 g/dl Platelet Count 117 K/uL Mean Platelet Volume 8.4 fL Neutrophils (%) (Auto) 82.5 % Lymphocytes (%) (Auto) 8.1 % Monocytes (%) (Auto) 8.5 % Eosinophils (%) (Auto) 0.0 % Basophils (%) (Auto) 0.1 % Neutrophils # (Auto) 7.09 K/uL Lymphocytes # (Auto) 0.70 K/uL Monocytes # (Auto) 0.73 K/uL Eosinophils # (Auto) 0.00 K/uL Basophils # (Auto) 0.01 K/uL RDW Standard Deviation 55.4 fL RDW Coefficient of Variation 14.7 % Immature Granulocyte % (Auto) 0.8 % Immature Granulocyte # (Auto) 0.07 K/uL Basophilic Stippling 1+ Sodium Level 136 mmol/L Potassium Level 4.3 mmol/L Chloride Level 85 mmol/L Carbon Dioxide Level 51 mmol/L Anion Gap 0.0 mmol/L Blood Urea Nitrogen 19 mg/dl Creatinine 0.32 mg/dl Est Creatinine Clear Calc Drug Dose 229.4 ml/min Estimated GFR () > 150.0 Estimated GFR (Non- 134.7 BUN/Creatinine Ratio 59.6 Random Glucose 93 mg/dl Calcium Level 8.8 mg/dl Magnesium Level 1.7 mg/dl Assessment and Plan Patient is a 67 year old male with a PMH of metastatic lung adenocarcinoma, 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 Multiple hospital visits due to hypoxic respiratory failure. Admitted 06/14 with hypoxia due to COPD exacerbation in addition to intractable pain due to bone metastasis. He was discharged to home on Trilogy machine for nocturnal use on 07/03/17. The pt presents with cough, fever and SOB. He was noted to have an 02 saturation in the mid 70s at home and sent to the hospital therefore. He denies acute CP, n/v , diarrhea or dysuria. His pain has been fairly well controlled. A CXR reveals B/L basilar infiltrates. It appears as though these are chronic although a R infiltrate may be worsening. The pt is requiring BiPAP at the time of admission. He was febrile and tachycardic, with sepsis and Flu A +. Acute/chronic hypercarbic/hypoxic respiratory failure/severe end-stage COPD multifactorial including influenza A infection, recurrent pneumonia, end-stage COPD with probable exacerbation, and progressive lung cancer.-With profound hypoxia today to the 70s in the setting of rapid atrial fibrillation even while on trilogy. Switched to BiPAP with settings 12/5 and initially FiO2 100% and wean down to 40% with improvement of hypoxia. Metabolic alkalosis compensatory for chronic hypercapnic respiratory failure- bicarb up to 53 but now down to 50-51 after using his trilogy ventilator more regularly. ABG shows he is well compensated with pH is 7.35/PaCO2 94/PaO2 66 His previous air hunger is significantly improved with the addition of Roxanol as needed. Initially treated for gram negative etiology and MRSA in light of frequent healthcare exposures, but no history of MRSA in the past and MRSA swab. Negative Pro calcitonin negative -Discontinued vancomycin and Zosyn after 2 days -Continue azithromycin but change to 250 mg p.o. daily for total 5 day course for severe COPD exacerbation-today #5/5 -continue BiPAP for now at current settings, will be determined whether the trilogy will be able to support him well enough once he leaves here -he again confirms he does not desire intubation given his low likelihood of weaning off the vent as discussed -Continue p.o. prednisone and taper down as able to-long slow taper-continues at 60 mg daily -continue bronchodilators -Continue Roxanol 15 mg po q2h prn breathlessness and/or pain -consulted Palliative Care and after family meeting, decision is made to go to SNF until strong enough to go home with possible referral to home hospice at that point Rapid atrial fibrillation-new in onset, asymptomatic, rates in the 140s, caused worsening hypoxia. Improvement of his respiratory status did improve his heart rate to the low 100s. Patient did not desire to be moved to telemetry unit. Given underlying severe lung disease and likelihood to remain in A. fib, rate control strategy adopted -Cardiology consulted-had discussion with myself and the patient together and decided to treat with p.o. diltiazem 30 mg 3 times daily for rate control -Patient agreeable to increasing Lovenox to full dose anticoagulation for CVA prevention-start Lovenox 120 mg SQ daily -Remain on medical floor as per patient's request Influenza A infection -completed 5 days of Tamiflu. Improved, afebrile -Supportive care. Stage 4 lung cancer - Dr. Biggs has seen the pt here and says treatment was actually completed and if he progressed, no further treatment would be done at this point given numerous hospitalizations for PNA, COPD exacerbations. He is doing very poorly overall and his functional status has declined significantly. -Palliative Care consult as above -Follow-up with oncology as an outpatient Hyperglycemia - likely 2nd to stress & steroids; blood glucose fairly well controlled, no diagnosis of diabetes-discontinued Accu-Cheks Pancytopenia - 2nd to influenza vs cancer? Baseline Hb is about 8-9. Continues to be stable follow CBC periodically Consider Tx only if Hb<7.5. right pathological clavicular fracture -still with some pain, he is in a sling. -Initially increased fentanyl patch to 112mcg q72h. -Continue Roxanol which is helping -Discontinued oxycodone constipation -continues, likely opioid induced -Continue bowel regimen with miralax + senna although he has been refusing the senna BPH - flomax. Voiding fine. CAD with history of 3 stents in 2009-has not followed with cardiology since that time -No ischemic sx's at this time. folic acid def previously - cont folate supplementation. nonsustained V-tach - patient had a single, 10-beat run of such. NO symptoms. Vania conley, transferred to [facility] DVT proph -with history of previous DVT/PE, continue Lovenox-was previously on prophylactic dose at home, now increasing for atrial fibrillation as above Disposition-plan for discharge to SNF on Friday if medically stable as no bed available for the weekend, POLST form filled out with palliative care today with plans for limited interventions with possible return to hospital if needed DNR/DNI
[2017-07-13] MEDS: DILTIAZEM HCL 30 MG TAB PO SCH ×2 (13:24→20:04)
[2017-07-13] MEDS: TAMSULOSIN HCL 0.4 MG CAP PO SCH (20:04)
[2017-07-13] MEDS: VENLAFAXINE HCL XR 150 MG CAPXR PO SCH (20:05)
[2017-07-13] MEDS: MoRPHine SULFATE 10 MG/0.5 ML UDP PO PRN (23:25)
[2017-07-14] VITALS (16 sets, daily range): BP systolic 111–136; BP diastolic 52–81; PULSE 67–88; TEMP 36.2–37.2; O2SAT 90–100
[2017-07-14] MEDS: ALBUT/IPRATROP 3MG/0.5MG NEB 3 ML VIAL INH SCH ×6 (03:55→23:35)
[2017-07-14 06:17] LABS: BLOOD UREA NITROGEN 18 mg/dl (7-18); CALCIUM 8.9 mg/dl (8.5-10.1); CREATININE 0.26 mg/dl (0.60-1.40); GLUCOSE 109 mg/dl (70-99); POTASSIUM 3.9 mmol/L (3.5-5.1); SODIUM 137 mmol/L (136-145)
[2017-07-14 06:24] LABS: HEMATOCRIT 28.2 % (42-52); HEMOGLOBIN 8.3 g/dL (14.0-18.0); MEAN CORPUSCULAR HEMOGLOBIN 31.2 pg (25-34); MEAN CORPUSCULAR HGB CONC 29.4 g/dl (32-36); MEAN PLATELET VOLUME 8.4 fL (7.4-10.4); PLATELET COUNT 103 K/uL (130-400); RED CELL DISTRIBUTION WIDTH CV 14.8 % (11.5-14.5); RED CELL DISTRIBUTION WIDTH SD 56.8 fL (36.4-46.3)
[2017-07-14 06:26] LABS: BASO % 0.1 %; BASO ABS # 0.01 K/uL (0-0.2); EOS % 0.1 %; EOS ABS # 0.01 K/uL (0-0.5); IG# 0.08 K/uL (0.00-0.02); LYMPH % 9.6 %; LYMPH ABS # 0.68 K/uL (1.2-3.4); MONO ABS # 0.85 K/uL (0.11-0.59); NEUT % 77.1 %; NEUT ABS # 5.47 K/uL (1.4-6.5)
[2017-07-14 06:42] LABS: CARBON DIOXIDE 49 mmol/L (21-32)
[2017-07-14] MEDS: POLYETHYLENE (MIRALAX) 17 GM PACK PO SCH (07:52)
[2017-07-14] MEDS: CHECK FENTANYL PATCH PLACEMENT SCH ×3 (07:52→23:42)
[2017-07-14] MEDS: DILTIAZEM HCL 30 MG TAB PO SCH ×3 (07:53→20:14)
[2017-07-14] MEDS: GABAPENTIN 600 MG TAB PO SCH ×3 (07:54→20:14)
[2017-07-14] MEDS: FINASTERIDE 5 MG TAB PO SCH (07:55)
[2017-07-14] MEDS: SENNA 8.6 MG TAB PO SCH (07:55)
[2017-07-14] MEDS: GUAIFENESIN 600 MG TABCR PO SCH ×2 (07:56→20:13)
[2017-07-14] MEDS: CHOLECALCIFEROL 1000 INTER.UNIT TAB PO SCH (07:56)
[2017-07-14] MEDS: ENOXAPARIN 120 MG/0.8 ML SYR SQ SCH (07:57)
[2017-07-14] MEDS ORDERED: NURSING VERBAL MED ORDER ONE (08:30)
[2017-07-14] MEDS: MoRPHine SULFATE 5 MG/0.25 ML UDP PO PRN ×2 (08:47→15:48)
[2017-07-14] MEDS: MAGNESIUM SULFATE 1GM / D5W 1 GM in PREMIXED IN D5W 100 ML IV SCH ×3 (09:44→12:55)
--- NOTE | 2017-07-14 16:23 | Palliative Care Progress Note ---
Palliative Care Progress Note Date of Service Jul 14, 2017. Subjective Pt evaluation today including: conversation w/ patient, conversation w/ family (s/o Julita), physical exam, chart review, conversation w/ edi consultant (Dr. Pfeiffer) Patient had bad day yesterday, went into rapid afib with respiratory distress. He required Bipap, was started on PO Cardizem. Patient did not want to transfer to telemetry unit when this occurred. Review of Systems Constitutional: + weakness ENT: No trouble swallowing Respiratory: + wheezing (occasional), + dyspnea on exertion, No cough, No dyspnea at rest Cardiac: No chest pain, No edema Abdomen: No pain, No nausea, No vomiting Male : No problem reported Psychiatric: No depression symptoms, No anxiety Objective Vital Signs Date Time Temp Pulse Resp B/P (MAP) Pulse Ox O2 Delivery O2 Flow Rate FiO2 07/14/17 15:59 36.7 75 20 130/81 (97) 91 Nasal Cannula 6.0 07/14/17 15:24 75 18 90 Nasal Cannula 6.0 07/14/17 14:11 36.8 81 26 115/67 (83) 91 Nasal Cannula 5.0 Humidified Oxygen 07/14/17 11:31 72 16 97 Nasal Cannula 5.0 07/14/17 09:16 94 Nasal Cannula 5.0 Humidified Oxygen 07/14/17 08:02 36.6 88 22 118/68 (85) 94 Nasal Cannula 5.0 Humidified Oxygen 07/14/17 08:00 93 Nasal Cannula 6.0 07/14/17 07:05 76 18 99 Nasal Cannula 6.0 07/14/17 04:17 36.2 67 18 111/52 (71) 99 BiPAP 07/14/17 00:00 98 Nasal Cannula 5.0 40 07/13/17 23:29 83 16 96 Nasal Cannula 6.0 07/13/17 22:30 36.9 74 20 109/63 (78) 99 Nasal Cannula 6.5 Humidified Oxygen 07/13/17 20:18 79 16 97 Nasal Cannula 6.0 07/13/17 20:00 Nasal Cannula 6.0 07/13/17 19:16 37.5 80 18 106/54 (71) 97 Nasal Cannula 6.0 Physical Exam General Appearance: no apparent distress ENT: hearing grossly normal Neck: supple, no JVD Respiratory/Chest: no respiratory distress, + decreased breath sounds, + wheezing (expiratory) Cardiovascular: regular rate, rhythm, no edema Abdomen: normal bowel sounds, non tender, soft 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: alert, normal mood/affect, oriented x 3 Skin: + pertinent finding (ears and nose are cyanotic) Laboratory Results Last 24 Hours Test 07/14/17 05:43 White Blood Count 7.10 K/uL Red Blood Count 2.66 M/uL Hemoglobin 8.3 g/dL Hematocrit 28.2 % Mean Corpuscular Volume 106.0 fL Mean Corpuscular Hemoglobin 31.2 pg Mean Corpuscular Hemoglobin Concent 29.4 g/dl Platelet Count 103 K/uL Mean Platelet Volume 8.4 fL Neutrophils (%) (Auto) 77.1 % Lymphocytes (%) (Auto) 9.6 % Monocytes (%) (Auto) 12.0 % Eosinophils (%) (Auto) 0.1 % Basophils (%) (Auto) 0.1 % Neutrophils # (Auto) 5.47 K/uL Lymphocytes # (Auto) 0.68 K/uL Monocytes # (Auto) 0.85 K/uL Eosinophils # (Auto) 0.01 K/uL Basophils # (Auto) 0.01 K/uL RDW Standard Deviation 56.8 fL RDW Coefficient of Variation 14.8 % Immature Granulocyte % (Auto) 1.1 % Immature Granulocyte # (Auto) 0.08 K/uL Hypochromasia PRESENT Sodium Level 137 mmol/L Potassium Level 3.9 mmol/L Chloride Level 91 mmol/L Carbon Dioxide Level 49 mmol/L Anion Gap -3.0 mmol/L Blood Urea Nitrogen 18 mg/dl Creatinine 0.26 mg/dl Est Creatinine Clear Calc Drug Dose 280.6 ml/min Estimated GFR () > 150.0 Estimated GFR (Non- 146.7 BUN/Creatinine Ratio 70.7 Random Glucose 109 mg/dl Calcium Level 8.9 mg/dl Magnesium Level 1.5 mg/dl Assessment and Plan Problem list: Pain related to metastatic lesion of right shoulder SOB/TSE Influenza A Pneumonia Severe COPD Lung cancer, metastatic Afib with RVR Goals of care Palliative care recs: -Patient would like to go to SNF, skilled initially. -He will use that time to decide whether he is strong enough to go home and be alone while his S/O is at work OR if he isn't well enough he will stay at SNF for extended care. -Will need to apply for medicaid while at SNF. -Continue Roxanol as ordered. Pain is well-controlled. -POLST form completed and signed as follows: DNR, limited additional interventions, limited use of abx with comfort as the goal, no artificial hydration/nutrition. -Spoke with patient's s/o Julita outside of room with Dr. Pfeiffer. Expressed concern to Julita about patient's declining status, she agrees and is aware. Will see how patient does with our PT/OT to see if he is able to participate in therapy. Total time spent 25 minutes with >50% of time spent with patient and family discussing goals of care. Palliative Performance Scale: 40 % Continued [facility] stay due to: home environment unsafe for pt Discharge planning: alf facility
--- NOTE | 2017-07-14 19:53 | Hospitalist Progress Note ---
Hospitalist Progress Note Date of Service Jul 14, 2017. Subjective Pt evaluation today including: conversation w/ patient, conversation w/ family , conversation w/ consumer services consultant (Palliative care) Patient still with sats in the low 80s when I saw him earlier today, was being placed back on BiPAP. He had been off BiPAP all morning eating breakfast and lunch. He denies shortness of breath. Denies chest pain. He is back in a sinus rhythm. He did have a bowel movement yesterday. He was unable again to participate with PT today due to hypoxia. Discussed the possibility that he may not be a candidate for SNF as he desires due to inability to participate with PT. He still really wants to try. All Other Systems: Reviewed and Negative Objective Vital Signs Date Time Temp Pulse Resp B/P (MAP) Pulse Ox O2 Delivery O2 Flow Rate FiO2 07/14/17 19:28 37.0 76 20 123/60 (81) 98 Nasal Cannula 6.0 07/14/17 16:00 93 Nasal Cannula 6.0 07/14/17 15:59 36.7 75 20 130/81 (97) 91 Nasal Cannula 6.0 07/14/17 15:24 75 18 90 Nasal Cannula 6.0 07/14/17 14:11 36.8 81 26 115/67 (83) 91 Nasal Cannula 5.0 Humidified Oxygen 07/14/17 11:31 72 16 97 Nasal Cannula 5.0 07/14/17 09:16 94 Nasal Cannula 5.0 Humidified Oxygen 07/14/17 08:02 36.6 88 22 118/68 (85) 94 Nasal Cannula 5.0 Humidified Oxygen 07/14/17 08:00 93 Nasal Cannula 6.0 07/14/17 07:05 76 18 99 Nasal Cannula 6.0 07/14/17 04:17 36.2 67 18 111/52 (71) 99 BiPAP 07/14/17 00:00 98 Nasal Cannula 5.0 40 07/13/17 23:29 83 16 96 Nasal Cannula 6.0 07/13/17 22:30 36.9 74 20 109/63 (78) 99 Nasal Cannula 6.5 Humidified Oxygen 07/13/17 20:18 79 16 97 Nasal Cannula 6.0 07/13/17 20:00 Nasal Cannula 6.0 Physical Exam General Appearance: no apparent distress Eyes: normal inspection, sclerae normal ENT: hearing grossly normal Neck: trachea midline Respiratory/Chest: no respiratory distress, no accessory muscle use, + pertinent finding (On BiPAP, with diffuse rhonchi and wheezes with diminished breath sounds throughout) Cardiovascular: regular rate, rhythm, no edema, no murmur Abdomen: normal bowel sounds, non tender, soft Extremities: normal inspection, no pedal edema, no calf tenderness 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: alert, normal mood/affect, oriented x 3 Skin: warm/dry, no rash, + cyanosis Laboratory Results Last 24 Hours Test 07/14/17 05:43 White Blood Count 7.10 K/uL Red Blood Count 2.66 M/uL Hemoglobin 8.3 g/dL Hematocrit 28.2 % Mean Corpuscular Volume 106.0 fL Mean Corpuscular Hemoglobin 31.2 pg Mean Corpuscular Hemoglobin Concent 29.4 g/dl Platelet Count 103 K/uL Mean Platelet Volume 8.4 fL Neutrophils (%) (Auto) 77.1 % Lymphocytes (%) (Auto) 9.6 % Monocytes (%) (Auto) 12.0 % Eosinophils (%) (Auto) 0.1 % Basophils (%) (Auto) 0.1 % Neutrophils # (Auto) 5.47 K/uL Lymphocytes # (Auto) 0.68 K/uL Monocytes # (Auto) 0.85 K/uL Eosinophils # (Auto) 0.01 K/uL Basophils # (Auto) 0.01 K/uL RDW Standard Deviation 56.8 fL RDW Coefficient of Variation 14.8 % Immature Granulocyte % (Auto) 1.1 % Immature Granulocyte # (Auto) 0.08 K/uL Hypochromasia PRESENT Sodium Level 137 mmol/L Potassium Level 3.9 mmol/L Chloride Level 91 mmol/L Carbon Dioxide Level 49 mmol/L Anion Gap -3.0 mmol/L Blood Urea Nitrogen 18 mg/dl Creatinine 0.26 mg/dl Est Creatinine Clear Calc Drug Dose 280.6 ml/min Estimated GFR () > 150.0 Estimated GFR (Non- 146.7 BUN/Creatinine Ratio 70.7 Random Glucose 109 mg/dl Calcium Level 8.9 mg/dl Magnesium Level 1.5 mg/dl Assessment and Plan Patient is a 67 year old male with a PMH of metastatic lung adenocarcinoma, 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 Multiple hospital visits due to hypoxic respiratory failure. Admitted 06/14 with hypoxia due to COPD exacerbation in addition to intractable pain due to bone metastasis. He was discharged to home on Trilogy machine for nocturnal use on 07/03/17. The pt presents with cough, fever and SOB. He was noted to have an 02 saturation in the mid 70s at home and sent to the hospital therefore. He denies acute CP, n/v , diarrhea or dysuria. His pain has been fairly well controlled. A CXR reveals B/L basilar infiltrates. It appears as though these are chronic although a R infiltrate may be worsening. The pt is requiring BiPAP at the time of admission. He was febrile and tachycardic, with sepsis and Flu A +. Acute/chronic hypercarbic/hypoxic respiratory failure/severe end-stage COPD multifactorial including influenza A infection, recurrent pneumonia, end-stage COPD with probable exacerbation, and progressive lung cancer.-With profound hypoxia at times to the 70s, especially when in the setting of rapid atrial fibrillation even while on trilogy. Switched to BiPAP with settings 12/5 and initially FiO2 100% and weaned down to 40% with improvement of hypoxia. His girlfriend took his trilogy machine home and he will just use BiPAP for now Metabolic alkalosis compensatory for chronic hypercapnic respiratory failure- bicarb up to 53 but now down to 49 after using BiPAP. ABG shows he is well compensated with pH is 7.35/PaCO2 94/PaO2 66 His previous air hunger is significantly improved with the addition of Roxanol as needed. Initially treated for gram negative etiology and MRSA in light of frequent healthcare exposures, but no history of MRSA in the past and MRSA swab. Negative Pro calcitonin negative -Discontinued vancomycin and Zosyn after 2 days -Completed a 5 day course of azithromycin for severe COPD exacerbation -continue BiPAP for now at current settings, will be determined whether the trilogy will be able to support him well enough once he leaves here -he again confirms he does not desire intubation given his low likelihood of weaning off the vent as discussed -Continue p.o. prednisone and taper down as able to-long slow taper-continues at 60 mg daily and will switch to 50 mg tomorrow -continue bronchodilators -Continue Roxanol 5-10 mg po q2h prn breathlessness and/or pain -consulted Palliative Care and after family meeting, decision is made to go to SNF until strong enough to go home with possible referral to home hospice at that point Rapid atrial fibrillation-new in onset, asymptomatic, rates in the 140s, caused worsening hypoxia. Improvement of his respiratory status did improve his heart rate to the low 100s. Patient did not desire to be moved to telemetry unit. Given underlying severe lung disease and likelihood to remain in A. fib, rate control strategy adopted Has converted to normal sinus rhythm today. Blood pressure and heart rate acceptable on p.o. diltiazem. -Cardiology consulted appreciated -Continue diltiazem 30 mg 3 times daily for rate control -Continue Lovenox 120 mg daily full dose anticoagulation for CVA prevention -Remain on medical floor as per patient's request Influenza A infection -completed 5 days of Tamiflu. Improved, afebrile -Supportive care. Stage 4 lung cancer - Dr. Biggs has seen the pt here and says treatment was actually completed and if he progressed, no further treatment would be done at this point given numerous hospitalizations for PNA, COPD exacerbations. He is doing very poorly overall and his functional status has declined significantly. -Palliative Care consult as above -Follow-up with oncology as an outpatient Hyperglycemia - likely 2nd to stress & steroids; blood glucose fairly well controlled, no diagnosis of diabetes-discontinued Accu-Cheks Pancytopenia - 2nd to influenza vs cancer? WBC is now improved but he is on steroids, hemoglobin with slight drop today, platelets decreasing the last couple of days. Baseline Hb is about 8-9. Slowly worsening follow CBC periodically Consider Tx only if Hb<7.5. right pathological clavicular fracture -still with some pain, he is in a sling. -Initially increased fentanyl patch to 112mcg q72h. -Continue Roxanol which is helping -Discontinued oxycodone constipation -opioid induced, improved -Continue bowel regimen with miralax + senna although he has been refusing the senna BPH - flomax. Voiding fine. CAD with history of 3 stents in 2009-has not followed with cardiology since that time -No ischemic sx's at this time. folic acid def previously - cont folate supplementation. nonsustained V-tach - patient had a single, 10-beat run of such. NO symptoms. Patient does not desire to be on telemetry Hypomagnesemia-magnesium replaced again today Follow electrolytes DVT proph Lovenox Disposition-plan for discharge to SNF if becomes medically stable-no bed available today, POLST form filled out with palliative care with plans for limited interventions with possible return to hospital if needed DNR/DNI
[2017-07-14] MEDS: MoRPHine SULFATE 10 MG/0.5 ML UDP PO PRN (20:12)
[2017-07-14] MEDS: VENLAFAXINE HCL XR 150 MG CAPXR PO SCH (20:13)
[2017-07-14] MEDS: TAMSULOSIN HCL 0.4 MG CAP PO SCH (20:14)
[2017-07-15] VITALS (15 sets, daily range): BP systolic 110–120; BP diastolic 52–66; PULSE 60–154; TEMP 36.3–37; O2SAT 91–100
[2017-07-15] MEDS: MoRPHine SULFATE 5 MG/0.25 ML UDP PO PRN (03:11)
[2017-07-15] MEDS: ALBUT/IPRATROP 3MG/0.5MG NEB 3 ML VIAL INH SCH ×6 (03:56→23:20)
[2017-07-15 06:13] LABS: BASO % 0.1 %; BASO ABS # 0.01 K/uL (0-0.2); EOS % 0.1 %; EOS ABS # 0.01 K/uL (0-0.5); HEMATOCRIT 27.4 % (42-52); HEMOGLOBIN 8.3 g/dL (14.0-18.0); IG# 0.06 K/uL (0.00-0.02); LYMPH % 10.4 %; LYMPH ABS # 0.72 K/uL (1.2-3.4); MEAN CORPUSCULAR HEMOGLOBIN 31.8 pg (25-34); MEAN CORPUSCULAR HGB CONC 30.3 g/dl (32-36); MEAN PLATELET VOLUME 8.7 fL (7.4-10.4); MONO % 12.4 %; MONO ABS # 0.86 K/uL (0.11-0.59); NEUT % 76.1 %; NEUT ABS # 5.27 K/uL (1.4-6.5); PLATELET COUNT 124 K/uL (130-400); RED CELL DISTRIBUTION WIDTH CV 14.8 % (11.5-14.5); RED CELL DISTRIBUTION WIDTH SD 56.2 fL (36.4-46.3); WHITE BLOOD COUNT 6.93 K/uL (4.8-10.8)
[2017-07-15 06:43] LABS: BLOOD UREA NITROGEN 16 mg/dl (7-18); CREATININE 0.29 mg/dl (0.60-1.40); GLUCOSE 100 mg/dl (70-99); SODIUM 135 mmol/L (136-145)
[2017-07-15 07:06] LABS: CARBON DIOXIDE 50 mmol/L (21-32)
[2017-07-15] MEDS: POLYETHYLENE (MIRALAX) 17 GM PACK PO SCH (08:00)
[2017-07-15] MEDS: MoRPHine SULFATE 10 MG/0.5 ML UDP PO PRN ×2 (08:03→20:20)
[2017-07-15] MEDS: DILTIAZEM HCL 30 MG TAB PO SCH ×3 (08:04→20:23)
[2017-07-15] MEDS: GUAIFENESIN 600 MG TABCR PO SCH ×2 (08:04→20:24)
[2017-07-15] MEDS: CHOLECALCIFEROL 1000 INTER.UNIT TAB PO SCH (08:04)
[2017-07-15] MEDS: GABAPENTIN 600 MG TAB PO SCH ×3 (08:04→20:22)
[2017-07-15] MEDS: SENNA 8.6 MG TAB PO SCH (08:05)
[2017-07-15] MEDS: CHECK FENTANYL PATCH PLACEMENT SCH ×3 (08:05→23:29)
[2017-07-15] MEDS: FINASTERIDE 5 MG TAB PO SCH (08:05)
[2017-07-15] MEDS: ENOXAPARIN 120 MG/0.8 ML SYR SQ SCH (08:06)
[2017-07-15] MEDS: FENTANYL 12 MCG/HR TDSY TD SCH (08:07)
[2017-07-15] MEDS: FENTANYL 100 MCG/HR TDSY TD SCH (08:07)
[2017-07-15] MEDS: FENTANYL PATCH REMOVE & WASTE SCH (08:11)
[2017-07-15] MEDS: MAGNESIUM SULFATE 1GM / D5W 1 GM in PREMIXED IN D5W 100 ML IV SCH ×2 (10:38→12:40)
[2017-07-15] MEDS: MAGNESIUM OXIDE 400 MG TAB PO SCH (20:21)
[2017-07-15] MEDS: TAMSULOSIN HCL 0.4 MG CAP PO SCH (20:22)
[2017-07-15] MEDS: VENLAFAXINE HCL XR 150 MG CAPXR PO SCH (20:22)
--- NOTE | 2017-07-15 20:53 | Progress Note ---
Subjective Date of Service: Jul 15, 2017. Subjective Pt evaluation today including: conversation w/ patient, physical exam, chart review, lab review, conversation w/ neuropsychology medical consultant (palliative care), review of inpatient medication list Pain: right shoulder PO Intake: "good" Voiding: no voiding problems patient sleeping soundly on BIPAP when I entered room he was diaphoretic/perspiring I woke him up and he denied any complaints of cp or dyspnea he said - "Doc, I'm not giving up" he voiced he was hoping "to rehab" at [facility] before going home Problem List Medical Problems: (1) Acute bronchitis Status: Acute (2) Acute on chronic respiratory failure with hypoxia Status: Acute (3) Acute respiratory failure with hypoxia and hypercapnia Status: Acute (4) Acute respiratory failure with hypoxia and hypercarbia Status: Acute (5) Anemia Status: Acute (6) Bilateral pulmonary embolism Status: Acute (7) Bronchitis Status: Acute (8) CO2 narcosis Status: Acute (9) Dehydration Status: Acute (10) Dehydration Status: Acute (11) Dyspnea Status: Acute (12) Dysuria Status: Acute (13) Generalized weakness Status: Acute (14) Hematuria Status: Acute (15) Hematuria Status: Acute (16) Hematuria Status: Acute (17) Hypotension Status: Acute (18) Hypotension Status: Acute (19) Hypoxia Status: Chronic (20) Hypoxia Status: Acute (21) Hypoxia Status: Acute (22) Hypoxia Status: Acute (23) Hypoxia Status: Acute (24) Left rib fracture Status: Acute (25) Lung cancer Status: Acute (26) Mediastinal lymphadenopathy Status: Acute (27) Metastatic lung cancer (metastasis from lung to other site) Status: Acute (28) Metastatic lung cancer (metastasis from lung to other site) Status: Chronic (29) Neutropenia Status: Acute (30) Neutropenia Status: Acute (31) Non-traumatic compression fracture of T5 thoracic vertebra Status: Acute (32) Osteolytic 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 Status: Acute (33) Pathological fracture of rib of right side Status: Acute (34) Pulmonary nodules Status: Acute (35) Right shoulder pain Status: Acute (36) Sepsis Status: Acute (37) SVT (supraventricular tachycardia) Status: Acute (38) Thrombocytopenia Status: Acute (39) Weakness Status: Acute Review of Systems Constitutional: No fever Respiratory: + cough, + dyspnea on exertion Cardiac: No chest pain, No orthopnea Abdomen: + constipation, No pain Objective Vital Signs Date Time Temp Pulse Resp B/P (MAP) Pulse Ox O2 Delivery O2 Flow Rate FiO2 07/15/17 19:24 37.0 60 18 113/65 (81) 92 5.0 07/15/17 19:14 79 16 92 Nasal Cannula 5.0 07/15/17 15:34 85 16 93 Nasal Cannula 5.0 07/15/17 15:21 36.7 69 18 114/59 (77) 96 CPAP 07/15/17 12:02 36.5 68 18 111/52 (71) 93 CPAP 07/15/17 11:19 74 95 40 07/15/17 11:18 74 11 95 BiPAP/CPAP 40 07/15/17 09:02 154 91 40 07/15/17 08:00 Nasal Cannula 6.0 07/15/17 07:35 36.6 72 18 112/53 (72) 100 Nebulizer 07/15/17 07:10 70 18 96 Nasal Cannula 6.0 07/15/17 03:56 98 Nasal Cannula 6.0 07/15/17 03:30 36.3 81 20 120/66 (84) 96 BiPAP 07/15/17 01:03 98 Nasal Cannula 6.0 07/14/17 23:36 87 98 40 07/14/17 23:36 87 18 98 BiPAP/CPAP 40 07/14/17 23:20 37.2 77 18 136/68 (90) 100 Nasal Cannula 6.0 Physical Exam General Appearance: no apparent distress, + pertinent finding (BIPAP on, perspiring ) ENT: pharynx normal Neck: no JVD Respiratory/Chest: no respiratory distress, no accessory muscle use, + wheezing (extensive), + pertinent finding (course BS b/l with rales) Cardiovascular: regular rate, rhythm, no gallop Abdomen: normal bowel sounds, non tender, no organomegaly, + distended (mild) Extremities: no pedal edema 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: alert, oriented x 3 Laboratory Results Last 24 Hours Test 07/15/17 05:45 White Blood Count 6.93 K/uL Red Blood Count 2.61 M/uL Hemoglobin 8.3 g/dL Hematocrit 27.4 % Mean Corpuscular Volume 105.0 fL Mean Corpuscular Hemoglobin 31.8 pg Mean Corpuscular Hemoglobin Concent 30.3 g/dl Platelet Count 124 K/uL Mean Platelet Volume 8.7 fL Neutrophils (%) (Auto) 76.1 % Lymphocytes (%) (Auto) 10.4 % Monocytes (%) (Auto) 12.4 % Eosinophils (%) (Auto) 0.1 % Basophils (%) (Auto) 0.1 % Neutrophils # (Auto) 5.27 K/uL Lymphocytes # (Auto) 0.72 K/uL Monocytes # (Auto) 0.86 K/uL Eosinophils # (Auto) 0.01 K/uL Basophils # (Auto) 0.01 K/uL RDW Standard Deviation 56.2 fL RDW Coefficient of Variation 14.8 % Immature Granulocyte % (Auto) 0.9 % Immature Granulocyte # (Auto) 0.06 K/uL Basophilic Stippling OCCASIONAL Sodium Level 135 mmol/L Potassium Level 4.0 mmol/L Chloride Level 90 mmol/L Carbon Dioxide Level 50 mmol/L Anion Gap -5.0 mmol/L Blood Urea Nitrogen 16 mg/dl Creatinine 0.29 mg/dl Est Creatinine Clear Calc Drug Dose 251.8 ml/min Estimated GFR () > 150.0 Estimated GFR (Non- 140.3 BUN/Creatinine Ratio 54.6 Random Glucose 100 mg/dl Calcium Level 9.0 mg/dl Magnesium Level 1.6 mg/dl Assessment and Plan 67yo male - 1. acute/chronic hypercarbic/hypoxic respiratory failure - multifactorial including influenza A infection, end-stage COPD with exacerbation, and progressive lung cancer. Ongoing, with frequent need for BIPAP. I cannot rule out element of acute CHF but less likely. 2. influenza A infection - completed tamiflu course. 3. COPD with exacerbation - on slow, steroid taper. Leave at 50mg today. Cont nebs and supportive care. 4. progressive stage 4 lung cancer - numerous discussions this admission by multiple providers and palliative care team re: poor prognosis. Hospice has been discussed, but patient unwilling to accept hospice route at this time. He is a DNR level 5 however. He will likely go to SNF after discharge. I have high doubt he could return home unless he was enrolled in a hospice program. Cont palliative care, pain control, dyspnea control, etc. 5. recurrent b/l pneumonia - all antibiotics have been d/c. It is thought that most of this admission was due to flu A infection and COPD exacerbation. 6. hyperglycemia - resolved. 7. DVT proph - lovenox. 8. pancytopenia - WBC count improved; platelets mildly low but stable; H/H low but stable. 9. right pathological clavicular fracture - sling. Increased fentanyl patch to 112mcg q72h earlier this stay with oxycodone prn. 10. constipation - bowel regimen with miralax + senna. Increase latter to 4 tabs daily. 11. BPH - flomax. . 12. CAD - no ischemic sx's at this time. 13. folic acid def previously - cont folate supplementation. 14. nonsustained V-tach - patient had a single, 10-beat run of such early in admission w/ no recurrence. 15. PAF - resolved, back in NSR. Cont rate control. On lovenox therapeutic dosing. social work assistance w/ dispo appreciated palliative care assistance appreciated russell Cancino, significant other, tomorrow Continued [facility] stay due to: multiple IV medications needed, home environment unsafe for pt [facility]
[2017-07-16] VITALS (15 sets, daily range): BP systolic 95–133; BP diastolic 55–83; PULSE 59–111; TEMP 36–37; O2SAT 90–100
[2017-07-16] MEDS: MoRPHine SULFATE 10 MG/0.5 ML UDP PO PRN ×3 (00:50→20:35)
[2017-07-16 06:28] LABS: BLOOD UREA NITROGEN 19 mg/dl (7-18); CALCIUM 8.9 mg/dl (8.5-10.1); GLUCOSE 85 mg/dl (70-99); POTASSIUM 4.3 mmol/L (3.5-5.1); SODIUM 136 mmol/L (136-145)
[2017-07-16 06:40] LABS: CARBON DIOXIDE 46 mmol/L (21-32)
[2017-07-16] MEDS: ALBUT/IPRATROP 3MG/0.5MG NEB 3 ML VIAL INH SCH ×5 (07:15→23:05)
[2017-07-16] MEDS: SENNA 8.6 MG TAB PO SCH (08:00)
[2017-07-16] MEDS: POLYETHYLENE (MIRALAX) 17 GM PACK PO SCH (08:00)
[2017-07-16] MEDS: GABAPENTIN 600 MG TAB PO SCH ×3 (08:07→20:30)
[2017-07-16] MEDS: MAGNESIUM OXIDE 400 MG TAB PO SCH ×2 (08:07→20:30)
[2017-07-16] MEDS: CHOLECALCIFEROL 1000 INTER.UNIT TAB PO SCH (08:07)
[2017-07-16] MEDS: CHECK FENTANYL PATCH PLACEMENT SCH ×2 (08:07→16:00)
[2017-07-16] MEDS: DILTIAZEM HCL 30 MG TAB PO SCH ×3 (08:07→20:30)
[2017-07-16] MEDS: ENOXAPARIN 120 MG/0.8 ML SYR SQ SCH (08:08)
[2017-07-16] MEDS: FINASTERIDE 5 MG TAB PO SCH (08:08)
[2017-07-16] MEDS: GUAIFENESIN 600 MG TABCR PO SCH ×2 (08:08→20:30)
[2017-07-16] MEDS: MAGNESIUM SULFATE 1GM / D5W 1 GM in PREMIXED IN D5W 100 ML IV SCH ×2 (10:28→11:30)
--- NOTE | 2017-07-16 17:15 | Progress Note ---
Subjective Date of Service: Jul 16, 2017. Subjective Pt evaluation today including: conversation w/ patient, conversation w/ family (Julita, significant other), physical exam, chart review, lab review Pain: right shoulder - but improved PO Intake: eating fine Voiding: no voiding problems today he noted on his personal pulse oximeter that his pulse was rapid - at least 110BPM in response to such - not because of dyspnea or desaturation - he put himself on BIPAP he has remained on BIPAP since he is sometimes placing himself on BIPAP right after eating denies any other new issues reviewed PT's note - walking very little and quickly desatting Problem List Medical Problems: (1) Acute bronchitis Status: Acute (2) Acute on chronic respiratory failure with hypoxia Status: Acute (3) Acute respiratory failure with hypoxia and hypercapnia Status: Acute (4) Acute respiratory failure with hypoxia and hypercarbia Status: Acute (5) Anemia Status: Acute (6) Bilateral pulmonary embolism Status: Acute (7) Bronchitis Status: Acute (8) CO2 narcosis Status: Acute (9) Dehydration Status: Acute (10) Dehydration Status: Acute (11) Dyspnea Status: Acute (12) Dysuria Status: Acute (13) Generalized weakness Status: Acute (14) Hematuria Status: Acute (15) Hematuria Status: Acute (16) Hematuria Status: Acute (17) Hypotension Status: Acute (18) Hypotension Status: Acute (19) Hypoxia Status: Chronic (20) Hypoxia Status: Acute (21) Hypoxia Status: Acute (22) Hypoxia Status: Acute (23) Hypoxia Status: Acute (24) Left rib fracture Status: Acute (25) Lung cancer Status: Acute (26) Mediastinal lymphadenopathy Status: Acute (27) Metastatic lung cancer (metastasis from lung to other site) Status: Acute (28) Metastatic lung cancer (metastasis from lung to other site) Status: Chronic (29) Neutropenia Status: Acute (30) Neutropenia Status: Acute (31) Non-traumatic compression fracture of T5 thoracic vertebra Status: Acute (32) Osteolytic 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 Status: Acute (33) Pathological fracture of rib of right side Status: Acute (34) Pulmonary nodules Status: Acute (35) Right shoulder pain Status: Acute (36) Sepsis Status: Acute (37) SVT (supraventricular tachycardia) Status: Acute (38) Thrombocytopenia Status: Acute (39) Weakness Status: Acute Review of Systems Constitutional: No fever Respiratory: + cough, + dyspnea on exertion, + dyspnea at rest Cardiac: No chest pain Abdomen: + constipation (had stool yesterday but firm/hard ), No pain Objective Vital Signs Date Time Temp Pulse Resp B/P (MAP) Pulse Ox O2 Delivery O2 Flow Rate FiO2 07/16/17 16:09 86 14 94 Nasal Cannula 4.0 07/16/17 15:38 37.0 88 18 122/63 (82) 90 Nasal Cannula 6.0 07/16/17 11:20 78 14 98 Nasal Cannula 5.0 07/16/17 11:06 36.9 79 19 113/63 (80) 97 Nasal Cannula 5.0 07/16/17 08:00 98 Nasal Cannula 5.0 07/16/17 07:16 36.8 67 17 110/58 (75) 98 Nasal Cannula 5.0 07/16/17 07:15 68 14 96 Nasal Cannula 5.0 07/16/17 03:46 36.0 59 18 95/55 (68) 98 CPAP 07/16/17 03:31 87 12 98 BiPAP/CPAP 40 07/16/17 03:30 87 98 40 07/16/17 01:00 67 91 40 07/16/17 00:00 Nasal Cannula 5.0 07/15/17 23:22 37.0 66 20 110/63 (79) 95 Nasal Cannula 5.0 07/15/17 23:22 72 16 92 Nasal Cannula 5.0 07/15/17 20:00 92 Nasal Cannula 6.0 07/15/17 19:24 37.0 60 18 113/65 (81) 92 5.0 07/15/17 19:14 79 16 92 Nasal Cannula 5.0 Physical Exam General Appearance: no apparent distress, + pertinent finding (talking, a/o x 3 , on BIPAP) ENT: pharynx normal (no obvious thrush) Neck: no JVD Respiratory/Chest: no respiratory distress, no accessory muscle use, + crackles , + rhonchi, + wheezing Cardiovascular: no gallop, no murmur, + tachycardia Abdomen: normal bowel sounds, non tender, no organomegaly, + distended (mild, maybe slightly worse than yesterday) Extremities: no pedal edema 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: alert, oriented x 3 Skin: + pallor Laboratory Results Last 24 Hours Test 07/16/17 05:45 Sodium Level 136 mmol/L Potassium Level 4.3 mmol/L Chloride Level 89 mmol/L Carbon Dioxide Level 46 mmol/L Anion Gap 2.0 mmol/L Blood Urea Nitrogen 19 mg/dl Creatinine 0.30 mg/dl Est Creatinine Clear Calc Drug Dose 245.6 ml/min Estimated GFR () > 150.0 Estimated GFR (Non- 138.3 BUN/Creatinine Ratio 64.0 Random Glucose 85 mg/dl Calcium Level 8.9 mg/dl Magnesium Level 1.7 mg/dl Assessment and Plan 67yo male - 1. acute/chronic hypercarbic/hypoxic respiratory failure - multifactorial including influenza A infection, end-stage COPD with exacerbation, and progressive lung cancer. Continues with frequent need for BIPAP. I discussed with him that o2 sats of 88 -92% are acceptable and encouraged him to use the NC O2 if he is not dyspneic or struggling. Continue roxinol prn as well. 2. influenza A infection - completed tamiflu course. Afebrile. 3. COPD with exacerbation - on slow, steroid taper. Cut to 40mg tomorrow. Cont nebs, etc. 4. progressive stage 4 lung cancer - numerous discussions this admission by multiple providers and palliative care team re: poor prognosis. Hospice has been discussed, but patient unwilling to accept hospice route at this time. He is a DNR level 5 however. He will likely go to SNF after discharge. I have high doubt he could return home unless he was enrolled in a hospice program. Cont palliative care, pain control, dyspnea control, etc. I am uncertain if SNF will take him if he is using BIPAP so frequently. 5. recurrent b/l pneumonia - all antibiotics have been d/c. 6. hyperglycemia - resolved. 7. DVT proph - lovenox. 8. pancytopenia - CBC in am for stability. 9. right pathological clavicular fracture - sling. Cont fentanyl patch + oxycodone prn. 10. constipation - bowel regimen with miralax + senna. Has distension on exam - probably has some element of ileus from his narcotics. 11. BPH - flomax. 12. CAD - no ischemic sx's at this time. 13. folic acid def previously - cont folate supplementation. 14. nonsustained V-tach - patient had a single, 10-beat run of such early in admission w/ no recurrence. 15. PAF - resolved, went back to NSR; cannot rule out intermittent runs of a. fib. Cont rate control. On lovenox therapeutic dosing. awaiting SNF placement at [facility] nicol Cancino, significant other, at bedside today appreciate social work & palliative care assistance Continued [facility] stay due to: multiple IV medications needed, home environment unsafe for pt Discharge planning: [facility] facility
[2017-07-16] MEDS: VENLAFAXINE HCL XR 150 MG CAPXR PO SCH (20:30)
[2017-07-16] MEDS: TAMSULOSIN HCL 0.4 MG CAP PO SCH (20:30)
[2017-07-17] VITALS (12 sets, daily range): BP systolic 112–125; BP diastolic 54–71; PULSE 67–88; TEMP 36.6–37.1; O2SAT 92–100
[2017-07-17] MEDS: MoRPHine SULFATE 10 MG/0.5 ML UDP PO PRN ×3 (00:02→19:53)
[2017-07-17] MEDS: CHECK FENTANYL PATCH PLACEMENT SCH ×4 (00:02→23:59)
[2017-07-17] MEDS: ALBUT/IPRATROP 3MG/0.5MG NEB 3 ML VIAL INH SCH ×5 (01:50→23:05)
[2017-07-17 05:51] LABS: HEMATOCRIT 28.7 % (42-52); HEMOGLOBIN 8.9 g/dL (14.0-18.0); MEAN CELL VOLUME 103.6 fL (80-100); MEAN CORPUSCULAR HEMOGLOBIN 32.1 pg (25-34); MEAN PLATELET VOLUME 8.4 fL (7.4-10.4); PLATELET COUNT 110 K/uL (130-400); RED CELL DISTRIBUTION WIDTH SD 55.6 fL (36.4-46.3); WHITE BLOOD COUNT 8.55 K/uL (4.8-10.8)
[2017-07-17] MEDS: GABAPENTIN 600 MG TAB PO SCH ×3 (07:26→19:53)
[2017-07-17] MEDS: CHOLECALCIFEROL 1000 INTER.UNIT TAB PO SCH (07:27)
[2017-07-17] MEDS: DILTIAZEM HCL 30 MG TAB PO SCH ×3 (07:27→19:53)
[2017-07-17] MEDS: GUAIFENESIN 600 MG TABCR PO SCH ×2 (07:28→20:34)
[2017-07-17] MEDS: FINASTERIDE 5 MG TAB PO SCH (07:29)
[2017-07-17] MEDS: MAGNESIUM OXIDE 400 MG TAB PO SCH ×2 (07:29→19:52)
[2017-07-17] MEDS: ENOXAPARIN 120 MG/0.8 ML SYR SQ SCH (07:30)
[2017-07-17] MEDS: POLYETHYLENE (MIRALAX) 17 GM PACK PO SCH ×2 (07:35→13:49)
[2017-07-17] MEDS: SENNA 8.6 MG TAB PO SCH (07:36)
--- NOTE | 2017-07-17 11:27 | Progress Note ---
Subjective Date of Service: Jul 17, 2017. Subjective Pt evaluation today including: conversation w/ patient, physical exam, chart review, lab review, conversation w/ management consultant (palliative care ) Pain: right shoulder but "doing better" / "Ok" PO Intake: eating well Voiding: no voiding problems no major change in cough, congestion, dyspnea "I think I am doing well with my strength" still very hopeful he will "get better" at [facility] with therapy he wants to go to [facility] tomorrow Problem List Medical Problems: (1) Acute bronchitis Status: Acute (2) Acute on chronic respiratory failure with hypoxia Status: Acute (3) Acute respiratory failure with hypoxia and hypercapnia Status: Acute (4) Acute respiratory failure with hypoxia and hypercarbia Status: Acute (5) Anemia Status: Acute (6) Bilateral pulmonary embolism Status: Acute (7) Bronchitis Status: Acute (8) CO2 narcosis Status: Acute (9) Dehydration Status: Acute (10) Dehydration Status: Acute (11) Dyspnea Status: Acute (12) Dysuria Status: Acute (13) Generalized weakness Status: Acute (14) Hematuria Status: Acute (15) Hematuria Status: Acute (16) Hematuria Status: Acute (17) Hypotension Status: Acute (18) Hypotension Status: Acute (19) Hypoxia Status: Chronic (20) Hypoxia Status: Acute (21) Hypoxia Status: Acute (22) Hypoxia Status: Acute (23) Hypoxia Status: Acute (24) Left rib fracture Status: Acute (25) Lung cancer Status: Acute (26) Mediastinal lymphadenopathy Status: Acute (27) Metastatic lung cancer (metastasis from lung to other site) Status: Acute (28) Metastatic lung cancer (metastasis from lung to other site) Status: Chronic (29) Neutropenia Status: Acute (30) Neutropenia Status: Acute (31) Non-traumatic compression fracture of T5 thoracic vertebra Status: Acute (32) Osteolytic 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 Status: Acute (33) Pathological fracture of rib of right side Status: Acute (34) Pulmonary nodules Status: Acute (35) Right shoulder pain Status: Acute (36) Sepsis Status: Acute (37) SVT (supraventricular tachycardia) Status: Acute (38) Thrombocytopenia Status: Acute (39) Weakness Status: Acute Review of Systems Constitutional: No fever, No chills Respiratory: + cough, + wheezing, + shortness of breath, + dyspnea on exertion , No sputum Cardiac: No chest pain Abdomen: + constipation, No pain Objective Vital Signs Date Time Temp Pulse Resp B/P (MAP) Pulse Ox O2 Delivery O2 Flow Rate FiO2 07/17/17 08:00 100 Nasal Cannula 5.0 07/17/17 07:03 36.8 75 18 112/71 (85) 100 Nasal Cannula 6.0 07/17/17 03:55 36.6 67 20 119/61 (80) 100 Nasal Cannula 5.0 07/17/17 00:00 Nasal Cannula 4.0 07/16/17 23:38 36.9 66 20 118/61 (80) 97 Nasal Cannula 5.0 07/16/17 23:07 40 07/16/17 23:05 85 16 96 Nasal Cannula 4.0 07/16/17 19:14 36.7 111 16 133/83 (100) 100 Nasal Cannula 5.0 07/16/17 19:00 88 14 94 Nasal Cannula 4.0 07/16/17 17:05 Nasal Cannula 5.0 07/16/17 16:09 86 14 94 Nasal Cannula 4.0 07/16/17 15:38 37.0 88 18 122/63 (82) 90 Nasal Cannula 6.0 Physical Exam General Appearance: no apparent distress, + pertinent finding (coughing, a/o x 3) ENT: + pertinent finding (probable mild thrush ) Neck: no JVD Respiratory/Chest: no respiratory distress, no accessory muscle use, + decreased breath sounds, + crackles, + rhonchi, + wheezing Cardiovascular: regular rate, rhythm, no gallop, no murmur Abdomen: normal bowel sounds, non tender, no organomegaly, + distended (no change) Extremities: no pedal edema 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: alert, oriented x 3 Skin: + pallor Laboratory Results Last 24 Hours Test 07/16/17 20:30 07/17/17 05:40 Bedside Glucose 195 mg/dl White Blood Count 8.55 K/uL Red Blood Count 2.77 M/uL Hemoglobin 8.9 g/dL Hematocrit 28.7 % Mean Corpuscular Volume 103.6 fL Mean Corpuscular Hemoglobin 32.1 pg Mean Corpuscular Hemoglobin Concent 31.0 g/dl RDW Standard Deviation 55.6 fL RDW Coefficient of Variation 15.0 % Platelet Count 110 K/uL Mean Platelet Volume 8.4 fL Magnesium Level 1.8 mg/dl Assessment and Plan 67yo male - 1. acute/chronic hypercarbic/hypoxic respiratory failure - multifactorial including influenza A infection, end-stage COPD with exacerbation, and progressive lung cancer. Continues with frequent need for BIPAP. I discussed with him that o2 sats of 88 -92% are acceptable and encouraged him to use the NC O2 if he is not dyspneic or struggling. Continue roxinol prn as well. Wean prednisone every 3-4 days. 2. influenza A infection - completed tamiflu course. Afebrile. Resolved. 3. COPD with exacerbation - on slow, steroid taper. Continue 40mg x 3 days, then cont weaning. Cont nebs, etc. 4. progressive stage 4 lung cancer - numerous discussions this admission by multiple providers and palliative care team re: poor prognosis. Hospice has been discussed, but patient unwilling to accept hospice route at this time. He is a DNR level 5 however. He will go to SNF ([facility]). I have high doubt he could return home unless he was enrolled in a hospice program. Cont palliative care, pain control, dyspnea control, etc. 5. recurrent b/l pneumonia - all antibiotics have been d/c. 6. hyperglycemia - resolved. 7. DVT proph - lovenox. 8. pancytopenia - CBC in am for stability. 9. right pathological clavicular fracture - sling. Cont fentanyl patch + oxycodone prn. 10. constipation - bowel regimen with miralax + senna. Has distension on exam - probably has some element of ileus from his narcotics. I have continued to encourage him to continue with his bowel regimen. 11. BPH - flomax. 12. CAD - no ischemic sx's at this time. 13. folic acid def previously - cont folate supplementation. 14. nonsustained V-tach - patient had a single, 10-beat run of such early in admission w/ no recurrence. 15. PAF - resolved, went back to NSR; cannot rule out intermittent runs of a. fib. Cont rate control. On lovenox therapeutic dosing. 16. hypomagnesemia - replaced, now normal. Cont on daily mag supplementation. 17. thrush - nystatin solu QID. dispo - Amador Romney Continued [facility] stay due to: home environment unsafe for pt [facility]charge planning: [facility]
[2017-07-17] MEDS: NYSTATIN SUSP 500,000 U/5 ML UDC PO SCH ×3 (13:50→20:34)
--- NOTE | 2017-07-17 14:23 | Palliative Care Progress Note ---
Palliative Care Progress Note Date of Service Jul 17, 2017. Subjective Pt evaluation today including: conversation w/ patient, physical exam, chart review, conversation w/ organizational research consultant (Dr. Griffin) Pain: controlled Voiding: no voiding problems Patient less SOB today. Able to work with PT/OT, but does have TSE. Pain is controlled with Roxanol, it also helps his breathing. Planning for SNF discharge in next day or two. Review of Systems Constitutional: + weakness (improving) ENT: No trouble swallowing Respiratory: + wheezing (at baseline), + dyspnea on exertion, No dyspnea at rest Cardiac: No chest pain, No edema Abdomen: No pain, No nausea, No vomiting Male : No problem reported Psychiatric: No depression symptoms, No anxiety Objective Vital Signs Date Time Temp Pulse Resp B/P (MAP) Pulse Ox O2 Delivery O2 Flow Rate FiO2 07/17/17 11:34 88 16 96 Nasal Cannula 4.0 07/17/17 08:00 100 Nasal Cannula 5.0 07/17/17 07:03 36.8 75 18 112/71 (85) 100 Nasal Cannula 6.0 07/17/17 03:55 36.6 67 20 119/61 (80) 100 Nasal Cannula 5.0 07/17/17 00:00 Nasal Cannula 4.0 07/16/17 23:38 36.9 66 20 118/61 (80) 97 Nasal Cannula 5.0 07/16/17 23:07 40 07/16/17 23:05 85 16 96 Nasal Cannula 4.0 07/16/17 19:14 36.7 111 16 133/83 (100) 100 Nasal Cannula 5.0 07/16/17 19:00 88 14 94 Nasal Cannula 4.0 07/16/17 17:05 Nasal Cannula 5.0 07/16/17 16:09 86 14 94 Nasal Cannula 4.0 07/16/17 15:38 37.0 88 18 122/63 (82) 90 Nasal Cannula 6.0 Physical Exam General Appearance: no apparent distress, + pertinent finding (appears deconditioned, chronically ill) ENT: hearing grossly normal Neck: supple, no JVD Respiratory/Chest: no respiratory distress, no accessory muscle use, + decreased breath sounds, + rhonchi, + wheezing Cardiovascular: regular rate, rhythm, no edema, + normal peripheral pulses Abdomen: normal bowel sounds, non tender, soft 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: alert, normal mood/affect, oriented x 3 Skin: + pertinent finding (dusky/cyanotic ears and nose but is improved from yesterday) Laboratory Results Last 24 Hours Test 07/16/17 20:30 07/17/17 05:40 Bedside Glucose 195 mg/dl White Blood Count 8.55 K/uL Red Blood Count 2.77 M/uL Hemoglobin 8.9 g/dL Hematocrit 28.7 % Mean Corpuscular Volume 103.6 fL Mean Corpuscular Hemoglobin 32.1 pg Mean Corpuscular Hemoglobin Concent 31.0 g/dl RDW Standard Deviation 55.6 fL RDW Coefficient of Variation 15.0 % Platelet Count 110 K/uL Mean Platelet Volume 8.4 fL Magnesium Level 1.8 mg/dl Assessment and Plan Problem list: Pain related to metastatic lesion of right shoulder SOB/TSE Influenza A Pneumonia Severe COPD Lung cancer, metastatic Afib with RVR Goals of care Palliative care recs: -Patient would like to go to SNF, skilled initially. Will be discharged to [facility] in next day or two. -He will use that time to decide whether he is strong enough to go home and be alone while his S/O is at work OR if he isn't well enough he will stay at SNF for extended care. -Will need to apply for medicaid while at SNF in case long-term placement is needed. -Continue Roxanol as ordered. Pain is well-controlled. Please be sure to order on discharge. -POLST form completed and signed as follows: DNR, limited additional interventions, limited use of abx with comfort as the goal, no artificial hydration/nutrition. -Patient still not agreeing to hospice care upon discharge. I fear that readmission will occur unless patient changes goals of care. He has been resistant to talk about end of life with me or family. I did speak with his S/O Julita outside of room earlier this week, she understands patient has rather poor prognosis and rehab potential. Thank you again for this consult. I will sign off for now but please contact me with any further palliative care needs. Total time spent 25 minutes with >50% of time spent with patient at bedside discussing plan of care. Palliative Performance Scale: 40 % Continued [facility] stay due to: home environment unsafe for pt [facility]charge planning[facility]
[2017-07-17] MEDS: MoRPHine SULFATE 5 MG/0.25 ML UDP PO PRN (16:59)
[2017-07-17] MEDS: TAMSULOSIN HCL 0.4 MG CAP PO SCH (20:34)
[2017-07-17] MEDS: VENLAFAXINE HCL XR 150 MG CAPXR PO SCH (20:34)
[2017-07-18] MEDS: ALBUT/IPRATROP 3MG/0.5MG NEB 3 ML VIAL INH SCH ×5 (02:07→15:31)
[2017-07-18 04:46] VITALS: BP 134/76; PULSE 69; TEMP 37.4; O2SAT 93
[2017-07-18] MEDS: NYSTATIN SUSP 500,000 U/5 ML UDC PO SCH ×3 (05:48→16:30)
[2017-07-18] MEDS: MoRPHine SULFATE 10 MG/0.5 ML UDP PO PRN ×3 (05:49→17:11)
[2017-07-18 05:56] LABS: HEMATOCRIT 27.1 % (42-52); HEMOGLOBIN 8.3 g/dL (14.0-18.0); MEAN CELL VOLUME 105.4 fL (80-100); MEAN CORPUSCULAR HEMOGLOBIN 32.3 pg (25-34); MEAN CORPUSCULAR HGB CONC 30.6 g/dl (32-36); MEAN PLATELET VOLUME 8.4 fL (7.4-10.4); PLATELET COUNT 108 K/uL (130-400); RED CELL DISTRIBUTION WIDTH CV 15.2 % (11.5-14.5); RED CELL DISTRIBUTION WIDTH SD 57.6 fL (36.4-46.3); WHITE BLOOD COUNT 8.74 K/uL (4.8-10.8)
[2017-07-18 06:48] LABS: BLOOD UREA NITROGEN 18 mg/dl (7-18); CALCIUM 9.3 mg/dl (8.5-10.1); CARBON DIOXIDE 45 mmol/L (21-32); CREATININE 0.31 mg/dl (0.60-1.40); GLUCOSE 108 mg/dl (70-99); POTASSIUM 4.1 mmol/L (3.5-5.1); SODIUM 135 mmol/L (136-145)
[2017-07-18 07:14] VITALS: PULSE 85; O2SAT 97
[2017-07-18 07:23] VITALS: BP 112/60; PULSE 77; TEMP 36.7; O2SAT 100
[2017-07-18] MEDS: CHOLECALCIFEROL 1000 INTER.UNIT TAB PO SCH (07:43)
[2017-07-18] MEDS: DILTIAZEM HCL 30 MG TAB PO SCH ×2 (07:43→13:37)
[2017-07-18] MEDS: MAGNESIUM OXIDE 400 MG TAB PO SCH (07:43)
[2017-07-18] MEDS: GUAIFENESIN 600 MG TABCR PO SCH (07:44)
[2017-07-18] MEDS: GABAPENTIN 600 MG TAB PO SCH ×2 (07:44→13:37)
[2017-07-18] MEDS: SENNA 8.6 MG TAB PO SCH (07:44)
[2017-07-18] MEDS: FINASTERIDE 5 MG TAB PO SCH (07:45)
[2017-07-18] MEDS: POLYETHYLENE (MIRALAX) 17 GM PACK PO SCH (07:45)
[2017-07-18] MEDS: ENOXAPARIN 120 MG/0.8 ML SYR SQ SCH (07:45)
[2017-07-18] MEDS: FENTANYL 100 MCG/HR TDSY TD SCH (07:46)
[2017-07-18] MEDS: FENTANYL 12 MCG/HR TDSY TD SCH (07:46)
[2017-07-18] MEDS: CHECK FENTANYL PATCH PLACEMENT SCH ×2 (07:49→16:00)
[2017-07-18] MEDS: FENTANYL PATCH REMOVE & WASTE SCH (07:55)
[2017-07-18 08:00] VITALS: O2SAT 100
[2017-07-18] MEDS ORDERED: PANT40TA PO (10:03)
[2017-07-18] MEDS ORDERED: ONDA8TAB62 SL (10:03)
[2017-07-18] MEDS ORDERED: SENN-61 PO (10:03)
[2017-07-18] MEDS ORDERED: DRGTP12 TD (10:03)
[2017-07-18] MEDS ORDERED: MGNO400 PO (10:03)
[2017-07-18] MEDS ORDERED: PRED10TA PO (10:03)
[2017-07-18] MEDS ORDERED: FNTTP100 TD (10:03)
[2017-07-18] MEDS ORDERED: ALBINS INH (10:03)
[2017-07-18] MEDS ORDERED: OXGN (10:03)
[2017-07-18] MEDS ORDERED: RXNS10 PO (10:03)
[2017-07-18] MEDS ORDERED: IPRASOL4 INH (10:03)
[2017-07-18] MEDS ORDERED: ENOX120I SQ (10:03)
[2017-07-18] MEDS ORDERED: ALPR0.25 PO (10:03)
[2017-07-18] MEDS ORDERED: MRLP17 PO (10:03)
[2017-07-18] MEDS ORDERED: NYSS5 PO (10:03)
[2017-07-18] MEDS ORDERED: DILT120C68 PO (10:08)
--- NOTE | 2017-07-18 10:20 | Discharge Instructions ---
Discharge Instructions Date of Service Jul 18, 2017. Admission Reason for Admission: Metastatic Cancer, Hypoxia, COPD exacerbation Discharge Discharge Diagnosis / Problem: Flu A infection, metastatic lung cancer, COPD exacerbation Discharge Goals Goal(s): Decrease discomfort, Improve disease control, Learn about illness, Diagnostic testing, Therapeutic intervention Activity Recommendations Activity Level: Assistance Required Right arm - keep sling in place at all times. DO NOT ALLOW MR HAGAN TO RAISE THE RIGHT ARM OR PERFORM ANY LIFTING WITH THE RIGHT ARM. . Additional Information Patient informed of condition: Yes Advance Directives: Yes DNR: Yes Level of Care: Skilled Communicable Disease: No Prognosis: Deteriorating Oxygen at (LPM): 4-5 L continuously Mccarty Catheter: No Instructions / Follow-Up Instructions / Follow-Up Please follow-up in 5 days with David Geiger. again o2 sats of 88-92% are acceptable for Mr. Hagan unless he is short of breath or having worsening pulmonary symptoms. please check cbc, bmp, and magnesium level in 3-4 days for stability. patient is at high-risk of readmission to the hospital; please [facility] Current Hospital Diet Patient's current hospital diet: Regular Diet Discharge Diet Recommended Diet: Regular Diet Pending Studies Studies pending at discharge: no Physician Orders On Transfer Vital Signs: per routine with O2 sats O2 sats of 88-92% are ACCEPTABLE Additional Orders: BIPAP 12/5, back-up rate of 8, FiO2 40% use at bedtime and with long naps during the daytime otherwise use 4-5 L of NC O2 continuously at all other times POLST Discussion: without POLST completion Medical Emergencies . Who to Call and When: Medical Emergencies: If at any time you feel your situation is an emergency, please call 911 immediately. . Non-Emergent Contact Non-Emergency issues call your: Primary Care Provider (biomedical repair technician of SNF) Call Non-Emergent contact if: temperature is above 100.5, your pain is not controlled, your pain is worsening, your pain is concerning you, you have any medication questions . . "Provider Documentation" section prepared by Awais Griffin. . Core Measure Problem Core Measures: None
[2017-07-18] MEDS ORDERED: BENZ-54 PO (10:21)
[2017-07-18] MEDS: MAGNESIUM SULFATE 1GM / D5W 1 GM in PREMIXED IN D5W 100 ML IV SCH ×2 (11:01→12:35)
[2017-07-18 11:08] VITALS: PULSE 88; O2SAT 90
[2017-07-18 11:11] VITALS: BP 112/60; PULSE 88; TEMP 36.7; O2SAT 90
[2017-07-18] MEDS: MoRPHine SULFATE 5 MG/0.25 ML UDP PO PRN (13:43)
--- NOTE | 2017-07-20 21:42 | Discharge Summary ---
Discharge Summary Date of Service Jul 20, 2017. Discharge Summary Admission Date: Jul 07, 2017 at 04:40 Discharge Date: Jul 18, 2017 Discharge Disposition: custodial facility ([facility]) Principal Diagnosis: influenza A infection Problems/Secondary Diagnoses: 1. acute/chronic hypercarbic/hypoxic respiratory failure 2. stage 4 lung cancer 3. COPD with exacerbation 4. question of pneumonia 5. paroxysmal atrial fibrillation - resolved 6. hyperglycemia - resolved 7. pancytopenia 8. right pathological clavicular fracture - nonoperative management 9. constipation 10. BPH 11. CAD 12. folic acid deficiency 13. nonsustained V-tach 14. hypomagnesemia 15. thrush Immunizations: Have You Had Influenza Vaccine: No History of Tetanus Vaccine?: No History of Pneumococcal: No History of Hepatitis B Vaccine: No Procedures: chest x-ray Consultations: cardiology palliative care PT, OT Medication Reconciliation New Medications: Alprazolam (Xanax) 0.25 Mg Tab 1 TAB PO Q8H PRN for anxiety for 30 Days, #30 TAB 0 Refills Benzonatate (Tessalon Perles) 100 Mg Cap 100 MG PO Q8H PRN for Cough, #30 CAP 0 Refills Diltiazem Hcl Ext Rel (Tiazac) 120 Mg Capcr 120 MG PO DAILY, #30 CAP 5 Refills Ondansetron Odt (Zofran Odt) 8 Mg Soltab 8 MG SL Q6H PRN for Nausea, #30 TAB 0 Refills Pantoprazole (Protonix) 40 Mg Tab 40 MG PO DAILY, #30 TAB 5 Refills Albuterol Sulf (Albuterol Sulfate) 2.5 Mg/3 Ml Nebu 2.5 MG INH Q2H PRN for Shortness of Breath, #1 BOX Fentanyl (Fentanyl) 12 Mcg Tdsy 12 MCG TD Q72H, #10 PATCH 0 Refills total dose 112 (100 + 12) Magnesium Oxide (Magnesium-Oxide) 400 Mg Tab 400 MG PO BID, #60 TAB 2 Refills Morphine Sulfate (Morphine Sulfate) 10 Mg/0.5 Ml Soln 10 MG PO Q2H PRN for pain or breathlessness, #50 ML 0 Refills Nystatin (Nystatin) 5 Ml Susp 5 ML PO ACHS for 7 Days swish & swallow Polyethylene (Miralax) 17 Gm Pow 17 GM PO DAILY, #1 BTL 0 Refills Senna (Senokot) 8.6 Mg Tab 17.2 MG PO QAM, #60 TAB 2 Refills Changed Medications: Enoxaparin (Lovenox) 120 Mg/0.8 Ml Inj 120 MG SQ QAM, #30 SYR 2 Refills (Changed from: Enoxaparin (Lovenox) 40 Mg/0.4 Ml Inj 40 Mg SQ QAM) Fentanyl (Fentanyl) 100 Mcg Tdsy 100 MCG TD Q72 HOURS., #10 PATCH 0 Refills (Changed from: Refills: ) total dose 112mcg (100 + 12) Home O2 Therapy (Oxygen) Gas 4 LITERS NA CONTINOUS, #1 BTL (Changed from: 3 LITERS) may increase to 5 to maintain o2 sats 88-92% Ipratropium-Albuterol (Duoneb) 3 Ml Nebu 1 TREATMENT INH Q4H, #1 BOX (Changed from: QID) while awake Prednisone Tab (Prednisone) 10 Mg Tab 10 MG PO DIRECTED, #100 TAB 5 Refills (Changed from: QAM; Refills: ) starting 07/19/17: take 4 tabs days 1 & 2, 3 tabs days 3-5, 2 tabs days 6-8, then resume 1 tablet daily thereafter. Continued Medications: Budesonide/Formoterol Fumarate (Symbicort 160/4.5 Inhaler ) Aero 2 PUFFS INH BID, INHALER Finasteride (Finasteride) 5 Mg Tab 5 MG PO QAM Folic Acid (Folic Acid) 1 Mg Tab 1 MG PO QPM Gabapentin (Neurontin) 600 Mg Tab 600 MG PO TID, TAB Guaifenesin Ext Rel (Mucinex Ext Rel) 600 Mg Tab 1200 MG PO Q12, TAB Tamsulosin Hcl (Flomax) 0.4 Mg Cap 0.4 MG PO HS, CAP Venlafaxine Hcl (Effexor Extended Rel) 150 Mg Capcr 150 MG PO QPM, CAP Discontinued Medications: Albuterol Sulfate (Proventil Hfa) 108 Mcg/Act Aer 2 PUFFS INH QID PRN for Wheezing Cholecalciferol (Vitamin D3) 1,000 Unit Tab 4000 UNITS PO QAM for 90 Days, TAB 3 Refills Cholecalciferol (Vitamin D3) 50,000 Unit Cap 89359 UNITS PO WK TAKES ON THURSDAYS. Ipratropium-Albuterol (Combivent Respimat) 1 Aer Aer 1 PUFFS INH TID PRN for SOB/Wheezing, INH Oxycodone Hcl (Oxycodone Hcl) 5 Mg Cap 5 MG PO Q4H PRN for Pain for 30 Days, #120 CAP Discharge Exam Physical Exam: General Appearance: no apparent distress ENT: pharynx normal (resolving thrush) Neck: no JVD Respiratory/Chest: no respiratory distress, no accessory muscle use, + crackles, + rhonchi, + wheezing, + pertinent finding (course BS b/l ) Cardiovascular: regular rate, rhythm, no gallop, no murmur, normal peripheral pulses Abdomen / GI: normal bowel sounds, non tender, no organomegaly, + distended (mild) Extremities: no pedal edema, + pertinent finding (right shoulder in sling) 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: alert, oriented x 3 Skin: + pallor Hospital Course HISTORY OF PRESENT ILLNESS: Patient is a 67 year old male with a PMH of metastatic lung adenocarcinoma, chronic hypoxic/hypercarbic respiratory failure 2nd to COPD, CAD, PE, and chronic anemia. He has had numerous hospital visits due to hypoxic respiratory failure over the last 6 months. He was admitted for nearly 3 weeks in June- July with hypoxia due to COPD exacerbation in addition to intractable pain due to bone metastasis. The pt presented this admission with cough, fever and SOB. He was noted to have an 02 saturation in the mid 70s at home and sent to the hospital. He denied acute CP, n/v, diarrhea or dysuria. His pain had been fairly well controlled at home. A CXR revealed B/L basilar infiltrates. It appears as though these are chronic although a right sided infiltrate may be worsening. The pt was placed on BiPAP at the time of admission. HOSPITAL COURSE: It was ultimately discovered that the cause of the patient's acute/chronic hypercarbic/hypoxic respiratory failure was due primarily to influenza type A infection. The flu led to COPD exacerbation requiring use of high-dose IV steroids. He completed a 5-day course of tamiflu for his influenza while here. There was some concern that perhaps he had concomitant pneumonia however this was felt to be unlikely. As his hospitalization ensued he continued to use BIPAP at night-time, during daytime naps, and at other various times when he felt dyspneic. He otherwise was requiring 4-5 L of NC O2. At discharge he will complete a slow prednisone taper. After the taper is complete he will remain on 10mg of prednisone indefinitely. In light of his progressive stage 4 lung cancer, numerous hospitalizations, severe deconditioning, and tenuous pulmonary status multiple discussions were held this admission regarding transitioning to hospice. Palliative care was formally consulted. The patient elected to make himself a level 5 DNR however he did not wish to pursue hospice at this time. His ultimate goal was to go to [facility] for rehab with the hopes of regaining enough strength to return home. However, the medical team is highly concerned that this will likely not be possible as he has severe dyspnea and weakness with very little activity. This was conveyed to the patient and his significant other. The patient's stay was complicated by an episode of paroxysmal atrial fibrillation that led to worsening pulmonary status. Fortunately he converted back to NSR. He was seen in consult by cardiology who recommended systemic anticoagulation and rate control with calcium channel chandrika. The patient had been taking lovenox 40mg once daily for DVT prevention and the lovenox dose was simply increased to 1.5mg/kg/day for systemic anticoagulation. Other issues addressed while here included thrush, constipation, and hypomagnesemia. His pathological right clavicular fracture continues to be treated with sling immobilization. His fentanyl patch dose was increased to 112mcg q72h while hospitalized. He will remain on BIPAP at HS/naps and 4-5 L of NC O2 at all other times. O2 sats of 88-92% are satisfactory in light of his chronic respiratory failure. Total Time Spent: Greater than 30 minutes This includes examination of the patient, discharge planning, medication reconciliation, and communication with other providers. Discharge Instructions Please refer to the electronic Patient Visit Report (Discharge Instructions) for additional information. Follow-Up see medical malpractice paralegal of SNF within 2-3 days see [facility] within 1 week Additional Copies To [facility]; Ann Olivas M.D.; Brayan Delgado M.D.; eGnaro Bustos MD; Andrew Aguilera M.D.
--- NOTE | 2017-07-22 10:57 | EDITING REQUIRED CODING QUERY ---
CODING QUERY To promote full compliance with coding requirements relating to patient care, provider participation is requested in all cases of pari mutuel ticket cashier uncertainty. Please assist us with the question(s) below: Coding Question(s): There is questionable Pneumonia documented in the record and on Discharge Summary. Please clarify below, in your clinical opinion, regarding the likely type of questionable pneumonia. ( ) Likely Gram Negative Pneumonia ( ) Likely Pneumonia, Unspecified or HCAP ( ) Likely other type of Pneumonia - Specify Pneumonia was ruled out - unlikely he had pneumonia. ThanksLeslie Physician's Response(s): Thank you Jackie Farrell Principal Diagnosis: "_that condition established after study, to be chiefly responsible for occasioning the admission of the patient to the hospital for care." Co-Existing Principal Diagnosis: "_when two or more diagnoses equally meet the criteria for principal diagnosis as determined by the circumstances of admission, diagnostic work up, and/or therapy provided, and the Alphabetic Index, Tabular List, or another coding guideline does not provide sequencing direction, any one of the diagnoses may be sequenced first." "When the physician has documented what appears to be a current diagnosis in the body of the record, but has not included the diagnosis in the final diagnostic statement, the physician should be asked whether the diagnosis should be added." (Source Coding [facility] 2 QTR90. p3-4)
== END 2017-07-18 17:49 | DRG 193 ==
LOC: EDBD 01:23 → C.EDA 01:24 → C.2T 04:40 → ENRESERV 04:50 → EDBEDREQ 11:39 → CANBEDREQ 15:13 → ENRESERV 07-08 14:42 → C.4E 07-08 16:52
PROVIDERS: ADMIT Internal Medicine; ATTEND Internal Medicine
DX: J10.1 Influenza due to other identified influenza virus with other respiratory manifestations (principal); J96.21 Acute and chronic respiratory failure with hypoxia; J96.22 Acute and chronic respiratory failure with hypercapnia; D61.818 Other pancytopenia; C34.90 Malignant neoplasm of unspecified part of unspecified bronchus or lung; C79.51 Secondary malignant neoplasm of bone; M84.411A Pathological fracture, right shoulder, initial encounter for fracture; I47.2 Ventricular tachycardia; B37.0 Candidal stomatitis; J44.1 Chronic obstructive pulmonary disease with (acute) exacerbation; I48.0 Paroxysmal atrial fibrillation; R73.9 Hyperglycemia, unspecified; T38.0X5A Adverse effect of glucocorticoids and synthetic analogues, initial encounter; E83.42 Hypomagnesemia; G89.3 Neoplasm related pain (acute) (chronic); K59.00 Constipation, unspecified; E53.8 Deficiency of other specified B group vitamins; I25.10 Atherosclerotic heart disease of native coronary artery without angina pectoris; N40.0 Benign prostatic hyperplasia without lower urinary tract symptoms; Z51.81 Encounter for therapeutic drug level monitoring; Z79.899 Other long term (current) drug therapy; Z79.01 Long term (current) use of anticoagulants; Z79.891 Long term (current) use of opiate analgesic; Z79.52 Long term (current) use of systemic steroids; Z99.81 Dependence on supplemental oxygen; Z66 Do not resuscitate; Z86.711 Personal history of pulmonary embolism; Z86.718 Personal history of other venous thrombosis and embolism; Z87.891 Personal history of nicotine dependence

== ENCOUNTER 2017-07-22 09:21 | Inpatient (IN) | payer OTHER ==
[~2017-07-22] VITALS: Ht 170.2 cm; Wt 81.5 kg
[2017-07-22] VITALS (12 sets, daily range): BP systolic 118–124; BP diastolic 63–65; PULSE 84–127; TEMP 36.4; O2SAT 88–97; Ht 170.2 cm; Wt 81.5 kg
[~2017-07-22 09:21] MED LIST changes: +ALBINS INH; -ALBUAER INH; +ALPR0.25 PO; +BENZ-54 PO; +DILT120C68 PO; -DRGTP100 TD; +DRGTP12 TD; +EFFSR150 PO; +ENOX120I SQ; -ENOX40IN SQ; -ERGO500011 PO; -FLM4 PO; +FNTTP100 TD; +GABA600T PO; -GFNSR600 PO; +GUAI1TAB55 PO; -IPRA1AER2 INH; -LDDP5 TD; +MGNO400 PO; +MRLP17 PO; -NRN600 PO; +NYSS5 PO; +ONDA8TAB62 SL; +PANT40TA PO; -PRD10 PO; +PRED10TA PO; -RXC5 PO; +RXNS10 PO; +SENN-61 PO; +TAMS0.4C38 PO; -VENL150T33 PO; -VTMD1000 PO
[2017-07-22] MEDS ORDERED: METHYLPREDNISOLONE 125 MG VIAL IV STA (09:42)
[2017-07-22] MEDS ORDERED: LEVALBUTEROL 1.25MG/0.5ML NEB INH ONE (09:45)
[2017-07-22] MEDS ORDERED: IPRATROPIUM BROMIDE NEB SOLN 0.02% 2.5 ML VIAL INH ONE (09:45)
[2017-07-22] MEDS ORDERED: ALBUT/IPRATROP 3MG/0.5MG NEB 3 ML VIAL ONE ×2 (09:58→10:02)
[2017-07-22 10:00] LABS: BLOOD UREA NITROGEN 29 mg/dl (7-18); CALCIUM 9.8 mg/dl (8.5-10.1); CREATININE 0.37 mg/dl (0.60-1.40); GLUCOSE 99 mg/dl (70-99); POTASSIUM 4.2 mmol/L (3.5-5.1); SODIUM 140 mmol/L (136-145)
--- NOTE | 2017-07-22 10:01 | DIAGNOSTIC IMAGING REPORT ---
CHEST ONE VIEW PORTABLE HISTORY: 67 years-old Male CHEST PAIN acute atypical chest pain. History of lung carcinoma. COMPARISON: Chest radiograph 07/07/2017, CT chest 05/22/2017 TECHNIQUE: Portable AP view of the chest FINDINGS: Cardiac silhouette is again enlarged. Atherosclerosis of the aorta. Left subclavian [id number] catheter appears unchanged. There is mild pulmonary vascular congestion. Small bilateral pleural effusions with right greater than left bibasilar consolidative opacities. Additionally, there is a focal 4.2 cm consolidative type opacity of the lateral right midlung. Multiple bilateral pulmonary nodules redemonstrated. Background emphysema. 6 mm calcification superior to the right humeral head suggests calcific tendinosis. Lytic lesion of the distal right clavicle redemonstrated with pathologic fracture. IMPRESSION: 1. Cardiomegaly with mild pulmonary vascular congestion and small bilateral pleural effusions. 2. Bibasilar consolidation, right greater than left appears unchanged. 3. Redemonstration of multiple bilateral pulmonary nodules with a 4.2 cm opacity of the lateral right midlung suggesting progressive metastasis or focal pneumonia. 4. Lytic metastasis with pathologic fracture of the distal right clavicle. The above report was generated using voice recognition software. It may contain grammatical, syntax or spelling errors. Electronically signed by: Jesus Tomlinson M.D. 07/22/2017 10:00 AM Dictated Date/Time: 07/22/2017 9:55 AM
[2017-07-22 10:16] LABS: CARBON DIOXIDE 52 mmol/L (21-32)
[2017-07-22 10:22] LABS: HEMATOCRIT 34.8 % (42-52); HEMOGLOBIN 9.9 g/dL (14.0-18.0); IG# 0.07 K/uL (0.00-0.02); LYMPH % 4.8 %; LYMPH ABS # 0.55 K/uL (1.2-3.4); MEAN CELL VOLUME 112.3 fL (80-100); MEAN CORPUSCULAR HEMOGLOBIN 31.9 pg (25-34); MEAN CORPUSCULAR HGB CONC 28.4 g/dl (32-36); MEAN PLATELET VOLUME 9.2 fL (7.4-10.4); MONO % 5.3 %; MONO ABS # 0.61 K/uL (0.11-0.59); NEUT % 89.3 %; PLATELET COUNT 113 K/uL (130-400); RED CELL DISTRIBUTION WIDTH CV 15.5 % (11.5-14.5); RED CELL DISTRIBUTION WIDTH SD 63.3 fL (36.4-46.3); WHITE BLOOD COUNT 11.43 K/uL (4.8-10.8)
[2017-07-22] MEDS ORDERED: DEXT30TA7 PO (10:32)
[2017-07-22] MEDS ORDERED: DLC5 (10:32)
--- NOTE | 2017-07-22 10:48 | EMERGENCY ROOM VISIT NOTE ---
History Report prepared by Deo: Priyank Comer Under the Supervision of: Dr. Magan Felix M.D. First contact with patient: 09:32 Chief Complaint: RESPIRATORY DISTRESS Stated Complaint: AMS History of Present Illness The patient is a 67 year old male who presents to the Emergency Room with complaints of waxing and waning altered mental status beginning yesterday. He is a resident at [facility]. The patient has a history of lung cancer with metastases. He is listed as DNR. He was discharged from the hospital two days ago on palliative care. Per nursing staff, the patient's brother reports that the patient has had waxing and waning mental status recently. He reports the patient is occasionally coherent, but is often nearly unresponsive. Nursing staff notes that the patient's oxygen saturations on room air have been low. Per family, the patient's oxygen saturations have been running in the 70's recently. HPI limited secondary to altered mental status. Source of History: family, nursing staff History Limited By: AMS Onset: Yesterday Quality: other (Altered mental status) Timing: waxes/wanes Review of Systems ROS unobtainable secondary to altered mental status. Past Medical & Surgical Medical Problems: (1) Adenocarcinoma of lung (2) Adenocarcinoma of unknown primary (3) COPD (chronic obstructive pulmonary disease) (4) COPD exacerbation (5) Coronary artery disease (6) HCAP (healthcare-associated pneumonia) (7) Hematuria (8) History of metastatic neoplastic disease (9) Hypoxia (10) Metastatic cancer (11) Metastatic carcinoma to bone (12) Metastatic lung cancer (metastasis from lung to other site) (13) Pancytopenia (14) Pneumonia (15) Pulmonary embolism, bilateral (16) Sepsis (17) Shortness of breath Surgical Problems: (1) History of total replacement of right hip Old medical records were reviewed. Nurse's notes were reviewed and I agree with. Family History CABG Cancer Social History Smoking Status: Former Smoker Drug Use: none Marital Status: Occupation Status: retired Current/Historical Medications Scheduled Budesonide/Formoterol Fumarate (Symbicort 160/4.5 Inhaler ), 2 PUFFS INH BID Diltiazem Hcl Ext Rel (Tiazac), 120 MG PO DAILY Enoxaparin (Lovenox), 120 MG SQ QAM Fentanyl (Fentanyl), 100 MCG TD Q72 HOURS. Fentanyl (Fentanyl), 12 MCG TD Q72H Finasteride (Finasteride), 5 MG PO QAM Folic Acid (Folic Acid), 1 MG PO QPM Gabapentin (Neurontin), 600 MG PO TID Guaifenesin Ext Rel (Mucinex Ext Rel), 1,200 MG PO Q12 Home O2 Therapy (Oxygen), 4 LITERS NA CONTINOUS Ipratropium-Albuterol (Duoneb), 1 TREATMENT INH Q4H Magnesium Oxide (Magnesium-Oxide), 400 MG PO BID Nystatin (Nystatin), 5 ML PO ACHS Pantoprazole (Protonix), 40 MG PO DAILY Polyethylene (Miralax), 17 GM PO DAILY Prednisone Tab (Prednisone), 10 MG PO DIRECTED Senna (Senokot), 17.2 MG PO QAM Tamsulosin Hcl (Flomax), 0.4 MG PO HS Venlafaxine Hcl (Effexor Extended Rel), 150 MG PO QPM Scheduled PRN Albuterol Sulf (Albuterol Sulfate), 2.5 MG INH Q2H PRN for Shortness of Breath Alprazolam (Xanax), 1 TAB PO Q8H PRN for anxiety Benzonatate (Tessalon Perles), 100 MG PO Q8H PRN for Cough Dextromethorphan-Guaifenesin (Mucinex Dm), 1 TAB PO Q12 PRN for Cough Morphine Sulfate (Morphine Sulfate), 10 MG PO Q2H PRN for pain or breathlessness Ondansetron Odt (Zofran Odt), 8 MG SL Q6H PRN for Nausea Miscellaneous Medications Bisacodyl (Bisacodyl EC) Allergies Coded Allergies: No Known Allergies (Verified , 07/07/17) Physical Exam Vital Signs Date Time Temp Pulse Resp B/P (MAP) Pulse Ox O2 Delivery O2 Flow Rate FiO2 07/22/17 11:37 100 18 127/61 96 BiPAP 07/22/17 11:00 90 92 70 07/22/17 10:58 95 BiPAP 10.0 07/22/17 10:34 94 16 136/65 95 BiPAP 07/22/17 10:07 92 16 121/72 92 BiPAP 07/22/17 09:58 97 14 92 BiPAP/CPAP 70 07/22/17 09:58 97 94 07/22/17 09:50 92 Nasal Cannula 10.0 07/22/17 09:42 91 07/22/17 09:34 36.7 92 24 127/74 93 Oxymask 15.0 07/22/17 09:33 93 Oxymask 15.0 07/22/17 09:31 65 Nasal Cannula 5.0 Physical Exam General: Chronically-ill appearing older male. Altered mental status. Unresponsive. HEENT: Normal cephalic atraumatic. Pupils are equal round and reactive to light. Extraocular movements are intact. Oropharynx is pink with moist mucous membranes. No swelling of the mouth lips or tongue. Neck: Supple with a midline trachea. No meningeal signs or stiffness, no JVD or bruits. No Stridor. Chest: Rhonchi bilaterally. Heart: regular rate and rhythm. Abdomen: Soft nontender, nondistended without rebound guarding or rigidity. Extremities: No cyanosis clubbing or edema. No calf tenderness or assymetry Spine/Back. Non tender to palpation. No CVA tenderness Skin: Good turgor without rashes. Neurologic exam: Altered mental status. Non-responsive. Medical Decision & Procedures ER Provider Diagnostic Interpretation: Radiology results as stated below per my review and radiologist interpretation: CHEST ONE VIEW PORTABLE FINDINGS: Cardiac silhouette is again enlarged. Atherosclerosis of the aorta. Left subclavian Jtyfqz-y-[id number] catheter appears unchanged. There is mild pulmonary vascular congestion. Small bilateral pleural effusions with right greater than left bibasilar consolidative opacities. Additionally, there is a focal 4.2 cm consolidative type opacity of the lateral right midlung. Multiple bilateral pulmonary nodules redemonstrated. Background emphysema. 6 mm calcification superior to the right humeral head suggests calcific tendinosis. Lytic lesion of the distal right clavicle redemonstrated with pathologic fracture. IMPRESSION: 1. Cardiomegaly with mild pulmonary vascular congestion and small bilateral pleural effusions. 2. Bibasilar consolidation, right greater than left appears unchanged. 3. Redemonstration of multiple bilateral pulmonary nodules with a 4.2 cm opacity of the lateral right midlung suggesting progressive metastasis or focal pneumonia. 4. Lytic metastasis with pathologic fracture of the distal right clavicle. The above report was generated using voice recognition software. It may contain grammatical, syntax or spelling errors. Electronically signed by: Jesus Tomlinson M.D. 07/22/2017 10:00 AM Laboratory Results 07/22/17 09:32 Red Blood Count 3.10, Mean Corpuscular Volume 112.3, Mean Corpuscular Hemoglobin 31.9, Mean Corpuscular Hemoglobin Concent 28.4, Mean Platelet Volume 9.2, Neutrophils (%) (Auto) 89.3, Lymphocytes (%) (Auto) 4.8, Monocytes (%) ( Auto) 5.3, Eosinophils (%) (Auto) 0.0, Basophils (%) (Auto) 0.0, Neutrophils # ( Auto) 10.20, Lymphocytes # (Auto) 0.55, Monocytes # (Auto) 0.61, Eosinophils # ( Auto) 0.00, Basophils # (Auto) 0.00 07/22/17 09:32 Test 07/22/17 09:32 07/22/17 09:41 White Blood Count 11.43 K/uL (4.8-10.8) Red Blood Count 3.10 M/uL (4.7-6.1) Hemoglobin 9.9 g/dL (14.0-18.0) Hematocrit 34.8 % (42-52) Mean Corpuscular Volume 112.3 fL (80-100) Mean Corpuscular Hemoglobin 31.9 pg (25-34) Mean Corpuscular Hemoglobin Concent 28.4 g/dl (32-36) Platelet Count 113 K/uL (130-400) Mean Platelet Volume 9.2 fL (7.4-10.4) Neutrophils (%) (Auto) 89.3 % Lymphocytes (%) (Auto) 4.8 % Monocytes (%) (Auto) 5.3 % Eosinophils (%) (Auto) 0.0 % Basophils (%) (Auto) 0.0 % Neutrophils # (Auto) 10.20 K/uL (1.4-6.5) Lymphocytes # (Auto) 0.55 K/uL (1.2-3.4) Monocytes # (Auto) 0.61 K/uL (0.11-0.59) Eosinophils # (Auto) 0.00 K/uL (0-0.5) Basophils # (Auto) 0.00 K/uL (0-0.2) RDW Standard Deviation 63.3 fL (36.4-46.3) RDW Coefficient of Variation 15.5 % (11.5-14.5) Immature Granulocyte % (Auto) 0.6 % Immature Granulocyte # (Auto) 0.07 K/uL (0.00-0.02) Basophilic Stippling 1+ Stomatocytes 1+ Anion Gap -2.0 mmol/L (3-11) Estimated GFR () 147.1 Estimated GFR (Non- 126.9 BUN/Creatinine Ratio 77.7 (10-20) Calcium Level 9.8 mg/dl (8.5-10.1) Bedside Troponin I < 0.030 ng/ml (0-0.045) Laboratory studies as stated above per my review. Medications Administered Medications (Trade) Dose Ordered Sig/Abbi Route Start Time Stop Time Status Last Admin Dose Admin Methylprednisolone Sodium Succinate (Solu-Medrol IV) 125 mg NOW STAT IV 07/22/17 09:42 07/22/17 09:45 DC 07/22/17 09:59 125 MG Albuterol/ Ipratropium (Duoneb) 3 ml STK-MED ONCE .ROUTE 07/22/17 09:58 07/22/17 09:59 DC 07/22/17 10:02 3 ML Albuterol/ Ipratropium (Duoneb) 9 ml STK-MED ONCE .ROUTE 07/22/17 10:02 07/22/17 10:03 DC 07/22/17 10:03 9 ML ECG Per My Interpretation Indication: altered mental status Rate (beats per minute): 100 Rhythm: normal sinus Findings: PVC (frequent), other (No ST elevation. Non-specific T-wave abnormality.) Comparison ECG Date: July 14, 2017 Change: no significant change (Rate has increased) ED Course 0933: Past medical records reviewed. The patient was evaluated in room A2, and a complete history and physical examination were performed. 0942: Ordered Solu-Medrol 125 mg IV. 0945: Ordered Atrovent 0.02% 0.5 mg/2.5 mL 2 mg INH, Xopenex 1.25 mg/0.5 mL Neb 5 mg INH. 1005: I discussed the patient's case with his family. They are all on board with the plan. 1032: Upon reevaluation, the patient is still altered. I discussed the results and treatment plan with the patient. He verbalized agreement of the treatment plan. The patient will be evaluated for further management. 1050: I checked in on the patient. He is still obtunded. Respiratory is coming to see the patient. Medical Decision Differentials include, but are not limited to; respiratory failure, hypoxemia, pneumonia, sepsis, and COPD exacerbation. This patient comes in as described above. He was just in the hospital a couple days ago and went back to [facility]. Over the last 24 hours or so he has become very somnolent. On exam he is unarousable. He apparently he was hypoxemic in the 60s without oxygen. He was placed on oxygen on the way up. I reviewed his records and I am concerned about him retaining CO2 and I started him on BiPAP and ordered a VBG. He also order albuterol and Atrovent nebs over 1 hour and Solu-Medrol 125 mg IV. He has a history of severe COPD as well as lung cancer that is metastatic apparently. He was made a DNR the last time he was in here and he comes with a pulse supporting this. The family members also agree that he would not want to be intubated. Additionally, there there was talk about putting him on hospice even the last time he was in but that has not occurred yet. Chest x-ray shows some chronic changes and he may have some infiltrates or fluid even. EKG does not suggest acute coronary syndrome. His electrolytes came back with a high CO2 and on his VBG his PCO2 is 124. He is on BiPAP to help treat this. I talked to the family at length and given his comorbidities his prognosis is very poor and I told him that he may not survive this. They aacknowledge this and agree with the plan. I have consulted the [facility] hospitalist. Medication Reconcilliation Current Medication List: was personally reviewed by me Blood Pressure Screening Patient's blood pressure: Normal blood pressure Blood pressure disposition: Did not require urgent referral Consults Time Called: 1025 Consulting Physician: Dr. Jason HILL Hospitalist Returned Call: [phone] Discussed the patient's case. The patient will be evaluated for further management. Impression Primary Impression: Altered mental status Additional Impressions: Respiratory failure Hypoxemia Hypercapnia Critical Care I have personally spent greater than 30 minutes of critical care time in the direct management of this patient. This includes bedside care, interpretation of diagnostic studies, and testing, discussion with consultants, patient, and family members, and other required patient management activities. This 30 minutes is in excess of all separately billable procedures. Scribe Attestation The scribe's documentation has been prepared under my direction and personally reviewed by me in its entirety. I confirm that the note above accurately reflects all work, treatment, procedures, and medical decision making performed by me. Departure Information Dispostion Being Evaluated By Hospitalist Referrals Ann Olivas M.D. (PCP) Patient Instructions Asthma - [facility], COPD - [facility], Croup - [facility], My [facility] Problem Qualifiers
[2017-07-22] MEDS ORDERED: ALBUTEROL 0.083% NEBU SOLN 3 ML VIAL INH PRN (11:45)
[2017-07-22] MEDS ORDERED: POLYETHYLENE (MIRALAX) 17 GM PACK PO PRN (11:45)
[2017-07-22] MEDS ORDERED: ONDANSETRON 8MG OD TAB SL PRN (11:45)
--- NOTE | 2017-07-22 12:30 | History and Physical ---
History & Physical Date & Time of Service: Jul 22, 2017 at 11:57 Chief Complaint: AMS Primary Care Physician: Ann Olivas M.D. History of Present Illness Source: family Mr. Hagan is a 67yo C male with history of end stage non-small cell lung cancer with metastases to the liver and bone, severe COPD presenting with acute on chronic hypercarbic respiratory failure. The patient was recently admitted to [facility] 5March- 16March for influenza A infection and PNA for which he completed a course of Tamiflu and a steroid taper. He was discharged to [facility] in stable condition. The family reports that he did not receive his medications for at least 1 day at [facility] and was not placed on his CPAP machine and had frequent O2 saturations in the high 70's and low 80's. Family reports patient started acting sleepy and less responsive on 18March which progressively worsened. No additional complaints. Patient was transferred to the ER today for unresponsiveness. Family at bedside to include partner, brother, son and [id number]. During last hospital stay the patient was seen by Palliative care and agreed to make himself a level V DNR. He did not wish to be placed into hospice at that time. ER Course: patient placed on oxymask then BiPAP, DuoNebs x 2, Xopenex x 1, Atrovent x 1, Solumedrol 125mg IV x 1 Past Medical/Surgical History Medical Problems: (1) Acute respiratory failure with hypercapnia (2) Adenocarcinoma of lung (3) COPD (4) Paroxysmal Atrial fibrillation (5) Anemia (6) Bilateral pulmonary embolism Surgical Problems: (1) History of total replacement of right hip, left hip (2) Cardiac stent placement in distant past (3) Back surgery Family History CABG Cancer Social History Smoking Status: Former Smoker Smokeless Tobacco Use: No Alcohol Use: none Drug Use: none Marital Status: Housing status: lives with family Occupational Status: retired Immunizations History of Influenza Vaccine: No History of Tetanus Vaccine?: No History of Pneumococcal: No History of Hepatitis B Vaccine: No Allergies Coded Allergies: No Known Allergies (Verified , 07/07/17) Home Medications Scheduled Budesonide/Formoterol Fumarate (Symbicort 160/4.5 Inhaler ), 2 PUFFS INH BID Diltiazem Hcl Ext Rel (Tiazac), 120 MG PO DAILY Enoxaparin (Lovenox), 120 MG SQ QAM Fentanyl (Fentanyl), 100 MCG TD Q72 HOURS. Fentanyl (Fentanyl), 12 MCG TD Q72H Finasteride (Finasteride), 5 MG PO QAM Folic Acid (Folic Acid), 1 MG PO QPM Gabapentin (Neurontin), 600 MG PO TID Guaifenesin Ext Rel (Mucinex Ext Rel), 1,200 MG PO Q12 Home O2 Therapy (Oxygen), 4 LITERS NA CONTINOUS Ipratropium-Albuterol (Duoneb), 1 TREATMENT INH Q4H Magnesium Oxide (Magnesium-Oxide), 400 MG PO BID Nystatin (Nystatin), 5 ML PO ACHS Pantoprazole (Protonix), 40 MG PO DAILY Polyethylene (Miralax), 17 GM PO DAILY Prednisone Tab (Prednisone), 10 MG PO DIRECTED Senna (Senokot), 17.2 MG PO QAM Tamsulosin Hcl (Flomax), 0.4 MG PO HS Venlafaxine Hcl (Effexor Extended Rel), 150 MG PO QPM Scheduled PRN Albuterol Sulf (Albuterol Sulfate), 2.5 MG INH Q2H PRN for Shortness of Breath Alprazolam (Xanax), 1 TAB PO Q8H PRN for anxiety Benzonatate (Tessalon Perles), 100 MG PO Q8H PRN for Cough Dextromethorphan-Guaifenesin (Mucinex Dm), 1 TAB PO Q12 PRN for Cough Morphine Sulfate (Morphine Sulfate), 10 MG PO Q2H PRN for pain or breathlessness Ondansetron Odt (Zofran Odt), 8 MG SL Q6H PRN for Nausea Miscellaneous Medications Bisacodyl (Bisacodyl EC) Review of Systems Unable to obtain due to unresponsiveness. No additional complaints endorsed by family Physical Exam Vital Signs Date Time Temp Pulse Resp B/P (MAP) Pulse Ox O2 Delivery O2 Flow Rate FiO2 07/22/17 11:37 100 18 127/61 96 BiPAP 07/22/17 11:00 90 92 70 07/22/17 10:58 95 BiPAP 10.0 07/22/17 10:34 94 16 136/65 95 BiPAP 07/22/17 10:07 92 16 121/72 92 BiPAP 07/22/17 09:58 97 14 92 BiPAP/CPAP 70 07/22/17 09:58 97 94 07/22/17 09:50 92 Nasal Cannula 10.0 07/22/17 09:42 91 07/22/17 09:34 36.7 92 24 127/74 93 Oxymask 15.0 07/22/17 09:33 93 Oxymask 15.0 07/22/17 09:31 65 Nasal Cannula 5.0 General: chronically ill appearing C male, resting in bed, BiPAP mask in place. Opens eyes to voice, able to follow simple commands, no verbal response Skin: warm, dry, intact, no rashes or lesions HEENT: NC/AT, PERRL, anicteric, conjunctiva without injection, patent nares, BiPAP in place, slightly dry oral mucosa, neck supple Heart: +S1/S2, regular with ectopy, no m/r/g Lungs: equal air entry bilaterally, coarse breath sounds, no rhonchi or wheezing appreciated anteriorly Abdomen: soft, NT/ND, diminished bowel sounds Extremities: warm, well perfused, palpable pulses, no clubbing/cyanosis or edema, right arm in sling from shoulder injury Neuro: patient moving 4 extremities to command with equal strength, opens eyes to voice Diagnostics Laboratory Results Results Past 24 Hours Test 07/22/17 09:32 07/22/17 09:41 07/22/17 10:22 Range/Units White Blood Count 11.43 4.8-10.8 K/uL Red Blood Count 3.10 4.7-6.1 M/uL Hemoglobin 9.9 14.0-18.0 g/dL Hematocrit 34.8 42-52 % Mean Corpuscular Volume 112.3 80-100 fL Mean Corpuscular Hemoglobin 31.9 25-34 pg Mean Corpuscular Hemoglobin Concent 28.4 32-36 g/dl Platelet Count 113 130-400 K/uL Mean Platelet Volume 9.2 7.4-10.4 fL Neutrophils (%) (Auto) 89.3 % Lymphocytes (%) (Auto) 4.8 % Monocytes (%) (Auto) 5.3 % Eosinophils (%) (Auto) 0.0 % Basophils (%) (Auto) 0.0 % Neutrophils # (Auto) 10.20 1.4-6.5 K/uL Lymphocytes # (Auto) 0.55 1.2-3.4 K/uL Monocytes # (Auto) 0.61 0.11-0.59 K/uL Eosinophils # (Auto) 0.00 0-0.5 K/uL Basophils # (Auto) 0.00 0-0.2 K/uL RDW Standard Deviation 63.3 36.4-46.3 fL RDW Coefficient of Variation 15.5 11.5-14.5 % Immature Granulocyte % (Auto) 0.6 % Immature Granulocyte # (Auto) 0.07 0.00-0.02 K/uL Basophilic Stippling 1+ Stomatocytes 1+ Sodium Level 140 136-145 mmol/L Potassium Level 4.2 3.5-5.1 mmol/L Chloride Level 90 98-107 mmol/L Carbon Dioxide Level 52 21-32 mmol/L Anion Gap -2.0 3-11 mmol/L Blood Urea Nitrogen 29 7-18 mg/dl Creatinine 0.37 0.60-1.40 mg/dl Estimated GFR () 147.1 Estimated GFR (Non- 126.9 BUN/Creatinine Ratio 77.7 10-20 Random Glucose 99 70-99 mg/dl Calcium Level 9.8 8.5-10.1 mg/dl Bedside Troponin I < 0.030 0-0.045 ng/ml Venous Blood pH 7.24 7.36-7.41 Venous Blood Partial Pressure CO2 124 38.0-50.0 mmHg Venous Blood Partial Pressure O2 61 mmHg Venous Blood HCO3 52 mmol/L Venous Blood Oxygen Saturation 86.9 % Venous Blood Base Excess 20.0 mEq/L Microbiology Results 07/22/17 Blood Culture, Received Pending 07/22/17 Blood Culture, Received Pending Diagnostic Radiology CXR FINDINGS: Cardiac silhouette is again enlarged. Atherosclerosis of the aorta. Left subclavian [id number]-[id number]-[id number] catheter appears unchanged. There is mild pulmonary vascular congestion. Small bilateral pleural effusions with right greater than left bibasilar consolidative opacities. Additionally, there is a focal 4.2 cm consolidative type opacity of the lateral right midlung. Multiple bilateral pulmonary nodules redemonstrated. Background emphysema. 6 mm calcification superior to the right humeral head suggests calcific tendinosis. Lytic lesion of the distal right clavicle redemonstrated with pathologic fracture. IMPRESSION: 1. Cardiomegaly with mild pulmonary vascular congestion and small bilateral pleural effusions. 2. Bibasilar consolidation, right greater than left appears unchanged. 3. Redemonstration of multiple bilateral pulmonary nodules with a 4.2 cm opacity of the lateral right midlung suggesting progressive metastasis or focal EKG The study demonstrates sinus tachycardia with frequent PACs. No acute ischemic changes Impression Assessment and Plan 67yo C male with metastatic non-small cell carcinoma of the lung, severe oxygen dependent COPD presenting with acute on chronic hypercarbic respiratory failure requiring rescue BiPAP. 1. Hypercarbic respiratory failure - acute on chronic. VBG 7.24/124/61/52. Patient presently on BiPAP with slowly improving mental status. Baseline O2 requirement is 4-5L via NC at rest, and BiPAP at night and with naps. Condition most likely represents normal disease progression, patient with multiple hospitalizations over the past few months. No evidence of infection at present. -Will repeat VBG at 14:00, liberate BiPAP pending results and clinical exam -Target SaO2 of 88-92% -Palliative care consult -Will continue pain management with Fentanyl patches 112mcg q 72 hours and Morphine 10mg po q 2 hours PRN -Continue Zofran ODT PRN -Bowel regimen Miralax and Colace 2. COPD - patient was given neb treatments and steroids in ER, no active wheezing on exam. -Continue DuoNebs q 4 hours scheduled -Albuterol q2 hours PRN -Continue home Symbicort -Continue home Budesonide -Continue prednisone 10mg po daily 3. PAF - patient presently in sinus rhythm with frequent PACs. He was on Diltiazem and Lovenox anticoagulation as outpatient -Continue Lovenox 120mg daily -Will hold Diltiazem for now, resume if patient is able to tolerate NC 4. Anemia - macrocytic, history of folate deficiency. stable. No active bleeding -Continue to monitor 5. History of PEs - remote, stable. -Continue Lovenox as above 6. BPH - stable. Holding finasteride for now 7. F/E/N - will place on gentle IVF while patient is NPO. No electrolyte derangements noted. NPO for now as BiPAP is in place. When liberated will obtain nursing swallow eval and advance diet as tolerated 8. PPx - Lovenox at home dose 9. Code - DNR-LT 10. Dispo - Admit to medical floor for hypercarbic RF. Anticipate return to NH on discharge with or without hospice Advanced Directives Existing Advance Directive: Yes Existing Living Will: No Existing Power of Senior Firmware Engineer: Yes Resuscitation Status DNR Level 5 VTE Prophylaxis Will order VTE Prophylaxis: Yes
[2017-07-22] MEDS ORDERED: D5W AND 1/2NSS 1,000 ML IV SCH (14:57)
[2017-07-22] MEDS: ALBUT/IPRATROP 3MG/0.5MG NEB 3 ML VIAL INH SCH ×2 (15:19→19:09)
[2017-07-22] MEDS: CHECK FENTANYL PATCH PLACEMENT SCH ×2 (15:59)
[2017-07-22] MEDS: DOCUSATE SODIUM 100 MG/10 ML UDC PO SCH (20:00)
[2017-07-22] MEDS: BUDESONIDE/FORMOTEROL FUMARATE 160/4.5 60 PUFFS/INHALER INH SCH (20:38)
[2017-07-23] VITALS (13 sets, daily range): BP systolic 92–152; BP diastolic 54–76; PULSE 55–120; TEMP 36.4–36.5; O2SAT 87–96
[2017-07-23] MEDS: CHECK FENTANYL PATCH PLACEMENT SCH ×6 (00:04→16:00)
[2017-07-23] MEDS: ALBUT/IPRATROP 3MG/0.5MG NEB 3 ML VIAL INH SCH ×5 (06:59→23:05)
[2017-07-23] MEDS: DOCUSATE SODIUM 100 MG/10 ML UDC PO SCH ×2 (08:22→21:07)
[2017-07-23] MEDS: BUDESONIDE/FORMOTEROL FUMARATE 160/4.5 60 PUFFS/INHALER INH SCH ×2 (08:22→21:06)
[2017-07-23] MEDS: ENOXAPARIN 120 MG/0.8 ML SYR SQ SCH (08:22)
[2017-07-23] MEDS: FENTANYL 100 MCG/HR TDSY TD SCH (08:32)
[2017-07-23] MEDS: FENTANYL 12 MCG/HR TDSY TD SCH (08:32)
[2017-07-23] MEDS: FENTANYL PATCH REMOVE & WASTE SCH ×2 (08:35)
[2017-07-23 10:34] LABS: CREATININE 0.36 mg/dl (0.60-1.40); POTASSIUM 4.3 mmol/L (3.5-5.1)
[2017-07-23 10:42] LABS: HEMATOCRIT 30.1 % (42-52); MEAN CELL VOLUME 108.3 fL (80-100); MEAN CORPUSCULAR HEMOGLOBIN 32.4 pg (25-34); MEAN CORPUSCULAR HGB CONC 29.9 g/dl (32-36); MEAN PLATELET VOLUME 9.8 fL (7.4-10.4); PLATELET COUNT 127 K/uL (130-400); RED CELL DISTRIBUTION WIDTH CV 15.3 % (11.5-14.5); RED CELL DISTRIBUTION WIDTH SD 60.6 fL (36.4-46.3)
[2017-07-23 11:33] LABS: CALCIUM 10.2 mg/dl (8.5-10.1)
--- NOTE | 2017-07-23 16:44 | Palliative Care Consultation ---
Consultation Date of Consultation: Jul 23, 2017. Requesting Physician: Dr. Gomez Attending Physician: Dr. Pfeiffer Reason for Consultation: Goals of care History of Present Illness This 67 year old male patient with end stage COPD, stage IV non-small cell lung cancer, mets to bone and liver, and others listed below, presented to the hospital from [facility] last evening with unresponsiveness and respiratory failure. Patient is well known to palliative service as I have seen him on several admissions to the hospital. Today, I am seeing him in consult again with his significant other, Julita, at bedside in room 411. Patient looks dusky, lethargic, and chronically ill. He is oriented x4 but with some forgetfulness. He has pain 4/10 in right shoulder where he has a metastatic lesion. Since March 2017, patient has been in hospital six times with COPD exacerbations, influenza, and the cancer. Patient has been rapidly deteriorating over the last few months but has been resistant to hospice or comfort care. Patient just left hospital last week and went to [facility] for rehab with the intention of getting back to his home where he lives with his significant other/POA, Julita. Unfortunately, since arriving to [facility] just four days prior, patient and Julita state that he has received poor care which caused this episode of hypercapnia and respiratory failure. Julita said that they did not have the proper oxygen concentrator and that they were not equipped to take care of Kevin. Finally, on Friday morning when patient was nearly obtunded for almost 24 hours, she demanded that he be sent to the hospital. On arrival around midnight, VBG showed CO2 of 124. Bipap was applied and CO2 came down to 89 by 0545 this morning. Patient is now more alert but still looks quite ill. Patient requested today/tonight to try and feel better and to discuss goals of care tomorrow. Past Medical/Surgical History Medical History: Metastatic lung adenocarcinoma- mets to bone, liver, lung Advanced/severe COPD CAD Chronic respiratory failure on 3LNC at home PE Sepsis Social History Smoking Status: Former Smoker History of Alcohol Use: No Drug Use: none Marital Status: Housing Status: lives with family Occupation Status: retired Review of Systems Constitutional: + weakness ENT: No trouble swallowing Respiratory: + cough, + wheezing, + shortness of breath, No sputum Cardiac: No chest pain, No edema Abdomen: No pain, No nausea, No vomiting Male : + incontinence Psychiatric: No depression symptoms, No anxiety Allergies Coded Allergies: No Known Allergies (Verified , 07/07/17) Medications Current Inpatient Medications Medications (Trade) Dose Ordered Sig/Abbi Route Start Time Stop Time Status Last Admin Dose Admin Albuterol Sulfate (Ventolin 0.083% 2.5MG/3ML Neb) 2.5 mg Q2H PRN INH 07/22/17 11:45 08/21/17 11:44 Budesonide/ Formoterol Fumarate (Symbicort 160/ 4.5 Inh) 2 puffs BID INH 07/22/17 20:00 08/21/17 20:59 07/23/17 08:22 2 PUFFS Enoxaparin Sodium (Lovenox Inj) 120 mg QAM SQ 07/23/17 08:00 08/22/17 08:59 07/23/17 08:22 120 MG Fentanyl (Duragesic Patch) 12 mcg Q3D@0800 TD 07/23/17 08:00 08/06/17 07:59 07/23/17 08:32 12 MCG Fentanyl (Duragesic Patch) 100 mcg Q3D@0800 TD 07/23/17 08:00 08/06/17 07:59 07/23/17 08:32 100 MCG Albuterol/ Ipratropium (Duoneb) 3 ml Q4R INH 07/22/17 16:00 08/21/17 15:59 07/23/17 15:06 3 ML Morphine Sulfate (Roxanol Oral Soln) 10 mg Q2H PRN PO 07/22/17 15:15 08/05/17 15:14 Ondansetron HCl (Zofran Odt) 8 mg Q6H PRN SL 07/22/17 11:45 08/21/17 11:44 Polyethylene (Miralax Powder Packet) 17 gm DAILY PRN PO 07/22/17 11:45 08/21/17 11:44 Docusate Sodium (coLACE SYRUP) 100 mg BID PO 07/22/17 20:00 08/21/17 20:59 07/23/17 08:22 100 MG Dextrose/Sodium Chloride 1,000 ml @ 15 mls/hr Q24H IV 07/22/17 14:57 07/24/17 14:56 07/22/17 16:22 15 MLS/HR Prednisone (PredniSONE TAB) 10 mg DAILY PO 07/23/17 08:00 08/22/17 08:59 07/23/17 08:21 10 MG Miscellaneous (Fentanyl Patch Remove & Waste) 1 ea Q3D@0759 N/A 07/23/17 07:59 08/22/17 07:58 07/23/17 08:35 1 EA Miscellaneous Information (Check Fentanyl Patch Placement) 1 ea QS N/A 07/22/17 16:00 08/21/17 15:59 07/23/17 08:23 1 EA Miscellaneous (Fentanyl Patch Remove & Waste) 1 ea Q3D@0759 N/A 07/23/17 07:59 08/22/17 07:58 07/23/17 08:35 1 EA Miscellaneous Information (Check Fentanyl Patch Placement) 1 ea QS N/A 07/22/17 16:00 08/21/17 15:59 07/23/17 08:24 1 EA Physical Exam Date Time Temp Pulse Resp B/P (MAP) Pulse Ox O2 Delivery O2 Flow Rate FiO2 07/23/17 15:30 36.5 120 20 92/54 (67) 91 Nasal Cannula 07/23/17 15:08 111 18 96 Nasal Cannula 6.0 07/23/17 11:17 100 18 87 Nasal Cannula 6.0 60 07/23/17 08:30 93 BiPAP 10.0 07/23/17 08:02 36.5 109 18 112/61 (78) 93 BiPAP 07/23/17 07:02 109 18 93 BiPAP/CPAP 60 07/23/17 00:25 94 BiPAP 07/22/17 23:50 127 19 118/63 (81) 93 BiPAP 07/22/17 22:17 88 45 07/22/17 21:39 35 07/22/17 19:11 86 18 97 BiPAP/CPAP 60 07/22/17 19:09 88 18 97 BiPAP/CPAP 60 07/22/17 16:35 96 BiPAP 60 General Appearance: + pertinent finding (chronically ill appearing, deconditioned) ENT: hearing grossly normal Neck: supple, no JVD Respiratory: no respiratory distress, + decreased breath sounds, + rhonchi, + wheezing Cardiovascular: regular rate, rhythm, no edema, + normal peripheral pulses Abdomen: normal bowel sounds, non tender, soft 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: normal mood/affect, oriented x 3, + pertinent finding ( drowsy) Skin: + cyanosis (ears and nose), + pallor Laboratory Results Last 24 Hours Test 07/22/17 16:20 07/23/17 05:47 Urine Color DK YELLOW Urine Appearance CLEAR Urine pH 5.0 Urine Specific [place] 1.028 Urine Protein 1+ Urine Glucose (UA) NEG Urine Ketones 1+ Urine Occult Blood NEG Urine Nitrite NEG Urine Bilirubin NEG Urine Urobilinogen NEG Urine Leukocyte Esterase NEG Urine WBC (Auto) 1-5 /hpf Urine RBC (Auto) 0-4 /hpf Urine Hyaline Casts (Auto) 1-5 /lpf Urine Epithelial Cells (Auto) 10-20 /lpf Urine Bacteria (Auto) NEG Urine Pathogenic Casts /lpf Urine Mucus PRESENT White Blood Count 13.30 K/uL Red Blood Count 2.78 M/uL Hemoglobin 9.0 g/dL Hematocrit 30.1 % Mean Corpuscular Volume 108.3 fL Mean Corpuscular Hemoglobin 32.4 pg Mean Corpuscular Hemoglobin Concent 29.9 g/dl RDW Standard Deviation 60.6 fL RDW Coefficient of Variation 15.3 % Platelet Count 127 K/uL Mean Platelet Volume 9.8 fL Venous Blood pH 7.39 Venous Blood Partial Pressure CO2 89 mmHg Venous Blood Partial Pressure O2 34 mmHg Venous Blood HCO3 53 mmol/L Venous Blood Oxygen Saturation 63.8 % Venous Blood Base Excess 24.3 mEq/L Sodium Level 139 mmol/L Potassium Level 4.3 mmol/L Chloride Level 88 mmol/L Carbon Dioxide Level 53 mmol/L Anion Gap -3.0 mmol/L Blood Urea Nitrogen 35 mg/dl Creatinine 0.36 mg/dl Est Creatinine Clear Calc Drug Dose 186.2 ml/min Estimated GFR () 148.7 Estimated GFR (Non- 128.3 BUN/Creatinine Ratio 99.4 Random Glucose 114 mg/dl Calcium Level 10.2 mg/dl Assessment & Plan Palliative Performance Scale: 30 % Problem list: SOB/TSE Hypercapnic respiratory failure End stage COPD Metastatic non small cell lung carcinoma Goals of care Palliative care recs: -Patient is level 5, DNR. -Chemotherapy has previously been discontinued, patient has been receiving only supportive care. -Uncertain of patient's goal at this point. He has been resistant to comfort/ hospice care and even requested to me in the past to not talk about his end of life or to discuss his decline/deterioration. However, I believe patient is at the end of life. I know his wish was to get home with his long-time significant other, Julita. Perhaps if patient would be accepting of hospice care, he could make it home for his final days. I do not believe we have anything further offer Mr. Hagan other than supportive care as we have been. -Patient requested to have the day to try and get a little better, we can discuss goals of care tomorrow. -Continue his current pain medications, they work well for him. Thank you kindly for this consult. I will follow. Total time spent 50 minutes with >50% of time spent with patient and S/O discussing goals of care and plan of care.
[2017-07-23] MEDS ORDERED: ALPRAZOLAM 0.25 MG TAB PO PRN (16:45)
--- NOTE | 2017-07-23 16:54 | Hospitalist Progress Note ---
Hospitalist Progress Note Date of Service Jul 23, 2017. (Luna Leon ., TERRIE) Subjective Pt evaluation today including: conversation w/ patient, conversation w/ family , physical exam, chart review, lab review, review of inpatient medication list Voiding: no voiding problems Mr. Hagan is pale and sickly appearing. He is laboring to breathe on nasal cannula to eat. His pulse ox is 81% which rebounds to 85% when he rests. ROS Constitutional: no chills, aches, sweats or fever Respiratory: no cough, sputum, or wheezing Cardiac: no chest pain, palpitations, edema, orthopnea or lightheadedness GI: no abdominal pain, nausea, vomiting, diarrhea or constipation : no dysuria or hesitancy Extremities: no joint pain or weakness Skin: no rash All other systems reviewed and negative (Luna Leon ., TERRIE) Medications Medications Administered Medications (Trade) Dose Ordered Sig/Abbi Route Start Time Stop Time Status Last Admin Dose Admin Methylprednisolone Sodium Succinate (Solu-Medrol IV) 125 mg NOW STAT IV 07/22/17 09:42 07/22/17 09:45 DC 07/22/17 09:59 125 MG Albuterol/ Ipratropium (Duoneb) 3 ml STK-MED ONCE .ROUTE 07/22/17 09:58 07/22/17 09:59 DC 07/22/17 10:02 3 ML Albuterol/ Ipratropium (Duoneb) 9 ml STK-MED ONCE .ROUTE 07/22/17 10:02 07/22/17 10:03 DC 07/22/17 10:03 9 ML Budesonide/ Formoterol Fumarate (Symbicort 160/ 4.5 Inh) 2 puffs BID INH 07/22/17 20:00 08/21/17 20:59 07/23/17 08:22 2 PUFFS Enoxaparin Sodium (Lovenox Inj) 120 mg QAM SQ 07/23/17 08:00 08/22/17 08:59 07/23/17 08:22 120 MG Fentanyl (Duragesic Patch) 12 mcg Q3D@0800 TD 07/23/17 08:00 08/06/17 07:59 07/23/17 08:32 12 MCG Fentanyl (Duragesic Patch) 100 mcg Q3D@0800 TD 07/23/17 08:00 08/06/17 07:59 07/23/17 08:32 100 MCG Albuterol/ Ipratropium (Duoneb) 3 ml Q4R INH 07/22/17 16:00 08/21/17 15:59 07/23/17 15:06 3 ML Docusate Sodium (coLACE SYRUP) 100 mg BID PO 07/22/17 20:00 08/21/17 20:59 07/23/17 08:22 100 MG Dextrose/Sodium Chloride 1,000 ml @ 15 mls/hr Q24H IV 07/22/17 14:57 07/24/17 14:56 07/22/17 16:22 15 MLS/HR Prednisone (PredniSONE TAB) 10 mg DAILY PO 07/23/17 08:00 08/22/17 08:59 07/23/17 08:21 10 MG Miscellaneous (Fentanyl Patch Remove & Waste) 1 ea Q3D@0759 N/A 07/23/17 07:59 08/22/17 07:58 07/23/17 08:35 1 EA Miscellaneous Information (Check Fentanyl Patch Placement) 1 ea QS N/A 07/22/17 16:00 08/21/17 15:59 07/23/17 08:23 1 EA Miscellaneous (Fentanyl Patch Remove & Waste) 1 ea Q3D@0759 N/A 07/23/17 07:59 08/22/17 07:58 07/23/17 08:35 1 EA Miscellaneous Information (Check Fentanyl Patch Placement) 1 ea QS N/A 07/22/17 16:00 08/21/17 15:59 07/23/17 08:24 1 EA (Luna Leon, TERRIE) Objective Vital Signs Date Time Temp Pulse Resp B/P (MAP) Pulse Ox O2 Delivery O2 Flow Rate FiO2 07/23/17 15:30 36.5 120 20 92/54 (67) 91 Nasal Cannula 07/23/17 15:08 111 18 96 Nasal Cannula 6.0 07/23/17 11:17 100 18 87 Nasal Cannula 6.0 60 07/23/17 08:30 93 BiPAP 10.0 07/23/17 08:02 36.5 109 18 112/61 (78) 93 BiPAP 07/23/17 07:02 109 18 93 BiPAP/CPAP 60 07/23/17 00:25 94 BiPAP 07/22/17 23:50 127 19 118/63 (81) 93 BiPAP 07/22/17 22:17 88 45 07/22/17 21:39 35 07/22/17 19:11 86 18 97 BiPAP/CPAP 60 07/22/17 19:09 88 18 97 BiPAP/CPAP 60 (Luna Leon CRNP) Physical Exam Notes: General: no distress Eyes: normal inspection, PERLL Respiratory: chest non tender, coarse throughout to auscultation no respiratory distress, no accessory muscle use Cardiac: regular rate and rhythm, no rub or gallop, no murmur, no edema, no jvd GI/: active bowel sounds, no abd pain or tenderness, soft, non distended Extremities: normal range of motion, normal strength, non tender Neuro/Psych: alert and oriented x 3, normal mood and affect Skin: normal color, dry (Luna Leon CRNP) Laboratory Results Last 24 Hours Test 07/23/17 05:47 White Blood Count 13.30 K/uL Red Blood Count 2.78 M/uL Hemoglobin 9.0 g/dL Hematocrit 30.1 % Mean Corpuscular Volume 108.3 fL Mean Corpuscular Hemoglobin 32.4 pg Mean Corpuscular Hemoglobin Concent 29.9 g/dl RDW Standard Deviation 60.6 fL RDW Coefficient of Variation 15.3 % Platelet Count 127 K/uL Mean Platelet Volume 9.8 fL Venous Blood pH 7.39 Venous Blood Partial Pressure CO2 89 mmHg Venous Blood Partial Pressure O2 34 mmHg Venous Blood HCO3 53 mmol/L Venous Blood Oxygen Saturation 63.8 % Venous Blood Base Excess 24.3 mEq/L Sodium Level 139 mmol/L Potassium Level 4.3 mmol/L Chloride Level 88 mmol/L Carbon Dioxide Level 53 mmol/L Anion Gap -3.0 mmol/L Blood Urea Nitrogen 35 mg/dl Creatinine 0.36 mg/dl Est Creatinine Clear Calc Drug Dose 186.2 ml/min Estimated GFR () 148.7 Estimated GFR (Non- 128.3 BUN/Creatinine Ratio 99.4 Random Glucose 114 mg/dl Calcium Level 10.2 mg/dl (Luna Leon CRNP) Assessment and Plan 67yo C male with metastatic non-small cell carcinoma of the lung, severe oxygen dependent COPD presenting with acute on chronic hypercarbic respiratory failure requiring rescue BiPAP. Hypercarbic respiratory failure - acute on chronic. VBG 7.24/124/61/52. Patient presently on BiPAP with slowly improving mental status. Baseline O2 requirement is 4-5L via NC at rest, and BiPAP at night and with naps. Condition most likely represents normal disease progression, patient with multiple hospitalizations over the past few months. No evidence of infection at present. - repeat VBG was 7.39, continue bipap as patient can tolerate -Target SaO2 of 88-92% -Palliative care consult - in the past patient has been very resistant to discussions about end of life -Will continue pain management with Fentanyl patches 112mcg q 72 hours and Morphine 10mg po q 2 hours PRN -Continue Zofran ODT PRN -Bowel regimen Miralax and Colace - restart home po meds as taking po - solu medrol 125 mg loading dose then 60 mg q8h. COPD - patient was given neb treatments and steroids in ER, no active wheezing on exam. -Continue DuoNebs q 4 hours scheduled -Albuterol q2 hours PRN -Continue home Symbicort -Continue home Budesonide - discontinue prednisone and start iv solumedrol as above PAF - patient presently in sinus rhythm with frequent PACs. He was on Diltiazem and Lovenox anticoagulation as outpatient -Continue Lovenox 120mg daily -Will hold Diltiazem for now, resume if patient is able to tolerate NC Anemia - macrocytic, history of folate deficiency. stable. No active bleeding -Continue to monitor History of PEs - remote, stable. -Continue Lovenox as above BPH - stable. Restart finasteride for now F/E/N - stop IVF per POLST, restart diet. PPx - Lovenox at home dose Code - DNR-LT 10. Dispo - Admit to medical floor for hypercarbic RF. 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 Discussed with TERRIE Leon and agree with findings and plan as documented in the note. Any exceptions or clarifications are listed here: Patient does not feel short of breath despite sats in the 70s-80s and appearing cyanotic as I am speaking with him. Heart rates have been elevated today as he has not received his diltiazem. Blood pressures have been on the low side but he is asymptomatic. He says he was not happy at all with his care at the assisted. He would like a referral to [facility] instead. Vitals reviewed Appears cyanotic, NAD Irregularly irregular with tachycardia, no murmur audible Diffuse coarse breath sounds bilaterally, positive expiratory wheezes, decreased breath sounds at the bases Abdomen positive bowel sounds soft nontender nondistended Extremities chronic venous stasis changes, no edema Patient is a 67-year-old male with a history of stage IV metastatic lung adenocarcinoma, severe end-stage COPD, here with acute on chronic hypercarbic and hypoxic respiratory failure after not being on BiPAP for prolonged period of time. Much improved back to his baseline now. -Give p.o. diltiazem 30 mg 1 now if blood pressure at least 100 systolic- discussed with the nurse and then restart diltiazem 120 mg in the morning -Continue BiPAP nightly and as needed during the day, otherwise nasal cannula -Giving IV steroids which may also help his blood pressure with stress dose steroids as well as his COPD and then taper back down to p.o. prednisone -We will look into placement at a different assisted -Agree with palliative care assessment-he is nearing the end of life. I did not discuss this particularly with him today due to his request not to with palliative care earlier. Will address tomorrow. Documented By: Meagan Pfeiffer (Meagan Pfeiffer MD)
[2017-07-23] MEDS ORDERED: BENZONATATE 100MG CAP PO PRN (17:00)
[2017-07-23] MEDS ORDERED: METHYLPREDNISOLONE IV 125 MG in SYRINGE 0 ML IV ONE (17:00)
[2017-07-23] MEDS ORDERED: DILTIAZEM HCL 30 MG TAB PO ONE (18:15)
[2017-07-23] MEDS: GABAPENTIN 600 MG TAB PO SCH (21:03)
[2017-07-23] MEDS: TAMSULOSIN HCL 0.4 MG CAP PO SCH (21:05)
[2017-07-23] MEDS: VENLAFAXINE HCL XR 150 MG CAPXR PO SCH (21:05)
[2017-07-23] MEDS: MAGNESIUM OXIDE 400 MG TAB PO SCH (21:05)
[2017-07-23] MEDS: GUAIFENESIN 600 MG TABCR PO SCH (21:09)
[2017-07-24] VITALS (17 sets, daily range): BP systolic 100–156; BP diastolic 62–78; PULSE 55–145; TEMP 36.4–36.7; O2SAT 76–99
[2017-07-24] MEDS: METHYLPREDNISOLONE IV 60 MG in SYRINGE 0 ML IV SCH ×3 (00:31→21:31)
[2017-07-24] MEDS: CHECK FENTANYL PATCH PLACEMENT SCH ×6 (02:56→15:52)
[2017-07-24] MEDS: ALBUT/IPRATROP 3MG/0.5MG NEB 3 ML VIAL INH SCH ×6 (03:51→23:55)
[2017-07-24 06:14] LABS: HEMATOCRIT 28.8 % (42-52); HEMOGLOBIN 8.8 g/dL (14.0-18.0); MEAN CELL VOLUME 105.1 fL (80-100); MEAN CORPUSCULAR HEMOGLOBIN 32.1 pg (25-34); MEAN CORPUSCULAR HGB CONC 30.6 g/dl (32-36); MEAN PLATELET VOLUME 8.7 fL (7.4-10.4); PLATELET COUNT 105 K/uL (130-400); RED CELL DISTRIBUTION WIDTH CV 15.8 % (11.5-14.5); RED CELL DISTRIBUTION WIDTH SD 60.4 fL (36.4-46.3); WHITE BLOOD COUNT 9.82 K/uL (4.8-10.8)
[2017-07-24 06:56] LABS: BLOOD UREA NITROGEN 26 mg/dl (7-18); CREATININE 0.31 mg/dl (0.60-1.40); GLUCOSE 129 mg/dl (70-99); POTASSIUM 3.9 mmol/L (3.5-5.1); SODIUM 137 mmol/L (136-145)
[2017-07-24 07:28] LABS: CARBON DIOXIDE 50 mmol/L (21-32)
[2017-07-24] MEDS: DOCUSATE SODIUM 100 MG/10 ML UDC PO SCH ×2 (08:00→21:31)
[2017-07-24] MEDS ORDERED: DILTIAZEM HCL 120 MG EXT REL CAP PO SCH (08:00)
--- NOTE | 2017-07-24 08:21 | Clinical Documentation Query ---
QUERY 1 OF [address] CHAVARRIA, In your clinical opinion is this patient being managed for: ( x ) Metabolic encephalopathy ( ) Not Agree ( ) Other explanation of clinical findings (Please Explain) ( ) Unable to determine (Please Define) ( ) Need to Discuss The medical record reflects the following clinical findings, treatment, and risk factors. Clinical Indicators: 67 yo male presenting with waxing and waning mental status. Pt unresponsive upon arrival to ER. O2 sat 65% on 5L. Noted to have become alert and oriented following treatment Treatment: BIPAP, duonebs, IV solumedrol, IV fluids Risk Factors: acute hypercarbic and hypoxic respiratory failure, end stage lung cancer, end stage COPD QUERY 2 OF 3 In your clinical opinion is this patient being managed for: ( x ) Pressure ulcer R buttock, stage 2, POA ( ) Not Agree ( ) Other explanation of clinical findings (Please Explain) ( ) Unable to determine (Please Define) ( ) Need to Discuss The medical record reflects the following clinical findings, treatment, and risk factors. Clinical Indicators: Noted WOCN consult for open area on R buttock. WOCN note indicates pt with stage II pressure ulcers on R buttock. Treatment: WOCN consult, cleanse with saline and apply optifoam qod and prn, turn and repostition, waffle boots in bed, waffle cushion when OOB, EHOB to mary bed Risk Factors: end stage illness QUERY 3 OF 3 In your clinical opinion is this patient being managed for: ( x ) Acute exacerbation COPD ( ) COPD without exacerbation ( ) Not Agree ( ) Other explanation of clinical findings (Please Explain) ( ) Unable to determine (Please Define) ( ) Need to Discuss The medical record reflects the following clinical findings, treatment, and risk factors. Clinical Indicators: Pt noted to have COPD. Lungs with rhonchi Treatment: IV solumedrol, nebs, O2 support Risk Factors: severe COPD, acute/chronic respiratory failure, lung cancer Please clarify and document your clinical opinion in the progress notes and discharge summary. Terms such as "probable", "suspected", "likely", "questionable", "possible", or "still to be ruled out" are acceptable. IF IN AGREEMENT, YOU MUST DOCUMENT ABOVE DIAGNOSTIC STATEMENT IN DAILY PROGRESS NOTES AND DISCHARGE SUMMARY. This document is not part of the patient's record. Thank You, Iman Ovalles RN [phone]
[2017-07-24] MEDS: BUDESONIDE/FORMOTEROL FUMARATE 160/4.5 60 PUFFS/INHALER INH SCH ×2 (08:30→21:31)
[2017-07-24] MEDS: GUAIFENESIN 600 MG TABCR PO SCH ×2 (08:31→21:31)
[2017-07-24] MEDS: GABAPENTIN 600 MG TAB PO SCH ×3 (08:31→21:31)
[2017-07-24] MEDS: FINASTERIDE 5 MG TAB PO SCH (08:32)
[2017-07-24] MEDS: MAGNESIUM OXIDE 400 MG TAB PO SCH ×2 (08:32→21:32)
[2017-07-24] MEDS: ENOXAPARIN 120 MG/0.8 ML SYR SQ SCH (08:32)
[2017-07-24] MEDS: PANTOprazole SOD 40 MG TAB PO SCH (08:33)
[2017-07-24] MEDS: SENNA 8.6 MG TAB PO SCH (08:34)
[2017-07-24] MEDS: BISACODYL 5 MG TABEC PO SCH (08:36)
[2017-07-24] MEDS ORDERED: DILTIAZEM HCL 30 MG TAB PO ONE ×2 (16:15→22:00)
--- NOTE | 2017-07-24 16:44 | Hospitalist Progress Note ---
Hospitalist Progress Note Date of Service Jul 24, 2017. (Luna Leon .TERRIE) Subjective Pt evaluation today including: conversation w/ patient, physical exam, chart review, lab review, review of inpatient medication list Mr. Hagna reports that his is doing well. He is currently on an oxymask and has somewhat labored breathing. His pulse ox is also reading his pulse at 150 bpm or so. Family is at bedside and did discuss concerns for his heart rate. I did explain that it is likely his body attempting to compensate for his respiratory status and could possible be a rapid atrial fibrillation due to stress of his condition. Discussed plan for EKG and then medication to reduce heart rate. Also confirmed that patient is to have family meeting with palliative. ROS Constitutional: no chills, aches, sweats or fever Respiratory: no sob,cough, sputum, or wheezing Cardiac: no chest pain, palpitations, edema, orthopnea or lightheadedness GI: no abdominal pain, nausea, vomiting, diarrhea or constipation : no dysuria or hesitancy Extremities: no joint pain or weakness Skin: no rash All other systems reviewed and negative (Luna Leon CRNP) Medications Medications Administered Medications (Trade) Dose Ordered Sig/Abbi Route Start Time Stop Time Status Last Admin Dose Admin Methylprednisolone Sodium Succinate (Solu-Medrol IV) 125 mg NOW STAT IV 07/22/17 09:42 07/22/17 09:45 DC 07/22/17 09:59 125 MG Albuterol/ Ipratropium (Duoneb) 3 ml STK-MED ONCE .ROUTE 07/22/17 09:58 07/22/17 09:59 DC 07/22/17 10:02 3 ML Albuterol/ Ipratropium (Duoneb) 9 ml STK-MED ONCE .ROUTE 07/22/17 10:02 07/22/17 10:03 DC 07/22/17 10:03 9 ML Budesonide/ Formoterol Fumarate (Symbicort 160/ 4.5 Inh) 2 puffs BID INH 07/22/17 20:00 08/21/17 20:59 07/24/17 08:30 2 PUFFS Enoxaparin Sodium (Lovenox Inj) 120 mg QAM SQ 07/23/17 08:00 08/22/17 08:59 07/24/17 08:32 120 MG Fentanyl (Duragesic Patch) 12 mcg Q3D@0800 TD 07/23/17 08:00 08/06/17 07:59 07/23/17 08:32 12 MCG Fentanyl (Duragesic Patch) 100 mcg Q3D@0800 TD 07/23/17 08:00 08/06/17 07:59 07/23/17 08:32 100 MCG Albuterol/ Ipratropium (Duoneb) 3 ml Q4R INH 07/22/17 16:00 08/21/17 15:59 07/24/17 15:43 3 ML Docusate Sodium (coLACE SYRUP) 100 mg BID PO 07/22/17 20:00 08/21/17 20:59 07/23/17 21:07 100 MG Dextrose/Sodium Chloride 1,000 ml @ 15 mls/hr Q24H IV 07/22/17 14:57 07/23/17 16:44 DC 07/22/17 16:22 15 MLS/HR Prednisone (PredniSONE TAB) 10 mg DAILY PO 07/23/17 08:00 07/23/17 16:44 DC 07/23/17 08:21 10 MG Miscellaneous (Fentanyl Patch Remove & Waste) 1 ea Q3D@0759 N/A 07/23/17 07:59 08/22/17 07:58 07/23/17 08:35 1 EA Miscellaneous Information (Check Fentanyl Patch Placement) 1 ea QS N/A 07/22/17 16:00 08/21/17 15:59 07/24/17 15:52 1 EA Miscellaneous (Fentanyl Patch Remove & Waste) 1 ea Q3D@0759 N/A 07/23/17 07:59 08/22/17 07:58 07/23/17 08:35 1 EA Miscellaneous Information (Check Fentanyl Patch Placement) 1 ea QS N/A 07/22/17 16:00 08/21/17 15:59 07/24/17 15:52 1 EA Bisacodyl (Dulcolax Tab) 5 mg DAILY PO 07/24/17 08:00 08/23/17 07:59 07/24/17 08:36 5 MG Diltiazem HCl (TIAzac CAP) 120 mg DAILY PO 07/24/17 08:00 07/24/17 16:07 DC 07/24/17 08:31 120 MG Finasteride (Proscar Tab) 5 mg QAM PO 07/24/17 08:00 08/23/17 07:59 07/24/17 08:32 5 MG Folic Acid (Folvite Tab) 1 mg QPM PO 07/23/17 21:00 08/22/17 20:59 07/23/17 21:03 1 MG Gabapentin (Neurontin Tab) 600 mg TID PO 07/23/17 20:00 08/22/17 19:59 07/24/17 14:38 600 MG Guaifenesin (Mucinex Contr Rel Tab) 1,200 mg Q12 PO 07/23/17 21:00 08/22/17 20:59 07/24/17 08:31 1,200 MG Magnesium Oxide (Mag-Ox Tab) 400 mg BID PO 07/23/17 20:00 08/22/17 19:59 07/24/17 08:32 400 MG Pantoprazole Sodium (Protonix Tab) 40 mg DAILY PO 07/24/17 08:00 08/23/17 07:59 07/24/17 08:33 40 MG Senna (Senokot Tab) 17.2 mg QAM PO 07/24/17 08:00 08/23/17 07:59 07/24/17 08:34 17.2 MG Tamsulosin HCl (Flomax Cap) 0.4 mg HS PO 07/23/17 21:00 08/22/17 20:59 07/23/17 21:05 0.4 MG Venlafaxine HCl (effeXOR EXTENDED REL CAP) 150 mg QPM PO 07/23/17 21:00 08/22/17 20:59 07/23/17 21:05 150 MG Methylprednisolone Sodium Succinate 125 mg/Syringe 2 ml @ 1.5 mls/min NOW ONCE IV 07/23/17 17:00 07/23/17 17:01 DC 07/23/17 17:22 1.5 MLS/MIN Methylprednisolone Sodium Succinate 60 mg/Syringe 0.96 ml @ 1.5 mls/min Q8H IV 07/24/17 01:00 07/24/17 16:07 DC 07/24/17 08:32 1.5 MLS/MIN Diltiazem HCl (Cardizem Tab) 30 mg NOW ONCE PO 07/23/17 18:15 07/23/17 18:16 DC 07/23/17 19:06 30 MG (Luna Leon CRNP) Objective Vital Signs Date Time Temp Pulse Resp B/P (MAP) Pulse Ox O2 Delivery O2 Flow Rate FiO2 07/24/17 15:44 69 15 97 Mask 10.0 07/24/17 15:40 36.7 141 20 110/69 (83) 99 Oxymask 7.0 07/24/17 11:19 36.7 118 18 110/63 (79) 95 Nasal Cannula 10.0 07/24/17 11:15 55 15 93 Mask 10.0 07/24/17 08:06 93 Oxymask 10.0 07/24/17 08:02 76 Nasal Cannula 6.0 07/24/17 08:00 93 Oxymask 10.0 07/24/17 07:45 36.4 117 22 156/78 (104) 93 07/24/17 07:20 78 18 91 BiPAP/CPAP 45 07/24/17 07:20 78 91 45 07/24/17 04:03 76 20 102/62 (75) 97 BiPAP 07/24/17 03:53 76 95 45 07/24/17 03:52 67 20 94 BiPAP/CPAP 45 07/24/17 00:00 93 BiPAP 07/23/17 23:54 36.4 55 152/76 (101) 93 BiPAP 07/23/17 23:09 79 95 45 07/23/17 23:05 79 18 92 Nasal Cannula 6.0 07/23/17 19:04 88 18 96 Nasal Cannula 6.0 07/23/17 19:00 92 110/64 (79) (Luna Leon CRNP) Physical Exam Notes: General: no distress Eyes: normal inspection, PERLL Respiratory: chest non tender, coarse breath sounds bilaterally, labored breathing Cardiac: regular rate and rhythm, no rub or gallop, no murmur, no edema, no jvd GI/: active bowel sounds, no abd pain or tenderness, soft, non distended Extremities: normal range of motion, normal strength, non tender Neuro/Psych: alert and oriented x 3, normal mood and affect Skin: normal color, dry (Luna Leon CRNP) Laboratory Results Last 24 Hours Test 07/24/17 05:48 White Blood Count 9.82 K/uL Red Blood Count 2.74 M/uL Hemoglobin 8.8 g/dL Hematocrit 28.8 % Mean Corpuscular Volume 105.1 fL Mean Corpuscular Hemoglobin 32.1 pg Mean Corpuscular Hemoglobin Concent 30.6 g/dl RDW Standard Deviation 60.4 fL RDW Coefficient of Variation 15.8 % Platelet Count 105 K/uL Mean Platelet Volume 8.7 fL Sodium Level 137 mmol/L Potassium Level 3.9 mmol/L Chloride Level 87 mmol/L Carbon Dioxide Level 50 mmol/L Anion Gap 0.0 mmol/L Blood Urea Nitrogen 26 mg/dl Creatinine 0.31 mg/dl Est Creatinine Clear Calc Drug Dose 216.2 ml/min Estimated GFR () > 150.0 Estimated GFR (Non- 136.5 BUN/Creatinine Ratio 83.1 Random Glucose 129 mg/dl Calcium Level 10.0 mg/dl (Luna Leon CRNP) Assessment and Plan 67yo C male with metastatic non-small cell carcinoma of the lung, severe oxygen dependent COPD presenting with acute on chronic hypercarbic respiratory failure requiring rescue BiPAP. Hypercarbic respiratory failure/ End stage COPD - acute on chronic. VBG initially 7.24/124/61/52. Patient's mental status improved with bipap. He is now on an oxymask as he does not tolerate bipap for long periods of time Baseline O2 requirement is 4-5L via NC at rest, and BiPAP at night and with naps. Condition most likely represents normal disease progression, patient with multiple hospitalizations over the past few months. No evidence of infection at present. - repeat VBG was 7.39, continue bipap as patient can tolerate -Target SaO2 of 88-92% -Palliative care consult - in the past patient has been very resistant to discussions about end of life - family and palliative care agreed to meet tomorrow -Will continue pain management with Fentanyl patches 112mcg q 72 hours and Morphine 10mg po q 2 hours PRN -Continue Zofran ODT PRN -Bowel regimen Miralax and Colace - restarted home po meds as taking po - continue solu-medrol 60 mg q8h. -Continue DuoNebs q 4 hours scheduled -Albuterol q2 hours PRN -Continue home Symbicort -Continue home Budesonide PAF - EKG showed A.flutter with RVR - will give 30 mg IR diltiazem q8h x2 now and then increase daily ER dose to 180 mg - He was on Diltiazem and Lovenox anticoagulation as outpatient -Continue Lovenox 120mg daily Anemia - macrocytic, history of folate deficiency. stable. No active bleeding -Continue to monitor History of PEs - remote, stable. -Continue Lovenox as above BPH - stable. Restart finasteride for now F/E/N - stop IVF per POL however patient stated that he agrees to IVF if necessary, taking PO ok PPx - Lovenox at home dose Code - DNR-LT Dispo - family to meet with palliative care to discuss returning home as that is patient's goal however patient has thus far been resistant to hospice. 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 Discussed with TERRIE Leon and agree with findings and plan as documented in the note. Any exceptions or clarifications are listed here: Patient denies shortness of breath or heart palpitations, no chest pain. He is looking forward to meeting as a family and with palliative care tomorrow to discuss his final disposition Vitals reviewed Appears cyanotic, NAD Irregularly irregular with tachycardia, no murmur audible Diffuse coarse breath sounds bilaterally, positive expiratory wheezes, decreased breath sounds at the bases Abdomen positive bowel sounds soft nontender nondistended Extremities chronic venous stasis changes, 1+ pitting edema bilaterally in the legs Patient is a 67-year-old male with a history of stage IV metastatic lung adenocarcinoma, severe end-stage COPD, here with acute on chronic hypercarbic and hypoxic respiratory failure after not being on BiPAP for prolonged period of time. Is back to his baseline now. -Rapid atrial fibrillation-increase p.o. diltiazem for improved rate control, however patient is asymptomatic with this -Continue BiPAP nightly and as needed during the day, otherwise nasal cannula -Giving IV steroids which may also help his blood pressure with stress dose steroids as well as his COPD and then taper back down to p.o. prednisone -We will look into placement at a different correction versus going home with hospice -Agree with palliative care assessment-he is nearing the end of life. Plan for family meeting with palliative care tomorrow Documented By: Meagan Pfeiffer (Meagan Pfeiffer MD)
[2017-07-24] MEDS: VENLAFAXINE HCL XR 150 MG CAPXR PO SCH (21:31)
[2017-07-24] MEDS: TAMSULOSIN HCL 0.4 MG CAP PO SCH (21:32)
[2017-07-24] MEDS ORDERED: NURSING DECISION MEDICATION ORDER SCH ×2 (22:15→22:30)
[2017-07-24] MEDS ORDERED: COUGH DROP (SUGAR FREE) LOZ 24 LOZ/1 BOX LOZ PRN (22:30)
[2017-07-25] VITALS (13 sets, daily range): BP systolic 80–128; BP diastolic 51–77; PULSE 68–183; TEMP 36.4–36.8; O2SAT 90–99
[2017-07-25] MEDS: ALBUT/IPRATROP 3MG/0.5MG NEB 3 ML VIAL INH SCH ×3 (03:40→11:15)
[2017-07-25] MEDS: CHECK FENTANYL PATCH PLACEMENT SCH ×6 (04:11→16:04)
[2017-07-25 07:05] LABS: HEMATOCRIT 28.7 % (42-52); HEMOGLOBIN 8.6 g/dL (14.0-18.0); MEAN CELL VOLUME 104.7 fL (80-100); MEAN CORPUSCULAR HEMOGLOBIN 31.4 pg (25-34); MEAN PLATELET VOLUME 9.1 fL (7.4-10.4); PLATELET COUNT 112 K/uL (130-400); RED CELL DISTRIBUTION WIDTH CV 15.7 % (11.5-14.5); RED CELL DISTRIBUTION WIDTH SD 60.5 fL (36.4-46.3); WHITE BLOOD COUNT 11.97 K/uL (4.8-10.8)
[2017-07-25 07:34] LABS: CALCIUM 9.3 mg/dl (8.5-10.1); CREATININE 0.47 mg/dl (0.60-1.40)
[2017-07-25] MEDS: MoRPHine SULFATE 10 MG/0.5 ML UDP PO PRN (07:52)
[2017-07-25] MEDS: BISACODYL 5 MG TABEC PO SCH (07:52)
[2017-07-25] MEDS: METHYLPREDNISOLONE IV 60 MG in SYRINGE 0 ML IV SCH (07:52)
[2017-07-25] MEDS: ENOXAPARIN 120 MG/0.8 ML SYR SQ SCH (07:55)
[2017-07-25] MEDS: BUDESONIDE/FORMOTEROL FUMARATE 160/4.5 60 PUFFS/INHALER INH SCH ×2 (07:57→20:11)
[2017-07-25] MEDS: SENNA 8.6 MG TAB PO SCH (07:58)
[2017-07-25] MEDS: DILTIAZEM HCL (TIAzac) 180 MG CAPCR PO SCH (07:58)
[2017-07-25] MEDS: PANTOprazole SOD 40 MG TAB PO SCH (07:58)
[2017-07-25] MEDS: DOCUSATE SODIUM 100 MG/10 ML UDC PO SCH (07:59)
[2017-07-25] MEDS: FINASTERIDE 5 MG TAB PO SCH (07:59)
[2017-07-25] MEDS: MAGNESIUM OXIDE 400 MG TAB PO SCH ×2 (07:59→20:12)
[2017-07-25] MEDS: GUAIFENESIN 600 MG TABCR PO SCH ×2 (07:59→20:12)
[2017-07-25] MEDS: GABAPENTIN 600 MG TAB PO SCH ×3 (07:59→20:12)
[2017-07-25] MEDS ORDERED: NURSING DECISION MEDICATION ORDER SCH (08:15)
[2017-07-25] MEDS: DOCUSATE SODIUM 100 MG CAP PO SCH ×2 (08:51→20:11)
--- NOTE | 2017-07-25 09:11 | Hospitalist Progress Note ---
Hospitalist Progress Note Date of Service Jul 25, 2017. (Smitha Mcnamara PA-C) Subjective Pt evaluation today including: conversation w/ patient, conversation w/ family , physical exam, chart review, lab review, review of studies Pain: R shoulder pain - well controlled PO Intake: Good Voiding: no voiding problems The patient was seen and examined this morning. Pt reports doing ok today. Patient notes his breathing has improved since being admitted. He denies any chest heaviness or tightness. He has been tolerating BiPAP with his home mask without any difficulty. Last night he slept from midnight until 730 this morning. He reports his pain is well controlled in the right shoulder rated 4/ 10 with fentanyl 112 mcg and oral oxycodone as needed. He feels that radiation therapy did help his pain overall which finished the end of June. His is present at bedside. They are planning on a palliative meeting scheduled for [address] [place] [address] to discuss the goals of care. All their questions and concerns were addressed at bedside. Additional Comments: Constitutional: No fever, sweats or chills Eyes: No diplopia, no worsening or blurred vision ENT: normal hearing, no trouble swallowing Respiratory: No cough, sputum, dyspnea at rest or on exertion Cardiovascular: No chest pain, tightness or palpitations Abdomen: No pain, nausea, vomiting, diarrhea or constipation Musculoskeletal: R shoulder pain chronic but well controlled, no calf pain, swelling Neurologic: No weakness, numbness/tingling, or balance problems Psychiatric: No anxiety or depression Skin: No rash or itch (Smitha Mcnamara PA-C) Objective Vital Signs Date Time Temp Pulse Resp B/P (MAP) Pulse Ox O2 Delivery O2 Flow Rate FiO2 07/25/17 07:46 93 106/59 (75) 07/25/17 07:24 36.5 183 18 80/51 (61) 92 Nasal Cannula 5.0 07/25/17 07:05 68 20 95 Nasal Cannula 5.0 07/25/17 04:15 36.4 154 20 101/77 (85) 99 BiPAP 07/25/17 01:18 120 07/25/17 00:17 154 99 45 07/25/17 00:17 36.6 68 20 103/69 (80) 98 Nasal Cannula 11.0 07/25/17 00:00 95 BiPAP 3/22/18 22:36 120 20 91 Oxymask 10.0 07/24/17 19:29 36.6 145 20 100/63 (75) 98 Nasal Cannula 10.0 07/24/17 17:20 115 20 90 Nasal Cannula 10.0 07/24/17 16:00 97 Oxymask 10.0 45 Mask 07/24/17 15:44 69 15 97 Mask 10.0 07/24/17 15:40 36.7 141 20 110/69 (83) 99 Oxymask 7.0 07/24/17 11:19 36.7 118 18 110/63 (79) 95 Nasal Cannula 10.0 07/24/17 11:15 55 15 93 Mask 10.0 (Smitha Mcnamara PA-C) Physical Exam Notes: General: awake, alert, no apparent distress Head: Normocephalic, atraumatic ENT: PERRL, EOMI, no pharyngeal exudate, mucous membranes moist Chest: On 5 L via NC, coarse breath sounds throughout with faint crackles in bilateral bases, faint inspiratory wheeze on the LLL. Cardiac: NSR, no murmur, no JVD, normal peripheral pulses, good capillary refill Abdominal: NABS x 4 quadrants, soft, nontender to palpation, no rebound, guarding or tenderness Extremities: Normal inspection, no peripheral edema or erythema, calfs nontender to palpation Psych: Normal mood and affect Neuro: AAO x 3, speech is clear, no peripheral sensory deficits (Smitha Mcnamara PA-C) Laboratory Results Last 24 Hours Test 07/25/17 06:41 White Blood Count 11.97 K/uL Red Blood Count 2.74 M/uL Hemoglobin 8.6 g/dL Hematocrit 28.7 % Mean Corpuscular Volume 104.7 fL Mean Corpuscular Hemoglobin 31.4 pg Mean Corpuscular Hemoglobin Concent 30.0 g/dl RDW Standard Deviation 60.5 fL RDW Coefficient of Variation 15.7 % Platelet Count 112 K/uL Mean Platelet Volume 9.1 fL Sodium Level 137 mmol/L Potassium Level 4.0 mmol/L Chloride Level 90 mmol/L Carbon Dioxide Level 44 mmol/L Anion Gap 3.0 mmol/L Blood Urea Nitrogen 21 mg/dl Creatinine 0.47 mg/dl Est Creatinine Clear Calc Drug Dose 155.6 ml/min Estimated GFR () 133.3 Estimated GFR (Non- 115.0 BUN/Creatinine Ratio 44.6 Random Glucose 135 mg/dl Calcium Level 9.3 mg/dl (Smitha Mcnamara, MAKSIM) Assessment and Plan 67yo C male with metastatic non-small cell carcinoma of the lung, severe oxygen dependent COPD presenting with acute on chronic hypercarbic respiratory failure requiring rescue BiPAP. Hypercarbic respiratory failure/ End stage COPD - acute on chronic. - VBG initially 7.24/124/61/52 - now improved. Patient's mental status improved with bipap. Continue to use oxygen mask and nasal cannula as needed. - baseline O2 requirement is 4-5L via NC at rest, and BiPAP at night and with naps - Target SaO2 of 88-92% - Condition most likely represents normal disease progression, patient with multiple hospitalizations over the past few months. No evidence of infection at present. - Palliative care consult - in the past patient has been very resistant to discussions about end of life - family and palliative care to meet this evening. 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 - venlafaxine ER 150 mg QPM Anxiety - Situational anxiety - Cont venlafaxine 150 mg QPM, and xanax 0.25 mg Q8H prn Chronic pancytopenia likely secondary to metastatic lung cancer/disease progression - Continue folic acid 1mg daily - Hgb stable, follow periodically Hx of DVT and PE - Lovenox 40mg Daily prophylaxis Paroxysmal Atrial Fibrillation - No chronic anticoagulation secondary to comorbidities - Currently NSR, rates controlled BPH - Finasteride 5 mg, Tamsulosin 0.4 mg DVT ppx: lovenox CODE STATUS: DNR, palliative to have family meeting with pt today. Disposition: From home, CM assisting with discharge planning, planned that palliative will determine goals of care, ie hospice, Discharge when medically stable. (Smitha Mcnamara PA-C) Attending Attestation - Pt seen/examined, chart reviewed, care plan d/w DANETTE Mcnamara. I agree w/ the thurman components of her documentation. I had a lengthy discussion with the pt and his daughter today. Mr. Hagan initially asked if he could go to [facility]. I told Mr. Hagan he was not a candidate for such. We spoke about other SNFs in [place] - I stated that I thought he would get very good care at another SNF, but this would not change the fact that he would likely land back in the hospital because of his cardiopulmonary diseases. He voiced understanding. I recommended that he return home with hospice if his goal was to enjoy as much time as possible with his friends/family. He voiced concerns about finances and asked that we somehow "let [facility] know that the [facility] cancer is causing all my problems." HRs today noted to be very rapid in the 150s. no symptoms from this, however. vitals - tachy o2 sats acceptable gen - NAD heart - irregular, tachy lungs - course BS b/l with rales, wheeze abd - distended ext - no edema A/P: 1. acute/chronic hypoxic/hypercarbic resp failure 2. progressive stage 4 lung ca 3. steroid-dependent end-stage COPD 4. a. fib/flutter w/ RVR 5. severe deconditioning due to all of the above to try and avoid having to transfer to tele we tried digoxin loading earlier today w/o success in rate control due to the fact he is on therapeutic lovenox and has been going in/out of NSR I suggested amiodarone 400mg BID to try and maintain NSR can lower steroids to prednisone 60mg daily starting in AM palliative director of patient care met with pt, his girlfriend Julita, and his daughter today patient now electing to return home w/ hospice those arrangements will be started this weekend total time about 60 minutes over 2 visits and multiple discussions with pt, his family, palliative care, and cardiology Leslie GRIFFIN MD (Awais Griffin MD)
[2017-07-25] MEDS ORDERED: DIGOXIN IV 250 MCG in SYRINGE 9 ML IV SCH (14:00)
[2017-07-25] MEDS: LEVALBUTEROL 1.25MG/3ML NEB INH SCH ×2 (14:56→19:02)
--- NOTE | 2017-07-25 19:54 | Palliative Care Progress Note ---
Palliative Care Progress Note Date of Service Jul 25, 2017. Subjective Pt evaluation today including: conversation w/ patient, conversation w/ family , physical exam Pain: 06/14 This 67 year old male remains inpatient with end stage COPD, stage IV non-small cell lung cancer, with mets to liver and bone. A bedside family meeting was held per patient and family request in order to discuss goals of care. Julita Flores (significant other), daughter Ming Christie (brother) and Charu (sister in law) present for the meeting. Upon entering the room, Mr. Hagan was sitting up in bed, eating his dinner without difficulty. He was oriented and able to have an appropriate conversation related to his goals of care. He is in a rapid A-fib in the 150's. He is requiring 5 LNC and his SPO2 remained around 92% throughout the meeting. His skin was pale, but with significantly more color than two days prior. Pt pain is controlled with prescribed Fentanyl patch and he has had one dose of Roxanol over the past 24 hours. Pt is a level 5 DNR. Pt has been resistant to comfort care/hospice at previous admissions; however, today, he was very open and reassuring to his significant other, Julita , that he is ready to go home and 'live the rest of his days' there. He stated ' Who knows, maybe I can make spaghetti sauce one last time'. Lengthy discussion about what Hospice is and how it can manage his symptoms. Significant education and discussion held between Julita and patient expressing his wishes to return home and not return to the hospital. Julita had questions on what to do if she thinks his CO2 levels start to climb and he becomes less responsive and we discussed how Hospice would be helpful in that situation. Lengthy discussion was held regarding his disease process and progression. Based on their previous experience at a SNF, they have declined going to another facility outside of the hospital. The family had questions about why he could not stay here at the hospital and those questions were addressed, indicating that his care requirements did not meet inpatient hospice requirements. The family is requesting to discuss what Hospice agencies they would qualify for financially and if [facility] on this. I stated that I would touch base with CM in the morning for them to follow up and address their needs. Mr. Hagan was to restart radiation therapy for palliation on 07/29 and we discussed that he may be able to have a palliative radiation treatment on Friday, prior to him going home. I phoned Dr. Moffett after the meeting to advise him of the outcome of the discussion as he met with the family earlier in the day as well, and he stated he would phone rad/onc on Friday to see if we could arrange for him to receive his treatment prior to returning home. POLST form has been signed and placed on chart for this admission. Review of Systems Constitutional: No see HPI, No fever, No chills, No sweats, No weight loss, No weakness, No fatigue, No problem reported Eyes: No see HPI, No worsening of vision, No eye pain, No redness, No discharge , No diplopia, No problem reported ENT: No see HPI, No hearing loss, No unusual epistaxis, No nasal symptoms, No sore throat, No tinnitus, No dental problems, No trouble swallowing, No problem reported Respiratory: + shortness of breath Cardiac: No see HPI, No chest pain, No orthopnea, No PND, No edema, No claudication, No palpitations, No problem reported Breast: No see HPI, No breast lump, No change in shape, No nipple discharge, No breast pain, No problem reported Abdomen: No see HPI, No pain, No nausea, No vomiting, No diarrhea, No constipation, No GI bleeding, No problem reported Musculoskeletal: No see HPI, No joint pain, No muscle pain, No swelling, No calf pain, No problem reported Male : No see HPI, No dysuria, No urinary frequency, No incontinence, No nocturia more than once/night, No slowing stream, No hematuria, No sexual dysfunction, No problem reported Neurologic: No see HPI, No memory loss, No paralysis, No weakness, No numbness/ tingling, No vertigo, No balance problems, No problem reported Psychiatric: No see HPI, No depression symptoms, No anhedonism, No anxiety, No insomnia, No substance abuse, No problem reported Heme: No see HPI, No abnormal bleeding/bruising, No clotting problems, No swollen lymph nodes, No night sweats, No problem reported Endo: No see HPI, No fatigue, No excessive thirst, No excessive urination, No problem reported Skin: No see HPI, No rash, No itch, No new/changing skin lesions, No color change, No bleeding, No problem reported Objective Vital Signs Date Time Temp Pulse Resp B/P (MAP) Pulse Ox O2 Delivery O2 Flow Rate FiO2 07/25/17 19:11 36.8 146 20 105/64 (78) 95 Nasal Cannula 5.0 07/25/17 16:02 148 07/25/17 16:00 96 Nasal Cannula 6.0 45 07/25/17 15:24 36.6 74 20 103/70 (81) 96 5.0 07/25/17 11:15 80 20 94 Nasal Cannula 5.0 07/25/17 11:06 36.7 70 24 99/62 (74) 90 Nasal Cannula 5.0 07/25/17 09:00 Nasal Cannula 5.0 07/25/17 07:46 93 106/59 (75) 07/25/17 07:24 36.5 183 18 80/51 (61) 92 Nasal Cannula 5.0 07/25/17 07:05 68 20 95 Nasal Cannula 5.0 07/25/17 04:15 36.4 154 20 101/77 (85) 99 BiPAP 07/25/17 01:18 120 07/25/17 00:17 154 99 45 07/25/17 00:17 36.6 68 20 103/69 (80) 98 Nasal Cannula 11.0 07/25/17 00:00 95 BiPAP 07/24/17 22:36 120 20 91 Oxymask 10.0 07/24/17 19:29 36.6 145 20 100/63 (75) 98 Nasal Cannula 10.0 Physical Exam General Appearance: no apparent distress Cardiovascular: + irregularly irregular (rapid a-fib) Abdomen: normal bowel sounds, soft Extremities: normal range of motion, no pedal edema 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: alert, oriented x 3 Skin: normal color Laboratory Results Last 24 Hours Test 07/25/17 06:41 White Blood Count 11.97 K/uL Red Blood Count 2.74 M/uL Hemoglobin 8.6 g/dL Hematocrit 28.7 % Mean Corpuscular Volume 104.7 fL Mean Corpuscular Hemoglobin 31.4 pg Mean Corpuscular Hemoglobin Concent 30.0 g/dl RDW Standard Deviation 60.5 fL RDW Coefficient of Variation 15.7 % Platelet Count 112 K/uL Mean Platelet Volume 9.1 fL Sodium Level 137 mmol/L Potassium Level 4.0 mmol/L Chloride Level 90 mmol/L Carbon Dioxide Level 44 mmol/L Anion Gap 3.0 mmol/L Blood Urea Nitrogen 21 mg/dl Creatinine 0.47 mg/dl Est Creatinine Clear Calc Drug Dose 155.6 ml/min Estimated GFR () 133.3 Estimated GFR (Non- 115.0 BUN/Creatinine Ratio 44.6 Random Glucose 135 mg/dl Calcium Level 9.3 mg/dl Assessment and Plan (1) Metastatic cancer (2) Hypoxemia Status: Acute (3) Respiratory failure Status: Acute (4) COPD (chronic obstructive pulmonary disease) Status: Chronic (5) Adenocarcinoma of unknown primary Status: Chronic (6) 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 -Continue supportive and conservative pain management with Fentanyl patch and Roxanol. Due to current pain control, I do not see a need to alter or add any additional medications for comfort. -Continue to offer support to patient and STEPHANIE Julita while inpatient Total time spent 90 minutes with >75% of time spent with patient and family discussing goals of care and plan of care. Palliative Performance Scale: 30 % Discharge planning: home with Hospice (pt agreeable to return home with hospice support in place)
[2017-07-25] MEDS: TAMSULOSIN HCL 0.4 MG CAP PO SCH (20:11)
[2017-07-25] MEDS: VENLAFAXINE HCL XR 150 MG CAPXR PO SCH (20:12)
[2017-07-25] MEDS ORDERED: AMIODARONE 200 MG TAB PO ONE (20:15)
[2017-07-26] VITALS (11 sets, daily range): BP systolic 107–124; BP diastolic 56–73; PULSE 77–115; TEMP 36.3–36.7; O2SAT 90–96
[2017-07-26] MEDS: CHECK FENTANYL PATCH PLACEMENT SCH ×8 (00:14→23:41)
[2017-07-26] MEDS: LEVALBUTEROL 1.25MG/3ML NEB INH SCH ×4 (01:47→19:14)
[2017-07-26 06:49] LABS: HEMOGLOBIN 9.1 g/dL (14.0-18.0); MEAN CELL VOLUME 107.1 fL (80-100); MEAN CORPUSCULAR HEMOGLOBIN 32.5 pg (25-34); MEAN CORPUSCULAR HGB CONC 30.3 g/dl (32-36); MEAN PLATELET VOLUME 9.2 fL (7.4-10.4); PLATELET COUNT 101 K/uL (130-400); RED CELL DISTRIBUTION WIDTH CV 15.8 % (11.5-14.5); RED CELL DISTRIBUTION WIDTH SD 61.6 fL (36.4-46.3); WHITE BLOOD COUNT 13.08 K/uL (4.8-10.8)
[2017-07-26 07:36] LABS: CALCIUM 9.2 mg/dl (8.5-10.1); CREATININE 0.41 mg/dl (0.60-1.40); POTASSIUM 3.8 mmol/L (3.5-5.1)
[2017-07-26] MEDS: MAGNESIUM OXIDE 400 MG TAB PO SCH ×2 (08:42→20:19)
[2017-07-26] MEDS: GUAIFENESIN 600 MG TABCR PO SCH ×2 (08:42→20:21)
[2017-07-26] MEDS: DILTIAZEM HCL (TIAzac) 180 MG CAPCR PO SCH (08:42)
[2017-07-26] MEDS: PANTOprazole SOD 40 MG TAB PO SCH (08:42)
[2017-07-26] MEDS: DOCUSATE SODIUM 100 MG CAP PO SCH ×2 (08:43→20:20)
[2017-07-26] MEDS: BUDESONIDE/FORMOTEROL FUMARATE 160/4.5 60 PUFFS/INHALER INH SCH ×2 (08:43→20:17)
[2017-07-26] MEDS: GABAPENTIN 600 MG TAB PO SCH ×3 (08:43→20:20)
[2017-07-26] MEDS: SENNA 8.6 MG TAB PO SCH (08:44)
[2017-07-26] MEDS: FINASTERIDE 5 MG TAB PO SCH (08:44)
[2017-07-26] MEDS: ENOXAPARIN 120 MG/0.8 ML SYR SQ SCH (08:45)
[2017-07-26] MEDS: BISACODYL 5 MG TABEC PO SCH (08:50)
[2017-07-26] MEDS: AMIODARONE 200 MG TAB PO SCH ×2 (08:50→20:20)
[2017-07-26] MEDS: FENTANYL 100 MCG/HR TDSY TD SCH (08:52)
[2017-07-26] MEDS: FENTANYL 12 MCG/HR TDSY TD SCH (08:52)
[2017-07-26] MEDS: FENTANYL PATCH REMOVE & WASTE SCH ×2 (09:00→09:01)
[2017-07-26] MEDS: MoRPHine SULFATE 10 MG/0.5 ML UDP PO PRN ×4 (09:16→19:07)
--- NOTE | 2017-07-26 12:59 | Hospitalist Progress Note ---
Hospitalist Progress Note Date of Service Jul 26, 2017. (Luna Leon .TERRIE) Subjective Pt evaluation today including: conversation w/ patient, conversation w/ family , physical exam, chart review, lab review, review of inpatient medication list Voiding: no voiding problems Mr. Hagan has no complaints today. His heart rate is improved, ranging from 80s-100. He is at his baseline sob. ROS Constitutional: no chills, aches, sweats or fever Respiratory: see HPI Cardiac: no chest pain, palpitations, edema, orthopnea or lightheadedness GI: no abdominal pain, nausea, vomiting, diarrhea or constipation : no dysuria or hesitancy Extremities: no joint pain or weakness Skin: no rash All other systems reviewed and negative (Luna Leon CRNP) Medications Medications Administered Medications (Trade) Dose Ordered Sig/Abbi Route Start Time Stop Time Status Last Admin Dose Admin Methylprednisolone Sodium Succinate (Solu-Medrol IV) 125 mg NOW STAT IV 07/22/17 09:42 07/22/17 09:45 DC 07/22/17 09:59 125 MG Albuterol/ Ipratropium (Duoneb) 3 ml STK-MED ONCE .ROUTE 07/22/17 09:58 07/22/17 09:59 DC 07/22/17 10:02 3 ML Albuterol/ Ipratropium (Duoneb) 9 ml STK-MED ONCE .ROUTE 07/22/17 10:02 07/22/17 10:03 DC 07/22/17 10:03 9 ML Budesonide/ Formoterol Fumarate (Symbicort 160/ 4.5 Inh) 2 puffs BID INH 07/22/17 20:00 08/21/17 20:59 07/26/17 08:43 2 PUFFS Enoxaparin Sodium (Lovenox Inj) 120 mg QAM SQ 07/23/17 08:00 08/22/17 08:59 07/26/17 08:45 120 MG Fentanyl (Duragesic Patch) 12 mcg Q3D@0800 TD 07/23/17 08:00 08/06/17 07:59 07/26/17 08:52 12 MCG Fentanyl (Duragesic Patch) 100 mcg Q3D@0800 TD 07/23/17 08:00 08/06/17 07:59 07/26/17 08:52 100 MCG Albuterol/ Ipratropium (Duoneb) 3 ml Q4R INH 07/22/17 16:00 07/25/17 13:59 DC 07/25/17 11:15 3 ML Morphine Sulfate (Roxanol Oral Soln) 10 mg Q2H PRN PO 07/22/17 15:15 08/05/17 15:14 07/26/17 12:43 10 MG Docusate Sodium (coLACE SYRUP) 100 mg BID PO 07/22/17 20:00 07/25/17 08:08 DC 07/24/17 21:31 100 MG Dextrose/Sodium Chloride 1,000 ml @ 15 mls/hr Q24H IV 07/22/17 14:57 07/23/17 16:44 DC 07/22/17 16:22 15 MLS/HR Prednisone (PredniSONE TAB) 10 mg DAILY PO 07/23/17 08:00 07/23/17 16:44 DC 07/23/17 08:21 10 MG Miscellaneous (Fentanyl Patch Remove & Waste) 1 ea Q3D@0759 N/A 07/23/17 07:59 08/22/17 07:58 07/26/17 09:00 1 EA Miscellaneous Information (Check Fentanyl Patch Placement) 1 ea QS N/A 07/22/17 16:00 08/21/17 15:59 07/26/17 08:50 1 EA Miscellaneous (Fentanyl Patch Remove & Waste) 1 ea Q3D@0759 N/A 07/23/17 07:59 08/22/17 07:58 07/26/17 09:01 1 EA Miscellaneous Information (Check Fentanyl Patch Placement) 1 ea QS N/A 07/22/17 16:00 08/21/17 15:59 07/26/17 08:51 1 EA Bisacodyl (Dulcolax Tab) 5 mg DAILY PO 07/24/17 08:00 08/23/17 07:59 07/26/17 08:50 5 MG Diltiazem HCl (TIAzac CAP) 120 mg DAILY PO 07/24/17 08:00 07/24/17 16:07 DC 07/24/17 08:31 120 MG Finasteride (Proscar Tab) 5 mg QAM PO 07/24/17 08:00 08/23/17 07:59 07/26/17 08:44 5 MG Folic Acid (Folvite Tab) 1 mg QPM PO 07/23/17 21:00 08/22/17 20:59 07/25/17 20:13 1 MG Gabapentin (Neurontin Tab) 600 mg TID PO 07/23/17 20:00 08/22/17 19:59 07/26/17 08:43 600 MG Guaifenesin (Mucinex Contr Rel Tab) 1,200 mg Q12 PO 07/23/17 21:00 08/22/17 20:59 07/26/17 08:42 1,200 MG Magnesium Oxide (Mag-Ox Tab) 400 mg BID PO 07/23/17 20:00 08/22/17 19:59 07/26/17 08:42 400 MG Pantoprazole Sodium (Protonix Tab) 40 mg DAILY PO 07/24/17 08:00 08/23/17 07:59 07/26/17 08:42 40 MG Senna (Senokot Tab) 17.2 mg QAM PO 07/24/17 08:00 08/23/17 07:59 07/26/17 08:44 17.2 MG Tamsulosin HCl (Flomax Cap) 0.4 mg HS PO 07/23/17 21:00 08/22/17 20:59 07/25/17 20:11 0.4 MG Venlafaxine HCl (effeXOR EXTENDED REL CAP) 150 mg QPM PO 07/23/17 21:00 08/22/17 20:59 07/25/17 20:12 150 MG Methylprednisolone Sodium Succinate 125 mg/Syringe 2 ml @ 1.5 mls/min NOW ONCE IV 07/23/17 17:00 07/23/17 17:01 DC 07/23/17 17:22 1.5 MLS/MIN Methylprednisolone Sodium Succinate 60 mg/Syringe 0.96 ml @ 1.5 mls/min Q8H IV 07/24/17 01:00 07/24/17 16:07 DC 07/24/17 08:32 1.5 MLS/MIN Diltiazem HCl (Cardizem Tab) 30 mg NOW ONCE PO 07/23/17 18:15 07/23/17 18:16 DC 07/23/17 19:06 30 MG Methylprednisolone Sodium Succinate 60 mg/Syringe 0.96 ml @ 1.5 mls/min Q12H IV 07/24/17 21:00 07/25/17 19:24 DC 07/25/17 07:52 1.5 MLS/MIN Diltiazem HCl (TIAzac CAP) 180 mg DAILY PO 07/25/17 08:00 08/23/17 07:59 07/26/17 08:42 180 MG Diltiazem HCl (Cardizem Tab) 30 mg NOW ONCE PO 07/24/17 16:15 07/24/17 16:25 DC 07/24/17 17:35 30 MG Diltiazem HCl (Cardizem Tab) 30 mg 2200 ONCE PO 07/24/17 22:00 07/24/17 22:01 DC 07/24/17 22:13 30 MG Docusate Sodium (coLACE CAP) 100 mg BID PO 07/25/17 08:00 08/24/17 07:59 07/26/17 08:43 100 MG Digoxin 250 mcg/ Syringe 10 ml @ 2 mls/min Q6H IV 07/25/17 14:00 Future Hold 07/25/17 16:02 2 MLS/MIN Levalbuterol (Xopenex 1.25MG/ 3ML Neb) 1.25 mg Q6R INH 07/25/17 15:00 08/24/17 14:59 07/26/17 07:04 1.25 MG Prednisone (PredniSONE TAB) 60 mg QAM PO 07/26/17 08:00 08/25/17 07:59 07/26/17 08:50 60 MG Amiodarone HCl (Cordarone Tab) 400 mg TODAY@2014 ONCE PO 07/25/17 20:15 07/25/17 20:16 DC 07/25/17 20:10 400 MG Amiodarone HCl (Cordarone Tab) 400 mg BID PO 07/26/17 08:00 08/25/17 07:59 07/26/17 08:50 400 MG (Luna Leon, TERRIE) Objective Vital Signs Date Time Temp Pulse Resp B/P (MAP) Pulse Ox O2 Delivery O2 Flow Rate FiO2 07/26/17 11:12 36.3 92 22 112/68 (83) 93 Nasal Cannula 5.0 07/26/17 08:45 Nasal Cannula 5.0 07/26/17 07:49 36.6 82 20 107/63 (78) 95 5.0 07/26/17 07:04 84 20 94 Nasal Cannula 5.0 07/26/17 04:18 36.7 115 20 116/71 (86) 94 Nasal Cannula 5.0 07/26/17 01:47 93 45 07/26/17 00:00 93 Nasal Cannula 6.0 07/25/17 23:41 36.7 156 20 128/61 (83) 95 Nasal Cannula 5.0 07/25/17 19:11 36.8 146 20 105/64 (78) 95 Nasal Cannula 5.0 07/25/17 16:02 148 07/25/17 16:00 96 Nasal Cannula 6.0 45 07/25/17 15:24 36.6 74 20 103/70 (81) 96 5.0 (Luna Leon CRNP) Physical Exam Notes: General: no distress Eyes: normal inspection, PERLL Respiratory: chest non tender, diminished breath sounds bilaterally with coarse bases to auscultation, no respiratory distress, no accessory muscle use Cardiac: irregular rate and rhythm, no rub or gallop, no murmur, no edema, no jvd GI/: active bowel sounds, no abd pain or tenderness, soft, non distended Extremities: normal range of motion, normal strength, non tender Neuro/Psych: alert and oriented x 3, normal mood and affect Skin: normal color, dry (uLna Leon CRNP) Laboratory Results Last 24 Hours Test 07/26/17 06:41 White Blood Count 13.08 K/uL Red Blood Count 2.80 M/uL Hemoglobin 9.1 g/dL Hematocrit 30.0 % Mean Corpuscular Volume 107.1 fL Mean Corpuscular Hemoglobin 32.5 pg Mean Corpuscular Hemoglobin Concent 30.3 g/dl RDW Standard Deviation 61.6 fL RDW Coefficient of Variation 15.8 % Platelet Count 101 K/uL Mean Platelet Volume 9.2 fL Sodium Level 138 mmol/L Potassium Level 3.8 mmol/L Chloride Level 91 mmol/L Carbon Dioxide Level 42 mmol/L Anion Gap 5.0 mmol/L Blood Urea Nitrogen 18 mg/dl Creatinine 0.41 mg/dl Est Creatinine Clear Calc Drug Dose 178.4 ml/min Estimated GFR () 141.0 Estimated GFR (Non- 121.7 BUN/Creatinine Ratio 43.1 Random Glucose 125 mg/dl Calcium Level 9.2 mg/dl (Luna Leon .TERRIE) Assessment and Plan 67yo C male with metastatic non-small cell carcinoma of the lung, severe oxygen dependent COPD presenting with acute on chronic hypercarbic respiratory failure requiring rescue BiPAP. Hypercarbic respiratory failure/ End stage COPD - acute on chronic. VBG initially 7.24/124/61/52. Patient's mental status improved with bipap. Currently he is on his baseline O2 requirement is 4-5L via NC at rest, and BiPAP at night and with naps. Condition most likely represents normal disease progression, patient with multiple hospitalizations over the past few months. No evidence of infection - repeat VBG was 7.39, continue bipap as patient can tolerate -Target SaO2 of 88-92% -Palliative care consult - in the past patient has been very resistant to discussions about end of life however discussion with palliative last night patient decided he would like to go home with hospice - to organize -Will continue pain management with Fentanyl patches 112mcg q 72 hours and Morphine 10mg po q 2 hours PRN -Continue Zofran ODT PRN -Bowel regimen Miralax and Colace - restarted home po meds as taking po - continue to titrate steroids - currently on prednisone 60 mg -Continue DuoNebs q 4 hours scheduled -Albuterol q2 hours PRN -Continue home Symbicort -Continue home Budesonide PAF - EKG showed A.flutter with RVR 07/25- continue diltiazem and amiodarone - today patient's heart rate 90 - 100 though irregular - as patient declines it may become more difficult to control his heart rate. -Continue Lovenox 120mg daily Anemia - macrocytic, history of folate deficiency. stable. No active bleeding -Continue to monitor History of PEs - remote, stable. -Continue Lovenox as above BPH - stable. continue finasteride PPx - Lovenox at home dose Code - DNR-LT Dispo - home with hospice (Luna Leon CRNP) Attending Attestation - Pt seen/examined, chart reviewed, care plan d/w TERRIE Leon. I agree w/ the thurman components of her documentation. Pt was sleeping during my visit. Julita, his significant other, was present. Daughter also present. I offered support to Julita. She had questions about home hospice. vitals - HRs improved today o2 sats acceptable gen - NAD, sleeping heart - irregular, HR<100 lungs - course BS b/l abd - distended - no change ext - no edema A/P: 1. acute/chronic hypoxic/hypercarbic resp failure 2. progressive stage 4 lung ca 3. steroid-dependent end-stage COPD 4. a. fib/flutter w/ RVR - improved 5. severe deconditioning due to all of the above home with hospice preparations underway treat dyspnea, pain, etc in the meantime amiodarone/CCB for a. fib/flutter prednisone for COPD nebs, other supportive care Leslie GRIFFIN MD (Awais Griffin MD)
[2017-07-26] MEDS: VENLAFAXINE HCL XR 150 MG CAPXR PO SCH (20:17)
[2017-07-26] MEDS: TAMSULOSIN HCL 0.4 MG CAP PO SCH (20:19)
[2017-07-27] VITALS (12 sets, daily range): BP systolic 97–134; BP diastolic 56–76; PULSE 63–86; TEMP 36.4–36.8; O2SAT 88–100
[2017-07-27] MEDS: LEVALBUTEROL 1.25MG/3ML NEB INH SCH ×4 (02:12→19:13)
[2017-07-27] MEDS: BUDESONIDE/FORMOTEROL FUMARATE 160/4.5 60 PUFFS/INHALER INH SCH ×2 (08:08→21:28)
[2017-07-27] MEDS: ENOXAPARIN 120 MG/0.8 ML SYR SQ SCH (08:09)
[2017-07-27] MEDS: PANTOprazole SOD 40 MG TAB PO SCH (08:09)
[2017-07-27] MEDS: GUAIFENESIN 600 MG TABCR PO SCH ×2 (08:09→21:27)
[2017-07-27] MEDS: GABAPENTIN 600 MG TAB PO SCH ×3 (08:09→21:26)
[2017-07-27] MEDS: DOCUSATE SODIUM 100 MG CAP PO SCH ×2 (08:10→21:27)
[2017-07-27] MEDS: AMIODARONE 200 MG TAB PO SCH ×2 (08:10→21:27)
[2017-07-27] MEDS: DILTIAZEM HCL (TIAzac) 180 MG CAPCR PO SCH (08:11)
[2017-07-27] MEDS: FINASTERIDE 5 MG TAB PO SCH (08:11)
[2017-07-27] MEDS: MAGNESIUM OXIDE 400 MG TAB PO SCH ×2 (08:11→21:25)
[2017-07-27] MEDS: SENNA 8.6 MG TAB PO SCH (08:11)
[2017-07-27] MEDS: CHECK FENTANYL PATCH PLACEMENT SCH ×6 (08:12→23:08)
[2017-07-27] MEDS: MoRPHine SULFATE 10 MG/0.5 ML UDP PO PRN ×2 (08:16→14:20)
[2017-07-27] MEDS: BISACODYL 5 MG TABEC PO SCH (08:16)
[2017-07-27 08:42] LABS: HEMATOCRIT 30.6 % (42-52); HEMOGLOBIN 9.2 g/dL (14.0-18.0); MEAN CORPUSCULAR HEMOGLOBIN 32.2 pg (25-34); MEAN CORPUSCULAR HGB CONC 30.1 g/dl (32-36); MEAN PLATELET VOLUME 9.4 fL (7.4-10.4); PLATELET COUNT 117 K/uL (130-400); RED CELL DISTRIBUTION WIDTH CV 15.7 % (11.5-14.5); RED CELL DISTRIBUTION WIDTH SD 61.5 fL (36.4-46.3); WHITE BLOOD COUNT 13.14 K/uL (4.8-10.8)
[2017-07-27 09:10] LABS: CREATININE 0.4 mg/dl (0.60-1.40); POTASSIUM 4.5 mmol/L (3.5-5.1)
--- NOTE | 2017-07-27 10:12 | Hospitalist Progress Note ---
Hospitalist Progress Note Date of Service Jul 27, 2017. (Luna Leon CRNP) Subjective Pt evaluation today including: conversation w/ patient, physical exam, chart review, lab review, review of inpatient medication list Voiding: no voiding problems Mr. Hagan has no complaints today. He feels his breathing is about baseline sob, not much cough ROS Constitutional: no chills, aches, sweats or fever Respiratory: see HPI Cardiac: no chest pain, palpitations, edema, orthopnea or lightheadedness GI: no abdominal pain, nausea, vomiting, diarrhea or constipation : no dysuria or hesitancy Extremities: no joint pain or weakness Skin: no rash All other systems reviewed and negative (Luna Leon CRNP) Medications Medications Administered Medications (Trade) Dose Ordered Sig/Abbi Route Start Time Stop Time Status Last Admin Dose Admin Methylprednisolone Sodium Succinate (Solu-Medrol IV) 125 mg NOW STAT IV 07/22/17 09:42 07/22/17 09:45 DC 07/22/17 09:59 125 MG Albuterol/ Ipratropium (Duoneb) 3 ml STK-MED ONCE .ROUTE 07/22/17 09:58 07/22/17 09:59 DC 07/22/17 10:02 3 ML Albuterol/ Ipratropium (Duoneb) 9 ml STK-MED ONCE .ROUTE 07/22/17 10:02 07/22/17 10:03 DC 07/22/17 10:03 9 ML Budesonide/ Formoterol Fumarate (Symbicort 160/ 4.5 Inh) 2 puffs BID INH 07/22/17 20:00 08/21/17 20:59 07/27/17 08:08 2 PUFFS Enoxaparin Sodium (Lovenox Inj) 120 mg QAM SQ 07/23/17 08:00 08/22/17 08:59 07/27/17 08:09 120 MG Fentanyl (Duragesic Patch) 12 mcg Q3D@0800 TD 07/23/17 08:00 08/06/17 07:59 07/26/17 08:52 12 MCG Fentanyl (Duragesic Patch) 100 mcg Q3D@0800 TD 07/23/17 08:00 08/06/17 07:59 07/26/17 08:52 100 MCG Albuterol/ Ipratropium (Duoneb) 3 ml Q4R INH 07/22/17 16:00 07/25/17 13:59 DC 07/25/17 11:15 3 ML Morphine Sulfate (Roxanol Oral Soln) 10 mg Q2H PRN PO 07/22/17 15:15 08/05/17 15:14 07/27/17 08:16 10 MG Docusate Sodium (coLACE SYRUP) 100 mg BID PO 07/22/17 20:00 07/25/17 08:08 DC 07/24/17 21:31 100 MG Dextrose/Sodium Chloride 1,000 ml @ 15 mls/hr Q24H IV 07/22/17 14:57 07/23/17 16:44 DC 07/22/17 16:22 15 MLS/HR Prednisone (PredniSONE TAB) 10 mg DAILY PO 07/23/17 08:00 07/23/17 16:44 DC 07/23/17 08:21 10 MG Miscellaneous (Fentanyl Patch Remove & Waste) 1 ea Q3D@0759 N/A 07/23/17 07:59 08/22/17 07:58 07/26/17 09:00 1 EA Miscellaneous Information (Check Fentanyl Patch Placement) 1 ea QS N/A 07/22/17 16:00 08/21/17 15:59 07/27/17 08:12 1 EA Miscellaneous (Fentanyl Patch Remove & Waste) 1 ea Q3D@0759 N/A 07/23/17 07:59 08/22/17 07:58 07/26/17 09:01 1 EA Miscellaneous Information (Check Fentanyl Patch Placement) 1 ea QS N/A 07/22/17 16:00 08/21/17 15:59 07/27/17 08:12 1 EA Bisacodyl (Dulcolax Tab) 5 mg DAILY PO 07/24/17 08:00 08/23/17 07:59 07/27/17 08:16 5 MG Diltiazem HCl (TIAzac CAP) 120 mg DAILY PO 07/24/17 08:00 07/24/17 16:07 DC 07/24/17 08:31 120 MG Finasteride (Proscar Tab) 5 mg QAM PO 07/24/17 08:00 08/23/17 07:59 07/27/17 08:11 5 MG Folic Acid (Folvite Tab) 1 mg QPM PO 07/23/17 21:00 08/22/17 20:59 07/26/17 20:21 1 MG Gabapentin (Neurontin Tab) 600 mg TID PO 07/23/17 20:00 08/22/17 19:59 07/27/17 08:09 600 MG Guaifenesin (Mucinex Contr Rel Tab) 1,200 mg Q12 PO 07/23/17 21:00 08/22/17 20:59 07/27/17 08:09 1,200 MG Magnesium Oxide (Mag-Ox Tab) 400 mg BID PO 07/23/17 20:00 08/22/17 19:59 07/27/17 08:11 400 MG Pantoprazole Sodium (Protonix Tab) 40 mg DAILY PO 07/24/17 08:00 08/23/17 07:59 07/27/17 08:09 40 MG Senna (Senokot Tab) 17.2 mg QAM PO 07/24/17 08:00 08/23/17 07:59 07/27/17 08:11 17.2 MG Tamsulosin HCl (Flomax Cap) 0.4 mg HS PO 07/23/17 21:00 08/22/17 20:59 07/26/17 20:19 0.4 MG Venlafaxine HCl (effeXOR EXTENDED REL CAP) 150 mg QPM PO 07/23/17 21:00 08/22/17 20:59 07/26/17 20:17 150 MG Methylprednisolone Sodium Succinate 125 mg/Syringe 2 ml @ 1.5 mls/min NOW ONCE IV 07/23/17 17:00 07/23/17 17:01 DC 07/23/17 17:22 1.5 MLS/MIN Methylprednisolone Sodium Succinate 60 mg/Syringe 0.96 ml @ 1.5 mls/min Q8H IV 07/24/17 01:00 07/24/17 16:07 DC 07/24/17 08:32 1.5 MLS/MIN Diltiazem HCl (Cardizem Tab) 30 mg NOW ONCE PO 07/23/17 18:15 07/23/17 18:16 DC 07/23/17 19:06 30 MG Methylprednisolone Sodium Succinate 60 mg/Syringe 0.96 ml @ 1.5 mls/min Q12H IV 07/24/17 21:00 07/25/17 19:24 DC 07/25/17 07:52 1.5 MLS/MIN Diltiazem HCl (TIAzac CAP) 180 mg DAILY PO 07/25/17 08:00 08/23/17 07:59 07/27/17 08:11 180 MG Diltiazem HCl (Cardizem Tab) 30 mg NOW ONCE PO 07/24/17 16:15 07/24/17 16:25 DC 07/24/17 17:35 30 MG Diltiazem HCl (Cardizem Tab) 30 mg 2200 ONCE PO 07/24/17 22:00 07/24/17 22:01 DC 07/24/17 22:13 30 MG Docusate Sodium (coLACE CAP) 100 mg BID PO 07/25/17 08:00 08/24/17 07:59 07/27/17 08:10 100 MG Digoxin 250 mcg/ Syringe 10 ml @ 2 mls/min Q6H IV 07/25/17 14:00 Future Hold 07/25/17 16:02 2 MLS/MIN Levalbuterol (Xopenex 1.25MG/ 3ML Neb) 1.25 mg Q6R INH 07/25/17 15:00 08/24/17 14:59 07/27/17 07:12 1.25 MG Prednisone (PredniSONE TAB) 60 mg QAM PO 07/26/17 08:00 08/25/17 07:59 07/27/17 08:10 60 MG Amiodarone HCl (Cordarone Tab) 400 mg TODAY@2014 ONCE PO 07/25/17 20:15 07/25/17 20:16 DC 07/25/17 20:10 400 MG Amiodarone HCl (Cordarone Tab) 400 mg BID PO 07/26/17 08:00 08/25/17 07:59 07/27/17 08:10 400 MG (Luna Leon, TERRIE) Objective Vital Signs Date Time Temp Pulse Resp B/P (MAP) Pulse Ox O2 Delivery O2 Flow Rate FiO2 07/27/17 07:30 36.4 75 18 113/61 (78) 99 BiPAP 07/27/17 07:12 74 20 98 BiPAP/CPAP 07/27/17 04:03 36.6 85 20 129/68 (88) 96 BiPAP 07/27/17 02:14 63 100 45 07/27/17 02:13 63 15 100 BiPAP/CPAP 07/27/17 00:57 69 92 45 07/27/17 00:00 Nasal Cannula 5.0 07/26/17 23:13 36.5 77 20 115/68 (84) 94 Nasal Cannula 5.0 07/26/17 19:42 36.7 89 18 110/56 (74) 92 Nasal Cannula 5.0 07/26/17 19:14 95 20 92 Nasal Cannula 5.0 07/26/17 16:00 Nasal Cannula 5.0 07/26/17 15:45 36.4 107 23 124/73 (90) 90 5.0 07/26/17 14:06 100 20 96 Nasal Cannula 5.0 07/26/17 11:12 36.3 92 22 112/68 (83) 93 Nasal Cannula 5.0 (Luna Leon CRNP) Physical Exam Notes: General: no distress Eyes: normal inspection, PERLL Respiratory: chest non tender, scattered crackles, coarse bases bilaterally to auscultation, no respiratory distress, no accessory muscle use Cardiac: irregular rate and rhythm, no rub or gallop, no murmur, no edema, no jvd GI/: active bowel sounds, no abd pain or tenderness, soft, non distended Extremities: normal range of motion, normal strength, non tender Neuro/Psych: alert and oriented x 3, normal mood and affect Skin: normal color, dry (Luna Leon CRNP) Laboratory Results Last 24 Hours Test 07/27/17 08:11 White Blood Count 13.14 K/uL Red Blood Count 2.86 M/uL Hemoglobin 9.2 g/dL Hematocrit 30.6 % Mean Corpuscular Volume 107.0 fL Mean Corpuscular Hemoglobin 32.2 pg Mean Corpuscular Hemoglobin Concent 30.1 g/dl RDW Standard Deviation 61.5 fL RDW Coefficient of Variation 15.7 % Platelet Count 117 K/uL Mean Platelet Volume 9.4 fL Sodium Level 137 mmol/L Potassium Level 4.5 mmol/L Chloride Level 90 mmol/L Carbon Dioxide Level 47 mmol/L Anion Gap 0.0 mmol/L Blood Urea Nitrogen 20 mg/dl Creatinine 0.40 mg/dl Est Creatinine Clear Calc Drug Dose 182.9 ml/min Estimated GFR () 142.5 Estimated GFR (Non- 122.9 BUN/Creatinine Ratio 50.3 Random Glucose 92 mg/dl Calcium Level 9.0 mg/dl (Luna Leon .TERRIE) Assessment and Plan 67yo C male with metastatic non-small cell carcinoma of the lung, severe oxygen dependent COPD presenting with acute on chronic hypercarbic respiratory failure requiring rescue BiPAP. Hypercarbic respiratory failure/ End stage COPD - acute on chronic. VBG initially 7.24/124/61/52. Patient's mental status improved with bipap. Currently he is on his baseline O2 requirement is 4-5L via NC at rest, and BiPAP at night and with naps. Condition most likely represents normal disease progression, patient with multiple hospitalizations over the past few months. No evidence of infection - repeat VBG was 7.39, continue bipap as patient can tolerate -Target SaO2 of 88-92% -Palliative care consult -Will continue pain management with Fentanyl patches 112mcg q 72 hours and Morphine 10mg po q 2 hours PRN -Continue Zofran ODT PRN -Bowel regimen Miralax and Colace - continue to titrate steroids - currently on prednisone 60 mg -Continue DuoNebs q 4 hours scheduled -Albuterol q2 hours PRN -Continue home Symbicort -Continue home Budesonide PAF - EKG showed A.flutter with RVR 07/25- continue diltiazem and amiodarone - today patient's heart rate 80s though irregular -Continue Lovenox 120mg daily Anemia - macrocytic, history of folate deficiency. stable. No active bleeding -Continue to monitor History of PEs - remote, stable. -Continue Lovenox as above BPH - stable. continue finasteride PPx - Lovenox at home dose Code - DNR-LT Dispo - home with hospice through the [place] (Luna Leon .TERRIE) Attending Attestation - Pt seen/examined, chart reviewed, care plan d/w TERRIE Leon. I agree w/ the thurman components of her documentation. Pt sitting in chair; in good spirits today. Offered no complaints. No bowel movement in multiple days however. Family at bedside. vitals - HRs <100 o2 sats acceptable gen - NAD; good spirits heart - irregular, HR<100 lungs - course BS b/l, rales b/l; mild wheeze b/l abd - distended but NT ext - no edema A/P: 1. acute/chronic hypoxic/hypercarbic resp failure - acute component resolved. 2. progressive stage 4 lung ca. 3. steroid-dependent end-stage COPD, currently on steroid burst. 4. a. fib/flutter w/ RVR - improved w/ amiodarone. 5. severe deconditioning due to all of the above 6. thrush - nystatin solution QID. 7. constipation 2nd to narcotics - dulcolax tab x 1; cont senna. home with hospice - preparations underway contact [place] tomorrow social work assistance appreciated Leslie GRIFFIN MD (Awais Griffin MD)
[2017-07-27] MEDS ORDERED: BISACODYL 5 MG TABEC PO ONE (17:00)
[2017-07-27] MEDS: VENLAFAXINE HCL XR 150 MG CAPXR PO SCH (21:28)
[2017-07-27] MEDS: NYSTATIN SUSP 500,000 U/5 ML UDC PO SCH (21:29)
[2017-07-27] MEDS: TAMSULOSIN HCL 0.4 MG CAP PO SCH (21:57)
[2017-07-28] VITALS (11 sets, daily range): BP systolic 110–125; BP diastolic 62–81; PULSE 74–90; TEMP 36.3–36.8; O2SAT 91–100
[2017-07-28] MEDS: LEVALBUTEROL 1.25MG/3ML NEB INH SCH ×4 (01:55→20:14)
[2017-07-28] MEDS: NYSTATIN SUSP 500,000 U/5 ML UDC PO SCH ×4 (06:30→20:01)
[2017-07-28] MEDS: DOCUSATE SODIUM 100 MG CAP PO SCH ×2 (08:10→20:04)
[2017-07-28] MEDS: GABAPENTIN 600 MG TAB PO SCH ×3 (08:10→20:02)
[2017-07-28] MEDS: SENNA 8.6 MG TAB PO SCH (08:10)
[2017-07-28] MEDS: DILTIAZEM HCL (TIAzac) 180 MG CAPCR PO SCH (08:10)
[2017-07-28] MEDS: FINASTERIDE 5 MG TAB PO SCH (08:10)
[2017-07-28] MEDS: GUAIFENESIN 600 MG TABCR PO SCH ×2 (08:10→20:02)
[2017-07-28] MEDS: MAGNESIUM OXIDE 400 MG TAB PO SCH ×2 (08:10→20:04)
[2017-07-28] MEDS: PANTOprazole SOD 40 MG TAB PO SCH (08:11)
[2017-07-28] MEDS: BUDESONIDE/FORMOTEROL FUMARATE 160/4.5 60 PUFFS/INHALER INH SCH ×2 (08:11→20:04)
[2017-07-28] MEDS: AMIODARONE 200 MG TAB PO SCH ×2 (08:11→20:02)
[2017-07-28] MEDS: CHECK FENTANYL PATCH PLACEMENT SCH ×4 (08:11→15:18)
[2017-07-28] MEDS: ENOXAPARIN 120 MG/0.8 ML SYR SQ SCH (08:12)
[2017-07-28] MEDS: MoRPHine SULFATE 10 MG/0.5 ML UDP PO PRN ×2 (08:16→10:19)
[2017-07-28] MEDS: BISACODYL 5 MG TABEC PO SCH (08:16)
--- NOTE | 2017-07-28 18:07 | Hospitalist Progress Note ---
Hospitalist Progress Note Date of Service Jul 28, 2017. (Luna Leon .TERRIE) Subjective Pt evaluation today including: conversation w/ patient, physical exam, chart review, lab review, review of inpatient medication list Mr. Hagan feels at his baseline. He does have concerns that his family is making decisions without him. We discussed with his family at bedside and assured him that he has the final say in his care and can refuse any intervention if he is not comfortable with it. ROS Constitutional: no chills, aches, sweats or fever Respiratory: no sob,cough, sputum, or wheezing Cardiac: no chest pain, palpitations, edema, orthopnea or lightheadedness GI: no abdominal pain, nausea, vomiting, diarrhea or constipation : no dysuria or hesitancy Extremities: no joint pain or weakness Skin: no rash All other systems reviewed and negative (Luna Leon .TERRIE) Medications Medications Administered Medications (Trade) Dose Ordered Sig/Abbi Route Start Time Stop Time Status Last Admin Dose Admin Methylprednisolone Sodium Succinate (Solu-Medrol IV) 125 mg NOW STAT IV 07/22/17 09:42 07/22/17 09:45 DC 07/22/17 09:59 125 MG Albuterol/ Ipratropium (Duoneb) 3 ml STK-MED ONCE .ROUTE 07/22/17 09:58 07/22/17 09:59 DC 07/22/17 10:02 3 ML Albuterol/ Ipratropium (Duoneb) 9 ml STK-MED ONCE .ROUTE 07/22/17 10:02 07/22/17 10:03 DC 07/22/17 10:03 9 ML Budesonide/ Formoterol Fumarate (Symbicort 160/ 4.5 Inh) 2 puffs BID INH 07/22/17 20:00 08/21/17 20:59 07/28/17 08:11 2 PUFFS Enoxaparin Sodium (Lovenox Inj) 120 mg QAM SQ 07/23/17 08:00 08/22/17 08:59 07/28/17 08:12 120 MG Fentanyl (Duragesic Patch) 12 mcg Q3D@0800 TD 07/23/17 08:00 08/06/17 07:59 07/26/17 08:52 12 MCG Fentanyl (Duragesic Patch) 100 mcg Q3D@0800 TD 07/23/17 08:00 08/06/17 07:59 07/26/17 08:52 100 MCG Albuterol/ Ipratropium (Duoneb) 3 ml Q4R INH 07/22/17 16:00 07/25/17 13:59 DC 07/25/17 11:15 3 ML Morphine Sulfate (Roxanol Oral Soln) 10 mg Q2H PRN PO 07/22/17 15:15 08/05/17 15:14 07/28/17 10:19 10 MG Docusate Sodium (coLACE SYRUP) 100 mg BID PO 07/22/17 20:00 07/25/17 08:08 DC 07/24/17 21:31 100 MG Dextrose/Sodium Chloride 1,000 ml @ 15 mls/hr Q24H IV 07/22/17 14:57 07/23/17 16:44 DC 07/22/17 16:22 15 MLS/HR Prednisone (PredniSONE TAB) 10 mg DAILY PO 07/23/17 08:00 07/23/17 16:44 DC 07/23/17 08:21 10 MG Miscellaneous (Fentanyl Patch Remove & Waste) 1 ea Q3D@0759 N/A 07/23/17 07:59 08/22/17 07:58 07/26/17 09:00 1 EA Miscellaneous Information (Check Fentanyl Patch Placement) 1 ea QS N/A 07/22/17 16:00 08/21/17 15:59 07/28/17 15:17 1 EA Miscellaneous (Fentanyl Patch Remove & Waste) 1 ea Q3D@0759 N/A 07/23/17 07:59 08/22/17 07:58 07/26/17 09:01 1 EA Miscellaneous Information (Check Fentanyl Patch Placement) 1 ea QS N/A 07/22/17 16:00 08/21/17 15:59 07/28/17 15:18 1 EA Bisacodyl (Dulcolax Tab) 5 mg DAILY PO 07/24/17 08:00 08/23/17 07:59 07/28/17 08:16 5 MG Diltiazem HCl (TIAzac CAP) 120 mg DAILY PO 07/24/17 08:00 07/24/17 16:07 DC 07/24/17 08:31 120 MG Finasteride (Proscar Tab) 5 mg QAM PO 07/24/17 08:00 08/23/17 07:59 07/28/17 08:10 5 MG Folic Acid (Folvite Tab) 1 mg QPM PO 07/23/17 21:00 08/22/17 20:59 07/27/17 21:26 1 MG Gabapentin (Neurontin Tab) 600 mg TID PO 07/23/17 20:00 08/22/17 19:59 07/28/17 15:17 600 MG Guaifenesin (Mucinex Contr Rel Tab) 1,200 mg Q12 PO 07/23/17 21:00 08/22/17 20:59 07/28/17 08:10 1,200 MG Magnesium Oxide (Mag-Ox Tab) 400 mg BID PO 07/23/17 20:00 08/22/17 19:59 07/28/17 08:10 400 MG Pantoprazole Sodium (Protonix Tab) 40 mg DAILY PO 07/24/17 08:00 08/23/17 07:59 07/28/17 08:11 40 MG Senna (Senokot Tab) 17.2 mg QAM PO 07/24/17 08:00 08/23/17 07:59 07/28/17 08:10 17.2 MG Tamsulosin HCl (Flomax Cap) 0.4 mg HS PO 07/23/17 21:00 08/22/17 20:59 07/27/17 21:57 0.4 MG Venlafaxine HCl (effeXOR EXTENDED REL CAP) 150 mg QPM PO 07/23/17 21:00 08/22/17 20:59 07/27/17 21:28 150 MG Methylprednisolone Sodium Succinate 125 mg/Syringe 2 ml @ 1.5 mls/min NOW ONCE IV 07/23/17 17:00 07/23/17 17:01 DC 07/23/17 17:22 1.5 MLS/MIN Methylprednisolone Sodium Succinate 60 mg/Syringe 0.96 ml @ 1.5 mls/min Q8H IV 07/24/17 01:00 07/24/17 16:07 DC 07/24/17 08:32 1.5 MLS/MIN Diltiazem HCl (Cardizem Tab) 30 mg NOW ONCE PO 07/23/17 18:15 07/23/17 18:16 DC 07/23/17 19:06 30 MG Methylprednisolone Sodium Succinate 60 mg/Syringe 0.96 ml @ 1.5 mls/min Q12H IV 07/24/17 21:00 07/25/17 19:24 DC 07/25/17 07:52 1.5 MLS/MIN Diltiazem HCl (TIAzac CAP) 180 mg DAILY PO 07/25/17 08:00 08/23/17 07:59 07/28/17 08:10 180 MG Diltiazem HCl (Cardizem Tab) 30 mg NOW ONCE PO 07/24/17 16:15 07/24/17 16:25 DC 07/24/17 17:35 30 MG Diltiazem HCl (Cardizem Tab) 30 mg 2200 ONCE PO 07/24/17 22:00 07/24/17 22:01 DC 07/24/17 22:13 30 MG Docusate Sodium (coLACE CAP) 100 mg BID PO 07/25/17 08:00 08/24/17 07:59 07/28/17 08:10 100 MG Digoxin 250 mcg/ Syringe 10 ml @ 2 mls/min Q6H IV 07/25/17 14:00 Future Hold 07/25/17 16:02 2 MLS/MIN Levalbuterol (Xopenex 1.25MG/ 3ML Neb) 1.25 mg Q6R INH 07/25/17 15:00 08/24/17 14:59 07/28/17 14:10 1.25 MG Prednisone (PredniSONE TAB) 60 mg QAM PO 07/26/17 08:00 08/25/17 07:59 07/28/17 08:11 60 MG Amiodarone HCl (Cordarone Tab) 400 mg TODAY@2014 ONCE PO 07/25/17 20:15 07/25/17 20:16 DC 07/25/17 20:10 400 MG Amiodarone HCl (Cordarone Tab) 400 mg BID PO 07/26/17 08:00 08/25/17 07:59 07/28/17 08:11 400 MG Bisacodyl (Dulcolax Tab) 5 mg NOW ONCE PO 07/27/17 17:00 07/27/17 17:01 DC 07/27/17 17:17 5 MG Nystatin (Mycostatin Susp) 5 ml ACHS PO 07/27/17 21:00 08/06/17 20:59 07/28/17 16:42 5 ML (Luna Leon CRNP) Objective Vital Signs Date Time Temp Pulse Resp B/P (MAP) Pulse Ox O2 Delivery O2 Flow Rate FiO2 07/28/17 17:05 Nasal Cannula 5.0 07/28/17 14:40 36.7 85 20 111/81 (91) 95 Nasal Cannula 5.0 07/28/17 14:10 82 16 98 Nasal Cannula 5.0 07/28/17 11:08 36.3 88 22 110/63 (79) 91 Nasal Cannula 5.0 07/28/17 10:00 Nasal Cannula 5.0 07/28/17 07:14 36.4 90 20 115/65 (82) 93 BiPAP 45 07/28/17 07:04 90 17 93 BiPAP/CPAP 45 07/28/17 01:55 77 14 98 BiPAP/CPAP 45 07/28/17 01:52 77 98 45 07/28/17 00:00 Nasal Cannula 5.0 07/27/17 23:15 36.8 74 18 129/76 (93) 99 Nasal Cannula 5.0 07/27/17 19:29 36.6 78 20 134/57 (82) 96 5.0 07/27/17 19:14 85 20 97 Nasal Cannula 5.0 (Luna Leon CRNP) Physical Exam Notes: General: no distress Eyes: normal inspection, PERLL Respiratory: chest non tender, diminished breath sounds, coarse bases, no respiratory distress, no accessory muscle use Cardiac: regular rate and rhythm, no rub or gallop, no murmur, no edema, no jvd GI/: active bowel sounds, no abd pain or tenderness, soft, non distended Extremities: normal range of motion, normal strength, non tender Neuro/Psych: alert and oriented x 3, normal mood and affect Skin: normal color, dry (Luna Leon CRNP) Laboratory Results Last 24 Hours Test 07/28/17 11:59 Heparin Anti-Xa Act, Low Molec Wt 0.87 IU/ML (Luna Leon CRNP) Assessment and Plan 67yo C male with metastatic non-small cell carcinoma of the lung, severe oxygen dependent COPD presenting with acute on chronic hypercarbic respiratory failure requiring rescue BiPAP. Hypercarbic respiratory failure/ End stage COPD - acute on chronic. VBG initially 7.24/124/61/52. Patient's mental status improved with bipap. Currently he is on his baseline O2 requirement is 4-5L via NC at rest, and BiPAP at night and with naps. Condition most likely represents normal disease progression, patient with multiple hospitalizations over the past few months. No evidence of infection - repeat VBG was 7.39, continue bipap as patient can tolerate -Target SaO2 of 88-92% -Palliative care consult -Will continue pain management with Fentanyl patches 112mcg q 72 hours and Morphine 10mg po q 2 hours PRN -Continue Zofran ODT PRN -Bowel regimen Miralax and Colace - continue to titrate steroids - decreased prednisone to 40 mg po -Continue DuoNebs q 4 hours scheduled -Albuterol q2 hours PRN -Continue home Symbicort -Continue home Budesonide PAF - EKG showed A.flutter with RVR 07/25- continue diltiazem and amiodarone - today patient's heart rate controlled -Continue Lovenox 120mg daily Anemia - macrocytic, history of folate deficiency. stable. No active bleeding -Continue to monitor History of PEs - remote, stable. -Continue Lovenox as above BPH - stable. continue finasteride PPx - Lovenox at home dose Code - DNR-LT Dispo - home with hospice through the [place] (Luna Leon ., TERRIE) Attending Attestation - Pt seen/examined, chart reviewed, care plan d/w TERRIE Leon. I agree w/ the thurman components of her documentation. Pt about to eat dinner during my visit. Offered no complaints. He seemed slightly confused. He stated he was going home on Friday. vitals - HRs <100 o2 sats acceptable gen - NAD; good spirits; seemed slightly confused today; myoclonic jerks noted vs mild tremors heart - irregular, HR<100 lungs - course BS b/l w/ rales/wheezes - no change abd - distended but NT ext - no edema A/P: 1. acute/chronic hypoxic/hypercarbic resp failure 2. progressive stage 4 lung ca. 3. steroid-dependent end-stage COPD, currently on steroid burst but tapering such. 4. a. fib/flutter w/ RVR - improved w/ amiodarone. 5. severe deconditioning due to all of the above 6. thrush - nystatin solution QID. 7. constipation 2nd to narcotics - ongoing, but patient not bothered by it 8. modest confusion - easily could be slowly rising CO2 levels vs other process - would not investigate home with hospice - preparations underway keep comfortable no further blood draws Leslie GRIFFIN MD (Awais Griffin MD)
[2017-07-28] MEDS: VENLAFAXINE HCL XR 150 MG CAPXR PO SCH (20:03)
[2017-07-28] MEDS: TAMSULOSIN HCL 0.4 MG CAP PO SCH (20:03)
[2017-07-29] VITALS (13 sets, daily range): BP systolic 114–126; BP diastolic 41–64; PULSE 62–94; TEMP 36.5–36.9; O2SAT 88–100
[2017-07-29] MEDS: CHECK FENTANYL PATCH PLACEMENT SCH ×8 (00:02→23:58)
[2017-07-29] MEDS: LEVALBUTEROL 1.25MG/3ML NEB INH SCH ×4 (02:32→19:09)
[2017-07-29] MEDS: NYSTATIN SUSP 500,000 U/5 ML UDC PO SCH ×4 (05:50→21:00)
[2017-07-29] MEDS: DOCUSATE SODIUM 100 MG CAP PO SCH ×2 (07:51→20:00)
[2017-07-29] MEDS: BUDESONIDE/FORMOTEROL FUMARATE 160/4.5 60 PUFFS/INHALER INH SCH ×2 (07:51→21:05)
[2017-07-29] MEDS: PANTOprazole SOD 40 MG TAB PO SCH (07:51)
[2017-07-29] MEDS: GABAPENTIN 600 MG TAB PO SCH ×3 (07:51→20:00)
[2017-07-29] MEDS: SENNA 8.6 MG TAB PO SCH (07:51)
[2017-07-29] MEDS: GUAIFENESIN 600 MG TABCR PO SCH ×2 (07:51→21:00)
[2017-07-29] MEDS: AMIODARONE 200 MG TAB PO SCH ×2 (07:52→21:07)
[2017-07-29] MEDS: ENOXAPARIN 120 MG/0.8 ML SYR SQ SCH (07:52)
[2017-07-29] MEDS: DILTIAZEM HCL (TIAzac) 180 MG CAPCR PO SCH (07:52)
[2017-07-29] MEDS: FINASTERIDE 5 MG TAB PO SCH (07:52)
[2017-07-29] MEDS: MAGNESIUM OXIDE 400 MG TAB PO SCH ×2 (07:53→20:00)
[2017-07-29] MEDS: BISACODYL 5 MG TABEC PO SCH (07:57)
[2017-07-29] MEDS: FENTANYL 12 MCG/HR TDSY TD SCH (07:58)
[2017-07-29] MEDS: FENTANYL 100 MCG/HR TDSY TD SCH (07:58)
[2017-07-29] MEDS: FENTANYL PATCH REMOVE & WASTE SCH ×2 (08:13)
--- NOTE | 2017-07-29 17:10 | Hospitalist Progress Note ---
Hospitalist Progress Note Date of Service Jul 29, 2017. (Luna Leon CRNP) Subjective Pt evaluation today including: conversation w/ patient, physical exam, chart review, lab review, review of inpatient medication list Voiding: no voiding problems Patient has no complaints. He is on his baseline O2 ROS Constitutional: no chills, aches, sweats or fever Respiratory: no sob,cough, sputum, or wheezing Cardiac: no chest pain, palpitations, edema, orthopnea or lightheadedness GI: no abdominal pain, nausea, vomiting, diarrhea or constipation : no dysuria or hesitancy Extremities: no joint pain or weakness Skin: no rash All other systems reviewed and negative (Luna Leon CRNP) Medications Medications Administered Medications (Trade) Dose Ordered Sig/Abbi Route Start Time Stop Time Status Last Admin Dose Admin Methylprednisolone Sodium Succinate (Solu-Medrol IV) 125 mg NOW STAT IV 07/22/17 09:42 07/22/17 09:45 DC 07/22/17 09:59 125 MG Albuterol/ Ipratropium (Duoneb) 3 ml STK-MED ONCE .ROUTE 07/22/17 09:58 07/22/17 09:59 DC 07/22/17 10:02 3 ML Albuterol/ Ipratropium (Duoneb) 9 ml STK-MED ONCE .ROUTE 07/22/17 10:02 07/22/17 10:03 DC 07/22/17 10:03 9 ML Budesonide/ Formoterol Fumarate (Symbicort 160/ 4.5 Inh) 2 puffs BID INH 07/22/17 20:00 08/21/17 20:59 07/29/17 07:51 2 PUFFS Enoxaparin Sodium (Lovenox Inj) 120 mg QAM SQ 07/23/17 08:00 08/22/17 08:59 07/29/17 07:52 120 MG Fentanyl (Duragesic Patch) 12 mcg Q3D@0800 TD 07/23/17 08:00 08/06/17 07:59 07/29/17 07:58 12 MCG Fentanyl (Duragesic Patch) 100 mcg Q3D@0800 TD 07/23/17 08:00 08/06/17 07:59 07/29/17 07:58 100 MCG Albuterol/ Ipratropium (Duoneb) 3 ml Q4R INH 07/22/17 16:00 07/25/17 13:59 DC 07/25/17 11:15 3 ML Morphine Sulfate (Roxanol Oral Soln) 10 mg Q2H PRN PO 07/22/17 15:15 08/05/17 15:14 07/28/17 10:19 10 MG Polyethylene (Miralax Powder Packet) 17 gm DAILY PRN PO 07/22/17 11:45 08/21/17 11:44 07/28/17 20:50 17 GM Docusate Sodium (coLACE SYRUP) 100 mg BID PO 07/22/17 20:00 07/25/17 08:08 DC 07/24/17 21:31 100 MG Dextrose/Sodium Chloride 1,000 ml @ 15 mls/hr Q24H IV 07/22/17 14:57 07/23/17 16:44 DC 07/22/17 16:22 15 MLS/HR Prednisone (PredniSONE TAB) 10 mg DAILY PO 07/23/17 08:00 07/23/17 16:44 DC 07/23/17 08:21 10 MG Miscellaneous (Fentanyl Patch Remove & Waste) 1 ea Q3D@0759 N/A 07/23/17 07:59 08/22/17 07:58 07/29/17 08:13 1 EA Miscellaneous Information (Check Fentanyl Patch Placement) 1 ea QS N/A 07/22/17 16:00 08/21/17 15:59 07/29/17 15:20 1 EA Miscellaneous (Fentanyl Patch Remove & Waste) 1 ea Q3D@0759 N/A 07/23/17 07:59 08/22/17 07:58 07/29/17 08:13 1 EA Miscellaneous Information (Check Fentanyl Patch Placement) 1 ea QS N/A 07/22/17 16:00 08/21/17 15:59 07/29/17 15:20 1 EA Bisacodyl (Dulcolax Tab) 5 mg DAILY PO 07/24/17 08:00 08/23/17 07:59 07/29/17 07:57 5 MG Diltiazem HCl (TIAzac CAP) 120 mg DAILY PO 07/24/17 08:00 07/24/17 16:07 DC 07/24/17 08:31 120 MG Finasteride (Proscar Tab) 5 mg QAM PO 07/24/17 08:00 08/23/17 07:59 07/29/17 07:52 5 MG Folic Acid (Folvite Tab) 1 mg QPM PO 07/23/17 21:00 08/22/17 20:59 07/28/17 20:03 1 MG Gabapentin (Neurontin Tab) 600 mg TID PO 07/23/17 20:00 08/22/17 19:59 07/29/17 12:48 600 MG Guaifenesin (Mucinex Contr Rel Tab) 1,200 mg Q12 PO 07/23/17 21:00 08/22/17 20:59 07/29/17 07:51 1,200 MG Magnesium Oxide (Mag-Ox Tab) 400 mg BID PO 07/23/17 20:00 08/22/17 19:59 07/29/17 07:53 400 MG Pantoprazole Sodium (Protonix Tab) 40 mg DAILY PO 07/24/17 08:00 08/23/17 07:59 07/29/17 07:51 40 MG Senna (Senokot Tab) 17.2 mg QAM PO 07/24/17 08:00 08/23/17 07:59 07/29/17 07:51 17.2 MG Tamsulosin HCl (Flomax Cap) 0.4 mg HS PO 07/23/17 21:00 08/22/17 20:59 07/28/17 20:03 0.4 MG Venlafaxine HCl (effeXOR EXTENDED REL CAP) 150 mg QPM PO 07/23/17 21:00 08/22/17 20:59 07/28/17 20:03 150 MG Methylprednisolone Sodium Succinate 125 mg/Syringe 2 ml @ 1.5 mls/min NOW ONCE IV 07/23/17 17:00 07/23/17 17:01 DC 07/23/17 17:22 1.5 MLS/MIN Methylprednisolone Sodium Succinate 60 mg/Syringe 0.96 ml @ 1.5 mls/min Q8H IV 07/24/17 01:00 07/24/17 16:07 DC 07/24/17 08:32 1.5 MLS/MIN Diltiazem HCl (Cardizem Tab) 30 mg NOW ONCE PO 07/23/17 18:15 3/21/18 18:16 DC 07/23/17 19:06 30 MG Methylprednisolone Sodium Succinate 60 mg/Syringe 0.96 ml @ 1.5 mls/min Q12H IV 07/24/17 21:00 07/25/17 19:24 DC 07/25/17 07:52 1.5 MLS/MIN Diltiazem HCl (TIAzac CAP) 180 mg DAILY PO 07/25/17 08:00 08/23/17 07:59 07/29/17 07:52 180 MG Diltiazem HCl (Cardizem Tab) 30 mg NOW ONCE PO 07/24/17 16:15 07/24/17 16:25 DC 07/24/17 17:35 30 MG Diltiazem HCl (Cardizem Tab) 30 mg 2200 ONCE PO 07/24/17 22:00 07/24/17 22:01 DC 07/24/17 22:13 30 MG Docusate Sodium (coLACE CAP) 100 mg BID PO 07/25/17 08:00 08/24/17 07:59 07/29/17 07:51 100 MG Digoxin 250 mcg/ Syringe 10 ml @ 2 mls/min Q6H IV 07/25/17 14:00 Future Hold 07/25/17 16:02 2 MLS/MIN Levalbuterol (Xopenex 1.25MG/ 3ML Neb) 1.25 mg Q6R INH 07/25/17 15:00 08/24/17 14:59 07/29/17 14:54 1.25 MG Prednisone (PredniSONE TAB) 60 mg QAM PO 07/26/17 08:00 07/28/17 18:07 DC 07/28/17 08:11 60 MG Amiodarone HCl (Cordarone Tab) 400 mg TODAY@2014 ONCE PO 07/25/17 20:15 07/25/17 20:16 DC 07/25/17 20:10 400 MG Amiodarone HCl (Cordarone Tab) 400 mg BID PO 07/26/17 08:00 08/25/17 07:59 07/29/17 07:52 400 MG Bisacodyl (Dulcolax Tab) 5 mg NOW ONCE PO 07/27/17 17:00 07/27/17 17:01 DC 07/27/17 17:17 5 MG Nystatin (Mycostatin Susp) 5 ml ACHS PO 07/27/17 21:00 08/06/17 20:59 07/29/17 12:48 5 ML Prednisone (PredniSONE TAB) 40 mg QAM PO 07/29/17 08:00 08/25/17 07:59 07/29/17 07:51 40 MG (Luna Leon, TERRIE) Objective Vital Signs Date Time Temp Pulse Resp B/P (MAP) Pulse Ox O2 Delivery O2 Flow Rate FiO2 07/29/17 16:00 100 Nasal Cannula 5.0 45 07/29/17 15:04 36.5 85 20 120/46 (70) 100 Nasal Cannula 5.0 07/29/17 14:20 72 14 98 Mask 5.0 07/29/17 11:26 36.7 80 19 116/61 (79) 97 Nasal Cannula 5.0 07/29/17 10:03 Nasal Cannula 5.0 07/29/17 07:46 36.9 73 20 114/52 (72) 100 Nasal Cannula 5.0 07/29/17 07:22 80 14 98 Mask 8.0 07/29/17 04:17 36.5 94 20 126/62 (83) 94 BiPAP 07/29/17 02:34 76 97 45 07/29/17 02:34 76 14 97 BiPAP/CPAP 45 07/29/17 01:19 92 Mask 8.0 45 07/29/17 00:18 36.8 71 20 122/64 (83) 98 Mask 6.0 07/28/17 20:35 36.8 77 16 125/62 (83) 99 Nasal Cannula 9.0 07/28/17 20:30 92 Mask 8.0 45 07/28/17 20:16 74 16 95 Mask 8.0 (Luna Leon, D[employer]) Physical Exam Notes: General: no distress Eyes: normal inspection, PERLL Respiratory: chest non tender, diminished to auscultation bilaterally, coarse bases, no respiratory distress, no accessory muscle use Cardiac: irregular rate and rhythm, no rub or gallop, no murmur, no edema, no jvd GI/: active bowel sounds, no abd pain or tenderness, soft, non distended Extremities: normal range of motion, normal strength, non tender Neuro/Psych: alert and oriented x 3, normal mood and affect Skin: normal color, dry (Luna Leon ., TERRIE) Assessment and Plan 67yo C male with metastatic non-small cell carcinoma of the lung, severe oxygen dependent COPD presenting with acute on chronic hypercarbic respiratory failure requiring rescue BiPAP. Hypercarbic respiratory failure/ End stage COPD - acute on chronic. VBG initially 7.24/124/61/52. Patient's mental status improved with bipap. Currently he is on his baseline O2 requirement is 4-5L via NC at rest, and BiPAP at night and with naps. Condition most likely represents normal disease progression, patient with multiple hospitalizations over the past few months. No evidence of infection - repeat VBG was 7.39, continue bipap as patient can tolerate -Target SaO2 of 88-92% -Palliative care consult -Will continue pain management with Fentanyl patches 112mcg q 72 hours and Morphine 10mg po q 2 hours PRN -Continue Zofran ODT PRN -Bowel regimen Miralax and Colace - continue to titrate steroids - decreased prednisone to 40 mg po - can titrate further tomorrow depending on patient status -Continue DuoNebs q 4 hours scheduled -Albuterol q2 hours PRN -Continue home Symbicort -Continue home Budesonide PAF - EKG showed A.flutter with RVR 07/25- continue diltiazem and amiodarone - today patient's heart rate controlled -Continue Lovenox 120mg daily Anemia - macrocytic, history of folate deficiency. stable. No active bleeding -Continue to monitor History of PEs - remote, stable. -Continue Lovenox as above BPH - stable. continue finasteride PPx - Lovenox at home dose Code - DNR-LT Dispo - home with hospice tomorrow (Luna Leon ., TERRIE) Attending Attestation - Pt seen/examined, chart reviewed, care plan d/w TERRIE Leon. I agree w/ the thurman components of her documentation. Eating dinner - or attempting to - during the visit. He was shaky, and mildly confused (he got his daughter's name wrong during the conversation). Attempted to get patient home today w/ hospice w/o avail. vitals - HRs <100 o2 sats acceptable gen - NAD; confused; myoclonic jerks noted vs mild tremors/shakiness heart - irregular, HR<100 lungs - course BS b/l w/ rales/wheezes and decreased BS abd - distended but NT A/P: 1. acute/chronic hypoxic/hypercarbic resp failure 2. progressive stage 4 lung ca. 3. steroid-dependent end-stage COPD, currently on steroid burst but tapering such 4. a. fib/flutter w/ RVR - improved w/ amiodarone. I believe he only has days to live; WOULD D/C THE LOVENOX AT DISCHARGE 5. severe deconditioning due to all of the above 6. thrush - nystatin solution QID for comfort. 7. constipation 2nd to narcotics - ongoing 8. modest confusion - easily could be slowly rising CO2 levels home with hospice tomorrow early afternoon if any worsening overnight and he needs frequent morphine, etc could consider keeping patient in the hospital for hospice/end-of-life care/comfort care measures Leslie NICK MD (Awais Nick MD)
[2017-07-29] MEDS: TAMSULOSIN HCL 0.4 MG CAP PO SCH (21:00)
[2017-07-29] MEDS: VENLAFAXINE HCL XR 150 MG CAPXR PO SCH (21:00)
[2017-07-30] VITALS (7 sets, daily range): BP systolic 96; BP diastolic 55; PULSE 79–145; TEMP 36.7; O2SAT 90–98
[2017-07-30] MEDS: LEVALBUTEROL 1.25MG/3ML NEB INH SCH ×3 (01:40→14:25)
[2017-07-30] MEDS: NYSTATIN SUSP 500,000 U/5 ML UDC PO SCH ×2 (05:46→11:00)
[2017-07-30] MEDS: DOCUSATE SODIUM 100 MG CAP PO SCH (07:37)
[2017-07-30] MEDS: AMIODARONE 200 MG TAB PO SCH (07:37)
[2017-07-30] MEDS: GABAPENTIN 600 MG TAB PO SCH ×2 (07:37→11:11)
[2017-07-30] MEDS: SENNA 8.6 MG TAB PO SCH (07:38)
[2017-07-30] MEDS: PANTOprazole SOD 40 MG TAB PO SCH (07:38)
[2017-07-30] MEDS: FINASTERIDE 5 MG TAB PO SCH (07:38)
[2017-07-30] MEDS: GUAIFENESIN 600 MG TABCR PO SCH (07:38)
[2017-07-30] MEDS: DILTIAZEM HCL (TIAzac) 180 MG CAPCR PO SCH (07:38)
[2017-07-30] MEDS: MAGNESIUM OXIDE 400 MG TAB PO SCH (07:39)
[2017-07-30] MEDS: ENOXAPARIN 120 MG/0.8 ML SYR SQ SCH (07:39)
[2017-07-30] MEDS: BUDESONIDE/FORMOTEROL FUMARATE 160/4.5 60 PUFFS/INHALER INH SCH (07:39)
[2017-07-30] MEDS: BISACODYL 5 MG TABEC PO SCH (07:44)
[2017-07-30] MEDS: MoRPHine SULFATE 10 MG/0.5 ML UDP PO PRN ×2 (07:45→15:07)
[2017-07-30] MEDS: CHECK FENTANYL PATCH PLACEMENT SCH ×2 (07:46)
[2017-07-30] MEDS ORDERED: LORAZEPAM 0.5 MG TAB ONE (08:32)
[2017-07-30] MEDS ORDERED: NURSING VERBAL MED ORDER ONE (09:00)
[2017-07-30] MEDS ORDERED: LORAZEPAM 0.5 MG TAB SL PRN (09:00)
[2017-07-30] MEDS ORDERED: CLC100 PO (12:57)
[2017-07-30] MEDS ORDERED: RXNS10 PO (12:57)
[2017-07-30] MEDS ORDERED: ATV5 SL (12:57)
[2017-07-30] MEDS ORDERED: ENOX120I SQ (12:57)
[2017-07-30] MEDS ORDERED: DLC5 PO (12:57)
[2017-07-30] MEDS ORDERED: CRD200 PO (12:57)
[2017-07-30] MEDS ORDERED: PRD20 PO (12:57)
[2017-07-30] MEDS ORDERED: TZCSR180 PO (12:57)
--- NOTE | 2017-07-30 13:06 | Discharge Instructions ---
Discharge Instructions Date of Service Jul 30, 2017. Admission Reason for Admission: Hypercapnia Discharge Discharge Diagnosis / Problem: Acute on chronic hypercapnic and hypoxic respiratory failure Discharge Goals Goal(s): Decrease discomfort, Diagnostic testing, Therapeutic intervention Activity Recommendations Activity Limitations: as noted below Exercise/Sports Limitations: rest today Shower/Bathe: no limitations . Instructions / Follow-Up Instructions / Follow-Up You were admitted with worsening respiratory failure secondary to your severe COPD. You were treated with BiPAP, and given medications for comfort and for your high heart rate. You will be going home with hospice. Some of your medications have been discontinued in an effort to reduce the number of pills you are taking. You can choose to stop most of the other medications for the heart, and the prostate, if you choose. You can also stop the injections of Lovenox. You can take Morphine liquid and lorazepam as needed for breathlessness and anxiety. You will be followed by the home hospice agency and do not require any follow up doctor's appointments. It was so nice to take care of you. You and your family will be in my thoughts, -Dr. Meagan Pfeiffer Current Hospital Diet Patient's current hospital diet: Regular Diet Discharge Diet Recommended Diet: Regular Diet Pending Studies Studies pending at discharge: no Medical Emergencies . Who to Call and When: Medical Emergencies: If at any time you feel your situation is an emergency, please call 911 immediately. . Non-Emergent Contact Non-Emergency issues call your: Primary Care Provider (Hospice nurse) Call Non-Emergent contact if: your pain is not controlled, your pain is worsening, your pain is unusual for you, your pain is concerning you, you have any medication questions . . "Provider Documentation" section prepared by Meagan Pfeiffer. . [place] Drug Monitoring Program Search Results: patient reviewed within database, no issues identified
== END 2017-07-30 15:35 | disposition hospice, home (50) | DRG 180 ==
LOC: EDBD 09:21 → C.EDA 09:22 → C.4E 11:56 → EDBEDREQSVC 12:09 → ENRESERV 13:41
PROVIDERS: ADMIT Internal Medicine; ATTEND Family Medicine
DX: C34.90 Malignant neoplasm of unspecified part of unspecified bronchus or lung (principal); J96.22 Acute and chronic respiratory failure with hypercapnia; C79.51 Secondary malignant neoplasm of bone; C78.7 Secondary malignant neoplasm of liver and intrahepatic bile duct; I48.92 Unspecified atrial flutter; C78.00 Secondary malignant neoplasm of unspecified lung; J44.1 Chronic obstructive pulmonary disease with (acute) exacerbation; Z51.5 Encounter for palliative care; J96.21 Acute and chronic respiratory failure with hypoxia; B37.0 Candidal stomatitis; D61.810 Antineoplastic chemotherapy induced pancytopenia; Z66 Do not resuscitate; I25.10 Atherosclerotic heart disease of native coronary artery without angina pectoris; I48.0 Paroxysmal atrial fibrillation; D53.9 Nutritional anemia, unspecified; F41.9 Anxiety disorder, unspecified; N40.0 Benign prostatic hyperplasia without lower urinary tract symptoms; Z96.643 Presence of artificial hip joint, bilateral; K59.03 Drug induced constipation; Z87.891 Personal history of nicotine dependence; Z99.81 Dependence on supplemental oxygen; Z87.01 Personal history of pneumonia (recurrent); Z79.52 Long term (current) use of systemic steroids; Z86.711 Personal history of pulmonary embolism; Z80.9 Family history of malignant neoplasm, unspecified